=== PATIENT | female | born 1950 | race Caucasian/White ===

== ENCOUNTER 2016-10-30 22:57 | Emergency (ER) | payer MEDICARE, OTHER, SELFPAY ==
[2016-10-30 22:58] VITALS: BP 82/54; PULSE 65; RESP 18; TEMP 35.9; O2SAT 94; BMI 36.6
[2016-10-30 23:03] VITALS: BP 97/52
--- NOTE | 2016-10-30 23:08 | RAD_ITS ---
STUDY: X-RAY - LEFT WRIST REASON FOR EXAM: Female, 66 years old. Trauma. Left wrist pain TECHNIQUE: 3 view(s) of the wrist were obtained. COMPARISON: None. FINDINGS: Displaced comminuted fracture of the distal end of radius is noted.There is possibly a fracture line extending to the articular surface. There is also displaced fracture of the distal metaphysis of the ulna. The soft tissue structures are unremarkable. There is marked demineralization of the osseous structures. RAD/Wrist min 3 Views IMPRESSION: Displaced comminuted fracture of the distal end of radius is noted. There is possibly a fracture line extending to the articular surface. There is also displaced fracture of the distal metaphysis of the ulna. Electronically Signed: Matheus Monge MD at 23:43 EDT Tel , Service support ,
[2016-10-30] MEDS: 0.9% Normal Saline 1,000 ML 999 ML IV (23:22)
--- NOTE | 2016-10-31 00:22 | ED.DEP ---
ED Disposition - Plan for ED Patient: Chief Complaint: Upper Extremity Injury Instructions: ED Fx Colles Wrist Redu Requ Prescriptions: Oxycodone HCl/Acetaminophen [Percocet 5/325] 1 tablet PO Q6H PRN PRN #20 tablet PRN Reason: Pain Referrals: Kishan Espinal Chi, MD [Primary Care Provider] - Logan Portillo MD [STAFF PHYSICIAN] - As soon as possible
[2016-10-31] MEDS: Ondansetron 4 MG/2 ML Vial IV (00:33)
--- NOTE | 2016-10-31 00:43 | RAD_ITS ---
STUDY: X-RAY - LEFT WRIST REASON FOR EXAM: Female, 66 years old. post reduction left wrist TECHNIQUE: 2 view(s) of the wrist were obtained. COMPARISON: None. FINDINGS: There is improved alignment at the fracture sites of the ulna and radius. The soft tissue structures are unremarkable. RAD/Wrist 2 Views IMPRESSION: There is improved alignment at the fracture sites of the ulna and radius. Electronically Signed: Matheus Monge MD at 1:43 EDT Tel , Service support ,
[2016-10-31 01:46] VITALS: BP 113/56; PULSE 62; RESP 19; O2SAT 97
--- NOTE | 2016-10-31 04:18 | EDS_ITS ---
DATE OF SERVICE: 10/30/2016 CHIEF COMPLAINT: Wrist injury. HISTORY: This is a 66-year-old female who was out drinking alcohol tonight and dancing. She fell and injured her left wrist. She did not hit her head or injure herself in any other way. PHYSICAL EXAMINATION: VITAL SIGNS: Blood pressure is 97/52. Other vitals are unremarkable. She appears intoxicated, but she is alert and cooperative. She is pleasant. EXTREMITIES: There is an obvious deformity to the left wrist, but the skin is closed. No lacerations. Neurovascularly, she is intact in the hand, limited range of motion obviously due to the injury. No pain in the wrist or shoulder. CLINICAL COURSE AND DECISION MAKING: She was given fentanyl as well as Zofran, and x-ray of the wrist confirms a comminuted displaced fracture of the radius and ulna distally. Hematoma block was attempted using lidocaine and bupivacaine, and did achieve adequate anesthesia to do a bedside closed reduction. There was moderate improvement in the bony alignment. She was placed in an AP short arm splint. Sling was applied and she was given a prescription for oxycodone. The case was discussed with Dr. Chambers as the patient has a history of Dr. Portillo. She will call Dr. Portillo first thing in the morning for followup and does understand that she may likely require surgical repair. DISPOSITION: Discharge. DIAGNOSIS: Closed fracture of the distal ulna and radius comminuted with displacement. MD Rommel Hsieh C: Dr. Portillo T: [facility] JOB: [id number]
== END 2016-10-31 01:47 | disposition home or self-care (01) ==
PROVIDERS: Emergency Provider Emergency Medicine; Family Provider Family Medicine Geriatric Medicine; PCP Family Medicine Geriatric Medicine
DX: S52.502A Unspecified fracture of the lower end of left radius, initial encounter for closed fracture (principal); S52.692A Other fracture of lower end of left ulna, initial encounter for closed fracture; W18.30XA Fall on same level, unspecified, initial encounter; Y93.41 Activity, dancing; Y92.9 Unspecified place or not applicable; F10.129 Alcohol abuse with intoxication, unspecified; K21.9 Gastro-esophageal reflux disease without esophagitis; J44.9 Chronic obstructive pulmonary disease, unspecified; G47.33 Obstructive sleep apnea (adult) (pediatric); F41.9 Anxiety disorder, unspecified; F32.9 Major depressive disorder, single episode, unspecified; Z87.891 Personal history of nicotine dependence; Z79.899 Other long term (current) drug therapy
CPT/HCPCS: 25605; 73100; 73110; 96361; 96374; 96375; 96376; 99283; J7030; A4216; J2405

== ENCOUNTER → 2017-11-16 11:48 | Outpatient (CLI) | payer MEDICARE, OTHER, SELFPAY ==
[2017-11-16 12:26] LABS: Absolute Neutrophil Count 3.7 X10^3/uL (2.0-7.7); Basophil# 0.03 X10^3/uL; Basophil% 0.5 % (0-1); Eosinophil# 0.04 X10^3/uL; Eosinophils% 0.6 % (0-5); Hematocrit 41.4 % (37-47); Hemoglobin 13.6 g/dl (12.0-15.0); Lymphocyte % 36.4 % (19-41); Mean Corp Hgb Conc 32.9 g/gl (32-36); Mean Corpuscular Hgb 27.8 pg (27.0-32.0); Mean Corpuscular Volume 84.5 fL (81-99); Mean Platelet Vol. 10.3 fl (6.2-12.0); Monocyte% 6.1 % (0-10); Neutrophil # 3.72 X10^3/uL (2.7-7.7); Neutrophil % 56.2 % (47-70); Platelet Count 315 K/mm3 (150-450); RBC Distribution Width CV 14.7 % (11.6-14.6); RBC Distribution Width SD 44.4 fl (35.1-43.9); White Blood Count 6.6 K/mm3 (4.4-11.0)
[2017-11-16 12:31] LABS: POSITIVE COUNT NO; POSITIVE DIFFERENTIAL NO; POSITIVE MORPHOLOGY NO
[2017-11-16 12:55] LABS: AST(SGOT) 23 U/L (15-37); Alanine Aminotransfer ALT/SGPT 19 U/L (13-56); Albumin, Serum 3.7 g/dL (3.2-5.0); Alkaline Phosphatase 111 U/L (45-117); Anion Gap 5 (5-15); BUN 15 mg/dL (7-18); BUN/Creat Ratio 17.1 RATIO (10-20); Calcium,Total 9.2 mg/dL (8.5-10.1); Chloride 106 mmol/L (98-107); Creatinine, Serum 0.88 mg/dL (0.55-1.02); EST Glomerular Filtration Rate 68 mL/min (>60); Est Glom Filt Rate - Afr Amer 82 mL/min (>60); Globulin 3.6 g/dL (2.2-4.2); Glucose 90 mg/dL (74-106); Potassium 4.6 mmol/L (3.5-5.1); Protein, Total 7.3 g/dL (6.4-8.2); Sodium Level 139 mmol/L (136-145); Thyroid Stim Hormone (TSH) 2.52 uIU/mL (0.358-3.74)
[2017-11-16 12:59] LABS: Vitamin D,25 Hydroxy 43.5 ng/mL (29.95-100.01)
[2017-11-17 09:23] LABS: Hep C Antibodies <0.1 s/co ratio (0.0-0.9)
== END ==
PROVIDERS: Family Provider Family Medicine Geriatric Medicine; PCP Family Medicine Geriatric Medicine; Visit Provider Family Medicine Geriatric Medicine
DX: E55.9 Vitamin D deficiency, unspecified (principal); R53.83 Other fatigue; Z13.89 Encounter for screening for other disorder
CPT/HCPCS: 36415; 80053; 82306; 84443; 85025; 86803

== ENCOUNTER 2017-12-07 08:30 | Outpatient (RCR) | payer MEDICARE, OTHER, SELFPAY ==
--- NOTE | 2017-12-07 15:04 | BH.SGPN_ITS ---
Service Group Progress Note - Session Psychotherapy Session #2 Date Open:: 12/07/17 - 10 group members Time Started:: 10:20 Time Stopped:: 11:15 Targeted Problem #:: 1 Type of Group:: Illness Management Goal of Group:: To increase understanding of resilience and identify the factors that contribute to building resilience. Client Response/Progress/Benefit:: Client responded well to session, active group member. Client connected with the quote stating, the oak tree seems stronger, but being rigid can make you break. Client reported resilience is being able to grow and overcome difficult times. Client reflected on the activity sharing life throws a lot of stuff at you at once, but reported one can learn to be resilient. Client helped the group identify and process factors that contribute to building resilience such as living to learn and having self- awareness. Client reported acceptance is also bishop in building resilience as we can't change things, but we can move on. Client became tearful while sharing her path to acceptance with having to use a cane. The group helped client realize that acceptance is not approval. Client appeared to benefit from increased awareness of the factors of resilience and how they impact mental health. Limited progress as it is client's first day. To continue IOP to prevent decompensation and reduce depressive symptoms. Eye Contact:: Good Motor Activity:: Appropriate Appearance:: Neat Speech:: Appropriate Mood:: Anxious Affect:: Congruent - became tearful Thoughts:: Linear, No evidence of hallucinations/delusions noted Staff Interventions:: Therapist led group in an activity that would induce a chaotic environment and used the activity as a tool in discussing the various stressors people are faced with each day. Therapist facilitated group discussion about resilience and explained the factors of building resilience. Therapist led discussion about factors that contribute to resilience. Therapist provided support by using active listening and providing feedback.
--- NOTE | 2017-12-07 15:46 | BH.DR.ITP ---
Initial Treatment Plan - Patient Information Visit Information: ADMISSION DATE: EXPECTED LOS: 4-6 weeks Diagnoses:: Major depressive disorder F 33.1 - Problems/Symptoms Problem #1:: Depression Symptom:: mood, anhedonia, decreased energy, biologic disruption of sleep and appetite Problem #2:: Anxiety Symptom:: Rumination, panic
--- NOTE | 2017-12-07 15:50 | BH.SGPN ---
Service Group Progress Note - Session Psychotherapy Session #1 Date Open:: 12/07/17 Time Started:: 09:10 Time Stopped:: 10:10 Targeted Problem #:: 1 Type of Group:: Process - 10 group members Goal of Group:: The goal of today's group was to check-in with client's mood, stressors, and positives, review homework and introduce topic for the day. Client Response/Progress/Benefit:: Client reported she has been depressed and anxious for years. Client shared she goes through times in which she will take her medications consistently then when feels better stops taking her medications. Reported typically when she goes off her medications is when she starts struggling again. Client shared she knew she needed help for some time, but has been putting it off to help others but now recognizes she needs to take time to help herself. client seemed to benefit from expressing thoughts and feelings as well as support recieved by peers. First day in IOP. Eye Contact:: Fair Motor Activity:: Restless Appearance:: Casual Speech:: Appropriate Mood:: Anxious, Depressed Affect:: Congruent Thoughts:: Linear, Logical, No evidence of hallucinations/delusions noted Staff Interventions:: Therapist used open-ended questions to elicit information about client's current stressors and mood state. Therapist was supportive by using active listening and reflection.
--- NOTE | 2017-12-08 10:44 | BH.SGPN ---
Service Group Progress Note - Session Psychotherapy Session #1 Date Open:: 18 - 6 group members Time Started:: 09:05 Time Stopped:: 10:20 Targeted Problem #:: 1 Type of Group:: Process Goal of Group:: The goal of today's group was to check-in with client's mood, stressors, and positives, and introduce topic for the day. Client Response/Progress/Benefit:: Client responded well to session, open to feedback and support from peers. Client reports feeling overwhelmed today as she wants to be here but doesn't want to be here. Client shared it takes everything in her to not stay in bed all day. Client stated her bedroom is her sanctuary and while it brings her comfort, it leads to depression, avoidance, and anxiety. Client became tearful while talking about her son, mental health, and lashing out at her . Client reported struggling with guilt and feeling like she should just get over her depression. The group helped client recognize that just because mental health is invisible does not mean it is not real. Client expressed connecting with therapist's comparison of mental health to physical health conditions like diabetes. Client shared it helped her look at it different and be more accepting that she can learn to cope with it. Client appeared to benefit from challenging the mental health stigma and receiving supportive statements. Limited progress as it is client's second day. To continue IOP to prevent decompensation and promote mood stability. Eye Contact:: Good Motor Activity:: Appropriate Appearance:: Neat Speech:: Rapid Mood:: Anxious, Dysthymic Affect:: Congruent - tearful throughout Thoughts:: Circular, No evidence of hallucinations/delusions noted Staff Interventions:: Therapist used open-ended questions to elicit information about client's current stressors and mood state. Therapist was supportive by using active listening and reflection.
--- NOTE | 2017-12-08 11:45 | BH.COMM ---
Communication Note - Communication with Client Communication Note: This therapist followed up with client to build rapport and inform client that therapist will be client's individual counselor while in IOP. Client was receptive and agreed to meet for an individual session next week.
--- NOTE | 2017-12-08 14:47 | BH.SGPN_ITS ---
Service Group Progress Note - Session Psychotherapy Session #2 Date Open:: 12/08/17 Time Started:: 10:24 Time Stopped:: 11:14 Targeted Problem #:: 1 Type of Group:: Illness Management - 6 participants Goal of Group:: To increase understanding of fear and explore the negative impact fear of failure can have on mental health and decision making. Client Response/Progress/Benefit:: Client responded well to session and was an active participant throughout. She did well to connect with the group topic of Fear of Failure and discussed how she defines failure. CLient indicated that to her failure is when she does not meet her own expectations. She discussed that during times in which she feels she has failed she tends to avoid others and isolate. CLient benefitted from working to process ways in which our perception of failure can impact mental health and how to begin redefining how we view failures. Client displayed progress as she was able to openly engage with fellow participants despite this being her first full day in the program. Recommended continuing with IOP to increase insight and understanding of, as well as ability to manage mental health symptoms. Eye Contact:: Good Motor Activity:: Appropriate Appearance:: Casual Speech:: Appropriate Mood:: Anxious Affect:: Congruent Thoughts:: Linear, Logical, No evidence of hallucinations/delusions noted Staff Interventions:: Therapist facilitated discussion about fear and impact fear of failure can have. Therapist led group in an experiential activity in which client?s would fail numerous times throughout, but were given the opportunity to try again. Therapist led the processing of the activity and assisted clients with connecting how fear of failure impacted their decision making during the activity. Psychotherapy Session #3 Date Open:: 12/08/17 Time Started:: 11:21 Time Stopped:: 12:17 Targeted Problem #:: 1 Type of Group:: Functional Skills Development - 7 participants Goal of Group:: To identify the impact fear of failure has had on the group members lives and identify strategies to overcome fear of failure. Client Response/Progress/Benefit:: Client again did well to engage in session and was a positive participant throughout. She appeared to benefit from participating in the group activity as this challenged client to confront potential failure and process this with the group. She was able to reframe her negative thoughts and overcome self doubt with encouragement from fellow participants. CLient displaying progress in her willingness to try to challenge negative thinking during the activity and make connections to doing so in her daily life. Recommended continued IOP to maintain stability and continue to work on developing healthy stress management skills and boundaries. Eye Contact:: Good Motor Activity:: Appropriate Appearance:: Casual Speech:: Appropriate Mood:: Anxious, Dysthymic Thoughts:: Linear, Logical, No evidence of hallucinations/delusions noted Staff Interventions:: Therapist provided each group member with a worksheet to complete that asked questions about their experiences with fear of failure. Therapist led the processing of the worksheet, helping client?s connect how fear of failure has impacted them. Therapist provided support by using active listening and providing feedback.
== END 2017-12-08 23:59 ==
LOC: BHIOP 08:30
PROVIDERS: Family Provider Family Medicine Geriatric Medicine; PCP Family Medicine Geriatric Medicine; Visit Provider Psychiatry & Neurology Psychiatry
DX: F33.1 Major depressive disorder, recurrent, moderate (principal); F41.9 Anxiety disorder, unspecified
CPT/HCPCS: H0035; 90853

== ENCOUNTER 2017-12-09 08:59 | Outpatient (RCR) | payer MEDICARE, OTHER, SELFPAY ==
--- NOTE | 2017-12-09 11:46 | PCM.HP.BLA ---
History and Physical Identifying information Patient is a 67-year-old female who presents to the behavioral medicine [facility] with chief complaint of depression and anxiety. History is been obtained per interview with patient, discussion with staff, review of chart. Records reviewed including records from adult geriatrics [facility]. Case discussed with treatment team. History of present illness Patient is a 67-year-old female with a long-standing history of intermittent depression and anxiety. She reports her depression has overall been persistent and worse over the past 2 years associated with limitations due to femur and pelvic fracture from a fall. She feels it has been exacerbated over the past few weeks. She admits to sporadic medication compliance. She has been noncompliant with all of her medications over the past 2 weeks including her antidepressant. Her mood symptoms are likely further exacerbated by uncontrolled sleep apnea. She has multiple stressors and notes that she is providing care for her 24-year-old grandson who has special needs. She has discord with her [id number]-law. Her son is in [place] [facility]. She endorses a depressed mood with anhedonia, crying spells, decreased energy, and difficulty concentrating. She reports irritability and anger particularly toward her ga-vrehjaux-[id number]-law for her minimal involvement in caretaking of her grandson. Her appetite is been increased and she endorses emotional eating. She has a history of gastric bypass. She has been staying in bed during the day due to lack of energy and no one bothers me. She goes to bed at night at 11 PM and gets out of bed at 5:30 AM in the morning her sleep is interrupted. She has severe sleep apnea which is untreated. She has had a previous sleep study CPAP titration was unsuccessful. She requires further evaluation for BiPAP. She has ruminative anxiety about her multiple stressors she endorses panic attacks 1-2 times per week in which she feels short of breath with chest pressure and heart palpitations. She acknowledges some obsessive-compulsive traits stating that is difficult for her to throw things away. She denies suicidal or homicidal ideation. She denies symptoms consistent with psychosis. She denies history consistent with a discrete episode of milena. Past psychiatric history Denies previous history of suicide attempts or self-harm. Denies previous psychiatric hospitalization. Does not currently have a psychiatrist or therapist. Substance use history Consumes 3 alcoholic drinks per week. Quit smoking cigarettes 3 years ago. Denies illicit drug use. Past medical history Gastric bypass-lost more than 180 pounds but has gained 60 pounds back. Femur and pelvis fracture 2 years ago Fracture left arm October 2016 Denies history of seizure or head injury Allergies Vicodin causes itching Current medications None-patient currently medication noncompliant Previous medications included Cymbalta 60 mg daily, phentermine 37.5 mg daily, Ativan 1 mg and multiple vitamin supplements due to gastric bypass Family medical psychiatric history Brother completed suicide 1973 Sister with depression and anxiety 2 sons with depression Mother in 1974 from cancer and CVA Developmental social history Patient was born and raised in [facility]. She is the youngest of 4 children. 2 older brothers and 1 older sister. She graduated from high school. She completed [employer] school. 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 She currently lives in [place] with her ex- and special needs grandson age 24. She has 2 sons one age 49 and 1 age 43. One son is in [place] [facility]. Legal history none Mental status exam Vital signs reviewed per nursing database and discussed with nursing. Alert and oriented . No acute distress. Ambulatory with limping gait and cane. Appears stated age. Casually dressed and groomed. Appropriate hygiene. Cooperative with interview. Good eye contact. No psychomotor agitation or retardation. Mood depressed. Affect congruent. Speech is clear and with regular rate and rhythm. Language fluent. Thought process organized. Associations logical. Thought content significant for ruminative anxiety and themes of depression. No suicidal or homicidal ideation related or detected.. No symptoms consistent with psychosis noted or detected. Immediate recent and remote memory grossly intact. Attention and concentration are fair. Estimated intelligence and fund of knowledge average. Judgment and insight fair. Labs and testing. Lab work will be requested from Dr. Cota. Further lab work will be obtained as needed. Diagnosis Major depressive disorder recurrent moderate F 33.1 Anxiety unspecified Personality disorder Obstructive sleep apnea untreated Plan Admit to IOP as the structured setting is necessary to prevent decompensation. Risks benefits alternatives of medications discussed with patient. Discussed resistance to medications. Patient agrees to start Cymbalta 30 mg daily. Meds #30 with 1 refill. Encouraged to resume vitamins necessary due to gastric bypass. Recommend avoiding benzodiazepines given history of patient's gait instability and sleep apnea. Recommend follow-up for further sleep study and BiPAP titration. Recommend follow-up with primary care physician Dr. Cota. Recommend establishing with outpatient psychiatric providers for when IOP complete. She acknowledges understanding and is in agreement with plan. Is able to maintain safety. Agrees to seek help or emergency care if feeling unsafe to self or others.
--- NOTE | 2017-12-09 12:10 | HP.PCM_ITS ---
History and Physical Identifying information Patient is a 67-year-old female who presents to the behavioral medicine [facility] with chief complaint of depression and anxiety. History is been obtained per interview with patient, discussion with staff, review of chart. Records reviewed including records from adult geriatrics [facility]. Case discussed with treatment team. History of present illness Patient is a 67-year-old female with a long-standing history of intermittent depression and anxiety. She reports her depression has overall been persistent and worse over the past 2 years associated with limitations due to femur and pelvic fracture from a fall. She feels it has been exacerbated over the past few weeks. She admits to sporadic medication compliance. She has been noncompliant with all of her medications over the past 2 weeks including her antidepressant. Her mood symptoms are likely further exacerbated by uncontrolled sleep apnea. She has multiple stressors and notes that she is providing care for her 24-year-old grandson who has special needs. She has discord with her lm-[id number]-hj-law. Her son is in penit[facility]. She endorses a depressed mood with anhedonia, crying spells, decreased energy, and difficulty concentrating. She reports irritability and anger particularly toward her ex- [id number]-lsk for her minimal involvement in caretaking of her grandson. Her appetite is been increased and she endorses emotional eating. She has a history of gastric bypass. She has been staying in bed during the day due to lack of energy and no one bothers me. She goes to bed at night at 11 PM and gets out of bed at 5:30 AM in the morning her sleep is interrupted. She has severe sleep apnea which is untreated. She has had a previous sleep study CPAP titration was unsuccessful. She requires further evaluation for BiPAP. She has ruminative anxiety about her multiple stressors she endorses panic attacks 1 -2 times per week in which she feels short of breath with chest pressure and heart palpitations. She acknowledges some obsessive-compulsive traits stating that is difficult for her to throw things away. She denies suicidal or homicidal ideation. She denies symptoms consistent with psychosis. She denies history consistent with a discrete episode of milena. Past psychiatric history Denies previous history of suicide attempts or self-harm. Denies previous psychiatric hospitalization. Does not currently have a psychiatrist or therapist. Substance use history Consumes 3 alcoholic drinks per week. Quit smoking cigarettes 3 years ago. Denies illicit drug use. Past medical history Gastric bypass-lost more than 180 pounds but has gained 60 pounds back. Femur and pelvis fracture 2 years ago Fracture left arm October 2016 Denies history of seizure or head injury Allergies Vicodin causes itching Current medications None-patient currently medication noncompliant Previous medications included Cymbalta 60 mg daily, phentermine 37.5 mg daily, Ativan 1 mg and multiple vitamin supplements due to gastric bypass Family medical psychiatric history Brother completed suicide 1973 Sister with depression and anxiety 2 sons with depression Mother in 1974 from cancer and CVA Developmental social history Patient was born and raised in [facility]. She is the youngest of 4 children. 2 older brothers and 1 older sister. She graduated from high school. She completed [employer]. 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 She currently lives in [place] with her ex- and special needs grandson age 24. She has 2 sons one age 49 and 1 age 43. One son is in penitentiary. Legal history none Mental status exam Vital signs reviewed per nursing database and discussed with nursing. Alert and oriented . No acute distress. Ambulatory with limping gait and cane. Appears stated age. Casually dressed and groomed. Appropriate hygiene. Cooperative with interview. Good eye contact. No psychomotor agitation or retardation. Mood depressed. Affect congruent. Speech is clear and with regular rate and rhythm. Language fluent. Thought process organized. Associations logical. Thought content significant for ruminative anxiety and themes of depression. No suicidal or homicidal ideation related or detected.. No symptoms consistent with psychosis noted or detected. Immediate recent and remote memory grossly intact. Attention and concentration are fair. Estimated intelligence and fund of knowledge average. Judgment and insight fair. Labs and testing. Lab work will be requested from Dr. Cota. Further lab work will be obtained as needed. Diagnosis Major depressive disorder recurrent moderate F 33.1 Anxiety unspecified Personality disorder Obstructive sleep apnea untreated Plan Admit to IOP as the structured setting is necessary to prevent decompensation. Risks benefits alternatives of medications discussed with patient. Discussed resistance to medications. Patient agrees to start Cymbalta 30 mg daily. Meds #30 with 1 refill. Encouraged to resume vitamins necessary due to gastric bypass. Recommend avoiding benzodiazepines given history of patient's gait instability and sleep apnea. Recommend follow-up for further sleep study and BiPAP titration. Recommend follow-up with primary care physician Dr. Cota. Recommend establishing with outpatient psychiatric providers for when IOP complete. She acknowledges understanding and is in agreement with plan. Is able to maintain safety. Agrees to seek help or emergency care if feeling unsafe to self or others.
--- NOTE | 2017-12-09 12:28 | BH.DR.ITP ---
Initial Treatment Plan - Patient Information Visit Information: ADMISSION DATE: EXPECTED LOS: 4-6 weeks Diagnoses:: Major depressive disorder F 33.1 - Problems/Symptoms Problem #1:: Depression Symptom:: Mood, anhedonia, decreased energy, biologic disruption of sleep and appetite Problem #2:: Anxiety Symptom:: Rumination, panic
--- NOTE | 2017-12-09 13:45 | BH.NA_ITS ---
Physical Data - Height/Weight Height: 1.52 m Weight:: 85.275 kg Weight in Pounds: 188.0 lbs Current Medication Compliance - Medication Compliance Do you take your medication as prescribed?: No Do you need assistance with taking medication?: No Have you had side effects from medication?: No Nutritional History - Appetite Nutritional Instructions:: If client shows signs of a swallowing problem, weight change of 10 pounds or more in the last month, or is on a diabetic diet, the physician will review and request a dietitian consult, as appropriate. All unintentional weight loss will be referred to the physician for decision on need for dietitian consult. Describe your appetite:: Good Have you noticed a change in your eating habits lately?: Yes - increased appetite and weight recently Functional Assessment - Sleep Pattern Describe any problems with sleeping: Difficulty staying asleep associated with rumination and untreated JIMMY. - Activities Motor Activity:: Functional Sensory/Communication Assess - Dental Problems Do you have any dental problems?: Partial dentures - Vision Problems Do you have any vision problems?: Glasses - Hearing Problems Do you have any hearing problems?: Adequate - Communication Problems Do you have difficulty understanding what people are saying?: No Do you have trouble putting your thoughts into words or expressing what you want to say?: No Do people ever have trouble understanding what you say?: No What is your primary language?: Togolese Learning Assessment - Learning Barriers Learning Barriers:: Ready to learn Medical Problems/History - Respiratory Conditions Respiratory: Other (See comments) - JIMMY-untreated - Metabolic Conditions Metabolic: Other (See comments) - vitamin D deficiency - Gastrointestinal Conditions Gastrointestinal: Dyspepsia - GERD - Musculoskeletal Conditions Musculoskeletal: Other (See comments) - osteoporosis - Pain Assessment Do you have acute or chronic pain?: Yes - Female Reproductive Do you think you may be ?: No Have you reached menopause?: Yes Surgical History - Surgical History Have you had any surgeries? If so, list type and date:: Yes - multiple ortho surgeries d/t pathological fxs, gastric bypass in late Substance Abuse - Substance Abuse Please describe substance abuse in the last 30 days:: Client notes alcohol use of 3-4 drinks/week. She is former tobacco/nicotine user. Denies current or former illicit substance use. Caffiene use of 3+ drinks/day. Mental Status Summary - Mental Status Significant Findings/Observations on Appearance and Mood:: Client is A&Ox4, cooperative with interview. She has normal activity and makes good eye contact. Appropriate grooming and hygiene, casually dressed. Speech is clear and of regular rate and volume. Moderate depression and mild anxiety. Labile mood. Tangential associations. Racing process. Average knowledge, limited insight, impaired judgement. No symptoms of delusions. Denies hallucinations and HI. Denies SI, but does have intermittent passive thoughts of . Suicide Assessment - Suicidal Ideation Are you currently or have you been suicidal in the past?: No Physician Notification: If Active suicidal thoughts/Will not contract for safety is checked, contact physician and document in the Physician Notification section below. Assault History/Potential - History of Assault Do you have a history of assaulting someone?: No Physician Notification: If yes, notify physician and document notification date and time below. Past Psychiatric History - Treatment Hx Describe (age, circumstance, etc) any past hospitalizations: N/A Fall Risk Assessment - Age Age: 60-70 - Mental Status Mental Status: Willing & able to ask for assistance when needed - Physical Status Physical Status: No problems - Impairments Impairments: None - Elimination Elimination: Continent AND independent - Gait or Balance Gait or Balance: Walks with assistive device (e.g. cane, walker) - Hx of Falls History of falls in the past 6 months: Has fallen - Medications/Substances Medications/substances used within the past 24 hours or ordered to administer: None of the medications/substances list above - Total Score Total Points:: 4 Physician Notification - Physician Notification Physician Notified: Alysha Padilla Method of Notification: Face to Face Comments: treatment planning and condition discussion RN Summary of Impressions - Impressions Recommendations: Include psychiatric and medical issues, treatment planning recommendations, and discharge planning needs. Impressions: Psychiatric Issues: MDD, personality d/o, bipolar d/o? Impression: Medical Issues: osteoporosis, GERD, JIMMY Impressions: Treatment Planning Recommendations: high fall risk, caution with physical activities - Level of Care How do the client's current symptoms and functional deficits support need for this level of care?: Client's depressive symptoms have been decompensating gradually for approximately 2 years since the patient broke her pelvis which caused her ambulatory problems and pain. She has multiple chronic medical conditions including untreated obstructive sleep apenea and osteoporosis with pathological fractures. She has the added stressor of often having to care for her grandson who has special needs. Tasneem describes increased isolative behaviors and passive thoughts of recently. She has had a decline in her performance of ADL's and increased hoarding activity. IOP will promote gains and provide socialization while preventing further decompensation.
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
--- NOTE | 2017-12-09 14:35 | BH.COMM ---
Communication Note - Communication with Client Communication Note: This therapist followed up with client to establish treatment goals. Client reported she would like to maintain medication compliance, increase socialization, and reduce mental health symptoms.
--- NOTE | 2017-12-09 14:39 | BH.SGPN ---
Service Group Progress Note - Session Psychotherapy Session #1 Date Open:: 12/09/17 Time Started:: 09:08 Time Stopped:: 09:59 Targeted Problem #:: 1 Type of Group:: Process Goal of Group:: The goal of today's group was to check-in with client's mood, stressors, and positives, review homework and introduce topic for the day. Client Response/Progress/Benefit:: Client reported this morning her grandson was being difficult because he did not want to go home with his mother this weekend. Client shared when she called her grandson's mother to let her know how the grandson was acting this morning the grandson's mother shown no empathy or care. Client reported her grandson's mother's reaction resulted in client feeling extremely angry and going off on grandson's mother. Client expressed anger towards her grandson's mother for not being there for her grandson did not always relying on client to take care of the grandson. Throughout checking client had a range of emotions including mad, angry, sad, tearful. Seemed to benefit from expressing thoughts and emotions as well as receiving support from peers. Eye Contact:: Fair Motor Activity:: Restless Appearance:: Casual Speech:: Rambling Mood:: Anxious, Irritable, Depressed Affect:: Labile Thoughts:: Linear, Circular, No evidence of hallucinations/delusions noted Staff Interventions:: Therapist used open-ended questions to elicit information about client's current stressors and mood state. Therapist was supportive by using active listening and reflection.
--- NOTE | 2017-12-09 14:39 | BH.MTP ---
[facility] - Patient Information Program Physician:: Alysha Padilla Primary Therapist:: Sandie Contreras - Psychiatric Diagnoses Psychiatric Diagnoses:: Major depressive disorder; Anxiety unspecified; Personality disorder Diagnosis Code(s):: F 33.1 - Estimated LOS Estimated LOS (in weeks):: 6 Problem/Goal #1 - Problem/Goal #1 Stated Goal:: Client will decrease depressive symptoms, isolation, and agitation due to Major Depressive Disorder through Intensive Outpatient Program. Description of Barriers: Client reports family discord which impacts client's emotional well-being and causes client significant stress and anger. Client shared having a difficult time setting boundaries and communicating her needs which has led to client feeling overwhelmed. Client reports struggling to accept things that are out of her control and has verbalized unrealistic expectations for her mental health. Client has physical limitations and health concerns such as uncontrolled sleep apnea. In the past client has not been medication compliant and reports procrastinating with medical appointments which could have an impact her progress and health. Functional Impact: At admission client reported a long-standing history of depression and anxiety. Client reports depressive symptoms have been worse over the past two years due to physical limitations caused by a femur and pelvic fracture. Client reports numerous stressors including family discord and caregiving for her 24-year-old grandson. At admission client endorsed a depressed mood with anhedonia, crying spells, decreased energy, and isolation. Clients isolation, avoidance, and procrastination impact her mental and physical health as they lead to lack of follow through with appointments. Client shared increased irritability and anger outbursts which client describes as I get nasty. Client reports increased appetite caused by emotional eating and reports consumption of 3 alcoholic beverages per week. Client states poor sleep due to uncontrolled sleep apnea. Client has ruminative anxiety and endorses panic attacks 1-2 times per week in which she feels short of breath with chest pressure and heart palpitations. Client acknowledges some obsessive-compulsive traits including hoarding, client stated I just cant throw things away. Client reports her symptoms impact her ability to function at her baseline, complete ADLs, and engage in activities she once enjoyed. Goal Relevant Strengths/Supports: Client is compassionate, a caregiver, and resilient. Client reports having a strong support system in her live-in ex- and is highly active with [employer]. Client has a good sense of humor, reports trying to think positively, and is receptive to mental health help. Client appears engaged in her treatment and reports motivation to get better which can serve as a protective factor. - Objectives Objective #1 Stated Objective: Client will identify close relationships and create 2-3 ways to establish healthier boundaries to better manage these relationships with children and other family members that exacerbate mental health symptoms. Interventions: Through group and individual sessions, client will learn about healthy boundaries and how they impact mental health. Therapist will discuss strategies with client to improve boundaries and promote mental wellness. Therapist will utilize decisional balance worksheets to help client increase awareness of how client's personal boundaries are impacting functioning. Discharge Criteria: Client will have accomplished this goal when can report utilizing at least 2 strategies to promote healthy boundaries and report improved interpersonal relationships. Target Date: 01/18/18 Review Date: 01/06/18 Status: open Objective #2 Stated Objective: Client will identify 2-3 triggers for depression and negative self-talk and 2-3 coping strategies to use when feeling overwhelmed to prevent isolation. Interventions: Through groups and individual therapy, client will be provided with education on cognitive distortions, mistaken beliefs, and identifying and combating negative self-talk. Therapist will help client explore connection between thoughts, feelings, and actions. Therapist will also help client gain more awareness of client's personal triggers and warning signs for depressive while teaching client healthy coping skills. Discharge Criteria: Client will have accomplished this goal when can report 2-3 triggers for depression and negative self-talk and state utilizing at least 2 coping strategies to manage these symptoms and prevent isolation. Target Date: 01/18/18 Review Date: 01/06/18 Status: open Problem/Goal #2 - Problem/Goal #2 Stated Goal:: Client will reduce overall frequency, intensity, and duration of anxiety and panic so that daily functioning is not impaired. Description of Barriers: Client reports family discord which impacts client's emotional well-being and causes client significant stress and anger. Client shared having a difficult time setting boundaries and communicating her needs which has led to client feeling overwhelmed. Client reports struggling to accept things that are out of her control and has verbalized unrealistic expectations for her mental health. Client has physical limitations and health concerns such as uncontrolled sleep apnea. In the past client has not been medication compliant and reports procrastinating with medical appointments which could have an impact her progress and health. Functional Impact: At admission client reported a long-standing history of depression and anxiety. Client reports depressive symptoms have been worse over the past two years due to physical limitations caused by a femur and pelvic fracture. Client reports numerous stressors including family discord and caregiving for her 24-year-old grandson. At admission client endorsed a depressed mood with anhedonia, crying spells, decreased energy, and isolation. Clients isolation, avoidance, and procrastination impact her mental and physical health as they lead to lack of follow through with appointments. Client shared increased irritability and anger outbursts which client describes as I get nasty. Client reports increased appetite caused by emotional eating and reports consumption of 3 alcoholic beverages per week. Client states poor sleep due to uncontrolled sleep apnea. Client has ruminative anxiety and endorses panic attacks 1-2 times per week in which she feels short of breath with chest pressure and heart palpitations. Client acknowledges some obsessive-compulsive traits including hoarding, client stated I just cant throw things away. Client reports her symptoms impact her ability to function at her baseline, complete ADLs, and engage in activities she once enjoyed. Goal Relevant Strengths/Supports: Client is compassionate, a caregiver, and resilient. Client reports having a strong support system in her live-in ex- and is highly active with [employer]. Client has a good sense of humor, reports trying to think positively, and is receptive to mental health help. Client appears engaged in her treatment and reports motivation to get better which can serve as a protective factor. - Objectives Objective #1 Stated Objective: Client will identify 2-3 anxiety triggers and 2 coping skills to use when feeling anxious. Interventions: Therapist will assist client in exploring what triggers anxiety and teach client coping strategies to effectively manage anxiety symptoms. Therapist will educate client on the various ways anxiety impacts the body and help client utilize calming strategies to manage symptoms. Discharge Criteria: Client will have met this goal when can identify at least 2 triggers to anxiety and verbalize two healthy ways to cope with feelings of anxiety. Target Date: 01/18/18 Review Date: 01/06/18 Status: open
--- NOTE | 2017-12-09 14:44 | BH.MTP_ITS ---
[facility] - Patient Information Program Physician:: Alysha Padilla Primary Therapist:: Sandie Contreras - Psychiatric Diagnoses Psychiatric Diagnoses:: Major depressive disorder; Anxiety unspecified; Personality disorder Diagnosis Code(s):: F 33.1 - Estimated LOS Estimated LOS (in weeks):: 6 Problem/Goal #1 - Problem/Goal #1 Stated Goal:: Client will decrease depressive symptoms, isolation, and agitation due to Major Depressive Disorder through Intensive Outpatient Program. Description of Barriers: Client reports family discord which impacts client's emotional well-being and causes client significant stress and anger. Client shared having a difficult time setting boundaries and communicating her needs which has led to client feeling overwhelmed. Client reports struggling to accept things that are out of her control and has verbalized unrealistic expectations for her mental health. Client has physical limitations and health concerns such as uncontrolled sleep apnea. In the past client has not been medication compliant and reports procrastinating with medical appointments which could have an impact her progress and health. Functional Impact: At admission client reported a long-standing history of depression and anxiety. Client reports depressive symptoms have been worse over the past two years due to physical limitations caused by a femur and pelvic fracture. Client reports numerous stressors including family discord and caregiving for her 24-year-old grandson. At admission client endorsed a depressed mood with anhedonia, crying spells, decreased energy, and isolation. Client?s isolation, avoidance, and procrastination impact her mental and physical health as they lead to lack of follow through with appointments. Client shared increased irritability and anger outbursts which client describes as ?I get nasty.? Client reports increased appetite caused by ?emotional eating ? and reports consumption of 3 alcoholic beverages per week. Client states poor sleep due to uncontrolled sleep apnea. Client has ruminative anxiety and endorses panic attacks 1-2 times per week in which she feels short of breath with chest pressure and heart palpitations. Client acknowledges some obsessive- compulsive traits including hoarding, client stated ?I just can?t throw things away.? Client reports her symptoms impact her ability to function at her baseline, complete ADLs, and engage in activities she once enjoyed. Goal Relevant Strengths/Supports: Client is compassionate, a caregiver, and resilient. Client reports having a strong support system in her live-in ex- and is highly active with [employer]. Client has a good sense of humor, reports trying to think positively, and is receptive to mental health help. Client appears engaged in her treatment and reports motivation to get better which can serve as a protective factor. - Objectives Objective #1 Stated Objective: Client will identify close relationships and create 2-3 ways to establish healthier boundaries to better manage these relationships with children and other family members that exacerbate mental health symptoms. Interventions: Through group and individual sessions, client will learn about healthy boundaries and how they impact mental health. Therapist will discuss strategies with client to improve boundaries and promote mental wellness. Therapist will utilize decisional balance worksheets to help client increase awareness of how client's personal boundaries are impacting functioning. Discharge Criteria: Client will have accomplished this goal when can report utilizing at least 2 strategies to promote healthy boundaries and report improved interpersonal relationships. Target Date: 01/18/18 Review Date: 01/06/18 Status: open Objective #2 Stated Objective: Client will identify 2-3 triggers for depression and negative self-talk and 2-3 coping strategies to use when feeling overwhelmed to prevent isolation. Interventions: Through groups and individual therapy, client will be provided with education on cognitive distortions, mistaken beliefs, and identifying and combating negative self-talk. Therapist will help client explore connection between thoughts, feelings, and actions. Therapist will also help client gain more awareness of client's personal triggers and warning signs for depressive while teaching client healthy coping skills. Discharge Criteria: Client will have accomplished this goal when can report 2-3 triggers for depression and negative self-talk and state utilizing at least 2 coping strategies to manage these symptoms and prevent isolation. Target Date: 01/18/18 Review Date: 01/06/18 Status: open Problem/Goal #2 - Problem/Goal #2 Stated Goal:: Client will reduce overall frequency, intensity, and duration of anxiety and panic so that daily functioning is not impaired. Description of Barriers: Client reports family discord which impacts client's emotional well-being and causes client significant stress and anger. Client shared having a difficult time setting boundaries and communicating her needs which has led to client feeling overwhelmed. Client reports struggling to accept things that are out of her control and has verbalized unrealistic expectations for her mental health. Client has physical limitations and health concerns such as uncontrolled sleep apnea. In the past client has not been medication compliant and reports procrastinating with medical appointments which could have an impact her progress and health. Functional Impact: At admission client reported a long-standing history of depression and anxiety. Client reports depressive symptoms have been worse over the past two years due to physical limitations caused by a femur and pelvic fracture. Client reports numerous stressors including family discord and caregiving for her 24-year-old grandson. At admission client endorsed a depressed mood with anhedonia, crying spells, decreased energy, and isolation. Client?s isolation, avoidance, and procrastination impact her mental and physical health as they lead to lack of follow through with appointments. Client shared increased irritability and anger outbursts which client describes as ?I get nasty.? Client reports increased appetite caused by ?emotional eating ? and reports consumption of 3 alcoholic beverages per week. Client states poor sleep due to uncontrolled sleep apnea. Client has ruminative anxiety and endorses panic attacks 1-2 times per week in which she feels short of breath with chest pressure and heart palpitations. Client acknowledges some obsessive- compulsive traits including hoarding, client stated ?I just can?t throw things away.? Client reports her symptoms impact her ability to function at her baseline, complete ADLs, and engage in activities she once enjoyed. Goal Relevant Strengths/Supports: Client is compassionate, a caregiver, and resilient. Client reports having a strong support system in her live-in ex- and is highly active with [employer]. Client has a good sense of humor, reports trying to think positively, and is receptive to mental health help. Client appears engaged in her treatment and reports motivation to get better which can serve as a protective factor. - Objectives Objective #1 Stated Objective: Client will identify 2-3 anxiety triggers and 2 coping skills to use when feeling anxious. Interventions: Therapist will assist client in exploring what triggers anxiety and teach client coping strategies to effectively manage anxiety symptoms. Therapist will educate client on the various ways anxiety impacts the body and help client utilize calming strategies to manage symptoms. Discharge Criteria: Client will have met this goal when can identify at least 2 triggers to anxiety and verbalize two healthy ways to cope with feelings of anxiety. Target Date: 01/18/18 Review Date: 01/06/18 Status: open
--- NOTE | 2017-12-13 16:01 | BH.SGPN ---
Service Group Progress Note - Session Psychotherapy Session #1 Date Open:: 12/13/17 Time Started:: 09:07 Time Stopped:: 10:12 Targeted Problem #:: 1 Type of Group:: Process - 4 participants Goal of Group:: The goal of today's group was to check-in with clients and review homework from previous group session. Client Response/Progress/Benefit:: Client receptive to group and did well to remain an actively engaged participant throughout. She discussed having had a particularly difficult weekend as she had to practice adhering to boundaries that were difficult to maintain. Client explained that her son had been transferred to the local [facility] and was pressuring her to pay for his bail. She shared that she had initially done well to hold firm about not doing so but began to feel guilty and eventually gave in. Client shared that the stress and guilt related to her sons struggles with addiction led client to isolate and stay in bed much of the weekend. She shared knowing rationally that she cannot control his behaviors or fix his problems but struggles with not taking on the responsibility of trying to do so. Client benefitted from the support provided by fellow group participants and encouragement that as she learns the skills for managing emotions and maintaining boundaries she will begin so see improvements in mental health. Client displaying progress in her willingness to try applying thought challenging skills but struggles with consistency and emotion regulation. She is recommended continued IOP to decrease sx of depression and anxiety in order to increase ability to function at baseline. Eye Contact:: Good Motor Activity:: Appropriate Appearance:: Casual Speech:: Appropriate Mood:: Anxious, Depressed Affect:: Congruent Thoughts:: Linear, Logical, No evidence of hallucinations/delusions noted Staff Interventions:: Therapist facilitated the group session by asking open ended questions that encouraged group members to discuss their weekend and current mood state. Assisted group members in the review of their homework from previous group session.
--- NOTE | 2017-12-14 17:15 | BH.COMM ---
Communication Note - Communication with Client Communication Note: Client called to cancel her scheduled IOP session today. Client reports plan to attend group tomorrow 12/15/17.
--- NOTE | 2017-12-15 15:11 | BH.MDN ---
Multi-Disciplinary Note - Note 60-min Individual Time Started:: 08:54 Date: 12/15/17 Purpose of session/treatment goals addressed:: The purpose of this session was to gather information on client's current stressors, symptoms, and support network. Another goal was to discuss the importance of emotions, review coping skills, and establish weekly goals. Other topics included: boundaries, communication, and mental health education. Eye Contact:: Good Motor Activity:: Appropriate Appearance:: Neat Speech:: Rambling Mood:: Anxious, Dysthymic Affect:: Congruent - holding back tears Thoughts:: Linear, Logical, No evidence of hallucinations/delusions noted Staff Interventions:: Therapist used active listening and open-ended questions to explore client's current stressors, symptoms, and support network. Therapist provided emotional validation and a safe place for client to verbalize her emotions. Therapist helped client process the purpose of emotions and challenge client's view of what it means to have mental health issues. Therapist reviewed coping skills with client to promote emotional regulation and release as well as helped client set weekly goals. Therapist and client discussed the importance of boundaries, communication, and self-care. Client Response:: Client responded well to session, reporting feeling optimistic despite a crazy morning. Client shared she has been trying to improve her ability to control emotions so that client does not get nasty with the people in her life. Client stated she continues to have problems with understanding why she is depressed as she shared I have no reason to be sad, I'm blessed. Client and therapist discussed mental health and how it does not discriminate against age, gender, socioeconomic status, or how good a person has it. Client shared examples of times when she was patient with others and realizes she is not patient with herself, instead she self-blames in regards to mental health which increases guilt and causes client to suppress emotions. Client receptive to the idea of taking care of her emotions much like she would care for someone else. Client is to try and express her emotions without judgement throughout the day to avoid stockpiling. Client and therapist reviewed strategies for emotional release and mindfulness. Client reported she also continues to struggle with coping with things out of client's control such as her son and [id number]. Client stated she is torn with setting boundaries and communicate for fear of what they will do and say to her. Client processed her fears and with therapist elicitation recognized avoidance will not benefit client in the long run. Client shared she has been doing well with her goal of not going back to sleep after group and she shared plans to run errands after session to reduce isolation. Risks/Concerns:: Client denies suicidal ideation, plan, and intent as of 12/15/17. Client reports she would never even think of harming herself as her brother commited suicide and client does not want to put her family through that. Progress Toward Goals/Plan:: Client making progress towards treatment goals as shown by her report of utilizing coping skills to try and manage emotions. However, client continues to report unrealistic expectations of self and reports belief there is no reason for her to be depressed. Client can continue to benefit from ongoing mental health education and self-compassion to promote effective emotional release. Client also continues to report feeling anxious, poor boundaries, and isolation. Client to continue IOP to promote mood stability and prevent decompensation. Time Stopped:: 10:05
--- NOTE | 2017-12-16 17:26 | BH.SGPN ---
Service Group Progress Note - Session Psychotherapy Session #2 Date Open:: 12/16/17 group members Time Started:: 10:30 Time Stopped:: 11:20 Targeted Problem #:: 1 Type of Group:: Illness Management Goal of Group:: The goal of this session was to increase self-awareness of what is holding them back from moving towards mental wellness and discuss importance of taking action in their treatment. Client Response/Progress/Benefit:: Client responded well to session, active participant. Client appeared to connect with the quote sharing you have to have the will to do it or it won't happen. Client identified things in her life that are holding her back from moving towards mental wellness such as my family's division, procrastination, ex-daughter in-law, and her rollercoaster of emotions. Client stated she wants to take back control over these stressors as they are causing emotional distress and depression. Client appeared to benefit from identifying stressors and symptoms holding her back and participating in a symbolic activity. Client to continue IOP to promote mood stability and prevent decompensation. Eye Contact:: Good Motor Activity:: Appropriate Appearance:: Casual Speech:: Appropriate Mood:: Anxious Affect:: Congruent Thoughts:: Linear, Logical, No evidence of hallucinations/delusions noted Staff Interventions:: Therapist facilitated discussion about what it means to take action in achieving mental health wellness. Therapist led activity in which clients were asked to identify the symptoms and things that they would like to take back control over. Therapist provided support by using active listening. Psychotherapy Session #3 Date Open:: 12/16/17 group members Time Started:: 11:30 Time Stopped:: 12:25 Targeted Problem #:: 1 Type of Group:: Functional Skills Development Goal of Group:: The goal of this session was to create a 30 day action plan that provides small goals that work towards taking action on one thing they would like to take back control over. Client Response/Progress/Benefit:: Client responded well to session, active participant. Client created a 30 day action plan to promote emotional wellness and reduce isolation. Client's goal for the next 30 days is no more procrastination and going back to bed. Client shared this plan will benefit client as she will be more social, motivation, and less depressed if she follows it. Client's steps included setting daily goals, reaching out to at least one support a day, and not going back to her bedroom once she wakes up. Client appeared to benefit from identifying a 30-day goal that will improve her mental wellness. Progress noted as client reports less isolation, but can continue to benefit from increased use of healthy coping skills to reduce anxiety and depression. Eye Contact:: Good Motor Activity:: Appropriate Appearance:: Neat Speech:: Appropriate Mood:: Anxious Affect:: Congruent Thoughts:: Linear, Logical, No evidence of hallucinations/delusions noted Staff Interventions:: Therapist provided materials and guidance to help clients create a 30 day action plan. Therapist provided support by giving feedback and using active listening.
--- NOTE | 2017-12-16 17:42 | BH.SGPN ---
Service Group Progress Note - Session Psychotherapy Session #1 Date Open:: 12/16/17 Time Started:: 09:04 Time Stopped:: 10:24 Targeted Problem #:: 1 Type of Group:: Process - 8 participants Goal of Group:: The goal of today's group was to check-in with client's mood, stressors, and positives, review homework and introduce topic for the day. Client Response/Progress/Benefit:: Client responded well to session and appeared to benefit from the support of the group environment as client indicated having a difficult morining. Client shared feeling both physically and emotionally enxhausted. She discussed experiencing difficulties with getting her grandson ready for workshop this morning. CLient went on to share going to her nephew's granduation dinner and feeling as though she had to force herself to attend. She described that although getting the motivation to attend had been difficult, Client was glad she had done so and shared you have to push yourself sometimes. Client making progress in her ability to challenge her desire to isolate and is using positive self talk strategies on a more frequent basis. CLient continues to struggle with distorted thinking patterns and unhealthy boundaries at times. She is recommended continued [facility] to work on improving emotion regulation and effective communication strategies to improve ability for her supports to aid client in sx management. Eye Contact:: Good Motor Activity:: Appropriate Appearance:: Casual Speech:: Appropriate Mood:: Anxious, Depressed Affect:: Congruent Thoughts:: Linear, Logical, No evidence of hallucinations/delusions noted Staff Interventions:: Therapist used open-ended questions to elicit information about client's current stressors and mood state. Therapist was supportive by using active listening and reflection.
--- NOTE | 2017-12-19 16:26 | BH.SGPN_ITS ---
Service Group Progress Note - Session Psychotherapy Session #2 Date Open:: 12/13/17 Time Started:: 10:17 Time Stopped:: 11:07 Targeted Problem #:: 1 Type of Group:: Illness Management Goal of Group:: The goal of group was to increase understanding of goals and goal setting and practice a method of goal setting. Client Response/Progress/Benefit:: Client contributed to discussion and listened attentively to others. Client reported goals are important because without them she feels lost. Client shared she struggles with following through with her goals and sometimes just doesn?t feel like setting any goals. Client stated she tends to set unrealistic goals which leads to disappointment and depressive symptoms when she is unable to complete her goal. Client recognizes setting goals are important and seemed to benefit from learning about SMART goal setting. Eye Contact:: Good Motor Activity:: Appropriate Appearance:: Casual Speech:: Appropriate Mood:: Euthymic Affect:: Congruent Thoughts:: Linear, Logical, No evidence of hallucinations/delusions noted Staff Interventions:: Therapist facilitated group discussion about goals and goal setting. Therapist taught group the acronym SMART (Specific, Measurable, Achievable, Realistic, Timely) as a tool to help with goal setting. Therapist led the group in an activity to be used as a method of practicing goal setting. Therapist guided the group through the SMART acronym as group was participating in activity. Therapist assisted group members with connecting the importance of making small, realistic goals. Psychotherapy Session #3 Date Open:: 12/13/17 Time Started:: 11:20 Time Stopped:: 12:15 Targeted Problem #:: 1 Type of Group:: Functional Skills Development Goal of Group:: The goal of group was to identify a goal for the weekend, explore the potential barriers to achieving that set goal, and identify strategies to overcome barriers. Client Response/Progress/Benefit:: Client active participant as evidenced by contributing during group, listening to others, and engaging in challenge activity. Client identified her SMART goal to be: After her grandson leaves for workshop she will complete her daily self care and not go back to bed. Client reported this will benefit her because she will feel better about herself, be productive, and others will see her progress. Client identified barriers to completing the goal to include: feeling tired, apathy, and procrastination. Client shared use the 5 senses, being more positive, including it in her schedule and going to bed at a decent time as strategies to off set the potential barriers. Client seemed to benefit from identifying a small goal and what strategies that can help her be successful with completing the goal. Eye Contact:: Fair Motor Activity:: Appropriate Appearance:: Casual Speech:: Appropriate Mood:: Dysthymic Affect:: Congruent Thoughts:: Linear, Logical, No evidence of hallucinations/delusions noted Staff Interventions:: Therapist facilitated group activity in which group members identified a goal to work on over the next week. Therapist asked group members to identify barriers to achieving identified goal and strategies to help them achieve their goal. Therapist led group in processing their goal maps , assisting clients with establishing SMART goals. Therapist provided support by using reflective listening.
--- NOTE | 2017-12-20 07:14 | BH.MDN_ITS ---
Multi-Disciplinary Note - Note 60-min Individual Time Started:: 08:54 Date: 12/15/17 Purpose of session/treatment goals addressed:: The purpose of this session was to gather information on client's current stressors, symptoms, and support network. Another goal was to discuss the importance of emotions, review coping skills, and establish weekly goals. Other topics included: boundaries, communication, and mental health education. Eye Contact:: Good Motor Activity:: Appropriate Appearance:: Neat Speech:: Rambling Mood:: Anxious, Dysthymic Affect:: Congruent - holding back tears Thoughts:: Linear, Logical, No evidence of hallucinations/delusions noted Staff Interventions:: Therapist used active listening and open-ended questions to explore client's current stressors, symptoms, and support network. Therapist provided emotional validation and a safe place for client to verbalize her emotions. Therapist helped client process the purpose of emotions and challenge client's view of what it means to have mental health issues. Therapist reviewed coping skills with client to promote emotional regulation and release as well as helped client set weekly goals. Therapist and client discussed the importance of boundaries, communication, and self-care. Client Response:: Client responded well to session, reporting feeling optimistic despite a crazy morning. Client shared she has been trying to improve her ability to control emotions so that client does not get nasty with the people in her life. Client stated she continues to have problems with understanding why she is depressed as she shared I have no reason to be sad, I' m blessed. Client and therapist discussed mental health and how it does not discriminate against age, gender, socioeconomic status, or how good a person has it. Client shared examples of times when she was patient with others and realizes she is not patient with herself, instead she self-blames in regards to mental health which increases guilt and causes client to suppress emotions. Client receptive to the idea of taking care of her emotions much like she would care for someone else. Client is to try and express her emotions without judgement throughout the day to avoid stockpiling. Client and therapist reviewed strategies for emotional release and mindfulness. Client reported she also continues to struggle with coping with things out of client's control such as her son and [id number]. Client stated she is torn with setting boundaries and communicate for fear of what they will do and say to her. Client processed her fears and with therapist elicitation recognized avoidance will not benefit client in the long run. Client shared she has been doing well with her goal of not going back to sleep after group and she shared plans to run errands after session to reduce isolation. Risks/Concerns:: Client denies suicidal ideation, plan, and intent as of . Client reports she would never even think of harming herself as her brother commited suicide and client does not want to put her family through that. Progress Toward Goals/Plan:: Client making progress towards treatment goals as shown by her report of utilizing coping skills to try and manage emotions. However, client continues to report unrealistic expectations of self and reports belief there is no reason for her to be depressed. Client can continue to benefit from ongoing mental health education and self-compassion to promote effective emotional release. Client also continues to report feeling anxious, poor boundaries, and isolation. Client to continue IOP to promote mood stability and prevent decompensation. Time Stopped:: 10:05
--- NOTE | 2017-12-20 10:16 | BH.SGPN ---
Service Group Progress Note - Session Psychotherapy Session #1 Date Open:: 12/20/17 - 4 group members Time Started:: 09:05 Time Stopped:: 10:00 Targeted Problem #:: 1 Type of Group:: Process Goal of Group:: The goal of today's group was to check-in with client's mood, stressors, and positives, and introduce topic for the day. Client Response/Progress/Benefit:: Client responded well to session, receptive to support given by peers. Client reports feeling like an emotional rollercoaster today as client continues to struggle in dealing with her ex [id number]'s involvement with her grandson. Client shared she becomes nasty and angry because client does not understand why her ex [id number] does not want to be more involved. Client shared she also had a bedroom day on Tuesday, during which time client isolated and avoided. Client reported feeling ashamed for doing this, but with group support client was more self-compassionate. Client reported the weekend wasn't all bad as client got to spend time with family and friends on Tuesday. Client reports plan to volunteer at the [facility] to help keep client busy and improve mood. Client appeared to benefit from challenging self-blame and receiving supportive statements. Progress noted in client's reduced isolation, as shown by client's report of not wanting to come to [facility] today, but coming anyway. Client can continue to benefit from improved boundaries and increased mood stability. Eye Contact:: Good Motor Activity:: Appropriate Appearance:: Neat Speech:: Rambling Mood:: Anxious, Depressed Affect:: Congruent - tearful Thoughts:: Linear, No evidence of hallucinations/delusions noted Staff Interventions:: Therapist used open-ended questions to elicit information about client's current stressors and mood state. Therapist was supportive by using active listening and reflection.
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
--- NOTE | 2017-12-21 16:50 | BH.SGPN ---
Service Group Progress Note - Session Psychotherapy Session #1 Date Open:: 12/21/17 Time Started:: 09:05 Time Stopped:: 10:17 Targeted Problem #:: 1 Type of Group:: Process - 7 participants Goal of Group:: The goal of today's group was to check-in with client's mood, stressors, and positives, review homework and introduce topic for the day. Client Response/Progress/Benefit:: Client and active participant throughout and willing to engage in session. She discussed feeling increasingly anxious in the last few days as she has begun to have intrusive and ruminating thoughts related to her grandson client explained that she is feeling increasingly worried about his well-being anything were to ever happened to her. Indicated that although she is his primary caregiver she has no legal rights to him therefore has no ability to make any term decisions regarding his well-being. Client responded well and appeared to benefit from supportive group environment. She is displaying progress in her ability to focus on some of the positives and begin implementing thought challenging and reframing strategies. Client indicated that although she cannot control what may happen in the future he is able to control the quality of care he receives today. Client would benefit from continued IOP in order to further promote ways to challenge distorted thinking patterns as well as improve client boundary setting and implementation of healthy skills learned. Eye Contact:: Good Motor Activity:: Appropriate Appearance:: Casual Speech:: Appropriate Mood:: Anxious, Depressed Affect:: Congruent Thoughts:: Linear, Logical, No evidence of hallucinations/delusions noted Staff Interventions:: Therapist used open-ended questions to elicit information about client's current stressors and mood state. Therapist was supportive by using active listening and reflection.
--- NOTE | 2017-12-22 11:43 | BH.SGPN_ITS ---
Service Group Progress Note - Session Psychotherapy Session #2 Date Open:: 12/21/17 Time Started:: 10:25 Time Stopped:: 11:15 Targeted Problem #:: 1 Type of Group:: Illness Management Goal of Group:: To increase understanding how positive and negative forces in life can impact balance in life. Client Response/Progress/Benefit:: Client contributed to discussion and listened attentively to others. When processing quote she reported she recognizes it is important to allow supports to help however finds it extremely challenging to accept that help. Client agreed with others that personal growth does not occur without putting forth effort to make changes. Client seemed to benefit from increasing awareness of impact positive and negative forces can have them once progress. Eye Contact:: Fair Motor Activity:: Appropriate Appearance:: Casual Speech:: Appropriate Mood:: Dysthymic Affect:: Constricted Thoughts:: Linear, Logical, No evidence of hallucinations/delusions noted Staff Interventions:: Therapist facilitated group discussion about the various forces of life and helped clients connect the impact they have on balance in life. Therapist led group in an experiential activity in which group members had to work together to balance an object and move it to a designated location. Therapist utilized the activity as a tool to process the challenges connected with balancing various forces. Psychotherapy Session #3 Date Open:: 12/21/17 Time Started:: 11:22 Time Stopped:: 12:05 Targeted Problem #:: 1 Type of Group:: Functional Skills Development Goal of Group:: To identify positive and negative forces in life and identify which forces are helping stability and which forces are contributing to instability. Client Response/Progress/Benefit:: Client contributed to discussion, worked cooperatively with peers, and listened attentively to others. Client identified having a positive attitude was one positive forces that help the group be successful during activity. Client identified her personal positive forces to include: Coming to group, medications, family, jazmine, and meditation. Client shared negative force to include: Frustration, holding onto anger, toxic people, and worrying about things that are out of her control. Client reported she does not feel her positive forces are balance currently which contributes to her feeling not completely stable on a consistent basis. She seemed to benefit from increasing awareness of her positive forces as well as thinking about how she can either decrease the strength of her negative forces or increase the strength of her positive forces. Eye Contact:: Good Motor Activity:: Appropriate Appearance:: Casual Speech:: Appropriate Mood:: Dysthymic Affect:: Constricted Thoughts:: Linear, Logical, No evidence of hallucinations/delusions noted Staff Interventions:: Therapist provided group with an example of a scenario of a person and the individual???s positive and negative forces. Therapist provided each group member with a worksheet in which they were to identify five positive and five negative forces in their life. Therapist processed the activity with the group, helping others connect the impact certain forces have on their life balance.
--- NOTE | 2017-12-22 16:15 | BH.SGPN_ITS ---
Service Group Progress Note - Session Psychotherapy Session #2 Date Open:: 12/20/17 Time Started:: 10:08 Time Stopped:: 11:13 Targeted Problem #:: 1 Type of Group:: Illness Management - 5 participants Goal of Group:: To increase understanding of importance of boundaries and the different ways of setting boundaries (permeable, rigid, and flexible). Client Response/Progress/Benefit:: Client an active participant throughout and indicated connecting well with the group topic of boundaries. Client expressed that this specifically relates to her as she has recently been struggling to maintain the boundaries she is trying to establish. Client asked the group how they they are able to maintain their own bundaries. She benefitted from gaining insight in the fact that she is not alone in her boundary setting struggles. Client provided personal examples of how unhealthy boundaries have negatively impacted her mental health in the past. She was receptive of the feedback and support provided by the group. Client would benefit from continued IOP treatment to continue woorking on decreasing sx of depression and anxiety as well as address client distorted thinking patterns and expectations of self. Eye Contact:: Good Motor Activity:: Appropriate Appearance:: Casual Speech:: Appropriate Mood:: Dysthymic Affect:: Congruent Thoughts:: Linear, Logical, No evidence of hallucinations/delusions noted Staff Interventions:: Therapist facilitated group discussion about defining boundaries. Therapist led discussion about importance of boundaries, assisting group members with identifying the impact of healthy and unhealthy boundaries. Therapist educated the group about the three different ways of setting boundaries and led discussion about each one. Therapist assisted clients with identifying the costs and benefits to the three different styles of boundary setting and how each style can impact mental health as well as relationships. Psychotherapy Session #3 Date Open:: 12/20/17 Time Started:: 11:19 Time Stopped:: 12:15 Targeted Problem #:: 1 Type of Group:: Functional Skills Development - 4 participants Goal of Group:: Increase awareness of current boundary style, identifying impact current way of setting boundaries has on mental health as well as relationships. Client Response/Progress/Benefit:: Client was an active participant throughout and did well to engage in both the activity and discussion portions of the session. CLient was able to explain the abrstract representation of her own personal boundaries that she had created and indicated drawing two hearts. Client shared that one heart was the way she wishes her boundaries were and how she feels when they are respected. This heart was full and bright where as client's second heart representing her actual boundaries was blue and broken.Client described that this was because she often feels taken advantage of. She appeared to benefit from brainstorming ways she may improve her consistency regarding her boundaries and stand firm on the boundaries she is establishing. Progress regarding client ability to reflect upon and identify associations between tx content and daily life. Recommended continued IOP to promote ongoing progress and maintain stability. Eye Contact:: Good Motor Activity:: Appropriate Appearance:: Casual Speech:: Appropriate Mood:: Dysthymic Affect:: Congruent Thoughts:: Linear, Logical, No evidence of hallucinations/delusions noted Staff Interventions:: Therapist provided the group member with a wide array of supplies, asking each group member to create a castle that would represent the boundaries they currently have in place. The expressive activity was used as a tool to help increase client?s self-awareness of their boundaries. Therapist processed each group member?s castle, inquiring what style the group member currently uses most frequently and how current boundary style impacts his/her mental health and relationships. Therapist provided support by using reflective listening and giving feedback.
--- NOTE | 2017-12-26 11:07 | BH.SGPN ---
Service Group Progress Note - Session Psychotherapy Session #1 Date Open:: 12/26/17 Time Started:: 09:10 Time Stopped:: 10:10 Type of Group:: Process - 8 group members Goal of Group:: The goal of today's group was to check-in with client's mood, stressors, and positives, and review homework. Client Response/Progress/Benefit:: Pt was an active participant in group discussion. Provided appropriate feedback. Emotion for today is anxious. Shared with the group that she is focusing on future events which is causing increased anxiety. She discussed two examples of this both of which she displays significant what if thinking. Group provided feedback on how this thinking is increasing MH symptoms and is counterproductive. Pt also reports that she feels that she is managing her anger more effectively since entering the program. Benefited from group support and feedback. Progress noted AEB by pt report. Continues to stuggle on daily basis with MH symptoms specifically anxiety and depression. Tearful at times during group which discussing her family conflicts and being overwhelmed. Will continue in IOP to improve daily functioning, prevent decompensation, and increase effecting coping strategies. Eye Contact:: Fair Motor Activity:: Appropriate Appearance:: Casual Speech:: Appropriate Mood:: Anxious Affect:: Congruent Thoughts:: Linear, Logical, No evidence of hallucinations/delusions noted Staff Interventions:: Therapist used open-ended questions to elicit information about client's current stressors and mood state. Therapist was supportive by using active listening and reflection
--- NOTE | 2017-12-26 14:36 | BH.SGPN_ITS ---
Service Group Progress Note - Session Psychotherapy Session #2 Date Open:: 12/26/17 group members Time Started:: 10:20 Time Stopped:: 11:17 Targeted Problem #:: 1 Type of Group:: Illness Management Goal of Group:: To identify the importance of change, increase understanding of difficulty of making change, identify what clients would like to make changes in and identify the barriers or obstacles that get in the way of change. Client Response/Progress/Benefit:: Client responded well to session, unable to participate in activity, but providing support to peers. Client connected with quote, stating, if you keep re-reading you stay stuck in the past.? Client stated change is important to help make improvements or get better mentally, but it is not easy because of anxiety, fear of failure, and negative thinking. Client identified changes she would like to make this week trying not to worry about past, being more present and mindful, and improve attitude. Client shared these changes would help client feel better, reduce stress, and have more acceptance. Client identified barriers to these goals such as procrastination, lack energy, ?my bed calling me? and fear. Client appeared to benefit from gaining awareness of the importance of change and identifying changes she would like to make this week. Client progressing as evidenced by her improved insight to changes that will promote emotional well-being, but continues to struggle with setting boundaries. Eye Contact:: Good Motor Activity:: Appropriate Appearance:: Neat Speech:: Appropriate Mood:: Anxious Affect:: Congruent Thoughts:: Linear, Logical, No evidence of hallucinations/delusions noted Staff Interventions:: Therapist facilitated discussion about change and helped client?s make connections of why change is important. Therapist led group in an experiential activity which involved client?s identifying changes want to make and barriers that get in the way of making those changes. Therapist utilized activity as a tool to help client?s make connections of difficulties in making changes and identify what helps overcome barriers to change. Psychotherapy Session #3 Date Open:: 12/26/17 - group members Time Started:: 11:23 Time Stopped:: 12:15 Targeted Problem #:: 1 Type of Group:: Functional Skills Development Goal of Group:: To identify specific barriers to an identified change clients want to make and identify ways to overcome those barriers. Client Response/Progress/Benefit:: Client responded well to session, active participant. Client reported it is important to have awareness of the challenges and barriers to making change, so that one can create a plan to overcome them. Client identified her goal for the week as not returning to her bed and reducing procrastination. Client stated she wants to make this change because it will improve her mood and reduce negative thinking. Client's barriers were low energy, ?poopy attitude? and breaking habits. Client helped the group create strategies to overcome these barriers such as having a routine , taking time for self-care and hygiene, focus on one task at a time, writing down why client wants to make a change, and replacing unhealthy habits with healthy ones. Client appeared to benefit from identifying strategies to overcome barriers. Progress noted in client's reduced isolation on days she attends group, but can continue to benefit from mood stability. Client to continue IOP to prevent decompensation. Eye Contact:: Good Motor Activity:: Appropriate Appearance:: Neat Speech:: Appropriate Mood:: Anxious Affect:: Constricted Thoughts:: Linear, Logical, No evidence of hallucinations/delusions noted Staff Interventions:: Therapist facilitated discussion about what helped the group overcome challenges that came about during the experiential activity. Therapist utilized the activity as a tool in relating those experiences to ways to overcome barriers with challenges in their life when trying to make change. Therapist group into smaller groups and had them brainstorm ways to overcome certain barriers to their identified change. Therapist provided support by using reflective listening and providing feedback.
--- NOTE | 2017-12-27 10:16 | BH.MDN ---
Multi-Disciplinary Note - Note 60-min Individual Time Started:: 09:05 Date: 12/27/17 Purpose of session/treatment goals addressed:: The purpose of this session was to address current stressors, triggers, and strategies to help regulate emotions. Another goal was to educate client on calming strategies and develop a plan to reduce isolation. Other topics included: guilt and boundaries. Eye Contact:: Good Motor Activity:: Appropriate Appearance:: Neat Speech:: Rambling Mood:: Anxious, Dysthymic Affect:: Congruent - tearful throughout session Thoughts:: Linear, Logical, No evidence of hallucinations/delusions noted Staff Interventions:: Therapist used active listening and open-ended questions to explore client's triggers, stressors, and barriers. Therapist provided client a safe place to verbalize emotions and therapist gently challenged client on cognitive distortions. Therapist helped client process ambivalence, boundaries, and stress. Therapist assisted client in creating stay out of bed plan to reduce isolation and promote positive experiences. Therapist taught client calming strategies to utilize when client recognizes warning signs for anger and panic. Therapist gave client homework to follow her plan and try deep breathing today. Client Response:: Client responded well to session, apologizing for crying during session. Client reported she had a terrible morning as client had issues with her grandson and [id number]. Client expressed I don't like feeling like this or taking this many steps back. Client and therapist processed client's feelings, and client able to recognize that feeling overwhelmed is not a setback. Client reflected that she, in fact, made progress with setting boundaries by not staying home with her grandson and with not isolating as client made it to IOP rather than go back to bed. Client stated she feels depressed, in a panic, and guilty as client has been ruminating on the past and thinking of the future of her grandson's care. Client reported when she feels this way she has a hard time managing anger, over-eats, wants to isolate, and turns to negative thinking. Client and therapist discussed radical acceptance and challenged cognitive distortions. Client open to making a stay out of bed plan to help client stay active today. Client's plan included getting dressed, doing a chore or fun task, getting out of the house/ walking around a store, and reminding herself why her bed does not help. Client and therapist also discussed ways to reduce panic and somatic symptoms of anxiety and anger through use of coping skills. Client practiced deep breathing and shared she plans to use her mantra of lord get me through this day to help manage emotions. Client agreed to practice these strategies when she recognizes warning signs. Risks/Concerns:: Client denies suicidal ideation, plan, and intent as of 12/27/17. Client future oriented throughout session, sharing she has a family reunion coming up this weekend which client is looking forward to. Progress Toward Goals/Plan:: Client demonstrating progress towards treatment goals as she reports medication compliance for the last three weeks and fewer days of isolation. However, client continues to struggle with managing emotions, especially anger and stress. Client also reports ongoing guilt and difficulty setting boundaries. Client has progressed with increasing assertive communication of needs with her ex [id number]. Client to continue IOP to prevent decompensation and promote mood stability. Time Stopped:: 10:05
--- NOTE | 2017-12-27 10:49 | BH.MDN_ITS ---
Multi-Disciplinary Note - Note 60-min Individual Time Started:: 09:05 Date: 12/27/17 Purpose of session/treatment goals addressed:: The purpose of this session was to address current stressors, triggers, and strategies to help regulate emotions. Another goal was to educate client on calming strategies and develop a plan to reduce isolation. Other topics included: guilt and boundaries. Eye Contact:: Good Motor Activity:: Appropriate Appearance:: Neat Speech:: Rambling Mood:: Anxious, Dysthymic Affect:: Congruent - tearful throughout session Thoughts:: Linear, Logical, No evidence of hallucinations/delusions noted Staff Interventions:: Therapist used active listening and open-ended questions to explore client's triggers, stressors, and barriers. Therapist provided client a safe place to verbalize emotions and therapist gently challenged client on cognitive distortions. Therapist helped client process ambivalence, boundaries, and stress. Therapist assisted client in creating stay out of bed plan to reduce isolation and promote positive experiences. Therapist taught client calming strategies to utilize when client recognizes warning signs for anger and panic. Therapist gave client homework to follow her plan and try deep breathing today. Client Response:: Client responded well to session, apologizing for crying during session. Client reported she had a terrible morning as client had issues with her grandson and [id number]. Client expressed I don't like feeling like this or taking this many steps back. Client and therapist processed client's feelings, and client able to recognize that feeling overwhelmed is not a setback. Client reflected that she, in fact, made progress with setting boundaries by not staying home with her grandson and with not isolating as client made it to IOP rather than go back to bed. Client stated she feels depressed, in a panic, and guilty as client has been ruminating on the past and thinking of the future of her grandson's care. Client reported when she feels this way she has a hard time managing anger, over-eats, wants to isolate, and turns to negative thinking. Client and therapist discussed radical acceptance and challenged cognitive distortions. Client open to making a stay out of bed plan to help client stay active today. Client's plan included getting dressed, doing a chore or fun task, getting out of the house/ walking around a store, and reminding herself why her bed does not help. Client and therapist also discussed ways to reduce panic and somatic symptoms of anxiety and anger through use of coping skills. Client practiced deep breathing and shared she plans to use her mantra of lord get me through this day to help manage emotions. Client agreed to practice these strategies when she recognizes warning signs. Risks/Concerns:: Client denies suicidal ideation, plan, and intent as of . Client future oriented throughout session, sharing she has a family reunion coming up this weekend which client is looking forward to. Progress Toward Goals/Plan:: Client demonstrating progress towards treatment goals as she reports medication compliance for the last three weeks and fewer days of isolation. However, client continues to struggle with managing emotions , especially anger and stress. Client also reports ongoing guilt and difficulty setting boundaries. Client has progressed with increasing assertive communication of needs with her ex [id number]. Client to continue IOP to prevent decompensation and promote mood stability. Time Stopped:: 10:05
--- NOTE | 2017-12-27 16:03 | BH.SGPN_ITS ---
Service Group Progress Note - Session Psychotherapy Session #1 Date Open:: 12/13/17 Time Started:: 09:07 Time Stopped:: 10:12 Targeted Problem #:: 1 Type of Group:: Process - 4 participants Goal of Group:: The goal of today's group was to check-in with clients and review homework from previous group session. Client Response/Progress/Benefit:: Client receptive to group and did well to remain an actively engaged participant throughout. She discussed having had a particularly difficult weekend as she had to practice adhering to boundaries that were difficult to maintain. Client explained that her son had been transferred to the local correction and was pressuring her to pay for his bail. She shared that she had initially done well to hold firm about not doing so but began to feel guilty and eventually gave in. Client shared that the stress and guilt related to her son?s struggles with addiction led client to isolate and stay in bed much of the weekend. She shared knowing rationally that she cannot control his behaviors or fix his problems but struggles with not taking on the responsibility of trying to do so. Client benefitted from the support provided by fellow group participants and encouragement that as she learns the skills for managing emotions and maintaining boundaries she will begin so see improvements in mental health. Client displaying progress in her willingness to try applying thought challenging skills but struggles with consistency and emotion regulation. She is recommended continued IOP to decrease sx of depression and anxiety in order to increase ability to function at baseline. Eye Contact:: Good Motor Activity:: Appropriate Appearance:: Casual Speech:: Appropriate Mood:: Anxious, Depressed Affect:: Congruent Thoughts:: Linear, Logical, No evidence of hallucinations/delusions noted Staff Interventions:: Therapist facilitated the group session by asking open ended questions that encouraged group members to discuss their weekend and current mood state. Assisted group members in the review of their homework from previous group session.
--- NOTE | 2017-12-28 11:00 | BH.SGPN ---
Service Group Progress Note - Session Psychotherapy Session #1 Date Open:: 12/28/17 Time Started:: 09:05 Time Stopped:: 10:11 Targeted Problem #:: 1 Type of Group:: Process - 9 participants Goal of Group:: The goal of today's group was to check-in with clients and review homework from previous group session. Client Response/Progress/Benefit:: yeny responded well to session and was an actively engaged member of the discussion. She provided input and encouraged fellow participants. CLient shared that yesterday morning had been horrible and that she had not been looking forward to the rest of the day. She went on to discuss coming in for an individual session which had helped client to calm down and look at things more rationally. CLient creating a goal of not getting back in bed until the end of the day. She shared that this had been particularly hard as she is used to going back to bed and sleeping when things get hard. CLient shared that she reminded herself that she will feel better if she doesnt give into the urge to sleep. CLient expressed having to ban herself from going in the bedroom to prevent temptation but felt proud of herself as she successfully did things around the house and called a friend which resulted in going to an auction. Client reflected that she ended up feeling better by the end of the day and was glad she had done the difficult task of challenging herself not to use sleeping as a means of coping with her depression. Client benefitted from the encouragement provided by the group and displayed progress in her ability to begin identifying what strategies and skills may be helpful in decreasing client depression and improve management of increased stress. Client recommended continued IOP to promote more consistent use of identified skills and contihnued focus on healthy boundary setting. Eye Contact:: Good Motor Activity:: Appropriate Appearance:: Casual Speech:: Appropriate Mood:: Euthymic, Anxious Affect:: Congruent Thoughts:: Linear, Logical, No evidence of hallucinations/delusions noted Staff Interventions:: Therapist facilitated the group session by asking open ended questions that encouraged group members to discuss their weekend and current mood state. Assisted group members in the review of their homework from previous group session.
--- NOTE | 2017-12-28 14:52 | BH.SGPN_ITS ---
Service Group Progress Note - Session Psychotherapy Session #2 Date Open:: 12/28/17 - 8 group members Time Started:: 10:18 Time Stopped:: 11:15 Targeted Problem #:: 1 Type of Group:: Illness Management Goal of Group:: To increase understanding of what conflict is and increase awareness of how group members manage conflict. Client Response/Progress/Benefit:: Client responded well to session, providing good insight to discussion. Client appeared to connect with the quote, sharing ? you may not find peace with the other person, but you can find internal peace.? Client shared conflict comes from differences in values, needs, and desires. Client stated one can have client with family, friends, and with oneself. Client shared emotions, body language, and attitude can impact one?s ability to manage conflict. Client identified using the avoidant conflict resolution type most often as client shared she avoids confrontation both internally and externally. Client shared she is not currently happy with how she manages conflict because client holds in her emotions which leads to client getting ? snippy? and angry at others. Client appeared to benefit from gaining awareness of how she manages conflict and how it impacts mental health. Progress noted as client reports increased use of healthy coping and reduced isolation, but continues to struggle with communicating needs and setting boundaries. Eye Contact:: Good Motor Activity:: Appropriate Appearance:: Neat Speech:: Appropriate Mood:: Euthymic Affect:: Full Thoughts:: Linear, Logical, No evidence of hallucinations/delusions noted Staff Interventions:: Therapist facilitated discussion about conflict and conflict resolution. Therapist led group in an activity in which group members had to identify their initial response to conflict and how their response changes based on different situations. Therapist assisted clients with connecting the impact current conflict style has on their mental health. Psychotherapy Session #3 Date Open:: 12/28/17 - 6 group members Time Started:: 11:25 Time Stopped:: 12:15 Targeted Problem #:: 1 Type of Group:: Functional Skills Development Goal of Group:: To identify what contributes positively and negatively to conflict and appropriate ways to manage conflict with others. Client Response/Progress/Benefit:: Client responded well to session, active participant. Client shared she was more assertive of her opinions during the activity rather than be avoidant. Client stated, ?I wish it was that easy in real life.? Client stated assumptions, anxiety, and not managing emotions can negatively impact conflict resolution. Client helped the group identify strategies to improve conflict resolution such as breathing, specific communication, and expressing emotions rather than holding them in. Client shared she would like to improve her conflict resolution style by being more open-minded to new ideas and working to avoid less. Client appeared to benefit from practicing in the moment coping skills and identifying ways to improve conflict resolution. Client to continue IOP to prevent decompensation and promote mood stability. Eye Contact:: Good Motor Activity:: Appropriate Appearance:: Neat Speech:: Appropriate Mood:: Euthymic Affect:: Full Thoughts:: Linear, Logical, No evidence of hallucinations/delusions noted Staff Interventions:: Therapist facilitated group activity in which group members were provided with materials and had to eliminate certain items with consensus from group. Therapist processed activity, helping clients connect throughout activity strategies each person used to manage conflict. Therapist led discussion about what contributes to conflict in a positive or negative manner. Therapist facilitated discussion about conflict resolution strategies and provided group member with a handout about effective ways to manage conflict.
--- NOTE | 2018-01-02 10:52 | BH.SGPN ---
Service Group Progress Note - Session Psychotherapy Session #1 Date Open:: 01/02/18 Time Started:: 09:07 Time Stopped:: 10:18 Targeted Problem #:: 1 Type of Group:: Process - 8 participants Goal of Group:: The goal of today's group was to check-in with client's mood, stressors, and positives, review homework and introduce topic for the day. Client Response/Progress/Benefit:: Client reponded well to session and willing to process current thoughts and emotions with the group. She shared having had a busy weekend as she worked the [employer] at [employer] and had a family reunion. 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 CLient went on to discuss the family reunion and explained that this had been a bittersweet experience for her. She became tearful as she explained that she had been happy to spend time with her nephew who is diagnosed with cancer, but that is had been painful to see him struggling so much. Client did well to identify the positives in the fact that she had been able to be there to support him and remind him of her love. Client benefitted from reflecting with the group the progress she has been able to make in her ability to cope with these emotions in healthy ways. Client indicated that prior to treatment she would have previously isolated and avoided dealing with the difficult emotions but instead of doing so she got up and came to group this morning. Continued IOP recommended to continue to promote client implementation of healthy skills and increase implementation of emotion regulation skills and healthy boundary setting with Client family and supports. Eye Contact:: Fair Motor Activity:: Appropriate Appearance:: Casual Speech:: Appropriate Mood:: Anxious, Depressed Affect:: Constricted - became tearful upon discussing nephew's health Thoughts:: Linear, Logical, No evidence of hallucinations/delusions noted Staff Interventions:: Therapist used open-ended questions to elicit information about client's current stressors and mood state. Therapist was supportive by using active listening and reflection. Therapist utilized a quote as a tool in introducing the topic of the day.
--- NOTE | 2018-01-02 11:06 | BH.SGPN_ITS ---
Service Group Progress Note - Session Psychotherapy Session #1 Date Open:: 01/02/18 Time Started:: 09:07 Time Stopped:: 10:18 Targeted Problem #:: 1 Type of Group:: Process - 8 participants Goal of Group:: The goal of today's group was to check-in with client's mood, stressors, and positives, review homework and introduce topic for the day. Client Response/Progress/Benefit:: Client reponded well to session and willing to process current thoughts and emotions with the group. She shared having had a busy weekend as she worked the [employer] at [employer] and had a family reunion. 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 CLient went on to discuss the family reunion and explained that this had been a bittersweet experience for her. She became tearful as she explained that she had been happy to spend time with her nephew who is diagnosed with cancer, but that is had been painful to see him struggling so much. Client did well to identify the positives in the fact that she had been able to be there to support him and remind him of her love. Client benefitted from reflecting with the group the progress she has been able to make in her ability to cope with these emotions in healthy ways. Client indicated that prior to treatment she would have previously isolated and avoided dealing with the difficult emotions but instead of doing so she got up and came to group this morning. Continued IOP recommended to continue to promote client implementation of healthy skills and increase implementation of emotion regulation skills and healthy boundary setting with Client family and supports. Eye Contact:: Fair Motor Activity:: Appropriate Appearance:: Casual Speech:: Appropriate Mood:: Anxious, Depressed Affect:: Constricted - became tearful upon discussing nephew's health Thoughts:: Linear, Logical, No evidence of hallucinations/delusions noted Staff Interventions:: Therapist used open-ended questions to elicit information about client's current stressors and mood state. Therapist was supportive by using active listening and reflection. Therapist utilized a quote as a tool in introducing the topic of the day.
--- NOTE | 2018-01-02 15:04 | BH.SGPN ---
Service Group Progress Note - Session Psychotherapy Session #2 Date Open:: 18 - 9 group members Time Started:: 10:25 Time Stopped:: 11:15 Targeted Problem #:: 1 Type of Group:: Illness Management Goal of Group:: To increase understanding of communication and the various types of communication. Another goal was to increase understanding of impact communication styles can have. Client Response/Progress/Benefit:: Client responded well to session, active participant. Client connected with the quote sharing, assumptions are the illusion of communication. Client stated she often assumes that people should know how client feels or her wants, which results in client feeling let down and frustrated. Client reported communication helps a person get out emotions and feels supported. Client helped the group identify the different communication types, sharing client uses passive and passive aggressive styles. Client stated her communication style negatively impacts her mental health at times because client wants to please others, so she holds in her emotions and thoughts. Client appeared to benefit from gaining awareness of how communication impacts mental health. Progress noted as client reports reduced isolation, but continues to report difficulty managing emotions. Eye Contact:: Good Motor Activity:: Appropriate Appearance:: Neat Speech:: Appropriate Mood:: Anxious, Irritable Affect:: Congruent Thoughts:: Linear, Logical, No evidence of hallucinations/delusions noted Staff Interventions:: Therapist facilitated the group discussion about communication and explained the different types of communication. Therapist assisted group members in connecting the communication styles to the way they communicate and impact the communication style has on their relationships. Therapist provided support by using active listening and providing feedback.
--- NOTE | 2018-01-03 10:51 | BH.MDN ---
Multi-Disciplinary Note - Note 60-min Individual Time Started:: 09:32 Date: 01/03/18 Purpose of session/treatment goals addressed:: The purpose of this session was to address client's current stressors, symptoms, and progress. Another goal was to process emotions, thoughts, and behaviors keeping client stuck and identify strategies to break negative maintenance cycles. Motor Activity:: Appropriate Appearance:: Neat Speech:: Tangential, Rapid Mood:: Anxious, Depressed Thoughts:: Circular, No evidence of hallucinations/delusions noted Staff Interventions:: Therapist used active listening and open-ended questions to explore client's current stressors, symptoms, and progress. Therapist provided psychoeducation on emotions, negative thoughts, and maintenance cycles. Therapist normalized client's response to upsetting situations and helped client challenge negative thoughts of self. Therapist helped client establish a checklist of questions to ask herself to increase awareness of unhealthy thoughts and behaviors before making a decision. Client Response:: Client responded well to session, reporting she feels happy sad as client is worried and upset about her nephew, but recognizes she has a lot of blessings in her life. Client reported she has been isolating less and using her breathing, which demonstrates progress. However, client stated I don't like how I am referring to when client feels stressed, overwhelmed, or depressed. Client and therapist processed client's emotions and normalized them by using self-compassion and looking at emotions in shades of guzman. Client stated she has ongoing issues with avoidance, anxiety, and negative thinking which has kept client stuck and feeling overwhelmed. Client shared she has been avoiding paying some of her bills, calling her doctor, and going to the campground where client's oldest son stays. Client and therapist discussed the vicious cycle of anxiety and how avoidance only provides short-term relief, but has long-term negative consequences. Client and therapist created questions to ask herself before making decisions as client typically makes decisions based on temporary emotions and result in client maintaining anxious thinking or a depressed mood. Client questions included: is it helpful, how can I think or act different, and how can I refill my cup. Client also wanted to things she has been avoiding, why, and how her life would be different if she did not avoid. Client shared she knows she does unhelpful coping skills, but it is hard for her to break those patterns, however, client was open to trying. Risks/Concerns:: Client denies suicidal ideation, plan, and intent as of 01/03/18. Client reports looking forward to having a kids weekend with her grandchildren which demonstrates future orientation. Progress Toward Goals/Plan:: Client demonstrating progress toward treatment goals as shown by her report of reduced isolation and anger outbursts. However, client continues to report anxiety, negative thinking, and avoidance behaviors. Client also continues to struggle with accepting things out of her control and managing emotions, as client judges herself for feeling anything but happy. Client to continue IOP to prevent decompensation and continue working on improved mood stability. Client and therapist to work on establishing outpatient therapy. Time Stopped:: 10:30
--- NOTE | 2018-01-03 13:20 | PCM.PN.BLA ---
Progress Note Patient is seen in follow-up for major depressive disorder recurrent moderate, anxiety unspecified, personality disorder, untreated obstructive sleep apnea. History is been obtained per interview with patient, discussion with staff, review of chart. Case discussed with treatment team. Chief complaint Depression and anxiety Interim history Moderate depressive symptoms persist but of decreased intensity over the past 3 weeks. I think it is really helped. Reports increased energy. Out of bed more. Continues to have some episodic crying but of decreased frequency. Ruminative anxiety persists but of decreased intensity. Acknowledges anxiety about her nephew had recent surgery and ongoing caretaking for her grandson. She attributes improvement to medication and coping skills gained through IOP. No suicidal or homicidal ideation. No symptoms consistent with psychosis. Sleeping from 10:30 PM to 5 AM. Continued resistance to sleep apnea treatment. Appetite normal. Denies nausea or vomiting. Occasionally has diarrhea secondary to anxiety. Reports occasional emotional eating. Anxiety regarding weight. I am self-conscious. Status post gastric bypass. Compliant with medication including Cymbalta 30 mg daily. Denies adverse effects. Not currently taking Ativan. Non-smoker. Mental status exam Alert and oriented . No acute distress. Ambulatory with normal gait and station. Appears stated age. Casually dressed and groomed. Appropriate hygiene. Cooperative with interview. Good eye contact. No psychomotor agitation or retardation. Mood depressed. Affect congruent. Speech is clear and with regular rate and rhythm. Language fluent. Thought process organized. Associations logical. Thought content significant for ruminative anxiety and themes of depression. No suicidal or homicidal ideation related or detected. No symptoms consistent with psychosis noted or detected. Immediate recent and remote memory grossly intact. Attention and concentration are fair. Estimated intelligence and fund of knowledge average. Judgment and insight fair. Labs and testing Lab work will be requested from Dr. Cota. Further lab work will be obtained as needed. Diagnosis Major depressive disorder recurrent moderate F 33.1 Anxiety unspecified Personality disorder Obstructive sleep apnea untreated Plan Continue IOP as the structured setting is necessary to prevent decompensation and maintain gains. Patient will likely benefit from ongoing IOP treatment. Risks benefits alternatives of medications discussed with patient. Patient acknowledges understanding. Patient requests to increase Cymbalta. Increase Cymbalta to 60 mg daily. Dispense #30 with 1 refill. Encouraged vitamins as needed for gastric bypass. Encouraged follow-up regarding obstructive sleep apnea and BiPAP titration. Recommend outpatient follow-up with primary care physician Dr. Cota. Encouraged to establish with psychiatric providers for when IOP complete. 20 minutes of supportive psychotherapy provided. Patient acknowledges understanding and is in agreement with plan. Feels able to maintain safety. Agrees to seek help or emergency care feeling unsafe to self or others.
--- NOTE | 2018-01-03 16:12 | BH.SGPN_ITS ---
Service Group Progress Note - Session Psychotherapy Session #2 Date Open:: 01/03/18 Time Started:: 10:31 Time Stopped:: 11:15 Targeted Problem #:: 1 Type of Group:: Illness Management Goal of Group:: The goal of group was to increase understanding of coping strategies and impact problems have on self. Another goal was to practice utilizing coping skills in the moment. Client Response/Progress/Benefit:: Client active participant AEB client engaging in discussion and listening attentively to others. Client connected with the quote that she uses avoidance as her go to coping skill which can lead to more problems. Client recognizes her unhealthy coping isn?t solving any of the problems and in fact tends to make her situation worse. Client noted the importance of having a solid foundation of both internal and external coping strategies. Client seemed to benefit from increasing awareness of impact unhealthy coping can have on functioning. Eye Contact:: Good Motor Activity:: Appropriate Appearance:: Casual Speech:: Appropriate Mood:: Anxious Affect:: Congruent Thoughts:: Linear, Logical, No evidence of hallucinations/delusions noted Staff Interventions:: Therapist facilitated the group discussion about coping strategies. Therapist group and activity challenge them to work together in utilize healthy coping skills in the moment. Therapist utilized the activity as a tool to process what it feels like when dealing with problems and what strategies they used to cope throughout activity.
--- NOTE | 2018-01-03 17:43 | BH.SGPN_ITS ---
Service Group Progress Note - Session Psychotherapy Session #1 Date Open:: 12/16/17 Time Started:: 09:04 Time Stopped:: 10:24 Targeted Problem #:: 1 Type of Group:: Process - 8 participants Goal of Group:: The goal of today's group was to check-in with client's mood, stressors, and positives, review homework and introduce topic for the day. Client Response/Progress/Benefit:: Client responded well to session and appeared to benefit from the support of the group environment as client indicated having a difficult morining. Client shared feeling both physically and emotionally enxhausted. She discussed experiencing difficulties with getting her grandson ready for workshop this morning. CLient went on to share going to her nephew's granduation dinner and feeling as though she had to force herself to attend. She described that although getting the motivation to attend had been difficult, Client was glad she had done so and shared you have to push yourself sometimes. Client making progress in her ability to challenge her desire to isolate and is using positive self talk strategies on a more frequent basis. CLient continues to struggle with distorted thinking patterns and unhealthy boundaries at times. She is recommended continued [facility] tx to work on improving emotion regulation and effective communication strategies to improve ability for her supports to aid client in sx management. Eye Contact:: Good Motor Activity:: Appropriate Appearance:: Casual Speech:: Appropriate Mood:: Anxious, Depressed Affect:: Congruent Thoughts:: Linear, Logical, No evidence of hallucinations/delusions noted Staff Interventions:: Therapist used open-ended questions to elicit information about client's current stressors and mood state. Therapist was supportive by using active listening and reflection.
--- NOTE | 2018-01-04 11:02 | BH.SGPN ---
Service Group Progress Note - Session Psychotherapy Session #1 Date Open:: 01/04/18 Time Started:: 09:10 Time Stopped:: 10:10 Type of Group:: Process - 7 group members Goal of Group:: The goal of today's group was to check-in with client's mood, stressors, and positives, and review homework. Client Response/Progress/Benefit:: Active participant in group discussion. Provided appropriate feedback. Emotion for today is proud. Shared with the group that she is proud of herself for not isolating or spending my whole day in bed. States that it has been difficult to stay out of comfort zone however beneficial. Discussed the benefits of not isolating to herself, her family, and her MH symptoms. Continues to reports crying spells and difficulty managing emotions. Describes her emotions as uncontrollable. Group provided support and praise for her progress in reducing isolation. Progress noted per pt report. Decreased isolation and increased social interactions. Will continue in IOP to prevent futher decompensation and decrease severity of depression and anxiety. Eye Contact:: Good Motor Activity:: Restless Appearance:: Casual Speech:: Appropriate Mood:: Anxious, Depressed Affect:: Congruent Thoughts:: Linear, Logical, No evidence of hallucinations/delusions noted Staff Interventions:: Therapist used open-ended questions to elicit information about client's current stressors and mood state. Therapist was supportive by using active listening and reflection.
--- NOTE | 2018-01-04 15:30 | BH.SGPN ---
Service Group Progress Note - Session Psychotherapy Session #2 Date Open:: 18 - 7 group members Time Started:: 10:25 Time Stopped:: 11:15 Targeted Problem #:: 1 Type of Group:: Illness Management Goal of Group:: To increase understanding of components of a problem, learn strategies to solve a problem and rehearse problem solving skills. Client Response/Progress/Benefit:: Client responded well to session, providing good insight to discussion. Client appeared to connect with the quote sharing, some problems we do create in our heads. Client discussed the different components of problems such as barriers and goals. Client stated at times a barrier to problem-solving is recognizing if it really is a problem or not. Client reported sometimes I make something a problem in my mind, but it's really not that big a deal. Client helped the group process the ABCDEs of problem-solving and although her physical limitations prevented her from doing the activity, client providing encouragement and different ideas to help support the group. Client appeared to benefit from learning problem-solving strategies. Progress noted in client's improved mood, but can continue to benefit from challenging negative thoughts and reducing avoidance. Eye Contact:: Good Motor Activity:: Appropriate Appearance:: Neat - new hair color Speech:: Appropriate Mood:: Euthymic Affect:: Congruent Thoughts:: Linear, Logical, No evidence of hallucinations/delusions noted Staff Interventions:: Therapist facilitated group discussion about problems and the underlying components of problems. Therapist educated group about various strategies to solving a problem and provided an example of each. Therapist led group in an experiential activity that required group members to use problem solving skills to work together, rehearsing problem-solving skills.
--- NOTE | 2018-01-06 08:35 | BH.MTP_ITS ---
Treatment Plan Review Date of Admission:: 12/07/17 Date of Treatment Plan Review:: 01/06/18 Admitting Diagnoses:: Major depressive disorder F 33.1; Anxiety unspecified; Personality disorder Current Diagnoses:: Major depressive disorder F 33.1; Anxiety unspecified; Personality disorder Patient's Response to Treatment:: Client appears to be responding well to treatment as shown by her overall consistent attendance, engagement in group, and supportive feedback. Client provides positive, on topic insight during group , and is receptive to trying new skills discussed in group and individual sessions. Client seems to be benefiting from the emotional support and lived experience she provides and receives to and from group members as shown by her improved mood during IOP sessions. Client has missed a few scheduled group days from self-reported isolating and high anxiety. Per client report, she has been compliant with her medication and is utilizing some of the coping strategies to reduce depression, isolation, and anxiety. Client reports less isolation and reduced anxiety and depression. Status of Current Problems and Symptoms: Client reports ongoing moderate depressive symptoms where client feels little interest in doing things and feels down. Client also continues to report moderate anxiety including feeling on edge and avoiding situations that make her anxious. Client reports improvements with staying out of bed and being more active on days she feels better, but continues to struggle with implementing healthy coping strategies on her bad days. Client also reports ongoing issues with avoiding conflict. Problem #1 Problem Name:: Client will decrease depressive symptoms, isolation, and agitation Status of Goals:: Client has not yet completed this treatment goal as she continues to report ongoing moderate depressive symptoms and some isolation. Client has demonstrated progress as evidenced by client's reduced DSM-5 cross- cutting symptom scores for depression. At admission client self-rated for severe depression at an 8 out of a possible 8, but at treatment plan review client was moderate at 6 out of a possible 8. Client also reduced her score for feeling irritable and angry, going from a 4 to a 3. Additionally, client reports improved emotional regulation and increased socialization. Team Recommendations:: Client recommended to continue working towards treatment goals as she can continue to benefit from more consistent application of healthy coping skills to prevent client from falling back to maladaptive patterns of coping. Client also recommended to maintain medication compliance and follow her stay out of bed plan to prevent isolation. Lastly, client encouraged to follow up with outpatient counseling for continuity of care. Problem #2 Problem Name:: Client will reduce overall frequency, intensity, and duration of anxiety Status of Goals:: Client has not yet accomplished this treatment goal as she continues to report moderate symptoms of anxiety and avoidance behaviors. Client has shown progress with this treatment goal as evidenced by her reduced DSM-5 cross-cutting scores for anxiety. At admission client scored 10 out of 12 for anxiety, and at treatment plan review client scored 9 out of 10. Team Recommendations:: Client recommended to continue working on this treatment goal to promote coping skill consistency to reduce negative thinking, panic, and anxiety. Client has shown progress with gaining awareness to triggers and using calming strategies, but continues to report avoidance of conflict and other anxiety producing situations. Client encouraged to follow up with [facility] and outpatient counseling for continuity of care.
== END 2018-01-07 23:59 ==
LOC: BHIOP 08:59
PROVIDERS: Family Provider Family Medicine Geriatric Medicine; PCP Family Medicine Geriatric Medicine; Visit Provider Psychiatry & Neurology Psychiatry
DX: F33.1 Major depressive disorder, recurrent, moderate (principal); F41.9 Anxiety disorder, unspecified; G47.33 Obstructive sleep apnea (adult) (pediatric); Z79.899 Other long term (current) drug therapy
CPT/HCPCS: H0035; 90837; 90853

== ENCOUNTER 2018-01-10 09:00 | Outpatient (RCR) | payer MEDICARE, OTHER, SELFPAY ==
--- NOTE | 2018-01-10 13:59 | BH.MDN_ITS ---
Multi-Disciplinary Note - Note 45-min Individual Time Started:: 11:37 Date: 01/10/18 Purpose of session/treatment goals addressed:: The purpose of this session was to address client's current stressors, symptoms, and use of coping skills. Another goal was to complete a decisional-balance worksheet to increase self- awareness of the benefits and costs of two options that are causing client distress and to help client make a decision that will promote emotional well- being. Eye Contact:: Good Motor Activity:: Appropriate Appearance:: Casual - Not wearing makeup like usual Speech:: Appropriate Mood:: Anxious Affect:: Congruent Thoughts:: Linear, Logical, No evidence of hallucinations/delusions noted Staff Interventions:: Therapist used open-ended questions and active listening to explore client's current stressors, symptoms, and use of coping skills. Therapist used a decisional balance strategy to increase client's awareness of the costs and benefits of two options client is struggling with deciding. Therapist helped client increase insight to the effects of unhealthy coping, avoidance, and self-sabotage. Therapist introduced radical acceptance as a strategy to cope with challenging stressors. Client Response:: Client responded somewhat well to session, open to discussing ambivalence with therapist, but reporting reluctance to follow through with the decision that will best benefit her mental health. Client reported she feels uncertain regarding what to do on January 11 as client wants to use her camper, but is fearful of seeing her son there. Client stated she has been avoiding the campsite since last year which temporarily reduces client's anxiety, but long- term frustrates client and causes disappointment as client wants to spend time with her family there. Client receptive to filling out a decisional-balance worksheet to help provide concrete costs and benefits two her choices. After filling out the worksheet client recognized there were very few benefits of not going to the camper and numerous costs such as increased isolation, depression, and regret. Although client reported going would be most beneficial to her mental health, she shared reluctance to make the decision. Client agreed to take time tonight to process the worksheet before making her decision. Risks/Concerns:: No risks or concerns at this time. Client denies suicidal ideation, plan, and intent as of 01/10/18. Progress Toward Goals/Plan:: Client appears to be making progress towards treatment goals as she reports reduced isolation and increased self-awareness. Client reports using breathing to manage anxiety and has been following her stay out of bed plan. However, client reports ongoing avoidance behaviors, negative thinking, and some self-sabotaging behaviors that may hinder progress. Client to continue IOP to prevent decompensation, improve functioning, and increase mood stability. Client and therapist to find outpatient counseling for when client discharges from IOP. Time Stopped:: 12:20
--- NOTE | 2018-01-10 13:59 | BH.SGPN ---
Service Group Progress Note - Session Psychotherapy Session #1 Date Open:: 01/10/18 - 5 group members Time Started:: 09:10 Time Stopped:: 10:07 Targeted Problem #:: 1 Type of Group:: Process Goal of Group:: The goal of today's group was to check-in with client's mood, stressors, and positives, review homework and introduce topic for the day. Client Response/Progress/Benefit:: Client responded well to session, active participant. Client shared yesterday client felt panicked, overwhelmed, and anxious about multiple stressors including finding out a friend is dying. Client reports feeling still anxious but better than yesterday. Client stated yesterday she did not come to group and sat in a daze because she felt too overwhelmed. Client reported she attempted to sort clothes, clean, and use the 5-senses to help client get moving and distract herself, which client shared helped her somewhat. Client stated overall her weekend went well, client was social and spent time with family. Client appeared to benefit from getting feedback from peers on ways to manage anxiety. Client to continue IOP to prevent decompensation and improve emotional regulation. Eye Contact:: Good Motor Activity:: Appropriate Appearance:: Casual - no makeup, normally does hair and makeup Speech:: Appropriate Mood:: Anxious Affect:: Congruent Thoughts:: Linear, Logical, No evidence of hallucinations/delusions noted Staff Interventions:: Therapist used open-ended questions to elicit information about client's current stressors and mood state. Therapist was supportive by using active listening and reflection.
--- NOTE | 2018-01-10 14:03 | BH.SGPN_ITS ---
Service Group Progress Note - Session Psychotherapy Session #1 Date Open:: 01/10/18 - 5 group members Time Started:: 09:10 Time Stopped:: 10:07 Targeted Problem #:: 1 Type of Group:: Process Goal of Group:: The goal of today's group was to check-in with client's mood, stressors, and positives, review homework and introduce topic for the day. Client Response/Progress/Benefit:: Client responded well to session, active participant. Client shared yesterday client felt panicked, overwhelmed, and anxious about multiple stressors including finding out a friend is dying. Client reports feeling ?still anxious but better than yesterday.? Client stated yesterday she did not come to group and sat in a ?daze? because she felt too overwhelmed. Client reported she attempted to sort clothes, clean, and use the 5 -senses to help client get moving and distract herself, which client shared helped her somewhat. Client stated overall her weekend went well, client was social and spent time with family. Client appeared to benefit from getting feedback from peers on ways to manage anxiety. Client to continue IOP to prevent decompensation and improve emotional regulation. Eye Contact:: Good Motor Activity:: Appropriate Appearance:: Casual - no makeup, normally does hair and makeup Speech:: Appropriate Mood:: Anxious Affect:: Congruent Thoughts:: Linear, Logical, No evidence of hallucinations/delusions noted Staff Interventions:: Therapist used open-ended questions to elicit information about client's current stressors and mood state. Therapist was supportive by using active listening and reflection.
--- NOTE | 2018-01-10 14:04 | BH.SGPN ---
Service Group Progress Note - Session Psychotherapy Session #2 Date Open:: 01/10/18 Time Started:: 10:20 Time Stopped:: 11:15 Targeted Problem #:: 1 Type of Group:: Illness Management - 5 group members Goal of Group:: To increase understanding of a crisis and improve clients awareness of how he/she feels when in a crisis. Client Response/Progress/Benefit:: Client active participant AEB client contributions to discussion and attentive to others. Client reported she can relate that the way she lainey can lead into a personal crisis. Shared she recognizes isolating when she is overwhelmed or after a crisis doesn't help her situation, but makes it worse. Client shared when she is in a crisis it feels dark and she often reverts to those coping strateiges that aren't healthy, but now she has more hope to get out of a crisis because she has increased awareness of healthy coping strategies. Client seemed to benefit from increasing awareness of how she responds to a crisis can impact her negatively or positively. Progress noted with increased self-awareness and reporting increased use of healthy skills. Client to continue IOP to reinforce stress relieving skills, maintain gains, and prevent decompensation. Eye Contact:: Good Motor Activity:: Appropriate Appearance:: Casual Speech:: Appropriate Mood:: Euthymic Affect:: Congruent Thoughts:: Linear, Logical, No evidence of hallucinations/delusions noted Staff Interventions:: Therapist facilitated group discussion about defining a crisis and specifying various events that are considered a crisis. Therapist led group in an activity in which group members had to identify their thoughts and emotions attached to being in a crisis. Therapist provided support by using active listening and providing feedback.
--- NOTE | 2018-01-12 10:10 | BH.SGPN.GN ---
Client Response/Progress/Benefit: [Pt active participant as evidenced by pt contributing to discussion and listening attentively to others. Pt reported she could relate to the quote because there are many times in which her emotions have taken over which resulted in more problems. Pt shared her frustration and anger can be most difficult to manage. Pt worked cooperatively with others during challenge activity, connecting how emotions can make it more complicated to effectively communicate with others. when processing activity pt could relate that misinterpretations can lead to increased conflict and heightened emotions. Pt seemed to benefit from review of emotions can impact relationships and self if not managed in effective and appropriate ways. Pt to continue IOP level of care to maintain gains, improve daily functioning and prevent decompensation. ] Eye Contact: [Good] Motor Activity: [appropriate/calm] Appearance: [neat/clean] Speech: [normal rate and speed] Mood: [anxious] Affect: [congruent] Thoughts: [linear, logical, no evidence of delusions or hallucinations]
--- NOTE | 2018-01-12 10:21 | BH.SGPN_ITS ---
Service Group Progress Note - Session Psychotherapy Session #1 Date Open:: 18 - 4 group members Time Started:: 09:05 Time Stopped:: 10:00 Targeted Problem #:: 1 Type of Group:: Process Goal of Group:: The goal of today's group was to check-in with client's mood, stressors, and positives, review homework and introduce topic for the day. Client Response/Progress/Benefit:: Client responded well to session, active participant. Client reports feeling mixed emotions today as client isolated and engaged in some self-sabotaging behaviors yesterday. Client stated, I was the me I don't like yesterday. Client reported she tried to think positively, but it did not help her feel better. Client's mood did improve yesterday after she went for a drive with her ex-. Client and group discussed strategies to break maintenance cycles for depression and anxiety which client was somewhat receptive to. Client shared coming to group typically helps client break out of her depression cycle, but client was open to making a concrete plan for days when client is not at group. Client appeared to benefit from receiving positive support and ideas from peers who have had similar experiences. Client seems to be progressing as she reports less isolation and improved mood overall, but continues to struggle with overcoming self- sabotaging behaviors and consistent application of strategies learned in group and individual sessions which may hinder progress. Eye Contact:: Good Motor Activity:: Appropriate Appearance:: Neat Speech:: Tangential Mood:: Anxious Affect:: Congruent Thoughts:: Linear, Logical, No evidence of hallucinations/delusions noted Staff Interventions:: Therapist used open-ended questions to elicit information about client's current stressors and mood state. Therapist was supportive by using active listening and reflection.
--- NOTE | 2018-01-12 11:15 | BH.SGPN.GN ---
Behaviors/Verbalizations/Mental Status: [] Pt eye contact good, casually dressed, motor activity appropriate, speech normal rate and tone, mood euthymic, congruent affect, thoughts linear and intact, no evidence of delusions or hallucinations. Client Response/Progress/Benefit: []Pt active and engaged throughout session, contributing to discussion and listening to others. Pt shared she could connect with the different zones of alertness, identifying she most often is in the heightened state of alertness zone. Pt reported she recognizes by being in the heightened state for too long could result in her falling back into her depression and isolative behavior which would be the low state of alertness zone. Pt shared she wants to focus on using the best skills based on what she is feeling. Client seemed to benefit from identifying specific skills that would be helpful in each zone.
--- NOTE | 2018-01-13 09:05 | BH.SGPN.GN ---
Behaviors/Verbalizations/Mental Status: [] Pt eye contact good, casually dressed, motor activity appropriate, speech normal rate and tone, mood euthymic, congruent affect, thoughts linear and intact, no evidence of delusions or hallucinations. Client Response/Progress/Benefit: [] Patient reported yesterday she did some laundry, got into for dinner, and chose not to let the [employer] problems bother her. Client shared this morning she started to mess around with her phone and was able to fix the not being able to accept because issue. Shared she received a phone call from her sister which initially upset her because her sisters talking about client's son which client states her sister enables. Client reports typically she allow the situation to return the rest of her day but now recognizes what happens with her son is out of her control and is trying to stay more in the moment. Client identified she is feeling hopeful, positive and proud of herself. Client demonstrating progress as evidenced by her focusing on what is in her control and accepting those things she can't do anything about. Client to continue IOP level of care to stabilize moods, decrease depression, and prevent decompensation.
--- NOTE | 2018-01-13 10:15 | BH.SGPN.GN ---
Behaviors/Verbalizations/Mental Status: [] Client alert and oriented, good eye contact, motor activity normal, speech within normal limits, dress appropriate, mood euthymic, affect full, logical, linear thoughts, no signs of hallucinations or delusions. Client Response/Progress/Benefit: []Client responded well to session, active participant and contributing to discussion. Client connected with the quote sharing, we just keep going down the easy path because it's easy, like how I used to just stay in bed. Client shared pitfalls are setbacks or things that keep someone depressed and that negative thinking can make a person more vulnerable to pitfalls. Client participated in the activity and processed with peers that awareness and communication are essential for preventing pitfalls. Client appeared to benefit from increasing awareness of pitfalls and how they impact mental health. Progress noted as shown by client's improved mood and use of coping skills, but continues to report avoidance behaviors and difficulty with coping with stressors out of her control.
--- NOTE | 2018-01-13 11:15 | BH.SGPN.GN ---
Behaviors/Verbalizations/Mental Status: []Client alert and oriented, good eye contact, motor activity normal, speech within normal limits, dress appropriate, mood euthymic, affect full, logical, linear thoughts, no signs of hallucinations or delusions. Client Response/Progress/Benefit: []Client responded well to session, active participant and able to identify strategies. Client identified her personal pitfalls as staying in bed, not taking medications consistently, and feeling hopeless and helpless. Client shared her pitfalls lead to increased depression and anxiety. Client helped the group identify strategies to prevent pitfalls such as being aware, reflecting on positives, focusing on stressors in her control, and setting small goals. Client appeared to benefit from gaining awareness of her personal pitfalls so client can use coping strategies to avoid and overcome future pitfalls. Client to continue IOP to prevent decompensation and increase mood stability.
--- NOTE | 2018-01-16 09:10 | BH.SGPN.GN ---
Behaviors/Verbalizations/Mental Status: [] Client maintained clearing consistent eye contact throughout, though is tearful at times when discussing recent difficult news. Motor activity was appropriate in speech within normal limits. Client appearance was well-groomed and casual. She shared spicing things up a little bit by adding pink mousse to her hair. Client mood depressed, affect congruent. Thoughts were linear, logical, with no evidence of delusions or hallucinations. Client Response/Progress/Benefit: [] Client responded well to session and was actively engaged throughout. She discussed that her close friend had the previous week which has been really hard on client and that her heart is heavy. She did well to identify having mixed emotions about her friends passing is normal and that the grieving process often does not look the same for people. Shared that for her she knows she needs to be able to give back to her friend's family during this difficult time and plans to help with meal preparations for the service this week. Client discussed being grateful that she will have the opportunity to share fond memories of her friend during the memorial service she believes will help her to grieve. Client went on to discuss that despite this being a difficult week she does have something she is looking forward to and shared that it is her grandson's [employer] event. Displaying progress in her ability to more appropriately manage difficult emotions and utilize supports to process and cope during these times rather than engage in isolative behaviors. Client recommended continued IOP in order to improve consistency in healthy skill application and prevent decompensation.
--- NOTE | 2018-01-16 10:27 | BH.SGPN.GN ---
Behaviors/Verbalizations/Mental Status: []Client alert and oriented, neatly dressed and groomed. Eye contact good. Motor activity appropriate. Speech within normal limits. Affect congruent, mood depressed, anxious. Thoughts linear, logical, no signs of hallucinations or delusions. Client Response/Progress/Benefit: []Client responded well to session, active participant. Client connected with the quote sharing, when Im stressed my thoughts make me feel worse at times. Client helped group identify the physical, mental, behavioral, and emotional impacts of stress. Client reported stress has impacted her physical health and has led to procrastination and avoidance. Client recognized that stress serves an important function, but unmanaged stress can lead to unhealthy coping and depression. Client identified current stressors in her life such as grandson, recent loss, her sons addiction and estrangement, and the camper situation. Client shared her stress jar is not full, but client reports belief she may be numb right now due to loss. Client able to identify healthy coping skills she is using to manage stress such as reaching out to support. Client stated when her stressors are not managed client shuts down, isolates, and feels hopeless. Client appeared to benefit from gaining awareness of her current stressors and how they impact mental health. Client to continue IOP to prevent decompensation and increase mood stability.
--- NOTE | 2018-01-16 11:01 | BH.SGPN ---
Service Group Progress Note - Session Psychotherapy Session #1 Date Open:: 01/16/18 Time Started:: 09:10 Time Stopped:: 10:21 Targeted Problem #:: 1 Type of Group:: Process - 8 participants Goal of Group:: The goal of today's group was to check-in with client's mood, stressors, and positives, review homework and introduce topic for the day. Eye Contact:: Good Motor Activity:: Appropriate Appearance:: Casual Speech:: Appropriate Mood:: Depressed Affect:: Constricted Thoughts:: Linear, Logical, No evidence of hallucinations/delusions noted Staff Interventions:: Therapist used open-ended questions to elicit information about client's current stressors and mood state. Therapist was supportive by using active listening and reflection.
--- NOTE | 2018-01-16 11:29 | BH.SGPN.GN ---
Behaviors/Verbalizations/Mental Status: []Client alert and oriented, neatly dressed and groomed. Eye contact good. Motor activity appropriate. Speech within normal limits. Affect congruent, mood dysthymic. Thoughts linear, logical, no signs of hallucinations or delusions Client Response/Progress/Benefit: []Client responded well to session, active participant. Client engaged in the group activity and connected it to managing stress sharing, its okay to do things one at a time. Client able to manage emotions during the activity and helped the group identify strategies to reduce stress. Client identified strategies that would help her deal with stress such as being present, managing emotions, communicating with support, and focusing on stressors in her control. Client reported of her current stressors, setting boundaries and isolation are in her control. Client was receptive to learning the four As of coping with stress and appeared to benefit from learning different ways to manage stress. Client seems to be progressing as evidenced by her report of reduced isolation, but can continue to benefit from IOP to increase mood stability.
--- NOTE | 2018-01-18 08:48 | BH.COMM ---
Communication Note - Communication with Client Communication Note: Client called to cancel her scheduled individual and group IOP sessions today due to her [id number] passing away. Client shared I'm really doing okay, I just don't feel like sharing with the group today. Client denied suicidal ideation, plan, and intent. Client was encouraged to attend group to avoid isolation, but client denied. Client was also offered an individual session this afternoon, but was unable due to commitments with her grandson. Client reports plan to come to [facility] tomorrow 01/19/18 and Tuesday01/20/18 to make up for the days she has missed this week. Client reminded this therapist will be out of the office 01/19-01/20/18 and reminded client of the other [facility] therapists she can meet with if needed. Client agreed to meet with therapist next week for an individual session.
--- NOTE | 2018-01-18 08:53 | BH.COMM_ITS ---
Communication Note - Communication with Client Communication Note: Client called to cancel her scheduled individual and group IOP sessions today due to her [id number] passing away. Client shared I'm really doing okay, I just don't feel like sharing with the group today. Client denied suicidal ideation, plan, and intent. Client was encouraged to attend group to avoid isolation, but client denied. Client was also offered an individual session this afternoon, but was unable due to commitments with her grandson. Client reports plan to come to [facility] [place] tomorrow 01/19/18 and Tuesday to make up for the days she has missed this week. Client reminded this therapist will be out of the office 01/19-01/20/18 and reminded client of the other [facility] therapists she can meet with if needed. Client agreed to meet with therapist next week for an individual session.
--- NOTE | 2018-01-19 09:10 | BH.SGPN.GN ---
Behaviors/Verbalizations/Mental Status: [] Eye contact is fair. Motor activity is appropriate. Appearance is casual. Speech is appropriate. Mood is depressed. Affect is congruent. Thoughts are linear and logic. No evidence of hallucinations or delusions noted. Client Response/Progress/Benefit: [] Pt was an active participant in group discussion. Provided appropriate feedback. Emotion for today is numb. Shared with the group that 3 of her friends have within the past 5 days. Discussed her grief reactions however states not as bad as I would have been without this program... in the past I would have lied in bed all day. Reports that she is proud of herself for not reverting to her comfort zone of her bed to avoid and dwell on negatives. I wanted to stay in bed but I didn't. Insight into the importance of processing grief. Recent deaths also have motivated her to begin to think about getting my affairs in order which is something that she has been avoiding. Looking forward to this weekend in which their is an event with her grandson. Benefited from group support and encouragement. Progress noted as she reports managing recent deaths appropriating and not resorting to inappropriate coping skills (laying in bed all day). Will continue in IOP to prevent decompensation and maintain gains.
--- NOTE | 2018-01-19 10:05 | BH.SGPN.GN ---
Behaviors/Verbalizations/Mental Status: [] Client remained alert and orient throughout session. She maintained good eye contact, at times becoming tearful when discussing some of the difficulties in setting boundaries. Client speech remained within normal limits. Appropriate motor activity. Appearance was casual, appropriate grooming and hygiene. CLient mood was dysthymic, affect constricted. Thoughts linear and logical without presence of delusion/hallucination. Client Response/Progress/Benefit: [Client responded well to session and remained engaged throughout. CLient did well to discuss the importance of maintaining healthy boundaries and indicates that without boundaries we will struggle with our mental health. She discussed that for her it is often difficult to think about boundary setting as she knows it is something that she struggles with in her own life. Client indicated that setting boundaries can be difficult when it means hurting someone else's feelings or cutting off someone we love. She benefitted from reviewing the three types of boundary setting styles and the pros/cons associated with each. Client shared that this gave her better insight not only into her own boundary style but also her sister's. CLient is displaying progress in ability to apply concepts of treatment topics discussed to her own life and implement improved boundaries on a more consistent basis. Continued IOP recommended to further promote maintaining gains made, reinforce healthy boundaries, and prevent decompensation.] Narrative Note: []
--- NOTE | 2018-01-19 11:12 | BH.SGPN.GN ---
Behaviors/Verbalizations/Mental Status: [Client alert and orient x3. Appropriate Motor activity. Eye contact good - tearful when discussing boundaries with son. Speech WNL, appropriate rate and tone. CLient appearance was casual and cared for, grooming and hygiene appropriate. Mood was dysthymic, and affect constricted. Thoughts remained linear and logical, no noted delusion or hallucinations.] Client Response/Progress/Benefit: [Client responded well to session and actively provided input to the group. She did well to complete the activity in which Clients were prompted to create visual representations of current boundaries as well as where they would like to improve upon. CLient discussed that currently her boundaries are anymore improved place and they had been prior to treatment however client continues to struggle with maintenance of healthy boundaries. She discussed that these look like a paint brush and previously been painting with color is black and red representing negative unhealthy boundaries and resentment. Shared now utilizing healthier and calm her colors such as pink for mindfulness and blue for knowledge. Client benefited from discussing strategies for implementing healthy boundaries with loved ones and verbalizing ongoing struggles in maintaining healthy boundaries with her son. She is displaying progress in her ability to identify areas of progress as well as ways in which she may continue to grow in healthy management of mental health symptoms. Recommended continued IOP in order to continue to improve healthy boundary setting and prevent decompensation.] Narrative Note: []
--- NOTE | 2018-01-23 09:07 | BH.SGPN.GN ---
Behaviors/Verbalizations/Mental Status: [Client remained alert and orient x3. She remained an active participant and maintained good eye contact throughout. Client motor activity appeared appropriate. Appearance was casual, grooming and hygiene appropriate. Speech remained within normal limits. Mood was dysthymic, expressed as getting there, affect congruent with mood. CLient making fewer jokes or remarks than usual baseline. Thoughts remained linear and logical, devoid of any present hallucination or delusions. Therapist reviewed clients symptom tracker to assess for intensity of mental health symptoms and identify risk for suicide. No signs of suicidal ideation, plan, or intent to date.] Client Response/Progress/Benefit: [Client responded well to session and was actively engaged in both processing her own thoughts, feelings, and emotions as well as providing positive feedback and encouragement of fellow participants. She discussed feeling as though I thought I was holding my own but and Tuesday I had to blow up episodes. It went on to further explain that following the of a loved one she had 2 incidents in which she began to experience difficulties in managing her emotions; however, was able to prevent further escalation upon identifying her own irritability. Client further discussed going to her [employer] baseball game on Tuesday and having to see her son whom she is estranged from. Client indicated that she did well to manage his situation and maintain healthy boundaries. Client experienced some difficulties in using self-deprecating speech when discussing such. She appeared to benefit from being challenged to identify the areas of progress within her various experiences over the weekend and identify ways in which she successfully manage her emotions throughout. Client continues to make progress in her ability to apply treatment content and skills learned outside of group environment. Recommended continued IOP in order to maintain stability as client continues to improve ability to consistently apply healthy emotion regulation and depression management skills as well as completes aftercare planning.] Narrative Note: []
--- NOTE | 2018-01-23 10:20 | BH.SGPN.GN ---
Behaviors/Verbalizations/Mental Status: [] Pt eye contact good, casually dressed, motor activity appropriate, speech normal rate and tone, mood euthymic, congruent affect, thoughts linear and intact, no evidence of delusions or hallucinations. Client Response/Progress/Benefit: []Pt actively engaged AEB contributing to discussion and listening attentively to others. Pt shared when she was severely depressed she didn't want to do anything, didn't want to get out of bed, take care of herself, and at the time didn't set goals. Pt reported when she started setting goals at the start of IOP the goals provided her a road map of where to start and gave her hope she could accomplish something. Pt identified goals are extremely important to keeping people moving forward in life. Pt recognized one's mindset is important when setting goals as well as setting realistic, attainable goals. When processing activity pt shared the group could have reevaluated the original goal, which may have helped the group be successful quicker, which pt connected to her life of being okay with lowering expectations for a goal to help her achieve the smaller goal and feel more confident to reach the next goal. Pt seemed to benefit from discussion bout SMART goals as well as rehearsing setting small goals. Narrative Note: []
--- NOTE | 2018-01-23 11:25 | BH.SGPN.GN ---
Behaviors/Verbalizations/Mental Status: [] Pt eye contact good, casually dressed, motor activity appropriate, speech normal rate and tone, mood euthymic, congruent affect, thoughts linear and intact, no evidence of delusions or hallucinations. Client Response/Progress/Benefit: [] Pt engaged and active throughout session, contributed to discussion and listened to others. Pt identified her SMART goal for the week is to sort and bag at least one hour a day Tuesday - Tuesday and Tuesday she will donate the bags. Pt shared in order to help her be successful with the goal she will pick one room each day and write down her plan of action for each day. Pt reported she will know if she accomplished her goal if on Tuesday she donates at least 5 bags of items. Pt reported the reason she wants to accomplish this goal is because she would like her house to be organized and more tidy. Shared not having so many items will make her feel less cluttered and more accomplished. Pt seemed to benefit from focusing on setting a small goal to work on throughout the week as well as identifying what will help her to follow through with the goal. Narrative Note: []
--- NOTE | 2018-01-24 09:12 | BH.SGPN.GN ---
Behaviors/Verbalizations/Mental Status: [Client alert and orient x3. Active participant and well engaged. Client maintained good eye contact throughout - tearful when discussing ongoing stressors. Motor activity appeared appropriate, at times restless AEB fidgeting with hands and tapping cane. Appearance was casual and comfortable, grooming and hygiene appropriate. Speech within normal limits. Mood was depressed and anxious, affect congruent with mood. Thoughts remained linear and logical, with no present hallucinations or delusions. Therapist reviewed clients symptom tracker to assess for intensity of mental health symptoms and identify risk for suicide. No signs of suicidal ideation, plan, or intent to date.] Client Response/Progress/Benefit: [Client receptive of session and responded well to processing current symptoms, stressors, and areas of progress. She discussed being really glad that she had decided to attend group on this date as she had a really rough morning. Client went on to share that she had been struggling with her grandson not wanting to get ready this morning as well as had a difficult conversation with her sister. CLient discussed attempting to encourage her sister to set boundaries however had difficulty in doing so as the boundaries were regarding client's son. Client displayed progress in her ability to advocate for herself by setting the boundary of how long she engaged in the conversation in order to prevent emotionally overwhelmed and benefitted from identifying this area of progress with the group. CLient recommended continued IOP tx to promote consistent skill application and reinforce client ability to challenge distorted thinking patterns ] Narrative Note: []
--- NOTE | 2018-01-24 10:30 | BH.SGPN.GN ---
Behaviors/Verbalizations/Mental Status: []Client alert and oriented, neatly dressed and groomed. Eye contact good. Motor activity appropriate. Speech within normal limits. Affect full, mood euthymic. Thoughts linear, logical, no signs of hallucinations or delusions. Client Response/Progress/Benefit: []Client responded well to session, active participant. Client appeared to connect with the topic stating, I need to realize sometimes I have to bend when things are out of my control. client shared life is chaotic and one has to juggle many stressors at once, which can feel overwhelming. Client and peers discussed resilience, and client reported resilience to her is not quitting when things get hard. Client helped peers identify the factors that contribute to building resilience such as taking care of basic needs and self-care, positive self-talk, and using hope and optimism. Client appeared to benefit from increasing awareness of resilience and the factors that help build resilience. Progress noted as shown by clients improved mood, but continues to struggle with procrastination which could hinder further progress. Client to continue IOP to prevent decompensation and increase coping skill maintenance.
--- NOTE | 2018-01-24 11:30 | BH.SGPN.GN ---
Behaviors/Verbalizations/Mental Status: []Client alert and oriented, neatly dressed and groomed. Eye contact good. Motor activity appropriate. Speech within normal limits. Affect full, mood euthymic. Thoughts linear, logical, no signs of hallucinations or delusions. Client Response/Progress/Benefit: []Client responded well to session, receptive to positive statements from peers and providing positive feedback. Client engaged in activity, demonstrating resilient traits as shown by clients positive statements and report of confidence in the group. Client connected the stress ball to a resilient personality as the stress ball can bounce back from stress and hardships. Client identified personal resilience traits such as taking medication, positive self-talk, IOP, and not isolating to help client maintain resilience despite hardships. Client appeared to benefit from giving and receiving positive statements to and from peers. Progress noted as shown by clients increased self-awareness and report of improved mood, but continues to struggle with setting boundaries and avoidance. Client to continue IOP to prevent decompensation and increase consistency with implementing healthy coping skills.
--- NOTE | 2018-01-25 09:08 | BH.SGPN.GN ---
Behaviors/Verbalizations/Mental Status: []Client alert and oriented, neatly dressed and groomed. Eye contact good. Motor activity relaxed. Speech within normal limits. Affect full, mood euthymic, became tearful when talking about gratitude. Thoughts linear, logical, no signs of hallucinations or delusions. Reviewed clients symptom tracker, no signs of suicidal ideation, plan, or intent as of 01/25/18. Client Response/Progress/Benefit: [] Client responded well to session, providing supportive statements to peers. Client reports feeling satisfied today after making it through a challenging day yesterday. Client shared numerous stressors were impacting client's mood yesterday which made client want to isolate. However, client made it to group rather than isolating which demonstrated progress and client stated, I'd still be in bed if I didn't come to group yesterday. Client reported recent deaths have led to some rumination on client's own mortality, but with group support, client challenged the negative thoughts. Client shared she plans to keep busy, work on her clothing donation goal, spend time with her grandson, and staying out of bed today to manage depression. Client appeared to benefit from challenging and support provided by peers. Progress noted as shown by client's reduced isolation and resilience, but can continue to benefit from IOP to prevent decompensation and increase mood stability.
--- NOTE | 2018-01-25 10:15 | BH.SGPN.GN ---
Behaviors/Verbalizations/Mental Status: [Client receptive of session and engaged throughout, remained alert and orient x3. Client maintained good eye contact - tearful throughout discussion of negative thinking patterns. Motor activity restless - shifting in chair, tapping cane. Appearance casual, grooming appropriate. Speech within normal limits. Mood was dysthymic and anxious, affect labile though congruent with expressed mood. Thoughts logical,ruminative in nature. no present hallucinations or delusions.] Client Response/Progress/Benefit: [Client responded positively to the session and indicated connecting with the group topic of challenging negative thoughts. She shared that although she has been able to see observable progress in managing mental health symptoms, she continues to struggle with negative thoughts on a daily basis. Client benefitted from discussing the role we may play in maintaining our own distorted thinking patterns and reviewing the depression maintenance cycle. She displayed progress in her ability to identify the various thoughts she has that often act as a catalyst for her own maintenance cycle. Indicated that the thought of if only I could change them as preventing her from continued progress in managing mental health symptoms and identified ongoing difficulties in accepting what is out of her control as largest barrier to progress. Recommended continued IOP tx to prevent decompensation and promote ongoing application of CBT interventions learned.] Narrative Note: []
--- NOTE | 2018-01-25 14:11 | BH.MDN ---
Multi-Disciplinary Note - Note 60-min Individual Time Started:: 12:15 Date: 01/25/18 Purpose of session/treatment goals addressed:: The purpose of this session was to address client's current stressors, use of coping skills, and symptoms. Another goal was to challenge negative thought patterns and identify strategies to prevent self-sabotage. Other topics included discharge and aftercare. Eye Contact:: Good Motor Activity:: Appropriate Appearance:: Neat Speech:: Tangential Mood:: Euthymic, Anxious Affect:: Congruent Thoughts:: Linear, Logical, No evidence of hallucinations/delusions noted Staff Interventions:: Therapist used open-ended questions to explore client's current stressors, symptoms, and use of coping skills. Therapist gently challenged client on procrastination and avoidance that contributes to anxiety and depression. Therapist discussed maintenance and strategies to prevent self-sabotage as client has been demonstrating progress. Therapist helped client identify and challenge negative thinking patterns that keep client stuck and also reinforced boundary setting. Therapist discussed after options and discharge. Therapist gave client options for providers, mental health support groups, volunteering, and case management. Client Response:: Client responded well to session, open to meeting with therapist. Client reported she has been seeing progress in managing emotions, sharing I used to just fume and get so upset, but now I'm more aware and control it better. Client shared recent stressors including several deaths and issues with her son which have been impacting client's mental health. Client reported belief she is coping with these stressors better than she has in the past, but continues to struggle with negative thinking and procrastination. Client and therapist discussed the importance of maintenance and the self-sabotaging behaviors that can keep client feeling stuck. Client stated, I think I tell myself I don't deserve to be happy which has led to client self-sabotaging and stop taking her medications in the past. Client receptive to discussion of maintenance preventing starting all over and the consequences of self-sabotage. Client shared she has been procrastinating with selecting an outpatient provider and following up with her PCP. Client was receptive to following up with her PCP for homework and establishing outpatient counseling with this provider next week. Client reported she has mixed feeling about leaving [facility], but recognizes she has made progress despite recent stressors. Client shared in addition to outpatient counseling she would like to get back to volunteering and going to [employer]. Risks/Concerns:: No risks or concerns to document at this time, client denies suicidal ideation, plan, and intent as of 01/25/18. Progress Toward Goals/Plan:: Client has demonstrated progress towards treatment goals as evidenced by her report of better emotional regulation and reduced isolation, but continues to report ongoing issues with negative thinking and avoidance. Client shared she has mixed emotions about discharge, as client reports fear of self-sabotage and falling back into unhealthy coping, but agreed she has progressed and discharging in two weeks would be appropriate. Client to continue IOP to prevent decompensation and increase mood stability. Client and therapist to follow up with scheduling outpatient providers next week. Time Stopped:: 13:15
--- NOTE | 2018-01-25 14:48 | BH.MDN_ITS ---
Multi-Disciplinary Note - Note 60-min Individual Time Started:: 12:15 Date: 01/25/18 Purpose of session/treatment goals addressed:: The purpose of this session was to address client's current stressors, use of coping skills, and symptoms. Another goal was to challenge negative thought patterns and identify strategies to prevent self-sabotage. Other topics included discharge and aftercare. Eye Contact:: Good Motor Activity:: Appropriate Appearance:: Neat Speech:: Tangential Mood:: Euthymic, Anxious Affect:: Congruent Thoughts:: Linear, Logical, No evidence of hallucinations/delusions noted Staff Interventions:: Therapist used open-ended questions to explore client's current stressors, symptoms, and use of coping skills. Therapist gently challenged client on procrastination and avoidance that contributes to anxiety and depression. Therapist discussed maintenance and strategies to prevent self- sabotage as client has been demonstrating progress. Therapist helped client identify and challenge negative thinking patterns that keep client stuck and also reinforced boundary setting. Therapist discussed after options and discharge. Therapist gave client options for providers, mental health support groups, volunteering, and case management. Client Response:: Client responded well to session, open to meeting with therapist. Client reported she has been seeing progress in managing emotions, sharing I used to just fume and get so upset, but now I'm more aware and control it better. Client shared recent stressors including several deaths and issues with her son which have been impacting client's mental health. Client reported belief she is coping with these stressors better than she has in the past, but continues to struggle with negative thinking and procrastination. Client and therapist discussed the importance of maintenance and the self- sabotaging behaviors that can keep client feeling stuck. Client stated, I think I tell myself I don't deserve to be happy which has led to client self- sabotaging and stop taking her medications in the past. Client receptive to discussion of maintenance preventing starting all over and the consequences of self-sabotage. Client shared she has been procrastinating with selecting an outpatient provider and following up with her PCP. Client was receptive to following up with her PCP for homework and establishing outpatient counseling with this provider next week. Client reported she has mixed feeling about leaving [facility], but recognizes she has made progress despite recent stressors. Client shared in addition to outpatient counseling she would like to get back to volunteering and going to [employer]. Risks/Concerns:: No risks or concerns to document at this time, client denies suicidal ideation, plan, and intent as of 01/25/18. Progress Toward Goals/Plan:: Client has demonstrated progress towards treatment goals as evidenced by her report of better emotional regulation and reduced isolation, but continues to report ongoing issues with negative thinking and avoidance. Client shared she has mixed emotions about discharge, as client reports fear of self-sabotage and falling back into unhealthy coping, but agreed she has progressed and discharging in two weeks would be appropriate. Client to continue IOP to prevent decompensation and increase mood stability. Client and therapist to follow up with scheduling outpatient providers next week. Time Stopped:: 13:15
--- NOTE | 2018-01-30 09:10 | BH.SGPN.GN ---
Behaviors/Verbalizations/Mental Status: [] Pt eye contact good, casually dressed, motor activity appropriate, speech normal rate and tone, mood euthymic, congruent affect, thoughts linear and intact, no evidence of delusions or hallucinations. Reviewed client?s symptom tracker, no signs of suicidal ideation, plan, or intent as of today. Client Response/Progress/Benefit: [] Client reported last week she did not follow through with 1 of the boundaries she typically has of not supporting her son financially or her son's friends. Client shared her son's girlfriend called and asked for money because client son kicked girlfriend and girlfriend's children out of the apartment. Client reported she was able to maintain the boundaries not giving him money and instead met the girlfriend and girlfriend's children at a hotel in paid for 2 nights so the family would not be stranded on the street. Client shared she is proud that she did not given any further on breaking her boundaries and felt happy that she was able to provide halfway for that family. Client reports she did not do very well with completing her challenge to go of finding a new doctor and identifying a new counselor, reported she did not have time. Client shared she was able to be productive with getting some things done around the house and did not isolate throughout the entire weekend. Client recognizes she needs to find time to identify a new doctor and a new counselor so she can have that follow-up care she needs. Client reported she was triggered last night because her sister called to let client know 1 of client's son's friends overdosed over the weekend. Client shared it makes her extremely nervous that one day she is getting at the phone call that her son has overdosed. Client reports she believed she cope appropriately with the news and did not isolate or try to avoid the situation. Client identified she is feeling positive and is able to note progress in herself. Client demonstrating progress as evidenced by client reporting decrease anxiety and depressive symptoms. However client progress could be hindered by client not following through on some of the task that could be beneficial for helping client maintain progress after discharge from IOP. Client to continue IOP level of care to decrease depression, improve daily functioning, and prevent decompensation. Narrative Note: []
--- NOTE | 2018-01-30 10:22 | BH.SGPN.GN ---
Behaviors/Verbalizations/Mental Status: [Client eye contact good, casually dressed, motor activity WNL, speech normal rate and tone, mood dysthymic, congruent affect, thoughts linear and logical, no evidence of delusions or hallucinations.] Client Response/Progress/Benefit: [Client responded positively to session and appeared to connect well with content discussed related to managing changes in life. She indicated that change can impact someone's mental health if they continue to reject it. Client benefitted from reviewing the Change process and reflecting upon how her own experiences with change have impacted her depression. Client shared that for her change is often scary as she does not know what might happen or isn't ready to accept that things are going to be different. She noted that because of her fear she tends to isolate or avoid and has become more depressed as a result in the past. Client making progress in levels of insight related to her behaviors and maintenance of mental health sx. Recommended continued IOP tx to continue to maintain gains, reinforce healthy coping and emotion regulation skills, and prevent decompensation. ] Narrative Note: []
--- NOTE | 2018-01-30 16:24 | BH.MDN ---
Multi-Disciplinary Note - Note 60-min Individual Time Started:: 11:35 Date: 01/30/18 Purpose of session/treatment goals addressed:: The purpose of this session was to address clients current stressors, symptoms, barriers, and use of coping skills. Another goal was to process emotions, discuss coping strategies, and review aftercare options. Eye Contact:: Good Motor Activity:: Appropriate Appearance:: Neat Speech:: Rambling, Rapid Mood:: Anxious Affect:: Congruent Thoughts:: Linear, Logical, No evidence of hallucinations/delusions noted Staff Interventions:: Therapist used open-ended questions to explore clients current stressors, symptoms, and use of coping skills. Therapist gathered information on the barriers keeping client from making changes. Therapist gently challenged client on cognitive distortions and barriers keeping client stuck while helping client process ambivalence and problem-solve solutions. Therapist reviewed healthy coping skills and discussed the importance of establishing aftercare. Client Response:: Client responded well to session, open to meeting with therapist. Client shared I just need to vent as client is angry with her [id number]-laws behavior and engagement with clients grandson. Client identified two solutions to her anger, but when therapist explored them with client, client shared she was not ready to do either. Client reported prior to IOP she would have let the anger fester all day, but now client feels she is managing her emotions better. Client stated she has been isolating less, spending time with friends, and plans to go to her camper this weekend which client had been avoiding. Client stated sometimes I still feel hopeless, but if I really think about it I can see my progress. Client reported ongoing ruminations about her grandson and son as well as concerns client will fall into old patterns of behavior. Client and therapist discussed strategies for maintenance such as establishing boundaries, medication management, and using healthy coping skills. Client shared she did not identify an outpatient counselor this weekend, but was receptive to calling with therapist tomorrow. Risks/Concerns:: No risks or concerns to document at this time. Client denies suicidal ideation, plan, and intent as of 01/30/18. Client shared she looks forward to doing things again which demonstrates future orientation. Progress Toward Goals/Plan:: Client demonstrating progress towards treatment goals as evidenced by clients report of reduced isolative behaviors, improved mood, increased socialization, and better emotional regulation. Client shared she feels like she doesnt get as nasty and angry with people in her life anymore. Client continues to report ongoing ruminations regarding her grandson and son, avoidance, and issues with boundaries. Client stated she is concerned something will happen to make client fall back to square one and client reports history of self-sabotaging behaviors. Client to continue IOP to prevent decompensation and promote stability. Client was to identify an outpatient counselor last week, but reported she did not have time to over the weekend. This therapist and client will attempt to call and schedule an outpatient appointment tomorrow. Time Stopped:: 12:30
--- NOTE | 2018-01-30 16:29 | BH.MDN_ITS ---
Multi-Disciplinary Note - Note 60-min Individual Time Started:: 11:35 Date: 01/30/18 Purpose of session/treatment goals addressed:: The purpose of this session was to address client?s current stressors, symptoms, barriers, and use of coping skills. Another goal was to process emotions, discuss coping strategies, and review aftercare options. Eye Contact:: Good Motor Activity:: Appropriate Appearance:: Neat Speech:: Rambling, Rapid Mood:: Anxious Affect:: Congruent Thoughts:: Linear, Logical, No evidence of hallucinations/delusions noted Staff Interventions:: Therapist used open-ended questions to explore client?s current stressors, symptoms, and use of coping skills. Therapist gathered information on the barriers keeping client from making changes. Therapist gently challenged client on cognitive distortions and barriers keeping client stuck while helping client process ambivalence and problem-solve solutions. Therapist reviewed healthy coping skills and discussed the importance of establishing aftercare. Client Response:: Client responded well to session, open to meeting with therapist. Client shared ?I just need to vent? as client is angry with her ex- [id number]?s behavior and engagement with client?s grandson. Client identified two solutions to her anger, but when therapist explored them with client, client shared she was not ready to do either. Client reported prior to IOP she would have let the anger ?fester? all day, but now client feels she is managing her emotions better. Client stated she has been isolating less, spending time with friends, and plans to go to her camper this weekend which client had been avoiding. Client stated ?sometimes I still feel hopeless, but if I really think about it I can see my progress.? Client reported ongoing ruminations about her grandson and son as well as concerns client will fall into old patterns of behavior. Client and therapist discussed strategies for maintenance such as establishing boundaries, medication management, and using healthy coping skills. Client shared she did not identify an outpatient counselor this weekend, but was receptive to calling with therapist tomorrow. Risks/Concerns:: No risks or concerns to document at this time. Client denies suicidal ideation, plan, and intent as of 01/30/18. Client shared she looks forward to doing things again which demonstrates future orientation. Progress Toward Goals/Plan:: Client demonstrating progress towards treatment goals as evidenced by client?s report of reduced isolative behaviors, improved mood, increased socialization, and better emotional regulation. Client shared she feels like she ?doesn?t get as nasty and angry? with people in her life anymore. Client continues to report ongoing ruminations regarding her grandson and son, avoidance, and issues with boundaries. Client stated she is concerned something will happen to make client ?fall back to square one? and client reports history of self-sabotaging behaviors. Client to continue IOP to prevent decompensation and promote stability. Client was to identify an outpatient counselor last week, but reported she did not have time to over the weekend. This therapist and client will attempt to call and schedule an outpatient appointment tomorrow. Time Stopped:: 12:30
--- NOTE | 2018-01-31 09:04 | BH.SGPN.GN ---
Behaviors/Verbalizations/Mental Status: [Client maintained good eye contact - tearful throughout, casually dressed, motor activity WNL - at times fidgetting with cane or shifting in seat, speech normal rate and tone, mood sad, overwhelmed, affect dysthymic, thoughts linear and logical, no evidence of delusions or hallucinations. Therapist reviewed clients symptom tracker to assess for intensity of mental health symptoms and identify risk for suicide. No signs of suicidal ideation, plan, or intent to date.] Client Response/Progress/Benefit: [Client receptive of session and engaged throughout. SHe did well to openly discuss thoughts and feelings as well as provide feedback and encouragement to the group. Client discussed connecting with another participant discussing struggling to maintain healthy boundaries with a toxic family member. Client shared ongoing difficulties in combating feeling of guilt and shame associated with her son who is struggling with addiction. Client discussed receiving a call the previous night that her son had been incarcerated and was requesting help from her. She proudly shared that although it had been difficult, she was able to advocate for herself and maintain her boundaries. Client displaying progress in her ability to fight negative thoughts by applying healthy boundary setting and positive self talk. Recommended continued IOP tx to promote ongoing progress in skill application and emotion regulation, as well as to prevent decompensation.] Narrative Note: []
--- NOTE | 2018-01-31 10:30 | BH.SGPN.GN ---
Behaviors/Verbalizations/Mental Status: []Client alert and oriented, neatly dressed and groomed. Eye contact good. Motor activity appropriate. Speech within normal limits. Affect congruent, mood euthymic, anxious. Thoughts linear, logical, no signs of hallucinations or delusions. Client Response/Progress/Benefit: []Client responded well to session, providing good insight to discussion. Client appeared to connect with the quote, sharing, my mindset can make positive thoughts or negative thoughts. Client contributing to the discussion of automatic thoughts and how negative automatic thoughts can impact emotions and behaviors. Client reported thoughts just pop up and it does not do good to dwell on them or ruminate. Client helped the group identify the common cognitive distortions. Client identified jumping to conclusions, should, and mind-reading as the distortions client most often uses. Client stated she mainly uses the should distortion when client looks back on she and her sons relationship. Client appeared to benefit from gaining awareness of the cognitive distortions and how negative thinking impacts mental health and functioning. Client appears to be progressing as shown by her report of reduced isolation, but client continues to struggle with negative thinking patterns and setting boundaries.
--- NOTE | 2018-01-31 11:33 | BH.SGPN.GN ---
Behaviors/Verbalizations/Mental Status: []Client alert and oriented, neatly dressed and groomed. Eye contact good. Motor activity appropriate. Speech within normal limits. Affect congruent, mood euthymic, anxious. Thoughts linear, logical, no signs of hallucinations or delusions. Client Response/Progress/Benefit: Client responded well to session, active participant and helping the group rehearse thought challenging. Client participated in the activity and shared effort and awareness is needed to change cognitive distortions. Client stated, Renetta had negative thoughts for a long, long time which helped client increase understanding of the patience and practice needed to change thoughts. Client practiced in the moment coping skills by challenging a current cognitive distortion of I should have changed things with my son. Client reported this thought is shoulding on myself. Client reframed her thought to I cant control what he does and Renetta set good boundaries. Client helped the group identify ways to combat negative thoughts such as focusing on what clients can control, having awareness of distortions, and practicing thought challenging daily. Client appeared to benefit from gaining awareness of the distortions and learning strategies to challenge negative thoughts. Client seems to be progressing as evidenced by her increased awareness of cognitive distortions and unhealthy coping skills, but reports ongoing difficulty with setting boundaries and regulating emotions when anxious or angry.
--- NOTE | 2018-02-01 09:05 | BH.SGPN.GN ---
Behaviors/Verbalizations/Mental Status: []Client alert and oriented, neatly dressed and groomed. Eye contact good. Motor activity appropriate. Speech tangential. Affect congruent, mood anxious. Thoughts linear, logical, no signs of hallucinations or delusions. Reviewed clients symptom tracker, no risk for suicidal ideation, plan, or intent as of 02/01/18. Client Response/Progress/Benefit: []Client responded well to session, receptive to supportive statements from peers. Client reports feeling unsure today as client is currently struggling with her son's recent arrest and addiction which is bringing up difficult memories and emotions. Client shared she has an ongoing struggle with her relationship with her son as client stated I love him, but I don't like what he does or how he treats me. Client recognizes the best thing for her mental health is to keep the boundaries she has set with her son so client does not enable or get hurt by his addiction. Client identified progress sharing despite the stressors my boat isn't rocking and client is managing her emotions. Client appeared to benefit from connecting with peers who have had similar life experiences. Progress noted per client's report of increased emotional regulation, but can continue to benefit from IOP to prevent decompensation and promote mood stability.
--- NOTE | 2018-02-01 10:30 | BH.SGPN.GN ---
Behaviors/Verbalizations/Mental Status: [] Pt eye contact good, casually dressed, motor activity appropriate, speech normal rate and tone, mood euthymic, congruent affect, thoughts linear and intact, no evidence of delusions or hallucinations. Client Response/Progress/Benefit: []Pt contributed positively to discussion and listened attentively to others. Pt agreed with others about the importance of needing to have the desire and motivation to make a big change or fear and other negatives will get in the way from the follow through. Pt identified wanting to be in bed, not liking change, poor boundaries, fear of unknowing, worries, mind reading, fear of failure, difficulty making decisions, and negative thinking to be all things that can get in the way of her progressing. Pt recognizes she has made a lot of progress in many of the areas, but knows there is more work to be done to help her maintain stability and progress. Pt seemed to benefit from increased awareness of what is holding her back from moving forward. Narrative Note: []
--- NOTE | 2018-02-01 11:30 | BH.SGPN.GN ---
Behaviors/Verbalizations/Mental Status: [] Pt eye contact good, casually dressed, motor activity appropriate, speech normal rate and tone, mood euthymic, congruent affect, thoughts linear and intact, no evidence of delusions or hallucinations. Client Response/Progress/Benefit: []Pt contributed to discussion and listened attentively to others. Pt reported her 30 day plan is focusing on decreasing isolative behaviors. Pt reported her first goal is to get up in the morning, have coffee, and complete personal hygiene duties. Pt shared her next goal will be to make her bed and create a to-do list for the day. Pt reported another goal is to increase her social activities which will keep her from staying in the house. Pt shared her last goal is to donate things she no longer needs to help declutter her home. Pt seemed to benefit from assistance with creating her plan because she needed guidance on keeping her goals manageable. Narrative Note: []
--- NOTE | 2018-02-02 15:39 | BH.COMM ---
Communication Note - Communication with Client Communication Note: Therapist called client to discuss updates on establishing outpatient counseling. Client receptive to follow through with services at [facility] as they meet client's insurance needs. Client asked therapist to call [facility] to schedule an intake for next week.
--- NOTE | 2018-02-02 15:44 | BH.COMM_ITS ---
Communication Note - Communication with Client Communication Note: Therapist called client to discuss updates on establishing outpatient counseling. Client receptive to follow through with services at [facility] as they meet client's insurance needs. Client asked therapist to call [facility] to schedule an intake for next week.
--- NOTE | 2018-02-03 08:45 | BH.TPR ---
Treatment Plan Review Date of Admission:: 12/07/17 Date of Treatment Plan Review:: 02/03/18 Admitting Diagnoses:: Major depressive disorder F 33.1; Anxiety unspecified; Personality disorder Current Diagnoses:: Major depressive disorder F 33.1; Anxiety unspecified; Personality disorder Patient's Response to Treatment:: Client appears to be responding well to treatment as shown by her overall consistent attendance, engagement in group, and supportive feedback. Client provides positive, on topic insight during group, and is receptive to trying new skills discussed in group and individual sessions. Client reports actively using coping strategies to manage emotions, reduce isolation, and increase mood stability. Client recently experienced numerous losses, but was able to manage her emotions, not isolate, and prevent decompensation which demonstrates progress. Per client report, she has been compliant with her medication and is utilizing some of the coping strategies to reduce depression, isolation, and anxiety. Overall client has responded well to treatment interventions and has made progress in IOP. Status of Current Problems and Symptoms: Client reports ongoing ruminations about her grandson and son as well as concerns client will fall into old patterns of behavior. Client also reports some avoidance behaviors when client feels overwhelmed or anxious. Client would benefit from an additional week of IOP to complete treatment plan goals, maintain gains, further stablize mood, and display more consistency on skill utilization. Problem #1 Problem Name:: Client will decrease depressive symptoms, isolation, and agitation Status of Goals:: Client continues to make progress in accomplishing this treatment goal as shown by her report of active thought challenging, reduced isolation, and use of positive self-talk. Client also able to identify triggers for anger and depression. Client also reports increase acceptance of stressors out of her control which has helped client manage frustration with family members and set boundaries. Client continues to endorse depressive symptoms, but of reduced intensity and increase ability to cope. Team Recommendations:: Client progressing well, plan to discharge next week and follow up with outpatient counseling at [facility]. Problem #2 Problem Name:: Client will reduce overall frequency, intensity, and duration of anxiety Status of Goals:: Client on track to completing this treatment goal as she can identify anxiety triggers and reports using deep breathing, small goals, and positive self-talk to manage symptoms. Client reports increased ability to function and manage anxiety in the moment. Team Recommendations:: Client progressing well, plan to discharge next week.
--- NOTE | 2018-02-06 09:05 | BH.SGPN.GN ---
Behaviors/Verbalizations/Mental Status: [Client maintained good eye contact - tearful during reflection, casually dressed, motor activity restless as client fidgeting in seat and with cane as well as left room momentarily, speech normal rate and tone, mood euthymic,anxious expressed as nervous hopeful, affect congruent, thoughts linear and logical, no evidence of delusions or hallucinations. Therapist reviewed clients symptom tracker to assess for intensity of mental health symptoms and identify risk for suicide. No signs of suicidal ideation, plan, or intent to date.] Client Response/Progress/Benefit: [Client receptive of session, actively engaged throughout. She discussed feeling nervous but accomplished as she is getting dance out this week and shared mixed feelings about being discharged on Tuesday. Client discussed she does not feel ready but when she takes a step back and looks at her progress was able to identify that I think it is because I am scared. Client shared fearing that she is going to fall back into old patterns of behavior such as isolation, avoidance, or lashing out verbally. She benefitted from reviewing her progress since beginning the program and working with therapist to identify strategies for maintaining gains. Client did well to identify areas of progress in her ability to manage emotions and reinforce boundaries. Client recommended continued IOP tx to maintain while completing discharge planning on 02/08.] Narrative Note: []
--- NOTE | 2018-02-06 10:35 | BH.SGPN.GN ---
Behaviors/Verbalizations/Mental Status: []Client alert and oriented, neatly dressed and groomed. Eye contact good. Motor activity appropriate. Speech within normal limits. Affect congruent, mood euthymic. Thoughts linear, logical, no signs of hallucinations or delusions. Client Response/Progress/Benefit: []Client responded well to session, contributing positively to discussion. Client appeared to connect to the quote sharing, our negative thinking can make something seem impossible. Client stated she has learned in life that the way one approaches an impossible situation results in either a positive or negative outcome. Client agreed with peers that viewing something as impossible has a negative impact on mental health because it would make you quit before you try. Client participated in the activity, providing feedback and engaging with peers. Client stated when working to overcome an impossible situation, one can benefit from using different perspectives, supports, and open communication. Client appeared to benefit from recognizing the consequences of viewing situations as impossible and practicing overcoming an impossible situation. Client progressing as shown by her report of improved mood and use of healthy coping skills. Client plans to discharge from [facility] this week.
--- NOTE | 2018-02-06 11:32 | BH.SGPN.GN ---
Behaviors/Verbalizations/Mental Status: []Client alert and oriented, neatly dressed and groomed. Eye contact good. Motor activity appropriate. Speech within normal limits. Affect congruent, mood euthymic, anxious. Thoughts linear, logical, no signs of hallucinations or delusions Client Response/Progress/Benefit: []Client responded well to session, participating to discussion and able to identify examples. Client appeared to connect with growth versus fixed mindset as client shared fixed mindset tends to be more all or nothing which can make a person not try new things or feel like a failure after a setback. Client helped the group process the benefits of growth mindset and identify strategies to obtain a grow mindset when faced with challenges. Client identified managing my emotions and learning to accept as something client used to view as impossible but is now able to do. Client shared setting boundaries and learning coping skills helped client make changes. Client able to identify internal and external resources that can help client overcome current barriers of anxiety and fear of failure such as reflecting on progress and using positive self-talk. Client appeared to benefit from learning about growth-mindset and increasing awareness of internal and external resources that may help client overcome current barriers. Client has progressed as evidenced by her report of reduced isolation and improved use of coping skills, but can continue to benefit from maintenance and to discharge this Tuesday.
--- NOTE | 2018-02-08 16:33 | BH.COMM_ITS ---
Communication Note - Communication with Client Communication Note: Client called to inform therapist that her son got killed last evening in a car accident and she will not be in for group today. Client?s last day was scheduled for today, but due to the circumstances and acute stressor, client will not be discharging at this time. Therapist provided emotional support and offered an individual session for client sometime this week, but client declined. Client shared she will contact therapist about IOP when client has more information on arrangements. Client reported ability to maintain safety and shared she will be with family for the rest of the week. Therapist to discuss situation with treatment team and follow up with client next week.
--- NOTE | 2018-02-14 14:28 | BH.COMM ---
Communication Note - Communication with Client Communication Note: Client came to [facility] today to follow up with therapist and let IOP staff know she is safe and doing okay. Client was to discharge from [facility] last week, but the night before her discharge client found out her son was killed in an accident. Due to the unforeseen circumstances and significant loss, client was not discharged from the program, but missed the rest of the week due to the and grieving. Client reports plan to come back to [facility] but was unsure when she would be returning. Client stated she plans to call this therapist to set up an individual session and transition back to [facility]. Client appeared to be managing her grief well as evidenced by her report of using supports, positive self-talk, and being at peace. Therapist recommended grief counseling in addition to IOP, but client declined grief counseling at this time. Therapist will follow up with client later this week.
--- NOTE | 2018-02-14 14:34 | BH.COMM_ITS ---
Communication Note - Communication with Client Communication Note: Client came to [facility] today to follow up with therapist and let IOP staff know she is safe and doing okay. Client was to discharge from [facility] last week, but the night before her discharge client found out her son was killed in an accident. Due to the unforeseen circumstances and significant loss , client was not discharged from the program, but missed the rest of the week due to the and grieving. Client reports plan to come back to [facility] but was unsure when she would be returning. Client stated she plans to call this therapist to set up an individual session and transition back to [facility]. Client appeared to be managing her grief well as evidenced by her report of using supports, positive self-talk, and being at peace. Therapist recommended grief counseling in addition to IOP, but client declined grief counseling at this time. Therapist will follow up with client later this week.
== END 2018-02-07 23:59 ==
LOC: BHIOP 09:00
PROVIDERS: Family Provider Family Medicine Geriatric Medicine; PCP Family Medicine Geriatric Medicine; Visit Provider Psychiatry & Neurology Psychiatry
DX: F33.1 Major depressive disorder, recurrent, moderate (principal); F41.9 Anxiety disorder, unspecified; F60.9 Personality disorder, unspecified
CPT/HCPCS: H0035; 90834; 90837; 90853

== ENCOUNTER 2018-02-23 09:00 | Outpatient (RCR) | payer MEDICARE, OTHER, SELFPAY ==
--- NOTE | 2018-02-23 15:54 | BH.MDN ---
Multi-Disciplinary Note - Note 60-min Individual Time Started:: 14:00 Date: 02/23/18 Purpose of session/treatment goals addressed:: The purpose of this session was to provide closure to treatment, process client's grief, and review strategies that will promote mood stability and gains made in IOP. Another goal was to discuss aftercare and discharge recommendations. Motor Activity:: Appropriate Appearance:: Casual - not wearing makeup, but clean hair and clothing. Speech:: Tangential Mood:: Dysthymic, Other - All the feelings... I don't know Thoughts:: Circular, No evidence of hallucinations/delusions noted Staff Interventions:: Therapist used active listening and open-ended questions to explore client's current stage of grief and help client process her thoughts and emotions. Therapist provided client a safe place to verbalize her concerns and grief while reminding client of healthy coping skills. Therapist provided client with grief articles and used the readings to help normalize client's experience. Therapist discussed aftercare plan with client and used strengths-perspective to empower client on the progress she has made in IOP and continues to make while coping with her loss. Therapist gave client a quote collage for closure and gave client resources for grief support and counseling. Client Response:: Client responded well to session, tearful throughout. Client appeared open to meeting with therapist and discussing discharge. Client reported feeling like she is going crazy sometimes during the grieving process as client will feel all the emotions at once or none at all. Client stated she has been increasingly irritable as well and has urges to yell at her grandson and his mother which then makes client feel guilty. Client and therapist discussed the stages of grief and therapist provided client with an article on what to expect in the grieving process. While reading the article client shared oh my gosh...I really am normal. Client stated she has been having some of the negative thoughts mentioned in the article, which client has been actively challenging. Client also connected with behavioral changes and fatigue that were discussed in the article. Client reported belief coming to [facility] before the loss has helped client prevent major decompensation. Client stated when her father she stayed in bed for 3-months, but client has been using other strategies to cope with the loss of her son and not turning to isolation which increases depression. Client shared her friends have told her that she is handling this loss better than she has handled other losses in the past which demonstrates progress. Client and therapist discussed aftercare and discharge and client reported belief she is ready to leave IOP and start grief counseling. Client recognized that she has made progress in IOP and that grief counseling will be more effective for her mental health needs at this time. Client receptive to joining a grief support group and scheduling an appointment for grief counseling. Client shared her grandson would benefit from grief counseling as well and client wants to get him connected to services. Risks/Concerns:: Client reports ongoing grief associated with the loss of her son where client will feel numb and want to be with him, but client denies active suicidal ideation, plan, and intent as of 02/23/18. Client reports ability to maintain safety. Progress Toward Goals/Plan:: Despite client's recent acute stressor and grief, client has made progress towards her treatment goals as shown by her report of generalizing healthy coping skills to manage her symptoms and statement of if I didn't come to the program before this happened, I would be a wreck. Client also progressed with being medication compliant, reaching out to supports, and challenging negative self-talk per client's report. Client continues to struggle with depression brought on by the loss of her son two weeks ago and can continue to benefit from ongoing grief and individual counseling. Client recommended to follow up with [facility] for individual counseling and Dr. Espinal for medication management. Client also open to getting grief counseling and asked therapist to set up an appointment with [facility]. Time Stopped:: 15:30
--- NOTE | 2018-02-23 15:57 | BH.DS_ITS ---
Discharge Summary - Demographics Date of Admission:: 12/07/17 Discharge Date: 02/23/18 Presenting Problems at Admission:: At admission client reported a long-standing history of depression and anxiety with depressive symptoms worsening over the past two years due to physical limitations caused by a femur and pelvic fracture. Client reported numerous stressors including family discord and caregiving for her 24-year-old grandson. At admission, client endorsed a depressed mood with anhedonia, crying spells, decreased energy, and isolation nearly every day for most of the day. Client?s isolation, avoidance, and procrastination impacted her ability to function at her baseline, make appointments, complete ADLs, and engage in activities she once enjoyed. Client shared increased irritability and anger outbursts which client described as ?I get nasty.? Client endorsed ruminative anxiety and panic attacks 1-2 times per week in which she feels short of breath with chest pressure and heart palpitations. Discharge Diagnoses:: Major depressive disorder F33.1; Anxiety unspecified; Personality disorder Reason for Discharge:: Client has met treatment goals of reducing anxiety, isolation, and depressive symptoms through increased use of healthy coping skills and awareness of warning signs. Additionally, client to be discharged as client and therapist agree due to recent loss client can benefit more from ongoing grief counseling to further process the loss and work towards acceptance. Client did not complete the [facility] surveys at discharge due to lack of time. - Treatment Progress During Treatment & Response: Client appeared to respond well to treatment as shown by her overall consistent attendance, engagement in group, and supportive feedback. Client was an active group member who consistently contributed positively in both individual and group [facility] sessions. Client shared the emotional support and lived experience gained from peers helped client overcome challenges and make ?baby steps.? Client missed a few scheduled group days due to isolation, appointments, and unforeseen circumstances. While in the program, client reported medication compliance and utilization of healthy coping strategies to reduce depression, isolation, and anxiety. At discharge client reported less isolation, increased self-awareness of warning signs and triggers, and increased use of healthy coping skills such as positive self-talk which client stated has helped manage her symptoms. Client was scheduled to discharge from [facility] on 02/08/18 after completing her treatment plan goals and demonstrating progress in managing symptoms. However, client experienced an acute stressor-the loss of her son- and did not discharge at that time. Client did not return to group sessions, but returned to [facility] for an individual session and discharge. Client shared at discharge ?if I wouldn?t have come here before my son I would be even more of a wreck right now.? Client demonstrated resilience during her time in the program as evidenced by her ability to use healthy coping skills, reach out to supports, and maintain helpful routines despite grief. Issues Still to be Addressed:: Client made progress with increasing awareness of warning signs, triggers, and symptoms which helped client break unhealthy maintenance cycles and use healthy coping skills. However, client recently experienced a significant loss and can continue to benefit from ongoing work on reinforcing healthy coping skills, challenging negative thoughts, and utilizing self-care. Client would benefit from ongoing work on increasing emotional regulation as she is currently grieving and reports increased irritability, anger, impatience, and sadness. Client can also benefit from boundary setting and maintaining a daily routine to prevent isolation and decompensation. There is a concern post [facility] discharge that client may return to isolation and some other forms of unhealthy coping due to her recent loss. Discharge Recommendations/Instructions:: Client recommended to follow up with grief counseling at [facility]. Client has an appointment on Tuesday at 10:00am. Client also recommended to follow up with individual counseling at [facility] with Diamond Carson that was set up prior to her scheduled discharge date. Client missed her intake appointment due to the loss of her son, but [facility]. Lastly, client encouraged to follow up with Dr. Espinal for medication management. Discharge Handout: Complete Discharge Handout with client on aftercare options and continuity of care.
--- NOTE | 2018-02-23 16:03 | BH.AFTERPLAN ---
Aftercare Plan - Demographics Treatment End Date:: 02/23/18 Psychiatrist:: Alysha Padilla Psychiatrist Office #:: [id number] [facility] Therapist:: Sandie Contreras Therapist Phone #:: [phone] - Medications Home Medications: Home Medications Calcium Carb/Vitamin D [Os-Chi 500MG + D] 1 tablet PO BIDCM #60 tablet 09/19/15 Albuterol Inhaler [Ventolin Hfa] 1 - 2 puff INHALATION Q4H PRN PRN 11/02/16 Ergocalciferol [Vitamin D] 50,000 unit PO TU 11/02/16 Gabapentin [Neurontin] 300 mg PO TID 11/02/16 Iron Carbonyl [Feosol] 45 mg PO DAILYCM 11/02/16 Multivitamin [Multiple Vitamins] 1 each PO DAILY 11/02/16 Polyethylene Glycol 3350 [Miralax] 17 gm PO DAILY PRN 11/02/16 Senna/Docusate Sodium [Senokot-S] 2 tablet PO BID PRN 11/02/16 Oxycodone [Oxyir] 5 - 10 mg PO Q4H PRN PRN #60 tablet 11/03/16 Cyclobenzaprine [Flexeril] 10 mg PO DAILY PRN 12/09/17 Estradiol [Estrace] 2 mg PO DAILY 12/09/17 Omeprazole 20 mg PO DAILY 12/09/17 Phentermine HCl [Adipex-P] 37.5 mg PO DAILY 12/09/17 Raloxifene HCl [Evista] 60 mg PO DAILY 12/09/17 Duloxetine Hcl [Cymbalta] 60 mg PO DAILY 01/20/18 - Plan Details Progress/Aftercare Plan Details:: You have shown progress with using healthy coping skills to manage depression and anxiety. You used to isolate and stay in bed which would increase depression, but you've learned the benefits of not isolating and now you can talk yourself out of going back to bed much easier! You have been able to use positive self-talk, deep breathing, and thought challenging to manage anger, anxiety, and negative thinking. You have reached out to supports, made positive connections in [facility], and increased awareness of warning signs and triggers for your mental health. You have been through a lot recently, and you are grieving, but you recognize that because of the progress you've made at [facility] you have been able to prevent isolating and use healthy coping to manage your emotions during this time. Strategies for Success:: 1. Stay out of that bed!! Remember the benefits of not going back to bed. 2. Challenge those negative thoughts! Don't should, would, could on yourself. 3. Remember you are NORMAL! You are grieving and it is okay to feel the way you feel. 4. Use your deep breathing and positive self-talk. 5. Use your supports, let them know what you need and be open to positive ideas. 6. Set small goals! You don't have to clean your entire house in a day, but you can do one small thing that gives you a sense of accomplishment. 7. Be mindful- pray, 5-senses, music, spending time with [facility]. 8. SELF-CARE!! It's okay to set boundaries and do things to help your mental health. 9. Remember to give yourself credit for the progress you made here. 10. Give yourself time, be patient with your mental health and grief. - Appointments Appointments/Referrals to Other Services:: 1. Dr. Espinal for medication management 2. Diamond Carson at [facility] 3. Grief support group starting in March at [facility] in [place] -I will call you once I find out more details. 4. Grief counseling at [facility]. I will call them Tuesday to set up an appointment for you.
== END 2018-02-23 14:00 | disposition home or self-care (01) ==
LOC: BHIOP 09:00
PROVIDERS: Family Provider Family Medicine Geriatric Medicine; PCP Family Medicine Geriatric Medicine; Visit Provider Psychiatry & Neurology Psychiatry
DX: F33.1 Major depressive disorder, recurrent, moderate (principal); F41.9 Anxiety disorder, unspecified; F60.9 Personality disorder, unspecified
CPT/HCPCS: H0035; 90837

== ENCOUNTER → 2018-04-06 12:06 | Outpatient (CLI) | payer MEDICARE, OTHER, SELFPAY | PROVIDERS: Family Provider Family Medicine Geriatric Medicine; PCP Family Medicine Geriatric Medicine; Visit Provider Family Medicine Geriatric Medicine | DX: N39.0 Urinary tract infection, site not specified (principal) | CPT/HCPCS: 87086; 87088 ==

== ENCOUNTER → 2018-05-17 14:01 | Outpatient (CLI) | payer MEDICARE, OTHER, SELFPAY ==
[2018-05-17 16:19] LABS: Absolute Lymphocyte Count 2.31 X10^3/ul (0.83-4.51); Absolute Neutrophil Count 3.4 X10^3/uL (2.0-7.7); Basophil# 0.04 X10^3/uL; Basophil% 0.6 % (0-1); Eosinophil# 0.03 X10^3/uL; Eosinophils% 0.5 % (0-5); Hematocrit 39.1 % (37-47); Hemoglobin 12.7 g/dl (12.0-15.0); Lymphocyte # 2.31 X10^3/ul (4.0); Lymphocyte % 37.1 % (19-41); Mean Corp Hgb Conc 32.5 g/gl (32-36); Mean Corpuscular Hgb 27.7 pg (27.0-32.0); Mean Corpuscular Volume 85.2 fL (81-99); Mean Platelet Vol. 11.2 fl (6.2-12.0); Monocyte# 0.42 X10^3/uL; Monocyte% 6.7 % (0-10); Neutrophil # 3.43 X10^3/uL (2.7-7.7); Neutrophil % 55.1 % (47-70); Platelet Count 302 K/mm3 (150-450); RBC Distribution Width CV 15.1 % (11.6-14.6); RBC Distribution Width SD 46.6 fl (35.1-43.9); Red Blood Count 4.59 M/mm3 (4.2-5.4); White Blood Count 6.2 K/mm3 (4.4-11.0)
[2018-05-17 16:21] LABS: POSITIVE COUNT NO; POSITIVE DIFFERENTIAL NO; POSITIVE MORPHOLOGY NO
[2018-05-17 16:41] LABS: Vitamin D,25 Hydroxy 30.4 ng/mL (29.95-100.01)
[2018-05-17 16:54] LABS: Thyroid Stim Hormone (TSH) 2.57 uIU/mL (0.358-3.74)
== END ==
PROVIDERS: Family Provider Family Medicine Geriatric Medicine; PCP Family Medicine Geriatric Medicine; Visit Provider Family Medicine Geriatric Medicine
DX: E55.9 Vitamin D deficiency, unspecified (principal); R53.83 Other fatigue
CPT/HCPCS: 36415; 82306; 84443; 85025

== ENCOUNTER → 2018-05-30 15:51 | Outpatient (CLI) | payer MEDICARE, OTHER, SELFPAY ==
--- NOTE | 2018-05-30 15:58 | RAD_ITS ---
STUDY: X-RAY - RIGHT FOOT CLINICAL: Female, 68 years old. Fall over cane to 3 weeks ago, pain in the fourth digit, swelling TECHNIQUE: 3 view(s) of the foot. COMPARISON: None. FINDINGS: There is a plantar calcaneal spur. Calcifications of the lower leg likely represent vascular/venous cause. Normal visualized subtalar, talonavicular, calcaneocuboid, tarsal and tarsometatarsal articulations. Normal metatarsi. Normal metatarsophalangeal joint of the great toe. Normal tibial and fibular sesamoid bones. Normal interphalangeal joint of the great toe. Normal phalanges of the great toe. Normal second through fifth metatarsophalangeal joints. Transverse fracture through the distal aspect of the fourth proximal phalanx without significant displacement. Fracture line is indistinct compatible with a subacute fracture. There is soft tissue swelling of the fourth digit. RAD/Foot min 3 Views IMPRESSION: 1. Nondisplaced fourth proximal phalanx fracture, subacute. Electronically Signed: Joe Whitney MD at 18:48 EST , Service support ,
--- NOTE | 2018-05-30 15:59 | RAD_ITS ---
STUDY: X-RAY RIGHT FOOT, 4th TOE REASON FOR EXAM: Female, 68 years old. Fall over cane to 3 weeks ago, pain in the fourth digit, swelling TECHNIQUE: 3 view(s) of the toe were obtained. COMPARISON: None. FINDINGS: Normal visualized metatarsus. Normal metatarsophalangeal (M.T.P) joint. Normal interphalangeal joints. . Transverse fracture through the distal aspect of the fourth proximal phalanx without significant displacement. Fracture line is indistinct compatible with a subacute fracture. The soft tissue structures are unremarkable. RAD/Toe(s) Min 2 Views IMPRESSION: Nondisplaced fourth proximal phalanx fracture, subacute. Electronically Signed: oJe Whitney MD at 21:04 EST , Service support ,
== END ==
PROVIDERS: Family Provider Family Medicine Geriatric Medicine; PCP Family Medicine Geriatric Medicine; Referring Provider Family Medicine Geriatric Medicine; Visit Provider Family Medicine Geriatric Medicine
DX: M25.571 Pain in right ankle and joints of right foot (principal)
CPT/HCPCS: 73630; 73660

== ENCOUNTER 2018-10-15 14:50 | Emergency (ER) | payer MEDICARE, OTHER, SELFPAY ==
[2018-10-15] VITALS (11 sets, daily range): BP systolic 116–143; BP diastolic 67–83; PULSE 102–124; RESP 14–24; TEMP 36.4–37.1; O2SAT 95–98; BMI 38.9
--- NOTE | 2018-10-15 15:54 | EKG12_ITS ---
Test Reason : SOB Blood Pressure : / mmHG Vent. Rate : 099 BPM Atrial Rate : 099 BPM P-R Int : 130 ms QRS Dur : 092 ms QT Int : 406 ms P-R-T Axes : 042 -29 183 degrees QTc Int : 521 ms Normal sinus rhythm T wave abnormality, consider lateral ischemia Prolonged QT Abnormal ECG When compared with ECG of 03-NOV-2016 10:17, Premature ventricular complexes are no longer Present T wave inversion now evident in Lateral leads Confirmed by CECILIO TAFOYA, SIERRA ([id number]), market editor JUSTIN DAVID ([id number]) on 10/23/2018 4:59:42 PM Referred By: MELLISA Confirmed By:SIERRA HERNANDES MD
--- NOTE | 2018-10-15 15:54 | RAD_ITS ---
STUDY: X-RAY CHEST REASON FOR EXAM: Female, 68 years old. Increasing shortness of breath for one week TECHNIQUE: PA and lateral views of the chest. COMPARISON: 08/16/2015 FINDINGS: There are fibrotic changes of both lung bases. Small loculated pleural fluid the left lung base is new since the prior study. There is mild cardiac enlargement. Normal mediastinum and eileen. Normal visualized pulmonary arteries. There is atherosclerotic calcification of the aortic arch with tortuosity. There is demineralization of the osseous structures. Normal visualized ribs, clavicles, and shoulders. There are operative changes of the upper abdomen. RAD/Chest PA and Lateral IMPRESSION: 1. Small loculated left pleural effusion is new since prior study. 2. Cardiomegaly. 3. Fibrotic changes of the bilateral lung bases. Electronically Signed: Joe Whitney MD at 16:49 EDT , Service support ,
[2018-10-15 16:03] LABS: Absolute Lymphocyte Count 2.56 X10^3/ul (0.83-4.51); Absolute Neutrophil Count 4.3 X10^3/uL (2.0-7.7); Basophil# 0.05 X10^3/uL; Basophil% 0.7 % (0-1); Eosinophil# 0.06 X10^3/uL; Eosinophils% 0.8 % (0-5); Hematocrit 36.3 % (37-47); Hemoglobin 11.7 g/dl (12.0-15.0); Lymphocyte # 2.56 X10^3/ul (4.0); Lymphocyte % 33.6 % (19-41); Mean Corp Hgb Conc 32.2 g/gl (32-36); Mean Corpuscular Hgb 26.8 pg (27.0-32.0); Mean Corpuscular Volume 83.1 fL (81-99); Mean Platelet Vol. 10.1 fl (6.2-12.0); Monocyte# 0.68 X10^3/uL; Monocyte% 8.9 % (0-10); Neutrophil # 4.26 X10^3/uL (2.7-7.7); Neutrophil % 55.9 % (47-70); Platelet Count 320 K/mm3 (150-450); RBC Distribution Width CV 15.7 % (11.6-14.6); RBC Distribution Width SD 47.4 fl (35.1-43.9); Red Blood Count 4.37 M/mm3 (4.2-5.4); White Blood Count 7.6 K/mm3 (4.4-11.0)
[2018-10-15 16:05] LABS: POSITIVE COUNT NO; POSITIVE DIFFERENTIAL NO; POSITIVE MORPHOLOGY NO
[2018-10-15 16:15] LABS: Anion Gap 5 (5-15); BUN 18 mg/dL (7-18); BUN/Creat Ratio 23.5 RATIO (10-20); Calcium,Total 8.4 mg/dL (8.5-10.1); Chloride 107 mmol/L (98-107); Creatinine, Serum 0.77 mg/dL (0.55-1.02); EST Glomerular Filtration Rate 79 mL/min (>60); Est Glom Filt Rate - Afr Amer 96 mL/min (>60); Estimated Creatinine Clearance 72.31 ml/min; Glucose 104 mg/dL (74-106); Potassium 3.5 mmol/L (3.5-5.1); Sodium Level 141 mmol/L (136-145)
[2018-10-15] MEDS: Albuterol 2.5 MG/3 ML VIAL.NEB. INHALATION (16:18)
[2018-10-15] MEDS: Ipratropium/Albuterol Sulfate 3 ML AMPUL.NEB INHALATION (16:18)
[2018-10-15 16:31] LABS: BNP,B-Type NATRIURETIC PEPTIDE 1307.8 pg/mL (0-100)
--- NOTE | 2018-10-15 17:53 | CT_ITS ---
STUDY: CTA CHEST REASON FOR EXAM: Female, 68 years old. Dyspnea for one week, worsened last evening. RADIATION DOSAGE (If Supplied By Facility): CTDIvol = ( 20.2 ) mGy, DLP = ( 443.22 ) mGycm TECHNIQUE: The examination was performed with the intravenous administration of 75 ml IV Isovue 370. Post-processing of the angiographic images was performed, with multiplanar reformation and 3D reconstruction. Individualized dose optimization techniques were used for this CT. COMPARISON: None. FINDINGS: Cardiac monitoring leads are present. Normal enhancement of the main pulmonary artery and right and left pulmonary arteries. Normal enhancement of the bilateral peripheral pulmonary arteries. There is no demonstrated pulmonary embolism. There is atherosclerotic calcification of the aortic arch with tortuosity. There is no demonstrated aortic dissection. There is cardiomegaly. Normal mediastinum. Normal hilar regions. Normal visualized trachea and bronchi. The lungs are well expanded. There is bilateral lower lobe airspace consolidation and atelectasis. There are small bilateral pleural effusions. Normal chest wall structures. The bones appear osteopenic. There are multiple compression fractures involving most of the thoracic and lumbar vertebral bodies. There is deformity of several right-sided ribs suggesting old rib fractures. A surgical sutures are visible within the stomach. There is a right-sided renal cyst measuring approximately 3.2 cm. Mesh material is visible adjacent to the anterior abdominal wall probably related ventral herniorrhaphy. CT/CTA Chest W/WO Contrast IMPRESSION: 1. No CTA demonstrated pulmonary embolism or arterial dissection. 2. Bilateral basilar airspace consolidation and atelectasis. 3. Bilateral pleural effusions. 4. Cardiomegaly and sequela of coronary artery vascular disease. Electronically Signed: Prachi Chambers MD at 19:00 EDT , Service support ,
[2018-10-15] MEDS: Furosemide 40 MG/4 ML Vial IV (18:17)
--- NOTE | 2018-10-15 19:12 | ED.RN ---
PT ASSISTED UP TO B[facility], PT HAS INCREASED URINE OUTPUT FOLLOWING FUROSEMIDE ADMINISTRATION.
--- NOTE | 2018-10-15 19:42 | ED.VISSUMM ---
- ER Visit Summary Date of Service: 10/15/18 Chief Complaint: Shortness of breath History of Present Illness: The patient is a 68 F who tells me that this past week she woke up a couple times from sleep with a sensation of dyspnea. She notes a little bit of a low-grade fever around 9899. She feels a little bit fatigued. She went to the urgent care felt that with her dyspnea and her leg swelling she should come to the emergency room. She notes her leg swelling is been increased off of its baseline. She states that her doctor will not prescribe her Lasix as she has had some problems with dehydration in the past. He does not have a assistant printer floor covering. She denies any chest pain. She does not know if she is ever had a stress test heart catheterization or echocardiogram. Physical Examination: Afebrile vital signs show a slight tachycardia at 106. 97% on room air Gen: Well-nourished well-developed Head: Normocephalic atraumatic Eyes: Perrl EOMI ENT: TMs clear no rhinorrhea moist mucous membranes Neck: Supple no lymphadenopathy no JVD nontender CVS: Regular rate tachycardic rhythm no murmurs normal S1-S2 Respiratory: No distress there are faint rales at the bases that clear with a cough chest nontender Abdomen: Soft nontender nondistended normal bowel sounds no masses Back: Nontender Extremity: Nontender 2+ lower extremity edema Skin: Normal color no rash Neuro: alert orientated ?3 CN II-XII intact normal strength sensation reflexes gait cerebellar Psych: Normal affect normal mood Test Results: EKG shows a sinus rhythm at a rate of 99 chest x-ray shows small pleural effusions bilaterally and mild congestion. CTA of the chest to him straits no evidence of PE or dissection. Beta natruretic peptide is elevated over 1000. Emergency Department Course and Treatment: Patient received Lasix and she states her breathing is significantly improved. She is talking better. She is able to ambulate in the hallway without being hypoxic or symptomatic. She still has a slight tachycardia and she cannot tell me what her heart rate normally is. She would like to go home I think it is reasonable at this time to do a trial. She can have a friend who is a nurse stay with her. I will write for Lasix for the next few days and have asked her to follow-up with cardiology. Impression: 1. CHF exacerbation This note was generated with [employer] dictation software. It may contain incorrect words, spelling, and punctuation that were not noted in review of the chart prior to signing ED Disposition - Plan for ED Patient: Disposition: Home or Assisted Living Instructions: ED CHF General Prescriptions: Furosemide [Lasix] 40 mg PO DAILY #5 tab Referrals: Charlie Ovalle MD [STAFF PHYSICIAN] - (call to arrange follow up - inform them you are following up from the Emergency Department)
== END 2018-10-15 20:05 | disposition home or self-care (01) ==
PROVIDERS: Emergency Provider Emergency Medicine; Family Provider Family Medicine Geriatric Medicine; PCP Family Medicine Geriatric Medicine
DX: J44.1 Chronic obstructive pulmonary disease with (acute) exacerbation (principal); K21.9 Gastro-esophageal reflux disease without esophagitis; E66.9 Obesity, unspecified; Z79.899 Other long term (current) drug therapy; Z87.891 Personal history of nicotine dependence
CPT/HCPCS: 71046; 71275; 80048; 83880; 84484; 85025; 93005; 94640; 96374; 99284; Q9967; A4216; J1940

== ENCOUNTER → 2018-11-13 | Outpatient (CLI) | payer MEDICARE, OTHER, SELFPAY ==
[2018-10-23 14:51] VITALS: BMI 34.9
--- NOTE | 2018-11-13 06:58 | ECHOCS_ITS ---
Reason For Study: CHF Procedure This was a 2D Doppler, Color Flow transthoracic echocardiogram. Contrast injection was performed. Exam performed in department. Left Ventricle Moderately dilated left ventricle. The estimated ejection fraction is 30 %. Stage 1 diastolic dysfunction. There is moderate to severe global hypokinesis of the left ventricle. Right Ventricle Normal RV size. Normal systolic function. Atria The left atrium is moderately enlarged. Normal right atrium. Mitral Valve Normal mitral valve. Mild (1+) mitral valve insufficiency. Tricuspid Valve Normal tricuspid valve. Mild tricuspid valve insufficiency. Pulmonary artery systolic pressure is 40 mmHg. Mild pulmonary hypertension. Aortic Valve Trisinus/trileaflet aortic valve. Normal aortic valve. Mild (1+) aortic valve insufficiency. Pulmonic Valve Normal pulmonic valve. Trivial pulmonic valve insufficiency. Great Vessels Normal aortic root. The pulmonary artery is normal size. Normal inferior vena cava. Pericardium/Pleural No pericardial effusion. Medication Diluted definity 3ml given slow IV push to enhance endocardial definition. MMode/2D Measurements & Calculations LVIDd: 6.0 cm IVSd: 1.6 cm Ao root diam: 2.8 cm LVIDs: 5.2 cm LVPWd: 1.3 cm RVDd: 3.3 cm FS: 13.5 % LAV(MOD-bp): 93.5 ml LVAd ap4: 41.8 cm2 SV(MOD-sp4): 38.8 ml LAV(MOD-bp) Indexed: 53.0 ml/m2 EDV(MOD-sp4): 186.9 ml LAV(MOD-sp2): 86.8 ml EDV(sp4-el): 192.2 ml LAV(MOD-sp4): 102.1 ml LVAs ap4: 37.1 cm2 ESV(MOD-sp4): 148.2 ml ESV(sp4-el): 153.9 ml EF(MOD-sp4): 20.7 % EF(sp4-el): 20.0 % SV(sp4-el): 38.4 ml LA A4 area: 26.3 cm2 LA dimension(2D): 5.2 cm RA A4 area: 14.8 cm2 Doppler Measurements & Calculations MV E max siva: 58.2 cm/sec Lat Peak E' Siva: 3.1 cm/sec Med Peak E' Siva: 3.4 cm/sec MV A max siva: 87.4 cm/sec E/E' lat: 18.8 E/E' med: 17.0 MV E/A: 0.67 Ao V2 max: 117.8 cm/sec AI max siva: 356.1 cm/sec LV V1 max: 81.6 cm/sec Ao max P.5 mmHg AI max P.9 mmHg LV V1 max P.7 mmHg Ao V2 mean: 84.9 cm/sec Ao mean P.1 mmHg AI dec slope: 207.1 cm/sec2 Ao V2 VTI: 26.2 cm AI P1/2t: 503.6 msec PA V2 max: 75.1 cm/sec TR max siva: 307.7 cm/sec TR max P.9 mmHg Interpretation Summary Moderately dilated left ventricle. The estimated ejection fraction is 30 %. Stage 1 diastolic dysfunction. The left atrium is moderately enlarged. Pulmonary artery systolic pressure is 40 mmHg. Mild pulmonary hypertension. Contrast injection was performed. Ordering Physician: Charlie Ovalle Referring Physician: Kishan Espinal Chi Performed By: Nolvia Boland RDCS, RVT
--- NOTE | 2018-11-13 17:37 | STRESSREP ---
Stress Test Report Pharmacologic myocardial perfusion stress test. 68-year-old lady with a history of shortness of breath and congestive heart failure. Stress protocol: Resting EKG demonstrates normal sinus rhythm with a rate of 73 bpm nonspecific T wave inversions are noted. Resting blood pressures 114/70 mmHg. 0.4 mg of regadenoson was infused per usual protocol followed by rapid intravenous saline flush injection continuous EKG monitoring was performed. The maximum heart rate attained was 89 bpm which was 59% of maximum predicted heart rate the maximum workload was 1 metabolic equivalent. At rest there were no ischemic changes noted though diffuse T wave inversions were present. At peak infusion the diffuse T wave inversions remained with occasional premature ventricular complexes. These are not obviously suggestive of ischemia. The resting blood pressure is 114/70 mmHg. Myocardial perfusion protocol. 11.5 mCi of technetium 99m sestamibi was injected at rest. 0.4 mg of regadenoson was infused per usual protocol at peak infusion 33.1 mCi of technetium 99m sestamibi was injected stress images were obtained stress and rest images were reconstructed in comparing the short axis vertical long horizontal long axis. Gated images were also obtained Perfusion SPECT analysis: Review of the stress images demonstrate minimally reduced perfusion noted in the mid anterior wall. The rest of the castro appeared to have normal perfusion present. This was this similar to perfusion noted on the resting images. No obvious ischemia, noted to anterior ischemia cannot be completely excluded. Gated SPECT analysis: The gated ejection fraction is noted to be 35% with global hypokinesis noted. Conclusion: Cardiomyopathy. Cannot exclude mid anterior ischemia-mild
== END | disposition home or self-care (01) ==
LOC: CVS 06:57
PROVIDERS: Family Provider Family Medicine Geriatric Medicine; PCP Family Medicine Geriatric Medicine; Referring Provider Internal Medicine Cardiovascular Disease; Visit Provider Internal Medicine Cardiovascular Disease
DX: R07.9 Chest pain, unspecified (principal); I50.9 Heart failure, unspecified
CPT/HCPCS: 78452; 93017; 93306; A9500; Q9957; A4216; C8929; J2785

== ENCOUNTER → 2018-11-17 | Outpatient (CLI) | payer MEDICARE, OTHER, SELFPAY ==
[2018-11-17 11:28] VITALS: BMI 36.1
[2018-11-17 13:43] LABS: Absolute Lymphocyte Count 2.37 X10^3/ul (0.83-4.51); Absolute Neutrophil Count 2.9 X10^3/uL (2.0-7.7); Basophil# 0.03 X10^3/uL; Basophil% 0.5 % (0-1); Eosinophil# 0.06 X10^3/uL; Hematocrit 38.1 % (37-47); Hemoglobin 12.1 g/dl (12.0-15.0); Lymphocyte # 2.37 X10^3/ul (4.0); Lymphocyte % 41.1 % (19-41); Mean Corp Hgb Conc 31.8 g/gl (32-36); Mean Corpuscular Hgb 26.6 pg (27.0-32.0); Mean Corpuscular Volume 83.7 fL (81-99); Mean Platelet Vol. 9.8 fl (6.2-12.0); Monocyte# 0.43 X10^3/uL; Monocyte% 7.5 % (0-10); Neutrophil # 2.88 X10^3/uL (2.7-7.7); Neutrophil % 49.9 % (47-70); Platelet Count 285 K/mm3 (150-450); RBC Distribution Width CV 16.3 % (11.6-14.6); RBC Distribution Width SD 49.1 fl (35.1-43.9); Red Blood Count 4.55 M/mm3 (4.2-5.4); White Blood Count 5.8 K/mm3 (4.4-11.0)
[2018-11-17 13:53] LABS: POSITIVE COUNT NO; POSITIVE DIFFERENTIAL NO; POSITIVE MORPHOLOGY NO
[2018-11-17 13:58] LABS: Anion Gap 3 (5-15); BUN 20 mg/dL (7-18); BUN/Creat Ratio 27.7 RATIO (10-20); Calcium,Total 8.7 mg/dL (8.5-10.1); Chloride 107 mmol/L (98-107); Creatinine, Serum 0.72 mg/dL (0.55-1.02); EST Glomerular Filtration Rate 85 mL/min (>60); Est Glom Filt Rate - Afr Amer 103 mL/min (>60); Glucose 88 mg/dL (74-106); Potassium 3.9 mmol/L (3.5-5.1); Sodium Level 142 mmol/L (136-145)
== END | disposition home or self-care (01) ==
LOC: LAB 12:28
PROVIDERS: Family Provider Family Medicine Geriatric Medicine; PCP Family Medicine Geriatric Medicine; Referring Provider Internal Medicine Cardiovascular Disease; Visit Provider Internal Medicine Cardiovascular Disease
DX: I42.0 Dilated cardiomyopathy (principal)
CPT/HCPCS: 36415; 80048; 85025

== ENCOUNTER → 2018-12-05 | Day surgery (SDC) | payer MEDICARE, OTHER, SELFPAY ==
--- NOTE | 2008-11-17 11:59 | HP_ITS ---
HPI HPI History of Present Illness Surgical H&P: Yes Details: She is a pleasant 68-year-old lady with no previous cardiac history who says that she has been waking up recently with shortness of breath. She also has a cough and has also noted pedal edema. She did present to the emergency room on 10/15/2018 with the above. She was evaluated and noted to be tachycardic and had a natruretic peptide level which was elevated. She also had an EKG performed which demonstrated normal sinus rhythm with a rate of 109 bpm and T wave inversions noted in lead V3 through V6. There was no prior EKG for comparison. She also had a CT scan of her chest which demonstrated no evidence of pulmonary emboli, small bilateral pleural effusions and cardiomegaly. She has had no dizziness or diaphoresis no near syncope or syncope. She has been started on medication and has been doing quite well. An echocardiogram that was performed demonstrated an ejection fraction of 30%, stage I diastolic dysfunction, moderate to severe global systolic dysfunction, mild mitral tricuspid and aortic regurgitation. She also had a myocardial perfusion stress test which demonstrated minimally reduced perfusion noted in the mid anterior wall. Though there was no obvious ischemia anterior ischemia could not be completely excluded. She says that since starting the Lasix she has felt somewhat better. She has also had chest discomfort on occasion which does not appear to be necessarily related to exercise. It is sometimes sharp and other times dull. Her physical exam here today demonstrates clear lung coats regular rate and rhythm and S3 present and trace pitting edema. Intake Vital Signs 11/17/18 Height 4 ft 11 in 11/17/18 Weight: 179 lb 11/17/18 Body Mass Index (BMI) 36.1 11/17/18 Blood Pressure 102/61 11/17/18 Respiratory Rate 18 11/17/18 Pulse Rate 90 11/17/18 Pulse Ox 97 11/17/18 Body Mass Index (BMI) 34.9 Intake Visit Reasons: 4 wk f/up Allergies diclofenac [From Voltaren] Allergy (Verified 10/23/18 14:53) Rash acetaminophen [From Vicodin] Adverse Reaction (Verified 10/23/18 14:53) Other hydrocodone [From Vicodin] Adverse Reaction (Verified 10/23/18 14:53) Other Medications Calcium Carb/Vitamin D [Os-Chi 500MG + D] 1 tab PO BIDCM #60 tab 09/19/15 [Rx Confirmed 11/17/18] Ergocalciferol [Vitamin D] 50,000 unit PO TU 11/02/16 [History Confirmed 11/17/18] Omeprazole 20 mg PO DAILY 12/09/17 [History Confirmed 11/17/18] Duloxetine Hcl [Cymbalta] 60 mg PO DAILY 01/20/18 [History Confirmed 11/17/18] famotidine 40 mg tablet PO 30 Days #30 tab 10/23/18 [History Confirmed 11/17/18] furosemide 40 mg tablet 40 mg PO DAILY #60 tab 10/23/18 [Rx Confirmed 11/17/18] lisinopril 2.5 mg tablet 2.5 mg PO DAILY #60 tab 10/23/18 [Rx Confirmed 11/17/18] carvedilol 6.25 mg tablet 6.25 mg PO BID #60 tab 11/17/18 [Rx Confirmed 11/17/18] [facility] Medical History Dilated cardiomyopathy (Acute) Acute systolic (congestive) heart failure (Acute) Abnormal electrocardiogram (Chronic) Anemia (Chronic) Bilateral pleural effusion (Chronic) COPD (chronic obstructive pulmonary disease) (Chronic) Depression (Chronic) Frequent falls (Chronic) GERD (gastroesophageal reflux disease) (Chronic) Obesity (Chronic) Obstructive sleep apnea (Chronic) Osteoarthritis (Chronic) Osteoporosis (Chronic) Congestive heart failure (CHF) (Inactive) Surgical History History of (Resolved) History of gastric bypass (Resolved) History of herniorrhaphy (Resolved) History of open reduction and internal fixation (ORIF) procedure (Resolved) History of open reduction and internal fixation (ORIF) procedure (Resolved) History of tonsillectomy (Resolved) Hx of cholecystectomy (Resolved) Family History Mother Diabetes Heart disease Hypertension Hyperlipidemia Father Diabetes Heart disease Hypertension Hyperlipidemia Social History Smoking Status: Former smoker ROS Const Const: Positive for fatigue; negative for weakness, headache(s), frequent falls, difficulty sleeping or excessive sweating Eyes Eyes: Negative for loss of peripheral vision, transient loss of vision, blurry vision, double vision or tunnel vision ENT ENT: Negative for headache(s), dizziness, Nosebleed/epistaxis or balance problems Cardio Chest Pain: No Palpitations: No Edema: Bilateral Muscle aches with walking: None Resp Respiratory: Positive for SOB with activity; negative for SOB at rest, SOB orthopnea\SOB lying down, Cough or paroxysmal nocturnal dyspnea GI GI: Negative nausea, vomiting, heartburn or black,tarry stools : Negative for hematuria Musc Musc: Negative for muscle aches/ myalgia, muscle weakness, joint pain or balance problems Skin Skin: Negative non-healing lesions, rash or unusual bruising Neuro Neuro: Negative for dizziness, lightheadedness, near syncope, syncope, orthostatic symptoms, frequent falls, headache(s), weakness, blurry vision, double vision or lack of coordination Delvis Hematologic/Lymphatic: Negative for easy bleeding or easy bruising Endo Endo: Positive for fatigue; negative for excessive sweating or increased thirst/drinking Psych Psych: Negative for anxiety or depression Allergy Allergy/Immunology: Negative for hives, Negative for rash Cardiology Exam Const Appearance: cooperative, healthy appearing, no acute distress, well developed and well groomed Nutritional Appearance: average body habitus and well nourished Orientation: alert, awake and oriented x3 Head Head: normal to inspection, normocephalic and atraumatic Ears: hearing grossly normal bilaterally and external ears normal Nose: external nose normal, nares normal, nasal mucous membranes and turbinates normal, septum normal, no nasal discharge Face and Sinus: face symmetric Mouth: oral mucosae normal, tongue normal, oropharynx normal and moist mucous membranes Teeth and gingiva: dentition normal Throat: posterior oropharynx normal, tonsils normal and uvula midline Eyes General: appearance normal, both eyes and all related structures Eyelids: eyelids normal Conjunctivae: conjunctivae normal Pupils: PERRL, normal by confrontation and accommodation normal EOM: EOM intact bilaterally Neck Neck: normal visual inspection, trachea midline and no JVD JVD: +5 Carotids: normal carotid upstroke and bounding pulses Chest Chest inspection: normal inspection of the chest, symmetric chest movement and normal respiratory effort Auscultation: Bilateral: Clear to Auscultation Cardio Palpation: normal PMI Rate: regular rate Rhythm: regular rhythm Heart sounds: S1 normal, S2 normal and normal, physiologic split S2; negative rub, gallop or murmur GI GI: normal to inspection, soft, no hepatosplenomegaly and bowel sounds present Neuro General: alert, awake, oriented x3, gait normal, moves all extremities and no focal sensory deficit Skin Skin: no rashes or lesions noted Extremities Pulses: Normal: Right Femoral Pulse, Left Femoral Pulse, Right Dorsalis Pedis Pulse, Left Dorsalis Pedis Pulse, Right Posterior Tibial Pulse, Left Posterior Tibial Pulse, Right Radial Pulse, Left Radial Pulse Lower Extremity Edema: None: Bilateral Musculoskel Musculoskeletal: No joint tenderness Psych Psychological: normal affect Assessment & Plan 1. Dilated cardiomyopathy I42.0 Plan She appears to have a dilated cardiomyopathy the etiology of which is not entirely clear. She is doing better since she was started on medication. My recommendation is to increase her carvedilol to 6.25 mg twice a day, continue the lisinopril, and continue the Lasix. I would also recommend that we obtain a cardiac catheterization to exclude obstructive coronary disease due to the equivocal nature of his stress test. Depending on the findings further recommendations will be made. Risk benefits and alternatives have been explained to her she understands and agrees to proceed. I did suggest to her that if in 3 months there is been no significant improvement then she may be a candidate for primary defibrillator implantation. Orders Orders: 12 Lead EKG performed by [facility] Today Left Heart Cath/COR/LV Percut Today Basic Metabolic Profile (BMP) Today CBC W/Diff, Automated Today Echo Complete 3 Months 2. Acute systolic (congestive) heart failure I50.21 Plan She does have a history of congestive heart failure and will remain on the beta- dulce ENE inhibitor and diuretics. Salt restriction has been emphasized as well as teaching regarding congestive heart failure. Thank you for allowing me to participate in the care of your patient. 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
[2018-10-23 14:51] VITALS: BMI 34.9
[2018-11-17 11:28] VITALS: BMI 36.1
[2018-12-01 09:30] VITALS: BMI 36.1
--- NOTE | 2018-12-05 08:25 | CL.D_ITS ---
Patient Name: BETH HARTMAN I Study Date: 12/05/2018 Performing: Charlie Ovalle MD Ht: 59.05 inches 150 cm : 1950 Wt: 178.57 lbs 81 kg Age: 68 Gender: female BSA: 1.76 PROCEDURE(S) PERFORMED QT16-ZLW/COR/LV CLINICAL PROFILE AND INDICATIONS Indications: Cardiomyopathy Heart Failure: NYHA Class: 3, Newly Diagnosed: Yes, Heart Failure Type: Systolic Stress/Imaging Date: 11/08/2018 CAD Presentations: No Sxs, no angina. CONCLUSIONS Normal coronary arteries Cardiomyopathy: Dilated RECOMMENDATIONS Medical therapy DESCRIPTION OF PROCEDURE The patient arrived to the procedure lab. The risks and benefits of the procedure as well as a full d escription of our services here and current unavailability of surgical backup were fully explained to the patient and/or their significant other prior to the catheterization. The Timeout was completed, verifying the correct patient and procedure. The patient's procedural site was prepped and draped in the usual fashion. Local anesthetic was given subcutaneously to right radial region with Lidocaine 2% . Using a modified Seldinger technique, arterial access was obtained via the right radial artery, a 6 Fr sheath was inserted. Right Coronary Artery selective angiography was then performed in multiple v iews using a 5 Fr. 4.0 [place] catheter. Left Coronary Artery selective angiography was performed in mu ltiple views using a 5 Fr. 4.0 [place] catheter. Left Ventriculography was performed in STACY projection using a 5 Fr. Pigtail catheter. LV to AO pullback pressures were then recorded.The arterial sheath was pulled and a TR Band was applied for hemostasis w/ 14ml air CORONARY ANGIOGRAPHY DOMINANCE: Right Dominant LEFT HEART ASSESSMENT Left Ventricular Ejection Fraction: by LV Gram 25 % Global Hypokinesis - Severe Depressed Left Ventricular systolic function LEFT MAIN: Angiographically normal LEFT ANTERIOR DESCENDING ARTERY: Angiographically normal CIRCUMFLEX ARTERY: Angiographically normal RIGHT CORONARY ARTERY: Angiographically normal COMPLICATIONS No Complications PROCEDURE MEDICATIONS Versed 1 mg IV Fentanyl 50 mcg IV Versed 1 mg IV Oxygen: 2 L/min via nasal cannula Heparin diluted in 23cc Heparinized saline. Patient given 1/3 IA of this solution. 12/05/2018 07:52:3 0 Verapamil 2.5mg, Ntg 100mcgs, 2000 units of Heparin diluted in 23cc Heparinized saline. Patient give n 1/3 IA of this solution. 12/05/2018 07:52:30 SUMMARY OF HEMODYNAMIC DATA Time AIR REST ECG 07:31:29 AO 111/58 (79) SA 07:54:38 LV 137/2, 15 07:59:20 LV 127/2, 14 07:59:27 LV 124/5, 14 08:00:38 LVp 126/5, 14 08:00:42 AOp 124/56 (84) 08:00:47 Signed By Charlie Ovalle MD On 12/05/2018 8:24:40 AM Charlie Ovalle MD
== END | disposition home or self-care (01) ==
LOC: CLSP 06:50
PROVIDERS: Family Provider Family Medicine Geriatric Medicine; PCP Family Medicine Geriatric Medicine; Referring Provider Internal Medicine Cardiovascular Disease; Visit Provider Internal Medicine Cardiovascular Disease
DX: I42.0 Dilated cardiomyopathy (principal); I50.21 Acute systolic (congestive) heart failure; J44.9 Chronic obstructive pulmonary disease, unspecified; F32.9 Major depressive disorder, single episode, unspecified; K21.9 Gastro-esophageal reflux disease without esophagitis; E66.9 Obesity, unspecified; Z68.36 Body mass index [BMI] 36.0-36.9, adult; G47.33 Obstructive sleep apnea (adult) (pediatric); M19.90 Unspecified osteoarthritis, unspecified site; M81.0 Age-related osteoporosis without current pathological fracture; Z86.2 Personal history of diseases of the blood and blood-forming organs and certain disorders involving the immune mechanism; Z79.82 Long term (current) use of aspirin; Z79.899 Other long term (current) drug therapy; Z87.891 Personal history of nicotine dependence
CPT/HCPCS: 93458; 99152; 99153; J7040; Q9967; C1769; C1894

== ENCOUNTER → 2018-12-19 | Outpatient (CLI) | payer MEDICARE, OTHER, SELFPAY ==
[2018-12-01 09:30] VITALS: BMI 36.1
[2018-12-19 12:45] LABS: Absolute Lymphocyte Count 1.94 X10^3/ul (0.83-4.51); Absolute Neutrophil Count 3.1 X10^3/uL (2.0-7.7); Basophil# 0.04 X10^3/uL; Basophil% 0.7 % (0-1); Eosinophil# 0.04 X10^3/uL; Eosinophils% 0.7 % (0-5); Hemoglobin 12.4 g/dl (12.0-15.0); Lymphocyte # 1.94 X10^3/ul (4.0); Lymphocyte % 35.1 % (19-41); Mean Corp Hgb Conc 31.8 g/gl (32-36); Mean Corpuscular Volume 84.8 fL (81-99); Mean Platelet Vol. 10.1 fl (6.2-12.0); Monocyte% 7.2 % (0-10); Neutrophil % 56.1 % (47-70); Platelet Count 299 K/mm3 (150-450); RBC Distribution Width CV 17.8 % (11.6-14.6); RBC Distribution Width SD 55.5 fl (35.1-43.9); White Blood Count 5.5 K/mm3 (4.4-11.0)
[2018-12-19 12:59] LABS: Vitamin D,25 Hydroxy 22.4 ng/mL (29.95-100.01)
[2018-12-19 13:10] LABS: ALB/GLOB Ratio 1.1 RATIO (0.9-2.4); AST(SGOT) 19 U/L (15-37); Alanine Aminotransfer ALT/SGPT 20 U/L (13-56); Albumin, Serum 3.5 g/dL (3.2-5.0); Alkaline Phosphatase 73 U/L (45-117); Anion Gap 4 (5-15); BUN 22 mg/dL (7-18); Calcium,Total 9.1 mg/dL (8.5-10.1); Chloride 104 mmol/L (98-107); Creatinine, Serum 0.76 mg/dL (0.55-1.02); EST Glomerular Filtration Rate 80 mL/min (>60); Est Glom Filt Rate - Afr Amer 97 mL/min (>60); Globulin 3.2 g/dL (2.2-4.2); Glucose 94 mg/dL (74-106); Potassium 3.9 mmol/L (3.5-5.1); Protein, Total 6.7 g/dL (6.4-8.2); Sodium Level 139 mmol/L (136-145); Thyroid Stim Hormone (TSH) 1.68 uIU/mL (0.358-3.74)
[2018-12-19 13:12] LABS: POSITIVE COUNT NO; POSITIVE DIFFERENTIAL NO; POSITIVE MORPHOLOGY NO
== END | disposition home or self-care (01) ==
LOC: POLAB3 09:47
PROVIDERS: Family Provider Family Medicine Geriatric Medicine; PCP Family Medicine Geriatric Medicine; Visit Provider Family Medicine Geriatric Medicine
DX: E55.9 Vitamin D deficiency, unspecified (principal); I10 Essential (primary) hypertension
CPT/HCPCS: 36415; 80053; 82306; 84443; 85025

== ENCOUNTER → 2019-01-05 | Outpatient (CLI) | payer MEDICARE, OTHER, SELFPAY ==
[2018-12-01 09:30] VITALS: BMI 36.1
--- NOTE | 2019-01-05 13:28 | VDLE_ITS ---
Reason For Study: localized edema RIGHT LEFT GSV is normal. GSV is normal. CFV is compressible, spontaneous, phasic, CFV is compressible, spontaneous, phasic, competent and demonstrates normal competent, and demonstrates normal augmentation. augmentation. FV is compressible, spontaneous, phasic, FV is compressible, spontaneous, phasic, competent and demonstrates normal competent and demonstrates normal augmentation. augmentation. POP V is compressible, spontaneous, phasic, POP V is compressible, spontaneous, phasic, competent and demonstrates normal competent and demonstrates normal augmentation. augmentation. T/P Trunk is compressible. T/P Trunk is compressible. PTV is compressible. PTV is compressible. RT PerV is compressible. LT PerV is compressible. Procedure Exam performed in department. The exam was diagnostic. A preliminary report was called and/or faxed to Dr. Espinal @ [phone] @ 2:00 pm. Interpretation Summary Deep veins of the lower extremities are bilaterally patent and compressible segmentally. There is no evidence of deep vein thrombosis on either side. Valvular competence appears intact within the proximal deep venous systems bilaterally. The greater saphenous veins appear bilaterally patent and compressible segmentally. Ordering Physician: Kishan Espinal Referring Physician: Kishan Espinal Chi Performed By: Anita Ervin, RDELOY, RVT
== END | disposition home or self-care (01) ==
PROVIDERS: Family Provider Family Medicine Geriatric Medicine; PCP Family Medicine Geriatric Medicine; Referring Provider Family Medicine Geriatric Medicine; Visit Provider Family Medicine Geriatric Medicine
DX: R60.0 Localized edema (principal)
CPT/HCPCS: 93970

== ENCOUNTER → 2019-01-24 | Outpatient (CLI) | payer MEDICARE, OTHER, SELFPAY ==
[2018-12-01 09:30] VITALS: BMI 36.1
== END | disposition home or self-care (01) ==
LOC: POLAB3 16:09
PROVIDERS: Family Provider Family Medicine Geriatric Medicine; PCP Family Medicine Geriatric Medicine; Visit Provider Family Medicine Geriatric Medicine
DX: N39.0 Urinary tract infection, site not specified (principal)
CPT/HCPCS: 87086; 87088; 87186

== ENCOUNTER → 2019-02-22 | Outpatient (CLI) | payer MEDICARE, OTHER, SELFPAY ==
[2018-12-01 09:30] VITALS: BMI 36.1
--- NOTE | 2019-02-22 13:58 | ECHOD_ITS ---
Version 2 Reason For Study: DYSPNEA Procedure This was a 2D Doppler, Color Flow transthoracic echocardiogram. Exam performed in department. Left Ventricle Normal LV size. Mild concentric left ventricular hypertrophy. Left ventricular systolic function is normal. The estimated ejection fraction is 55 %. Stage 1 diastolic dysfunction. No regional wall motion abnormalities noted. Right Ventricle Normal RV size. Normal systolic function. Atria The left atrium is mildly enlarged. The right atrium is mildly enlarged. Mitral Valve Normal mitral valve. Mild (1+) eccentric mitral valve insufficiency. Tricuspid Valve Normal tricuspid valve. Mild tricuspid valve insufficiency. Pulmonary artery systolic pressure is 35 mmHg. Aortic Valve Normal aortic valve. Pulmonic Valve Normal pulmonic valve. Great Vessels Normal aortic root. The pulmonary artery is normal size. Normal inferior vena cava. Pericardium/Pleural No pericardial effusion. MMode/2D Measurements & Calculations LVIDd: 5.2 cm IVSd: 1.2 cm Ao root diam: 3.0 cm LVIDs: 3.7 cm LVPWd: 1.3 cm RVDd: 3.5 cm FS: 27.7 % LAV(MOD-bp): 71.7 ml LVAd ap4: 39.5 cm2 SV(MOD-sp4): 71.4 ml LAV(MOD-bp) Indexed: 40.7 ml/m2 EDV(MOD-sp4): 142.8 ml LAV(MOD-sp2): 82.8 ml EDV(sp4-el): 151.3 ml LAV(MOD-sp4): 63.2 ml LVAs ap4: 24.7 cm2 ESV(MOD-sp4): 71.5 ml ESV(sp4-el): 71.7 ml EF(MOD-sp4): 50.0 % EF(sp4-el): 52.6 % SV(sp4-el): 79.6 ml LA A4 area: 20.3 cm2 LA dimension(2D): 4.0 cm RA A4 area: 21.3 cm2 Time Measurements MV dec time: 0.36 sec Doppler Measurements & Calculations MV E max siva: 49.9 cm/sec Lat Peak E' Siva: 2.6 cm/sec Med Peak E' Siva: 2.9 cm/sec MV A max siva: 82.7 cm/sec E/E' lat: 19.3 E/E' med: 17.2 MV E/A: 0.60 Ao V2 max: 115.8 cm/sec LV V1 max: 84.1 cm/sec PA V2 max: 98.9 cm/sec Ao max P.4 mmHg LV V1 max P.8 mmHg TR max siva: 274.0 cm/sec TR max P.2 mmHg Interpretation Summary Normal LV size. Mild concentric left ventricular hypertrophy. Left ventricular systolic function is normal. The estimated ejection fraction is 55 %. Stage 1 diastolic dysfunction. Mild tricuspid valve insufficiency. The global longitudinal strain = -15.4% (abnormal). Compared to previous study, the left ventricular systolic function has improved.. Ordering Physician: Charlie Ovalle Referring Physician: ANUP RODRIGUEZ CHI Performed By: Kaylah Contreras, SIMIN, RVT
== END | disposition home or self-care (01) ==
LOC: CVS 13:57
PROVIDERS: Family Provider Family Medicine Geriatric Medicine; PCP Family Medicine Geriatric Medicine; Referring Provider Internal Medicine Cardiovascular Disease; Visit Provider Internal Medicine Cardiovascular Disease
DX: I42.0 Dilated cardiomyopathy (principal)
CPT/HCPCS: 93306

== ENCOUNTER 2019-07-31 11:00 | Outpatient (RCR) | payer MEDICARE, OTHER, SELFPAY ==
[2019-02-28 07:58] VITALS: BMI 35.7
--- NOTE | 2019-07-24 13:33 | HP.OTEVAL ---
Patient's Visit Information ASHER HARTMAN is a 69 year old F, referred to Occupational Therapy by Logan Portillo MD, with a diagnosis of Extraarticular right distal radius fracture; ulnar fracture. Date of Evaluation: 07/24/19 Occupational Therapist: Olya Dexter, OTR/L - Subjective Subjective: Asher arrived for Ot evaluation; she is familar to OT as previously seen for therapy. She noted she fell and fractured right distal radial and ulna. Right extrarticular distal radius fracture noted. She is R handed. Injury occured around 06/06/19. - ADLs Dressing: Underwear, Bra, Button shirt, Coat, Pants, Socks, Shoes, Necktie, Earrings Fasteners: Tie shoes, Buttons, Zippers, Snaps, Grassflat, Belt Eating: Use silverware, Cut food, Butter bread Toileting: Manage clothing Grooming: Shave, Comb hair Kitchen: Peel fruits & vegetables, Open jars, Open bottle caps, Ziplock bags, Lift gallon of milk, Lift saucepan, Take dish out of oven, Load/unload community health outreach worker Household: Vacuum, Laundry Miscellaneous: Use cell phone, Unlock front door, Start car, Open medication bottle, Handle money (change), Hold change, Take things out of wallet, Open envelope, Write, Operate spray bottle, Operate aerosol cans, Pump gas, Drive Comments: She is R hand dominant and noted that everything is difficult at this time. - Pain R wrist 4 Pain Intensity Range: 2, 8 - ROM Forearm: supination R 0-24, L WFL Wrist: flexion R 0-42, L 0-74 ; ext R 0-21, L 0-29 MP: R 2nd 0-25, 3rd 0-39, 4th 0-35, 5th 0-42; L WFL PIP: WFL DIP: WFL ROM Comments: 3.2 from MF to palm; unable to make full composite fist. Able to complete thumb opposition to finger tip of al fingers. 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 . Goal:: Asher to increase R wrist ROM to that at least 60% of L wrist ROM to promote increased mobility needed to complete ADL/IADLs by d/c. Goal:: Asher to increase pain management provision to decrease discomfort and promote increased ability to tolerate additional exercsies 4/5 trials 80% of the time by d/c. Goal:: Asher to be (I) to complete proper wrist mechanics and ergonomics to decrease risk of further injury and promote returning to PLOF by d/c. Goal:: Asher to be (I) to return to all ADl/IAdls including buttons, washing dishes, lower body and upper body dressing, and general ability to complete ADL/IADls ay PLOF by d/c. Goal:: Asher to be (I) to complete daily HEp to promote strength, ednruance, and return to full use fo R dominant hand 4/5 trials 8)% of the time by d/c. - Rehabilitation General Assessment: Asher arrived and Ot evaluation completed on this date of 07/24/19. She exhibit increased stiffness and decreased ROM and strength needed to complete full composite fist. Rehabilitation Potential: Good - Anticipated Interventions Anticipated Interventions: A/AAROM/PROM, Strengthening, Edema Control, Massage, Modalities, Orthoses, Joint Protection/Energy Conservation, Ergonomic Education, Fine Motor Coord/Ross, ADL Training, Education re assistive Equipment, Caregiver Training, Home Program - Visit Plan Frequency: 2x /Week Duration: 4 Weeks General Plan: Asher to complete skilled OT to promote strength, ROM, stability, endurance, participation in ADL/IADLS, and general ability to return to PLOF to promote QOL and general participation for daily tasks by d/c. TEXT: Thank you for the opportunity to evaluate your patient. For Medicare and Medicare HMO plans, please review the plan of care and approve it. It will need to be FAXED BACK to us at [phone] for Medicare purposes. Please let me know if there are questions or concerns regarding this plan of care. Physician Signature: Date:
--- NOTE | 2019-09-07 10:21 | HP.OT.NRP ---
HP - Discharge Summary - Patient Information BETH HARTMAN was seen in my office for initial evaluation on 07/24/19. The following Plan of Care was established for this patient: Initial Frequency: 2x /Week Initial Duration: 4 Weeks Plan: continue POC. Continue PRE and increased fx of R hand to return to PLOF. - Anticipated Interventions Anticipated Interventions: A/AAROM/PROM, Strengthening, Edema Control, Massage, Modalities, Orthoses, Joint Protection/Energy Conservation, Ergonomic Education, Fine Motor Coord/Ross, ADL Training, Education re assistive Equipment, Caregiver Training, Home Program This patient was last seen in our office 07/31/19. Pertinent comments regarding their Occupational therapy will appear below: Called twice for follow- up but no callback and chart to be d/'d. She was busy as recently diagnosed with cancer and was trying to coordinate his appointments. At this point I will be discontinuing this patient from occupational therapy. I would be happy to see this patient again in the future if found appropriate by the physician. Thank you! Olya Dexter, OTR/L
== END 2019-07-31 19:00 | disposition home or self-care (01) ==
LOC: OT 11:00
PROVIDERS: Family Provider Family Medicine Geriatric Medicine; PCP Family Medicine Geriatric Medicine; Referring Provider Specialist; Visit Provider Specialist
DX: S52.551D Other extraarticular fracture of lower end of right radius, subsequent encounter for closed fracture with routine healing (principal); S52.691D Other fracture of lower end of right ulna, subsequent encounter for closed fracture with routine healing
CPT/HCPCS: 97110; 97166; 97530; 97760; 97763

== ENCOUNTER 2019-08-13 09:01 | Emergency (ER) | payer MEDICARE, OTHER, SELFPAY ==
[2019-02-28 07:58] VITALS: BMI 35.7
[2019-08-13 09:02] VITALS: BP 142/73; PULSE 74; RESP 18; TEMP 36.3; O2SAT 95; BMI 36.3
--- NOTE | 2019-08-13 09:27 | ED.DCSUM_ITS ---
- ER Visit Summary Date of Service: 08/13/19 Chief Complaint: Fall with facial injury History of Present Illness: The patient is a 69 F history of CHF. Patient tripped over the strap of her purse today at home fell down striking her face. Denies any LOC. Denies any headache or neck pain. She is on no blood thinners or antiplatelet medications. States her nose was bleeding at home and believes she broke it. Denies any other injuries. No hip pain. Physical Examination: Well-appearing 69-year-old female. Accompanied by family. Vital signs are stable afebrile. H EENT exam her nasal bridge is swollen and tender there is bruising. Consistent with nasal fracture. There is no gross deformity. There is blood in her nares but no active bleeding. Pupils are round reactive to light. Otherwise face is nontender other than a mild abrasion to her left forehead. No significant hematoma. TMs normal no hemotympanum. C- spine nontender. Lungs clear to auscultation bilaterally. Heart regular rhythm no murmur. Chest wall nontender. Abdomen soft nontender. Pelvic girdle intact. No shortening or rotation. Patient is moving all 4 extremities. She has a splint on her right wrist from a recent fracture. She has normal treer strength. Normal dorsi plantarflexion. There is no gross bony deformities of her extremities at this time. There is no acute injury or tenderness. Back is nontender. There is no bruising. Spine is nontender. Neurologically she is awake. She is alert. She knows day, month, year, where she is at and present [facility]. She has no focal motor deficits. She is acting appropriately. Test Results: None. Patient does not meet criteria for imaging at this time. Emergency Department Course and Treatment: Older female tripped and fell. Before the fall she felt fine. She had no LOC. She is a normal neurologic exam. She is not on any type of blood thinner medication. They are comfortable with her not being CAT scan. Clinically she is a nasal fracture. Treatment Plan: Ice to her face. Tylenol for pain. Follow-up as needed. Return if severe headache, intractable vomiting or not acting herself. Disposition: Discharge Impression: Tripped and fell Nasal fracture Facial contusion This note was generated with [employer] software. It may contain incorrect words, spelling, and punctuation that were not noted in review of the chart prior to signing ED Disposition - Plan for ED Patient: Referrals: Kishan Espinal Chi, MD [Primary Care Provider] -
--- NOTE | 2019-08-13 09:30 | ED.DEP ---
ED Disposition - Plan for ED Patient: Disposition: Home or Assisted Living Instructions: HEAD INJURY, No Wake-Up (Adult), FRACTURED NOSE, No x-ray Referrals: Kishan Espinal Chi, MD [Primary Care Provider] - As Needed Additional Instructions: Ice to your face. Do not be surprised you develop more bruising. Tylenol for pain. Clinically you have a broken nose. If it rebleeds hold direct pressure. You may use Clarence-Synephrine or Afrin nasal spray to stop any bleeding that occurs. Return if severe headache, intractable vomiting or not acting right. At this time he did not need a CAT scan.
== END 2019-08-13 09:38 | disposition home or self-care (01) ==
LOC: ED 09:36
PROVIDERS: Emergency Provider Emergency Medicine; PCP Family Medicine Geriatric Medicine
DX: S02.2XXA Fracture of nasal bones, initial encounter for closed fracture (principal); S00.83XA Contusion of other part of head, initial encounter; W01.0XXA Fall on same level from slipping, tripping and stumbling without subsequent striking against object, initial encounter; Y93.9 Activity, unspecified; Y92.9 Unspecified place or not applicable; I50.9 Heart failure, unspecified; Z98.84 Bariatric surgery status; Z79.899 Other long term (current) drug therapy; Z87.891 Personal history of nicotine dependence
CPT/HCPCS: 99282

== ENCOUNTER 2020-05-09 17:51 | Inpatient (IN) | payer MEDICARE, OTHER, SELFPAY ==
[2020-03-06 10:40] VITALS: BMI 36.3
[2020-05-09 17:54] VITALS: BP 110/44; PULSE 58; RESP 16; TEMP 36.3; O2SAT 95; BMI 37.1
--- NOTE | 2020-05-09 18:01 | RAD_ITS ---
STUDY: X-RAY - PELVIS AND RIGHT HIP REASON FOR EXAM: Female, 70 years old. Fall. TECHNIQUE: 3 views of the pelvis and hip. COMPARISON: Left hip, 08/26/2059 FINDINGS: There is a non-specific bowel gas pattern. Normal visualized soft tissue structures. Is evidence of prior hernia repair. Normal bilateral iliac wings, sacroiliac joints and visualized sacrum. Normal bilateral superior and inferior pubic rami. Normal pubic symphysis. Normal bilateral ischial tuberosities. There is evidence of internal fixation of a now healed left intertrochanteric fracture which appears unchanged from the previous study. There is a new displaced intratrochanteric fracture of the right hip. The femoral head remains in normal alignment of the acetabulum. Normal acetabulum. There is mild articular joint space narrowing of the hip. RAD/HIP, UNI W/ Pelvis 2-3 Views IMPRESSION: Mildly displaced intratrochanteric fracture of the right femur. Electronically Signed: Jaspreet Borrego DO at 19:27 EDT Tel [phone], Service support ,
--- NOTE | 2020-05-09 18:01 | EKG12_ITS ---
Test Reason : Blood Pressure : / mmHG Vent. Rate : 059 BPM Atrial Rate : 059 BPM P-R Int : 122 ms QRS Dur : 090 ms QT Int : 494 ms P-R-T Axes : 072 -34 -12 degrees QTc Int : 489 ms Sinus bradycardia Left axis deviation Low voltage QRS Abnormal ECG Confirmed by CECILIO TAFOYA, SIERRA ([id number]), copy editor JONI BOSS ([id number]) on 05/13/2020 11:14:36 AM Referred By: JOSEPH Confirmed By:SIERRA HERNANDES MD
[2020-05-09 18:05] VITALS: BP 106/40; PULSE 61; RESP 14; O2SAT 98
--- NOTE | 2020-05-09 18:05 | ED.DCSUM_ITS ---
History of Present Illness Chief Complaint: Fall Informant: Patient Onset: Today Context: Sudden Onset Timing: Continuous Current Severity: Moderate Maximum Severity: Moderate Narrative: The patient is a 70-year-old female with medical history significant for congestive heart failure and cardiomyopathy, prior left hip fracture that was operatively paired, who presents to the emergency department with right hip injury. Patient walks with a cane. She states that she lost her balance and fell. She landed on her right side. She did not strike her head or lose consc iousness. However, after the fall she was unable to get up. On squad arrival, her leg was shortened and externally rotated. She did receive fentanyl prior to arrival. The patient is not on anticoagulants. Prior similar symptoms: No Recent Illness/Hospitalization: No Past Medical History - Allergies and Home Meds Allergies/Adverse Reactions: Allergies diclofenac [From Voltaren] Allergy (Verified 03/06/20 10:42) Rash acetaminophen [From Vicodin] Adverse Reaction (Verified 03/06/20 10:42) Other hydrocodone [From Vicodin] Adverse Reaction (Verified 03/06/20 10:42) Other Prior records reviewed: Yes Past Medical History: - - CHF, cardiomyopathy, hypertension Surgical History: - - Gastric bypass, tonsillectomy, , cholecystectomy, several incisional abdominal hernia repairs. Smoking Status: Former smoker - Family History Maternal Family History: Family History (Last Reviewed 03/06/20 @ 10:[address] Charlie Ovalle MD) Mother Diabetes Heart disease Hypertension Hyperlipidemia Father Diabetes Heart disease Hypertension Hyperlipidemia Family History: Reports: Diabetes, High Cholesterol, Heart Disease, Hypertension Paternal Family History: Family History (Last Reviewed 03/06/20 @ 10:[address] Charlie Ovalle MD) Mother Diabetes Heart disease Hypertension Hyperlipidemia Father Diabetes Heart disease Hypertension Hyperlipidemia Family History: Reports: Diabetes, High Cholesterol, Heart Disease, Hypertension Review of Systems General: Denies: Chills, Fever, Sweats Eyes: Denies: Visual changes - bilaterally, Diplopia ENT: Denies: Rhinorrhea, Sore throat Cardiovascular: Denies: Chest pain, Palpitations Respiratory: Denies: Dyspnea, Cough, Dyspnea on exertion Gastrointestinal: Denies: Abdominal pain, Nausea, Vomiting, Diarrhea, Melena, Hematochezia Genitourinary: Denies: Dysuria, Hematuria, Frequency Musculoskeletal: Denies: Back pain, Extremity Pain Skin: Denies: Rash, Wounds Neurological: Denies: Headache, Weakness, Numbness Physical Exam Vital Signs/Narrative: Vital Signs Temp Pulse Resp BP Pulse Ox 05/09/20 17:54 97.4 F L 58 L 16 110/44 L 95 Inital Vital Signs reviewed: Yes General: Well nourished, Well developed, No Acute Distress Head: Normocephalic, Atraumatic Eyes: Perrl, EOMI ENT: Moist mucous membranes, No rhinorrhea Neck: Supple, Nontender Cardiovascular: Regular rate, Regular rhythm, No murmurs Respiratory: No distress, CTA bilaterally, Chest nontender Abdomen: Soft, Nontender, Nondistended, Normal bowel sounds Back: Nontender, Normal Inspection Extremities: No edema, Tenderness - Tender over the right hip. Shortened and externally rotated. Neurovascular intact distally. Pelvis is stable. Skin: Normal color, No rash Neurological: Alert, Oriented x3, Cranial nerves II-XII grossly intact, Normal Strength, Normal Sensation Psychological: Normal affect, Normal Mood Diagnostic/Tx/Re-eval Clinical Impression(s) from Imaging Studies Hip/Pelvis X-Ray 05/09/20 18:01 IMPRESSION: Mildly displaced intratrochanteric fracture of the right femur. Electronically Signed: Jaspreet Borrego DO at 19:27 EDT Tel [phone], Service support , Chest X-Ray 05/09/20 18:42 IMPRESSION: No acute cardiopulmonary disease. There is been interval resolution of the small loculated left pleural effusion seen on the prior study. Electronically Signed: Jaspreet Borrego DO at 19:24 EDT Tel [phone], Service support , Abnormal Lab Results 05/09/20 05/09/20 05/09/20 17:58 17:58 17:58 WBC 10.4 RBC 3.94 L Hgb 11.1 L Hct 35.4 L MCV 89.8 MCH 28.2 MCHC 31.4 L RDW Std Deviation 46.2 H RDW Coeff of Joe 13.9 Plt Count 263 MPV 9.6 Immature Gran % (Auto) 0.600 Neut % (Auto) 78.5 H Lymph % (Auto) 15.4 L Greenlee % (Auto) 4.7 Eos % (Auto) 0.4 Baso % (Auto) 0.4 Absolute Neuts (auto) 8.2 H Absolute Lymphs (auto) 1.60 Nucleated RBC % 0 PT 13.2 INR 1.1 APTT 26.6 Sodium 147 H Potassium 4.1 Chloride 115 H Carbon Dioxide 27.0 Anion Gap 5 BUN 16 Creatinine 0.78 Estim Creat Clear Calc 67.00 Est GFR (MDRD) Af Amer 93 Est GFR (MDRD) Non-Af 77 BUN/Creatinine Ratio 20.4 H Glucose 107 H Calcium 9.0 Total Bilirubin 0.40 AST 17 ALT 21 Alkaline Phosphatase 85 Total Protein 5.8 L Albumin 2.8 L Globulin 3.0 Albumin/Globulin Ratio 0.9 Blood Type Antibody Screen 05/09/20 18:05 WBC RBC Hgb Hct MCV MCH MCHC RDW Std Deviation RDW Coeff of Joe Plt Count MPV Immature Gran % (Auto) Neut % (Auto) Lymph % (Auto) Greenlee % (Auto) Eos % (Auto) Baso % (Auto) Absolute Neuts (auto) Absolute Lymphs (auto) Nucleated RBC % PT INR APTT Sodium Potassium Chloride Carbon Dioxide Anion Gap BUN Creatinine Estim Creat Clear Calc Est GFR (MDRD) Af Amer Est GFR (MDRD) Non-Af BUN/Creatinine Ratio Glucose Calcium Total Bilirubin AST ALT Alkaline Phosphatase Total Protein Albumin Globulin Albumin/Globulin Ratio Blood Type O POSITIVE Antibody Screen NEGATIVE - Medical Decision Making The patient presents with right hip pain after a fall. She had already received fentanyl in route. EKG was obtained which showed low voltage but no acute ischemia. Metabolic work-up was pursued and was unremarkable. X-rays of the right hip do demonstrate intertrochanteric fracture. The patient was discussed with Dr. Charly Pacheco, on-call for Dr. Portillo. He agrees with plan for admission and medical clearance. The patient was discussed with the hospitalist and will be admitted at this time. Impression 1. Closed right mildly displaced intertrochanteric fracture ED Disposition - Plan for ED Patient: Disposition: [facility]
[2020-05-09 18:11] LABS: Absolute Neutrophil Count 8.2 X10^3/uL (2.0-7.7); Basophil# 0.04 X10^3/uL; Basophil% 0.4 % (0-1); Eosinophil# 0.04 X10^3/uL; Eosinophils% 0.4 % (0-5); Hematocrit 35.4 % (37-47); Hemoglobin 11.1 g/dL (12.0-15.0); Lymphocyte % 15.4 % (19-41); Mean Corp Hgb Conc 31.4 g/dL (32-36); Mean Corpuscular Hgb 28.2 pg (27.0-32.0); Mean Corpuscular Volume 89.8 fL (81-99); Mean Platelet Vol. 9.6 fl (6.2-12.0); Monocyte# 0.49 X10^3/uL; Monocyte% 4.7 % (0-10); NRBC Flagged by Analyzer 0 % (0-5); Neutrophil # 8.17 X10^3/uL (2.7-7.7); Neutrophil % 78.5 % (47-70); Platelet Count 263 K/mm3 (150-450); RBC Distribution Width CV 13.9 % (11.6-14.6); RBC Distribution Width SD 46.2 fl (35.1-43.9); Red Blood Count 3.94 M/mm3 (4.2-5.4); White Blood Count 10.4 K/mm3 (4.4-11.0)
[2020-05-09 18:20] LABS: International Normalized Ratio 1.1; Prothrombin Time (Protime)PT. 13.2 SECONDS (11.7-14.9)
[2020-05-09 18:21] LABS: Partial Thromboplast Time 26.6 Seconds (24.1-36.2)
[2020-05-09 18:29] LABS: ALB/GLOB Ratio 0.9 RATIO (0.9-2.4); AST(SGOT) 17 U/L (15-37); Alanine Aminotransfer ALT/SGPT 21 U/L (13-56); Albumin, Serum 2.8 g/dL (3.2-5.0); Alkaline Phosphatase 85 U/L (45-117); Anion Gap 5 (5-15); BUN 16 mg/dL (7-18); BUN/Creat Ratio 20.4 RATIO (10-20); Chloride 115 mmol/L (98-107); Creatinine, Serum 0.78 mg/dL (0.55-1.02); EST Glomerular Filtration Rate 77 mL/min (>60); Est Glom Filt Rate - Afr Amer 93 mL/min (>60); Glucose 107 mg/dL (74-106); Potassium 4.1 mmol/L (3.5-5.1); Protein, Total 5.8 g/dL (6.4-8.2); Sodium Level 147 mmol/L (136-145)
--- NOTE | 2020-05-09 18:42 | RAD_ITS ---
STUDY: X-RAY CHEST REASON FOR EXAM: Female, 70 years old. Fall. TECHNIQUE: Single AP portable view of the chest. COMPARISON: Chest, 10/15/2018. FINDINGS: The lungs are clear and expanded. There is no demonstrated pleural abnormality. Normal size heart. Normal mediastinum and eileen. Normal visualized pulmonary arteries. There is atherosclerotic calcification of the aortic arch with tortuosity. The thoracic spine is obscured by the mediastinum. Normal visualized ribs, clavicles, and shoulders. There is no demonstrated abnormality of the visualized soft tissue structures of the upper abdomen. RAD/Chest 1 View (Portable) IMPRESSION: No acute cardiopulmonary disease. There is been interval resolution of the small loculated left pleural effusion seen on the prior study. Electronically Signed: Jaspreet Borrego DO at 19:24 EDT Tel [phone], Service support ,
[2020-05-09] MEDS: fentaNYL 100 MCG/2 ML Ampul 50 MCG IV (19:20)
[2020-05-09 19:25] VITALS: BP 118/54; PULSE 67; RESP 17; TEMP 36.6; O2SAT 93
--- NOTE | 2020-05-09 19:30 | HP.PCM_ITS ---
Problem List (1) Closed right hip fracture Status: Acute (2) Depression Status: Chronic (3) COPD (chronic obstructive pulmonary disease) Status: Chronic (4) Chronic anemia Status: Chronic (5) Non-ischemic cardiomyopathy Status: Chronic (6) Chronic systolic (congestive) heart failure Status: Chronic (7) Secondary pulmonary arterial hypertension Status: Chronic History of Present Illness Date of Admission: 05/09/20 Chief Complaint: Fall, right hip pain. The patient is a 70 year old F with past medical history as mentioned above presented to the emergency room because of fall. She was using her cane and apparently tripped of her cane and fell on her right side. Immediately, she started having pain on the right groin region, sharp pain, 10 out of 10 in severity, aggravated by any type of movement, no relieving factors and no other associated symptoms. She denied any prodromal symptoms such as dizziness, lightheadedness, palpitation, syncope or presyncope. Currently, she is still having significant pain with any type of movement. Patient lives at home with her , she uses cane for ambulation. In the emergency department, her vital signs were stable. She was afebrile. Routine blood work was remarkable for hemoglobin of 11.1 g/dL which is chronic, otherwise unremarkable. LFT was normal. EKG revealed sinus bradycardia with low voltage QRS, no acute changes. Chest x-ray revealed mild cardiomegaly, minimal left subpleural effusion which is chronic, no acute infiltrate or consolidation. X-ray of the pelvis and left hip revealed mildly displaced intertrochanteric fracture of the right femur. She is being admitted for acute traumatic mildly displaced intertrochanteric fracture of the right femur. Past Medical History Past Medical History (Chronic Problems): Chronic Problems (Last Updated 05/09/20 @ 19:[address] Tim Cole MD) Depression (Chronic) COPD (chronic obstructive pulmonary disease) (Chronic) Chronic anemia (Chronic) Non-ischemic cardiomyopathy (Chronic) Chronic systolic (congestive) heart failure (Chronic) Secondary pulmonary arterial hypertension (Chronic) Medical History: Medical History (Last Updated 05/09/20 @ 19:[address] Tim Cole MD) Non-ischemic cardiomyopathy (Chronic) I42.8 Chronic systolic (congestive) heart failure (Chronic) I50.22 Secondary pulmonary arterial hypertension (Chronic) I27.21 Anemia D64.9 Bilateral pleural effusion J90 COPD (chronic obstructive pulmonary disease) J44.9 Depression F32.9 Frequent falls R29.6 GERD (gastroesophageal reflux disease) K21.9 Obesity E66.9 Obstructive sleep apnea G47.33 Osteoarthritis M19.90 Osteoporosis M81.0 Abnormal electrocardiogram (Inactive) R94.31 Congestive heart failure (CHF) (Inactive) I50.9 Dilated cardiomyopathy (Inactive) I42.0 Allergies diclofenac [From Voltaren] Allergy (Verified 03/06/20 10:42) Rash acetaminophen [From Vicodin] Adverse Reaction (Verified 03/06/20 10:42) Other hydrocodone [From Vicodin] Adverse Reaction (Verified 03/06/20 10:42) Other Home Medications: Ambulatory Orders Medication Instructions Recorded Bupropion HCl [Wellbutrin Sr] 150 mg PO DAILY 08/13/19 famotidine 20 mg tablet 20 mg PO BID tab 03/06/20 Calcium Carb/Vitamin D [Os-Chi 1 tab PO BIDCM 05/09/20 500MG + D] Carvedilol 25 mg PO BID 05/09/20 Ergocalciferol (Vitamin D2) 1,250 mcg PO MO 05/09/20 [Vitamin D2] Furosemide 40 mg PO DAILY 05/09/20 Lisinopril 2.5 mg PO DAILY 05/09/20 Lorazepam 0.5 mg PO DAILY PRN PRN 05/09/20 Paroxetine HCl [Paxil] 30 mg PO DAILY 05/09/20 Vitamin B Complex 1 tab PO DAILY 05/09/20 Surgical History: Surgical History (Last Reviewed 03/06/20 @ 10:[address] Charlie Ovalle MD) History of Z98.891 History of gastric bypass Z98.84 History of herniorrhaphy Z98.890, Z87.19 History of left heart catheterization Onset Date: 12/05/18 [id number] History of open reduction and internal fixation (ORIF) procedure Z98.890 Left femur History of open reduction and internal fixation (ORIF) procedure Z98.890 LUE History of tonsillectomy Z90.89 Hx of cholecystectomy Z90.49 Surgical History: - - Gastric bypass, tonsillectomy, , cholecystectomy, several incisional abdominal hernia repairs. 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 Charlie Ovalle MD) Mother Diabetes Heart disease Hypertension Hyperlipidemia Father Diabetes Heart disease Hypertension Hyperlipidemia History Items: Diabetes, High Cholesterol, Heart Disease, Hypertension Paternal Family History: Family History (Last Reviewed 03/06/20 @ 10:[address] Charlie Ovalle MD) Mother Diabetes Heart disease Hypertension Hyperlipidemia Father Diabetes Heart disease Hypertension Hyperlipidemia History Items: Diabetes, High Cholesterol, Heart Disease, Hypertension Review of Systems Constitutional: Denies: Anorexia, Chills, Fever, Weakness Eyes: Denies: Blurred vision, Double vision, Drainage, Redness HEENT: Denies: Difficulty Hearing, Ear Pain, Eye Pain, Nasal Congestion, Sore Throat Cardiovascular: Denies: Chest Pain, Chest Pressure, Edema, Heaviness, Light Headedness, Palpitations, Syncope Respiratory: Denies: Cough, Hemoptysis, Pleuritic Pain, Shortness of Breath, Sputum production, Wheezing Gastrointestinal: Denies: Abdominal Pain, Constipation, Diarrhea, Nausea, Vomiting Genitourinary: Denies: Dysuria, Frequency, Hematuria Musculoskeletal: Reports: Joint Pain, Leg Pain. Denies: Arm Pain, Back Pain, Foot Pain, Shoulder Pain Skin: Denies: Dryness, Rash Neurological: Denies: Balance problems, Double vision, Change in Speech, Slurred speech, Confusion, Headaches, Incoordination Psychiatric: Reports: Depression. Denies: Anxiety Endocrine: Denies: Change in Body Habitus, Polydipsia, Polyuria VTE Information - Inpt Only VTE Present on Admission: No VTE Mechan Device Prophylaxis: None VTE Pharm Prophylaxis ordered?: No Patient Problems: Active and Suspected Problems (Last Updated 05/09/20 @ 19:[address] Tim Cole MD) Closed right hip fracture (Acute) - Physical Exam Vitals/I&O's: Vital Signs Temp Pulse Resp BP Pulse Ox 97.8 F 67 17 118/54 L 93 05/09/20 19:25 05/09/20 19:25 05/09/20 19:25 05/09/20 19:25 05/09/20 19:25 Oxygen Delivery Method Room Air Weight: 184 lb Body Mass Index (BMI) 37.1 Intake and Output for Last 24 Hours 05/07/20 05/08/20 05/09/20 23:59 23:59 23:59 Intake Total 500 / 500 Balance 500 / 500 General: Alert, Oriented x3, Cooperative, - - She is in moderate to severe pain. HEENT: Atraumatic, PERRLA, EOMI, Normocephalic Oral: Moist Mucosa, No Gingival or Mucosal Lesions/ Ulcerations Neck: Supple, No JVD, Negative Carotid Bruits, Trachea Midline, Thyroid Normal Size and Texture Lungs: Clear to auscultation, Normal air movement, No rhonchi, No wheeze, No rales, Diminished Cardiovascular: Regular rate, Regular Rhythm, Normal S1, Normal S2, No murmurs, PMI Normal Abdomen: Bowel Sounds Present, Soft, Non Tender, Non-Distended, No Hepato- splenomegaly, Obese Extremities: No clubbing, No cyanosis, Edema - Trace edema. Skin: No rashes, No breakdown Lymphatic: No Cervical, Supraclavicular, or Inguinal Adenopathy Neurological: Cranial nerves II-XII grossly intact, Motor Exam 5/5 strength throughout Psych/Mental Status: Normal Affect, Appropriate, Alert and oriented to time, place, person, mood and affect Laboratory Results 05/09/20 17:58: WBC 10.4, RBC 3.94 L, Hgb 11.1 L, Hct 35.4 L, MCV 89.8, MCH 28.2, MCHC 31.4 L, RDW Std Deviation 46.2 H, RDW Coeff of Joe 13.9, Plt Count 263, MPV 9.6, Immature Gran % (Auto) 0.600, Neut % (Auto) 78.5 H, Lymph % (Auto) 15.4 L, [place] % (Auto) 4.7, Eos % (Auto) 0.4, Baso % (Auto) 0.4, Absolute Neuts (auto) 8.2 H, Absolute Lymphs (auto) 1.60, Nucleated RBC % 0 05/09/20 17:58: PT 13.2, INR 1.1, APTT 26.6 05/09/20 17:58: Sodium 147 H, Potassium 4.1, Chloride 115 H, Carbon Dioxide 27.0, Anion Gap 5, BUN 16, Creatinine 0.78, Estim Creat Clear Calc 67.00, Est GFR (MDRD) Af Amer 93, Est GFR (MDRD) Non-Af 77, BUN/Creatinine Ratio 20.4 H, Glucose 107 H, Calcium 9.0, Total Bilirubin 0.40, AST 17, ALT 21, Alkaline Phosphatase 85, Total Protein 5.8 L, Albumin 2.8 L, Globulin 3.0, Albumin/Globulin Ratio 0.9 05/09/20 18:05: Blood Type O POSITIVE, Antibody Screen NEGATIVE Clinical Impression(s) from Imaging Studies Hip/Pelvis X-Ray 05/09/20 18:01 IMPRESSION: Mildly displaced intratrochanteric fracture of the right femur. Electronically Signed: Jaspreet Borrego DO at 19:27 EDT Tel [phone], Service support , Chest X-Ray 05/09/20 18:42 IMPRESSION: No acute cardiopulmonary disease. There is been interval resolution of the small loculated left pleural effusion seen on the prior study. Electronically Signed: Jaspreet Borrego DO at 19:24 EDT Tel [phone], Service support , Assessment/Plan All Active Problems (Last Updated 05/09/20 @ 19:[address] Tim Cole MD) Closed right hip fracture (Acute) This is a 70 years old female patient presented to the emergency room because of fall and right hip pain, found to have mild displaced intertrochanteric fracture of the right femur and she is being admitted for surgical repair. #1 acute traumatic mild displaced intertrochanteric fracture of the right femur: X-ray of the pelvis and hip reviewed. Currently, vital signs are stable. Routine blood work reviewed, findings noted. Plan: Admit to MedSurg floor, complete bedrest, insert Arciniega catheter, IV morphine as needed for pain, OxyIR as needed for pain, gentle IV fluids for hydration, Zofran as needed, orthopedic surgery consult, PT OT evaluation and treatment when appropriate. #2 preoperative evaluation: 70 years old with past history medical history as mentioned above, lives at home with her , uses cane for ambulation. Chest x-ray revealed mild cardiomegaly, chronic small left pleural effusion, no change from previous chest x-rays. EKG revealed sinus bradycardia, low voltage QRS, no acute findings. She had history of nonischemic cardiomyopathy, was found to have ejection fraction of 30% on Nov, 2018. She had cardiac catheterization during that time that showed nonobstructive CAD and patient was treated medically. She had repeat echocardiogram on February, that showed ejection fraction of 55%. Currently, she is not in acute CHF. Pulse ox is maintained on room air. Based on her age, kidney function, past medical history and functional status, her estimated risk for perioperative [place] or cardiac arrest is 0.34%. Chest x-ray and EKG reviewed as above. Based on ACS NSQIP surgical risk calculator, her estimated risk for serious complications is around average, predicted length of stay is 5 days. At this time, patient is at least at moderate to low high risk for intraoperative or postoperative complications. No indication for further cardiac or noncardiac work-up. We can proceed with surgery. #3 chronic systolic CHF/nonischemic cardiomyopathy: Currently, compensated, no acute CHF. 2D echocardiogram from February, reviewed, ejection fraction 55%. Cardiac catheterization that was done on November, reviewed. Plan: Continue Coreg and lisinopril, hold Lasix for now, gentle IV fluids for hydration, monitor volume status. #4 COPD: Clinically stable, pulse ox maintained on room air. Plan for albuterol nebulizer as needed. #5 chronic anemia: Baseline hemoglobin has been fluctuating anywhere from 9 to 12 g/dL. Admission hemoglobin is 11.1 g/dL. No evidence of active bleeding. Plan to monitor. #6 GERD: Continue Pepcid. #7 depression: Continue Wellbutrin and Paxil. #8 DVT prophylaxis: SCDs, subcu Lovenox after surgery. This note was generated with [employer] dictation software. It may contain incorrect words, spelling, and punctuation that were not noted in checking the note before signing. Inpatient E&M: 15005 Init Hosp L3
[2020-05-09 20:11] VITALS: BMI 36.6
[2020-05-09 20:15] VITALS: BP 119/50; PULSE 65; RESP 18; TEMP 36.4; O2SAT 97
[2020-05-09 20:32] VITALS: BMI 36.7
[2020-05-09] MEDS: Famotidine 20 MG Tablet PO (21:02)
[2020-05-09] MEDS: Morphine 2 MG/ML Syringe IV (21:02)
[2020-05-09] MEDS: 0.45% Normal Saline 1,000 ML 75 ML IV (21:06)
[2020-05-09] MEDS: Zolpidem Tartrate 5 MG Tablet PO (21:53)
[2020-05-09] MEDS: oxyCODONE 5 MG Tablet PO (21:53)
[2020-05-09 21:58] VITALS: PULSE 71
[2020-05-09 23:23] VITALS: O2SAT 97
[2020-05-10] VITALS (18 sets, daily range): BP systolic 84–134; BP diastolic 38–65; PULSE 67–91; RESP 14–18; TEMP 36.5–37.4; O2SAT 92–100; BMI 36.6; BMI 36.7
[2020-05-10] MEDS: Morphine 2 MG/ML Syringe IV ×2 (00:52→08:21)
[2020-05-10] MEDS: oxyCODONE 5 MG Tablet PO (03:52)
[2020-05-10] MEDS: Ondansetron 4 MG/2 ML Vial IV (08:21)
[2020-05-10] MEDS: 0.9% Saline Lock 10 ML Syringe IV ×2 (08:21→08:37)
[2020-05-10] MEDS: LORazepam 2 MG/ML Syringe 0.5 MG IV (08:37)
[2020-05-10] MEDS: Carvedilol 25 MG Tablet PO ×2 (08:54→18:12)
[2020-05-10] MEDS: Cefazolin 2 GM in 0.9% Normal Saline 100 ML IV (09:55)
--- NOTE | 2020-05-10 11:08 | PCM.OPRPT ---
Report of Operation Date of Procedure: 05/10/20 Pre-Operative Diagnosis: Displaced IT Fx right hip Post-Operative Diagnosis: same Surgery/Procedure Performed:: ORIF right hip with Gamma nail terminal clerk: Carla Pierre Type of Anesthesia:: General Anesthesiologist: Reilly Kline Estimated Blood Loss (mL): 75 cc - Admit VTE Documentation VTE Present on Admission: No VTE Mechan Device Prophylaxis: SCD's VTE Pharm Prophylaxis ordered?: Yes
--- NOTE | 2020-05-10 11:23 | PCM.CONS.GEN ---
Reason for Consult Date of Consultation: 05/10/20 Reason for Consultation: Right hip pain History of Present Illness: The patient is a 70 year old F []tripped and fell over her cane at home and landed on her right side. She was taken to the ER and found to have a right intertrochanterid hip fracture/ She was admitted to the hospital by the hospitalist. At the time of my evaluation, she reports right hip pain. She denies pain elsewhere. She denies N/T/P. She has had previous fixation of a left hip fracture in 2016. PMHx, PSHX, Surgical Hx, Family Hx, ROS Medications and Allergies reviewed per the intake H&P. Past Medical History Past Medical History (Chronic Problems): Chronic Problems (Last Updated 05/09/20 @ 19:[address] Tim Cole MD) Depression (Chronic) COPD (chronic obstructive pulmonary disease) (Chronic) Chronic anemia (Chronic) Non-ischemic cardiomyopathy (Chronic) Chronic systolic (congestive) heart failure (Chronic) Secondary pulmonary arterial hypertension (Chronic) Medical History: Medical History (Last Updated 05/09/20 @ 19:[address] Tim Cole MD) Non-ischemic cardiomyopathy (Chronic) I42.8 Chronic systolic (congestive) heart failure (Chronic) I50.22 Secondary pulmonary arterial hypertension (Chronic) I27.21 Anemia D64.9 Bilateral pleural effusion J90 COPD (chronic obstructive pulmonary disease) J44.9 Depression F32.9 Frequent falls R29.6 GERD (gastroesophageal reflux disease) K21.9 Obesity E66.9 Obstructive sleep apnea G47.33 Osteoarthritis M19.90 Osteoporosis M81.0 Abnormal electrocardiogram (Inactive) R94.31 Congestive heart failure (CHF) (Inactive) I50.9 Dilated cardiomyopathy (Inactive) I42.0 Allergies diclofenac [From Voltaren] Allergy (Verified 03/06/20 10:42) Rash acetaminophen [From Vicodin] Adverse Reaction (Verified 03/06/20 10:42) Other hydrocodone [From Vicodin] Adverse Reaction (Verified 03/06/20 10:42) Other Home Medications: Ambulatory Orders Medication Instructions Recorded Bupropion HCl [Wellbutrin Sr] 150 mg PO DAILY 08/13/19 famotidine 20 mg tablet 20 mg PO BID tab 03/06/20 Calcium Carb/Vitamin D [Os-Chi 1 tab PO BIDCM 05/09/20 500MG + D] Carvedilol 25 mg PO BID 05/09/20 Ergocalciferol (Vitamin D2) 1,250 mcg PO MO 05/09/20 [Vitamin D2] Furosemide 40 mg PO DAILY 05/09/20 Lisinopril 2.5 mg PO DAILY 05/09/20 Lorazepam 0.5 mg PO DAILY PRN PRN 05/09/20 Paroxetine HCl [Paxil] 30 mg PO DAILY 05/09/20 Vitamin B Complex 1 tab PO DAILY 05/09/20 Surgical History: Surgical History (Last Reviewed 03/06/20 @ 10:[address] Charlie Ovalle MD) History of Z98.891 History of gastric bypass Z98.84 History of herniorrhaphy Z98.890, Z87.19 History of left heart catheterization Onset Date: 12/05/18 Z98.890 History of open reduction and internal fixation (ORIF) procedure Z98.890 Left femur History of open reduction and internal fixation (ORIF) procedure Z98.890 LUE History of tonsillectomy Z90.89 Hx of cholecystectomy Z90.49 Surgical History: - - Gastric bypass, tonsillectomy, , cholecystectomy, several incisional abdominal hernia repairs. 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 Charlie Ovalle MD) Mother Diabetes Heart disease Hypertension Hyperlipidemia Father Diabetes Heart disease Hypertension Hyperlipidemia History Items: Diabetes, High Cholesterol, Heart Disease, Hypertension Paternal Family History: Family History (Last Reviewed 03/06/20 @ 10:[address] Charlie Ovalle MD) Mother Diabetes Heart disease Hypertension Hyperlipidemia Father Diabetes Heart disease Hypertension Hyperlipidemia History Items: Diabetes, High Cholesterol, Heart Disease, Hypertension Patient Problems: Active and Suspected Problems (Last Updated 05/09/20 @ 19:[address] Tim Cole MD) Closed right hip fracture (Acute) - Physical Exam Vitals/I&O's: Vital Signs Temp Pulse Resp BP Pulse Ox 98.1 F 76 18 134/65 H 98 10/31/20 08:08 05/10/20 08:30 05/10/20 08:08 05/10/20 08:08 05/10/20 08:08 Oxygen Delivery Method Room Air Weight: 181 lb 10.574 oz Body Mass Index (BMI) 36.6 Intake and Output for Last 24 Hours 05/08/20 05/09/20 05/10/20 23:59 23:59 23:59 Intake Total 500 / 500 120 / 120 Output Total 550 / 550 Balance 500 / 200 -430 / -430 General: Alert, Cooperative HEENT: Atraumatic Extremities: No clubbing, No cyanosis, Capillary Refill Less than 3 Seconds, No Calf Tenderness, Tenderness - About right hip. RLE shortened and ER. ROM not tested due to known fracture. Skin: No rashes, No breakdown Neurological: Neuro grossly intact Comment: X-Rays and Lab reviewed Laboratory Results 05/09/20 17:58: WBC 10.4, RBC 3.94 L, Hgb 11.1 L, Hct 35.4 L, MCV 89.8, MCH 28.2, MCHC 31.4 L, RDW Std Deviation 46.2 H, RDW Coeff of Joe 13.9, Plt Count 263, MPV 9.6, Immature Gran % (Auto) 0.600, Neut % (Auto) 78.5 H, Lymph % (Auto) 15.4 L, [place] % (Auto) 4.7, Eos % (Auto) 0.4, Baso % (Auto) 0.4, Absolute Neuts (auto) 8.2 H, Absolute Lymphs (auto) 1.60, Nucleated RBC % 0 05/09/20 17:58: PT 13.2, INR 1.1, APTT 26.6 05/09/20 17:58: Sodium 147 H, Potassium 4.1, Chloride 115 H, Carbon Dioxide 27.0, Anion Gap 5, BUN 16, Creatinine 0.78, Estim Creat Clear Calc 67.00, Est GFR (MDRD) Af Amer 93, Est GFR (MDRD) Non-Af 77, BUN/Creatinine Ratio 20.4 H, Glucose 107 H, Calcium 9.0, Total Bilirubin 0.40, AST 17, ALT 21, Alkaline Phosphatase 85, Total Protein 5.8 L, Albumin 2.8 L, Globulin 3.0, Albumin/Globulin Ratio 0.9 05/09/20 18:05: Blood Type O POSITIVE, Antibody Screen NEGATIVE Current Medications Bupropion HCl (Bupropion (Sr) 150 Mg Tablet.Sa) 150 mg PO DAILY [facility] Calcium/Vitamin D (Calcium Carb/Vitamin D 1 Tablet Tablet) [facility] Last Admin: 05/10/20 10:29 Dose: Not Given Documented by: Carvedilol (Carvedilol 25 Mg Tablet) [facility] Last Admin: 05/10/20 08:54 Dose: 25 mg Documented by: Enoxaparin Sodium (Enoxaparin 40 Mg/0.4 Ml Syringe) 40 mg SC DAILY [facility] Famotidine (Famotidine 20 Mg Tablet) 20 mg PO BID [facility] Last Admin: 05/09/20 21:02 Dose: 20 mg Documented by: Sodium Chloride () 1,000 mls @ 75 mls/hr IV .[id number] [facility] Last Admin: 05/09/20 21:06 Dose: 75 mls/hr Documented by: Cefazolin Sodium () 1 gm in 50 mls @ 150 mls/hr IV Q8H [facility] Stop: 05/11/20 01:19 EST Lisinopril (Lisinopril 2.5 Mg Tablet) 2.5 mg PO DAILY [facility] Morphine Sulfate (Morphine 2 Mg/Ml Syringe) 2 mg IV Q3H PRN PRN PRN Reason: Pain Score 6-10 Last Admin: 05/10/20 08:21 Dose: 2 mg Documented by: Ondansetron HCl (Ondansetron 4 Mg/2 Ml Vial) 4 mg IV Q8H PRN PRN PRN Reason: NAUSEA/VOMITING Last Admin: 05/10/20 08:21 Dose: 4 mg Documented by: Paroxetine HCl (Paroxetine 20 Mg Tablet) 20 mg PO DAILY [facility] Senna/Docusate Sodium (Senna/Docusate Sodium 1 Tablet) 2 tablet PO BID PRN PRN PRN Reason: Constipation Sodium Chloride (0.9% Saline Lock 10 Ml Syringe) 10 - 40 ml IV UD PRN PRN Reason: SALINE FLUSH Last Admin: 05/10/20 08:37 Dose: 10 ml Documented by: Tramadol HCl (Tramadol 50 Mg Tablet) 100 mg PO Q6H PRN PRN PRN Reason: Pain Score 1-10 Zolpidem Tartrate (Zolpidem Tartrate 5 Mg Tablet) 5 mg PO QHS PRN PRN PRN Reason: INSOMNIA Last Admin: 05/09/20 21:53 Dose: 5 mg Documented by: Assessment/Plan All Active Problems (Last Updated 05/09/20 @ 19:[address] Tim Cloe MD) Closed right hip fracture (Acute) Displaced right intertorchanteric hip fracture We will plan on taking the patient to the OR for ORIF of her right hip fracture. Potential risks, benefits, complications and expected healing course were reviewed. Signed consent was obtained.
[2020-05-10 12:07] LABS: Hematocrit 32.7 % (37-47); Hemoglobin 10.2 g/dL (12.0-15.0); Mean Corp Hgb Conc 31.2 g/dL (32-36); Mean Corpuscular Hgb 28.6 pg (27.0-32.0); Mean Corpuscular Volume 91.6 fL (81-99); Mean Platelet Vol. 9.6 fl (6.2-12.0); Platelet Count 242 K/mm3 (150-450); RBC Distribution Width CV 14.1 % (11.6-14.6); RBC Distribution Width SD 48.1 fl (35.1-43.9); Red Blood Count 3.57 M/mm3 (4.2-5.4); White Blood Count 13.3 K/mm3 (4.4-11.0)
[2020-05-10 12:15] LABS: Anion Gap 3 (5-15); BUN 21 mg/dL (7-18); BUN/Creat Ratio 22.7 RATIO (10-20); Calcium,Total 8.2 mg/dL (8.5-10.1); Chloride 112 mmol/L (98-107); Creatinine, Serum 0.93 mg/dL (0.55-1.02); EST Glomerular Filtration Rate 63 mL/min (>60); Est Glom Filt Rate - Afr Amer 77 mL/min (>60); Estimated Creatinine Clearance 71.13 ml/min; Glucose 146 mg/dL (74-106); Potassium 4.5 mmol/L (3.5-5.1); Sodium Level 142 mmol/L (136-145)
--- NOTE | 2020-05-10 12:18 | CASEMGMT ---
MOISES attempted to see pt however she is off the floor at surgery at present. MOISES/RITA to follow up on Tuesday. KAILASH Moore
--- NOTE | 2020-05-10 13:46 | CASEMGMT ---
MOSIES tried to meet w/pt upon return from surgery, however she is asleep. SW called pt's sister Yajaira as she was the contact pt asked physician to call after surgery. MOISES reviewed how pt was doing prior to surgery and plan at discharge. PCP: Dr. Pineda Pharmacy: [facility] Insurance: Medicare/[employer] LW/POA: Pt's sister does not think pt has these LNOK: Pt's exhusband, sister, nephews Living arrangements/prior level of care: Pt was fully independent, drives, uses a cane for ambulation, lives with ex- DME: Pt has walker, raised toilet seat, has lift chair. As per sister Yajaira, pt's nephew(Yajaira' son) is an amputee and she states they have access to any needed DME HHC/SNF history: Pt has been to inpt rehab in the past(in 2016) Plan: As per pt's sister, pt plans to return home at discharge, is not sure if pt will want home health or not. MOISES explained that SW or CM will follow up Tuesday after pt's had PT/OT to confirm pt can indeed go home, and will ask about home health at that time. Pt's sister states understanding. SW/RITA to follow up on Tuesday. KAILASH Moore
--- NOTE | 2020-05-10 13:47 | PCM.PN.HOSP ---
Patient Problems: Active and Suspected Problems (Last Updated 05/09/20 @ 19:[address] Tim Cole MD) Closed right hip fracture (Acute) Subjective: Complaining some pain in her right leg. Plan for OR this morning Vitals/I&O's: Vital Signs Temp Pulse Resp BP Pulse Ox 98.5 F 71 16 118/56 L 100 05/10/20 13:07 05/10/20 13:07 05/10/20 13:07 05/10/20 13:07 05/10/20 13:07 Oxygen Flow Rate (L/min) 2 Oxygen Delivery Method Nasal Cannula Weight: 181 lb 10.574 oz Body Mass Index (BMI) 36.6 Intake and Output for Last 24 Hours 05/08/20 05/09/20 05/10/20 23:59 23:59 23:59 Intake Total 500 / 500 120 / 120 Output Total 640 / 640 Balance 500 / 200 -520 / -520 General: Alert, Oriented x3, Cooperative, No apparent distress HEENT: Atraumatic, PERRLA, EOMI, Normocephalic Oral: Moist Mucosa Neck: Supple, No JVD Lungs: Clear to auscultation, Normal air movement, No rhonchi, No wheeze, No rales, Diminished Cardiovascular: Regular rate, Regular Rhythm, Normal S1, Normal S2, No murmurs Abdomen: Soft, Non Tender, Non-Distended, No Hepato-splenomegaly Extremities: No edema, Capillary Refill Less than 3 Seconds Skin: No rashes, No breakdown Musculoskeletal: Tenderness - To right hip Neurological: Neuro grossly intact, Sensory exam intact to light touch and pain Psych/Mental Status: Normal Affect, Appropriate Laboratory Results 05/09/20 17:58: WBC 10.4, RBC 3.94 L, Hgb 11.1 L, Hct 35.4 L, MCV 89.8, MCH 28.2, MCHC 31.4 L, RDW Std Deviation 46.2 H, RDW Coeff of Joe 13.9, Plt Count 263, MPV 9.6, Immature Gran % (Auto) 0.600, Neut % (Auto) 78.5 H, Lymph % (Auto) 15.4 L, [place] % (Auto) 4.7, Eos % (Auto) 0.4, Baso % (Auto) 0.4, Absolute Neuts (auto) 8.2 H, Absolute Lymphs (auto) 1.60, Nucleated RBC % 0 05/09/20 17:58: PT 13.2, INR 1.1, APTT 26.6 05/09/20 17:58: Sodium 147 H, Potassium 4.1, Chloride 115 H, Carbon Dioxide 27.0, Anion Gap 5, BUN 16, Creatinine 0.78, Estim Creat Clear Calc 67.00, Est GFR (MDRD) Af Amer 93, Est GFR (MDRD) Non-Af 77, BUN/Creatinine Ratio 20.4 H, Glucose 107 H, Calcium 9.0, Total Bilirubin 0.40, AST 17, ALT 21, Alkaline Phosphatase 85, Total Protein 5.8 L, Albumin 2.8 L, Globulin 3.0, Albumin/Globulin Ratio 0.9 05/09/20 18:05: Blood Type O POSITIVE, Antibody Screen NEGATIVE 05/10/20 11:53: WBC 13.3 H, RBC 3.57 L, Hgb 10.2 L, Hct 32.7 L, MCV 91.6, MCH 28.6, MCHC 31.2 L, RDW Std Deviation 48.1 H, RDW Coeff of Joe 14.1, Plt Count 242, MPV 9.6 05/10/20 11:53: Sodium 142, Potassium 4.5, Chloride 112 H, Carbon Dioxide 27.0, Anion Gap 3 L, BUN 21 H, Creatinine 0.93, Estim Creat Clear Calc 71.13, Est GFR (MDRD) Af Amer 77, Est GFR (MDRD) Non-Af 63, BUN/Creatinine Ratio 22.7 H, Glucose 146 H, Calcium 8.2 L Current Medications Bupropion HCl (Bupropion (Sr) 150 Mg Tablet.Sa) 150 mg PO DAILY [facility] Calcium/Vitamin D (Calcium Carb/Vitamin D 1 Tablet Tablet) [facility] Last Admin: 05/10/20 10:29 Dose: Not Given Documented by: Carvedilol (Carvedilol 25 Mg Tablet) [facility] Last Admin: 05/10/20 08:54 Dose: 25 mg Documented by: Enoxaparin Sodium (Enoxaparin 40 Mg/0.4 Ml Syringe) 40 mg SC DAILY [facility] Last Admin: 05/10/20 09:00 Dose: Not Given Documented by: Famotidine (Famotidine 20 Mg Tablet) 20 mg PO BID [facility] Last Admin: 05/09/20 21:02 Dose: 20 mg Documented by: Sodium Chloride () 1,000 mls @ 75 mls/hr IV .[id number] [facility] Last Admin: 05/09/20 21:06 Dose: 75 mls/hr Documented by: Cefazolin Sodium () 1 gm in 50 mls @ 150 mls/hr IV Q8H [facility] Stop: 05/11/20 01:19 EST Lisinopril (Lisinopril 2.5 Mg Tablet) 2.5 mg PO DAILY [facility] Morphine Sulfate (Morphine 2 Mg/Ml Syringe) 2 mg IV Q3H PRN PRN PRN Reason: Pain Score 6-10 Last Admin: 05/10/20 08:21 Dose: 2 mg Documented by: Ondansetron HCl (Ondansetron 4 Mg/2 Ml Vial) 4 mg IV Q8H PRN PRN PRN Reason: NAUSEA/VOMITING Last Admin: 05/10/20 08:21 Dose: 4 mg Documented by: Paroxetine HCl (Paroxetine 20 Mg Tablet) 20 mg PO DAILY [facility] Senna/Docusate Sodium (Senna/Docusate Sodium 1 Tablet) 2 tablet PO BID PRN PRN PRN Reason: Constipation Sodium Chloride (0.9% Saline Lock 10 Ml Syringe) 10 - 40 ml IV UD PRN PRN Reason: SALINE FLUSH Last Admin: 05/10/20 08:37 Dose: 10 ml Documented by: Tramadol HCl (Tramadol 50 Mg Tablet) 100 mg PO Q6H PRN PRN PRN Reason: Pain Score 1-10 Zolpidem Tartrate (Zolpidem Tartrate 5 Mg Tablet) 5 mg PO QHS PRN PRN PRN Reason: INSOMNIA Last Admin: 05/09/20 21:53 Dose: 5 mg Documented by: STROKE Vital Signs/Narrative: Vital Signs Temp Pulse Resp BP Pulse Ox 05/10/20 13:07 98.5 F 71 16 118/56 L 100 05/10/20 12:31 99.4 F H 70 16 109/45 L 96 05/10/20 12:15 75 16 110/46 L 100 05/10/20 12:00 72 18 93/38 L 100 05/10/20 11:45 73 18 107/51 L 100 05/10/20 11:35 98.0 F 80 16 84/45 L 92 Medical Necessity - Tobacco Use Smoking Status: Former smoker Tobacco Use: Non-smoker Assessment/Plan All Active Problems (Last Updated 05/09/20 @ 19:[address] Tim Coel MD) Closed right hip fracture (Acute) 1. Acute traumatic mild displaced intertrochanteric fracture of the right femur -She went to the OR today for repair -We will manage her pain and plan for PT/OT for evaluation and possible placement 2. Chronic systolic CHF/nonischemic cardiomyopathy/HTN/HLD -Blood pressure is stable -Continue with lisinopril, will monitor fluid status and if necessary can restart Lasix -Continue with Coreg 3. Depression/anxiety -Stable -Continue with Wellbutrin and Ativan and Paxil 4. GERD -Stable -Continue with Pepcid DVT: Lovenox Inpatient E&M: 97875 Subs Hosp L2
[2020-05-10] MEDS: 0.45% Normal Saline 1,000 ML 75 ML IV (15:46)
[2020-05-10] MEDS: Paroxetine 20 MG Tablet PO (16:28)
[2020-05-10] MEDS: Famotidine 20 MG Tablet PO ×2 (16:28→21:44)
[2020-05-10] MEDS: Lisinopril 2.5 MG Tablet PO (16:28)
[2020-05-10] MEDS: buPROPion (SR) 150 MG Tablet.SA PO (16:28)
[2020-05-10] MEDS: Cefazolin 1 GM/50 ML BAG IV (16:31)
[2020-05-10] MEDS: Calcium Carb/Vitamin D 1 TABLET Tablet PO (18:12)
[2020-05-10] MEDS: traMADol 50 MG Tablet 100 MG PO (18:12)
[2020-05-11] VITALS (13 sets, daily range): BP systolic 89–105; BP diastolic 42–52; PULSE 70–81; RESP 16; TEMP 36.6–37.1; O2SAT 94–99; BMI 36.7
[2020-05-11] MEDS: traMADol 50 MG Tablet 100 MG PO ×3 (00:22→17:48)
[2020-05-11] MEDS: Cefazolin 1 GM/50 ML BAG IV (00:23)
[2020-05-11] MEDS: 0.45% Normal Saline 1,000 ML 75 ML IV ×2 (04:17→17:50)
[2020-05-11 06:08] LABS: Absolute Lymphocyte Count 1.73 X10^3/uL (0.83-4.51); Absolute Neutrophil Count 8.7 X10^3/uL (2.0-7.7); Basophil# 0.02 X10^3/uL; Basophil% 0.2 % (0-1); Hematocrit 29.6 % (37-47); Hemoglobin 9.1 g/dL (12.0-15.0); Lymphocyte # 1.73 X10^3/ul (4.0); Lymphocyte % 15.1 % (19-41); Mean Corp Hgb Conc 30.7 g/dL (32-36); Mean Corpuscular Volume 91.1 fL (81-99); Mean Platelet Vol. 9.7 fl (6.2-12.0); Monocyte# 0.91 X10^3/uL; NRBC Flagged by Analyzer 0 % (0-5); Neutrophil # 8.72 X10^3/uL (2.7-7.7); Neutrophil % 76.3 % (47-70); Platelet Count 232 K/mm3 (150-450); RBC Distribution Width CV 14.2 % (11.6-14.6); RBC Distribution Width SD 46.9 fl (35.1-43.9); Red Blood Count 3.25 M/mm3 (4.2-5.4); White Blood Count 11.4 K/mm3 (4.4-11.0)
[2020-05-11 06:33] LABS: Anion Gap 3 (5-15); BUN 30 mg/dL (7-18); BUN/Creat Ratio 23.1 RATIO (10-20); Calcium,Total 8.7 mg/dL (8.5-10.1); Chloride 107 mmol/L (98-107); EST Glomerular Filtration Rate 43 mL/min (>60); Est Glom Filt Rate - Afr Amer 52 mL/min (>60); Estimated Creatinine Clearance 50.88 ml/min; Glucose 109 mg/dL (74-106); Potassium 4.9 mmol/L (3.5-5.1); Sodium Level 138 mmol/L (136-145)
[2020-05-11] MEDS: Carvedilol 25 MG Tablet PO (09:00)
[2020-05-11] MEDS: Calcium Carb/Vitamin D 1 TABLET Tablet PO ×2 (09:00→17:48)
--- NOTE | 2020-05-11 09:27 | PCM.PN.ORT ---
Patient Problems: Active and Suspected Problems (Last Updated 05/09/20 @ 19:[address] Tim Cole MD) Closed right hip fracture (Acute) Subjective: Patient feeling well. Very little pain. - Physical Exam Vitals/I&O's: Vital Signs Temp Pulse Resp BP Pulse Ox 98.0 F 76 16 102/52 L 94 05/11/20 07:54 05/11/20 08:00 05/11/20 07:54 05/11/20 07:54 05/11/20 07:54 Oxygen Flow Rate (L/min) 2 Oxygen Delivery Method Room Air Weight: 181 lb 10.574 oz Body Mass Index (BMI) 36.6 Intake and Output for Last 24 Hours 05/09/20 05/10/20 05/11/20 23:59 23:59 22:59 Intake Total 500 / 500 1546.25 / 1546.25 1282.5 / 1282.5 Output Total 815 / 815 380 / 380 Balance 500 / 200 731.25 / 731.25 902.5 / 902.5 General: Alert, Oriented x3, Cooperative, No apparent distress Extremities: No clubbing, No cyanosis, Capillary Refill Less than 3 Seconds, No Calf Tenderness Skin: Incision - stable without drainage Neurological: Neuro grossly intact Laboratory Results 05/10/20 11:53: WBC 13.3 H, RBC 3.57 L, Hgb 10.2 L, Hct 32.7 L, MCV 91.6, MCH 28.6, MCHC 31.2 L, RDW Std Deviation 48.1 H, RDW Coeff of Joe 14.1, Plt Count 242, MPV 9.6 05/10/20 11:53: Sodium 142, Potassium 4.5, Chloride 112 H, Carbon Dioxide 27.0, Anion Gap 3 L, BUN 21 H, Creatinine 0.93, Estim Creat Clear Calc 71.13, Est GFR (MDRD) Af Amer 77, Est GFR (MDRD) Non-Af 63, BUN/Creatinine Ratio 22.7 H, Glucose 146 H, Calcium 8.2 L 05/11/20 05:55: WBC 11.4 H, RBC 3.25 L, Hgb 9.1 L, Hct 29.6 L, MCV 91.1, MCH 28.0, MCHC 30.7 L, RDW Std Deviation 46.9 H, RDW Coeff of Joe 14.2, Plt Count 232, MPV 9.7, Immature Gran % (Auto) 0.400, Neut % (Auto) 76.3 H, Lymph % (Auto) 15.1 L, [place] % (Auto) 8.0, Eos % (Auto) 0.0, Baso % (Auto) 0.2, Absolute Neuts (auto) 8.7 H, Absolute Lymphs (auto) 1.73, Nucleated RBC % 0 05/11/20 05:55: Sodium 138, Potassium 4.9, Chloride 107, Carbon Dioxide 28.0, Anion Gap 3 L, BUN 30 H, Creatinine 1.30 H, Estim Creat Clear Calc 50.88, Est GFR (MDRD) Af Amer 52 L, Est GFR (MDRD) Non-Af 43 L, BUN/Creatinine Ratio 23.1 H, Glucose 109 H, Calcium 8.7 Current Medications Bupropion HCl (Bupropion (Sr) 150 Mg Tablet.Sa) 150 mg PO DAILY [facility] Last Admin: 05/10/20 16:28 Dose: 150 mg Documented by: Calcium/Vitamin D (Calcium Carb/Vitamin D 1 Tablet Tablet) [facility] Last Admin: 05/11/20 09:00 Dose: 1 tablet Documented by: Carvedilol (Carvedilol 25 Mg Tablet) [facility] Last Admin: 05/11/20 09:00 Dose: 25 mg Documented by: Enoxaparin Sodium (Enoxaparin 40 Mg/0.4 Ml Syringe) 40 mg SC DAILY [facility] Last Admin: 05/10/20 09:00 Dose: Not Given Documented by: Famotidine (Famotidine 20 Mg Tablet) 20 mg PO BID [facility] Last Admin: 05/10/20 21:44 Dose: 20 mg Documented by: Sodium Chloride () 1,000 mls @ 75 mls/hr IV .[id number] [facility] Last Admin: 05/11/20 04:17 Dose: 75 mls/hr Documented by: Lisinopril (Lisinopril 2.5 Mg Tablet) 2.5 mg PO DAILY [facility] Last Admin: 05/10/20 16:28 Dose: 2.5 mg Documented by: Morphine Sulfate (Morphine 2 Mg/Ml Syringe) 2 mg IV Q3H PRN PRN PRN Reason: Pain Score 6-10 Last Admin: 05/10/20 08:21 Dose: 2 mg Documented by: Ondansetron HCl (Ondansetron 4 Mg/2 Ml Vial) 4 mg IV Q8H PRN PRN PRN Reason: NAUSEA/VOMITING Last Admin: 05/10/20 08:21 Dose: 4 mg Documented by: Paroxetine HCl (Paroxetine 20 Mg Tablet) 20 mg PO DAILY [facility] Last Admin: 05/10/20 16:28 Dose: 20 mg Documented by: Senna/Docusate Sodium (Senna/Docusate Sodium 1 Tablet) 2 tablet PO BID PRN PRN PRN Reason: Constipation Sodium Chloride (0.9% Saline Lock 10 Ml Syringe) 10 - 40 ml IV UD PRN PRN Reason: SALINE FLUSH Last Admin: 05/10/20 08:37 Dose: 10 ml Documented by: Tramadol HCl (Tramadol 50 Mg Tablet) 100 mg PO Q6H PRN PRN PRN Reason: Pain Score 1-10 Last Admin: 05/11/20 09:00 Dose: 100 mg Documented by: Zolpidem Tartrate (Zolpidem Tartrate 5 Mg Tablet) 5 mg PO QHS PRN PRN PRN Reason: INSOMNIA Last Admin: 05/09/20 21:53 Dose: 5 mg Documented by: Medical Necessity - Tobacco Use Smoking Status: Former smoker Tobacco Use: Non-smoker Assessment/Plan All Active Problems (Last Updated 05/09/20 @ 19:[address] Tim Cole MD) Closed right hip fracture (Acute) 1. s/p ORIF right hip fracture PT today then patient wishes to go to TCU 2. Hypotension Not secondary to surgery. Will hold Lasix for now.
[2020-05-11] MEDS: Famotidine 20 MG Tablet PO ×2 (10:19→21:57)
[2020-05-11] MEDS: Enoxaparin 40 MG/0.4 ML Syringe SC (10:19)
[2020-05-11] MEDS: Paroxetine 20 MG Tablet PO (10:19)
[2020-05-11] MEDS: buPROPion (SR) 150 MG Tablet.SA PO (10:19)
[2020-05-11] MEDS: Lisinopril 2.5 MG Tablet PO (10:20)
--- NOTE | 2020-05-11 10:58 | PCM.PN.HOSP ---
Patient Problems: Active and Suspected Problems (Last Updated 05/09/20 @ 19:[address] Tim Cole MD) Closed right hip fracture (Acute) Subjective: Doing well, pain is improved on the right. She does have sensation in her toes. Awaiting PT/OT evaluation. Vitals/I&O's: Vital Signs Temp Pulse Resp BP Pulse Ox 98.0 F 76 16 102/52 L 94 05/11/20 07:54 05/11/20 08:00 05/11/20 07:54 05/11/20 07:54 05/11/20 07:54 Oxygen Flow Rate (L/min) 2 Oxygen Delivery Method Room Air Weight: 181 lb 10.574 oz Body Mass Index (BMI) 36.6 Intake and Output for Last 24 Hours 05/09/20 05/10/20 05/11/20 23:59 23:59 22:59 Intake Total 500 / 500 1546.25 / 1546.25 1282.5 / 1282.5 Output Total 815 / 815 380 / 380 Balance 500 / 200 731.25 / 731.25 902.5 / 902.5 General: Alert, Oriented x3, Cooperative, No apparent distress HEENT: Atraumatic, PERRLA, EOMI, Normocephalic Oral: Moist Mucosa Neck: Supple, No JVD Lungs: Clear to auscultation, Normal air movement, No rhonchi, No wheeze, No rales, Diminished Cardiovascular: Regular rate, Regular Rhythm, Normal S1, Normal S2, No murmurs Abdomen: Soft, Non Tender, Non-Distended, No Hepato-splenomegaly Extremities: No edema, Capillary Refill Less than 3 Seconds Skin: No rashes, No breakdown Musculoskeletal: Tenderness - To right hip dressing intact/toes mobile with sensation intact Neurological: Neuro grossly intact, Sensory exam intact to light touch and pain Psych/Mental Status: Normal Affect, Appropriate Laboratory Results 05/10/20 11:53: WBC 13.3 H, RBC 3.57 L, Hgb 10.2 L, Hct 32.7 L, MCV 91.6, MCH 28.6, MCHC 31.2 L, RDW Std Deviation 48.1 H, RDW Coeff of Joe 14.1, Plt Count 242, MPV 9.6 05/10/20 11:53: Sodium 142, Potassium 4.5, Chloride 112 H, Carbon Dioxide 27.0, Anion Gap 3 L, BUN 21 H, Creatinine 0.93, Estim Creat Clear Calc 71.13, Est GFR (MDRD) Af Amer 77, Est GFR (MDRD) Non-Af 63, BUN/Creatinine Ratio 22.7 H, Glucose 146 H, Calcium 8.2 L 05/11/20 05:55: WBC 11.4 H, RBC 3.25 L, Hgb 9.1 L, Hct 29.6 L, MCV 91.1, MCH 28.0, MCHC 30.7 L, RDW Std Deviation 46.9 H, RDW Coeff of Joe 14.2, Plt Count 232, MPV 9.7, Immature Gran % (Auto) 0.400, Neut % (Auto) 76.3 H, Lymph % (Auto) 15.1 L, [place] % (Auto) 8.0, Eos % (Auto) 0.0, Baso % (Auto) 0.2, Absolute Neuts (auto) 8.7 H, Absolute Lymphs (auto) 1.73, Nucleated RBC % 0 05/11/20 05:55: Sodium 138, Potassium 4.9, Chloride 107, Carbon Dioxide 28.0, Anion Gap 3 L, BUN 30 H, Creatinine 1.30 H, Estim Creat Clear Calc 50.88, Est GFR (MDRD) Af Amer 52 L, Est GFR (MDRD) Non-Af 43 L, BUN/Creatinine Ratio 23.1 H, Glucose 109 H, Calcium 8.7 Current Medications Bupropion HCl (Bupropion (Sr) 150 Mg Tablet.) 150 mg PO DAILY [facility] Last Admin: 05/11/20 10:19 Dose: 150 mg Documented by: Calcium/Vitamin D (Calcium Carb/Vitamin D 1 Tablet [facility]) [facility] Last Admin: 05/11/20 09:00 Dose: 1 tablet Documented by: Carvedilol (Carvedilol 25 Mg Tablet) [facility] Last Admin: 05/11/20 09:00 Dose: 25 mg Documented by: Enoxaparin Sodium (Enoxaparin 40 Mg/0.4 Ml Syringe) 40 mg SC DAILY [facility] Last Admin: 05/11/20 10:19 Dose: 40 mg Documented by: Famotidine (Famotidine 20 Mg Tablet) 20 mg PO BID [facility] Last Admin: 05/11/20 10:19 Dose: 20 mg Documented by: Sodium Chloride () 1,000 mls @ 75 mls/hr IV .[id number] [facility] Last Admin: 05/11/20 04:17 Dose: 75 mls/hr Documented by: Lisinopril (Lisinopril 2.5 Mg Tablet) 2.5 mg PO DAILY [facility] Last Admin: 05/11/20 10:20 Dose: 2.5 mg Documented by: Morphine Sulfate (Morphine 2 Mg/Ml Syringe) 2 mg IV Q3H PRN PRN PRN Reason: Pain Score 6-10 Last Admin: 05/10/20 08:21 Dose: 2 mg Documented by: Ondansetron HCl (Ondansetron 4 Mg/2 Ml Vial) 4 mg IV Q8H PRN PRN PRN Reason: NAUSEA/VOMITING Last Admin: 05/10/20 08:21 Dose: 4 mg Documented by: Paroxetine HCl (Paroxetine 20 Mg Tablet) 20 mg PO DAILY [facility] Last Admin: 05/11/20 10:19 Dose: 20 mg Documented by: Senna/Docusate Sodium (Senna/Docusate Sodium 1 Tablet) 2 tablet PO BID PRN PRN PRN Reason: Constipation Sodium Chloride (0.9% Saline Lock 10 Ml Syringe) 10 - 40 ml IV UD PRN PRN Reason: SALINE FLUSH Last Admin: 05/10/20 08:37 Dose: 10 ml Documented by: Tramadol HCl (Tramadol 50 Mg Tablet) 100 mg PO Q6H PRN PRN PRN Reason: Pain Score 1-10 Last Admin: 05/11/20 09:00 Dose: 100 mg Documented by: Zolpidem Tartrate (Zolpidem Tartrate 5 Mg Tablet) 5 mg PO QHS PRN PRN PRN Reason: INSOMNIA Last Admin: 05/09/20 21:53 Dose: 5 mg Documented by: STROKE Vital Signs/Narrative: Vital Signs Temp Pulse Resp BP Pulse Ox 05/11/20 08:00 76 05/11/20 07:54 98.0 F 70 16 102/52 L 94 05/11/20 07:00 97 Medical Necessity - Tobacco Use Smoking Status: Former smoker Tobacco Use: Non-smoker Assessment/Plan All Active Problems (Last Updated 05/09/20 @ 19:[address] Tim Cole MD) Closed right hip fracture (Acute) 1. Acute traumatic mild displaced intertrochanteric fracture of the right femur -She went to the OR 05/10/2020 for repair -We will manage her pain and plan for PT/OT for evaluation and possible placement to TCU 2. Chronic systolic CHF/nonischemic cardiomyopathy/HTN/HLD -Blood pressure is stable -Continue with lisinopril, will monitor fluid status and if necessary can restart Lasix -Continue with Coreg 3. Depression/anxiety -Stable -Continue with Wellbutrin and Ativan and Paxil 4. GERD -Stable -Continue with Pepcid DVT: Lovenox Inpatient E&M: 47389 Subs Hosp L2
[2020-05-11] MEDS: Morphine 2 MG/ML Syringe IV (21:57)
[2020-05-12] VITALS: PULSE 79
[2020-05-12 02:26] VITALS: BP 119/41; PULSE 80; RESP 16; TEMP 36.4; O2SAT 94
[2020-05-12] MEDS: traMADol 50 MG Tablet 100 MG PO ×2 (02:33→09:36)
[2020-05-12 04:00] VITALS: PULSE 76
[2020-05-12 05:52] LABS: Absolute Lymphocyte Count 1.89 X10^3/uL (0.83-4.51); Absolute Neutrophil Count 6.9 X10^3/uL (2.0-7.7); Basophil# 0.04 X10^3/uL; Basophil% 0.4 % (0-1); Eosinophil# 0.04 X10^3/uL; Eosinophils% 0.4 % (0-5); Hematocrit 27.1 % (37-47); Hemoglobin 8.5 g/dL (12.0-15.0); Lymphocyte # 1.89 X10^3/ul (4.0); Lymphocyte % 18.6 % (19-41); Mean Corp Hgb Conc 31.4 g/dL (32-36); Mean Corpuscular Hgb 28.4 pg (27.0-32.0); Mean Corpuscular Volume 90.6 fL (81-99); Mean Platelet Vol. 9.5 fl (6.2-12.0); Monocyte# 1.26 X10^3/uL; Monocyte% 12.4 % (0-10); NRBC Flagged by Analyzer 0 % (0-5); Neutrophil # 6.86 X10^3/uL (2.7-7.7); Neutrophil % 67.6 % (47-70); Platelet Count 224 K/mm3 (150-450); RBC Distribution Width CV 14.2 % (11.6-14.6); RBC Distribution Width SD 46.2 fl (35.1-43.9); Red Blood Count 2.99 M/mm3 (4.2-5.4); White Blood Count 10.2 K/mm3 (4.4-11.0)
[2020-05-12] MEDS: Morphine 2 MG/ML Syringe IV (06:00)
[2020-05-12 06:12] LABS: Anion Gap 4 (5-15); BUN 34 mg/dL (7-18); BUN/Creat Ratio 32.4 RATIO (10-20); Calcium,Total 8.7 mg/dL (8.5-10.1); Chloride 108 mmol/L (98-107); Creatinine, Serum 1.05 mg/dL (0.55-1.02); EST Glomerular Filtration Rate 55 mL/min (>60); Est Glom Filt Rate - Afr Amer 66 mL/min (>60); Glucose 103 mg/dL (74-106); Potassium 4.3 mmol/L (3.5-5.1); Sodium Level 139 mmol/L (136-145)
[2020-05-12 08:00] VITALS: PULSE 88
[2020-05-12 08:06] VITALS: BP 139/56; PULSE 87; RESP 16; TEMP 36.4; O2SAT 97
[2020-05-12] MEDS: Carvedilol 25 MG Tablet PO (08:12)
[2020-05-12] MEDS: 0.45% Normal Saline 1,000 ML 75 ML IV (08:12)
[2020-05-12] MEDS: Calcium Carb/Vitamin D 1 TABLET Tablet PO (08:12)
[2020-05-12] MEDS: Paroxetine 20 MG Tablet PO (09:35)
[2020-05-12] MEDS: buPROPion (SR) 150 MG Tablet.SA PO (09:35)
[2020-05-12] MEDS: Famotidine 20 MG Tablet PO (09:35)
[2020-05-12] MEDS: Enoxaparin 40 MG/0.4 ML Syringe SC (09:40)
--- NOTE | 2020-05-12 11:06 | CASEMGMT ---
Addendum entered by Krys Boyd 05/12/20 15:31: SW updated pt that TCU is able to accept. Pt states understanding. Addendum entered by Krys Boyd 05/12/20 13:00: SW placed a call to [facility] in TCU, TCU is able to accept pt today. Plan: TCU today [facility] Original Note: Social Work Note SW in to speak with pt to confirm discharge plans. Pt is alert and orientated x3. SW provided pt with list of SNF that accept pt's insurance. Pt agreeable to either [facility] or [facility]. SW explained that this worker will have to check on bed availability. Pt states understanding. MOISES placed a call to referral line and spoke with [facility]era. Sera states [facility] is not able to accept pt but TCU is able to accept pt today pending reviewing the referral. Sera states she will review referral. Plan: TCU pending acceptance [facility]
--- NOTE | 2020-05-12 13:16 | PCM.PN.ORT ---
Patient Problems: Active and Suspected Problems (Last Updated 05/09/20 @ 19:[address] Tim Cole MD) Closed right hip fracture (Acute) Subjective: Patient reports that right hip feels ok but reports pain and swelling of the right knee starting last night. - Physical Exam Vitals/I&O's: Vital Signs Temp Pulse Resp BP Pulse Ox 97.5 F L 87 16 139/56 H 97 05/12/20 08:06 05/12/20 08:06 05/12/20 08:06 05/12/20 08:06 05/12/20 08:06 Oxygen Flow Rate (L/min) 2 Oxygen Delivery Method Room Air Weight: 181 lb 10.574 oz Body Mass Index (BMI) 36.6 Intake and Output for Last 24 Hours 05/11/20 05/11/20 05/12/20 00:59 23:59 23:59 Intake Total 1900 / 1900 Output Total 1550 / 1550 Balance 350 / 350 General: Alert, Oriented x3, Cooperative Extremities: Edema - bilaterl lowere extrimitied Skin: Incision - stable without drainage Musculoskeletal: Tenderness - with 1+ effusion of the right knee and diffuse tenderness. ROM resisted. Neurological: Neuro grossly intact Laboratory Results 05/12/20 05:40: WBC 10.2, RBC 2.99 L, Hgb 8.5 L, Hct 27.1 L, MCV 90.6, MCH 28.4, MCHC 31.4 L, RDW Std Deviation 46.2 H, RDW Coeff of Joe 14.2, Plt Count 224, MPV 9.5, Immature Gran % (Auto) 0.600, Neut % (Auto) 67.6, Lymph % (Auto) 18.6 L, [place] % (Auto) 12.4 H, Eos % (Auto) 0.4, Baso % (Auto) 0.4, Absolute Neuts (auto) 6.9, Absolute Lymphs (auto) 1.89, Nucleated RBC % 0 05/12/20 05:40: Sodium 139, Potassium 4.3, Chloride 108 H, Carbon Dioxide 27.0, Anion Gap 4 L, BUN 34 H, Creatinine 1.05 H, Estim Creat Clear Calc 63.00, Est GFR (MDRD) Af Amer 66, Est GFR (MDRD) Non-Af 55 L, BUN/Creatinine Ratio 32.4 H, Glucose 103, Calcium 8.7 05/12/20 10:35: COVID-19 ([place]) Pending Current Medications Bupropion HCl (Bupropion (Sr) 150 Mg Tablet.Sa) 150 mg PO DAILY [facility] Last Admin: 05/12/20 09:35 Dose: 150 mg Documented by: Calcium/Vitamin D (Calcium Carb/Vitamin D 1 Tablet Tablet) [facility] Last Admin: 05/12/20 08:12 Dose: 1 tablet Documented by: Carvedilol (Carvedilol 25 Mg Tablet) 25 mg PO BIDCM [facility] Last Admin: 05/12/20 08:12 Dose: 25 mg Documented by: Enoxaparin Sodium (Enoxaparin 40 Mg/0.4 Ml Syringe) 40 mg SC DAILY [facility] Last Admin: 05/12/20 09:40 Dose: 40 mg Documented by: Famotidine (Famotidine 20 Mg Tablet) 20 mg PO BID [facility] Last Admin: 05/12/20 09:35 Dose: 20 mg Documented by: Sodium Chloride () 1,000 mls @ 75 mls/hr IV .[id number] [facility] Last Admin: 05/12/20 08:12 Dose: 75 mls/hr Documented by: Lisinopril (Lisinopril 2.5 Mg Tablet) 2.5 mg PO DAILY [facility] Last Admin: 05/12/20 09:35 Dose: Not Given Documented by: Ondansetron HCl (Ondansetron 4 Mg/2 Ml Vial) 4 mg IV Q8H PRN PRN PRN Reason: NAUSEA/VOMITING Last Admin: 05/10/20 08:21 Dose: 4 mg Documented by: Oxycodone HCl (Oxycodone 5 Mg Tablet) 5 - 10 mg PO Q6H PRN PRN PRN Reason: Pain Score 6-10 Paroxetine HCl (Paroxetine 20 Mg Tablet) 20 mg PO DAILY [facility] Last Admin: 05/12/20 09:35 Dose: 20 mg Documented by: Senna/Docusate Sodium (Senna/Docusate Sodium 1 Tablet) 2 tablet PO BID PRN PRN PRN Reason: Constipation Sodium Chloride (0.9% Saline Lock 10 Ml Syringe) 10 - 40 ml IV UD PRN PRN Reason: SALINE FLUSH Last Admin: 05/10/20 08:37 Dose: 10 ml Documented by: Zolpidem Tartrate (Zolpidem Tartrate 5 Mg Tablet) 5 mg PO QHS PRN PRN PRN Reason: INSOMNIA Last Admin: 05/09/20 21:53 Dose: 5 mg Documented by: Medical Necessity - Tobacco Use Smoking Status: Former smoker Tobacco Use: Non-smoker Assessment/Plan All Active Problems (Last Updated 05/09/20 @ 19:[address] Tim Cole MD) Closed right hip fracture (Acute) s/p ORIF right hip fracture -- continue PT with WBAT Right knee pain with swelling -- will xray right knee to r/o fracture
[2020-05-12] MEDS: oxyCODONE 5 MG Tablet PO (13:46)
--- NOTE | 2020-05-12 13:55 | RAD_ITS ---
STUDY: X-RAY - RIGHT KNEE REASON FOR EXAM: Female, 70 years old. PAIN IN KNEE S/P FALL YESTERDAY, HIP SURGERY X3 DAYS AGO TECHNIQUE: 3 view(s) of the knee. COMPARISON: None. FINDINGS: There is demineralization of the visualized distal femur. Healed proximal fibular fracture. There is demineralization of the tibia and fibula. Findings suggestive of a minimally depressed lateral tibial plateau fracture. Normal proximal tibiofibular articulation. There is moderate degenerative arthrosis of the medial femorotibial compartment with moderate joint space narrowing. Normal lateral femorotibial compartment. There is moderate degenerative arthrosis of the patellofemoral articulation. Small joint effusion. RAD/Knee 3 Views IMPRESSION: Degenerative arthrosis. I suspect a minimally displaced fracture involving the medial tibial plateau. Electronically Signed: Greyson Pyle, at 14:37 EST , Service support ,
[2020-05-12 14:35] VITALS: BP 95/65; PULSE 84; RESP 16; TEMP 37; O2SAT 96
--- NOTE | 2020-05-12 15:50 | PCM.TXEXTCAR ---
- Diet 05/11/20 07:01 Diet: Regular - General Is pt able to select menu?: Yes - Routine Orders/Code Status Routine Lab Work: CBC - IN 4 DAYS - Wound(s) R. arm Wound Type: Skin Tear RIGHT HIP & THIGH Wound Type: Surgical Incision RT UPPER ARM Wound Type: Skin Tear - Therapies Weight Bearing: Non weight bearing - right leg Extremity Affected:: Right Lower Physical Therapy: Eval and Treat Occupational Therapy: Eval and Treat - Problem/Diagnosis (1) Right medial tibial plateau fracture Status: Acute (2) Closed right hip fracture Status: Acute (3) Chronic anemia Status: Chronic Comment: ACUTE ON CHRONIC ANEMIA DUE TO BLOOD LOSS FROM RIGHT HIP FRACTURE (4) Non-ischemic cardiomyopathy Status: Chronic (5) Secondary pulmonary arterial hypertension Status: Chronic (6) Chronic depression Status: Chronic - Allergies/Procedures Done in Hospital Allergies/Adverse Reactions: Allergies diclofenac [From Voltaren] Allergy (Verified 03/06/20 10:42) Rash acetaminophen [From Vicodin] Adverse Reaction (Verified 03/06/20 10:42) Other hydrocodone [From Vicodin] Adverse Reaction (Verified 03/06/20 10:42) Other Procedures: - - gamma nail to right hip 05/10/20 - Type of Care/Length of Stay Estimated LOS: Convalescent Care Less Than 30 days Type of Care Needed: Skilled Rehab Potential: Good Prognosis: Good - Additional Orders/Day of Discharge Additional Orders: REMOVE DONNELL FROM RIGHT HIP INCISION IN [address] ZENG IN 2 WEEKS H&P will serve as current which was dated: 05/09/20 Day of Discharge: 05/12/20 - Follow Up Care Primary Care Physician: Kei Pineda DO [Primary Care Provider] -
--- NOTE | 2020-05-12 16:35 | NURSING ---
report called to TCU for patient discharge.
--- NOTE | 2020-05-14 10:54 | PCM.DC.SUM ---
Discharge Date and Diagnosis - Problem List Patient Problems: Active and Suspected Problems (Last Updated 05/09/20 @ 19:[address] Tim Cole MD) Right medial tibial plateau fracture (Acute) Closed right hip fracture (Acute) Date of Admission: 05/09/20 Date of Discharge: 05/12/20 - Primary Discharge Diagnosis Acute Problems: Active Problems (Last Updated 05/09/20 @ 19:[address] Tim Cole MD) Closed right hip fracture (Acute)-intertrochanteric-secondary to osteoporosis Right medial tibial plateau fracture (Acute)-present on admission Chronic depression/anxiety GERD Chronic systolic CHF Nonischemic cardiomyopathy Essential hypertension Hyperlipidemia - Secondary Discharge Diagnosis Chronic Problems: Chronic Problems (Last Updated 05/09/20 @ 19:[address] Tim Cole MD) Chronic depression (Chronic) Chronic diastolic (congestive) heart failure (Chronic) Hypertension (Chronic) GERD (gastroesophageal reflux disease) (Chronic) Anxiety (Chronic) Depression (Chronic) COPD (chronic obstructive pulmonary disease) (Chronic) Chronic anemia (Chronic) ACUTE ON CHRONIC ANEMIA DUE TO BLOOD LOSS FROM RIGHT HIP FRACTURE Non-ischemic cardiomyopathy (Chronic) Chronic systolic (congestive) heart failure (Chronic) Secondary pulmonary arterial hypertension (Chronic) Hospital Course and Treatment Operations: - - Gamma nail insertion right hip Summary of Care Provided: The patient is a 70 year old F was seen in the emergency room at [facility] after sustaining a fall at home and landing on her right hip. Work-up in the emergency room included x-rays of her right hip which showed an intertrochanteric fracture of the right hip, patient was admitted to [place] [id number] and seen in consultation by orthopedic surgery who inserted a gamma nail for repair of the hip fracture. Patient was seen by PT and OT, it was felt she would benefit from inpatient rehab services and she agreed to go to TCU for rehab services. Prior to being discharged from the hospital however, patient had a right knee x-ray performed which showed a tibial plateau fracture which has been undiagnosed at the time of admission. On 05/12/2020, patient was seen and examined: On examination she appeared in good health and spirits, she does not appear to be in any distress. Vital signs as documented. Skin warm and dry and without overt rashes. Neck without JVD, thyroid appears normal, trachea is midline, neck is supple. Lungs clear, normal air movement was noted. Heart exam notable for regular rhythm, normal sounds and absence of murmurs, rubs or gallops. Abdomen unremarkable and without evidence of organomegaly, masses, or abdominal aortic enlargement, bowel sounds are present in all 4 quadrants, no abdominal tenderness was noted. Extremities nonedematous, no cyanosis was noted, no clubbing was noted. Neuro: Cranial nerves II through XII are grossly intact, no focal motor deficits were noted, sensation to light touch and pinprick is intact, motor exam 5/5 throughout. Psych: Patient is alert and oriented x3, she does not appear anxious or depressed, she does not appear agitated. Patient was discharged on 05/12/2020 to TCU for inpatient rehab services. Patient Problems: Active and Suspected Problems (Last Updated 05/09/20 @ 19:[address] Tim Cole MD) Right medial tibial plateau fracture (Acute) Closed right hip fracture (Acute) - Physical Exam Vitals/I&O's: Vital Signs Temp Pulse Resp BP Pulse Ox 98.6 F 84 16 95/65 96 05/12/20 14:35 05/12/20 14:35 05/12/20 14:35 05/12/20 14:35 05/12/20 14:35 Oxygen Flow Rate (L/min) 2 Oxygen Delivery Method Room Air Weight: 82.4 kg Body Mass Index (BMI) 36.6 Intake and Output for Last 24 Hours 05/12/20 05/13/20 05/14/20 23:59 23:59 23:59 Intake Total 2522.5 / 2522.5 Output Total 1550 / 1550 Balance 972.5 / 972.5 Home Medications: Medications to take at Discharge Bupropion HCl [Wellbutrin Sr] 150 mg PO DAILY 08/13/19 famotidine 20 mg tablet 20 mg PO BID tab 03/06/20 Calcium Carb/Vitamin D [Os-Chi 500MG + D] 1 tab PO BIDCM 05/09/20 Carvedilol 25 mg PO BID 05/09/20 Furosemide 40 mg PO DAILY 05/09/20 Lisinopril 2.5 mg PO DAILY 05/09/20 Paroxetine HCl [Paxil] 30 mg PO DAILY 05/09/20 Calcium Carb/Vitamin D [Os-Chi 500MG + D] 1 tab PO BIDCM 05/12/20 Carvedilol [Coreg (Beta Shola)] 25 mg PO BIDCM 05/12/20 Cholecalciferol (VIT D3) [Vitamin D] 1,000 unit PO DAILY 05/12/20 Enoxaparin [Lovenox] 40 mg SC DAILY 05/12/20 Lisinopril [Zestril] 2.5 mg PO DAILY 05/12/20 Oxycodone [Oxyir] 5 - 10 mg PO Q6H PRN PRN 7 Days #30 tab 05/12/20 Senna/Docusate Sodium [Senokot-S] 2 tab PO BID PRN PRN tab 05/12/20 Following Prescriptions Were Given to Patient: Oxycodone [Oxyir] 5 - 10 mg PO Q6H PRN PRN 7 Days #30 tab PRN Reason: Pain Score 6-10 Prescription Printed Primary Care Physician: Kei Pineda DO [Primary Care Provider] - Disposition: Longterm facility Minutes spent on discharge:: 31 Patient Condition:: Stable Medical Necessity - Tobacco Use Smoking Status: Former smoker Tobacco Use: Non-smoker Meaningful Use Info Meaningful Use Diagnoses (Choose all that apply): None applicable Inpatient E&M: 48158 Disch Hosp
== END 2020-05-12 17:05 | DRG 481 ==
LOC: ED 18:39 → MS3 05-10 07:09
PROVIDERS: Family Medicine; Orthopaedic Surgery; Admitting Provider Hospitalist; Emergency Provider Emergency Medicine; PCP Student in an Organized Health Care Education/Training Program; Visit Provider Internal Medicine
PROC: (CPT 27245; principal; 2020-05-10 10:00)
DX: S72.141A Displaced intertrochanteric fracture of right femur, initial encounter for closed fracture (principal); I50.22 Chronic systolic (congestive) heart failure; S82.141A Displaced bicondylar fracture of right tibia, initial encounter for closed fracture; M80.051A Age-related osteoporosis with current pathological fracture, right femur, initial encounter for fracture; I42.8 Other cardiomyopathies; D62 Acute posthemorrhagic anemia; J90 Pleural effusion, not elsewhere classified; W01.0XXA Fall on same level from slipping, tripping and stumbling without subsequent striking against object, initial encounter; I11.0 Hypertensive heart disease with heart failure; I95.9 Hypotension, unspecified; F41.9 Anxiety disorder, unspecified; F32.9 Major depressive disorder, single episode, unspecified; I27.21 Secondary pulmonary arterial hypertension; E78.5 Hyperlipidemia, unspecified; K21.9 Gastro-esophageal reflux disease without esophagitis; J44.9 Chronic obstructive pulmonary disease, unspecified; G47.33 Obstructive sleep apnea (adult) (pediatric); Z87.891 Personal history of nicotine dependence; Z98.84 Bariatric surgery status; Z90.49 Acquired absence of other specified parts of digestive tract; G25.81 Restless legs syndrome; Z78.0 Asymptomatic menopausal state; M19.90 Unspecified osteoarthritis, unspecified site; Z79.899 Other long term (current) drug therapy
CPT/HCPCS: 36415; 71045; 73502; 73562; 76000; 80048; 80053; 85025; 85027; 85610; 85730; 86850; 86900; 86901; 87635; 93005; 97110; 97162; 97165; 97530; 97535; 99251; 99285; C1713; J7040; A4216; G0463; J2405; U0002

== ENCOUNTER 2020-05-12 17:29 | Inpatient (IN) | payer MEDICARE, OTHER, SELFPAY ==
[2020-05-10 08:08] VITALS: BMI 36.6
[2020-05-12 17:34] VITALS: BP 107/42; PULSE 86; PULSE 90; RESP 16; TEMP 36.6; O2SAT 98; BMI 38.3
[2020-05-12] MEDS: oxyCODONE 5 MG Tablet PO (20:09)
--- NOTE | 2020-05-12 21:05 | NURSING ---
Addendum entered by Radha Sampson 05/12/20 21:06: meghan [employer] card also locked in med box Original Note: $7 in ones and checkbook with checks [phone] locked in med box. Pt declines to send to security.
--- NOTE | 2020-05-12 22:06 | PCM.HP.STD ---
Problem List (1) Debility Status: Acute (2) Fall Status: Acute (3) Chronic diastolic (congestive) heart failure Status: Chronic (4) Hypertension Status: Chronic (5) GERD (gastroesophageal reflux disease) Status: Chronic (6) Anxiety Status: Chronic (7) Closed right hip fracture Status: Acute (8) Depression Status: Chronic History of Present Illness Date of Admission: 05/12/20 Chief Complaint: Here for rehabilitation, strengthening, prior to discharge home with significant other. 05/09/20 The patient is a 70 year old Female with below past medical history presented to [facility] Emergency Department with fall. 05/09/20 X-ray pelvis, right hip showed right hip fracture. 05/09/20 Chest X-ray negative. Lost balance, fell on right side, unable to get up. Fentanyl given for pain. EKG okay. 05/09/20 Admit to [facility] for [facility]. 05/10/20 Orthopedics performed ORIF right hip with Gamma nail. PT/OT. Postoperative course uncomplicated. 05/12/20 Admit to TCU with debility, here for rehabilitation, strengthening, prior to discharge home with significant other. Past Medical History Past Medical History (Chronic Problems): Chronic Problems (Last Updated 05/09/20 @ 19:[address] Tim Cole MD) Chronic depression (Chronic) Chronic diastolic (congestive) heart failure (Chronic) Hypertension (Chronic) GERD (gastroesophageal reflux disease) (Chronic) Anxiety (Chronic) Depression (Chronic) COPD (chronic obstructive pulmonary disease) (Chronic) Chronic anemia (Chronic) ACUTE ON CHRONIC ANEMIA DUE TO BLOOD LOSS FROM RIGHT HIP FRACTURE Non-ischemic cardiomyopathy (Chronic) Chronic systolic (congestive) heart failure (Chronic) Secondary pulmonary arterial hypertension (Chronic) Medical History: Medical History (Last Updated 05/09/20 @ 19:[address] Tim Cole MD) Non-ischemic cardiomyopathy (Chronic) I42.8 Chronic systolic (congestive) heart failure (Chronic) I50.22 Secondary pulmonary arterial hypertension (Chronic) I27.21 Anemia D64.9 Bilateral pleural effusion J90 COPD (chronic obstructive pulmonary disease) J44.9 Depression F32.9 Frequent falls R29.6 GERD (gastroesophageal reflux disease) K21.9 Obesity E66.9 Obstructive sleep apnea G47.33 Osteoarthritis M19.90 Osteoporosis M81.0 Abnormal electrocardiogram (Inactive) R94.31 Congestive heart failure (CHF) (Inactive) I50.9 Dilated cardiomyopathy (Inactive) I42.0 Allergies diclofenac [From Voltaren] Allergy (Verified 03/06/20 10:42) Rash acetaminophen [From Vicodin] Adverse Reaction (Verified 03/06/20 10:42) Other hydrocodone [From Vicodin] Adverse Reaction (Verified 03/06/20 10:42) Other Home Medications: Ambulatory Orders Medication Instructions Recorded Bupropion HCl [Wellbutrin Sr] 150 mg PO DAILY 08/13/19 famotidine 20 mg tablet 20 mg PO BID tab 03/06/20 Calcium Carb/Vitamin D [Os-Chi 1 tab PO BIDCM 05/09/20 500MG + D] Carvedilol 25 mg PO BID 05/09/20 Furosemide 40 mg PO DAILY 05/09/20 Lisinopril 2.5 mg PO DAILY 05/09/20 Paroxetine HCl [Paxil] 30 mg PO DAILY 05/09/20 Calcium Carb/Vitamin D [Os-Chi 1 tab PO BIDCM 05/12/20 500MG + D] Carvedilol [Coreg (Beta Shola)] 25 mg PO BIDCM 05/12/20 Cholecalciferol (VIT D3) [Vitamin 1,000 unit PO DAILY 05/12/20 D] Enoxaparin [Lovenox] 40 mg SC DAILY 05/12/20 Lisinopril [Zestril] 2.5 mg PO DAILY 05/12/20 Oxycodone [Oxyir] 5 - 10 mg PO Q6H PRN PRN 7 Days 05/12/20 #30 tab Senna/Docusate Sodium [Senokot-S] 2 tab PO BID PRN PRN tab 05/12/20 Surgical History: Surgical History (Last Reviewed 03/06/20 @ 10:[address] Charlie Ovalle MD) History of Z98.891 History of gastric bypass Z98.84 History of herniorrhaphy Z98.890, Z87.19 History of left heart catheterization Onset Date: 12/05/18 Z98.890 History of open reduction and internal fixation (ORIF) procedure Z98.89 Left femur History of open reduction and internal fixation (ORIF) procedure Z LUE History of tonsillectomy Z90.89 Hx of cholecystectomy Z90.49 Surgical History: cholecystectomy, gastric bypass, herniorrhaphy - Incisional., tonsillectomy, - - , ORIF left femur, ORIF left upper extremity, ORIF right hip. 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 Charlie Ovalle MD) Mother Diabetes Heart disease Hypertension Hyperlipidemia Father Diabetes Heart disease Hypertension Hyperlipidemia History Items: Diabetes, High Cholesterol, Heart Disease, Hypertension Paternal Family History: Family History (Last Reviewed 03/06/20 @ 10:[address] Charlie Ovalle MD) Mother Diabetes Heart disease Hypertension Hyperlipidemia Father Diabetes Heart disease Hypertension Hyperlipidemia History Items: Diabetes, High Cholesterol, Heart Disease, Hypertension Review of Systems Constitutional: Denies: Chills, Fever, Weight Change HEENT: Denies: Head Aches, Sinus Congestion, Sinus Drainage Cardiovascular: Denies: Chest Pain, Palpitations Respiratory: Denies: Cough, Shortness of breath at rest, Sputum production Gastrointestinal: Denies: Abdominal Pain, Nausea, Vomiting Genitourinary: Denies: Dysuria Musculoskeletal: Denies: Joint Pain, Joint Tenderness Skin: Denies: Rash, Wounds Neurological: Denies: Numbness, Tingling, Focal weakness Psychiatric: Denies: Anxiety, Depression, Homicidal Ideations, Suicidal Ideations Hematologic/ Lymphatic: Denies: Easy Bruising, Easy Bleeding VTE Information - Inpt Only VTE Present on Admission: No VTE Mechan Device Prophylaxis: Knee High JOEL Hose VTE Pharm Prophylaxis ordered?: Yes Patient Problems: Active and Suspected Problems (Last Updated 05/09/20 @ 19:[address] Tim Cole MD) Debility (Acute) Fall (Acute) Closed right hip fracture (Acute) - Physical Exam Vitals/I&O's: Vital Signs Temp Pulse Resp BP Pulse Ox 97.9 F 86 16 107/42 L 98 05/12/20 17:34 05/12/20 17:34 05/12/20 17:34 05/12/20 17:34 05/12/20 17:34 Oxygen Delivery Method Room Air Weight: 86.2 kg Body Mass Index (BMI) 38.3 General: Alert, Oriented x3, Cooperative HEENT: Atraumatic, PERRLA, EOMI, Normocephalic Neck: Supple, No JVD, Negative Carotid Bruits Lungs: Clear to auscultation, Normal air movement Cardiovascular: Regular rate, No murmurs Abdomen: Bowel Sounds Present, Soft, Non Tender Extremities: No edema, Capillary Refill Less than 3 Seconds Skin: No rashes, No breakdown Musculoskeletal: No Tenderness to Palpation of Joints or Extremities Neurological: Cranial nerves II-XII grossly intact Psych/Mental Status: Normal Affect, Appropriate Current Medications Bupropion HCl (Bupropion (Sr) 150 Mg Tablet.Sa) 150 mg PO DAILY [facility] Calcium/Vitamin D (Calcium Carb/Vitamin D 1 Tablet Tablet) 1 tablet PO BIDCM [facility] Carvedilol (Carvedilol 25 Mg Tablet) 25 mg PO BIDCM [facility] Cholecalciferol (Cholecalciferol (Vit D3) 1,000 Unit (25mcg)) 1,000 unit PO DAILY [facility] Enoxaparin Sodium (Enoxaparin 40 Mg/0.4 Ml Syringe) 40 mg SC DAILY [facility] Stop: 06/02/20 06:00 Famotidine (Famotidine 20 Mg Tablet) 20 mg PO BID [facility] Furosemide (Furosemide 40 Mg Tablet) 40 mg PO DAILY [facility] Lisinopril (Lisinopril 2.5 Mg Tablet) 2.5 mg PO DAILY [facility] Oxycodone HCl (Oxycodone 5 Mg Tablet) 5 - 10 mg PO Q6H PRN PRN PRN Reason: Pain Score 6-10 Last Admin: 05/12/20 20:09 Dose: 10 mg Documented by: Paroxetine HCl (Paroxetine 20 Mg Tablet) 30 mg PO DAILY [facility] Senna/Docusate Sodium (Senna/Docusate Sodium 1 Tablet) 2 tablet PO BID PRN PRN PRN Reason: Constipation Tuberculin PPD (Tuberculin,Purif.Prot.Deriv. 50 Tu/Ml Vial) 5 tu ID X1 ONE Stop: 05/13/20 10:01 Tuberculin PPD (Tuberculin,Purif.Prot.Deriv. 50 Tu/Ml Vial) 5 tu ID X1 ONE Stop: 05/20/20 10:01 Assessment/Plan All Active Problems (Last Updated 05/09/20 @ 19:[address] Tim Cole MD) Right medial tibial plateau fracture (Acute) Debility (Acute) Fall (Acute) Closed right hip fracture (Acute) 70 year old female with below past medical history hospitalized for right hip fracture, underwent ORIF right hip with Gamma nail 05/10/20, postoperative course uncomplicated, admitted to TCU with debility, here for rehabilitation, strengthening, prior to discharge home with significant other. Debility - PT/OT. Pain - Tylenol 1000MG Q8H, Oxycodone 5MG Q4H PRN pain (6-10). Bowel - Miralax 17GM daily, Senna/colace 2 tablets BID, MOM 30ML daily PRN, Dulcolax 10MG NM daily PRN. Adult immunization - Administer Prevnar 13, Pneumovax 23, Fluzone as appropriate. DVT prophylaxis - Lovenox 40MG SC daily. 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 Calcium deficiency - Calcium D BID. Chronic diastolic congestive heart failure - Coreg 25MG BID, Lisinopril 2.5MG daily, Lasix 40MG daily. Vitamin D deficiency - D3 1000IU daily. GERD - Famotidine 20MG BID. 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
[2020-05-13 05:04] VITALS: BP 139/58; PULSE 84; RESP 20; TEMP 37; O2SAT 95
[2020-05-13] MEDS: Furosemide 40 MG Tablet PO (05:06)
[2020-05-13] MEDS: Paroxetine 20 MG Tablet 30 MG PO (05:07)
[2020-05-13] MEDS: Famotidine 20 MG Tablet PO ×2 (05:07→17:04)
[2020-05-13] MEDS: Lisinopril 2.5 MG Tablet PO (05:07)
[2020-05-13] MEDS: Enoxaparin 40 MG/0.4 ML Syringe SC (05:07)
[2020-05-13] MEDS: buPROPion (SR) 150 MG Tablet.SA PO (05:07)
[2020-05-13] MEDS: Senna/Docusate Sodium 1 Tablet 2 TABLET PO ×2 (05:08→17:02)
[2020-05-13] MEDS: Polyethylene Glycol 3350 17 GM PACKET PO (05:08)
[2020-05-13] MEDS: Acetaminophen 500 MG Tablet 1000 MG PO ×3 (05:09→19:48)
[2020-05-13] MEDS: Nystatin Powder 15gm Bottle 1 APPLIC TOPICAL ×2 (05:22→17:04)
[2020-05-13 05:45] LABS: Absolute Lymphocyte Count 2.23 X10^3/uL (0.83-4.51); Absolute Neutrophil Count 4.4 X10^3/uL (2.0-7.7); Basophil# 0.03 X10^3/uL; Basophil% 0.4 % (0-1); Eosinophil# 0.03 X10^3/uL; Eosinophils% 0.4 % (0-5); Hematocrit 24.9 % (37-47); Hemoglobin 7.8 g/dL (12.0-15.0); Lymphocyte # 2.23 X10^3/ul (4.0); Lymphocyte % 29.5 % (19-41); Mean Corp Hgb Conc 31.3 g/dL (32-36); Mean Corpuscular Hgb 28.3 pg (27.0-32.0); Mean Corpuscular Volume 90.2 fL (81-99); Mean Platelet Vol. 9.6 fl (6.2-12.0); Monocyte# 0.87 X10^3/uL; Monocyte% 11.5 % (0-10); NRBC Flagged by Analyzer 0 % (0-5); Neutrophil # 4.35 X10^3/uL (2.7-7.7); Neutrophil % 57.7 % (47-70); Platelet Count 225 K/mm3 (150-450); RBC Distribution Width CV 14.2 % (11.6-14.6); RBC Distribution Width SD 46.5 fl (35.1-43.9); Red Blood Count 2.76 M/mm3 (4.2-5.4); White Blood Count 7.6 K/mm3 (4.4-11.0)
[2020-05-13 06:08] LABS: Anion Gap 5 (5-15); BUN 23 mg/dL (7-18); BUN/Creat Ratio 36.1 RATIO (10-20); Calcium,Total 8.6 mg/dL (8.5-10.1); Chloride 104 mmol/L (98-107); Creatinine, Serum 0.64 mg/dL (0.55-1.02); EST Glomerular Filtration Rate 97 mL/min (>60); Est Glom Filt Rate - Afr Amer 118 mL/min (>60); Glucose 116 mg/dL (74-106); Potassium 4.1 mmol/L (3.5-5.1); Sodium Level 137 mmol/L (136-145)
[2020-05-13] MEDS: oxyCODONE 5 MG Tablet PO ×4 (07:24→23:49)
[2020-05-13] MEDS: Carvedilol 25 MG Tablet PO (07:28)
[2020-05-13] MEDS: Calcium Carb/Vitamin D 1 TABLET Tablet PO ×2 (07:28→17:04)
--- NOTE | 2020-05-13 09:19 | NURSING ---
Patient's sister called this morning and given an update on patient status. Sister appreciative of phone call.
[2020-05-13] MEDS: Iron Polysaccharide Complex 150 MG CAPSULE PO (11:46)
[2020-05-13] MEDS: Tuberculin,Purif.prot.deriv. 50 TU/ML Vial 5 ML ID (11:47)
--- NOTE | 2020-05-13 11:49 | CASEMGMT ---
Social Work Discussed code status with pt. Pt confirmed full code. MOLST form reviewed with pt and communication to physician. Placed in chart. Iwona Strickland, DIESEL DINKEY OPERATOR PING PONG TABLE ASSEMBLER
[2020-05-13 13:44] VITALS: BP 94/50; PULSE 79; RESP 16; TEMP 36.5; O2SAT 95
--- NOTE | 2020-05-13 15:20 | CHAPLAIN ---
Type of Pastoral Visit _x__ Initial Visit ___ Follow-up Visit ___ On-call Visit ___ General Patient Visit ___ Spiritual Assessment ___ Family Conference ___ Bereavement ___ Rapid Response ___ Code Blue ___ Other (describe below) Pastoral Care Referral From _x__ Patient ___ Family ___ Nurse ___ Physician ___ Forklift Technician ___ Oil Field Technician ___ Other (describe below) Sacrament/Intervention ___ Active listening ___ Anointing ___ Pentecostalism ___ Bereavement ___ Communion ___ Shivani exploration ___ ___ Life review _x__ Prayer ___ Reconciliation ___ Sacrament of Sick _x__ Supportive presence ___ Wedding ___ Other (describe below) Pastoral Comments patient is resting in bed, gives summary of her reason for being in hospital, and asks for a prayer; pt is member of local [employer]
--- NOTE | 2020-05-13 16:17 | NURSING ---
dr coles aware of hgb 7.8, new order to admin 2 units blood on 05/14/20. RN catastrophe claims supervisor and TCU heavy equipment service manager notified.
[2020-05-13 17:11] VITALS: BP 86/36; PULSE 82
--- NOTE | 2020-05-13 17:13 | NURSING ---
dr coles updated on blood pressure 86/36 HR 82. new order to hold coreg this evening. pt aware.
[2020-05-13] MEDS: Magnesium Hydroxide 30 ML UDC PO (19:47)
[2020-05-14] VITALS (13 sets, daily range): BP systolic 84–126; BP diastolic 32–76; PULSE 78–90; RESP 16–18; TEMP 36.1–37.2; O2SAT 95–96
[2020-05-14] MEDS: 0.9% Saline Lock 10 ML Syringe IV (05:29)
[2020-05-14] MEDS: Furosemide 40 MG Tablet PO (05:30)
[2020-05-14] MEDS: Lisinopril 2.5 MG Tablet PO (05:30)
[2020-05-14] MEDS: buPROPion (SR) 150 MG Tablet.SA PO (05:30)
[2020-05-14] MEDS: Paroxetine 20 MG Tablet 30 MG PO (05:30)
[2020-05-14] MEDS: Famotidine 20 MG Tablet PO ×2 (05:31→17:51)
[2020-05-14] MEDS: Polyethylene Glycol 3350 17 GM PACKET PO (05:31)
[2020-05-14] MEDS: Senna/Docusate Sodium 1 Tablet 2 TABLET PO ×2 (05:31→17:08)
[2020-05-14] MEDS: Acetaminophen 500 MG Tablet 1000 MG PO ×3 (05:31→21:36)
[2020-05-14] MEDS: Nystatin Powder 15gm Bottle 1 APPLIC TOPICAL ×2 (05:31→17:09)
[2020-05-14] MEDS: Calcium Carb/Vitamin D 1 TABLET Tablet PO ×2 (08:53→17:48)
[2020-05-14] MEDS: Iron Polysaccharide Complex 150 MG CAPSULE PO (08:53)
[2020-05-14] MEDS: Magnesium Citrate 300 ML PO (09:00)
[2020-05-14] MEDS: oxyCODONE 5 MG Tablet PO ×2 (09:01→18:36)
--- NOTE | 2020-05-14 11:23 | NURSING ---
Shoes had been delivered by family for pt. taken to room for pt by this nurse.
--- NOTE | 2020-05-14 13:37 | NURSING ---
Resident and sister, Yajaira, notified of staff members testing positive for COVID19.
--- NOTE | 2020-05-14 14:44 | PHA.CONS_ITS ---
<Nolvia Stanley M - Last Filed: 05/14/20 14:44> Progress Note - Pharmacy Subjective: TCU ADMISSION Objective: Allergies diclofenac [From Voltaren] Allergy (Verified 03/06/20 10:42) Rash acetaminophen [From Vicodin] Adverse Reaction (Verified 03/06/20 10:42) Other hydrocodone [From Vicodin] Adverse Reaction (Verified 03/06/20 10:42) Other Current Medications Generic Name Dose Route Start Last Admin Trade Name Rudy PRN Reason Stop Dose Admin Acetaminophen 1,000 mg 05/13/20 06:00 05/14/20 13:26 Acetaminophen 500 Mg Tablet PO 1,000 mg Q8 CHIDI Administration Bisacodyl 10 mg 05/12/20 22:18 Bisacodyl 10 Mg Suppository RECTAL DAILY PRN Constipation Bupropion HCl 150 mg 05/13/20 06:00 05/14/20 05:30 Bupropion (Sr) 150 Mg Tablet.Sa PO 150 mg DAILY CHIDI Administration Calcium/Vitamin D 1 tablet 05/13/20 08:00 05/14/20 08:53 Calcium Carb/Vitamin D 1 Tablet Tablet PO 1 tablet BIDCM CHIDI Administration Carvedilol 25 mg 05/13/20 08:00 05/14/20 08:55 Carvedilol 25 Mg Tablet PO Not Given BIDCM [facility] Cholecalciferol 1,000 unit 05/13/20 06:00 05/14/20 05:30 Cholecalciferol (Vit D3) 1,000 Unit (25mcg) PO 1,000 unit DAILY CHIDI Administration Famotidine 20 mg 05/13/20 06:00 05/14/20 05:31 Famotidine 20 Mg Tablet PO 20 mg BID CHIDI Administration Furosemide 40 mg 05/13/20 06:00 05/14/20 05:30 Furosemide 40 Mg Tablet PO 40 mg DAILY CHIDI Administration Sodium Chloride 250 mls @ 15 mls/hr 05/13/20 17:00 IV .[id number] PRN Saline Flush Sodium Chloride 250 mls @ 15 mls/hr 05/13/20 17:00 IV .[id number] PRN Additional IVPB Infusion Lisinopril 2.5 mg 05/13/20 06:00 05/14/20 05:30 Lisinopril 2.5 Mg Tablet PO 2.5 mg DAILY CHIDI Administration Magnesium Hydroxide 30 ml 05/12/20 22:18 05/13/20 19:47 Magnesium Hydroxide 30 Ml Udc PO 30 ml DAILY PRN Administration Constipation Nystatin 1 applic 05/13/20 06:00 05/14/20 05:31 Nystatin Powder 15gm Bottle TOPICAL 1 applicatio BID CHIDI Administration Protocol Oxycodone HCl 5 mg 05/12/20 22:18 05/14/20 09:01 Oxycodone 5 Mg Tablet PO 5 mg Q4H PRN PRN Administration Pain Score 6-10 Paroxetine HCl 30 mg 05/13/20 06:00 05/14/20 05:30 Paroxetine 20 Mg Tablet PO 30 mg DAILY CHIDI Administration Polyethylene Glycol 17 gm 05/13/20 06:00 05/14/20 05:31 Polyethylene Glycol 3350 17 Gm Packet PO 17 gm DAILY CHIDI Administration Polysaccharide Iron Complex 150 mg 05/13/20 08:30 05/14/20 08:53 Iron Polysaccharide Complex 150 Mg Capsule PO 150 mg DAILYCM CHIDI Administration Senna/Docusate Sodium 2 tablet 05/13/20 06:00 05/14/20 05:31 Senna/Docusate Sodium 1 Tablet PO 2 tablet BID CHIDI Administration Sodium Chloride 10 - 40 ml 05/13/20 17:00 05/14/20 05:29 0.9% Saline Lock 10 Ml Syringe IV 10 ml UD PRN Administration SALINE FLUSH Tuberculin PPD 5 tu 05/20/20 10:00 Tuberculin,Purif.Prot.Deriv. 50 Tu/Ml Vial ID 05/20/20 10:01 X1 ONE Problem List (Last Updated 05/09/20 @ 19:[address] Tim Cole MD) Debility (Acute) Fall (Acute) Chronic diastolic (congestive) heart failure (Chronic) Hypertension (Chronic) GERD (gastroesophageal reflux disease) (Chronic) Anxiety (Chronic) Closed right hip fracture (Acute) Depression (Chronic) Vital Signs Temp Pulse Resp BP Pulse Ox 97.6 F L 79 20 H 97/53 L 95 05/14/20 03:47 05/14/20 03:47 05/14/20 12:51 05/14/20 03:47 05/14/20 03:47 Oxygen Delivery Method Room Air Weight: 86.2 kg Body Mass Index (BMI) 38.3 Sodium 137 mmol/L (136-145) 05/13/20 05:20 Potassium 4.1 mmol/L (3.5-5.1) 05/13/20 05:20 Chloride 104 mmol/L (98-107) 05/13/20 05:20 Carbon Dioxide 28.0 mmol/L (21.0-32.0) 05/13/20 05:20 Anion Gap 5 (5-15) 05/13/20 05:20 BUN 23 mg/dL (7-18) H 05/13/20 05:20 Creatinine 0.64 mg/dL (0.55-1.02) 05/13/20 05:20 Est GFR (MDRD) Af Amer 118 mL/min (>60) 05/13/20 05:20 Est GFR (MDRD) Non-Af 97 mL/min (>60) 05/13/20 05:20 BUN/Creatinine Ratio 36.1 RATIO (10-20) H 05/13/20 05:20 Glucose 116 mg/dL (74-106) H 05/13/20 05:20 Assessment/Plan: 1. Pain: Tylenol 1000mg PO Q8h, Oxycodone 5mg PO Q4h PRN pain -04/19. Please continue to monitor for increased/decreased S/S pain, PRN medication usage. 2. CHF: Coreg 25mg PO BID, Lasix 40mg PO daily, Lisinopril 2.5mg PO daily. 3. GERD: Pepcid 20mg PO BID. Please continue to monitor for S/S GERD e xacerbations, renal function. Please also encourage non-pharmacologic therapies as well to reduce incidence of GERD, thanks. 4. Post-operative Anemia: Ferrex 150mg PO Daily. Please continue to monitor H/H, iron studies as clinically indicated. 5. General Wellness: Os-brandy + D 1 tab PO BID, Cholecalciferol 1000 unit PO Daily. Please continue to monitor. Psychotropic Medications: *6. Depression/Anxiety: Wellbutrin SR 150mg PO Daily, Paxil 30mg PO Daily. Please consider a GDR by 11/2020 if clinically indicated, thank you. Unnecessary Medications: None Bowel Regimen: Miralax 17g PO Daily, Senna/Docusate 2 tab PO BID, MOM 30mL po Daily PRN, Bisacodyl 10mg DC daily PRN. Please continue to monitor for increased/decreased S/S constipation and/or diarrhea. Date of Note:: 05/14/20 - Provider Comments Provider responsibility: Provider responsible to enter orders to implement recommendations <Kishan Espinal Chi - Last Filed: 05/14/20 17:20> Progress Note - Pharmacy Subjective: [] Objective: Allergies diclofenac [From Voltaren] Allergy (Verified 03/06/20 10:42) Rash acetaminophen [From Vicodin] Adverse Reaction (Verified 03/06/20 10:42) Other hydrocodone [From Vicodin] Adverse Reaction (Verified 03/06/20 10:42) Other Current Medications Generic Name Dose Route Start Last Admin Trade Name Freq PRN Reason Stop Dose Admin Acetaminophen 1,000 mg 05/13/20 06:00 05/14/20 13:26 Acetaminophen 500 Mg Tablet PO 1,000 mg Q8 CHIDI Administration Bisacodyl 10 mg 05/12/20 22:18 Bisacodyl 10 Mg Suppository RECTAL DAILY PRN Constipation Bupropion HCl 150 mg 05/13/20 06:00 05/14/20 05:30 Bupropion (Sr) 150 Mg Tablet.Sa PO 150 mg DAILY CHIDI Administration Calcium/Vitamin D 1 tablet 05/13/20 08:00 05/14/20 08:53 Calcium Carb/Vitamin D 1 Tablet Tablet PO 1 tablet BIDCM CHIDI Administration Carvedilol 25 mg 05/13/20 08:00 05/14/20 17:08 Carvedilol 25 Mg Tablet PO Not Given BIDCM CHIDI Cholecalciferol 1,000 unit 05/13/20 06:00 05/14/20 05:30 Cholecalciferol (Vit D3) 1,000 Unit (25mcg) PO 1,000 unit DAILY CHIDI Administration Famotidine 20 mg 05/13/20 06:00 05/14/20 05:31 Famotidine 20 Mg Tablet PO 20 mg BID CHIDI Administration Furosemide 40 mg 05/13/20 06:00 05/14/20 05:30 Furosemide 40 Mg Tablet PO 40 mg DAILY CHIDI Administration Sodium Chloride 250 mls @ 15 mls/hr 05/13/20 17:00 IV .[id number] PRN Saline Flush Sodium Chloride 250 mls @ 15 mls/hr 05/13/20 17:00 IV .[id number] PRN Additional IVPB Infusion Lisinopril 2.5 mg 05/13/20 06:00 05/14/20 05:30 Lisinopril 2.5 Mg Tablet PO 2.5 mg DAILY CHIDI Administration Magnesium Hydroxide 30 ml 05/12/20 22:18 05/13/20 19:47 Magnesium Hydroxide 30 Ml Udc PO 30 ml DAILY PRN Administration Constipation Nystatin 1 applic 05/13/20 06:00 05/14/20 17:09 Nystatin Powder 15gm Bottle TOPICAL 1 applicatio BID CHIDI Administration Protocol Oxycodone HCl 5 mg 05/12/20 22:18 05/14/20 09:01 Oxycodone 5 Mg Tablet PO 5 mg Q4H PRN PRN Administration Pain Score 6-10 Paroxetine HCl 30 mg 05/13/20 06:00 05/14/20 05:30 Paroxetine 20 Mg Tablet PO 30 mg DAILY CHIDI Administration Polyethylene Glycol 17 gm 05/13/20 06:00 05/14/20 05:31 Polyethylene Glycol 3350 17 Gm Packet PO 17 gm DAILY CHIDI Administration Polysaccharide Iron Complex 150 mg 05/13/20 08:30 05/14/20 08:53 Iron Polysaccharide Complex 150 Mg Capsule PO 150 mg DAILYCM CHIDI Administration Senna/Docusate Sodium 2 tablet 05/13/20 06:00 05/14/20 17:08 Senna/Docusate Sodium 1 Tablet PO 2 tablet BID CHIDI Administration Sodium Chloride 10 - 40 ml 05/13/20 17:00 05/14/20 05:29 0.9% Saline Lock 10 Ml Syringe IV 10 ml UD PRN Administration SALINE FLUSH Tuberculin PPD 5 tu 05/20/20 10:00 Tuberculin,Purif.Prot.Deriv. 50 Tu/Ml Vial ID 05/20/20 10:01 X1 ONE Problem List (Last Updated 05/09/20 @ 19:[address] Tim Cole MD) Debility (Acute) Fall (Acute) Chronic diastolic (congestive) heart failure (Chronic) Hypertension (Chronic) GERD (gastroesophageal reflux disease) (Chronic) Anxiety (Chronic) Closed right hip fracture (Acute) Depression (Chronic) Vital Signs Temp Pulse Resp BP Pulse Ox 97.3 F L 84 16 100/42 L 95 05/14/20 16:44 05/14/20 16:44 05/14/20 16:44 05/14/20 16:44 05/14/20 16:44 Oxygen Delivery Method Room Air Weight: 86.2 kg Body Mass Index (BMI) 38.3 Sodium 137 mmol/L (136-145) 05/13/20 05:20 Potassium 4.1 mmol/L (3.5-5.1) 05/13/20 05:20 Chloride 104 mmol/L (98-107) 05/13/20 05:20 Carbon Dioxide 28.0 mmol/L (21.0-32.0) 05/13/20 05:20 Anion Gap 5 (5-15) 05/13/20 05:20 BUN 23 mg/dL (7-18) H 05/13/20 05:20 Creatinine 0.64 mg/dL (0.55-1.02) 05/13/20 05:20 Est GFR (MDRD) Af Amer 118 mL/min (>60) 05/13/20 05:20 Est GFR (MDRD) Non-Af 97 mL/min (>60) 05/13/20 05:20 BUN/Creatinine Ratio 36.1 RATIO (10-20) H 05/13/20 05:20 Glucose 116 mg/dL (74-106) H 05/13/20 05:20 Assessment/Plan: Psychotropic Medications: Unnecessary Medications: Bowel Regimen: - Provider Comments Provider responsibility: Provider responsible to enter orders to implement recommendations Provider Comments to Recommendations by Pharmacy: Agree
[2020-05-15] MEDS: oxyCODONE 5 MG Tablet PO ×4 (02:54→19:54)
[2020-05-15 05:34] LABS: Hematocrit 28.1 % (37-47); Hemoglobin 8.9 g/dL (12.0-15.0)
[2020-05-15 06:08] VITALS: BP 104/32; PULSE 76; RESP 16; TEMP 36.4; O2SAT 97
[2020-05-15] MEDS: Polyethylene Glycol 3350 17 GM PACKET PO (06:10)
[2020-05-15] MEDS: Paroxetine 20 MG Tablet 30 MG PO (06:11)
[2020-05-15] MEDS: Senna/Docusate Sodium 1 Tablet 2 TABLET PO ×2 (06:11→17:13)
[2020-05-15] MEDS: Lisinopril 2.5 MG Tablet PO (06:12)
[2020-05-15] MEDS: Nystatin Powder 15gm Bottle 1 APPLIC TOPICAL ×2 (06:12→17:14)
[2020-05-15] MEDS: buPROPion (SR) 150 MG Tablet.SA PO (06:12)
[2020-05-15] MEDS: Furosemide 40 MG Tablet PO (06:12)
[2020-05-15] MEDS: Famotidine 20 MG Tablet PO ×2 (06:12→17:14)
[2020-05-15] MEDS: Acetaminophen 500 MG Tablet 1000 MG PO ×3 (06:12→19:35)
[2020-05-15] MEDS: Bisacodyl 10 MG Suppository RECTAL (06:13)
[2020-05-15] MEDS: 0.9% Saline Lock 10 ML Syringe IV ×2 (06:15→17:06)
--- NOTE | 2020-05-15 08:02 | NURSING ---
Pt Blood Pressure 104/[address] Espinal made aware said to go ahead and administer the Coreg.
[2020-05-15] MEDS: Iron Polysaccharide Complex 150 MG CAPSULE PO (08:07)
[2020-05-15] MEDS: Calcium Carb/Vitamin D 1 TABLET Tablet PO ×2 (08:07→17:14)
[2020-05-15] MEDS: Carvedilol 25 MG Tablet PO (08:07)
[2020-05-15 13:03] VITALS: BP 94/33; PULSE 91; RESP 16; TEMP 36.3; O2SAT 92
--- NOTE | 2020-05-15 17:18 | NURSING ---
Addendum entered by Milagro Simmons 05/15/20 17:41: dr espinal aware, parameters added Original Note: Held Coreg bp 101/44 [address] Will update [address] Espinal.
[2020-05-16] MEDS: oxyCODONE 5 MG Tablet PO ×4 (02:40→22:03)
[2020-05-16 06:28] VITALS: BP 114/60; PULSE 79; RESP 16; TEMP 36.6; O2SAT 97
[2020-05-16] MEDS: Polyethylene Glycol 3350 17 GM PACKET PO (06:29)
[2020-05-16] MEDS: Acetaminophen 500 MG Tablet 1000 MG PO ×3 (06:31→20:36)
[2020-05-16] MEDS: Furosemide 40 MG Tablet PO (06:31)
[2020-05-16] MEDS: Paroxetine 20 MG Tablet 30 MG PO (06:31)
[2020-05-16] MEDS: Famotidine 20 MG Tablet PO ×2 (06:31→17:23)
[2020-05-16] MEDS: Lisinopril 2.5 MG Tablet PO (06:31)
[2020-05-16] MEDS: Senna/Docusate Sodium 1 Tablet 2 TABLET PO (06:31)
[2020-05-16] MEDS: buPROPion (SR) 150 MG Tablet.SA PO (06:31)
[2020-05-16] MEDS: Nystatin Powder 15gm Bottle 1 APPLIC TOPICAL ×2 (06:32→16:18)
[2020-05-16] MEDS: 0.9% Saline Lock 10 ML Syringe IV ×3 (06:35→17:22)
[2020-05-16] MEDS: Calcium Carb/Vitamin D 1 TABLET Tablet PO ×2 (08:00→17:22)
[2020-05-16] MEDS: Iron Polysaccharide Complex 150 MG CAPSULE PO (08:00)
[2020-05-16] MEDS: Carvedilol 25 MG Tablet PO (08:00)
[2020-05-16 09:38] VITALS: PULSE 77; RESP 16; O2SAT 95
--- NOTE | 2020-05-16 14:34 | NURSING ---
pt requested Melatonin to help with sleep at night. Dr. Espinal notified, received order to for Melatonin 10mg qhs, order repeated back, will add order.
[2020-05-16 15:17] VITALS: BP 91/39; PULSE 57; RESP 17; TEMP 36; O2SAT 98
--- NOTE | 2020-05-16 16:23 | NURSING ---
Assisted to bathroom. Reports feeling a little lightheaded upon sitting up. Low BP. Will hold the Coreg at this time.
[2020-05-16] MEDS: MELATONIN 10 MG TABLET PO (20:36)
--- NOTE | 2020-05-17 02:25 | NURSING ---
Pt resting in bed, hob slightly elevated. Resting with eyes closed, resp even, appears to bed sleeping
[2020-05-17 05:26] VITALS: BP 115/57; PULSE 81; RESP 16; TEMP 36.8; O2SAT 96
[2020-05-17] MEDS: Paroxetine 20 MG Tablet 30 MG PO (05:27)
[2020-05-17] MEDS: Senna/Docusate Sodium 1 Tablet 2 TABLET PO (05:27)
[2020-05-17] MEDS: Famotidine 20 MG Tablet PO ×2 (05:27→15:52)
[2020-05-17] MEDS: buPROPion (SR) 150 MG Tablet.SA PO (05:27)
[2020-05-17] MEDS: Furosemide 40 MG Tablet PO (05:27)
[2020-05-17] MEDS: Lisinopril 2.5 MG Tablet PO (05:27)
[2020-05-17] MEDS: Acetaminophen 500 MG Tablet 1000 MG PO ×3 (05:28→20:41)
[2020-05-17] MEDS: Nystatin Powder 15gm Bottle 1 APPLIC TOPICAL ×2 (05:30→15:50)
[2020-05-17] MEDS: oxyCODONE 5 MG Tablet PO ×2 (08:17→20:42)
[2020-05-17] MEDS: Calcium Carb/Vitamin D 1 TABLET Tablet PO ×2 (08:19→15:50)
[2020-05-17] MEDS: Iron Polysaccharide Complex 150 MG CAPSULE PO (08:19)
[2020-05-17] MEDS: Carvedilol 25 MG Tablet PO (08:19)
[2020-05-17 14:02] VITALS: BP 100/62; PULSE 85; RESP 17; TEMP 36.6; O2SAT 90
[2020-05-17] MEDS: MELATONIN 10 MG TABLET PO (20:41)
[2020-05-17] MEDS: 0.9% Saline Lock 10 ML Syringe IV (20:43)
[2020-05-18 05:06] VITALS: BP 127/55; PULSE 79; RESP 16; TEMP 37.1; O2SAT 94
[2020-05-18] MEDS: oxyCODONE 5 MG Tablet PO ×2 (05:06→20:16)
[2020-05-18] MEDS: buPROPion (SR) 150 MG Tablet.SA PO (05:07)
[2020-05-18] MEDS: Acetaminophen 500 MG Tablet 1000 MG PO ×3 (05:07→20:17)
[2020-05-18] MEDS: Lisinopril 2.5 MG Tablet PO (05:07)
[2020-05-18] MEDS: Paroxetine 20 MG Tablet 30 MG PO (05:07)
[2020-05-18] MEDS: Furosemide 40 MG Tablet PO (05:08)
[2020-05-18] MEDS: Famotidine 20 MG Tablet PO ×2 (05:08→16:28)
[2020-05-18] MEDS: Nystatin Powder 15gm Bottle 1 APPLIC TOPICAL ×2 (05:10→16:29)
[2020-05-18] MEDS: Carvedilol 25 MG Tablet PO ×2 (07:40→16:28)
[2020-05-18] MEDS: Calcium Carb/Vitamin D 1 TABLET Tablet PO ×2 (07:40→16:28)
[2020-05-18] MEDS: Iron Polysaccharide Complex 150 MG CAPSULE PO (07:41)
[2020-05-18] MEDS: 0.9% Saline Lock 10 ML Syringe IV ×2 (13:22→20:19)
[2020-05-18 13:40] VITALS: BP 102/50; PULSE 82; RESP 18; TEMP 36.8; O2SAT 97
[2020-05-18] MEDS: MELATONIN 10 MG TABLET PO (20:18)
[2020-05-19 05:41] VITALS: BP 125/66; PULSE 78; RESP 18; TEMP 36.7; O2SAT 96
[2020-05-19] MEDS: Acetaminophen 500 MG Tablet 1000 MG PO ×3 (05:42→19:42)
[2020-05-19] MEDS: Nystatin Powder 15gm Bottle 1 APPLIC TOPICAL ×2 (05:43→17:45)
[2020-05-19] MEDS: Furosemide 40 MG Tablet PO (05:43)
[2020-05-19] MEDS: Lisinopril 2.5 MG Tablet PO (05:43)
[2020-05-19] MEDS: Famotidine 20 MG Tablet PO ×2 (05:43→17:46)
[2020-05-19] MEDS: Paroxetine 20 MG Tablet 30 MG PO (05:43)
[2020-05-19] MEDS: Senna/Docusate Sodium 1 Tablet 2 TABLET PO ×2 (05:43→17:46)
[2020-05-19] MEDS: buPROPion (SR) 150 MG Tablet.SA PO (05:47)
[2020-05-19] MEDS: oxyCODONE 5 MG Tablet PO ×3 (08:08→19:41)
[2020-05-19] MEDS: Calcium Carb/Vitamin D 1 TABLET Tablet PO ×2 (08:09→17:44)
[2020-05-19] MEDS: Iron Polysaccharide Complex 150 MG CAPSULE PO (08:09)
[2020-05-19] MEDS: Carvedilol 25 MG Tablet PO (08:09)
--- NOTE | 2020-05-19 08:43 | CASEMGMT ---
Social Work BIMS and PHQ-9 completed for MDS assessment. Pt reported to depressive symptoms. Pt states her antidepressants were just increased, and had been going to grief counseling at [facility]. Pt agreeable to SW scheduling appt at pt DC to restart. Provided emotional and verbal support. Will continue to follow. Najma Strickland, FIBER PICKER HOSPICE CASE MANAGER
[2020-05-19 10:00] VITALS: PULSE 71; RESP 16; O2SAT 94
[2020-05-19 13:01] VITALS: BP 88/49; PULSE 91; RESP 16; TEMP 35.9; O2SAT 94
[2020-05-19 13:55] VITALS: BP 109/38
[2020-05-19 14:00] VITALS: BP 79/34; PULSE 114
--- NOTE | 2020-05-19 15:06 | PT ---
This SLOT FLOORMAN was working with pt for therapy. Pt was CGA to maintain static standing balance but c/o dizziness with standing and feeling light headed. Pt's BP in sitting was 109/38 and when standing was 79/37. Reported to RN. Pt also stated she was having dizziness at home prior to admitting to the hospital. She stated dizziness would keep her in bed and contributed to several falls at home.
--- NOTE | 2020-05-19 15:42 | CHAPLAIN ---
Type of Pastoral Visit ___ Initial Visit _x__ Follow-up Visit ___ On-call Visit ___ General Patient Visit ___ Spiritual Assessment ___ Family Conference ___ Bereavement ___ Rapid Response ___ Code Blue ___ Other (describe below) Pastoral Care Referral From _x__ Patient ___ Family ___ Nurse ___ Physician ___ Sign Builder Supervisor ___ Home Health Care Coordinator ___ Other (describe below) Sacrament/Intervention _x__ Active listening ___ Anointing ___ Sabianist ___ Bereavement ___ Communion ___ Shivani exploration ___ _x__ Life review _x__ Prayer ___ Reconciliation ___ Sacrament of Sick _x__ Supportive presence ___ Wedding ___ Other (describe below) Pastoral Comments
--- NOTE | 2020-05-19 16:49 | NURSING ---
Addendum entered by Gali Chambers 05/19/20 18:59: Dr. Espinal ordered fluid bolus. Original Note: Therapy in room working with pt. took BP sitting was 109/38 standing 79/37 HR 114. Pt stated she felt dizzy when standing. Will update Dr. Espinal.
[2020-05-19] MEDS: 0.9% Normal Saline 1,000 ML 999 ML IV (18:23)
[2020-05-19] MEDS: 0.9% Saline Lock 10 ML Syringe IV (18:24)
[2020-05-19] MEDS: MELATONIN 10 MG TABLET PO (19:50)
--- NOTE | 2020-05-19 20:01 | NURSING ---
Bolus finished, pt transfered to bed, med for pain, denies dizziness with transfer, bp 117/30
--- NOTE | 2020-05-19 22:36 | NURSING ---
Message left with Dr that pt takes Viviscal twice day for hair,
[2020-05-20] MEDS: busPIRone 5 MG Tablet PO ×2 (04:13→20:59)
[2020-05-20 04:16] VITALS: BP 106/52; PULSE 75; RESP 16; TEMP 36.8
[2020-05-20] MEDS: Lisinopril 2.5 MG Tablet PO (05:55)
[2020-05-20] MEDS: buPROPion (SR) 150 MG Tablet.SA PO (05:55)
[2020-05-20] MEDS: Acetaminophen 500 MG Tablet 1000 MG PO ×3 (05:55→20:59)
[2020-05-20] MEDS: Famotidine 20 MG Tablet PO ×2 (05:55→18:14)
[2020-05-20] MEDS: Senna/Docusate Sodium 1 Tablet 2 TABLET PO (05:55)
[2020-05-20] MEDS: Furosemide 40 MG Tablet PO (05:56)
[2020-05-20] MEDS: Paroxetine 20 MG Tablet 30 MG PO (05:56)
[2020-05-20] MEDS: 0.9% Saline Lock 10 ML Syringe IV (05:57)
[2020-05-20] MEDS: Nystatin Powder 15gm Bottle 1 APPLIC TOPICAL ×2 (06:00→18:15)
[2020-05-20 06:07] LABS: Absolute Lymphocyte Count 2.09 X10^3/uL (0.83-4.51); Absolute Neutrophil Count 3.7 X10^3/uL (2.0-7.7); Basophil# 0.06 X10^3/uL; Basophil% 0.9 % (0-1); Eosinophil# 0.17 X10^3/uL; Eosinophils% 2.6 % (0-5); Hematocrit 30.9 % (37-47); Hemoglobin 9.4 g/dL (12.0-15.0); Lymphocyte # 2.09 X10^3/ul (4.0); Lymphocyte % 31.5 % (19-41); Mean Corp Hgb Conc 30.4 g/dL (32-36); Mean Corpuscular Hgb 28.1 pg (27.0-32.0); Mean Corpuscular Volume 92.2 fL (81-99); Mean Platelet Vol. 9.1 fl (6.2-12.0); Monocyte# 0.58 X10^3/uL; Monocyte% 8.7 % (0-10); NRBC Flagged by Analyzer 0 % (0-5); Neutrophil # 3.67 X10^3/uL (2.7-7.7); Neutrophil % 55.2 % (47-70); Platelet Count 358 K/mm3 (150-450); RBC Distribution Width CV 14.6 % (11.6-14.6); RBC Distribution Width SD 49.7 fl (35.1-43.9); Red Blood Count 3.35 M/mm3 (4.2-5.4); White Blood Count 6.6 K/mm3 (4.4-11.0)
[2020-05-20 06:33] LABS: Anion Gap 0 (5-15); BUN 36 mg/dL (7-18); BUN/Creat Ratio 42.2 RATIO (10-20); Calcium,Total 9.2 mg/dL (8.5-10.1); Chloride 109 mmol/L (98-107); Creatinine, Serum 0.85 mg/dL (0.55-1.02); EST Glomerular Filtration Rate 70 mL/min (>60); Est Glom Filt Rate - Afr Amer 84 mL/min (>60); Estimated Creatinine Clearance 81.41 ml/min; Glucose 90 mg/dL (74-106); Potassium 4.3 mmol/L (3.5-5.1); Sodium Level 141 mmol/L (136-145)
[2020-05-20] MEDS: Calcium Carb/Vitamin D 1 TABLET Tablet PO ×2 (08:47→18:14)
[2020-05-20] MEDS: Iron Polysaccharide Complex 150 MG CAPSULE PO (08:47)
[2020-05-20] MEDS: Carvedilol 25 MG Tablet PO ×2 (08:47→18:15)
[2020-05-20] MEDS: oxyCODONE 5 MG Tablet PO ×2 (08:48→20:58)
[2020-05-20] MEDS: Tuberculin,Purif.prot.deriv. 50 TU/ML Vial 5 ML ID (10:46)
[2020-05-20 16:00] VITALS: BP 118/62; PULSE 89; RESP 18; TEMP 36.7; O2SAT 96
[2020-05-20] MEDS: Menthol/Lanolin/Calamine/Znox 113 GM Tube 1 APPLIC TOPICAL (18:15)
[2020-05-20] MEDS: MELATONIN 10 MG TABLET PO (21:03)
[2020-05-21] MEDS: Famotidine 20 MG Tablet PO ×2 (06:57→18:00)
[2020-05-21] MEDS: Acetaminophen 500 MG Tablet 1000 MG PO ×3 (06:57→21:13)
[2020-05-21] MEDS: buPROPion (SR) 150 MG Tablet.SA PO (06:57)
[2020-05-21] MEDS: Lisinopril 2.5 MG Tablet PO (06:57)
[2020-05-21] MEDS: Paroxetine 20 MG Tablet 30 MG PO (06:58)
[2020-05-21] MEDS: Iron Polysaccharide Complex 150 MG CAPSULE PO (07:00)
[2020-05-21] MEDS: busPIRone 5 MG Tablet PO ×2 (07:02→21:17)
[2020-05-21] MEDS: Nystatin Powder 15gm Bottle 1 APPLIC TOPICAL ×2 (07:03→19:00)
[2020-05-21 07:08] VITALS: BP 101/30; PULSE 69; RESP 16; TEMP 37.3; O2SAT 95
[2020-05-21] MEDS: Calcium Carb/Vitamin D 1 TABLET Tablet PO ×2 (07:08→16:21)
[2020-05-21] MEDS: Menthol/Lanolin/Calamine/Znox 113 GM Tube 1 APPLIC TOPICAL ×2 (07:17→18:00)
--- NOTE | 2020-05-21 09:51 | CASEMGMT ---
Social Work IDT met with patient and sister via conference call for care plan meeting. Discussed patient's progress in therapy. Pt is modA for bed mobility, [place] for sit to stands, max x2 for SPT with FWW. Pt complaints of dizziness with standing and transfers, and having orthostatic BPs. Pt completes modified toilet transfers at modA, dependent for clothing/pericare, set up while seated for UE ADLs, dependent for LE ADLs. Pt is on a cardiac diet, good intake. Pt is out of room isolation 05/25, has f/u appt with Dr. Arevalo 05/29. Explained Medicare benefit. Pt's goal is to return home to split level house with ex-. Pt reports having stair lift between levels. Pt is tearful during meeting, stating she is overwhelmed. started her on antianxiety med, which will take some time to take affect. Provided emotional support. Inquired about coping mechanisms when feeling overwhelmed - suggested word search, crossword, reading a book - a peaceful distraction. Pt agreed to word search. Pt appreciative of care thus far during stay. No other issues noted. Will continue to follow. Najma Strickland, BUSINESS AND SERVICES INSTRUCTOR DENTAL HYGIENE PROFESSOR
[2020-05-21] MEDS: oxyCODONE 5 MG Tablet PO ×2 (10:59→21:15)
[2020-05-21 11:04] VITALS: PULSE 82; RESP 16; O2SAT 93
--- NOTE | 2020-05-21 12:06 | PT ---
Pt's BP in sitting was 121/63 and when standing was 111/56. Reported to RN.
[2020-05-21 17:50] VITALS: BP 122/64; PULSE 90; RESP 16; TEMP 36.8; O2SAT 95
[2020-05-21] MEDS: Carvedilol 25 MG Tablet PO (17:59)
[2020-05-21] MEDS: Senna/Docusate Sodium 1 Tablet 2 TABLET PO (17:59)
[2020-05-21] MEDS: Carvedilol 12.5 MG Tablet PO (19:00)
--- NOTE | 2020-05-21 19:01 | NURSING ---
Dr. Espinal gave order to decrease Coreg to 12.5mg. Patient given 12.5 mg when due.
[2020-05-21] MEDS: MELATONIN 10 MG TABLET PO (21:13)
[2020-05-22 05:19] VITALS: BP 127/53; PULSE 76; RESP 16; TEMP 36.7; O2SAT 96
[2020-05-22] MEDS: Paroxetine 20 MG Tablet 30 MG PO (05:21)
[2020-05-22] MEDS: Lisinopril 2.5 MG Tablet PO (05:21)
[2020-05-22] MEDS: buPROPion (SR) 150 MG Tablet.SA PO (05:21)
[2020-05-22] MEDS: Furosemide 40 MG Tablet PO (05:21)
[2020-05-22] MEDS: Carvedilol 12.5 MG Tablet PO ×2 (05:21→16:56)
[2020-05-22] MEDS: Acetaminophen 500 MG Tablet 1000 MG PO ×3 (05:21→19:59)
[2020-05-22] MEDS: Famotidine 20 MG Tablet PO ×2 (05:21→16:55)
[2020-05-22] MEDS: Senna/Docusate Sodium 1 Tablet 2 TABLET PO (05:22)
[2020-05-22] MEDS: Menthol/Lanolin/Calamine/Znox 113 GM Tube 1 APPLIC TOPICAL ×2 (05:24→16:56)
[2020-05-22] MEDS: Nystatin Powder 15gm Bottle 1 APPLIC TOPICAL ×2 (05:24→16:57)
--- NOTE | 2020-05-22 06:49 | NURSING ---
[place] removed per order. Proximal incision red at the top, area marked with skin marker, steri strips placed and abd dressing applied.
[2020-05-22] MEDS: Calcium Carb/Vitamin D 1 TABLET Tablet PO ×2 (08:09→16:55)
[2020-05-22] MEDS: Iron Polysaccharide Complex 150 MG CAPSULE PO (08:09)
--- NOTE | 2020-05-22 08:21 | MDS.RN ---
Information for the mds was obtained from review of the clinical record, interview of resident, staff, and direct observation of resident's care.
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
[2020-05-22] MEDS: oxyCODONE 5 MG Tablet PO ×2 (12:24→19:58)
[2020-05-22 13:18] VITALS: BP 133/68; PULSE 75; RESP 16; TEMP 36.6; O2SAT 93
[2020-05-22] MEDS: 0.9% Saline Lock 10 ML Syringe IV (18:20)
--- NOTE | 2020-05-22 19:21 | PCA ---
patient refused PM care. stated that they are too tired and that therapy will be washing her up in the morning.
[2020-05-22] MEDS: MELATONIN 10 MG TABLET PO (20:00)
[2020-05-22] MEDS: busPIRone 5 MG Tablet PO (20:01)
[2020-05-22] MEDS: FLUCONAZOLE 150 MG TABLET PO (21:38)
[2020-05-23 05:27] VITALS: BP 136/72; PULSE 78; RESP 16; TEMP 37.3; O2SAT 94
[2020-05-23] MEDS: 0.9% Saline Lock 10 ML Syringe IV ×2 (05:28→18:50)
[2020-05-23] MEDS: Acetaminophen 500 MG Tablet 1000 MG PO ×3 (05:29→21:25)
[2020-05-23] MEDS: Famotidine 20 MG Tablet PO ×2 (05:29→17:34)
[2020-05-23] MEDS: Lisinopril 2.5 MG Tablet PO (05:29)
[2020-05-23] MEDS: Nystatin Powder 15gm Bottle 1 APPLIC TOPICAL ×2 (05:30→17:34)
[2020-05-23] MEDS: Paroxetine 20 MG Tablet 30 MG PO (05:30)
[2020-05-23] MEDS: buPROPion (SR) 150 MG Tablet.SA PO (05:30)
[2020-05-23] MEDS: Menthol/Lanolin/Calamine/Znox 113 GM Tube 1 APPLIC TOPICAL ×2 (05:30→17:33)
[2020-05-23] MEDS: Carvedilol 12.5 MG Tablet PO ×2 (05:30→17:34)
[2020-05-23] MEDS: Iron Polysaccharide Complex 150 MG CAPSULE PO (07:38)
[2020-05-23] MEDS: Calcium Carb/Vitamin D 1 TABLET Tablet PO ×2 (07:38→17:33)
[2020-05-23] MEDS: oxyCODONE 5 MG Tablet PO ×3 (09:03→18:53)
[2020-05-23 09:21] VITALS: PULSE 93; RESP 18; O2SAT 99
--- NOTE | 2020-05-23 10:20 | NURSING ---
pt reports periarea itching much better since dr ordered flucanazole tab.
[2020-05-23 13:45] VITALS: BP 100/65; PULSE 68; RESP 17; TEMP 36.4; O2SAT 96
[2020-05-23] MEDS: Furosemide 40 MG Tablet PO (14:06)
--- NOTE | 2020-05-23 14:07 | ED.RN ---
PT wanted to wait till after therapy was done to take Lasix. She did not want to have to pee the whole time during therapy.
--- NOTE | 2020-05-23 14:09 | NURSING ---
Pt did not want to take her Lasix until after therapy was completed for the day. She did not want to have to go to the bathroom during her therapy sessions.
--- NOTE | 2020-05-23 16:08 | NURSING ---
Resident notified of staff testing positive for COVID, left a message for sister, Yajaira.
[2020-05-23] MEDS: Senna/Docusate Sodium 1 Tablet 2 TABLET PO (17:34)
[2020-05-23] MEDS: busPIRone 5 MG Tablet PO (21:27)
[2020-05-23] MEDS: MELATONIN 10 MG TABLET PO (21:27)
[2020-05-24] MEDS: buPROPion (SR) 150 MG Tablet.SA PO (04:36)
[2020-05-24] MEDS: Lisinopril 2.5 MG Tablet PO (04:36)
[2020-05-24] MEDS: Acetaminophen 500 MG Tablet 1000 MG PO ×3 (04:36→20:35)
[2020-05-24] MEDS: Famotidine 20 MG Tablet PO ×2 (04:36→16:46)
[2020-05-24] MEDS: Carvedilol 12.5 MG Tablet PO ×2 (04:36→16:46)
[2020-05-24] MEDS: Paroxetine 20 MG Tablet 30 MG PO (04:37)
[2020-05-24] MEDS: Furosemide 40 MG Tablet PO (04:37)
[2020-05-24] MEDS: Senna/Docusate Sodium 1 Tablet 2 TABLET PO ×2 (04:39→16:46)
[2020-05-24] MEDS: Menthol/Lanolin/Calamine/Znox 113 GM Tube 1 APPLIC TOPICAL ×2 (04:40→16:46)
[2020-05-24] MEDS: Nystatin Powder 15gm Bottle 1 APPLIC TOPICAL ×2 (04:40→16:47)
[2020-05-24] MEDS: Calcium Carb/Vitamin D 1 TABLET Tablet PO ×2 (08:22→16:46)
[2020-05-24] MEDS: Iron Polysaccharide Complex 150 MG CAPSULE PO (08:22)
[2020-05-24] MEDS: oxyCODONE 5 MG Tablet PO ×2 (12:43→19:29)
[2020-05-24 12:46] VITALS: PULSE 90; RESP 18; O2SAT 92
[2020-05-24 16:28] VITALS: BP 108/60; PULSE 90; RESP 18; TEMP 36.9; O2SAT 92
[2020-05-24] MEDS: busPIRone 5 MG Tablet PO (16:46)
[2020-05-24] MEDS: MELATONIN 10 MG TABLET PO (20:35)
[2020-05-25 04:00] VITALS: BP 115/47; PULSE 78; RESP 16; TEMP 36.6; O2SAT 94
[2020-05-25] MEDS: Paroxetine 20 MG Tablet 30 MG PO (05:21)
[2020-05-25] MEDS: Acetaminophen 500 MG Tablet 1000 MG PO ×3 (05:21→21:02)
[2020-05-25] MEDS: Lisinopril 2.5 MG Tablet PO (05:23)
[2020-05-25] MEDS: Senna/Docusate Sodium 1 Tablet 2 TABLET PO ×2 (05:23→17:01)
[2020-05-25] MEDS: buPROPion (SR) 150 MG Tablet.SA PO (05:23)
[2020-05-25] MEDS: Famotidine 20 MG Tablet PO ×2 (05:24→17:02)
[2020-05-25] MEDS: Menthol/Lanolin/Calamine/Znox 113 GM Tube 1 APPLIC TOPICAL ×2 (05:27→17:00)
[2020-05-25] MEDS: Carvedilol 12.5 MG Tablet PO ×2 (05:27→16:57)
[2020-05-25] MEDS: Nystatin Powder 15gm Bottle 1 APPLIC TOPICAL ×2 (05:27→16:59)
[2020-05-25] MEDS: 0.9% Saline Lock 10 ML Syringe IV (05:28)
[2020-05-25] MEDS: Calcium Carb/Vitamin D 1 TABLET Tablet PO ×2 (08:16→16:58)
[2020-05-25] MEDS: Iron Polysaccharide Complex 150 MG CAPSULE PO (08:16)
[2020-05-25] MEDS: oxyCODONE 5 MG Tablet PO ×2 (12:44→21:02)
[2020-05-25 14:54] VITALS: BP 102/56; PULSE 90; RESP 22; TEMP 36.4; O2SAT 92
[2020-05-25] MEDS: Furosemide 40 MG Tablet PO (16:58)
[2020-05-25] MEDS: MELATONIN 10 MG TABLET PO (21:03)
[2020-05-26 04:00] VITALS: BP 104/51; PULSE 80; RESP 16; TEMP 36.7; O2SAT 92
[2020-05-26] MEDS: Paroxetine 20 MG Tablet 30 MG PO (05:40)
[2020-05-26] MEDS: Acetaminophen 500 MG Tablet 1000 MG PO ×3 (05:40→20:12)
[2020-05-26] MEDS: buPROPion (SR) 150 MG Tablet.SA PO (05:41)
[2020-05-26] MEDS: Menthol/Lanolin/Calamine/Znox 113 GM Tube 1 APPLIC TOPICAL ×2 (05:41→18:25)
[2020-05-26] MEDS: Lisinopril 2.5 MG Tablet PO (05:41)
[2020-05-26] MEDS: Nystatin Powder 15gm Bottle 1 APPLIC TOPICAL ×2 (05:41→17:29)
[2020-05-26] MEDS: Famotidine 20 MG Tablet PO ×2 (05:41→17:27)
[2020-05-26] MEDS: Carvedilol 12.5 MG Tablet PO ×2 (05:41→17:27)
[2020-05-26] MEDS: busPIRone 5 MG Tablet PO (05:45)
[2020-05-26] MEDS: 0.9% Saline Lock 10 ML Syringe IV ×2 (05:48→17:34)
[2020-05-26] MEDS: Calcium Carb/Vitamin D 1 TABLET Tablet PO ×2 (07:53→17:28)
[2020-05-26] MEDS: Iron Polysaccharide Complex 150 MG CAPSULE PO (07:53)
--- NOTE | 2020-05-26 08:06 | RAD_ITS ---
STUDY: X-RAY - RIGHT KNEE REASON FOR EXAM: Female, 70 years old. KNEE PAIN, HX OF RIGHT HIP FX TECHNIQUE: 4 view(s) of the knee. COMPARISON: Comparison is made with prior study dated 05/12/2020. FINDINGS: There is demineralization of the visualized distal femur. There is demineralization of the tibia and fibula. Healed fracture with deformity in the proximal shaft of the fibula. There is arthrosis of the proximal tibiofibular articulation. There is severe degenerative arthrosis of the medial femorotibial compartment with severe joint space narrowing. There is moderate degenerative arthrosis of the lateral femorotibial compartment with moderate joint space narrowing. There is severe degenerative arthrosis of the patellofemoral articulation. The soft tissue structures are unremarkable. RAD/Knee 4 or More Views IMPRESSION: Degenerative arthrosis. Electronically Signed: Greyson Pyle, at 9:32 EST , Service support ,
[2020-05-26] MEDS: oxyCODONE 5 MG Tablet PO ×2 (11:24→18:31)
[2020-05-26 14:05] VITALS: BP 110/58; PULSE 84; RESP 18; TEMP 36.7; O2SAT 93
[2020-05-26] MEDS: Furosemide 40 MG Tablet PO (17:28)
[2020-05-26] MEDS: MELATONIN 10 MG TABLET PO (20:13)
[2020-05-27 05:44] LABS: Absolute Lymphocyte Count 1.91 X10^3/uL (0.83-4.51); Absolute Neutrophil Count 3.9 X10^3/uL (2.0-7.7); Basophil# 0.05 X10^3/uL; Basophil% 0.8 % (0-1); Eosinophil# 0.13 X10^3/uL; Hematocrit 34.7 % (37-47); Hemoglobin 10.6 g/dL (12.0-15.0); Lymphocyte # 1.91 X10^3/ul (4.0); Lymphocyte % 29.2 % (19-41); Mean Corp Hgb Conc 30.5 g/dL (32-36); Mean Corpuscular Hgb 28.2 pg (27.0-32.0); Mean Corpuscular Volume 92.3 fL (81-99); Mean Platelet Vol. 9.2 fl (6.2-12.0); Monocyte# 0.51 X10^3/uL; Monocyte% 7.8 % (0-10); NRBC Flagged by Analyzer 0 % (0-5); Neutrophil % 59.7 % (47-70); Platelet Count 349 K/mm3 (150-450); RBC Distribution Width CV 14.6 % (11.6-14.6); Red Blood Count 3.76 M/mm3 (4.2-5.4); White Blood Count 6.5 K/mm3 (4.4-11.0)
[2020-05-27 05:53] VITALS: BP 110/67; PULSE 84; RESP 16; TEMP 36.8; O2SAT 96
[2020-05-27] MEDS: Nystatin Powder 15gm Bottle 1 APPLIC TOPICAL ×2 (05:54→17:06)
[2020-05-27] MEDS: Carvedilol 12.5 MG Tablet PO ×2 (05:55→17:02)
[2020-05-27] MEDS: buPROPion (SR) 150 MG Tablet.SA PO (05:55)
[2020-05-27] MEDS: Menthol/Lanolin/Calamine/Znox 113 GM Tube 1 APPLIC TOPICAL ×2 (05:55→17:06)
[2020-05-27] MEDS: Acetaminophen 500 MG Tablet 1000 MG PO ×3 (05:55→21:00)
[2020-05-27] MEDS: Senna/Docusate Sodium 1 Tablet 2 TABLET PO (05:56)
[2020-05-27] MEDS: Lisinopril 2.5 MG Tablet PO (05:56)
[2020-05-27] MEDS: Famotidine 20 MG Tablet PO ×2 (05:56→17:03)
[2020-05-27] MEDS: Paroxetine 20 MG Tablet 30 MG PO (05:56)
[2020-05-27 06:34] LABS: Anion Gap 3 (5-15); BUN 39 mg/dL (7-18); BUN/Creat Ratio 40.1 RATIO (10-20); Chloride 101 mmol/L (98-107); Creatinine, Serum 0.97 mg/dL (0.55-1.02); EST Glomerular Filtration Rate 60 mL/min (>60); Est Glom Filt Rate - Afr Amer 72 mL/min (>60); Estimated Creatinine Clearance 69.14 ml/min; Glucose 93 mg/dL (74-106); Potassium 4.5 mmol/L (3.5-5.1); Sodium Level 136 mmol/L (136-145)
[2020-05-27] MEDS: Iron Polysaccharide Complex 150 MG CAPSULE PO (08:01)
[2020-05-27] MEDS: 0.9% Saline Lock 10 ML Syringe IV (08:01)
[2020-05-27] MEDS: Calcium Carb/Vitamin D 1 TABLET Tablet PO ×2 (08:01→17:02)
[2020-05-27] MEDS: oxyCODONE 5 MG Tablet PO ×2 (11:23→17:05)
[2020-05-27 13:40] VITALS: BP 100/50; PULSE 81; RESP 17; TEMP 36.6; O2SAT 98
--- NOTE | 2020-05-27 14:27 | CHAPLAIN ---
Type of Pastoral Visit ___ Initial Visit _x__ Follow-up Visit ___ On-call Visit ___ General Patient Visit ___ Spiritual Assessment ___ Family Conference ___ Bereavement ___ Rapid Response ___ Code Blue ___ Other (describe below) Pastoral Care Referral From _x__ Patient ___ Family ___ Nurse ___ Physician ___ Residential Sales Rep ___ Manager Of Development ___ Other (describe below) Sacrament/Intervention _x__ Active listening ___ Anointing ___ Quaker ___ Bereavement ___ Communion ___ Shivani exploration ___ _x__ Life review _x__ Prayer ___ Reconciliation ___ Sacrament of Sick _x__ Supportive presence ___ Wedding ___ Other (describe below) Pastoral Comments
[2020-05-27] MEDS: Furosemide 40 MG Tablet PO (17:02)
[2020-05-27] MEDS: MELATONIN 10 MG TABLET PO (21:00)
[2020-05-28 05:03] VITALS: BP 117/59; PULSE 81; RESP 18; TEMP 36.3; O2SAT 95
[2020-05-28] MEDS: Acetaminophen 500 MG Tablet 1000 MG PO ×3 (05:05→19:53)
[2020-05-28] MEDS: Paroxetine 20 MG Tablet 30 MG PO (05:05)
[2020-05-28] MEDS: Lisinopril 2.5 MG Tablet PO (05:06)
[2020-05-28] MEDS: Carvedilol 12.5 MG Tablet PO ×2 (05:06→17:45)
[2020-05-28] MEDS: Famotidine 20 MG Tablet PO ×2 (05:06→17:45)
[2020-05-28] MEDS: buPROPion (SR) 150 MG Tablet.SA PO (05:06)
[2020-05-28] MEDS: Nystatin Powder 15gm Bottle 1 APPLIC TOPICAL ×2 (05:07→17:46)
[2020-05-28] MEDS: Menthol/Lanolin/Calamine/Znox 113 GM Tube 1 APPLIC TOPICAL ×2 (05:10→17:45)
[2020-05-28] MEDS: Calcium Carb/Vitamin D 1 TABLET Tablet PO ×2 (08:57→17:04)
[2020-05-28] MEDS: Iron Polysaccharide Complex 150 MG CAPSULE PO (08:57)
[2020-05-28 10:00] VITALS: PULSE 76
[2020-05-28] MEDS: oxyCODONE 5 MG Tablet PO ×2 (11:43→17:05)
[2020-05-28 13:56] VITALS: BP 92/43
[2020-05-28 15:11] VITALS: BP 110/52; PULSE 64; RESP 18; TEMP 36.9; O2SAT 96
[2020-05-28] MEDS: Furosemide 40 MG Tablet PO (17:05)
[2020-05-28] MEDS: MELATONIN 10 MG TABLET PO (19:53)
[2020-05-29 04:43] VITALS: BP 112/55; PULSE 77; RESP 18; TEMP 36.2; O2SAT 95
[2020-05-29] MEDS: oxyCODONE 5 MG Tablet PO ×3 (04:45→19:57)
[2020-05-29] MEDS: Paroxetine 20 MG Tablet 30 MG PO (04:45)
[2020-05-29] MEDS: Lisinopril 2.5 MG Tablet PO (04:46)
[2020-05-29] MEDS: Acetaminophen 500 MG Tablet 1000 MG PO ×3 (04:46→19:57)
[2020-05-29] MEDS: buPROPion (SR) 150 MG Tablet.SA PO (04:46)
[2020-05-29] MEDS: Famotidine 20 MG Tablet PO ×2 (04:46→17:06)
[2020-05-29] MEDS: Carvedilol 12.5 MG Tablet PO ×2 (04:46→17:07)
[2020-05-29] MEDS: Nystatin Powder 15gm Bottle 1 APPLIC TOPICAL ×2 (04:47→17:07)
[2020-05-29] MEDS: Menthol/Lanolin/Calamine/Znox 113 GM Tube 1 APPLIC TOPICAL ×2 (04:48→17:07)
[2020-05-29] MEDS: Calcium Carb/Vitamin D 1 TABLET Tablet PO ×2 (07:56→17:06)
[2020-05-29] MEDS: Iron Polysaccharide Complex 150 MG CAPSULE PO (07:56)
--- NOTE | 2020-05-29 09:19 | NURSING ---
Pt left with transport @[address] Holland.
--- NOTE | 2020-05-29 11:53 | NURSING ---
pt returned from Dr. perales. pt is now toe touch WB status on right leg with walker. Can have ROM with physical therapy fo the hip and knee. Follow up in 4 weeks.
[2020-05-29] MEDS: 0.9% Saline Lock 10 ML Syringe IV ×2 (12:00→14:22)
[2020-05-29 12:39] VITALS: BP 90/49; PULSE 84; RESP 18; TEMP 36.3; O2SAT 99
[2020-05-29 14:26] VITALS: PULSE 66; RESP 18; O2SAT 97
--- NOTE | 2020-05-29 14:34 | NURSING ---
Pt refused me to call and update family. Sister went with her to appt. today and she talked to her .
--- NOTE | 2020-05-29 15:21 | CASEMGMT ---
Social Work Met with patient after return from [facility]. Pt tearful about WBS and not healing. Provided emotional support. Discussed pt's options for the next 4 weeks. Explained Medicare days - currently on day 17, plus 30 days of TTWB and limited therapy, therefore, remaining days would be to hopefully get increased WBS and home at [facility], then have a 60 day break in service for new 100 day benefit. Explained pt could go to a SNF, but private pay for LETI. Pt stated she knows she will not qualify for LETI and she is not liquidating her assets. Pt stated she could go home if she had to but getting assistance would not be consistent. Pt would like to remain in TCU using [facility] days until she is able to safely DC home. SW understands and will continue to monitor progress and needs. Will continue to follow. Najma Strickland, BANQUET LEAD CEMENTER
[2020-05-29 17:06] VITALS: BP 102/62; PULSE 79
[2020-05-29] MEDS: Furosemide 40 MG Tablet PO (17:06)
[2020-05-29] MEDS: MELATONIN 10 MG TABLET PO (19:58)
[2020-05-30 04:40] VITALS: BP 87/49
[2020-05-30 04:41] VITALS: BP 99/52; PULSE 82; RESP 18; TEMP 36.5; O2SAT 95
[2020-05-30] MEDS: Senna/Docusate Sodium 1 Tablet 2 TABLET PO (04:43)
[2020-05-30] MEDS: buPROPion (SR) 150 MG Tablet.SA PO (04:44)
[2020-05-30] MEDS: Acetaminophen 500 MG Tablet 1000 MG PO ×3 (04:44→20:10)
[2020-05-30] MEDS: oxyCODONE 5 MG Tablet PO ×2 (04:44→15:54)
[2020-05-30] MEDS: Paroxetine 20 MG Tablet 30 MG PO (04:45)
[2020-05-30] MEDS: Menthol/Lanolin/Calamine/Znox 113 GM Tube 1 APPLIC TOPICAL ×2 (04:46→17:07)
[2020-05-30] MEDS: Nystatin Powder 15gm Bottle 1 APPLIC TOPICAL ×2 (04:46→17:08)
[2020-05-30] MEDS: Famotidine 20 MG Tablet PO ×2 (04:47→17:06)
[2020-05-30] MEDS: 0.9% Saline Lock 10 ML Syringe IV ×2 (04:56→13:15)
[2020-05-30] MEDS: Iron Polysaccharide Complex 150 MG CAPSULE PO (07:43)
[2020-05-30] MEDS: Calcium Carb/Vitamin D 1 TABLET Tablet PO ×2 (07:43→17:06)
[2020-05-30 13:37] VITALS: BP 107/40; PULSE 92; RESP 20; TEMP 35.9; O2SAT 95
[2020-05-30] MEDS: Furosemide 40 MG Tablet PO (17:06)
[2020-05-30] MEDS: MELATONIN 10 MG TABLET PO (20:10)
[2020-05-31] MEDS: oxyCODONE 5 MG Tablet PO ×3 (02:38→20:32)
[2020-05-31 05:11] VITALS: BP 100/61; PULSE 87; RESP 18; TEMP 36.8; O2SAT 93
[2020-05-31] MEDS: Acetaminophen 500 MG Tablet 1000 MG PO ×3 (05:13→20:33)
[2020-05-31] MEDS: Paroxetine 20 MG Tablet 30 MG PO (05:14)
[2020-05-31] MEDS: Menthol/Lanolin/Calamine/Znox 113 GM Tube 1 APPLIC TOPICAL ×2 (05:15→17:18)
[2020-05-31] MEDS: buPROPion (SR) 150 MG Tablet.SA PO (05:15)
[2020-05-31] MEDS: Nystatin Powder 15gm Bottle 1 APPLIC TOPICAL ×2 (05:15→17:20)
[2020-05-31] MEDS: Famotidine 20 MG Tablet PO ×2 (05:15→17:18)
[2020-05-31] MEDS: Iron Polysaccharide Complex 150 MG CAPSULE PO (08:17)
[2020-05-31] MEDS: Calcium Carb/Vitamin D 1 TABLET Tablet PO ×2 (08:17→17:18)
--- NOTE | 2020-05-31 13:59 | NURSING ---
pt declined updating family, she takes care of it herself
[2020-05-31 14:01] VITALS: RESP 18
[2020-05-31 14:22] VITALS: BP 112/50; PULSE 93; RESP 20; TEMP 36; O2SAT 93
[2020-05-31] MEDS: Senna/Docusate Sodium 1 Tablet 2 TABLET PO (17:18)
[2020-05-31] MEDS: Carvedilol 12.5 MG Tablet PO (17:18)
[2020-05-31] MEDS: Furosemide 40 MG Tablet PO (17:18)
[2020-05-31] MEDS: 0.9% Saline Lock 10 ML Syringe IV (17:18)
[2020-05-31] MEDS: MELATONIN 10 MG TABLET PO (20:34)
[2020-06-01 05:28] VITALS: BP 128/78; PULSE 77; RESP 14; TEMP 36.8; O2SAT 96
[2020-06-01] MEDS: Paroxetine 20 MG Tablet 30 MG PO (05:32)
[2020-06-01] MEDS: Famotidine 20 MG Tablet PO ×2 (05:32→16:44)
[2020-06-01] MEDS: Acetaminophen 500 MG Tablet 1000 MG PO ×3 (05:32→19:32)
[2020-06-01] MEDS: Menthol/Lanolin/Calamine/Znox 113 GM Tube 1 APPLIC TOPICAL ×2 (05:32→16:45)
[2020-06-01] MEDS: Carvedilol 12.5 MG Tablet PO ×2 (05:33→16:44)
[2020-06-01] MEDS: Nystatin Powder 15gm Bottle 1 APPLIC TOPICAL ×2 (05:33→16:45)
[2020-06-01] MEDS: buPROPion (SR) 150 MG Tablet.SA PO (05:33)
[2020-06-01] MEDS: Iron Polysaccharide Complex 150 MG CAPSULE PO (07:53)
[2020-06-01] MEDS: Calcium Carb/Vitamin D 1 TABLET Tablet PO ×2 (07:54→16:44)
[2020-06-01] MEDS: 0.9% Saline Lock 10 ML Syringe IV (12:25)
[2020-06-01] MEDS: oxyCODONE 5 MG Tablet PO ×2 (12:25→19:31)
[2020-06-01 14:17] VITALS: BP 103/55; PULSE 68; RESP 18; TEMP 36.7; O2SAT 93
[2020-06-01] MEDS: Furosemide 40 MG Tablet PO (16:44)
[2020-06-01] MEDS: MELATONIN 10 MG TABLET PO (19:32)
[2020-06-02 05:17] VITALS: BP 112/71; PULSE 77; RESP 16; TEMP 36.8; O2SAT 98
[2020-06-02] MEDS: Nystatin Powder 15gm Bottle 1 APPLIC TOPICAL ×2 (05:22→14:33)
[2020-06-02] MEDS: Menthol/Lanolin/Calamine/Znox 113 GM Tube 1 APPLIC TOPICAL ×2 (05:22→14:33)
[2020-06-02] MEDS: Acetaminophen 500 MG Tablet 1000 MG PO ×3 (05:22→20:29)
[2020-06-02] MEDS: Senna/Docusate Sodium 1 Tablet 2 TABLET PO (05:23)
[2020-06-02] MEDS: Carvedilol 12.5 MG Tablet PO ×2 (05:23→17:07)
[2020-06-02] MEDS: buPROPion (SR) 150 MG Tablet.SA PO (05:23)
[2020-06-02] MEDS: Famotidine 20 MG Tablet PO ×2 (05:23→17:07)
[2020-06-02] MEDS: Paroxetine 20 MG Tablet 30 MG PO (05:23)
[2020-06-02] MEDS: Iron Polysaccharide Complex 150 MG CAPSULE PO (07:56)
[2020-06-02] MEDS: Calcium Carb/Vitamin D 1 TABLET Tablet PO ×2 (07:56→17:06)
[2020-06-02] MEDS: oxyCODONE 5 MG Tablet PO ×2 (12:32→20:29)
[2020-06-02 13:49] VITALS: BP 120/68; PULSE 85; RESP 18; TEMP 36.2; O2SAT 94
--- NOTE | 2020-06-02 14:20 | NURSING ---
Resident requesting her Lasix to be given after supper so she does not pee herself during supper.
[2020-06-02] MEDS: 0.9% Saline Lock 10 ML Syringe IV (17:09)
[2020-06-02] MEDS: Furosemide 40 MG Tablet PO (20:30)
[2020-06-02] MEDS: MELATONIN 10 MG TABLET PO (20:30)
[2020-06-03] MEDS: oxyCODONE 5 MG Tablet PO ×2 (01:56→17:57)
[2020-06-03 05:26] VITALS: BP 113/51; PULSE 77; RESP 17; TEMP 36; O2SAT 96
[2020-06-03] MEDS: Famotidine 20 MG Tablet PO ×2 (05:27→18:05)
[2020-06-03] MEDS: Acetaminophen 500 MG Tablet 1000 MG PO ×3 (05:27→19:49)
[2020-06-03] MEDS: Senna/Docusate Sodium 1 Tablet 2 TABLET PO (05:27)
[2020-06-03] MEDS: Paroxetine 20 MG Tablet 30 MG PO (05:28)
[2020-06-03] MEDS: buPROPion (SR) 150 MG Tablet.SA PO (05:28)
[2020-06-03] MEDS: Carvedilol 12.5 MG Tablet PO ×2 (05:28→18:05)
[2020-06-03] MEDS: Nystatin Powder 15gm Bottle 1 APPLIC TOPICAL ×2 (05:30→18:06)
[2020-06-03] MEDS: Menthol/Lanolin/Calamine/Znox 113 GM Tube 1 APPLIC TOPICAL ×2 (05:31→18:06)
[2020-06-03] MEDS: Iron Polysaccharide Complex 150 MG CAPSULE PO (07:43)
[2020-06-03] MEDS: Calcium Carb/Vitamin D 1 TABLET Tablet PO ×2 (07:43→18:05)
[2020-06-03 08:16] LABS: Absolute Lymphocyte Count 1.78 X10^3/uL (0.83-4.51); Absolute Neutrophil Count 3.3 X10^3/uL (2.0-7.7); Basophil# 0.03 X10^3/uL; Basophil% 0.5 % (0-1); Eosinophil# 0.12 X10^3/uL; Eosinophils% 2.1 % (0-5); Hematocrit 36.3 % (37-47); Hemoglobin 11.2 g/dL (12.0-15.0); Lymphocyte # 1.78 X10^3/ul (4.0); Lymphocyte % 31.5 % (19-41); Mean Corp Hgb Conc 30.9 g/dL (32-36); Mean Corpuscular Volume 90.8 fL (81-99); Mean Platelet Vol. 9.5 fl (6.2-12.0); Monocyte# 0.45 X10^3/uL; NRBC Flagged by Analyzer 0 % (0-5); Neutrophil # 3.26 X10^3/uL (2.7-7.7); Neutrophil % 57.7 % (47-70); Platelet Count 270 K/mm3 (150-450); RBC Distribution Width SD 46.5 fl (35.1-43.9); White Blood Count 5.7 K/mm3 (4.4-11.0)
[2020-06-03 08:34] LABS: Anion Gap 3 (5-15); BUN 38 mg/dL (7-18); BUN/Creat Ratio 38.5 RATIO (10-20); Calcium,Total 9.4 mg/dL (8.5-10.1); Chloride 105 mmol/L (98-107); Creatinine, Serum 0.99 mg/dL (0.55-1.02); EST Glomerular Filtration Rate 59 mL/min (>60); Est Glom Filt Rate - Afr Amer 71 mL/min (>60); Estimated Creatinine Clearance 65.68 ml/min; Glucose 89 mg/dL (74-106); Potassium 4.1 mmol/L (3.5-5.1); Sodium Level 142 mmol/L (136-145)
[2020-06-03 14:01] VITALS: BP 117/56; PULSE 75; RESP 16; TEMP 36.8; O2SAT 97
--- NOTE | 2020-06-03 16:36 | NURSING ---
Resident and family notified of staff member testing positive for COVID.
--- NOTE | 2020-06-03 16:38 | CHAPLAIN ---
Type of Pastoral Visit ___ Initial Visit _x__ Follow-up Visit ___ On-call Visit ___ General Patient Visit ___ Spiritual Assessment ___ Family Conference ___ Bereavement ___ Rapid Response ___ Code Blue ___ Other (describe below) Pastoral Care Referral From _x__ Patient ___ Family ___ Nurse ___ Physician ___ Sleeve Machine Tender ___ Observation Nurse ___ Other (describe below) Sacrament/Intervention _x__ Active listening ___ Anointing ___ Adventism ___ Bereavement ___ Communion ___ Shivani exploration ___ ___ Life review ___ Prayer ___ Reconciliation ___ Sacrament of Sick ___ Supportive presence ___ Wedding ___ Other (describe below) Pastoral Comments brief greeting with the patient to check on her
[2020-06-03] MEDS: Furosemide 40 MG Tablet PO (19:50)
[2020-06-03] MEDS: MELATONIN 10 MG TABLET PO (19:50)
--- NOTE | 2020-06-04 04:45 | NURSING ---
C/O pain and itching to groin and abd folds, red, moist skin noted, tender to touch, cloths to folds applied and nystatin powder, tearful this trish about health, note left for dr concerning skin
[2020-06-04 05:19] VITALS: BP 114/60; PULSE 69; RESP 14; TEMP 36.4; O2SAT 97
[2020-06-04] MEDS: Acetaminophen 500 MG Tablet 1000 MG PO ×3 (05:21→20:31)
[2020-06-04] MEDS: Famotidine 20 MG Tablet PO ×2 (05:21→18:00)
[2020-06-04] MEDS: Carvedilol 12.5 MG Tablet PO ×2 (05:22→18:00)
[2020-06-04] MEDS: Nystatin Powder 15gm Bottle 1 APPLIC TOPICAL (05:22)
[2020-06-04] MEDS: Senna/Docusate Sodium 1 Tablet 2 TABLET PO (05:22)
[2020-06-04] MEDS: Paroxetine 20 MG Tablet 30 MG PO (05:22)
[2020-06-04] MEDS: buPROPion (SR) 150 MG Tablet.SA PO (05:22)
[2020-06-04] MEDS: Menthol/Lanolin/Calamine/Znox 113 GM Tube 1 APPLIC TOPICAL ×2 (05:23→17:57)
[2020-06-04] MEDS: oxyCODONE 5 MG Tablet PO (09:09)
[2020-06-04] MEDS: Calcium Carb/Vitamin D 1 TABLET Tablet PO ×2 (09:11→18:01)
[2020-06-04] MEDS: Iron Polysaccharide Complex 150 MG CAPSULE PO (09:11)
[2020-06-04] MEDS: FLUCONAZOLE 150 MG TABLET PO (10:12)
[2020-06-04 13:46] VITALS: BP 98/53; PULSE 66; RESP 14; TEMP 36.8; O2SAT 95
[2020-06-04] MEDS: Ketoconazole Cream 1 APPLIC TOPICAL (17:58)
[2020-06-04] MEDS: Furosemide 40 MG Tablet PO (20:31)
[2020-06-04] MEDS: MELATONIN 10 MG TABLET PO (20:31)
[2020-06-05] MEDS: oxyCODONE 5 MG Tablet PO ×2 (03:30→12:59)
[2020-06-05 06:22] VITALS: BP 109/50; PULSE 70; RESP 16; TEMP 36.4; O2SAT 94
[2020-06-05] MEDS: Carvedilol 12.5 MG Tablet PO ×2 (06:24→17:55)
[2020-06-05] MEDS: Acetaminophen 500 MG Tablet 1000 MG PO ×3 (06:24→19:24)
[2020-06-05] MEDS: Senna/Docusate Sodium 1 Tablet 2 TABLET PO ×2 (06:24→17:55)
[2020-06-05] MEDS: buPROPion (SR) 150 MG Tablet.SA PO (06:24)
[2020-06-05] MEDS: Paroxetine 20 MG Tablet 30 MG PO (06:25)
[2020-06-05] MEDS: Ketoconazole Cream 1 APPLIC TOPICAL ×2 (06:27→17:56)
[2020-06-05] MEDS: Famotidine 20 MG Tablet PO ×2 (06:27→17:55)
[2020-06-05] MEDS: Menthol/Lanolin/Calamine/Znox 113 GM Tube 1 APPLIC TOPICAL ×2 (06:28→17:56)
[2020-06-05] MEDS: Iron Polysaccharide Complex 150 MG CAPSULE PO (07:44)
[2020-06-05] MEDS: Calcium Carb/Vitamin D 1 TABLET Tablet PO ×2 (07:44→17:54)
[2020-06-05 16:51] VITALS: BP 120/55; PULSE 74; RESP 16; TEMP 36.9; O2SAT 94
[2020-06-05] MEDS: Nystatin Powder 15gm Bottle 1 APPLIC TOPICAL (18:01)
[2020-06-05] MEDS: MELATONIN 10 MG TABLET PO (19:25)
[2020-06-05] MEDS: Furosemide 40 MG Tablet PO (19:27)
[2020-06-06] MEDS: oxyCODONE 5 MG Tablet PO ×2 (02:41→08:57)
[2020-06-06 05:57] VITALS: BP 113/42; PULSE 71; RESP 16; TEMP 35.8; O2SAT 93
[2020-06-06] MEDS: Senna/Docusate Sodium 1 Tablet 2 TABLET PO ×2 (05:58→16:48)
[2020-06-06] MEDS: Carvedilol 12.5 MG Tablet PO ×2 (05:58→16:48)
[2020-06-06] MEDS: Acetaminophen 500 MG Tablet 1000 MG PO ×3 (05:58→19:51)
[2020-06-06] MEDS: Paroxetine 20 MG Tablet 30 MG PO (05:59)
[2020-06-06] MEDS: buPROPion (SR) 150 MG Tablet.SA PO (05:59)
[2020-06-06] MEDS: Famotidine 20 MG Tablet PO ×2 (05:59→16:47)
[2020-06-06] MEDS: Nystatin Powder 15gm Bottle 1 APPLIC TOPICAL ×2 (06:01→16:49)
[2020-06-06] MEDS: Menthol/Lanolin/Calamine/Znox 113 GM Tube 1 APPLIC TOPICAL ×2 (06:01→16:48)
[2020-06-06] MEDS: Ketoconazole Cream 1 APPLIC TOPICAL ×2 (06:02→16:48)
[2020-06-06] MEDS: Calcium Carb/Vitamin D 1 TABLET Tablet PO ×2 (08:52→16:47)
[2020-06-06] MEDS: Iron Polysaccharide Complex 150 MG CAPSULE PO (08:53)
[2020-06-06 13:45] VITALS: BP 106/56; PULSE 63; RESP 16; TEMP 36.4; O2SAT 94
[2020-06-06] MEDS: Furosemide 40 MG Tablet PO (19:51)
[2020-06-06] MEDS: MELATONIN 10 MG TABLET PO (19:52)
[2020-06-07] MEDS: oxyCODONE 5 MG Tablet PO ×2 (00:43→16:52)
[2020-06-07 05:09] VITALS: BP 108/42; PULSE 77; RESP 18; TEMP 36.1; O2SAT 92
[2020-06-07] MEDS: Paroxetine 20 MG Tablet 30 MG PO (05:13)
[2020-06-07] MEDS: Senna/Docusate Sodium 1 Tablet 2 TABLET PO ×2 (05:13→16:33)
[2020-06-07] MEDS: Famotidine 20 MG Tablet PO ×2 (05:14→16:33)
[2020-06-07] MEDS: Acetaminophen 500 MG Tablet 1000 MG PO ×3 (05:14→20:40)
[2020-06-07] MEDS: Carvedilol 12.5 MG Tablet PO ×2 (05:14→16:32)
[2020-06-07] MEDS: buPROPion (SR) 150 MG Tablet.SA PO (05:14)
[2020-06-07] MEDS: Ketoconazole Cream 1 APPLIC TOPICAL ×2 (05:15→16:37)
[2020-06-07] MEDS: Nystatin Powder 15gm Bottle 1 APPLIC TOPICAL ×2 (05:20→16:38)
[2020-06-07] MEDS: Menthol/Lanolin/Calamine/Znox 113 GM Tube 1 APPLIC TOPICAL ×2 (05:20→16:35)
[2020-06-07] MEDS: Iron Polysaccharide Complex 150 MG CAPSULE PO (07:52)
[2020-06-07] MEDS: Calcium Carb/Vitamin D 1 TABLET Tablet PO ×2 (07:52→16:32)
[2020-06-07 15:05] VITALS: BP 113/44; PULSE 81; RESP 18; TEMP 36.8; O2SAT 94
[2020-06-07] MEDS: MELATONIN 10 MG TABLET PO (20:40)
[2020-06-07] MEDS: Furosemide 40 MG Tablet PO (20:41)
[2020-06-08 03:45] VITALS: BP 104/51; PULSE 63; RESP 16; TEMP 36.6; O2SAT 93
[2020-06-08] MEDS: oxyCODONE 5 MG Tablet PO ×3 (03:46→21:17)
[2020-06-08] MEDS: Acetaminophen 500 MG Tablet 1000 MG PO ×3 (05:09→21:17)
[2020-06-08] MEDS: Ketoconazole Cream 1 APPLIC TOPICAL ×2 (05:10→16:54)
[2020-06-08] MEDS: buPROPion (SR) 150 MG Tablet.SA PO (05:10)
[2020-06-08] MEDS: Paroxetine 20 MG Tablet 30 MG PO (05:10)
[2020-06-08] MEDS: Carvedilol 12.5 MG Tablet PO ×2 (05:10→16:54)
[2020-06-08] MEDS: Famotidine 20 MG Tablet PO ×2 (05:10→16:54)
[2020-06-08] MEDS: Menthol/Lanolin/Calamine/Znox 113 GM Tube 1 APPLIC TOPICAL ×2 (05:13→16:55)
[2020-06-08] MEDS: Nystatin Powder 15gm Bottle 1 APPLIC TOPICAL ×2 (05:13→16:57)
[2020-06-08] MEDS: Calcium Carb/Vitamin D 1 TABLET Tablet PO ×2 (07:42→16:52)
[2020-06-08] MEDS: Iron Polysaccharide Complex 150 MG CAPSULE PO (07:42)
[2020-06-08 14:55] VITALS: BP 98/55; PULSE 78; RESP 16; TEMP 36.7; O2SAT 90
[2020-06-08 14:56] VITALS: PULSE 78; RESP 16; O2SAT 90
[2020-06-08] MEDS: Senna/Docusate Sodium 1 Tablet 2 TABLET PO (16:53)
[2020-06-08] MEDS: MELATONIN 10 MG TABLET PO (21:18)
[2020-06-08] MEDS: Furosemide 40 MG Tablet PO (21:18)
[2020-06-09 05:12] VITALS: BP 95/42; PULSE 68; RESP 16; TEMP 36.7; O2SAT 92
[2020-06-09] MEDS: Acetaminophen 500 MG Tablet 1000 MG PO ×3 (05:14→20:46)
[2020-06-09] MEDS: Paroxetine 20 MG Tablet 30 MG PO (05:14)
[2020-06-09] MEDS: Senna/Docusate Sodium 1 Tablet 2 TABLET PO ×2 (05:14→17:14)
[2020-06-09] MEDS: Carvedilol 12.5 MG Tablet PO ×2 (05:15→17:13)
[2020-06-09] MEDS: Famotidine 20 MG Tablet PO ×2 (05:15→17:14)
[2020-06-09] MEDS: buPROPion (SR) 150 MG Tablet.SA PO (05:15)
[2020-06-09] MEDS: Nystatin Powder 15gm Bottle 1 APPLIC TOPICAL ×2 (05:17→17:13)
[2020-06-09] MEDS: Ketoconazole Cream 1 APPLIC TOPICAL ×2 (05:17→20:48)
[2020-06-09] MEDS: Menthol/Lanolin/Calamine/Znox 113 GM Tube 1 APPLIC TOPICAL ×2 (05:18→17:12)
[2020-06-09] MEDS: Calcium Carb/Vitamin D 1 TABLET Tablet PO ×2 (08:24→17:12)
[2020-06-09] MEDS: Iron Polysaccharide Complex 150 MG CAPSULE PO (08:24)
[2020-06-09 11:36] VITALS: BP 98/56; PULSE 74; RESP 14; TEMP 36; O2SAT 93
--- NOTE | 2020-06-09 19:18 | PCM.TCUNOT ---
Subjective: Resident seen for regulatory visit today. She is sitting in recliner. She has no new problems, concerns, complaints. She did mention her rash under her pannus, treated with antifungal cream which is helping. Vitals/I&O's: Vital Signs Temp Pulse Resp BP Pulse Ox 96.8 F L 74 14 98/56 L 93 06/09/20 11:36 06/09/20 11:36 06/09/20 11:36 06/09/20 11:36 06/09/20 11:36 Oxygen Delivery Method Room Air Weight: 80.456 kg Body Mass Index (BMI) 38.3 Intake and Output for Last 24 Hours 06/07/20 06/08/20 06/09/20 23:59 23:59 23:59 Intake Total 960 / 960 900 / 900 840 / 840 Output Total 550 / 550 700 / 700 1000 / 1000 Balance 410 / 410 200 / 200 -160 / -160 Past Medical History Past Medical History (Chronic Problems): Chronic Problems (Last Updated 05/09/20 @ 19:[address] Tim Cole MD) Chronic depression (Chronic) Chronic diastolic (congestive) heart failure (Chronic) Hypertension (Chronic) GERD (gastroesophageal reflux disease) (Chronic) Anxiety (Chronic) Depression (Chronic) COPD (chronic obstructive pulmonary disease) (Chronic) Chronic anemia (Chronic) ACUTE ON CHRONIC ANEMIA DUE TO BLOOD LOSS FROM RIGHT HIP FRACTURE Non-ischemic cardiomyopathy (Chronic) Chronic systolic (congestive) heart failure (Chronic) Secondary pulmonary arterial hypertension (Chronic) Medical History: Medical History (Last Updated 05/09/20 @ 19:[address] Tim Cole MD) Non-ischemic cardiomyopathy (Chronic) I42.8 Chronic systolic (congestive) heart failure (Chronic) I50.22 Secondary pulmonary arterial hypertension (Chronic) I27.21 Anemia D64.9 Bilateral pleural effusion J90 COPD (chronic obstructive pulmonary disease) J44.9 Depression F32.9 Frequent falls R29.6 GERD (gastroesophageal reflux disease) K21.9 Obesity E66.9 Obstructive sleep apnea G47.33 Osteoarthritis M19.90 Osteoporosis M81.0 Abnormal electrocardiogram (Inactive) R94.31 Congestive heart failure (CHF) (Inactive) I50.9 Dilated cardiomyopathy (Inactive) I42.0 Allergies diclofenac [From Voltaren] Allergy (Verified 03/06/20 10:42) Rash acetaminophen [From Vicodin] Adverse Reaction (Verified 03/06/20 10:42) Other hydrocodone [From Vicodin] Adverse Reaction (Verified 03/06/20 10:42) Other Home Medications: Ambulatory Orders Medication Instructions Recorded Bupropion HCl [Wellbutrin Sr] 150 mg PO DAILY 08/13/19 famotidine 20 mg tablet 20 mg PO BID tab 03/06/20 Calcium Carb/Vitamin D [Os-Chi 1 tab PO BIDCM 05/09/20 500MG + D] Carvedilol 25 mg PO BID 05/09/20 Furosemide 40 mg PO DAILY 05/09/20 Lisinopril 2.5 mg PO DAILY 05/09/20 Paroxetine HCl [Paxil] 30 mg PO DAILY 05/09/20 Calcium Carb/Vitamin D [Os-Chi 1 tab PO BIDCM 05/12/20 500MG + D] Carvedilol [Coreg (Beta Shola)] 25 mg PO BIDCM 05/12/20 Cholecalciferol (VIT D3) [Vitamin 1,000 unit PO DAILY 05/12/20 D] Enoxaparin [Lovenox] 40 mg SC DAILY 05/12/20 Lisinopril [Zestril] 2.5 mg PO DAILY 05/12/20 Oxycodone [Oxyir] 5 - 10 mg PO Q6H PRN PRN 7 Days 05/12/20 #30 tab Senna/Docusate Sodium [Senokot-S] 2 tab PO BID PRN PRN tab 05/12/20 Surgical History: Surgical History (Last Reviewed 03/06/20 @ 10:[address] Charile Ovalle MD) History of Z98.891 History of gastric bypass Z98.84 History of herniorrhaphy Z98.890, Z87.19 History of left heart catheterization Onset Date: 12/05/18 Z98.890 History of open reduction and internal fixation (ORIF) procedure Z98.890 Left femur History of open reduction and internal fixation (ORIF) procedure Z98.890 LUE History of tonsillectomy Z90.89 Hx of cholecystectomy Z90.49 Surgical History: cholecystectomy, gastric bypass, herniorrhaphy - Incisional., tonsillectomy, - - , ORIF left femur, ORIF left upper extremity, ORIF right hip. Psychiatric History: Anxiety, Depression [employer]OR [employer] History: No pertinent [employer]OR [employer] history Lives: Spouse/ Significant Other Smoking Status: Former smoker Alcohol: None Drugs: None - *Family History Maternal Family History: Family History (Last Reviewed 03/06/20 @ 10:[address] Charlie Ovalle MD) Mother Diabetes Heart disease Hypertension Hyperlipidemia Father Diabetes Heart disease Hypertension Hyperlipidemia History Items: Diabetes, High Cholesterol, Heart Disease, Hypertension Paternal Family History: Family History (Last Reviewed 03/06/20 @ 10:[address] Charlie Ovalle MD) Mother Diabetes Heart disease Hypertension Hyperlipidemia Father Diabetes Heart disease Hypertension Hyperlipidemia History Items: Diabetes, High Cholesterol, Heart Disease, Hypertension Capacity - Capacity Assessment Tool Can the patient make a choice & communicate that choice?: Yes Can the patient understand benefits, risks and alternatives?: Yes Can the patient make a logical, rational choice?: Yes Is the choice the patient makes consistent w/ their values?: Yes Is there an impending, emergent risk to the patient?: No Does the patient have an Advance Directive?: No Is there a Surrogate Available?: Yes i.e. HCPOA: Yes i.e. close relative (spouse, child, parent, sibling)?: Yes Review of Systems Constitutional: Denies: Chills, Fever, Weight Change HEENT: Denies: Head Aches, Sinus Congestion, Sinus Drainage Cardiovascular: Denies: Chest Pain, Palpitations Respiratory: Denies: Cough, Shortness of breath at rest, Sputum production Gastrointestinal: Denies: Abdominal Pain, Nausea, Vomiting Genitourinary: Denies: Dysuria Musculoskeletal: Denies: Joint Pain, Joint Tenderness Skin: Denies: Rash, Wounds Neurological: Denies: Numbness, Tingling, Focal weakness Psychiatric: Denies: Anxiety, Depression, Homicidal Ideations, Suicidal Ideations Hematologic/ Lymphatic: Denies: Easy Bruising, Easy Bleeding Patient Problems: Active and Suspected Problems (Last Updated 05/09/20 @ 19:[address] Tim Cole MD) Debility (Acute) Fall (Acute) Closed right hip fracture (Acute) - Physical Exam Vitals/I&O's: Vital Signs Temp Pulse Resp BP Pulse Ox 96.8 F L 74 14 98/56 L 93 06/09/20 11:36 06/09/20 11:36 06/09/20 11:36 06/09/20 11:36 06/09/20 11:36 Oxygen Delivery Method Room Air Weight: 80.456 kg Body Mass Index (BMI) 38.3 Intake and Output for Last 24 Hours 06/07/20 06/08/20 06/09/20 23:59 23:59 23:59 Intake Total 960 / 960 900 / 900 840 / 840 Output Total 550 / 550 700 / 700 1000 / 1000 Balance 410 / 410 200 / 200 -160 / -160 General: Alert, Oriented x3, Cooperative HEENT: Atraumatic, PERRLA, EOMI, Normocephalic Neck: Supple, No JVD, Negative Carotid Bruits Lungs: Clear to auscultation, Normal air movement Cardiovascular: Regular rate, No murmurs Abdomen: Bowel Sounds Present, Soft, Non Tender Extremities: No edema, Capillary Refill Less than 3 Seconds Skin: No rashes, No breakdown Musculoskeletal: No Tenderness to Palpation of Joints or Extremities Neurological: Cranial nerves II-XII grossly intact Psych/Mental Status: Normal Affect, Appropriate Current Medications Acetaminophen (Acetaminophen 500 Mg Tablet) 1,000 mg PO Q8 [facility] Last Admin: 06/09/20 14:20 Dose: 1,000 mg Documented by: Bisacodyl (Bisacodyl 10 Mg Suppository) 10 mg RECTAL DAILY PRN PRN Reason: Constipation Last Admin: 05/15/20 06:13 Dose: 10 mg Documented by: Bupropion HCl (Bupropion (Sr) 150 Mg Tablet.Sa) 150 mg PO DAILY [facility] Last Admin: 06/09/20 05:15 Dose: 150 mg Documented by: Calamine/Phenol (Menthol/Lanolin/Calamine/Znox 113 Gm Tube) 1 applic TOPICAL BID [facility]; Protocol Last Admin: 06/09/20 17:12 Dose: 1 applicatio Documented by: Calcium/Vitamin D (Calcium Carb/Vitamin D 1 Tablet Tablet) [facility] Admin: 06/09/20 17:12 Dose: 1 tablet Documented by: Carvedilol (Carvedilol 12.5 Mg Tablet) 12.5 mg PO BID [facility] Last Admin: 06/09/20 17:13 Dose: 12.5 mg Documented by: Cholecalciferol (Cholecalciferol (Vit D3) 1,000 Unit (25mcg)) 1,000 unit PO DAILY [facility] Last Admin: 06/09/20 05:15 Dose: 1,000 unit Documented by: Famotidine (Famotidine 20 Mg Tablet) 20 mg PO BID [facility] Last Admin: 06/09/20 17:14 Dose: 20 mg Documented by: Furosemide (Furosemide 40 Mg Tablet) 40 mg PO DAILY@1900 [facility] Last Admin: 06/08/20 21:18 Dose: 40 mg Documented by: Sodium Chloride () 250 mls @ 15 mls/hr IV .[id number] PRN PRN Reason: Saline Flush Sodium Chloride () 250 mls @ 15 mls/hr IV .[id number] PRN PRN Reason: Additional IVPB Infusion Ketoconazole (Ketoconazole Cream) 1 applic TOPICAL BID [facility]; Protocol Last Admin: 06/09/20 05:17 Dose: 1 applicatio Documented by: Magnesium Hydroxide (Magnesium Hydroxide 30 Ml Udc) 30 ml PO DAILY PRN PRN Reason: Constipation Last Admin: 05/13/20 19:47 Dose: 30 ml Documented by: Melatonin (Melatonin 10 Mg Tablet) 10 mg PO QHS [facility] Last Admin: 06/08/20 21:18 Dose: 10 mg Documented by: Non-Formulary Medication (Viviscal) [facility] Last Admin: 06/09/20 17:12 Dose: 1 tab Documented by: Nystatin (Nystatin Powder 15gm Bottle) 1 applic TOPICAL BID [facility]; Protocol Last Admin: 06/09/20 17:13 Dose: 1 applicatio Documented by: Oxycodone HCl (Oxycodone 5 Mg Tablet) 5 mg PO Q4H PRN PRN PRN Reason: Pain Score 6-10 Last Admin: 06/08/20 21:17 Dose: 5 mg Documented by: Paroxetine HCl (Paroxetine 20 Mg Tablet) 30 mg PO DAILY [facility] Last Admin: 06/09/20 05:14 Dose: 30 mg Documented by: Polyethylene Glycol (Polyethylene Glycol 3350 17 Gm Packet) 17 gm PO DAILY [facility] Last Admin: 06/09/20 05:15 Dose: Not Given Documented by: Polysaccharide Iron Complex (Iron Polysaccharide Complex 150 Mg Capsule) [facility] Last Admin: 06/09/20 08:24 Dose: 150 mg Documented by: Senna/Docusate Sodium (Senna/Docusate Sodium 1 Tablet) 2 tablet PO BID [facility] Last Admin: 06/09/20 17:14 Dose: 2 tablet Documented by: Sodium Chloride (0.9% Saline Lock 10 Ml Syringe) 10 - 40 ml IV UD PRN PRN Reason: SALINE FLUSH Last Admin: 06/02/20 17:09 Dose: 10 ml Documented by: Assessment/Plan All Active Problems (Last Updated 05/09/20 @ 19:[address] Tim Cole MD) Right medial tibial plateau fracture (Acute) Debility (Acute) Fall (Acute) Closed right hip fracture (Acute) 70 year old female with below past medical history hospitalized for right hip fracture, underwent ORIF right hip with Gamma nail 05/10/20, postoperative course uncomplicated, admitted to TCU with debility, here for rehabilitation, strengthening, prior to discharge home with significant other. Debility - PT/OT. Pain - Tylenol 1000MG Q8H, Oxycodone 5MG Q4H PRN pain (6-10). Bowel - Miralax 17GM daily, Senna/colace 2 tablets BID, MOM 30ML daily PRN, Dulcolax 10MG [place] daily PRN. Adult immunization - Administer Prevnar 13, Pneumovax 23, Fluzone as appropriate. DVT prophylaxis - Held due to anemia. Depression - Bupropion 150MG daily, stable chronic residential use, GDR not recommended. Calcium deficiency - Calcium D BID. Chronic diastolic congestive heart failure - Coreg 25MG BID, Lasix 40MG daily. Vitamin D deficiency - D3 1000IU daily. GERD - Famotidine 20MG BID. 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 Iron deficiency anemia - Ferrex 150MG daily. Tinea Corporis - Ketoconazole cream topical BID, Nystatin powder topical BID. Insomnia - Melatonin 10MG QHS. Skin irritation - Calmoseptine topical BID.
[2020-06-09] MEDS: oxyCODONE 5 MG Tablet PO (20:46)
[2020-06-09] MEDS: Furosemide 40 MG Tablet PO (20:47)
[2020-06-09] MEDS: MELATONIN 10 MG TABLET PO (20:47)
[2020-06-10 05:00] VITALS: BP 117/65; PULSE 68; RESP 16; TEMP 36.7; O2SAT 94
[2020-06-10] MEDS: Paroxetine 20 MG Tablet 30 MG PO (05:01)
[2020-06-10] MEDS: Acetaminophen 500 MG Tablet 1000 MG PO ×3 (05:02→19:52)
[2020-06-10] MEDS: Carvedilol 12.5 MG Tablet PO ×2 (05:02→16:53)
[2020-06-10] MEDS: Ketoconazole Cream 1 APPLIC TOPICAL ×2 (05:03→16:55)
[2020-06-10] MEDS: Famotidine 20 MG Tablet PO ×2 (05:03→16:56)
[2020-06-10] MEDS: buPROPion (SR) 150 MG Tablet.SA PO (05:03)
[2020-06-10] MEDS: Nystatin Powder 15gm Bottle 1 APPLIC TOPICAL ×2 (05:05→16:54)
[2020-06-10] MEDS: Menthol/Lanolin/Calamine/Znox 113 GM Tube 1 APPLIC TOPICAL ×2 (05:05→16:54)
[2020-06-10 05:41] LABS: Absolute Lymphocyte Count 2.75 X10^3/uL (0.83-4.51); Absolute Neutrophil Count 2.3 X10^3/uL (2.0-7.7); Basophil# 0.05 X10^3/uL; Basophil% 0.9 % (0-1); Eosinophil# 0.12 X10^3/uL; Eosinophils% 2.1 % (0-5); Hematocrit 37.7 % (37-47); Hemoglobin 11.5 g/dL (12.0-15.0); Lymphocyte # 2.75 X10^3/ul (4.0); Lymphocyte % 48.3 % (19-41); Mean Corp Hgb Conc 30.5 g/dL (32-36); Mean Corpuscular Hgb 27.8 pg (27.0-32.0); Mean Corpuscular Volume 91.3 fL (81-99); Mean Platelet Vol. 9.2 fl (6.2-12.0); Monocyte# 0.46 X10^3/uL; Monocyte% 8.1 % (0-10); NRBC Flagged by Analyzer 0 % (0-5); Neutrophil % 40.4 % (47-70); Platelet Count 243 K/mm3 (150-450); RBC Distribution Width CV 14.1 % (11.6-14.6); RBC Distribution Width SD 47.4 fl (35.1-43.9); Red Blood Count 4.13 M/mm3 (4.2-5.4); White Blood Count 5.7 K/mm3 (4.4-11.0)
[2020-06-10 06:07] LABS: Anion Gap 2 (5-15); BUN 39 mg/dL (7-18); BUN/Creat Ratio 37.1 RATIO (10-20); Calcium,Total 9.5 mg/dL (8.5-10.1); Chloride 103 mmol/L (98-107); Creatinine, Serum 1.05 mg/dL (0.55-1.02); EST Glomerular Filtration Rate 55 mL/min (>60); Est Glom Filt Rate - Afr Amer 66 mL/min (>60); Estimated Creatinine Clearance 61.51 ml/min; Glucose 89 mg/dL (74-106); Potassium 3.5 mmol/L (3.5-5.1); Sodium Level 140 mmol/L (136-145)
[2020-06-10] MEDS: Calcium Carb/Vitamin D 1 TABLET Tablet PO ×2 (08:07→16:53)
[2020-06-10] MEDS: Iron Polysaccharide Complex 150 MG CAPSULE PO (08:07)
[2020-06-10] MEDS: oxyCODONE 5 MG Tablet PO ×2 (12:31→19:51)
[2020-06-10 13:36] VITALS: BP 125/54; PULSE 83; RESP 18; TEMP 36.9; O2SAT 94
[2020-06-10] MEDS: Senna/Docusate Sodium 1 Tablet 2 TABLET PO (16:56)
[2020-06-10] MEDS: MELATONIN 10 MG TABLET PO (19:52)
[2020-06-10] MEDS: Furosemide 40 MG Tablet PO (19:52)
[2020-06-11 06:00] VITALS: BP 111/42; PULSE 73; RESP 16; TEMP 36; O2SAT 92
[2020-06-11] MEDS: buPROPion (SR) 150 MG Tablet.SA PO (06:01)
[2020-06-11] MEDS: Senna/Docusate Sodium 1 Tablet 2 TABLET PO ×2 (06:01→17:51)
[2020-06-11] MEDS: Acetaminophen 500 MG Tablet 1000 MG PO ×3 (06:02→20:40)
[2020-06-11] MEDS: Famotidine 20 MG Tablet PO ×2 (06:02→17:51)
[2020-06-11] MEDS: Carvedilol 12.5 MG Tablet PO ×2 (06:02→17:51)
[2020-06-11] MEDS: Paroxetine 20 MG Tablet 30 MG PO (06:02)
[2020-06-11] MEDS: Ketoconazole Cream 1 APPLIC TOPICAL ×2 (06:03→17:50)
[2020-06-11] MEDS: Nystatin Powder 15gm Bottle 1 APPLIC TOPICAL (06:03)
[2020-06-11] MEDS: Menthol/Lanolin/Calamine/Znox 113 GM Tube 1 APPLIC TOPICAL ×2 (06:04→17:51)
[2020-06-11] MEDS: Calcium Carb/Vitamin D 1 TABLET Tablet PO ×2 (08:23→17:50)
[2020-06-11] MEDS: Iron Polysaccharide Complex 150 MG CAPSULE PO (08:23)
[2020-06-11] MEDS: oxyCODONE 5 MG Tablet PO (13:16)
[2020-06-11 13:50] VITALS: BP 123/61; PULSE 79; RESP 16; TEMP 36.7; O2SAT 95
[2020-06-11] MEDS: MELATONIN 10 MG TABLET PO (20:40)
[2020-06-11] MEDS: Furosemide 40 MG Tablet PO (20:41)
[2020-06-12 03:38] VITALS: BP 103/52; PULSE 72; RESP 16; TEMP 36.7; O2SAT 92
[2020-06-12] MEDS: oxyCODONE 5 MG Tablet PO ×3 (03:39→20:30)
[2020-06-12] MEDS: Nystatin Powder 15gm Bottle 1 APPLIC TOPICAL ×2 (05:04→17:50)
[2020-06-12] MEDS: Ketoconazole Cream 1 APPLIC TOPICAL ×2 (05:04→17:49)
[2020-06-12] MEDS: Paroxetine 20 MG Tablet 30 MG PO (05:05)
[2020-06-12] MEDS: Carvedilol 12.5 MG Tablet PO ×2 (05:05→17:48)
[2020-06-12] MEDS: Famotidine 20 MG Tablet PO ×2 (05:05→17:48)
[2020-06-12] MEDS: Acetaminophen 500 MG Tablet 1000 MG PO ×3 (05:05→20:31)
[2020-06-12] MEDS: Senna/Docusate Sodium 1 Tablet 2 TABLET PO ×2 (05:05→17:47)
[2020-06-12] MEDS: buPROPion (SR) 150 MG Tablet.SA PO (05:05)
[2020-06-12] MEDS: Menthol/Lanolin/Calamine/Znox 113 GM Tube 1 APPLIC TOPICAL ×2 (05:07→17:50)
[2020-06-12] MEDS: Iron Polysaccharide Complex 150 MG CAPSULE PO (08:07)
[2020-06-12] MEDS: Calcium Carb/Vitamin D 1 TABLET Tablet PO ×2 (08:08→17:48)
[2020-06-12 13:47] VITALS: BP 115/59; PULSE 80; RESP 18; TEMP 36.2; O2SAT 94
--- NOTE | 2020-06-12 15:43 | NURSING ---
Resident and family notified of staff members testing positive for COVID
[2020-06-12] MEDS: MELATONIN 10 MG TABLET PO (20:32)
[2020-06-12] MEDS: Furosemide 40 MG Tablet PO (20:32)
--- NOTE | 2020-06-13 04:15 | NURSING ---
Pt c/o of feeling very anxious. Pt crying in room and feeling very overwhelmed. Dr. Espinal made aware and ordered 1x dose of Xanx.
[2020-06-13 05:38] VITALS: BP 118/41; PULSE 73; RESP 16; TEMP 36.6; O2SAT 95
[2020-06-13] MEDS: Menthol/Lanolin/Calamine/Znox 113 GM Tube 1 APPLIC TOPICAL ×2 (05:40→17:22)
[2020-06-13] MEDS: Acetaminophen 500 MG Tablet 1000 MG PO ×3 (05:41→19:45)
[2020-06-13] MEDS: Famotidine 20 MG Tablet PO ×2 (05:42→17:21)
[2020-06-13] MEDS: Senna/Docusate Sodium 1 Tablet 2 TABLET PO ×2 (05:42→17:21)
[2020-06-13] MEDS: Carvedilol 12.5 MG Tablet PO ×2 (05:42→17:22)
[2020-06-13] MEDS: Paroxetine 20 MG Tablet 30 MG PO (05:42)
[2020-06-13] MEDS: buPROPion (SR) 150 MG Tablet.SA PO (05:42)
[2020-06-13] MEDS: Nystatin Powder 15gm Bottle 1 APPLIC TOPICAL ×2 (05:43→18:06)
[2020-06-13] MEDS: Ketoconazole Cream 1 APPLIC TOPICAL ×2 (05:44→17:22)
[2020-06-13] MEDS: Calcium Carb/Vitamin D 1 TABLET Tablet PO ×2 (07:55→17:22)
[2020-06-13] MEDS: Iron Polysaccharide Complex 150 MG CAPSULE PO (07:55)
[2020-06-13] MEDS: oxyCODONE 5 MG Tablet PO (13:06)
[2020-06-13 14:59] VITALS: BP 113/67; PULSE 84; RESP 16; TEMP 36.7; O2SAT 95
[2020-06-13] MEDS: ALPRAZolam 0.5 MG Tablet PO (15:35)
[2020-06-13] MEDS: MELATONIN 10 MG TABLET PO (19:46)
[2020-06-13] MEDS: Furosemide 40 MG Tablet PO (19:46)
[2020-06-13] MEDS: Magnesium Hydroxide 30 ML UDC PO (19:49)
[2020-06-14 05:06] VITALS: BP 102/60; PULSE 73; RESP 16; TEMP 36.2; O2SAT 100
[2020-06-14] MEDS: Menthol/Lanolin/Calamine/Znox 113 GM Tube 1 APPLIC TOPICAL ×2 (05:10→17:02)
[2020-06-14] MEDS: Carvedilol 12.5 MG Tablet PO ×2 (05:11→17:05)
[2020-06-14] MEDS: Famotidine 20 MG Tablet PO ×2 (05:11→17:06)
[2020-06-14] MEDS: Senna/Docusate Sodium 1 Tablet 2 TABLET PO ×2 (05:11→17:06)
[2020-06-14] MEDS: Paroxetine 20 MG Tablet 30 MG PO (05:11)
[2020-06-14] MEDS: Acetaminophen 500 MG Tablet 1000 MG PO ×3 (05:11→21:07)
[2020-06-14] MEDS: Nystatin Powder 15gm Bottle 1 APPLIC TOPICAL ×2 (05:12→17:07)
[2020-06-14] MEDS: buPROPion (SR) 150 MG Tablet.SA PO (05:12)
[2020-06-14] MEDS: Ketoconazole Cream 1 APPLIC TOPICAL ×2 (05:12→17:07)
[2020-06-14] MEDS: Calcium Carb/Vitamin D 1 TABLET Tablet PO ×2 (07:54→17:05)
[2020-06-14] MEDS: Iron Polysaccharide Complex 150 MG CAPSULE PO (07:55)
[2020-06-14] MEDS: oxyCODONE 5 MG Tablet PO ×2 (14:28→18:41)
[2020-06-14 16:10] VITALS: BP 106/63; PULSE 73; RESP 18; TEMP 36.7; O2SAT 95
[2020-06-14] MEDS: MELATONIN 10 MG TABLET PO (21:08)
[2020-06-14] MEDS: Furosemide 40 MG Tablet PO (21:08)
[2020-06-15 05:56] VITALS: BP 109/50; PULSE 63; RESP 15; TEMP 35.7; O2SAT 94
[2020-06-15] MEDS: Nystatin Powder 15gm Bottle 1 APPLIC TOPICAL ×2 (05:59→16:39)
[2020-06-15] MEDS: Menthol/Lanolin/Calamine/Znox 113 GM Tube 1 APPLIC TOPICAL ×2 (05:59→16:38)
[2020-06-15] MEDS: Acetaminophen 500 MG Tablet 1000 MG PO ×3 (05:59→21:44)
[2020-06-15] MEDS: Senna/Docusate Sodium 1 Tablet 2 TABLET PO ×2 (06:00→16:37)
[2020-06-15] MEDS: Famotidine 20 MG Tablet PO ×2 (06:00→16:37)
[2020-06-15] MEDS: Paroxetine 20 MG Tablet 30 MG PO (06:00)
[2020-06-15] MEDS: Carvedilol 12.5 MG Tablet PO ×2 (06:00→16:37)
[2020-06-15] MEDS: buPROPion (SR) 150 MG Tablet.SA PO (06:00)
[2020-06-15] MEDS: Magnesium Hydroxide 30 ML UDC PO (06:01)
[2020-06-15] MEDS: Ketoconazole Cream 1 APPLIC TOPICAL ×2 (06:02→16:39)
[2020-06-15] MEDS: Calcium Carb/Vitamin D 1 TABLET Tablet PO ×2 (07:50→16:36)
[2020-06-15] MEDS: Iron Polysaccharide Complex 150 MG CAPSULE PO (07:50)
[2020-06-15 13:30] VITALS: BP 104/65; PULSE 73; RESP 17; TEMP 36.2; O2SAT 96
[2020-06-15] MEDS: oxyCODONE 5 MG Tablet PO ×2 (14:38→21:48)
[2020-06-15] MEDS: MELATONIN 10 MG TABLET PO (21:45)
[2020-06-15] MEDS: Furosemide 40 MG Tablet PO (21:45)
[2020-06-16 05:23] VITALS: BP 127/37; PULSE 70; RESP 16; TEMP 35.8; O2SAT 92
[2020-06-16] MEDS: Famotidine 20 MG Tablet PO ×2 (05:26→17:19)
[2020-06-16] MEDS: Acetaminophen 500 MG Tablet 1000 MG PO ×3 (05:26→21:10)
[2020-06-16] MEDS: Carvedilol 12.5 MG Tablet PO ×2 (05:26→17:19)
[2020-06-16] MEDS: oxyCODONE 5 MG Tablet PO ×3 (05:26→21:10)
[2020-06-16] MEDS: buPROPion (SR) 150 MG Tablet.SA PO (05:26)
[2020-06-16] MEDS: Paroxetine 20 MG Tablet 30 MG PO (05:27)
[2020-06-16] MEDS: Senna/Docusate Sodium 1 Tablet 2 TABLET PO ×2 (05:27→17:20)
[2020-06-16] MEDS: Ketoconazole Cream 1 APPLIC TOPICAL ×2 (05:28→21:12)
[2020-06-16] MEDS: Nystatin Powder 15gm Bottle 1 APPLIC TOPICAL ×2 (05:29→21:12)
[2020-06-16] MEDS: Menthol/Lanolin/Calamine/Znox 113 GM Tube 1 APPLIC TOPICAL ×2 (05:30→21:12)
[2020-06-16] MEDS: Calcium Carb/Vitamin D 1 TABLET Tablet PO ×2 (08:14→17:19)
[2020-06-16] MEDS: Iron Polysaccharide Complex 150 MG CAPSULE PO (08:14)
[2020-06-16 14:10] VITALS: BP 111/57; PULSE 82; RESP 16; TEMP 36.4; O2SAT 94
--- NOTE | 2020-06-16 18:07 | NURSING ---
Resident states she is more depressed and would like to speak with Dr coles about this and about her medications. He was made aware. She is requesting her sixto and nystatin be applied when she gets ready for bed.
[2020-06-16] MEDS: MELATONIN 10 MG TABLET PO (21:11)
[2020-06-16] MEDS: Furosemide 40 MG Tablet PO (21:11)
[2020-06-17 04:59] VITALS: BP 88/37; PULSE 75; RESP 16; TEMP 36.2; O2SAT 97
[2020-06-17] MEDS: Magnesium Hydroxide 30 ML UDC PO (05:03)
[2020-06-17] MEDS: Acetaminophen 500 MG Tablet 1000 MG PO ×3 (05:03→21:15)
[2020-06-17] MEDS: Senna/Docusate Sodium 1 Tablet 2 TABLET PO ×2 (05:03→16:46)
[2020-06-17] MEDS: Paroxetine 20 MG Tablet 30 MG PO (05:04)
[2020-06-17] MEDS: buPROPion (SR) 150 MG Tablet.SA PO ×2 (05:04→16:47)
[2020-06-17] MEDS: Famotidine 20 MG Tablet PO ×2 (05:04→16:45)
[2020-06-17] MEDS: Nystatin Powder 15gm Bottle 1 APPLIC TOPICAL ×2 (05:05→16:44)
[2020-06-17] MEDS: Menthol/Lanolin/Calamine/Znox 113 GM Tube 1 APPLIC TOPICAL ×2 (05:05→16:43)
[2020-06-17] MEDS: Ketoconazole Cream 1 APPLIC TOPICAL ×2 (05:06→16:44)
[2020-06-17 05:53] LABS: Absolute Lymphocyte Count 2.77 X10^3/uL (0.83-4.51); Absolute Neutrophil Count 2.2 X10^3/uL (2.0-7.7); Basophil# 0.03 X10^3/uL; Basophil% 0.5 % (0-1); Eosinophil# 0.12 X10^3/uL; Eosinophils% 2.1 % (0-5); Hematocrit 36.7 % (37-47); Hemoglobin 11.2 g/dL (12.0-15.0); Lymphocyte # 2.77 X10^3/ul (4.0); Lymphocyte % 49.6 % (19-41); Mean Corp Hgb Conc 30.5 g/dL (32-36); Mean Corpuscular Hgb 27.7 pg (27.0-32.0); Mean Corpuscular Volume 90.8 fL (81-99); Mean Platelet Vol. 9.6 fl (6.2-12.0); Monocyte# 0.48 X10^3/uL; Monocyte% 8.6 % (0-10); NRBC Flagged by Analyzer 0 % (0-5); Neutrophil # 2.18 X10^3/uL (2.7-7.7); Platelet Count 241 K/mm3 (150-450); RBC Distribution Width CV 13.9 % (11.6-14.6); RBC Distribution Width SD 47.3 fl (35.1-43.9); Red Blood Count 4.04 M/mm3 (4.2-5.4); White Blood Count 5.6 K/mm3 (4.4-11.0)
[2020-06-17 06:17] LABS: Anion Gap 5 (5-15); BUN 41 mg/dL (7-18); BUN/Creat Ratio 42.9 RATIO (10-20); Calcium,Total 9.3 mg/dL (8.5-10.1); Chloride 101 mmol/L (98-107); Creatinine, Serum 0.96 mg/dL (0.55-1.02); EST Glomerular Filtration Rate 61 mL/min (>60); Est Glom Filt Rate - Afr Amer 74 mL/min (>60); Estimated Creatinine Clearance 66.57 ml/min; Glucose 86 mg/dL (74-106); Potassium 3.5 mmol/L (3.5-5.1); Sodium Level 140 mmol/L (136-145)
[2020-06-17] MEDS: Iron Polysaccharide Complex 150 MG CAPSULE PO (08:03)
[2020-06-17] MEDS: Calcium Carb/Vitamin D 1 TABLET Tablet PO ×2 (08:03→16:43)
[2020-06-17 14:17] VITALS: BP 105/45; PULSE 79; RESP 18; TEMP 36.7; O2SAT 92
[2020-06-17 14:27] VITALS: PULSE 79; RESP 18; O2SAT 92
[2020-06-17] MEDS: oxyCODONE 5 MG Tablet PO (15:36)
[2020-06-17] MEDS: MELATONIN 10 MG TABLET PO (21:15)
[2020-06-17] MEDS: Furosemide 40 MG Tablet PO (21:15)
[2020-06-18 05:10] VITALS: BP 102/50; PULSE 74; RESP 16; TEMP 36.2; O2SAT 93
[2020-06-18] MEDS: Menthol/Lanolin/Calamine/Znox 113 GM Tube 1 APPLIC TOPICAL ×2 (05:13→17:37)
[2020-06-18] MEDS: Senna/Docusate Sodium 1 Tablet 2 TABLET PO ×2 (05:13→17:35)
[2020-06-18] MEDS: Nystatin Powder 15gm Bottle 1 APPLIC TOPICAL ×2 (05:13→17:39)
[2020-06-18] MEDS: Acetaminophen 500 MG Tablet 1000 MG PO ×3 (05:13→21:19)
[2020-06-18] MEDS: buPROPion (SR) 150 MG Tablet.SA PO ×2 (05:14→17:36)
[2020-06-18] MEDS: Carvedilol 12.5 MG Tablet PO ×2 (05:14→17:35)
[2020-06-18] MEDS: Paroxetine 20 MG Tablet 30 MG PO (05:14)
[2020-06-18] MEDS: Famotidine 20 MG Tablet PO ×2 (05:14→17:35)
[2020-06-18] MEDS: Ketoconazole Cream 1 APPLIC TOPICAL ×2 (05:15→17:36)
[2020-06-18] MEDS: Iron Polysaccharide Complex 150 MG CAPSULE PO (07:53)
[2020-06-18] MEDS: Calcium Carb/Vitamin D 1 TABLET Tablet PO ×2 (07:53→17:36)
[2020-06-18 15:38] VITALS: BP 112/57; PULSE 87; RESP 16; TEMP 36.8; O2SAT 91
[2020-06-18] MEDS: oxyCODONE 5 MG Tablet PO (15:48)
[2020-06-18 15:50] VITALS: RESP 16; O2SAT 91
[2020-06-18] MEDS: MELATONIN 10 MG TABLET PO (21:20)
[2020-06-18] MEDS: Furosemide 40 MG Tablet PO (21:21)
[2020-06-19 03:38] VITALS: BP 104/46; PULSE 69; RESP 18; TEMP 36.6; O2SAT 93
[2020-06-19] MEDS: oxyCODONE 5 MG Tablet PO ×3 (03:40→22:15)
[2020-06-19] MEDS: Senna/Docusate Sodium 1 Tablet 2 TABLET PO ×2 (05:04→18:27)
[2020-06-19] MEDS: buPROPion (SR) 150 MG Tablet.SA PO ×2 (05:04→18:28)
[2020-06-19] MEDS: Acetaminophen 500 MG Tablet 1000 MG PO ×3 (05:04→22:15)
[2020-06-19] MEDS: Ketoconazole Cream 1 APPLIC TOPICAL ×2 (05:05→18:30)
[2020-06-19] MEDS: Carvedilol 12.5 MG Tablet PO ×2 (05:05→18:28)
[2020-06-19] MEDS: Paroxetine 20 MG Tablet 30 MG PO (05:05)
[2020-06-19] MEDS: Famotidine 20 MG Tablet PO ×2 (05:05→18:31)
[2020-06-19] MEDS: Nystatin Powder 15gm Bottle 1 APPLIC TOPICAL ×2 (05:07→18:30)
[2020-06-19] MEDS: Menthol/Lanolin/Calamine/Znox 113 GM Tube 1 APPLIC TOPICAL ×2 (05:07→18:31)
[2020-06-19] MEDS: Calcium Carb/Vitamin D 1 TABLET Tablet PO ×2 (08:17→18:27)
[2020-06-19] MEDS: Iron Polysaccharide Complex 150 MG CAPSULE PO (08:17)
--- NOTE | 2020-06-19 08:20 | EKG12_ITS ---
Test Reason : Blood Pressure : / mmHG Vent. Rate : 084 BPM Atrial Rate : 085 BPM P-R Int : 296 ms QRS Dur : 104 ms QT Int : 320 ms P-R-T Axes : 000 -51 128 degrees QTc Int : 378 ms Sinus rhythm with 1st degree A-V block Left anterior fascicular block ST & T wave abnormality, consider lateral ischemia Abnormal ECG When compared with ECG of 09-MAY-2020 18:18, MO interval has increased ST now depressed in Lateral leads Nonspecific T wave abnormality, worse in Lateral leads QT has shortened Confirmed by ADOLFO TAFOYA, ANALI ([id number]), editorial specialist SHAGUFTA BEAN ([id number]) on 06/30/2020 9:42:36 AM Referred By: JENNIFER Confirmed By:CHI MATA MD
[2020-06-19 08:22] VITALS: BP 91/36; PULSE 79; RESP 16; TEMP 36.4; O2SAT 94
--- NOTE | 2020-06-19 08:25 | NURSING ---
Addendum entered by Milagro Simmons 06/19/20 11:40: pt denies chest pain since being up in chair. it only happened once this am with inspiration, no more since. will continue to monitor. will update dr coles Original Note: pt c/o chest pain intermittently with deep breaths, vitals stable. pt denies SOB or any other c/o. states it just started this AM. pt just ate brkfst and pt noted to laying in bed pretty flat after eating meal. stat EKG called for RT.
[2020-06-19 10:00] VITALS: RESP 18
[2020-06-19 14:43] VITALS: BP 108/47; PULSE 84; RESP 18; TEMP 36.4; O2SAT 94
[2020-06-19] MEDS: Furosemide 40 MG Tablet PO (18:28)
[2020-06-19] MEDS: MELATONIN 10 MG TABLET PO (22:15)
[2020-06-20 05:55] VITALS: BP 130/58; PULSE 69; RESP 16; TEMP 36.2; O2SAT 95
[2020-06-20] MEDS: oxyCODONE 5 MG Tablet PO ×3 (05:56→21:32)
[2020-06-20] MEDS: Senna/Docusate Sodium 1 Tablet 2 TABLET PO ×2 (05:57→16:28)
[2020-06-20] MEDS: Carvedilol 12.5 MG Tablet PO ×2 (05:57→16:28)
[2020-06-20] MEDS: Acetaminophen 500 MG Tablet 1000 MG PO ×3 (05:57→21:24)
[2020-06-20] MEDS: Famotidine 20 MG Tablet PO ×2 (05:57→16:29)
[2020-06-20] MEDS: Paroxetine 20 MG Tablet 30 MG PO (05:57)
[2020-06-20] MEDS: buPROPion (SR) 150 MG Tablet.SA PO ×2 (05:57→16:28)
[2020-06-20] MEDS: Nystatin Powder 15gm Bottle 1 APPLIC TOPICAL ×2 (05:59→16:30)
[2020-06-20] MEDS: Menthol/Lanolin/Calamine/Znox 113 GM Tube 1 APPLIC TOPICAL ×2 (06:00→16:31)
[2020-06-20] MEDS: Ketoconazole Cream 1 APPLIC TOPICAL ×2 (06:00→16:29)
[2020-06-20] MEDS: Calcium Carb/Vitamin D 1 TABLET Tablet PO ×2 (08:03→16:29)
[2020-06-20] MEDS: Iron Polysaccharide Complex 150 MG CAPSULE PO (08:03)
[2020-06-20 14:39] VITALS: BP 103/53; PULSE 82; RESP 18; TEMP 36.4; O2SAT 94
[2020-06-20] MEDS: MELATONIN 10 MG TABLET PO (21:26)
[2020-06-20] MEDS: Furosemide 40 MG Tablet PO (21:26)
[2020-06-21 05:25] VITALS: BP 111/52; PULSE 65; RESP 16; TEMP 36.7; O2SAT 92
[2020-06-21] MEDS: Acetaminophen 500 MG Tablet 1000 MG PO ×3 (05:26→22:05)
[2020-06-21] MEDS: Famotidine 20 MG Tablet PO ×2 (05:26→16:16)
[2020-06-21] MEDS: Carvedilol 12.5 MG Tablet PO ×2 (05:27→16:16)
[2020-06-21] MEDS: Senna/Docusate Sodium 1 Tablet 2 TABLET PO ×2 (05:27→16:17)
[2020-06-21] MEDS: Paroxetine 20 MG Tablet 30 MG PO (05:27)
[2020-06-21] MEDS: buPROPion (SR) 150 MG Tablet.SA PO ×2 (05:27→16:16)
[2020-06-21] MEDS: Ketoconazole Cream 1 APPLIC TOPICAL ×2 (05:29→16:18)
[2020-06-21] MEDS: Nystatin Powder 15gm Bottle 1 APPLIC TOPICAL ×2 (05:29→16:18)
[2020-06-21] MEDS: Menthol/Lanolin/Calamine/Znox 113 GM Tube 1 APPLIC TOPICAL ×2 (05:30→16:19)
[2020-06-21] MEDS: Calcium Carb/Vitamin D 1 TABLET Tablet PO ×2 (07:59→16:16)
[2020-06-21] MEDS: Iron Polysaccharide Complex 150 MG CAPSULE PO (07:59)
[2020-06-21] MEDS: oxyCODONE 5 MG Tablet PO ×2 (08:02→16:21)
[2020-06-21 13:39] VITALS: PULSE 82; RESP 18; O2SAT 96
[2020-06-21 16:38] VITALS: BP 108/54; PULSE 75; RESP 16; TEMP 36.3; O2SAT 93
[2020-06-21] MEDS: Furosemide 40 MG Tablet PO (22:05)
[2020-06-21] MEDS: MELATONIN 10 MG TABLET PO (22:05)
[2020-06-22] MEDS: oxyCODONE 5 MG Tablet PO ×2 (04:53→22:35)
[2020-06-22] MEDS: Acetaminophen 500 MG Tablet 1000 MG PO ×3 (04:53→22:36)
[2020-06-22] MEDS: buPROPion (SR) 150 MG Tablet.SA PO ×2 (04:54→17:06)
[2020-06-22] MEDS: Senna/Docusate Sodium 1 Tablet 2 TABLET PO (04:54)
[2020-06-22] MEDS: Carvedilol 12.5 MG Tablet PO ×2 (04:54→17:06)
[2020-06-22] MEDS: Famotidine 20 MG Tablet PO ×2 (04:54→17:06)
[2020-06-22 04:55] VITALS: BP 102/59; PULSE 78; RESP 16; TEMP 36.1; O2SAT 93
[2020-06-22] MEDS: Paroxetine 20 MG Tablet 30 MG PO (04:55)
[2020-06-22] MEDS: Ketoconazole Cream 1 APPLIC TOPICAL ×2 (04:56→17:09)
[2020-06-22] MEDS: Nystatin Powder 15gm Bottle 1 APPLIC TOPICAL ×2 (04:57→17:09)
[2020-06-22] MEDS: Menthol/Lanolin/Calamine/Znox 113 GM Tube 1 APPLIC TOPICAL ×2 (04:57→17:08)
[2020-06-22] MEDS: Iron Polysaccharide Complex 150 MG CAPSULE PO (07:44)
[2020-06-22] MEDS: Calcium Carb/Vitamin D 1 TABLET Tablet PO ×2 (07:44→17:06)
[2020-06-22 15:20] VITALS: BP 101/54; PULSE 57; RESP 20; TEMP 36.9; O2SAT 100
[2020-06-22] MEDS: MELATONIN 10 MG TABLET PO (22:35)
[2020-06-22] MEDS: Furosemide 40 MG Tablet PO (22:37)
[2020-06-23 04:00] VITALS: BP 100/55; PULSE 65; RESP 15; TEMP 36.5; O2SAT 93
[2020-06-23] MEDS: Acetaminophen 500 MG Tablet 1000 MG PO ×3 (04:30→21:53)
[2020-06-23] MEDS: Famotidine 20 MG Tablet PO ×2 (04:30→17:20)
[2020-06-23] MEDS: Carvedilol 12.5 MG Tablet PO ×2 (04:30→17:20)
[2020-06-23] MEDS: Ketoconazole Cream 1 APPLIC TOPICAL ×2 (04:31→18:01)
[2020-06-23] MEDS: Nystatin Powder 15gm Bottle 1 APPLIC TOPICAL ×2 (04:32→18:02)
[2020-06-23] MEDS: Paroxetine 20 MG Tablet 30 MG PO (04:33)
[2020-06-23] MEDS: buPROPion (SR) 150 MG Tablet.SA PO ×2 (04:35→17:20)
[2020-06-23] MEDS: Menthol/Lanolin/Calamine/Znox 113 GM Tube 1 APPLIC TOPICAL ×2 (04:58→18:01)
[2020-06-23] MEDS: Calcium Carb/Vitamin D 1 TABLET Tablet PO ×2 (08:06→17:20)
[2020-06-23] MEDS: Iron Polysaccharide Complex 150 MG CAPSULE PO (08:06)
[2020-06-23 15:00] VITALS: BP 94/46; PULSE 75; RESP 16; TEMP 36.3; O2SAT 93
[2020-06-23 15:14] VITALS: PULSE 61; RESP 18; O2SAT 96
[2020-06-23] MEDS: Senna/Docusate Sodium 1 Tablet 2 TABLET PO (17:20)
[2020-06-23] MEDS: oxyCODONE 5 MG Tablet PO (21:52)
[2020-06-23] MEDS: MELATONIN 10 MG TABLET PO (21:53)
[2020-06-23] MEDS: Furosemide 40 MG Tablet PO (21:54)
[2020-06-24 05:37] VITALS: BP 112/48; PULSE 70; RESP 16; TEMP 36; O2SAT 93
[2020-06-24 05:37] LABS: Absolute Lymphocyte Count 2.84 X10^3/uL (0.83-4.51); Basophil# 0.03 X10^3/uL; Basophil% 0.6 % (0-1); Eosinophil# 0.11 X10^3/uL; Hematocrit 36.8 % (37-47); Hemoglobin 11.6 g/dL (12.0-15.0); Lymphocyte # 2.84 X10^3/ul (4.0); Lymphocyte % 52.1 % (19-41); Mean Corp Hgb Conc 31.5 g/dL (32-36); Mean Corpuscular Hgb 28.4 pg (27.0-32.0); Mean Platelet Vol. 9.5 fl (6.2-12.0); Monocyte# 0.44 X10^3/uL; Monocyte% 8.1 % (0-10); NRBC Flagged by Analyzer 0 % (0-5); Neutrophil # 2.02 X10^3/uL (2.7-7.7); Platelet Count 238 K/mm3 (150-450); RBC Distribution Width CV 13.7 % (11.6-14.6); RBC Distribution Width SD 45.6 fl (35.1-43.9); Red Blood Count 4.09 M/mm3 (4.2-5.4); White Blood Count 5.5 K/mm3 (4.4-11.0)
[2020-06-24] MEDS: Acetaminophen 500 MG Tablet 1000 MG PO ×3 (05:40→22:36)
[2020-06-24] MEDS: Carvedilol 12.5 MG Tablet PO ×2 (05:40→17:05)
[2020-06-24] MEDS: Famotidine 20 MG Tablet PO ×2 (05:40→17:04)
[2020-06-24] MEDS: Senna/Docusate Sodium 1 Tablet 2 TABLET PO (05:40)
[2020-06-24] MEDS: Paroxetine 20 MG Tablet 30 MG PO (05:41)
[2020-06-24] MEDS: buPROPion (SR) 150 MG Tablet.SA PO ×2 (05:42→17:04)
[2020-06-24] MEDS: Nystatin Powder 15gm Bottle 1 APPLIC TOPICAL ×2 (05:44→17:03)
[2020-06-24] MEDS: Ketoconazole Cream 1 APPLIC TOPICAL ×2 (05:44→17:03)
[2020-06-24] MEDS: Menthol/Lanolin/Calamine/Znox 113 GM Tube 1 APPLIC TOPICAL ×2 (05:45→17:04)
[2020-06-24 06:01] LABS: Anion Gap 5 (5-15); BUN 32 mg/dL (7-18); BUN/Creat Ratio 29.4 RATIO (10-20); Calcium,Total 9.2 mg/dL (8.5-10.1); Chloride 102 mmol/L (98-107); Creatinine, Serum 1.09 mg/dL (0.55-1.02); EST Glomerular Filtration Rate 52 mL/min (>60); Est Glom Filt Rate - Afr Amer 63 mL/min (>60); Estimated Creatinine Clearance 59.99 ml/min; Glucose 88 mg/dL (74-106); Potassium 3.3 mmol/L (3.5-5.1); Sodium Level 141 mmol/L (136-145)
[2020-06-24] MEDS: Calcium Carb/Vitamin D 1 TABLET Tablet PO ×2 (08:05→17:04)
[2020-06-24] MEDS: Iron Polysaccharide Complex 150 MG CAPSULE PO (08:05)
[2020-06-24] MEDS: oxyCODONE 5 MG Tablet PO ×2 (08:58→22:35)
[2020-06-24 15:09] VITALS: BP 108/51; PULSE 72; RESP 18; TEMP 36.1; O2SAT 94
[2020-06-24] MEDS: MELATONIN 10 MG TABLET PO (22:36)
[2020-06-24] MEDS: Furosemide 40 MG Tablet PO (22:36)
[2020-06-25 06:32] VITALS: BP 120/65; PULSE 68; RESP 16; TEMP 36.6; O2SAT 95
[2020-06-25] MEDS: Paroxetine 20 MG Tablet 30 MG PO (06:33)
[2020-06-25] MEDS: Acetaminophen 500 MG Tablet 1000 MG PO ×3 (06:34→22:26)
[2020-06-25] MEDS: Famotidine 20 MG Tablet PO ×2 (06:34→17:03)
[2020-06-25] MEDS: Carvedilol 12.5 MG Tablet PO ×2 (06:34→17:03)
[2020-06-25] MEDS: Senna/Docusate Sodium 1 Tablet 2 TABLET PO ×2 (06:34→17:07)
[2020-06-25] MEDS: buPROPion (SR) 150 MG Tablet.SA PO ×2 (06:35→17:03)
[2020-06-25] MEDS: Nystatin Powder 15gm Bottle 1 APPLIC TOPICAL ×2 (06:37→20:50)
[2020-06-25] MEDS: Ketoconazole Cream 1 APPLIC TOPICAL ×2 (06:37→20:51)
[2020-06-25] MEDS: Menthol/Lanolin/Calamine/Znox 113 GM Tube 1 APPLIC TOPICAL ×2 (06:37→17:05)
[2020-06-25] MEDS: Iron Polysaccharide Complex 150 MG CAPSULE PO (07:45)
[2020-06-25] MEDS: Calcium Carb/Vitamin D 1 TABLET Tablet PO ×2 (07:45→17:03)
[2020-06-25 11:44] VITALS: PULSE 71; RESP 18; O2SAT 96
[2020-06-25] MEDS: oxyCODONE 5 MG Tablet PO ×2 (12:00→22:26)
[2020-06-25 14:28] VITALS: BP 119/65; PULSE 70; RESP 17; TEMP 36.6; O2SAT 96
[2020-06-25] MEDS: MELATONIN 10 MG TABLET PO (22:26)
[2020-06-25] MEDS: Furosemide 40 MG Tablet PO (22:26)
[2020-06-26 06:11] VITALS: BP 112/51; PULSE 67; RESP 16; TEMP 36.9; O2SAT 93
[2020-06-26] MEDS: buPROPion (SR) 150 MG Tablet.SA PO ×2 (06:13→16:58)
[2020-06-26] MEDS: Famotidine 20 MG Tablet PO ×2 (06:13→16:59)
[2020-06-26] MEDS: Paroxetine 20 MG Tablet 30 MG PO (06:13)
[2020-06-26] MEDS: Acetaminophen 500 MG Tablet 1000 MG PO ×3 (06:13→22:02)
[2020-06-26] MEDS: Carvedilol 12.5 MG Tablet PO ×2 (06:13→16:59)
[2020-06-26] MEDS: Ketoconazole Cream 1 APPLIC TOPICAL ×2 (06:15→17:00)
[2020-06-26] MEDS: Menthol/Lanolin/Calamine/Znox 113 GM Tube 1 APPLIC TOPICAL ×2 (06:15→17:00)
[2020-06-26] MEDS: Nystatin Powder 15gm Bottle 1 APPLIC TOPICAL ×2 (06:15→17:01)
[2020-06-26 06:40] LABS: Anion Gap 5 (5-15); BUN 37 mg/dL (7-18); BUN/Creat Ratio 40.8 RATIO (10-20); Calcium,Total 9.3 mg/dL (8.5-10.1); Chloride 103 mmol/L (98-107); Creatinine, Serum 0.91 mg/dL (0.55-1.02); EST Glomerular Filtration Rate 65 mL/min (>60); Est Glom Filt Rate - Afr Amer 78 mL/min (>60); Glucose 79 mg/dL (74-106); Potassium 3.5 mmol/L (3.5-5.1); Sodium Level 140 mmol/L (136-145)
[2020-06-26] MEDS: Calcium Carb/Vitamin D 1 TABLET Tablet PO ×2 (08:11→16:59)
[2020-06-26] MEDS: Iron Polysaccharide Complex 150 MG CAPSULE PO (08:11)
[2020-06-26] MEDS: oxyCODONE 5 MG Tablet PO ×3 (08:15→22:02)
[2020-06-26 12:59] VITALS: BP 123/66; PULSE 65; RESP 16; TEMP 36.6; O2SAT 92
--- NOTE | 2020-06-26 13:12 | NURSING ---
Therapy called Dr. Arevalo's office and they stated the patient is now Partial weight bearing on the right lower extremity. pt is to wear a brace when OOB.
[2020-06-26] MEDS: Senna/Docusate Sodium 1 Tablet 2 TABLET PO (16:58)
[2020-06-26] MEDS: Furosemide 40 MG Tablet PO (22:02)
[2020-06-26] MEDS: MELATONIN 10 MG TABLET PO (22:03)
[2020-06-27 04:37] VITALS: BP 118/65; PULSE 66; RESP 16; TEMP 35.9; O2SAT 92
[2020-06-27] MEDS: Famotidine 20 MG Tablet PO ×2 (04:39→18:00)
[2020-06-27] MEDS: oxyCODONE 5 MG Tablet PO ×4 (04:39→22:01)
[2020-06-27] MEDS: Acetaminophen 500 MG Tablet 1000 MG PO ×3 (04:39→21:57)
[2020-06-27] MEDS: Carvedilol 12.5 MG Tablet PO ×2 (04:39→17:59)
[2020-06-27] MEDS: buPROPion (SR) 150 MG Tablet.SA PO ×2 (04:40→17:59)
[2020-06-27] MEDS: Senna/Docusate Sodium 1 Tablet 2 TABLET PO ×2 (04:40→17:59)
[2020-06-27] MEDS: Menthol/Lanolin/Calamine/Znox 113 GM Tube 1 APPLIC TOPICAL ×2 (04:40→18:01)
[2020-06-27] MEDS: Paroxetine 20 MG Tablet 30 MG PO (04:40)
[2020-06-27] MEDS: Nystatin Powder 15gm Bottle 1 APPLIC TOPICAL ×2 (04:41→18:01)
[2020-06-27] MEDS: Ketoconazole Cream 1 APPLIC TOPICAL ×2 (04:43→18:02)
[2020-06-27] MEDS: Iron Polysaccharide Complex 150 MG CAPSULE PO (08:11)
[2020-06-27] MEDS: Calcium Carb/Vitamin D 1 TABLET Tablet PO ×2 (08:11→17:59)
[2020-06-27 10:36] VITALS: PULSE 69; RESP 16; O2SAT 94
[2020-06-27 14:40] VITALS: BP 97/50; PULSE 69; RESP 16; TEMP 36.4; O2SAT 94
--- NOTE | 2020-06-27 16:25 | NURSING ---
Resident and sister, Yajaira, notified of staff member testing positive for COVID.
[2020-06-27] MEDS: MELATONIN 10 MG TABLET PO (21:57)
[2020-06-27] MEDS: Furosemide 40 MG Tablet PO (21:57)
[2020-06-28 04:23] VITALS: BP 103/62; PULSE 70; RESP 16; TEMP 36.1; O2SAT 93
[2020-06-28] MEDS: oxyCODONE 5 MG Tablet PO ×4 (04:26→22:25)
[2020-06-28] MEDS: Magnesium Hydroxide 30 ML UDC PO (04:26)
[2020-06-28] MEDS: Paroxetine 20 MG Tablet 30 MG PO (04:26)
[2020-06-28] MEDS: Famotidine 20 MG Tablet PO ×2 (04:27→16:58)
[2020-06-28] MEDS: Senna/Docusate Sodium 1 Tablet 2 TABLET PO ×2 (04:27→16:58)
[2020-06-28] MEDS: Carvedilol 12.5 MG Tablet PO ×2 (04:28→16:58)
[2020-06-28] MEDS: buPROPion (SR) 150 MG Tablet.SA PO ×2 (04:28→16:58)
[2020-06-28] MEDS: Acetaminophen 500 MG Tablet 1000 MG PO ×3 (04:28→22:26)
[2020-06-28] MEDS: Nystatin Powder 15gm Bottle 1 APPLIC TOPICAL ×2 (06:04→16:58)
[2020-06-28] MEDS: Menthol/Lanolin/Calamine/Znox 113 GM Tube 1 APPLIC TOPICAL ×2 (06:05→16:58)
[2020-06-28] MEDS: Iron Polysaccharide Complex 150 MG CAPSULE PO (08:33)
[2020-06-28] MEDS: Calcium Carb/Vitamin D 1 TABLET Tablet PO ×2 (08:33→16:56)
[2020-06-28] MEDS: Ketoconazole Cream 1 APPLIC TOPICAL ×2 (08:34→17:00)
[2020-06-28 14:17] VITALS: BP 104/57; PULSE 76; RESP 18; TEMP 36.5; O2SAT 95
[2020-06-28] MEDS: Furosemide 40 MG Tablet PO (16:58)
[2020-06-28] MEDS: MELATONIN 10 MG TABLET PO (22:27)
[2020-06-29 05:13] VITALS: BP 103/55; PULSE 62; RESP 16; TEMP 36.4; O2SAT 95
[2020-06-29] MEDS: oxyCODONE 5 MG Tablet PO ×4 (05:14→21:56)
[2020-06-29] MEDS: Acetaminophen 500 MG Tablet 1000 MG PO ×3 (05:14→21:56)
[2020-06-29] MEDS: Carvedilol 12.5 MG Tablet PO ×2 (05:15→16:45)
[2020-06-29] MEDS: Paroxetine 20 MG Tablet 30 MG PO (05:15)
[2020-06-29] MEDS: Senna/Docusate Sodium 1 Tablet 2 TABLET PO ×2 (05:15→16:47)
[2020-06-29] MEDS: Famotidine 20 MG Tablet PO ×2 (05:16→16:45)
[2020-06-29] MEDS: buPROPion (SR) 150 MG Tablet.SA PO ×2 (05:16→16:46)
[2020-06-29] MEDS: Ketoconazole Cream 1 APPLIC TOPICAL ×2 (05:17→16:46)
[2020-06-29] MEDS: Nystatin Powder 15gm Bottle 1 APPLIC TOPICAL ×2 (05:17→16:44)
[2020-06-29] MEDS: Menthol/Lanolin/Calamine/Znox 113 GM Tube 1 APPLIC TOPICAL ×2 (05:18→16:44)
[2020-06-29] MEDS: Calcium Carb/Vitamin D 1 TABLET Tablet PO ×2 (08:15→16:43)
[2020-06-29] MEDS: Iron Polysaccharide Complex 150 MG CAPSULE PO (08:15)
[2020-06-29 10:32] VITALS: PULSE 68; RESP 18; O2SAT 92
[2020-06-29 13:52] VITALS: BP 105/62; PULSE 68; RESP 18; TEMP 36.9; O2SAT 92
[2020-06-29] MEDS: Furosemide 40 MG Tablet PO (21:56)
[2020-06-29] MEDS: MELATONIN 10 MG TABLET PO (21:56)
[2020-06-30 04:29] VITALS: BP 106/56; PULSE 61; RESP 16; TEMP 36.6; O2SAT 97
[2020-06-30] MEDS: Acetaminophen 500 MG Tablet 1000 MG PO ×3 (04:30→22:02)
[2020-06-30] MEDS: oxyCODONE 5 MG Tablet PO ×4 (04:30→22:07)
[2020-06-30] MEDS: Senna/Docusate Sodium 1 Tablet 2 TABLET PO ×2 (04:30→17:17)
[2020-06-30] MEDS: buPROPion (SR) 150 MG Tablet.SA PO ×2 (04:31→17:17)
[2020-06-30] MEDS: Paroxetine 20 MG Tablet 30 MG PO (04:31)
[2020-06-30] MEDS: Carvedilol 12.5 MG Tablet PO ×2 (04:31→17:16)
[2020-06-30] MEDS: Famotidine 20 MG Tablet PO ×2 (04:31→17:17)
[2020-06-30] MEDS: Menthol/Lanolin/Calamine/Znox 113 GM Tube 1 APPLIC TOPICAL ×2 (04:34→22:05)
[2020-06-30] MEDS: Nystatin Powder 15gm Bottle 1 APPLIC TOPICAL ×2 (04:34→22:04)
[2020-06-30] MEDS: Calcium Carb/Vitamin D 1 TABLET Tablet PO ×2 (08:09→17:16)
[2020-06-30] MEDS: Iron Polysaccharide Complex 150 MG CAPSULE PO (08:10)
[2020-06-30] MEDS: Ketoconazole Cream 1 APPLIC TOPICAL ×2 (11:18→22:05)
[2020-06-30 14:49] VITALS: BP 113/71; PULSE 76; RESP 17; TEMP 36; O2SAT 95
--- NOTE | 2020-06-30 18:13 | NURSING ---
Resident likes to have her cream and powders to neftaly area on after she gets ready for bed. Times changed to SEP.
[2020-06-30] MEDS: MELATONIN 10 MG TABLET PO (22:03)
[2020-06-30] MEDS: Furosemide 40 MG Tablet PO (22:03)
[2020-07-01 04:41] VITALS: BP 105/53; PULSE 74; RESP 16; TEMP 36; O2SAT 94
[2020-07-01] MEDS: oxyCODONE 5 MG Tablet PO ×4 (04:43→22:28)
[2020-07-01] MEDS: Acetaminophen 500 MG Tablet 1000 MG PO ×3 (04:43→22:28)
[2020-07-01] MEDS: Famotidine 20 MG Tablet PO ×2 (04:44→17:06)
[2020-07-01] MEDS: Senna/Docusate Sodium 1 Tablet 2 TABLET PO ×2 (04:44→17:06)
[2020-07-01] MEDS: buPROPion (SR) 150 MG Tablet.SA PO ×2 (04:44→17:07)
[2020-07-01] MEDS: Paroxetine 20 MG Tablet 30 MG PO (04:44)
[2020-07-01] MEDS: Carvedilol 12.5 MG Tablet PO ×2 (04:45→17:07)
[2020-07-01] MEDS: Menthol/Lanolin/Calamine/Znox 113 GM Tube 1 APPLIC TOPICAL ×2 (04:47→22:32)
[2020-07-01] MEDS: Nystatin Powder 15gm Bottle 1 APPLIC TOPICAL ×2 (04:47→22:31)
[2020-07-01 05:25] LABS: Absolute Neutrophil Count 2.1 X10^3/uL (2.0-7.7); Basophil# 0.03 X10^3/uL; Basophil% 0.6 % (0-1); Eosinophil# 0.08 X10^3/uL; Eosinophils% 1.5 % (0-5); Hemoglobin 12.4 g/dL (12.0-15.0); Lymphocyte % 50.8 % (19-41); Mean Corpuscular Hgb 27.7 pg (27.0-32.0); Mean Corpuscular Volume 89.3 fL (81-99); Monocyte# 0.38 X10^3/uL; Monocyte% 7.2 % (0-10); NRBC Flagged by Analyzer 0 % (0-5); Neutrophil # 2.11 X10^3/uL (2.7-7.7); Neutrophil % 39.7 % (47-70); Platelet Count 252 K/mm3 (150-450); RBC Distribution Width CV 13.2 % (11.6-14.6); RBC Distribution Width SD 43.6 fl (35.1-43.9); Red Blood Count 4.48 M/mm3 (4.2-5.4); White Blood Count 5.3 K/mm3 (4.4-11.0)
[2020-07-01 05:41] LABS: Anion Gap 5 (5-15); BUN 39 mg/dL (7-18); Calcium,Total 9.2 mg/dL (8.5-10.1); Chloride 103 mmol/L (98-107); Creatinine, Serum 0.98 mg/dL (0.55-1.02); EST Glomerular Filtration Rate 60 mL/min (>60); Est Glom Filt Rate - Afr Amer 72 mL/min (>60); Estimated Creatinine Clearance 64.72 ml/min; Glucose 83 mg/dL (74-106); Potassium 3.6 mmol/L (3.5-5.1); Sodium Level 140 mmol/L (136-145)
[2020-07-01] MEDS: Calcium Carb/Vitamin D 1 TABLET Tablet PO ×2 (07:58→17:06)
[2020-07-01] MEDS: Iron Polysaccharide Complex 150 MG CAPSULE PO (07:59)
[2020-07-01] MEDS: Ketoconazole Cream 1 APPLIC TOPICAL ×2 (08:00→22:30)
[2020-07-01 14:27] VITALS: BP 101/48; PULSE 69; RESP 16; TEMP 36.2; O2SAT 97
--- NOTE | 2020-07-01 15:57 | CHAPLAIN ---
Type of Pastoral Visit ___ Initial Visit _x__ Follow-up Visit ___ On-call Visit ___ General Patient Visit ___ Spiritual Assessment ___ Family Conference ___ Bereavement ___ Rapid Response ___ Code Blue ___ Other (describe below) Pastoral Care Referral From _x__ Patient ___ Family ___ Nurse ___ Physician ___ Glass Vial Bending Conveyor Feeder ___ Germ Drier ___ Other (describe below) Sacrament/Intervention _x__ Active listening ___ Anointing ___ Latter Day ___ Bereavement ___ Communion ___ Shivani exploration ___ ___ Life review _x__ Prayer ___ Reconciliation ___ Sacrament of Sick _x__ Supportive presence ___ Wedding ___ Other (describe below) Pastoral Comments patient admits that she is longing for home and that she is disappointed to miss Jessica; pt also says that once home she does not want lots of visitors but just be home with ; pt is welcoming of prayer; pt has low affect but always seems to keep talking and having conversation
[2020-07-01] MEDS: Furosemide 40 MG Tablet PO (22:29)
[2020-07-01] MEDS: MELATONIN 10 MG TABLET PO (22:29)
[2020-07-02] MEDS: oxyCODONE 5 MG Tablet PO ×4 (05:00→22:21)
[2020-07-02] MEDS: buPROPion (SR) 150 MG Tablet.SA PO ×2 (05:00→16:56)
[2020-07-02] MEDS: Nystatin Powder 15gm Bottle 1 APPLIC TOPICAL ×2 (05:00→22:26)
[2020-07-02] MEDS: Paroxetine 20 MG Tablet 30 MG PO (05:00)
[2020-07-02] MEDS: Menthol/Lanolin/Calamine/Znox 113 GM Tube 1 APPLIC TOPICAL ×2 (05:00→22:26)
[2020-07-02] MEDS: Senna/Docusate Sodium 1 Tablet 2 TABLET PO ×2 (05:00→16:58)
[2020-07-02] MEDS: Carvedilol 12.5 MG Tablet PO ×2 (05:00→16:58)
[2020-07-02] MEDS: Acetaminophen 500 MG Tablet 1000 MG PO ×3 (05:00→22:22)
[2020-07-02] MEDS: Famotidine 20 MG Tablet PO ×2 (05:00→16:56)
[2020-07-02 07:00] VITALS: BP 102/58; PULSE 72; RESP 16; TEMP 36.6; O2SAT 94
[2020-07-02] MEDS: Ketoconazole Cream 1 APPLIC TOPICAL ×2 (07:13→22:30)
[2020-07-02] MEDS: Calcium Carb/Vitamin D 1 TABLET Tablet PO ×2 (08:12→16:57)
[2020-07-02] MEDS: Iron Polysaccharide Complex 150 MG CAPSULE PO (08:12)
[2020-07-02 14:46] VITALS: BP 102/50; PULSE 71; RESP 18; TEMP 36.5; O2SAT 93
[2020-07-02] MEDS: MELATONIN 10 MG TABLET PO (22:22)
[2020-07-02] MEDS: Furosemide 40 MG Tablet PO (22:22)
[2020-07-03 04:00] VITALS: BP 97/40; PULSE 66; RESP 18; TEMP 36.2; O2SAT 94
[2020-07-03] MEDS: oxyCODONE 5 MG Tablet PO ×4 (04:44→21:56)
[2020-07-03] MEDS: Paroxetine 20 MG Tablet 30 MG PO (04:48)
[2020-07-03] MEDS: buPROPion (SR) 150 MG Tablet.SA PO ×2 (04:49→04:51)
[2020-07-03] MEDS: Famotidine 20 MG Tablet PO ×2 (04:49→17:04)
[2020-07-03] MEDS: Acetaminophen 500 MG Tablet 1000 MG PO ×3 (04:50→21:56)
[2020-07-03] MEDS: Senna/Docusate Sodium 1 Tablet 2 TABLET PO ×2 (04:50→17:06)
[2020-07-03] MEDS: Ketoconazole Cream 1 APPLIC TOPICAL ×2 (04:52→21:57)
[2020-07-03] MEDS: Menthol/Lanolin/Calamine/Znox 113 GM Tube 1 APPLIC TOPICAL ×2 (07:33→21:58)
[2020-07-03] MEDS: Nystatin Powder 15gm Bottle 1 APPLIC TOPICAL ×2 (07:34→21:59)
[2020-07-03] MEDS: Iron Polysaccharide Complex 150 MG CAPSULE PO (08:42)
[2020-07-03] MEDS: Calcium Carb/Vitamin D 1 TABLET Tablet PO ×2 (08:42→17:04)
[2020-07-03] MEDS: Magnesium Hydroxide 30 ML UDC PO (08:45)
[2020-07-03 10:00] VITALS: PULSE 82; RESP 16; O2SAT 94
[2020-07-03 14:16] VITALS: BP 118/74; PULSE 76; RESP 16; TEMP 36.3; O2SAT 95
[2020-07-03] MEDS: Carvedilol 12.5 MG Tablet PO (17:04)
[2020-07-03] MEDS: Furosemide 40 MG Tablet PO (21:56)
[2020-07-03] MEDS: MELATONIN 10 MG TABLET PO (21:56)
[2020-07-04 04:00] VITALS: BP 98/50; PULSE 70; RESP 16; TEMP 36; O2SAT 94
[2020-07-04] MEDS: oxyCODONE 5 MG Tablet PO ×4 (04:56→22:29)
[2020-07-04] MEDS: Paroxetine 20 MG Tablet 30 MG PO (04:59)
[2020-07-04] MEDS: Acetaminophen 500 MG Tablet 1000 MG PO ×3 (04:59→22:29)
[2020-07-04] MEDS: Senna/Docusate Sodium 1 Tablet 2 TABLET PO ×2 (05:00→16:22)
[2020-07-04] MEDS: Famotidine 20 MG Tablet PO ×2 (05:00→16:24)
[2020-07-04] MEDS: Carvedilol 12.5 MG Tablet PO ×2 (05:00→16:23)
[2020-07-04] MEDS: buPROPion (SR) 150 MG Tablet.SA PO ×2 (05:00→16:23)
[2020-07-04] MEDS: Ketoconazole Cream 1 APPLIC TOPICAL ×2 (05:01→22:32)
[2020-07-04] MEDS: Menthol/Lanolin/Calamine/Znox 113 GM Tube 1 APPLIC TOPICAL ×2 (05:03→22:31)
[2020-07-04] MEDS: Nystatin Powder 15gm Bottle 1 APPLIC TOPICAL ×2 (05:03→22:35)
[2020-07-04] MEDS: Iron Polysaccharide Complex 150 MG CAPSULE PO (08:03)
[2020-07-04] MEDS: Calcium Carb/Vitamin D 1 TABLET Tablet PO ×2 (08:04→16:23)
[2020-07-04 15:21] VITALS: BP 108/49; PULSE 72; RESP 18; TEMP 36.7; O2SAT 96
[2020-07-04] MEDS: Furosemide 40 MG Tablet PO (22:29)
[2020-07-04] MEDS: MELATONIN 10 MG TABLET PO (22:29)
[2020-07-05 04:00] VITALS: BP 116/67; PULSE 70; RESP 18; TEMP 36.1; O2SAT 96
[2020-07-05] MEDS: Paroxetine 20 MG Tablet 30 MG PO (04:21)
[2020-07-05] MEDS: oxyCODONE 5 MG Tablet PO ×4 (04:21→22:35)
[2020-07-05] MEDS: Senna/Docusate Sodium 1 Tablet 2 TABLET PO ×2 (04:21→16:58)
[2020-07-05] MEDS: buPROPion (SR) 150 MG Tablet.SA PO ×2 (04:23→16:58)
[2020-07-05] MEDS: Famotidine 20 MG Tablet PO ×2 (04:24→16:58)
[2020-07-05] MEDS: Carvedilol 12.5 MG Tablet PO ×2 (04:24→16:58)
[2020-07-05] MEDS: Menthol/Lanolin/Calamine/Znox 113 GM Tube 1 APPLIC TOPICAL ×2 (04:25→22:37)
[2020-07-05] MEDS: Nystatin Powder 15gm Bottle 1 APPLIC TOPICAL ×2 (04:29→22:37)
[2020-07-05] MEDS: Acetaminophen 500 MG Tablet 1000 MG PO ×3 (05:39→22:36)
[2020-07-05] MEDS: Ketoconazole Cream 1 APPLIC TOPICAL ×2 (05:39→22:37)
[2020-07-05] MEDS: Iron Polysaccharide Complex 150 MG CAPSULE PO (08:02)
[2020-07-05] MEDS: Calcium Carb/Vitamin D 1 TABLET Tablet PO ×2 (08:02→16:58)
[2020-07-05 10:38] VITALS: PULSE 69; RESP 16; O2SAT 92
--- NOTE | 2020-07-05 16:31 | PCA ---
this hospital supervisor in pt room to assist from bathroom and pt stated that she couldn't believe that she had lost her visa card here. pt said multiple people have looked for said card. this MOTOR COACH BUS DRIVER found said VISA card (Black [employer] VISA card) in the recliner. pt returned card to black checkbook, in a black bag with black strands.
[2020-07-05] MEDS: MELATONIN 10 MG TABLET PO (22:36)
[2020-07-05] MEDS: Furosemide 40 MG Tablet PO (22:36)
[2020-07-06 04:49] VITALS: BP 113/59; PULSE 72; RESP 16; TEMP 36.6; O2SAT 94
[2020-07-06] MEDS: oxyCODONE 5 MG Tablet PO ×4 (04:49→22:57)
[2020-07-06] MEDS: Famotidine 20 MG Tablet PO ×2 (04:49→18:09)
[2020-07-06] MEDS: Senna/Docusate Sodium 1 Tablet 2 TABLET PO ×2 (04:50→18:09)
[2020-07-06] MEDS: Paroxetine 20 MG Tablet 30 MG PO (04:50)
[2020-07-06] MEDS: Carvedilol 12.5 MG Tablet PO ×2 (04:50→18:10)
[2020-07-06] MEDS: Acetaminophen 500 MG Tablet 1000 MG PO ×3 (04:50→22:57)
[2020-07-06] MEDS: buPROPion (SR) 150 MG Tablet.SA PO ×2 (04:50→18:10)
[2020-07-06] MEDS: Menthol/Lanolin/Calamine/Znox 113 GM Tube 1 APPLIC TOPICAL ×2 (04:52→23:00)
[2020-07-06] MEDS: Nystatin Powder 15gm Bottle 1 APPLIC TOPICAL ×2 (04:52→23:01)
[2020-07-06] MEDS: Iron Polysaccharide Complex 150 MG CAPSULE PO (08:00)
[2020-07-06] MEDS: Calcium Carb/Vitamin D 1 TABLET Tablet PO ×2 (08:00→18:10)
[2020-07-06] MEDS: Ketoconazole Cream 1 APPLIC TOPICAL ×2 (08:00→23:00)
[2020-07-06 15:50] VITALS: BP 103/56; PULSE 75; RESP 16; TEMP 36.9; O2SAT 94
[2020-07-06] MEDS: MELATONIN 10 MG TABLET PO (22:58)
[2020-07-06] MEDS: Furosemide 40 MG Tablet PO (22:58)
[2020-07-07 04:39] VITALS: BP 112/49; PULSE 69; RESP 14; TEMP 36; O2SAT 96
[2020-07-07] MEDS: oxyCODONE 5 MG Tablet PO ×4 (04:41→22:04)
[2020-07-07] MEDS: Acetaminophen 500 MG Tablet 1000 MG PO ×3 (04:42→22:04)
[2020-07-07] MEDS: Carvedilol 12.5 MG Tablet PO ×2 (04:42→17:29)
[2020-07-07] MEDS: buPROPion (SR) 150 MG Tablet.SA PO ×2 (04:42→17:29)
[2020-07-07] MEDS: Famotidine 20 MG Tablet PO ×2 (04:42→17:30)
[2020-07-07] MEDS: Senna/Docusate Sodium 1 Tablet 2 TABLET PO ×2 (04:42→17:29)
[2020-07-07] MEDS: Paroxetine 20 MG Tablet 30 MG PO (04:42)
[2020-07-07] MEDS: Menthol/Lanolin/Calamine/Znox 113 GM Tube 1 APPLIC TOPICAL ×2 (04:44→22:06)
[2020-07-07] MEDS: Nystatin Powder 15gm Bottle 1 APPLIC TOPICAL ×2 (04:45→22:07)
[2020-07-07] MEDS: Calcium Carb/Vitamin D 1 TABLET Tablet PO ×2 (08:00→17:30)
[2020-07-07] MEDS: Iron Polysaccharide Complex 150 MG CAPSULE PO (08:00)
[2020-07-07] MEDS: Ketoconazole Cream 1 APPLIC TOPICAL ×2 (08:02→22:05)
--- NOTE | 2020-07-07 12:13 | CASEMGMT ---
Social Work Spoke with pt about DC plans. Pt states she has Dr. Arevalo appt 07/24 and thinks she needs to stay until then. Offered for pt to contact Mickey to see if that is a follow up if she can DC prior or if he is recommending remaining until then. Pt states she will call this date and notify SW. Will continue to follow. BUTCH SaelemW
[2020-07-07 14:36] VITALS: BP 97/53; PULSE 75; RESP 15; TEMP 36.6; O2SAT 93
[2020-07-07 17:24] VITALS: BP 110/43; PULSE 68
[2020-07-07] MEDS: MELATONIN 10 MG TABLET PO (22:05)
[2020-07-07] MEDS: Furosemide 40 MG Tablet PO (22:51)
[2020-07-08 05:04] VITALS: BP 110/51; PULSE 73; RESP 16; TEMP 36.3; O2SAT 94
[2020-07-08] MEDS: Paroxetine 20 MG Tablet 30 MG PO (05:06)
[2020-07-08] MEDS: oxyCODONE 5 MG Tablet PO ×3 (05:06→16:51)
[2020-07-08] MEDS: Senna/Docusate Sodium 1 Tablet 2 TABLET PO ×2 (05:07→16:52)
[2020-07-08] MEDS: Acetaminophen 500 MG Tablet 1000 MG PO ×2 (05:07→14:07)
[2020-07-08] MEDS: Famotidine 20 MG Tablet PO ×2 (05:07→16:52)
[2020-07-08] MEDS: buPROPion (SR) 150 MG Tablet.SA PO ×2 (05:07→16:53)
[2020-07-08] MEDS: Carvedilol 12.5 MG Tablet PO ×2 (05:07→16:52)
[2020-07-08] MEDS: Ketoconazole Cream 1 APPLIC TOPICAL ×2 (05:08→21:13)
[2020-07-08] MEDS: Menthol/Lanolin/Calamine/Znox 113 GM Tube 1 APPLIC TOPICAL ×2 (05:09→21:15)
[2020-07-08] MEDS: Nystatin Powder 15gm Bottle 1 APPLIC TOPICAL ×2 (05:10→21:14)
[2020-07-08 05:45] LABS: Absolute Lymphocyte Count 2.81 X10^3/uL (0.83-4.51); Absolute Neutrophil Count 2.1 X10^3/uL (2.0-7.7); Basophil# 0.03 X10^3/uL; Basophil% 0.6 % (0-1); Eosinophil# 0.07 X10^3/uL; Eosinophils% 1.3 % (0-5); Hematocrit 38.6 % (37-47); Hemoglobin 12.2 g/dL (12.0-15.0); Lymphocyte # 2.81 X10^3/ul (4.0); Mean Corp Hgb Conc 31.6 g/dL (32-36); Mean Corpuscular Hgb 28.2 pg (27.0-32.0); Mean Corpuscular Volume 89.1 fL (81-99); Mean Platelet Vol. 9.8 fl (6.2-12.0); Monocyte% 7.4 % (0-10); NRBC Flagged by Analyzer 0 % (0-5); Neutrophil # 2.08 X10^3/uL (2.7-7.7); Neutrophil % 38.5 % (47-70); Platelet Count 242 K/mm3 (150-450); RBC Distribution Width CV 13.2 % (11.6-14.6); RBC Distribution Width SD 43.5 fl (35.1-43.9); Red Blood Count 4.33 M/mm3 (4.2-5.4); White Blood Count 5.4 K/mm3 (4.4-11.0)
[2020-07-08 06:09] LABS: Anion Gap 3 (5-15); BUN 35 mg/dL (7-18); BUN/Creat Ratio 37.2 RATIO (10-20); Calcium,Total 9.1 mg/dL (8.5-10.1); Chloride 104 mmol/L (98-107); Creatinine, Serum 0.94 mg/dL (0.55-1.02); EST Glomerular Filtration Rate 62 mL/min (>60); Est Glom Filt Rate - Afr Amer 75 mL/min (>60); Estimated Creatinine Clearance 68.76 ml/min; Glucose 88 mg/dL (74-106); Potassium 3.4 mmol/L (3.5-5.1); Sodium Level 140 mmol/L (136-145)
[2020-07-08] MEDS: Calcium Carb/Vitamin D 1 TABLET Tablet PO ×2 (07:44→16:51)
[2020-07-08] MEDS: Iron Polysaccharide Complex 150 MG CAPSULE PO (07:44)
--- NOTE | 2020-07-08 11:37 | PHA.CONS_ITS ---
<Nolvia Stanley M - Last Filed: 07/08/20 11:37> Progress Note - Pharmacy Subjective: Monthly Review Objective: Allergies diclofenac [From Voltaren] Allergy (Verified 03/06/20 10:42) Rash acetaminophen [From Vicodin] Adverse Reaction (Verified 03/06/20 10:42) Other hydrocodone [From Vicodin] Adverse Reaction (Verified 03/06/20 10:42) Other Current Medications Generic Name Dose Route Start Last Admin Trade Name Rudy PRN Reason Stop Dose Admin Acetaminophen 1,000 mg 05/13/20 06:00 07/08/20 05:07 Acetaminophen 500 Mg Tablet PO 1,000 mg Q8 CHIDI Administration Bisacodyl 10 mg 05/12/20 22:18 05/15/20 06:13 Bisacodyl 10 Mg Suppository RECTAL 10 mg DAILY PRN Administration Constipation Bupropion HCl 150 mg 06/17/20 06:00 07/08/20 05:07 Bupropion (Sr) 150 Mg Tablet.Sa PO 150 mg BID CHIDI Administration Calamine/Phenol 1 applic 06/30/20 22:00 07/08/20 05:09 Menthol/Lanolin/Calamine/Znox 113 Gm Tube TOPICAL 1 applicatio 0600,2200 CHIDI Administration Protocol Calcium/Vitamin D 1 tablet 05/13/20 08:00 07/08/20 07:44 Calcium Carb/Vitamin D 1 Tablet Tablet PO 1 tablet BIDCM CHIDI Administration Carvedilol 12.5 mg 05/21/20 18:00 07/08/20 05:07 Carvedilol 12.5 Mg Tablet PO 12.5 mg BID CHIDI Administration Cholecalciferol 1,000 unit 05/13/20 06:00 07/08/20 05:07 Cholecalciferol (Vit D3) 1,000 Unit (25mcg) PO 1,000 unit DAILY CHIDI Administration Famotidine 20 mg 05/13/20 06:00 07/08/20 05:07 Famotidine 20 Mg Tablet PO 20 mg BID CHIDI Administration Furosemide 40 mg 06/30/20 20:00 07/07/20 22:51 Furosemide 40 Mg Tablet PO 40 mg DAILY@2000 CHIDI Administration Sodium Chloride 250 mls @ 15 mls/hr 05/13/20 17:00 IV .[id number] PRN Saline Flush Sodium Chloride 250 mls @ 15 mls/hr 05/13/20 17:00 IV .[id number] PRN Additional IVPB Infusion Ketoconazole 1 applic 06/30/20 22:00 07/08/20 05:08 Ketoconazole Cream TOPICAL 1 applicatio 06,0 CHIDI Administration Protocol Magnesium Hydroxide 30 ml 05/12/20 22:18 07/03/20 08:45 Magnesium Hydroxide 30 Ml Udc PO 30 ml DAILY PRN Administration Constipation Melatonin 10 mg 05/16/20 22:00 07/07/20 22:05 Melatonin 10 Mg Tablet PO 10 mg QHS CHIDI Administration Multi-Ingredient Cream 1 applic 06/10/20 22:00 07/07/20 22:06 Mineral Oil/Petrolatum,White Jar TOPICAL 1 applicatio HS [facility] Administration Protocol Non-Formulary Medication 1 tab 05/23/20 17:00 07/08/20 07:44 Viviscal PO 1 tab BIDCM CHIDI Administration Nystatin 1 applic 06/30/20 22:00 07/08/20 05:10 Nystatin Powder 15gm Bottle TOPICAL 1 applicatio 599,2199 CHIDI Administration Protocol Oxycodone HCl 5 mg 06/26/20 18:00 07/08/20 11:18 Oxycodone 5 Mg Tablet PO 5 mg Q6H CHIDI Administration Paroxetine HCl 30 mg 05/13/20 06:00 07/08/20 05:06 Paroxetine 20 Mg Tablet PO 30 mg DAILY CHIDI Administration Polyethylene Glycol 17 gm 05/13/20 06:00 07/08/20 05:07 Polyethylene Glycol 3350 17 Gm Packet PO Not Given DAILY CHIDI Polysaccharide Iron Complex 150 mg 05/13/20 08:30 07/08/20 07:44 Iron Polysaccharide Complex 150 Mg Capsule PO 150 mg DAILYCM CHIDI Administration Potassium Chloride 20 meq 07/08/20 08:00 07/08/20 08:02 Potassium Chloride 20 Meq Tablet PO Not Given BIDCM CHIDI Senna/Docusate Sodium 2 tablet 05/13/20 06:00 07/08/20 05:07 Senna/Docusate Sodium 1 Tablet PO 2 tablet BID CHIDI Administration Sodium Chloride 10 - 40 ml 05/13/20 17:00 06/02/20 17:09 0.9% Saline Lock 10 Ml Syringe IV 10 ml UD PRN Administration SALINE FLUSH Problem List (Last Updated 10/30/20 @ 19:[address] Tim Cole MD) Debility (Acute) Fall (Acute) Chronic diastolic (congestive) heart failure (Chronic) Hypertension (Chronic) GERD (gastroesophageal reflux disease) (Chronic) Anxiety (Chronic) Closed right hip fracture (Acute) Depression (Chronic) Vital Signs Temp Pulse Resp BP Pulse Ox 97.3 F L 73 16 110/51 L 94 07/08/20 05:04 07/08/20 05:04 07/08/20 05:04 07/08/20 05:04 07/08/20 05:04 Oxygen Delivery Method Room Air Weight: 80.513 kg Body Mass Index (BMI) 38.3 Sodium 140 mmol/L (136-145) 07/08/20 05:20 Potassium 3.4 mmol/L (3.5-5.1) L 07/08/20 05:20 Chloride 104 mmol/L (98-107) 07/08/20 05:20 Carbon Dioxide 33.0 mmol/L (21.0-32.0) H 07/08/20 05:20 Anion Gap 3 (5-15) L 07/08/20 05:20 BUN 35 mg/dL (7-18) H 07/08/20 05:20 Creatinine 0.94 mg/dL (0.55-1.02) 07/08/20 05:20 Est GFR (MDRD) Af Amer 75 mL/min (>60) 07/08/20 05:20 Est GFR (MDRD) Non-Af 62 mL/min (>60) 07/08/20 05:20 BUN/Creatinine Ratio 37.2 RATIO (10-20) H 07/08/20 05:20 Glucose 88 mg/dL (74-106) 07/08/20 05:20 Assessment/Plan: 1. Pain: Tylenol 1000mg PO Q8h, Oxycodone 5mg PO Q6h. Please continue to monitor for increased/decreased S/S pain. 2. CHF: Coreg 12.5mg PO BID, Lasix 40mg PO daily, KCl 20mEq PO BID. Please continue to monitor BP, pulse, I/O, electrolytes. 3. GERD: Pepcid 20mg PO BID. Please continue to monitor for S/S GERD exacerbations, renal function. Please also encourage non-pharmacologic therapies as well to reduce incidence of GERD, thanks. 4. Post-operative Anemia: Ferrex 150mg PO Daily. Please continue to monitor H/H, iron studies as clinically indicated. 5. General Wellness: Os-brandy + D 1 tab PO BID, Cholecalciferol 1000 unit PO Daily. Please continue to monitor. 6. Insomnia: Melatonin 10mg PO QHS. Please continue to monitor for medication effectiveness. Can try giving 2hrs prior to bedtime to facilitate medication effectiveness if needed. 7. Rash: Ketoconazole 1 application topically BID. Please continue to monitor for medication effectiveness, improvement of rash. 8. Hair Growth: Viviscal 1 tab PO BID. Continue to monitor. This is a patient's own medication being used from home, not approved by the FDA as it is a supplement. Psychotropic Medications: *9. Depression/Anxiety: Wellbutrin SR 150mg PO Daily, Paxil 30mg PO Daily. Please consider a GDR by 11/2020 if clinically indicated, thank you. Unnecessary Medications: None Bowel Regimen: *Miralax 17g PO Daily, Senna/Docusate 2 tab PO BID, MOM 30mL po Daily PRN, Bisacodyl 10mg NC daily PRN. The patient has refused Miralax since mid-May. Please consider changing to PRN status, as pt not currently taking medication. Date of Note:: 07/08/20 - Provider Comments Provider responsibility: Provider responsible to enter orders to implement recommendations <Kishan Espinal Chi - Last Filed: 07/08/20 14:35> Progress Note - Pharmacy Subjective: [] Objective: Allergies diclofenac [From Voltaren] Allergy (Verified 03/06/20 10:42) Rash acetaminophen [From Vicodin] Adverse Reaction (Verified 03/06/20 10:42) Other hydrocodone [From Vicodin] Adverse Reaction (Verified 03/06/20 10:42) Other Current Medications Generic Name Dose Route Start Last Admin Trade Name Freq PRN Reason Stop Dose Admin Acetaminophen 1,000 mg 05/13/20 06:00 07/08/20 14:07 Acetaminophen 500 Mg Tablet PO 1,000 mg Q8 CHIDI Administration Bisacodyl 10 mg 05/12/20 22:18 05/15/20 06:13 Bisacodyl 10 Mg Suppository RECTAL 10 mg DAILY PRN Administration Constipation Bupropion HCl 150 mg 06/17/20 06:00 07/08/20 05:07 Bupropion (Sr) 150 Mg Tablet.Sa PO 150 mg BID CHIDI Administration Calamine/Phenol 1 applic 06/30/20 22:00 07/08/20 05:09 Menthol/Lanolin/Calamine/Znox 113 Gm Tube TOPICAL 1 applicatio 599,2199 [facility] Administration Protocol Calcium/Vitamin D 1 tablet 05/13/20 08:00 07/08/20 07:44 Calcium Carb/Vitamin D 1 Tablet Tablet PO 1 tablet BIDCM CHIDI Administration Carvedilol 12.5 mg 05/21/20 18:00 07/08/20 05:07 Carvedilol 12.5 Mg Tablet PO 12.5 mg BID CHIDI Administration Cholecalciferol 1,000 unit 05/13/20 06:00 07/08/20 05:07 Cholecalciferol (Vit D3) 1,000 Unit (25mcg) PO 1,000 unit DAILY CHIDI Administration Famotidine 20 mg 05/13/20 06:00 07/08/20 05:07 Famotidine 20 Mg Tablet PO 20 mg BID CHIDI Administration Furosemide 40 mg 06/30/20 20:00 07/07/20 22:51 Furosemide 40 Mg Tablet PO 40 mg DAILY@2000 CHIDI Administration Sodium Chloride 250 mls @ 15 mls/hr 05/13/20 17:00 IV .[id number] PRN Saline Flush Sodium Chloride 250 mls @ 15 mls/hr 05/13/20 17:00 IV .[id number] PRN Additional IVPB Infusion Ketoconazole 1 applic 06/30/20 22:00 07/08/20 05:08 Ketoconazole Cream TOPICAL 1 applicatio 599,2199 [facility] Administration Protocol Magnesium Hydroxide 30 ml 05/12/20 22:18 07/03/20 08:45 Magnesium Hydroxide 30 Ml Udc PO 30 ml DAILY PRN Administration Constipation Melatonin 10 mg 05/16/20 22:00 07/07/20 22:05 Melatonin 10 Mg Tablet PO 10 mg QHS CHIDI Administration Multi-Ingredient Cream 1 applic 06/10/20 22:00 07/07/20 22:06 Mineral Oil/Petrolatum,White Jar TOPICAL 1 applicatio HS [facility] Administration Protocol Non-Formulary Medication 1 tab 05/23/20 17:00 07/08/20 07:44 Viviscal PO 1 tab BIDCM CHIDI Administration Nystatin 1 applic 06/30/20 22:00 07/08/20 05:10 Nystatin Powder 15gm Bottle TOPICAL 1 applicatio 0600,2200 CHIDI Administration Protocol Oxycodone HCl 5 mg 06/26/20 18:00 07/08/20 11:18 Oxycodone 5 Mg Tablet PO 5 mg Q6H CHIDI Administration Paroxetine HCl 30 mg 05/13/20 06:00 07/08/20 05:06 Paroxetine 20 Mg Tablet PO 30 mg DAILY CHIDI Administration Polyethylene Glycol 17 gm 05/13/20 06:00 07/08/20 05:07 Polyethylene Glycol 3350 17 Gm Packet PO Not Given DAILY CHIDI Polysaccharide Iron Complex 150 mg 05/13/20 08:30 07/08/20 07:44 Iron Polysaccharide Complex 150 Mg Capsule PO 150 mg DAILYCM CHIDI Administration Potassium Chloride 20 meq 07/08/20 08:00 07/08/20 14:08 Potassium Chloride 20 Meq Tablet PO 20 meq BIDCM CHIDI Administration Senna/Docusate Sodium 2 tablet 05/13/20 06:00 07/08/20 05:07 Senna/Docusate Sodium 1 Tablet PO 2 tablet BID CHIDI Administration Sodium Chloride 10 - 40 ml 05/13/20 17:00 06/02/20 17:09 0.9% Saline Lock 10 Ml Syringe IV 10 ml UD PRN Administration SALINE FLUSH Problem List (Last Updated 05/09/20 @ 19:[address] Tim Cole MD) Debility (Acute) Fall (Acute) Chronic diastolic (congestive) heart failure (Chronic) Hypertension (Chronic) GERD (gastroesophageal reflux disease) (Chronic) Anxiety (Chronic) Closed right hip fracture (Acute) Depression (Chronic) Vital Signs Temp Pulse Resp BP Pulse Ox 97.5 F L 75 18 113/53 L 94 07/08/20 14:32 07/08/20 14:32 07/08/20 14:32 07/08/20 14:32 07/08/20 14:32 Oxygen Delivery Method Room Air Weight: 79.52 kg Body Mass Index (BMI) 38.3 Sodium 140 mmol/L (136-145) 07/08/20 05:20 Potassium 3.4 mmol/L (3.5-5.1) L 07/08/20 05:20 Chloride 104 mmol/L (98-107) 07/08/20 05:20 Carbon Dioxide 33.0 mmol/L (21.0-32.0) H 07/08/20 05:20 Anion Gap 3 (5-15) L 07/08/20 05:20 BUN 35 mg/dL (7-18) H 07/08/20 05:20 Creatinine 0.94 mg/dL (0.55-1.02) 07/08/20 05:20 Est GFR (MDRD) Af Amer 75 mL/min (>60) 07/08/20 05:20 Est GFR (MDRD) Non-Af 62 mL/min (>60) 07/08/20 05:20 BUN/Creatinine Ratio 37.2 RATIO (10-20) H 07/08/20 05:20 Glucose 88 mg/dL (74-106) 07/08/20 05:20 Assessment/Plan: Psychotropic Medications: Unnecessary Medications: Bowel Regimen: - Provider Comments Provider responsibility: Provider responsible to enter orders to implement recommendations Provider Comments to Recommendations by Pharmacy: Agree
--- NOTE | 2020-07-08 12:58 | CASEMGMT ---
Addendum entered by Najma Strickland 07/10/20 10:38: [place] [facility] [place] until September 2020. Notified pt. Explained pt can purchase new FWW or w/c if she feels she needs it. Pt understands. Original Note: Social Work Spoke with pt about DC plans. Pt agreeable to DC 1/2 home with family support. Pt requesting outpatient therapy at [facility]. Referral made for PT/OT. Pt requesting FWW and 3-in-1 commode. Ref[place] to [facility]. Family can transport pt. No other issues noted. Plan: DC home with family 1/2, [facility] PT/OT, [facility] [place] [facility], [facility] Najma Strickland, [employer]
[2020-07-08 14:32] VITALS: BP 113/53; PULSE 75; RESP 18; TEMP 36.4; O2SAT 94
--- NOTE | 2020-07-08 15:20 | NURSING ---
Resident and family updated on COVID status on the unit.
--- NOTE | 2020-07-08 19:40 | PCM.DC ---
- Discharge Diagnoses Current Active Problems: Current Active and Chronic Problems (Last Updated 05/09/20 @ 19:[address] Tim Cole MD) Debility (Acute) Fall (Acute) Chronic diastolic (congestive) heart failure (Chronic) Hypertension (Chronic) GERD (gastroesophageal reflux disease) (Chronic) Anxiety (Chronic) Closed right hip fracture (Acute) Depression (Chronic) You will use the following diet at home:: No restrictions, Regular Your food should be the consistency of: Regular Your liquids should be the consistency of: Regular/Thin Discharge Activity: Return to Normal Activity, May Shower, Use Walker Weight Bearing Status: Weight bearing as tolerated Call your doctor if you observe: Fever of 101 or Higher, Inability to urinate, Inability to have a bowel movement, Shortness of breath, Chest pain, Uncontrolled pain Allergies/Adverse Reactions: Allergies diclofenac [From Voltaren] Allergy (Verified 03/06/20 10:42) Rash acetaminophen [From Vicodin] Adverse Reaction (Verified 03/06/20 10:42) Other hydrocodone [From Vicodin] Adverse Reaction (Verified 03/06/20 10:42) Other Medications to take at Discharge famotidine 20 mg tablet 20 mg PO BID tab 03/06/20 Calcium Carb/Vitamin D [Os-Chi 500MG + D] 1 tab PO BIDCM 05/09/20 Furosemide 40 mg PO DAILY 05/09/20 Paroxetine HCl [Paxil] 30 mg PO DAILY 05/09/20 Calcium Carb/Vitamin D [Os-Chi 500MG + D] 1 tab PO BIDCM 05/12/20 Cholecalciferol (VIT D3) [Vitamin D3] 1,000 unit PO DAILY 05/12/20 Acetaminophen [Tylenol] 1,000 mg PO Q8 tablet 07/08/20 Carvedilol [Coreg (Beta Shola)] 12.5 mg PO BID #60 tab 07/08/20 Iron Polysaccharide Complex [Ferrex 150] 150 mg PO DAILYCM #30 cap 07/08/20 Ketoconazole [Nizoral Cream] 1 applic TOPICAL 0600,2200 #1 tube 07/08/20 Melatonin 10 mg PO QHS tablet 07/08/20 Menthol/Lanolin/Calamine/Znox [Calmoseptine Ointment] 1 applic TOPICAL 0600,2200 tube 07/08/20 Mineral Oil/Petrolatum,White [Eucerin] 1 applic TOPICAL HS jar 07/08/20 Nystatin Powder [Mycostatin Powder] 1 applic TOPICAL 0600,2200 bottle 07/08/20 Oxycodone [Oxyir] 5 mg PO Q6H PRN PRN 7 Days #28 tab 07/08/20 Polyethylene Glycol 3350 [Miralax] 17 gm PO DAILY #30 packet 07/08/20 Potassium Chloride [K-Dur] 20 meq PO BIDCM #30 tab 07/08/20 Viviscal 1 tab PO BIDCM 07/08/20 buPROPion SR [Wellbutrin SR (150mg tablets)] 150 mg PO BID #60 tablet.sa 07/08/20 The following prescriptions were given: Carvedilol [Coreg (Beta Shola)] 12.5 mg PO BID #60 tab Transmission Status: Pending to [facility] Iron Polysaccharide Complex [Ferrex 150] 150 mg PO DAILYCM #30 cap Transmission Status: Pending to [facility] Potassium Chloride [K-Dur] 20 meq PO BIDCM #30 tab Transmission Status: Pending to [facility] Polyethylene Glycol 3350 [Miralax] 17 gm PO DAILY #30 packet Transmission Status: Pending to [facility] Ketoconazole [Nizoral Cream] 1 applic TOPICAL 0600,2200 #1 tube Transmission Status: Pending to [facility] Oxycodone [Oxyir] 5 mg PO Q6H PRN PRN 7 Days #28 tab PRN Reason: Pain Score 6-10 Transmission Status: Sent to [facility] buPROPion SR [Wellbutrin SR (150mg tablets)] 150 mg PO BID #60 tablet.sa Transmission Status: Pending to [facility] Primary Care Physician: Kei Pineda DO [Primary Care Provider] - Please follow up with your Primary Care Physician in: 1 week. Test Results: Test results from this visit will be discussed in further detail at your follow-up appointment, if applicable. Please Follow Up With: Kei Pineda MD (PCP) Please Follow Up With: Triston Arevalo DO When: Please Follow Up With: Candelario Robles PA-C When: 2 weeks. Proposed Discharge Date: 07/12/20
--- NOTE | 2020-07-08 19:42 | PCM.DC.SUM ---
Discharge Date and Diagnosis - Problem List Patient Problems: Active and Suspected Problems (Last Updated 05/09/20 @ 19:[address] Tim Cole MD) Debility (Acute) Fall (Acute) Closed right hip fracture (Acute) Date of Admission: 05/09/20 Date of Discharge: 07/12/20 - Primary Discharge Diagnosis Acute Problems: Active Problems (Last Updated 05/09/20 @ 19:[address] Tim Cole MD) Debility (Acute) Fall (Acute) Closed right hip fracture (Acute) - Secondary Discharge Diagnosis Chronic Problems: Chronic Problems (Last Updated 05/09/20 @ 19:[address] Tim Cole MD) Chronic depression (Chronic) Chronic diastolic (congestive) heart failure (Chronic) Hypertension (Chronic) GERD (gastroesophageal reflux disease) (Chronic) Anxiety (Chronic) Depression (Chronic) COPD (chronic obstructive pulmonary disease) (Chronic) Chronic anemia (Chronic) ACUTE ON CHRONIC ANEMIA DUE TO BLOOD LOSS FROM RIGHT HIP FRACTURE Non-ischemic cardiomyopathy (Chronic) Chronic systolic (congestive) heart failure (Chronic) Secondary pulmonary arterial hypertension (Chronic) Hospital Course and Treatment Imaging Results: 05/19/20 13:14 Diet: Cardiac - Heart Healthy Food consistency:: Regular Liquid Consistency:: Regular/Thin Is pt able to select menu?: Yes Clinical Impression(s) from Imaging Studies Knee X-Ray 05/26/20 08:06 IMPRESSION: Degenerative arthrosis. Electronically Signed: Greyson Pyle, at 9:32 EST , Service support , Labs (Last 48 Hours) 07/08/20 07/08/20 05:20 05:20 WBC 5.4 RBC 4.33 Hgb 12.2 Hct 38.6 MCV 89.1 MCH 28.2 MCHC 31.6 L RDW Std Deviation 43.5 RDW Coeff of Joe 13.2 Plt Count 242 MPV 9.8 Immature Gran % (Auto) 0.200 Neut % (Auto) 38.5 L Lymph % (Auto) 52.0 H [place] % (Auto) 7.4 Eos % (Auto) 1.3 Baso % (Auto) 0.6 Absolute Neuts (auto) 2.1 Absolute Lymphs (auto) 2.81 Nucleated RBC % 0 Sodium 140 Potassium 3.4 L Chloride 104 Carbon Dioxide 33.0 H Anion Gap 3 L BUN 35 H Creatinine 0.94 Estim Creat Clear Calc 68.76 Est GFR (MDRD) Af Amer 75 Est GFR (MDRD) Non-Af 62 BUN/Creatinine Ratio 37.2 H Glucose 88 Calcium 9.1 Microbiology 07/07/20 12:25 Nasal Secretion SARS-CoV-2 Antigen (Rapid) - Final Operations: None, - - Gamma nail insertion right hip Procedures: None Summary of Care Provided: The patient is a 70 year old emale with below past medical history hospitalized for right hip fracture, underwent ORIF right hip with Gamma nail 05/10/20, postoperative course uncomplicated, admitted to TCU with debility, here for rehabilitation, strengthening, prior to discharge home with significant other. Discharge home with family, [facility] PT/OT, [employer] Front Wheeled Walker, Bedside [employer]. Patient Problems: Active and Suspected Problems (Last Updated 05/09/20 @ 19:[address] Tim Cole MD) Debility (Acute) Fall (Acute) Closed right hip fracture (Acute) - Physical Exam Vitals/I&O's: Vital Signs Temp Pulse Resp BP Pulse Ox 97.5 F L 75 18 113/53 L 94 07/08/20 14:32 07/08/20 14:32 07/08/20 14:32 07/08/20 14:32 07/08/20 14:32 Oxygen Delivery Method Room Air Weight: 79.52 kg Body Mass Index (BMI) 38.3 Intake and Output for Last 24 Hours 07/06/20 07/07/20 07/08/20 23:59 23:59 23:59 Intake Total 1320 / 1320 720 / 720 600 / 600 Output Total 1050 / 1050 800 / 800 1100 / 1100 Balance 270 / 270 -80 / -80 -500 / -500 Microbiology Past 72 Hours 07/07/20 12:25 Nasal Secretion SARS-CoV-2 Antigen (Rapid) - Final Laboratory Results 07/08/20 05:20: WBC 5.4, RBC 4.33, Hgb 12.2, Hct 38.6, MCV 89.1, MCH 28.2, MCHC 31.6 L, RDW Std Deviation 43.5, RDW Coeff of Joe 13.2, Plt Count 242, MPV 9.8, Immature Gran % (Auto) 0.200, Neut % (Auto) 38.5 L, Lymph % (Auto) 52.0 H, [place] % (Auto) 7.4, Eos % (Auto) 1.3, Baso % (Auto) 0.6, Absolute Neuts (auto) 2.1, Absolute Lymphs (auto) 2.81, Nucleated RBC % 0 07/08/20 05:20: Sodium 140, Potassium 3.4 L, Chloride 104, Carbon Dioxide 33.0 H, Anion Gap 3 L, BUN 35 H, Creatinine 0.94, Estim Creat Clear Calc 68.76, Est GFR (MDRD) Af Amer 75, Est GFR (MDRD) Non-Af 62, BUN/Creatinine Ratio 37.2 H, Glucose 88, Calcium 9.1 Current Medications Acetaminophen (Acetaminophen 500 Mg Tablet) 1,000 mg PO Q8 [facility] Last Admin: 07/08/20 14:07 Dose: 1,000 mg Documented by: Bisacodyl (Bisacodyl 10 Mg Suppository) 10 mg RECTAL DAILY PRN PRN Reason: Constipation Last Admin: 05/15/20 06:13 Dose: 10 mg Documented by: Bupropion HCl (Bupropion (Sr) 150 Mg Tablet.Sa) 150 mg PO BID [facility] Last Admin: 07/08/20 16:53 Dose: 150 mg Documented by: Calamine/Phenol (Menthol/Lanolin/Calamine/Znox 113 Gm Tube) 1 applic TOPICAL 0600,2200 [facility]; Protocol Last Admin: 07/08/20 05:09 Dose: 1 applicatio Documented by: Calcium/Vitamin D (Calcium Carb/Vitamin [facility] 1 Tablet [facility]) [facility] Admin: 07/08/20 16:51 Dose: 1 tablet Documented by: Carvedilol (Carvedilol 12.5 Mg Tablet) 12.5 mg PO BID [facility] Last Admin: 07/08/20 16:52 Dose: 12.5 mg Documented by: Cholecalciferol (Cholecalciferol (Vit D3) 1,000 Unit (25mcg)) 1,000 unit PO DAILY [facility] Last Admin: 07/08/20 05:07 Dose: 1,000 unit Documented by: Famotidine (Famotidine 20 Mg Tablet) 20 mg PO BID [facility] Last Admin: 07/08/20 16:52 Dose: 20 mg Documented by: Furosemide (Furosemide 40 Mg Tablet) 40 mg PO DAILY@2000 [facility] Last Admin: 07/07/20 22:51 Dose: 40 mg Documented by: Sodium Chloride () 250 mls @ 15 mls/hr IV .[id number] PRN PRN Reason: Saline Flush Sodium Chloride () 250 mls @ 15 mls/hr IV .[id number] PRN PRN Reason: Additional IVPB Infusion Ketoconazole (Ketoconazole Cream) 1 applic TOPICAL 0600,220 [facility]; Protocol Last Admin: 07/08/20 05:08 Dose: 1 applicatio Documented by: Magnesium Hydroxide (Magnesium Hydroxide 30 Ml Udc) 30 ml PO DAILY PRN PRN Reason: Constipation Last Admin: 07/03/20 08:45 Dose: 30 ml Documented by: Melatonin (Melatonin 10 Mg Tablet) 10 mg PO QHS [facility] Last Admin: 07/07/20 22:05 Dose: 10 mg Documented by: Multi-Ingredient Cream (Mineral Oil/Petrolatum,White Jar) 1 applic TOPICAL HS [facility]; Protocol Last Admin: 07/07/20 22:06 Dose: 1 applicatio Documented by: Non-Formulary Medication (Viviscal) [facility] Last Admin: 07/08/20 16:51 Dose: 1 tab Documented by: Nystatin (Nystatin Powder 15gm Bottle) 1 applic TOPICAL 0600,220 [facility]; Protocol Last Admin: 07/08/20 05:10 Dose: 1 applicatio Documented by: Oxycodone HCl (Oxycodone 5 Mg Tablet) 5 mg PO Q6H [facility] Last Admin: 07/08/20 16:51 Dose: 5 mg Documented by: Paroxetine HCl (Paroxetine 20 Mg Tablet) 30 mg PO DAILY [facility] Last Admin: 07/08/20 05:06 Dose: 30 mg Documented by: Polyethylene Glycol (Polyethylene Glycol 3350 17 Gm Packet) 17 gm PO DAILY [facility] Last Admin: 07/08/20 05:07 Dose: Not Given Documented by: Polysaccharide Iron Complex (Iron Polysaccharide Complex 150 Mg Capsule) [facility] Last Admin: 07/08/20 07:44 Dose: 150 mg Documented by: Potassium Chloride (Potassium Chloride 20 Meq Tablet) [facility]q [facility] Last Admin: 07/08/20 18:24 Dose: Not Given Documented by: Senna/Docusate Sodium (Senna/Docusate Sodium 1 Tablet) 2 tablet PO BID [facility] Last Admin: 07/08/20 16:52 Dose: 2 tablet Documented by: Sodium Chloride (0.9% Saline Lock 10 Ml Syringe) 10 - 40 ml IV UD PRN PRN Reason: SALINE FLUSH Last Admin: 06/02/20 17:09 Dose: 10 ml Documented by: Discharge Diet: No Restrictions Discharge Activity: Return to Normal Activity, May Shower, Use Walker Weight Bearing Status: Weight bearing as tolerated Call your doctor if you observe: Fever of 101 or Higher, Inability to urinate, Inability to have a bowel movement, Shortness of breath, Chest pain, Uncontrolled pain Home Medications: Medications to take at Discharge famotidine 20 mg tablet 20 mg PO BID tab 03/06/20 Calcium Carb/Vitamin D [Os-Chi 500MG + D] 1 tab PO BIDCM 05/09/20 Furosemide 40 mg PO DAILY 05/09/20 Paroxetine HCl [Paxil] 30 mg PO DAILY 05/09/20 Calcium Carb/Vitamin D [Os-Chi 500MG + D] 1 tab PO BIDCM 05/12/20 Cholecalciferol (VIT D3) [Vitamin D3] 1,000 unit PO DAILY 05/12/20 Acetaminophen [Tylenol] 1,000 mg PO Q8 tablet 07/08/20 Carvedilol [Coreg (Beta Shola)] 12.5 mg PO BID #60 tab 07/08/20 Iron Polysaccharide Complex [Ferrex 150] 150 mg PO DAILYCM #30 cap 07/08/20 Ketoconazole [Nizoral Cream] 1 applic TOPICAL 0600,2200 #1 tube 07/08/20 Melatonin 10 mg PO QHS tablet 07/08/20 Menthol/Lanolin/Calamine/Znox [Calmoseptine Ointment] 1 applic TOPICAL 0600,2200 tube 07/08/20 Mineral Oil/Petrolatum,White [Eucerin] 1 applic TOPICAL HS jar 07/08/20 Nystatin Powder [Mycostatin Powder] 1 applic TOPICAL 0600,2200 bottle 07/08/20 Oxycodone [Oxyir] 5 mg PO Q6H PRN PRN 7 Days #28 tab 07/08/20 Polyethylene Glycol 3350 [Miralax] 17 gm PO DAILY #30 packet 07/08/20 Potassium Chloride [K-Dur] 20 meq PO BIDCM #30 tab 07/08/20 Viviscal 1 tab PO BIDCM 07/08/20 buPROPion SR [Wellbutrin SR (150mg tablets)] 150 mg PO BID #60 tablet.sa 07/08/20 Following Prescriptions Were Given to Patient: Carvedilol [Coreg (Beta Shola)] 12.5 mg PO BID #60 tab Transmission Status: Pending to [employer] #30 Iron Polysaccharide Complex [Ferrex 150] 150 mg PO DAILYCM #30 cap Transmission Status: Pending to [employer] #30 Potassium Chloride [K-Dur] 20 meq PO BIDCM #30 tab Transmission Status: Pending to [employer] #30 Polyethylene Glycol 3350 [Miralax] 17 gm PO DAILY #30 packet Transmission Status: Pending to [employer] #30 Ketoconazole [Nizoral Cream] 1 applic TOPICAL 0600,2200 #1 tube Transmission Status: Pending to [employer] [facility] #30 Oxycodone [Oxyir] 5 mg PO Q6H PRN PRN 7 Days #28 tab PRN Reason: Pain Score 6-10 Transmission Status: Sent to [facility] [employer] [facility] #30 buPROPion SR [Wellbutrin SR (150mg tablets)] 150 mg PO BID #60 tablet.sa Transmission Status: Pending to [employer] [facility] #30 Primary Care Physician: Kei Pineda DO [Primary Care Provider] - Please follow up with your Primary Care Physician in: 1 week. Please Follow Up With: Kei Pineda MD (PCP) Please Follow Up With: Triston Arevalo DO When: Please Follow Up With: Candelario Robles PA-C When: 2 weeks. Disposition: Home Minutes spent on discharge:: 30 Patient Condition:: Stable Medical Necessity - Tobacco Use Smoking Status: Former smoker Meaningful Use Info Meaningful Use Diagnoses (Choose all that apply): None applicable
[2020-07-09] MEDS: Furosemide 40 MG Tablet PO ×2 (02:26→21:18)
[2020-07-09 04:33] VITALS: BP 134/50; PULSE 69; RESP 16; TEMP 36.2; O2SAT 94
[2020-07-09] MEDS: oxyCODONE 5 MG Tablet PO ×4 (04:35→21:17)
[2020-07-09] MEDS: buPROPion (SR) 150 MG Tablet.SA PO ×2 (04:35→16:35)
[2020-07-09] MEDS: Acetaminophen 500 MG Tablet 1000 MG PO ×3 (04:35→21:18)
[2020-07-09] MEDS: Senna/Docusate Sodium 1 Tablet 2 TABLET PO ×2 (04:36→16:34)
[2020-07-09] MEDS: Paroxetine 20 MG Tablet 30 MG PO (04:36)
[2020-07-09] MEDS: Carvedilol 12.5 MG Tablet PO ×2 (04:36→16:33)
[2020-07-09] MEDS: Famotidine 20 MG Tablet PO ×2 (04:36→16:34)
[2020-07-09] MEDS: Ketoconazole Cream 1 APPLIC TOPICAL ×2 (04:38→20:38)
[2020-07-09] MEDS: Nystatin Powder 15gm Bottle 1 APPLIC TOPICAL ×2 (04:39→20:39)
[2020-07-09] MEDS: Menthol/Lanolin/Calamine/Znox 113 GM Tube 1 APPLIC TOPICAL ×2 (04:39→20:39)
[2020-07-09] MEDS: Iron Polysaccharide Complex 150 MG CAPSULE PO (07:46)
[2020-07-09] MEDS: Calcium Carb/Vitamin D 1 TABLET Tablet PO ×2 (07:47→16:32)
[2020-07-09 13:23] VITALS: BP 110/67; PULSE 69; RESP 18; TEMP 36.5; O2SAT 93
[2020-07-09 18:50] VITALS: PULSE 69; RESP 18; O2SAT 93
[2020-07-09] MEDS: MELATONIN 10 MG TABLET PO (21:19)
[2020-07-10 04:53] VITALS: BP 111/54; PULSE 66; RESP 16; TEMP 36.4; O2SAT 95
[2020-07-10] MEDS: oxyCODONE 5 MG Tablet PO ×3 (04:55→17:29)
[2020-07-10] MEDS: Senna/Docusate Sodium 1 Tablet 2 TABLET PO ×2 (04:56→18:15)
[2020-07-10] MEDS: Carvedilol 12.5 MG Tablet PO (04:56)
[2020-07-10] MEDS: Paroxetine 20 MG Tablet 30 MG PO (04:56)
[2020-07-10] MEDS: buPROPion (SR) 150 MG Tablet.SA PO ×2 (04:57→18:15)
[2020-07-10] MEDS: Acetaminophen 500 MG Tablet 1000 MG PO ×2 (04:57→14:22)
[2020-07-10] MEDS: Famotidine 20 MG Tablet PO ×2 (04:58→18:16)
[2020-07-10] MEDS: Ketoconazole Cream 1 APPLIC TOPICAL (04:59)
[2020-07-10] MEDS: Menthol/Lanolin/Calamine/Znox 113 GM Tube 1 APPLIC TOPICAL (05:00)
[2020-07-10] MEDS: Nystatin Powder 15gm Bottle 1 APPLIC TOPICAL (05:00)
[2020-07-10 05:49] LABS: Anion Gap 3 (5-15); BUN 45 mg/dL (7-18); BUN/Creat Ratio 42.9 RATIO (10-20); Chloride 105 mmol/L (98-107); Creatinine, Serum 1.05 mg/dL (0.55-1.02); EST Glomerular Filtration Rate 55 mL/min (>60); Est Glom Filt Rate - Afr Amer 66 mL/min (>60); Glucose 80 mg/dL (74-106); Potassium 3.7 mmol/L (3.5-5.1); Sodium Level 141 mmol/L (136-145)
[2020-07-10] MEDS: Iron Polysaccharide Complex 150 MG CAPSULE PO (07:51)
[2020-07-10] MEDS: Calcium Carb/Vitamin D 1 TABLET Tablet PO ×2 (07:52→18:15)
--- NOTE | 2020-07-10 10:33 | CASEMGMT ---
Social Work BIMS and PHQ-9 completed for MDS assessment. Najma Strickland, ROOM MANAGER HEEL ROOM SUPERVISOR
--- NOTE | 2020-07-10 13:11 | MDS.RN ---
Pain assessment for adolfo 07/12/20 completed.
[2020-07-10 16:00] VITALS: BP 100/35; PULSE 71; RESP 16; TEMP 36.2; O2SAT 98
[2020-07-10 20:17] VITALS: PULSE 75; RESP 16; O2SAT 96
[2020-07-11] MEDS: oxyCODONE 5 MG Tablet PO ×5 (00:14→22:55)
[2020-07-11] MEDS: Furosemide 40 MG Tablet PO ×2 (00:15→22:56)
[2020-07-11] MEDS: Ketoconazole Cream 1 APPLIC TOPICAL ×2 (00:15→23:03)
[2020-07-11] MEDS: Acetaminophen 500 MG Tablet 1000 MG PO ×4 (00:15→22:58)
[2020-07-11] MEDS: MELATONIN 10 MG TABLET PO ×2 (00:15→22:57)
[2020-07-11] MEDS: Nystatin Powder 15gm Bottle 1 APPLIC TOPICAL ×3 (00:17→22:57)
[2020-07-11] MEDS: Menthol/Lanolin/Calamine/Znox 113 GM Tube 1 APPLIC TOPICAL ×3 (00:17→22:56)
--- NOTE | 2020-07-11 00:20 | NURSING ---
Patient requested to be given HS meds after midnight. All medication given at this time.
[2020-07-11] MEDS: buPROPion (SR) 150 MG Tablet.SA PO ×2 (04:46→17:25)
[2020-07-11] MEDS: Paroxetine 20 MG Tablet 30 MG PO (04:46)
[2020-07-11] MEDS: Senna/Docusate Sodium 1 Tablet 2 TABLET PO ×2 (04:46→17:24)
[2020-07-11] MEDS: Famotidine 20 MG Tablet PO ×2 (04:47→17:24)
[2020-07-11] MEDS: Carvedilol 12.5 MG Tablet PO ×2 (04:47→17:24)
[2020-07-11 04:59] VITALS: BP 112/52; PULSE 71; RESP 16; TEMP 36.5; O2SAT 98
[2020-07-11] MEDS: Calcium Carb/Vitamin D 1 TABLET Tablet PO ×2 (07:52→17:24)
[2020-07-11] MEDS: Iron Polysaccharide Complex 150 MG CAPSULE PO (07:52)
[2020-07-11 13:39] VITALS: BP 97/57; PULSE 76; RESP 16; TEMP 36.3; O2SAT 92
[2020-07-11 14:39] VITALS: PULSE 76; RESP 18; O2SAT 98
[2020-07-11 17:27] VITALS: BP 105/43; PULSE 71
[2020-07-12 04:00] VITALS: BP 106/48; PULSE 68; RESP 18; TEMP 36.6; O2SAT 95
[2020-07-12] MEDS: Acetaminophen 500 MG Tablet 1000 MG PO (04:33)
[2020-07-12] MEDS: oxyCODONE 5 MG Tablet PO ×2 (04:33→10:26)
[2020-07-12] MEDS: Carvedilol 12.5 MG Tablet PO (04:34)
[2020-07-12] MEDS: Senna/Docusate Sodium 1 Tablet 2 TABLET PO (04:34)
[2020-07-12] MEDS: buPROPion (SR) 150 MG Tablet.SA PO (04:34)
[2020-07-12] MEDS: Menthol/Lanolin/Calamine/Znox 113 GM Tube 1 APPLIC TOPICAL (04:34)
[2020-07-12] MEDS: Famotidine 20 MG Tablet PO (04:34)
[2020-07-12] MEDS: Paroxetine 20 MG Tablet 30 MG PO (04:34)
[2020-07-12] MEDS: Nystatin Powder 15gm Bottle 1 APPLIC TOPICAL (04:35)
[2020-07-12] MEDS: Iron Polysaccharide Complex 150 MG CAPSULE PO (07:55)
[2020-07-12] MEDS: Calcium Carb/Vitamin D 1 TABLET Tablet PO (07:55)
[2020-07-12 10:41] VITALS: PULSE 69; RESP 18; O2SAT 96
[2020-07-12 10:49] VITALS: BP 111/51; PULSE 89; RESP 18; TEMP 37; O2SAT 94
== END 2020-07-12 11:18 | disposition home or self-care (01) | DRG 560 ==
PROVIDERS: Admitting Provider Family Medicine Geriatric Medicine; PCP Student in an Organized Health Care Education/Training Program; Visit Provider Family Medicine Geriatric Medicine
DX: S72.001D Fracture of unspecified part of neck of right femur, subsequent encounter for closed fracture with routine healing (principal); I50.42 Chronic combined systolic (congestive) and diastolic (congestive) heart failure; I42.8 Other cardiomyopathies; D62 Acute posthemorrhagic anemia; W19.XXXD Unspecified fall, subsequent encounter; F32.9 Major depressive disorder, single episode, unspecified; Z23 Encounter for immunization; F41.9 Anxiety disorder, unspecified; K21.9 Gastro-esophageal reflux disease without esophagitis; I11.0 Hypertensive heart disease with heart failure; J44.9 Chronic obstructive pulmonary disease, unspecified; E66.9 Obesity, unspecified; M19.90 Unspecified osteoarthritis, unspecified site; G47.33 Obstructive sleep apnea (adult) (pediatric); Z68.38 Body mass index [BMI] 38.0-38.9, adult; E55.9 Vitamin D deficiency, unspecified; Z98.84 Bariatric surgery status; Z87.891 Personal history of nicotine dependence; B35.4 Tinea corporis
CPT/HCPCS: 36415; 73564; 80048; 85014; 85018; 85025; 86850; 86900; 86901; 86920; 86922; 87426; 87635; 90732; 93005; 97110; 97116; 97163; 97166; 97530; 97535; 97802; G0009; J7030; P9016; A4216; U0003

== ENCOUNTER 2020-09-16 16:25 | Outpatient (RCR) | payer MEDICARE, OTHER, SELFPAY ==
[2020-05-12 17:34] VITALS: BMI 38.3
[2020-09-16] MEDS: COVID-19 VACC, MRNA(PFIZER)/PF 30 MCG/0.3 ML SYRINGE IM (09:29)
[2020-10-07] MEDS: COVID-19 VACC, MRNA(PFIZER)/PF 30 MCG/0.3 ML SYRINGE IM (09:21)
== END 2020-12-16 23:59 ==
LOC: IMMUN 16:25
PROVIDERS: PCP Student in an Organized Health Care Education/Training Program; Visit Provider Family Medicine
DX: Z23 Encounter for immunization (principal)
CPT/HCPCS: 0001A; 0002A; 91300

== ENCOUNTER → 2021-01-21 11:46 | Outpatient (CLI) | payer MEDICARE, OTHER, SELFPAY ==
[2020-05-12 17:34] VITALS: BMI 38.3
--- NOTE | 2021-01-21 12:05 | RAD_ITS ---
STUDY: X-RAY CHEST REASON FOR EXAM: Female, 70 years old. SOB, cough, hx pleural effusion TECHNIQUE: PA and lateral views of the chest. COMPARISON: Comparison is made with prior examination dated 05/09/2020. FINDINGS: The lungs are clear and expanded. Scattered calcified granulomas. There is no demonstrated pleural abnormality. Normal size heart. Normal mediastinum and eileen. Normal visualized pulmonary arteries. There is atherosclerotic calcification of the aortic arch with tortuosity. There are diffuse degenerative changes of the visualized thoracic spine. Normal visualized ribs, clavicles, and shoulders. Evidence of prior ventral hernia repair. RAD/Chest PA and Lateral IMPRESSION: No acute abnormality is seen. Electronically Signed: Greyson Pyle MD at 13:36 EDT , Service support ,
[2021-01-21 12:40] LABS: Hematocrit 35.8 % (37-47); Hemoglobin 11.3 g/dL (12.0-15.0); Mean Corp Hgb Conc 31.6 g/dL (32-36); Mean Corpuscular Hgb 27.7 pg (27.0-32.0); Mean Corpuscular Volume 87.7 fL (81-99); Mean Platelet Vol. 9.8 fl (6.2-12.0); Platelet Count 287 K/mm3 (150-450); RBC Distribution Width CV 14.8 % (11.6-14.6); RBC Distribution Width SD 46.7 fl (35.1-43.9); Red Blood Count 4.08 M/mm3 (4.2-5.4)
[2021-01-21 12:59] LABS: Anion Gap 3 (5-15); BUN 16 mg/dL (7-18); Calcium,Total 9.2 mg/dL (8.5-10.1); Chloride 103 mmol/L (98-107); Creatinine, Serum 0.89 mg/dL (0.55-1.02); EST Glomerular Filtration Rate 66 mL/min (>60); Est Glom Filt Rate - Afr Amer 80 mL/min (>60); Glucose 96 mg/dL (74-106); Potassium 4.3 mmol/L (3.5-5.1); Sodium Level 139 mmol/L (136-145)
[2021-01-21 13:31] LABS: BNP,B-Type NATRIURETIC PEPTIDE 52.5 pg/mL (0-100)
== END ==
PROVIDERS: PCP Student in an Organized Health Care Education/Training Program; Referring Provider Physician Assistant Medical; Visit Provider Physician Assistant Medical
DX: R05 Cough (principal); I27.21 Secondary pulmonary arterial hypertension; D64.9 Anemia, unspecified; I42.8 Other cardiomyopathies; I50.42 Chronic combined systolic (congestive) and diastolic (congestive) heart failure; R06.02 Shortness of breath; J44.9 Chronic obstructive pulmonary disease, unspecified; Z87.09 Personal history of other diseases of the respiratory system
CPT/HCPCS: 36415; 71046; 80048; 83880; 85027

== ENCOUNTER → 2021-02-04 08:50 | Outpatient (CLI) | payer MEDICARE, OTHER, SELFPAY ==
[2021-01-26 10:40] VITALS: BMI 37.5
--- NOTE | 2021-02-04 08:53 | ECHOD_ITS ---
Reason For Study: Dyspnea/SOB Procedure This was a 2D Doppler, Color Flow transthoracic echocardiogram. Exam performed in department. Left Ventricle Normal LV size. Left ventricular systolic function is normal. The estimated ejection fraction is 60 %. Stage 1 diastolic dysfunction. No regional wall motion abnormalities noted. Right Ventricle Normal RV size. Normal systolic function. Atria The left atrium is mildly enlarged. Normal right atrium. Mitral Valve Normal mitral valve. Mild (1+) mitral valve insufficiency. Tricuspid Valve Normal tricuspid valve. Mild (1+) tricuspid valve insufficiency. Pulmonary artery systolic pressure is 36 mmHg. Aortic Valve Trisinus/trileaflet aortic valve. Mild (1+) aortic valve insufficiency. Pulmonic Valve Normal pulmonic valve. Great Vessels Normal aortic root. The pulmonary artery is normal size. Normal inferior vena cava. Pericardium/Pleural No pericardial effusion. MMode/2D Measurements & Calculations LVIDd: 5.0 cm IVSd: 0.92 cm Ao root diam: 2.9 cm LVIDs: 3.4 cm LVPWd: 1.3 cm LA dimension: 4.7 cm FS: 31.3 % LAV(MOD-bp): 83.8 ml LA A4 area: 24.4 cm2 RA A4 area: 21.2 cm2 LAV(MOD-bp) Indexed: 46.9 ml/m2 LAV(MOD-sp2): 77.9 ml LAV(MOD-sp4): 88.0 ml Time Measurements MV dec time: 0.24 sec Doppler Measurements & Calculations MV E max siva: 58.2 cm/sec Lat Peak E' Siva: 7.0 cm/sec Med Peak E' Siva: 5.9 cm/sec MV A max siva: 66.6 cm/sec E/E' lat: 8.4 E/E' med: 9.8 MV E/A: 0.87 MV V2 max: 81.9 cm/sec MV P1/2t max siva: 67.6 cm/sec Ao V2 max: 98.4 cm/sec MV max P.7 mmHg MV P1/2t: 68.3 msec Ao max P.9 mmHg MV V2 mean: 48.1 cm/sec MV dec slope: 289.9 cm/sec2 MV mean P.1 mmHg MVA(P1/2t): 3.2 cm2 MV V2 VTI: 23.9 cm LV V1 max: 89.3 cm/sec PA V2 max: 82.4 cm/sec TR max siva: 280.5 cm/sec LV V1 max P.2 mmHg TR max P.5 mmHg ECHO/Echo Complete Interpretation Summary Normal LV size. Left ventricular systolic function is normal. The estimated ejection fraction is 60 %. Stage 1 diastolic dysfunction. The left atrium is mildly enlarged. Pulmonary artery systolic pressure is 36 mmHg. Ordering Physician: Jayne To Referring Physician: Kei Pineda Performed By: Wilbert Bustos RCS
== END ==
PROVIDERS: PCP Student in an Organized Health Care Education/Training Program; Referring Provider Physician Assistant Medical; Visit Provider Physician Assistant Medical
DX: I27.21 Secondary pulmonary arterial hypertension (principal)
CPT/HCPCS: 93306

== ENCOUNTER 2021-11-05 13:30 | Emergency (ER) | payer MEDICARE, OTHER, SELFPAY ==
[2021-11-05 13:32] VITALS: BP 127/60; PULSE 77; RESP 16; TEMP 35.1; O2SAT 98; BMI 40.1
--- NOTE | 2021-11-05 14:08 | ED.VIS.GI ---
HPI HPI - GI History of Present Illness Chief Complaint: Alt LOC Informant: patient Abdominal Pain/Flank Pain Onset: Today and Hours Context: Gradual Onset Timing: Intermittent Location: Epigastric, RUQ and LUQ Current Severity: Mild Maximum Severity: Mild Nausea/Vomiting/Emesis GI Symptom: Positive for Nausea; Negative for Vomiting Onset: Today Severity: Mild Diarrhea/Melena/Hematochezia GI Symptom: Positive for Diarrhea; Negative for Melena and Hematochezia Onset: Today Stool Quality: Positive for Loose Severity: Mild Associated Symptoms Associated Symptoms: Negative for Dysuria, Frequency, Hematuria and Urgency Narrative Narrative: 1-year-old female history of anemia, COPD, cardiomyopathy, gastric bypass, cholecystectomy and C-sections. States that her called paramedics because she was acting abnormally. They found her blood sugar was low gave her food to eat and her blood sugar came up and her mental status came back to baseline. States however she has had diarrhea since last night and is having upper abdominal cramping. She has had issues with her blood sugars dropping before. She is reportedly not diabetic. She denies any falls or head trauma. No fever or dysuria. Prior similar symptoms: No Recent Illness/Hospitalization: No PFSH PFS Medical History Anemia Bilateral pleural effusion COPD (chronic obstructive pulmonary disease) Depression Dilated cardiomyopathy Essential hypertension GERD (gastroesophageal reflux disease) Obesity Obstructive sleep apnea Osteoarthritis Osteoporosis Home Medications famotidine 20 mg tablet 20 mg PO BID tab 03/06/20 [History Last Taken 05/09/20] calcium carbonate-vitamin D3 1 tab PO BIDCM 05/09/20 [History Last Taken 05/09/20] furosemide 40 mg PO DAILY 05/09/20 [History Last Taken 05/09/20] paroxetine HCl 30 mg PO DAILY 05/09/20 [History Last Taken 05/09/20] cholecalciferol (vitamin D3) 1,000 unit PO DAILY 05/12/20 [History Last Taken Unknown] Viviscal 1 tab PO BIDCM 07/08/20 [Rx Last Taken Unknown] acetaminophen 1,000 mg PO Q8 tab 07/08/20 [Rx Last Taken Unknown] bupropion HCl 150 mg PO BID #60 tablet.sa 07/08/20 [Rx Last Taken Unknown] melatonin 10 mg PO QHS tab 12/29/20 [Rx Last Taken Unknown] polyethylene glycol 3350 17 g PO DAILY #30 packet 07/08/20 [Rx Last Taken Unknown] polysaccharide iron complex 150 mg PO DAILYCM #30 cap 07/08/20 [Rx Last Taken Unknown] potassium chloride 20 meq PO BIDCM #30 tab 07/08/20 [Rx Last Taken Unknown] gabapentin 300 mg capsule 300 mg PO TID 01/26/21 [History Last Taken Unknown] prednisone 10 mg tablet 10 mg PO .COMPLEX #30 tab 01/26/21 [Rx Last Taken Unknown] lisinopril 2.5 mg tablet See Rx Instructions .ROUTE .COMPLEX #90 tablet 06/09/21 [Rx Last Taken Unknown] carvedilol 12.5 mg tablet 12.5 mg PO BID #180 tab 11/04/21 [Rx Last Taken Unknown] Allergy/AdvReac Type Severity Reaction Status Date / Time diclofenac [From Voltaren] Allergy Rash Verified 10/22/21 11:31 acetaminophen [From Vicodin] AdvReac Other Verified 10/22/21 11:31 hydrocodone [From Vicodin] AdvReac Other Verified 10/22/21 11:31 Family History Mother Diabetes Heart disease Hypertension Hyperlipidemia Father Diabetes Heart disease Hypertension Hyperlipidemia Surgical History History of History of gastric bypass History of herniorrhaphy History of left heart catheterization (12/05/18) History of open reduction and internal fixation (ORIF) procedure History of open reduction and internal fixation (ORIF) procedure History of tonsillectomy Hx of cholecystectomy Social History Smoking Status: Former smoker ROS ROS ED ROS Narrative Nausea and diarrhea. Upper abdominal pain. Review of Systems ROS Unobtainable: Denies due to encephalopathy Constitutional Constitutional ED: Denies fever(s) ENT ENT ED: Denies ear pain Cardiovascular Cardiovascular: Denies chest pain Respiratory/Chest Respiratory/Chest: Denies cough or dyspnea Gastrointestinal Gastrointestinal: Reports abdominal pain, diarrhea and nausea; Denies vomiting Genitourinary Genitourinary ED: Denies dysuria or hematuria Musculoskeletal Musculoskeletal: Denies myalgias Integumentary Denies rash Neurologic Neurologic: Denies headache(s) Psychiatric Psychiatric: Denies depression Endocrine Endocrinology: Denies polyuria Hematologic/Lymphatic Hematologic/Lymphatic: Denies easy bruising Allergic/Immunologic Allergic/Immunologic ED: Denies urticaria EXAM Physical Exam Narrative Exam Narrative: 31-year-old female no acute distress. Vital signs stable afebrile. HEENT exam unremarkable. Neck nontender no lymphadenopathy. Lungs clear to auscultation bilaterally. Heart regular rhythm no murmur. Abdomen soft nondistended normal bowel sounds no peritoneal signs. Very minimal epigastric tenderness. No rebound guarding rigidity. No pulsatile mass. Right upper and lower quadrants are nontender. No signs of obstruction. Moving all 4 extremities. Normal store coordinator strength. Normal dorsi plantar flexion. Neurologically she is awake and alert. There is a friend or family member at bedside they states she is back to her baseline. Const Vital Signs: 11/05/21 13:32 Temperature 95.1 F L Temperature Source Temporal Pulse Rate 77 Respiratory Rate 16 Blood Pressure 127/60 H Blood Pressure Mean 82 Pulse Ox 98 Oxygen Delivery Method Room Air Positive well nourished, well developed and obese; Negative for cachectic, contractures or unkempt General Appearance ED: well developed and NAD; Negative for unkempt, cachectic, contractures or pallor Nutritional Appearance: obese; Negative for cachectic HEENT Reports moist mucous membranes normocephalic and atraumatic; Negative for trauma or tenderness Eyes PERRL and EOMs intact bilaterally General Eye ED: Negative for pale conjunctiva or scleral icterus Neck no lymphadenopathy, supple and no JVD General: Negative for tenderness Resp normal respiratory effort and clear to auscultation bilaterally Auscultation: Negative for rales, rhonchi or wheezes Cardio regular rate, regular rhythm, S1 normal heart sound, S2 normal heart sound and no murmurs GI non-distended and no masses; Negative for non-tender Inspection: Negative for abdominal distention Auscultation: normoactive bowel sounds Palpation: soft and tender; Negative for guarding, rigid or rebound tenderness present Back/Spine no CVA tenderness General Back: Negative for CVA tenderness Cervical Spine: Negative for cervical spine tenderness Thoracic Spine / Upper Back: Negative for thoracic spinal tenderness Extremity full ROM General Extremety ED: Negative for edema or tenderness General Extremity: Negative for edema Neuro moves all extremities Sensorium / Orientation: alert, oriented to person, oriented to place and oriented to time; Negative for orientation impaired, confused, lethargic or stuporous Motor Exam: strength 5/5 throughout Psych mental status grossly normal and thought process normal Appearance: Negative for unkempt Skin no wounds General Skin Exam: Negative for jaundice or pallor Lesions: no lesions Rashes: no rashes MDM MDM MDM Narrative Medical decision making narrative: 71-year-old with a hypoglycemic episode with decreased mental status that resolved when they brought her blood sugar up in the field by the paramedics. She is also had nausea and diarrhea with upper abdominal discomfort. Screening labs are being obtained. She will be treated with IV fluids and small dose of morphine. Repeat exam patient is doing well at 3:45 PM. Awake alert. Abdomen is benign. We went over all of her test results. We will recheck a blood sugar vats well she be discharged to home. She really ate dinner early last night and has not eaten today except for a few gummy bears at home. Blood sugar rechecked at 3:50 PM was 134. Lab Data Attestation: I reviewed the patient's lab results. Lab results narrative: CBC normal. White count 8. H&H 13 and 40. Electrolytes show a gap of 2 BUN 25 creatinine 0.8. Liver enzymes are normal. Lipase of 337. Glucose of 89. Labs: Laboratory Results - last 24 hr 11/05/21 11/05/21 14:15 14:15 WBC 8.9 RBC 4.97 Hgb 13.9 Hct 44.2 MCV 88.9 MCH 28.0 MCHC 31.4 L RDW Std Deviation 44.6 H RDW Coeff of Joe 13.6 Plt Count 277 MPV 10.5 Immature Gran % (Auto) 0.600 Neut % (Auto) 54.2 Lymph % (Auto) 35.8 [place] % (Auto) 8.1 Eos % (Auto) 0.7 Baso % (Auto) 0.6 Absolute Neuts (auto) 4.8 Absolute Lymphs (auto) 3.18 Nucleated RBC % 0 Sodium 140 Potassium 3.5 Chloride 109 H Carbon Dioxide 29.0 Anion Gap 2 L BUN 25 H Creatinine 0.87 Estim Creat Clear Calc 79.19 Est GFR (MDRD) Af Amer 82 Est GFR (MDRD) Non-Af 67 BUN/Creatinine Ratio 28.6 H Glucose 89 Calcium 9.5 Total Bilirubin 0.60 AST 34 ALT 37 Alkaline Phosphatase 103 Total Protein 7.2 Albumin 3.6 Globulin 3.6 Albumin/Globulin Ratio 1.0 Lipase 337 Discharge Plan Triage Chief Complaint: Alt LOC ED Provider: Juventino Garner Dx/Rx/DC Orders Clinical Impression: Acute metabolic encephalopathy due to hypoglycemia, Viral syndrome, Diarrhea Instructions: ED Hypoglycemia, Nondiabetic, ED Viral Syndrome (Adult) Prescriptions: No Action famotidine 20 mg tablet 20 mg PO BID RF: 0 gabapentin 300 mg capsule 300 mg PO TID RF: 0 prednisone 10 mg tablet 10 mg PO .COMPLEX Qty: 30 RF: 0 paroxetine HCl 30 MG tablet 30 mg PO DAILY RF: 0 furosemide 40 MG tablet 40 mg PO DAILY RF: 0 calcium carbonate-vitamin D3 1 TABLET tablet 1 tab PO BIDCM RF: 0 cholecalciferol (vitamin D3) 1,000 UNIT tablet 1,000 unit PO DAILY RF: 0 bupropion HCl 150 MG tablet sustained-release 12 hr 150 mg PO BID Qty: 60 RF: 0 polyethylene glycol 3350 17 GM packet 17 g PO DAILY Qty: 30 RF: 0 polysaccharide iron complex 150 MG capsule 150 mg PO DAILYCM Qty: 30 RF: 0 acetaminophen 500 MG tablet 1,000 mg PO Q8 RF: 0 potassium chloride 20 MEQ tablet 20 meq PO BIDCM Qty: 30 RF: 0 melatonin 10 MG tablet 10 mg PO QHS RF: 0 Viviscal 1 tab PO BIDCM RF: 0 lisinopril 2.5 mg tablet See Rx Instructions .ROUTE .COMPLEX Qty: 90 RF: 4 carvedilol 12.5 mg tablet 12.5 mg PO BID Qty: 180 RF: 3 Primary Care Provider: Kei Pineda Referrals: Kei Pineda, DO [Primary Care Provider] - 3-5 Days if not improving Activity Restrictions/Additional Instructions: Plenty of fluids and rest. Make sure you are eating so your blood sugar does not drop. The diarrhea should improve over the next several days if not you need reevaluated. I suspect that secondary to a virus. Return if feeling worse or follow-up with your doctor if not improving. Disposition Disposition: Home, Self Care
[2021-11-05 14:25] LABS: Absolute Lymphocyte Count 3.18 X10^3/uL (0.83-4.51); Absolute Neutrophil Count 4.8 X10^3/uL (2.0-7.7); Basophil# 0.05 X10^3/uL; Basophil% 0.6 % (0-1); Eosinophil# 0.06 X10^3/uL; Eosinophils% 0.7 % (0-5); Hematocrit 44.2 % (37-47); Hemoglobin 13.9 g/dL (12.0-15.0); Lymphocyte # 3.18 X10^3/ul (0.83-4.51); Lymphocyte % 35.8 % (19-41); Mean Corp Hgb Conc 31.4 g/dL (32-36); Mean Corpuscular Volume 88.9 fL (81-99); Mean Platelet Vol. 10.5 fl (6.2-12.0); Monocyte# 0.72 X10^3/uL; Monocyte% 8.1 % (0-10); NRBC Flagged by Analyzer 0 % (0-5); Neutrophil # 4.82 X10^3/uL (2.7-7.7); Neutrophil % 54.2 % (47-70); Platelet Count 277 K/mm3 (150-450); RBC Distribution Width CV 13.6 % (11.6-14.6); RBC Distribution Width SD 44.6 fl (35.1-43.9); Red Blood Count 4.97 M/mm3 (4.2-5.4); White Blood Count 8.9 K/mm3 (4.4-11.0)
[2021-11-05] MEDS: Morphine 4 MG/ML Syringe IV (14:27)
[2021-11-05] MEDS: 0.9% Normal Saline 1,000 ML 1000 ML IV (14:27)
[2021-11-05 14:40] LABS: AST(SGOT) 34 U/L (15-37); Alanine Aminotransfer ALT/SGPT 37 U/L (13-56); Albumin, Serum 3.6 g/dL (3.2-5.0); Alkaline Phosphatase 103 U/L (45-117); Anion Gap 2 (5-15); BUN 25 mg/dL (7-18); BUN/Creat Ratio 28.6 RATIO (10-20); Calcium,Total 9.5 mg/dL (8.5-10.1); Chloride 109 mmol/L (98-107); Creatinine, Serum 0.87 mg/dL (0.55-1.02); EST Glomerular Filtration Rate 67 mL/min (>60); Est Glom Filt Rate - Afr Amer 82 mL/min (>60); Estimated Creatinine Clearance 79.19 ml/min; Globulin 3.6 g/dL (2.2-4.2); Glucose 89 mg/dL (74-106); Lipase 337 U/L (73-393); Potassium 3.5 mmol/L (3.5-5.1); Protein, Total 7.2 g/dL (6.4-8.2); Sodium Level 140 mmol/L (136-145)
[2021-11-05 15:56] LABS: Bedside Glucose 134 mg/dL (74-106)
[2021-11-05 15:58] VITALS: BP 123/66; PULSE 71; RESP 16; O2SAT 98
== END 2021-11-05 16:22 | disposition home or self-care (01) ==
PROVIDERS: Emergency Provider Emergency Medicine; PCP Student in an Organized Health Care Education/Training Program; Visit Provider Emergency Medicine
DX: G93.41 Metabolic encephalopathy (principal); J44.9 Chronic obstructive pulmonary disease, unspecified; I42.0 Dilated cardiomyopathy; Z68.41 Body mass index [BMI] 40.0-44.9, adult; E16.2 Hypoglycemia, unspecified; B34.9 Viral infection, unspecified; R19.7 Diarrhea, unspecified; Z98.84 Bariatric surgery status; Z90.49 Acquired absence of other specified parts of digestive tract; D64.9 Anemia, unspecified; F32.A Depression, unspecified; G47.33 Obstructive sleep apnea (adult) (pediatric); M81.0 Age-related osteoporosis without current pathological fracture; K21.9 Gastro-esophageal reflux disease without esophagitis; Z79.899 Other long term (current) drug therapy; Z87.891 Personal history of nicotine dependence; E66.9 Obesity, unspecified
CPT/HCPCS: 80053; 82962; 83690; 85025; 96361; 96374; 99285; J7030; A4216

== ENCOUNTER 2022-07-11 13:25 | Emergency (ER) | payer MEDICARE, OTHER, SELFPAY ==
[2022-07-11 13:25] VITALS: BP 105/67; PULSE 79; RESP 18; TEMP 36.4; O2SAT 95; BMI 35.2
--- NOTE | 2022-07-11 13:33 | CT_ITS ---
EXAM: CT HEAD WITHOUT INTRAVENOUS CONTRAST CLINICAL INDICATION: head injury TECHNIQUE: Multiple axial images were obtained of the head without intravenous contrast. This CT exam was performed using one or more of the following dose reduction techniques: automated exposure control, adjustment of the mA and/or kV according to patient size, and/or use of iterative reconstruction technique. This report was created using [employer] report generation technology. RADIATION DOSE: CTDIvol = 44.99 mGy, DLP = 779.24 mGy-cm COMPARISON: None. FINDINGS: BRAIN AND EXTRA-AXIAL SPACES: Hypodensities in the forceps minor and forceps major are chronic white matter ischemic changes. No midline shift and no mass effects. No intra- or extra-axial hemorrhage. Posterior fossa structures are unremarkable. Ventricles are appropriate for age. No hydrocephalus. Basal cisterns are patent. BONES/JOINTS: Unremarkable. No discrete lytic or blastic abnormalities. SINUSES: Unremarkable as visualized. Clear. MASTOID AIR CELLS: Unremarkable. Clear. ORBITS: Visualized globes, extraocular muscles, optic nerves and retrobulbar fat appear unremarkable. CT/Brain/Head without Contrast IMPRESSION: No acute findings in the head/brain. Electronically Signed: Angel Pink MD at 14:41 EST ,
--- NOTE | 2022-07-11 13:33 | CT_ITS ---
EXAM: CT CERVICAL SPINE WITHOUT INTRAVENOUS CONTRAST CLINICAL INDICATION: Neck trauma injury. TECHNIQUE: Helically acquired images were obtained of the cervical spine without intravenous contrast. 2D reformatted images were reviewed. This CT exam was performed using one or more of the following dose reduction techniques: automated exposure control, adjustment of the mA and/or kV according to patient size, and/or use of iterative reconstruction technique. This report was created using [employer] report generation technology. RADIATION DOSE: CTDIvol = 23.09 mGy, DLP = 491.64 mGy-cm COMPARISON: None. FINDINGS: VERTEBRAE: Mild degenerative anterolisthesis of C3 on C4. Normal vertebral body heights. No discrete lytic or blastic abnormality. Normal craniocervical junction and cervicothoracic junction. DISCS/SPINAL CANAL/NEURAL FORAMINA: Moderate disc space height narrowing at C3-C4, C4-C5, C5-C6 and C6-C7 disc space levels. Mild ventral extradural defect at T1-T2 disc space level due to calcified posterior bulging annulus. Normal central canal and intervertebral neural foramina. SOFT TISSUES: Unremarkable. No prevertebral soft tissue swelling. LYMPH NODES: Unremarkable. No cervical adenopathy. LUNG APICES: Unremarkable as visualized. Clear. CT/Spine Cervical without Contras IMPRESSION: 1. No CT evidence of acute fracture of the cervical spine, craniocervical junction and cervicothoracic junction. 2. Mild degenerative anterolisthesis of C3 on C4. 3. No CT evidence of cervical extruded disc fragment, spinal stenosis or cervical nerve root displacement. 4. Moderate degenerative disc space height narrowing at C3-C4 down to C6-C7 disc space levels. 5. Minimal calcified posterior bulging annulus at T1-T2 disc space level. Electronically Signed: Angel Pink MD at 14:44 EST ,
--- NOTE | 2022-07-11 13:36 | EDS_ITS ---
HPI History of Present Illness Chief Complaint: Fall Informant: patient Narrative Narrative: 72-year-old female presenting for fall. Patient was at a [employer] and slipped while going to the bathroom. She states she had a few drinks and may have lost her balance. She denies hitting her head or losing consciousness. She complains of pain in her left shoulder. Denies other complaints. She is not on anticoagulants. [facility] Medical History Anemia Bilateral pleural effusion COPD (chronic obstructive pulmonary disease) Depression Dilated cardiomyopathy Essential hypertension GERD (gastroesophageal reflux disease) Obesity Obstructive sleep apnea Osteoarthritis Osteoporosis Home Medications famotidine 20 mg tablet 20 mg PO BID gerd 03/06/20 [History Last Taken 05/09/20] calcium carbonate 500 mg-vitamin D3 5 mcg (200 unit) tablet 1 tab PO BIDCM supplement 05/09/20 [History Last Taken 05/09/20] furosemide 40 mg tablet 40 mg PO DAILY fluid 05/09/20 [History Last Taken 05/09/20] paroxetine HCl 30 mg tablet 30 mg PO DAILY depression 05/09/20 [History Last Taken 05/09/20] cholecalciferol (vitamin D3) 25 mcg (1,000 unit) tablet 1,000 unit PO DAILY Supplement 05/12/20 [History Last Taken Unknown] Viviscal 1 tab PO BIDCM 07/08/20 [Rx Last Taken Unknown] acetaminophen 500 mg tablet 1,000 mg PO Q8 07/08/20 [Rx Last Taken Unknown] bupropion HCl 150 mg tablet,12 hr sustained-release 150 mg PO BID ##60 07/08/20 [Rx Last Taken Unknown] melatonin 10 mg sublingual tablet 10 mg PO QHS 07/08/20 [Rx Last Taken Unknown] polyethylene glycol 3350 17 gram oral powder packet 17 g PO DAILY #30 packets 07/08/20 [Rx Last Taken Unknown] polysaccharide iron complex 150 mg iron capsule 150 mg PO DAILYCM #30 caps 07/08/20 [Rx Last Taken Unknown] potassium chloride 20 mEq tablet,extended release(part/cryst) 20 meq PO BIDCM #30 tabs 07/08/20 [Rx Last Taken Unknown] gabapentin 300 mg capsule 300 mg PO TID 01/26/21 [History Last Taken Unknown] prednisone 10 mg tablet 10 mg PO .COMPLEX #30 tabs 01/26/21 [Rx Last Taken Unknown] lisinopril 2.5 mg tablet See Rx Instructions .Route .COMPLEX #90 TABLETS 06/09/21 [Rx Last Taken Unknown] carvedilol 12.5 mg tablet 12.5 mg PO BID #180 tabs 11/04/21 [Rx Last Taken Unknown] oxycodone-acetaminophen 5 mg-325 mg tablet 1 tab PO Q6H PRN PRN Pain 3 days #12 TABLETS 07/11/22 [Rx Last Taken Unknown] Allergy/AdvReac Type Severity Reaction Status Date / Time diclofenac [From Voltaren] Allergy Rash Verified 07/11/22 13:27 acetaminophen [From Vicodin] AdvReac Other Verified 07/11/22 13:27 hydrocodone [From Vicodin] AdvReac Other Verified 07/11/22 13:27 Family History Mother Diabetes Heart disease Hypertension Hyperlipidemia Father Diabetes Heart disease Hypertension Hyperlipidemia Surgical History History of History of gastric bypass History of herniorrhaphy History of left heart catheterization (12/05/18) History of open reduction and internal fixation (ORIF) procedure History of open reduction and internal fixation (ORIF) procedure History of tonsillectomy Hx of cholecystectomy Social History Smoking Status: Former smoker ROS ROS ED Constitutional Constitutional ED: Denies fever(s) Eyes Eyes: Denies change in vision ENT ENT ED: Denies rhinorrhea or sore throat Cardiovascular Cardiovascular: Denies chest pain or palpitations Respiratory/Chest Respiratory/Chest: Denies cough or dyspnea Gastrointestinal Gastrointestinal: Denies abdominal pain, diarrhea, nausea or vomiting Genitourinary Genitourinary ED: Denies dysuria Musculoskeletal Musculoskeletal: Reports other Details: Left shoulder pain Integumentary Denies rash Neurologic Neurologic: Denies headache(s) Psychiatric Psychiatric: Denies suicidal thoughts EXAM Physical Exam Const Vital Signs: 07/11/22 13:25 07/11/22 14:02 Temperature 97.5 F L Temperature Source Temporal Pulse Rate 79 Respiratory Rate 18 Respiratory Effort Normal Non-Labored Respiratory Depth Normal Respiratory Pattern Normal Blood Pressure 105/67 Blood Pressure Mean 79 Pulse Ox 95 Oxygen Delivery Method Room Air Room Air Positive well nourished and well developed General Appearance ED: well developed HEENT Reports normocephalic and head/scalp atraumatic Eyes PERRL and EOMs intact bilaterally Neck supple Neck Narrative: No midline tenderness General: Negative for tenderness Chest Wall inspection of chest normal Resp normal respiratory effort and clear to auscultation bilaterally Cardio regular rate and regular rhythm GI non-tender and non-distended Palpation: soft; Negative for guarding or rebound tenderness present no CVA tenderness Extremity normal to inspection Extremity Narrative: Left shoulder diffuse tenderness. No elbow, wrist, hand tenderness. Normal distal pulses. Neuro oriented x3 Sensorium / Orientation: alert Psych mental status grossly normal MDM MDM MDM Narrative Medical decision making narrative: Patient is given morphine, Zofran. CT head and cervical spine showed no acute findings. Left shoulder x-ray shows acute complete fracture across the left humeral neck. Patient was put in a sling. She will follow-up with Dr. Portillo. She is given prescription for Percocet. Advised to return to ED for worsening complaints. Radiography Diagnostic Testing: Clinical Impression(s) from Imaging Studies Brain CT 07/11/22 13:33 IMPRESSION: No acute findings in the head/brain. Electronically Signed: Angel Pink MD at 14:41 EST Reading Location ID and State: [facility] / [place] , Service support , Cervical Spine CT 07/11/22 13:33 IMPRESSION: 1. No CT evidence of acute fracture of the cervical spine, craniocervical junction and cervicothoracic junction. 2. Mild degenerative anterolisthesis of C3 on C4. 3. No CT evidence of cervical extruded disc fragment, spinal stenosis or cervical nerve root displacement. 4. Moderate degenerative disc space height narrowing at C3-C4 down to C6-C7 disc space levels. 5. Minimal calcified posterior bulging annulus at T1-T2 disc space level. Electronically Signed: Angel Pink MD at 14:44 EST , Shoulder X-Ray 07/11/22 14:30 IMPRESSION: Acute complete fracture across the left humeral neck. Electronically Signed: Angel Pink MD at 14:44 EST , Discharge Plan Triage Chief Complaint: Fall ED Provider: Fern Sharp Dx/Rx/DC Orders Clinical Impression: Fracture, humerus Instructions: ED Fracture, Upper Extremity Prescriptions: New oxycodone-acetaminophen 5-325 mg tablet 1 tab PO Q6H PRN PRN (Reason: Pain) 3 Days Qty: 12 0RF No Action famotidine 20 mg tablet 20 mg PO BID gabapentin 300 mg capsule 300 mg PO TID prednisone 10 mg tablet 10 mg PO .COMPLEX Qty: 30 0RF Rx Instructions: Take 4 pills for 3 days, 3 pills for 3 days, 2 pills for 3 days, take 1 pill for 3 days paroxetine HCl 30 MG tablet 30 mg PO DAILY furosemide 40 MG tablet 40 mg PO DAILY calcium carbonate-vitamin D3 1 TABLET tablet 1 tab PO BIDCM cholecalciferol (vitamin D3) 1,000 UNIT tablet 1,000 unit PO DAILY bupropion HCl 150 MG tablet sustained-release 12 hr 150 mg PO BID Qty: 60 0RF polyethylene glycol 3350 17 GM packet 17 g PO DAILY Qty: 30 0RF polysaccharide iron complex 150 MG capsule 150 mg PO DAILYCM Qty: 30 0RF acetaminophen 500 MG tablet 1,000 mg PO Q8 0RF potassium chloride 20 MEQ tablet 20 meq PO BIDCM Qty: 30 0RF melatonin 10 MG tablet 10 mg PO QHS 0RF Viviscal 1 tab PO BIDCM 0RF lisinopril 2.5 mg tablet See Rx Instructions .ROUTE .COMPLEX Qty: 90 4RF Dose Instruction: TAKE 1 TABLET BY MOUTH DAILY Rx Instructions: TAKE 1 TABLET BY MOUTH DAILY carvedilol 12.5 mg tablet 12.5 mg PO BID Qty: 180 3RF Primary Care Provider: Kei Pineda Referrals: Kei Pineda DO [Primary Care Provider] - Logan Portillo MD [Med Staff - Active Staff] - Disposition Disposition: Home, Self Care
[2022-07-11] MEDS: Ondansetron 4 MG/2 ML Vial IV (13:49)
[2022-07-11] MEDS: Morphine 4 MG/ML Syringe IV (13:49)
--- NOTE | 2022-07-11 14:30 | RAD_ITS ---
EXAM: XR LEFT SHOULDER COMPLETE, 2 OR MORE VIEWS CLINICAL INDICATION: Fall injury. TECHNIQUE: Two or more views of the left shoulder. This report was created using [employer] report generation technology. COMPARISON: None. FINDINGS: BONES/JOINTS: Acute complete fracture across the left humeral neck. Preservation of the joint space. No sclerotic or destructive changes observed. SOFT TISSUES: Unremarkable. No soft tissue swelling or gas. No radiopaque foreign body. RAD/Shoulder min 2 Views IMPRESSION: Acute complete fracture across the left humeral neck. Electronically Signed: Angel Pink MD at 14:44 EST ,
[2022-07-11] MEDS: HYDROmorphone 0.5 MG/0.5 ML SYRINGE IV (15:58)
[2022-07-11] MEDS: oxyCODONE 5 MG Tablet PO (17:10)
[2022-07-11 17:23] VITALS: PULSE 88; RESP 17; O2SAT 94
== END 2022-07-11 17:25 | disposition home or self-care (01) ==
PROVIDERS: Emergency Provider Emergency Medicine; PCP Student in an Organized Health Care Education/Training Program; Visit Provider Emergency Medicine
DX: S42.292A Other displaced fracture of upper end of left humerus, initial encounter for closed fracture (principal); W01.0XXA Fall on same level from slipping, tripping and stumbling without subsequent striking against object, initial encounter; Z87.891 Personal history of nicotine dependence
CPT/HCPCS: 70450; 72125; 73030; 96374; 96375; 99284; A4216; J2405

== ENCOUNTER 2022-07-13 16:29 | Emergency (ER) | payer MEDICARE, OTHER, SELFPAY ==
[2022-07-13 16:31] VITALS: BP 134/60; PULSE 64; RESP 20; TEMP 37.2; O2SAT 96; BMI 37.0
--- NOTE | 2022-07-13 19:00 | EX.ED.UPPERE ---
HPI History of Present Illness Chief Complaint: Upper Extremity Injury Detail of Chief Complaint: Pain due to fracture proximal left humerus Informant: patient Occured/Mechanism Mechanism/Context: Yes blunt trauma, Yes fall and Yes same level fall Comment: Patient has a nondisplaced transverse fracture surgical not proximal left humerus. Was seen on the first. Discharged with pain medicine and sling. Onset/Context/Timing Context: Sudden Onset Timing: Continuous and Waxes and wanes Quality of Pain: Aching and Throbbing Location: Left shoulder Current Severity: Mild Maximum Severity: Severe Worsened by: Movement and improper application of sling and swath Relieved by: Nothing Associated Symptoms Associated Symptoms: Positive for Loss of Funtion; Negative for Parasthesia or Weakness Narrative Narrative: Patient is a 72-year-old [id number] woman who was seen on July 11 after fall. She sustained a nondisplaced transverse fracture surgical neck proximal left humerus. She denies paresthesia, anesthesia medics. She was discharged with a sling and Dominik wrap. and patient having difficulty applying the Dominik wrap and causes her significant discomfort. She also is requesting more pain medicine. Patient states she was given pain medicine without acetaminophen. Tetanus Immunization: 5-10 years Prior similar symptoms: Yes Recent Illness/Hospitalization: Yes [facility] Medical History Anemia Bilateral pleural effusion COPD (chronic obstructive pulmonary disease) Depression Dilated cardiomyopathy Essential hypertension GERD (gastroesophageal reflux disease) Obesity Obstructive sleep apnea Osteoarthritis Osteoporosis Home Medications famotidine 20 mg tablet 20 mg PO BID gerd 03/06/20 [History Last Taken 05/09/20] calcium carbonate 500 mg-vitamin D3 5 mcg (200 unit) tablet 1 tab PO BIDCM supplement 05/09/20 [History Last Taken 05/09/20] furosemide 40 mg tablet 40 mg PO DAILY fluid 05/09/20 [History Last Taken 05/09/20] paroxetine HCl 30 mg tablet 30 mg PO DAILY depression 05/09/20 [History Last Taken 05/09/20] cholecalciferol (vitamin D3) 25 mcg (1,000 unit) tablet 1,000 unit PO DAILY Supplement 05/12/20 [History Last Taken Unknown] Viviscal 1 tab PO BIDCM 07/08/20 [Rx Last Taken Unknown] acetaminophen 500 mg tablet 1,000 mg PO Q8 07/08/20 [Rx Last Taken Unknown] bupropion HCl 150 mg tablet,12 hr sustained-release 150 mg PO BID ##60 07/08/20 [Rx Last Taken Unknown] melatonin 10 mg sublingual tablet 10 mg PO QHS 07/08/20 [Rx Last Taken Unknown] polyethylene glycol 3350 17 gram oral powder packet 17 g PO DAILY #30 packets 07/08/20 [Rx Last Taken Unknown] polysaccharide iron complex 150 mg iron capsule 150 mg PO DAILYCM #30 caps 07/08/20 [Rx Last Taken Unknown] potassium chloride 20 mEq tablet,extended release(part/cryst) 20 meq PO BIDCM #30 tabs 07/08/20 [Rx Last Taken Unknown] gabapentin 300 mg capsule 300 mg PO TID 01/26/21 [History Last Taken Unknown] prednisone 10 mg tablet 10 mg PO .COMPLEX #30 tabs 01/26/21 [Rx Last Taken Unknown] lisinopril 2.5 mg tablet See Rx Instructions .Route .COMPLEX #90 TABLETS 06/09/21 [Rx Last Taken Unknown] carvedilol 12.5 mg tablet 12.5 mg PO BID #180 tabs 11/04/21 [Rx Last Taken Unknown] oxycodone-acetaminophen 5 mg-325 mg tablet 1 tab PO Q6H PRN PRN Pain 3 days #12 TABLETS 07/11/22 [Rx Last Taken Unknown] oxycodone 5 mg tablet 5 mg PO Q6H PRN pain 5 days #20 tabs 07/13/22 [Rx Last Taken Unknown] Allergy/AdvReac Type Severity Reaction Status Date / Time diclofenac [From Voltaren] Allergy Rash Verified 07/13/22 16:33 acetaminophen [From Vicodin] AdvReac Other Verified 07/13/22 16:33 hydrocodone [From Vicodin] AdvReac Other Verified 07/13/22 16:33 Family History Mother Diabetes Heart disease Hypertension Hyperlipidemia Father Diabetes Heart disease Hypertension Hyperlipidemia Surgical History History of History of gastric bypass History of herniorrhaphy History of left heart catheterization (12/05/18) History of open reduction and internal fixation (ORIF) procedure History of open reduction and internal fixation (ORIF) procedure History of tonsillectomy Hx of cholecystectomy Social History (Updated 07/13/22 @ 19:[address] José Antonio Flood MD) household members: family Smoking Status: Former smoker substance use type: does not use ROS ROS ED Constitutional Constitutional ED: Denies chills, fever(s), subjective, sweats or weight loss Musculoskeletal Musculoskeletal: Denies back pain, myalgias or neck pain Neurologic Neurologic: Denies headache(s), paresthesias or weakness Hematologic/Lymphatic Hematologic/Lymphatic: Denies easy bleeding, easy bruising or lymphadenopathy EXAM Physical Exam Const Vital Signs: 07/13/22 16:31 Temperature 98.9 F Temperature Source Temporal Pulse Rate 64 Respiratory Rate 20 H Blood Pressure 134/60 H Blood Pressure Mean 84 Pulse Ox 96 Oxygen Delivery Method Room Air Positive well nourished, well developed and obese Constitutional Narrative: Patient appears uncomfortable. General Appearance ED: well developed; Negative for cyanotic, diaphoretic or NAD Nutritional Appearance: obese HEENT Reports moist mucous membranes HEENT Narrative: Ears normal. Nares patent. No evidence of dental trauma. normocephalic and atraumatic Eyes PERRL and EOMs intact bilaterally Resp normal respiratory effort and clear to auscultation bilaterally Cardio regular rate, regular rhythm, S1 normal heart sound, S2 normal heart sound and no murmurs Back/Spine no CVA tenderness Cervical Spine: Negative for cervical spine tenderness Thoracic Spine / Upper Back: Negative for thoracic spinal tenderness Extremity Negative for normal to inspection or full ROM Extremity Narrative: There is pain ovation of the proximal left humerus. There is no pain ovation of the clavicle or AC joint. Axillary, median, radial and ulnar function intact. Neuro oriented x3, CN's II-XII intact bilaterally, No moves all extremities, no focal motor deficits and no sensory deficits noted Sensorium / Orientation: alert Psych mental status grossly normal Skin Lesions: no lesions Rashes: no rashes Trauma: no lacerations or abrasions MDM MDM MDM Narrative Medical decision making narrative: Patient with due to proximal left humeral fracture. We will have nurse apply a proper sling and swath and prescribed pain medicine. Discharge Plan Triage Chief Complaint: Upper Extremity Injury ED Provider: José Antonio Flood Dx/Rx/DC Orders Clinical Impression: Humerus surgical neck fracture, Obesity, Essential hypertension, Pain due to fracture Instructions: ED Fracture, Shoulder Prescriptions: New oxycodone 5 mg tablet 5 mg PO Q6H PRN (Reason: pain) 5 Days Qty: 20 0RF No Action famotidine 20 mg tablet 20 mg PO BID gabapentin 300 mg capsule 300 mg PO TID prednisone 10 mg tablet 10 mg PO .COMPLEX Qty: 30 0RF Rx Instructions: Take 4 pills for 3 days, 3 pills for 3 days, 2 pills for 3 days, take 1 pill for 3 days paroxetine HCl 30 MG tablet 30 mg PO DAILY furosemide 40 MG tablet 40 mg PO DAILY calcium carbonate-vitamin D3 1 TABLET tablet 1 tab PO BIDCM cholecalciferol (vitamin D3) 1,000 UNIT tablet 1,000 unit PO DAILY bupropion HCl 150 MG tablet sustained-release 12 hr 150 mg PO BID Qty: 60 0RF polyethylene glycol 3350 17 GM packet 17 g PO DAILY Qty: 30 0RF polysaccharide iron complex 150 MG capsule 150 mg PO DAILYCM Qty: 30 0RF acetaminophen 500 MG tablet 1,000 mg PO Q8 0RF potassium chloride 20 MEQ tablet 20 meq PO BIDCM Qty: 30 0RF melatonin 10 MG tablet 10 mg PO QHS 0RF Viviscal 1 tab PO BIDCM 0RF oxycodone-acetaminophen 5-325 mg tablet 1 tab PO Q6H PRN PRN (Reason: Pain) 3 Days Qty: 12 0RF lisinopril 2.5 mg tablet See Rx Instructions .ROUTE .COMPLEX Qty: 90 4RF Dose Instruction: TAKE 1 TABLET BY MOUTH DAILY Rx Instructions: TAKE 1 TABLET BY MOUTH DAILY carvedilol 12.5 mg tablet 12.5 mg PO BID Qty: 180 3RF Primary Care Provider: Kei Pineda Referrals: Kei Pineda DO [Primary Care Provider] - Disposition Disposition: Home, Self Care
[2022-07-13] MEDS: oxyCODONE 5 MG Tablet PO (19:19)
== END 2022-07-13 19:24 | disposition home or self-care (01) ==
PROVIDERS: Emergency Provider Emergency Medicine; PCP Student in an Organized Health Care Education/Training Program; Visit Provider Emergency Medicine
DX: S42.212A Unspecified displaced fracture of surgical neck of left humerus, initial encounter for closed fracture (principal); J44.9 Chronic obstructive pulmonary disease, unspecified; Z87.891 Personal history of nicotine dependence; E66.9 Obesity, unspecified; I10 Essential (primary) hypertension; W18.30XA Fall on same level, unspecified, initial encounter
CPT/HCPCS: 99283

== ENCOUNTER → 2022-08-09 | Outpatient (CLI) | payer MEDICARE, OTHER, SELFPAY ==
--- NOTE | 2022-08-09 14:07 | CT_ITS ---
EXAM: CT LEFT UPPER EXTREMITY WITHOUT INTRAVENOUS CONTRAST CLINICAL INDICATION: PAIN IN LEFT SHOULDER TECHNIQUE: Helically acquired images were obtained of the left upper extremity without intravenous contrast. 2-D reformats were performed by the technologist. This CT exam was performed using one or more of the following dose reduction techniques: automated exposure control, adjustment of the mA and/or kV according to patient size, and/or use of iterative reconstruction technique. This report was created using [employer] report generation technology. COMPARISON: None. FINDINGS: BONES/JOINTS: There is a fracture of the humeral neck extending up to the greater tuberosity. Fracture also extends to the inferior most aspect of the articulating surface of the humeral head. There is no dislocation identified. There appears to be a soft tissue component seen within the greater tuberosity with loss of cortex possibly representing malignancy. Evaluation with MRI may be beneficial. No sclerotic or destructive changes. SOFT TISSUES: Unremarkable. No soft tissue swelling or gas. No radiopaque foreign body. CT/Extremity Upper without Contra IMPRESSION: Fracture the humeral neck and greater tuberosity with a questionable soft tissue component seen in the greater tuberosity. Further evaluation with MRI may be beneficial to exclude malignancy. Electronically Signed: Barry Dowling MD at 16:26 EST ,
== END | disposition home or self-care (01) ==
LOC: CT 14:07
PROVIDERS: PCP Student in an Organized Health Care Education/Training Program; Visit Provider Physician Assistant
DX: M25.512 Pain in left shoulder (principal); S42.222D 2-part displaced fracture of surgical neck of left humerus, subsequent encounter for fracture with routine healing
CPT/HCPCS: 73200

== ENCOUNTER 2022-10-29 13:51 | Inpatient (IN) | payer MEDICARE, OTHER, SELFPAY ==
[2022-10-29] VITALS (12 sets, daily range): BP systolic 82–113; BP diastolic 30–89; PULSE 80–86; RESP 14–18; TEMP 36.2–36.7; O2SAT 75–98; BMI 37.8; BMI 37.3
--- NOTE | 2022-10-29 14:01 | ED.RN ---
pt reports has been dizzy this am so she was trying to take it easy. does not typically wear o2. sats 88% perfect wave form. placed on 2 lo2
--- NOTE | 2022-10-29 14:32 | RAD_ITS ---
STUDY: X-RAY - RIGHT TIBIA AND FIBULA REASON FOR EXAM: Female, 72 years old. Fall. Right leg pain. TECHNIQUE: AP and lateral view(s) of the tibia and fibula were obtained. COMPARISON: Right knee, May 12, 2020. FINDINGS: There is demineralization of the tibia. There is demineralization of the fibula. There is no acute fracture, dislocation or destructive osseous pathology. There are healed fractures of the mid tibial shaft and proximal fibular shaft. Question healed fracture of the medial tibial plateau. Degenerative changes of the knee and ankle. There are multiple calcifications in the soft tissues thought to be phleboliths. Generalized edema. RAD/Tibia & Fibula 2 Views IMPRESSION: 1. Osteopenia and evidence of remote fractures. There is no acute fracture or dislocation. 2. Degenerative changes of the knee and ankle. Electronically Signed: Jaspreet Borrego DO at 16:23 EDT ,
--- NOTE | 2022-10-29 14:32 | CT_ITS ---
STUDY: CT CHEST, ABDOMEN T PELVIS WITHOUT CONTRAST REASON FOR EXAM: Female, 72 years old. Trauma RADIATION DOSAGE (If Supplied By Facility): CTDIvol = ( 21.54 ) mGy, DLP = ( 3060.34 ) mGycm TECHNIQUE: Transaxial imaging was performed without the administration of intravenous contrast material. Individualized dose optimization techniques were used for this CT. COMPARISON: CTA chest 10/15/2018 FINDINGS: CHEST Bibasilar dependent changes without consolidation, mass lesion or pneumothorax. No pleural effusion. Stable mild cardiomegaly. No pericardial effusion. Scattered coronary artery calcifications present. Calcified mediastinal lymph nodes. Normal hilar regions. Normal unenhanced pulmonary arteries. Normal aorta arch and descending thoracic aorta. Comminuted fracture of the left humeral neck and head with avulsion fracture of the greater tuberosity. Probable nondisplaced fractures of the left seventh, eighth, ninth ribs posteriorly. Stable multilevel biconcave compression fractures ABDOMEN Normal liver. Cholecystectomy changes. Normal spleen. Normal pancreas. Normal bilateral adrenal glands. Bilateral cortical cysts. No hydronephrosis bilaterally. Punctate nonobstructing left renal calculus. Prior gastric surgery. Normal small intestine. Normal colon. There is non-visualization of the appendix. Normal abdominal aorta. Normal inferior vena cava. Normal retroperitoneum. Surgical changes from prior ventral hernia repair. Multiple biconcave compression fractures L1-L5 of uncertain chronicity. PELVIS Normal urinary bladder. There is no pelvic fluid. There is no pelvic lymphadenopathy or mass lesion. Bilateral femoral fixators partially imaged. Minimally displaced fracture left inferior pubic ramus. CT/CT Chest, Abd, Pelvis WO Cont IMPRESSION: Comminuted fractures of the left humeral neck and head. Multiple left posterior rib fractures, nondisplaced. Minimally displaced fracture left inferior pubic ramus. Multiple thoracolumbar biconcave compression fractures of uncertain chronicity in the lumbar spine, chronic in the thoracic spine by comparison with prior study. No acute pulmonary findings. No injury to solid viscera. Electronically Signed: Scott Swanson MD at 16:35 EDT ,
--- NOTE | 2022-10-29 14:35 | ED.VIS.FALL ---
HPI HPI - Fall History of Present Illness Chief Complaint: Fall Informant: patient Occured/Mechanism Occurred: Today Narrative Narrative: Patient presents via EMS after fall down 3 or 4 steps. She states she lost her balance going up some steps and fell backward. She is complaining of severe pain to her right knee. She has had prior hip surgery bilaterally and states that she has rods in her femurs. She also had a recent left humerus fracture. She complains of right knee pain along with neck pain. She did not lose consciousness. She is not on anticoagulants. [facility] Medical History Anemia Bilateral pleural effusion COPD (chronic obstructive pulmonary disease) Depression Dilated cardiomyopathy Essential hypertension GERD (gastroesophageal reflux disease) Obesity Obstructive sleep apnea Osteoarthritis Osteoporosis Home Medications famotidine 20 mg tablet 20 mg PO BID gerd 03/06/20 [History Last Taken 05/09/20] calcium carbonate 500 mg-vitamin D3 5 mcg (200 unit) tablet 1 tab PO BIDCM supplement 05/09/20 [History Last Taken 05/09/20] furosemide 40 mg tablet 40 mg PO DAILY fluid 05/09/20 [History Last Taken 05/09/20] paroxetine HCl 30 mg tablet 30 mg PO DAILY depression 05/09/20 [History Last Taken 05/09/20] cholecalciferol (vitamin D3) 25 mcg (1,000 unit) tablet 1,000 unit PO DAILY Supplement 05/12/20 [History Last Taken Unknown] Viviscal 1 tab PO BIDCM 07/08/20 [Rx Last Taken Unknown] bupropion HCl 150 mg tablet,12 hr sustained-release 150 mg PO BID ##60 07/08/20 [Rx Last Taken Unknown] polysaccharide iron complex 150 mg iron capsule 150 mg PO DAILYCM #30 caps 07/08/20 [Rx Last Taken Unknown] potassium chloride 20 mEq tablet,extended release(part/cryst) 20 meq PO BIDCM #30 tabs 07/08/20 [Rx Last Taken Unknown] gabapentin 300 mg capsule 300 mg PO TID PRN Pain 01/26/21 [History Last Taken Unknown] carvedilol 12.5 mg tablet 12.5 mg PO BID #180 tabs 11/04/21 [Rx Last Taken Unknown] acetaminophen 500 mg tablet 1,000 mg PO Q8 PRN Pain 10/29/22 [History Last Taken Unknown] lisinopril 2.5 mg tablet 2.5 mg PO DAILY 10/29/22 [History Last Taken Unknown] Allergy/AdvReac Type Severity Reaction Status Date / Time diclofenac [From Voltaren] Allergy Rash Verified 07/13/22 16:33 acetaminophen [From Vicodin] AdvReac Other Verified 07/13/22 16:33 hydrocodone [From Vicodin] AdvReac Other Verified 07/13/22 16:33 Family History Mother Diabetes Heart disease Hypertension Hyperlipidemia Father Diabetes Heart disease Hypertension Hyperlipidemia Surgical History History of History of gastric bypass History of herniorrhaphy History of left heart catheterization (12/05/18) History of open reduction and internal fixation (ORIF) procedure History of open reduction and internal fixation (ORIF) procedure History of tonsillectomy Hx of cholecystectomy Social History household members: family Smoking Status: Former smoker substance use type: does not use ROS ROS ED Constitutional Constitutional ED: Denies chills or fever(s) Eyes Eyes: Denies change in vision or discharge from eye(s) ENT ENT ED: Denies discharge from eye(s), rhinorrhea or sore throat Cardiovascular Cardiovascular: Denies chest pain or palpitations Respiratory/Chest Respiratory/Chest: Denies cough or dyspnea Gastrointestinal Gastrointestinal: Denies abdominal pain, nausea or vomiting Genitourinary Genitourinary ED: Denies dysuria Musculoskeletal Musculoskeletal: Reports extremity pain and neck pain; Denies back pain Integumentary Denies Abrasions or rash Neurologic Neurologic: Denies headache(s) or weakness Allergic/Immunologic Allergic/Immunologic ED: Denies lip swelling or urticaria EXAM Physical Exam Const Vital Signs: 10/29/22 13:55 10/29/22 14:02 10/29/22 14:03 Temperature 97.9 F Temperature Source Oral Pulse Rate 81 Respiratory Rate 18 Respiratory Effort Normal Respiratory Pattern Normal Blood Pressure 113/55 L Blood Pressure Mean 74 Pulse Ox 88 94 Oxygen Delivery Method Room Air Nasal Cannula Oxygen Flow Rate (L/min) 2 10/29/22 16:22 10/29/22 16:38 10/29/22 16:38 Temperature Temperature Source Pulse Rate 81 80 Respiratory Rate 14 16 Respiratory Effort Respiratory Pattern Blood Pressure 107/89 H 109/49 L Blood Pressure Mean 95 69 Pulse Ox 75 94 Oxygen Delivery Method Room Air Nasal Cannula Oxygen Flow Rate (L/min) 2 Positive well nourished and well developed General Appearance ED: well developed HEENT Reports normocephalic and head/scalp atraumatic Eyes PERRL and EOMs intact bilaterally Neck supple Chest Wall inspection of chest normal and palpation of chest normal Resp normal respiratory effort and clear to auscultation bilaterally Cardio regular rate and regular rhythm GI normal to inspection, nondistended, normoactive bowel sounds Palpation: soft Extremity Extremity Narrative: No tenderness in the left lower extremity. Right leg is immobilized in an air splint. Good distal pulses and sensation. Can wiggle toes. Neuro oriented x3 and no sensory deficits noted Sensorium / Orientation: alert Psych mental status grossly normal Skin no rashes or lesions noted MDM MDM MDM Narrative Medical decision making narrative: Patient placed on vehicle monitor technician. She was mildly hypoxic at 88% on room air on arrival and placed on 2 L nasal cannula. Sats are in the mid 90s at the time of my exam. Labwork obtained to evaluate for leukocytosis, anemia, and electrolyte derangement. Patient sent for CT scan of the head, C-spine, chest, abdomen, and pelvis. X-rays of the right femur and right tib-fib are obtained. Patient given 4 mg of morphine. History & Record Review Discussion w/independent historian: EMS personnel Lab Data Attestation: I reviewed the patient's lab results. Labs: Laboratory Results - last 24 hr 10/29/22 10/29/22 10/29/22 15:00 15:00 15:00 WBC 12.2 H RBC 4.14 L Hgb 11.5 L Hct 36.9 L MCV 89.1 MCH 27.8 MCHC 31.2 L RDW Std Deviation 47.3 H RDW Coeff of Joe 14.6 Plt Count 236 MPV 10.2 Immature Gran % (Auto) 0.600 Neut % (Auto) 84.5 H Lymph % (Auto) 8.9 L [place] % (Auto) 5.6 Eos % (Auto) 0.1 Baso % (Auto) 0.3 Absolute Neuts (auto) 10.3 H Absolute Lymphs (auto) 1.08 Nucleated RBC % 0 PT 14.1 INR 1.1 APTT 27.9 Sodium 138 Potassium 4.6 Chloride 108 H Carbon Dioxide 27.0 Anion Gap 3 L BUN 21 H Creatinine 0.87 Estim Creat Clear Calc 76.04 Est GFR (MDRD) Af Amer 82 Est GFR (MDRD) Non-Af 67 BUN/Creatinine Ratio 24.1 H Glucose 129 H Calcium 9.4 Total Bilirubin 0.80 Direct Bilirubin 0.24 AST 28 ALT 25 Alkaline Phosphatase 83 Total Protein 6.4 Albumin 3.3 Globulin 3.1 Radiography Diagnostic Testing: Clinical Impression(s) from Imaging Studies Chest/Abdomen/Pelvis CT 10/29/22 14:32 IMPRESSION: Comminuted fractures of the left humeral neck and head. Multiple left posterior rib fractures, nondisplaced. Minimally displaced fracture left inferior pubic ramus. Multiple thoracolumbar biconcave compression fractures of uncertain chronicity in the lumbar spine, chronic in the thoracic spine by comparison with prior study. No acute pulmonary findings. No injury to solid viscera. Electronically Signed: Scott Swanson MD at 16:35 EDT Reading Location ID and State: [facility] / [place] Tel , Service support , Tibia/Fibula X-Ray 10/29/22 14:32 IMPRESSION: 1. Osteopenia and evidence of remote fractures. There is no acute fracture or dislocation. 2. Degenerative changes of the knee and ankle. Electronically Signed: Jaspreet Borrego DO at 16:23 EDT Reading Location ID and State: [address] [place] [address] Tel [phone], Service support , Brain CT 10/29/22 15:20 IMPRESSION: Volume loss with chronic white matter changes. No acute intracranial findings. Electronically Signed: Scott Swanson MD at 15:58 EDT Reading Location ID and State: [facility] / [place] Tel , Service support , Cervical Spine CT 10/29/22 15:20 IMPRESSION: Degenerative changes. No acute fracture of the cervical spine. Electronically Signed: Scott Swanson MD at 16:04 EDT , Femur X-Ray 10/29/22 15:30 IMPRESSION: 1. Remote right hip fracture with internal fixation. 2. Osteopenia and degenerative changes of the hip and knee. Electronically Signed: Jaspreet Borrego DO at 16:25 EDT , Treatment and Re-Evaluation Narrative: CBC was a white count of 12.2 with 84% neutrophils. Hemoglobin is 11.5. Coags are unremarkable. Chemistry studies unremarkable. Glucose is 129. LFTs normal. Right femur and tib-fib x-rays per my interpretation reveal chronic arthritic changes but no evidence of acute fracture. There is evidence of an old fracture at the right hip with orthopedic hardware in place. CT scan of the head reveals chronic involutional changes. CT scan of the C-spine reveals degenerative changes with no acute fracture. CT scan of the chest, abdomen, and pelvis reveal evidence of left humeral neck and head fractures. This was present from an injury in late July. There are probable nondisplaced rib fractures of the left seventh, eighth, and ninth posterior ribs. There is no evidence of pneumothorax or lung injury. There are multilevel biconcave compression fractures noted in the thoracolumbar spine. They do comment that at least in the thoracic spine this appears stable when compared to prior studies. There is a minimally displaced fracture in the left inferior pubic ramus. Nursing staff did take the patient off of oxygen. She did drop her sats again and was placed back on 2 L. She is given 5 mg of p.o. oxycodone at this time. I will speak with hospitalist regarding admission for pain control and her hypoxia. Discharge Plan Triage Chief Complaint: Fall ED Provider: Manda Lucia Dx/Rx/DC Orders Clinical Impression: Fall, Hypoxia, Right knee sprain, Fracture of pubic ramus, Closed traumatic nondisplaced fracture of rib Prescriptions: No Action famotidine 20 mg tablet 20 mg PO BID gabapentin 300 mg capsule 300 mg PO TID PRN (Reason: Pain) paroxetine HCl 30 MG tablet 30 mg PO DAILY furosemide 40 MG tablet 40 mg PO DAILY calcium carbonate-vitamin D3 1 TABLET tablet 1 tab PO BIDCM cholecalciferol (vitamin D3) 1,000 UNIT tablet 1,000 unit PO DAILY bupropion HCl 150 MG tablet sustained-release 12 hr 150 mg PO BID Qty: 60 0RF polysaccharide iron complex 150 MG capsule 150 mg PO DAILYCM Qty: 30 0RF potassium chloride 20 MEQ tablet 20 meq PO BIDCM Qty: 30 0RF Viviscal 1 tab PO BIDCM 0RF acetaminophen 500 MG tablet 1,000 mg PO Q8 PRN (Reason: Pain) lisinopril 2.5 mg tablet 2.5 mg PO DAILY Rx Instructions: TAKE 1 TABLET BY MOUTH DAILY carvedilol 12.5 mg tablet 12.5 mg PO BID Qty: 180 3RF Primary Care Provider: Kei Pineda Referrals: Kei Pinead DO [Primary Care Provider] - Disposition Disposition: Acute Care Hospital [facility]
[2022-10-29] MEDS: Ondansetron 4 MG/2 ML Vial IV (14:56)
[2022-10-29] MEDS: Morphine 4 MG/ML Syringe IV (14:58)
--- NOTE | 2022-10-29 15:20 | CT_ITS ---
INDICATION: Trauma, head injury EXAMINATION: CT BRAIN - CT Head or Brain W/O Contrast Injection TECHNIQUE: Multiple axial images were obtained of the head without intravenous contrast. A radiation dose optimization technique was used for this scan. IV Contrast dosage and agent: None. COMPARISON: 07/11/2022 FINDINGS: BRAIN PARENCHYMA: No intra- or extra-axial hemorrhage. No evidence of acute infarct. No intracranial mass or mass effect. Posterior fossa structures are unremarkable. Stable volume loss with low attenuation of the periventricular white matter typical of chronic small vessel disease. CSF SPACES: Appropriate for age. No hydrocephalus. Basal cisterns are patent. CALVARIUM, SKULL BASE, PARANASAL SINUSES AND MASTOID AIR CELLS: Clear. No acute fracture. CT/Brain/Head without Contrast IMPRESSION: Volume loss with chronic white matter changes. No acute intracranial findings. Electronically Signed: Scott Swanson MD at 15:58 EDT ,
--- NOTE | 2022-10-29 15:20 | CT_ITS ---
INDICATION: Trauma, injury EXAMINATION: CT CERVICAL SPINE - CT Spine Cervical W/O Contrast Injection TECHNIQUE: Helically acquired images were obtained of the cervical spine. 2D reformatted images were reviewed. A radiation dose optimization technique was used for this scan. IV Contrast dosage and agent: None. COMPARISON: 07/11/2022 FINDINGS: VERTEBRAE: No acute fracture of the cervical spine. Stable 3 mm spondylolisthesis C3-4.. DISCS and SPINAL CANAL: Degenerative discogenic changes. No critical stenosis. NECK SOFT TISSUES: No prevertebral soft tissue swelling. LUNG APICES: No acute pulmonary findings. CT/Spine Cervical without Contras IMPRESSION: Degenerative changes. No acute fracture of the cervical spine. Electronically Signed: Scott Swanson MD at 16:04 EDT ,
[2022-10-29 15:22] LABS: Absolute Lymphocyte Count 1.08 X10^3/uL (0.83-4.51); Absolute Neutrophil Count 10.3 X10^3/uL (2.0-7.7); Basophil# 0.04 X10^3/uL; Basophil% 0.3 % (0-1); Eosinophil# 0.01 X10^3/uL; Eosinophils% 0.1 % (0-5); Hematocrit 36.9 % (37-47); Hemoglobin 11.5 g/dL (12.0-15.0); Lymphocyte # 1.08 X10^3/ul (0.83-4.51); Lymphocyte % 8.9 % (19-41); Mean Corp Hgb Conc 31.2 g/dL (32-36); Mean Corpuscular Hgb 27.8 pg (27.0-32.0); Mean Corpuscular Volume 89.1 fL (81-99); Mean Platelet Vol. 10.2 fl (6.2-12.0); Monocyte# 0.68 X10^3/uL; Monocyte% 5.6 % (0-10); NRBC Flagged by Analyzer 0 % (0-5); Neutrophil # 10.31 X10^3/uL (2.7-7.7); Neutrophil % 84.5 % (47-70); Platelet Count 236 K/mm3 (150-450); RBC Distribution Width CV 14.6 % (11.6-14.6); RBC Distribution Width SD 47.3 fl (35.1-43.9); Red Blood Count 4.14 M/mm3 (4.2-5.4); White Blood Count 12.2 K/mm3 (4.4-11.0)
--- NOTE | 2022-10-29 15:30 | RAD_ITS ---
STUDY: X-RAY - RIGHT FEMUR REASON FOR STUDY: Female, 72 years old. Injury. TECHNIQUE: AP and lateral view(s) of the femur. COMPARISON: Right knee, May 26, 2020 FINDINGS: There is a remote appearing intratrochanteric fracture with evidence for internal fixation. The femoral shaft is intact. Mild demineralization. Degenerative changes of the hip and knee. Normal visualized soft tissue structure. RAD/Femur Min 2 Views IMPRESSION: 1. Remote right hip fracture with internal fixation. 2. Osteopenia and degenerative changes of the hip and knee. Electronically Signed: Jaspreet Borrego DO at 16:25 EDT ,
[2022-10-29 15:38] LABS: AST(SGOT) 28 U/L (15-37); Alanine Aminotransfer ALT/SGPT 25 U/L (13-56); Albumin, Serum 3.3 g/dL (3.2-5.0); Alkaline Phosphatase 83 U/L (45-117); Anion Gap 3 (5-15); BUN 21 mg/dL (7-18); BUN/Creat Ratio 24.1 RATIO (10-20); Bilirubin, Direct 0.24 mg/dL (0.00-0.30); Calcium,Total 9.4 mg/dL (8.5-10.1); Chloride 108 mmol/L (98-107); Creatinine, Serum 0.87 mg/dL (0.55-1.02); EST Glomerular Filtration Rate 67 mL/min (>60); Est Glom Filt Rate - Afr Amer 82 mL/min (>60); Estimated Creatinine Clearance 76.04 ml/min; Globulin 3.1 g/dL (2.2-4.2); Glucose 129 mg/dL (74-106); Potassium 4.6 mmol/L (3.5-5.1); Protein, Total 6.4 g/dL (6.4-8.2); Sodium Level 138 mmol/L (136-145)
[2022-10-29 15:44] LABS: International Normalized Ratio 1.1; Prothrombin Time (Protime)PT. 14.1 SECONDS (11.7-14.9)
[2022-10-29 15:45] LABS: Partial Thromboplast Time 27.9 Seconds (24.1-36.2)
[2022-10-29] MEDS: oxyCODONE 5 MG Tablet PO (16:51)
--- NOTE | 2022-10-29 17:17 | NURSING ---
1630-attempted to wean o2 since pt reports that does not have any at home and sats 97% on 2l but desated to 84%. o2 back on at 2l. pt asking for more for pain rt knee. ice on for comfort. denies any needs for having to void yet and lower clothing still on. pt told that d/t pain and inablitly to prob care for self that would more than likely need admitted and pt refusing telling family that theres no way that can stay here, and that i can use my old brace and lift chair.
--- NOTE | 2022-10-29 17:20 | HP.PCM.HOS_ITS ---
HPI - General General Date of Admission: 10/29/22 Date of Service: 10/29/22 Chief Complaint: Fall backward on the steps and injured right knee, broken ribs and pelvic bones. HPI Narrative BETH HARTMAN, is a 72 F with multiple comorbidities was brought to ED by EMS squad for severe right knee pain. Patient was walking and fell down 3-4 steps backward and rotated her right knee. She has history of multiple orthopedic surgeries including prior bilateral hip surgery, serina in femur, recent left humeral neck fracture in July 2022. At that time she came to ED. EMS vitals were normal. She did not lose consciousness. Denies headache, nausea vomiting blurry vision. She has neck pain but she states she has chronic neck pain and denies injury in the neck. In ED, she had extensive imaging studies which shows minimally displaced left inferior pubic ramus fracture and multiple left posterior rib fracture nondisplaced. Commuted fracture of left humeral neck and head which is since July 2022. She is more concerned of right knee pain which is also swollen and bluish in discoloration. ED vitals shows blood pressure 109/49, heart rate normal. She denies chest pain or shortness of breath. No EKG in ED. [facility] Medical History Anemia Bilateral pleural effusion COPD (chronic obstructive pulmonary disease) Depression Dilated cardiomyopathy Essential hypertension GERD (gastroesophageal reflux disease) Obesity Obstructive sleep apnea Osteoarthritis Osteoporosis Home Medications famotidine 20 mg tablet 20 mg PO BID gerd 03/06/20 [History Last Taken 05/09/20] calcium carbonate 500 mg-vitamin D3 5 mcg (200 unit) tablet 1 tab PO BIDCM supplement 05/09/20 [History Last Taken 05/09/20] furosemide 40 mg tablet 40 mg PO DAILY fluid 05/09/20 [History Last Taken 05/09/20] paroxetine HCl 30 mg tablet 30 mg PO DAILY depression 05/09/20 [History Last Taken 05/09/20] cholecalciferol (vitamin D3) 25 mcg (1,000 unit) tablet 1,000 unit PO DAILY Supplement 05/12/20 [History Last Taken Unknown] Viviscal 1 tab PO BIDCM 07/08/20 [Rx Last Taken Unknown] bupropion HCl 150 mg tablet,12 hr sustained-release 150 mg PO BID ##60 07/08/20 [Rx Last Taken Unknown] polysaccharide iron complex 150 mg iron capsule 150 mg PO DAILYCM #30 caps 07/08/20 [Rx Last Taken Unknown] potassium chloride 20 mEq tablet,extended release(part/cryst) 20 meq PO BIDCM #30 tabs 07/08/20 [Rx Last Taken Unknown] gabapentin 300 mg capsule 300 mg PO TID PRN Pain 01/26/21 [History Last Taken Unknown] carvedilol 12.5 mg tablet 12.5 mg PO BID #180 tabs 11/04/21 [Rx Last Taken Unknown] acetaminophen 500 mg tablet 1,000 mg PO Q8 PRN Pain 10/29/22 [History Last Taken Unknown] lisinopril 2.5 mg tablet 2.5 mg PO DAILY 10/29/22 [History Last Taken Unknown] Allergy/AdvReac Type Severity Reaction Status Date / Time diclofenac [From Voltaren] Allergy Rash Verified 07/13/22 16:33 acetaminophen [From Vicodin] AdvReac Other Verified 07/13/22 16:33 hydrocodone [From Vicodin] AdvReac Other Verified 07/13/22 16:33 Family History Mother Diabetes Heart disease Hypertension Hyperlipidemia Father Diabetes Heart disease Hypertension Hyperlipidemia Surgical History History of History of gastric bypass History of herniorrhaphy History of left heart catheterization (12/05/18) History of open reduction and internal fixation (ORIF) procedure History of open reduction and internal fixation (ORIF) procedure History of tonsillectomy Hx of cholecystectomy Social History household members: family Smoking Status: Former smoker substance use type: does not use ROS ROS Narrative Constitutional: Denies chronic fatigue. She states he is pretty active. No fever, acute recent URI symptoms or flulike symptoms. HEENT: Reports systems reviewed and no addt'l complaints, except as documented Respiratory/Chest: Denies chest pain, shortness of breath at rest. Denies rib pain. CVS: History of nonischemic cardiomyopathy. Gastrointestinal: Denies coffee ground emesis, hematemesis or vomiting Genitourinary: Denies burning urination or new urinary tract symptoms Musculoskeletal: Multiple joint surgeries and replacement. Has rods and screws. Bilateral hip replacement. Spine: Denies back injury or new back pain Neurologic: Denies LOC. No saddle anesthesia.Denies seizure-like activity. Denies stroke. skin: No ulcer. No rash Endocrinology: Reports systems reviewed and no addt'l complaints, except as documented Hematologic/Lymphatic: Reports systems reviewed and no addt'l complaints, except as documented Rest 14 ROS are negative except as mentioned in HPI Vital Signs Vital Signs Vital Signs: 10/29/22 13:55 10/29/22 14:02 10/29/22 14:03 Temperature 97.9 F Temperature Source Oral Pulse Rate 81 Respiratory Rate 18 Respiratory Effort Normal Respiratory Pattern Normal Blood Pressure 113/55 L Blood Pressure Mean 74 Pulse Ox 88 94 Oxygen Delivery Method Room Air Nasal Cannula Oxygen Flow Rate (L/min) 2 10/29/22 16:22 10/29/22 16:38 10/29/22 16:38 Temperature Temperature Source Pulse Rate 81 80 Respiratory Rate 14 16 Respiratory Effort Respiratory Pattern Blood Pressure 107/89 H 109/49 L Blood Pressure Mean 95 69 Pulse Ox 75 94 Oxygen Delivery Method Room Air Nasal Cannula Oxygen Flow Rate (L/min) 2 Weight Weight: 187 lb 2.759 oz Body Mass Index (BMI) 37.8 Physical Exam Narrative General: Alert, Oriented x3, Cooperative HEENT: Atraumatic, PERRLA, EOMI, Normocephalic Oral: Oral mucosa dry. No Gingival or Mucosal Lesions/ Ulcerations Neck: Supple, No JVD, Negative Carotid Bruits Lungs: Air entry diminished in bilateral lung bases. No crepitation/rhonchi. No acute chest wall tenderness. Cardiovascular: Regular rate, Regular Rhythm, Normal S1, Normal S2, No murmurs Abdomen: Bowel Sounds Present, Soft, Non Tender, Non-Distended : No renal angle tenderness. No suprapubic tenderness. Extremities: No edema, Capillary Refill Less than 3 Seconds Skin: No rashes, No breakdown Musculoskeletal: Right knee swollen, tender with bluish discoloration. Mild dilated superficial veins. ROM not attempted. Bilateral hip replacement. Spine: No acute neck tenderness. No acute lumbar spine tenderness. Neurological: Cranial nerves II-XII grossly intact, DTR 2+/4 . No saddle anesthesia. Muscle strength not instrumented because of pain. Gross sensation to touch and pressure are equal and symmetrical on both sides. Psych/Mental Status: Flat affect. In pain. Results Lab / Micro Data Result Diagrams: 10/29/22 15:00 10/29/22 15:00 Labs: Laboratory Results - last 24 hr 10/29/22 15:00: WBC 12.2 H, RBC 4.14 L, Hgb 11.5 L, Hct 36.9 L, MCV 89.1, MCH 27.8, MCHC 31.2 L, RDW Std Deviation 47.3 H, RDW Coeff of Joe 14.6, Plt Count 236, MPV 10.2, Immature Gran % (Auto) 0.600, Neut % (Auto) 84.5 H, Lymph % (Auto) 8.9 L, Garland % (Auto) 5.6, Eos % (Auto) 0.1, Baso % (Auto) 0.3, Absolute Neuts (auto) 10.3 H, Absolute Lymphs (auto) 1.08, Nucleated RBC % 0 10/29/22 15:00: PT 14.1, INR 1.1, APTT 27.9 10/29/22 15:00: Sodium 138, Potassium 4.6, Chloride 108 H, Carbon Dioxide 27.0, Anion Gap 3 L, BUN 21 H, Creatinine 0.87, Estim Creat Clear Calc 76.04, Est GFR (MDRD) Af Amer 82, Est GFR (MDRD) Non-Af 67, BUN/Creatinine Ratio 24.1 H, Glucose 129 H, Calcium 9.4, Total Bilirubin 0.80, Direct Bilirubin 0.24, AST 28, ALT 25, Alkaline Phosphatase 83, Total Protein 6.4, Albumin 3.3, Globulin 3.1 Radiology Impression Chest/Abdomen/Pelvis CT 10/29/22 14:32 IMPRESSION: Comminuted fractures of the left humeral neck and head. Multiple left posterior rib fractures, nondisplaced. Minimally displaced fracture left inferior pubic ramus. Multiple thoracolumbar biconcave compression fractures of uncertain chronicity in the lumbar spine, chronic in the thoracic spine by comparison with prior study. No acute pulmonary findings. No injury to solid viscera. Electronically Signed: Scott Swanson MD at 16:35 EDT Reading Location ID and State: [facility] / [place] Tel , Service support , Tibia/Fibula X-Ray 10/29/22 14:32 IMPRESSION: 1. Osteopenia and evidence of remote fractures. There is no acute fracture or dislocation. 2. Degenerative changes of the knee and ankle. Electronically Signed: Jaspreet Borrego DO at 16:23 EDT Reading Location ID and State: [facility] / [place] Tel [phone], Service support , Brain CT 10/29/22 15:20 IMPRESSION: Volume loss with chronic white matter changes. No acute intracranial findings. Electronically Signed: Scott Swanson MD at 15:58 EDT Reading Location ID and State: [facility] / [place] Tel , Service support , Cervical Spine CT 10/29/22 15:20 IMPRESSION: Degenerative changes. No acute fracture of the cervical spine. Electronically Signed: Scott Swanson MD at 16:04 EDT Reading Location ID and State: [facility] / [place] Tel , Service support , Femur X-Ray 10/29/22 15:30 IMPRESSION: 1. Remote right hip fracture with internal fixation. 2. Osteopenia and degenerative changes of the hip and knee. Electronically Signed: Jaspreet Borrego DO at 16:25 EDT Reading Location ID and State: [facility] / [place] Tel [phone], Service support , Assessment & Plan Assessment/Plan (1) Fall: (2) Fracture of pubic ramus: (3) Closed traumatic nondisplaced fracture of rib: (4) Right knee sprain: PLAN: Plan This is a 72-year-old female who came to ED after fall with no loss of consciousness. 1. Acute left posterior rib fracture and minimally displaced left inferior r amus fracture, acute left knee injury probably soft tissue injury: Patient is being admitted on [facility] floor for pain control PT and OT. Patient feels muscle spasm on right thigh. Orthopedic consult requested. CT chest abdomen and pelvis shows nondisplaced left seventh eighth and ninth ribs posteriorly with no pneumothorax. CT head and C-spine does not show acute abnormality or acute fracture. Tibia-fibula x-ray shows no acute fracture. Femur x-ray shows no acute fracture but remote right hip fracture with internal fixation. She has osteopenia and degenerative changes of hip and knees. Her right knee is concerning to me possible hemarthrosis/hematoma. 2. Chronic systolic heart failure with nonischemic cardiomyopathy: Patient had recent 2D echo January 2021, EF recovered 60%. No RWMA. In 2018 her EF was 30% and coronaries were normal. Continue IV fluid. Patient is dehydrated. Monitor intake and output. 3. COPD: Patient not in acute exacerbation. DuoNeb as needed ordered. 4. Chronic anemia: Baseline hemoglobin has been fluctuating anywhere from 10 to 12 g/dL.? Admission hemoglobin is 11 to 5 g%. Monitor CBC. 5. GERD: Continue Pepcid. 6. Anxiety and depression: Continue Wellbutrin and Paxil. 7. DVT prophylaxis: SCDs, subcu Lovenox after surgery Living will/advanced directive/end of life care: Patient does not have living will or advanced directive. She does not have dilated power of deputy attorney general for health per her and son is next of kin. Her is admitted to [facility]. After discussion of benefits/risks procedures involved with full code, DNR CC arrest and DNR CC, the patient opted for full code. Patient does want artificial life support including intubation, tube feed, ventilator and/chest compression, central venous catheter, vasopressor and DC shock if needed Total time spent in [id number] encounter in discussion of advanced directive 17 minutes. Laboratory Results 10/29/22 15:00: WBC 12.2 H, RBC 4.14 L, Hgb 11.5 L, Hct 36.9 L, MCV 89.1, MCH 27.8, MCHC 31.2 L, RDW Std Deviation 47.3 H, RDW Coeff of Joe 14.6, Plt Count 236, MPV 10.2, Immature Gran % (Auto) 0.600, Neut % (Auto) 84.5 H, Lymph % (Auto) 8.9 L, Garland % (Auto) 5.6, Eos % (Auto) 0.1, Baso % (Auto) 0.3, Absolute Neuts (auto) 10.3 H, Absolute Lymphs (auto) 1.08, Nucleated RBC % 0 10/29/22 15:00: PT 14.1, INR 1.1, APTT 27.9 10/29/22 15:00: Sodium 138, Potassium 4.6, Chloride 108 H, Carbon Dioxide 27.0, Anion Gap 3 L, BUN 21 H, Creatinine 0.87, Estim Creat Clear Calc 76.04, Est GFR (MDRD) Af Amer 82, Est GFR (MDRD) Non-Af 67, BUN/Creatinine Ratio 24.1 H, Gl ucose 129 H, Calcium 9.4, Total Bilirubin 0.80, Direct Bilirubin 0.24, AST 28, ALT 25, Alkaline Phosphatase 83, Total Protein 6.4, Albumin 3.3, Globulin 3.1 Clinical Impression(s) from Imaging Studies Chest/Abdomen/Pelvis CT 10/29/22 14:32 IMPRESSION: Comminuted fractures of the left humeral neck and head. Multiple left posterior rib fractures, nondisplaced. Minimally displaced fracture left inferior pubic ramus. Multiple thoracolumbar biconcave compression fractures of uncertain chronicity in the lumbar spine, chronic in the thoracic spine by comparison with prior study. No acute pulmonary findings. No injury to solid viscera. Tibia/Fibula X-Ray 10/29/22 14:32 IMPRESSION: 1. Osteopenia and evidence of remote fractures. There is no acute fracture or dislocation. 2. Degenerative changes of the knee and ankle. Brain CT 10/29/22 15:20 IMPRESSION: Volume loss with chronic white matter changes. No acute intracranial findings. Cervical Spine CT 10/29/22 15:20 IMPRESSION: Degenerative changes. No acute fracture of the cervical spine. Femur X-Ray 10/29/22 15:30 IMPRESSION: 1. Remote right hip fracture with internal fixation. 2. Osteopenia and degenerative changes of the hip and knee. Charges/Coding Visit Charges Inpatient E&M: 09226 Init Hosp L3 Procedures Hospitalists Procedures: 53825 Advncd Care Plan 30 Min
--- NOTE | 2022-10-29 17:34 | NURSING ---
pt placed in a gown and pericare given. purewick placed. o2 remains on 2l. rt foot with folded towel behind knee. foot cold but pt denies feeling cold and denies blanket. family in at bedside. pt agreeing to be admitted. very painful with any activity
[2022-10-29] MEDS: Lactated Ringers 1,000 ML 100 ML IV (18:55)
[2022-10-29] MEDS: 0.9% Saline Lock 10 ML Syringe IV (18:55)
[2022-10-29] MEDS: Acetaminophen 500 MG Tablet 1000 MG PO (18:56)
[2022-10-29] MEDS: Lactated Ringers 500 ML 999 ML IV (20:48)
[2022-10-29] MEDS: buPROPion (SR) 150 MG Tablet.SA PO (21:06)
[2022-10-29] MEDS: Famotidine 20 MG Tablet PO (21:07)
[2022-10-29] MEDS: Gabapentin 300 MG Capsule PO (22:01)
[2022-10-29 23:55] LABS: Hematocrit 33.7 % (37-47); Hemoglobin 10.7 g/dL (12.0-15.0)
[2022-10-30] VITALS (8 sets, daily range): BP systolic 90–107; BP diastolic 41–83; PULSE 77–86; RESP 16–18; TEMP 36.6–36.9; O2SAT 96–100; BMI 38.4
[2022-10-30] MEDS: oxyCODONE 5 MG Tablet PO (02:44)
[2022-10-30] MEDS: Lactated Ringers 1,000 ML 100 ML IV ×2 (05:28→18:08)
[2022-10-30] MEDS: Acetaminophen 500 MG Tablet 1000 MG PO ×3 (05:29→21:44)
[2022-10-30 06:32] LABS: Absolute Lymphocyte Count 1.29 X10^3/uL (0.83-4.51); Basophil# 0.04 X10^3/uL; Basophil% 0.4 % (0-1); Eosinophil# 0.04 X10^3/uL; Eosinophils% 0.4 % (0-5); Hemoglobin 10.7 g/dL (12.0-15.0); Lymphocyte # 1.29 X10^3/ul (0.83-4.51); Lymphocyte % 13.9 % (19-41); Mean Corp Hgb Conc 30.6 g/dL (32-36); Mean Corpuscular Hgb 27.9 pg (27.0-32.0); Mean Corpuscular Volume 91.4 fL (81-99); Mean Platelet Vol. 10.1 fl (6.2-12.0); Monocyte# 0.85 X10^3/uL; Monocyte% 9.1 % (0-10); NRBC Flagged by Analyzer 0 % (0-5); Neutrophil # 7.04 X10^3/uL (2.7-7.7); Neutrophil % 75.9 % (47-70); Platelet Count 216 K/mm3 (150-450); RBC Distribution Width CV 14.6 % (11.6-14.6); RBC Distribution Width SD 48.8 fl (35.1-43.9); Red Blood Count 3.83 M/mm3 (4.2-5.4); White Blood Count 9.3 K/mm3 (4.4-11.0)
[2022-10-30 06:52] LABS: Anion Gap 0 (5-15); BUN 25 mg/dL (7-18); BUN/Creat Ratio 29.3 RATIO (10-20); Calcium,Total 8.8 mg/dL (8.5-10.1); Chloride 106 mmol/L (98-107); Creatinine, Serum 0.85 mg/dL (0.55-1.02); EST Glomerular Filtration Rate 69 mL/min (>60); Est Glom Filt Rate - Afr Amer 84 mL/min (>60); Glucose 131 mg/dL (74-106); Potassium 4.4 mmol/L (3.5-5.1); Sodium Level 137 mmol/L (136-145)
--- NOTE | 2022-10-30 09:10 | PCM.PN.HOSP ---
Reason for Visit Reason for Visit: Diagnoses Fracture of one rib, unspecified side, initial encounter for closed fracture (10/29/22) Other specified fracture of unspecified pubis, initial encounter for closed fracture (10/29/22) Sprain of unspecified site of right knee, initial encounter (10/29/22) Unspecified fall, initial encounter (10/29/22) Follow-up for severe pain over right knee with debility due to immobility and pain. No urine output. Objective Data Objective Data Vital Signs: Vital Signs Temp Pulse Resp BP Pulse Ox O2 Del Method O2 Flow Rate 97.8 F 80 18 98/83 H 97 Nasal Cannula 2 10/30/22 02:45 10/30/22 02:45 10/30/22 02:45 10/30/22 05:47 10/30/22 02:45 10/30/22 08:20 10/30/22 08:20 Oxygen Flow Rate (L/min) 2 Oxygen Delivery Method Nasal Cannula Weight: 190 lb 7.67 oz Body Mass Index (BMI) 38.4 Intake & Output: Intake and Output for Last 24 Hours 10/28/22 10/29/22 10/30/22 23:59 23:59 23:59 Intake Total 188.33 / 438.33 1741.67 / 1741.67 Balance 188.33 / 438.33 1741.67 / 1741.67 Lab / Micro Data Result Diagrams: 10/30/22 05:30 10/30/22 05:30 Labs: Laboratory Results - last 24 hr 10/29/22 15:00: WBC 12.2 H, RBC 4.14 L, Hgb 11.5 L, Hct 36.9 L, MCV 89.1, MCH 27.8, MCHC 31.2 L, RDW Std Deviation 47.3 H, RDW Coeff of Joe 14.6, Plt Count 236, MPV 10.2, Immature Gran % (Auto) 0.600, Neut % (Auto) 84.5 H, Lymph % (Auto) 8.9 L, [place] % (Auto) 5.6, Eos % (Auto) 0.1, Baso % (Auto) 0.3, Absolute Neuts (auto) 10.3 H, Absolute Lymphs (auto) 1.08, Nucleated RBC % 0 10/29/22 15:00: PT 14.1, INR 1.1, APTT 27.9 10/29/22 15:00: Sodium 138, Potassium 4.6, Chloride 108 H, Carbon Dioxide 27.0, Anion Gap 3 L, BUN 21 H, Creatinine 0.87, Estim Creat Clear Calc 76.04, Est GFR (MDRD) Af Amer 82, Est GFR (MDRD) Non-Af 67, BUN/Creatinine Ratio 24.1 H, Glucose 129 H, Calcium 9.4, Total Bilirubin 0.80, Direct Bilirubin 0.24, AST 28, ALT 25, Alkaline Phosphatase 83, Total Protein 6.4, Albumin 3.3, Globulin 3.1 10/29/22 23:15: Hgb 10.7 L, Hct 33.7 L 10/30/22 05:30: WBC 9.3, RBC 3.83 L, Hgb 10.7 L, Hct 35.0 L, MCV 91.4, MCH 27.9, MCHC 30.6 L, RDW Std Deviation 48.8 H, RDW Coeff of Joe 14.6, Plt Count 216, MPV 10.1, Immature Gran % (Auto) 0.300, Neut % (Auto) 75.9 H, Lymph % (Auto) 13.9 L, [place] % (Auto) 9.1, Eos % (Auto) 0.4, Baso % (Auto) 0.4, Absolute Neuts (auto) 7.0, Absolute Lymphs (auto) 1.29, Nucleated RBC % 0 10/30/22 05:30: Sodium 137, Potassium 4.4, Chloride 106, Carbon Dioxide 31.0, Anion Gap 0 L, BUN 25 H, Creatinine 0.85, Estim Creat Clear Calc 79.20, Est GFR (MDRD) Af Amer 84, Est GFR (MDRD) Non-Af 69, BUN/Creatinine Ratio 29.3 H, Glucose 131 H, Calcium 8.8 Radiography Diagnostic Testing: Radiology Impression Chest/Abdomen/Pelvis CT 10/29/22 14:32 IMPRESSION: Comminuted fractures of the left humeral neck and head. Multiple left posterior rib fractures, nondisplaced. Minimally displaced fracture left inferior pubic ramus. Multiple thoracolumbar biconcave compression fractures of uncertain chronicity in the lumbar spine, chronic in the thoracic spine by comparison with prior study. No acute pulmonary findings. No injury to solid viscera. Electronically Signed: Scott Swanson MD at 16:35 EDT , Tibia/Fibula X-Ray 10/29/22 14:32 IMPRESSION: 1. Osteopenia and evidence of remote fractures. There is no acute fracture or dislocation. 2. Degenerative changes of the knee and ankle. Electronically Signed: Jaspreet Borrego DO at 16:23 EDT Reading Location ID and State: [facility] / [place] Tel [phone], Service support , Brain CT 10/29/22 15:20 IMPRESSION: Volume loss with chronic white matter changes. No acute intracranial findings. Electronically Signed: Scott Swanson MD at 15:58 EDT Reading Location ID and State: [facility] / [place] Tel , Service support , Cervical Spine CT 10/29/22 15:20 IMPRESSION: Degenerative changes. No acute fracture of the cervical spine. Electronically Signed: Scott Swanson MD at 16:04 EDT Reading Location ID and State: [facility] / [place] Tel , Service support , Femur X-Ray 10/29/22 15:30 IMPRESSION: 1. Remote right hip fracture with internal fixation. 2. Osteopenia and degenerative changes of the hip and knee. Electronically Signed: Jaspreet Borrego DO at 16:25 EDT Reading Location ID and State: [address] [place] [address] Tel [phone], Service support , Physical Exam Narrative Patient did not had urine output after admission. Patient was given 500 mill bolus but still did not had urine output. On Ringer lactate 100 mL mL per hour and had about 2 L of fluid. Advised straight cath. Patient still has significant 10 out of 10 right knee pain and swelling and agony. General: Alert, Oriented x3, Cooperative HEENT: Atraumatic, PERRLA, EOMI, Normocephalic Oral: Oral mucosa moist. No Gingival or Mucosal Lesions/ Ulcerations Neck: Supple, No JVD, Negative Carotid Bruits Lungs: Air entry diminished in bilateral lung bases. No crepitation/rhonchi. No acute chest wall tenderness. Cardiovascular: Regular rate, Regular Rhythm, Normal S1, Normal S2, No murmurs Abdomen: Bowel Sounds Present, Soft, Non Tender, Non-Distended : No renal angle tenderness. No suprapubic tenderness. Extremities: No edema, Capillary Refill Less than 3 Seconds Skin: No rashes, No breakdown Musculoskeletal: Right knee swollen, tender with bluish discoloration. Mild dilated superficial veins. ROM not attempted. Bilateral hip replacement. Spine: No acute neck tenderness. No acute lumbar spine tenderness. Neurological: Cranial nerves II-XII grossly intact, DTR 2+/4 . No saddle anesthesia. Muscle strength not instrumented because of pain. Gross sensation to touch and pressure are equal and symmetrical on both sides. Psych/Mental Status: Flat affect. In pain. Assessment & Plan Assessment/Plan (1) Fall: (2) Fracture of pubic ramus: (3) Closed traumatic nondisplaced fracture of rib: (4) Right knee sprain: PLAN: Plan This is a 72-year-old female who came to ED after fall with no loss of consciousness. 1. Acute left posterior rib fracture and minimally displaced left inferior ramus fracture, acute left knee injury probably soft tissue injury: Patient is being admitted on [facility] floor for pain control PT and OT. Patient feels muscle spasm on right thigh. Orthopedic consult requested. CT chest abdomen and pelvis shows nondisplaced left seventh eighth and ninth ribs posteriorly with no pneumothorax. CT head and C-spine does not show acute abnormality or acute fracture. Tibia-fibula x-ray shows no acute fracture. Femur x-ray shows no acute fracture but remote right hip fracture with internal fixation. She has osteopenia and degenerative changes of hip and knees. Her right knee is concerning to me possible hematoma. 10/30: Knee x-ray reviewed. Decreased joint space but does not show possible hemarthrosis. Discussed with Dr. Portillo and requested evaluation to rule out hematoma/ligament injury. She twisted her right knee during fall backwards. Patient does not have true allergy with diclofenac. She had taken Advil/ibuprofen in the past. Started on ibuprofen 600 mg 3 times daily after half an hour of Solu-Medrol 60 mg IV 1 dose. Protonix 40 mg daily. Zanaflex 4 mg every 8 hourly. Famotidine discontinued. BUN 25.Leukocytosis improved. 2. Acute urine retention: Patient had more than 2 L of fluid still did not put out urine. Bladder scan done earlier showed empty bladder. Straight cath advised. Patient also has left pubic inferior ramus fracture therefore my interpretation. Creatinine is normal. Chronic systolic heart failure with nonischemic cardiomyopathy: Patient had recent 2D echo January 2021, EF recovered 60%. No RWMA. In 2018 her EF was 30% and coronaries were normal. Patient was given IV fluid. She was dehydrated. 10/30: Patient blood pressure was low last night in 90s to low 100s. Hold antihypertensive medications. Patient was short of breath. Chest x-ray ordered. Continue incentive spirometry. Resume fluid after chest x-ray does not show fluid overload/pulmonary edema. 3. COPD: Patient not in acute exacerbation. DuoNeb as needed ordered. 4. Chronic anemia: Baseline hemoglobin has been fluctuating anywhere from 10 to 12 g/dL.? Admission hemoglobin is 11 to 5 g%. Monitor CBC. 5. GERD: Continue Pepcid. 6. Anxiety and depression: Continue Wellbutrin and Paxil. 7. DVT prophylaxis: SCDs, subcu Lovenox after surgery Living will/advanced directive/end of life care: Patient does not have living will or advanced directive. She does not have dilated power of strickler attendant for health per her and son is next of kin. Her is admitted to [facility]. After discussion of benefits/risks procedures involved with full code, DNR CC arrest and DNR CC, the patient opted for full code. Patient does want artificial life support including intubation, tube feed, ventilator and/chest compression, central venous catheter, vasopressor and DC shock if needed Total time spent in [id number] encounter in discussion of advanced directive 17 minutes. Laboratory Results 10/29/22 15:00: WBC 12.2 H, RBC 4.14 L, Hgb 11.5 L, Hct 36.9 L, MCV 89.1, MCH 27.8, MCHC 31.2 L, RDW Std Deviation 47.3 H, RDW Coeff of Joe 14.6, Plt Count 236, MPV 10.2, Immature Gran % (Auto) 0.600, Neut % (Auto) 84.5 H, Lymph % (Auto) 8.9 L, [place] % (Auto) 5.6, Eos % (Auto) 0.1, Baso % (Auto) 0.3, Absolute Neuts (auto) 10.3 H, Absolute Lymphs (auto) 1.08, Nucleated RBC % 0 10/29/22 15:00: PT 14.1, INR 1.1, APTT 27.9 10/29/22 15:00: Sodium 138, Potassium 4.6, Chloride 108 H, Carbon Dioxide 27.0, Anion Gap 3 L, BUN 21 H, Creatinine 0.87, Estim Creat Clear Calc 76.04, Est GFR (MDRD) Af Amer 82, Est GFR (MDRD) Non-Af 67, BUN/Creatinine Ratio 24.1 H, Glucose 129 H, Calcium 9.4, Total Bilirubin 0.80, Direct Bilirubin 0.24, AST 28, ALT 25, Alkaline Phosphatase 83, Total Protein 6.4, Albumin 3.3, Globulin 3.1 Clinical Impression(s) from Imaging Studies Chest/Abdomen/Pelvis CT 10/29/22 14:32 IMPRESSION: Comminuted fractures of the left humeral neck and head. Multiple left posterior rib fractures, nondisplaced. Minimally displaced fracture left inferior pubic ramus. Multiple thoracolumbar biconcave compression fractures of uncertain chronicity in the lumbar spine, chronic in the thoracic spine by comparison with prior study. No acute pulmonary findings. No injury to solid viscera. Tibia/Fibula X-Ray 10/29/22 14:32 IMPRESSION: 1. Osteopenia and evidence of remote fractures. There is no acute fracture or dislocation. 2. Degenerative changes of the knee and ankle. Brain CT 10/29/22 15:20 IMPRESSION: Volume loss with chronic white matter changes. No acute intracranial findings. Cervical Spine CT 10/29/22 15:20 IMPRESSION: Degenerative changes. No acute fracture of the cervical spine. Femur X-Ray 10/29/22 15:30 IMPRESSION: 1. Remote right hip fracture with internal fixation. 2. Osteopenia and degenerative changes of the hip and knee. Charges/Coding Visit Charges Inpatient E&M: 98623 Subs Hosp L2
[2022-10-30] MEDS: Potassium Chloride Oral Tablet 20 MEQ PO (09:15)
[2022-10-30] MEDS: Calcium Carb/Vitamin D 1 TABLET Tablet PO ×2 (09:15→17:52)
[2022-10-30] MEDS: tiZANidine HCl 2 MG Tablet 4 MG PO ×3 (09:20→21:47)
[2022-10-30] MEDS: Ibuprofen 600 MG Tablet PO ×2 (09:20→21:47)
[2022-10-30] MEDS: MethylPREDNISolone 125 MG/2 ML Vial 60 MG IV (09:20)
[2022-10-30] MEDS: Cholecalciferol (VIT D3) 25 MCG TABLET (1,000 UNITS) PO (09:23)
[2022-10-30] MEDS: buPROPion (SR) 150 MG Tablet.SA PO ×2 (09:23→21:44)
[2022-10-30] MEDS: Iron Polysaccharide Complex 150 MG CAPSULE PO (09:26)
--- NOTE | 2022-10-30 09:30 | RAD_ITS ---
STUDY: X-RAY CHEST REASON FOR EXAM: Female, 72 years old. Shortness of breath and cough TECHNIQUE: Single AP portable view of the chest. COMPARISON: None. FINDINGS: Lungs are expanded with chronic interstitial changes, no superimposed acute pulmonary process. There is no demonstrated pleural abnormality. Normal size heart. Normal mediastinum and eileen. Normal visualized pulmonary arteries. There is atherosclerotic calcification of the aortic arch with tortuosity. There are diffuse degenerative changes of the visualized thoracic spine. Degenerative arthrosis in the shoulders. Again noted is a age indeterminate multi fragmented fracture involving the surgical neck of the humerus and the greater tuberosity. There is no demonstrated abnormality of the visualized soft tissue structures of the upper abdomen. RAD/Chest 1 View (Portable) IMPRESSION: No acute pulmonary process Left humeral fracture Electronically Signed: Varun Polanco MD at 9:46 EDT ,
[2022-10-30] MEDS: Paroxetine 20 MG Tablet 30 MG PO (09:44)
[2022-10-30] MEDS: Pantoprazole Sodium 40 MG Tablet PO (09:44)
[2022-10-30] MEDS: Nystatin Powder 15gm Bottle 1 APPLIC TOPICAL ×2 (13:49→21:45)
--- NOTE | 2022-10-30 15:03 | CASEMGMT ---
Social Work SW met Face to Face with patient for initial transition planning/care coordination assessment. Pt asleep but sister, Yajaira, present in room and able to answer questions. SW introduced self and role at [facility]. Patient's sister has knowledge of patient's functioning and home environment. Sister reports patient's spouse is currently hospitalized and has a trach. Care providers, pharmacy, and demographics verified. Pt likely to need SNF following discharge. SW to follow for discharge planning needs that may arise and will follow up with patient regarding SNF. A list of SNF providers including quality and resource use data and consistent with patient?s preferred geographic region, medical needs, and insurance network were provided from the [employer] Guide. PCP: Dr. Pineda Specialists:None Preferred Pharmacy: [facility] Insurance:[employer], [employer] secondary Prescription Benefit:?Yes Living Will/HCPOA: LNOK: - Brad Rizzo Living Arrangements:At home with spouse when he is not hospitalized. 2 front steps and 8 steps inside the home. Transportation: Sister and family as needed, was driving prior to shoulder injury from previous fall DME/HHC:Shower chair, walker, lift chair. Pt was completing therapy with [facility]. No HHC in the past for patient. Disposition Plan: SW to follow up with patient for discharge planning and PT/OT progress. aCrla Mehta IT FIELD TECHNICIAN, BILLET ASSEMBLER
--- NOTE | 2022-10-30 18:27 | CON.PCM.OR_ITS ---
HPI Consult Data Date of Consult: 10/30/22 HPI Narrative Reason for Consultation: Left shoulder pain, left pelvis pain, right knee pain HPI Narrative: BETH HARTMAN, is a 72 F who presents today after a fall that occurred yesterday. Patient notes she was walking up a short flight of steps when she fell backwards. She twisted her right knee and fell down 4 stairs. She did not lose consciousness per the ER report. She was admitted to the hospital for large effusion of the right knee and inability to bear weight. She reports 2 out of 10 left shoulder pain worse with motion better with immobilization. 8 out of 10 right knee pain worse with motion. 4 out of 10 left pelvis pain worse with direct pressure. She denies any new associated numbness and tingling. She did have a previous left shoulder fracture in July of this year. She does note a uneventful recovery was going on however the pain has been exacerbated since the fall. She was under the care of my partner Dr. Arevalo for this injury. She is currently unable to bear weight due to the pain and swelling. There is no associated erythema. She has been afebrile. [facility] Medical History (Updated 10/30/22 @ 18:[address] Logan Portillo MD) Anemia Bilateral pleural effusion Broken shoulder COPD (chronic obstructive pulmonary disease) Depression Dilated cardiomyopathy Essential hypertension GERD (gastroesophageal reflux disease) Obesity Obstructive sleep apnea Osteoarthritis Osteoporosis Home Medications famotidine 20 mg tablet 20 mg PO BID gerd 03/06/20 [History Last Taken 10/26/22] calcium carbonate 500 mg-vitamin D3 5 mcg (200 unit) tablet 1 tab PO BIDCM supplement 05/09/20 [History Last Taken 10/28/22] furosemide 40 mg tablet 40 mg PO DAILY fluid 05/09/20 [History Last Taken 05/09/20] paroxetine HCl 30 mg tablet 30 mg PO DAILY depression 05/09/20 [History Last Taken 10/29/22] cholecalciferol (vitamin D3) 25 mcg (1,000 unit) tablet 1,000 unit PO QWEEK Supplement 05/12/20 [History Last Taken 10/28/22] gabapentin 300 mg capsule 300 mg PO TID PRN Pain 01/26/21 [History Last Taken 10/26/22] Viviscal 1 tab PO BIDCM hair 10/29/22 [History Last Taken Unknown] acetaminophen 500 mg tablet 1,000 mg PO Q8 PRN Pain 10/29/22 [History Last Taken Unknown] bupropion HCl 150 mg tablet,12 hr sustained-release 150 mg PO BID mood 10/29/22 [History Last Taken 10/29/22] carvedilol 12.5 mg tablet 12.5 mg PO BID heart 10/29/22 [History Last Taken 10/29/22] lisinopril 2.5 mg tablet 2.5 mg PO DAILY heart 10/29/22 [History Last Taken 10/29/22] polysaccharide iron complex 150 mg iron capsule 150 mg PO DAILYCM supplement 10/29/22 [History Last Taken Unknown] potassium chloride 20 mEq tablet,extended release(part/cryst) 20 meq PO BIDCM supplement 10/29/22 [History Last Taken 10/29/22] Allergy/AdvReac Type Severity Reaction Status Date / Time diclofenac [From Voltaren] Allergy Rash Verified 07/13/22 16:33 acetaminophen [From Vicodin] AdvReac Other Verified 07/13/22 16:33 hydrocodone [From Vicodin] AdvReac Other Verified 07/13/22 16:33 Family History Mother Diabetes Heart disease Hypertension Hyperlipidemia Father Diabetes Heart disease Hypertension Hyperlipidemia Surgical History History of History of gastric bypass History of herniorrhaphy History of left heart catheterization (12/05/18) History of open reduction and internal fixation (ORIF) procedure History of open reduction and internal fixation (ORIF) procedure History of tonsillectomy Hx of cholecystectomy Social History household members: family Smoking Status: Former smoker substance use type: does not use ROS Constitutional Constitutional: Reports systems reviewed and no addt'l complaints, except as documented Eyes Eyes: Reports systems reviewed and no addt'l complaints, except as documented ENT HEENT: Reports systems reviewed and no addt'l complaints, except as documented Cardiovascular Cardiovascular: Reports systems reviewed and no addt'l complaints, except as documented Respiratory/Chest Respiratory/Chest: Reports systems reviewed and no addt'l complaints, except as documented Gastrointestinal Gastrointestinal: Reports systems reviewed and no addt'l complaints, except as documented Genitourinary Genitourinary: Reports systems reviewed and no addt'l complaints, except as documented Musculoskeletal Musculoskeletal: Reports systems reviewed and no addt'l complaints, except as documented Integumentary Integumentary: Reports systems reviewed and no addt'l complaints, except as documented Neurologic Neurologic: Reports systems reviewed and no addt'l complaints, except as documented Psychiatric Psychiatric: Reports systems reviewed and no addt'l complaints, except as documented Vital Signs Vital Signs Vital Signs: 10/29/22 18:45 10/29/22 20:00 10/29/22 20:23 Temperature 97.2 F L 97.9 F Temperature Source Temporal Oral Pulse Rate 83 86 Pulse Strength Respiratory Rate 18 16 Respiratory Effort Respiratory Depth Respiratory Pattern Blood Pressure 100/30 L 82/41 L Blood Pressure [BP] 84/49 L Blood Pressure Mean 53 54 Blood Pressure Mean [BP] 60 Blood Pressure Source Monitor Monitor Blood Pressure Source [BP] Monitor Blood Pressure Position Supine Semi-Fowlers Blood Pressure Position [BP] Semi-Fowlers Blood Pressure Location Left Arm Right Arm Blood Pressure Location [BP] Left Arm Pulse Ox 96 98 Oxygen Delivery Method Nasal Cannula Oxygen Flow Rate (L/min) 2 2 10/29/22 21:41 10/29/22 21:45 10/29/22 19:45 Temperature 97.7 F L Temperature Source Oral Pulse Rate 83 Pulse Strength Respiratory Rate 16 16 Respiratory Effort Normal Non-Labored Respiratory Depth Normal Respiratory Pattern Normal Blood Pressure 100/45 L Blood Pressure [BP] 105/53 L Blood Pressure Mean 63 Blood Pressure Mean [BP] 70 Blood Pressure Source Monitor Blood Pressure Source [BP] Monitor Blood Pressure Position Semi-Fowlers Blood Pressure Position [BP] Semi-Fowlers Blood Pressure Location Right Arm Blood Pressure Location [BP] Left Arm Pulse Ox 98 Oxygen Delivery Method Nasal Cannula Nasal Cannula Oxygen Flow Rate (L/min) 2 2 10/29/22 22:00 10/29/22 23:50 10/30/22 00:56 Temperature Temperature Source Pulse Rate Pulse Strength Normal (2+) Respiratory Rate Respiratory Effort Normal Non-Labored Respiratory Depth Normal Respiratory Pattern Normal Blood Pressure Blood Pressure [BP] Blood Pressure Mean Blood Pressure Mean [BP] Blood Pressure Source Blood Pressure Source [BP] Blood Pressure Position Blood Pressure Position [BP] Blood Pressure Location Blood Pressure Location [BP] Pulse Ox 98 Oxygen Delivery Method Nasal Cannula Nasal Cannula Oxygen Flow Rate (L/min) 2 2 10/30/22 01:17 10/30/22 02:41 10/30/22 03:43 Temperature Temperature Source Pulse Rate Pulse Strength Respiratory Rate Respiratory Effort Respiratory Depth Respiratory Pattern Blood Pressure Blood Pressure [BP] 90/41 L 107/51 L 103/50 L Blood Pressure Mean Blood Pressure Mean [BP] 57 69 67 Blood Pressure Source Blood Pressure Source [BP] Monitor Monitor Monitor Blood Pressure Position Blood Pressure Position [BP] Semi-Fowlers Semi-Fowlers Blood Pressure Location Blood Pressure Location [BP] Right Arm Right Arm Right Arm Pulse Ox Oxygen Delivery Method Oxygen Flow Rate (L/min) 10/30/22 02:45 10/30/22 05:47 10/30/22 08:20 Temperature 97.8 F Temperature Source Oral Pulse Rate 80 Pulse Strength Respiratory Rate 18 Respiratory Effort Respiratory Depth Respiratory Pattern Blood Pressure 107/51 L Blood Pressure [BP] 98/83 H Blood Pressure Mean 69 Blood Pressure Mean [BP] 88 Blood Pressure Source Monitor Blood Pressure Source [BP] Monitor Blood Pressure Position Semi-Fowlers Blood Pressure Position [BP] Blood Pressure Location Right Arm Blood Pressure Location [BP] Pulse Ox 97 Oxygen Delivery Method Room Air Nasal Cannula Oxygen Flow Rate (L/min) 2 10/30/22 08:45 10/30/22 10:00 10/30/22 08:00 Temperature 98.0 F Temperature Source Oral Pulse Rate 86 Pulse Strength Normal (2+) Respiratory Rate 18 Respiratory Effort Normal Non-Labored Respiratory Depth Normal Respiratory Pattern Normal Blood Pressure 97/47 L Blood Pressure [BP] Blood Pressure Mean 63 Blood Pressure Mean [BP] Blood Pressure Source Monitor Blood Pressure Source [BP] Blood Pressure Position Semi-Fowlers Blood Pressure Position [BP] Blood Pressure Location Right Arm Blood Pressure Location [BP] Pulse Ox 98 Oxygen Delivery Method Nasal Cannula Nasal Cannula Oxygen Flow Rate (L/min) 2 2 10/30/22 14:05 10/30/22 14:00 Temperature 98.5 F Temperature Source Oral Pulse Rate 80 Pulse Strength Respiratory Rate 18 Respiratory Effort Normal Non-Labored Respiratory Depth Normal Respiratory Pattern Normal Blood Pressure 94/45 L Blood Pressure [BP] Blood Pressure Mean 61 Blood Pressure Mean [BP] Blood Pressure Source Monitor Blood Pressure Source [BP] Blood Pressure Position Semi-Fowlers Blood Pressure Position [BP] Blood Pressure Location Right Arm Blood Pressure Location [BP] Pulse Ox 96 Oxygen Delivery Method Nasal Cannula Nasal Cannula Oxygen Flow Rate (L/min) 2 2 Weight Weight: 190 lb 7.67 oz Body Mass Index (BMI) 38.4 Physical Exam Const alert and oriented x3 General Appearance: cooperative HEENT normocephalic Eyes PERRL Neck no JVD Resp normal respiratory effort Cardio regular rate GI non-distended GI Narrative: obese Extremity Extremity Narrative: Left upper extremity: Tenderness palpation around the shoulder. Pain with range of motion. Strength exam and full range of motion exam limited secondary to pain. Neurovascular intact distally Pelvis: Tenderness palpation over the left pubic rami Right lower extremity: Skin is intact. Large effusion of the knee. Stable to varus and valgus stress. Limited Adi's is obtainable secondary to patient's size and pain. Pain with range of motion range of motion allowed by patient was 10-25. Neurovascular intact distally. Neuro CN's II-XII intact bilaterally Psych affect normal Medical Records Data Attestation: I reviewed the patient's medical records Lab / Micro Data Attestation: I reviewed the patient's lab results. Result Diagrams: 10/30/22 05:30 10/30/22 05:30 Labs: Laboratory Results - last 24 hr 10/29/22 23:15: Hgb 10.7 L, Hct 33.7 L 10/30/22 05:30: WBC 9.3, RBC 3.83 L, Hgb 10.7 L, Hct 35.0 L, MCV 91.4, MCH 27.9, MCHC 30.6 L, RDW Std Deviation 48.8 H, RDW Coeff of Joe 14.6, Plt Count 216, MPV 10.1, Immature Gran % (Auto) 0.300, Neut % (Auto) 75.9 H, Lymph % (Auto) 13.9 L, [place] % (Auto) 9.1, Eos % (Auto) 0.4, Baso % (Auto) 0.4, Absolute Neuts (auto) 7.0, Absolute Lymphs (auto) 1.29, Nucleated RBC % 0 10/30/22 05:30: Sodium 137, Potassium 4.4, Chloride 106, Carbon Dioxide 31.0, Anion Gap 0 L, BUN 25 H, Creatinine 0.85, Estim Creat Clear Calc 79.20, Est GFR (MDRD) Af Amer 84, Est GFR (MDRD) Non-Af 69, BUN/Creatinine Ratio 29.3 H, Glucose 131 H, Calcium 8.8 Radiology Impression Chest X-Ray 10/30/22 09:30 IMPRESSION: No acute pulmonary process Left humeral fracture Electronically Signed: Varun Polanco MD at 9:46 EDT Reading Location ID and State: [facility] / [place] , Service support , Patient's most recent imaging was reviewed. Chest x-ray does appear to show interval callus formation and healing appreciated on the left humerus fracture however CT scan shows evidence of delayed healing with sclerotic endplates on proximal and distal fragments. Pelvis CT scan shows pubic rami fracture on the left. No dedicated knee films were performed. I did review the femur and tib- fib films. Patient has severe [id number] degenerative grade 4 osteoarthritis with subchondral sclerosis bony erosions and marginal osteophytes. On the lateral view of both the distal femur and proximal tibia there does appear to be an anterior cortical breach consistent with an intra-articular fracture mini misha displaced on the proximal tibia. Patient has significant osteopenic appearance of the bone on radiographs Assessment & Plan Assessment/Plan (1) Humerus surgical neck fracture: PLAN: Patient's images were reviewed. Natural history of the disease process and treatment options were discussed with the patient. At this time I recommended continued nonoperative care while the x-rays appear to show evidence of progressive healing there is concern for delayed union. Regardless patient has exacerbation of her pain and at this time I recommend immobilization in a sling, nonweightbearing and passive range of motion with kali, pendulum swings and therapy. (2) Fracture of pubic ramus: PLAN: Natural history of the disease process and treatment options were discussed the patient. At this time I recommended nonoperative care. Patient can be weightbearing as tolerated on the left lower extremity. Activity as tolerated. Pain control per primary service would focus on nonnarcotic medi cations based on patient's fluctuations in blood pressure. Follow-up in the office in 2 weeks for repeat radiographs. (3) Effusion, right knee: PLAN: Natural history of the disease process and treatment options were discussed the patient. At this time I am concerned patient has a nondisplaced fracture of the tibial plateau. There are no dedicated knee films however the distal femur radiographs and proximal tibia radiographs are concerning due to the patient's osteopenic appearance and a cortical breach in the anterior weightbearing surface of the tibia on the lateral view. Based on this ongoing recommend nonweightbearing on the right lower extremity. Patient does have a knee immobilizer she brought from home she should wear this when ambulating, is not required while resting in bed. Patient should follow-up in the office in 2 weeks for repeat radiographs. She does have severe right knee osteoarthritis and associated effusion at this time. If patient's CAT scan does confirm nondisplaced fracture we will continue nonweightbearing. If the patient's CAT scan rules out a fracture we will begin weightbearing as tolerated and discontinue the brace completely. Pain to be managed with ice elevation and pain management per primary service as appropriate. Please call orthopedics with any further questions or concerns I will review the CAT scan remotely and make further recommendations. [facility]Daniel [facility] Office:
[2022-10-31 04:59] VITALS: BP 109/53; PULSE 74; RESP 16; TEMP 36.7; O2SAT 99
[2022-10-31] MEDS: tiZANidine HCl 2 MG Tablet 4 MG PO ×3 (05:06→21:06)
[2022-10-31] MEDS: Ibuprofen 600 MG Tablet PO ×3 (05:06→21:05)
[2022-10-31] MEDS: Acetaminophen 500 MG Tablet 1000 MG PO ×3 (05:06→21:04)
[2022-10-31 06:00] VITALS: BMI 38.7
--- NOTE | 2022-10-31 06:00 | CT_ITS ---
STUDY: CT LOWER EXTREMITY REASON FOR EXAM: Female, 72 years old. right knee effusion RADIATION DOSAGE (If Supplied By Facility): CTDIvol = ( 15.43 ) mGy, DLP = ( 529.09 ) mGycm TECHNIQUE: Transaxial imaging of the right lower extremity distal femur to the proximal tibia and fibula. Was performed with oral contrast, and without intravenous administration of contrast material. Individualized dose optimization techniques were used for this CT. COMPARISON: October 29, 2022 tibia and fibula x-ray. FINDINGS: RIGHT HIP Right lower extremity: There is visualized soft tissue edema. There is a visualized small to moderate joint effusion. The right distal femur is osteopenic. There is degenerative change in the medial lateral and patellofemoral compartments. There is a visualized subchondral cyst at the level of the tibia just under the tibial spine. There is a visualized subtle focus of cortical lucency and step off within the proximal tibia especially seen anteriorly image #45 with an extension into the articular cortex in the mid aspect of the proximal tibia extending into the articular surface. There is visualized edema of Hoffa''s fat pad. There is an irregular appearance of the proximal fibula suggesting a prior injury. CT/Extremity Lower without Contra IMPRESSION: Acute fracture anterolateral medial of the Rox[place] tibia with the visualized step-off best seen on the sagittal view image #43 and the AP view image 32. This is involving the medial aspect of the tibia without significant depression of the tibial plateau. The bones are severely osteopenic. Degenerative changes in the mediolateral patellofemoral compartments. Electronically Signed: Echo Magdaleno MD at 5:48 EDT ,
[2022-10-31 06:33] LABS: Anion Gap 1 (5-15); BUN 23 mg/dL (7-18); BUN/Creat Ratio 33.3 RATIO (10-20); Chloride 108 mmol/L (98-107); Creatinine, Serum 0.69 mg/dL (0.55-1.02); EST Glomerular Filtration Rate 88 mL/min (>60); Est Glom Filt Rate - Afr Amer 107 mL/min (>60); Estimated Creatinine Clearance 67.32 ml/min; Glucose 119 mg/dL (74-106); Potassium 4.5 mmol/L (3.5-5.1); Sodium Level 139 mmol/L (136-145)
[2022-10-31] MEDS: oxyCODONE 5 MG Tablet PO (06:58)
[2022-10-31] MEDS: Paroxetine 20 MG Tablet 30 MG PO (08:55)
[2022-10-31] MEDS: Cholecalciferol (VIT D3) 25 MCG TABLET (1,000 UNITS) PO (08:55)
[2022-10-31] MEDS: Carvedilol 3.125 MG TABLET PO (08:55)
[2022-10-31] MEDS: Calcium Carb/Vitamin D 1 TABLET Tablet PO ×2 (08:55→16:55)
[2022-10-31] MEDS: Lisinopril 2.5 MG Tablet PO (08:56)
[2022-10-31] MEDS: Nystatin Powder 15gm Bottle 1 APPLIC TOPICAL ×2 (08:56→21:05)
[2022-10-31] MEDS: buPROPion (SR) 150 MG Tablet.SA PO ×2 (08:56→21:04)
[2022-10-31] MEDS: Pantoprazole Sodium 40 MG Tablet PO (08:57)
[2022-10-31] MEDS: Gabapentin 300 MG Capsule PO (09:14)
--- NOTE | 2022-10-31 09:52 | PCM.PN.HOSP ---
Reason for Visit Reason for Visit: Diagnoses Effusion, right knee (10/29/22) Fracture of one rib, unspecified side, initial encounter for closed fracture (10/29/22) Other specified fracture of unspecified pubis, initial encounter for closed fracture (10/29/22) Unspecified displaced fracture of surgical neck of unspecified humerus, initial encounter for closed fracture (10/29/22) Sprain of unspecified site of right knee, initial encounter (10/29/22) Unspecified fall, initial encounter (10/29/22) Objective Data Objective Data Vital Signs: Vital Signs Temp Pulse Resp BP Pulse Ox O2 Del Method O2 Flow Rate 98.1 F 74 16 109/53 L 99 Nasal Cannula 2 10/31/22 04:59 10/31/22 04:59 10/31/22 04:59 10/31/22 04:59 10/31/22 04:59 10/31/22 07:33 10/31/22 07:33 Oxygen Flow Rate (L/min) 2 Oxygen Delivery Method Nasal Cannula Weight: 192 lb 7.417 oz Body Mass Index (BMI) 38.7 Intake & Output: Intake and Output for Last 24 Hours 10/29/22 10/30/22 10/31/22 23:59 23:59 23:59 Intake Total 188.33 / 438.33 2991.67 / 3191.67 1400 / 1400 Output Total 400 / 1150 750 / 750 Balance 188.33 / 438.33 2591.67 / 2041.67 650 / 650 Lab / Micro Data Result Diagrams: 10/30/22 05:30 10/31/22 05:48 Labs: Laboratory Results - last 24 hr 10/31/22 05:48: Sodium 139, Potassium 4.5, Chloride 108 H, Carbon Dioxide 30.0, Anion Gap 1 L, BUN 23 H, Creatinine 0.69, Estim Creat Clear Calc 67.32, Est GFR (MDRD) Af Amer 107, Est GFR (MDRD) Non-Af 88, BUN/Creatinine Ratio 33.3 H, Glucose 119 H, Calcium 9.0 Radiography Diagnostic Testing: Radiology Impression Lower Extremity CT 10/31/22 06:00 IMPRESSION: Acute fracture anterolateral medial of the Rox[place] tibia with the visualized step-off best seen on the sagittal view image #43 and the AP view image 32. This is involving the medial aspect of the tibia without significant depression of the tibial plateau. The bones are severely osteopenic. Degenerative changes in the mediolateral patellofemoral compartments. Electronically Signed: Echo Magdaleno MD at 5:48 EDT , Physical Exam Narrative Patient had urine output yesterday evening. Pain level is similar as of yesterday. Patient was seen by orthopedic surgeon Dr. Portillo and recommended CT right lower extremity which is done. Patient recommended straight catheter if urine output more than 400 mL on bladder scan. Physical exam General: Alert, Oriented x3, Cooperative HEENT: Atraumatic, PERRLA, EOMI, Normocephalic Oral: Oral mucosa moist. No Gingival or Mucosal Lesions/ Ulcerations Neck: Supple, No JVD, Negative Carotid Bruits Lungs: Air entry diminished in bilateral lung bases. No crepitation/rhonchi. No acute chest wall tenderness. Cardiovascular: Regular rate, Regular Rhythm, Normal S1, Normal S2, No murmurs Abdomen: Bowel Sounds Present, Soft, Non Tender, Non-Distended : Spontaneously voiding urine. No dysuria. No renal angle tenderness. No suprapubic tenderness. Extremities: No edema, Capillary Refill Less than 3 Seconds Skin: No rashes, No breakdown Musculoskeletal: Right knee swollen, tender. Bluish discoloration has resolved. ROM not attempted. Bilateral hip replacement. Left pubic ramus fracture. Left shoulder fracture with mild tenderness Spine: No acute neck tenderness. No acute lumbar spine tenderness. Neurological: Cranial nerves II-XII grossly intact, DTR 2+/4 . No saddle anesthesia. Muscle strength not instrumented because of pain. Gross sensation to touch and pressure are equal and symmetrical on both sides. Psych/Mental Status: Flat affect. In pain. Assessment & Plan Assessment/Plan (1) Fall: (2) Fracture of pubic ramus: (3) Closed traumatic nondisplaced fracture of rib: (4) Right knee sprain: PLAN: Plan This is a 72-year-old female who came to ED after fall with no loss of consciousness. 1. Acute left posterior rib fracture and minimally displaced left inferior ramus fracture, acute left knee injury probably soft tissue injury: Patient is being admitted on [facility] floor for pain control PT and OT. Patient feels muscle spasm on right thigh. Orthopedic consult requested. CT chest abdomen and pelvis shows nondisplaced left seventh eighth and ninth ribs posteriorly with no pneumothorax. CT head and C-spine does not show acute abnormality or acute fracture. Tibia-fibula x-ray shows no acute fracture. Femur x-ray shows no acute fracture but remote right hip fracture with internal fixation. She has osteopenia and degenerative changes of hip and knees. Her right knee is concerning to me possible hematoma. 10/30: Knee x-ray reviewed. Decreased joint space but does not show possible hemarthrosis. Discussed with Dr. Portillo and requested evaluation to rule out hematoma/ligament injury. She twisted her right knee during fall backwards. Patient does not have true allergy with diclofenac. She had taken Advil/ibuprofen in the past. Started on ibuprofen 600 mg 3 times daily after half an hour of Solu-Medrol 60 mg IV 1 dose. Protonix 40 mg daily. Zanaflex 4 mg every 8 hourly. Famotidine discontinued. BUN 25. Leukocytosis improved. 10/31: Orthopedic surgery on consult reviewed and appreciated. CT right lower extremity individually reviewed and shows small chip fracture of anterolateral medial aspect of tibial plateau without depression. Bones are severely osteopenic, subchondral cyst and degenerative changes. Subcutaneous edema or fat. Patient states pain is not better than yesterday. Started on dexamethasone 2 mg twice daily. Discussed with orthopedic surgeon Dr. Portillo. 2. Acute urine retention: Patient had more than 2 L of fluid still did not put out urine. Bladder scan done earlier showed empty bladder. Straight cath advised. Patient also has left pubic inferior ramus fracture therefore my interpretation. Creatinine is normal. 10/31 urine retention resolved yesterday. Patient is spontaneous voiding urine. Patient had 750 mill urine output since midnight a.m. today. Creatinine is normal. 3. Chronic systolic heart failure with nonischemic cardiomyopathy: Patient had recent 2D echo January 2021, EF recovered 60%. No RWMA. In 2018 her EF was 30% and coronaries were normal. Patient was given IV fluid. She was dehydrated. 10/30: Patient blood pressure was low last night in 90s to low 100s. Hold antihypertensive medications. Patient was short of breath. Chest x-ray ordered. Continue incentive spirometry. Resume fluid after chest x-ray does not show fluid overload/pulmonary edema. 10/31: IV fluid discontinued yesterday. 3. COPD: Patient not in acute exacerbation. DuoNeb as needed ordered. 4. Chronic anemia: Baseline hemoglobin has been fluctuating anywhere from 10 to 12 g/dL.? Admission hemoglobin is 11 to 5 g%. Monitor CBC. 5. GERD: Continue Pepcid. 6. Anxiety and depression: Continue Wellbutrin and Paxil. 7. DVT prophylaxis: SCDs, subcu Lovenox after surgery Living will/advanced directive/end of life care: Patient does not have living will or advanced directive. She does not have dilated power of employment attorney for health per her and son is next of kin. Her is admitted to [facility]. After discussion of benefits/risks procedures involved with full code, DNR CC arrest and DNR CC, the patient opted for full code. Patient does want artificial life support including intubation, tube feed, ventilator and/chest compression, central venous catheter, vasopressor and DC shock if needed Total time spent in [id number] encounter in discussion of advanced directive 17 minutes. Clinical Impression(s) from Imaging Studies Chest/Abdomen/Pelvis CT 10/29/22 14:32 IMPRESSION: Comminuted fractures of the left humeral neck and head. Multiple left posterior rib fractures, nondisplaced. Minimally displaced fracture left inferior pubic ramus. Multiple thoracolumbar biconcave compression fractures of uncertain chronicity in the lumbar spine, chronic in the thoracic spine by comparison with prior study. No acute pulmonary findings. No injury to solid viscera. Tibia/Fibula X-Ray 10/29/22 14:32 IMPRESSION: 1. Osteopenia and evidence of remote fractures. There is no acute fracture or dislocation. 2. Degenerative changes of the knee and ankle. Brain CT 10/29/22 15:20 IMPRESSION: Volume loss with chronic white matter changes. No acute intracranial findings. Cervical Spine CT 10/29/22 15:20 IMPRESSION: Degenerative changes. No acute fracture of the cervical spine. Femur X-Ray 10/29/22 15:30 IMPRESSION: 1. Remote right hip fracture with internal fixation. 2. Osteopenia and degenerative changes of the hip and knee. Charges/Coding Visit Charges Inpatient E&M: 04871 Subs Hosp L2
[2022-10-31] MEDS: dexAMETHasone 4 MG Tablet PO ×2 (10:26→16:55)
[2022-10-31 10:28] VITALS: BP 90/48; PULSE 72; RESP 18; TEMP 36.4; O2SAT 98
[2022-10-31 12:30] VITALS: BP 106/48; PULSE 71; RESP 18; TEMP 36.6; O2SAT 98
[2022-10-31 15:57] VITALS: O2SAT 96
[2022-10-31 16:30] VITALS: BP 95/44; PULSE 72; RESP 18; TEMP 36.6; O2SAT 96
[2022-10-31 20:47] VITALS: BP 112/45; PULSE 75; RESP 16; TEMP 36.9; O2SAT 98
[2022-11-01 02:45] VITALS: BP 130/64; PULSE 68; RESP 18; TEMP 36.7; O2SAT 100
[2022-11-01] MEDS: oxyCODONE 5 MG Tablet PO ×2 (02:51→10:34)
[2022-11-01] MEDS: Gabapentin 300 MG Capsule PO (03:11)
[2022-11-01] MEDS: tiZANidine HCl 2 MG Tablet 4 MG PO ×3 (04:35→21:08)
[2022-11-01] MEDS: Acetaminophen 500 MG Tablet 1000 MG PO ×3 (04:37→21:09)
[2022-11-01] MEDS: Ibuprofen 600 MG Tablet PO ×3 (04:38→21:10)
[2022-11-01 05:30] LABS: Anion Gap 3 (5-15); BUN 26 mg/dL (7-18); BUN/Creat Ratio 33.8 RATIO (10-20); Chloride 105 mmol/L (98-107); Creatinine, Serum 0.77 mg/dL (0.55-1.02); EST Glomerular Filtration Rate 78 mL/min (>60); Est Glom Filt Rate - Afr Amer 94 mL/min (>60); Estimated Creatinine Clearance 68.02 ml/min; Glucose 151 mg/dL (74-106); Potassium 4.7 mmol/L (3.5-5.1); Sodium Level 137 mmol/L (136-145)
[2022-11-01 06:00] VITALS: BMI 38.8
--- NOTE | 2022-11-01 07:53 | PCM.PN.HOSP ---
Reason for Visit Reason for Visit: Diagnoses Effusion, right knee (10/29/22) Fracture of one rib, unspecified side, initial encounter for closed fracture (10/29/22) Other specified fracture of unspecified pubis, initial encounter for closed fracture (10/29/22) Unspecified displaced fracture of surgical neck of unspecified humerus, initial encounter for closed fracture (10/29/22) Sprain of unspecified site of right knee, initial encounter (10/29/22) Unspecified fall, initial encounter (10/29/22) Subjective Subjective Follow-up for multiple fracture after a fall with chronic left shoulder fracture. Objective Data Objective Data Vital Signs: Vital Signs Temp Pulse Resp BP Pulse Ox O2 Del Method O2 Flow Rate 98.1 F 68 18 130/64 H 100 Nasal Cannula 2 11/01/22 02:45 11/01/22 02:45 11/01/22 02:45 11/01/22 02:45 11/01/22 02:45 11/01/22 02:45 11/01/22 02:45 Oxygen Flow Rate (L/min) 2 Oxygen Delivery Method Nasal Cannula Weight: 192 lb 10.944 oz Body Mass Index (BMI) 38.8 Intake & Output: Intake and Output for Last 24 Hours 10/30/22 10/31/22 11/01/22 23:59 23:59 23:59 Intake Total 2991.67 / 3191.67 1720 / 1920 400 / 400 Output Total 400 / 1150 1250 / 1550 800 / 800 Balance 2591.67 / 2041.67 470 / 370 -400 / -400 Lab / Micro Data Result Diagrams: 10/30/22 05:30 11/01/22 04:30 Labs: Laboratory Results - last 24 hr 11/01/22 04:30: Sodium 137, Potassium 4.7, Chloride 105, Carbon Dioxide 29.0, Anion Gap 3 L, BUN 26 H, Creatinine 0.77, Estim Creat Clear Calc 68.02, Est GFR (MDRD) Af Amer 94, Est GFR (MDRD) Non-Af 78, BUN/Creatinine Ratio 33.8 H, Glucose 151 H, Calcium 9.0 Physical Exam Narrative Patient is spontaneously voiding urine, urinary incontinent. Her pain level is mainly related to movement or changing the position. Left shoulder sling.\Patient was seen by orthopedic surgeon Dr. Portillo. Patient recommended straight catheter if urine output more than 400 mL on bladder scan. Physical exam General: Alert, Oriented x3, Cooperative HEENT: Atraumatic, PERRLA, EOMI, Normocephalic Oral: Oral mucosa moist. No Gingival or Mucosal Lesions/ Ulcerations Neck: Supple, No JVD, Negative Carotid Bruits Chest wall/lungs: Air entry diminished in bilateral lung bases. No crepitation/rhonchi. No acute chest wall tenderness. The left ribs fracture but not acutely tender Cardiovascular: Regular rate, Regular Rhythm, Normal S1, Normal S2, No murmurs Abdomen: Bowel Sounds Present, Soft, Non Tender, Non-Distended : Spontaneously voiding urine. Chronic urinary incontinent no dysuria. No renal angle tenderness. No suprapubic tenderness. Extremities: No edema, Capillary Refill Less than 3 Seconds Skin: No rashes, No breakdown Musculoskeletal: Right knee swollen, tender. ROM not attempted. Bilateral hip replacement. Left pubic ramus fracture and tender. Left shoulder fracture with mild tenderness. Spine: No acute neck tenderness. No acute lumbar spine tenderness. Neurological: Cranial nerves II-XII grossly intact, DTR 2+/4 . No saddle anesthesia. Muscle strength not instrumented because of pain. Gross sensation to touch and pressure are equal and symmetrical on both sides. Psych/Mental Status: Flat affect. In pain. Assessment & Plan Assessment/Plan (1) Fall: (2) Fracture of pubic ramus: (3) Closed traumatic nondisplaced fracture of rib: (4) Right knee sprain: PLAN: Plan This is a 72-year-old female who came to ED after fall with no loss of consciousness. 1. Acute left posterior rib fracture and minimally displaced left inferior ramus fracture, acute left knee injury probably soft tissue injury after fall from standing height, most likely pathological fracture: Patient is being admitted on [facility] floor for pain control PT and OT. Patient feels muscle spasm on right thigh. Orthopedic consult requested. CT chest abdomen and pelvis shows nondisplaced left seventh eighth and ninth ribs posteriorly with no pneumothorax. CT head and C-spine does not show acute abnormality or acute fracture. Tibia-fibula x-ray shows no acute fracture. Femur x-ray shows no acute fracture but remote right hip fracture with internal fixation. She has osteopenia and degenerative changes of hip and knees. Her right knee is concerning to me possible hematoma. 10/30: Knee x-ray reviewed. Decreased joint space but does not show possible hemarthrosis. Discussed with Dr. Portillo and requested evaluation to rule out hematoma/ligament injury. She twisted her right knee during fall backwards. Patient does not have true allergy with diclofenac. She had taken Advil/ibuprofen in the past. Started on ibuprofen 600 mg 3 times daily after half an hour of Solu-Medrol 60 mg IV 1 dose. Protonix 40 mg daily. Zanaflex 4 mg every 8 hourly. Famotidine discontinued. BUN 25. Leukocytosis improved. 10/31: Orthopedic surgery on consult reviewed and appreciated. CT right lower extremity individually reviewed and shows small chip fracture of anterolateral medial aspect of tibial plateau without depression. Bones are severely osteopenic, subchondral cyst and degenerative changes. Subcutaneous edema or fat. Patient states pain is not better than yesterday. Started on dexamethasone 2 mg twice daily. Discussed with orthopedic surgeon Dr. Portillo. 11/01: Patient x-rays and CT suggestive of osteopenia and clinically osteoporosis with multiple pathological fractures after fall from standing height.Continue NSAID, dexamethasone and muscle relaxant. Patient also on gabapentin and intermittent Oxy IR morphine and Dilaudid as needed for moderate to severe pain. PT and OT. Patient wants to go to TCU. On dexamethasone can be tapered to 2 mg twice daily from tomorrow AM. 2. Acute urine retention: Patient had more than 2 L of fluid still did not put out urine. Bladder scan done earlier showed empty bladder. Straight cath advised. Patient also has left pubic inferior ramus fracture therefore my interpretation. Creatinine is normal. 10/31 urine retention resolved yesterday. Patient is spontaneous voiding urine. Patient had 750 mill urine output since midnight a.m. today. Creatinine is normal. 3. Chronic systolic heart failure with nonischemic cardiomyopathy: Patient had recent 2D echo January 2021, EF recovered 60%. No RWMA. In 2018 her EF was 30% and coronaries were normal. Patient was given IV fluid. She was dehydrated. 10/30: Patient blood pressure was low last night in 90s to low 100s. Hold antihypertensive medications. Patient was short of breath. Chest x-ray ordered. Continue incentive spirometry. Resume fluid after chest x-ray does not show fluid overload/pulmonary edema. 10/31: IV fluid discontinued yesterday. 3. COPD: Patient not in acute exacerbation. DuoNeb as needed ordered. 4. Chronic anemia: Baseline hemoglobin has been fluctuating anywhere from 10 to 12 g/dL.? Admission hemoglobin is 11 to 5 g%. Monitor CBC. 5. GERD: Continue Pepcid. 6. Anxiety and depression: Continue Wellbutrin and Paxil. 7. DVT prophylaxis: SCDs, subcu Lovenox after surgery Living will/advanced directive/end of life care: Patient does not have living will or advanced directive. She does not have dilated power of mergers and acquisitions attorney for health per her and son is next of kin. Her is admitted to [facility]. After discussion of benefits/risks procedures involved with full code, DNR CC arrest and DNR CC, the patient opted for full code. Patient does want artificial life support including intubation, tube feed, ventilator and/chest compression, central venous catheter, vasopressor and DC shock if needed Total time spent in [id number] encounter in discussion of advanced directive 17 minutes. Clinical Impression(s) from Imaging Studies Chest/Abdomen/Pelvis CT 10/29/22 14:32 IMPRESSION: Comminuted fractures of the left humeral neck and head. Multiple left posterior rib fractures, nondisplaced. Minimally displaced fracture left inferior pubic ramus. Multiple thoracolumbar biconcave compression fractures of uncertain chronicity in the lumbar spine, chronic in the thoracic spine by comparison with prior study. No acute pulmonary findings. No injury to solid viscera. Tibia/Fibula X-Ray 10/29/22 14:32 IMPRESSION: 1. Osteopenia and evidence of remote fractures. There is no acute fracture or dislocation. 2. Degenerative changes of the knee and ankle. Brain CT 10/29/22 15:20 IMPRESSION: Volume loss with chronic white matter changes. No acute intracranial findings. Cervical Spine CT 10/29/22 15:20 IMPRESSION: Degenerative changes. No acute fracture of the cervical spine. Femur X-Ray 10/29/22 15:30 IMPRESSION: 1. Remote right hip fracture with internal fixation. 2. Osteopenia and degenerative changes of the hip and knee. Charges/Coding Visit Charges Inpatient E&M: 00910 Subs Hosp L2
[2022-11-01 10:00] VITALS: BP 96/42; PULSE 90; RESP 18; TEMP 36.7; O2SAT 100
[2022-11-01] MEDS: Calcium Carb/Vitamin D 1 TABLET Tablet PO ×2 (10:07→16:12)
[2022-11-01] MEDS: dexAMETHasone 4 MG Tablet PO ×2 (10:07→16:12)
[2022-11-01] MEDS: Nystatin Powder 15gm Bottle 1 APPLIC TOPICAL ×2 (10:07→21:09)
[2022-11-01] MEDS: Pantoprazole Sodium 40 MG Tablet PO ×2 (10:07→21:11)
[2022-11-01] MEDS: Cholecalciferol (VIT D3) 25 MCG TABLET (1,000 UNITS) PO (10:08)
[2022-11-01] MEDS: buPROPion (SR) 150 MG Tablet.SA PO ×2 (10:08→21:09)
[2022-11-01] MEDS: Lisinopril 2.5 MG Tablet PO (10:08)
[2022-11-01] MEDS: Paroxetine 20 MG Tablet 30 MG PO (10:08)
--- NOTE | 2022-11-01 10:54 | CASEMGMT ---
Addendum entered by Staci Oneill 11/01/22 15:08: MOISES updated Shannan at [facility] that therapy notes were in for pt. Shannan to review and make determination on acceptance. Original Note: Social work SW following along for determination on need for SNF from weekend SW report. SW reviewed therapy notes, pt has refused past two times. SW into pt room to discuss discharge plan. Pt immediately stating I want TCU. SW explained no SNF referral can be sent until pt works with [facility] therapy team for an evaluation. Pt upset, stated They only came to see me once. I just didn't feel like moving then. SW validated pt feelings about being in pain when therapy came. SW explained the importance and walked pt through the process and why therapy evaluations are necessary. Pt voiced understanding, stated would work with therapy team today when they come to pt room. MOISES did send referral to Shannan at [facility] and informed that there are not yet therapy evaluations. Shannan informed would review pt case once therapy is in and make determination then. PLAN: TCU, pending acceptance NADIRA Youssef
[2022-11-01 14:47] VITALS: O2SAT 97
[2022-11-01 15:00] VITALS: BP 99/41; PULSE 89; RESP 18; TEMP 36.7; O2SAT 98
[2022-11-01 20:50] VITALS: BP 120/50; PULSE 85; RESP 18; TEMP 36.9; O2SAT 98
[2022-11-02 00:12] VITALS: BP 123/54; PULSE 64; RESP 16; TEMP 36.5; O2SAT 98
[2022-11-02] MEDS: oxyCODONE 5 MG Tablet PO ×3 (00:19→11:42)
[2022-11-02] MEDS: 0.9% Saline Lock 10 ML Syringe IV (03:56)
[2022-11-02 04:02] VITALS: BP 120/65; PULSE 69; RESP 16; TEMP 36.9; O2SAT 99
[2022-11-02 05:51] VITALS: BMI 37.9
[2022-11-02] MEDS: Acetaminophen 500 MG Tablet 1000 MG PO (06:45)
[2022-11-02] MEDS: tiZANidine HCl 2 MG Tablet 4 MG PO (06:45)
[2022-11-02] MEDS: Ibuprofen 600 MG Tablet PO (06:45)
[2022-11-02 07:30] VITALS: O2SAT 98
--- NOTE | 2022-11-02 07:53 | CASEMGMT ---
Addendum entered by Staci Oneill 11/02/22 09:42: Shannan from TCU reached out. Pt can be accepted to TCU today. SW notified MD Dewitt who shared intent to d/c pt there today. SW also updated pt, who shared excitement to go to TCU for rehab. SW notified pt nurse of need for covid swab. PLAN: D/c to TCU today NADIRA Youssef Original Note: Social Work Shannan from [facility] messaged. Still waiting on Pharmacy approval for acceptance. Shannan stated pt tentatively accepted, pending pharm approval. Plan: TCU, pending formal acceptance Staci Oneill
[2022-11-02] MEDS: dexAMETHasone 4 MG Tablet PO (08:12)
[2022-11-02] MEDS: Calcium Carb/Vitamin D 1 TABLET Tablet PO (08:12)
[2022-11-02] MEDS: Menthol/Lanolin/Calamine/Znox 113 GM Tube 1 APPLIC TOPICAL (08:13)
[2022-11-02] MEDS: Cholecalciferol (VIT D3) 25 MCG TABLET (1,000 UNITS) PO (08:13)
[2022-11-02] MEDS: Paroxetine 20 MG Tablet 30 MG PO (08:13)
[2022-11-02] MEDS: Nystatin Powder 15gm Bottle 1 APPLIC TOPICAL (08:13)
[2022-11-02] MEDS: Lisinopril 2.5 MG Tablet PO (08:14)
[2022-11-02] MEDS: Pantoprazole Sodium 40 MG Tablet PO (08:14)
[2022-11-02] MEDS: buPROPion (SR) 150 MG Tablet.SA PO (08:14)
[2022-11-02 09:51] VITALS: BP 91/41; PULSE 73; RESP 18; TEMP 36.4; O2SAT 98
--- NOTE | 2022-11-02 10:12 | PCM.TXEXTCAR ---
Diet Diet Order/Speech Therapy: 10/29/22 18:22 Diet: Cardiac - Heart Healthy Food consistency:: Regular Liquid Consistency:: Regular/Thin Routine Orders/Code Status O2 Liters per Minute: 2 O2 Frequency: Continuous Keep PO Greater than or Equal to (%): 90 Wound(s) Right hand: Wound Type: Abrasion Therapies Weight Bearing: Immobilization of the lef (Left arm, right leg) Extremity Affected:: left upper Physical Therapy: Nonweightbearing of the left arm, nonweightbearing of the right leg Occupational Therapy: Eval and Treat Problem/Diagnosis (1) Fall: Status: Acute Code(s): W19.XXXA - Unspecified fall, initial encounter (2) Fracture of pubic ramus: Status: Acute Code(s): S32.599A - Other specified fracture of unspecified pubis, initial encounter for closed fracture (3) Closed traumatic nondisplaced fracture of rib: Status: Acute Code(s): S22.39XA - Fracture of one rib, unspecified side, initial encounter for closed fracture (4) Right knee sprain: Status: Acute Code(s): S83.91XA - Sprain of unspecified site of right knee, initial encounter (5) Humerus surgical neck fracture: Status: Acute Code(s): S42.213A - Unspecified displaced fracture of surgical neck of unspecified humerus, initial encounter for closed fracture (6) Fracture of right tibial plateau: Status: Acute Code(s): S82.141A - Displaced bicondylar fracture of right tibia, initial encounter for closed fracture (7) Hypoxia: Status: Acute Code(s): R09.02 - Hypoxemia Comment: Etiology unknown (8) COPD (chronic obstructive pulmonary disease): Status: Chronic Code(s): J44.9 - Chronic obstructive pulmonary disease, unspecified (9) Essential hypertension: Status: Chronic Code(s): I10 - Essential (primary) hypertension Allergies/Procedures Done in Hospital Allergies diclofenac [From Voltaren] Allergy (Verified 07/13/22 16:33) Rash hydrocodone [From Vicodin] Adverse Reaction (Verified 07/13/22 16:33) Other Procedures: None Type of Care/Length of Stay Estimated LOS: Convalescent Care Less Than 30 days Type of Care Needed: Skilled Rehab Potential: Good Prognosis: Good Additional Orders/Day of Discharge H&P will serve as current which was dated: 10/29/22 Day of Discharge: 11/02/22 Discharge Plan Admission Admit Date/Time: 10/29/22 17:19 Primary Reason for Your Visit: Right tibial plateau fracture, fracture of the left inferior pubic ramus Attending Provider: Brad Dewitt Primary Care Provider: Kei Pineda Consulting Providers: Logan Portillo ; Aram Herbert Instructions Additional Instructions / Restrictions: Wear right knee immobilizer when up, patient is able to remove at rest Discharge Orders/Prescriptions Prescriptions: New bupropion HCl 150 mg Tablet Sustained-Release 12 Hr 150 mg PO BID Qty: 0 0RF carvedilol 3.125 mg Tablet 3.125 mg PO BIDCM Qty: 0 0RF cholecalciferol (vitamin D3) 25 mcg (1,000 unit) Tablet 25 mcg PO DAILY Qty: 0 0RF polysaccharide iron complex [Ferrex 150] 150 mg iron Capsule 150 mg PO DAILYCM Qty: 0 0RF ibuprofen 600 mg Tablet 600 mg PO Q8 Qty: 0 0RF menthol-zinc oxide [Calmoseptine] 0.44-20.6 % Ointment 1 applic topical BID Qty: 0 0RF Protocol: *Topical Application Instructions APPLICATION INSTRUCTIONS: affected areas nystatin [Nyamyc] 100,000 unit/gram Powder 1 applic topical BID Qty: 0 0RF Protocol: *Topical Application Instructions APPLICATION INSTRUCTIONS: Abdominal folds, groin oxycodone 5 mg Tablet 5 mg PO Q4H PRN PRN (Reason: Pain Score 4-5) 2 Days Qty: 10 0RF tizanidine 2 mg Tablet 4 mg PO TID Qty: 0 0RF pantoprazole 40 mg Tablet,Delayed Release (Dr/Ec) 40 mg PO BID Qty: 0 0RF Continued gabapentin 300 mg capsule 300 mg PO TID PRN (Reason: Pain) paroxetine HCl 30 MG tablet 30 mg PO DAILY calcium carbonate-vitamin D3 1 TABLET tablet 1 tab PO BIDCM acetaminophen 500 MG tablet 1,000 mg PO Q8 PRN (Reason: Pain) lisinopril 2.5 mg tablet 2.5 mg PO DAILY Rx Instructions: TAKE 1 TABLET BY MOUTH DAILY Discontinued famotidine 20 mg tablet 20 mg PO BID furosemide 40 MG tablet 40 mg PO DAILY cholecalciferol (vitamin D3) 1,000 UNIT tablet 1,000 unit PO QWEEK bupropion HCl 150 MG tablet sustained-release 12 hr 150 mg PO BID carvedilol 12.5 mg tablet 12.5 mg PO BID polysaccharide iron complex 150 MG capsule 150 mg PO DAILYCM potassium chloride 20 MEQ tablet,ER particles/crystals 20 meq PO BIDCM Viviscal 1 tab PO BIDCM Referrals / Follow Up: Kei Pineda DO [Primary Care Provider] - Logan Portillo MD [Med Staff - Active Staff] - See Referral Note (In 2 weeks, call for appointment) Disposition Disposition (needs filled in before D/C Order can be placed): Residential Facility
--- NOTE | 2022-11-02 10:48 | DS.PCM_ITS ---
Providers Date of Admission: 10/29/22 Date of Discharge: 11/02/22 Primary Care Physician: Dr. Kei Pineda, Consultations 10/29/22 18:22 Consult: Orthopedics Routine Consulting Provider: Logan Portillo Reason for Consult: right knee swelling, hematoma/hemarthrosis EMERGENT Consult: No MD Notified: Yes Date Notified: 10/29/22 Time Notified: 17:25 Method of Notification: ED Physician Initiated Reason For Visit: FALL AND PELVIC & RIB FRACTURE Diagnosis Discharge Diagnosis (1) Fall: Status: Acute Code(s): W19.XXXA - Unspecified fall, initial encounter (2) Fracture of pubic ramus: Status: Acute Code(s): S32.599A - Other specified fracture of unspecified pubis, initial encounter for closed fracture (3) Closed traumatic nondisplaced fracture of rib: Status: Acute Code(s): S22.39XA - Fracture of one rib, unspecified side, initial encounter for closed fracture (4) Right knee sprain: Status: Acute Code(s): S83.91XA - Sprain of unspecified site of right knee, initial encounter (5) Humerus surgical neck fracture: Status: Acute Code(s): S42.213A - Unspecified displaced fracture of surgical neck of unspecified humerus, initial encounter for closed fracture (6) Fracture of right tibial plateau: Status: Acute Code(s): S82.141A - Displaced bicondylar fracture of right tibia, initial encounter for closed fracture (7) Hypoxia: Status: Acute Code(s): R09.02 - Hypoxemia (8) COPD (chronic obstructive pulmonary disease): Status: Chronic Code(s): J44.9 - Chronic obstructive pulmonary disease, unspecified (9) Essential hypertension: Status: Chronic Code(s): I10 - Essential (primary) hypertension (10) Osteoporosis: Status: Chronic Code(s): M81.0 - Age-related osteoporosis without current pathological fracture Medications at Discharge Home Medications calcium carbonate 500 mg-vitamin D3 5 mcg (200 unit) tablet 1 tab PO BIDCM supplement 05/09/20 paroxetine HCl 30 mg tablet 30 mg PO DAILY depression 05/09/20 gabapentin 300 mg capsule 300 mg PO TID PRN Pain 01/26/21 acetaminophen 500 mg tablet 1,000 mg PO Q8 PRN Pain 10/29/22 lisinopril 2.5 mg tablet 2.5 mg PO DAILY heart 10/29/22 bupropion HCl 150 mg tablet,12 hr sustained-release 150 mg PO BID #0 ea 11/02/22 carvedilol 3.125 mg tablet 3.125 mg PO BIDCM #0 tabs 11/02/22 cholecalciferol (vitamin D3) 25 mcg (1,000 unit) tablet 25 mcg PO DAILY #0 tabs 11/02/22 ibuprofen 600 mg tablet 600 mg PO Q8 #0 tabs 11/02/22 menthol 0.44 %-zinc oxide 20.6 % topical ointment (Calmoseptine) 1 applic topical BID #0 grams 11/02/22 nystatin 100,000 unit/gram topical powder (Nyamyc) 1 applic topical BID #0 grams 11/02/22 oxycodone 5 mg tablet 5 mg PO Q4H PRN PRN Pain Score 4-5 2 days #10 tabs 11/02/22 pantoprazole 40 mg tablet,delayed release 40 mg PO BID #0 tabs 11/02/22 polysaccharide iron complex 150 mg iron capsule (Ferrex) 150 mg PO DAILYCM #0 caps 11/02/22 tizanidine 2 mg tablet 4 mg PO TID #0 tabs 11/02/22 Hospital Course Operations None Procedures None Summary of Care Provided Minutes Spent on Discharge: 32 Hospital Course: 72-year-old white female was seen in the emergency room at [facility] after sustaining a fall at home when she was trying to walk up steps. She complained of severe pain in her right knee, she also complained of some pelvic discomfort. In the emergency room, she had extensive imaging studies which showed a minimally displaced left inferior pubic ramus fracture and multiple left posterior rib fractures which were nondisplaced. There was noted to be a comminuted fracture of the left femoral neck and head which was present since July 2022. Patient complained of right knee pain, plain images did not show an obvious fracture of the right knee. Patient was admitted to [place] [address], she was seen in consultation by orthopedic surgery and she was seen by PT and OT, she was treated with pain medications, CT scan of the right knee revealed a tibial plateau fracture. Patient was felt to benefit from short-term rehab services at a half-way facility, her insurance company approved TCU for short-term rehab services. Patient required low-flow oxygen via nasal cannula, the exact etiology was unclear, chest x-ray did not show any active infiltrates. On 11/02/2022, patient was seen and examined: On examination she appeared her stated age, she does not appear to be in any distress. Vital signs as documented. Skin warm and dry and without overt rashes. Patient has evidence of superficial ecchymosis noted on areas of the body. Neck without JVD, thyroid appears normal, trachea is midline, neck is supple. Lungs clear, normal air movement was noted. Heart exam notable for regular rhythm, normal sounds and absence of murmurs, rubs or gallops. Abdomen unremarkable and without evidence of organomegaly, masses, or abdominal aortic enlargement, bowel sounds are present in all 4 quadrants, no abdominal tenderness was noted. Extremities-there is generalized edema to the right knee noted, no cyanosis was noted, no clubbing was noted. Neuro: Cranial nerves II through XII are grossly intact, no focal motor deficits were noted, sensation to light touch and pinprick is intact, motor exam 5/5 throughout. Psych: Patient is alert and oriented x3, she does not appear anxious or depressed, she does not appear agitated. Patient was discharged to TCU for short-term inpatient skilled services on 11/02/2022. Weight / BMI Weight Weight: 85.3 kg Body Mass Index (BMI) 37.9 ABG / Lab / Microbiology Data Result Diagrams: 10/30/22 05:30 11/01/22 04:30 Microbiology: Microbiology 11/02/22 10:00 Nasal Secretion SARS-CoV-2 Antigen (Rapid) - Final Meaningful Use Info Meaningful Use Diagnoses (Choose all that apply): None applicable Discharge Plan Admission Admit Date/Time: 10/29/22 17:19 Primary Reason for Your Visit: Right tibial plateau fracture, fracture of the left inferior pubic ramus Attending Provider: Brad Dewitt Primary Care Provider: Kei Pineda Consulting Providers: Logan Portillo ; Aram Herbert Instructions Additional Instructions / Restrictions: Wear right knee immobilizer when up, patient is able to remove at rest Discharge Orders/Prescriptions Prescriptions: New bupropion HCl 150 mg Tablet Sustained-Release 12 Hr 150 mg PO BID Qty: 0 0RF carvedilol 3.125 mg Tablet 3.125 mg PO BIDCM Qty: 0 0RF cholecalciferol (vitamin D3) 25 mcg (1,000 unit) Tablet 25 mcg PO DAILY Qty: 0 0RF polysaccharide iron complex [Ferrex 150] 150 mg iron Capsule 150 mg PO DAILYCM Qty: 0 0RF ibuprofen 600 mg Tablet 600 mg PO Q8 Qty: 0 0RF menthol-zinc oxide [Calmoseptine] 0.44-20.6 % Ointment 1 applic topical BID Qty: 0 0RF Protocol: *Topical Application Instructions APPLICATION INSTRUCTIONS: affected areas nystatin [Nyamyc] 100,000 unit/gram Powder 1 applic topical BID Qty: 0 0RF Protocol: *Topical Application Instructions APPLICATION INSTRUCTIONS: Abdominal folds, groin oxycodone 5 mg Tablet 5 mg PO Q4H PRN PRN (Reason: Pain Score 4-5) 2 Days Qty: 10 0RF tizanidine 2 mg Tablet 4 mg PO TID Qty: 0 0RF pantoprazole 40 mg Tablet,Delayed Release (Dr/Ec) 40 mg PO BID Qty: 0 0RF Continued gabapentin 300 mg capsule 300 mg PO TID PRN (Reason: Pain) paroxetine HCl 30 MG tablet 30 mg PO DAILY calcium carbonate-vitamin D3 1 TABLET tablet 1 tab PO BIDCM acetaminophen 500 MG tablet 1,000 mg PO Q8 PRN (Reason: Pain) lisinopril 2.5 mg tablet 2.5 mg PO DAILY Rx Instructions: TAKE 1 TABLET BY MOUTH DAILY Discontinued famotidine 20 mg tablet 20 mg PO BID furosemide 40 MG tablet 40 mg PO DAILY cholecalciferol (vitamin D3) 1,000 UNIT tablet 1,000 unit PO QWEEK bupropion HCl 150 MG tablet sustained-release 12 hr 150 mg PO BID carvedilol 12.5 mg tablet 12.5 mg PO BID polysaccharide iron complex 150 MG capsule 150 mg PO DAILYCM potassium chloride 20 MEQ tablet,ER particles/crystals 20 meq PO BIDCM Viviscal 1 tab PO BIDCM Referrals / Follow Up: Kei Pineda DO [Primary Care Provider] - Logan Portillo MD [Med Staff - Active Staff] - See Referral Note (In 2 weeks, call for appointment) Disposition Disposition (needs filled in before D/C Order can be placed): [facility] Charges/Coding Visit Charges Inpatient E&M: 28642 Disch Hosp >30min
--- NOTE | 2022-11-02 11:14 | NURSING ---
Called report to TCU and gave report to Gali. Pt to eat lunch here and send over after lunch and she will be in room 5.
--- NOTE | 2022-11-02 11:15 | CASEMGMT ---
Social Work? MOISES notified pt of discharge to TCU today. Pt asked SW to call family to update on plan. MOISES called pt second contact, sister Yajaira, as pt currently in hospital with trach. Notified Yajaira pt will be transferred to TCU today. MOISES faxed all discharge orders to TCU.? MOISES made copies of discharge orders and placed on pt chart. Sent original orders in envelope with pt upon discharge.? Disposition: TCU, skilled, convalescent, level of care?? NADIRA Youssef?
--- NOTE | 2022-11-02 11:39 | PHA.DC.MR ---
Pharmacy Service has performed discharge medication reconciliation for this patient. The patient's discharge medication list was reviewed for discrepancies and discrepancies were resolved. Home Medications calcium carbonate 500 mg-vitamin D3 5 mcg (200 unit) tablet 1 tab PO BIDCM supplement 05/09/20 paroxetine HCl 30 mg tablet 30 mg PO DAILY depression 05/09/20 gabapentin 300 mg capsule 300 mg PO TID PRN Pain 01/26/21 acetaminophen 500 mg tablet 1,000 mg PO Q8 PRN Pain 10/29/22 lisinopril 2.5 mg tablet 2.5 mg PO DAILY heart 10/29/22 bupropion HCl 150 mg tablet,12 hr sustained-release 150 mg PO BID #0 ea 11/02/22 carvedilol 3.125 mg tablet 3.125 mg PO BIDCM #0 tabs 11/02/22 cholecalciferol (vitamin D3) 25 mcg (1,000 unit) tablet 25 mcg PO DAILY #0 tabs 11/02/22 ibuprofen 600 mg tablet 600 mg PO Q8 #0 tabs 11/02/22 menthol 0.44 %-zinc oxide 20.6 % topical ointment (Calmoseptine) 1 applic topical BID #0 grams 11/02/22 nystatin 100,000 unit/gram topical powder (Nyamyc) 1 applic topical BID #0 grams 11/02/22 oxycodone 5 mg tablet 5 mg PO Q4H PRN PRN Pain Score 4-5 2 days #10 tabs 11/02/22 pantoprazole 40 mg tablet,delayed release 40 mg PO BID #0 tabs 11/02/22 polysaccharide iron complex 150 mg iron capsule (Ferrex) 150 mg PO DAILYCM #0 caps 11/02/22 tizanidine 2 mg tablet 4 mg PO TID #0 tabs 11/02/22
== END 2022-11-02 13:35 | disposition skilled nursing facility (03) | DRG 562 ==
LOC: ED 17:41 → MS3 18:10
PROVIDERS: Admitting Provider Internal Medicine; Emergency Provider Emergency Medicine; PCP Student in an Organized Health Care Education/Training Program; Visit Provider Internal Medicine
DX: S82.142A Displaced bicondylar fracture of left tibia, initial encounter for closed fracture (principal); S72.001A Fracture of unspecified part of neck of right femur, initial encounter for closed fracture; I42.0 Dilated cardiomyopathy; S22.42XA Multiple fractures of ribs, left side, initial encounter for closed fracture; S42.302A Unspecified fracture of shaft of humerus, left arm, initial encounter for closed fracture; I50.22 Chronic systolic (congestive) heart failure; S42.92XA Fracture of left shoulder girdle, part unspecified, initial encounter for closed fracture; I11.0 Hypertensive heart disease with heart failure; D64.9 Anemia, unspecified; J44.9 Chronic obstructive pulmonary disease, unspecified; E86.9 Volume depletion, unspecified; K21.9 Gastro-esophageal reflux disease without esophagitis; M17.0 Bilateral primary osteoarthritis of knee; S83.91XA Sprain of unspecified site of right knee, initial encounter; M19.079 Primary osteoarthritis, unspecified ankle and foot; M16.10 Unilateral primary osteoarthritis, unspecified hip; W19.XXXA Unspecified fall, initial encounter; M25.461 Effusion, right knee; Z51.5 Encounter for palliative care; Z66 Do not resuscitate; R09.02 Hypoxemia; M85.89 Other specified disorders of bone density and structure, multiple sites; Z79.1 Long term (current) use of non-steroidal anti-inflammatories (NSAID); Z87.891 Personal history of nicotine dependence; Z96.643 Presence of artificial hip joint, bilateral; M81.0 Age-related osteoporosis without current pathological fracture
CPT/HCPCS: 36415; 70450; 71045; 71250; 72125; 73552; 73590; 73700; 74176; 80048; 80076; 85014; 85018; 85025; 85610; 85730; 87426; 94668; 97162; 97167; 97530; 97535; 99252; 99285; J7120; A4216; G0463; J2405

== ENCOUNTER 2022-11-02 13:40 | Inpatient (IN) | payer MEDICARE, OTHER, SELFPAY ==
[2022-11-02 13:51] VITALS: BP 116/46; PULSE 86; RESP 16; TEMP 36.1; O2SAT 94; BMI 38.4
[2022-11-02] MEDS: Acetaminophen 500 MG Tablet 1000 MG PO (15:06)
[2022-11-02] MEDS: oxyCODONE 5 MG Tablet PO ×2 (15:07→22:43)
--- NOTE | 2022-11-02 16:46 | CASEMGMT ---
Social Work Met with patient to complete initial assessment. Pt known to this worker from previous stay. Nephew present in room. Pt granted permission to complete assessment with nephew present. Updated assessment information. Provided medical alert resources. Discussed code status and MOLST form. No changes to full code wishes. Pt denies wanting to complete advanced directives. Educated to Medicare benefit. Encouraged to contact secondary insurance to ensure copay coverage. Pt's goal is to return home close to PLOF. Pt is currently painful and has NWB orders. Pt explains exhusband was placed in [facility] yesterday. Pt has not seen patient since hospital admission from fall. SW provided emotional support and offered to assist with coordinating visit with exQnektsband. Pt appreciative. SW to continue to follow for DC planning. -- SW received call from [facility] requesting coordination for visit with exQnektsband. [facility] is able to transport pt via cot to visit pt in TCU on 11/03 about 1000. MOISES agreed and appreciative. SW notified pt and IDT. Najma Strickland, BUTCH AKINSW
[2022-11-02] MEDS: Calcium Carb/Vitamin D 1 TABLET Tablet PO (18:06)
[2022-11-02] MEDS: Carvedilol 3.125 MG TABLET PO (18:06)
[2022-11-02] MEDS: Pantoprazole Sodium 40 MG Tablet PO (18:06)
[2022-11-02] MEDS: buPROPion (SR) 150 MG Tablet.SA PO (18:06)
[2022-11-02] MEDS: Nystatin Powder 15gm Bottle 1 APPLIC TOPICAL (18:07)
[2022-11-02] MEDS: Menthol/Lanolin/Calamine/Znox 113 GM Tube 1 APPLIC TOPICAL (18:07)
--- NOTE | 2022-11-02 19:08 | HP.PCM_ITS ---
HPI - General General Date of Admission: 11/02/22 Date of Service: 11/02/22 Chief Complaint: Here for rehabilitation. HPI Narrative 10/29/2022 BETH HARTMAN, is a 72 Female who presents to [facility] for fall. Fell down 3-4 steps, lost balance, fell backwards. Severe right knee pain, history of bilateral ORIF of hips, history of left humerus fracture. X-ray right femur negative. X-ray right tibia/fibula negative. CT brain negative, CT cervical spine negative, CT chest/abdomen/pelvis showed chronic left humerus fracture. Rib fractures 7, 8, 9, No pneumothorax. Thoracolumbar compression fracture. Left inferior pubic ramus fracture. Hypoxia off oxygen. 10/29/2022 Admit to Hospital. PT/OT for debility. Consult Orthopedics for multiple fractures. Right knee concerning for hemarthrosis. 10/30/2022 Severe right knee pain. Ibuprofen, Solu-Medrol, Zanaflex, Protonix for pain. Straight for urinary retention. Blood pressure low, hold blood pressure medications, give IV fluids. 10/31/2022 Pain level unchanged. Ortho recommended CT right lower extremity, showed small chip fracture right tibial plateau. Dexamethasone 2mg twice daily started. Urinary retention resolved. Stop IV fluids to avoid fluid overload. 11/01/2022 PT/OT for TCU. Pain control with oxycodone, morphine, dilaudid. 11/02/2022 Admit to TCU with debility, here for rehabilitation, strengthening, prior to discharge home with family. [facility] Medical History Anemia Bilateral pleural effusion Broken shoulder COPD (chronic obstructive pulmonary disease) Depression Dilated cardiomyopathy Essential hypertension GERD (gastroesophageal reflux disease) Obesity Obstructive sleep apnea Osteoarthritis Osteoporosis Home Medications calcium carbonate 500 mg-vitamin D3 5 mcg (200 unit) tablet 1 tab PO BIDCM supplement 05/09/20 [History Last Taken 10/28/22] paroxetine HCl 30 mg tablet 30 mg PO DAILY depression 05/09/20 [History Last Taken 10/29/22] gabapentin 300 mg capsule 300 mg PO TID PRN Pain 01/26/21 [History Last Taken 10/26/22] acetaminophen 500 mg tablet 1,000 mg PO Q8 PRN Pain 10/29/22 [History Last Taken Unknown] lisinopril 2.5 mg tablet 2.5 mg PO DAILY heart 10/29/22 [History Last Taken 10/29/22] bupropion HCl 150 mg tablet,12 hr sustained-release 150 mg PO BID mood 11/02/22 [History Last Taken Unknown] carvedilol 3.125 mg tablet 3.125 mg PO BIDCM heart 11/02/22 [History Last Taken Unknown] cholecalciferol (vitamin D3) 25 mcg (1,000 unit) tablet 25 mcg PO DAILY supplement 11/02/22 [History Last Taken Unknown] ibuprofen 600 mg tablet 600 mg PO Q8 pain 11/02/22 [History Last Taken Unknown] menthol 0.44 %-zinc oxide 20.6 % topical ointment (Calmoseptine) 1 applic topical BID skin protection 11/02/22 [History Last Taken Unknown] nystatin 100,000 unit/gram topical powder (Nyamyc) 1 applic topical BID moisture/yeast 11/02/22 [History Last Taken Unknown] oxycodone 5 mg tablet 5 mg PO Q4H PRN PRN Pain Score 4-5 2 days #10 tabs 11/02/22 [Rx Last Taken Unknown] pantoprazole 40 mg tablet,delayed release 40 mg PO BID reflux 11/02/22 [History Last Taken Unknown] polysaccharide iron complex 150 mg iron capsule (Ferrex) 150 mg PO DAILYCM supplement 11/02/22 [History Last Taken Unknown] tizanidine 2 mg tablet 4 mg PO TID muscle spasms 11/02/22 [History Last Taken Unknown] Allergy/AdvReac Type Severity Reaction Status Date / Time diclofenac [From Voltaren] Allergy Rash Verified 07/13/22 16:33 hydrocodone [From Vicodin] AdvReac Other Verified 07/13/22 16:33 Family History Mother Diabetes Heart disease Hypertension Hyperlipidemia Father Diabetes Heart disease Hypertension Hyperlipidemia Surgical History History of History of gastric bypass History of herniorrhaphy History of left heart catheterization (12/05/18) History of open reduction and internal fixation (ORIF) procedure History of open reduction and internal fixation (ORIF) procedure History of tonsillectomy Hx of cholecystectomy Social History (Updated 11/02/22 @ 19:[address] Kishan Espinal MD) household members: family Smoking Status: Former smoker alcohol intake: never substance use type: does not use ROS Constitutional Constitutional: Denies chills, fever(s) or weight gain ENT HEENT: Denies headache(s), nasal congestion or nasal discharge Cardiovascular Cardiovascular: Denies chest pain or palpitations Respiratory/Chest Respiratory/Chest: Denies cough, excessive phlegm production or shortness of breath with exertion Gastrointestinal Gastrointestinal: Denies abdominal pain, nausea or vomiting Genitourinary Genitourinary: Denies dysuria Musculoskeletal Musculoskeletal: Denies joint pain or joint swelling Integumentary Integumentary: Denies rash or wounds Neurologic Neurologic: Denies focal weakness, numbness or tingling Psychiatric Psychiatric: Denies anxiety, auditory hallucinations, depression, homicidal ideation or suicidal ideation Vital Signs Vital Signs Vital Signs: 11/02/22 13:51 11/02/22 13:51 Temperature 96.9 F L Temperature Source Temporal Pulse Rate 86 Pulse Rhythm Regular Pulse Strength Normal (2+) Respiratory Rate 16 Respiratory Effort Normal Respiratory Depth Normal Respiratory Pattern Normal Blood Pressure 116/46 L Blood Pressure Mean 69 Blood Pressure Source Monitor Blood Pressure Position Semi-Fowlers Blood Pressure Location Right Arm Pulse Ox 94 Oxygen Delivery Method Room Air Room Air Weight Weight: 86.296 kg Body Mass Index (BMI) 38.4 Physical Exam Const alert General Appearance: cooperative HEENT normocephalic Eyes PERRL and EOMs intact bilaterally Neck supple, no JVD and no carotid bruits Resp normal respiratory effort, normal air movement and clear to auscultation bilaterally Cardio regular rate and regular rhythm GI normal to inspection, nondistended, normoactive bowel sounds, non-tender and non-distended Extremity normal capillary refill Extremity Narrative: Right knee immobilizer. General Extremity: Negative for edema Skin no rashes or lesions noted General Skin Exam: no breakdown Psych affect normal Appearance: appropriate Assessment & Plan Assessment/Plan (1) Debility: (2) Fall: (3) Multiple rib fractures: (4) Fracture of left inferior pubic ramus: (5) Fracture of right tibial plateau: (6) GERD (gastroesophageal reflux disease): (7) Chronic systolic (congestive) heart failure: (8) Depression: (9) Iron deficiency anemia: (10) Hypokalemia: (11) Neuropathic pain: (12) Osteoporosis: PLAN: Plan 72 year old female with below past medical history hospitalized for fall, multiple rib fractures, left pelvis fracture, right tibial plateau fracture, complicated by urinary retention, admitted to TCU with debility, here for rehabilitation, strengthening, prior to discharge home with family. * Debility - PT/OT. * Pain - Tylenol 1000mg q6h prn pain (1-3), Oxycodone 5mg q4h prn pain (4-10), Ibuprofen 600mg q8h. * Bowel - senna/colace 2 tablets bid, MOM 30ml po x 1 prn. * Adult immunization - Administer pneumonia vaccine, covid19 vaccine, flu vacci ne as appropriate. * DVT prophylaxis - Hold, monitor. 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 * Calcium deficiency - Calcium D 1 tablet bidcm. * Chronic systolic congestive heart failure - Coreg 3.125mg bid, Lisinopril 2.5mg daily. * Neuropathic pain - Gabapentin 300mg tid prn. * Iron deficiency anemia - Ferrex 150mg daily. * Skin irritation - Calmoseptine topical bid. * Tinea corporis - Nystatin powder topical bid. * GERD - Pantoprazole 40mg bid. * Muscle spasm - Tizanidine 4mg tid. * Vitamin D deficiency - D3 25mcg daily.
[2022-11-02] MEDS: Ibuprofen 600 MG Tablet PO (22:41)
[2022-11-02] MEDS: tiZANidine HCl 2 MG Tablet 4 MG PO (22:42)
[2022-11-02] MEDS: Senna/Docusate Sodium 1 Tablet 2 TABLET PO (22:42)
[2022-11-03] MEDS: oxyCODONE 5 MG Tablet PO ×3 (05:07→20:57)
[2022-11-03] MEDS: buPROPion (SR) 150 MG Tablet.SA PO ×2 (05:08→17:26)
[2022-11-03] MEDS: tiZANidine HCl 2 MG Tablet 4 MG PO ×3 (05:08→20:59)
[2022-11-03] MEDS: Ibuprofen 600 MG Tablet PO ×3 (05:08→20:58)
[2022-11-03] MEDS: Pantoprazole Sodium 40 MG Tablet PO ×2 (05:08→17:25)
[2022-11-03] MEDS: Lisinopril 2.5 MG Tablet PO (05:09)
[2022-11-03] MEDS: PARoxetine 10 MG Tablet 30 MG PO (05:09)
[2022-11-03] MEDS: Menthol/Lanolin/Calamine/Znox 113 GM Tube 1 APPLIC TOPICAL ×2 (05:10→17:24)
[2022-11-03] MEDS: Nystatin Powder 15gm Bottle 1 APPLIC TOPICAL ×2 (05:10→17:28)
[2022-11-03 05:52] LABS: Absolute Lymphocyte Count 2.44 X10^3/uL (0.83-4.51); Absolute Neutrophil Count 5.1 X10^3/uL (2.0-7.7); Basophil# 0.02 X10^3/uL; Basophil% 0.2 % (0-1); Eosinophil# 0.02 X10^3/uL; Eosinophils% 0.2 % (0-5); Hematocrit 34.7 % (37-47); Hemoglobin 10.9 g/dL (12.0-15.0); Lymphocyte # 2.44 X10^3/ul (0.83-4.51); Lymphocyte % 29.9 % (19-41); Mean Corp Hgb Conc 31.4 g/dL (32-36); Mean Corpuscular Hgb 27.7 pg (27.0-32.0); Mean Corpuscular Volume 88.1 fL (81-99); Mean Platelet Vol. 9.8 fl (6.2-12.0); Monocyte# 0.57 X10^3/uL; NRBC Flagged by Analyzer 0 % (0-5); Neutrophil # 5.05 X10^3/uL (2.7-7.7); Platelet Count 249 K/mm3 (150-450); RBC Distribution Width CV 14.9 % (11.6-14.6); RBC Distribution Width SD 47.4 fl (35.1-43.9); Red Blood Count 3.94 M/mm3 (4.2-5.4); White Blood Count 8.2 K/mm3 (4.4-11.0)
[2022-11-03 06:31] LABS: Anion Gap 2 (5-15); BUN 34 mg/dL (7-18); BUN/Creat Ratio 47.9 RATIO (10-20); Chloride 105 mmol/L (98-107); Creatinine, Serum 0.71 mg/dL (0.55-1.02); EST Glomerular Filtration Rate 85 mL/min (>60); Est Glom Filt Rate - Afr Amer 103 mL/min (>60); Estimated Creatinine Clearance 67.24 ml/min; Glucose 84 mg/dL (74-106); Potassium 3.8 mmol/L (3.5-5.1); Sodium Level 140 mmol/L (136-145)
[2022-11-03] MEDS: Carvedilol 3.125 MG TABLET PO ×2 (08:30→17:24)
[2022-11-03] MEDS: Calcium Carb/Vitamin D 1 TABLET Tablet PO ×2 (08:30→17:25)
[2022-11-03] MEDS: Cholecalciferol (VIT D3) 25 MCG TABLET (1,000 UNITS) PO (08:31)
--- NOTE | 2022-11-03 08:57 | NURSING ---
Nurse called Dr Ray Elizabeth office to check status of last flu vaccine; 04/29/2021 was last documented administration. Will inform patient and give option for updated flu vaccine.
[2022-11-03] MEDS: Gabapentin 300 MG Capsule PO ×2 (09:19→20:57)
[2022-11-03] MEDS: FLU VACC QS2022-23(6MOS UP)/PF 60 MCG/0.5 ML SYRINGE IM (09:43)
[2022-11-03 10:00] VITALS: PULSE 88; RESP 16; O2SAT 92
--- NOTE | 2022-11-03 11:03 | PHA.CONS_ITS ---
TCU RX Drug Regimen Review Subjective: TCU Admission. 72 YOF presented to the ER with a fall. Hospitalized for fall, multiple rib fractures, left pelvis fracture, right tibial plateau fracture, complicated by urinary retention. Admitted to TCU with debility for strengthening and rehabilitation. Objective: Allergies diclofenac [From Voltaren] Allergy (Verified 07/13/22 16:33) Rash hydrocodone [From Vicodin] Adverse Reaction (Verified 07/13/22 16:33) Other Current Medications Generic Name Dose Route Start Last Admin Trade Name Freq PRN Reason Stop Dose Admin Acetaminophen 1,000 mg 11/02/22 19:56 Acetaminophen 500 Mg Tablet PO Q6H PRN PRN Pain Score 1-3 Bupropion HCl 150 mg 11/02/22 18:00 11/03/22 05:08 Bupropion (Sr) 150 Mg Tablet.Sa PO 150 mg BID CHIDI Administration Calamine/Phenol 1 applic 11/02/22 18:00 11/03/22 05:10 Menthol/Lanolin/Calamine/Znox 113 Gm Tube TOPICAL 1 applic BID [facility] Administration Protocol Calcium/Vitamin D 1 tablet 11/02/22 17:00 11/03/22 08:30 Calcium Carb/Vitamin D 1 Tablet Tablet PO 1 tablet BIDCM [facility] Administration Carvedilol 3.125 mg 11/02/22 17:00 11/03/22 08:30 Carvedilol 3.125 Mg Tablet PO 3.125 mg BIDCM [facility] Administration Cholecalciferol 25 mcg 11/03/22 08:00 11/03/22 08:31 Cholecalciferol (Vit D3) 25 Mcg Tablet (1,000 Units) PO 25 mcg DAILYCM [facility] Administration Gabapentin 300 mg 11/02/22 14:02 11/03/22 09:19 Gabapentin 300 Mg Capsule PO 300 mg TID PRN Administration Pain 1-10 Sodium Chloride 250 mls @ 15 mls/hr 11/02/22 23:27 IV .[id number] PRN Saline Flush Sodium Chloride 250 mls @ 15 mls/hr 11/02/22 23:27 IV .[id number] PRN Additional IVPB Infusion Ibuprofen 600 mg 11/02/22 22:00 11/03/22 05:08 Ibuprofen 600 Mg Tablet PO 600 mg Q8 [facility]I Administration Lisinopril 2.5 mg 11/03/22 06:00 11/03/22 05:09 Lisinopril 2.5 Mg Tablet PO 2.5 mg DAILY [facility] Administration Magnesium Hydroxide 30 ml 11/02/22 19:55 Magnesium Hydroxide 30 Ml Udc PO X1 PRN Constipation Nystatin 1 applic 11/02/22 18:00 11/03/22 05:10 Nystatin Powder 15gm Bottle TOPICAL 1 applic BID [facility] Administration Protocol Oxycodone HCl 5 mg 11/02/22 14:02 11/03/22 09:18 Oxycodone 5 Mg Tablet PO 5 mg Q4H PRN PRN Administration Pain Score 4-10 Pantoprazole Sodium 40 mg 11/02/22 18:00 11/03/22 05:08 Pantoprazole Sodium 40 Mg Tablet PO 40 mg BID [facility] Administration Paroxetine HCl 30 mg 11/03/22 06:00 11/03/22 05:09 Paroxetine 10 Mg Tablet PO 30 mg DAILY [facility] Administration Polysaccharide Iron Complex 150 mg 11/03/22 06:00 11/03/22 05:10 Iron Polysaccharide Complex 150 Mg Capsule PO Not Given DAILY [facility] Senna/Docusate Sodium 2 tablet 11/02/22 20:00 11/03/22 05:09 Senna/Docusate Sodium 1 Tablet PO Not Given BID [facility] Sodium Chloride 10 - 40 ml 11/02/22 23:27 0.9% Saline Lock 10 Ml Syringe IV UD PRN SALINE FLUSH Tizanidine HCl 4 mg 11/02/22 22:00 11/03/22 05:08 Tizanidine Hcl 2 Mg Tablet PO 4 mg TID [facility] Administration Tuberculin PPD 0.1 ml 11/10/22 10:00 Tuberculin,Purif.Prot.Deriv. 50 Tu/Ml Vial ID 11/10/22 10:01 X1 ONE Problem List (Last Reviewed 11/02/22 @ 19:[address] Kishan Espinal MD) Osteoporosis (Acute) Neuropathic pain (Acute) Hypokalemia (Acute) Iron deficiency anemia (Acute) Depression (Acute) Chronic systolic (congestive) heart failure (Chronic) GERD (gastroesophageal reflux disease) (Acute) Fracture of left inferior pubic ramus (Acute) Multiple rib fractures (Acute) Fall (Acute) Debility (Acute) Fracture of right tibial plateau (Acute) Vital Signs Temp Pulse Resp BP Pulse Ox O2 Del Method 96.9 F L 86 16 116/46 L 94 Room Air 11/02/22 13:51 11/02/22 13:51 11/02/22 13:51 11/02/22 13:51 11/02/22 13:51 11/02/22 13:51 Oxygen Delivery Method Room Air Weight: 86.296 kg Body Mass Index (BMI) 38.4 Sodium 140 mmol/L (136-145) 11/03/22 05:11 Potassium 3.8 mmol/L (3.5-5.1) 11/03/22 05:11 Chloride 105 mmol/L (98-107) 11/03/22 05:11 Carbon Dioxide 33.0 mmol/L (21.0-32.0) H 11/03/22 05:11 Anion Gap 2 (5-15) L 11/03/22 05:11 BUN 34 mg/dL (7-18) H 11/03/22 05:11 Creatinine 0.71 mg/dL (0.55-1.02) 11/03/22 05:11 Est GFR (MDRD) Af Amer 103 mL/min (>60) 11/03/22 05:11 Est GFR (MDRD) Non-Af 85 mL/min (>60) 11/03/22 05:11 BUN/Creatinine Ratio 47.9 RATIO (10-20) H 11/03/22 05:11 Glucose 84 mg/dL (74-106) 11/03/22 05:11 Assessment/Plan: 1. Pain: acetaminophen 1000mg PO Q6H PRN pain 1-3, oxycodone 5mg PO Q4H PRN pain 4-10 and ibuprofen 600mg PO Q8. Resident has had 4 doses of oxycodone (pain 8-9 in various locations) and one doses of acetaminophen for pain of 8 in the hip. 2. Bowel: senna/docusate 2T PO BID and MOM 30mL PO x1 PRN constipation. No doses of MOM so far. Please continue to monitor for constipation and PRN usage. No documented bowel movements so far. 3. CHF: carvedilol 3.125mg PO BID and lisinopril 2.5 mg PO daily. Please continue to monitor BP (last 116/46), HR (last 86), weight gain, renal function, potassium (last 3.8mmol/L) and cough. 4. Iron deficiency anemia: Ferrex 150mg PO daily. Please continue to monitor hemoglobin (last 10.9g/dL), dark stools and constipation. 5. GERD: pantoprazole 40mg PO BID. Please continue to monitor for S/S of GERD and diarrhea (BEERs medication). 6. Muscle spasm: tizanidine 4mg PO TID. Please continue to monitor BP and dry mouth. 7. Calcium/vitamin D deficiencies: calcium/vitamin D 1T PO BIDCM and cholecalciferol 25mcg PO daily. Please consider ordering a vitamin D level if clinically appropriate. Last vitamin D level from 12/2018. Thanks. Please continue to monitor calcium levels (last 9mg/dL 11/03/22). Assessment/Plan for indications treated with psychotropic medications: 1. Depression: bupropion SR 150mg PO BID and paroxetine 30mg PO daily. Please see physician note regarding GDR. Please continue to monitor for suicidal ideation (black box warning), BP (last 116/46), falls/fractures (BEERs criteria, admitted for a fall), delirium/dementia (BEERs criteria) and sodium (last 140mmol/L). 2. Neuropathic pain: gabapentin 300mg PO TID PRN pain 1-10 (may be used in addition to acetaminophen and oxycodone). Resident has had 1 dose so far. Please continue to monitor for confusion, falls/fractures (BEERs criteria). GDR not appropriate as this medication is for neuropathy. Medical chart and medication regimen reviewed. The following medication irregularities or issues were identified: 1. Calcium/vitamin D 1T PO BIDCM and cholecalciferol 25mcg PO daily. Please consider ordering a vitamin D level if clinically appropriate. Last vitamin D level from 12/2018. Thanks. Date of Note:: 11/03/22
[2022-11-03 13:36] VITALS: BP 111/59; PULSE 80; RESP 18; TEMP 36; O2SAT 90
--- NOTE | 2022-11-03 13:48 | NURSING ---
Barrel Roller Operator note; Activity Asset: Valentin Boateng is independent in her choice of daily activities. She watches tv, reads, will work on word puzzles and visits w/family and friends. She welcomes visit from the C++ Professor and therapy dog. She is not interested in group activities at this time, will continue to do social visit and encourage small group activities for social well-being.
[2022-11-03] MEDS: Tuberculin,Purif.prot.deriv. 50 TU/ML Vial 0.1 ML ID (14:02)
[2022-11-03] MEDS: Senna/Docusate Sodium 1 Tablet 2 TABLET PO (17:26)
[2022-11-03] MEDS: 0.9% Saline Lock 10 ML Syringe IV (17:27)
[2022-11-04] MEDS: oxyCODONE 5 MG Tablet PO ×3 (03:24→21:10)
[2022-11-04] MEDS: Acetaminophen 500 MG Tablet 1000 MG PO ×2 (03:24→12:11)
[2022-11-04] MEDS: PARoxetine 10 MG Tablet 30 MG PO (05:33)
[2022-11-04] MEDS: tiZANidine HCl 2 MG Tablet 4 MG PO ×3 (05:33→21:10)
[2022-11-04] MEDS: buPROPion (SR) 150 MG Tablet.SA PO ×2 (05:33→18:07)
[2022-11-04] MEDS: Pantoprazole Sodium 40 MG Tablet PO ×2 (05:33→18:07)
[2022-11-04] MEDS: Ibuprofen 600 MG Tablet PO ×3 (05:33→21:10)
[2022-11-04] MEDS: Menthol/Lanolin/Calamine/Znox 113 GM Tube 1 APPLIC TOPICAL ×2 (05:34→18:10)
[2022-11-04] MEDS: Nystatin Powder 15gm Bottle 1 APPLIC TOPICAL ×2 (05:34→18:09)
[2022-11-04] MEDS: Lisinopril 2.5 MG Tablet PO (05:35)
[2022-11-04] MEDS: Calcium Carb/Vitamin D 1 TABLET Tablet PO ×2 (08:32→18:07)
[2022-11-04] MEDS: Cholecalciferol (VIT D3) 25 MCG TABLET (1,000 UNITS) PO (08:32)
[2022-11-04] MEDS: Carvedilol 3.125 MG TABLET PO ×2 (08:32→18:07)
[2022-11-04 14:06] VITALS: BP 110/40; PULSE 90; RESP 16; TEMP 36.2; O2SAT 92
[2022-11-04] MEDS: Rivaroxaban 10 MG Tablet PO (18:07)
[2022-11-04 21:15] VITALS: PULSE 82; RESP 16; O2SAT 92
[2022-11-05] MEDS: oxyCODONE 5 MG Tablet PO ×2 (01:00→03:45)
[2022-11-05] MEDS: Menthol/Lanolin/Calamine/Znox 113 GM Tube 1 APPLIC TOPICAL ×2 (05:56→18:08)
[2022-11-05] MEDS: Ibuprofen 600 MG Tablet PO ×3 (05:57→21:52)
[2022-11-05] MEDS: Nystatin Powder 15gm Bottle 1 APPLIC TOPICAL ×2 (05:57→18:07)
[2022-11-05] MEDS: Senna/Docusate Sodium 1 Tablet 2 TABLET PO ×2 (05:58→18:07)
[2022-11-05] MEDS: Pantoprazole Sodium 40 MG Tablet PO ×2 (05:58→18:07)
[2022-11-05] MEDS: buPROPion (SR) 150 MG Tablet.SA PO ×2 (05:58→18:07)
[2022-11-05] MEDS: Lisinopril 2.5 MG Tablet PO (05:58)
[2022-11-05] MEDS: tiZANidine HCl 2 MG Tablet 4 MG PO ×3 (05:59→21:53)
[2022-11-05] MEDS: PARoxetine 10 MG Tablet 30 MG PO (05:59)
[2022-11-05 06:46] VITALS: BP 121/44; PULSE 83
[2022-11-05] MEDS: Calcium Carb/Vitamin D 1 TABLET Tablet PO ×2 (08:21→18:07)
[2022-11-05] MEDS: Cholecalciferol (VIT D3) 25 MCG TABLET (1,000 UNITS) PO (08:21)
[2022-11-05] MEDS: Carvedilol 3.125 MG TABLET PO (08:21)
[2022-11-05] MEDS: Gabapentin 300 MG Capsule PO (08:26)
[2022-11-05 11:05] VITALS: PULSE 83; RESP 18; O2SAT 93
[2022-11-05] MEDS: Acetaminophen 500 MG Tablet 1000 MG PO (13:02)
[2022-11-05 15:49] VITALS: BP 92/42; PULSE 83; RESP 15; TEMP 36.2; O2SAT 93
[2022-11-05] MEDS: Rivaroxaban 10 MG Tablet PO (18:07)
[2022-11-05] MEDS: LORazepam 0.5 MG Tablet PO (21:48)
[2022-11-06] MEDS: oxyCODONE 5 MG Tablet PO ×4 (01:21→21:50)
[2022-11-06] MEDS: Nystatin Powder 15gm Bottle 1 APPLIC TOPICAL ×2 (05:13→17:31)
[2022-11-06] MEDS: Menthol/Lanolin/Calamine/Znox 113 GM Tube 1 APPLIC TOPICAL ×2 (05:14→17:31)
[2022-11-06] MEDS: Senna/Docusate Sodium 1 Tablet 2 TABLET PO ×2 (05:14→17:25)
[2022-11-06] MEDS: tiZANidine HCl 2 MG Tablet 4 MG PO ×3 (05:15→20:14)
[2022-11-06] MEDS: PARoxetine 10 MG Tablet 30 MG PO (05:15)
[2022-11-06] MEDS: Pantoprazole Sodium 40 MG Tablet PO ×2 (05:15→17:26)
[2022-11-06] MEDS: Lisinopril 2.5 MG Tablet PO (05:15)
[2022-11-06] MEDS: buPROPion (SR) 150 MG Tablet.SA PO ×2 (05:15→17:26)
[2022-11-06] MEDS: Ibuprofen 600 MG Tablet PO ×3 (05:15→20:15)
[2022-11-06] MEDS: Calcium Carb/Vitamin D 1 TABLET Tablet PO ×2 (08:14→17:24)
[2022-11-06] MEDS: Cholecalciferol (VIT D3) 25 MCG TABLET (1,000 UNITS) PO (08:14)
[2022-11-06] MEDS: Carvedilol 3.125 MG TABLET PO (08:14)
[2022-11-06] MEDS: LORazepam 0.5 MG Tablet PO ×2 (08:17→20:13)
[2022-11-06 15:59] VITALS: PULSE 80; RESP 20; TEMP 36.1; O2SAT 95
[2022-11-06] MEDS: Rivaroxaban 10 MG Tablet PO (17:25)
[2022-11-06 17:35] VITALS: BP 112/46
[2022-11-06 20:21] VITALS: O2SAT 92
[2022-11-07] MEDS: oxyCODONE 5 MG Tablet PO ×3 (03:54→19:51)
[2022-11-07] MEDS: Lisinopril 2.5 MG Tablet PO (03:55)
[2022-11-07] MEDS: buPROPion (SR) 150 MG Tablet.SA PO ×2 (03:55→16:56)
[2022-11-07] MEDS: LORazepam 0.5 MG Tablet PO ×2 (03:57→19:50)
[2022-11-07] MEDS: Pantoprazole Sodium 40 MG Tablet PO ×2 (03:58→16:58)
[2022-11-07] MEDS: Senna/Docusate Sodium 1 Tablet 2 TABLET PO ×2 (03:58→16:56)
[2022-11-07] MEDS: tiZANidine HCl 2 MG Tablet 4 MG PO ×3 (03:58→19:50)
[2022-11-07] MEDS: PARoxetine 10 MG Tablet 30 MG PO (03:59)
[2022-11-07] MEDS: Ibuprofen 600 MG Tablet PO ×3 (03:59→19:50)
[2022-11-07] MEDS: Nystatin Powder 15gm Bottle 1 APPLIC TOPICAL ×2 (04:01→17:00)
[2022-11-07] MEDS: Menthol/Lanolin/Calamine/Znox 113 GM Tube 1 APPLIC TOPICAL ×2 (04:02→17:00)
[2022-11-07] MEDS: Cholecalciferol (VIT D3) 25 MCG TABLET (1,000 UNITS) PO (07:32)
[2022-11-07] MEDS: Calcium Carb/Vitamin D 1 TABLET Tablet PO ×2 (07:32→16:55)
[2022-11-07 07:33] VITALS: BP 105/40; PULSE 77
[2022-11-07 07:53] VITALS: O2SAT 91
[2022-11-07 15:09] VITALS: PULSE 80; RESP 16; TEMP 36.2
[2022-11-07] MEDS: Rivaroxaban 10 MG Tablet PO (16:58)
[2022-11-07 17:02] VITALS: BP 105/43; PULSE 78
[2022-11-07] MEDS: Gabapentin 300 MG Capsule PO (19:50)
[2022-11-08] MEDS: LORazepam 0.5 MG Tablet PO ×3 (02:31→19:33)
[2022-11-08] MEDS: Menthol/Lanolin/Calamine/Znox 113 GM Tube 1 APPLIC TOPICAL ×2 (05:38→18:23)
[2022-11-08] MEDS: Nystatin Powder 15gm Bottle 1 APPLIC TOPICAL ×2 (05:39→19:28)
[2022-11-08] MEDS: tiZANidine HCl 2 MG Tablet 4 MG PO ×3 (05:39→19:53)
[2022-11-08] MEDS: PARoxetine 10 MG Tablet 30 MG PO (05:39)
[2022-11-08] MEDS: Ibuprofen 600 MG Tablet PO ×3 (05:39→19:53)
[2022-11-08] MEDS: buPROPion (SR) 150 MG Tablet.SA PO ×2 (05:39→17:57)
[2022-11-08] MEDS: Lisinopril 2.5 MG Tablet PO (05:39)
[2022-11-08] MEDS: Pantoprazole Sodium 40 MG Tablet PO ×2 (05:40→17:57)
[2022-11-08 05:42] VITALS: BP 125/49; PULSE 78
[2022-11-08] MEDS: Calcium Carb/Vitamin D 1 TABLET Tablet PO ×2 (08:46→17:58)
[2022-11-08] MEDS: Cholecalciferol (VIT D3) 25 MCG TABLET (1,000 UNITS) PO (08:50)
[2022-11-08 09:00] VITALS: BP 98/52; PULSE 80; RESP 16; O2SAT 96
--- NOTE | 2022-11-08 09:09 | NURSING ---
PT VERY UPSET THIS MORNING. PT STATED IS DYING. DID 1 ON 1 WITH PT AND ASKED IF SHE NEEDED ANY THING OR ANY ONE CALLED OR CHRISTY. PT STATED NO MY SISTER IS COMING IN. PRN ATIVAN GIVEN PER PT REQUEST. WILL CONTINUE TO MONITOR.
[2022-11-08] MEDS: oxyCODONE 5 MG Tablet PO ×2 (11:25→19:21)
[2022-11-08 13:54] VITALS: BP 79/40; PULSE 106; RESP 16; TEMP 36.7; O2SAT 94
[2022-11-08 15:50] VITALS: BP 88/50; PULSE 110
--- NOTE | 2022-11-08 16:09 | NURSING ---
PT BP HAS BEEN DROPPING. THIS MORNING WAS 98/52,HR 80 APICAL. COREG HELD,ENCOURAGED PT TO DRINK MORE WATER,URINE TRAN/CLEAR. AT 1600 88/50 MAN,HR 110 APICAL,URINE STRAW/CLEAR. PT ALERT AND ORIENTED X3. NO COMPLAINTS FROM PT AT THIS TIME. RN AND NOTIFIED.
[2022-11-08] MEDS: Rivaroxaban 10 MG Tablet PO (17:58)
[2022-11-08] MEDS: 0.9% Saline Lock 10 ML Syringe IV (18:43)
[2022-11-08] MEDS: 0.9% Normal Saline 1,000 ML 999 ML IV (18:45)
[2022-11-08 19:45] VITALS: O2SAT 95
[2022-11-09] MEDS: oxyCODONE 5 MG Tablet PO ×2 (04:33→21:18)
[2022-11-09] MEDS: LORazepam 0.5 MG Tablet PO ×2 (04:33→21:17)
[2022-11-09] MEDS: Senna/Docusate Sodium 1 Tablet 2 TABLET PO ×2 (04:34→17:49)
[2022-11-09] MEDS: tiZANidine HCl 2 MG Tablet 4 MG PO ×3 (04:34→21:18)
[2022-11-09] MEDS: Ibuprofen 600 MG Tablet PO ×3 (04:35→21:18)
[2022-11-09] MEDS: Pantoprazole Sodium 40 MG Tablet PO ×2 (04:35→17:49)
[2022-11-09] MEDS: PARoxetine 10 MG Tablet 30 MG PO (04:36)
[2022-11-09] MEDS: Menthol/Lanolin/Calamine/Znox 113 GM Tube 1 APPLIC TOPICAL (04:36)
[2022-11-09] MEDS: buPROPion (SR) 150 MG Tablet.SA PO ×2 (04:36→17:49)
[2022-11-09] MEDS: Nystatin Powder 15gm Bottle 1 APPLIC TOPICAL (04:37)
[2022-11-09 08:05] VITALS: BP 115/38; PULSE 83
[2022-11-09] MEDS: Cholecalciferol (VIT D3) 25 MCG TABLET (1,000 UNITS) PO (08:06)
[2022-11-09] MEDS: Gabapentin 300 MG Capsule PO ×2 (08:06→21:17)
[2022-11-09] MEDS: Carvedilol 3.125 MG TABLET PO ×2 (08:06→17:49)
[2022-11-09] MEDS: Calcium Carb/Vitamin D 1 TABLET Tablet PO ×2 (08:06→17:49)
[2022-11-09] MEDS: 0.9% Saline Lock 10 ML Syringe IV (10:47)
[2022-11-09 10:51] VITALS: BMI 37.7
[2022-11-09] MEDS: Acetaminophen 500 MG Tablet 1000 MG PO (10:52)
[2022-11-09 11:34] VITALS: PULSE 86; RESP 16; O2SAT 93
[2022-11-09 14:11] VITALS: BP 117/55; PULSE 78; RESP 20; TEMP 36.3; O2SAT 96
--- NOTE | 2022-11-09 16:10 | CASEMGMT ---
Social Work BIMS () and PHQ-9 (05/06) completed for MDS assessment. SW explored positive responses. Pt explains is currently in hospice and not expected to live much longer. SW provided emotional support. Pt's injuries/reason for admission are impacting her mood. Pt is enjoying visits from family and support. SW offered ongoing supportive visits, as needed. Will continue to monitor depressive symptoms. Pt requesting resources for medical alert; SW provided. Najma Strickland, DRIVER RETRAINING INSTRUCTOR CARD CLOTHIER
[2022-11-09] MEDS: Rivaroxaban 10 MG Tablet PO (17:49)
[2022-11-10] MEDS: LORazepam 0.5 MG Tablet PO ×2 (05:34→21:51)
[2022-11-10] MEDS: tiZANidine HCl 2 MG Tablet 4 MG PO ×3 (05:35→21:50)
[2022-11-10] MEDS: Senna/Docusate Sodium 1 Tablet 2 TABLET PO ×2 (05:35→17:53)
[2022-11-10] MEDS: buPROPion (SR) 150 MG Tablet.SA PO ×2 (05:35→17:53)
[2022-11-10] MEDS: PARoxetine 10 MG Tablet 30 MG PO (05:35)
[2022-11-10] MEDS: Pantoprazole Sodium 40 MG Tablet PO ×2 (05:35→17:53)
[2022-11-10] MEDS: Menthol/Lanolin/Calamine/Znox 113 GM Tube 1 APPLIC TOPICAL ×2 (05:36→17:53)
[2022-11-10] MEDS: Ibuprofen 600 MG Tablet PO ×3 (05:36→21:51)
[2022-11-10] MEDS: Nystatin Powder 15gm Bottle 1 APPLIC TOPICAL ×2 (05:36→17:53)
[2022-11-10 06:03] LABS: Absolute Lymphocyte Count 2.19 X10^3/uL (0.83-4.51); Absolute Neutrophil Count 5.1 X10^3/uL (2.0-7.7); Basophil# 0.06 X10^3/uL; Basophil% 0.7 % (0-1); Eosinophil# 0.13 X10^3/uL; Eosinophils% 1.6 % (0-5); Hematocrit 34.5 % (37-47); Hemoglobin 10.7 g/dL (12.0-15.0); Lymphocyte # 2.19 X10^3/ul (0.83-4.51); Mean Corpuscular Hgb 27.8 pg (27.0-32.0); Mean Corpuscular Volume 89.6 fL (81-99); Mean Platelet Vol. 9.6 fl (6.2-12.0); Monocyte# 0.57 X10^3/uL; NRBC Flagged by Analyzer 0 % (0-5); Neutrophil % 62.8 % (47-70); Platelet Count 375 K/mm3 (150-450); RBC Distribution Width CV 15.3 % (11.6-14.6); RBC Distribution Width SD 49.1 fl (35.1-43.9); Red Blood Count 3.85 M/mm3 (4.2-5.4); White Blood Count 8.1 K/mm3 (4.4-11.0)
[2022-11-10 06:59] LABS: Anion Gap 6 (5-15); BUN 30 mg/dL (7-18); BUN/Creat Ratio 37.7 RATIO (10-20); Calcium,Total 9.3 mg/dL (8.5-10.1); Chloride 109 mmol/L (98-107); EST Glomerular Filtration Rate 75 mL/min (>60); Est Glom Filt Rate - Afr Amer 91 mL/min (>60); Estimated Creatinine Clearance 82.48 ml/min; Glucose 87 mg/dL (74-106); Potassium 4.4 mmol/L (3.5-5.1); Sodium Level 142 mmol/L (136-145)
[2022-11-10] MEDS: Cholecalciferol (VIT D3) 25 MCG TABLET (1,000 UNITS) PO (07:59)
[2022-11-10] MEDS: Calcium Carb/Vitamin D 1 TABLET Tablet PO ×2 (07:59→17:53)
[2022-11-10] MEDS: Carvedilol 3.125 MG TABLET PO (08:00)
[2022-11-10 08:01] VITALS: BP 132/49; PULSE 71
[2022-11-10] MEDS: Gabapentin 300 MG Capsule PO (08:06)
--- NOTE | 2022-11-10 09:56 | CASEMGMT ---
Social Work IDT met with patient and nephew for care plan meeting. Discussed patient's progress in PT/OT/SN. Educated to Medicare benefit. Encouraged to contact secondary insurance to ensure copay coverage. Pt's goal is to return home and needs to be closer to PLOF. Pt doesn't have assistance for physical support at home, if needed. SW to continue to follow for DC planning and support. Najma Strickland, BUTCH AKINSW
[2022-11-10] MEDS: Tuberculin,Purif.prot.deriv. 50 TU/ML Vial 0.1 ML ID (11:52)
[2022-11-10] MEDS: Acetaminophen 500 MG Tablet 1000 MG PO (12:03)
[2022-11-10] MEDS: 0.9% Saline Lock 10 ML Syringe IV (12:08)
--- NOTE | 2022-11-10 14:04 | NURSING ---
Pt BP 80/32 manual, heart rate 88. Pt alert/talking, asymptomatic but states she feels tired from therapy. Dr. Espinal paged- ordered IV NS 500cc bolus and recheck bp. Order read back, Charge nurse aware and put in order.
[2022-11-10 14:12] VITALS: BP 80/37; PULSE 88
[2022-11-10 14:52] VITALS: PULSE 88; RESP 16; TEMP 36.4; O2SAT 96
--- NOTE | 2022-11-10 16:17 | NURSING ---
This nurse observed IV in RFA had infiltrated, fluids stopped and IV d/c. Staff attempted to reinsert IV and was unsuccessful. Bp recheck- 90/37, asymptomatic Pt does not want to try an IV again at this time. Nurse encouraged pt to push fluids
[2022-11-10] MEDS: Rivaroxaban 10 MG Tablet PO (17:53)
[2022-11-10 18:54] VITALS: BP 119/42; PULSE 87
[2022-11-10] MEDS: oxyCODONE 5 MG Tablet PO (21:52)
[2022-11-11] MEDS: LORazepam 0.5 MG Tablet PO ×2 (05:21→19:57)
[2022-11-11] MEDS: oxyCODONE 5 MG Tablet PO ×2 (05:21→19:58)
[2022-11-11] MEDS: Ibuprofen 600 MG Tablet PO ×3 (05:22→19:58)
[2022-11-11] MEDS: buPROPion (SR) 150 MG Tablet.SA PO ×2 (05:22→17:50)
[2022-11-11] MEDS: Senna/Docusate Sodium 1 Tablet 2 TABLET PO (05:22)
[2022-11-11] MEDS: PARoxetine 10 MG Tablet 30 MG PO (05:23)
[2022-11-11] MEDS: Pantoprazole Sodium 40 MG Tablet PO ×2 (05:23→17:52)
[2022-11-11] MEDS: tiZANidine HCl 2 MG Tablet 4 MG PO ×3 (05:24→19:59)
[2022-11-11] MEDS: Nystatin Powder 15gm Bottle 1 APPLIC TOPICAL ×2 (05:25→19:59)
[2022-11-11] MEDS: Menthol/Lanolin/Calamine/Znox 113 GM Tube 1 APPLIC TOPICAL ×2 (05:26→17:48)
[2022-11-11 06:54] VITALS: O2SAT 93
[2022-11-11] MEDS: Carvedilol 3.125 MG TABLET PO ×2 (08:03→17:49)
[2022-11-11] MEDS: Cholecalciferol (VIT D3) 25 MCG TABLET (1,000 UNITS) PO (08:03)
[2022-11-11] MEDS: Calcium Carb/Vitamin D 1 TABLET Tablet PO ×2 (08:03→17:50)
[2022-11-11 08:25] VITALS: BP 130/72; PULSE 77
[2022-11-11 11:20] VITALS: PULSE 84; RESP 18; O2SAT 93
[2022-11-11 15:09] VITALS: BP 107/48; PULSE 81; RESP 18; TEMP 36.3; O2SAT 94
[2022-11-11] MEDS: Rivaroxaban 10 MG Tablet PO (17:52)
--- NOTE | 2022-11-11 23:28 | NURSING ---
Pt's this evening and family came in to visit pt around 2100. PRN dose of Ativan given around 1999. Pt noted to be still awake and very tearful at this time. Dr. Espinal notified and new orders entered for 1x dose of 1 mg Ativan now and PRN Ativan dose increased to 1 mg q 4 hrs as needed. RN aware.
[2022-11-11] MEDS: LORazepam 1 MG Tablet PO (23:52)
[2022-11-12] MEDS: tiZANidine HCl 2 MG Tablet 4 MG PO ×3 (05:25→21:36)
[2022-11-12] MEDS: LORazepam 0.5 MG Tablet 1 MG PO ×2 (05:36→18:20)
[2022-11-12] MEDS: PARoxetine 10 MG Tablet 30 MG PO (05:37)
[2022-11-12] MEDS: Pantoprazole Sodium 40 MG Tablet PO ×2 (05:37→18:07)
[2022-11-12] MEDS: buPROPion (SR) 150 MG Tablet.SA PO ×2 (05:37→18:08)
[2022-11-12] MEDS: Ibuprofen 600 MG Tablet PO ×3 (05:37→21:36)
[2022-11-12] MEDS: Senna/Docusate Sodium 1 Tablet 2 TABLET PO ×2 (05:38→18:08)
[2022-11-12] MEDS: Menthol/Lanolin/Calamine/Znox 113 GM Tube 1 APPLIC TOPICAL ×2 (05:41→18:23)
[2022-11-12] MEDS: Nystatin Powder 15gm Bottle 1 APPLIC TOPICAL (05:41)
[2022-11-12] MEDS: Cholecalciferol (VIT D3) 25 MCG TABLET (1,000 UNITS) PO (09:02)
[2022-11-12] MEDS: Calcium Carb/Vitamin D 1 TABLET Tablet PO ×2 (09:02→18:09)
[2022-11-12] MEDS: oxyCODONE 5 MG Tablet PO (09:09)
[2022-11-12] MEDS: Carvedilol 3.125 MG TABLET PO ×2 (09:13→18:09)
[2022-11-12 09:15] VITALS: BP 100/56; PULSE 75
[2022-11-12 14:01] VITALS: BP 105/39; PULSE 81; RESP 14; TEMP 37; O2SAT 95
--- NOTE | 2022-11-12 16:41 | NURSING ---
FAMILY AND ELL TEACHER IN ROOM TO GO OVER ARRANGEMENTS FOR PT THAT PASSED.
[2022-11-12 18:04] VITALS: BP 128/64; PULSE 81
[2022-11-12] MEDS: Rivaroxaban 10 MG Tablet PO (18:08)
[2022-11-12 21:45] VITALS: PULSE 100; RESP 16; O2SAT 94
[2022-11-13] MEDS: Menthol/Lanolin/Calamine/Znox 113 GM Tube 1 APPLIC TOPICAL ×2 (06:24→17:21)
[2022-11-13] MEDS: Nystatin Powder 15gm Bottle 1 APPLIC TOPICAL ×2 (06:24→17:21)
[2022-11-13] MEDS: LORazepam 0.5 MG Tablet 1 MG PO ×3 (06:27→21:40)
[2022-11-13] MEDS: PARoxetine 10 MG Tablet 30 MG PO (06:28)
[2022-11-13] MEDS: Pantoprazole Sodium 40 MG Tablet PO ×2 (06:28→17:20)
[2022-11-13] MEDS: Ibuprofen 600 MG Tablet PO ×3 (06:28→21:13)
[2022-11-13] MEDS: tiZANidine HCl 2 MG Tablet 4 MG PO ×3 (06:28→21:13)
[2022-11-13] MEDS: Senna/Docusate Sodium 1 Tablet 2 TABLET PO (06:28)
[2022-11-13] MEDS: buPROPion (SR) 150 MG Tablet.SA PO ×2 (06:29→17:20)
[2022-11-13 06:50] VITALS: O2SAT 93
[2022-11-13 07:21] VITALS: BP 123/46; PULSE 73
[2022-11-13 08:00] VITALS: BP 101/42
[2022-11-13] MEDS: Calcium Carb/Vitamin D 1 TABLET Tablet PO ×2 (08:24→17:19)
[2022-11-13] MEDS: Cholecalciferol (VIT D3) 25 MCG TABLET (1,000 UNITS) PO (08:24)
[2022-11-13 15:08] VITALS: BP 115/57; PULSE 89; RESP 18; TEMP 36.4; O2SAT 94
[2022-11-13] MEDS: Rivaroxaban 10 MG Tablet PO (17:19)
[2022-11-13 17:22] VITALS: BP 110/42; PULSE 91
[2022-11-13] MEDS: oxyCODONE 5 MG Tablet PO (19:32)
[2022-11-14] MEDS: Nystatin Powder 15gm Bottle 1 APPLIC TOPICAL ×2 (05:56→17:23)
[2022-11-14] MEDS: Menthol/Lanolin/Calamine/Znox 113 GM Tube 1 APPLIC TOPICAL ×2 (05:56→17:23)
[2022-11-14] MEDS: Pantoprazole Sodium 40 MG Tablet PO ×2 (05:57→17:24)
[2022-11-14] MEDS: Ibuprofen 600 MG Tablet PO ×3 (05:57→21:05)
[2022-11-14] MEDS: buPROPion (SR) 150 MG Tablet.SA PO ×2 (05:57→17:25)
[2022-11-14] MEDS: PARoxetine 10 MG Tablet 30 MG PO (05:57)
[2022-11-14] MEDS: tiZANidine HCl 2 MG Tablet 4 MG PO ×3 (05:57→21:05)
[2022-11-14 06:58] VITALS: BP 124/54; PULSE 76
[2022-11-14] MEDS: LORazepam 0.5 MG Tablet 1 MG PO ×3 (08:22→21:05)
[2022-11-14] MEDS: Cholecalciferol (VIT D3) 25 MCG TABLET (1,000 UNITS) PO (08:23)
[2022-11-14] MEDS: Calcium Carb/Vitamin D 1 TABLET Tablet PO ×2 (08:23→17:23)
[2022-11-14] MEDS: Carvedilol 3.125 MG TABLET PO ×2 (08:23→17:23)
[2022-11-14 10:00] VITALS: RESP 14
[2022-11-14 13:38] VITALS: BP 113/49; PULSE 88; RESP 12; TEMP 36.4; O2SAT 94
[2022-11-14] MEDS: Rivaroxaban 10 MG Tablet PO (17:23)
[2022-11-14] MEDS: Senna/Docusate Sodium 1 Tablet 2 TABLET PO (17:24)
[2022-11-15] MEDS: Nystatin Powder 15gm Bottle 1 APPLIC TOPICAL ×2 (05:49→18:06)
[2022-11-15] MEDS: Menthol/Lanolin/Calamine/Znox 113 GM Tube 1 APPLIC TOPICAL ×2 (05:49→18:06)
[2022-11-15] MEDS: Ibuprofen 600 MG Tablet PO ×3 (05:49→20:59)
[2022-11-15] MEDS: PARoxetine 10 MG Tablet 30 MG PO (05:50)
[2022-11-15] MEDS: tiZANidine HCl 2 MG Tablet 4 MG PO ×3 (05:50→20:59)
[2022-11-15] MEDS: buPROPion (SR) 150 MG Tablet.SA PO ×2 (05:50→18:08)
[2022-11-15] MEDS: Pantoprazole Sodium 40 MG Tablet PO ×2 (05:50→18:08)
[2022-11-15 06:00] VITALS: BP 115/41; PULSE 76
[2022-11-15 07:05] VITALS: O2SAT 94
[2022-11-15] MEDS: Cholecalciferol (VIT D3) 25 MCG TABLET (1,000 UNITS) PO (08:14)
[2022-11-15] MEDS: Calcium Carb/Vitamin D 1 TABLET Tablet PO ×2 (08:14→18:07)
[2022-11-15] MEDS: Carvedilol 3.125 MG TABLET PO ×2 (08:20→18:07)
[2022-11-15 08:22] VITALS: BP 132/58; PULSE 80
[2022-11-15 11:15] VITALS: PULSE 82; RESP 18; O2SAT 93
[2022-11-15] MEDS: LORazepam 0.5 MG Tablet 1 MG PO ×2 (11:18→20:58)
--- NOTE | 2022-11-15 11:21 | NURSING ---
PT VERY TEARFUL TODAY,STATING SHE WANTED TO GO HOME. DID A LITTLE ONE ON ONE WITH PT AND PRN ATIVAN GIVEN. ASKED PT IF THERE WAS ANY THING I COULD DO OR CALL ANY ONE,PT STATED NO. WILL CONTINUE TO MONITOR.
--- NOTE | 2022-11-15 11:59 | MDS.RN ---
Information for the mds was obtained from review of the clinical record, interview of resident, staff, and direct observation of resident's care.
[2022-11-15 13:16] VITALS: BP 116/68
[2022-11-15 14:24] VITALS: PULSE 85; RESP 18; TEMP 36.2; O2SAT 96
--- NOTE | 2022-11-15 14:42 | NURSING ---
FOUND ABRASIONS TO PT MID STOMACH,ASKED PT WHAT HAPPENED PT STATED SHE WAS SCRATCHING.
[2022-11-15] MEDS: Rivaroxaban 10 MG Tablet PO (18:07)
[2022-11-15] MEDS: oxyCODONE 5 MG Tablet PO (18:10)
[2022-11-16] MEDS: tiZANidine HCl 2 MG Tablet 4 MG PO ×3 (05:27→21:01)
[2022-11-16] MEDS: Pantoprazole Sodium 40 MG Tablet PO ×2 (05:28→17:47)
[2022-11-16] MEDS: Ibuprofen 600 MG Tablet PO ×3 (05:28→21:00)
[2022-11-16] MEDS: PARoxetine 10 MG Tablet 30 MG PO (05:28)
[2022-11-16] MEDS: buPROPion (SR) 150 MG Tablet.SA PO ×2 (05:28→17:48)
[2022-11-16] MEDS: Menthol/Lanolin/Calamine/Znox 113 GM Tube 1 APPLIC TOPICAL ×2 (05:29→17:50)
[2022-11-16] MEDS: Nystatin Powder 15gm Bottle 1 APPLIC TOPICAL ×2 (05:29→17:50)
[2022-11-16] MEDS: LORazepam 0.5 MG Tablet 1 MG PO ×2 (05:38→21:05)
[2022-11-16 07:37] VITALS: BMI 37.1
[2022-11-16] MEDS: Cholecalciferol (VIT D3) 25 MCG TABLET (1,000 UNITS) PO (07:52)
[2022-11-16] MEDS: Carvedilol 3.125 MG TABLET PO ×2 (07:52→17:46)
[2022-11-16] MEDS: Calcium Carb/Vitamin D 1 TABLET Tablet PO ×2 (07:52→17:46)
[2022-11-16 10:00] VITALS: PULSE 78; RESP 16; O2SAT 94
[2022-11-16] MEDS: oxyCODONE 5 MG Tablet PO (11:48)
[2022-11-16 15:30] VITALS: BP 101/55; PULSE 81; RESP 16; TEMP 36.1; O2SAT 96
[2022-11-16] MEDS: Rivaroxaban 10 MG Tablet PO (17:46)
[2022-11-16] MEDS: Senna/Docusate Sodium 1 Tablet 2 TABLET PO (17:47)
[2022-11-16] MEDS: Gabapentin 300 MG Capsule PO (21:05)
[2022-11-17] MEDS: buPROPion (SR) 150 MG Tablet.SA PO ×2 (05:23→17:36)
[2022-11-17] MEDS: Pantoprazole Sodium 40 MG Tablet PO ×2 (05:23→17:36)
[2022-11-17] MEDS: PARoxetine 10 MG Tablet 30 MG PO (05:23)
[2022-11-17] MEDS: tiZANidine HCl 2 MG Tablet 4 MG PO ×3 (05:23→21:01)
[2022-11-17] MEDS: Senna/Docusate Sodium 1 Tablet 2 TABLET PO ×2 (05:23→17:36)
[2022-11-17] MEDS: Ibuprofen 600 MG Tablet PO ×3 (05:24→21:01)
[2022-11-17] MEDS: Menthol/Lanolin/Calamine/Znox 113 GM Tube 1 APPLIC TOPICAL ×2 (05:24→17:36)
[2022-11-17] MEDS: Nystatin Powder 15gm Bottle 1 APPLIC TOPICAL ×2 (05:24→17:36)
[2022-11-17 05:51] LABS: Absolute Lymphocyte Count 2.52 X10^3/uL (0.83-4.51); Absolute Neutrophil Count 2.6 X10^3/uL (2.0-7.7); Basophil# 0.06 X10^3/uL; Eosinophil# 0.17 X10^3/uL; Hematocrit 34.9 % (37-47); Hemoglobin 10.8 g/dL (12.0-15.0); Lymphocyte # 2.52 X10^3/ul (0.83-4.51); Lymphocyte % 43.8 % (19-41); Mean Corp Hgb Conc 30.9 g/dL (32-36); Mean Corpuscular Hgb 27.6 pg (27.0-32.0); Mean Corpuscular Volume 89.3 fL (81-99); Mean Platelet Vol. 9.3 fl (6.2-12.0); Monocyte# 0.41 X10^3/uL; Monocyte% 7.1 % (0-10); NRBC Flagged by Analyzer 0 % (0-5); Neutrophil # 2.57 X10^3/uL (2.7-7.7); Neutrophil % 44.6 % (47-70); Platelet Count 355 K/mm3 (150-450); RBC Distribution Width CV 15.1 % (11.6-14.6); RBC Distribution Width SD 49.1 fl (35.1-43.9); Red Blood Count 3.91 M/mm3 (4.2-5.4); White Blood Count 5.8 K/mm3 (4.4-11.0)
[2022-11-17 06:37] LABS: Anion Gap 4 (5-15); BUN 32 mg/dL (7-18); BUN/Creat Ratio 33.5 RATIO (10-20); Calcium,Total 9.2 mg/dL (8.5-10.1); Chloride 109 mmol/L (98-107); Creatinine, Serum 0.96 mg/dL (0.55-1.02); EST Glomerular Filtration Rate 61 mL/min (>60); Est Glom Filt Rate - Afr Amer 73 mL/min (>60); Estimated Creatinine Clearance 67.89 ml/min; Glucose 96 mg/dL (74-106); Potassium 3.9 mmol/L (3.5-5.1); Sodium Level 142 mmol/L (136-145)
[2022-11-17 08:12] VITALS: BP 109/46; PULSE 101
[2022-11-17] MEDS: Cholecalciferol (VIT D3) 25 MCG TABLET (1,000 UNITS) PO (08:16)
[2022-11-17] MEDS: Carvedilol 3.125 MG TABLET PO (08:16)
[2022-11-17] MEDS: Calcium Carb/Vitamin D 1 TABLET Tablet PO ×2 (08:16→17:33)
[2022-11-17 08:51] VITALS: PULSE 98; RESP 16; O2SAT 95
[2022-11-17] MEDS: Gabapentin 300 MG Capsule PO ×2 (13:06→21:31)
[2022-11-17 13:17] VITALS: BP 120/50
[2022-11-17 14:09] VITALS: PULSE 79; RESP 18; TEMP 36.6; O2SAT 94
[2022-11-17] MEDS: Rivaroxaban 10 MG Tablet PO (17:33)
[2022-11-17 18:12] VITALS: BP 94/60; PULSE 74
[2022-11-17] MEDS: LORazepam 0.5 MG Tablet 1 MG PO (21:31)
[2022-11-18] MEDS: oxyCODONE 5 MG Tablet PO (05:30)
[2022-11-18] MEDS: LORazepam 0.5 MG Tablet 1 MG PO (05:34)
[2022-11-18] MEDS: Ibuprofen 600 MG Tablet PO ×3 (05:35→20:55)
[2022-11-18] MEDS: PARoxetine 10 MG Tablet 30 MG PO (05:35)
[2022-11-18] MEDS: tiZANidine HCl 2 MG Tablet 4 MG PO ×3 (05:36→20:55)
[2022-11-18] MEDS: buPROPion (SR) 150 MG Tablet.SA PO ×2 (05:36→18:09)
[2022-11-18] MEDS: Pantoprazole Sodium 40 MG Tablet PO ×2 (05:37→18:09)
[2022-11-18] MEDS: Menthol/Lanolin/Calamine/Znox 113 GM Tube 1 APPLIC TOPICAL ×2 (05:38→18:10)
[2022-11-18] MEDS: Nystatin Powder 15gm Bottle 1 APPLIC TOPICAL ×2 (05:38→18:10)
[2022-11-18 07:41] VITALS: BP 109/56; PULSE 83
[2022-11-18] MEDS: Calcium Carb/Vitamin D 1 TABLET Tablet PO ×2 (07:41→18:09)
[2022-11-18] MEDS: Carvedilol 3.125 MG TABLET PO (07:41)
[2022-11-18] MEDS: Cholecalciferol (VIT D3) 25 MCG TABLET (1,000 UNITS) PO (08:18)
--- NOTE | 2022-11-18 08:45 | NURSING ---
Pt left floor with physicians ambulance at 0842 for f/u appointment
--- NOTE | 2022-11-18 10:36 | NURSING ---
Pt returned to unit at 1025 from f/u with Dr. Portillo- New orders for weight bearing as tolerated left lower extremity for transfers
--- NOTE | 2022-11-18 15:03 | NURSING ---
This nurse called Dr. Arreola office after appointment for clarification regarding WB status and shoulder mobility status. Dr. Portillo's Nurse stated that report wasn't done yet but clarified WBAT to LLE and NWB to right leg continues. No answer on shoulder questions. Stated they will call this nurse back, awaiting call back at this time. RN aware
[2022-11-18 15:12] VITALS: BP 108/48; PULSE 110; RESP 16; TEMP 36.4; O2SAT 92
[2022-11-18] MEDS: Gabapentin 300 MG Capsule PO (18:09)
[2022-11-18] MEDS: Acetaminophen 500 MG Tablet 1000 MG PO (18:09)
[2022-11-18] MEDS: Senna/Docusate Sodium 1 Tablet 2 TABLET PO (18:09)
[2022-11-18] MEDS: Rivaroxaban 10 MG Tablet PO (18:10)
[2022-11-18 20:40] VITALS: PULSE 88; RESP 16; O2SAT 96
[2022-11-19] MEDS: Pantoprazole Sodium 40 MG Tablet PO ×2 (05:33→17:10)
[2022-11-19] MEDS: buPROPion (SR) 150 MG Tablet.SA PO ×2 (05:33→17:10)
[2022-11-19] MEDS: Ibuprofen 600 MG Tablet PO ×3 (05:33→21:05)
[2022-11-19] MEDS: Nystatin Powder 15gm Bottle 1 APPLIC TOPICAL ×2 (05:33→17:12)
[2022-11-19] MEDS: Menthol/Lanolin/Calamine/Znox 113 GM Tube 1 APPLIC TOPICAL ×2 (05:33→17:13)
[2022-11-19] MEDS: PARoxetine 10 MG Tablet 30 MG PO (05:33)
[2022-11-19] MEDS: tiZANidine HCl 2 MG Tablet 4 MG PO (05:33)
[2022-11-19 05:35] VITALS: BP 116/59; PULSE 75
[2022-11-19] MEDS: Carvedilol 3.125 MG TABLET PO ×2 (07:55→17:09)
[2022-11-19] MEDS: Calcium Carb/Vitamin D 1 TABLET Tablet PO ×2 (07:55→17:09)
[2022-11-19] MEDS: Cholecalciferol (VIT D3) 25 MCG TABLET (1,000 UNITS) PO (07:55)
[2022-11-19] MEDS: tiZANidine HCl 2 MG Tablet PO ×2 (13:07→21:05)
[2022-11-19] MEDS: LORazepam 0.5 MG Tablet 1 MG PO ×2 (13:08→21:05)
[2022-11-19 13:33] VITALS: BP 121/48; PULSE 104; RESP 20; TEMP 36; O2SAT 95
--- NOTE | 2022-11-19 16:45 | NURSING ---
Addendum entered by Monika Rojas 11/22/22 11:52: Called Bandar's office to clarify LUE weight bearing status due to note below, no orders were entered. Per Tequila from office, patient to remain NWB to LUE. Original Note: Recieved call from Dr Portillo's nurse. She stated their office had faxed office note which included clarification of previous issue. While on the phone confirmed with nurse that pt is to continue to wear sling however she is permitted weight bearing of LUE for transfer. RLE is permitted passive ROM only and immobilizer required while transferring.
[2022-11-19] MEDS: Rivaroxaban 10 MG Tablet PO (17:10)
[2022-11-19] MEDS: Senna/Docusate Sodium 1 Tablet 2 TABLET PO (17:10)
[2022-11-20] MEDS: oxyCODONE 5 MG Tablet PO (03:26)
[2022-11-20] MEDS: Gabapentin 300 MG Capsule PO (03:26)
[2022-11-20] MEDS: Acetaminophen 500 MG Tablet 1000 MG PO (03:26)
[2022-11-20] MEDS: Nystatin Powder 15gm Bottle 1 APPLIC TOPICAL ×2 (05:59→21:44)
[2022-11-20] MEDS: Menthol/Lanolin/Calamine/Znox 113 GM Tube 1 APPLIC TOPICAL ×2 (06:00→17:34)
[2022-11-20] MEDS: Ibuprofen 600 MG Tablet PO ×3 (06:03→21:44)
[2022-11-20] MEDS: Senna/Docusate Sodium 1 Tablet 2 TABLET PO ×2 (06:03→17:35)
[2022-11-20] MEDS: buPROPion (SR) 150 MG Tablet.SA PO ×2 (06:03→17:35)
[2022-11-20] MEDS: PARoxetine 10 MG Tablet 30 MG PO (06:04)
[2022-11-20] MEDS: tiZANidine HCl 2 MG Tablet PO ×3 (06:04→21:44)
[2022-11-20] MEDS: Pantoprazole Sodium 40 MG Tablet PO ×2 (06:04→17:35)
[2022-11-20] MEDS: Carvedilol 3.125 MG TABLET PO ×2 (08:16→17:33)
[2022-11-20] MEDS: Calcium Carb/Vitamin D 1 TABLET Tablet PO ×2 (08:16→17:33)
[2022-11-20] MEDS: Cholecalciferol (VIT D3) 25 MCG TABLET (1,000 UNITS) PO (08:17)
[2022-11-20 08:23] VITALS: BP 102/50; PULSE 67; O2SAT 93
[2022-11-20 15:21] VITALS: BP 112/55; PULSE 77; RESP 16; TEMP 36.3; O2SAT 95
[2022-11-20] MEDS: Rivaroxaban 10 MG Tablet PO (17:33)
[2022-11-20] MEDS: LORazepam 0.5 MG Tablet 1 MG PO (21:45)
[2022-11-21] MEDS: Pantoprazole Sodium 40 MG Tablet PO ×2 (06:03→17:49)
[2022-11-21] MEDS: tiZANidine HCl 2 MG Tablet PO ×3 (06:03→20:14)
[2022-11-21] MEDS: Nystatin Powder 15gm Bottle 1 APPLIC TOPICAL ×2 (06:04→17:49)
[2022-11-21] MEDS: buPROPion (SR) 150 MG Tablet.SA PO ×2 (06:04→17:50)
[2022-11-21] MEDS: Ibuprofen 600 MG Tablet PO ×3 (06:04→20:14)
[2022-11-21] MEDS: PARoxetine 10 MG Tablet 30 MG PO (06:05)
[2022-11-21] MEDS: Menthol/Lanolin/Calamine/Znox 113 GM Tube 1 APPLIC TOPICAL ×2 (06:05→17:48)
[2022-11-21] MEDS: oxyCODONE 5 MG Tablet PO (06:14)
[2022-11-21] MEDS: Calcium Carb/Vitamin D 1 TABLET Tablet PO ×2 (08:43→17:48)
[2022-11-21] MEDS: Cholecalciferol (VIT D3) 25 MCG TABLET (1,000 UNITS) PO (08:44)
[2022-11-21] MEDS: Carvedilol 3.125 MG TABLET PO ×2 (08:48→17:50)
[2022-11-21 08:49] VITALS: BP 106/58; PULSE 58
[2022-11-21 11:30] VITALS: PULSE 74; RESP 18; O2SAT 95
--- NOTE | 2022-11-21 13:01 | NURSING ---
PT HAS BEEN ASKED TWICE ABOUT GETTING CLEANED UP AND GETTING OUT OF BED. PT REFUSED STATING I DONT HAVE THERAPY TODAY LIV JUST GOING TO RELAX.
[2022-11-21] MEDS: LORazepam 0.5 MG Tablet 1 MG PO ×2 (15:05→20:13)
[2022-11-21 15:25] VITALS: BP 115/44; PULSE 85; RESP 18; TEMP 36.3; O2SAT 93
[2022-11-21] MEDS: Rivaroxaban 10 MG Tablet PO (17:48)
[2022-11-21] MEDS: Senna/Docusate Sodium 1 Tablet 2 TABLET PO (17:49)
[2022-11-21] MEDS: Gabapentin 300 MG Capsule PO (20:13)
--- NOTE | 2022-11-22 04:11 | NURSING ---
Addendum entered by Bobbi Gustafson 11/22/22 05:56: Pt notified of Sofi Rizzo requesting update and patient requests we not update her at this time as she makes patient upset. Patient agrees for Sofi to be able to visit at this time, but states she may have this visit revoked if patient becomes upset. Original Note: Person called in at 0400 identifying as Sofi Rizzo, [id number], asking for update on patient. Sofi notified that she was not listed on patient's contacts list and information could not be shared until patient consented. Encouraged to communicate with patient during daytime so she could be added to the list. Sofi acknowledged policy and expressed appreciation for explanation.
--- NOTE | 2022-11-22 05:03 | NURSING ---
Message left with MOISES Yao regarding recent passing of , who was under [facility] care, and the possible coordination of grief counseling for pt while she is staying in the TCU. RN aware.
[2022-11-22] MEDS: Senna/Docusate Sodium 1 Tablet 2 TABLET PO ×2 (05:51→17:55)
[2022-11-22] MEDS: Pantoprazole Sodium 40 MG Tablet PO ×2 (05:52→17:55)
[2022-11-22] MEDS: buPROPion (SR) 150 MG Tablet.SA PO ×2 (05:52→17:59)
[2022-11-22] MEDS: Ibuprofen 600 MG Tablet PO ×3 (05:53→19:53)
[2022-11-22] MEDS: tiZANidine HCl 2 MG Tablet PO ×3 (05:53→19:53)
[2022-11-22] MEDS: PARoxetine 10 MG Tablet 30 MG PO (05:53)
[2022-11-22] MEDS: Menthol/Lanolin/Calamine/Znox 113 GM Tube 1 APPLIC TOPICAL (05:55)
[2022-11-22] MEDS: Nystatin Powder 15gm Bottle 1 APPLIC TOPICAL ×2 (05:55→17:54)
[2022-11-22] MEDS: Cholecalciferol (VIT D3) 25 MCG TABLET (1,000 UNITS) PO (08:10)
[2022-11-22] MEDS: Calcium Carb/Vitamin D 1 TABLET Tablet PO ×2 (08:10→17:55)
[2022-11-22] MEDS: LORazepam 0.5 MG Tablet 1 MG PO ×2 (08:13→19:51)
[2022-11-22 14:07] VITALS: BP 98/60; PULSE 79; RESP 14; TEMP 35.9; O2SAT 96
--- NOTE | 2022-11-22 15:09 | CASEMGMT ---
Addendum entered by Najma Strickland 11/23/22 08:36: Received return call from Dian. The IPU Assistant Front End Manager has been notified of request and will reach out directly to patient to discuss. Original Note: Social Work Received voicemail from nursing requesting bereavement counseling with pt from [facility]. SW contacted Dian at [facility], left voicemail with request. Will await return call. Najma Strickland, BUTCH AKINSW
[2022-11-22] MEDS: Carvedilol 3.125 MG TABLET PO (17:54)
[2022-11-22] MEDS: Rivaroxaban 10 MG Tablet PO (17:55)
[2022-11-22 18:02] VITALS: BP 103/47; PULSE 73
[2022-11-22] MEDS: Gabapentin 300 MG Capsule PO (19:48)
[2022-11-22 20:30] VITALS: O2SAT 93
[2022-11-23] MEDS: oxyCODONE 5 MG Tablet PO ×3 (03:30→20:55)
[2022-11-23] MEDS: Gabapentin 300 MG Capsule PO (05:01)
[2022-11-23] MEDS: LORazepam 0.5 MG Tablet 1 MG PO ×2 (05:02→20:55)
[2022-11-23] MEDS: tiZANidine HCl 2 MG Tablet PO ×3 (05:03→20:51)
[2022-11-23] MEDS: PARoxetine 10 MG Tablet 30 MG PO (05:03)
[2022-11-23] MEDS: buPROPion (SR) 150 MG Tablet.SA PO ×2 (05:04→17:18)
[2022-11-23] MEDS: Senna/Docusate Sodium 1 Tablet 2 TABLET PO ×2 (05:04→17:19)
[2022-11-23] MEDS: Ibuprofen 600 MG Tablet PO ×3 (05:05→20:51)
[2022-11-23] MEDS: Pantoprazole Sodium 40 MG Tablet PO ×2 (05:08→17:19)
[2022-11-23] MEDS: Nystatin Powder 15gm Bottle 1 APPLIC TOPICAL ×2 (05:10→17:21)
[2022-11-23] MEDS: Menthol/Lanolin/Calamine/Znox 113 GM Tube 1 APPLIC TOPICAL ×2 (05:10→17:22)
[2022-11-23] MEDS: Calcium Carb/Vitamin D 1 TABLET Tablet PO ×2 (08:48→17:18)
[2022-11-23] MEDS: Carvedilol 3.125 MG TABLET PO ×2 (08:48→17:19)
[2022-11-23] MEDS: Cholecalciferol (VIT D3) 25 MCG TABLET (1,000 UNITS) PO (08:48)
[2022-11-23 14:01] VITALS: BMI 37.8
[2022-11-23] MEDS: Rivaroxaban 10 MG Tablet PO (17:18)
[2022-11-23 21:00] VITALS: BP 105/51; PULSE 78; RESP 16; TEMP 36.1; O2SAT 97
[2022-11-24 06:06] LABS: Absolute Lymphocyte Count 2.49 X10^3/uL (0.83-4.51); Basophil# 0.06 X10^3/uL; Basophil% 1.2 % (0-1); Eosinophil# 0.26 X10^3/uL; Eosinophils% 5.1 % (0-5); Hematocrit 34.4 % (37-47); Hemoglobin 10.6 g/dL (12.0-15.0); Lymphocyte # 2.49 X10^3/ul (0.83-4.51); Lymphocyte % 48.4 % (19-41); Mean Corp Hgb Conc 30.8 g/dL (32-36); Mean Corpuscular Hgb 27.7 pg (27.0-32.0); Mean Corpuscular Volume 90.1 fL (81-99); Mean Platelet Vol. 9.7 fl (6.2-12.0); Monocyte# 0.33 X10^3/uL; Monocyte% 6.4 % (0-10); NRBC Flagged by Analyzer 0 % (0-5); Neutrophil # 1.98 X10^3/uL (2.7-7.7); Neutrophil % 38.5 % (47-70); Platelet Count 281 K/mm3 (150-450); RBC Distribution Width CV 15.3 % (11.6-14.6); RBC Distribution Width SD 49.5 fl (35.1-43.9); Red Blood Count 3.82 M/mm3 (4.2-5.4); White Blood Count 5.1 K/mm3 (4.4-11.0)
[2022-11-24] MEDS: Ibuprofen 600 MG Tablet PO ×3 (06:35→20:57)
[2022-11-24] MEDS: Nystatin Powder 15gm Bottle 1 APPLIC TOPICAL ×2 (06:36→20:52)
[2022-11-24] MEDS: tiZANidine HCl 2 MG Tablet PO ×3 (06:37→20:57)
[2022-11-24 06:38] LABS: Anion Gap 5 (5-15); BUN 42 mg/dL (7-18); BUN/Creat Ratio 48.3 RATIO (10-20); Chloride 110 mmol/L (98-107); Creatinine, Serum 0.87 mg/dL (0.55-1.02); EST Glomerular Filtration Rate 68 mL/min (>60); Est Glom Filt Rate - Afr Amer 82 mL/min (>60); Estimated Creatinine Clearance 76.21 ml/min; Glucose 86 mg/dL (74-106); Potassium 4.3 mmol/L (3.5-5.1); Sodium Level 143 mmol/L (136-145)
[2022-11-24] MEDS: buPROPion (SR) 150 MG Tablet.SA PO ×2 (06:38→17:46)
[2022-11-24] MEDS: Senna/Docusate Sodium 1 Tablet 2 TABLET PO ×2 (06:38→17:44)
[2022-11-24] MEDS: Pantoprazole Sodium 40 MG Tablet PO ×2 (06:38→17:44)
[2022-11-24] MEDS: Menthol/Lanolin/Calamine/Znox 113 GM Tube 1 APPLIC TOPICAL ×2 (06:39→17:46)
[2022-11-24] MEDS: PARoxetine 10 MG Tablet 30 MG PO (06:40)
[2022-11-24] MEDS: Calcium Carb/Vitamin D 1 TABLET Tablet PO ×2 (08:29→17:43)
[2022-11-24] MEDS: Cholecalciferol (VIT D3) 25 MCG TABLET (1,000 UNITS) PO (08:30)
[2022-11-24 08:36] VITALS: BP 98/62; PULSE 80
[2022-11-24 16:00] VITALS: BP 107/42; PULSE 71; RESP 16; TEMP 36.4; O2SAT 94
[2022-11-24] MEDS: Rivaroxaban 10 MG Tablet PO (17:43)
[2022-11-24] MEDS: Carvedilol 3.125 MG TABLET PO (17:43)
[2022-11-24] MEDS: LORazepam 0.5 MG Tablet 1 MG PO (17:45)
[2022-11-24 21:00] VITALS: PULSE 76; RESP 16; O2SAT 94
[2022-11-25] MEDS: oxyCODONE 5 MG Tablet PO ×2 (03:58→14:54)
[2022-11-25] MEDS: buPROPion (SR) 150 MG Tablet.SA PO ×2 (05:30→17:25)
[2022-11-25] MEDS: Senna/Docusate Sodium 1 Tablet 2 TABLET PO ×2 (05:31→17:24)
[2022-11-25] MEDS: Pantoprazole Sodium 40 MG Tablet PO ×2 (05:31→17:25)
[2022-11-25] MEDS: PARoxetine 10 MG Tablet 30 MG PO (05:31)
[2022-11-25] MEDS: Ibuprofen 600 MG Tablet PO ×3 (05:32→21:01)
[2022-11-25] MEDS: tiZANidine HCl 2 MG Tablet PO ×3 (05:32→21:01)
[2022-11-25] MEDS: Nystatin Powder 15gm Bottle 1 APPLIC TOPICAL ×2 (05:33→17:28)
[2022-11-25] MEDS: Menthol/Lanolin/Calamine/Znox 113 GM Tube 1 APPLIC TOPICAL ×2 (05:35→17:29)
[2022-11-25 06:47] VITALS: BP 103/41; PULSE 67
[2022-11-25] MEDS: Calcium Carb/Vitamin D 1 TABLET Tablet PO ×2 (07:58→17:26)
[2022-11-25] MEDS: Cholecalciferol (VIT D3) 25 MCG TABLET (1,000 UNITS) PO (07:58)
[2022-11-25] MEDS: Carvedilol 3.125 MG TABLET PO ×2 (07:59→17:26)
[2022-11-25 08:02] VITALS: BP 118/58; PULSE 71
[2022-11-25 10:00] VITALS: PULSE 76; RESP 18; O2SAT 95
[2022-11-25 14:38] VITALS: BP 107/43; PULSE 72; RESP 16; TEMP 35.7; O2SAT 94
[2022-11-25] MEDS: LORazepam 0.5 MG Tablet 1 MG PO (15:10)
[2022-11-25] MEDS: Rivaroxaban 10 MG Tablet PO (17:26)
[2022-11-26] MEDS: PARoxetine 10 MG Tablet 30 MG PO (05:17)
[2022-11-26] MEDS: Ibuprofen 600 MG Tablet PO ×3 (05:17→21:20)
[2022-11-26] MEDS: Nystatin Powder 15gm Bottle 1 APPLIC TOPICAL ×2 (05:17→17:25)
[2022-11-26] MEDS: Pantoprazole Sodium 40 MG Tablet PO ×2 (05:17→17:22)
[2022-11-26] MEDS: tiZANidine HCl 2 MG Tablet PO ×3 (05:17→21:20)
[2022-11-26] MEDS: buPROPion (SR) 150 MG Tablet.SA PO ×2 (05:17→17:22)
[2022-11-26] MEDS: Senna/Docusate Sodium 1 Tablet 2 TABLET PO ×2 (05:17→17:23)
[2022-11-26] MEDS: Menthol/Lanolin/Calamine/Znox 113 GM Tube 1 APPLIC TOPICAL ×2 (05:18→17:26)
[2022-11-26 05:21] VITALS: BP 107/43; PULSE 71
[2022-11-26] MEDS: LORazepam 0.5 MG Tablet 1 MG PO ×2 (08:41→21:21)
[2022-11-26] MEDS: Calcium Carb/Vitamin D 1 TABLET Tablet PO ×2 (08:42→17:21)
[2022-11-26] MEDS: Cholecalciferol (VIT D3) 25 MCG TABLET (1,000 UNITS) PO (08:42)
[2022-11-26 14:34] VITALS: BP 102/40; PULSE 80; RESP 18; TEMP 36.3; O2SAT 95
[2022-11-26] MEDS: Carvedilol 3.125 MG TABLET PO (17:21)
[2022-11-26] MEDS: Rivaroxaban 10 MG Tablet PO (17:24)
[2022-11-26] MEDS: Gabapentin 300 MG Capsule PO (21:22)
[2022-11-26 22:00] VITALS: O2SAT 96
[2022-11-27] MEDS: oxyCODONE 5 MG Tablet PO (05:52)
[2022-11-27] MEDS: tiZANidine HCl 2 MG Tablet PO ×3 (05:53→20:57)
[2022-11-27] MEDS: PARoxetine 10 MG Tablet 30 MG PO (05:53)
[2022-11-27] MEDS: Ibuprofen 600 MG Tablet PO ×3 (05:53→20:56)
[2022-11-27] MEDS: buPROPion (SR) 150 MG Tablet.SA PO ×2 (05:54→17:45)
[2022-11-27] MEDS: Pantoprazole Sodium 40 MG Tablet PO ×2 (05:54→17:43)
[2022-11-27] MEDS: Senna/Docusate Sodium 1 Tablet 2 TABLET PO ×2 (05:54→17:44)
[2022-11-27] MEDS: Nystatin Powder 15gm Bottle 1 APPLIC TOPICAL ×2 (05:55→17:45)
[2022-11-27] MEDS: Menthol/Lanolin/Calamine/Znox 113 GM Tube 1 APPLIC TOPICAL ×2 (05:55→17:46)
[2022-11-27] MEDS: Carvedilol 3.125 MG TABLET PO ×2 (08:14→17:42)
[2022-11-27] MEDS: Calcium Carb/Vitamin D 1 TABLET Tablet PO ×2 (08:14→17:43)
[2022-11-27] MEDS: Cholecalciferol (VIT D3) 25 MCG TABLET (1,000 UNITS) PO (08:15)
[2022-11-27] MEDS: Gabapentin 300 MG Capsule PO (08:49)
[2022-11-27 15:57] VITALS: BP 102/52; PULSE 76; RESP 16; TEMP 36.3; O2SAT 91
[2022-11-27] MEDS: Rivaroxaban 10 MG Tablet PO (17:43)
[2022-11-27] MEDS: LORazepam 0.5 MG Tablet 1 MG PO (20:57)
[2022-11-28] MEDS: Nystatin Powder 15gm Bottle 1 APPLIC TOPICAL ×2 (05:56→17:32)
[2022-11-28] MEDS: Menthol/Lanolin/Calamine/Znox 113 GM Tube 1 APPLIC TOPICAL ×2 (05:57→17:32)
[2022-11-28] MEDS: PARoxetine 10 MG Tablet 30 MG PO (05:58)
[2022-11-28] MEDS: tiZANidine HCl 2 MG Tablet PO ×3 (05:58→21:09)
[2022-11-28] MEDS: Ibuprofen 600 MG Tablet PO ×3 (05:58→21:08)
[2022-11-28] MEDS: Senna/Docusate Sodium 1 Tablet 2 TABLET PO ×2 (05:58→17:34)
[2022-11-28] MEDS: buPROPion (SR) 150 MG Tablet.SA PO ×2 (05:58→17:39)
[2022-11-28] MEDS: Pantoprazole Sodium 40 MG Tablet PO ×2 (05:58→17:31)
[2022-11-28] MEDS: Iron Polysaccharide Complex 150 MG CAPSULE PO (05:59)
[2022-11-28] MEDS: Cholecalciferol (VIT D3) 25 MCG TABLET (1,000 UNITS) PO (08:06)
[2022-11-28] MEDS: Calcium Carb/Vitamin D 1 TABLET Tablet PO ×2 (08:06→17:31)
[2022-11-28] MEDS: Carvedilol 3.125 MG TABLET PO ×2 (08:07→17:31)
[2022-11-28] MEDS: LORazepam 0.5 MG Tablet 1 MG PO ×2 (13:59→21:08)
[2022-11-28 15:19] VITALS: BP 96/55; PULSE 79; RESP 14; TEMP 36.3; O2SAT 96
[2022-11-28] MEDS: Rivaroxaban 10 MG Tablet PO (17:31)
[2022-11-28 20:22] VITALS: PULSE 71; RESP 18; O2SAT 97
[2022-11-29] MEDS: tiZANidine HCl 2 MG Tablet PO ×3 (05:25→21:33)
[2022-11-29] MEDS: Ibuprofen 600 MG Tablet PO ×3 (05:25→21:34)
[2022-11-29] MEDS: PARoxetine 10 MG Tablet 30 MG PO (05:25)
[2022-11-29] MEDS: buPROPion (SR) 150 MG Tablet.SA PO ×2 (05:25→17:06)
[2022-11-29] MEDS: Pantoprazole Sodium 40 MG Tablet PO ×2 (05:25→17:06)
[2022-11-29] MEDS: Senna/Docusate Sodium 1 Tablet 2 TABLET PO (05:26)
[2022-11-29] MEDS: Nystatin Powder 15gm Bottle 1 APPLIC TOPICAL ×2 (05:26→17:10)
[2022-11-29] MEDS: Iron Polysaccharide Complex 150 MG CAPSULE PO (05:27)
[2022-11-29] MEDS: Menthol/Lanolin/Calamine/Znox 113 GM Tube 1 APPLIC TOPICAL ×2 (05:27→17:11)
--- NOTE | 2022-11-29 05:28 | NURSING ---
Pt requested lower dose senna
[2022-11-29] MEDS: Calcium Carb/Vitamin D 1 TABLET Tablet PO ×2 (08:04→17:06)
[2022-11-29] MEDS: Cholecalciferol (VIT D3) 25 MCG TABLET (1,000 UNITS) PO (08:04)
[2022-11-29 08:10] VITALS: BP 92/58; PULSE 91; RESP 16
[2022-11-29 10:00] VITALS: PULSE 88; RESP 18; O2SAT 95
[2022-11-29 16:00] VITALS: BP 113/43; PULSE 79; RESP 16; TEMP 36.4; O2SAT 95
[2022-11-29] MEDS: Rivaroxaban 10 MG Tablet PO (17:07)
--- NOTE | 2022-11-29 19:20 | PN.TCU_ITS ---
Subjective Subjective Resident seen, examined for regulatory visit. Her while she was on TCU, she is grieving. She otherwise has no other complaints. Objective Data Objective Data Vital Signs: Vital Signs Temp Pulse Resp BP Pulse Ox O2 Del Method FiO2 97.6 F L 79 16 113/43 L 95 Room Air 93 11/29/22 16:00 11/29/22 16:00 11/29/22 16:00 11/29/22 16:00 11/29/22 16:00 11/29/22 16:00 11/10/22 07:10 Oxygen Delivery Method Room Air Weight: 85.094 kg Body Mass Index (BMI) 37.8 Intake & Output: Intake and Output for Last 24 Hours 11/27/22 11/28/22 11/29/22 23:59 23:59 23:59 Intake Total 660 / 660 720 / 720 480 / 480 Output Total 150 / 150 600 / 600 900 / 900 Balance 510 / 510 120 / 120 -420 / -420 Medical Nutrition Assessment Dietitian: Malnutrition Criteria Met Start: 11/10/22 13:39 Freq: Status: Active Protocol: Document 11/17/22 14:01 OREN (Rec: 11/17/22 14:01 OREN [id number]) Nutrition Malnutrition Evidence of Malnutrition Exists Yes Malnutrition (severe): Acute Illness/Injury Evidenced By Suboptimal Energy Intake ( Severe),Weight Loss (Severe) Intake Problem Inadequate Oral Intake Status Inactive Problem Clinical Problem Acute Disease or Injury Related Malnutrition Etiology related to GI dysfunction making it difficult to consume adequate po intake and recent passing of spouse Signs/Symptoms as evidenced by unintentional wt loss of 3.1% since last review, LBM 11/15/22 and eating <50% x > 5 days Status Active Problem Recommendation Dietitian Recommendations/Changes Will change diet to liberal Regular d/t signs/symptoms of malnutrition and recent passing of spouse. Will follow and monitor for changes in res nutritional status Lab / Micro Data Result Diagrams: 11/24/22 05:20 11/24/22 05:20 Micro: Microbiology 11/06/22 12:08 Nasal Secretion SARS-CoV-2 Antigen (Rapid) - Final 11/04/22 05:42 Nasal Secretion SARS-CoV-2 Antigen (Rapid) - Final Physical Exam Const alert General Appearance: cooperative HEENT normocephalic Eyes PERRL and EOMs intact bilaterally Neck supple, no JVD and no carotid bruits Resp normal respiratory effort, normal air movement and clear to auscultation bilaterally Cardio regular rate and regular rhythm GI normal to inspection, nondistended, normoactive bowel sounds, non-tender and non-distended Extremity normal capillary refill Extremity Narrative: Right knee immobilizer. General Extremity: Negative for edema Skin no rashes or lesions noted General Skin Exam: no breakdown Psych affect normal Appearance: appropriate Assessment & Plan Assessment/Plan (1) Debility: (2) Fall: (3) Multiple rib fractures: (4) Fracture of left inferior pubic ramus: (5) Fracture of right tibial plateau: (6) GERD (gastroesophageal reflux disease): (7) Chronic systolic (congestive) heart failure: (8) Depression: (9) Iron deficiency anemia: (10) Hypokalemia: (11) Neuropathic pain: (12) Osteoporosis: PLAN: Plan 72 year old female with below past medical history hospitalized for fall, multiple rib fractures, left pelvis fracture, right tibial plateau fracture, complicated by urinary retention, admitted to TCU with debility, here for rehabilitation, strengthening, prior to discharge home with family. * Debility - PT/OT. * Pain - Tylenol 1000mg q6h prn pain (1-3), Oxycodone 5mg q4h prn pain (4-10), Ibuprofen 600mg q8h. * Bowel - senna/colace 2 tablets bid, MOM 30ml po x 1 prn. * Adult immunization - Administer pneumonia vaccine, covid19 vaccine, flu vac cine as appropriate. * DVT prophylaxis - Xarelto 10mg daily thru 12/04/2022. * Depression - Bupropion SR 150mg bid, Paxil 30mg daily, stable chronic quantitative consultant use, GDR not recommended. * Calcium deficiency - Calcium D 1 tablet bidcm. * Chronic systolic congestive heart failure - Coreg 3.125mg bid. * Neuropathic pain - Gabapentin 300mg tid prn. * Iron deficiency anemia - Ferrex 150mg daily. * Skin irritation - Calmoseptine topical bid. * Tinea corporis - Nystatin powder topical bid. * GERD - Pantoprazole 40mg bid. * Muscle spasm - Tizanidine 2mg tid. * Vitamin D deficiency - D3 25mcg daily. * Anxiety - Ativan 1mg q4h prn. Capacity Capacity Assessment Tool Can the patient make a choice & communicate that choice?: Yes Can the patient understand benefits, risks and alternatives?: Yes Can the patient make a logical, rational choice?: Yes Is the choice the patient makes consistent w/ their values?: Yes Is there an impending, emergent risk to the patient?: No Does the patient have an Advance Directive?: No Is there a Surrogate Available?: Yes i.e. HCPOA: Yes i.e. close relative (spouse, child, parent, sibling)?: Yes
[2022-11-29] MEDS: LORazepam 0.5 MG Tablet 1 MG PO (21:32)
[2022-11-29] MEDS: Gabapentin 300 MG Capsule PO (21:33)
[2022-11-30] MEDS: PARoxetine 10 MG Tablet 30 MG PO (05:50)
[2022-11-30] MEDS: buPROPion (SR) 150 MG Tablet.SA PO ×2 (05:51→17:48)
[2022-11-30] MEDS: tiZANidine HCl 2 MG Tablet PO ×3 (05:51→21:32)
[2022-11-30] MEDS: Ibuprofen 600 MG Tablet PO ×3 (05:51→21:31)
[2022-11-30] MEDS: Pantoprazole Sodium 40 MG Tablet PO ×2 (05:52→17:47)
[2022-11-30] MEDS: Menthol/Lanolin/Calamine/Znox 113 GM Tube 1 APPLIC TOPICAL ×2 (05:52→17:49)
[2022-11-30] MEDS: Nystatin Powder 15gm Bottle 1 APPLIC TOPICAL ×2 (05:53→17:48)
[2022-11-30 07:58] VITALS: BP 121/63; PULSE 94; RESP 16
[2022-11-30] MEDS: Acetaminophen 500 MG Tablet 1000 MG PO (08:00)
[2022-11-30] MEDS: Calcium Carb/Vitamin D 1 TABLET Tablet PO ×2 (08:02→17:48)
[2022-11-30] MEDS: Carvedilol 3.125 MG TABLET PO ×2 (08:02→17:50)
[2022-11-30] MEDS: Cholecalciferol (VIT D3) 25 MCG TABLET (1,000 UNITS) PO (08:02)
[2022-11-30] MEDS: oxyCODONE 5 MG Tablet PO (13:52)
[2022-11-30 15:21] VITALS: BP 106/45; PULSE 72; RESP 18; TEMP 37; O2SAT 95
[2022-11-30 16:00] VITALS: BMI 38.0
[2022-11-30 17:42] VITALS: BP 131/53; PULSE 70; RESP 16
[2022-11-30] MEDS: Senna/Docusate Sodium 1 Tablet 2 TABLET PO (17:47)
[2022-11-30] MEDS: Rivaroxaban 10 MG Tablet PO (17:48)
[2022-11-30] MEDS: Gabapentin 300 MG Capsule PO (21:31)
[2022-11-30] MEDS: LORazepam 0.5 MG Tablet 1 MG PO (21:36)
[2022-11-30 22:00] VITALS: O2SAT 96
[2022-12-01 06:10] LABS: Absolute Lymphocyte Count 2.55 X10^3/uL (0.83-4.51); Absolute Neutrophil Count 2.6 X10^3/uL (2.0-7.7); Basophil# 0.05 X10^3/uL; Basophil% 0.9 % (0-1); Eosinophil# 0.19 X10^3/uL; Eosinophils% 3.3 % (0-5); Hematocrit 33.9 % (37-47); Hemoglobin 10.5 g/dL (12.0-15.0); Lymphocyte # 2.55 X10^3/ul (0.83-4.51); Lymphocyte % 43.7 % (19-41); Mean Corpuscular Hgb 27.8 pg (27.0-32.0); Mean Corpuscular Volume 89.7 fL (81-99); Mean Platelet Vol. 9.6 fl (6.2-12.0); Monocyte# 0.44 X10^3/uL; Monocyte% 7.5 % (0-10); NRBC Flagged by Analyzer 0 % (0-5); Neutrophil # 2.58 X10^3/uL (2.7-7.7); Neutrophil % 44.3 % (47-70); Platelet Count 244 K/mm3 (150-450); RBC Distribution Width SD 49.4 fl (35.1-43.9); Red Blood Count 3.78 M/mm3 (4.2-5.4); White Blood Count 5.8 K/mm3 (4.4-11.0)
[2022-12-01] MEDS: oxyCODONE 5 MG Tablet PO ×2 (06:34→17:57)
[2022-12-01] MEDS: Ibuprofen 600 MG Tablet PO ×3 (06:35→21:18)
[2022-12-01] MEDS: tiZANidine HCl 2 MG Tablet PO ×3 (06:35→21:18)
[2022-12-01] MEDS: PARoxetine 10 MG Tablet 30 MG PO (06:35)
[2022-12-01] MEDS: buPROPion (SR) 150 MG Tablet.SA PO ×2 (06:35→17:57)
[2022-12-01] MEDS: Pantoprazole Sodium 40 MG Tablet PO ×2 (06:35→17:57)
[2022-12-01] MEDS: Senna/Docusate Sodium 1 Tablet 2 TABLET PO ×2 (06:36→17:57)
[2022-12-01] MEDS: Nystatin Powder 15gm Bottle 1 APPLIC TOPICAL ×2 (06:37→09:21)
[2022-12-01] MEDS: Menthol/Lanolin/Calamine/Znox 113 GM Tube 1 APPLIC TOPICAL ×2 (06:37→09:21)
[2022-12-01 07:10] LABS: Anion Gap 5 (5-15); BUN 24 mg/dL (7-18); BUN/Creat Ratio 30.6 RATIO (10-20); Calcium,Total 8.8 mg/dL (8.5-10.1); Chloride 111 mmol/L (98-107); Creatinine, Serum 0.78 mg/dL (0.55-1.02); EST Glomerular Filtration Rate 76 mL/min (>60); Est Glom Filt Rate - Afr Amer 92 mL/min (>60); Estimated Creatinine Clearance 66.58 ml/min; Glucose 88 mg/dL (74-106); Potassium 4.3 mmol/L (3.5-5.1); Sodium Level 145 mmol/L (136-145)
[2022-12-01] MEDS: Calcium Carb/Vitamin D 1 TABLET Tablet PO ×2 (09:20→17:57)
[2022-12-01] MEDS: Cholecalciferol (VIT D3) 25 MCG TABLET (1,000 UNITS) PO (09:20)
[2022-12-01] MEDS: Carvedilol 3.125 MG TABLET PO ×2 (09:20→17:57)
[2022-12-01] MEDS: Gabapentin 300 MG Capsule PO ×2 (09:23→21:19)
[2022-12-01 09:32] VITALS: BP 110/53; PULSE 78
[2022-12-01 15:36] VITALS: BP 96/44; PULSE 82; RESP 16; TEMP 36.8; O2SAT 92
[2022-12-01 16:04] VITALS: PULSE 78; RESP 18; O2SAT 97
[2022-12-01] MEDS: Rivaroxaban 10 MG Tablet PO (17:57)
[2022-12-01] MEDS: LORazepam 0.5 MG Tablet 1 MG PO (21:19)
[2022-12-02] MEDS: PARoxetine 10 MG Tablet 30 MG PO (06:37)
[2022-12-02] MEDS: buPROPion (SR) 150 MG Tablet.SA PO ×2 (06:37→17:45)
[2022-12-02] MEDS: Pantoprazole Sodium 40 MG Tablet PO ×2 (06:37→17:46)
[2022-12-02] MEDS: Menthol/Lanolin/Calamine/Znox 113 GM Tube 1 APPLIC TOPICAL ×2 (06:38→17:51)
[2022-12-02] MEDS: Nystatin Powder 15gm Bottle 1 APPLIC TOPICAL ×2 (06:38→17:42)
[2022-12-02] MEDS: tiZANidine HCl 2 MG Tablet PO ×3 (06:38→21:16)
[2022-12-02] MEDS: Ibuprofen 600 MG Tablet PO ×3 (06:38→21:16)
[2022-12-02] MEDS: Iron Polysaccharide Complex 150 MG CAPSULE PO (06:38)
[2022-12-02] MEDS: oxyCODONE 5 MG Tablet PO ×2 (06:42→21:14)
[2022-12-02] MEDS: Carvedilol 3.125 MG TABLET PO ×2 (08:26→17:47)
[2022-12-02] MEDS: Cholecalciferol (VIT D3) 25 MCG TABLET (1,000 UNITS) PO (08:26)
[2022-12-02] MEDS: Calcium Carb/Vitamin D 1 TABLET Tablet PO ×2 (08:26→17:47)
[2022-12-02 08:28] VITALS: BP 100/52; PULSE 72
[2022-12-02 10:00] VITALS: PULSE 70; RESP 18; O2SAT 95
[2022-12-02 15:34] VITALS: BP 106/63; PULSE 75; RESP 14; TEMP 36.1; O2SAT 96
[2022-12-02] MEDS: Senna/Docusate Sodium 1 Tablet 2 TABLET PO (17:45)
[2022-12-02] MEDS: Rivaroxaban 10 MG Tablet PO (17:47)
[2022-12-02] MEDS: LORazepam 0.5 MG Tablet 1 MG PO (21:15)
[2022-12-03] MEDS: buPROPion (SR) 150 MG Tablet.SA PO ×2 (05:37→17:07)
[2022-12-03] MEDS: Menthol/Lanolin/Calamine/Znox 113 GM Tube 1 APPLIC TOPICAL ×2 (05:37→17:09)
[2022-12-03] MEDS: Pantoprazole Sodium 40 MG Tablet PO ×2 (05:37→17:07)
[2022-12-03] MEDS: Ibuprofen 600 MG Tablet PO ×3 (05:37→21:21)
[2022-12-03] MEDS: Iron Polysaccharide Complex 150 MG CAPSULE PO (05:38)
[2022-12-03] MEDS: PARoxetine 10 MG Tablet 30 MG PO (05:38)
[2022-12-03] MEDS: Senna/Docusate Sodium 1 Tablet 2 TABLET PO (05:38)
[2022-12-03] MEDS: tiZANidine HCl 2 MG Tablet PO ×3 (05:38→21:21)
[2022-12-03] MEDS: Nystatin Powder 15gm Bottle 1 APPLIC TOPICAL ×2 (05:40→17:09)
--- NOTE | 2022-12-03 08:21 | PCM.PN.DRR ---
TCU RX Drug Regimen Review Subjective: 72 YOF admitted to TCU in October. Monthly medication list evaluation for November. Objective: Allergies diclofenac [From Voltaren] Allergy (Verified 07/13/22 16:33) Rash hydrocodone [From Vicodin] Adverse Reaction (Verified 07/13/22 16:33) Other Current Medications Generic Name Dose Route Start Last Admin Trade Name Freq PRN Reason Stop Dose Admin Acetaminophen 1,000 mg 11/02/22 19:56 11/30/22 08:00 Acetaminophen 500 Mg Tablet PO 1,000 mg Q6H PRN PRN Administration Pain Score 1-3 Bupropion HCl 150 mg 11/02/22 18:00 12/03/22 05:37 Bupropion (Sr) 150 Mg Tablet.Sa PO 150 mg BID CHIDI Administration Calamine/Phenol 1 applic 11/02/22 18:00 12/03/22 05:37 Menthol/Lanolin/Calamine/Znox 113 Gm Tube TOPICAL 1 applic BID CHIDI Administration Protocol Calcium/Vitamin D 1 tablet 11/02/22 17:00 12/02/22 17:47 Calcium Carb/Vitamin D 1 Tablet Tablet PO 1 tablet BIDCM CHIDI Administration Carvedilol 3.125 mg 11/02/22 17:00 12/02/22 17:47 Carvedilol 3.125 Mg Tablet PO 3.125 mg BIDCM CHIDI Administration Cholecalciferol 25 mcg 11/03/22 08:00 12/02/22 08:26 Cholecalciferol (Vit D3) 25 Mcg Tablet (1,000 Units) PO 25 mcg DAILYCM CHIDI Administration Gabapentin 300 mg 11/02/22 14:02 12/01/22 21:19 Gabapentin 300 Mg Capsule PO 300 mg TID PRN Administration Pain 1-10 Sodium Chloride 250 mls @ 15 mls/hr 11/02/22 23:27 IV .[id number] PRN Saline Flush Sodium Chloride 250 mls @ 15 mls/hr 11/02/22 23:27 IV .[id number] PRN Additional IVPB Infusion Ibuprofen 600 mg 11/02/22 22:00 12/03/22 05:37 Ibuprofen 600 Mg Tablet PO 600 mg Q8 CHIDI Administration Lorazepam 1 mg 11/11/22 23:25 12/02/22 21:15 Lorazepam 0.5 Mg Tablet PO 1 mg Q4H PRN PRN Administration ANXIETY/RESTLESSNESS/SLEEP Magnesium Hydroxide 30 ml 11/02/22 19:55 Magnesium Hydroxide 30 Ml Udc PO X1 PRN Constipation Nystatin 1 applic 11/02/22 18:00 12/03/22 05:40 Nystatin Powder 15gm Bottle TOPICAL 1 applic BID CHIDI Administration Protocol Oxycodone HCl 5 mg 11/02/22 14:02 12/02/22 21:14 Oxycodone 5 Mg Tablet PO 5 mg Q4H PRN PRN Administration Pain Score 4-10 Pantoprazole Sodium 40 mg 11/02/22 18:00 12/03/22 05:37 Pantoprazole Sodium 40 Mg Tablet PO 40 mg BID CHIDI Administration Paroxetine HCl 30 mg 11/03/22 06:00 12/03/22 05:38 Paroxetine 10 Mg Tablet PO 30 mg DAILY CHIDI Administration Polysaccharide Iron Complex 150 mg 11/03/22 06:00 12/03/22 05:38 Iron Polysaccharide Complex 150 Mg Capsule PO 150 mg DAILY CHIDI Administration Rivaroxaban 10 mg 11/04/22 17:00 12/02/22 17:47 Rivaroxaban 10 Mg Tablet PO 12/04/22 17:01 10 mg DINNER CHIDI Administration Senna/Docusate Sodium 2 tablet 11/02/22 20:00 12/03/22 05:38 Senna/Docusate Sodium 1 Tablet PO 2 tablet BID CHIDI Administration Sodium Chloride 10 - 40 ml 11/02/22 23:27 11/10/22 12:08 0.9% Saline Lock 10 Ml Syringe IV 10 ml UD PRN Administration SALINE FLUSH Sodium Chloride 10 - 40 ml 11/03/22 23:35 0.9% Saline Lock 10 Ml Syringe IV UD PRN SALINE FLUSH Sodium Chloride 10 - 40 ml 11/05/22 13:32 0.9% Saline Lock 10 Ml Syringe IV UD PRN SALINE FLUSH Tizanidine HCl 2 mg 11/19/22 14:00 12/03/22 05:38 Tizanidine Hcl 2 Mg Tablet PO 2 mg TID CHIDI Administration Problem List (Last Reviewed 11/02/22 @ 19:[address] Kishan Espinal MD) Osteoporosis (Acute) Neuropathic pain (Acute) Hypokalemia (Acute) Iron deficiency anemia (Acute) Depression (Acute) Chronic systolic (congestive) heart failure (Chronic) GERD (gastroesophageal reflux disease) (Acute) Fracture of left inferior pubic ramus (Acute) Multiple rib fractures (Acute) Fall (Acute) Debility (Acute) Fracture of right tibial plateau (Acute) Vital Signs Temp Pulse Resp BP Pulse Ox O2 Del Method FiO2 97.0 F L 75 14 106/63 96 Room Air 93 12/02/22 15:34 12/02/22 15:34 12/02/22 15:34 12/02/22 15:34 12/02/22 15:34 12/02/22 15:34 11/10/22 07:10 Oxygen Delivery Method Room Air Weight: 85.445 kg Body Mass Index (BMI) 38.0 Sodium 145 mmol/L (136-145) 12/01/22 05:19 Potassium 4.3 mmol/L (3.5-5.1) 12/01/22 05:19 Chloride 111 mmol/L (98-107) H 12/01/22 05:19 Carbon Dioxide 29.0 mmol/L (21.0-32.0) 12/01/22 05:19 Anion Gap 5 (5-15) 12/01/22 05:19 BUN 24 mg/dL (7-18) H 12/01/22 05:19 Creatinine 0.78 mg/dL (0.55-1.02) 12/01/22 05:19 Est GFR (MDRD) Af Amer 92 mL/min (>60) 12/01/22 05:19 Est GFR (MDRD) Non-Af 76 mL/min (>60) 12/01/22 05:19 BUN/Creatinine Ratio 30.6 RATIO (10-20) H 12/01/22 05:19 Glucose 88 mg/dL (74-106) 12/01/22 05:19 Assessment/Plan: 1. Pain: acetaminophen 1000mg PO Q6H PRN pain 1-3, oxycodone 5mg PO Q4H PRN pain 4-10 and ibuprofen 600mg PO Q8. -The Patient's pain over the course of the month appears to be managed appropriately with scheduled and PRN medications. 2. Bowel: senna/docusate 2T PO BID and MOM 30mL PO x1 PRN constipation. Please continue to monitor for constipation and PRN usage. -The patient has had several bowel movements over the course of the month, has been taking medications regularly. 3. CHF: carvedilol 3.125mg PO BID. Please continue to monitor BP (last 100/52), HR (last 75), weight gain, renal function, potassium (last 4.3mmol/L) and cough. 4. Iron deficiency anemia: Ferrex 150mg PO daily. Please continue to monitor hemoglobin (last 10.5g/dL), dark stools and constipation. 5. GERD: pantoprazole 40mg PO BID. Please continue to monitor for S/S of GERD and diarrhea (BEERs medication). 6. Muscle spasm: tizanidine 2mg PO TID. Please continue to monitor BP and dry mouth. 7. Calcium/vitamin D deficiencies: calcium/vitamin D 1T PO BIDCM and cholecalciferol 25mcg PO daily. Please consider ordering a vitamin D level if clinically appropriate. Last vitamin D level from 12/2018. Thanks. Please continue to monitor calcium levels (last 9mg/dL 11/03/22). 8. DVT Prophylaxis: Xarelto 10mg PO Daily thru 12/04/22. Please continue to monitor H/H, S/S bleeding/bruising. 9. Skin Integrity: Calmoseptine topically BID, Nystatin powder topically BID. Please continue to monitor for skin breakdown, skin redness, development of sores. Assessment/Plan for indications treated with psychotropic medications: 1. Depression: bupropion SR 150mg PO BID and paroxetine 30mg PO daily. Please see physician note regarding GDR. Please continue to monitor for suicidal ideation (black box warning), BP (last 116/46), falls/fractures (BEERs criteria, admitted for a fall), delirium/dementia (BEERs criteria) and sodium (last 140mmol/L). 2. Neuropathic pain: gabapentin 300mg PO TID PRN pain 1-10 (may be used in addition to acetaminophen and oxycodone). Please continue to monitor for medication effectiveness, oversedation with use, falls. GDR not appropriate as this medication is for neuropathy. 3. Anxiety/Sleep: Ativan 1mg PO Q4h PRN. Please consider a GDR by 05/2023 if clinically indicated, thank you. Medical chart and medication regimen reviewed. The following medication irregularities or issues were identified: No medication irregularities were identified at time of review. Date of Note:: 12/03/22
[2022-12-03] MEDS: Calcium Carb/Vitamin D 1 TABLET Tablet PO ×2 (08:57→17:07)
[2022-12-03] MEDS: Carvedilol 3.125 MG TABLET PO (08:57)
[2022-12-03] MEDS: Cholecalciferol (VIT D3) 25 MCG TABLET (1,000 UNITS) PO (08:57)
[2022-12-03 16:00] VITALS: BP 108/40; PULSE 70; RESP 16; TEMP 36.3; O2SAT 95
[2022-12-03] MEDS: Rivaroxaban 10 MG Tablet PO (17:09)
[2022-12-03 17:10] VITALS: BP 99/46; PULSE 78
[2022-12-03] MEDS: LORazepam 0.5 MG Tablet 1 MG PO (21:22)
[2022-12-03 22:20] VITALS: PULSE 74; RESP 17; O2SAT 97
[2022-12-04] MEDS: oxyCODONE 5 MG Tablet PO (05:37)
[2022-12-04] MEDS: Menthol/Lanolin/Calamine/Znox 113 GM Tube 1 APPLIC TOPICAL (05:38)
[2022-12-04] MEDS: Ibuprofen 600 MG Tablet PO ×3 (05:38→21:33)
[2022-12-04] MEDS: PARoxetine 10 MG Tablet 30 MG PO (05:39)
[2022-12-04] MEDS: Pantoprazole Sodium 40 MG Tablet PO ×2 (05:39→17:56)
[2022-12-04] MEDS: buPROPion (SR) 150 MG Tablet.SA PO ×2 (05:40→17:55)
[2022-12-04] MEDS: tiZANidine HCl 2 MG Tablet PO ×3 (05:40→21:33)
[2022-12-04] MEDS: Nystatin Powder 15gm Bottle 1 APPLIC TOPICAL ×2 (05:41→17:56)
[2022-12-04] MEDS: Calcium Carb/Vitamin D 1 TABLET Tablet PO ×2 (09:10→17:56)
[2022-12-04] MEDS: Cholecalciferol (VIT D3) 25 MCG TABLET (1,000 UNITS) PO (09:10)
[2022-12-04 14:15] VITALS: BP 111/58; PULSE 77; RESP 14; TEMP 36.1; O2SAT 96
[2022-12-04 15:43] VITALS: PULSE 52; RESP 16; O2SAT 98
[2022-12-04] MEDS: Senna/Docusate Sodium 1 Tablet 2 TABLET PO (17:55)
[2022-12-04] MEDS: Rivaroxaban 10 MG Tablet PO (17:55)
[2022-12-04] MEDS: Carvedilol 3.125 MG TABLET PO (17:56)
[2022-12-04] MEDS: LORazepam 0.5 MG Tablet 1 MG PO (21:33)
[2022-12-05] MEDS: buPROPion (SR) 150 MG Tablet.SA PO ×2 (04:59→17:40)
[2022-12-05] MEDS: Nystatin Powder 15gm Bottle 1 APPLIC TOPICAL ×2 (04:59→17:44)
[2022-12-05] MEDS: Ibuprofen 600 MG Tablet PO ×3 (04:59→20:51)
[2022-12-05] MEDS: PARoxetine 10 MG Tablet 30 MG PO (04:59)
[2022-12-05] MEDS: Pantoprazole Sodium 40 MG Tablet PO ×2 (04:59→17:39)
[2022-12-05] MEDS: tiZANidine HCl 2 MG Tablet PO ×3 (05:00→20:51)
[2022-12-05] MEDS: Menthol/Lanolin/Calamine/Znox 113 GM Tube 1 APPLIC TOPICAL ×2 (05:02→17:44)
[2022-12-05] MEDS: Carvedilol 3.125 MG TABLET PO ×2 (08:19→17:39)
[2022-12-05] MEDS: Cholecalciferol (VIT D3) 25 MCG TABLET (1,000 UNITS) PO (08:19)
[2022-12-05] MEDS: Calcium Carb/Vitamin D 1 TABLET Tablet PO ×2 (08:19→17:40)
[2022-12-05] MEDS: Gabapentin 300 MG Capsule PO (08:19)
[2022-12-05 13:55] VITALS: BP 118/52; PULSE 75; RESP 18; TEMP 36.1; O2SAT 98
[2022-12-05] MEDS: Senna/Docusate Sodium 1 Tablet 2 TABLET PO (17:40)
[2022-12-05 17:50] VITALS: BP 118/49; PULSE 71
[2022-12-05 20:35] VITALS: RESP 16; O2SAT 95
[2022-12-05] MEDS: LORazepam 0.5 MG Tablet 1 MG PO (20:51)
[2022-12-06] MEDS: buPROPion (SR) 150 MG Tablet.SA PO ×2 (05:32→17:19)
[2022-12-06] MEDS: Senna/Docusate Sodium 1 Tablet 2 TABLET PO ×2 (05:32→17:18)
[2022-12-06] MEDS: Pantoprazole Sodium 40 MG Tablet PO ×2 (05:32→17:18)
[2022-12-06] MEDS: PARoxetine 10 MG Tablet 30 MG PO (05:33)
[2022-12-06] MEDS: Ibuprofen 600 MG Tablet PO ×3 (05:33→20:43)
[2022-12-06] MEDS: tiZANidine HCl 2 MG Tablet PO ×3 (05:33→20:44)
[2022-12-06] MEDS: Menthol/Lanolin/Calamine/Znox 113 GM Tube 1 APPLIC TOPICAL ×2 (05:35→18:14)
[2022-12-06] MEDS: Nystatin Powder 15gm Bottle 1 APPLIC TOPICAL ×2 (05:35→18:15)
[2022-12-06] MEDS: Carvedilol 3.125 MG TABLET PO ×2 (07:46→17:18)
[2022-12-06] MEDS: Calcium Carb/Vitamin D 1 TABLET Tablet PO ×2 (07:46→17:18)
[2022-12-06] MEDS: Cholecalciferol (VIT D3) 25 MCG TABLET (1,000 UNITS) PO (07:47)
[2022-12-06 14:40] VITALS: BP 106/58; PULSE 77; RESP 16; TEMP 36.2; O2SAT 93
[2022-12-06] MEDS: Gabapentin 300 MG Capsule PO (20:44)
[2022-12-06] MEDS: LORazepam 0.5 MG Tablet 1 MG PO (20:44)
[2022-12-07] MEDS: PARoxetine 10 MG Tablet 30 MG PO (06:21)
[2022-12-07] MEDS: Pantoprazole Sodium 40 MG Tablet PO ×2 (06:21→17:41)
[2022-12-07] MEDS: buPROPion (SR) 150 MG Tablet.SA PO ×2 (06:21→17:42)
[2022-12-07] MEDS: Ibuprofen 600 MG Tablet PO ×3 (06:22→21:00)
[2022-12-07] MEDS: tiZANidine HCl 2 MG Tablet PO ×3 (06:22→21:01)
[2022-12-07] MEDS: Senna/Docusate Sodium 1 Tablet 2 TABLET PO ×2 (06:22→17:41)
[2022-12-07] MEDS: Nystatin Powder 15gm Bottle 1 APPLIC TOPICAL ×2 (06:23→17:43)
[2022-12-07] MEDS: Menthol/Lanolin/Calamine/Znox 113 GM Tube 1 APPLIC TOPICAL ×2 (06:23→17:43)
[2022-12-07] MEDS: Cholecalciferol (VIT D3) 25 MCG TABLET (1,000 UNITS) PO (08:13)
[2022-12-07] MEDS: Calcium Carb/Vitamin D 1 TABLET Tablet PO ×2 (08:13→17:42)
[2022-12-07 08:15] VITALS: BP 96/38
[2022-12-07 14:29] VITALS: BP 123/64; PULSE 77; RESP 16; TEMP 36.3; O2SAT 94
[2022-12-07 15:14] VITALS: BMI 37.5
[2022-12-07 17:40] VITALS: BP 122/42; PULSE 71; RESP 16
[2022-12-07] MEDS: Carvedilol 3.125 MG TABLET PO (17:42)
[2022-12-07] MEDS: LORazepam 0.5 MG Tablet 1 MG PO (20:59)
[2022-12-07] MEDS: Gabapentin 300 MG Capsule PO (21:00)
[2022-12-07 21:05] VITALS: O2SAT 94
[2022-12-08 05:31] LABS: Absolute Lymphocyte Count 2.56 X10^3/uL (0.83-4.51); Absolute Neutrophil Count 2.1 X10^3/uL (2.0-7.7); Basophil# 0.06 X10^3/uL; Basophil% 1.1 % (0-1); Eosinophil# 0.24 X10^3/uL; Eosinophils% 4.5 % (0-5); Hematocrit 32.5 % (37-47); Hemoglobin 10.1 g/dL (12.0-15.0); Lymphocyte # 2.56 X10^3/ul (0.83-4.51); Lymphocyte % 47.7 % (19-41); Mean Corp Hgb Conc 31.1 g/dL (32-36); Mean Platelet Vol. 9.1 fl (6.2-12.0); Monocyte# 0.38 X10^3/uL; Monocyte% 7.1 % (0-10); NRBC Flagged by Analyzer 0 % (0-5); Neutrophil # 2.12 X10^3/uL (2.7-7.7); Neutrophil % 39.4 % (47-70); Platelet Count 222 K/mm3 (150-450); RBC Distribution Width CV 14.6 % (11.6-14.6); RBC Distribution Width SD 48.5 fl (35.1-43.9); Red Blood Count 3.61 M/mm3 (4.2-5.4); White Blood Count 5.4 K/mm3 (4.4-11.0)
[2022-12-08 05:49] LABS: Anion Gap 4 (5-15); BUN 32 mg/dL (7-18); BUN/Creat Ratio 44.3 RATIO (10-20); Calcium,Total 8.5 mg/dL (8.5-10.1); Chloride 111 mmol/L (98-107); Creatinine, Serum 0.72 mg/dL (0.55-1.02); EST Glomerular Filtration Rate 84 mL/min (>60); Est Glom Filt Rate - Afr Amer 101 mL/min (>60); Estimated Creatinine Clearance 65.74 ml/min; Glucose 89 mg/dL (74-106); Potassium 4.5 mmol/L (3.5-5.1); Sodium Level 144 mmol/L (136-145)
[2022-12-08] MEDS: Ibuprofen 600 MG Tablet PO ×3 (05:57→21:15)
[2022-12-08] MEDS: tiZANidine HCl 2 MG Tablet PO ×3 (05:58→21:15)
[2022-12-08] MEDS: Pantoprazole Sodium 40 MG Tablet PO ×2 (05:58→17:41)
[2022-12-08] MEDS: buPROPion (SR) 150 MG Tablet.SA PO ×2 (05:58→17:41)
[2022-12-08] MEDS: PARoxetine 10 MG Tablet 30 MG PO (05:58)
[2022-12-08] MEDS: Senna/Docusate Sodium 1 Tablet 2 TABLET PO ×2 (05:59→17:40)
[2022-12-08] MEDS: Menthol/Lanolin/Calamine/Znox 113 GM Tube 1 APPLIC TOPICAL ×2 (06:00→17:43)
[2022-12-08] MEDS: Nystatin Powder 15gm Bottle 1 APPLIC TOPICAL ×2 (06:00→17:43)
[2022-12-08 08:03] VITALS: BP 93/40; PULSE 75; RESP 16
[2022-12-08] MEDS: Calcium Carb/Vitamin D 1 TABLET Tablet PO ×2 (08:06→17:41)
[2022-12-08] MEDS: Cholecalciferol (VIT D3) 25 MCG TABLET (1,000 UNITS) PO (08:06)
[2022-12-08 08:56] VITALS: PULSE 98; RESP 16; O2SAT 96
[2022-12-08 13:19] VITALS: BP 106/49; PULSE 80; RESP 14; TEMP 36.1; O2SAT 95
[2022-12-08] MEDS: Carvedilol 3.125 MG TABLET PO (17:42)
[2022-12-08 17:45] VITALS: BP 112/46; PULSE 76
[2022-12-08] MEDS: Gabapentin 300 MG Capsule PO (21:15)
[2022-12-08] MEDS: LORazepam 0.5 MG Tablet 1 MG PO (21:16)
[2022-12-09] MEDS: Senna/Docusate Sodium 1 Tablet 2 TABLET PO ×2 (06:04→17:27)
[2022-12-09] MEDS: buPROPion (SR) 150 MG Tablet.SA PO ×2 (06:05→17:27)
[2022-12-09] MEDS: Ibuprofen 600 MG Tablet PO ×3 (06:05→21:23)
[2022-12-09] MEDS: PARoxetine 10 MG Tablet 30 MG PO (06:05)
[2022-12-09] MEDS: tiZANidine HCl 2 MG Tablet PO ×3 (06:05→21:23)
[2022-12-09] MEDS: Pantoprazole Sodium 40 MG Tablet PO ×2 (06:05→17:26)
[2022-12-09] MEDS: Carvedilol 3.125 MG TABLET PO ×2 (08:29→17:26)
[2022-12-09] MEDS: Calcium Carb/Vitamin D 1 TABLET Tablet PO ×2 (08:29→17:26)
[2022-12-09] MEDS: Cholecalciferol (VIT D3) 25 MCG TABLET (1,000 UNITS) PO (08:30)
[2022-12-09] MEDS: Nystatin Powder 15gm Bottle 1 APPLIC TOPICAL ×2 (08:32→17:26)
[2022-12-09] MEDS: Menthol/Lanolin/Calamine/Znox 113 GM Tube 1 APPLIC TOPICAL ×2 (08:32→17:27)
[2022-12-09 14:12] VITALS: BP 105/49; PULSE 71; RESP 16; TEMP 36.1; O2SAT 98
[2022-12-09 20:15] VITALS: PULSE 72; RESP 16; O2SAT 94
[2022-12-09] MEDS: LORazepam 0.5 MG Tablet 1 MG PO (21:23)
[2022-12-10] MEDS: Pantoprazole Sodium 40 MG Tablet PO ×2 (05:12→17:14)
[2022-12-10] MEDS: Senna/Docusate Sodium 1 Tablet 2 TABLET PO (05:12)
[2022-12-10] MEDS: buPROPion (SR) 150 MG Tablet.SA PO ×2 (05:12→17:14)
[2022-12-10] MEDS: tiZANidine HCl 2 MG Tablet PO ×3 (05:12→23:30)
[2022-12-10] MEDS: PARoxetine 10 MG Tablet 30 MG PO (05:12)
[2022-12-10] MEDS: Ibuprofen 600 MG Tablet PO ×3 (05:13→23:31)
[2022-12-10] MEDS: Menthol/Lanolin/Calamine/Znox 113 GM Tube 1 APPLIC TOPICAL ×2 (05:15→17:13)
[2022-12-10] MEDS: Nystatin Powder 15gm Bottle 1 APPLIC TOPICAL ×2 (05:17→17:14)
[2022-12-10] MEDS: Carvedilol 3.125 MG TABLET PO ×2 (07:55→17:14)
[2022-12-10] MEDS: Calcium Carb/Vitamin D 1 TABLET Tablet PO ×2 (07:55→17:14)
[2022-12-10] MEDS: Cholecalciferol (VIT D3) 25 MCG TABLET (1,000 UNITS) PO (07:55)
[2022-12-10 10:55] VITALS: PULSE 72; RESP 18; O2SAT 98
[2022-12-10 14:02] VITALS: BP 119/66; PULSE 72; RESP 16; TEMP 36.6; O2SAT 91
[2022-12-10] MEDS: LORazepam 0.5 MG Tablet 1 MG PO (17:18)
[2022-12-10] MEDS: Gabapentin 300 MG Capsule PO (23:30)
[2022-12-11] MEDS: Pantoprazole Sodium 40 MG Tablet PO ×2 (06:13→17:22)
[2022-12-11] MEDS: Senna/Docusate Sodium 1 Tablet 2 TABLET PO (06:13)
[2022-12-11] MEDS: tiZANidine HCl 2 MG Tablet PO ×3 (06:13→23:00)
[2022-12-11] MEDS: PARoxetine 10 MG Tablet 30 MG PO (06:13)
[2022-12-11] MEDS: buPROPion (SR) 150 MG Tablet.SA PO ×2 (06:13→17:22)
[2022-12-11] MEDS: Ibuprofen 600 MG Tablet PO ×3 (06:14→23:00)
[2022-12-11] MEDS: Nystatin Powder 15gm Bottle 1 APPLIC TOPICAL ×2 (06:16→23:00)
[2022-12-11] MEDS: Menthol/Lanolin/Calamine/Znox 113 GM Tube 1 APPLIC TOPICAL ×2 (06:18→23:01)
[2022-12-11] MEDS: Calcium Carb/Vitamin D 1 TABLET Tablet PO ×2 (08:35→17:21)
[2022-12-11] MEDS: Cholecalciferol (VIT D3) 25 MCG TABLET (1,000 UNITS) PO (08:36)
[2022-12-11] MEDS: Carvedilol 3.125 MG TABLET PO ×2 (08:40→17:27)
[2022-12-11 08:42] VITALS: BP 100/54; PULSE 77; O2SAT 98
[2022-12-11 16:00] VITALS: PULSE 74; RESP 17; TEMP 37; O2SAT 94
[2022-12-11 17:28] VITALS: BP 110/70
[2022-12-11] MEDS: Gabapentin 300 MG Capsule PO (23:06)
[2022-12-11 23:20] VITALS: O2SAT 96
[2022-12-12] MEDS: tiZANidine HCl 2 MG Tablet PO ×3 (06:39→22:59)
[2022-12-12] MEDS: PARoxetine 10 MG Tablet 30 MG PO (06:40)
[2022-12-12] MEDS: Pantoprazole Sodium 40 MG Tablet PO ×2 (06:40→17:38)
[2022-12-12] MEDS: Ibuprofen 600 MG Tablet PO ×3 (06:41→22:59)
[2022-12-12] MEDS: Senna/Docusate Sodium 1 Tablet 2 TABLET PO ×2 (06:41→17:38)
[2022-12-12] MEDS: buPROPion (SR) 150 MG Tablet.SA PO ×2 (06:42→17:39)
[2022-12-12] MEDS: Menthol/Lanolin/Calamine/Znox 113 GM Tube 1 APPLIC TOPICAL ×2 (06:42→17:37)
[2022-12-12] MEDS: Nystatin Powder 15gm Bottle 1 APPLIC TOPICAL ×2 (06:43→17:37)
[2022-12-12 08:24] VITALS: BP 100/56; PULSE 91
[2022-12-12] MEDS: Carvedilol 3.125 MG TABLET PO ×2 (08:25→17:36)
[2022-12-12] MEDS: Cholecalciferol (VIT D3) 25 MCG TABLET (1,000 UNITS) PO (08:25)
[2022-12-12] MEDS: Calcium Carb/Vitamin D 1 TABLET Tablet PO ×2 (08:25→17:37)
[2022-12-12 10:50] VITALS: PULSE 78; RESP 18; O2SAT 96
[2022-12-12 17:41] VITALS: BP 104/60
[2022-12-12] MEDS: Gabapentin 300 MG Capsule PO (23:11)
--- NOTE | 2022-12-13 04:43 | NURSING ---
LVM for SW, Najma, to update on pt's request to be dc'ed home on Tuesday. Pt feels she has enough support from family and has discussed her goal for dc at the end of the week w/ therapy.
[2022-12-13] MEDS: PARoxetine 10 MG Tablet 30 MG PO (06:13)
[2022-12-13] MEDS: Pantoprazole Sodium 40 MG Tablet PO ×2 (06:13→16:53)
[2022-12-13] MEDS: buPROPion (SR) 150 MG Tablet.SA PO ×2 (06:14→16:53)
[2022-12-13] MEDS: Senna/Docusate Sodium 1 Tablet 2 TABLET PO (06:14)
[2022-12-13] MEDS: tiZANidine HCl 2 MG Tablet PO ×3 (06:15→22:04)
[2022-12-13] MEDS: Ibuprofen 600 MG Tablet PO ×3 (06:15→22:04)
[2022-12-13] MEDS: Menthol/Lanolin/Calamine/Znox 113 GM Tube 1 APPLIC TOPICAL ×2 (06:15→16:53)
[2022-12-13] MEDS: Nystatin Powder 15gm Bottle 1 APPLIC TOPICAL ×2 (06:16→16:53)
[2022-12-13] MEDS: Carvedilol 3.125 MG TABLET PO ×2 (08:21→16:54)
[2022-12-13] MEDS: Calcium Carb/Vitamin D 1 TABLET Tablet PO ×2 (08:21→16:53)
[2022-12-13] MEDS: Cholecalciferol (VIT D3) 25 MCG TABLET (1,000 UNITS) PO (08:21)
[2022-12-13 14:40] VITALS: BP 109/54; PULSE 77; RESP 18; TEMP 36.1; O2SAT 95
--- NOTE | 2022-12-13 15:37 | CASEMGMT ---
Social Work SW spoke with pt about request to DC home. Pt states she has a f/u appt with Dr. Portillo on 12/16 and would like to DC home after. Pt noted that indicated possibly getting increased WBS. SW and ROOM SERVICE RUNNER both suggested for therapy to work with pt a few more sessions if WBS is increased prior to home. Pt agreeable to that suggestion. Pt has all DME at home and would like to use [facility] for home therapy, but requesting services not start until a week after she is home to get her affairs in order. SW and ROOM SERVICE RUNNER advised having HH sooner but those are pt's wishes. SW provided medical alert resources to pt again, per request. Nephew to transport. Plan: Pt has f/u appt with ortho 12/16- if WBS is maintained, DC 12/17. If increased, DC 12/[address] [facility] PT/OT/SW. MOISES phoned referral to [facility] BUTCH Saleem
[2022-12-13 16:55] VITALS: BP 111/63; PULSE 66
--- NOTE | 2022-12-13 20:00 | DS.PCM_ITS ---
Providers Date of Admission: 11/02/22 Primary Care Physician: Dr. Kei Pineda, Consultations 11/18/22 14:07 Consult: Onc/Wound/adventure therapist Routine Comment: Reason for Consult:: Blisters LLE Reason For Visit: FALL/PELVIC AND RIB FRACTURE Diagnosis Discharge Diagnosis (1) Debility: Status: Acute Code(s): R53.81 - Other malaise (2) Fall: Status: Acute Code(s): W19.XXXA - Unspecified fall, initial encounter (3) Multiple rib fractures: Status: Acute Code(s): S22.49XA - Multiple fractures of ribs, unspecified side, initial encounter for closed fracture (4) Fracture of left inferior pubic ramus: Status: Acute Code(s): S32.592A - Other specified fracture of left pubis, initial encounter for closed fracture (5) Fracture of right tibial plateau: Status: Acute Code(s): S82.141A - Displaced bicondylar fracture of right tibia, initial encounter for closed fracture (6) GERD (gastroesophageal reflux disease): Status: Acute Code(s): K21.9 - Gastro-esophageal reflux disease without esophagitis (7) Chronic systolic (congestive) heart failure: Status: Chronic Code(s): I50.22 - Chronic systolic (congestive) heart failure (8) Depression: Status: Acute Code(s): F32.A - Depression, unspecified (9) Iron deficiency anemia: Status: Acute Code(s): D50.9 - Iron deficiency anemia, unspecified (10) Hypokalemia: Status: Acute Code(s): E87.6 - Hypokalemia (11) Neuropathic pain: Status: Acute Code(s): M79.2 - Neuralgia and neuritis, unspecified (12) Osteoporosis: Status: Acute Code(s): M81.0 - Age-related osteoporosis without current pathological fracture Plan 72 year old female with below past medical history hospitalized for fall, multiple rib fractures, left pelvis fracture, right tibial plateau fracture, complicated by urinary retention, admitted to TCU with debility, here for rehabilitation, strengthening, prior to discharge home with family. * Debility - PT/OT. * Pain - Tylenol 1000mg q6h prn pain (1-3), Oxycodone 5mg q4h prn pain (4-10), Ibuprofen 600mg q8h. * Bowel - senna/colace 2 tablets bid, MOM 30ml po x 1 prn. * Adult immunization - Administer pneumonia vaccine, covid19 vaccine, flu vaccine as appropriate. * DVT prophylaxis - Xarelto 10mg daily thru 12/04/2022. 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 * Calcium deficiency - Calcium D 1 tablet bidcm. * Chronic systolic congestive heart failure - Coreg 3.125mg bid. * Neuropathic pain - Gabapentin 300mg tid prn. * Iron deficiency anemia - Ferrex 150mg daily. * Skin irritation - Calmoseptine topical bid. * Tinea corporis - Nystatin powder topical bid. * GERD - Pantoprazole 40mg bid. * Muscle spasm - Tizanidine 2mg tid. * Vitamin D deficiency - D3 25mcg daily. * Anxiety - Ativan 1mg q4h prn. Medications at Discharge Home Medications calcium carbonate 500 mg-vitamin D3 5 mcg (200 unit) tablet 1 tab PO BIDCM supplement 05/09/20 paroxetine HCl 30 mg tablet 30 mg PO DAILY depression 05/09/20 gabapentin 300 mg capsule 300 mg PO TID PRN Pain 01/26/21 acetaminophen 500 mg tablet 1,000 mg PO Q8 PRN Pain 10/29/22 bupropion HCl 150 mg tablet,12 hr sustained-release 150 mg PO BID mood 11/02/22 carvedilol 3.125 mg tablet 3.125 mg PO BIDCM heart 11/02/22 cholecalciferol (vitamin D3) 25 mcg (1,000 unit) tablet 25 mcg PO DAILY supplement 11/02/22 ibuprofen 600 mg tablet 600 mg PO Q8 pain 11/02/22 menthol 0.44 %-zinc oxide 20.6 % topical ointment (Calmoseptine) 1 applic topical BID skin protection 11/02/22 polysaccharide iron complex 150 mg iron capsule (Ferrex) 150 mg PO DAILYCM supplement 11/02/22 pantoprazole 40 mg tablet,delayed release 40 mg PO BID 30 days #60 tabs 12/13/22 tizanidine 2 mg tablet 2 mg PO TID 30 days #90 tabs 12/13/22 Hospital Course Operations None Procedures None Summary of Care Provided Minutes Spent on Discharge: 35 Hospital Course: 72 year old female with below past medical history hospitalized for fall, multiple rib fractures, left pelvis fracture, right tibial plateau fracture, complicated by urinary retention, admitted to TCU with debility, here for rehabilitation, strengthening, prior to discharge home with family. 11/11/2022 Resident spouse in hospice care. Discharge home 12/17/2022 if weight bearing status unchanged, discharge home 12/19/2022 if weight bearing status advanced, [facility] PT/OT/SW. Physical Exam Const alert General Appearance: cooperative HEENT normocephalic Eyes PERRL and EOMs intact bilaterally Neck supple, no JVD and no carotid bruits Resp normal respiratory effort, normal air movement and clear to auscultation bilaterally Cardio regular rate and regular rhythm GI normal to inspection, nondistended, normoactive bowel sounds, non-tender and non-distended Extremity normal capillary refill General Extremity: Negative for edema Skin no rashes or lesions noted General Skin Exam: no breakdown Psych affect normal Appearance: appropriate Medical Records Data Medical Nutrition Assessment Dietitian: Malnutrition Criteria Met Start: 11/10/22 13:39 Freq: Status: Active Protocol: Document 11/17/22 14:01 OREN (Rec: 11/17/22 14:01 [facility] [id number]) Nutrition Malnutrition Evidence of Malnutrition Exists Yes Malnutrition (severe): Acute Illness/Injury Evidenced By Suboptimal Energy Intake ( Severe),Weight Loss (Severe) Intake Problem Inadequate Oral Intake Status Inactive Problem Clinical Problem Acute Disease or Injury Related Malnutrition Etiology related to GI dysfunction making it difficult to consume adequate po intake and recent passing of spouse Signs/Symptoms as evidenced by unintentional wt loss of 3.1% since last review, LBM 11/15/22 and eating <50% x > 5 days Status Active Problem Recommendation Dietitian Recommendations/Changes Will change diet to liberal Regular d/t signs/symptoms of malnutrition and recent passing of spouse. Will follow and monitor for changes in res nutritional status Weight / BMI Weight Weight: 84.368 kg Body Mass Index (BMI) 37.5 ABG / Lab / Microbiology Data Result Diagrams: 12/08/22 05:13 12/08/22 05:13 Microbiology: Microbiology 11/06/22 12:08 Nasal Secretion SARS-CoV-2 Antigen (Rapid) - Final 11/04/22 05:42 Nasal Secretion SARS-CoV-2 Antigen (Rapid) - Final D/C Instructions Discharge Diet: No restrictions Discharge Activity: Return to Normal Activity, May Shower and Use Walker Weight Bearing Status: Weight bearing as tolerated (Left lower extremity.) and No weight bearing (Bilateral upper extremities.) Call your doctor if you observe: Fever of 101 or Higher, Inability to urinate, Inability to have a bowel movement, Shortness of breath, Dizziness, Fainting spells, Swelling in the ankles, Chest pain and Uncontrolled pain Additional Instructions: Discharge home 12/17/2022 if weight bearing status unchanged, discharge home 12/19/2022 if weight bearing status advanced, [facility] PT/OT/SW. Please Follow Up With: Logan Portillo MD When: 12/16/2022. Meaningful Use Info Meaningful Use Diagnoses (Choose all that apply): None applicable Discharge Plan Admission Admit Date/Time: 11/02/22 13:40 Primary Reason for Your Visit: Debility. Attending Provider: Kishan Espinal Chi Primary Care Provider: Kei Pineda Instructions Additional Instructions / Restrictions: Discharge home 12/17/2022 if weight bearing status unchanged, discharge home 12/19/2022 if weight bearing status advanced, [facility] PT/OT/SW. Discharge Orders/Prescriptions Prescriptions: New tizanidine 2 mg Tablet 2 mg PO TID 30 Days Qty: 90 0RF pantoprazole 40 mg Tablet,Delayed Release (Dr/Ec) 40 mg PO BID 30 Days Qty: 60 0RF Continued gabapentin 300 mg capsule 300 mg PO TID PRN (Reason: Pain) paroxetine HCl 30 MG tablet 30 mg PO DAILY calcium carbonate-vitamin D3 1 TABLET tablet 1 tab PO BIDCM acetaminophen 500 MG tablet 1,000 mg PO Q8 PRN (Reason: Pain) bupropion HCl 150 mg tablet sustained-release 12 hr 150 mg PO BID polysaccharide iron complex [Ferrex 150] 150 mg iron capsule 150 mg PO DAILYCM carvedilol 3.125 mg tablet 3.125 mg PO BIDCM ibuprofen 600 mg tablet 600 mg PO Q8 cholecalciferol (vitamin D3) 25 mcg (1,000 unit) tablet 25 mcg PO DAILY menthol-zinc oxide [Calmoseptine] 0.44-20.6 % ointment 1 applic topical BID Protocol: *Topical Application Instructions APPLICATION INSTRUCTIONS: affected areas Discontinued lisinopril 2.5 mg tablet 2.5 mg PO DAILY Rx Instructions: TAKE 1 TABLET BY MOUTH DAILY oxycodone 5 mg Tablet 5 mg PO Q4H PRN PRN (Reason: Pain Score 4-5) 2 Days Qty: 10 0RF tizanidine 2 mg tablet 4 mg PO TID pantoprazole 40 mg tablet,delayed release (DR/EC) 40 mg PO BID nystatin [Nyamyc] 100,000 unit/gram powder 1 applic topical BID Protocol: *Topical Application Instructions APPLICATION INSTRUCTIONS: Abdominal folds, groin Referrals / Follow Up: Kei Pineda DO [Primary Care Provider] - Disposition Disposition (needs filled in before D/C Order can be placed): Home Health trudy
[2022-12-13] MEDS: LORazepam 0.5 MG Tablet 1 MG PO (22:03)
[2022-12-13] MEDS: Gabapentin 300 MG Capsule PO (22:04)
[2022-12-13 22:30] VITALS: O2SAT 94
[2022-12-14] MEDS: Pantoprazole Sodium 40 MG Tablet PO ×2 (06:37→18:05)
[2022-12-14] MEDS: Senna/Docusate Sodium 1 Tablet 2 TABLET PO ×2 (06:37→18:05)
[2022-12-14] MEDS: tiZANidine HCl 2 MG Tablet PO ×3 (06:37→21:45)
[2022-12-14] MEDS: buPROPion (SR) 150 MG Tablet.SA PO ×2 (06:37→18:05)
[2022-12-14] MEDS: Ibuprofen 600 MG Tablet PO ×3 (06:38→21:45)
[2022-12-14] MEDS: PARoxetine 10 MG Tablet 30 MG PO (06:38)
[2022-12-14] MEDS: Menthol/Lanolin/Calamine/Znox 113 GM Tube 1 APPLIC TOPICAL ×2 (06:40→18:07)
[2022-12-14] MEDS: Nystatin Powder 15gm Bottle 1 APPLIC TOPICAL ×2 (06:40→18:07)
[2022-12-14] MEDS: Carvedilol 3.125 MG TABLET PO ×2 (08:23→18:05)
[2022-12-14] MEDS: Calcium Carb/Vitamin D 1 TABLET Tablet PO ×2 (08:23→18:05)
[2022-12-14] MEDS: Cholecalciferol (VIT D3) 25 MCG TABLET (1,000 UNITS) PO (08:23)
[2022-12-14 10:21] VITALS: BMI 37.6
[2022-12-14 14:45] VITALS: BP 106/53; PULSE 73; RESP 16; TEMP 36.3; O2SAT 95
[2022-12-14] MEDS: Gabapentin 300 MG Capsule PO (21:47)
[2022-12-15] MEDS: Menthol/Lanolin/Calamine/Znox 113 GM Tube 1 APPLIC TOPICAL ×2 (05:24→20:39)
[2022-12-15] MEDS: Senna/Docusate Sodium 1 Tablet 2 TABLET PO (05:25)
[2022-12-15] MEDS: Pantoprazole Sodium 40 MG Tablet PO ×2 (05:25→17:33)
[2022-12-15] MEDS: Nystatin Powder 15gm Bottle 1 APPLIC TOPICAL ×2 (05:25→20:40)
[2022-12-15] MEDS: Ibuprofen 600 MG Tablet PO ×3 (05:25→21:27)
[2022-12-15] MEDS: buPROPion (SR) 150 MG Tablet.SA PO ×2 (05:25→17:33)
[2022-12-15] MEDS: PARoxetine 10 MG Tablet 30 MG PO (05:26)
[2022-12-15] MEDS: tiZANidine HCl 2 MG Tablet PO ×3 (05:26→21:27)
[2022-12-15] MEDS: Cholecalciferol (VIT D3) 25 MCG TABLET (1,000 UNITS) PO (08:22)
[2022-12-15] MEDS: Calcium Carb/Vitamin D 1 TABLET Tablet PO ×2 (08:22→17:32)
[2022-12-15] MEDS: Carvedilol 3.125 MG TABLET PO ×2 (08:25→17:32)
[2022-12-15 08:27] VITALS: BP 104/60; PULSE 75; O2SAT 97
[2022-12-15 14:49] VITALS: BP 118/55; PULSE 74; RESP 18; TEMP 36.1; O2SAT 96
[2022-12-15 20:30] VITALS: PULSE 76; RESP 18; O2SAT 95
[2022-12-15] MEDS: Gabapentin 300 MG Capsule PO (21:27)
[2022-12-16] MEDS: PARoxetine 10 MG Tablet 30 MG PO (05:08)
[2022-12-16] MEDS: Pantoprazole Sodium 40 MG Tablet PO ×2 (05:08→18:18)
[2022-12-16] MEDS: buPROPion (SR) 150 MG Tablet.SA PO ×2 (05:08→18:18)
[2022-12-16] MEDS: tiZANidine HCl 2 MG Tablet PO ×3 (05:08→20:30)
[2022-12-16] MEDS: Ibuprofen 600 MG Tablet PO ×3 (05:08→20:30)
[2022-12-16] MEDS: Nystatin Powder 15gm Bottle 1 APPLIC TOPICAL ×2 (05:09→18:18)
[2022-12-16] MEDS: Menthol/Lanolin/Calamine/Znox 113 GM Tube 1 APPLIC TOPICAL ×2 (05:09→18:18)
[2022-12-16] MEDS: Calcium Carb/Vitamin D 1 TABLET Tablet PO ×2 (07:59→18:18)
[2022-12-16] MEDS: Carvedilol 3.125 MG TABLET PO ×2 (07:59→18:18)
[2022-12-16] MEDS: Cholecalciferol (VIT D3) 25 MCG TABLET (1,000 UNITS) PO (07:59)
--- NOTE | 2022-12-16 10:02 | NURSING ---
Pt left unit for f/u appointment with Dr. Portillo with nephew at [id number]
--- NOTE | 2022-12-16 10:57 | NURSING ---
Pt returned from f/u appointment at 1050, new orders for WBAT to BUE and BLE and ROM as tolerated BUE and BLE
--- NOTE | 2022-12-16 12:51 | CASEMGMT ---
Social Work Pt returned from ortho appt and received WBS, however, pt is still requesting to DC home. Pt stated ortho made PT appts for pt to return. SW clarified pt would not want HHC and to start with [facility] PT. Pt confirmed. SW and IDT agreed to DC 12/17. Nephew to transport. Plan: DC home with support 12/17, [facility] Najma Strickland, TRAIN STATION AGENT CONSTRUCTION HELPER
[2022-12-16 13:51] VITALS: BP 129/48; PULSE 57; RESP 16; TEMP 36.6; O2SAT 93
[2022-12-16 18:19] VITALS: BP 116/50; PULSE 81
[2022-12-16] MEDS: Gabapentin 300 MG Capsule PO (20:30)
[2022-12-16 20:33] VITALS: PULSE 71; RESP 17; O2SAT 96
[2022-12-17] MEDS: Menthol/Lanolin/Calamine/Znox 113 GM Tube 1 APPLIC TOPICAL (06:38)
[2022-12-17] MEDS: Nystatin Powder 15gm Bottle 1 APPLIC TOPICAL (06:38)
[2022-12-17] MEDS: Pantoprazole Sodium 40 MG Tablet PO (06:39)
[2022-12-17] MEDS: tiZANidine HCl 2 MG Tablet PO (06:39)
[2022-12-17] MEDS: buPROPion (SR) 150 MG Tablet.SA PO (06:39)
[2022-12-17] MEDS: Ibuprofen 600 MG Tablet PO (06:39)
[2022-12-17] MEDS: LORazepam 0.5 MG Tablet 1 MG PO (06:39)
[2022-12-17] MEDS: Iron Polysaccharide Complex 150 MG CAPSULE PO (06:39)
[2022-12-17] MEDS: PARoxetine 10 MG Tablet 30 MG PO (06:40)
[2022-12-17] MEDS: Cholecalciferol (VIT D3) 25 MCG TABLET (1,000 UNITS) PO (08:53)
[2022-12-17] MEDS: Calcium Carb/Vitamin D 1 TABLET Tablet PO (08:53)
[2022-12-17] MEDS: Carvedilol 3.125 MG TABLET PO (08:53)
[2022-12-17 09:02] VITALS: BP 118/68; PULSE 74; RESP 16; TEMP 36.9; O2SAT 93
[2022-12-17 11:07] VITALS: BP 118/68; PULSE 74; RESP 16; TEMP 36.9; O2SAT 93
--- NOTE | 2022-12-17 12:51 | CASEMGMT ---
Social Work BIMS () and PHQ-9 (10/04) completed for MDS assessment. Najma Strickland MSW PARKS WORKER
== END 2022-12-17 11:10 | disposition home or self-care (01) | DRG 560 ==
PROVIDERS: Admitting Provider Family Medicine Geriatric Medicine; PCP Student in an Organized Health Care Education/Training Program; Referring Provider Family Medicine Geriatric Medicine; Visit Provider Family Medicine Geriatric Medicine
DX: S32.592D Other specified fracture of left pubis, subsequent encounter for fracture with routine healing (principal); I42.0 Dilated cardiomyopathy; I50.22 Chronic systolic (congestive) heart failure; I11.0 Hypertensive heart disease with heart failure; G62.9 Polyneuropathy, unspecified; D50.9 Iron deficiency anemia, unspecified; E55.9 Vitamin D deficiency, unspecified; B35.4 Tinea corporis; J44.9 Chronic obstructive pulmonary disease, unspecified; E87.6 Hypokalemia; K21.9 Gastro-esophageal reflux disease without esophagitis; W19.XXXD Unspecified fall, subsequent encounter; G47.33 Obstructive sleep apnea (adult) (pediatric); F41.9 Anxiety disorder, unspecified; F32.A Depression, unspecified; Z87.891 Personal history of nicotine dependence; S42.302D Unspecified fracture of shaft of humerus, left arm, subsequent encounter for fracture with routine healing; S22.49XD Multiple fractures of ribs, unspecified side, subsequent encounter for fracture with routine healing; S82.141D Displaced bicondylar fracture of right tibia, subsequent encounter for closed fracture with routine healing; Z79.899 Other long term (current) drug therapy; R33.9 Retention of urine, unspecified; Z23 Encounter for immunization; E66.9 Obesity, unspecified; Z68.38 Body mass index [BMI] 38.0-38.9, adult
CPT/HCPCS: 0124A; 36415; 80048; 85025; 87426; 87811; 91312; 97110; 97112; 97162; 97166; 97530; 97535; 97802; J7030; J7040; 90686; A4216

== ENCOUNTER 2023-03-18 14:58 | Emergency (ER) | payer MEDICARE, OTHER, SELFPAY ==
[2023-03-18 15:01] VITALS: BP 89/45; PULSE 67; RESP 14; TEMP 35.8; O2SAT 93; BMI 35.7
[2023-03-18 15:07] VITALS: BP 95/46; PULSE 67; RESP 14; O2SAT 94
--- NOTE | 2023-03-18 15:27 | ED.RN ---
Patient made comment she may have taken an extra dose of 'heart medication also, patient unsure which medication it was. She states she isn't sure what she took this morning but knows it was her gabapentin and a heart medication only. Dr. Thomsa aware, also made aware blood pressures remained soft prior to patient being seen by physician.
--- NOTE | 2023-03-18 15:47 | CT_ITS ---
EXAM: CT HEAD WITHOUT INTRAVENOUS CONTRAST CLINICAL INDICATION: fall, head injury TECHNIQUE: Multiple axial images were obtained of the head without intravenous contrast. This CT exam was performed using one or more of the following dose reduction techniques: automated exposure control, adjustment of the mA and/or kV according to patient size, and/or use of iterative reconstruction technique. COMPARISON: CT Head dated 10/29/2022 FINDINGS: BRAIN AND EXTRA-AXIAL SPACES: No hemorrhage or mass effect. No acute ischemia. Areas of diminished white matter density noted within both cerebral hemispheres suggestive of chronic microvascular change. Prominence of the cortical sulci and ventricles related to volume loss change. BONES/JOINTS: No suspicious lytic or blastic abnormality. SINUSES: No acute sinusitis. MASTOID AIR CELLS: Normal. Clear. CT/Brain/Head without Contrast IMPRESSION: 1. No acute intracranial abnormality. 2. Stable senescent changes. Electronically Signed: Speedy Carney MD at 16:42 EDT ,
--- NOTE | 2023-03-18 15:49 | EKG12_ITS ---
Test Reason : FALL Blood Pressure : / mmHG Vent. Rate : 062 BPM Atrial Rate : 062 BPM P-R Int : 144 ms QRS Dur : 096 ms QT Int : 454 ms P-R-T Axes : 022 -39 -12 degrees QTc Int : 460 ms Normal sinus rhythm Left axis deviation Low voltage QRS Nonspecific T wave abnormality Abnormal ECG Confirmed by CECILIO TAFOYA, SIERRA ([id number]), avid editor MARY DE LEON ([id number]) on 03/28/2023 6:56:20 AM Referred By: Confirmed By:SIERRA HERNANDES MD
--- NOTE | 2023-03-18 15:52 | CT_ITS ---
EXAM: CT CERVICAL SPINE WITHOUT INTRAVENOUS CONTRAST CLINICAL INDICATION: trauma TECHNIQUE: Helically acquired images were obtained of the cervical spine without intravenous contrast. 2D reformatted images were reviewed. This CT exam was performed using one or more of the following dose reduction techniques: automated exposure control, adjustment of the mA and/or kV according to patient size, and/or use of iterative reconstruction technique. COMPARISON: Prior study not available FINDINGS: VERTEBRAE: Mild anterior listhesis of C3 on C4 related to underlying degenerative change. No acute fracture or subluxation. DISCS/SPINAL CANAL/NEURAL FORAMINA: Multilevel disc space narrowing and facet arthropathy. No significant spinal or neural foraminal stenosis. SOFT TISSUES: Normal. No prevertebral soft tissue swelling. LYMPH NODES: Normal. No cervical adenopathy. LUNG APICES: Unremarkable as visualized. CT/Spine Cervical without Contras IMPRESSION: No acute cervical spine injury. Moderate diffuse spondylosis. Electronically Signed: Speedy Carney MD at 16:44 EDT ,
--- NOTE | 2023-03-18 15:53 | ED.VIS.FALL ---
HPI HPI - Fall History of Present Illness Chief Complaint: Fall Informant: patient Narrative Narrative: Patient is a 72-year-old female with history of hypertension, systolic heart failure, neuropathy and multiple fractures over the years requiring multiple extended TCU stays presenting for evaluation after a fall. Patient states she was heading back inside after going on a shopping trip with her grandson jere who lives with her). She was using her walker to go up 1 step when she thinks she must have lost her balance and fell. She did hit her head. She landed on her right side. She denies any loss of conscious. She is not on any blood thinners. She is mostly complaining of pain in her right elbow. She does note that she has frequent falls and often gets dizzy. This morning she was little dizzy and confused but got better throughout the day with drinking water. She knows that she had issues with low blood pressure in the past and has been told that she needs to drink more water. She notes that she took a as needed gabapentin pill this morning but thinks that maybe she actually took a blood pressure pill. Patient cannot recall the exact medication she is on but states it should be up-to-date in her computer. Patient does note recently she has had a mild cough. Denies any chest pain shortness of breath or dyspnea on exertion. Denies any change in her bowels. Sometimes she does get dry heaves. States she cannot draw it because she has a history of gastric bypass. Has had urinary frequency but denies any dysuria or hematuria. Denies any fever or chills. No other complaints at this time [facility] Medical History (Updated 03/19/23 @ 00:[address] Evangelina Thomas, ) Anemia Bilateral pleural effusion Broken shoulder Closed fracture of right distal humerus COPD (chronic obstructive pulmonary disease) Depression Dilated cardiomyopathy Essential hypertension GERD (gastroesophageal reflux disease) Obesity Obstructive sleep apnea Osteoarthritis Osteoporosis Home Medications calcium carbonate 500 mg-vitamin D3 5 mcg (200 unit) tablet 1 tab PO BIDCM supplement 05/09/20 [History Last Taken 10/28/22] paroxetine HCl 30 mg tablet 30 mg PO DAILY depression 05/09/20 [History Last Taken 10/29/22] gabapentin 300 mg capsule 300 mg PO TID PRN Pain 01/26/21 [History Last Taken 10/26/22] acetaminophen 500 mg tablet 1,000 mg PO Q8 PRN Pain 10/29/22 [History Last Taken Unknown] bupropion HCl 150 mg tablet,12 hr sustained-release 150 mg PO BID mood 11/02/22 [History Last Taken Unknown] carvedilol 3.125 mg tablet 3.125 mg PO BIDCM heart 11/02/22 [History Last Taken Unknown] cholecalciferol (vitamin D3) 25 mcg (1,000 unit) tablet 25 mcg PO DAILY supplement 11/02/22 [History Last Taken Unknown] ibuprofen 600 mg tablet 600 mg PO Q8 pain 11/02/22 [History Last Taken Unknown] menthol 0.44 %-zinc oxide 20.6 % topical ointment (Calmoseptine) 1 applic topical BID skin protection 11/02/22 [History Last Taken Unknown] polysaccharide iron complex 150 mg iron capsule (Ferrex) 150 mg PO DAILYCM supplement 11/02/22 [History Last Taken Unknown] pantoprazole 40 mg tablet,delayed release 40 mg PO BID 30 days #60 tabs 12/13/22 [Rx Last Taken Unknown] tizanidine 2 mg tablet 2 mg PO TID 30 days #90 tabs 12/13/22 [Rx Last Taken Unknown] Allergy/AdvReac Type Severity Reaction Status Date / Time diclofenac [From Voltaren] Allergy Rash Verified 03/18/23 15:12 hydrocodone [From Vicodin] AdvReac Other Verified 03/18/23 15:12 Family History Mother Diabetes Heart disease Hypertension Hyperlipidemia Father Diabetes Heart disease Hypertension Hyperlipidemia Surgical History History of History of gastric bypass History of herniorrhaphy History of left heart catheterization (12/05/18) History of open reduction and internal fixation (ORIF) procedure History of open reduction and internal fixation (ORIF) procedure History of tonsillectomy Hx of cholecystectomy Social History household members: family Smoking Status: Former smoker alcohol intake: never substance use type: does not use ROS ROS ED Constitutional Constitutional ED: Reports other Details: Dizziness ; Denies chills or fever(s) Eyes Eyes: Denies change in vision Cardiovascular Cardiovascular: Denies chest pain Respiratory/Chest Respiratory/Chest: Denies cough Gastrointestinal Gastrointestinal: Reports nausea; Denies abdominal pain, constipation, diarrhea, melena or vomiting Musculoskeletal Musculoskeletal: Reports other Details: Right elbow pain ; Denies back pain or neck pain Integumentary Denies Abrasions or rash Neurologic Neurologic: Reports weakness; Denies paresthesias Psychiatric Psychiatric: Denies anxiety Hematologic/Lymphatic Hematologic/Lymphatic: Denies easy bleeding or easy bruising EXAM Physical Exam Const Vital Signs: 03/18/23 15:01 03/18/23 15:04 03/18/23 15:07 Temperature 96.4 F L Temperature Source Temporal Pulse Rate 67 67 Respiratory Rate 14 14 Respiratory Effort Normal Non-Labored Respiratory Depth Normal Respiratory Pattern Normal Blood Pressure 89/45 L 95/46 L Blood Pressure Mean 59 62 Pulse Ox 93 94 Oxygen Delivery Method Room Air Room Air 03/18/23 17:35 03/18/23 18:37 03/18/23 21:59 Temperature Temperature Source Pulse Rate 74 82 Respiratory Rate 16 18 Respiratory Effort Respiratory Depth Respiratory Pattern Blood Pressure 143/62 H 119/51 L 141/61 H Blood Pressure Mean 89 73 87 Pulse Ox 99 96 Oxygen Delivery Method Room Air Room Air Positive well nourished and well developed General Appearance ED: well developed and NAD HEENT Reports normocephalic and TM's normal bilaterally atraumatic Eyes PERRL and EOMs intact bilaterally Neck full ROM and supple Neck Narrative: No midline tenderness, no step-off sign Chest Wall inspection of chest normal Resp normal respiratory effort and clear to auscultation bilaterally Cardio regular rate, regular rhythm and no murmurs Cardio Narrative: 2+ radial pulses bilaterally GI non-tender and non-distended Palpation: soft Extremity Extremity Narrative: No obvious deformity. Right upper extremity patient has diffuse pain of her right elbow. Difficult to localize the area of maximum pain. Decreased range of motion secondary to pain. No significant tenderness palpation of the forearm, wrist or fingers. Intact movements of the hand. No pinpoint tenderness of the proximal humerus however not able to perform range of motion of the shoulder due to her elbow pain. Neuro oriented x3, moves all extremities, no focal motor deficits and no sensory deficits noted [place] Coma Scale: document GCS findings Spontaneous Obeys Commands Oriented 15 Sensorium / Orientation: alert Psych mental status grossly normal and thought process normal Skin Lesions: no lesions Rashes: no rashes MDM MDM MDM Narrative Medical decision making narrative: Patient is evaluated after what sounds like a mechanical fall however is compounded by the fact that he has been having episodes of dizziness. She is hypotensive upon arrival. She is given small boluses of fluid which she does respond to for her blood pressure (has a history of systolic heart failure). We will obtain a work-up looking for traumatic injuries including CT of her brain, cervical spine and x-ray of the right humerus/elbow in addition to metabolic/cardiac work-up looking for cause of her increased weakness. Differential includes but not limited to symptomatic anemia, volume depletion, infectious etiology, right upper extremity fracture and intracranial hemorrhage. Patient is fluid responsive with her blood pressure. She has a mild but stable anemia with a hemoglobin of 11.0. No leukocytosis. CMP largely normal/at her baseline. CT of the head and cervical spine do not show any acute process or fracture. Patient does have distal humerus fracture with involvement of the intracondylar and supracondylar portion and lateral condyle displaced laterally. This is discussed with our orthopedics who did not feel comfortable repairing this. Patient will require admission for debility standpoint as she is walker dependent and now cannot use her arm in addition to her presentation of low blood pressures, dizziness/hypotension. Possible is that she could have a component of polypharmacy/taking too much of her medications. She is ultimately found to also have a urinary tract infection. Urine culture sent she is given a dose of IV Rocephin. Discussed with the transfer line at [facility] and they do not have any capacity to accept her as a transfer. I then spoke with [facility] and ultimately patient is excepted ED to ED with Dr. Villarreal. Dr. Mcpherson, orthopedic on-call, would like her evaluated by trauma first given her mechanism. Patient and family agreeable this plan of care however patient is quite upset about the idea of going back into the hospital. Patient does require multiple doses of fentanyl and then morphine for pain control in the ER for her fracture. She does remain neurovascular intact. Sugar-tong splint applied by myself for stabilization on the right upper extremity. Lab Data Attestation: I reviewed the patient's lab results. Labs: Laboratory Results - last 24 hr 03/18/23 03/18/23 03/18/23 16:02 18:33 22:29 WBC 6.0 RBC 4.07 L Hgb 11.0 L Hct 36.7 L MCV 90.2 MCH 27.0 MCHC 30.0 L RDW Std Deviation 46.4 H RDW Coeff of Joe 14.0 Plt Count 223 MPV 10.0 Immature Gran % (Auto) 0.300 Neut % (Auto) 63.1 Lymph % (Auto) 29.8 Giles % (Auto) 5.8 Eos % (Auto) 0.5 Baso % (Auto) 0.5 Absolute Neuts (auto) 3.8 Absolute Lymphs (auto) 1.79 Nucleated RBC % 0 Sodium Cancelled 139 Potassium Cancelled 4.1 Chloride Cancelled 106 Carbon Dioxide Cancelled 28.0 Anion Gap Cancelled 5 BUN Cancelled 18 Creatinine Cancelled 1.02 Estim Creat Clear Calc Cancelled 34.76 Est GFR (MDRD) Af Amer Cancelled 68 Est GFR (MDRD) Non-Af Cancelled 56 L BUN/Creatinine Ratio Cancelled 17.6 Glucose Cancelled 93 Calcium Cancelled 9.1 Total Bilirubin Cancelled 0.60 AST Cancelled 21 ALT Cancelled 14 Alkaline Phosphatase Cancelled 139 H Troponin I High Sens Cancelled 10 B-Natriuretic Peptide 40.4 Total Protein Cancelled 6.7 Albumin Cancelled 3.6 Globulin Cancelled 3.1 Albumin/Globulin Ratio Cancelled 1.2 Urine Color Yellow Urine Clarity Cloudy Urine pH 6.0 Ur Specific [place] 1.015 Urine Protein 15 H Urine Glucose (UA) Normal Urine Ketones 15 H Urine Occult Blood 10 H Urine Nitrite Negative Urine Bilirubin Negative Urine Urobilinogen 4 H Ur Leukocyte Esterase 500 H Urine RBC 0-5 SEEN Urine WBC 10-25 SEEN Ur Squamous Epith Cells 0-5 SEEN Amorphous Sediment 1+ URATE Urine Bacteria 3+ Urine Mucus 0 SEEN Radiography Diagnostic Testing: Clinical Impression(s) from Imaging Studies Brain CT 03/18/23 15:47 IMPRESSION: 1. No acute intracranial abnormality. 2. Stable senescent changes. Electronically Signed: Speedy Carney MD at 16:42 EDT , Cervical Spine CT 03/18/23 15:52 IMPRESSION: No acute cervical spine injury. Moderate diffuse spondylosis. Electronically Signed: Speedy Carney MD at 16:44 EDT , Chest X-Ray 03/18/23 16:20 IMPRESSION: No acute disease Electronically Signed: Arian Nixon MD at 17:13 EDT , Elbow X-Ray 03/18/23 16:20 IMPRESSION: Acute comminuted fracture of the distal humerus. Electronically Signed: Speedy Carney MD at 16:51 EDT , Humerus X-Ray 03/18/23 16:20 IMPRESSION: Acute fracture of the distal humerus. Electronically Signed: Speedy Carney MD at 16:52 EDT , Rhythm Strip Rhythm Strip: Sinus Rhythm Rate: 62 Ectopy: None EKG Initial EKG: Attestation: I personally reviewed and interpreted this EKG as follows: Interpretation: Sinus Rhythm Comments: Normal sinus rhythm rate of 62 bpm Left axis deviation Low voltage QRS Normal intervals Nonspecific T wave changes Prior EKG tracings: available for review Prior: Changed (Resolution of first-degree AV block and improved T wave changes in the lateral leads) Procedures Upper Extremity Splints Upper Extremity Splint: Orthoglass and - (sugar tong ) Splint Fabrication: Fabricated Location: Right Discharge Plan Triage Chief Complaint: Fall Other Complaint: Upper Extremity Injury ED Provider: Evangelina Thomas Dx/Rx/DC Orders Clinical Impression: Hypotension, Debility, Acute UTI, Closed fracture distal humerus, lateral epicondyle Prescriptions: No Action gabapentin 300 mg capsule 300 mg PO TID PRN (Reason: Pain) paroxetine HCl 30 MG tablet 30 mg PO DAILY calcium carbonate-vitamin D3 1 TABLET tablet 1 tab PO BIDCM acetaminophen 500 MG tablet 1,000 mg PO Q8 PRN (Reason: Pain) bupropion HCl 150 mg tablet sustained-release 12 hr 150 mg PO BID polysaccharide iron complex [Ferrex 150] 150 mg iron capsule 150 mg PO DAILYCM carvedilol 3.125 mg tablet 3.125 mg PO BIDCM ibuprofen 600 mg tablet 600 mg PO Q8 cholecalciferol (vitamin D3) 25 mcg (1,000 unit) tablet 25 mcg PO DAILY menthol-zinc oxide [Calmoseptine] 0.44-20.6 % ointment 1 applic topical BID Protocol: *Topical Application Instructions APPLICATION INSTRUCTIONS: affected areas tizanidine 2 mg Tablet 2 mg PO TID 30 Days Qty: 90 0RF pantoprazole 40 mg Tablet,Delayed Release (Dr/Ec) 40 mg PO BID 30 Days Qty: 60 0RF Primary Care Provider: Kei Pineda Referrals: Kei Pineda DO [Primary Care Provider] - Disposition Disposition: Acute Care Hospital Discharge Location: [facility]
[2023-03-18] MEDS: fentaNYL 100 MCG/2 ML Ampul 50 MCG IV ×2 (16:00→19:31)
[2023-03-18] MEDS: 0.9% Normal Saline (500mL Bag) 500 ML 1000 ML IV (16:01)
[2023-03-18 16:08] LABS: Absolute Lymphocyte Count 1.79 X10^3/uL (0.83-4.51); Absolute Neutrophil Count 3.8 X10^3/uL (2.0-7.7); Basophil# 0.03 X10^3/uL; Basophil% 0.5 % (0-1); Eosinophil# 0.03 X10^3/uL; Eosinophils% 0.5 % (0-5); Hematocrit 36.7 % (37-47); Lymphocyte # 1.79 X10^3/ul (0.83-4.51); Lymphocyte % 29.8 % (19-41); Mean Corpuscular Volume 90.2 fL (81-99); Monocyte# 0.35 X10^3/uL; Monocyte% 5.8 % (0-10); NRBC Flagged by Analyzer 0 % (0-5); Neutrophil # 3.78 X10^3/uL (2.7-7.7); Neutrophil % 63.1 % (47-70); Platelet Count 223 K/mm3 (150-450); RBC Distribution Width SD 46.4 fl (35.1-43.9); Red Blood Count 4.07 M/mm3 (4.2-5.4)
--- NOTE | 2023-03-18 16:20 | RAD_ITS ---
EXAM: XR RIGHT ELBOW, 2 VIEWS CLINICAL INDICATION: Injury/Pain TECHNIQUE: Frontal and lateral views of the right elbow. COMPARISON: No relevant prior studies available. FINDINGS: BONES/JOINTS: Acute fracture of the distal humerus noted extending through the supracondylar and intercondylar region. Anterolateral displacement of the lateral condylar fracture fragment. No subluxation deformity. SOFT TISSUES: Normal. No soft tissue swelling or gas. No radiopaque foreign body. RAD/Elbow 2 Views IMPRESSION: Acute comminuted fracture of the distal humerus. Electronically Signed: Speedy Carney MD at 16:51 EDT ,
--- NOTE | 2023-03-18 16:20 | RAD_ITS ---
EXAM: XR RIGHT HUMERUS, 2 OR MORE VIEWS CLINICAL INDICATION: Injury/Pain TECHNIQUE: Frontal and lateral views of the right humerus. COMPARISON: No relevant prior studies available. FINDINGS: BONES/JOINTS: Acute fracture of the distal humerus noted extending through the intercondylar and supracondylar portion. Lateral condyle displaced laterally. Humeral shaft is intact. No subluxation deformity. SOFT TISSUES: Normal. No soft tissue swelling or gas. No radiopaque foreign body. RAD/Humerus min 2 Views IMPRESSION: Acute fracture of the distal humerus. Electronically Signed: Speedy Carney MD at 16:52 EDT ,
--- NOTE | 2023-03-18 16:20 | RAD_ITS ---
STUDY: X-RAY CHEST REASON FOR EXAM: Female, 72 years old. cough TECHNIQUE: Single frontal view of the chest. COMPARISON: October 30, 2022 FINDINGS: The lungs are clear and expanded. There is no demonstrated pleural abnormality. Normal size heart. Normal mediastinum and eileen. Normal visualized pulmonary arteries. Normal visualized aortic arch and descending thoracic aorta. Normal visualized thoracic spine. [Old Fracture left humeral neck. There is no demonstrated abnormality of the visualized soft tissue structures of the upper abdomen. RAD/Chest 1 View (Portable) IMPRESSION: No acute disease Electronically Signed: Arian Nixon MD at 17:13 EDT ,
[2023-03-18 16:34] LABS: BNP,B-Type NATRIURETIC PEPTIDE 40.4 pg/mL (0-100)
[2023-03-18 17:35] VITALS: BP 143/62; PULSE 74; RESP 16; O2SAT 99
[2023-03-18 18:37] VITALS: BP 119/51
[2023-03-18 19:00] LABS: ALB/GLOB Ratio 1.2 RATIO (0.9-2.4); AST(SGOT) 21 U/L (15-37); Alanine Aminotransfer ALT/SGPT 14 U/L (13-56); Albumin, Serum 3.6 g/dL (3.2-5.0); Alkaline Phosphatase 139 U/L (45-117); Anion Gap 5 (5-15); BUN 18 mg/dL (7-18); BUN/Creat Ratio 17.6 RATIO (10-20); Calcium,Total 9.1 mg/dL (8.5-10.1); Chloride 106 mmol/L (98-107); Creatinine, Serum 1.02 mg/dL (0.55-1.02); EST Glomerular Filtration Rate 56 mL/min (>60); Est Glom Filt Rate - Afr Amer 68 mL/min (>60); Estimated Creatinine Clearance 34.76 ml/min; Globulin 3.1 g/dL (2.2-4.2); Glucose 93 mg/dL (74-106); Potassium 4.1 mmol/L (3.5-5.1); Protein, Total 6.7 g/dL (6.4-8.2); Sodium Level 139 mmol/L (136-145); Troponin-I HS 10 pg/mL (3.0-54.0)
--- NOTE | 2023-03-18 19:31 | CONS.ORTHO ---
HPI Consult Data Date of Consult: 03/18/23 HPI Narrative HPI Narrative: BETH HARTMAN, is a 72 F who presents with a distal humerus fracture. Called by the ED provider today 730pm. Dr. Chambers patient but ED wondering if I would fix this, patient has debility so would need to be admitted. [facility] Medical History (Updated 03/18/23 @ 19:33 by Luiz Patiño MD) Anemia Bilateral pleural effusion Broken shoulder Closed fracture of right distal humerus COPD (chronic obstructive pulmonary disease) Depression Dilated cardiomyopathy Essential hypertension GERD (gastroesophageal reflux disease) Obesity Obstructive sleep apnea Osteoarthritis Osteoporosis Home Medications calcium carbonate 500 mg-vitamin D3 5 mcg (200 unit) tablet 1 tab PO BIDCM supplement 05/09/20 [History Last Taken 10/28/22] paroxetine HCl 30 mg tablet 30 mg PO DAILY depression 05/09/20 [History Last Taken 10/29/22] gabapentin 300 mg capsule 300 mg PO TID PRN Pain 01/26/21 [History Last Taken 10/26/22] acetaminophen 500 mg tablet 1,000 mg PO Q8 PRN Pain 10/29/22 [History Last Taken Unknown] bupropion HCl 150 mg tablet,12 hr sustained-release 150 mg PO BID mood 11/02/22 [History Last Taken Unknown] carvedilol 3.125 mg tablet 3.125 mg PO BIDCM heart 11/02/22 [History Last Taken Unknown] cholecalciferol (vitamin D3) 25 mcg (1,000 unit) tablet 25 mcg PO DAILY supplement 11/02/22 [History Last Taken Unknown] ibuprofen 600 mg tablet 600 mg PO Q8 pain 11/02/22 [History Last Taken Unknown] menthol 0.44 %-zinc oxide 20.6 % topical ointment (Calmoseptine) 1 applic topical BID skin protection 11/02/22 [History Last Taken Unknown] polysaccharide iron complex 150 mg iron capsule (Ferrex) 150 mg PO DAILYCM supplement 11/02/22 [History Last Taken Unknown] pantoprazole 40 mg tablet,delayed release 40 mg PO BID 30 days #60 tabs 12/13/22 [Rx Last Taken Unknown] tizanidine 2 mg tablet 2 mg PO TID 30 days #90 tabs 12/13/22 [Rx Last Taken Unknown] Allergy/AdvReac Type Severity Reaction Status Date / Time diclofenac [From Voltaren] Allergy Rash Verified 03/18/23 15:12 hydrocodone [From Vicodin] AdvReac Other Verified 03/18/23 15:12 Family History Mother Diabetes Heart disease Hypertension Hyperlipidemia Father Diabetes Heart disease Hypertension Hyperlipidemia Surgical History History of History of gastric bypass History of herniorrhaphy History of left heart catheterization (12/05/18) History of open reduction and internal fixation (ORIF) procedure History of open reduction and internal fixation (ORIF) procedure History of tonsillectomy Hx of cholecystectomy Social History household members: family Smoking Status: Former smoker alcohol intake: never substance use type: does not use Vital Signs Vital Signs Vital Signs: 03/18/23 15:01 03/18/23 15:04 03/18/23 15:07 Temperature 96.4 F L Temperature Source Temporal Pulse Rate 67 67 Respiratory Rate 14 14 Respiratory Effort Normal Non-Labored Respiratory Depth Normal Respiratory Pattern Normal Blood Pressure 89/45 L 95/46 L Blood Pressure Mean 59 62 Pulse Ox 93 94 Oxygen Delivery Method Room Air Room Air 03/18/23 17:35 03/18/23 18:37 Temperature Temperature Source Pulse Rate 74 Respiratory Rate 16 Respiratory Effort Respiratory Depth Respiratory Pattern Blood Pressure 143/62 H 119/51 L Blood Pressure Mean 89 73 Pulse Ox 99 Oxygen Delivery Method Room Air Weight Weight: 183 lb 3.266 oz Body Mass Index (BMI) 35.7 Lab / Micro Data 03/18/23 16:02 03/18/23 18:33 Labs: Laboratory Results - last 24 hr 03/18/23 16:02: WBC 6.0, RBC 4.07 L, Hgb 11.0 L, Hct 36.7 L, MCV 90.2, MCH 27.0, MCHC 30.0 L, RDW Std Deviation 46.4 H, RDW Coeff of Joe 14.0, Plt Count 223, MPV 10.0, Immature Gran % (Auto) 0.300, Neut % (Auto) 63.1, Lymph % (Auto) 29.8, [place] % (Auto) 5.8, Eos % (Auto) 0.5, Baso % (Auto) 0.5, Absolute Neuts (auto) 3.8, Absolute Lymphs (auto) 1.79, Nucleated RBC % 0, Sodium Cancelled, Potassium Cancelled, Chloride Cancelled, Carbon Dioxide Cancelled, Anion Gap Cancelled, BUN Cancelled, Creatinine Cancelled, Estim Creat Clear Calc Cancelled, Est GFR (MDRD) Af Amer Cancelled, Est GFR (MDRD) Non-Af Cancelled, BUN/Creatinine Ratio Cancelled, Glucose Cancelled, Calcium Cancelled, Total Bilirubin Cancelled, AST Cancelled, ALT Cancelled, Alkaline Phosphatase Cancelled, Troponin I High Sens Cancelled, B-Natriuretic Peptide 40.4, Total Protein Cancelled, Albumin Cancelled, Globulin Cancelled, Albumin/Globulin Ratio Cancelled 03/18/23 18:33: Sodium 139, Potassium 4.1, Chloride 106, Carbon Dioxide 28.0, Anion Gap 5, BUN 18, Creatinine 1.02, Estim Creat Clear Calc 34.76, Est GFR (MDRD) Af Amer 68, Est GFR (MDRD) Non-Af 56 L, BUN/Creatinine Ratio 17.6, Glucose 93, Calcium 9.1, Total Bilirubin 0.60, AST 21, ALT 14, Alkaline Phosphatase 139 H, Troponin I High Sens 10, Total Protein 6.7, Albumin 3.6, Globulin 3.1, Albumin/Globulin Ratio 1.2 Rhythm Strip Rhythm Strip: Sinus Rhythm Rate: 62 Ectopy: None Radiology Impression Brain CT 03/18/23 15:47 IMPRESSION: 1. No acute intracranial abnormality. 2. Stable senescent changes. Electronically Signed: Speedy Carney MD at 16:42 EDT , Cervical Spine CT 03/18/23 15:52 IMPRESSION: No acute cervical spine injury. Moderate diffuse spondylosis. Electronically Signed: Speedy Carney MD at 16:44 EDT , Chest X-Ray 03/18/23 16:20 IMPRESSION: No acute disease Electronically Signed: Arian Nixon MD at 17:13 EDT , Elbow X-Ray 03/18/23 16:20 IMPRESSION: Acute comminuted fracture of the distal humerus. Electronically Signed: Speedy Carney MD at 16:51 EDT , Humerus X-Ray 03/18/23 16:20 IMPRESSION: Acute fracture of the distal humerus. Electronically Signed: Speedy Carney MD at 16:52 EDT , agree comminuted distal humerus fracture, with osteopenic bone Assessment & Plan Assessment/Plan (1) Closed fracture of right distal humerus: PLAN: 72 F with distal humerus fracture. Would recommend to see tertiary care as these can be difficult cases and recommend UE or trauma specialist to take this on, especially given multiple medical problems and osteopenic bone. ED provider understands, will find other center to accept care.
--- NOTE | 2023-03-18 20:39 | ED.RN ---
[facility] called for transfer they are not accepting transfers at this time
--- NOTE | 2023-03-18 20:40 | ED.RN ---
[facility] called for transfer they are doing doc to doc at this time
[2023-03-18 21:59] VITALS: BP 141/61; PULSE 82; RESP 18; O2SAT 96
[2023-03-18] MEDS: Morphine 4 MG/ML Syringe IV (22:04)
[2023-03-18 22:35] LABS: Mucous, Urine 0 SEEN /hpf (<or=2+)
[2023-03-18 22:38] LABS: Color, Urine Yellow (Yellow); Glucose, Dipstick Normal (Normal); Ketone-Dipstick 15 mg/dl (Negative); Leukocyte Esterase-Dipstick 500 /ul (Negative); Nitrite-Dipstick Negative (Negative); Occult Blood-Urine 10 /ul (Negative); Protein-Dipstick 15 mg/dl (Negative); Specific Gravity, Urine 1.015 (1.002-1.030); Urine Bilirubin Dipstick Negative (Negative); Urine Clarity Cloudy (Clear); Urine Urobilinogen 4 mg/dl (Normal)
[2023-03-18 23:21] LABS: Bacteria 3+ /hpf (None Seen); Red Blood Cells-Urine 0-5 SEEN /hpf (0-5); Squamous Epithelial Cells - UA 0-5 SEEN /hpf (5-10); White Blood Cells 10-25 SEEN /hpf (0-5)
[2023-03-18 23:22] LABS: Amorphous Sediment 1+ URATE
[2023-03-18] MEDS: Ceftriaxone 1 GM/50 ML BAG IV (23:57)
[2023-03-19 00:44] VITALS: BP 119/52; PULSE 80; RESP 18; O2SAT 95
[2023-03-19] MEDS: Morphine 4 MG/ML Syringe IV (00:58)
[2023-03-19] MEDS: Mag Hydrox/Al Hydrox/Simeth 30 ML UDC PO (00:59)
== END 2023-03-19 01:01 | disposition short-term general hospital (02) ==
PROVIDERS: Emergency Provider Emergency Medicine; PCP Student in an Organized Health Care Education/Training Program; Visit Provider Emergency Medicine
DX: S42.431A Displaced fracture (avulsion) of lateral epicondyle of right humerus, initial encounter for closed fracture (principal); J44.9 Chronic obstructive pulmonary disease, unspecified; I11.0 Hypertensive heart disease with heart failure; I50.22 Chronic systolic (congestive) heart failure; I42.0 Dilated cardiomyopathy; I95.9 Hypotension, unspecified; N39.0 Urinary tract infection, site not specified; R53.81 Other malaise; Z87.891 Personal history of nicotine dependence; W10.9XXA Fall (on) (from) unspecified stairs and steps, initial encounter; F32.A Depression, unspecified; K21.9 Gastro-esophageal reflux disease without esophagitis; E66.9 Obesity, unspecified
CPT/HCPCS: 29105; 29405; 70450; 71045; 72125; 73060; 73070; 80053; 81001; 83880; 84484; 85025; 93005; 96361; 96365; 96375; 96376; 99285; J7030; J7050; A4216

== ENCOUNTER 2023-03-26 13:29 | Inpatient (IN) | payer MEDICARE, OTHER, SELFPAY ==
[2023-03-26 14:55] VITALS: BP 103/43; PULSE 115; RESP 15; TEMP 37.4; O2SAT 97; BMI 38.7
[2023-03-26] MEDS: oxyCODONE 5 MG Tablet 2.5 MG PO (15:43)
[2023-03-26] MEDS: Calcium Carb/Vitamin D 1 TABLET Tablet PO (16:48)
[2023-03-26] MEDS: Albuterol IH (6.7 GM) 1 PUFF INHALER 2 PUFF INHALATION ×2 (16:48→21:23)
[2023-03-26] MEDS: Acetaminophen 500 MG Tablet 1000 MG PO (17:15)
--- NOTE | 2023-03-26 17:16 | HP.PCM_ITS ---
[facility] - General General Date of Admission: 03/26/23 Date of Service: 03/28/23 Chief Complaint: Here for rehabilitation. [facility] Narrative BETH HARTMAN, is a 72 Female who presents with followin03/19/2023 Admit to [facility], SICU. Fall, carrying groceries, lost balance, fell on right side. Hit head, no loss of consciousness, right upper extremity pain, headache. CT head negative, CT cervical spine negative. X-ray showed right humerus fracture. Hypotension, no response to IV fluid bolus x 2, on Levophed. CT showed chronic proximal left humerus fracture. Right 7th, 8th rib fractures. Right upper extremity splint, NWB, for right humerus fracture. Pulmonary hygiene for rib fractures. IV fluids 1 liter for hypotension. PT/OT. Tylenol scheduled, Oxycodone PRN for pain control. Wean Levophed for hypotension. 03/19/2023 Right upper extremity splint, NWB RUE. No surgery currently for right humerus fracture. 03/24/2023 Orthopedics performed right total elbow arthroplasty with radial and ulnar nerve decompression and transposition. Ancef 2gm iv q8. Right upper extremity weight bear less than 10 pounds. 03/26/2023 Admit to TCU with debility, here for rehabilitation, strengthening, prior to discharge home with family. [facility] Medical History (Updated 03/27/23 @ 00:30 by Keeley Mcmillan) Anemia Bilateral pleural effusion Broken shoulder Closed fracture of right distal humerus COPD (chronic obstructive pulmonary disease) Depression Dilated cardiomyopathy Essential hypertension GERD (gastroesophageal reflux disease) Obesity Obstructive sleep apnea Osteoarthritis Osteoporosis Home Medications calcium carbonate 500 mg-vitamin D3 5 mcg (200 unit) tablet 1 tab PO BIDCM supplement 05/09/20 [History Last Taken 10/28/22] paroxetine HCl 30 mg tablet 40 mg PO DAILY depression 05/09/20 [History Last Taken 10/29/22] gabapentin 300 mg capsule 300 mg PO TID PRN Pain 01/26/21 [History Last Taken 10/26/22] acetaminophen 500 mg tablet 1,000 mg PO Q8 PRN Pain 10/29/22 [History Last Taken Unknown] bupropion HCl 150 mg tablet,12 hr sustained-release 150 mg PO BID mood 11/02/22 [History Last Taken Unknown] carvedilol 3.125 mg tablet 12.5 mg PO BIDCM heart 11/02/22 [History Last Taken Unknown] menthol 0.44 %-zinc oxide 20.6 % topical ointment (Calmoseptine) 1 applic topical BID skin protection 11/02/22 [History Last Taken Unknown] polysaccharide iron complex 150 mg iron capsule (Ferrex) 150 mg PO DAILYCM supplement 11/02/22 [History Last Taken Unknown] tizanidine 2 mg tablet 2 mg PO TID muscle relax 30 days #90 tabs 12/13/22 [Rx Last Taken Unknown] albuterol 90 mcg/actuation aerosol inhaler 90 mcg inhalation .four times day lungs 03/26/23 [History Last Taken Unknown] ergocalciferol (vitamin D2) 1,250 mcg (50,000 unit) capsule 50,000 unit PO .every tuesday bones 03/26/23 [History Last Taken Unknown] famotidine 20 mg tablet (Acid Controller) 20 mg PO BID acid reflux 03/26/23 [History Last Taken Unknown] furosemide 40 mg tablet 40 mg PO DAILY water pill 03/26/23 [History Last Taken Unknown] lorazepam 0.5 mg tablet (Ativan) 0.5 mg PO Q8H PRN anxiety 03/26/23 [History Last Taken Unknown] nystatin 100,000 unit/gram topical powder 1 applic topical BID skin folds/under breasts/groin 03/26/23 [History Last Taken Unknown] ofloxacin 0.3 % ear drops 5 drp EACH EAR Q12H ears 03/26/23 [History Last Taken Unknown] ondansetron 4 mg disintegrating tablet 4 mg PO Q8H PRN nausea and vomiting 03/11 12/31 [History Last Taken Unknown] oxycodone 5 mg capsule 2.5 mg PO Q6H 6-10 03/26/23 [History Last Taken Unknown] polyethylene glycol 3350 17 gram oral powder packet 17 g PO DAILY constipati 03/26/23 [History Last Taken Unknown] potassium chloride 20 mEq tablet,extended release (K-Tab) 20 meq PO DAILY supplement 03/26/23 [History Last Taken Unknown] senna-docusate sodium tablet 1 tab PO BID bowels 03/26/23 [History Last Taken Unknown] triamcinolone acetonide 0.1 % topical cream 1 applic topical BID fungal 03/26/23 [History Last Taken Unknown] vitamin B complex 1 tab PO DAILY supp 03/26/23 [History Last Taken Unknown] Allergy/AdvReac Type Severity Reaction Status Date / Time diclofenac [From Voltaren] Allergy Rash Verified 03/18/23 15:12 hydrocodone [From Vicodin] AdvReac Other Verified 03/18/23 15:12 Family History Mother Diabetes Heart disease Hypertension Hyperlipidemia Father Diabetes Heart disease Hypertension Hyperlipidemia Surgical History History of History of gastric bypass History of herniorrhaphy History of left heart catheterization (12/05/18) History of open reduction and internal fixation (ORIF) procedure History of open reduction and internal fixation (ORIF) procedure History of tonsillectomy Hx of cholecystectomy Social History household members: family Smoking Status: Former smoker alcohol intake: never substance use type: does not use ROS Constitutional Constitutional: Denies chills, fever(s) or weight gain ENT HEENT: Denies headache(s), nasal congestion or nasal discharge Cardiovascular Cardiovascular: Denies chest pain or palpitations Respiratory/Chest Respiratory/Chest: Denies cough, excessive phlegm production or shortness of breath with exertion Gastrointestinal Gastrointestinal: Denies abdominal pain, nausea or vomiting Genitourinary Genitourinary: Denies dysuria Musculoskeletal Musculoskeletal: Denies joint pain or joint swelling Integumentary Integumentary: Denies rash or wounds Neurologic Neurologic: Denies focal weakness, numbness or tingling Psychiatric Psychiatric: Denies anxiety, auditory hallucinations, depression, homicidal ideation or suicidal ideation Vital Signs Vital Signs Vital Signs: 03/26/23 14:55 Temperature 99.4 F H Temperature Source Temporal Pulse Rate 115 H Respiratory Rate 15 Blood Pressure 103/43 L Blood Pressure Mean 63 Blood Pressure Source Monitor Blood Pressure Position Semi-Fowlers Blood Pressure Location Left Arm Pulse Ox 97 Oxygen Delivery Method Room Air Weight Weight: 87.09 kg Body Mass Index (BMI) 38.7 Physical Exam Const alert General Appearance: cooperative HEENT normocephalic Eyes PERRL and EOMs intact bilaterally Neck supple, no JVD and no carotid bruits Resp normal respiratory effort, normal air movement and clear to auscultation bilaterally Cardio regular rate and regular rhythm GI normal to inspection, nondistended, normoactive bowel sounds, non-tender and non-distended Extremity normal capillary refill Extremity Narrative: Right upper extremity splint. General Extremity: Negative for edema Skin no rashes or lesions noted General Skin Exam: no breakdown Psych affect normal Appearance: appropriate Results Lab / Micro Data 03/28/23 05:29 03/27/23 05:24 Micro: Microbiology 03/26/23 15:40 Nasal Secretion SARS-CoV-2 Antigen (Rapid) - Final Assessment & Plan Assessment/Plan (1) Debility: (2) Closed fracture of right distal humerus: (3) Hypotension: (4) Depression: (5) Heart failure with reduced ejection fraction: (6) Neuropathic pain: (7) Iron deficiency anemia: (8) GERD (gastroesophageal reflux disease): (9) Muscle spasm: (10) Vitamin D deficiency: (11) COPD (chronic obstructive pulmonary disease): (12) Hypothyroidism: (13) Osteoporosis: (14) Obstructive sleep apnea: PLAN: Plan 72 year old female with below past medical history hospitalized for right distal humerus fracture, underwent right elbow arthroplasty, complicated by multiple right rib fractures, hypotension, admitted to TCU with debility, here for rehabilitation, strengthening, prior to discharge home with family. * Debility - PT/OT. * Pain - Tylenol 1000mg q6h prn pain (1-5), Oxycodone 5mg q4h prn pain (6-10). * Bowel - Miralax 17gm daily, senna/colace 1 tablet bid, Magnesium citrate 300ml daily prn. * Adult immunization - Administer pneumonia vaccine, covid19 vaccine, flu vaccine as appropriate. * DVT prophylaxis - Hold, anemia. * COPD - Albuterol 2 puffs 4x/day. * Depression - Bupropion SR 150mg bid, Paroxetine 40mg daily, stable chronic bed bug exterminator use, GDR not recommended. * Calcium deficiency - Calcium D 1 tablet bidcm. * Heart failure reduced ejection fraction - Coreg 12.5mg bidcm, Furosemide 40mg daily. * Vitamin D deficiency - D2 50,000 units qweek. * GERD - Famotidine 20mg bid. * Iron deficiency anemia - Ferrex 150mg daily. * Anxiety - Lorazepam 0.5mg q8h prn, stable chronic term used, GDR not recommended. * Skin irritation - Calmoseptine topical bid, Triamcinolone cream topical bid. * Tinea Corporis - Miconazole topical bid. * Nausea - Zofran odt 4mg q8h prn. * Hypokalemia- KCL 20meq daily. * Leg cramps - Vitamin B complex daily.
[2023-03-26] MEDS: Miconazole Nitrate 43 GM Bottle 1 APPLIC TOPICAL (21:22)
[2023-03-26] MEDS: Triamcinolone Acetonide 0.1% Cream 15 gm 1 APPLIC TOPICAL (21:23)
[2023-03-26] MEDS: Famotidine 20 MG Tablet PO (21:23)
[2023-03-26] MEDS: buPROPion (SR) 150 MG Tablet.SA PO (21:24)
[2023-03-26] MEDS: Senna/Docusate Sodium 1 Tablet PO (21:25)
[2023-03-26] MEDS: oxyCODONE 5 MG Tablet PO (21:27)
[2023-03-26] MEDS: LORazepam 0.5 MG Tablet PO (21:28)
[2023-03-27] MEDS: Acetaminophen 500 MG Tablet 1000 MG PO ×2 (05:42→22:36)
[2023-03-27] MEDS: oxyCODONE 5 MG Tablet PO ×2 (05:43→17:08)
[2023-03-27 05:45] LABS: Absolute Lymphocyte Count 1.87 X10^3/uL (0.83-4.51); Absolute Neutrophil Count 3.7 X10^3/uL (2.0-7.7); Basophil# 0.05 X10^3/uL; Basophil% 0.8 % (0-1); Eosinophil# 0.16 X10^3/uL; Eosinophils% 2.5 % (0-5); Hematocrit 29.6 % (37-47); Hemoglobin 9.3 g/dL (12.0-15.0); Lymphocyte # 1.87 X10^3/ul (0.83-4.51); Lymphocyte % 29.3 % (19-41); Mean Corp Hgb Conc 31.4 g/dL (32-36); Mean Corpuscular Hgb 27.2 pg (27.0-32.0); Mean Corpuscular Volume 86.5 fL (81-99); Mean Platelet Vol. 9.4 fl (6.2-12.0); Monocyte# 0.58 X10^3/uL; Monocyte% 9.1 % (0-10); NRBC Flagged by Analyzer 0 % (0-5); Neutrophil # 3.69 X10^3/uL (2.7-7.7); Neutrophil % 57.8 % (47-70); Platelet Count 274 K/mm3 (150-450); RBC Distribution Width CV 14.7 % (11.6-14.6); RBC Distribution Width SD 45.9 fl (35.1-43.9); Red Blood Count 3.42 M/mm3 (4.2-5.4); White Blood Count 6.4 K/mm3 (4.4-11.0)
[2023-03-27] MEDS: Albuterol IH (6.7 GM) 1 PUFF INHALER 2 PUFF INHALATION ×4 (05:45→22:32)
[2023-03-27 06:30] LABS: Anion Gap 1 (5-15); BUN 18 mg/dL (7-18); BUN/Creat Ratio 31.9 RATIO (10-20); Calcium,Total 8.7 mg/dL (8.5-10.1); Chloride 105 mmol/L (98-107); Creatinine, Serum 0.56 mg/dL (0.55-1.02); EST Glomerular Filtration Rate 111 mL/min (>60); Est Glom Filt Rate - Afr Amer 135 mL/min (>60); Estimated Creatinine Clearance 67.86 ml/min; Glucose 98 mg/dL (74-106); Potassium 4.3 mmol/L (3.5-5.1); Sodium Level 138 mmol/L (136-145)
[2023-03-27] MEDS: Menthol/Lanolin/Calamine/Znox 113 GM Tube 1 APPLIC TOPICAL ×2 (09:40→22:31)
[2023-03-27] MEDS: Iron Polysaccharide Complex 150 MG CAPSULE PO (09:40)
[2023-03-27] MEDS: Calcium Carb/Vitamin D 1 TABLET Tablet PO ×2 (09:40→17:01)
[2023-03-27] MEDS: Vitamin B Comp W-C Capsule 1 CAP PO (09:40)
[2023-03-27] MEDS: Potassium Chloride Oral Tablet 20 MEQ PO (09:41)
[2023-03-27] MEDS: Paroxetine 20 MG Tablet 40 MG PO (09:41)
[2023-03-27] MEDS: Furosemide 40 MG Tablet PO (09:41)
[2023-03-27] MEDS: Polyethylene Glycol 3350 17 GM PACKET PO (09:41)
[2023-03-27] MEDS: Miconazole Nitrate 43 GM Bottle 1 APPLIC TOPICAL ×2 (09:41→22:32)
[2023-03-27] MEDS: buPROPion (SR) 150 MG Tablet.SA PO ×2 (09:42→22:31)
[2023-03-27] MEDS: Senna/Docusate Sodium 1 Tablet PO ×2 (09:42→22:32)
[2023-03-27] MEDS: Famotidine 20 MG Tablet PO ×2 (09:42→22:31)
[2023-03-27] MEDS: Tuberculin,Purif.prot.deriv. 50 TU/ML Vial 0.1 ML ID (09:42)
[2023-03-27] MEDS: Triamcinolone Acetonide 0.1% Cream 15 gm 1 APPLIC TOPICAL ×2 (09:43→22:32)
--- NOTE | 2023-03-27 14:55 | NURSING ---
1455 [facility] for next of kin to call TCU back so that we can make them aware or positive covid cases.
[2023-03-27 16:00] VITALS: BP 112/55; PULSE 76; RESP 16; TEMP 36.4; O2SAT 94
--- NOTE | 2023-03-27 19:58 | NURSING ---
pt refusing coreg d/t lower BP's and pt refusing iron. dr coles updated, new orders to DC meds
[2023-03-28] MEDS: Acetaminophen 500 MG Tablet 1000 MG PO (05:29)
[2023-03-28] MEDS: oxyCODONE 5 MG Tablet PO ×3 (05:30→17:12)
[2023-03-28] MEDS: Albuterol IH (6.7 GM) 1 PUFF INHALER 2 PUFF INHALATION ×4 (05:30→20:57)
[2023-03-28 05:58] LABS: Hemoglobin 8.9 g/dL (12.0-15.0)
[2023-03-28] MEDS: Vitamin B Comp W-C Capsule 1 CAP PO (09:00)
[2023-03-28] MEDS: Potassium Chloride Oral Tablet 20 MEQ PO (09:00)
[2023-03-28] MEDS: Paroxetine 20 MG Tablet 40 MG PO (09:00)
[2023-03-28] MEDS: Ergocalciferol 1.25 MG (50, 000 UNIT) Capsule PO (09:00)
[2023-03-28] MEDS: Polyethylene Glycol 3350 17 GM PACKET PO (09:00)
[2023-03-28] MEDS: Famotidine 20 MG Tablet PO ×2 (09:00→20:57)
[2023-03-28] MEDS: Furosemide 40 MG Tablet PO (09:00)
[2023-03-28] MEDS: buPROPion (SR) 150 MG Tablet.SA PO ×2 (09:00→20:57)
[2023-03-28] MEDS: Triamcinolone Acetonide 0.1% Cream 15 gm 1 APPLIC TOPICAL ×2 (09:01→20:57)
[2023-03-28] MEDS: Calcium Carb/Vitamin D 1 TABLET Tablet PO ×2 (09:01→17:13)
[2023-03-28] MEDS: Menthol/Lanolin/Calamine/Znox 113 GM Tube 1 APPLIC TOPICAL ×2 (09:02→20:57)
[2023-03-28] MEDS: Miconazole Nitrate 43 GM Bottle 1 APPLIC TOPICAL ×2 (09:02→20:59)
[2023-03-28] MEDS: Senna/Docusate Sodium 1 Tablet PO ×2 (09:07→20:57)
--- NOTE | 2023-03-28 12:25 | NURSING ---
Manager Actuarial Note; Activity Asset: Valentin Boateng has returned to TCU after a fall. She has been with us before and remains independent in her choice of daily activities. Her family and friends will visit along with her watching tv, reading or just resting. She welcomes visit from the breaker mechanic and therapy dog and stated she enjoyed them the last time she was here. Staff will remind her of daily activities and respect her right to say no.
[2023-03-28 15:30] VITALS: BP 107/47; PULSE 87; RESP 16; TEMP 36.6; O2SAT 96
--- NOTE | 2023-03-28 16:32 | NURSING ---
Family given update additional staff members have covid.
[2023-03-28 20:13] VITALS: PULSE 90; RESP 18; O2SAT 91
[2023-03-29] MEDS: oxyCODONE 5 MG Tablet PO ×3 (01:46→21:28)
[2023-03-29 05:47] LABS: Hematocrit 28.1 % (37-47); Hemoglobin 8.9 g/dL (12.0-15.0)
[2023-03-29] MEDS: Albuterol IH (6.7 GM) 1 PUFF INHALER 2 PUFF INHALATION ×4 (06:16→21:29)
[2023-03-29] MEDS: Calcium Carb/Vitamin D 1 TABLET Tablet PO ×2 (08:11→16:50)
[2023-03-29] MEDS: Vitamin B Comp W-C Capsule 1 CAP PO (08:11)
[2023-03-29] MEDS: Furosemide 40 MG Tablet PO (08:12)
[2023-03-29] MEDS: Polyethylene Glycol 3350 17 GM PACKET PO (08:12)
[2023-03-29] MEDS: Menthol/Lanolin/Calamine/Znox 113 GM Tube 1 APPLIC TOPICAL ×2 (08:12→21:30)
[2023-03-29] MEDS: Miconazole Nitrate 43 GM Bottle 1 APPLIC TOPICAL ×2 (08:12→21:29)
[2023-03-29] MEDS: Potassium Chloride Oral Tablet 20 MEQ PO (08:12)
[2023-03-29] MEDS: buPROPion (SR) 150 MG Tablet.SA PO ×2 (08:13→21:29)
[2023-03-29] MEDS: Famotidine 20 MG Tablet PO ×2 (08:13→21:28)
[2023-03-29] MEDS: Senna/Docusate Sodium 1 Tablet PO ×2 (08:13→21:29)
[2023-03-29] MEDS: Triamcinolone Acetonide 0.1% Cream 15 gm 1 APPLIC TOPICAL ×2 (08:14→21:29)
[2023-03-29 16:00] VITALS: BP 116/43; PULSE 90; RESP 16; TEMP 36.3; O2SAT 96
--- NOTE | 2023-03-29 16:24 | CASEMGMT ---
Social Work Met with patient to complete initial assessment. Pt known to this worker from previous stay. Verified contacts. Discussed code status and pt confirmed full code. Educated to Medicare benefit. Pt's goal is to return home, but will need additional assistance. SW will continue to follow for DC planning. Najma Strickland, SOCIAL MEDIA MANAGER GEOTHERMAL INSTALLER
--- NOTE | 2023-03-29 19:00 | RAD_ITS ---
INDICATION: Pain EXAMINATION/TECHNIQUE: X-RAY - RIGHT XR Forearm 2 Views 3 VIEWS COMPARISON: Right elbow series 03/18/2023 FINDINGS: Views performed in fiberglass splint which overlies and obscures fine bony detail. Interval placement of right elbow prosthesis with resection of the distal humerus and removal of the lateral humeral epicondyle. Poorly defined lucencies in the distal radius may reflect artifact from splint and dressing material.. RAD/Forearm 2 Views IMPRESSION: Examination in splint demonstrating interval placement of right elbow prosthesis with surgical changes of the distal humerus. Poorly defined lucency in the distal radius may reflect artifact but nondisplaced fracture not excluded. Recommend dedicated right wrist series. Electronically Signed: Scott Swanson MD at 22:27 EDT ,
--- NOTE | 2023-03-29 19:00 | RAD_ITS ---
INDICATION: Pain EXAMINATION/TECHNIQUE: X-RAY - XR Hip Unilateral with Pelvis when performed; 2-3 Views COMPARISON: Prior studies dated: 05/09/2020, 10/29/2022 FINDINGS: Interval fixation left hip with stable appearance of the old right gamma nail fixator. Fracture of the left superior and inferior pubic rami with evidence of possible healing callus formation. RAD/HIP, UNI W/ Pelvis 2-3 Views IMPRESSION: Fractures of the left superior and inferior pubic rami of uncertain chronicity. Electronically Signed: Scott Swanson MD at 22:35 EDT ,
[2023-03-30] MEDS: Acetaminophen 500 MG Tablet 1000 MG PO ×2 (01:44→21:07)
[2023-03-30] MEDS: oxyCODONE 5 MG Tablet PO ×3 (05:01→18:44)
[2023-03-30] MEDS: Albuterol IH (6.7 GM) 1 PUFF INHALER 2 PUFF INHALATION ×4 (05:02→20:59)
--- NOTE | 2023-03-30 07:47 | RAD_ITS ---
STUDY: X-RAY - RIGHT WRIST REASON FOR EXAM: Female, 72 years old. Wrist pain. No history of trauma. TECHNIQUE: 2 view(s) of the wrist were obtained. COMPARISON: None. FINDINGS: There is demineralization of the radius and ulna. There is degenerative arthrosis of the radiocarpal articulation. Normal distal radioulnar articulation. There is demineralization of the carpal bones. Normal carpal articulations. Normal carpometacarpal articulation of the thumb. Normal second through fifth carpometacarpal articulations. There is demineralization of the metacarpal bones. The soft tissue structures are unremarkable. RAD/Wrist 2 Views IMPRESSION: Demineralization of the osseous structures. No fracture or dislocation is seen. Electronically Signed: Greyson Pyle MD at 14:36 EDT ,
[2023-03-30] MEDS: Calcium Carb/Vitamin D 1 TABLET Tablet PO ×2 (08:16→17:36)
[2023-03-30] MEDS: Vitamin B Comp W-C Capsule 1 CAP PO (10:21)
[2023-03-30] MEDS: Menthol/Lanolin/Calamine/Znox 113 GM Tube 1 APPLIC TOPICAL ×2 (10:21→20:58)
[2023-03-30] MEDS: Paroxetine 20 MG Tablet 40 MG PO (10:22)
[2023-03-30] MEDS: Potassium Chloride Oral Tablet 20 MEQ PO (10:22)
[2023-03-30] MEDS: Miconazole Nitrate 43 GM Bottle 1 APPLIC TOPICAL ×2 (10:22→20:57)
[2023-03-30] MEDS: Furosemide 40 MG Tablet PO (10:22)
[2023-03-30] MEDS: buPROPion (SR) 150 MG Tablet.SA PO ×2 (10:23→20:58)
[2023-03-30] MEDS: Famotidine 20 MG Tablet PO ×2 (10:24→20:58)
[2023-03-30] MEDS: Triamcinolone Acetonide 0.1% Cream 15 gm 1 APPLIC TOPICAL ×2 (10:27→20:59)
[2023-03-30 16:00] VITALS: BP 123/60; PULSE 93; RESP 16; O2SAT 94
[2023-03-30] MEDS: Senna/Docusate Sodium 1 Tablet PO (20:58)
[2023-03-30 21:15] VITALS: PULSE 84; RESP 14; O2SAT 93
[2023-03-31] MEDS: Acetaminophen 500 MG Tablet 1000 MG PO ×2 (03:10→17:53)
[2023-03-31] MEDS: oxyCODONE 5 MG Tablet PO ×4 (03:10→21:49)
[2023-03-31] MEDS: LORazepam 0.5 MG Tablet PO ×2 (03:14→21:47)
[2023-03-31] MEDS: Albuterol IH (6.7 GM) 1 PUFF INHALER 2 PUFF INHALATION ×3 (06:21→21:44)
[2023-03-31] MEDS: Calcium Carb/Vitamin D 1 TABLET Tablet PO ×2 (09:23→17:52)
[2023-03-31] MEDS: buPROPion (SR) 150 MG Tablet.SA PO ×2 (09:24→21:46)
[2023-03-31] MEDS: Vitamin B Comp W-C Capsule 1 CAP PO (09:24)
[2023-03-31] MEDS: Potassium Chloride Oral Tablet 20 MEQ PO (09:24)
[2023-03-31] MEDS: Furosemide 40 MG Tablet PO (09:24)
[2023-03-31] MEDS: Paroxetine 20 MG Tablet 40 MG PO (09:24)
[2023-03-31] MEDS: Famotidine 20 MG Tablet PO ×2 (09:24→21:46)
[2023-03-31] MEDS: Polyethylene Glycol 3350 17 GM PACKET PO (09:24)
[2023-03-31] MEDS: Triamcinolone Acetonide 0.1% Cream 15 gm 1 APPLIC TOPICAL ×2 (09:27→21:44)
[2023-03-31] MEDS: Menthol/Lanolin/Calamine/Znox 113 GM Tube 1 APPLIC TOPICAL ×2 (09:27→21:44)
[2023-03-31] MEDS: Miconazole Nitrate 43 GM Bottle 1 APPLIC TOPICAL ×2 (09:27→21:45)
--- NOTE | 2023-03-31 11:34 | CASEMGMT ---
Social Work IDT met with patient, sister and nephew for care plan meeting. Discussed patient's progress in PT/OT/SN. Educated to Medicare benefit. Encouraged to contact secondary insurance to ensure copay coverage. Pt voices she wishes to go home, however, IDT reminded pt she is only able to SPT x1 ft with x2 assist and will remain NWB on the RUE for several weeks. Pt needs to regain strength and more independence prior to safely returning home. SW will continue to follow for DC planning. BUTCH SaleemW
[2023-03-31 15:01] VITALS: BP 102/49; PULSE 89; RESP 16; TEMP 37.6; O2SAT 94
--- NOTE | 2023-03-31 16:26 | CASEMGMT ---
Social Work BIMS () and PHQ-9 () completed for MDS assessment. SW explored positive responses with pt. Overall, pt expressed this fall and her injuries are leaving her incapable of doing things she enjoys, feeling down, resulting in issues with sleep, energy and appetite. Pt stated her pain and not being to reposition also is a barrier to comfort and sleep. Pt stated she is getting a sleeping medication but agreed to notify nursing if does not improve. pt expressed she is still grieving the loss of her . SW offered bereavement counseling through [facility]. Pt agreed and inquired if she can start counseling while in TCU. SW offered to ask hospice. Pt would also like grandson (whom she calls her son) to participate as well. SW offered to speak with hospice on request. SW provided ongoing emotional support and active listening. Offered ongoing visits as needed. Secure email sent to hospice for inquiries. Liaison to have bereavement team speak with pt and family. SW will continue to follow BUTCH Saleem
[2023-03-31] MEDS: Senna/Docusate Sodium 1 Tablet PO (21:46)
[2023-03-31] MEDS: MELATONIN 10 MG TABLET PO (21:46)
[2023-03-31] MEDS: cycloBENZAPRine HCl 10 MG Tablet PO (21:47)
[2023-04-01] MEDS: Acetaminophen 500 MG Tablet 1000 MG PO ×2 (04:04→14:12)
[2023-04-01] MEDS: oxyCODONE 5 MG Tablet PO ×4 (04:04→21:31)
[2023-04-01] MEDS: cycloBENZAPRine HCl 10 MG Tablet PO ×2 (04:04→14:12)
[2023-04-01] MEDS: Albuterol IH (6.7 GM) 1 PUFF INHALER 2 PUFF INHALATION ×4 (05:19→21:32)
[2023-04-01] MEDS: Vitamin B Comp W-C Capsule 1 CAP PO (08:36)
[2023-04-01] MEDS: Potassium Chloride Oral Tablet 20 MEQ PO (08:36)
[2023-04-01] MEDS: Famotidine 20 MG Tablet PO ×2 (08:36→21:33)
[2023-04-01] MEDS: buPROPion (SR) 150 MG Tablet.SA PO ×2 (08:37→21:33)
[2023-04-01] MEDS: Senna/Docusate Sodium 1 Tablet PO ×2 (08:37→21:33)
[2023-04-01] MEDS: Polyethylene Glycol 3350 17 GM PACKET PO (08:37)
[2023-04-01] MEDS: Furosemide 40 MG Tablet PO (08:37)
[2023-04-01] MEDS: Triamcinolone Acetonide 0.1% Cream 15 gm 1 APPLIC TOPICAL (08:38)
[2023-04-01] MEDS: Menthol/Lanolin/Calamine/Znox 113 GM Tube 1 APPLIC TOPICAL ×2 (08:39→21:33)
[2023-04-01] MEDS: Paroxetine 20 MG Tablet 40 MG PO (08:39)
[2023-04-01] MEDS: Miconazole Nitrate 43 GM Bottle 1 APPLIC TOPICAL ×2 (08:39→21:34)
[2023-04-01] MEDS: Calcium Carb/Vitamin D 1 TABLET Tablet PO ×2 (08:40→18:10)
--- NOTE | 2023-04-01 08:49 | NURSING ---
emergency charting utilized 04/01 0700 d/t staffing
[2023-04-01 15:52] VITALS: BP 92/45; PULSE 98; RESP 16; TEMP 37.7; O2SAT 91
--- NOTE | 2023-04-01 16:56 | PHA.CONS_ITS ---
Documented by User: Clinton Abreu 04/01/23 17:36 TCU RX Drug Regimen Review Subjective/Objective Subjective/Objective: Subjective: 72 year old female with below past medical history hospitalized for right distal humerus fracture, underwent right elbow arthroplasty, complicated by multiple right rib fractures, hypotension, admitted to TCU with debility, here for rehabilitation, strengthening, prior to discharge home with family. Objective: Allergies diclofenac [From Voltaren] Allergy (Verified 03/18/23 15:12) Rash hydrocodone [From Vicodin] Adverse Reaction (Verified 03/18/23 15:12) Other Current Medications Generic Name Dose Route Start Last Admin Trade Name Freq PRN Reason Stop Dose Admin Acetaminophen 1,000 mg 03/26/23 17:46 04/01/23 14:12 Acetaminophen 500 Mg Tablet PO 1,000 mg Q6H PRN PRN Administration Pain Score 1-5 Albuterol Sulfate 2 puff 03/26/23 17:00 04/01/23 14:15 Albuterol Ih (6.7 Gm) 1 Puff Inhaler INHALATION 2 puff 4X/DAY CHIDI Administration Bupropion HCl 150 mg 03/26/23 22:00 04/01/23 08:37 Bupropion (Sr) 150 Mg Tablet.Sa PO 150 mg BID CHIDI Administration Calamine/Phenol 1 applic 03/26/23 22:00 04/01/23 08:39 Menthol/Lanolin/Calamine/Znox 113 Gm Tube TOPICAL 1 applic BID CHIDI Administration Protocol Calcium/Vitamin D 1 tablet 03/26/23 17:00 04/01/23 08:40 Calcium Carb/Vitamin D 1 Tablet Tablet PO 1 tablet BIDCM CHIDI Administration Cyclobenzaprine HCl 10 mg 03/31/23 08:03 04/01/23 14:12 Cyclobenzaprine Hcl 10 Mg Tablet PO 10 mg TID PRN PRN Administration MUSCLE SPASM Ergocalciferol 1.25 mg 03/28/23 10:00 03/28/23 09:00 Ergocalciferol 1.25 Mg (50, 000 Unit) Capsule PO 1.25 mg Mo CHIDI Administration Famotidine 20 mg 03/26/23 22:00 04/01/23 08:36 Famotidine 20 Mg Tablet PO 20 mg BID CHIDI Administration Furosemide 40 mg 03/27/23 10:00 04/01/23 08:37 Furosemide 40 Mg Tablet PO 40 mg DAILY CHIDI Administration Lorazepam 0.5 mg 03/26/23 15:15 03/31/23 21:47 Lorazepam 0.5 Mg Tablet PO 0.5 mg Q8H PRN Administration anxiety Magnesium Citrate 300 ml 03/26/23 17:46 Magnesium Citrate 300 Ml PO DAILY PRN Constipation Melatonin 10 mg 03/31/23 22:00 03/31/23 21:46 Melatonin 10 Mg Tablet PO 10 mg QHS CHIDI Administration Miconazole Nitrate 1 applic 03/26/23 22:00 04/01/23 08:39 Miconazole Nitrate 43 Gm Bottle TOPICAL 1 applic BID CHIDI Administration Protocol Multivitamins 1 cap 03/27/23 10:00 04/01/23 08:36 Vitamin B Comp W-C Capsule PO 1 cap DAILY CHIDI Administration Ondansetron HCl 4 mg 03/26/23 15:15 Ondansetron Odt 4 Mg Tablet PO Q8H PRN nausea and vomiting Oxycodone HCl 5 mg 03/26/23 17:46 04/01/23 14:12 Oxycodone 5 Mg Tablet PO 5 mg Q4H PRN PRN Administration Pain Score 6-10 Paroxetine HCl 40 mg 03/27/23 10:00 04/01/23 08:39 Paroxetine 20 Mg Tablet PO 40 mg DAILY CHIDI Administration Polyethylene Glycol 17 gm 03/27/23 10:00 04/01/23 08:37 Polyethylene Glycol 3350 17 Gm Packet PO 17 gm DAILY CHIDI Administration Potassium Chloride 20 meq 03/27/23 10:00 04/01/23 08:36 Potassium Chloride Oral Tablet 20 Meq PO 20 meq DAILY CHIDI Administration Senna/Docusate Sodium 1 tablet 03/26/23 22:00 04/01/23 08:37 Senna/Docusate Sodium 1 Tablet PO 1 tablet BID CHIDI Administration Sodium Chloride 10 - 40 ml 03/26/23 15:31 0.9% Saline Lock 10 Ml Syringe IV UD PRN SALINE FLUSH Triamcinolone Acetonide 1 applic 03/26/23 22:00 04/01/23 08:38 Triamcinolone Acetonide 0.1% Cream 15 Gm TOPICAL 1 applic BID CHIDI Administration Protocol Tuberculin PPD 0.1 ml 04/03/23 10:00 Tuberculin,Purif.Prot.Deriv. 50 Tu/Ml Vial ID 04/03/23 10:01 X1 ONE Problem List (Updated 03/27/23 @ 00:30 by Background Deyanira) Obstructive sleep apnea (Acute) Hypothyroidism (Acute) Vitamin D deficiency (Acute) Muscle spasm (Acute) Heart failure with reduced ejection fraction (Acute) Closed fracture of right distal humerus (Acute) Neuropathic pain (Acute) Iron deficiency anemia (Acute) Depression (Acute) GERD (gastroesophageal reflux disease) (Acute) Debility (Acute) Osteoporosis (Chronic) COPD (chronic obstructive pulmonary disease) (Chronic) Vital Signs Temp Pulse Resp BP Pulse Ox O2 Del Method 99.8 F H 98 16 92/45 L 91 Room Air 04/01/23 15:52 04/01/23 15:52 04/01/23 15:52 04/01/23 15:52 04/01/23 15:52 04/01/23 15:52 Oxygen Delivery Method Room Air Weight: 87.09 kg Body Mass Index (BMI) 38.7 Sodium 138 mmol/L (136-145) 03/27/23 05:24 Potassium 4.3 mmol/L (3.5-5.1) 03/27/23 05:24 Chloride 105 mmol/L (98-107) 03/27/23 05:24 Carbon Dioxide 32.0 mmol/L (21.0-32.0) 03/27/23 05:24 Anion Gap 1 (5-15) L 03/27/23 05:24 BUN 18 mg/dL (7-18) 03/27/23 05:24 Creatinine 0.56 mg/dL (0.55-1.02) 03/27/23 05:24 Est GFR (MDRD) Af Amer 135 mL/min (>60) 03/27/23 05:24 Est GFR (MDRD) Non-Af 111 mL/min (>60) 03/27/23 05:24 BUN/Creatinine Ratio 31.9 RATIO (10-20) H 03/27/23 05:24 Glucose 98 mg/dL (74-106) 03/27/23 05:24 Assessment/Plan: 1. Pain: acetaminophen 1000 mg PO Q6H PRN pain 1-5, Oxycodone 5 mg PO Q4H PRN pain (6-10), cyclobenzaprine 10 mg PO TID PRN muscle spasms. Patient has used 19 doses of oxycodone 5 mg, 3 doses of cyclobenzaprine and 9 doses of acetaminophen 1000 mg. The patients pain scores have ranged 6-8/10 prior to PRN medications and ~2 after medication. Please continue to monitor pain levels, PRN usage, LFTs (AST/ALT = 21/14 on 03/18/23), for ataxia/syncope/falls (oxycodeon Beer's criteria), constipation, anticholinergic effects such as constipation, dry mouth/eyes and urinary retention (cyclobenzaprine Beer's criteria) and respiratory depression. Patient continues to use significant amounts of PRN pain medication, please consider changing acetaminophen to 1000 mg Q8H scheduled to attempt to stay more ahead of pain scores. 2. Bowel: polyethylene glycol 17 gm PO daily, senna/docusate 1 tablet PO BID, magnesium citrate 300 mL PO daily PRN constipation. The patient has not used any PRN doses of magnesium citrate this admission, but has not had a documented bowel movement this admission. Please continue to monitor for constipation/di arrhea. As patient has not had any bowel movements this admission please consider increasing senna/docusate to 2 tablets po BID scheduled, and administer PRN medications if pt does not have bowel movement. 3. COPD: albuterol inhaler, 2 puffs inhaled 4x daily. Please continue to monitor heart rate (recent range 76-115 beats/min), O2 saturation (recent range 91-97% on room air), and respiratory rate (recent range 14-18 breaths/minute). 4. Heart failure with reduced ejection fraction: furosemide 40 mg PO daily. Please continue to monitor for lower extremity edema, s/s of pulmonary congestion including respiratory rate (recent range 14-18 breaths/minute), and O2 saturation (recent range 91-97% on room air), as well as renal function (serum creatinine 0.56 with creatinine clearance ~ 68), potassium level (K = 4.3 mmol/L), and sodium level (Na = 138 mmol/L). 5. Calcium deficiency: calcium carbonate with vitamin D 500 mg PO BID with meals. Please continue to monitor calcium levels (Ca = 8.7 mg/dL on 03/27/23). 6. Vitamin D deficiency: Ergocalciferol 1.25 mg PO weekly on Tuesday. Please continue to monitor vitamin D level (vitamin D level 22.4 ng/mL on 12/19/18). 7. GERD: famotidine 20 mg PO BID. Please continue to monitor for s/s of GERD, for delirium (Beer's criteria), and renal function (serum creatinine 0.56 with creatinine clearance ~ 68). 8. Nausea: ondansetron 4 mg PO Q8H PRN nausea. Patient has not used any PRN doses of ondansetron to this point. Please continue to monitor for nausea, constipation and fatigue. 9. Skin irritation/tinea corporis: calmoseptine 1 application topically BID, miconazole nitrate topically BID, triamcinolone 0.1% topically BID. Please continue to monitor for resolution of tinea corporis and for skin irritation. 10. Insomnia: melatonin 10 mg PO QHS. Please continue to monitor for sedation, and for medication effectiveness. 11. Hypokalemia: potassium chloride 20 mEq oral daily. Please continue to monitor for GI distress and administer with food if it occurs, as well as potassium level (K = 4.3 mmol/L). 12. Leg craps: vitamin B complex with vitamin C 1 capsule PO daily. Please continue to monitor for leg cramps. Assessment/Plan for indications treated with psychotropic medications: 1. Depression: bupropion SR 150 mg Po BID, paroxetine 40 mg PO daily. Please see provider note regarding chronic long-term use, GDR not recommended. Please continue to monitor for SI, anticholinergic side effects including sedation, dry mouth/eyes, urinary retention, constipation, orthostatic hypotension (recent BP range 92-123/43-61 mm Hg),and sodium level (Na = 138 mmol/L). 2. Anxiety: Lorazepam 0.5 mg PO Q8H PRN anxiety. The patient has used 1 dose of PRN lorazepam this admission. Please continue to monitor for sedation, delirium/falls (Beer's criteria), and respiratory depression. Medical chart and medication regimen reviewed. The following medication irregularities or issues were identified: 1. Pain: acetaminophen 1000 mg PO Q6H PRN pain 1-5, Oxycodone 5 mg PO Q4H PRN pain (6-10), cyclobenzaprine 10 mg PO TID PRN muscle spasms. Patient has used 19 doses of oxycodone 5 mg, 3 doses of cyclobenzaprine and 9 doses of acetaminophen 1000 mg. The patients pain scores have ranged 6-8/10 prior to PRN medications and ~2 after medication. Please continue to monitor pain levels, PRN usage, LFTs (AST/ALT = 21/14 on 03/18/23), for ataxia/syncope/falls (oxycodeon Beer's criteria), constipation, anticholinergic effects such as constipation, dry mouth/eyes and urinary retention (cyclobenzaprine Beer's criteria) and respiratory depression. Patient continues to use significant amounts of PRN pain medication, please consider changing acetaminophen to 1000 mg Q8H scheduled to attempt to stay more ahead of pain scores. 2. Bowel: polyethylene glycol 17 gm PO daily, senna/docusate 1 tablet PO BID, magnesium citrate 300 mL PO daily PRN constipation. The patient has not used any PRN doses of magnesium citrate this admission, but has not had a documented bowel movement this admission. Please continue to monitor for constipation/diarrhea. As patient has not had any bowel movements this admission please consider increasing senna/docusate to 2 tablets po BID scheduled, and administer PRN medications if pt does not have bowel movement. Date Date of Note:: 04/01/23 Documented by User: Dr. Kishan Espinal MD 04/01/23 17:55 TCU RX Drug Regimen Review Provider Comments Provider responsibility Provider Comments to Recommendations by Pharmacy: Agree
[2023-04-01 20:25] VITALS: PULSE 78; RESP 18; O2SAT 96
[2023-04-01] MEDS: LORazepam 0.5 MG Tablet PO (21:31)
[2023-04-01] MEDS: MELATONIN 10 MG TABLET PO (21:33)
[2023-04-02] MEDS: oxyCODONE 5 MG Tablet PO ×4 (03:09→21:21)
[2023-04-02] MEDS: Albuterol IH (6.7 GM) 1 PUFF INHALER 2 PUFF INHALATION ×4 (05:37→21:28)
[2023-04-02] MEDS: Calcium Carb/Vitamin D 1 TABLET Tablet PO ×2 (08:20→17:17)
[2023-04-02] MEDS: Potassium Chloride Oral Tablet 20 MEQ PO (10:26)
[2023-04-02] MEDS: Miconazole Nitrate 43 GM Bottle 1 APPLIC TOPICAL ×2 (10:26→21:31)
[2023-04-02] MEDS: Menthol/Lanolin/Calamine/Znox 113 GM Tube 1 APPLIC TOPICAL ×2 (10:26→21:31)
[2023-04-02] MEDS: Vitamin B Comp W-C Capsule 1 CAP PO (10:26)
[2023-04-02] MEDS: Paroxetine 20 MG Tablet 40 MG PO (10:27)
[2023-04-02] MEDS: Polyethylene Glycol 3350 17 GM PACKET PO (10:27)
[2023-04-02] MEDS: Furosemide 40 MG Tablet PO (10:27)
[2023-04-02] MEDS: Famotidine 20 MG Tablet PO ×2 (10:28→21:24)
[2023-04-02] MEDS: Senna/Docusate Sodium 1 Tablet PO ×2 (10:28→21:25)
[2023-04-02] MEDS: Triamcinolone Acetonide 0.1% Cream 15 gm 1 APPLIC TOPICAL (10:28)
[2023-04-02] MEDS: buPROPion (SR) 150 MG Tablet.SA PO ×2 (10:38→21:25)
[2023-04-02] MEDS: LORazepam 0.5 MG Tablet PO (13:56)
[2023-04-02 14:03] VITALS: BP 102/50; PULSE 106; RESP 18; TEMP 36.5; O2SAT 93
[2023-04-02] MEDS: Acetaminophen 500 MG Tablet 1000 MG PO (21:23)
[2023-04-02] MEDS: MELATONIN 10 MG TABLET PO (21:24)
[2023-04-03] MEDS: oxyCODONE 5 MG Tablet PO ×2 (02:24→19:29)
[2023-04-03] MEDS: Acetaminophen 500 MG Tablet 1000 MG PO ×2 (05:51→19:30)
[2023-04-03] MEDS: Albuterol IH (6.7 GM) 1 PUFF INHALER 2 PUFF INHALATION ×4 (05:52→19:30)
[2023-04-03 06:11] LABS: Absolute Lymphocyte Count 2.41 X10^3/uL (0.83-4.51); Absolute Neutrophil Count 2.9 X10^3/uL (2.0-7.7); Basophil# 0.08 X10^3/uL; Basophil% 1.3 % (0-1); Eosinophil# 0.19 X10^3/uL; Eosinophils% 3.1 % (0-5); Hematocrit 32.2 % (37-47); Lymphocyte # 2.41 X10^3/ul (0.83-4.51); Lymphocyte % 39.9 % (19-41); Mean Corp Hgb Conc 31.1 g/dL (32-36); Mean Platelet Vol. 8.3 fl (6.2-12.0); Monocyte# 0.42 X10^3/uL; NRBC Flagged by Analyzer 0 % (0-5); Platelet Count 506 K/mm3 (150-450); RBC Distribution Width CV 15.7 % (11.6-14.6); RBC Distribution Width SD 48.8 fl (35.1-43.9)
[2023-04-03 06:39] LABS: Anion Gap 2 (5-15); BUN 28 mg/dL (7-18); BUN/Creat Ratio 33.1 RATIO (10-20); Calcium,Total 8.9 mg/dL (8.5-10.1); Chloride 103 mmol/L (98-107); Creatinine, Serum 0.85 mg/dL (0.55-1.02); EST Glomerular Filtration Rate 70 mL/min (>60); Est Glom Filt Rate - Afr Amer 84 mL/min (>60); Estimated Creatinine Clearance 79.83 ml/min; Glucose 107 mg/dL (74-106); Sodium Level 138 mmol/L (136-145)
[2023-04-03] MEDS: Polyethylene Glycol 3350 17 GM PACKET PO (09:13)
[2023-04-03] MEDS: Potassium Chloride Oral Tablet 20 MEQ PO (09:28)
[2023-04-03] MEDS: buPROPion (SR) 150 MG Tablet.SA PO ×2 (09:29→19:32)
[2023-04-03] MEDS: Famotidine 20 MG Tablet PO ×2 (09:29→19:31)
[2023-04-03] MEDS: Paroxetine 20 MG Tablet 40 MG PO (09:29)
[2023-04-03] MEDS: Vitamin B Comp W-C Capsule 1 CAP PO (09:29)
[2023-04-03] MEDS: Furosemide 40 MG Tablet PO (09:30)
[2023-04-03] MEDS: Calcium Carb/Vitamin D 1 TABLET Tablet PO ×2 (09:30→16:31)
[2023-04-03] MEDS: Miconazole Nitrate 43 GM Bottle 1 APPLIC TOPICAL ×2 (09:30→19:35)
[2023-04-03] MEDS: Menthol/Lanolin/Calamine/Znox 113 GM Tube 1 APPLIC TOPICAL ×2 (09:30→19:36)
[2023-04-03] MEDS: Tuberculin,Purif.prot.deriv. 50 TU/ML Vial 0.1 ML ID (09:32)
[2023-04-03] MEDS: cycloBENZAPRine HCl 10 MG Tablet PO ×2 (12:56→21:08)
[2023-04-03 15:47] VITALS: BP 94/55; PULSE 95; RESP 16; TEMP 37.3; O2SAT 95
[2023-04-03] MEDS: MELATONIN 10 MG TABLET PO (19:31)
[2023-04-03 20:33] VITALS: PULSE 104; RESP 16; O2SAT 94
[2023-04-04] MEDS: oxyCODONE 5 MG Tablet PO ×4 (00:07→22:36)
[2023-04-04] MEDS: Acetaminophen 500 MG Tablet 1000 MG PO ×2 (01:59→10:38)
[2023-04-04] MEDS: Albuterol IH (6.7 GM) 1 PUFF INHALER 2 PUFF INHALATION ×4 (06:13→22:40)
--- NOTE | 2023-04-04 08:38 | NURSING ---
[employer] [employer] [facility] [employer] Automatic Note; MDS for 04/02/2023 Complete
[2023-04-04] MEDS: Ergocalciferol 1.25 MG (50, 000 UNIT) Capsule PO (10:34)
[2023-04-04] MEDS: buPROPion (SR) 150 MG Tablet.SA PO ×2 (10:34→22:39)
[2023-04-04] MEDS: Famotidine 20 MG Tablet PO ×2 (10:34→22:39)
[2023-04-04] MEDS: Paroxetine 20 MG Tablet 40 MG PO (10:34)
[2023-04-04] MEDS: Vitamin B Comp W-C Capsule 1 CAP PO (10:34)
[2023-04-04] MEDS: Furosemide 40 MG Tablet PO (10:34)
[2023-04-04] MEDS: Calcium Carb/Vitamin D 1 TABLET Tablet PO ×2 (10:34→16:52)
[2023-04-04] MEDS: Potassium Chloride Oral Tablet 20 MEQ PO (10:34)
[2023-04-04] MEDS: Menthol/Lanolin/Calamine/Znox 113 GM Tube 1 APPLIC TOPICAL ×2 (10:38→22:37)
[2023-04-04] MEDS: Miconazole Nitrate 43 GM Bottle 1 APPLIC TOPICAL ×2 (10:39→22:37)
[2023-04-04 12:17] VITALS: BMI 33.6
[2023-04-04] MEDS: cycloBENZAPRine HCl 10 MG Tablet PO (13:50)
[2023-04-04 15:20] VITALS: BP 98/51; PULSE 95; RESP 14; TEMP 35.9; O2SAT 93
--- NOTE | 2023-04-04 16:20 | NURSING ---
This nurse spoke to Vaishnavi in therapy. She voiced that at 1230 on 04/05/23 pt will practice car transfers. If pt tolerates transfers well pt will be driven by family to f/u appt. If unable to perform car transfers family will arrange private w/c transportation for pt. F/u appt. to be scheduled after the practice car transfers.
[2023-04-04] MEDS: MELATONIN 10 MG TABLET PO (22:39)
[2023-04-05] MEDS: oxyCODONE 5 MG Tablet PO ×4 (02:46→21:39)
[2023-04-05] MEDS: Albuterol IH (6.7 GM) 1 PUFF INHALER 2 PUFF INHALATION ×4 (05:01→21:41)
[2023-04-05] MEDS: cycloBENZAPRine HCl 10 MG Tablet PO ×2 (05:06→12:16)
[2023-04-05] MEDS: Potassium Chloride Oral Tablet 20 MEQ PO (08:47)
[2023-04-05] MEDS: Furosemide 40 MG Tablet PO (08:47)
[2023-04-05] MEDS: Famotidine 20 MG Tablet PO ×2 (08:47→21:41)
[2023-04-05] MEDS: Vitamin B Comp W-C Capsule 1 CAP PO (08:47)
[2023-04-05] MEDS: Calcium Carb/Vitamin D 1 TABLET Tablet PO ×2 (08:47→17:25)
[2023-04-05] MEDS: Paroxetine 20 MG Tablet 40 MG PO (08:47)
[2023-04-05] MEDS: buPROPion (SR) 150 MG Tablet.SA PO ×2 (08:47→21:41)
[2023-04-05] MEDS: Menthol/Lanolin/Calamine/Znox 113 GM Tube 1 APPLIC TOPICAL ×2 (08:53→21:44)
[2023-04-05] MEDS: Miconazole Nitrate 43 GM Bottle 1 APPLIC TOPICAL ×2 (08:54→21:44)
[2023-04-05 08:58] VITALS: PULSE 105; RESP 16; O2SAT 97
[2023-04-05 09:09] VITALS: BP 102/50; PULSE 105; RESP 16; TEMP 36.7; O2SAT 97
[2023-04-05] MEDS: Acetaminophen 500 MG Tablet 1000 MG PO (11:02)
[2023-04-05 13:11] VITALS: BMI 34.5
[2023-04-05] MEDS: MELATONIN 10 MG TABLET PO (21:41)
[2023-04-06] MEDS: oxyCODONE 5 MG Tablet PO ×5 (02:48→21:00)
[2023-04-06] MEDS: cycloBENZAPRine HCl 10 MG Tablet PO (04:57)
[2023-04-06] MEDS: Albuterol IH (6.7 GM) 1 PUFF INHALER 2 PUFF INHALATION ×4 (05:00→20:40)
[2023-04-06] MEDS: Calcium Carb/Vitamin D 1 TABLET Tablet PO ×2 (07:57→16:57)
[2023-04-06] MEDS: Paroxetine 20 MG Tablet 40 MG PO (07:57)
[2023-04-06] MEDS: Famotidine 20 MG Tablet PO ×2 (07:57→20:41)
[2023-04-06] MEDS: buPROPion (SR) 150 MG Tablet.SA PO ×2 (07:57→20:41)
[2023-04-06] MEDS: Vitamin B Comp W-C Capsule 1 CAP PO (07:58)
[2023-04-06] MEDS: Furosemide 40 MG Tablet PO (07:58)
[2023-04-06] MEDS: Potassium Chloride Oral Tablet 20 MEQ PO (07:58)
[2023-04-06] MEDS: Menthol/Lanolin/Calamine/Znox 113 GM Tube 1 APPLIC TOPICAL ×2 (07:58→20:41)
[2023-04-06] MEDS: Senna/Docusate Sodium 1 Tablet PO ×2 (07:59→20:41)
[2023-04-06] MEDS: Miconazole Nitrate 43 GM Bottle 1 APPLIC TOPICAL ×2 (08:01→20:41)
[2023-04-06 15:03] VITALS: BP 96/48; PULSE 93; RESP 16; TEMP 36.5; O2SAT 98
[2023-04-06 16:00] VITALS: BP 100/52
[2023-04-06] MEDS: MELATONIN 10 MG TABLET PO (20:41)
[2023-04-07] MEDS: oxyCODONE 5 MG Tablet PO ×3 (03:45→18:01)
[2023-04-07] MEDS: Albuterol IH (6.7 GM) 1 PUFF INHALER 2 PUFF INHALATION ×4 (06:28→19:59)
[2023-04-07] MEDS: cycloBENZAPRine HCl 10 MG Tablet PO ×2 (09:22→19:59)
[2023-04-07] MEDS: Furosemide 40 MG Tablet PO (09:23)
[2023-04-07] MEDS: Potassium Chloride Oral Tablet 20 MEQ PO (09:23)
[2023-04-07] MEDS: Vitamin B Comp W-C Capsule 1 CAP PO (09:23)
[2023-04-07] MEDS: Paroxetine 20 MG Tablet 40 MG PO (09:23)
[2023-04-07] MEDS: Famotidine 20 MG Tablet PO ×2 (09:23→19:59)
[2023-04-07] MEDS: Calcium Carb/Vitamin D 1 TABLET Tablet PO ×2 (09:23→18:01)
[2023-04-07] MEDS: buPROPion (SR) 150 MG Tablet.SA PO ×2 (09:23→20:00)
[2023-04-07] MEDS: Senna/Docusate Sodium 1 Tablet PO ×2 (09:23→20:00)
[2023-04-07] MEDS: Triamcinolone Acetonide 0.1% Cream 15 gm 1 APPLIC TOPICAL ×2 (09:25→19:59)
[2023-04-07] MEDS: Miconazole Nitrate 43 GM Bottle 1 APPLIC TOPICAL ×2 (09:25→20:01)
[2023-04-07] MEDS: Menthol/Lanolin/Calamine/Znox 113 GM Tube 1 APPLIC TOPICAL ×2 (09:26→20:03)
[2023-04-07 10:00] VITALS: PULSE 88; RESP 14; O2SAT 96
--- NOTE | 2023-04-07 15:18 | MDS.RN ---
Information for the mds was obtained from review of the clinical record, interview of resident, staff, and direct observation of resident's care.
[2023-04-07 16:00] VITALS: BP 101/60; PULSE 109; RESP 14; TEMP 36.4; O2SAT 94
--- NOTE | 2023-04-07 18:21 | RAD_ITS ---
STUDY: X-RAY - LUMBAR SPINE REASON FOR EXAM: Female, 73 years old. low back pain TECHNIQUE: 4 view(s) of the lumbar spine were obtained. COMPARISON: None FINDINGS: Normal lumbar lordosis. There is no substantial scoliosis. There is a normal alignment of the vertebrae. There is diffuse demineralization with multi-level endplate spondylosis. There is multi-level degenerative disc disease with multi-level disc space narrowing. This is more severe at L5-S1 where there is vacuum phenomenon with significant decrease in vertebral body height. Decrease in vertebral body height throughout multiple levels of the spine, more severe at L1, L3 and L4 with biconcave shape suggestive of chronic osteoporotic induced compression fractures. There is multilevel bilateral facet hypertrophy, more severe from L3 to S1. No distinct pars defect is visualized although this area is partially limited due to superimposition artifact. Postoperative changes suggestive of ventral hernia repair noted with right upper quadrant surgical clips. Multiple clips in the left paraspinal region just below the left hemidiaphragm noted. Calcifications throughout the aorta noted. RAD/L/S Spine Min 4 Views IMPRESSION: Diffuse osteoporosis with multiple osteoporotic induced chronic fractures most severe at L1, L3 and L4. Multilevel degenerative disease. No spondylolisthesis or obvious pars defect. Electronically Signed: Radha Rae MD at 18:42 EDT ,
[2023-04-07] MEDS: MELATONIN 10 MG TABLET PO (20:00)
[2023-04-08] MEDS: oxyCODONE 5 MG Tablet PO ×2 (03:06→17:31)
[2023-04-08] MEDS: Albuterol IH (6.7 GM) 1 PUFF INHALER 2 PUFF INHALATION ×4 (05:41→21:39)
[2023-04-08] MEDS: LORazepam 0.5 MG Tablet PO (05:41)
[2023-04-08] MEDS: buPROPion (SR) 150 MG Tablet.SA PO ×2 (09:40→21:39)
[2023-04-08] MEDS: Senna/Docusate Sodium 1 Tablet PO ×2 (09:40→21:38)
[2023-04-08] MEDS: Potassium Chloride Oral Tablet 20 MEQ PO (09:40)
[2023-04-08] MEDS: Famotidine 20 MG Tablet PO ×2 (09:40→21:39)
[2023-04-08] MEDS: Calcium Carb/Vitamin D 1 TABLET Tablet PO ×2 (09:40→17:22)
[2023-04-08] MEDS: Furosemide 40 MG Tablet PO (09:40)
[2023-04-08] MEDS: Vitamin B Comp W-C Capsule 1 CAP PO (09:40)
[2023-04-08] MEDS: Paroxetine 20 MG Tablet 40 MG PO (09:41)
[2023-04-08] MEDS: Miconazole Nitrate 43 GM Bottle 1 APPLIC TOPICAL ×2 (09:43→21:36)
[2023-04-08] MEDS: Triamcinolone Acetonide 0.1% Cream 15 gm 1 APPLIC TOPICAL (09:44)
[2023-04-08] MEDS: Menthol/Lanolin/Calamine/Znox 113 GM Tube 1 APPLIC TOPICAL ×2 (09:44→21:37)
[2023-04-08 09:45] VITALS: BP 94/49; PULSE 111; RESP 16; TEMP 36.3; O2SAT 95
--- NOTE | 2023-04-08 11:04 | NURSING ---
Offered flu vaccine, patient wants to think about it, she'll notify nurse if she decides to get it while on TCU.
[2023-04-08] MEDS: MELATONIN 10 MG TABLET PO (21:38)
[2023-04-08] MEDS: cycloBENZAPRine HCl 10 MG Tablet PO (21:39)
[2023-04-09] MEDS: oxyCODONE 5 MG Tablet PO ×3 (02:17→22:27)
[2023-04-09] MEDS: Albuterol IH (6.7 GM) 1 PUFF INHALER 2 PUFF INHALATION ×4 (05:36→22:29)
[2023-04-09 09:14] VITALS: BP 91/61; PULSE 100; RESP 16; TEMP 37.2; O2SAT 96
[2023-04-09] MEDS: Menthol/Lanolin/Calamine/Znox 113 GM Tube 1 APPLIC TOPICAL ×2 (09:20→22:29)
[2023-04-09] MEDS: Calcium Carb/Vitamin D 1 TABLET Tablet PO ×2 (09:20→16:48)
[2023-04-09] MEDS: Vitamin B Comp W-C Capsule 1 CAP PO (09:20)
[2023-04-09] MEDS: Senna/Docusate Sodium 1 Tablet PO ×2 (09:21→22:27)
[2023-04-09] MEDS: Potassium Chloride Oral Tablet 20 MEQ PO (09:21)
[2023-04-09] MEDS: buPROPion (SR) 150 MG Tablet.SA PO ×2 (09:21→22:27)
[2023-04-09] MEDS: Famotidine 20 MG Tablet PO ×2 (09:21→22:27)
[2023-04-09] MEDS: Paroxetine 20 MG Tablet 40 MG PO (09:21)
[2023-04-09] MEDS: Acetaminophen 500 MG Tablet 1000 MG PO (13:22)
[2023-04-09] MEDS: cycloBENZAPRine HCl 10 MG Tablet PO ×2 (16:52→22:27)
[2023-04-09] MEDS: MELATONIN 10 MG TABLET PO (22:27)
[2023-04-09] MEDS: LORazepam 0.5 MG Tablet PO (22:28)
[2023-04-09] MEDS: Triamcinolone Acetonide 0.1% Cream 15 gm 1 APPLIC TOPICAL (22:28)
[2023-04-09] MEDS: Miconazole Nitrate 43 GM Bottle 1 APPLIC TOPICAL (22:29)
[2023-04-10] MEDS: Acetaminophen 500 MG Tablet 1000 MG PO ×3 (03:42→20:37)
[2023-04-10] MEDS: oxyCODONE 5 MG Tablet PO ×3 (03:42→20:36)
[2023-04-10] MEDS: Albuterol IH (6.7 GM) 1 PUFF INHALER 2 PUFF INHALATION ×3 (05:17→20:35)
[2023-04-10 07:05] LABS: Absolute Lymphocyte Count 2.35 X10^3/uL (0.83-4.51); Basophil# 0.07 X10^3/uL; Basophil% 1.4 % (0-1); Eosinophil# 0.16 X10^3/uL; Eosinophils% 3.2 % (0-5); Hematocrit 30.9 % (37-47); Hemoglobin 9.4 g/dL (12.0-15.0); Lymphocyte # 2.35 X10^3/ul (0.83-4.51); Lymphocyte % 46.8 % (19-41); Mean Corp Hgb Conc 30.4 g/dL (32-36); Mean Corpuscular Hgb 26.7 pg (27.0-32.0); Mean Corpuscular Volume 87.8 fL (81-99); Mean Platelet Vol. 9.2 fl (6.2-12.0); NRBC Flagged by Analyzer 0 % (0-5); Neutrophil # 2.02 X10^3/uL (2.7-7.7); Neutrophil % 40.2 % (47-70); Platelet Count 407 K/mm3 (150-450); RBC Distribution Width CV 16.2 % (11.6-14.6); RBC Distribution Width SD 51.9 fl (35.1-43.9); Red Blood Count 3.52 M/mm3 (4.2-5.4)
[2023-04-10 07:37] LABS: Anion Gap 2 (5-15); BUN 32 mg/dL (7-18); BUN/Creat Ratio 47.7 RATIO (10-20); Calcium,Total 8.5 mg/dL (8.5-10.1); Chloride 109 mmol/L (98-107); Creatinine, Serum 0.67 mg/dL (0.55-1.02); EST Glomerular Filtration Rate 91 mL/min (>60); Est Glom Filt Rate - Afr Amer 110 mL/min (>60); Estimated Creatinine Clearance 59.69 ml/min; Glucose 80 mg/dL (74-106); Potassium 4.1 mmol/L (3.5-5.1); Sodium Level 140 mmol/L (136-145)
[2023-04-10 10:08] VITALS: BP 97/52; PULSE 95; RESP 17; TEMP 36.9; O2SAT 94
[2023-04-10] MEDS: Menthol/Lanolin/Calamine/Znox 113 GM Tube 1 APPLIC TOPICAL ×2 (10:22→20:36)
[2023-04-10] MEDS: Vitamin B Comp W-C Capsule 1 CAP PO (10:22)
[2023-04-10] MEDS: Calcium Carb/Vitamin D 1 TABLET Tablet PO ×2 (10:22→17:51)
[2023-04-10] MEDS: Famotidine 20 MG Tablet PO ×2 (10:23→20:40)
[2023-04-10] MEDS: Paroxetine 20 MG Tablet 40 MG PO (10:23)
[2023-04-10] MEDS: Senna/Docusate Sodium 1 Tablet PO ×2 (10:23→20:39)
[2023-04-10] MEDS: Potassium Chloride Oral Tablet 20 MEQ PO (10:23)
[2023-04-10] MEDS: buPROPion (SR) 150 MG Tablet.SA PO ×2 (10:23→20:38)
[2023-04-10] MEDS: cycloBENZAPRine HCl 10 MG Tablet PO ×2 (14:27→20:37)
[2023-04-10] MEDS: Miconazole Nitrate 43 GM Bottle 1 APPLIC TOPICAL (20:36)
[2023-04-10] MEDS: MELATONIN 10 MG TABLET PO (20:39)
[2023-04-10] MEDS: Triamcinolone Acetonide 0.1% Cream 15 gm 1 APPLIC TOPICAL (20:40)
--- NOTE | 2023-04-10 21:15 | NURSING ---
Spoke w/ Dr. Espinal via phone to update on pt request to have Miralax changed to PRN from routine. Telephone order received and read back.
[2023-04-11] MEDS: Acetaminophen 500 MG Tablet 1000 MG PO ×2 (03:26→12:08)
[2023-04-11] MEDS: oxyCODONE 5 MG Tablet PO ×3 (03:26→20:08)
[2023-04-11] MEDS: Albuterol IH (6.7 GM) 1 PUFF INHALER 2 PUFF INHALATION ×4 (07:06→22:04)
[2023-04-11] MEDS: buPROPion (SR) 150 MG Tablet.SA PO ×2 (08:30→22:04)
[2023-04-11] MEDS: Paroxetine 20 MG Tablet 40 MG PO (08:30)
[2023-04-11] MEDS: Miconazole Nitrate 43 GM Bottle 1 APPLIC TOPICAL (08:31)
[2023-04-11] MEDS: Senna/Docusate Sodium 1 Tablet PO ×2 (08:31→22:04)
[2023-04-11] MEDS: Potassium Chloride Oral Tablet 20 MEQ PO (08:31)
[2023-04-11] MEDS: Calcium Carb/Vitamin D 1 TABLET Tablet PO ×2 (08:31→16:49)
[2023-04-11] MEDS: Vitamin B Comp W-C Capsule 1 CAP PO (08:31)
[2023-04-11] MEDS: Famotidine 20 MG Tablet PO ×2 (08:31→22:04)
[2023-04-11] MEDS: Ergocalciferol 1.25 MG (50, 000 UNIT) Capsule PO (08:31)
[2023-04-11] MEDS: Menthol/Lanolin/Calamine/Znox 113 GM Tube 1 APPLIC TOPICAL ×2 (08:32→22:03)
[2023-04-11] MEDS: Triamcinolone Acetonide 0.1% Cream 15 gm 1 APPLIC TOPICAL (11:08)
[2023-04-11 11:12] VITALS: BP 90/57; PULSE 99
--- NOTE | 2023-04-11 13:55 | NURSING ---
Updated patient and family (at bedside) that unit has covid positive patient.
[2023-04-11 15:09] VITALS: BP 104/48; PULSE 90; RESP 16; TEMP 36.1; O2SAT 93
[2023-04-11 22:00] VITALS: RESP 16
[2023-04-11] MEDS: MELATONIN 10 MG TABLET PO (22:04)
[2023-04-11] MEDS: cycloBENZAPRine HCl 10 MG Tablet PO (22:08)
[2023-04-12] MEDS: oxyCODONE 5 MG Tablet PO ×3 (03:24→20:59)
[2023-04-12] MEDS: Albuterol IH (6.7 GM) 1 PUFF INHALER 2 PUFF INHALATION ×4 (05:47→21:01)
[2023-04-12 05:48] LABS: Hematocrit 32.9 % (37-47); Hemoglobin 10.1 g/dL (12.0-15.0)
[2023-04-12] MEDS: Senna/Docusate Sodium 1 Tablet PO (08:25)
[2023-04-12] MEDS: Potassium Chloride Oral Tablet 20 MEQ PO (08:25)
[2023-04-12] MEDS: Paroxetine 20 MG Tablet 40 MG PO (08:25)
[2023-04-12] MEDS: Calcium Carb/Vitamin D 1 TABLET Tablet PO ×2 (08:25→17:53)
[2023-04-12] MEDS: Famotidine 20 MG Tablet PO ×2 (08:25→21:01)
[2023-04-12] MEDS: buPROPion (SR) 150 MG Tablet.SA PO ×2 (08:25→21:00)
[2023-04-12] MEDS: Vitamin B Comp W-C Capsule 1 CAP PO (08:25)
[2023-04-12] MEDS: Menthol/Lanolin/Calamine/Znox 113 GM Tube 1 APPLIC TOPICAL ×2 (08:26→21:04)
[2023-04-12] MEDS: Miconazole Nitrate 43 GM Bottle 1 APPLIC TOPICAL ×2 (08:26→21:04)
[2023-04-12 14:01] VITALS: BMI 35.2
[2023-04-12 15:47] VITALS: BP 100/55; PULSE 109; RESP 16; TEMP 37; O2SAT 99
[2023-04-12] MEDS: Acetaminophen 500 MG Tablet 1000 MG PO (15:52)
[2023-04-12] MEDS: cycloBENZAPRine HCl 10 MG Tablet PO (20:59)
[2023-04-12] MEDS: MELATONIN 10 MG TABLET PO (21:00)
[2023-04-12] MEDS: Furosemide 40 MG Tablet PO (21:01)
[2023-04-13] MEDS: Albuterol IH (6.7 GM) 1 PUFF INHALER 2 PUFF INHALATION ×4 (05:53→22:02)
[2023-04-13] MEDS: Calcium Carb/Vitamin D 1 TABLET Tablet PO ×2 (08:42→17:41)
[2023-04-13] MEDS: buPROPion (SR) 150 MG Tablet.SA PO ×2 (08:44→22:00)
[2023-04-13] MEDS: Famotidine 20 MG Tablet PO ×2 (08:45→22:00)
[2023-04-13] MEDS: Potassium Chloride Oral Tablet 20 MEQ PO (08:45)
[2023-04-13] MEDS: Menthol/Lanolin/Calamine/Znox 113 GM Tube 1 APPLIC TOPICAL ×2 (08:45→22:01)
[2023-04-13] MEDS: Paroxetine 20 MG Tablet 40 MG PO (08:45)
[2023-04-13] MEDS: Vitamin B Comp W-C Capsule 1 CAP PO (08:45)
[2023-04-13] MEDS: Miconazole Nitrate 43 GM Bottle 1 APPLIC TOPICAL ×2 (08:46→22:01)
[2023-04-13] MEDS: Acetaminophen 500 MG Tablet 1000 MG PO (12:10)
[2023-04-13] MEDS: oxyCODONE 5 MG Tablet PO (12:11)
--- NOTE | 2023-04-13 15:26 | NURSING ---
Pt returned from Ortho appt. no seen d/t appt being at a different building.
[2023-04-13 15:39] VITALS: BP 94/55; PULSE 104; RESP 14; TEMP 36.3; O2SAT 97
[2023-04-13] MEDS: MELATONIN 10 MG TABLET PO (22:00)
[2023-04-13] MEDS: Furosemide 40 MG Tablet PO (22:00)
[2023-04-13 22:09] VITALS: PULSE 102; RESP 16; O2SAT 97
[2023-04-14] MEDS: Albuterol IH (6.7 GM) 1 PUFF INHALER 2 PUFF INHALATION ×4 (05:33→21:02)
[2023-04-14 05:34] VITALS: PULSE 84; RESP 16; O2SAT 96
[2023-04-14] MEDS: Calcium Carb/Vitamin D 1 TABLET Tablet PO ×2 (09:43→17:59)
[2023-04-14] MEDS: Potassium Chloride Oral Tablet 20 MEQ PO (09:43)
[2023-04-14] MEDS: Vitamin B Comp W-C Capsule 1 CAP PO (09:43)
[2023-04-14] MEDS: Famotidine 20 MG Tablet PO ×2 (09:44→21:03)
[2023-04-14] MEDS: Paroxetine 20 MG Tablet 40 MG PO (09:44)
[2023-04-14] MEDS: buPROPion (SR) 150 MG Tablet.SA PO ×2 (09:44→21:02)
[2023-04-14] MEDS: Menthol/Lanolin/Calamine/Znox 113 GM Tube 1 APPLIC TOPICAL ×2 (09:45→21:02)
[2023-04-14] MEDS: Miconazole Nitrate 43 GM Bottle 1 APPLIC TOPICAL ×2 (09:45→21:01)
[2023-04-14] MEDS: cycloBENZAPRine HCl 10 MG Tablet PO ×2 (09:49→21:14)
[2023-04-14] MEDS: oxyCODONE 5 MG Tablet PO ×2 (09:50→20:25)
[2023-04-14] MEDS: Triamcinolone Acetonide 0.1% Cream 15 gm 1 APPLIC TOPICAL ×2 (11:26→21:03)
--- NOTE | 2023-04-14 14:42 | NURSING ---
Updated patient and family that staff and patient tested covid positive.
[2023-04-14 16:00] VITALS: BP 102/65; PULSE 93; RESP 16; TEMP 36.3; O2SAT 98
[2023-04-14] MEDS: MELATONIN 10 MG TABLET PO (21:03)
[2023-04-14] MEDS: Furosemide 40 MG Tablet PO (21:03)
[2023-04-15] MEDS: oxyCODONE 5 MG Tablet PO ×3 (02:26→18:27)
[2023-04-15] MEDS: Albuterol IH (6.7 GM) 1 PUFF INHALER 2 PUFF INHALATION ×4 (05:42→21:34)
[2023-04-15 05:47] VITALS: PULSE 75; RESP 18; O2SAT 95
[2023-04-15] MEDS: Acetaminophen 500 MG Tablet 1000 MG PO (07:49)
[2023-04-15] MEDS: Calcium Carb/Vitamin D 1 TABLET Tablet PO ×2 (07:50→18:19)
[2023-04-15] MEDS: Potassium Chloride Oral Tablet 20 MEQ PO (07:50)
[2023-04-15] MEDS: Famotidine 20 MG Tablet PO ×2 (07:51→21:35)
[2023-04-15] MEDS: Paroxetine 20 MG Tablet 40 MG PO (07:52)
[2023-04-15] MEDS: Vitamin B Comp W-C Capsule 1 CAP PO (07:52)
[2023-04-15] MEDS: Miconazole Nitrate 43 GM Bottle 1 APPLIC TOPICAL ×2 (07:52→21:37)
[2023-04-15] MEDS: Menthol/Lanolin/Calamine/Znox 113 GM Tube 1 APPLIC TOPICAL (07:53)
[2023-04-15] MEDS: Triamcinolone Acetonide 0.1% Cream 15 gm 1 APPLIC TOPICAL ×2 (07:55→21:36)
[2023-04-15] MEDS: buPROPion (SR) 150 MG Tablet.SA PO ×2 (08:22→21:34)
--- NOTE | 2023-04-15 12:15 | NURSING ---
Patient back from ortho follow-up, orders as follows: Active motion as tolerated Gentle passive Lifting weight bearing restriction of less than 10lbs
[2023-04-15] MEDS: cycloBENZAPRine HCl 10 MG Tablet PO ×2 (12:22→18:27)
[2023-04-15 13:33] VITALS: BP 108/59; PULSE 90; RESP 16; TEMP 36.1; O2SAT 96
[2023-04-15 20:03] VITALS: PULSE 83; RESP 18; O2SAT 94
[2023-04-15] MEDS: Furosemide 40 MG Tablet PO (21:34)
[2023-04-15] MEDS: MELATONIN 10 MG TABLET PO (21:35)
[2023-04-16] MEDS: oxyCODONE 5 MG Tablet PO ×4 (01:06→19:48)
[2023-04-16] MEDS: cycloBENZAPRine HCl 10 MG Tablet PO ×2 (01:12→22:59)
[2023-04-16] MEDS: Albuterol IH (6.7 GM) 1 PUFF INHALER 2 PUFF INHALATION ×4 (05:20→22:58)
[2023-04-16] MEDS: Senna/Docusate Sodium 1 Tablet PO ×2 (09:40→22:59)
[2023-04-16] MEDS: Miconazole Nitrate 43 GM Bottle 1 APPLIC TOPICAL ×2 (09:41→23:01)
[2023-04-16] MEDS: Potassium Chloride Oral Tablet 20 MEQ PO (09:41)
[2023-04-16] MEDS: Calcium Carb/Vitamin D 1 TABLET Tablet PO ×2 (09:41→17:07)
[2023-04-16] MEDS: Famotidine 20 MG Tablet PO ×2 (09:41→22:59)
[2023-04-16] MEDS: Vitamin B Comp W-C Capsule 1 CAP PO (09:41)
[2023-04-16] MEDS: Menthol/Lanolin/Calamine/Znox 113 GM Tube 1 APPLIC TOPICAL ×2 (09:41→22:58)
[2023-04-16] MEDS: buPROPion (SR) 150 MG Tablet.SA PO ×2 (09:41→22:59)
[2023-04-16] MEDS: Triamcinolone Acetonide 0.1% Cream 15 gm 1 APPLIC TOPICAL ×2 (09:42→23:00)
[2023-04-16] MEDS: Paroxetine 20 MG Tablet 40 MG PO (09:42)
[2023-04-16] MEDS: Acetaminophen 500 MG Tablet 1000 MG PO ×2 (12:49→19:48)
[2023-04-16 15:14] VITALS: BP 101/48; PULSE 85; RESP 16; TEMP 36.8; O2SAT 93
[2023-04-16] MEDS: MELATONIN 10 MG TABLET PO (22:59)
[2023-04-16 23:00] VITALS: O2SAT 93
[2023-04-16] MEDS: LORazepam 0.5 MG Tablet PO (23:00)
[2023-04-16] MEDS: Furosemide 40 MG Tablet PO (23:04)
[2023-04-17] MEDS: Acetaminophen 500 MG Tablet 1000 MG PO ×2 (06:00→21:44)
[2023-04-17] MEDS: oxyCODONE 5 MG Tablet PO ×3 (06:01→21:45)
[2023-04-17] MEDS: Albuterol IH (6.7 GM) 1 PUFF INHALER 2 PUFF INHALATION ×4 (06:02→21:33)
[2023-04-17 06:09] LABS: Absolute Lymphocyte Count 2.02 X10^3/uL (0.83-4.51); Absolute Neutrophil Count 2.2 X10^3/uL (2.0-7.7); Basophil# 0.06 X10^3/uL; Basophil% 1.3 % (0-1); Eosinophil# 0.12 X10^3/uL; Eosinophils% 2.5 % (0-5); Hematocrit 34.2 % (37-47); Hemoglobin 10.7 g/dL (12.0-15.0); Lymphocyte # 2.02 X10^3/ul (0.83-4.51); Lymphocyte % 42.9 % (19-41); Mean Corp Hgb Conc 31.3 g/dL (32-36); Mean Corpuscular Hgb 27.2 pg (27.0-32.0); Mean Platelet Vol. 9.1 fl (6.2-12.0); Monocyte# 0.33 X10^3/uL; NRBC Flagged by Analyzer 0 % (0-5); Neutrophil # 2.17 X10^3/uL (2.7-7.7); Neutrophil % 46.1 % (47-70); Platelet Count 274 K/mm3 (150-450); RBC Distribution Width CV 16.2 % (11.6-14.6); RBC Distribution Width SD 51.6 fl (35.1-43.9); Red Blood Count 3.93 M/mm3 (4.2-5.4); White Blood Count 4.7 K/mm3 (4.4-11.0)
[2023-04-17 07:34] LABS: Anion Gap 6 (5-15); BUN 32 mg/dL (7-18); BUN/Creat Ratio 34.3 RATIO (10-20); Chloride 101 mmol/L (98-107); Creatinine, Serum 0.93 mg/dL (0.55-1.02); EST Glomerular Filtration Rate 62 mL/min (>60); Est Glom Filt Rate - Afr Amer 75 mL/min (>60); Glucose 92 mg/dL (74-106); Potassium 3.5 mmol/L (3.5-5.1); Sodium Level 140 mmol/L (136-145)
[2023-04-17] MEDS: Vitamin B Comp W-C Capsule 1 CAP PO (09:11)
[2023-04-17] MEDS: Potassium Chloride Oral Tablet 20 MEQ PO (09:12)
[2023-04-17] MEDS: Menthol/Lanolin/Calamine/Znox 113 GM Tube 1 APPLIC TOPICAL ×2 (09:12→21:35)
[2023-04-17] MEDS: Miconazole Nitrate 43 GM Bottle 1 APPLIC TOPICAL ×2 (09:12→21:35)
[2023-04-17] MEDS: Famotidine 20 MG Tablet PO ×2 (09:12→21:35)
[2023-04-17] MEDS: Calcium Carb/Vitamin D 1 TABLET Tablet PO ×2 (09:12→17:13)
[2023-04-17] MEDS: Senna/Docusate Sodium 1 Tablet PO ×2 (09:12→21:35)
[2023-04-17] MEDS: Paroxetine 20 MG Tablet 40 MG PO (09:12)
[2023-04-17] MEDS: buPROPion (SR) 150 MG Tablet.SA PO ×2 (09:12→21:33)
[2023-04-17 10:30] VITALS: BP 106/49; PULSE 83; RESP 16; TEMP 36.3; O2SAT 92
[2023-04-17 14:17] VITALS: PULSE 98; RESP 16; O2SAT 94
[2023-04-17] MEDS: MELATONIN 10 MG TABLET PO (21:34)
[2023-04-17] MEDS: Triamcinolone Acetonide 0.1% Cream 15 gm 1 APPLIC TOPICAL (21:36)
[2023-04-17 22:04] VITALS: BP 92/47; PULSE 89
--- NOTE | 2023-04-18 02:26 | NURSING ---
Left vm for MOISES Yao, to follow-up w/ pt as pt has questions about dc planning.
[2023-04-18] MEDS: Acetaminophen 500 MG Tablet 1000 MG PO ×2 (05:58→13:03)
[2023-04-18] MEDS: oxyCODONE 5 MG Tablet PO ×4 (05:58→20:19)
[2023-04-18] MEDS: Albuterol IH (6.7 GM) 1 PUFF INHALER 2 PUFF INHALATION ×4 (05:58→20:10)
[2023-04-18 10:08] VITALS: BP 108/59; PULSE 81; RESP 17; TEMP 36.7; O2SAT 94
[2023-04-18] MEDS: Calcium Carb/Vitamin D 1 TABLET Tablet PO ×2 (10:12→17:02)
[2023-04-18] MEDS: Vitamin B Comp W-C Capsule 1 CAP PO (10:12)
[2023-04-18] MEDS: Potassium Chloride Oral Tablet 20 MEQ PO (10:13)
[2023-04-18] MEDS: Miconazole Nitrate 43 GM Bottle 1 APPLIC TOPICAL ×2 (10:13→20:10)
[2023-04-18] MEDS: Menthol/Lanolin/Calamine/Znox 113 GM Tube 1 APPLIC TOPICAL ×2 (10:13→20:10)
[2023-04-18] MEDS: Triamcinolone Acetonide 0.1% Cream 15 gm 1 APPLIC TOPICAL ×2 (10:14→20:08)
[2023-04-18] MEDS: buPROPion (SR) 150 MG Tablet.SA PO ×2 (10:14→20:08)
[2023-04-18] MEDS: Paroxetine 20 MG Tablet 40 MG PO (10:14)
[2023-04-18] MEDS: Famotidine 20 MG Tablet PO ×2 (10:14→20:08)
[2023-04-18] MEDS: Ergocalciferol 1.25 MG (50, 000 UNIT) Capsule PO (10:14)
[2023-04-18] MEDS: Senna/Docusate Sodium 1 Tablet PO ×2 (10:14→20:08)
[2023-04-18] MEDS: cycloBENZAPRine HCl 10 MG Tablet PO ×2 (13:03→20:19)
[2023-04-18] MEDS: Hydrocortisone 2.5% Crm 1 APPLIC TOPICAL ×2 (13:03→17:02)
[2023-04-18] MEDS: Cephalexin 500 MG Capsule PO ×2 (17:56→20:08)
--- NOTE | 2023-04-18 19:51 | PN.TCU_ITS ---
Subjective Subjective Resident seen, examined for regulatory visit. Right upper extremity splint has been removed. Nursing staff concerned with erythema, warmth, purpura of proximal right upper extremity, will treat as cellulitis. Objective Data Objective Data Vital Signs: Vital Signs Temp Pulse Resp BP Pulse Ox O2 Del Method 98.1 F 81 17 108/59 L 94 Room Air 04/18/23 10:08 04/18/23 10:08 04/18/23 10:08 04/18/23 10:08 04/18/23 10:08 04/18/23 10:08 Oxygen Delivery Method Room Air Weight: 79.379 kg Body Mass Index (BMI) 35.2 Intake & Output: Intake and Output for Last 24 Hours 04/16/23 04/17/23 04/18/23 23:59 23:59 23:59 Intake Total 1080 / 1080 840 / 840 840 / 840 Output Total 1000 / 1000 600 / 600 900 / 900 Balance 80 / 80 240 / 240 -60 / -60 Lab / Micro Data 04/17/23 05:57 04/17/23 05:57 Micro: Microbiology 04/17/23 06:08 Nasal Secretion SARS-CoV-2 Antigen (Rapid) - Final 04/14/23 05:27 Nasal Secretion SARS-CoV-2 Antigen (Rapid) - Final 04/11/23 08:10 Nasal Secretion SARS-CoV-2 Antigen (Rapid) - Final 04/08/23 05:45 Nasal Secretion SARS-CoV-2 Antigen (Rapid) - Final 04/05/23 05:00 Nasal Secretion SARS-CoV-2 Antigen (Rapid) - Final 04/02/23 05:10 Nasal Secretion SARS-CoV-2 Antigen (Rapid) - Final 03/31/23 18:00 Nasal Secretion SARS-CoV-2 Antigen (Rapid) - Final 03/30/23 05:05 Nasal Secretion SARS-CoV-2 Antigen (Rapid) - Final 03/28/23 05:35 Nasal Secretion SARS-CoV-2 Antigen (Rapid) - Final 03/26/23 15:40 Nasal Secretion SARS-CoV-2 Antigen (Rapid) - Final Physical Exam Const alert General Appearance: cooperative HEENT normocephalic Eyes PERRL and EOMs intact bilaterally Neck supple, no JVD and no carotid bruits Resp normal respiratory effort, normal air movement and clear to auscultation bilaterally Cardio regular rate and regular rhythm GI normal to inspection, nondistended, normoactive bowel sounds, non-tender and non-distended Extremity normal capillary refill Extremity Narrative: Proximal right upper extremity with erythema, warmth, tenderness, purpura. General Extremity: Negative for edema Skin no rashes or lesions noted General Skin Exam: no breakdown Psych affect normal Appearance: appropriate Assessment & Plan Assessment/Plan (1) Debility: (2) Closed fracture of right distal humerus: (3) Hypotension: (4) Depression: (5) Heart failure with reduced ejection fraction: (6) Neuropathic pain: (7) Iron deficiency anemia: (8) GERD (gastroesophageal reflux disease): (9) Muscle spasm: (10) Vitamin D deficiency: (11) COPD (chronic obstructive pulmonary disease): (12) Hypothyroidism: (13) Osteoporosis: (14) Obstructive sleep apnea: PLAN: Plan 72 year old female with below past medical history hospitalized for right distal humerus fracture, underwent right elbow arthroplasty, complicated by multiple right rib fractures, hypotension, admitted to TCU with debility, here for rehabilitation, strengthening, prior to discharge home with family. * Debility - PT/OT. * Pain - Tylenol 1000mg q6h prn pain (1-5), Oxycodone 5mg q4h prn pain (6-10). * Bowel - Miralax 17gm daily, senna/colace 1 tablet bid, Magnesium citrate 300ml daily prn. * Adult immunization - Administer pneumonia vaccine, covid19 vaccine, flu vaccine as appropriate. * DVT prophylaxis - Hold, anemia. * COPD - Albuterol 2 puffs 4x/day. * Right upper extremity cellulitis - Cephalexin 500mg q8 thru 04/25/2023. * Depression - Bupropion SR 150mg bid, Paroxetine 40mg daily, stable chronic nursing home use, GDR not recommended. * Calcium deficiency - Calcium D 1 tablet bidcm. * Heart failure reduced ejection fraction - Furosemide 40mg qhs. * Vitamin D deficiency - D2 50,000 units qweek. * GERD - Famotidine 20mg bid. * Anxiety - Lorazepam 0.5mg q8h prn, stable chronic term used, GDR not recommended. * Skin irritation - Calmoseptine topical bid, Triamcinolone cream topical bid, HC 2.5% topidal bid prn. * Tinea Corporis - Miconazole topical bid. * Nausea - Zofran odt 4mg q8h prn. * Hypokalemia- KCL 20meq daily. * Leg cramps - Vitamin B complex daily. * Muscle spasm - Flexeril 10mg tid prn. * Insomnia - Melatonin 10mg qhs. * Tinea Corporis - Miconazole topical bid. Capacity Capacity Assessment Tool Can the patient make a choice & communicate that choice?: Yes Can the patient understand benefits, risks and alternatives?: Yes Can the patient make a logical, rational choice?: Yes Is the choice the patient makes consistent w/ their values?: Yes Is there an impending, emergent risk to the patient?: No Does the patient have an Advance Directive?: No Is there a Surrogate Available?: Yes i.e. HCPOA: Yes i.e. close relative (spouse, child, parent, sibling)?: Yes
[2023-04-18] MEDS: MELATONIN 10 MG TABLET PO (20:08)
[2023-04-18 20:12] VITALS: BP 95/53; PULSE 105
[2023-04-19 00:13] VITALS: PULSE 105
[2023-04-19] MEDS: Hydrocortisone 2.5% Crm 1 APPLIC TOPICAL ×2 (01:57→08:27)
[2023-04-19 02:02] VITALS: BP 104/52
[2023-04-19] MEDS: oxyCODONE 5 MG Tablet PO (02:03)
[2023-04-19] MEDS: cycloBENZAPRine HCl 10 MG Tablet PO (02:03)
[2023-04-19] MEDS: Potassium Chloride Oral Tablet 20 MEQ PO (08:26)
[2023-04-19] MEDS: Vitamin B Comp W-C Capsule 1 CAP PO (08:26)
[2023-04-19] MEDS: Cephalexin 500 MG Capsule PO ×3 (08:26→21:44)
[2023-04-19] MEDS: Albuterol IH (6.7 GM) 1 PUFF INHALER 2 PUFF INHALATION ×4 (08:26→21:42)
[2023-04-19] MEDS: Calcium Carb/Vitamin D 1 TABLET Tablet PO ×2 (08:26→17:31)
[2023-04-19] MEDS: Famotidine 20 MG Tablet PO ×2 (08:26→21:44)
[2023-04-19] MEDS: Senna/Docusate Sodium 1 Tablet PO ×2 (08:26→21:44)
[2023-04-19] MEDS: Triamcinolone Acetonide 0.1% Cream 15 gm 1 APPLIC TOPICAL ×2 (08:27→21:57)
[2023-04-19] MEDS: Menthol/Lanolin/Calamine/Znox 113 GM Tube 1 APPLIC TOPICAL ×2 (08:27→21:44)
[2023-04-19] MEDS: buPROPion (SR) 150 MG Tablet.SA PO ×2 (08:27→21:44)
[2023-04-19] MEDS: Miconazole Nitrate 43 GM Bottle 1 APPLIC TOPICAL ×2 (08:27→21:44)
[2023-04-19] MEDS: Paroxetine 20 MG Tablet 40 MG PO (08:27)
[2023-04-19] MEDS: hydrOXYzine PAM 25 MG Capsule 50 MG PO ×2 (10:38→21:54)
[2023-04-19 14:10] VITALS: BMI 34.8
[2023-04-19 15:49] VITALS: BP 106/55; PULSE 65; RESP 16; TEMP 35.9; O2SAT 96
[2023-04-19 21:40] VITALS: BP 111/57; PULSE 90
[2023-04-19] MEDS: MELATONIN 10 MG TABLET PO (21:44)
[2023-04-19] MEDS: Furosemide 40 MG Tablet PO (21:44)
[2023-04-20] MEDS: Albuterol IH (6.7 GM) 1 PUFF INHALER 2 PUFF INHALATION ×4 (06:23→21:06)
[2023-04-20] MEDS: oxyCODONE 5 MG Tablet PO (06:23)
[2023-04-20] MEDS: Cephalexin 500 MG Capsule PO ×3 (06:23→21:08)
[2023-04-20] MEDS: buPROPion (SR) 150 MG Tablet.SA PO ×2 (09:04→21:09)
[2023-04-20] MEDS: Famotidine 20 MG Tablet PO ×2 (09:04→21:08)
[2023-04-20] MEDS: Paroxetine 20 MG Tablet 40 MG PO (09:04)
[2023-04-20] MEDS: Vitamin B Comp W-C Capsule 1 CAP PO (09:05)
[2023-04-20] MEDS: Potassium Chloride Oral Tablet 20 MEQ PO (09:05)
[2023-04-20] MEDS: Miconazole Nitrate 43 GM Bottle 1 APPLIC TOPICAL ×2 (09:05→21:06)
[2023-04-20] MEDS: Menthol/Lanolin/Calamine/Znox 113 GM Tube 1 APPLIC TOPICAL ×2 (09:05→21:06)
[2023-04-20] MEDS: Calcium Carb/Vitamin D 1 TABLET Tablet PO ×2 (09:05→17:12)
[2023-04-20] MEDS: Triamcinolone Acetonide 0.1% Cream 15 gm 1 APPLIC TOPICAL (09:06)
[2023-04-20] MEDS: Senna/Docusate Sodium 1 Tablet PO (09:06)
[2023-04-20] MEDS: hydrOXYzine PAM 25 MG Capsule 50 MG PO ×2 (11:22→21:10)
[2023-04-20 14:57] VITALS: BP 101/50; PULSE 88; RESP 16; TEMP 36.5; O2SAT 97
[2023-04-20] MEDS: Hydrocortisone 2.5% Crm 1 APPLIC TOPICAL (21:07)
[2023-04-20] MEDS: Furosemide 40 MG Tablet PO (21:08)
[2023-04-20] MEDS: MELATONIN 10 MG TABLET PO (21:08)
[2023-04-20 21:23] VITALS: PULSE 94; RESP 14; O2SAT 94
[2023-04-21] MEDS: Cephalexin 500 MG Capsule PO ×3 (05:36→21:17)
[2023-04-21] MEDS: Albuterol IH (6.7 GM) 1 PUFF INHALER 2 PUFF INHALATION ×4 (05:36→21:16)
[2023-04-21 05:41] VITALS: PULSE 82; RESP 16; O2SAT 97
[2023-04-21 10:01] VITALS: BP 103/59; PULSE 98; RESP 17; TEMP 36.8; O2SAT 92
[2023-04-21] MEDS: Vitamin B Comp W-C Capsule 1 CAP PO (10:03)
[2023-04-21] MEDS: Potassium Chloride Oral Tablet 20 MEQ PO (10:03)
[2023-04-21] MEDS: Calcium Carb/Vitamin D 1 TABLET Tablet PO ×2 (10:03→16:15)
[2023-04-21] MEDS: Paroxetine 20 MG Tablet 40 MG PO (10:03)
[2023-04-21] MEDS: Famotidine 20 MG Tablet PO ×2 (10:04→21:17)
[2023-04-21] MEDS: buPROPion (SR) 150 MG Tablet.SA PO ×2 (10:04→21:17)
[2023-04-21] MEDS: Hydrocortisone 2.5% Crm 1 APPLIC TOPICAL (10:05)
[2023-04-21] MEDS: Menthol/Lanolin/Calamine/Znox 113 GM Tube 1 APPLIC TOPICAL ×2 (10:05→21:16)
[2023-04-21] MEDS: Miconazole Nitrate 43 GM Bottle 1 APPLIC TOPICAL ×2 (10:05→21:16)
[2023-04-21] MEDS: hydrOXYzine PAM 25 MG Capsule 50 MG PO ×2 (13:24→21:23)
[2023-04-21] MEDS: cycloBENZAPRine HCl 10 MG Tablet PO (16:21)
--- NOTE | 2023-04-21 17:23 | NURSING ---
Updated Dr. Espinal, reported by therapy patient became diaphoretic when standing and therapy was unable to obtain BP while patient was standing. Patient's BP has generally been low. Questioned if BP is related to patient's frequent falls at home. New order for patient to start Midodrine.
[2023-04-21] MEDS: Midodrine HCl 5 MG Tablet 10 MG PO (18:18)
[2023-04-21] MEDS: Furosemide 40 MG Tablet PO (21:17)
[2023-04-21] MEDS: MELATONIN 10 MG TABLET PO (21:17)
[2023-04-22] MEDS: Cephalexin 500 MG Capsule PO ×3 (05:58→21:12)
[2023-04-22] MEDS: Albuterol IH (6.7 GM) 1 PUFF INHALER 2 PUFF INHALATION ×4 (05:58→21:14)
[2023-04-22] MEDS: hydrOXYzine PAM 25 MG Capsule 50 MG PO (06:02)
--- NOTE | 2023-04-22 07:37 | NURSING ---
Addendum entered by Milagro Simmons 04/22/23 08:28: dr espinal updated on all concerns of pt low BPs, diaphoresis with therapy, tachy heart rate at times, staring off into space frequently all side effects of vistaril. new order to DC. Original Note: yell heard from outside patient room, patient immediately assessed, observed resting in bed, eyes open, does not appear to notice this nurse until verbal stimuli, observed staring at wall. Resps even and unlabored. When patient asked if ok due to hearing yell from outside patient room, patient states Oh I'm fine, I was just staring off into space, I do that sometimes. Patient verbalizes PRN Vistaril makes me feel sleepy. Written communication left for Dr. Espinal regarding patient observed staring into space and Vistaril making sleepy. No distress observed or reported. Call light in reach.
[2023-04-22] MEDS: Midodrine HCl 5 MG Tablet 10 MG PO ×3 (09:22→16:43)
[2023-04-22] MEDS: Calcium Carb/Vitamin D 1 TABLET Tablet PO ×2 (09:22→16:43)
[2023-04-22] MEDS: Senna/Docusate Sodium 1 Tablet PO ×2 (09:23→21:13)
[2023-04-22] MEDS: Potassium Chloride Oral Tablet 20 MEQ PO (09:23)
[2023-04-22] MEDS: Menthol/Lanolin/Calamine/Znox 113 GM Tube 1 APPLIC TOPICAL ×2 (09:23→21:11)
[2023-04-22] MEDS: Vitamin B Comp W-C Capsule 1 CAP PO (09:23)
[2023-04-22] MEDS: buPROPion (SR) 150 MG Tablet.SA PO ×2 (09:23→21:13)
[2023-04-22] MEDS: Famotidine 20 MG Tablet PO ×2 (09:23→21:12)
[2023-04-22] MEDS: Miconazole Nitrate 43 GM Bottle 1 APPLIC TOPICAL ×2 (09:23→21:11)
[2023-04-22] MEDS: Paroxetine 20 MG Tablet 40 MG PO (09:24)
[2023-04-22 09:29] VITALS: BP 95/41; PULSE 81; RESP 16; TEMP 36.1; O2SAT 93
--- NOTE | 2023-04-22 11:47 | NURSING ---
Dressings changed to RT FA x2 skin tears d/t c/o itching. cleansed with NS, applied aloe vera lotion to dry intact skin only. Will update dr coles that pt c/o itching to RT arm. applied softer dressings to prevent itchy skin. pt stated that it was helpful.
[2023-04-22] MEDS: Hydrocortisone 2.5% Crm 1 APPLIC TOPICAL ×2 (11:53→16:42)
[2023-04-22] MEDS: DiphenhydrAMINE 25 MG Capsule PO (13:50)
[2023-04-22 13:53] VITALS: BP 96/47; PULSE 82
[2023-04-22] MEDS: MELATONIN 10 MG TABLET PO (21:13)
[2023-04-22] MEDS: Furosemide 40 MG Tablet PO (21:13)
[2023-04-22] MEDS: Acetaminophen 500 MG Tablet 1000 MG PO (21:17)
[2023-04-22 22:00] VITALS: PULSE 74; RESP 14; O2SAT 98
[2023-04-23] MEDS: DiphenhydrAMINE 25 MG Capsule PO (03:45)
[2023-04-23] MEDS: Hydrocortisone 2.5% Crm 1 APPLIC TOPICAL (04:15)
[2023-04-23] MEDS: Albuterol IH (6.7 GM) 1 PUFF INHALER 2 PUFF INHALATION ×4 (05:27→22:02)
[2023-04-23] MEDS: Cephalexin 500 MG Capsule PO ×3 (05:27→22:03)
[2023-04-23] MEDS: Calcium Carb/Vitamin D 1 TABLET Tablet PO ×2 (09:02→17:21)
[2023-04-23] MEDS: Midodrine HCl 5 MG Tablet 10 MG PO (09:02)
[2023-04-23] MEDS: Vitamin B Comp W-C Capsule 1 CAP PO (09:04)
[2023-04-23] MEDS: Potassium Chloride Oral Tablet 20 MEQ PO (09:04)
[2023-04-23] MEDS: Famotidine 20 MG Tablet PO ×2 (09:04→22:05)
[2023-04-23] MEDS: buPROPion (SR) 150 MG Tablet.SA PO ×2 (09:04→22:05)
[2023-04-23] MEDS: Paroxetine 20 MG Tablet 40 MG PO (09:05)
[2023-04-23] MEDS: Miconazole Nitrate 43 GM Bottle 1 APPLIC TOPICAL ×2 (09:05→22:03)
[2023-04-23] MEDS: Menthol/Lanolin/Calamine/Znox 113 GM Tube 1 APPLIC TOPICAL ×2 (09:05→22:02)
[2023-04-23] MEDS: Senna/Docusate Sodium 1 Tablet PO ×2 (09:05→22:05)
[2023-04-23] MEDS: Acetaminophen 500 MG Tablet 1000 MG PO (10:15)
[2023-04-23 15:13] VITALS: BP 100/48; PULSE 81; RESP 18; TEMP 37.1; O2SAT 93
--- NOTE | 2023-04-23 17:45 | NURSING ---
Pt and family updated on positive covid pt.
[2023-04-23 21:45] VITALS: PULSE 76; RESP 14; O2SAT 96
[2023-04-23] MEDS: Furosemide 40 MG Tablet PO (22:03)
[2023-04-23] MEDS: MELATONIN 10 MG TABLET PO (22:04)
[2023-04-24] MEDS: Cephalexin 500 MG Capsule PO ×3 (05:24→22:01)
[2023-04-24] MEDS: Albuterol IH (6.7 GM) 1 PUFF INHALER 2 PUFF INHALATION ×4 (05:25→21:58)
[2023-04-24] MEDS: DiphenhydrAMINE 25 MG Capsule PO ×2 (05:27→22:07)
[2023-04-24 05:40] VITALS: PULSE 72; RESP 16; O2SAT 95
[2023-04-24 06:33] LABS: Absolute Lymphocyte Count 2.14 X10^3/uL (0.83-4.51); Absolute Neutrophil Count 2.1 X10^3/uL (2.0-7.7); Basophil# 0.03 X10^3/uL; Basophil% 0.6 % (0-1); Eosinophil# 0.09 X10^3/uL; Eosinophils% 1.9 % (0-5); Hematocrit 34.9 % (37-47); Hemoglobin 11.3 g/dL (12.0-15.0); Lymphocyte # 2.14 X10^3/ul (0.83-4.51); Lymphocyte % 45.5 % (19-41); Mean Corp Hgb Conc 32.4 g/dL (32-36); Mean Corpuscular Hgb 28.3 pg (27.0-32.0); Mean Corpuscular Volume 87.3 fL (81-99); Monocyte# 0.31 X10^3/uL; Monocyte% 6.6 % (0-10); NRBC Flagged by Analyzer 0 % (0-5); Neutrophil # 2.12 X10^3/uL (2.7-7.7); Neutrophil % 45.2 % (47-70); Platelet Count 232 K/mm3 (150-450); RBC Distribution Width CV 16.2 % (11.6-14.6); RBC Distribution Width SD 51.7 fl (35.1-43.9); White Blood Count 4.7 K/mm3 (4.4-11.0)
[2023-04-24 07:13] LABS: Anion Gap 5 (5-15); BUN 26 mg/dL (7-18); BUN/Creat Ratio 29.4 RATIO (10-20); Calcium,Total 9.2 mg/dL (8.5-10.1); Chloride 106 mmol/L (98-107); Creatinine, Serum 0.88 mg/dL (0.55-1.02); EST Glomerular Filtration Rate 66 mL/min (>60); Est Glom Filt Rate - Afr Amer 80 mL/min (>60); Estimated Creatinine Clearance 68.23 ml/min; Glucose 99 mg/dL (74-106); Potassium 4.3 mmol/L (3.5-5.1); Sodium Level 141 mmol/L (136-145)
[2023-04-24] MEDS: buPROPion (SR) 150 MG Tablet.SA PO ×2 (09:38→22:03)
[2023-04-24] MEDS: Paroxetine 20 MG Tablet 40 MG PO (09:38)
[2023-04-24] MEDS: Famotidine 20 MG Tablet PO ×2 (09:38→22:03)
[2023-04-24] MEDS: Senna/Docusate Sodium 1 Tablet PO ×2 (09:39→22:03)
[2023-04-24] MEDS: Vitamin B Comp W-C Capsule 1 CAP PO (09:39)
[2023-04-24] MEDS: Midodrine HCl 5 MG Tablet 10 MG PO ×3 (09:39→18:23)
[2023-04-24] MEDS: Potassium Chloride Oral Tablet 20 MEQ PO (09:39)
[2023-04-24] MEDS: Calcium Carb/Vitamin D 1 TABLET Tablet PO ×2 (09:39→18:23)
[2023-04-24] MEDS: Menthol/Lanolin/Calamine/Znox 113 GM Tube 1 APPLIC TOPICAL ×2 (09:40→21:59)
[2023-04-24] MEDS: Miconazole Nitrate 43 GM Bottle 1 APPLIC TOPICAL ×2 (09:40→21:59)
[2023-04-24 09:44] VITALS: BP 101/53; PULSE 84
[2023-04-24 12:43] VITALS: BP 112/76; PULSE 110
[2023-04-24 15:50] VITALS: BP 108/52; PULSE 88; RESP 16; TEMP 37.1; O2SAT 94
[2023-04-24] MEDS: Furosemide 40 MG Tablet PO (22:01)
[2023-04-24] MEDS: MELATONIN 10 MG TABLET PO (22:02)
[2023-04-24] MEDS: LORazepam 0.5 MG Tablet PO (22:08)
[2023-04-25] MEDS: Albuterol IH (6.7 GM) 1 PUFF INHALER 2 PUFF INHALATION ×4 (05:46→20:26)
[2023-04-25] MEDS: Cephalexin 500 MG Capsule PO ×2 (05:46→13:33)
[2023-04-25 06:15] VITALS: PULSE 74; RESP 14; O2SAT 96
[2023-04-25 09:50] VITALS: BP 102/48; PULSE 82; RESP 16; TEMP 36.4; O2SAT 92
[2023-04-25] MEDS: Senna/Docusate Sodium 1 Tablet PO ×2 (09:53→20:25)
[2023-04-25] MEDS: Ergocalciferol 1.25 MG (50, 000 UNIT) Capsule PO (09:53)
[2023-04-25] MEDS: Calcium Carb/Vitamin D 1 TABLET Tablet PO ×2 (09:54→17:12)
[2023-04-25] MEDS: Menthol/Lanolin/Calamine/Znox 113 GM Tube 1 APPLIC TOPICAL ×2 (09:54→20:28)
[2023-04-25] MEDS: Potassium Chloride Oral Tablet 20 MEQ PO (09:54)
[2023-04-25] MEDS: Midodrine HCl 5 MG Tablet 10 MG PO (09:54)
[2023-04-25] MEDS: Famotidine 20 MG Tablet PO ×2 (09:54→20:25)
[2023-04-25] MEDS: Paroxetine 20 MG Tablet 40 MG PO (09:54)
[2023-04-25] MEDS: Vitamin B Comp W-C Capsule 1 CAP PO (09:54)
[2023-04-25] MEDS: buPROPion (SR) 150 MG Tablet.SA PO ×2 (09:54→20:25)
[2023-04-25] MEDS: Miconazole Nitrate 43 GM Bottle 1 APPLIC TOPICAL ×2 (09:55→20:28)
[2023-04-25 17:14] VITALS: BP 110/48; PULSE 79
[2023-04-25] MEDS: Furosemide 40 MG Tablet PO (20:24)
[2023-04-25] MEDS: LORazepam 0.5 MG Tablet PO (20:24)
[2023-04-25] MEDS: MELATONIN 10 MG TABLET PO (20:25)
[2023-04-26] MEDS: Albuterol IH (6.7 GM) 1 PUFF INHALER 2 PUFF INHALATION ×4 (05:17→22:12)
[2023-04-26] MEDS: Vitamin B Comp W-C Capsule 1 CAP PO (08:08)
[2023-04-26] MEDS: Famotidine 20 MG Tablet PO ×2 (08:08→22:13)
[2023-04-26] MEDS: Potassium Chloride Oral Tablet 20 MEQ PO (08:08)
[2023-04-26] MEDS: Calcium Carb/Vitamin D 1 TABLET Tablet PO ×2 (08:08→17:41)
[2023-04-26] MEDS: buPROPion (SR) 150 MG Tablet.SA PO ×2 (08:08→22:13)
[2023-04-26] MEDS: Senna/Docusate Sodium 1 Tablet PO ×2 (08:08→22:13)
[2023-04-26] MEDS: Paroxetine 20 MG Tablet 40 MG PO (08:08)
[2023-04-26] MEDS: Miconazole Nitrate 43 GM Bottle 1 APPLIC TOPICAL ×2 (08:09→22:17)
[2023-04-26] MEDS: Menthol/Lanolin/Calamine/Znox 113 GM Tube 1 APPLIC TOPICAL ×2 (08:09→22:17)
[2023-04-26 10:17] VITALS: BMI 33.4
[2023-04-26] MEDS: Acetaminophen 500 MG Tablet 1000 MG PO (13:04)
[2023-04-26 14:34] VITALS: BP 110/56; PULSE 95; RESP 16; TEMP 36.6; O2SAT 95
--- NOTE | 2023-04-26 15:20 | CASEMGMT ---
Social Work Pt requesting to speak with this worker about DC. SW met with pt and discussed DC plans. Acknowledged pt's wishes to be home and be with grandson, however, encouraged pt to focus on pt's needs and when is the safest time for pt to DC home. Pt thought about it and agreed she does not want to go home too soon, like she felt she did the last admission. SW commended pt for that recognition. Discussed upcoming appts to coordinate DC. Pt has [facility] appt on 05/09 and offered for pt to DC home after that appt. Pt agreed as that is about two weeks away. SW encouraged skilled HHC as nephew also strongly encourages HHC. Pt reluctantly agreed to all services through [facility]. Confirmed no DME needs and nephew can transport. SW followed up with pt on bereavement counseling from [facility]. Pt stated she has not spoken to anyone yet. SW agreed to follow up and apologized for delay. Pt phoned nephew at the end of this worker's visit to update on plans. Nephew agreeable and appreciative. SW phoned referral to [facility] for PT/OT/SN/SW. SW sent follow up email to Krys at [facility]. Plan: DC home with family 05/09, [facility] PT/OT/SN/BUT[facility] [place]
--- NOTE | 2023-04-26 16:27 | NURSING ---
Updated on covid positive patient, she doesn't want family notified.
--- NOTE | 2023-04-26 19:55 | DS.PCM_ITS ---
Providers Date of Admission: 03/26/23 Primary Care Physician: Dr. Kei Pineda, DO Reason For Visit: RT HUMERAL FRACTURE Diagnosis Discharge Diagnosis (1) Debility: Status: Acute Code(s): R53.81 - Other malaise (2) Closed fracture of right distal humerus: Status: Acute Code(s): S42.401A - Unspecified fracture of lower end of right humerus, initial encounter for closed fracture (3) Hypotension: Status: Inactive Code(s): I95.9 - Hypotension, unspecified (4) Depression: Status: Acute Code(s): F32.A - Depression, unspecified (5) Heart failure with reduced ejection fraction: Status: Acute Code(s): I50.20 - Unspecified systolic (congestive) heart failure (6) Neuropathic pain: Status: Acute Code(s): M79.2 - Neuralgia and neuritis, unspecified (7) Iron deficiency anemia: Status: Acute Code(s): D50.9 - Iron deficiency anemia, unspecified (8) GERD (gastroesophageal reflux disease): Status: Acute Code(s): K21.9 - Gastro-esophageal reflux disease without esophagitis (9) Muscle spasm: Status: Acute Code(s): M62.838 - Other muscle spasm (10) Vitamin D deficiency: Status: Acute Code(s): E55.9 - Vitamin D deficiency, unspecified (11) COPD (chronic obstructive pulmonary disease): Status: Chronic Code(s): J44.9 - Chronic obstructive pulmonary disease, unspecified (12) Hypothyroidism: Status: Acute Code(s): E03.9 - Hypothyroidism, unspecified (13) Osteoporosis: Status: Chronic Code(s): M81.0 - Age-related osteoporosis without current pathological fracture (14) Obstructive sleep apnea: Status: Acute Code(s): G47.33 - Obstructive sleep apnea (adult) (pediatric) Plan 72 year old female with below past medical history hospitalized for right distal humerus fracture, underwent right elbow arthroplasty, complicated by multiple right rib fractures, hypotension, admitted to TCU with debility, here for rehabilitation, strengthening, prior to discharge home with family. * Debility - PT/OT. * Pain - Tylenol 1000mg q6h prn pain (1-5), Oxycodone 5mg q4h prn pain (6-10). * Bowel - Miralax 17gm daily, senna/colace 1 tablet bid, Magnesium citrate 300ml daily prn. * Adult immunization - Administer pneumonia vaccine, covid19 vaccine, flu vaccine as appropriate. * DVT prophylaxis - Hold, anemia. * COPD - Albuterol 2 puffs 4x/day. * Right upper extremity cellulitis - Cephalexin 500mg q8 thru 04/25/2023. * Depression - Bupropion SR 150mg bid, Paroxetine 40mg daily, stable chronic roasterman use, GDR not recommended. * Calcium deficiency - Calcium D 1 tablet bidcm. * Heart failure reduced ejection fraction - Furosemide 40mg qhs. * Vitamin D deficiency - D2 50,000 units qweek. * GERD - Famotidine 20mg bid. * Anxiety - Lorazepam 0.5mg q8h prn, stable chronic term used, GDR not recommended. * Skin irritation - Calmoseptine topical bid, Triamcinolone cream topical bid, HC 2.5% topidal bid prn. * Tinea Corporis - Miconazole topical bid. * Nausea - Zofran odt 4mg q8h prn. * Hypokalemia- KCL 20meq daily. * Leg cramps - Vitamin B complex daily. * Muscle spasm - Flexeril 10mg tid prn. * Insomnia - Melatonin 10mg qhs. * Tinea Corporis - Miconazole topical bid. Medications at Discharge Home Medications calcium carbonate 500 mg-vitamin D3 5 mcg (200 unit) tablet 1 tab PO BIDCM supplement 05/09/20 paroxetine HCl 30 mg tablet 40 mg PO DAILY depression 05/09/20 bupropion HCl 150 mg tablet,12 hr sustained-release 150 mg PO BID mood 11/02/22 albuterol 90 mcg/actuation aerosol inhaler 90 mcg inhalation .four times day lungs 03/26/23 ergocalciferol (vitamin D2) 1,250 mcg (50,000 unit) capsule 50,000 unit PO .every tuesday bones 03/26/23 famotidine 20 mg tablet (Acid Controller) 20 mg PO BID acid reflux 03/26/23 furosemide 40 mg tablet 40 mg PO DAILY water pill 03/26/23 triamcinolone acetonide 0.1 % topical cream 1 applic topical BID fungal 03/26/23 vitamin B complex 1 tab PO DAILY supp 03/26/23 acetaminophen 500 mg tablet 1,000 mg (2 x 500 mg) PO Q6H PRN PRN Pain Score 1-5 #0 tabs 04/26/23 potassium chloride 20 mEq tablet,extended release(part/cryst) (Klor-Con M) 20 meq PO DAILY 30 days #30 tabs 04/26/23 Hospital Course Operations - (Right elbow arthroplasty.) Procedures None Summary of Care Provided Minutes Spent on Discharge: 35 Hospital Course: 72 year old female with below past medical history hospitalized for right distal humerus fracture, underwent right elbow arthroplasty, complicated by multiple right rib fractures, hypotension, admitted to TCU with debility, here for rehabilitation, strengthening, prior to discharge home with family. Discharge home with family 05/09/2023, [facility] PT/OT/SN/SW. Physical Exam Const alert General Appearance: cooperative HEENT normocephalic Eyes PERRL and EOMs intact bilaterally Neck supple, no JVD and no carotid bruits Resp normal respiratory effort, normal air movement and clear to auscultation bilater ally Cardio regular rate and regular rhythm GI normal to inspection, nondistended, normoactive bowel sounds, non-tender and non-distended Extremity normal capillary refill General Extremity: Negative for edema Skin no rashes or lesions noted General Skin Exam: no breakdown Psych affect normal Appearance: appropriate Weight / BMI Weight Weight: 75.115 kg Body Mass Index (BMI) 33.4 ABG / Lab / Microbiology Data 04/24/23 06:24 04/24/23 06:24 Microbiology: Microbiology 04/26/23 05:20 Nasal Secretion SARS-CoV-2 Antigen (Rapid) - Final 04/23/23 05:45 Nasal Secretion SARS-CoV-2 Antigen (Rapid) - Final 04/20/23 06:19 Nasal Secretion SARS-CoV-2 Antigen (Rapid) - Final 04/17/23 06:08 Nasal Secretion SARS-CoV-2 Antigen (Rapid) - Final 04/14/23 05:27 Nasal Secretion SARS-CoV-2 Antigen (Rapid) - Final 04/11/23 08:10 Nasal Secretion SARS-CoV-2 Antigen (Rapid) - Final 04/08/23 05:45 Nasal Secretion SARS-CoV-2 Antigen (Rapid) - Final 04/05/23 05:00 Nasal Secretion SARS-CoV-2 Antigen (Rapid) - Final 04/02/23 05:10 Nasal Secretion SARS-CoV-2 Antigen (Rapid) - Final 03/31/23 18:00 Nasal Secretion SARS-CoV-2 Antigen (Rapid) - Final 03/30/23 05:05 Nasal Secretion SARS-CoV-2 Antigen (Rapid) - Final 03/28/23 05:35 Nasal Secretion SARS-CoV-2 Antigen (Rapid) - Final 03/26/23 15:40 Nasal Secretion SARS-CoV-2 Antigen (Rapid) - Final D/C Instructions Discharge Diet: No restrictions Discharge Activity: Return to Normal Activity, May Shower and Use Walker Weight Bearing Status: Weight bearing as tolerated Call your doctor if you observe: Fever of 101 or Higher, Inability to urinate, Inability to have a bowel movement, Shortness of breath, Dizziness, Fainting spells, Swelling in the ankles, Chest pain and Uncontrolled pain Additional Instructions: Discharge home with family 05/09/2023, [facility] PT/OT/SN/SW. Please Follow Up With: BOLA SYED When: As scheduled. Meaningful Use Info Meaningful Use Diagnoses (Choose all that apply): None applicable Discharge Plan Admission Admit Date/Time: 03/26/23 13:29 Primary Reason for Your Visit: Debility. Attending Provider: Kishan Espinal Chi Primary Care Provider: Kei Pineda Instructions Additional Instructions / Restrictions: Discharge home with family 05/09/2023, [facility] PT/OT/SN/SW. Discharge Orders/Prescriptions Prescriptions: New acetaminophen 500 mg Tablet 1,000 mg PO Q6H PRN PRN (Reason: Pain Score 1-5) Qty: 0 0RF potassium chloride [Klor-Con M20] 20 mEq Tablet,Er Particles/Crystals 20 meq PO DAILY 30 Days Qty: 30 0RF Continued paroxetine HCl 30 MG tablet 40 mg PO DAILY calcium carbonate-vitamin D3 1 TABLET tablet 1 tab PO BIDCM bupropion HCl 150 mg tablet sustained-release 12 hr 150 mg PO BID albuterol 90 mcg/actuation aerosol 90 mcg inhalation .four times day Rx Instructions: 2 puffs ergocalciferol (vitamin D2) 1,250 mcg (50,000 unit) capsule 50,000 unit PO .every tuesday Patient Comments: Take 1 capsule by mouth one time a week. furosemide 40 mg tablet 40 mg PO DAILY vitamin B complex Tablet 1 tab PO DAILY famotidine [Acid Controller] 20 mg tablet 20 mg PO BID Discontinued gabapentin 300 mg capsule 300 mg PO TID PRN (Reason: Pain) Hold Instructions: Order Completed acetaminophen 500 MG tablet 1,000 mg PO Q8 PRN (Reason: Pain) polysaccharide iron complex [Ferrex 150] 150 mg iron capsule 150 mg PO DAILYCM carvedilol 3.125 mg tablet 12.5 mg PO BIDCM menthol-zinc oxide [Calmoseptine] 0.44-20.6 % ointment 1 applic topical BID Protocol: *Topical Application Instructions APPLICATION INSTRUCTIONS: affected areas tizanidine 2 mg Tablet 2 mg PO TID 30 Days Qty: 90 0RF Hold Instructions: per previous hospital order oxycodone 5 mg capsule 2.5 mg PO Q6H senna-docusate sodium Tablet 1 tab PO BID lorazepam [Ativan] 0.5 mg tablet 0.5 mg PO Q8H PRN (Reason: anxiety) potassium chloride [K-Tab] 20 mEq tablet extended release 20 meq PO DAILY ondansetron 4 mg tablet,disintegrating 4 mg PO Q8H PRN (Reason: nausea and vomiting) ofloxacin 0.3 % drops 5 drp EACH EAR Q12H nystatin 100,000 unit/gram powder 1 applic topical BID polyethylene glycol 3350 17 gram powder in packet 17 g PO DAILY No Action triamcinolone acetonide 0.1 % cream 1 applic TOPICAL BID Patient Comments: Apply 1 application to affected area twice daily. For ear eczema/psoriasis, Apply sparingly to area for rash/itching. Referrals / Follow Up: Kei Pineda DO [Primary Care Provider] - Disposition Disposition (needs filled in before D/C Order can be placed): Home Health Service
[2023-04-26 22:10] VITALS: BP 115/50; PULSE 84
[2023-04-26] MEDS: MELATONIN 10 MG TABLET PO (22:13)
[2023-04-26] MEDS: Furosemide 40 MG Tablet PO (22:13)
[2023-04-26] MEDS: LORazepam 0.5 MG Tablet PO (22:16)
[2023-04-27] MEDS: DiphenhydrAMINE 25 MG Capsule PO ×3 (04:38→22:26)
[2023-04-27] MEDS: Albuterol IH (6.7 GM) 1 PUFF INHALER 2 PUFF INHALATION ×4 (04:39→22:11)
[2023-04-27] MEDS: Vitamin B Comp W-C Capsule 1 CAP PO (09:07)
[2023-04-27] MEDS: Calcium Carb/Vitamin D 1 TABLET Tablet PO ×2 (09:07→17:25)
[2023-04-27] MEDS: Famotidine 20 MG Tablet PO ×2 (09:07→22:13)
[2023-04-27] MEDS: Potassium Chloride Oral Tablet 20 MEQ PO (09:07)
[2023-04-27] MEDS: Senna/Docusate Sodium 1 Tablet PO ×2 (09:08→22:15)
[2023-04-27] MEDS: Paroxetine 20 MG Tablet 40 MG PO (09:08)
[2023-04-27] MEDS: buPROPion (SR) 150 MG Tablet.SA PO ×2 (09:08→22:11)
[2023-04-27] MEDS: Miconazole Nitrate 43 GM Bottle 1 APPLIC TOPICAL ×2 (09:11→22:14)
[2023-04-27] MEDS: Menthol/Lanolin/Calamine/Znox 113 GM Tube 1 APPLIC TOPICAL ×2 (09:12→22:13)
[2023-04-27] MEDS: Hydrocortisone 2.5% Crm 1 APPLIC TOPICAL (09:12)
[2023-04-27 11:48] VITALS: BP 112/70; PULSE 97; RESP 17; TEMP 36.8; O2SAT 95
[2023-04-27] MEDS: COVID VAC 23-24(12UP)(ANDU)/PF 50 MCG/0.5 ML SYRINGE IM (15:11)
[2023-04-27 22:10] VITALS: PULSE 62; RESP 16; O2SAT 96
[2023-04-27] MEDS: Furosemide 40 MG Tablet PO (22:12)
[2023-04-27] MEDS: LORazepam 0.5 MG Tablet PO (22:26)
[2023-04-27] MEDS: MELATONIN 10 MG TABLET PO (22:26)
[2023-04-28] MEDS: Hydrocortisone 2.5% Crm 1 APPLIC TOPICAL ×2 (05:55→22:16)
[2023-04-28] MEDS: DiphenhydrAMINE 25 MG Capsule PO ×3 (06:06→22:10)
[2023-04-28] MEDS: Albuterol IH (6.7 GM) 1 PUFF INHALER 2 PUFF INHALATION ×4 (06:06→22:10)
[2023-04-28] MEDS: Miconazole Nitrate 43 GM Bottle 1 APPLIC TOPICAL ×2 (09:05→22:11)
[2023-04-28] MEDS: Menthol/Lanolin/Calamine/Znox 113 GM Tube 1 APPLIC TOPICAL ×2 (09:05→22:10)
[2023-04-28] MEDS: Calcium Carb/Vitamin D 1 TABLET Tablet PO ×2 (09:08→18:44)
[2023-04-28] MEDS: Vitamin B Comp W-C Capsule 1 CAP PO (09:08)
[2023-04-28] MEDS: Paroxetine 20 MG Tablet 40 MG PO (09:08)
[2023-04-28] MEDS: Potassium Chloride Oral Tablet 20 MEQ PO (09:08)
[2023-04-28] MEDS: buPROPion (SR) 150 MG Tablet.SA PO ×2 (09:09→22:10)
[2023-04-28] MEDS: Senna/Docusate Sodium 1 Tablet PO ×2 (09:09→22:10)
[2023-04-28] MEDS: Famotidine 20 MG Tablet PO ×2 (09:09→22:10)
[2023-04-28] MEDS: oxyCODONE 5 MG Tablet PO (12:56)
[2023-04-28 15:48] VITALS: BP 102/43; PULSE 87; RESP 16; TEMP 37.5; O2SAT 94
[2023-04-28] MEDS: MELATONIN 10 MG TABLET PO (22:10)
[2023-04-28] MEDS: Furosemide 40 MG Tablet PO (22:10)
[2023-04-28] MEDS: cycloBENZAPRine HCl 10 MG Tablet PO (22:15)
[2023-04-29] MEDS: LORazepam 0.5 MG Tablet PO ×2 (00:35→21:46)
[2023-04-29] MEDS: DiphenhydrAMINE 25 MG Capsule PO (03:48)
[2023-04-29] MEDS: Triamcinolone Acetonide 0.1% Cream 15 gm 1 APPLIC TOPICAL (03:49)
[2023-04-29] MEDS: cycloBENZAPRine HCl 10 MG Tablet PO (07:29)
[2023-04-29] MEDS: Albuterol IH (6.7 GM) 1 PUFF INHALER 2 PUFF INHALATION ×4 (07:31→21:46)
[2023-04-29] MEDS: hydrOXYzine PAM 25 MG Capsule PO (08:29)
[2023-04-29] MEDS: Calcium Carb/Vitamin D 1 TABLET Tablet PO ×2 (08:30→17:13)
[2023-04-29] MEDS: Hydrocortisone 2.5% Crm 1 APPLIC TOPICAL (10:56)
[2023-04-29] MEDS: Potassium Chloride Oral Tablet 20 MEQ PO (10:59)
[2023-04-29] MEDS: Vitamin B Comp W-C Capsule 1 CAP PO (10:59)
[2023-04-29] MEDS: Senna/Docusate Sodium 1 Tablet PO ×2 (11:00→21:46)
[2023-04-29] MEDS: Famotidine 20 MG Tablet PO ×2 (11:00→21:46)
[2023-04-29] MEDS: Paroxetine 20 MG Tablet 40 MG PO (11:00)
[2023-04-29] MEDS: buPROPion (SR) 150 MG Tablet.SA PO ×2 (11:00→21:46)
[2023-04-29] MEDS: Menthol/Lanolin/Calamine/Znox 113 GM Tube 1 APPLIC TOPICAL ×2 (11:01→21:48)
[2023-04-29] MEDS: Miconazole Nitrate 43 GM Bottle 1 APPLIC TOPICAL ×2 (11:01→21:48)
[2023-04-29 14:44] VITALS: BP 106/68; PULSE 125; RESP 16; TEMP 36.2; O2SAT 95
[2023-04-29] MEDS: Furosemide 40 MG Tablet PO (21:46)
[2023-04-29] MEDS: MELATONIN 10 MG TABLET PO (21:46)
[2023-04-30] MEDS: Albuterol IH (6.7 GM) 1 PUFF INHALER 2 PUFF INHALATION ×4 (06:01→21:25)
[2023-04-30 09:04] VITALS: BP 98/55; PULSE 96; RESP 17; TEMP 36.6; O2SAT 94
[2023-04-30] MEDS: Vitamin B Comp W-C Capsule 1 CAP PO (09:07)
[2023-04-30] MEDS: Calcium Carb/Vitamin D 1 TABLET Tablet PO ×2 (09:07→16:21)
[2023-04-30] MEDS: Potassium Chloride Oral Tablet 20 MEQ PO (09:07)
[2023-04-30] MEDS: Senna/Docusate Sodium 1 Tablet PO ×2 (09:08→21:25)
[2023-04-30] MEDS: Paroxetine 20 MG Tablet 40 MG PO (09:08)
[2023-04-30] MEDS: Famotidine 20 MG Tablet PO ×2 (09:08→21:25)
[2023-04-30] MEDS: buPROPion (SR) 150 MG Tablet.SA PO ×2 (09:08→21:25)
[2023-04-30] MEDS: Miconazole Nitrate 43 GM Bottle 1 APPLIC TOPICAL ×2 (09:09→21:26)
[2023-04-30] MEDS: Menthol/Lanolin/Calamine/Znox 113 GM Tube 1 APPLIC TOPICAL ×2 (09:09→21:25)
[2023-04-30] MEDS: Hydrocortisone 2.5% Crm 1 APPLIC TOPICAL ×2 (13:11→21:25)
[2023-04-30] MEDS: hydrOXYzine PAM 25 MG Capsule PO ×2 (13:11→21:24)
[2023-04-30] MEDS: Furosemide 40 MG Tablet PO (21:25)
[2023-04-30] MEDS: MELATONIN 10 MG TABLET PO (21:25)
[2023-05-01] MEDS: Hydrocortisone 2.5% Crm 1 APPLIC TOPICAL ×2 (02:00→13:33)
[2023-05-01] MEDS: Albuterol IH (6.7 GM) 1 PUFF INHALER 2 PUFF INHALATION ×4 (05:29→20:11)
[2023-05-01 05:54] LABS: Absolute Lymphocyte Count 2.41 X10^3/uL (0.83-4.51); Absolute Neutrophil Count 2.9 X10^3/uL (2.0-7.7); Basophil# 0.01 X10^3/uL; Basophil% 0.2 % (0-1); Eosinophil# 0.09 X10^3/uL; Eosinophils% 1.5 % (0-5); Hematocrit 37.1 % (37-47); Hemoglobin 11.8 g/dL (12.0-15.0); Lymphocyte # 2.41 X10^3/ul (0.83-4.51); Lymphocyte % 40.4 % (19-41); Mean Corp Hgb Conc 31.8 g/dL (32-36); Mean Corpuscular Volume 87.9 fL (81-99); Mean Platelet Vol. 8.9 fl (6.2-12.0); Monocyte% 8.4 % (0-10); NRBC Flagged by Analyzer 0 % (0-5); Neutrophil # 2.94 X10^3/uL (2.7-7.7); Neutrophil % 49.2 % (47-70); Platelet Count 345 K/mm3 (150-450); RBC Distribution Width CV 15.7 % (11.6-14.6); RBC Distribution Width SD 50.1 fl (35.1-43.9); Red Blood Count 4.22 M/mm3 (4.2-5.4)
[2023-05-01 06:11] LABS: Anion Gap 4 (5-15); BUN 33 mg/dL (7-18); BUN/Creat Ratio 40.8 RATIO (10-20); Calcium,Total 8.8 mg/dL (8.5-10.1); Chloride 104 mmol/L (98-107); Creatinine, Serum 0.81 mg/dL (0.55-1.02); EST Glomerular Filtration Rate 74 mL/min (>60); Est Glom Filt Rate - Afr Amer 89 mL/min (>60); Estimated Creatinine Clearance 71.16 ml/min; Glucose 97 mg/dL (74-106); Potassium 3.8 mmol/L (3.5-5.1); Sodium Level 141 mmol/L (136-145)
[2023-05-01 09:45] VITALS: BP 102/50; PULSE 89; RESP 16; TEMP 37.3; O2SAT 96
[2023-05-01] MEDS: Menthol/Lanolin/Calamine/Znox 113 GM Tube 1 APPLIC TOPICAL ×2 (09:47→20:11)
[2023-05-01] MEDS: Calcium Carb/Vitamin D 1 TABLET Tablet PO ×2 (09:47→17:26)
[2023-05-01] MEDS: Vitamin B Comp W-C Capsule 1 CAP PO (09:47)
[2023-05-01] MEDS: Miconazole Nitrate 43 GM Bottle 1 APPLIC TOPICAL ×2 (09:47→20:11)
[2023-05-01] MEDS: Potassium Chloride Oral Tablet 20 MEQ PO (09:48)
[2023-05-01] MEDS: Paroxetine 20 MG Tablet 40 MG PO (09:48)
[2023-05-01] MEDS: Famotidine 20 MG Tablet PO ×2 (09:48→22:43)
[2023-05-01] MEDS: buPROPion (SR) 150 MG Tablet.SA PO ×2 (09:48→22:43)
[2023-05-01] MEDS: hydrOXYzine PAM 25 MG Capsule PO ×2 (09:53→17:27)
[2023-05-01 21:32] VITALS: BP 112/49; PULSE 81; TEMP 36.4; O2SAT 95
[2023-05-01] MEDS: Acetaminophen 500 MG Tablet 1000 MG PO (22:41)
[2023-05-01] MEDS: LORazepam 0.5 MG Tablet PO (22:42)
[2023-05-01] MEDS: Furosemide 40 MG Tablet PO (22:42)
[2023-05-01] MEDS: Senna/Docusate Sodium 1 Tablet PO (22:42)
[2023-05-01] MEDS: MELATONIN 10 MG TABLET PO (22:43)
[2023-05-02] MEDS: hydrOXYzine PAM 25 MG Capsule PO ×3 (02:13→18:11)
[2023-05-02] MEDS: Hydrocortisone 2.5% Crm 1 APPLIC TOPICAL (02:16)
[2023-05-02] MEDS: Albuterol IH (6.7 GM) 1 PUFF INHALER 2 PUFF INHALATION ×4 (04:55→23:10)
[2023-05-02] MEDS: Calcium Carb/Vitamin D 1 TABLET Tablet PO ×2 (08:32→18:12)
[2023-05-02] MEDS: Menthol/Lanolin/Calamine/Znox 113 GM Tube 1 APPLIC TOPICAL (08:32)
[2023-05-02] MEDS: Ergocalciferol 1.25 MG (50, 000 UNIT) Capsule PO (08:32)
[2023-05-02] MEDS: Vitamin B Comp W-C Capsule 1 CAP PO (08:32)
[2023-05-02] MEDS: Miconazole Nitrate 43 GM Bottle 1 APPLIC TOPICAL ×2 (08:33→23:05)
[2023-05-02] MEDS: Potassium Chloride Oral Tablet 20 MEQ PO (08:33)
[2023-05-02] MEDS: Senna/Docusate Sodium 1 Tablet PO ×2 (08:34→23:08)
[2023-05-02] MEDS: Famotidine 20 MG Tablet PO ×2 (08:34→23:08)
[2023-05-02] MEDS: buPROPion (SR) 150 MG Tablet.SA PO ×2 (08:35→23:09)
[2023-05-02] MEDS: Paroxetine 20 MG Tablet 40 MG PO (09:56)
[2023-05-02 14:32] VITALS: BP 116/59; PULSE 92; RESP 18; TEMP 36.7; O2SAT 97
[2023-05-02 21:32] VITALS: BP 116/72; PULSE 88; RESP 18; TEMP 36.8; O2SAT 96
[2023-05-02] MEDS: LORazepam 0.5 MG Tablet PO (23:04)
[2023-05-02] MEDS: MELATONIN 10 MG TABLET PO (23:08)
[2023-05-02] MEDS: Furosemide 40 MG Tablet PO (23:08)
[2023-05-03] MEDS: Albuterol IH (6.7 GM) 1 PUFF INHALER 2 PUFF INHALATION ×3 (05:38→20:17)
[2023-05-03 09:19] VITALS: BP 97/52; PULSE 84; RESP 16; TEMP 36.9; O2SAT 93
[2023-05-03] MEDS: Menthol/Lanolin/Calamine/Znox 113 GM Tube 1 APPLIC TOPICAL ×2 (09:22→20:19)
[2023-05-03] MEDS: Vitamin B Comp W-C Capsule 1 CAP PO (09:22)
[2023-05-03] MEDS: Calcium Carb/Vitamin D 1 TABLET Tablet PO ×2 (09:22→17:56)
[2023-05-03] MEDS: Miconazole Nitrate 43 GM Bottle 1 APPLIC TOPICAL ×2 (09:22→20:18)
[2023-05-03] MEDS: Paroxetine 20 MG Tablet 40 MG PO (09:23)
[2023-05-03] MEDS: Potassium Chloride Oral Tablet 20 MEQ PO (09:23)
[2023-05-03] MEDS: buPROPion (SR) 150 MG Tablet.SA PO ×2 (09:23→20:21)
[2023-05-03] MEDS: Senna/Docusate Sodium 1 Tablet PO ×2 (09:24→20:21)
[2023-05-03] MEDS: Famotidine 20 MG Tablet PO ×2 (09:26→20:20)
[2023-05-03] MEDS: hydrOXYzine PAM 25 MG Capsule PO (09:29)
[2023-05-03 11:33] VITALS: BMI 34.3
[2023-05-03] MEDS: cycloBENZAPRine HCl 10 MG Tablet PO (20:19)
[2023-05-03] MEDS: LORazepam 0.5 MG Tablet PO (20:19)
[2023-05-03] MEDS: Furosemide 40 MG Tablet PO (20:20)
[2023-05-03] MEDS: MELATONIN 10 MG TABLET PO (20:20)
[2023-05-03 21:09] VITALS: PULSE 84; RESP 18; O2SAT 98
[2023-05-04] MEDS: Albuterol IH (6.7 GM) 1 PUFF INHALER 2 PUFF INHALATION ×4 (05:39→21:40)
[2023-05-04] MEDS: Senna/Docusate Sodium 1 Tablet PO (08:44)
[2023-05-04] MEDS: Miconazole Nitrate 43 GM Bottle 1 APPLIC TOPICAL ×2 (08:44→21:38)
[2023-05-04] MEDS: Vitamin B Comp W-C Capsule 1 CAP PO (08:44)
[2023-05-04] MEDS: Calcium Carb/Vitamin D 1 TABLET Tablet PO ×2 (08:44→17:19)
[2023-05-04] MEDS: Paroxetine 20 MG Tablet 40 MG PO (08:44)
[2023-05-04] MEDS: Famotidine 20 MG Tablet PO ×2 (08:44→21:36)
[2023-05-04] MEDS: Potassium Chloride Oral Tablet 20 MEQ PO (08:44)
[2023-05-04] MEDS: buPROPion (SR) 150 MG Tablet.SA PO ×2 (08:44→21:37)
[2023-05-04] MEDS: Acetaminophen 500 MG Tablet 1000 MG PO (08:46)
[2023-05-04 10:00] VITALS: RESP 16
[2023-05-04] MEDS: Menthol/Lanolin/Calamine/Znox 113 GM Tube 1 APPLIC TOPICAL ×2 (15:04→21:38)
[2023-05-04 16:00] VITALS: BP 101/47; PULSE 66; RESP 16; TEMP 36.3; O2SAT 97
[2023-05-04] MEDS: Furosemide 40 MG Tablet PO (21:35)
[2023-05-04] MEDS: MELATONIN 10 MG TABLET PO (21:36)
[2023-05-04 21:40] VITALS: BP 114/68; PULSE 84; RESP 18; TEMP 36.6; O2SAT 96
[2023-05-04] MEDS: oxyCODONE 5 MG Tablet PO (21:43)
[2023-05-04] MEDS: LORazepam 0.5 MG Tablet PO (23:17)
[2023-05-05] MEDS: oxyCODONE 5 MG Tablet PO ×2 (03:51→21:55)
[2023-05-05] MEDS: Albuterol IH (6.7 GM) 1 PUFF INHALER 2 PUFF INHALATION ×4 (06:18→21:55)
[2023-05-05] MEDS: Miconazole Nitrate 43 GM Bottle 1 APPLIC TOPICAL ×2 (10:30→21:54)
[2023-05-05] MEDS: Menthol/Lanolin/Calamine/Znox 113 GM Tube 1 APPLIC TOPICAL ×2 (10:31→21:54)
[2023-05-05] MEDS: buPROPion (SR) 150 MG Tablet.SA PO ×2 (10:41→21:57)
[2023-05-05] MEDS: Calcium Carb/Vitamin D 1 TABLET Tablet PO ×2 (10:41→17:39)
[2023-05-05] MEDS: Paroxetine 20 MG Tablet 40 MG PO (10:41)
[2023-05-05] MEDS: Potassium Chloride Oral Tablet 20 MEQ PO (10:41)
[2023-05-05] MEDS: Famotidine 20 MG Tablet PO ×2 (10:41→21:57)
[2023-05-05] MEDS: Vitamin B Comp W-C Capsule 1 CAP PO (10:41)
[2023-05-05 13:42] VITALS: BP 115/62; PULSE 101; RESP 14; TEMP 36; O2SAT 95
[2023-05-05] MEDS: LORazepam 0.5 MG Tablet PO (21:55)
[2023-05-05] MEDS: cycloBENZAPRine HCl 10 MG Tablet PO (21:55)
[2023-05-05] MEDS: MELATONIN 10 MG TABLET PO (21:56)
[2023-05-05] MEDS: Furosemide 40 MG Tablet PO (21:56)
[2023-05-05] MEDS: Senna/Docusate Sodium 1 Tablet PO (21:57)
[2023-05-05 22:10] VITALS: PULSE 86; RESP 18; O2SAT 98
[2023-05-06] MEDS: Albuterol IH (6.7 GM) 1 PUFF INHALER 2 PUFF INHALATION ×4 (05:17→20:29)
[2023-05-06 05:21] VITALS: PULSE 83; RESP 16; O2SAT 96
[2023-05-06] MEDS: Miconazole Nitrate 43 GM Bottle 1 APPLIC TOPICAL ×2 (08:53→20:29)
[2023-05-06] MEDS: Menthol/Lanolin/Calamine/Znox 113 GM Tube 1 APPLIC TOPICAL ×2 (08:53→20:29)
[2023-05-06] MEDS: Calcium Carb/Vitamin D 1 TABLET Tablet PO ×2 (08:53→16:49)
[2023-05-06] MEDS: Paroxetine 20 MG Tablet 40 MG PO (08:53)
[2023-05-06] MEDS: buPROPion (SR) 150 MG Tablet.SA PO ×2 (08:53→20:32)
[2023-05-06] MEDS: Vitamin B Comp W-C Capsule 1 CAP PO (08:54)
[2023-05-06] MEDS: Famotidine 20 MG Tablet PO ×2 (08:54→20:31)
[2023-05-06] MEDS: Potassium Chloride Oral Tablet 20 MEQ PO (08:54)
[2023-05-06 13:54] VITALS: BP 112/64; PULSE 98; RESP 18; TEMP 36.8; O2SAT 97
--- NOTE | 2023-05-06 15:03 | CASEMGMT ---
Social Work BIMS and PHQ-9 completed for MDS assessment. Najma Strickland, CANVAS WORKER APPRENTICE CH[employer] LEAD
[2023-05-06] MEDS: cycloBENZAPRine HCl 10 MG Tablet PO (20:30)
[2023-05-06] MEDS: oxyCODONE 5 MG Tablet PO (20:30)
[2023-05-06] MEDS: MELATONIN 10 MG TABLET PO (20:31)
[2023-05-06 20:38] VITALS: BP 98/60
[2023-05-06] MEDS: hydrOXYzine PAM 25 MG Capsule PO (22:30)
[2023-05-07] MEDS: Albuterol IH (6.7 GM) 1 PUFF INHALER 2 PUFF INHALATION ×3 (05:22→17:18)
[2023-05-07] MEDS: Calcium Carb/Vitamin D 1 TABLET Tablet PO ×2 (08:20→17:19)
[2023-05-07] MEDS: Potassium Chloride Oral Tablet 20 MEQ PO (08:21)
[2023-05-07] MEDS: Paroxetine 20 MG Tablet 40 MG PO (08:21)
[2023-05-07] MEDS: Vitamin B Comp W-C Capsule 1 CAP PO (08:21)
[2023-05-07] MEDS: Famotidine 20 MG Tablet PO ×2 (08:22→21:49)
[2023-05-07] MEDS: Miconazole Nitrate 43 GM Bottle 1 APPLIC TOPICAL ×2 (08:23→21:54)
[2023-05-07] MEDS: buPROPion (SR) 150 MG Tablet.SA PO ×2 (08:23→21:49)
[2023-05-07] MEDS: Menthol/Lanolin/Calamine/Znox 113 GM Tube 1 APPLIC TOPICAL ×2 (08:24→21:55)
[2023-05-07 15:39] VITALS: BP 110/49; PULSE 82; RESP 18; TEMP 36.3; O2SAT 96
[2023-05-07] MEDS: hydrOXYzine PAM 25 MG Capsule PO (15:39)
[2023-05-07] MEDS: MELATONIN 10 MG TABLET PO (21:49)
[2023-05-07] MEDS: oxyCODONE 5 MG Tablet PO (21:51)
[2023-05-07] MEDS: Acetaminophen 500 MG Tablet 1000 MG PO (21:52)
[2023-05-08] MEDS: hydrOXYzine PAM 25 MG Capsule PO (01:15)
[2023-05-08 07:30] LABS: Absolute Lymphocyte Count 2.11 X10^3/uL (0.83-4.51); Absolute Neutrophil Count 2.2 X10^3/uL (2.0-7.7); Basophil# 0.04 X10^3/uL; Basophil% 0.8 % (0-1); Eosinophil# 0.12 X10^3/uL; Eosinophils% 2.5 % (0-5); Hematocrit 33.8 % (37-47); Hemoglobin 10.6 g/dL (12.0-15.0); Lymphocyte # 2.11 X10^3/ul (0.83-4.51); Lymphocyte % 44.1 % (19-41); Mean Corp Hgb Conc 31.4 g/dL (32-36); Mean Corpuscular Hgb 27.5 pg (27.0-32.0); Mean Corpuscular Volume 87.8 fL (81-99); Mean Platelet Vol. 8.7 fl (6.2-12.0); Monocyte# 0.35 X10^3/uL; Monocyte% 7.3 % (0-10); NRBC Flagged by Analyzer 0 % (0-5); Neutrophil # 2.15 X10^3/uL (2.7-7.7); Neutrophil % 45.1 % (47-70); Platelet Count 319 K/mm3 (150-450); RBC Distribution Width CV 15.4 % (11.6-14.6); RBC Distribution Width SD 49.2 fl (35.1-43.9); Red Blood Count 3.85 M/mm3 (4.2-5.4); White Blood Count 4.8 K/mm3 (4.4-11.0)
[2023-05-08 07:53] LABS: Anion Gap 2 (5-15); BUN 31 mg/dL (7-18); Calcium,Total 8.7 mg/dL (8.5-10.1); Chloride 110 mmol/L (98-107); EST Glomerular Filtration Rate 75 mL/min (>60); Est Glom Filt Rate - Afr Amer 91 mL/min (>60); Estimated Creatinine Clearance 74.01 ml/min; Glucose 88 mg/dL (74-106); Potassium 4.7 mmol/L (3.5-5.1); Sodium Level 140 mmol/L (136-145)
[2023-05-08] MEDS: Paroxetine 20 MG Tablet 40 MG PO (09:28)
[2023-05-08] MEDS: Vitamin B Comp W-C Capsule 1 CAP PO (09:28)
[2023-05-08] MEDS: Senna/Docusate Sodium 1 Tablet PO (09:28)
[2023-05-08] MEDS: Calcium Carb/Vitamin D 1 TABLET Tablet PO ×2 (09:28→17:50)
[2023-05-08] MEDS: Potassium Chloride Oral Tablet 20 MEQ PO (09:28)
[2023-05-08] MEDS: Miconazole Nitrate 43 GM Bottle 1 APPLIC TOPICAL ×2 (09:29→22:42)
[2023-05-08] MEDS: Famotidine 20 MG Tablet PO ×2 (09:30→22:43)
[2023-05-08] MEDS: buPROPion (SR) 150 MG Tablet.SA PO ×2 (09:31→22:39)
[2023-05-08] MEDS: Menthol/Lanolin/Calamine/Znox 113 GM Tube 1 APPLIC TOPICAL ×2 (09:32→22:42)
[2023-05-08 12:50] VITALS: BP 138/57; PULSE 110; RESP 18; TEMP 36.9; O2SAT 99
[2023-05-08] MEDS: Albuterol IH (6.7 GM) 1 PUFF INHALER 2 PUFF INHALATION ×2 (17:50→22:44)
[2023-05-08] MEDS: MELATONIN 10 MG TABLET PO (22:39)
[2023-05-08] MEDS: Acetaminophen 500 MG Tablet 1000 MG PO (22:41)
[2023-05-08] MEDS: oxyCODONE 5 MG Tablet PO (22:41)
[2023-05-09] MEDS: hydrOXYzine PAM 25 MG Capsule PO (03:28)
[2023-05-09] MEDS: Calcium Carb/Vitamin D 1 TABLET Tablet PO (09:31)
[2023-05-09] MEDS: Paroxetine 20 MG Tablet 40 MG PO (09:32)
[2023-05-09] MEDS: Famotidine 20 MG Tablet PO (09:32)
[2023-05-09] MEDS: Potassium Chloride Oral Tablet 20 MEQ PO (09:32)
[2023-05-09] MEDS: buPROPion (SR) 150 MG Tablet.SA PO (09:32)
[2023-05-09] MEDS: Vitamin B Comp W-C Capsule 1 CAP PO (09:33)
[2023-05-09] MEDS: Ergocalciferol 1.25 MG (50, 000 UNIT) Capsule PO (09:33)
[2023-05-09] MEDS: Senna/Docusate Sodium 1 Tablet PO (09:33)
[2023-05-09] MEDS: Menthol/Lanolin/Calamine/Znox 113 GM Tube 1 APPLIC TOPICAL (09:35)
[2023-05-09] MEDS: Miconazole Nitrate 43 GM Bottle 1 APPLIC TOPICAL (09:36)
== END 2023-05-09 11:21 | disposition home health service (06) | DRG 559 ==
PROVIDERS: Admitting Provider Family Medicine Geriatric Medicine; PCP Student in an Organized Health Care Education/Training Program; Visit Provider Family Medicine Geriatric Medicine
DX: S42.301D Unspecified fracture of shaft of humerus, right arm, subsequent encounter for fracture with routine healing (principal); I50.21 Acute systolic (congestive) heart failure; I42.0 Dilated cardiomyopathy; L03.113 Cellulitis of right upper limb; D50.9 Iron deficiency anemia, unspecified; G62.9 Polyneuropathy, unspecified; B35.4 Tinea corporis; I11.0 Hypertensive heart disease with heart failure; J44.9 Chronic obstructive pulmonary disease, unspecified; E03.9 Hypothyroidism, unspecified; F32.A Depression, unspecified; E55.9 Vitamin D deficiency, unspecified; K21.9 Gastro-esophageal reflux disease without esophagitis; G47.33 Obstructive sleep apnea (adult) (pediatric); W19.XXXD Unspecified fall, subsequent encounter; F41.9 Anxiety disorder, unspecified; E87.6 Hypokalemia; I95.1 Orthostatic hypotension; E66.9 Obesity, unspecified; Z87.891 Personal history of nicotine dependence; S22.41XD Multiple fractures of ribs, right side, subsequent encounter for fracture with routine healing; Z79.899 Other long term (current) drug therapy; M81.0 Age-related osteoporosis without current pathological fracture; Z23 Encounter for immunization; Z98.84 Bariatric surgery status; Z68.38 Body mass index [BMI] 38.0-38.9, adult
CPT/HCPCS: 36415; 72110; 73090; 73100; 73502; 80048; 85014; 85018; 85025; 87811; 90480; 97110; 97116; 97162; 97165; 97530; 97535; 97802; 91322

== ENCOUNTER 2024-01-15 15:52 | Inpatient (IN) | payer MEDICARE, OTHER, SELFPAY ==
[2024-01-15] VITALS (8 sets, daily range): BP systolic 100–138; BP diastolic 50–73; PULSE 93–104; RESP 16–20; TEMP 36.4–36.8; O2SAT 97–99; BMI 35.0; BMI 33.7
--- NOTE | 2024-01-15 16:24 | EKG12_ITS ---
Test Reason : CP Blood Pressure : / mmHG Vent. Rate : 104 BPM Atrial Rate : 117 BPM P-R Int : 160 ms QRS Dur : 110 ms QT Int : 352 ms P-R-T Axes : 000 -43 135 degrees QTc Int : 462 ms Atrial flutter with variable conduction Left axis deviation Minimal voltage criteria for LVH, may be normal variant ( [place] product ) ST & T wave abnormality, consider lateral ischemia Abnormal ECG Confirmed by Triston Juarez ([id number]), telegraph editor JONI BOSS ([id number]) on 01/16/2024 2:09:54 PM Referred By: JOSEPH/REBEKAH Confirmed By:Triston Juarez
--- NOTE | 2024-01-15 16:26 | ED.VIS.CHEST ---
HPI History of Present Illness Chief Complaint: Chest Pain Informant: patient Onset/Context/Timing Onset: Days (2) Activity at onset: gradual Timing: Intermittent Quality: Positive for Aching Location: Substernal (And epigastric area) Worsened By: Nothing Relieved By: - (Deep breathing exercises, and muscle relaxer medicines) Associated Symptoms: Positive for Nausea, Diaphoresis, Cough, Lightheadedness and Palpitations; Negative for Vomiting, Dyspnea, Fever or Acid Reflux Narrative Narrative: Patient presents with chest pain and dizziness that has been intermittent over the last 2 days. Patient describes her pain as aching and pressure. Patient states it is over the lower substernal and epigastric area. Patient states that if she does some deep breathing exercises and takes a muscle relaxer that it sometimes helps. Patient admits to occasional diaphoresis. Patient admits to some nausea but denies any vomiting. Patient admits to some palpitations where she feels like her heart is racing. Patient denies any shortness of breath. Patient was still mild cough. Patient denies any fevers or chills. CVD Risk Factors: Positive for Hypertension; Negative for Diabetes, Hypercholesterolemia, Family History 1' </=55 or Smoking PE Risk Factors: Negative for Recent Travel/Surgery, Recent Immobilization, Prior DVT or PE, Cancer or OCP + Smoking + >/=35 [facility] Medical History Closed fracture of right distal humerus Broken shoulder Essential hypertension Dilated cardiomyopathy Bilateral pleural effusion Osteoporosis GERD (gastroesophageal reflux disease) Obesity Anemia Depression Osteoarthritis Obstructive sleep apnea COPD (chronic obstructive pulmonary disease) Home Medications ?Medication ?Instructions ?Recorded ?Last Taken ?Type calcium carbonate 500 mg-vitamin 1 tab PO BIDCM supplement 05/09/20 10/28/22 History D3 5 mcg (200 unit) tablet paroxetine HCl 30 mg tablet 40 mg PO DAILY depression 05/09/20 10/29/22 History bupropion HCl 150 mg tablet,12 hr 150 mg PO BID mood 11/02/22 Unknown History sustained-release albuterol 90 mcg/actuation aerosol 90 mcg inhalation .four times day 03/26/23 Unknown History inhaler lungs ergocalciferol (vitamin D2) 1,250 50,000 unit PO .every tuesday bones 03/26/23 Unknown History mcg (50,000 unit) capsule famotidine 20 mg tablet (Acid 20 mg PO BID acid reflux 03/26/23 Unknown History Controller) furosemide 40 mg tablet 40 mg PO DAILY water pill 03/26/23 Unknown History triamcinolone acetonide 0.1 % 1 applic topical BID fungal 03/26/23 Unknown History topical cream vitamin B complex 1 tab PO DAILY supp 03/26/23 Unknown History acetaminophen 500 mg tablet 1,000 mg (2 x 500 mg) PO Q6H PRN 04/26/23 Unknown Rx PRN Pain Score 1-5 #0 tabs potassium chloride 20 mEq 20 meq PO DAILY 30 days #30 tabs 04/26/23 Unknown Rx tablet,extended release(part/cryst) (Klor-Con M) Allergy/AdvReac Type Severity Reaction Status Date / Time diclofenac (From Voltaren) Allergy Rash Verified 01/15/24 15:54 hydrocodone (From Vicodin) AdvReac Other Verified 01/15/24 15:54 vistaril AdvReac Intermediate hallucinati Uncoded 05/09/23 09:45 ons Family History Mother Diabetes Heart disease Hypertension Hyperlipidemia Father Diabetes Heart disease Hypertension Hyperlipidemia Surgical History History of left heart catheterization (12/05/18) History of open reduction and internal fixation (ORIF) procedure History of herniorrhaphy History of Hx of cholecystectomy History of tonsillectomy History of gastric bypass History of open reduction and internal fixation (ORIF) procedure Social History household members: family Smoking Status: Former smoker alcohol intake: never substance use type: does not use ROS ROS ED Constitutional Constitutional ED: Reports sweats; Denies chills or fever(s) Eyes Eyes: Denies blurry vision or change in vision ENT ENT ED: Reports rhinorrhea; Denies sore throat Cardiovascular Cardiovascular: Reports chest pain and palpitations Respiratory/Chest Respiratory/Chest: Reports cough; Denies dyspnea Gastrointestinal Gastrointestinal: Reports nausea; Denies abdominal pain or vomiting Genitourinary Genitourinary ED: Reports urinary frequency; Denies dysuria or hematuria Musculoskeletal Musculoskeletal: Reports neck pain; Denies back pain Integumentary Denies abscess or rash Neurologic Neurologic: Reports headache(s); Denies weakness Allergic/Immunologic Allergic/Immunologic ED: Denies mouth swelling or urticaria EXAM Physical Exam Const Vital Signs: 01/15/24 15:54 01/15/24 16:01 01/15/24 16:24 Temperature 97.6 F L Temperature Source Oral Pulse Rate 104 H Respiratory Rate 16 Respiratory Effort Normal Non-Labored Respiratory Pattern Normal Blood Pressure 100/50 L Blood Pressure Mean 66 Pulse Ox 98 Oxygen Delivery Method Room Air Room Air 01/15/24 17:00 01/15/24 18:00 01/15/24 19:31 Temperature Temperature Source Pulse Rate 97 93 97 Respiratory Rate 20 H 20 H 18 Respiratory Effort Respiratory Pattern Blood Pressure 107/52 L 120/60 121/56 H Blood Pressure Mean 70 80 77 Pulse Ox 99 98 97 Oxygen Delivery Method Room Air Room Air Room Air 01/15/24 20:00 Temperature Temperature Source Pulse Rate 96 Respiratory Rate 18 Respiratory Effort Respiratory Pattern Blood Pressure 125/63 H Blood Pressure Mean 83 Pulse Ox 97 Oxygen Delivery Method Room Air Positive well nourished and well developed General Appearance ED: well developed and NAD HEENT Reports moist mucous membranes Neck supple and no JVD Resp normal respiratory effort and clear to auscultation bilaterally Cardio regular rate and regular rhythm GI soft to palpation, non-tender and non-distended Extremity General Extremety ED: Yes edema General Extremity: edema Neuro oriented x3, CN's II-XII intact bilaterally and no sensory deficits noted Sensorium / Orientation: awake and alert Motor Exam: strength 5/5 throughout Psych mental status grossly normal Heart Score History: Moderately Suspicious ECG: Nonspecific Repolarization Age: >/= 65 years Risk Factors: 1 or 2 Risk Factors Score: 5 MDM MDM MDM Narrative Medical decision making narrative: Differential diagnosis includes cardiac dysrhythmia, cardiac ischemia, pneumonia, pneumothorax, bronchitis, congestive heart failure, urinary tract infection, gastritis, GERD, vertigo, and anxiety. EKG will be obtained to assess for cardiac dysrhythmia and cardiac ischemia. Chest x-ray will be obtained to assess for pneumonia, pneumothorax, and congestive heart failure. CBC will be obtained to assess for leukocytosis and anemia. Basic metabolic profile will be obtained to assess for electrolyte abnormality and renal function. High-sensitivity troponin will be obtained to assess for cardiac ischemia. 2-hour repeat high-sensitivity troponin will be obtained to assess for ongoing cardiac ischemia. BNP will be obtained to assess for congestive heart failure. Urinalysis will be obtained to assess for urinary tract infection and hematuria. History & Record Review Additional record(s) reviewed:: Prior labs Lab Data Attestation: I reviewed the patient's lab results. Lab results narrative: CBC was reviewed and was within normal limits. Basic metabolic profile was reviewed. BUN was slightly elevated at 23 and creatinine was slightly elevated at 1.29. The remainder was essentially within normal limits. Initial high-sensitivity troponin was reviewed and was normal at 29. BNP was reviewed and was slightly elevated at 367.4. Urinalysis was reviewed. Leukocyte esterase was 500 with 10-25 white blood cells and 2+ bacteria. There were positive nitrates. 2-hour repeat troponin was reviewed and was elevated at 71. Labs: Laboratory Results - last 24 hr 01/15/24 01/15/24 01/15/24 16:40 17:30 18:47 WBC 5.5 RBC 4.53 Hgb 12.1 Hct 38.7 MCV 85.4 MCH 26.7 L MCHC 31.3 L RDW Std Deviation 47.2 H RDW Coeff of Joe 15.1 H Plt Count 258 MPV 10.0 Immature Gran % (Auto) 0.200 Neut % (Auto) 62.6 Lymph % (Auto) 29.2 [place] % (Auto) 6.8 Eos % (Auto) 0.5 Baso % (Auto) 0.7 Absolute Neuts (auto) 3.4 Absolute Lymphs (auto) 1.60 Nucleated RBC % 0 Sodium 142 Potassium 3.5 Chloride 104 Carbon Dioxide 35.0 H Anion Gap 3 L BUN 23 H Creatinine 1.29 H Estim Creat Clear Calc 34.97 Est GFR (MDRD) Af Amer 52 L Est GFR (MDRD) Non-Af 43 L BUN/Creatinine Ratio 17.8 Glucose 107 H Calcium 9.6 Troponin I High Sens 29 71 H B-Natriuretic Peptide 367.4 H Urine Color Yellow Urine Clarity Sl. Cloudy Urine pH 7.0 Ur Specific [place] 1.015 Urine Protein 30 H Urine Glucose (UA) Normal Urine Ketones Negative Urine Occult Blood 50 H Urine Nitrite Positive H Urine Bilirubin 1 H Urine Urobilinogen 8 H Ur Leukocyte Esterase 500 H Urine RBC 0 SEEN Urine WBC 10-25 SEEN Ur Squamous Epith Cells 0-5 SEEN Urine Bacteria 2+ Urine Mucus 0 SEEN Radiography Diagnostic Testing: Clinical Impression(s) from Imaging Studies Chest X-Ray 01/15/24 16:55 IMPRESSION: 1. Stable borderline cardiomegaly. 2. No evidence of acute cardiopulmonary process. 3. Partially healed proximal LEFT humeral fracture. Electronically Signed: Capo Monroe MD at 17:16 EDT Reading Location ID and State: [facility] / [place] Tel , Service support , Portable 1 view chest x-ray was obtained. On my independent interpretation, lung coats are clear. There is borderline cardiomegaly. There is a partially healed left proximal humerus fracture. There is no acute process noted. Radiologist also interpreted the x-ray and agrees. EKG Initial EKG: Attestation: I personally reviewed and interpreted this EKG as follows: Interpretation: Sinus Tachycardia (104) and Non-Specific ST Changes Comments: EKG was obtained. On my independent interpretation, it shows sinus tachycardia with a rate of 104. HI interval was normal at 160 ms. QRS interval was normal at 110 ms. QTc interval was normal at 462 ms. There is left axis deviation at -43. There are nonspecific ST-T wave changes noted. Prior EKG tracings: available for review Prior: Unchanged (03/18/2023) Management Discussion w/another healthcare provider: Hospitalist Treatment and Re-Evaluation :: Patient was given aspirin initially. Patient was given a dose of Rocephin here. Urine culture was ordered. Patient was advised of her findings. Patient has a HEART score of 5. Patient was advised that this is moderate risk for acute cardiac event. Because of this, I recommended admission to the hospital. Patient is agreeable with this. Case was discussed with the hospitalist. He will admit the patient to his service. Patient understood and was agreeable with the plan. All questions were answered. Discharge Plan Triage Chief Complaint: Chest Pain ED Provider: Reilly Paula Dx/Rx/DC Orders Clinical Impression: Elevated troponin, Essential hypertension, Urinary tract infection Prescriptions: No Action paroxetine HCl 30 MG tablet 40 mg PO DAILY calcium carbonate-vitamin D3 1 TABLET tablet 1 tab PO BIDCM bupropion HCl 150 mg tablet sustained-release 12 hr 150 mg PO BID albuterol 90 mcg/actuation aerosol 90 mcg inhalation .four times day Rx Instructions: 2 puffs ergocalciferol (vitamin D2) 1,250 mcg (50,000 unit) capsule 50,000 unit PO .every tuesday Patient Comments: Take 1 capsule by mouth one time a week. furosemide 40 mg tablet 40 mg PO DAILY triamcinolone acetonide 0.1 % cream 1 applic TOPICAL BID Patient Comments: Apply 1 application to affected area twice daily. For ear eczema/psoriasis, Apply sparingly to area for rash/itching. vitamin B complex Tablet 1 tab PO DAILY famotidine [Acid Controller] 20 mg tablet 20 mg PO BID acetaminophen 500 mg Tablet 1,000 mg PO Q6H PRN PRN (Reason: Pain Score 1-5) Qty: 0 0RF potassium chloride [Klor-Con M20] 20 mEq Tablet,Er Particles/Crystals 20 meq PO DAILY 30 Days Qty: 30 0RF Primary Care Provider: Kei Pineda Referrals: Kei Pineda DO [Primary Care Provider] - Print Language: Bulgarian Disposition Disposition: Acute Care Hospital [facility]
[2024-01-15] MEDS: Aspirin 81 MG TAB.CHEW 324 MG PO (16:34)
--- NOTE | 2024-01-15 16:55 | RAD_ITS ---
INDICATION: chest pain EXAMINATION/TECHNIQUE: X-RAY - XR Chest 1 View COMPARISON: 03/18/2023 FINDINGS: LIFE-SUPPORT AND LINES: 1. None HEART AND VESSELS: Cardiac silhouette is upper limit of normal. No evidence of congestive failure. LUNGS AND PLEURAL SPACES: Lungs are clear. No focal infiltrate, consolidation or effusions. No evidence of pneumothorax. No pulmonary mass is noted. MEDIASTINUM AND HILAR REGIONS: No masses adenopathy noted. No areas of calcification. Visualized upper airway is normal in position. BONY ELEMENTS: Deformity of the proximal LEFT humeral metadiaphysis consistent with partially healed fracture. RAD/Chest 1 View (Portable) IMPRESSION: 1. Stable borderline cardiomegaly. 2. No evidence of acute cardiopulmonary process. 3. Partially healed proximal LEFT humeral fracture. Electronically Signed: Capo Monroe MD at 17:16 EDT ,
[2024-01-15 16:57] LABS: Absolute Neutrophil Count 3.4 X10^3/uL (2.0-7.7); Basophil# 0.04 X10^3/uL; Basophil% 0.7 % (0-1); Eosinophil# 0.03 X10^3/uL; Eosinophils% 0.5 % (0-5); Hematocrit 38.7 % (37-47); Hemoglobin 12.1 g/dL (12.0-15.0); Lymphocyte % 29.2 % (19-41); Mean Corp Hgb Conc 31.3 g/dL (32-36); Mean Corpuscular Hgb 26.7 pg (27.0-32.0); Mean Corpuscular Volume 85.4 fL (81-99); Monocyte# 0.37 X10^3/uL; Monocyte% 6.8 % (0-10); NRBC Flagged by Analyzer 0 % (0-5); Neutrophil # 3.43 X10^3/uL (2.7-7.7); Neutrophil % 62.6 % (47-70); Platelet Count 258 K/mm3 (150-450); RBC Distribution Width CV 15.1 % (11.6-14.6); RBC Distribution Width SD 47.2 fl (35.1-43.9); Red Blood Count 4.53 M/mm3 (4.2-5.4); White Blood Count 5.5 K/mm3 (4.4-11.0)
[2024-01-15 17:09] LABS: BNP,B-Type NATRIURETIC PEPTIDE 367.4 pg/mL (0-100)
[2024-01-15 17:12] LABS: Anion Gap 3 (5-15); BUN 23 mg/dL (7-18); BUN/Creat Ratio 17.8 RATIO (10-20); Calcium,Total 9.6 mg/dL (8.5-10.1); Chloride 104 mmol/L (98-107); Creatinine, Serum 1.29 mg/dL (0.55-1.02); EST Glomerular Filtration Rate 43 mL/min (>60); Est Glom Filt Rate - Afr Amer 52 mL/min (>60); Estimated Creatinine Clearance 34.97 ml/min; Glucose 107 mg/dL (74-106); Potassium 3.5 mmol/L (3.5-5.1); Sodium Level 142 mmol/L (136-145); Troponin-I HS (w/2H Reflex) 29 pg/mL (3.0-54.0)
[2024-01-15 17:46] LABS: Mucous, Urine 0 SEEN /hpf (<or=2+); Red Blood Cells-Urine 0 SEEN /hpf (0-5)
[2024-01-15 17:58] LABS: Color, Urine Yellow (Yellow); Glucose, Dipstick Normal (Normal); Ketone-Dipstick Negative (Negative); Leukocyte Esterase-Dipstick 500 /ul (Negative); Nitrite-Dipstick Positive (Negative); Occult Blood-Urine 50 /ul (Negative); Protein-Dipstick 30 mg/dl (Negative); Specific Gravity, Urine 1.015 (1.002-1.030); Urine Bilirubin Dipstick 1 mg/dL (Negative); Urine Clarity Sl. Cloudy (Clear); Urine Urobilinogen 8 mg/dl (Normal)
[2024-01-15 18:07] LABS: Bacteria 2+ /hpf (None Seen); Squamous Epithelial Cells - UA 0-5 SEEN /hpf (5-10); White Blood Cells 10-25 SEEN /hpf (0-5)
[2024-01-15 18:50] LABS: Reflex Troponin-HS? (from REC) Y
[2024-01-15 19:16] LABS: Troponin-I HS 71 pg/mL (3.0-54.0)
[2024-01-15] MEDS: Ceftriaxone 1 GM/50 ML BAG IV (19:29)
--- NOTE | 2024-01-15 20:14 | HP.PCM.HOS_ITS ---
[facility] - General General Date of Admission: 01/15/24 Date of Service: 01/15/24 Chief Complaint: Chest Pain, Nausea, Dizziness and progressively worsening lower extremity edema. HPI Narrative BETH HARTMAN, is a 73 F with a past medical history of essential hypertension, hypothyroidism, obesity; with BMI of 35 this admission in the setting of previous gastric bypass, JIMMY, history of tobacco abuse; with subsequent COPD, chronic systolic CHF, history of near syncope, history of anemia, neuropathy, history of vitamin D deficiency, osteoporosis, history of closed fracture of distal humeral lateral epicondyle, history of Right tibial plateau fracture, history of closed traumatic nondisplaced rib fractures, depression, GERD and OA who presents to [facility] ER complaining of chest pain, nausea, dizziness and progressively worsening lower extremity edema. Ms. Hartman reports her symptoms began approximately two days prior to admission with the gradual-onset of progressively worsening chest pain that was substernal and focused in the lower chest, radiating into her epigastric area, moderately aching and pressure-like, intermittent and with deep breathing exercises and taking a muscle relaxer sometimes helping and with exertion seeming to make it worse. She admits to occasional diaphoresis and associated palpitations where she feels like her heart is racing with massive swelling of both of her legs that is progressively worsening. She admits to dizziness, nausea and vomiting with very increased life stress since the of her beloved in November 2022 with a recent acute worsening of her symptoms since the anniversary of his passing resulting in her not getting a body mechanic placed as recommended by her public speaking instructor Dr. Ovalle of [facility]. She denies associated shortness of breath, fever or chills but she does admit to a nonproductive cough. In the ER she was noted to have an elevated initial BNP of 367.4 pg/mL with 4+ bilateral symmetrical lower extremity pitting edema complicated by elevated initial troponin of 71 pg/mL followed by a second troponin of 101 pg/mL consistent with suspected acute cardiac strain compounded by urinalysis positive for acute cystitis; without hematuria in the setting of chronic severe life stress since the of her with suspected Takotsubo's cardiomyopathy with BPPV; triggering intermittent nausea and vomiting and she was then admitted to the PCU for ongoing care for stay that is expected to extend beyond 2 midnights. [facility] Medical History Closed fracture of right distal humerus Broken shoulder Essential hypertension Dilated cardiomyopathy Bilateral pleural effusion Osteoporosis GERD (gastroesophageal reflux disease) Obesity Anemia Depression Osteoarthritis Obstructive sleep apnea COPD (chronic obstructive pulmonary disease) Home Medications ?Medication ?Instructions ?Recorded ?Last Taken ?Type calcium carbonate 500 mg-vitamin 1 tab PO BIDCM supplement 05/09/20 10/28/22 History D3 5 mcg (200 unit) tablet paroxetine HCl 30 mg tablet 40 mg PO DAILY depression 05/09/20 10/29/22 History bupropion HCl 150 mg tablet,12 hr 150 mg PO BID mood 11/02/22 Unknown History sustained-release albuterol 90 mcg/actuation aerosol 90 mcg inhalation .four times day 03/26/23 Unknown History inhaler lungs ergocalciferol (vitamin D2) 1,250 50,000 unit PO .every tuesday bones 03/26/23 Unknown History mcg (50,000 unit) capsule famotidine 20 mg tablet (Acid 20 mg PO BID acid reflux 03/26/23 Unknown History Controller) furosemide 40 mg tablet 40 mg PO DAILY water pill 03/26/23 Unknown History triamcinolone acetonide 0.1 % 1 applic topical BID fungal 03/26/23 Unknown History topical cream vitamin B complex 1 tab PO DAILY supp 03/26/23 Unknown History acetaminophen 500 mg tablet 1,000 mg (2 x 500 mg) PO Q6H PRN 04/26/23 Unknown Rx PRN Pain Score 1-5 #0 tabs potassium chloride 20 mEq 20 meq PO DAILY 30 days #30 tabs 04/26/23 Unknown Rx tablet,extended release(part/cryst) (Klor-Con M) Allergy/AdvReac Type Severity Reaction Status Date / Time diclofenac (From Voltaren) Allergy Rash Verified 01/15/24 22:01 hydroxyzine (From Vistaril) AdvReac Intermediate hallucinati Verified 01/15/24 22:01 ons hydrocodone (From Vicodin) AdvReac Other Verified 01/15/24 22:01 Family History Mother Diabetes Heart disease Hypertension Hyperlipidemia Father Diabetes Heart disease Hypertension Hyperlipidemia Surgical History History of left heart catheterization (12/05/18) History of open reduction and internal fixation (ORIF) procedure History of herniorrhaphy History of Hx of cholecystectomy History of tonsillectomy History of gastric bypass History of open reduction and internal fixation (ORIF) procedure Social History household members: family Smoking Status: Former smoker alcohol intake: never substance use type: does not use ROS ROS Narrative Review of systems: General: Patient admits to sweats and 4+ lower extremity edema but denies chills or fever. HENT: Denies headache, denies stuffy nose, denies sore throat EYES: Denies changes in vision or discharge from eyes. Resp: Denies cough, denies shortness of breath Cardiac: Patient admits to chest pain and palpitations but denies heart racing. GI: Patient admits to nausea but denies vomiting or abdominal pain. : Denies changes in urination Extremity: Patient admits to 3-4+ bilateral lower extremity symmetrical pitting edema. Musculoskeletal: Feels somewhat generally weak and unwell but she denies arthralgias or myalgias Neuro: Patient denies headache, paresthesias or focal neurologic deficits. Heme: Denies any bleeding or bruising Skin: Denies rashes Psychiatric: Patient admits to severe and prolonged grief since the of her and November of last year and has worsened since the anniversary of his . Endocrine: No polyuria, polydipsia or polyphagia The rest of the 14 point ROS was negative except for positives in HPI. Vital Signs Vital Signs Vital Signs: 01/15/24 15:54 01/15/24 16:01 01/15/24 16:24 Temperature 97.6 F L Temperature Source Oral Pulse Rate 104 H Respiratory Rate 16 Respiratory Effort Normal Non-Labored Respiratory Pattern Normal Blood Pressure 100/50 L Blood Pressure Mean 66 Pulse Ox 98 Oxygen Delivery Method Room Air Room Air 01/15/24 17:00 01/15/24 18:00 01/15/24 19:31 Temperature Temperature Source Pulse Rate 97 93 97 Respiratory Rate 20 H 20 H 18 Respiratory Effort Respiratory Pattern Blood Pressure 107/52 L 120/60 121/56 H Blood Pressure Mean 70 80 77 Pulse Ox 99 98 97 Oxygen Delivery Method Room Air Room Air Room Air Weight Weight: 173 lb 8.061 oz Body Mass Index (BMI) 35.0 Physical Exam Const alert, oriented x3, no apparent distress and average body habitus General Appearance: cooperative HEENT normocephalic, head/scalp atraumatic, hearing grossly normal bilaterally and moist oral mucous membranes Eyes PERRL and EOMs intact bilaterally Neck no lymphadenopathy and supple Resp Resp Narrative: Diminished air entry throughout. Cardio regular rate and regular rhythm GI normal to inspection, nondistended, normoactive bowel sounds, soft to palpation, non-tender and non-distended GI Narrative: Obese. Extremity Extremity Narrative: 3-4+ bilateral lower extremity symmetrical pitting edema. Skin Skin Narrative: Patient has no evidence of jaundice, rash or abscess. Neuro oriented x3, CN's II-XII intact bilaterally, moves all extremities and no focal motor deficits Sensorium / Orientation: awake, alert, oriented to person, oriented to place and oriented to time Speech: speech normal Psych Mood & Affect: anxious Results Medical Records Data Attestation: I reviewed the patient's medical records Lab / Micro Data Attestation: I reviewed the patient's lab results. 01/15/24 16:40 01/15/24 16:40 Labs: Laboratory Results - last 24 hr 01/15/24 16:40: WBC 5.5, RBC 4.53, Hgb 12.1, Hct 38.7, MCV 85.4, MCH 26.7 L, M CHC 31.3 L, RDW Std Deviation 47.2 H, RDW Coeff of Joe 15.1 H, Plt Count 258, MPV 10.0, Immature Gran % (Auto) 0.200, Neut % (Auto) 62.6, Lymph % (Auto) 29.2, Hendry % (Auto) 6.8, Eos % (Auto) 0.5, Baso % (Auto) 0.7, Absolute Neuts (auto) 3.4, Absolute Lymphs (auto) 1.60, Nucleated RBC % 0, Sodium 142, Potassium 3.5, Chloride 104, Carbon Dioxide 35.0 H, Anion Gap 3 L, BUN 23 H, Creatinine 1.29 H, Estim Creat Clear Calc 34.97, Est GFR (MDRD) Af Amer 52 L, Est GFR (MDRD) Non-Af 43 L, BUN/Creatinine Ratio 17.8, Glucose 107 H, Calcium 9.6, Troponin I High Sens 29, B-Natriuretic Peptide 367.4 H 01/15/24 17:30: Urine Color Yellow, Urine Clarity Sl. Cloudy, Urine pH 7.0, Ur Specific [place] 1.015, Urine Protein 30 H, Urine Glucose (UA) Normal, Urine Ketones Negative, Urine Occult Blood 50 H, Urine Nitrite Positive H, Urine Bilirubin 1 H, Urine Urobilinogen 8 H, Ur Leukocyte Esterase 500 H, Urine RBC 0 SEEN, Urine WBC 10-25 SEEN, Ur Squamous Epith Cells 0-5 SEEN, Urine Bacteria 2+, Urine Mucus 0 SEEN 01/15/24 18:47: Troponin I High Sens 71 H Imaging Radiology Impression Chest X-Ray 01/15/24 16:55 IMPRESSION: 1. Stable borderline cardiomegaly. 2. No evidence of acute cardiopulmonary process. 3. Partially healed proximal LEFT humeral fracture. Electronically Signed: Capo Monroe MD at 17:16 EDT , Assessment & Plan Assessment/Plan (1) Heart failure with reduced ejection fraction: (2) Elevated troponin: (3) Acute cystitis without hematuria: (4) Dizziness: (5) Nausea and vomiting: QUALIFIERS: Vomiting type: unspecified Qualified Code(s): R11.2 - Nausea with vomiting, unspecified (6) BPPV (benign paroxysmal positional vertigo): QUALIFIERS: Laterality: unspecified laterality Qualified Code(s): H81.10 - Benign paroxysmal vertigo, unspecified ear (7) Severe anxiety: (8) Depression: QUALIFIERS: Depression Type: unspecified Qualified Code(s): F32.A - Depression, unspecified (9) Obesity (BMI 30-39.9): PLAN: Plan 1. AE of chronic systolic CHF; with reduced LVEF evidenced by elevated BNP of 367.4 pg/mL with 4+ bilateral symmetrical lower extremity pitting edema - Admit to PCU. Continue IV Lasix plus give supplemental KCl and magnesium. Check echocardiogram to evaluate LVEF and assess for evidence of clinically suspected Takotsubo's cardiomyopathy. Finally, we will consult public speaking instructor from [facility] to see this patient on-rounds in the AM for further recommendations with help appreciated in advance. 2. Elevated initial troponin of 71 pg/mL followed by a second troponin of 101 pg/mL consistent with suspected acute cardiac strain arising from #1 - Give BASA and statin plus full-dose Lovenox. Check Lexiscan NST in the AM to evaluate for potential underlying ischemia. Serialize troponin. 3. Acute cystitis; without hematuria complicating #1 & #2 - Resume IV Rocephin begun in the ER and await culture and sensitivity data. 4. BPPV; triggering intermittent nausea and vomiting with a history of near syncope compounding #1 - #3 - Give PO Antivert and IV Zofran prn to control symptoms and monitor for improvement. 5. Uncontrolled Anxiety with depression since the of her in November 2022 that acutely worsened recently amplifying the negative impact of #1 - #4 with patient taking care of her grandson since her daughter who used to be an RN got hooked on drugs - Continue home regimen plus give Xanax prn for breakthrough symptoms. 6. Obesity; with BMI of 35 this admission in the setting of previous gastric bypass plus JIMMY - Weight loss will be recommended. Continue CPAP as previous. This adds to the complexity of her case and may hamper recovery. 7. Essential hypertension - Resume home regimen plus give prn IV Hydralazine for systolic blood pressure > 160 mmHg. 8. Hypothyroidism - Continue Synthroid and check TSH. 9. History of tobacco abuse; with subsequent COPD - Stable with no evidence of acute flare. Resume current treatment regimen. 10. History of anemia - Stable with hemoglobin of 12.1 g/dL present on admission. 11. Neuropathy - Stable. 12. History of vitamin D deficiency - Check vitamin D level and continue supplementation. 13. Osteoporosis with history of closed fracture of distal humeral lateral epicondyle, and history of Right tibial plateau fracture - Noted. 14. History of closed traumatic nondisplaced rib fractures - Noted. 15. GERD - Resume Pepcid as previous. 16. OA - Give Tylenol prn. 17. DVT prophylaxis - Patient on full-dose Lovenox for #2. Total time: Approximately 75 minutes. Charges/Coding Visit Charges Inpatient E&M: 01871 Init Hosp L3
--- NOTE | 2024-01-15 21:25 | ED.RN ---
NO MEDICATION LIST AND SHE DOES NOT KNOW HER MEDICATIONS AND DOSE.
--- NOTE | 2024-01-15 21:32 | ECHOCS_ITS ---
Version 2 Reason For Study: CHF Procedure This was a 2D Doppler, Color Flow transthoracic echocardiogram. The study was technically difficult. Exam performed portable in patient room. Left Ventricle Normal LV size. Mild concentric left ventricular hypertrophy. The left ventricular ejection fraction is 20 %. There is severe global hypokinesis of the left ventricle. Right Ventricle Normal RV size. Normal systolic function. Atria Normal left atrium. Normal right atrium. Bubble contrast study negative for right to left interatrial shunt. Mitral Valve Normal mitral valve. Tricuspid Valve Normal tricuspid valve. Mild to moderate (1-2+) tricuspid valve insufficiency. Pulmonary artery systolic pressure is 40 mmHg. Aortic Valve Normal aortic valve. Pulmonic Valve Normal pulmonic valve. Great Vessels Normal aortic root. The pulmonary artery is normal size. Normal inferior vena cava. Pericardium/Pleural No pericardial effusion. Medication Performed a rapid injection of agitated mix of 9 cc saline and 1cc air to assess for atrial septal defect. Diluted definity 3ml given slow IV push to enhance endocardial definition. MMode/2D Measurements & Calculations LVIDd: 4.7 cm IVSd: 1.2 cm LVOT diam: 2.0 cm LVIDs: 4.0 cm LVPWd: 1.2 cm RVDd: 3.3 cm FS: 14.7 % LVOT area: 3.3 cm2 Ao root diam: 2.7 cm LAV(MOD-bp): 87.8 ml LVAd ap4: 42.8 cm2 LAV(MOD-bp) Indexed: 51.4 ml/m2 LVLd ap4: 8.1 cm LAV(MOD-sp2): 108.7 ml EDV(MOD-sp4): 182.0 ml LAV(MOD-sp4): 64.3 ml EDV(sp4-el): 192.5 ml LVAs ap4: 39.4 cm2 LVLs ap4: 8.1 cm ESV(MOD-sp4): 158.0 ml ESV(sp4-el): 162.3 ml EF(MOD-sp4): 13.2 % EF(sp4-el): 15.7 % LVAd ap2: 36.2 cm2 SV(MOD-sp4): 24.1 ml SV(MOD-sp2): 28.8 ml LVLd ap2: 8.3 cm EDV(MOD-sp2): 129.8 ml EDV(sp2-el): 134.0 ml LVAs ap2: 29.9 cm2 LVLs ap2: 7.4 cm ESV(MOD-sp2): 101.0 ml ESV(sp2-el): 102.1 ml EF(MOD-sp2): 22.2 % SV(sp4-el): 30.2 ml LA dimension(2D): 4.4 cm LA A4 area: 21.3 cm2 RA A4 area: 22.7 cm2 TAPSE: 1.4 cm Doppler Measurements & Calculations MV E max ayana: 67.9 cm/sec Ao V2 max: 78.3 cm/sec LV V1 max: 63.4 cm/sec Ao max P.5 mmHg LV V1 max P.6 mmHg Ao V2 mean: 55.7 cm/sec LV V1 mean P.87 mmHg Ao mean P.4 mmHg LV V1 mean: 42.9 cm/sec Ao V2 VTI: 13.0 cm LV V1 VTI: 10.8 cm AV (velocity ratio): 0.83 ADRIEL(I,D): 2.7 cm2 ADRIEL(V,D): 2.6 cm2 SV(LVOT): 35.2 ml PA V2 max: 61.8 cm/sec TR max ayana: 306.6 cm/sec PA max PG (full): 0.01 mmHg TR max P.6 mmHg ECHO/Echo Complete W/ Contrast Interpretation Summary Normal LV size. Mild concentric left ventricular hypertrophy. The left ventricular ejection fraction is 20 %. There is severe global hypokinesis of the left ventricle. Mild to moderate (1-2+) tricuspid valve insufficiency. Bubble contrast study negative for right to left interatrial shunt. Contrast injection was performed. Ordering Physician: Amilcar Mayer Referring Physician: Kei Pineda Performed By: Wilbert Alves and Student
--- NOTE | 2024-01-15 21:32 | EKG12_ITS ---
Test Reason : AM EKG Blood Pressure : / mmHG Vent. Rate : 110 BPM Atrial Rate : 000 BPM P-R Int : 000 ms QRS Dur : 100 ms QT Int : 378 ms P-R-T Axes : 000 -48 235 degrees QTc Int : 511 ms Atypical Flutter with variable AV conduction Left anterior fascicular block Minimal voltage criteria for LVH, may be normal variant ( Alistair product ) Cannot rule out Anterior infarct , age undetermined ST & T wave abnormality, consider lateral ischemia Abnormal ECG When compared with ECG of 15-JAN-2024 23:06, MANUAL COMPARISON REQUIRED, DATA IS UNCONFIRMED Confirmed by Triston Juarez [id number]), video editor JONI BOSS ([id number]) on 01/17/2024 7:30:31 AM Referred By: Confirmed By:Triston Juarez
[2024-01-15 22:47] LABS: Troponin-I HS 101 pg/mL (3.0-54.0)
[2024-01-15] MEDS: Magnesium Chloride 64 MG Delay Rel.Tablet 128 MG PO (23:03)
[2024-01-15] MEDS: Furosemide 40 MG/4 ML Vial IV (23:03)
[2024-01-15] MEDS: buPROPion (SR) 150 MG Tablet.SA PO (23:03)
[2024-01-15] MEDS: Clopidogrel Bisulfate 75 MG Tablet PO (23:03)
[2024-01-15] MEDS: Enoxaparin 80 MG/0.8 ML Syringe SC (23:04)
[2024-01-15] MEDS: 0.9% Saline Lock 10 ML Syringe IV (23:04)
[2024-01-16] VITALS (24 sets, daily range): BP systolic 77–113; BP diastolic 44–82; PULSE 70–112; RESP 14–21; TEMP 35.9–36.9; O2SAT 92–97
[2024-01-16] MEDS: Temazepam 15 MG Capsule PO (02:05)
[2024-01-16] MEDS: MELATONIN 3 MG TABLET 6 MG PO (02:05)
[2024-01-16 05:40] LABS: Hematocrit 36.7 % (37-47); Hemoglobin 11.4 g/dL (12.0-15.0); Mean Corp Hgb Conc 31.1 g/dL (32-36); Mean Corpuscular Hgb 26.1 pg (27.0-32.0); Mean Platelet Vol. 10.5 fl (6.2-12.0); Platelet Count 261 K/mm3 (150-450); RBC Distribution Width CV 15.1 % (11.6-14.6); RBC Distribution Width SD 45.7 fl (35.1-43.9); Red Blood Count 4.37 M/mm3 (4.2-5.4); White Blood Count 6.7 K/mm3 (4.4-11.0)
--- NOTE | 2024-01-16 05:55 | EKG12_ITS ---
Test Reason : CP ADMIT Blood Pressure : / mmHG Vent. Rate : 089 BPM Atrial Rate : 117 BPM P-R Int : 000 ms QRS Dur : 102 ms QT Int : 384 ms P-R-T Axes : 000 -39 179 degrees QTc Int : 467 ms Atrial fibrillation Left axis deviation Cannot rule out Anterior infarct , age undetermined ST & T wave abnormality, consider lateral ischemia Abnormal ECG Confirmed by Triston Juarez ([id number]), continuity editor JONI BOSS ([id number]) on 01/17/2024 7:45:54 AM Referred By: Confirmed By:Triston Juarez
[2024-01-16] MEDS: Clopidogrel Bisulfate 75 MG Tablet PO (06:06)
[2024-01-16] MEDS: Aspirin E.C. 81 MG Tablet PO (06:06)
[2024-01-16 06:27] LABS: AST(SGOT) 18 U/L (15-37); Alanine Aminotransfer ALT/SGPT 13 U/L (13-56); Albumin, Serum 2.9 g/dL (3.2-5.0); Alkaline Phosphatase 111 U/L (45-117); Anion Gap 6 (5-15); BUN 21 mg/dL (7-18); BUN/Creat Ratio 23.6 RATIO (10-20); Calcium,Total 8.9 mg/dL (8.5-10.1); Chloride 106 mmol/L (98-107); Cholesterol 114 mg/dL (200); Creatinine, Serum 0.89 mg/dL (0.55-1.02); EST Glomerular Filtration Rate 66 mL/min (>60); Est Glom Filt Rate - Afr Amer 79 mL/min (>60); Estimated Creatinine Clearance 49.71 ml/min; Glucose 99 mg/dL (74-106); High Density Lipoprotein 31 mg/dL; Potassium 3.2 mmol/L (3.5-5.1); Protein, Total 5.9 g/dL (6.4-8.2); Sodium Level 142 mmol/L (136-145); Thyroid Stim Hormone (TSH) 3.44 uIU/mL (0.358-3.74); Triglycerides 59 mg/dL; Very Low Density Lipoprotein 12 mg/dL (5-40)
[2024-01-16 06:36] LABS: D-Dimer Quantitative (DVT/PE) 0.52 FEU/ug/m (0.27-0.49)
--- NOTE | 2024-01-16 06:42 | PCM.CONS.C ---
Assessment & Plan Assessment/Plan (1) Elevated troponin: PLAN: Patient has an elevated troponin level which may be due to demand ischemia. Cannot completely exclude plaque rupture. I will therefore recommend that we evaluate the above with a coronary angiogram and depending on the findings further recommendations made Addendum: Coronary angiogram performed at 1115am demonstrated no obstructive coronary disease. The elevated troponin is therefore secondary to demand ischemia. (2) Chronic systolic (congestive) heart failure: PLAN: Patient had a known history of a nonischemic cardiomyopathy in 2019 with an estimated ejection fraction of 30%. The patient had not been compliant with medical therapy. Ejection fraction will be reevaluated and will determine therapy. Her natruretic peptide level is elevated. She will be started on a beta-dulce at this time with an ENE inhibitor and diuretic added.Ultimately she may need an SGLT2 inhibitor. (3) Essential hypertension: PLAN: Blood pressure appears to be under good control at this time I will not recommend we make any major changes other than the addition of the beta-dulce. (4) Paroxysmal atrial fibrillation: PLAN: It appears she is in atrial fibrillation which is likely of recent onset. I suspect that this was the etiology of her shortness of breath and palpitations. She does have a [id number] score of at least 3 and she would need to be anticoagulated after her procedure has been completed. HPI Consult Data Date of Consult: 01/16/24 HPI Narrative HPI Narrative: BETH HARTMAN, is a 73 F who presents to the emergency room with complaints of chest discomfort as well as nausea and dizziness.She has a previous history of a nonischemic cardiomyopathy and has been bereaved After her last year.She also says that she has had some palpitations and has had some pedal edema. She has not shown up for her medical appointments in over a year. On presentation to the emergency room she was noted to have bilateral pedal edema and elevated natruretic peptide and cardiac troponin levels which were abnormal. She was admitted for further evaluation and management due to abnormal troponin.She had previously undergone a cardiac catheterization in 2019 and at that time her ejection fraction was noted to be 25% with normal coronary anatomy. Her echocardiogram had demonstrated improvement and normalization of her left ventricular systolic function in 2020 to 55% with no wall motion abnormalities.Her EKG in the emergency room is particularly remarkable for atrial fibrillation with a rapid ventricular response rate which appears to be new. PFSH Medical History Closed fracture of right distal humerus Broken shoulder Essential hypertension Dilated cardiomyopathy Bilateral pleural effusion Osteoporosis GERD (gastroesophageal reflux disease) Obesity Anemia Depression Osteoarthritis Obstructive sleep apnea COPD (chronic obstructive pulmonary disease) Home Medications ?Medication ?Instructions ?Recorded ?Last Taken ?Type calcium carbonate 500 mg-vitamin 1 tab PO BIDCM supplement 05/09/20 10/28/22 History D3 5 mcg (200 unit) tablet paroxetine HCl 30 mg tablet 40 mg PO DAILY depression 05/09/20 10/29/22 History bupropion HCl 150 mg tablet,12 hr 150 mg PO BID mood 11/02/22 Unknown History sustained-release albuterol 90 mcg/actuation aerosol 90 mcg inhalation .four times day 03/26/23 Unknown History inhaler lungs ergocalciferol (vitamin D2) 1,250 50,000 unit PO .every tuesday bones 03/26/23 Unknown History mcg (50,000 unit) capsule famotidine 20 mg tablet (Acid 20 mg PO BID acid reflux 03/26/23 Unknown History Controller) furosemide 40 mg tablet 40 mg PO DAILY water pill 03/26/23 Unknown History triamcinolone acetonide 0.1 % 1 applic topical BID fungal 03/26/23 Unknown History topical cream vitamin B complex 1 tab PO DAILY supp 03/26/23 Unknown History acetaminophen 500 mg tablet 1,000 mg (2 x 500 mg) PO Q6H PRN 04/26/23 Unknown Rx PRN Pain Score 1-5 #0 tabs potassium chloride 20 mEq 20 meq PO DAILY 30 days #30 tabs 04/26/23 Unknown Rx tablet,extended release(part/cryst) (Klor-Con M) Allergy/AdvReac Type Severity Reaction Status Date / Time diclofenac (From Voltaren) Allergy Rash Verified 01/15/24 22:01 hydroxyzine (From Vistaril) AdvReac Intermediate hallucinati Verified 01/15/24 22:01 ons hydrocodone (From Vicodin) AdvReac Other Verified 01/15/24 22:01 Family History Mother Diabetes Heart disease Hypertension Hyperlipidemia Father Diabetes Heart disease Hypertension Hyperlipidemia Surgical History History of left heart catheterization (12/05/18) History of open reduction and internal fixation (ORIF) procedure History of herniorrhaphy History of Hx of cholecystectomy History of tonsillectomy History of gastric bypass History of open reduction and internal fixation (ORIF) procedure Social History household members: family Smoking Status: Former smoker alcohol intake: never substance use type: does not use ROS Constitutional Constitutional: Denies fever(s) or weight loss Eyes Eyes: Reports systems reviewed and no addt'l complaints, except as documented ENT HEENT: Reports systems reviewed and no addt'l complaints, except as documented Cardiovascular Cardiovascular: Reports chest pain at rest, edema and palpitations; Denies chest pain with activity, dyspnea at rest, dyspnea on exertion or paroxysmal nocturnal dyspnea Respiratory/Chest Respiratory/Chest: Denies dyspnea on exertion, productive cough, shortness of breath at rest or shortness of breath with exertion Gastrointestinal Gastrointestinal: Denies change in bowel habits, nausea, vomiting or weight changes Genitourinary Genitourinary: Denies difficulty urinating Musculoskeletal Musculoskeletal: Denies joint stiffness or muscle weakness Integumentary Integumentary: Denies lesions Neurologic Neurologic: Denies dizziness or syncope Psychiatric Psychiatric: Denies anxiety Endocrine Endocrinology: Denies excessive sweating or fatigue Hematologic/Lymphatic Hematologic/Lymphatic: Denies anemia Allergic/Immunologic Allergic/Immunologic: Denies seasonal rhinorrhea Physical Exam Const alert, oriented x3 and no apparent distress General Appearance: cooperative HEENT hearing grossly normal bilaterally Head and Scalp: atraumatic Eyes EOMs intact bilaterally Neck General: normal visual inspection Chest inspection of chest normal and palpation of chest normal Resp normal respiratory effort Auscultation: clear to auscultation bilaterally Cardio S1 normal heart sound and S2 normal heart sound Jugular Venous Distention: JVD Rhythm: abnormal rhythm irregularly irregular GI normal to inspection, nondistended, normoactive bowel sounds Extremity normal capillary refill and no pedal edema Peripheral Pulses: Yes pulses 2+ throughout and femoral pulses present Skin no rashes or lesions noted Neuro oriented x3 and CN's II-XII intact bilaterally Psych Appearance: grossly normal and appropriate Risk Stratification Risk Stratification Applicable: Yes Age >/= 65: Yes >/= 3 CAD Risk Factors (HTN, HLD, DM, family hx of CAD, or current smoker): Yes Aspirin Use in the Past 7 Days: No Severe Angina (>/= episodes in 24 hours): No EKG ST Changes >/= 0.5mm: No Positive Cardiac Marker: Yes WILLIAN Risk Stratification Score: 3 WILLIAN % Risk: 13% Risk Objective Data Vital Signs: Vital Signs Temp Pulse Resp BP Pulse Ox O2 Del Method 96.7 F L 105 H 18 110/68 95 Room Air 01/16/24 06:04 01/16/24 06:04 01/16/24 06:04 01/16/24 06:04 01/16/24 06:04 01/16/24 06:04 Oxygen Delivery Method Room Air Weight: 167 lb 5.294 oz Body Mass Index (BMI) 33.7 Intake & Output: Intake and Output for Last 24 Hours 01/14/24 01/15/24 01/16/24 23:59 23:59 23:59 Intake Total 50 / 50 Balance 50 / 50 Lab / Micro Data 01/16/24 05:05 01/16/24 05:05 Labs: Laboratory Results - last 24 hr 01/15/24 16:40: WBC 5.5, RBC 4.53, Hgb 12.1, Hct 38.7, MCV 85.4, MCH 26.7 L, MCHC 31.3 L, RDW Std Deviation 47.2 H, RDW Coeff of Joe 15.1 H, Plt Count 258, MPV 10.0, Immature Gran % (Auto) 0.200, Neut % (Auto) 62.6, Lymph % (Auto) 29.2, Turner % (Auto) 6.8, Eos % (Auto) 0.5, Baso % (Auto) 0.7, Absolute Neuts (auto) 3.4, Absolute Lymphs (auto) 1.60, Nucleated RBC % 0, Sodium 142, Potassium 3.5, Chloride 104, Carbon Dioxide 35.0 H, Anion Gap 3 L, BUN 23 H, Creatinine 1.29 H, Estim Creat Clear Calc 34.97, Est GFR (MDRD) Af Amer 52 L, Est GFR (MDRD) Non-Af 43 L, BUN/Creatinine Ratio 17.8, Glucose 107 H, Calcium 9.6, Troponin I High Sens 29, B-Natriuretic Peptide 367.4 H 01/15/24 17:30: Urine Color Yellow, Urine Clarity Sl. Cloudy, Urine pH 7.0, Ur Specific [place] 1.015, Urine Protein 30 H, Urine Glucose (UA) Normal, Urine Ketones Negative, Urine Occult Blood 50 H, Urine Nitrite Positive H, Urine Bilirubin 1 H, Urine Urobilinogen 8 H, Ur Leukocyte Esterase 500 H, Urine RBC 0 SEEN, Urine WBC 10-25 SEEN, Ur Squamous Epith Cells 0-5 SEEN, Urine Bacteria 2+, Urine Mucus 0 SEEN 01/15/24 18:47: Troponin I High Sens 71 H 01/15/24 22:20: Troponin I High Sens 101 H 01/16/24 05:05: WBC 6.7, RBC 4.37, Hgb 11.4 L, Hct 36.7 L, MCV 84.0, MCH 26.1 L, MCHC 31.1 L, RDW Std Deviation 45.7 H, RDW Coeff of Joe 15.1 H, Plt Count 261, MPV 10.5, D-Dimer Quant (PE/DVT) 0.52 H*, Sodium 142, Potassium 3.2 L, Chloride 106, Carbon Dioxide 30.0, Anion Gap 6, BUN 21 H, Creatinine 0.89, Estim Creat Clear Calc 49.71, Est GFR (MDRD) Af Amer 79, Est GFR (MDRD) Non-Af 66, BUN/Creatinine Ratio 23.6 H, Glucose 99, Calcium 8.9, Total Bilirubin 0.50, AST 18, ALT 13, Alkaline Phosphatase 111, Total Protein 5.9 L, Albumin 2.9 L, Globulin 3.0, Albumin/Globulin Ratio 1.0, Triglycerides 59, Cholesterol 114, LDL Cholesterol 71, VLDL Cholesterol 12, HDL Cholesterol 31 L, TSH 3.44 Cardiology Labs/Tests 01/15/24 16:40: WBC 5.5, RBC 4.53, Hgb 12.1, Hct 38.7, MCV 85.4, MCH 26.7 L, MCHC 31.3 L, Plt Count 258, MPV 10.0, Immature Gran % (Auto) 0.200, Neut % (Auto) 62.6, Lymph % (Auto) 29.2, Turner % (Auto) 6.8, Eos % (Auto) 0.5, Baso % (Auto) 0.7, Absolute Neuts (auto) 3.4, Nucleated RBC % 0, Sodium 142, Potassium 3.5, Chloride 104, Carbon Dioxide 35.0 H, Anion Gap 3 L, BUN 23 H, Creatinine 1.29 H, Est GFR (MDRD) Af Amer 52 L, Est GFR (MDRD) Non-Af 43 L, BUN/Creatinine Ratio 17.8, Glucose 107 H, Calcium 9.6, B-Natriuretic Peptide 367.4 H 01/15/24 17:30: Urine Color Yellow, Urine Clarity Sl. Cloudy, Urine pH 7.0, Ur Specific [place] 1.015, Urine Protein 30 H, Urine Glucose (UA) Normal, Urine Ketones Negative, Urine Occult Blood 50 H, Urine Nitrite Positive H, Urine Bilirubin 1 H, Urine Urobilinogen 8 H, Ur Leukocyte Esterase 500 H, Urine RBC 0 SEEN, Urine WBC 10-25 SEEN 01/16/24 05:05: WBC 6.7, RBC 4.37, Hgb 11.4 L, Hct 36.7 L, MCV 84.0, MCH 26.1 L, MCHC 31.1 L, Plt Count 261, MPV 10.5, D-Dimer Quant (PE/DVT) 0.52 H*, Sodium 142, Potassium 3.2 L, Chloride 106, Carbon Dioxide 30.0, Anion Gap 6, BUN 21 H, Creatinine 0.89, Est GFR (MDRD) Af Amer 79, Est GFR (MDRD) Non-Af 66, BUN/Creatinine Ratio 23.6 H, Glucose 99, Calcium 8.9, Total Bilirubin 0.50, Triglycerides 59, Cholesterol 114, LDL Cholesterol 71, VLDL Cholesterol 12, HDL Cholesterol 31 L Rhythm: EKG:Atrial fibrillation with rapid ventricular response rate ECHO: Stress Test: Cardiac Cath: PCI: CT Surgery: Holter monitor: EPS: PPM: CXR: Chest CT Scan: Radiography Diagnostic Testing: Radiology Impression Chest X-Ray 01/15/24 16:55 IMPRESSION: 1. Stable borderline cardiomegaly. 2. No evidence of acute cardiopulmonary process. 3. Partially healed proximal LEFT humeral fracture. Electronically Signed: Capo Monroe MD at 17:16 EDT ,
[2024-01-16 07:27] LABS: BNP,B-Type NATRIURETIC PEPTIDE 551.6 pg/mL (0-100)
[2024-01-16] MEDS: Carvedilol 6.25 MG Tablet PO ×2 (08:08→20:53)
[2024-01-16] MEDS: 0.9% Saline Lock 10 ML Syringe IV ×2 (08:10→12:13)
[2024-01-16] MEDS: 0.9% Normal Saline (1000mL) 1,000 ML 15 ML IV (08:10)
[2024-01-16] MEDS: Potassium Chloride Oral Tablet 20 MEQ PO ×2 (08:10→17:44)
--- NOTE | 2024-01-16 08:56 | PN.HOSP_ITS ---
Reason for Visit Reason for Visit: Diagnoses Obesity, unspecified (01/15/24) Depression, unspecified (01/15/24) Anxiety disorder, unspecified (01/15/24) Benign paroxysmal vertigo, unspecified ear (01/15/24) Unspecified systolic (congestive) heart failure (01/15/24) Acute cystitis without hematuria (01/15/24) Nausea with vomiting, unspecified (01/15/24) Dizziness and giddiness (01/15/24) Other specified abnormal findings of blood chemistry (01/15/24) Subjective Subjective Patient is a 73-year-old lady admitted following jaw pain. Was found to have elevated troponin consistent with acute non-STEMI admitted to a monitored bed for further management. Urinalysis obtained on admission was also abnormal subsequently started on ceftriaxone for possible cystitis Objective Data Objective Data Vital Signs: Vital Signs Temp Pulse Resp BP Pulse Ox O2 Del Method 96.7 F L 101 H 18 113/77 94 Room Air 01/16/24 06:04 01/16/24 08:08 01/16/24 08:08 01/16/24 08:08 01/16/24 08:08 01/16/24 08:08 Oxygen Delivery Method Room Air Weight: 75.9 kg Body Mass Index (BMI) 33.7 Intake & Output: Intake and Output for Last 24 Hours 01/14/24 01/15/24 01/16/24 23:59 23:59 23:59 Intake Total 50 / 50 Output Total 2100 / 2100 Balance 50 / 50 -2100 / -2100 Lab / Micro Data 01/16/24 05:05 01/16/24 05:05 Labs: Laboratory Results - last 24 hr 01/15/24 16:40: WBC 5.5, RBC 4.53, Hgb 12.1, Hct 38.7, MCV 85.4, MCH 26.7 L, M CHC 31.3 L, RDW Std Deviation 47.2 H, RDW Coeff of Joe 15.1 H, Plt Count 258, MPV 10.0, Immature Gran % (Auto) 0.200, Neut % (Auto) 62.6, Lymph % (Auto) 29.2, [place] % (Auto) 6.8, Eos % (Auto) 0.5, Baso % (Auto) 0.7, Absolute Neuts (auto) 3.4, Absolute Lymphs (auto) 1.60, Nucleated RBC % 0, Sodium 142, Potassium 3.5, Chloride 104, Carbon Dioxide 35.0 H, Anion Gap 3 L, BUN 23 H, Creatinine 1.29 H, Estim Creat Clear Calc 34.97, Est GFR (MDRD) Af Amer 52 L, Est GFR (MDRD) Non-Af 43 L, BUN/Creatinine Ratio 17.8, Glucose 107 H, Calcium 9.6, Troponin I High Sens 29, B-Natriuretic Peptide 367.4 H 01/15/24 17:30: Urine Color Yellow, Urine Clarity Sl. Cloudy, Urine pH 7.0, Ur Specific [place] 1.015, Urine Protein 30 H, Urine Glucose (UA) Normal, Urine Ketones Negative, Urine Occult Blood 50 H, Urine Nitrite Positive H, Urine Bilirubin 1 H, Urine Urobilinogen 8 H, Ur Leukocyte Esterase 500 H, Urine RBC 0 SEEN, Urine WBC 10-25 SEEN, Ur Squamous Epith Cells 0-5 SEEN, Urine Bacteria 2+, Urine Mucus 0 SEEN 01/15/24 18:47: Troponin I High Sens 71 H 01/15/24 22:20: Troponin I High Sens 101 H 01/16/24 05:05: WBC 6.7, RBC 4.37, Hgb 11.4 L, Hct 36.7 L, MCV 84.0, MCH 26.1 L, MCHC 31.1 L, RDW Std Deviation 45.7 H, RDW Coeff of Joe 15.1 H, Plt Count 261, MPV 10.5, D-Dimer Quant (PE/DVT) 0.52 H*, Sodium 142, Potassium 3.2 L, Chloride 106, Carbon Dioxide 30.0, Anion Gap 6, BUN 21 H, Creatinine 0.89, Estim Creat Clear Calc 49.71, Est GFR (MDRD) Af Amer 79, Est GFR (MDRD) Non-Af 66, B UN/Creatinine Ratio 23.6 H, Glucose 99, Calcium 8.9, Total Bilirubin 0.50, AST 18, ALT 13, Alkaline Phosphatase 111, B-Natriuretic Peptide 551.6 H, Total Protein 5.9 L, Albumin 2.9 L, Globulin 3.0, Albumin/Globulin Ratio 1.0, Triglycerides 59, Cholesterol 114, LDL Cholesterol 71, VLDL Cholesterol 12, HDL Cholesterol 31 L, TSH 3.44 Radiography Diagnostic Testing: Radiology Impression Chest X-Ray 01/15/24 16:55 IMPRESSION: 1. Stable borderline cardiomegaly. 2. No evidence of acute cardiopulmonary process. 3. Partially healed proximal LEFT humeral fracture. Electronically Signed: Capo Monroe MD at 17:16 EDT Reading Location ID and State: [address] [place] [address] Tel , Service support , Physical Exam Narrative GENERAL: cooperative HEENT: Atraumatic; normocephalic EYES; Anicteric, Normal Conjunctiva NECK; supple, normal thyroid, RESPIRATORY: Diminished to auscultation CARDIOVASCULAR: Regular S1 S2, GI: soft, normoactive bowel sounds, : No Renal angle tenderness; EXTREMITIES: No edema, no clubbing, MUSCULOSKELETAL: no muscle wasting NEURO: Awake; no lateralizing signs. SKIN: No Rash PSYCH; Flat affect Resp Resp Narrative: Diminished air entry throughout. GI GI Narrative: Obese. Extremity Extremity Narrative: 3-4+ bilateral lower extremity symmetrical pitting edema. Skin Skin Narrative: Patient has no evidence of jaundice, rash or abscess. Assessment & Plan Assessment/Plan (1) Elevated troponin: (2) Acute cystitis without hematuria: PLAN: Plan Patient is a 73-year-old lady admitted following jaw pain. Was found to have elevated troponin consistent with acute non-STEMI admitted to a monitored bed for further management. Urinalysis obtained on admission was also abnormal subsequently started on ceftriaxone for possible cystitis 1. Jaw pain ? Angina equivalent. Patient was seen in consultation by cardiology. Plan is for patient to undergo subsequent evaluation with left heart catheterization and intervention if needed ? Patient left heart catheterization performed by Dr. Swann did not demonstrate any hemodynamically significant obstructive lesions was however found to have cardiomyopathy 2. Acute on chronic congestive heart failure with with previous preserved ejection fraction now with reduced ejection fraction - Echo from January 2021 demonstrated EF of 60%. Patient had mild bipedal edema and slightly elevated BNP chest x-ray however was not consistent with CHF. Patient did receive Lasix echo ordered for further evaluation. Echo demonstrated significant cardiomyopathy with a EF of 20%. Case discussed with Dr. Ovalle he was of the opinion this was most likely rate driven from patient underlying A- fib/flutter 3. New onset paroxysmal A-fib flutter ? Echo demonstrated cardiomyopathy with ejection fraction of 20%. Patient started on amiodarone in addition to carvedilol and apixaban 4. Acute cystitis ? Patient started on ceftriaxone 5. COPD ? Currently not in exacerbation aerosol treatment as needed 6. Hypokalemia ? Corrected per protocol 7. Anemia - Secondary to chronic disorder monitoring H&H and transfuse if patient becomes symptomatic or hemoglobin falls below 7 8. Depression with anxiety ? Patient is on Paxil as well as bupropion 9. 5. Class I obesity with BMI of 34 ? Complicating care weight loss advised 10. DVT prophylaxis ? Apixaban Time spent in the patient's overall evaluation,decision-making process, review of diagnostic data, adjustment of management, discussion with other providers, nursing nursing and ancillary staff involved in patient's care documentation, 52 Minutes Advance planning; did discuss with the patient and family regarding advanced directives as well as CODE STATUS. Did explain the various scenarios involved ( FULL CODE, DNR CCA, DNR CCA with no intubation, and DNR CC and what each meant) patient elected to remain full code with CPR and intubation if needed. Order was placed. Time spent on discussion 18 minutes. Charges/Coding Multi Select Codes Visit Charges Visit Charges: 16181 [facility] Hospitalists' Procedures Procedures: 12790 Advncd Care Plan 30 Min
--- NOTE | 2024-01-16 09:33 | NURSING ---
Report called to [facility] laboratory sampler
--- NOTE | 2024-01-16 09:47 | CASEMGMT ---
Insurance review for hospitals In-network with?Medicare insurance if transfer is recommended is as follows: [facility], [facility], [facility], [facility], [facility], [facility] ([facility]), [facility], [facility], and . Hailey Edmonds, Discharge Planning Asst.
--- NOTE | 2024-01-16 09:55 | CASEMGMT ---
RN CM Face to Face with patient for initial transition planning/care coordination assessment. RN RITA introduced self and role at [facility]. Patient lying in bed in no distress, alert and oriented. Patient willing to participate in assessment and is able to answer all questions appropriately. Care providers, pharmacy, and demographics verified. PCP: Edwin Specialists: [place] - [employer] Preferred Pharmacy:[facility] [place] Insurance: [employer], [employer] Prescription Benefit: Yes Living Will/HPOA: Denies LNOK: Sister, Nephew Living Arrangements:Lives with grandson with special needs. Pt states I with ADLs, Nephew comes over daily to assist with cooking, cleaning, transportation, grocery shopping. Transportation: Nephew drives pt. DME/HHC: Pt states has shower chair, raised toilet seat, lift chair, grab bars, walker, rollator, wheelchair and pulse ox. Pt previously in TCU, denies Hx of HHC. Patient wishes to discharge home, denies need for home health at this time. Pt states going to [facility] for OT PT and would like to continue. Patient states no further needs or concerns at this time. CM to follow for discharge planning needs that may arise. Disposition Plan: Home with family support and continue OP PT.
--- NOTE | 2024-01-16 10:49 | CASEMGMT ---
As per admitting RN, pt does not have LW/POA, declined further information. KAILASH Moore
--- NOTE | 2024-01-16 11:36 | CL.D_ITS ---
Patient Name: BETH HARTMAN I Study Date: 01/16/2024 Performing: Charlie Ovalle MD Ht: 59 inches 149.86 cm : 1950 Wt: 167.33 lbs 75.9 kg Age: 73 Gender: female BSA: 1.71 PROCEDURE(S) PERFORMED [id number])[facility] CLINICAL PROFILE AND INDICATIONS Indications: Cardiomyopathy Heart Failure: NYHA Class: 3, Newly Diagnosed: Yes, Heart Failure Type: Systolic Stress/Imaging Stress/Image Study Performed: No CAD Presentations: Symptom unlikely to be ischemic. CONCLUSIONS Non obstructive coronary arteries Cardiomyopathy: Dilated Atrial flutter with 2-1 conduction RECOMMENDATIONS Medical treatment and control of arrhythmia and guideline directed medical therapy. DESCRIPTION OF PROCEDURE The patient arrived to the procedure lab. The risks and benefits of the procedure as well as a full description of our services here and current unavailability of surgical backup were fully explained to the patient and/or their significant other prior to the catheterization. The Timeout was completed, verifying the correct patient and procedure. The patient's procedural site was prepped and draped in the usual fashion. Local anesthetic was given subcutaneously to right radial region with Lidocaine 2%. Using a modified Seldinger technique, arterial access was obtained via the right radial artery, a 6Fr sheath was inserted. Left Coronary Artery selective angiography was performed in multiple views using a 5 Fr. 4.0 [place] catheter. Right Coronary Artery selective angiography was then performed in multiple views using a 5 Fr. 4.0 [place] catheter.The arterial sheath was pulled and a TR Band was applied for hemostasis. 10cc air CORONARY ANGIOGRAPHY DOMINANCE: Right Dominant LEFT HEART ASSESSMENT Left Ventricular Ejection Fraction: by Echo 20 % Global Hypokinesis - Severe Depressed Left Ventricular systolic function LEFT MAIN: Angiographically normal LEFT ANTERIOR DESCENDING ARTERY: Angiographically normal CIRCUMFLEX ARTERY: Angiographically normal RIGHT CORONARY ARTERY: Angiographically normal COMPLICATIONS No Complications PROCEDURE MEDICATIONS Fentanyl 50 mcg IV Versed 1 mg IV Oxygen: 2 L/min via nasal cannula Amiodarone 150 mg @ 01/16/2024 11:21:00 Heparin given IA 01/16/2024 11:15:14 Verapamil 2.5mg, Ntg 100mcgs, 3000 units of Heparin given IA 01/16/2024 11:15:14 SUMMARY OF HEMODYNAMIC DATA Time AIR REST ECG 11:04:30 AO 96/66 (77) SA 11:17:31 11:33:22 Signed By Charlie Ovalle MD On 01/16/2024 11:35:38 Signed By Charlie Ovalle MD On 01/16/2024 11:35:16 Charlie Ovalle MD
[2024-01-16] MEDS: Amiodarone 360 MG in Dextrose 5% Viaflo Bag 192.8 ML 33.3 MG CONT INF (11:51)
--- NOTE | 2024-01-16 13:33 | EKG12_ITS ---
Test Reason : Blood Pressure : / mmHG Vent. Rate : 074 BPM Atrial Rate : 074 BPM P-R Int : 154 ms QRS Dur : 102 ms QT Int : 452 ms P-R-T Axes : 046 -39 -75 degrees QTc Int : 501 ms Normal sinus rhythm Left axis deviation Minimal voltage criteria for LVH, may be normal variant ( Alistair product ) T wave abnormality, consider lateral ischemia Prolonged QT Abnormal ECG When compared with ECG of 16-JAN-2024 05:49, MANUAL COMPARISON REQUIRED, DATA IS UNCONFIRMED Confirmed by Triston Juarez ([id number]), editor department JONI BOSS ([id number]) on 01/17/2024 8:07:54 AM Referred By: MARIA TERESA Confirmed By:Triston Juarez
--- NOTE | 2024-01-16 13:48 | NURSING ---
Addendum entered by Shadia See 01/16/24 16:01: Received med list from Dr Pineda's nurse. Per nurse, pt last seen in office 12/22/23. Original Note: Call placed to Dr Pineda's nurse requesting updated med list for pt.
[2024-01-16] MEDS: Famotidine 20 MG Tablet PO (14:48)
[2024-01-16] MEDS: Paroxetine 20 MG Tablet 40 MG PO (14:48)
[2024-01-16] MEDS: Calcium Carb/Vitamin D 1 TABLET Tablet PO ×2 (14:48→17:40)
[2024-01-16] MEDS: Ergocalciferol 1.25 MG (50, 000 UNIT) Capsule PO (14:48)
[2024-01-16] MEDS: Magnesium Chloride 64 MG Delay Rel.Tablet 128 MG PO ×2 (14:48→20:53)
[2024-01-16] MEDS: Vitamin B Comp W-C Capsule 1 CAP PO (14:48)
[2024-01-16] MEDS: buPROPion (SR) 150 MG Tablet.SA PO ×2 (14:48→20:53)
[2024-01-16] MEDS: Amiodarone 360 MG in Dextrose 5% Viaflo Bag 192.8 ML 16.7 MG CONT INF (17:38)
[2024-01-16] MEDS: Gabapentin 100 MG Capsule PO (17:40)
--- NOTE | 2024-01-16 19:52 | CPS ---
Patient refused PAP therapy.
[2024-01-16] MEDS: ALPRAZolam 0.25 MG Tablet 0.125 MG PO (20:52)
[2024-01-16] MEDS: Senna/Docusate Sodium 1 Tablet PO (20:53)
[2024-01-16] MEDS: Ceftriaxone 1 GM/50 ML BAG IV (20:53)
[2024-01-17] VITALS (15 sets, daily range): BP systolic 99–128; BP diastolic 59–72; PULSE 64–79; RESP 18–22; TEMP 35.9–36.7; O2SAT 93–96
[2024-01-17] MEDS: Amiodarone 360 MG in Dextrose 5% Viaflo Bag 192.8 ML 16.7 MG CONT INF (05:38)
[2024-01-17] MEDS: 0.9% Saline Lock 10 ML Syringe IV ×3 (05:39→11:45)
[2024-01-17 06:04] LABS: Absolute Lymphocyte Count 2.25 X10^3/uL (0.83-4.51); Absolute Neutrophil Count 1.9 X10^3/uL (2.0-7.7); Basophil# 0.05 X10^3/uL; Basophil% 1.1 % (0-1); Eosinophil# 0.07 X10^3/uL; Eosinophils% 1.5 % (0-5); Hematocrit 37.1 % (37-47); Hemoglobin 11.8 g/dL (12.0-15.0); Lymphocyte # 2.25 X10^3/ul (0.83-4.51); Lymphocyte % 48.8 % (19-41); Mean Corp Hgb Conc 31.8 g/dL (32-36); Mean Corpuscular Hgb 26.8 pg (27.0-32.0); Mean Corpuscular Volume 84.3 fL (81-99); Mean Platelet Vol. 10.5 fl (6.2-12.0); Monocyte# 0.35 X10^3/uL; Monocyte% 7.6 % (0-10); NRBC Flagged by Analyzer 0 % (0-5); Neutrophil # 1.89 X10^3/uL (2.7-7.7); Platelet Count 256 K/mm3 (150-450); RBC Distribution Width CV 15.2 % (11.6-14.6); RBC Distribution Width SD 46.4 fl (35.1-43.9); White Blood Count 4.6 K/mm3 (4.4-11.0)
[2024-01-17 06:24] LABS: Anion Gap 5 (5-15); BUN 19 mg/dL (7-18); BUN/Creat Ratio 21.5 RATIO (10-20); Calcium,Total 9.1 mg/dL (8.5-10.1); Chloride 105 mmol/L (98-107); Creatinine, Serum 0.88 mg/dL (0.55-1.02); EST Glomerular Filtration Rate 66 mL/min (>60); Est Glom Filt Rate - Afr Amer 80 mL/min (>60); Estimated Creatinine Clearance 50.28 ml/min; Glucose 100 mg/dL (74-106); Magnesium 2.5 mg/dL (1.6-2.6); Phosphorus 3.1 mg/dL (2.5-4.9); Potassium 4.4 mmol/L (3.5-5.1); Sodium Level 138 mmol/L (136-145)
--- NOTE | 2024-01-17 07:44 | PCM.DC.SUM ---
Providers Date of Admission: 01/15/24 Date of Discharge: 01/17/24 Primary Care Physician: Dr. Kei Pineda, DO Consultations 01/15/24 21:32 Consult: Cardiology Routine Consulting Provider: Daniel Estrada Reason for Consult: Chest Pain EMERGENT Consult: No MD Notified: Yes Date Notified: 01/16/24 Time Notified: 06:32 Method of Notification: Verbal Method of Consult:: In-Person Reason For Visit: AE CHF, ELEVATED TROPONIN AND NAUSEA WITH VOMITING Diagnosis Discharge Diagnosis (1) Elevated troponin: Status: Acute Code(s): R79.89 - Other specified abnormal findings of blood chemistry (2) Acute cystitis without hematuria: Status: Acute Code(s): N30.00 - Acute cystitis without hematuria Plan Patient is a 73-year-old lady admitted following jaw pain. Was found to have elevated troponin consistent with acute non-STEMI admitted to a monitored bed for further management. Urinalysis obtained on admission was also abnormal subsequently started on ceftriaxone for possible cystitis 1. Jaw pain ? Angina equivalent. Patient was seen in consultation by cardiology. Plan is for patient to undergo subsequent evaluation with left heart catheterization and intervention if needed ? Patient left heart catheterization performed by Dr. Swann did not demonstrate any hemodynamically significant obstructive lesions was however found to have cardiomyopathy 2. Acute on chronic congestive heart failure with with previous preserved ejection fraction now with reduced ejection fraction - Echo from January 2021 demonstrated EF of 60%. Patient had mild bipedal edema and slightly elevated BNP chest x-ray however was not consistent with CHF. Patient did receive Lasix echo ordered for further evaluation. Echo demonstrated significant cardiomyopathy with a EF of 20%. Case discussed with Dr. Ovalle he was of the opinion this was most likely rate driven from patient underlying A-fib/flutter 3. New onset paroxysmal A-fib flutter ? Echo demonstrated cardiomyopathy with ejection fraction of 20%. Patient started on amiodarone in addition to carvedilol and apixaban 4. Acute cystitis with Klebsiella pneumonia ? Patient started on ceftriaxone -Final urine cultures positive for Klebsiella pneumonia. Patient treated appropriately 5. COPD ? Currently not in exacerbation aerosol treatment as needed 6. Hypokalemia ? Corrected per protocol 7. Anemia - Secondary to chronic disorder monitoring H&H and transfuse if patient becomes symptomatic or hemoglobin falls below 7 8. Depression with anxiety ? Patient is on Paxil as well as bupropion 9. 5. Class I obesity with BMI of 34 ? Complicating care weight loss advised 10. DVT prophylaxis ? Apixaban Time spent in the patient's overall evaluation,decision-making process, review of diagnostic data, adjustment of management, discussion with other providers, nursing nursing and ancillary staff involved in patient's care documentation,35 Minutes Medications at Discharge Home Medications calcium carbonate 500 mg-vitamin D3 5 mcg (200 unit) tablet 1 tab PO BID supplement 05/09/20 paroxetine HCl 30 mg tablet 40 mg PO DAILY depression 05/09/20 bupropion HCl 150 mg tablet,12 hr sustained-release 150 mg PO BID mood 11/02/22 albuterol 90 mcg/actuation aerosol inhaler 90 mcg inhalation .four times day lungs 03/26/23 ergocalciferol (vitamin D2) 1,250 mcg (50,000 unit) capsule 50,000 unit PO .every tuesday bones 03/26/23 famotidine 20 mg tablet (Acid Controller) 20 mg PO BID acid reflux 03/26/23 vitamin B complex 1 tab PO DAILY supp 03/26/23 acetaminophen 500 mg tablet 1,000 mg PO TID pain 01/16/24 calcium citrate 500 mg-vitamin D3 12.5 mcg (500 unit) chewable tablet 1 tab PO DAILY supplement 01/16/24 carbamide peroxide 6.5 % ear drops (Ear Wax Removal Drops) 5 drp RIGHT EAR DAILY ear wax 01/16/24 clotrimazole 1 % topical cream 1 applic topical BID cream 01/16/24 gabapentin 100 mg capsule 100 - 200 mg PO TID pain 01/16/24 ketoconazole 2 % shampoo 1 applic topical DAILY shampoo 01/16/24 ketoconazole 2 % topical cream 1 applic topical BID cream 01/16/24 montelukast 10 mg tablet 10 mg PO DAILY COPD 01/16/24 nystatin 100,000 unit/gram topical powder 1 applic topical BID rash 01/16/24 polyethylene glycol 3350 17 gram/dose oral powder (ClearLax) 17 g PO DAILY bowel movements 01/16/24 polysaccharide iron complex 150 mg iron capsule (Ferrex) 150 mg PO DAILY iron 01/16/24 potassium chloride 20 mEq tablet,extended release(part/cryst) (Klor-Con M) 20 meq PO BID supplement 01/16/24 sennosides 8.6 mg-docusate sodium 50 mg tablet (Senna-S) 1 tab-cap PO BID stool softner 01/16/24 venlafaxine 37.5 mg capsule,extended release 24 hr 37.5 mg PO DAILY mood 01/16/24 amiodarone 200 mg tablet 200 mg PO DAILY 60 days #60 tabs 01/17/24 apixaban 5 mg tablet (Eliquis) 5 mg PO BID 60 days #120 tabs 01/17/24 carvedilol 6.25 mg tablet 6.25 mg PO BID 60 days #120 tabs 01/17/24 cefdinir 300 mg capsule 300 mg PO BID #10 caps 01/17/24 furosemide 40 mg tablet 40 mg PO DAILY water pill 60 days #60 tabs 01/17/24 losartan 25 mg tablet 25 mg PO DAILY #60 tabs 01/17/24 magnesium chloride 64 mg (magnesium chloride) tablet,delayed release (Mag 64) 128 mg (2 x 64 mg) PO BID 30 days #120 tabs 01/17/24 Physical Exam Narrative GENERAL: cooperative HEENT: Atraumatic; normocephalic EYES; Anicteric, Normal Conjunctiva NECK; supple, normal thyroid, RESPIRATORY: Diminished to auscultation CARDIOVASCULAR: Regular S1 S2, GI: soft, normoactive bowel sounds, : No Renal angle tenderness; EXTREMITIES: No edema, no clubbing, MUSCULOSKELETAL: no muscle wasting NEURO: Awake; no lateralizing signs. SKIN: No Rash PSYCH; Flat affect Weight / BMI Weight Weight: 75.9 kg Body Mass Index (BMI) 33.7 ABG / Lab / Microbiology Data 01/17/24 05:17 01/17/24 05:17 Laboratory: Laboratory Results - last 24 hr 01/17/24 05:17: WBC 4.6, RBC 4.40, Hgb 11.8 L, Hct 37.1, MCV 84.3, MCH 26.8 L, MCHC 31.8 L, RDW Std Deviation 46.4 H, RDW Coeff of Joe 15.2 H, Plt Count 256, MPV 10.5, Immature Gran % (Auto) 0.000, Neut % (Auto) 41.0 L, Lymph % (Auto) 48.8 H, [place] % (Auto) 7.6, Eos % (Auto) 1.5, Baso % (Auto) 1.1 H, Absolute Neuts (auto) 1.9 L, Absolute Lymphs (auto) 2.25, Nucleated RBC % 0, Sodium 138, Potassium 4.4, Chloride 105, Carbon Dioxide 28.0, Anion Gap 5, BUN 19 H, Creatinine 0.88, Estim Creat Clear Calc 50.28, Est GFR (MDRD) Af Amer 80, Est GFR (MDRD) Non-Af 66, BUN/Creatinine Ratio 21.5 H, Glucose 100, Calcium 9.1, Phosphorus 3.1, Magnesium 2.5 Microbiology: Microbiology 01/15/24 17:30 Urine, Clean Catch Urine Culture - Final Klebsiella pneumoniae sp pneum Radiography Diagnostic Testing: Radiology Impression Echocardiogram 01/15/24 21:32 Interpretation Summary Normal LV size. Mild concentric left ventricular hypertrophy. The left ventricular ejection fraction is 20 %. There is severe global hypokinesis of the left ventricle. Mild to moderate (1-2+) tricuspid valve insufficiency. Bubble contrast study negative for right to left interatrial shunt. Contrast injection was performed. Ordering Physician: Amilcar Mayer Referring Physician: Kei Pineda Performed By: Wilbert Alves and Student D/C Instructions Discharge Diet: 8 Cup Fluid Restriction and 2000 mg Sodium Diet Discharge Activity: Return to Normal Activity Call your doctor if you observe: Fever of 101 or Higher, Shortness of breath, Fainting spells and Chest pain Meaningful Use Info Meaningful Use Meaningful Use Diagnoses (Choose all that apply): CHF CHF ENE/ARB ordered at discharge?: Yes Documented LVEF (%): 20 Ischemic Stroke Statin Dosing Therapy Reference: STATIN DOSE THERAPY REFERENCE: * Patients > 75 years receive moderate or high dose statin therapy. * Patients 75 years or YOUNGER should receive HIGH intensity statin dose unless contraindicated. You will be required to document reason for non-treatment if statin daily dose does not meet guidelines. HIGH DOSE STATIN THERAPY DAILY Atorvastatin > than or = to 40 mg Rosuvastatin > than or = to 20 mg Amlodipine + Atorvastatin > than or = to 2.5/40 mg Ezetimibe + Simvastatin 10/80 mg Simvastatin 80mg Discharge Plan Admission Admit Date/Time: 01/15/24 20:27 Attending Provider: Amilcar Pisano Primary Care Provider: Kei Pineda Consulting Providers: Marylou [place]; Andreia Chong; Pankaj Keith; Jon Worrell; Charlie Ovalle; Nilton Hurd; Sumeet Adams; Triston Juarez; Adeline Benavidez; Donald Stack; Mc Boland APARTMENT LEASING AGENT; Marylou Lambert NP; Jayne To; Amilcar Mayer Discharge Orders/Prescriptions Prescriptions: New carvedilol 6.25 mg Tablet 6.25 mg PO BID 60 Days Qty: 120 0RF amiodarone 200 mg Tablet 200 mg PO DAILY 60 Days Qty: 60 0RF Eliquis 5 mg Tablet 5 mg PO BID 60 Days Qty: 120 0RF magnesium chloride [Mag 64] 64 mg Tablet,Delayed Release (Dr/Ec) 128 mg PO BID 30 Days Qty: 120 0RF losartan 25 mg tablet 25 mg PO DAILY Qty: 60 0RF cefdinir 300 mg capsule 300 mg PO BID Qty: 10 0RF Continued paroxetine HCl 30 MG tablet 40 mg PO DAILY calcium carbonate-vitamin D3 1 TABLET tablet 1 tab PO BID bupropion HCl 150 mg tablet sustained-release 12 hr 150 mg PO BID albuterol 90 mcg/actuation aerosol 90 mcg inhalation .four times day Rx Instructions: 2 puffs ergocalciferol (vitamin D2) 1,250 mcg (50,000 unit) capsule 50,000 unit PO .every tuesday Patient Comments: Take 1 capsule by mouth one time a week. vitamin B complex Tablet 1 tab PO DAILY famotidine [Acid Controller] 20 mg tablet 20 mg PO BID calcium citrate-vitamin D3 500 mg-12.5 mcg (500 unit) tablet,chewable 1 tab PO DAILY Ear Wax Removal Drops 6.5 % drops 5 drp RIGHT EAR DAILY gabapentin 100 mg capsule 100 - 200 mg PO TID clotrimazole 1 % cream 1 applic topical BID polysaccharide iron complex [Ferrex 150] 150 mg iron capsule 150 mg PO DAILY acetaminophen 500 mg Tablet 1,000 mg PO TID ketoconazole 2 % shampoo 1 applic topical DAILY ketoconazole 2 % cream 1 applic topical BID montelukast 10 mg tablet 10 mg PO DAILY Patient Comments: Takes at bedtime potassium chloride [Klor-Con M20] 20 mEq Tablet,Er Particles/Crystals 20 meq PO BID venlafaxine 37.5 mg capsule,extended release 24hr 37.5 mg PO DAILY sennosides-docusate sodium [Senna-S] 8.6-50 mg tablet 1 tab-cap PO BID polyethylene glycol 3350 [ClearLax] 17 gram/dose powder 17 g PO DAILY nystatin 100,000 unit/gram powder 1 applic topical BID furosemide 40 mg tablet 40 mg PO DAILY 60 Days Qty: 60 0RF Discontinued carvedilol [Coreg] 12.5 mg tablet 12.5 mg PO BID Rx Instructions: must administer with a meal/food Referrals / Follow Up: Charlie Ovalle MD [Med Staff - Active Staff] - Within 1 Month Kei Pineda DO [Primary Care Provider] - Within 1 Week Disposition Disposition (needs filled in before D/C Order can be placed): Home, Self Care Charges/Coding Visit Charges Inpatient E&M: 69000 Disch Hosp >30min
[2024-01-17] MEDS: Calcium Carb/Vitamin D 1 TABLET Tablet PO (07:55)
[2024-01-17] MEDS: Magnesium Chloride 64 MG Delay Rel.Tablet 128 MG PO (07:55)
[2024-01-17] MEDS: Potassium Chloride Oral Tablet 20 MEQ PO (07:55)
[2024-01-17] MEDS: Gabapentin 100 MG Capsule PO ×2 (07:55→11:45)
[2024-01-17] MEDS: Montelukast 10 MG Tablet PO (07:55)
[2024-01-17] MEDS: Iron Polysaccharide Complex 150 MG CAPSULE PO (07:55)
[2024-01-17] MEDS: Famotidine 20 MG Tablet PO (07:55)
[2024-01-17] MEDS: Senna/Docusate Sodium 1 Tablet PO (07:55)
[2024-01-17] MEDS: Venlafaxine XR 37.5 MG Capsule PO (08:02)
[2024-01-17] MEDS: Carvedilol 6.25 MG Tablet PO (08:02)
[2024-01-17] MEDS: Vitamin B Comp W-C Capsule 1 CAP PO (10:49)
[2024-01-17] MEDS: Furosemide 40 MG/4 ML Vial IV (10:49)
[2024-01-17] MEDS: APIXABAN 5 MG TABLET PO (10:49)
[2024-01-17] MEDS: Amiodarone 200 MG Tablet PO (10:49)
[2024-01-17] MEDS: buPROPion (SR) 150 MG Tablet.SA PO (10:49)
--- NOTE | 2024-01-17 11:09 | PHA.DC_ITS ---
Pharmacy [facility] has performed discharge medication reconciliation and counseling for this patient. 1. AMIODARONE 200MG PO DAILY 2. APIXABAN 5MG PO BID 3. CEFDINIR 300MG PO BID 4. LOSARTAN 25MG PO DAILY 5. MAGNESIUM CHLORIDE 128MG PO BID 6. CARVEDILOL DECREASED TO 6.25MG The patient's discharge medication list was reviewed for discrepancies and discrepancies were resolved. The patient was counseled on the following discharge medications and changes in medications for homegoing were reviewed. The Reason for Use, instructions for use, and potential side effects were reviewed for all new medications. The patient's questions regarding all of their medications were answered. The patient was able to verbally demonstrate an understanding of their discharge medications. Patient counseled by pharmacy technology instructor Medications at Discharge Home Medications calcium carbonate 500 mg-vitamin D3 5 mcg (200 unit) tablet 1 tab PO BID supplement 05/09/20 paroxetine HCl 30 mg tablet 40 mg PO DAILY depression 05/09/20 bupropion HCl 150 mg tablet,12 hr sustained-release 150 mg PO BID mood 11/02/22 albuterol 90 mcg/actuation aerosol inhaler 90 mcg inhalation .four times day lungs 03/26/23 ergocalciferol (vitamin D2) 1,250 mcg (50,000 unit) capsule 50,000 unit PO .every tuesday bones 03/26/23 famotidine 20 mg tablet (Acid Controller) 20 mg PO BID acid reflux 03/26/23 vitamin B complex 1 tab PO DAILY supp 03/26/23 acetaminophen 500 mg tablet 1,000 mg PO TID pain 01/16/24 calcium citrate 500 mg-vitamin D3 12.5 mcg (500 unit) chewable tablet 1 tab PO DAILY supplement 01/16/24 carbamide peroxide 6.5 % ear drops (Ear Wax Removal Drops) 5 drp RIGHT EAR DAILY ear wax 01/16/24 clotrimazole 1 % topical cream 1 applic topical BID cream 01/16/24 gabapentin 100 mg capsule 100 - 200 mg PO TID pain 01/16/24 ketoconazole 2 % shampoo 1 applic topical DAILY shampoo 01/16/24 ketoconazole 2 % topical cream 1 applic topical BID cream 01/16/24 montelukast 10 mg tablet 10 mg PO DAILY COPD 01/16/24 nystatin 100,000 unit/gram topical powder 1 applic topical BID rash 01/16/24 polyethylene glycol 3350 17 gram/dose oral powder (ClearLax) 17 g PO DAILY bowel movements 01/16/24 polysaccharide iron complex 150 mg iron capsule (Ferrex) 150 mg PO DAILY iron 01/16/24 potassium chloride 20 mEq tablet,extended release(part/cryst) (Klor-Con M) 20 meq PO BID supplement 01/16/24 sennosides 8.6 mg-docusate sodium 50 mg tablet (Senna-S) 1 tab-cap PO BID stool softner 01/16/24 venlafaxine 37.5 mg capsule,extended release 24 hr 37.5 mg PO DAILY mood 01/16/24 amiodarone 200 mg tablet 200 mg PO DAILY 60 days #60 tabs 01/17/24 apixaban 5 mg tablet (Eliquis) 5 mg PO BID 60 days #120 tabs 01/17/24 carvedilol 6.25 mg tablet 6.25 mg PO BID 60 days #120 tabs 01/17/24 cefdinir 300 mg capsule 300 mg PO BID #10 caps 01/17/24 furosemide 40 mg tablet 40 mg PO DAILY water pill 60 days #60 tabs 01/17/24 losartan 25 mg tablet 25 mg PO DAILY #60 tabs 01/17/24 magnesium chloride 64 mg (magnesium chloride) tablet,delayed release (Mag 64) 128 mg (2 x 64 mg) PO BID 30 days #120 tabs 01/17/24
--- NOTE | 2024-01-17 12:06 | CASEMGMT ---
Pt has order for DC, discharging on Eliquis LAMONT SALINAS called [facility] retail pharmacy, co-pay is $519, savings card applied. LAMONT SALINAS reviewed progress with therapy and recommended continued OP therapy. LAMONT SALINAS in to discuss DC with pt. LAMONT SALINAS updated pt regarding cost of Eliquis and savings card applied. Encouraged to reach out to cardiology if continued cost is too much and to discuss other options. Pt denied further needs or help at DC. Pt has no further questions or concerns.
[2024-01-18 12:09] LABS: Vitamin D 1,25-Dihydroxy 71.4 pg/mL (24.8-81.5)
== END 2024-01-17 14:15 | disposition home or self-care (01) | DRG 286 ==
LOC: ED 21:03 → PCU 22:43
PROVIDERS: Admitting Provider Internal Medicine; Emergency Provider Emergency Medicine; PCP Student in an Organized Health Care Education/Training Program; Visit Provider Internal Medicine
DX: I11.0 Hypertensive heart disease with heart failure (principal); I50.23 Acute on chronic systolic (congestive) heart failure; I48.92 Unspecified atrial flutter; N30.00 Acute cystitis without hematuria; D63.8 Anemia in other chronic diseases classified elsewhere; I42.0 Dilated cardiomyopathy; I48.0 Paroxysmal atrial fibrillation; G62.9 Polyneuropathy, unspecified; J44.9 Chronic obstructive pulmonary disease, unspecified; E03.9 Hypothyroidism, unspecified; F32.A Depression, unspecified; F41.9 Anxiety disorder, unspecified; K21.9 Gastro-esophageal reflux disease without esophagitis; E87.6 Hypokalemia; H81.10 Benign paroxysmal vertigo, unspecified ear; Z68.35 Body mass index [BMI] 35.0-35.9, adult; I20.89 Other forms of angina pectoris; B96.1 Klebsiella pneumoniae [K. pneumoniae] as the cause of diseases classified elsewhere; M81.0 Age-related osteoporosis without current pathological fracture; E66.9 Obesity, unspecified; Z79.01 Long term (current) use of anticoagulants; Z79.890 Hormone replacement therapy; Z79.899 Other long term (current) drug therapy; Z87.891 Personal history of nicotine dependence; Z63.4 Disappearance and death of family member
CPT/HCPCS: 36415; 71045; 80048; 80053; 80061; 81001; 82652; 83735; 83880; 84100; 84443; 84484; 85025; 85027; 85379; 87077; 87086; 87088; 87186; 93005; 93306; 93454; 97161; 97166; 97802; 99152; 99285; J7030; J7050; Q9957; Q9967; A4216; C1769; C1894; C8929; J1940

== ENCOUNTER 2024-03-09 08:36 | Outpatient (RCR) | payer MEDICARE, OTHER, SELFPAY ==
[2024-02-11 15:16] LABS: INR Fingerstick 1.1; Prothrombin Time Fingerstick 12.6 SEC (11.7-14.9)
[2024-02-20 10:16] LABS: INR Fingerstick 1.4; Prothrombin Time Fingerstick 15.6 SEC (11.7-14.9)
[2024-02-27 10:07] LABS: INR Fingerstick 1.2; Prothrombin Time Fingerstick 13.4 SEC (11.7-14.9)
[2024-03-09 08:47] LABS: INR Fingerstick 1.1; Prothrombin Time Fingerstick 12.6 SEC (11.7-14.9)
[2024-03-19 15:30] LABS: Prothrombin Time Fingerstick 11.7 SEC (11.7-14.9)
== END 2024-03-09 18:00 | disposition home or self-care (01) ==
LOC: MTLAB 08:36
PROVIDERS: PCP Student in an Organized Health Care Education/Training Program; Referring Provider Physician Assistant Medical; Visit Provider Physician Assistant Medical
DX: I48.0 Paroxysmal atrial fibrillation (principal); Z79.01 Long term (current) use of anticoagulants
CPT/HCPCS: 36416; 85610

== ENCOUNTER 2024-03-19 09:37 | Outpatient (RCR) | payer MEDICARE, OTHER, SELFPAY ==
[2024-03-13 12:57] LABS: INR Fingerstick 1.3; Prothrombin Time Fingerstick 13.9 SEC (11.7-14.9)
[2024-03-19 09:47] LABS: INR Fingerstick 1.1; Prothrombin Time Fingerstick 12.6 SEC (11.7-14.9)
== END 2024-03-19 18:00 | disposition home or self-care (01) ==
LOC: MTLAB 09:37
PROVIDERS: PCP Student in an Organized Health Care Education/Training Program; Referring Provider Physician Assistant Medical; Visit Provider Physician Assistant Medical
DX: I48.0 Paroxysmal atrial fibrillation (principal); Z79.01 Long term (current) use of anticoagulants; Z92.29 Personal history of other drug therapy
CPT/HCPCS: 36416; 85610

== ENCOUNTER → 2024-05-07 | Outpatient (CLI) | payer MEDICARE, OTHER, SELFPAY ==
--- NOTE | 2024-05-07 14:05 | CT_ITS ---
STUDY: CT SOFT TISSUE NECK WITH CONTRAST REASON FOR EXAM: Female, 74 years old. NECK PAIN,MASS RADIATION DOSAGE (If Supplied By Facility): CTDIvol = ( 17.55 ) mGy, DLP = ( 552.35 ) mGycm TECHNIQUE: The patient was scanned in a multi-detector CT scanner. High resolution transaxial imaging was performed following intravenous administration of IV 100mL Isovue-300. Sagittal and coronal images were reconstructed. Individualized dose optimization techniques were used for this CT. COMPARISON: None. FINDINGS: Normal bilateral parotid glands. Normal bilateral sales representative business courses spaces. Normal bilateral parapharyngeal spaces. Normal bilateral carotid spaces. Normal bilateral sublingual and submandibular glands and spaces. Normal visualized nasopharynx. Normal retropharyngeal space. Normal perivertebral space. Normal visualized bilateral faucial tonsils. The visualized tongue, tongue base and oropharynx are normal. The visualized cervical lymph nodes (levels I-) are within normal size limits, and maintain normal morphology. There is no demonstrated solid or cystic mass lesion. There is no abnormal contrast enhancement. Normal epiglottis, bilateral vallecula and hypopharynx. The pre-epiglottic and paraglottic adipose spaces are normal. Normal visualized bilateral piriform sinuses, aryepiglottic folds, vocal cords, and arytenoid-cricoid articulations. Normal subglottic trachea. Normal bilateral lobes of the thyroid gland. Normal visualized pulmonary apices. There is a 1 cm polyp or retention cyst at the base of the left maxillary sinus. There is multilevel degenerative changes of the cervical spine. CT/Soft Tissue Neck WITH Contrast IMPRESSION: 1 cm polyp or retention cyst at the base of the left maxillary sinus. Electronically Signed: Greyson Pyle MD at 13:31 EDT ,
[2024-05-07 14:39] LABS: CREATININE FINGERSTICK 1.1 mg/dL (0.55-1.02)
--- OUTSIDE RECORDS SUMMARY | 2024-05-07 18:09 | XMS RPT_ITS | CCD ---
Author Organization [facility] Care Team Providers Care Poem Writer Name Role Phone Logan Portillo MD Unavailable Kei Pineda DO Primary Care Provider [phone] KEI PINEDA Primary Care Unavailable JOSE TA Attending Unavailable KEI PINEDA Primary Care Unavailable PINEDAKEI OMALLEY Primary Care Unavailable LIZZIE MEIER Referring Unavailable KEI PINEDA Attending Unavailable KEI PINEDA Primary Care Unavailable KEI PINEDA Referring Unavailable KEI PINEDA Primary Care Unavailable LIZZIE MEIER Referring Unavailable PINEDAKEI OMALLEY Primary Care Unavailable LIZZIE MEIER Attending Unavailable PINEDAKEI OMALLEY Primary Care Unavailable LIZZIE MEIER Attending Unavailable KEI PINEDA Primary Care Unavailable GERARDO MILLIGAN Attending Unavailable PINEDAKEI OMALLEY Primary Care Unavailable NANCY GARIBAY Referring Unavailable KEI PINEDA Primary Care Unavailable Logan Portillo MD Unavailable [phone] Kei Pineda DO Primary Care Provider BOLA DOBSON Attending Unavailable KEI PINEDA Primary Care Unavailable PINEDA, KEI Jeff Primary Care Unavailable BOLA DOBSON Attending Unavailable KEI PINEDA Primary Care Unavailable BOLA DOBSON Attending Unavailable Allergies Allergy Classification Reported Allergen(s) Allergy Type Date of Onset Reaction(s) Facility (20 sources) Dexamethasone; Translations: [DEXAMETHASONE] Drug Allergy 5 Intolerance [facility] (20 sources) Doxepin; Translations: [DOXEPIN] Drug Allergy 8 Intolerance [facility] (20 sources) Ibandronate; Translations: [IBANDRONATE] Drug Allergy 06-11-201 3 GI Upset [facility] Work Phone: (7 sources) Non-steroidal anti-inflammator y agent; Translations: [NSAIDS (NON-STEROIDAL ANTI-INFLAMMATOR Y DRUG)] Drug Intolerance 5 Intolerance [facility] (20 sources) Non-steroidal anti-inflammator y agent Drug Intolerance 5 Intolerance [facility] Medications Current Medications Medication Drug Class(es) Dates Sig (Normalized) Sig (Original) acetaminophen 1000 mg oral tablet (20 sources) take 1000 mg by mouth three times daily acetaminophen (TYLENOL 8 HOUR ORAL) Take 1,000 mg by mouth three times daily. Active Comment on above: Take 1,000 mg by azar th three times daily. 200 actuat albuterol 0.09 mg/actuat metered dose inhaler (20 sources) beta2-Adrenergic Agonist Start: 05-06-2011 take 2 puff(s) by inhalation four times daily albuterol 90 mcg/Actuation INHALATION Aero Inhale 2 Puffs as instructed four times daily. USE DIRECTED 3 Inhaler 3 05/06/2011 Active Comment on above: Inhale 2 Puffs as in structed four times daily. USE DIRECTED amoxicillin 875 mg oral tablet (2 sources) Penicillin-class Antibacterial Start: 11-15-2023 End: 11-25-2023 take 1 tablet by mouth twice daily amoxicillin (AMOXIL) 875 mg tablet Indications: Acute otitis media, left Take 1 tablet by mouth two times a day for 10 days. 20 tablet 0 11/15/2023 11/25/2023 Active apixaban 5 mg oral tablet (3 sources) Factor Xa Inhibitor take 1 tablet by mouth twice daily apixaban (ELIQUIS) 5 mg tab(s) Take 5 mg by mouth two times a day. Active azithromycin 250 mg oral tablet (4 sources) Macrolide Antimicrobial Start: 04-28-2022 End: 05-03-2022 azithromycin (ZITHROMAX Z-LENIN) 250 mg tablet Indications: Acute cough , Sore throat Take 2 tablets day one, then, 1 tablet daily until gone. 6 tablet 0 04/28/2022 05/03/2022 Active Start: 07-23-2021 End: 07-28-2021 azithromycin (ZITHROMAX Z-PA K) 250 mg tablet Take 2 tablets day one, then, 1 tablet daily until gone. 6 tablet 0 07/23/2021 07/28/2021 Comment on above: Take 2 tablets day o ne, then, 1 tablet daily until gone. 12 hr buPROPion hydrochloride 150 mg extended release oral tablet (20 sources) Aminoketone Start: 3 End: 4 take 2 tablets by mouth every twelve hours in the morning, then take 1 tablet by mouth in the evening buPROPion SR (WELLBUTRIN SR) 150 mg 12 hr tablet Indications: Bipolar 2 disorder, major depressive episode (HCC) Take 2 tablets PO in the AM and 1 tablet PO in the PM 90 tablet 3 12/22/2023 Active Start: 05-14-2019 End: 07-20-2022 take 1 tablet by mouth twice daily buPROPion SR (ZYBAN SR; WELLBUTRIN SR) 150 mg 12 hr tablet Indications: Bipolar 2 disorder, major depressive episode (HCC) Take 1 tablet by mouth twice daily. 60 tablet 3 01/27/2021 08/10/2021 Discontinued Comment on above: Take 1 tablet by azar twice daily. Take 2 tablets PO in the AM and 1 tablet PO in the PM calcium carbonate 1250 mg / cholecalciferol 200 unt oral tablet (20 sources) Vitamin D Start: 09-04-19 16 [id number] tamin D3 500 mg(1,250mg) -200 unit per tablet TWICE DAILY WITH MEALS 09/04/2015 Active Comment on above: TWICE DAILY WITH ANTHONY LS calcium citrate 2380 mg / cholecalciferol 0.01 mg chewable tablet (20 sources) Vitamin D Start: 12-20-19 13 take 1 tablet by mouth once daily at mealtime Calcium Citrate-Vitamin D3 500 mg calcium -400 unit Chew Indications: Personal history of gastric bypass Take 1 Each by mouth daily with food. 30 tablet 11 12/19/2012 Active Comment on above: Take 1 Each by mouth daily with food. carbamide peroxide 65 mg/ml otic solution (13 sources) Start: 11-15-19 24 carbamide peroxide (DEBROX) 6.5 % otic solution Indications: Impacted cerumen of right ear Use 5 Drops in the right ear once daily. 15 mL 2 11/15/2023 Active clotrimazole 10 mg/ml topical cream (3 sources) Azole Antifungal Start: 12-19-19 End: 01-18-20 clotrimazole (LOTRIMIN) 1 % cream Apply to affected area two times a day. 45 g 1 12/19/2023 01/18/2024 Active codeine phosphate 2 mg/ml / guaiFENesin 20 mg/ml oral solution (3 sources) Opioid Agonist Start: 04-28-20 End: 05-05-20 take 5 mL by mouth three times daily as needed codeine-guaiFENesin (GUAIFENESIN AC) 10-100 mg/5 mL syrup Indications: Acute cough , Sore throat Take 5 mL by mouth three times daily as needed for up to 7 days. 118 mL 0 04/28/2022 05/05/2022 Active Comment on above: Take 5 mL by mouth t hree times daily as needed for up to 7 days. COMPOUNDED PRESCRIPTION (20 sources) Start: 10-07-19 16 COMPOUNDED PRESCRIPTION Indications: Edema of both legs , Fracture of left hip requiring operative repair, closed, initial encounter (HCC) Jobst stocking knee high with zipper 20-30 mmHg Dx:R60.0, S72.002A 1 Each 0 10/07/2015 Suspended Start: 10-07-2015 COMPOUNDED PRE SCRIPTION Indications: Edema of both legs , Fracture of left hip requiring operative repair, closed, initial encounter (HCC) Jobst stocking knee high with zipper 20-30 mmHg Dx:R60.0, S72.002A 1 Each 0 10/07/2015 Active Comment on above: Jobst stocking knee high with zipper 20-30 mmHg Dx:R60.0, S72.002A famotidine 20 mg oral tablet (20 sources) Histamine-2 Receptor Antagonist Start: 06-17-20 End: 04-05-20 24 take 1 tablet by mouth twice daily famotidine (PEPCID) 20 mg tablet Indications: Gastroesophageal reflux disease without esophagitis Take 1 tablet by mouth two times a day. 60 tablet 3 04/06/2024 Active Comment on above: Take 1 tablet by azar th twice daily. furosemide 40 mg oral tablet (20 sources) Loop Diuretic Start: 04-21-20 19 take 1 tablet by mouth once daily furosemide (LASIX) 40 mg tablet Take 40 mg by mouth once daily. 5 04/21/2019 Active Comment on above: Take 40 mg by mouth once daily. gabapentin 300 mg oral capsule (20 sources) Anti-epileptic Agent Start: 11-22-19 End: 12-22-19 take 3 capsules by mouth three times daily gabapentin (NEURONTIN) 100 mg capsule Indications: Closed nondisplaced fracture of surgical neck of left humerus with routine healing, unspecified fracture morphology, subsequent encounter , Chronic left shoulder pain Take 1-2 capsules by mouth three times a day for 30 days. (Add to 300 mg capsule three times a day) 180 capsule 1 11/22/2023 Active Start: 11-22-2023 End: 02-20-2024 take 1 capsule by mouth three times daily gabapentin (NEURONTIN) 300 mg capsule Take 1 capsule by mouth three times a day for 90 days. 270 capsule 1 11/22/2023 Active Start: 09-20-2022 End: 10-20-2022 take 3 capsules by mouth three times daily gabapentin (NEURONTIN) 100 mg capsule Indications: Closed nondisplaced fracture of surgical neck of left humerus with routine healing, unspecified fracture morphology, subsequent encounter , Chronic left shoulder pain Take 1-2 capsules by mouth three times daily for 30 days. (Add to 300 mg capsule three times a day) 180 capsule 1 09/20/2022 Suspended Start: 01-06-2022 End: 12-19-2022 take 1 capsule by mouth three times daily gabapentin (NEURONTIN) 300 mg capsule Take 1 capsule by mouth three times daily for 90 days. 270 capsule 1 01/06/2022 07/20/2022 Discontinued Start: 04-29-2021 End: 11-09-2021 take 1 capsule by mouth three times daily gabapentin (NEURONTIN) 300 mg capsule Take 1 capsule by mouth three times daily for 30 days. 90 capsule 04/29/2021 08/26/2021 Discontinued Start: 05-13-2016 End: 01-14-2021 take 1 capsule by mouth three times daily gabapentin (NEURONTIN) 300 mg capsule Take 1 capsule by mouth three times daily. 90 capsule 5 05/13/2016 01/14/2021 Discontinued Comment on above: Take 1 capsule by mo uth three times daily for 30 days. Take 1 capsule by mo uth three times daily for 90 days. Take 1-2 capsules by mouth three times daily for 30 days. (Add to 300 mg capsule three times a day) ketoconazole 20 mg/ml medicated shampoo (20 sources) Azole Antifungal Start: 11-15-2023 ketoconazole (NIZORAL) 2 % shampoo Indications: Scalp psoriasis Apply to affected area once daily as needed. 120 mL 1 11/15/2023 Active Start: 11-15-2023 ketoconazole ( NIZORAL) 2 % cream Indications: Psoriasis APPLY TO THE AFFECTED AREA(S) at 600am and 1000pm 60 g 1 11/15/2023 Active Start: 07-08-2020 End: 11-15-2023 ketoconazole (NIZORAL) 2 % c ream APPLY TO THE AFFECTED AREA(S) at 600am and 1000pm 07/08/2020 11/15/2023 Discontinued Comment on above: APPLY TO THE AFFECTE D AREA(S) at 600am and 1000pm LORazepam 0.5 mg oral tablet (9 sources) Benzodiazepine Start: End: take 0.5 mg by mouth every eight hours as needed for anxiety and anxiety LORazepam (ATIVAN) 0.5 mg Indications: Situational anxiety Take 1 tablet by mouth three times a day as needed for up to 30 days. 30 tablet 1 04/06/2024 05/06/2024 Active Start: 02-17-2023 End: 06-10-2023 take 0.5 mg by mouth every eight hours as needed for anxiety and anxiety LORazepam (ATIVAN) 0.5 mg Indications: Situational anxiety Take 1 tablet by mouth three times a day as needed for up to 30 days. 30 tablet 1 05/11/2023 06/10/2023 Comment on above: Take 1 tablet by azar th three times daily as needed (anxiety) for up to 10 days. Take 0.5 mg by mouth three times daily as needed. Take 1 tablet by azar th three times a day as needed for up to 30 days. MEDICATION, NON-DATABASE (19 sources) Start: 05-16-2023 MEDICATION, NON-DATABASE Indications: Cervicalgia , Other chronic pain , Diffuse myofascial pain syndrome , Chronic knee pain, unspecified laterality Stair lift 1 Each 05/16/2023 Active Start: 05-16-2023 MEDICATION, NO N-DATABASE Indications: Cervicalgia , Other chronic pain , Diffuse myofascial pain syndrome , Chronic knee pain, unspecified laterality Stair lift 1 Each 0 05/16/2023 Active Comment on above: Stair lift montelukast 10 mg oral tablet (20 sources) Leukotriene Receptor Antagonist Start: End: take 1 tablet by mouth once daily at bedtime montelukast (SINGULAIR) 10 mg tablet Indications: Seasonal allergic rhinitis due to other allergic trigger Take 1 tablet by mouth daily at bedtime. For allergies 90 tablet 1 04/06/2024 Active Comment on above: Take 1 tablet by azar th daily at bedtime. For allergies ofloxacin 3 mg/ml otic solution (20 sources) Quinolone Antimicrobial Start: ofloxacin (FLOXIN) 0.3 % otic solution Indications: Acute otitis externa of both ears, unspecified type Use 5 Drops in both ears twice daily. 5 mL 04/29/2021 Active Comment on above: Use 5 Drops in both ears twice daily. ondansetron 4 mg disintegrating oral tablet (20 sources) Serotonin-3 Receptor Antagonist Start: 024 End: take 1 tablet by mouth every six hours as needed ondansetron orally disintegrating (ZOFRAN ODT) 4 mg disintegrating tablet Take 1 tablet by mouth every 6 hours as needed for nausea/vomiting. 30 tablet 2 12/01/2023 12/31/2023 Active Start: 03-04-2022 End: 12-01-2023 take 1 tablet by mouth every eight hours as needed for nausea and nausea ondansetron orally disintegrating (ZOFRAN ODT) 4 mg disintegrating tablet Indications: Nausea Take 1 tablet by mouth every 8 hours as needed for nausea/vomiting. 30 tablet 2 03/04/2022 12/01/2023 Discontinued Comment on above: Take 1 tablet by azar th every 8 hours as needed for nausea/vomiting. polyethylene glycol 3350 92859 mg powder for oral solution (20 sources) Osmotic Laxative Start: 03-27-2023 End: 03-26-2023 polyethylene glycol 3350 17 gram packet Take 1 Packet by mouth once daily. Dissolve dose in 4 - 8 ounces of liquid and take as directed. 03/27/2023 Active End: 03-26-2023 polyethylene glycol 3350 (WV RALAX, GLYCOLAX) 17 gram packet Take 17 g by mouth once daily. 03/26/2023 Discontinued Comment on above: Take 17 g by mouth o nce daily. Take 1 Packet by azar th once daily. Dissolve dose in 4 - 8 ounces of liquid and take as directed. microencapsulated potassium chloride 20 meq extended release oral tablet (20 sources) Start: 07-08-2020 potassium chloride ER (K-DUR, KLOR-CON) 20 mEq tablet Take 20 mEq by mouth twice daily with meals. 07/08/2020 Active Comment on above: Take 20 mEq by mouth twice daily with meals. predniSONE 10 mg oral tablet (4 sources) Start: 10-26-2023 End: 11-04-2023 predniSONE (DELTASONE) 10 mg tablet Indications: Arm injuries, left, initial encounter , Rash Take 4 tabs daily for 3 days, then 2 tabs daily for 3 days, then 1 tab daily for 3 days with food. 21 tablet 0 10/26/2023 11/04/2023 Active Start: 05-30-2023 End: 06-08-2023 predniSONE (DELTASONE) 10 mg tablet Indications: Dermatitis contact Take 4 tabs daily for 3 days, then 2 tabs daily for 3 days, then 1 tab daily for 3 days with food. 21 tablet 0 05/30/2023 06/08/2023 Active End: 05-07-2021 take 1 tablet by mouth once daily predniSONE (DELTASONE) 10 mg tablet Take 10 mg by mouth once daily. 05/07/2021 Discontinued (Course of therapy completed) Comment on above: Take 4 tabs daily fo r 3 days, then 2 tabs daily for 3 days, then 1 tab daily for 3 days with food. tiZANidine 4 mg oral tablet (7 sources) Central alpha-2 Adrenergic Agonist Start: take 1 tablet by mouth every eight hours as needed for muscle spasms tiZANidine (ZANAFLEX) 4 mg tablet Indications: Closed nondisplaced fracture of surgical neck of left humerus with routine healing, unspecified fracture morphology, subsequent encounter Take 1 tablet by mouth every 8 hours as needed (muscle spasms). 60 tablet 1 04/06/2024 Active Start: 09-20-2022 take 1 tablet by azar th every eight hours as needed for muscle spasms tiZANidine (ZANAFLEX) 4 mg tablet Indications: Closed nondisplaced fracture of surgical neck of left humerus with routine healing, unspecified fracture morphology, subsequent encounter Take 1 tablet by mouth every 8 hours as needed (muscle spasms). 60 tablet 1 09/20/2022 Suspended Comment on above: Take 1 tablet by azar th every 8 hours as needed (muscle spasms). triamcinolone acetonide 1 mg/ml topical cream (1 source) Corticosteroid Start: 07-20-19 End: 08-19-19 23 triamcinolone acetonide (KENALOG) 0.1 % cream Indications: Eczema of both external ears Apply 1 application to affected area twice daily. For ear eczema/psoriasis, Apply sparingly to area for rash/itching. 30 g 1 07/20/2022 08/19/2022 Active Comment on above: Apply 1 application to affected area twice daily. For ear eczema/psoriasis, Apply sparingly to area for rash/itching. 24 hr venlafaxine 37.5 mg extended release oral capsule (14 sources) Serotonin and Norepinephrine Reuptake Inhibitor Start: 11-15-19 24 End: 06-19-20 24 take 1 capsule by mouth once daily venlafaxine ER (EFFEXOR XR) 37.5 mg 24 hr capsule Indications: Hot flashes due to menopause , Bipolar 2 disorder, major depressive episode (HCC) Take 1 capsule by mouth once daily. 30 capsule 2 03/21/2024 06/19/2024 Active VITAMIN B COMPLEX ORAL (20 sources) VITAMIN B COMPLE X ORAL Take by mouth. Active VITAMIN B COMPLE X ORAL Take by mouth. 0 Suspended VITAMIN B COMPLE X ORAL Take by mouth. 0 Active Comment on above: Take by mouth. Completed/Discontinued Medications Medication Drug Class(es) Dates Sig (Normalized) Sig (Original) >IV - Start IV (7 sources) Start: 08-06-2016 End: 11-09-2021 >IV - Start IV Indications: Cat bite, subsequent encounter , Infected cat bite, subsequent encounter START IV 1 Each 08/06/2016 11/09/2021 Discontinued Start: 08-06-2016 End: 11-09-2021 >IV - Start IV Indications: Cat bite, subsequent encounter , Infected cat bite, subsequent encounter START IV 1 Each 0 08/06/2016 11/09/2021 Discontinued Start: 08-06-2016 >IV - Start IV Indications: Cat bite, subsequent encounter , Infected cat bite, subsequent encounter START IV 1 Each 0 08/06/2016 Active Comment on above: START IV acetaminophen 325 mg / HYDROcodone bitartrate 5 mg oral tablet (6 sources) Opioid Agonist Start: End: take 1 tablet by mouth every six hours as needed for pain HYDROcodone-acetamino phen (NORCO) 5-325 mg per tablet Indications: Fall, initial encounter , Rib pain Take 1 tablet by mouth every 6 hours as needed for pain. 20 tablet 0 08/26/2021 01/06/2022 Discontinued Comment on above: Take 1 tablet by azar every 6 hours as needed for pain. benzonatate 100 mg oral capsule (1 source) Non-narcotic Antitussive Start: End: take 1 capsule by mouth every eight hours as needed benzonatate (TESSALON PERLE) 100 mg capsule Take 1 capsule by mouth three times daily as needed for up to 10 days. 30 capsule 0 07/23/2021 08/02/2021 Comment on above: Take 1 capsule by mo [facility] three times daily as needed for up to 10 days. Blood Glucose Control, Normal soln (1 source) Start: End: Blood Glucose Control, Normal soln Indications: Low blood sugar Test controls as needed. Dx: Other DM Code: hypoglycemia e16.2 1 Each 3 11/11/2021 11/12/2021 Comment on above: Test controls as nee ded. Dx: Other DM Code: hypoglycemia e16.2 Blood-Glucose Meter monitoring kit (1 source) Start: End: Blood-Glucose Meter monitoring kit Indications: Low blood sugar Glucose Meter of Choice - Kit - Dx: Other DM Code: hypoglycemia E16.2 1 Each 0 11/11/2021 11/12/2021 Comment on above: Glucose Meter of Cho ice - Kit - Dx: Other DM Code: hypoglycemia E16.2 carvedilol 12.5 mg oral tablet (20 sources) alpha-Adrenergic Shola, beta-Adrenergic Shola Start: End: take 1 tablet by mouth twice daily at mealtime carvedilol (COREG) 12.5 mg tablet TAKE 1 TABLET BY MOUTH TWICE DAILY. must administer with a meal/food. 11 02/20/2019 03/21/2024 Discontinued Comment on above: TAKE 1 TABLET BY AZAR TWICE DAILY. must administer with a meal/food. cyclobenzaprine hydrochloride 10 mg oral tablet (7 sources) Muscle Relaxant Start: take 1 tablet by mouth three times daily as needed for muscle spasms cyclobenzaprine (FLEXERIL) 10 mg tablet Indications: Closed nondisplaced fracture of surgical neck of left humerus with routine healing, unspecified fracture morphology, subsequent encounter Take 1 tablet by mouth three times daily as needed for muscle spasm. 30 tablet 1 08/27/2022 Suspended Comment on above: Take 1 tablet by azar three times daily as needed for muscle spasm. 1 ml denosumab 60 mg/ml prefilled syringe (20 sources) RANK Ligand Inhibitor Start: End: denosumab (PROLIA) 60 mg/mL Inject 1 mL subcutaneously once every 6 months. 1 mL 1 08/15/2020 03/26/2023 Discontinued Comment on above: Inject 1 mL subcutan eously once every 6 months. dexamethasone 6 mg oral tablet (20 sources) Corticosteroid Start: End: take 1 tablet by mouth twice daily at mealtime dexAMETHasone (DECADRON) 6 mg tablet Take 1 tablet by mouth twice daily with meals. 6 tablet 07/23/2021 03/26/2023 Discontinued Comment on above: Take 1 tablet by azar twice daily with meals. docusate sodium 50 mg / sennosides, long-term 8.6 mg oral tablet (20 sources) Start: End: take 1 tablet by mouth twice daily senna-docusate (SENNA-S) 8.6-50 mg per tablet Take 1 tablet by mouth twice daily. 03/26/2023 03/21/2024 Discontinued Comment on above: Take 1 tablet by azar twice daily. ergocalciferol 1.25 mg oral capsule (20 sources) Provitamin D2 Compound Start: End: take 1 capsule by mouth every week ergocalciferol 50,000 unit capsule (VITAMIN D2, DRISDOL) Indications: Age-related osteoporosis without current pathological fracture Take 1 capsule by mouth one time a week. 12 capsule 3 04/22/2020 08/26/2021 Discontinued Comment on above: Take 1 capsule by mo [facility] one time a week. lisinopril 2.5 mg oral tablet (20 sources) Angiotensin Converting Enzyme Inhibitor Start: End: take 1 tablet by mouth once daily lisinopril 2.5 mg tablet Take 2.5 mg by mouth once daily. 12/04/2019 03/26/2023 Discontinued Comment on above: Take 2.5 mg by mouth once daily. nystatin 100 unt/mg topical powder (20 sources) Polyene Antifungal Start: End: nystatin (NYSTOP) powder Apply 1 application to affected area twice daily. 90 g 11 05/13/2016 12/01/2023 Discontinued Comment on above: Apply 1 application to affected area twice daily. oxyCODONE hydrochloride 5 mg oral tablet (1 source) Opioid Agonist Start: End: take 1 tablet by mouth every six hours oxyCODONE IR (ROXICODONE) 5 mg immediate release tablet TAKE 1 TO 2 TABLETS BY MOUTH EVERY 6 HOURS 08/04/2020 01/27/2021 Discontinued (Course of therapy completed) PARoxetine hydrochloride 40 mg oral tablet (20 sources) Serotonin Reuptake Inhibitor Start: End: take 1 tablet by mouth once daily PARoxetine (PAXIL) 40 mg tablet Indications: Bipolar 2 disorder, major depressive episode (HCC) Take 1 tablet by mouth once daily. 90 tablet 1 01/27/2021 01/29/2022 Discontinued Start: 04-22-2020 End: 01-27-2021 take 1 tablet by mouth once daily PARoxetine (PAXIL) 30 mg tablet Indications: Bipolar 2 disorder, major depressive episode (HCC) Take 1 tablet by mouth once daily. 90 tablet 3 04/22/2020 01/27/2021 Discontinued Comment on above: [facility] perflutren lipid microspheres 1.3 mL in NaCl (PF) 0.9% 10 mL injection (DEFINITY) (20 sources) Start: 11-10-19 End: 02-09-20 perflutren lipid microspheres 1.3 mL in NaCl (PF) 0.9% 10 mL injection (DEFINITY) phentermine hydrochloride 37.5 mg oral tablet (13 sources) Sympathomimetic Amine Anorectic Start: 01-07-20 End: 04-03-20 take 1 tablet by mouth once daily Phentermine HCl (ADIPEX-P) 37.5 mg tablet Indications: Obesity, Class II, BMI 35-39.9 , Dyslipidemia Take 1 tablet by mouth once daily for 30 days. BMI 37.41 30 tablet 03/04/2022 04/03/2022 Start: 04-29-2021 End: 06-17-2021 take 1 tablet by mouth once daily Phentermine HCl (ADIPEX-P) 37.5 mg tablet Indications: Obesity, Class II, BMI 35-39.9 Take 1 tablet by mouth once daily for 30 days. BMI 37 30 tablet 04/29/2021 06/17/2021 Discontinued Comment on above: Take 1 tablet by azar th once daily for 30 days. BMI 37.16 Take 1 tablet by azar th once daily for 30 days. BMI 37.53 Take 1 tablet by azar th once daily for 30 days. BMI 37.41 polysaccharide iron complex 150 mg oral capsule (20 sources) Start: 1 End: 3 take 1 tablet by mouth once daily at mealtime IFEREX 150 150 mg iron capsule Indications: Iron deficiency anemia, unspecified iron deficiency anemia type TAKE 1 TABLET BY MOUTH EVERY DAY WITH MEALS 90 capsule 3 08/15/2020 08/26/2021 Discontinued Comment on above: TAKE 1 TABLET BY AZAR TH EVERY DAY WITH MEALS 125 ml sodium chloride 9 mg/ml prefilled syringe (20 sources) Start: 2 End: 3 sodium chloride 0.9 % (flush) 10 mL (BD POSIFLUSH) Problems Active Problems Problem Classification Problem Date Documented Date Episodic/Chronic Adjustment disorders (1 source) Grief finding; Translations: [Adjustment disorder with depressed mood] 02-17-2023 Chronic Anxiety disorders (5 sources) Anxiety; Translations: [Other specified anxiety disorders] Onset: 12-23-2023 02-17-2023 Chronic Cardiac dysrhythmias (1 source) Palpitations; Translations: [Palpitations] Episodic Chronic obstructive pulmonary disease and bronchiectasis (20 sources) Chronic obstructive lung disease; Translations: [Chronic obstructive pulmonary disease, unspecified] Onset: 05-10-2011 05-10-2011 Chronic Disorders of lipid metabolism (20 sources) Hyperlipidemia; Translations: [Hyperlipidemia, unspecified] Onset: 05-20-2010 05-20-2010 Chronic E Codes: Fall (20 sources) Fall on same level; Translations: [Fall on same level, unspecified, initial encounter] Onset: 03-19-2023 03-19-2023 Episodic Esophageal disorders (20 sources) Gastroesophageal reflux disease; Translations: [Gastro-esophageal reflux disease without esophagitis] 04-07-2006 Chronic Essential hypertension (2 sources) Hypertensive disorder; Translations: [Essential (primary) hypertension] Onset: 12-23-2023 12-01-2023 Chronic Fracture of upper limb (20 sources) Closed fracture of surgical neck of humerus; Translations: [Unspecified nondisplaced fracture of surgical neck of left humerus, subsequent encounter for fracture with routine healing] Onset: 07-20-2022 Episodic Headache; including migraine (3 sources) Headache; Translations: [Headaches] 12-01-2023 Episodic Immunizations and screening for infectious disease (1 source) Suspected disease caused by 2019-nCoV; Translations: [Suspected COVID-19 virus infection] 07-22-2021 Episodic Menopausal disorders (2 sources) Menopausal flushing; Translations: [Menopausal and female climacteric states] 11-15-2023 Chronic Mood disorders (20 sources) Depressive disorder; Translations: [Other specified depressive episodes] Onset: 11-24-2016 04-07-2006 Chronic Nausea and vomiting (1 source) Nausea; Translations: [Nausea] Episodic Nutritional deficiencies (20 sources) Vitamin D deficiency; Translations: [Vitamin D deficiency, unspecified] Onset: 04-22-2020 04-22-2020 Chronic Osteoarthritis (20 sources) Osteoarthritis; Translations: [Unspecified osteoarthritis, unspecified site] Onset: 10-15-2010 10-15-2010 Chronic Osteoporosis (20 sources) Osteoporosis; Translations: [Age-related osteoporosis without current pathological fracture] Onset: 02-07-2006 02-03-2010 Chronic Other connective tissue disease (20 sources) History of implantation of joint prosthesis into elbow joint; Translations: [Presence of right artificial elbow joint] Onset: 06-20-2023 04-15-2023 Chronic Other connective tissue disease (1 source) Presence of right artificial elbow joint; Translations: [Status post right elbow joint replacement] Onset: 06-20-2023 Chronic Other ear and sense organ disorders (1 source) Eczema of external auditory canal; Translations: [Acute eczematoid otitis externa, bilateral] Episodic Other ear and sense organ disorders (1 source) Impacted cerumen in right ear; Translations: [Impacted cerumen, right ear] 11-15-2023 Episodic Other endocrine disorders (3 sources) Hypoglycemia; Translations: [Hypoglycemia, unspecified] Chronic Other hereditary and degenerative nervous system conditions (20 sources) Restless legs; Translations: [Restless legs syndrome] Onset: 11-24-2016 11-24-2016 Chronic Other hereditary and degenerative nervous system conditions (4 sources) Impaired cognition; Translations: [Mild cognitive impairment, so stated] 12-01-2023 Chronic Other hereditary and degenerative nervous system conditions (1 source) Mild cognitive impairment, so stated; Translations: [Cognitive impairment, mild, so stated] Onset: 12-15-2023 Chronic Other inflammatory condition of skin (1 source) Scalp psoriasis; Translations: [Psoriasis, unspecified] 11-15-2023 Chronic Other inflammatory condition of skin (1 source) Psoriasis; Translations: [Psoriasis, unspecified] 11-15-2023 Chronic Other injuries and conditions due to external causes (1 source) Injury of upper extremity; Translations: [Unspecified injury of left shoulder and upper arm, initial encounter] 10-26-2023 Episodic Other lower respiratory disease (1 source) Cough; Translations: [Acute cough] Episodic Other lower respiratory disease (1 source) Cough; Translations: [Acute cough] 04-28-2022 Episodic Other lower respiratory disease (1 source) Rib pain; Translations: [Pleurodynia] 08-26-2021 Episodic Other nervous system disorders (20 sources) Chronic pain; Translations: [Other chronic pain] Onset: 12-12-2008 12-12-2008 Chronic Other nervous system disorders (7 sources) Chronic pain syndrome; Translations: [Chronic pain syndrome] Chronic Other nervous system disorders (1 source) Impaired cognition; Translations: [Other symptoms and signs involving cognitive functions and awareness] 02-20-2024 Episodic Other non-traumatic joint disorders (20 sources) Soft tissue lesion of shoulder region; Translations: [Other specified joint disorders, unspecified shoulder] 04-07-2006 Episodic Other nutritional; endocrine; and metabolic disorders (20 sources) Obesity; Translations: [Other obesity due to excess calories] Onset: 11-24-2016 11-24-2016 Chronic Other nutritional; endocrine; and metabolic disorders (20 sources) Obese class II; Translations: [Obesity, unspecified] Onset: 04-29-2021 04-29-2021 Chronic Other nutritional; endocrine; and metabolic disorders (20 sources) Obesity caused by energy imbalance; Translations: [Other obesity due to excess calories] Onset: 11-24-2016 11-24-2016 Chronic Other nutritional; endocrine; and metabolic disorders (1 source) Hypercalcemia; Translations: [Hypercalcemia] 03-21-2024 Chronic Other nutritional; endocrine; and metabolic disorders (1 source) Hypoalbuminemia; Translations: [Other disorders of plasma-protein metabolism, not elsewhere classified] 03-21-2024 Chronic Other nutritional; endocrine; and metabolic disorders (1 source) Hypercalcemia; Translations: [Hypercalcemia] Onset: 03-21-2024 Chronic Other nutritional; endocrine; and metabolic disorders (1 source) Other disorders of plasma-protein metabolism, not elsewhere classified; Translations: [Hypoalbuminemia] Onset: 03-21-2024 Chronic Other screening for suspected conditions (not mental disorders or infectious disease) (4 sources) Patient encounter status; Translations: [Encounter for screening for malignant neoplasm of colon] Episodic Other skin disorders (1 source) Eruption; Translations: [Rash and other nonspecific skin eruption] 10-26-2023 Episodic Other upper respiratory disease (3 sources) Seasonal allergic rhinitis; Translations: [Other allergic rhinitis] Chronic Other upper respiratory infections (2 sources) Sore throat symptom; Translations: [Acute pharyngitis, unspecified] Episodic Otitis media and related conditions (1 source) Acute left otitis media; Translations: [Otitis media, unspecified, left ear] 11-15-2023 Episodic Residual codes; unclassified (20 sources) Obstructive sleep apnea syndrome; Translations: [Obstructive sleep apnea (adult) (pediatric)] Onset: 11-24-2016 11-24-2016 Chronic Residual codes; unclassified (20 sources) Daytime somnolence; Translations: [Other hypersomnia] Onset: 11-24-2016 11-24-2016 Chronic Residual codes; unclassified (3 sources) Poor short-term memory ; Translations: [Other amnesia] 12-01-2023 Episodic Residual codes; unclassified (1 source) Menopause present; Translations: [Asymptomatic menopausal state] 12-01-2023 Episodic Residual codes; unclassified (2 sources) Confusional state; Translations: [Disorientation, unspecified] 12-01-2023 Episodic Spondylosis; intervertebral disc disorders; other back problems (20 sources) Degeneration of intervertebral disc; Translations: [Degeneration of intervertebral disc, site unspecified] Onset: 01-23-2010 04-07-2006 Chronic Spondylosis; intervertebral disc disorders; other back problems (20 sources) Neck pain; Translations: [Cervicalgia] Onset: 01-14-2006 01-23-2010 Episodic Substance-related disorders (20 sources) Tobacco user; Translations: [Nicotine dependence, unspecified, uncomplicated] Onset: 01-26-2007 01-26-2007 Chronic Syncope (1 source) Syncope; Translations: [Syncope and collapse] Episodic Thyroid disorders (20 sources) Acquired hypothyroidism; Translations: [Hypothyroidism, unspecified] Onset: 11-24-2016 11-24-2016 Chronic Unclassified (1 source) Headaches; Translations: [Headaches] Onset: 12-15-2023 Unclassified (1 source) New Onset: 04-15-2023 Past or Other Problems Problem Classification Problem Date Documented Da te Episodic/Chronic Abdominal hernia (20 sources) Incisional hernia; Translations: [Incisional hernia without obstruction or gangrene] Onset: 12-30-2006 12-30-2006 Episodic Acute bronchitis (20 sources) Acute bronchitis; Translations: [Acute bronchitis, unspecified] Onset: 09-18-2007 Resolved: 01-23-2010 01-23-2010 Episodic Allergic reactions (2 sources) Contact dermatitis; Translations: [Unspecified contact dermatitis, unspecified cause] Onset: 05-30-2023 05-30-2023 Episodic Complications of surgical procedures or medical care (20 sources) Trunk varices; Translations: [Complication of vein following a procedure, not elsewhere classified, initial encounter] Onset: 05-20-2010 Resolved: 05-20-2010 05-20-2010 Episodic Deficiency and other anemia (20 sources) Iron deficiency anemia; Translations: [Iron deficiency anemia, unspecified] Onset: 04-29-2021 04-29-2021 Episodic Diabetes mellitus without complication (20 sources) Hyperglycemia; Translations: [Impaired fasting glucose] Onset: 04-22-2020 04-22-2020 Episodic Fracture of upper limb (20 sources) Open fracture of lower end of humerus; Translations: [Other nondisplaced fracture of lower end of right humerus, initial encounter for open fracture] Onset: 03-19-2023 03-21-2023 Episodic Malaise and fatigue (20 sources) Fatigue; Translations: [Other fatigue] Onset: 04-29-2021 04-29-2021 Episodic Mood disorders (3 sources) Mood swings; Translations: [Emotional lability] Onset: 12-15-2023 12-01-2023 Episodic Nutritional deficiencies (20 sources) Iron deficiency; Translations: [Iron deficiency] Onset: 11-24-2016 11-24-2016 Episodic Other circulatory disease (15 sources) Low blood pressure; Translations: [Hypotension, unspecified] Onset: 03-22-2023 Resolved: 03-26-2023 03-26-2023 Episodic Other connective tissue disease (20 sources) Myofascial pain syndrome; Translations: [Myalgia, other site] Onset: 05-14-2013 05-14-2013 Episodic Other diseases of veins and lymphatics (20 sources) Peripheral venous insufficiency; Translations: [Venous insufficiency (chronic) (peripheral)] Onset: 11-01-2010 11-01-2010 Episodic Other ear and sense organ disorders (20 sources) Acute otitis externa of bilateral ears; Translations: [Unspecified acute noninfective otitis externa, bilateral] Onset: 04-29-2021 04-29-2021 Episodic Other gastrointestinal disorders (20 sources) History of bypass of stomach; Translations: [Bariatric surgery status] Onset: 05-20-2010 05-20-2010 Episodic Other injuries and conditions due to external causes (20 sources) Traumatic injury; Translations: [Injury, unspecified, initial encounter] Onset: 03-23-2023 03-26-2023 Episodic Other lower respiratory disease (20 sources) Respiratory tract infection; Translations: [Other specified respiratory disorders] Onset: 02-07-2012 Resolved: 02-07-2012 02-07-2012 Episodic Other non-traumatic joint disorders (20 sources) Pain in unspecified knee; Translations: [Pain in joint, lower leg] Onset: 05-14-2013 05-14-2013 Episodic Other non-traumatic joint disorders (20 sources) Chronic pain of left upper limb; Translations: [Pain in left shoulder] Onset: 09-20-2022 Episodic Other non-traumatic joint disorders (20 sources) Shoulder joint pain; Translations: [Pain in unspecified shoulder] Onset: 01-14-2006 Resolved: 01-23-2010 01-23-2010 Episodic Residual codes; unclassified (1 source) Other amnesia; Translations: [Short-term memory loss] Onset: 12-15-2023 Episodic Residual codes; unclassified (1 source) Disorientation, unspecified; Translations: [Confusion] Onset: 12-15-2023 Episodic Shock (16 sources) Hypovolemic shock; Translations: [Hypovolemic shock] Onset: 03-20-2023 Resolved: 03-26-2023 03-20-2023 Episodic Sprains and strains (20 sources) Neck sprain; Translations: [Sprain of joints and ligaments of unspecified parts of neck, initial encounter] Onset: 07-14-2006 Resolved: 01-23-2010 01-23-2010 Episodic Results Test Name Value Interpretation Reference Range Facility XR Elbow - right AP and Late ral and obliqueon 03-23-2024 X-rays 03/21/24 3 views of the right elbow demonstrate stable position of the elbow arthroplasty. The cement mantle appears intact without lucency on either the ulna nor the humerus. No other acute process noted. [facility] Radiology Study observation (narrative) [facility] 25(OH)D3 SerPl-mCncon 2023 25-hydroxyvitamin D3 [Mass/Vol] 23.8 ng/mL Low 31.0-80.0 [facility] Comment on above: Order Comment: Speci men Type: BLOOD SPECIMENOrdering Facility: [facility] Address: [address] [place] [address] Performed By: #### 1 989-3 ####[facility] LABCLIA [id number] [address] [address] [place] CBC W Auto Differential pane l (Bld)on 03-21-2024 Basophils (Bld) [#/Vol] 0.04 10*3/uL [facility] Basophils/100 WBC (Bld) 0.7 % C [facility] Differential cell count method Nom (Bld) Auto [facility] Eosinophils (Bld) [#/Vol] 0.04 10*3/uL [facility] Eosinophils/100 WBC (Bld) 0.7 % [facility] Erythrocyte distribution width (RBC) [Ratio] 17.2 % High 11.5 - 15.0 % [facility] Hematocrit (Bld) [Volume fraction] 37.2 % 36.0 - 46.0 % [facility] Hemoglobin (Bld) [Mass/Vol] 11.3 g/dL Low 11.5 - 15.5 g/dL [facility] Immature granulocytes (Bld) [#/Vol] [facility] Immature granulocytes/100 WBC (Bld) 0.2 % [facility] Interpretation and review of laboratory results Abnormal [facility] Lymphocytes (Bld) [#/Vol] 2.03 10*3/uL [facility] Lymphocytes/100 WBC (Bld) 37.1 % [facility] MCH (RBC) [Entitic mass] 26.3 pg 26.0 - 34.0 pg [facility] MCHC (RBC) [Mass/Vol] 30.4 g/dL Low 30.5 - 36.0 g/dL [facility] MCV (RBC) [Entitic vol] 86.7 fL 80.0 - 100.0 fL [facility] Monocytes (Bld) [#/Vol] 0.45 10*3/uL [facility] Monocytes/100 WBC (Bld) 8.2 % C [facility] Neutrophils (Bld) [#/Vol] 2.90 10*3/uL [facility] Neutrophils/100 WBC (Bld) 53.1 % [facility] Nucleated RBC (Bld) [#/Vol] [facility] Nucleated RBC/100 WBC (Bld) [Ratio] 0.0 % /100 WBC [facility] Platelet mean volume (Bld) [Entitic vol] 10.5 fL 9.0 - 12.7 fL [facility] Platelets (Bld) [#/Vol] 255 10*3/uL [facility] RBC (Bld) [#/Vol] 4.29 10*6/uL 3.90 - 5.2 0 m/uL [facility] WBC (Bld) [#/Vol] 5.47 10*3/uL [facility] Basophils (Bld) [#/Vol] 0.04 10*3/uL Normal <0.11 [facility] Comment on above: Order Comment: Speci men Type: BLOOD SPECIMENOrdering Facility: [facility] Address: [address] [place] [address] Performed By: #### 5 7021-8 ####[facility] LABCLIA [id number] [place] [address] [place] Basophils/100 WBC (Bld) 0.7 % Normal C [facility] Comment on above: Order Comment: Speci men Type: BLOOD SPECIMENOrdering Facility: [facility] Address: [address] [place] [address] Performed By: #### 5 7021-8 ####[facility] LABCLIA [id number] [place] [address] [place] Differential cell count method Nom (Bld) Auto Normal [facility] Comment on above: Order Comment: Speci men Type: BLOOD SPECIMENOrdering Facility: [facility] Address: [address] [place] [address] Performed By: #### 5 7021-8 ####[facility] LABCLIA [id number] [place] [address] [place] Eosinophils (Bld) [#/Vol] 0.04 10*3/uL Normal <0.46 [facility] Comment on above: Order Comment: Speci men Type: BLOOD SPECIMENOrdering Facility: [facility] Address: [address] [place] [address] Performed By: #### 5 7021-8 ####[facility] LABCLIA [id number] [place] [address] [place] Eosinophils/100 WBC (Bld) 0.7 % Normal [facility] Comment on above: Order Comment: Speci men Type: BLOOD SPECIMENOrdering Facility: [facility] Address: [address] [place] [address] Performed By: #### 5 7021-8 ####[facility] LABCLIA [id number] [place] [address] [place] Erythrocyte distribution width (RBC) [Ratio] 17.2 % High 11.5-15.0 [facility] Comment on above: Order Comment: Speci men Type: BLOOD SPECIMENOrdering Facility: [facility] Address: [address] [place] [address] Performed By: #### 5 7021-8 ####[facility] LABCLIA [id number] [place] [address] [place] Hematocrit (Bld) [Volume fraction] 37.2 % Normal 36.0-46.0 [facility] Comment on above: Order Comment: Speci men Type: BLOOD SPECIMENOrdering Facility: [facility] Address: [address] [place] [address] Performed By: #### 5 7021-8 ####[facility] LABCLIA [id number] [place] [address] [place] Hemoglobin (Bld) [Mass/Vol] 11.3 g/dL Low 11.5-15.5 [facility] Comment on above: Order Comment: Speci men Type: BLOOD SPECIMENOrdering Facility: [facility] Address: [address] [place] [address] Performed By: #### 5 7021-8 ####[facility] LABCLIA [id number] [place] [address] [place] Immature granulocytes (Bld) [#/Vol] 10*3/uL Normal <0.10 [facility] Comment on above: Order Comment: Speci men Type: BLOOD SPECIMENOrdering Facility: [facility] Address: [address] [place] [address] Performed By: #### 5 7021-8 ####[facility] LABCLIA [id number] [place] [address] [place] Immature granulocytes/100 WBC (Bld) 0.2 % Normal [facility] Comment on above: Order Comment: Speci men Type: BLOOD SPECIMENOrdering Facility: [facility] Address: [address] [place] [address] Performed By: #### 5 7021-8 ####[facility] LABCLIA [id number] [place] [address] [place] Lymphocytes (Bld) [#/Vol] 2.03 10*3/uL Normal 1.00-4.00 [facility] Comment on above: Order Comment: Speci men Type: BLOOD SPECIMENOrdering Facility: [facility] Address: [address] [place] [address] Performed By: #### 5 7021-8 ####[facility] LABCLIA [id number] [place] [address] [place] Lymphocytes/100 WBC (Bld) 37.1 % Normal [facility] Comment on above: Order Comment: Speci men Type: BLOOD SPECIMENOrdering Facility: [facility] Address: [address] [place] [address] Performed By: #### 5 7021-8 ####[facility] LABCLIA [id number] [place] [address] [place] MCH (RBC) [Entitic mass] 26.3 pg Normal 26.0-34.0 [facility] Comment on above: Order Comment: Speci men Type: BLOOD SPECIMENOrdering Facility: [facility] Address: [address] [place] [address] Performed By: #### 5 7021-8 ####[facility] LABCLIA [id number] [place] [address] [place] MCHC (RBC) [Mass/Vol] 30.4 g/dL Low 30.5-36.0 [facility] Comment on above: Order Comment: Speci men Type: BLOOD SPECIMENOrdering Facility: [facility] Address: [address] [place] [address] Performed By: #### 5 7021-8 ####[facility] LABCLIA [id number] [place] [address] [place] MCV (RBC) [Entitic vol] 86.7 fL Normal 80.0-100.0 C [facility] Comment on above: Order Comment: Speci men Type: BLOOD SPECIMENOrdering Facility: [facility] Address: [address] [place] [address] Performed By: #### 5 7021-8 ####[facility] LABCLIA [id number] [place] [address] [place] Monocytes (Bld) [#/Vol] 0.45 10*3/uL Normal <0.87 [facility] Comment on above: Order Comment: Speci men Type: BLOOD SPECIMENOrdering Facility: [facility] Address: [address] [place] [address] Performed By: #### 5 7021-8 ####[facility] LABCLIA [id number] [place] [address] [place] Monocytes/100 WBC (Bld) 8.2 % Normal C [facility] Comment on above: Order Comment: Speci men Type: BLOOD SPECIMENOrdering Facility: [facility] Address: [address] [place] [address] Performed By: #### 5 7021-8 ####[facility] LABCLIA [id number] [place] [address] [place] Neutrophils (Bld) [#/Vol] 2.90 10*3/uL Normal 1.45-7.50 [facility] Comment on above: Order Comment: Speci men Type: BLOOD SPECIMENOrdering Facility: [facility] Address: [address] [place] [address] Performed By: #### 5 7021-8 ####[facility] LABCLIA [id number] [place] [address] [place] Neutrophils/100 WBC (Bld) 53.1 % Normal [facility] Comment on above: Order Comment: Speci men Type: BLOOD SPECIMENOrdering Facility: [facility] Address: [address] [place] [address] Performed By: #### 5 7021-8 ####[facility] LABCLIA [id number] [place] [address] [place] Nucleated RBC (Bld) [#/Vol] 10*3/uL Normal <0.01 [facility] Comment on above: Order Comment: Speci men Type: BLOOD SPECIMENOrdering Facility: [facility] Address: [address] [place] [address] Performed By: #### 5 7021-8 ####[facility] LABCLIA [id number] [place] [address] [place] Nucleated RBC/100 WBC (Bld) [Ratio] 0.0 /100 WBC Normal [facility] Comment on above: Order Comment: Speci men Type: BLOOD SPECIMENOrdering Facility: [facility] Address: [address] [place] [address] Performed By: #### 5 7021-8 ####[facility] LABCLIA [id number] [place] [address] [place] Platelet mean volume (Bld) [Entitic vol] 10.5 fL Normal 9.0-12.7 [facility] Comment on above: Order Comment: Speci men Type: BLOOD SPECIMENOrdering Facility: [facility] Address: [address] [place] [address] Performed By: #### 5 7021-8 ####[facility] LABCLIA [id number] [place] [address] [place] Platelets (Bld) [#/Vol] 255 10*3/uL Normal 150-400 [facility] Comment on above: Order Comment: Speci men Type: BLOOD SPECIMENOrdering Facility: [facility] Address: [address] [place] [address] Performed By: #### 5 7021-8 ####[facility] [id number] [place] [address] [place] RBC (Bld) [#/Vol] 4.29 10*6/uL Normal 3.90-5.20 [facility] Comment on above: Order Comment: Speci men Type: BLOOD SPECIMENOrdering Facility: [facility] Address: [address] [place] [address] Performed By: #### 5 7021-8 ####[facility] [id number] [place] [address] [place] WBC (Bld) [#/Vol] 5.47 10*3/uL Normal 3.70-11.00 [facility] Comment on above: Order Comment: Speci men Type: BLOOD SPECIMENOrdering Facility: [facility] Address: [address] [place] [address] Performed By: #### 5 7021-8 ####[facility] [id number] [place] [address] [place] CNOVon 03-21-2024 CNOV Office Visit (FAMPWS ) TASNEEM RIZZO I ([id number]) 1950 F Date Time Provider Department 03/21/24 3:00 PM EDWIN KEI Jeff BELLEPWS During your visit today, we recorded the following information about you: Temperature Pulse Respiration Blood pressure 97 degrees 88/minute 24/minute 116/60 Weight 78.7 kg PinedaKei thurman, DO 03/21/2024 10:14 PM Signed CC: Tasneem Rizzo is a 73 year old female who presents to the office for follow up HPI: Overall she feels she is doing well right now She is back at home She recently had a trip and a fall and was seen at [facility] for evaluation Mood, feels she is overall managing well. She is recently a . in November. She is coping okay. She is thankful to be the caregiver to her disabled grandson and this gives her purpose and hope and she enjoys taking care of him routinely. Hypothyroidism. Hx of, needing labs rechecked Severe spinal arthritis and osteoporosis. Knows need for more consistently exercise. Has fatigue symptoms PAST MEDICAL HISTORY No date: Chronic obstructive pulmonary disease (COPD) (HCC) No date: Degeneration of intervertebral disc, site unspecified No date: Depressive disorder, not elsewhere classified No date: Esophageal reflux No date: Hypothyroidism No date: Obstructive sleep apnea No date: Osteoporosis, unspecified No date: Other affections of shoulder region, not elsewhere classified No date: Right elbow pain PAST SURGICAL HISTORY No date: ARTHROSCOPY KNEE DIAGNOSTIC W/WO SYNOVIAL BX SPX Comment: Arthroscopy, knee No date: DELIVERY ONLY Comment: , low cervical No date: CHOLECYSTECTOMY Comment: Cholecystectomy 03/06/07: IMPLANT MESH OPN HERNIA RPR/DEBRIDEMENT CLOSURE 03/27/2004: PAST SURGICAL HISTORY OF Comment: gastric bypass No date: RPR 1ST INGUN HRNA AGE 3 YRS/> REDUCIBLE Comment: Hernia repair, inguinal No date: TONSILLECTOMY PRIMARY/SECONDARY Comment: Tonsillectomy 03/06/07: UNLISTED LAPS PX HRNAP HERNIORRHAPHY HERNIOTOMY Current Outpatient Medications Medication Sig apixaban (ELIQUIS) 5 mg tab(s) Take 5 mg by mouth two times a day. nystatin (NYSTOP) powder Apply 1 application to affected area two times a day. PARoxetine (PAXIL) 40 mg tablet Take 1 tablet by mouth once daily. buPROPion SR (WELLBUTRIN SR) 150 mg 12 hr tablet Take 2 tablets PO in the AM and 1 tablet PO in the PM ergocalciferol 50,000 unit capsule (VITAMIN D2, DRISDOL) Take 1 capsule by mouth one time a week. blood sugar diagnostic (BLOOD GLUCOSE TEST) test strip Test blood sugar(s) 1 times daily. Dx: Other DM Code hypoglycemia e16.2 Insulin: No famotidine (PEPCID) 20 mg tablet Take 1 tablet by mouth two times a day. gabapentin (NEURONTIN) 300 mg capsule Take 1 capsule by mouth three times a day for 90 days. gabapentin (NEURONTIN) 100 mg capsule Take 1-2 capsules by mouth three times a day for 30 days. (Add to 300 mg capsule three times a day) ketoconazole (NIZORAL) 2 % shampoo Apply to affected area once daily as needed. ketoconazole (NIZORAL) 2 % cream APPLY TO THE AFFECTED AREA(S) at 600am and 1000pm venlafaxine ER (EFFEXOR XR) 37.5 mg 24 hr capsule Take 1 capsule by mouth once daily. carbamide peroxide (DEBROX) 6.5 % otic solution Use 5 Drops in the right ear once daily. MEDICATION, NON-DATABASE Stair lift polyethylene glycol 3350 17 gram packet Take 1 Packet by mouth once daily. Dissolve dose in 4 - 8 ounces of liquid and take as directed. senna-docusate (SENNA-S) 8.6-50 mg per tablet Take 1 tablet by mouth twice daily. (Patient not taking: Reported on 12/01/2023) montelukast (SINGULAIR) 10 mg tablet Take 1 tablet by mouth daily at bedtime. For allergies IFEREX 150 150 mg iron capsule TAKE 1 TABLET BY MOUTH EVERY DAY WITH MEALS (Patient not taking: Reported on 12/01/2023) ofloxacin (FLOXIN) 0.3 % otic solution Use 5 Drops in both ears twice daily. potassium chloride ER (K-DUR, KLOR-CON) 20 mEq tablet Take 20 mEq by mouth twice daily with meals. acetaminophen (TYLENOL 8 HOUR ORAL) Take 1,000 mg by mouth three times daily. jjhupdw-ustcuulhb-sts are D3 500 mg(1,250mg) -200 unit per tablet TWICE DAILY WITH MEALS carvedilol (COREG) 12.5 mg tablet TAKE 1 TABLET BY MOUTH TWICE DAILY. must administer with a meal/food. (Patient not taking: Reported on 12/01/2023) furosemide (LASIX) 40 mg tablet Take 40 mg by mouth once daily. VITAMIN B COMPLEX ORAL Take by mouth. COMPOUNDED PRESCRIPTION Jobst stocking knee high with zipper 20-30 mmHg Dx:R60.0, S72.002A Calcium Citrate-Vitamin D3 500 mg calcium -400 unit Chew Take 1 Each by mouth daily with food. (Patient not taking: Reported on 12/22/2023) albuterol 90 mcg/Actuation INHALATION Aero Inhale 2 Puffs as instructed four times daily. USE DIRECTED No current facility-administered medications for this visit. ALLERGIES Allergen Reacti (more content not included)... Normal [facility] Office Visit (AGHWW1 ) TASNEEM RIZZO I ([id number]) 1950 F Date Time Provider Department 03/21/24 10:15 AM BOLA DOBSON AGHWW1 During your visit today, we recorded the following information about you: Temperature Weight Height 98.2 degrees 80.3 kg 1.499 m Ollie Starks Tech 03/25/2024 7:20 AM Signed REVIEW OF SYSTEMS: GENERAL: Well developed, well nourished. No acute distress PAIN: Negative for pain, history of chronic pain or current treatment for chronic pain conditions CARDIOVASCULAR: Negative for chest pain, leg swelling and palpations. MSK: Negative for joint swelling SKIN: Negative for lesions, rash, itching, metal sensitivity NEURO: Numbness/tingling of extremties ENDOCRINE: Negative for diabetic associated symptoms HEMATOLOGY: Negative for excessive bleeding, clots, bleeding disorders. Bola Dobson MD 03/25/2024 7:20 AM Signed Patient presents with: Right Elbow - Follow Up, Pain HISTORY OF PRESENT ILLNESS TasneemQuoc Rizzo presents to the office for follow up of right total elbow arthroplasty. The patient is nearly 1 year out from the injury. She is overall doing well in her opinion. She is using the arm for most activities but does note some difficulty at times doing her hair. No new complaints on today's visit. Location: Right elbow Severity: 0-1 on a scale of 0-10 Duration of symptoms: Approximately 1 year Treatments tried include total elbow arthroplasty for fracture Symptoms have Improved REVIEW OF SYSTEMS Cardiovascular ROS:No history of chest pain, palpitation, orthopnea, cyanosis, pedal edema Neurologic ROS: Numbness and Tingling: No PAST MEDICAL HISTORY Past medical, surgical, family, and social histories have been reviewed and updated with the patient today and are located elsewhere in the medical record. Diabetes:No ALLERGIES ALLERGIES Allergen Reactions Maxidex [Dexamethas* Intolerance Nsaids (Non-Steroid* Intolerance not to take due to gastric bipass Boniva [Ibandronate] GI Upset Pain- hx gastric bypass. Intolerant to past biphosphonates. Sister with allergic response to reclast. Doxepin Intolerance AM hangover PHYSICAL EXAMINATION Temp 36.8 ?C (98.2 ?F) Ht 149.9 cm (4' 11 ) Wt 80.3 kg (177 lb) BMI 35.75 kg/m? Body mass index is 35.75 kg/m?. General Appearance Well appearing, alert, in no acute distress, well-hydrated, well nourished. Alert and oriented times: 3 Normal affect times: 3 Appears stated age and well nourished Gait and station:normal Right Upper Extremity Exam: Inspection shows no significant residual swelling Surgical incision is well-healed Tenderness to palpation: None along the incision or proximal and distal aspect of the prosthesis ROM: Elbow motion is approximately 20 to 130 degrees. Near full pronation/supination Wrist and hand motion within normal limits. Full composite fist Sensation intact median, radial, ulnar nerve distribution 2+ radial pulse REVIEW OF STUDIES X-rays 03/21/24 3 views of the right elbow demonstrate stable position of the elbow arthroplasty. The cement mantle appears intact without lucency on either the ulna nor the humerus. No other acute process noted. ASSESSMENT AND PLAN ASSESSMENT/PLAN: 1. Status post right elbow joint replacement - ICD9: V43.62, ICD10: Z96.621 - XR ELBOW SPECIAL VIEWS AP/LAT/OTHER RIGHT I reviewed the imaging with the patient. The patient has regained excellent motion, and is very happy with the results at 1 year. I recommended that we follow-up in another year to ensure stability and obtain x-rays. All of her questions were answered to her satisfaction. Bola Dobson MD Patient educated on lifetime lifting restrictions Patient instructed to call the office with questions or concerns. Allergies As of Date: 03/21/2024 Noted Allergy Reaction MAXIDEX (DEXAMETHASONE) 03/26/2005 5 - Intolerance NSAIDS (NON-STEROIDAL ANTI-INFLAM* 5 5 - Intolerance Comments: not to take due to gastric bipass BONIVA (IBANDRONATE) 12/19/2012 8 - GI Upset Comments: Pain- hx gastric bypass. Intolerant to past biphosphonates. Sister with allergic response to reclast. DOXEPIN 02/16/2008 5 - Intolerance Comments: AM hangover Date Reviewed: 03/21/2024 Reviewed by: Kim Cortez LPN - Fully Assessed Reason for Visit: Follow Up [171] Pain [78] Primary Visit Diagnosis:Status post right elbow joint replacement [Z96.621] Order(s):XR ELBOW SPECIAL VIEWS AP/LAT/OTHER RIGHT [2421179] Order #: [id number] Prescriptions as of 03/25/2024 - venlafaxine ER (EFFEXOR XR) 37.5 mg 24 hr capsule Take 1 capsule by mouth once daily. - apixaban (ELIQUIS) 5 mg tab(s) Take 5 mg by mouth two times a day. - nystatin (NYSTOP) powder Apply 1 application to affected area two times a day. - PARoxetine (PAXIL) 40 mg tablet Take 1 tablet by mouth once daily. (more content not included)... Normal [facility] Claude 03-21-2024 [facility] Telephone (FAMPWS) TASNEEM RIZZO I ([id number]) 1950 F Date Time Provider Department 03/21/24 [facility] During your visit today, we recorded the following information about you: Kei Pineda DO 03/21/2024 10:15 PM Signed Please call lab to see if TSH can be added to blood draw today This is ordered now DO Dee Mcintosh Linda M, LPN 03/22/2024 8:03 AM Signed Called lab services spoke with Bhargav , he checked and this was added. Allergies As of Date: 03/21/2024 Noted Allergy Reaction MAXIDEX (DEXAMETHASONE) 03/26/2005 5 - Intolerance NSAIDS (NON-STEROIDAL ANTI-INFLAM* 5 5 - Intolerance Comments: not to take due to gastric bipass BONIVA (IBANDRONATE) 12/19/2012 8 - GI Upset Comments: Pain- hx gastric bypass. Intolerant to past biphosphonates. Sister with allergic response to reclast. DOXEPIN 02/16/2008 5 - Intolerance Comments: AM hangover Date Reviewed: 03/21/2024 Reviewed by: Kim Cortez LPN - Fully Assessed Prescriptions as of 03/22/2024 - venlafaxine ER (EFFEXOR XR) 37.5 mg 24 hr capsule Take 1 capsule by mouth once daily. - apixaban (ELIQUIS) 5 mg tab(s) Take 5 mg by mouth two times a day. - nystatin (NYSTOP) powder Apply 1 application to affected area two times a day. - PARoxetine (PAXIL) 40 mg tablet Take 1 tablet by mouth once daily. - buPROPion SR (WELLBUTRIN SR) 150 mg 12 hr tablet Take 2 tablets PO in the AM and 1 tablet PO in the PM - ergocalciferol 50,000 unit capsule (VITAMIN D2, DRISDOL) Take 1 capsule by mouth one time a week. - blood sugar diagnostic (BLOOD GLUCOSE TEST) test strip Test blood sugar(s) 1 times daily. Dx: Other DM Code hypoglycemia e16.2 Insulin: No - famotidine (PEPCID) 20 mg tablet Take 1 tablet by mouth two times a day. - gabapentin (NEURONTIN) 300 mg capsule Take 1 capsule by mouth three times a day for 90 days. - gabapentin (NEURONTIN) 100 mg capsule Take 1-2 capsules by mouth three times a day for 30 days. (Add to 300 mg capsule three times a day) - ketoconazole (NIZORAL) 2 % shampoo Apply to affected area once daily as needed. - ketoconazole (NIZORAL) 2 % cream APPLY TO THE AFFECTED AREA(S) at 600am and 1000pm - carbamide peroxide (DEBROX) 6.5 % otic solution Use 5 Drops in the right ear once daily. - MEDICATION, NON-DATABASE Stair lift - polyethylene glycol 3350 17 gram packet Take 1 Packet by mouth once daily. Dissolve dose in 4 - 8 ounces of liquid and take as directed. - montelukast (SINGULAIR) 10 mg tablet Take 1 tablet by mouth daily at bedtime. For allergies - IFEREX 150 150 mg iron capsule TAKE 1 TABLET BY MOUTH EVERY DAY WITH MEALS - ofloxacin (FLOXIN) 0.3 % otic solution Use 5 Drops in both ears twice daily. - potassium chloride ER (K-DUR, KLOR-CON) 20 mEq tablet Take 20 mEq by mouth twice daily with meals. - acetaminophen (TYLENOL 8 HOUR ORAL) Take 1,000 mg by mouth three times daily. - orvoptt-yxdqgemzt-mlh rae D3 500 mg(1,250mg) -200 unit per tablet TWICE DAILY WITH MEALS - furosemide (LASIX) 40 mg tablet Take 40 mg by mouth once daily. - VITAMIN B COMPLEX ORAL Take by mouth. - COMPOUNDED PRESCRIPTION Jobst stocking knee high with zipper 20-30 mmHg Dx:R60.0, S72.002A - Calcium Citrate-Vitamin D3 500 mg calcium -400 unit Chew Take 1 Each by mouth daily with food. - albuterol 90 mcg/Actuation INHALATION Aero Inhale 2 Puffs as instructed four times daily. USE DIRECTED Problem List As Of Date 03/21/2024 Noted Resolved Cervicalgia [M54.2] 01/14/2006 Pain in Joint, Shoulder Region [M25.519] 01/14/2006 01/23/2010 Unspecified Osteoporosis [M81.0] 02/07/2006 SHOULDER REGION DIS NEC [M25.819] DISC DEGENERATION NOS [SHQ1319] ESOPHAGEAL REFLUX [K21.9] DEPRESSIVE DISORDER NEC [F32.89] Neck Sprain and Strain [S13.9XXA] 07/14/2006 01/23/2010 INCISIONAL HERNIA [K43.2] 12/30/2006 TOBACCO USE DISORDER [F17.200] 01/26/2007 Acute Bronchitis [J20.9] 09/18/2007 01/23/2010 CHRONIC PAIN NEC [G89.29] 12/12/2008 Spondylosis [M47.9] 01/23/2010 Cervical arthritis [M47.812] 05/20/2010 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90] 10/15/2010 Venous insufficiency (chronic) (peripheral) [I8*11/01/2010 Chronic obstructive pulmonary disease (HCC) [J4*05/10/2011 Respiratory infection [J98.8] 02/07/2012 02/07/2012 Arthritis of knee, left [M17.12] 02/07/2012 Arthritis of right knee [M17.11] 02/07/2012 Chronic pain [G89.29] 05/14/2013 Knee pain [M25.569] 05/14/2013 DDD (degenerative disc disease), cervical [M50.*05/14/2013 DDD (degenerative disc disease), lumbar [M51.36]05/14/2013 Cervical spondylosis [M47.812] 05/14/2013 Diffuse myofascial pain syndrome [M79.18] 05/14/2013 Lumbar spondylosis [M47.816] 05/14/2013 JIMMY (obstr (more content not included)... Normal [facility] Comprehensive metabolic 2000 panelon 03-21-2024 Albumin [Mass/Vol] 3.8 g/dL Low 3.9-4.9 [facility] Comment on above: Order Comment: Speci men Type: BLOOD SPECIMENOrdering Facility: [facility] Address: [address] [place] [address] Performed By: #### 1 9123-9, 3016-3, 54423-4 ####[facility] LABCLIA [id number] [facility] [id number] [address] [place] ALP [Catalytic activity/Vol] 122 U/L Normal 34-123 [facility] Comment on above: Order Comment: Speci men Type: BLOOD SPECIMENOrdering Facility: [facility] Address: [address] [place], [place] [address] Performed By: #### 1 9123-9, 3, 67651-8 ####[facility] LABCLIA [id number] [address] [address] [place] ALT [Catalytic activity/Vol] 14 U/L Normal 7-38 [facility] Comment on above: Order Comment: Speci men Type: BLOOD SPECIMENOrdering Facility: [facility] Address: [address] [place], [place] [address] Performed By: #### 1 9123-9, 3, 77083-8 ####[facility] LABCLIA [id number] [place] [address] [place] Anion gap [Moles/Vol] 9 mmol/L Normal 8-15 [facility] Comment on above: Order Comment: Speci men Type: BLOOD SPECIMENOrdering Facility: [facility] Address: [address] [place], [place] [address] Performed By: #### 1 9123-9, 3, 62520-5 ####[facility] LABCLIA [id number] [place] [address] [place] AST [Catalytic activity/Vol] 22 U/L Normal 13-35 [facility] Comment on above: Order Comment: Speci men Type: BLOOD SPECIMENOrdering Facility: [facility] Address: [address] [place], [place] [address] Performed By: #### 1 9123-9, 3, 14027-5 ####[facility] LABCLIA [id number] [place] [address] [place] Bilirubin [Mass/Vol] 0.8 mg/dL Normal 0.2-1.3 [facility] Comment on above: Order Comment: Speci men Type: BLOOD SPECIMENOrdering Facility: [facility] Address: [address] [place], [place] [address] Performed By: #### 1 9123-9, 3015-3, 65844-6 ####[facility] LABCLIA [id number] [place] [address] [place] Calcium [Mass/Vol] 9.1 mg/dL Normal 8.5-10.2 [facility] Comment on above: Order Comment: Speci men Type: BLOOD SPECIMENOrdering Facility: [facility] Address: [address] [place] [address] Performed By: #### 1 9123-9, 3015-3, 71934-4 ####[facility] LABCLIA [id number] [place] [address] [place] Chloride [Moles/Vol] 106 mmol/L Normal 98-107 [facility] Comment on above: Order Comment: Speci men Type: BLOOD SPECIMENOrdering Facility: [facility] Address: [address] [place], [place] [address] Performed By: #### 1 9123-9, 3015-3, 30476-1 ####[facility] LABIA [id number] [place] [address] [place] CO2 [Moles/Vol] 28 mmol/L Normal 22-30 [facility] Comment on above: Order Comment: Speci men Type: BLOOD SPECIMENOrdering Facility: [facility] Address: [address] [place] [address] Performed By: #### 1 9123-9, 3015-3, 47312-7 ####[facility] LABCLIA [id number] [place] [address] [place] Creatinine [Mass/Vol] 0.91 mg/dL Normal 0.58-0.96 [facility] Comment on above: Order Comment: Speci men Type: BLOOD SPECIMENOrdering Facility: [facility] Address: [address] [place], [place] [address] Performed By: #### 1 9123-9, 3016-3, 14314-7 ####[facility] LABCLIA [id number] [place] [address] [place] Creatinine and Glomerular filtration rate.predicted panel (S/P/Bld) 66 mL/min/1.73m??? Normal >=60 [facility] Comment on above: Order Comment: Fela lopez Type: BLOOD SPECIMENOrdering Facility: [facility] Address: [address] [place] [address] Result Comment: Tila mated Glomerular Filtration Rate (eGFR) is calculated using the 2020 CKD-EPI creatinine equation. This equation utilizes serum creatinine, sex, and age as parameters. The creatinine assay has traceable calibration to isotope dilution-mass spectrometry. Refer to KDIGO guidelines for clinical interpretation. In patients with unstable renal function, e.g. those with acute kidney injury, the eGFR may not accurately reflect actual GFR. Performed By: #### 1 9123-9, 3016-3, 29669-4 ####[facility] LABCLIA [id number] [place] [address] [place] Glucose [Mass/Vol] 74 mg/dL Normal 74-99 [facility] Comment on above: Order Comment: Fela lopez Type: BLOOD SPECIMENOrdering Facility: [facility] Address: [address] [place] [address] Result Comment: The [place] [employer] (ADA) provides guidance for cutoff values for fasting glucose and random glucose. The ADA defines fasting as no caloric intake for at least 8 hours. Fasting plasma glucose results between 100 to 125 mg/dL indicate increased risk for diabetes (prediabetes). Fasting plasma glucose results greater than or equal to 126 mg/dL meet the criteria for diagnosis of diabetes. In the absence of unequivocal hyperglycemia, results should be confirmed by repeat testing. In a patient with classic symptoms of hyperglycemia or hyperglycemic crisis, random plasma glucose results greater than or equal to 200 mg/dL meet the criteria for diagnosis of diabetes. Reference: Standards of Medical Care in Diabetes 2016, [place] [employer] Association. Diabetes Care. 2016.39(Suppl 1). Performed By: #### 1 91239, 3, ####[facility] LABCLIA [id number] [address] [address] [place] Potassium [Moles/Vol] 4.4 mmol/L Normal 3.7-5.1 [facility] Comment on above: Order Comment: Speci men Type: BLOOD SPECIMENOrdering Facility: [facility] Address: [address] [place] [address] Performed By: #### 1 9123-9, 3, ####[facility] LABCLIA [id number] [place] [address] [place] Protein [Mass/Vol] 6.3 g/dL Normal 6.3-8.0 [facility] Comment on above: Order Comment: Speci men Type: BLOOD SPECIMENOrdering Facility: [facility] Address: [address] [place] [address] Performed By: #### 1 9123-9, 3015-09, ####[facility] LABCLIA [id number] [place] [address] [place] Sodium [Moles/Vol] 143 mmol/L Normal 136-144 [facility] Comment on above: Order Comment: Speci men Type: BLOOD SPECIMENOrdering Facility: [facility] Address: [address] [place], [place] [address] Performed By: #### 1 9123-9, 3015-09, ####[facility] LABCLIA [id number] [address] [address] [place] Urea nitrogen [Mass/Vol] 15 mg/dL Normal 7-21 [facility] Comment on above: Order Comment: Speci men Type: BLOOD SPECIMENOrdering Facility: [facility] Address: [address] [place], [place] [address] Performed By: #### 1 9123-9, 3, 28845-6 ####[facility] LABCLIA [id number] [place] [address] [place] Magnesium SerPl-mCncon 03-21 Magnesium [Mass/Vol] 2.2 mg/dL Normal 1.7-2.3 [facility] Comment on above: Order Comment: Speci men Type: BLOOD SPECIMENOrdering Facility: [facility] Address: [address] [place] [address] Performed By: #### 1 9123-9, 3016-3, 85987-7 ####[facility] [id number] [place] [address] [place] PTH-Intact SerPl-mCncon 03-11 Parathyrin.intact [Mass/Vol] 102 pg/mL High 15-65 [facility] Comment on above: Order Comment: Speci men Type: BLOOD SPECIMENOrdering Facility: [facility] Address: [address] [place] [address] Performed By: #### 2 132-9, 54480-8, 2731-8 ####[facility] [id number] [place] [address] [place] Prealb SerPl-mCncon 03-21-20 24 Prealbumin [Mass/Vol] 19 mg/dL Normal 17-36 [facility] Comment on above: Order Comment: Speci men Type: BLOOD SPECIMENOrdering Facility: [facility] Address: [address] [place] [address] Performed By: #### 2 132-9, 75206-5, 2731-8 ####[facility] [id number] [place] [id number] [place] TSH SerPl-aCncon 03-21-2024 TSH Qn 9.130 m[IU]/L High 0.270-4.200 [facility] Comment on above: Order Comment: Speci men Type: BLOOD SPECIMENOrdering Facility: [facility] Address: [address] [place] [address] Performed By: #### 1 9123-9, 3016-3, 71060-9 ####[facility] LABCLIA [id number] [place] [address] [place] Vit B12 SerPl-ncon 03-21- 024 Cobalamin (Vitamin B12) [Mass/Vol] pg/mL Low 232-1245 [facility] Comment on above: Order Comment: Speci men Type: BLOOD SPECIMENOrdering Facility: [facility] Address: [address] [place] [address] Result Comment: Resu lt rechecked. Performed By: #### 2 132-9, 37822-2, 2731-8 ####[facility] [facility] [id number] [place] [address] [place] CNPNon 02-13-2024 CNPN Telephone (FAMPWS) TASNEEM RIZZO I ([id number]) 1950 F Date Time Provider Department 02/13/24 [facility] During your visit today, we recorded the following information about you: Kim Houston 02/13/2024 8:47 AM Signed Patient said Dr. Pineda recently found she has slow growing Alzheimer's . Patient said she offered her medication if needed. Patient said she is shaky and thinks she should start the medication. She did not know the name of the medication. Uses [facility] in [place]. Would like a call back at [phone] when rx has been sent. Kei Pineda DO 02/20/2024 7:52 AM Signed I haven't seen patient. She was seen by Phani. Would first recommend evaluation by Neurologist DO Sean Mcintosh Amanda, RN 02/20/2024 12:50 PM Signed Pt called and is notified of providers results and instructions. Pt voices understanding. Transferred to scheduled to set up appt with Neurology. Jayde Estrada RN Allergies As of Date: 02/13/2024 Noted Allergy Reaction MAXIDEX (DEXAMETHASONE) 03/26/2005 5 - Intolerance NSAIDS (NON-STEROIDAL ANTI-INFLAM* 5 5 - Intolerance Comments: not to take due to gastric bipass BONIVA (IBANDRONATE) 12/19/2012 8 - GI Upset Comments: Pain- hx gastric bypass. Intolerant to past biphosphonates. Sister with allergic response to reclast. DOXEPIN 02/16/2008 5 - Intolerance Comments: AM hangover Date Reviewed: 12/22/2023 Reviewed by: Lizzie Meier APRN.BULKING MACHINE OPERATOR - Fully Assessed Reason for Visit: Medication Request [138] Primary Visit Diagnosis:Cognitive impairment [R41.89] Order(s):CONSULT TO NEUROLOGY [9019] Order #: [id number]: 1 FUTURE Prescriptions as of 02/20/2024 - nystatin (NYSTOP) powder Apply 1 application to affected area two times a day. - PARoxetine (PAXIL) 40 mg tablet Take 1 tablet by mouth once daily. - buPROPion SR (WELLBUTRIN SR) 150 mg 12 hr tablet Take 2 tablets PO in the AM and 1 tablet PO in the PM - ergocalciferol 50,000 unit capsule (VITAMIN D2, DRISDOL) Take 1 capsule by mouth one time a week. - blood sugar diagnostic (BLOOD GLUCOSE TEST) test strip Test blood sugar(s) 1 times daily. Dx: Other DM Code hypoglycemia e16.2 Insulin: No - famotidine (PEPCID) 20 mg tablet Take 1 tablet by mouth two times a day. - gabapentin (NEURONTIN) 300 mg capsule Take 1 capsule by mouth three times a day for 90 days. - gabapentin (NEURONTIN) 100 mg capsule Take 1-2 capsules by mouth three times a day for 30 days. (Add to 300 mg capsule three times a day) - ketoconazole (NIZORAL) 2 % shampoo Apply to affected area once daily as needed. - ketoconazole (NIZORAL) 2 % cream APPLY TO THE AFFECTED AREA(S) at 600am and 1000pm - venlafaxine ER (EFFEXOR XR) 37.5 mg 24 hr capsule Take 1 capsule by mouth once daily. - carbamide peroxide (DEBROX) 6.5 % otic solution Use 5 Drops in the right ear once daily. - MEDICATION, NON-DATABASE Stair lift - polyethylene glycol 3350 17 gram packet Take 1 Packet by mouth once daily. Dissolve dose in 4 - 8 ounces of liquid and take as directed. - senna-docusate (SENNA-S) 8.6-50 mg per tablet Take 1 tablet by mouth twice daily. - montelukast (SINGULAIR) 10 mg tablet Take 1 tablet by mouth daily at bedtime. For allergies - IFEREX 150 150 mg iron capsule TAKE 1 TABLET BY MOUTH EVERY DAY WITH MEALS - ofloxacin (FLOXIN) 0.3 % otic solution Use 5 Drops in both ears twice daily. - potassium chloride ER (K-DUR, KLOR-CON) 20 mEq tablet Take 20 mEq by mouth twice daily with meals. - acetaminophen (TYLENOL 8 HOUR ORAL) Take 1,000 mg by mouth three times daily. - vxrzwlz-eikrdshcw-qfg rae D3 500 mg(1,250mg) -200 unit per tablet TWICE DAILY WITH MEALS - carvedilol (COREG) 12.5 mg tablet TAKE 1 TABLET BY MOUTH TWICE DAILY. must administer with a meal/food. - furosemide (LASIX) 40 mg tablet Take 40 mg by mouth once daily. - VITAMIN B COMPLEX ORAL Take by mouth. - COMPOUNDED PRESCRIPTION Jobst stocking knee high with zipper 20-30 mmHg Dx:R60.0, S72.002A - Calcium Citrate-Vitamin D3 500 mg calcium -400 unit Chew Take 1 Each by mouth daily with food. - albuterol 90 mcg/Actuation INHALATION Aero Inhale 2 Puffs as instructed four times daily. USE DIRECTED Problem List As Of Date 02/13/2024 Noted Resolved Cervicalgia [M54.2] 01/14/2006 Pain in Joint, Shoulder Region [M25.519] 01/14/2006 01/23/2010 Unspecified Osteoporosis [M81.0] 02/07/2006 SHOULDER REGION DIS NEC [M25.819] DISC DEGENERATION NOS [TGW5335] ESOPHAGEAL REFLUX [K21.9] DEPRESSIVE DISORDER NEC [F32.89] Neck Sprain and Strain [S13.9XXA] 07/14/2006 01/23/2010 INCISIONAL HERNIA [K43.2] 12/30/2006 TOBACCO USE DISORDER [F17.200] 01/26/2007 Acute Bronchitis [J20.9] 09/18/2007 01/23/2010 CHRONIC PAIN NEC [G89.29] 12/12/2008 Spondylosis [M47.9] 01/23/2010 Cervical arthritis [M47.812] 1 (more content not included)... [facility] TASNEEM RIZZO I ([id number]) 1950 F Date Time Provider Department 12/27/23 [facility] During your visit today, we recorded the following information about you: Gerardo Milligan APRN.RAY 12/27/2023 4:38 PM Signed Please let her know we received her labs. Overall they look good. Her hemoglobin has improved from previously. It is just slightly low, but is at her baseline, so no concerns. No other concerns. Gerardo Milligan APRN.Anabelle Ortega MA 12/27/2023 4:43 PM Signed Tried to reach pt, line just rings. Unable to leave message or call back number. ADAN Finnegan Rachel L, MA 12/28/2023 11:50 AM Signed Attempted to reach patient; no answer and unable to leave VM. ADAN Castañeda Rilee, MA 12/29/2023 9:08 AM Signed Have attempted to reach pt multiple times, with no call back. Letter mailed to pt notifying her of results below. If questions to contact the office. ADAN Pham Beth, LPN 01/02/2024 9:22 AM Signed Patient returned call and said she is having problems with her home phone, not to call that number. Went over results, notes from Kera Milligan NP with understanding. Allergies As of Date: 12/27/2023 Noted Allergy Reaction MAXIDEX (DEXAMETHASONE) 03/26/2005 5 - Intolerance NSAIDS (NON-STEROIDAL ANTI-INFLAM* 5 5 - Intolerance Comments: not to take due to gastric bipass BONIVA (IBANDRONATE) 12/19/2012 8 - GI Upset Comments: Pain- hx gastric bypass. Intolerant to past biphosphonates. Sister with allergic response to reclast. DOXEPIN 02/16/2008 5 - Intolerance Comments: AM hangover Date Reviewed: 12/22/2023 Reviewed by: Lizzie Meier APRN.BULKING MACHINE OPERATOR - Fully Assessed Reason for Visit: Results [95] Prescriptions as of 01/02/2024 - nystatin (NYSTOP) powder Apply 1 application to affected area two times a day. - PARoxetine (PAXIL) 40 mg tablet Take 1 tablet by mouth once daily. - buPROPion SR (WELLBUTRIN SR) 150 mg 12 hr tablet Take 2 tablets PO in the AM and 1 tablet PO in the PM - clotrimazole (LOTRIMIN) 1 % cream Apply to affected area two times a day. - ergocalciferol 50,000 unit capsule (VITAMIN D2, DRISDOL) Take 1 capsule by mouth one time a week. - blood sugar diagnostic (BLOOD GLUCOSE TEST) test strip Test blood sugar(s) 1 times daily. Dx: Other DM Code hypoglycemia e16.2 Insulin: No - famotidine (PEPCID) 20 mg tablet Take 1 tablet by mouth two times a day. - gabapentin (NEURONTIN) 300 mg capsule Take 1 capsule by mouth three times a day for 90 days. - gabapentin (NEURONTIN) 100 mg capsule Take 1-2 capsules by mouth three times a day for 30 days. (Add to 300 mg capsule three times a day) - ketoconazole (NIZORAL) 2 % shampoo Apply to affected area once daily as needed. - ketoconazole (NIZORAL) 2 % cream APPLY TO THE AFFECTED AREA(S) at 600am and 1000pm - venlafaxine ER (EFFEXOR XR) 37.5 mg 24 hr capsule Take 1 capsule by mouth once daily. - carbamide peroxide (DEBROX) 6.5 % otic solution Use 5 Drops in the right ear once daily. - MEDICATION, NON-DATABASE Stair lift - polyethylene glycol 3350 17 gram packet Take 1 Packet by mouth once daily. Dissolve dose in 4 - 8 ounces of liquid and take as directed. - senna-docusate (SENNA-S) 8.6-50 mg per tablet Take 1 tablet by mouth twice daily. - montelukast (SINGULAIR) 10 mg tablet Take 1 tablet by mouth daily at bedtime. For allergies - IFEREX 150 150 mg iron capsule TAKE 1 TABLET BY MOUTH EVERY DAY WITH MEALS - ofloxacin (FLOXIN) 0.3 % otic solution Use 5 Drops in both ears twice daily. - potassium chloride ER (K-DUR, KLOR-CON) 20 mEq tablet Take 20 mEq by mouth twice daily with meals. - acetaminophen (TYLENOL 8 HOUR ORAL) Take 1,000 mg by mouth three times daily. - eurhdhs-zlfiasujr-ylv rae D3 500 mg(1,250mg) -200 unit per tablet TWICE DAILY WITH MEALS - carvedilol (COREG) 12.5 mg tablet TAKE 1 TABLET BY MOUTH TWICE DAILY. must administer with a meal/food. - furosemide (LASIX) 40 mg tablet Take 40 mg by mouth once daily. - VITAMIN B COMPLEX ORAL Take by mouth. - COMPOUNDED PRESCRIPTION Jobst stocking knee high with zipper 20-30 mmHg Dx:R60.0, S72.002A - Calcium Citrate-Vitamin D3 500 mg calcium -400 unit Chew Take 1 Each by mouth daily with food. - albuterol 90 mcg/Actuation INHALATION Aero Inhale 2 Puffs as instructed four times daily. 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 Normal [facility] CBC W Auto Differential pane l (Bld)on 12-23-2023 Basophils (Bld) [#/Vol] 0.04 10*3/uL Normal <0.11 [facility] Comment on above: Order Comment: Speci men Type: BLOOD SPECIMENOrdering Facility: [facility] Address: [address] [place] [address] Performed By: #### 5 7021-8 ####[facility] [id number] [place] [address] [place] Basophils/100 WBC (Bld) 0.8 % Normal [facility] Comment on above: Order Comment: Speci men Type: BLOOD SPECIMENOrdering Facility: [facility] Address: [address] [place] [address] Performed By: #### 5 7021-8 ####[facility] [id number] [place] [address] [place] Differential cell count method Nom (Bld) Auto Normal [facility] Comment on above: Order Comment: Speci men Type: BLOOD SPECIMENOrdering Facility: [facility] Address: [address] [place] [address] Performed By: #### 5 7021-8 ####[facility] [id number] [place] [address] [place] Eosinophils (Bld) [#/Vol] 0.07 10*3/uL Normal <0.46 [facility] Comment on above: Order Comment: Speci men Type: BLOOD SPECIMENOrdering Facility: [facility] Address: [address] [place] [address] Performed By: #### 5 7021-8 ####[facility] [id number] [place] [address] [place] Eosinophils/100 WBC (Bld) 1.4 % Normal [facility] Comment on above: Order Comment: Speci men Type: BLOOD SPECIMENOrdering Facility: [facility] Address: [address] [place] [address] Performed By: #### 5 7021-8 ####[facility] [id number] [place] [address] [place] Erythrocyte distribution width (RBC) [Ratio] 16.4 % High 11.5-15.0 [facility] Comment on above: Order Comment: Speci men Type: BLOOD SPECIMENOrdering Facility: [facility] Address: [address] [place] [address] Performed By: #### 5 7021-8 ####[facility] [id number] [place] [address] [place] Hematocrit (Bld) [Volume fraction] 35.8 % Low 36.0-46.0 [facility] Comment on above: Order Comment: Speci men Type: BLOOD SPECIMENOrdering Facility: [facility] Address: [address] [place] [address] Performed By: #### 5 7021-8 ####[facility] [id number] [place] [address] [place] Hemoglobin (Bld) [Mass/Vol] 11.1 g/dL Low 11.5-15.5 [facility] Comment on above: Order Comment: Speci men Type: BLOOD SPECIMENOrdering Facility: [facility] Address: [address] [place] [address] Performed By: #### 5 7021-8 ####[facility] [id number] [place] [address] [place] Immature granulocytes (Bld) [#/Vol] 10*3/uL Normal <0.10 [facility] Comment on above: Order Comment: Speci men Type: BLOOD SPECIMENOrdering Facility: [facility] Address: [address] [place] [address] Performed By: #### 5 7021-8 ####[facility] [id number] [place] [address] [place] Immature granulocytes/100 WBC (Bld) 0.4 % Normal [facility] Comment on above: Order Comment: Speci men Type: BLOOD SPECIMENOrdering Facility: [facility] Address: [address] [place] [address] Performed By: #### 5 7021-8 ####[facility] [id number] [place] [address] [place] Lymphocytes (Bld) [#/Vol] 2.11 10*3/uL Normal 1.00-4.00 [facility] Comment on above: Order Comment: Speci men Type: BLOOD SPECIMENOrdering Facility: [facility] Address: [address] [place] [address] Performed By: #### 5 7021-8 ####[facility] [id number] [place] [address] [place] Lymphocytes/100 WBC (Bld) 43.1 % Normal [facility] Comment on above: Order Comment: Speci men Type: BLOOD SPECIMENOrdering Facility: [facility] Address: [address] [place] [address] Performed By: #### 5 7021-8 ####[facility] [id number] [place] [address] [place] MCH (RBC) [Entitic mass] 26.9 pg Normal 26.0-34.0 [facility] Comment on above: Order Comment: Speci men Type: BLOOD SPECIMENOrdering Facility: [facility] Address: [address] [place] [address] Performed By: #### 5 7021-8 ####[facility] [id number] [place] [address] [place] MCHC (RBC) [Mass/Vol] 31.0 g/dL Normal 30.5-36.0 [facility] Comment on above: Order Comment: Speci men Type: BLOOD SPECIMENOrdering Facility: [facility] Address: [address] [place] [address] Performed By: #### 5 7021-8 ####[facility] [id number] [place] [address] [place] MCV (RBC) [Entitic vol] 86.7 fL Normal 80.0-100.0 [facility] Comment on above: Order Comment: Speci men Type: BLOOD SPECIMENOrdering Facility: [facility] Address: [address] [place] [address] Performed By: #### 5 7021-8 ####[facility] [id number] [place] [address] [place] Monocytes (Bld) [#/Vol] 0.42 10*3/uL Normal <0.87 [facility] Comment on above: Order Comment: Speci men Type: BLOOD SPECIMENOrdering Facility: [facility] Address: [address] [place] [address] Performed By: #### 5 7021-8 ####[facility] [id number] [place] [address] [place] Monocytes/100 WBC (Bld) 8.6 % Normal [facility] Comment on above: Order Comment: Speci men Type: BLOOD SPECIMENOrdering Facility: [facility] Address: [address] [place] [address] Performed By: #### 5 7021-8 ####[facility] [id number] [place] [address] [place] Neutrophils (Bld) [#/Vol] 2.23 10*3/uL Normal 1.45-7.50 [facility] Comment on above: Order Comment: Speci men Type: BLOOD SPECIMENOrdering Facility: [facility] Address: [address] [place] [address] Performed By: #### 5 7021-8 ####[facility] [id number] [place] [address] [place] Neutrophils/100 WBC (Bld) 45.7 % Normal [facility] Comment on above: Order Comment: Speci men Type: BLOOD SPECIMENOrdering Facility: [facility] Address: [address] [place] [address] Performed By: #### 5 7021-8 ####[facility] [id number] [place] [address] [place] Nucleated RBC (Bld) [#/Vol] 10*3/uL Normal <0.01 [facility] Comment on above: Order Comment: Speci men Type: BLOOD SPECIMENOrdering Facility: [facility] Address: [address] [place] [address] Performed By: #### 5 7021-8 ####[facility] [id number] [place] [address] [place] Nucleated RBC/100 WBC (Bld) [Ratio] 0.0 /100 WBC Normal [facility] Comment on above: Order Comment: Speci men Type: BLOOD SPECIMENOrdering Facility: [facility] Address: [address] [place] [address] Performed By: #### 5 7021-8 ####[facility] [id number] [place] [address] [place] Platelet mean volume (Bld) [Entitic vol] 10.5 fL Normal 9.0-12.7 [facility] Comment on above: Order Comment: Speci men Type: BLOOD SPECIMENOrdering Facility: [facility] Address: [address] [place] [address] Performed By: #### 5 7021-8 ####[facility] [id number] [place] [address] [place] Platelets (Bld) [#/Vol] 260 10*3/uL Normal 150-400 [facility] Comment on above: Order Comment: Speci men Type: BLOOD SPECIMENOrdering Facility: [facility] Address: [address] [place] [address] Performed By: #### 5 7021-8 ####[facility] [id number] [place] [address] [place] RBC (Bld) [#/Vol] 4.13 10*6/uL Normal 3.90-5.20 [facility] Comment on above: Order Comment: Speci men Type: BLOOD SPECIMENOrdering Facility: [facility] Address: [address] [place] [address] Performed By: #### 5 7021-8 ####[facility] [id number] [place] [address] [place] WBC (Bld) [#/Vol] 4.89 10*3/uL Normal 3.70-11.00 [facility] Comment on above: Order Comment: Speci men Type: BLOOD SPECIMENOrdering Facility: [facility] Address: [address] [place] [address] Performed By: #### 5 7021-8 ####[facility] [id number] [place] [address] [place] Comprehensive metabolic 2000 panelon 12-23-2023 Albumin [Mass/Vol] 3.6 g/dL Low 3.9-4.9 [facility] Comment on above: Order Comment: Speci men Type: BLOOD SPECIMENOrdering Facility: [facility] Address: [address] [place] [address] Performed By: #### 2 4323-8, 62602-8 ####[facility] [id number] [place] [address] [place] ALP [Catalytic activity/Vol] 105 U/L Normal 34-123 [facility] Comment on above: Order Comment: Speci men Type: BLOOD SPECIMENOrdering Facility: [facility] Address: [address] [place] [id number] Performed By: #### 2 4323-8, 35996-9 ####[facility] [id number] [place] [id number] [place] ALT [Catalytic activity/Vol] 20 U/L Normal 7-38 [facility] Comment on above: Order Comment: Speci men Type: BLOOD SPECIMENOrdering Facility: [facility] Address: [address] [place] [address] Performed By: #### 2 4323-8, 52411-7 ####[facility] [id number] [place] [address] [place] Anion gap [Moles/Vol] 7 mmol/L Low 8-15 [facility] Comment on above: Order Comment: Speci men Type: BLOOD SPECIMENOrdering Facility: [facility] Address: [address] [place] [address] Performed By: #### 2 4323-8, 67930-3 ####[facility] [id number] [place] [address] [place] AST [Catalytic activity/Vol] 31 U/L Normal 13-35 [facility] Comment on above: Order Comment: Speci men Type: BLOOD SPECIMENOrdering Facility: [facility] Address: [address] [place] [id number] Performed By: #### 2 4323-8, 57303-6 ####[facility] [id number] [place] [address] [place] Bilirubin [Mass/Vol] 0.7 mg/dL Normal 0.2-1.3 [facility] Comment on above: Order Comment: Speci men Type: BLOOD SPECIMENOrdering Facility: [facility] Address: [address] [place], [place] [address] Performed By: #### 2 4323-8, 32017-9 ####[facility] [id number] [address] [address] [place] Calcium [Mass/Vol] 9.1 mg/dL Normal 8.5-10.2 [facility] Comment on above: Order Comment: Speci men Type: BLOOD SPECIMENOrdering Facility: [facility] Address: [address] [place] [address] Performed By: #### 2 432-8, 24987-5 ####[facility] [id number] [place] [id number] [place] Chloride [Moles/Vol] 105 mmol/L Normal 98-107 [facility] Comment on above: Order Comment: Speci men Type: BLOOD SPECIMENOrdering Facility: [facility] Address: [address] [place] [address] Performed By: #### 2 4328, ####[facility] [id number] [place] [address] [place] CO2 [Moles/Vol] 30 mmol/L Normal 22-30 [facility] Comment on above: Order Comment: Speci men Type: BLOOD SPECIMENOrdering Facility: [facility] Address: [address] [place] [address] Performed By: #### 2 4323-8, ####[facility] [id number] [place] [id number] [place] Creatinine [Mass/Vol] 0.71 mg/dL Normal 0.58-0.96 [facility] Comment on above: Order Comment: Speci men Type: BLOOD SPECIMENOrdering Facility: [facility] Address: [address] [place] [address] Performed By: #### 2 4323-8, 82163-7 ####[facility] [id number] [place] [id number] [place] Creatinine and Glomerular filtration rate.predicted panel (S/P/Bld) 89 mL/min/1.73m??? Normal >=60 [facility] Comment on above: Order Comment: Fela lopez Type: BLOOD SPECIMENOrdering Facility: [facility] Address: [address] [place] [address] Result Comment: Tila mated Glomerular Filtration Rate (eGFR) is calculated using the 2020 CKD-EPI creatinine equation. This equation utilizes serum creatinine, sex, and age as parameters. The creatinine assay has traceable calibration to isotope dilution-mass spectrometry. Refer to KDIGO guidelines for clinical interpretation. In patients with unstable renal function, e.g. those with acute kidney injury, the eGFR may not accurately reflect actual GFR. Performed By: #### 2 4323-8, 27215-4 ####[facility] [id number] [place] [address] [place] Glucose [Mass/Vol] 84 mg/dL Normal 74-99 [facility] Comment on above: Order Comment: Fela lopez Type: BLOOD SPECIMENOrdering Facility: [facility] Address: [address] [place] [address] Result Comment: The [place] [employer] (ADA) provides guidance for cutoff values for fasting glucose and random glucose. The ADA defines fasting as no caloric intake for at least 8 hours. Fasting plasma glucose results between 100 to 125 mg/dL indicate increased risk for diabetes (prediabetes). Fasting plasma glucose results greater than or equal to 126 mg/dL meet the criteria for diagnosis of diabetes. In the absence of unequivocal hyperglycemia, results should be confirmed by repeat testing. In a patient with classic symptoms of hyperglycemia or hyperglycemic crisis, random plasma glucose results greater than or equal to 200 mg/dL meet the criteria for diagnosis of diabetes. Reference: Standards of Medical Care in Diabetes 2016, [place] [employer] Association. Diabetes Care. 2016.39(Suppl 1). Performed By: #### 2 4323-8, 18490-9 ####[facility] LABCLIA [id number] [place] [address] [place] Potassium [Moles/Vol] 4.4 mmol/L Normal 3.7-5.1 [facility] Comment on above: Order Comment: Speci men Type: BLOOD SPECIMENOrdering Facility: [facility] Address: [address] [place] [address] Performed By: #### 2 4323-8, 84974-2 ####[facility] LABCLIA [id number] [place] [address] [place] Protein [Mass/Vol] 5.8 g/dL Low 6.3-8.0 [facility] Comment on above: Order Comment: Speci men Type: BLOOD SPECIMENOrdering Facility: [facility] Address: [address] [place] [address] Performed By: #### 2 4323-8, 57146-9 ####[facility] LABCLIA [id number] [place] [address] [place] Sodium [Moles/Vol] 142 mmol/L Normal 136-144 [facility] Comment on above: Order Comment: Speci men Type: BLOOD SPECIMENOrdering Facility: [facility] Address: [address] [place] [address] Performed By: #### 2 4323-8, 69053-8 ####[facility] LABCLIA [id number] [place] [address] [place] Urea nitrogen [Mass/Vol] 16 mg/dL Normal 7-21 [facility] Comment on above: Order Comment: Speci men Type: BLOOD SPECIMENOrdering Facility: [facility] Address: [address] [place] [address] Performed By: #### 2 4323-8, 32366-6 ####[facility] LABCLIA [id number] [place] [address] [place] HbA1c (Bld)on 12-23-2023 Average glucose Estimated from glycated hemoglobin (Bld) [Mass/Vol] 114 mg/dL Normal [facility] Comment on above: Order Comment: Speci men Type: BLOOD SPECIMENOrdering Facility: [facility] Address: [address] [place] [address] Result Comment: eAG: (Estimated average glucose) is a calculated value from HgbA1c and is sales representative consultant of the average blood glucose level in the last 2-3 month period. Performed By: #### 5 5454-3 ####[facility] LABCLIA [id number] [place] [address] [place] HbA1c (Bld) [Mass fraction] 5.6 % Normal 4.3-5.6 [facility] Comment on above: Order Comment: Speci men Type: BLOOD SPECIMENOrdering Facility: [facility] Address: [address] [place] [address] Result Comment: [place] Diabetes Association guidelines indicate that patients with HgbA1c in the range 5.7-6.4% are at increased risk for development of diabetes, and intervention by lifestyle modification may be beneficial. HgbA1c greater or equal to 6.5% is considered diagnostic of diabetes. Performed By: #### 5 5454-3 ####[facility] LABCLIA [id number] [place] [address] [place] Lipid 1996 panelon 4 Cholesterol [Mass/Vol] 126 mg/dL Normal <200 [facility] Comment on above: Order Comment: Speci men Type: BLOOD SPECIMENOrdering Facility: [facility] Address: [address] [place] [address] Result Comment: <200 mg/dL, Desirable 200-239 mg/dL, Borderline high >239 mg/dL, High Performed By: #### 2 4323-8, 56095-0 ####[facility] LABIA [id number] [place] [address] [place] Cholesterol in HDL [Mass/Vol] 36 mg/dL Low >39 [facility] Comment on above: Order Comment: Speci men Type: BLOOD SPECIMENOrdering Facility: [facility] Address: [address] [place] [address] Result Comment: 40-5 9 mg/dL, Acceptable >59 mg/dL, High: Negative risk factor for coronary heart disease <40 mg/dL, Low: Positive risk factor for coronary heart disease Performed By: #### 2 4323-8, 80812-2 ####[facility] LABCLIA [id number] [address] [place] Cholesterol in LDL [Mass/Vol] 80 mg/dL Normal <100 [facility] Comment on above: Order Comment: Speci men Type: BLOOD SPECIMENOrdering Facility: [facility] Address: [address] [place] [address] Result Comment: <100 mg/dL, Optimal 100-129 mg/dL, Near optimal/above optimal 130-159 mg/dL, Borderline high 160-189 mg/dL, High >189 mg/dL, Very high Secondary prevention optimal LDL Cholesterol levels are recommended to be < 70 mg/dL Performed By: #### 2 4323-8, 56744-5 ####[facility] LABCLIA [id number] [address] [place] Cholesterol in LDL/Cholesterol in HDL [Mass ratio] 2.22 {ratio} Normal <2.54 [facility] Comment on above: Order Comment: Mariamai men Type: BLOOD SPECIMENOrdering Facility: [facility] Address: [address] [place] [address] Result Comment: Refe rence: 1. National Cholesterol Education Program ATP III Guideline At-A-Glance Quick Desk Reference: National Heart, Lung, and Blood [place]. National Institutes of Health. 2001: NIH Publication No. 01-3305. 2. An International Atherosclerosis Society position paper: global recommendations for the management of dyslipidemia: executive summary, Atherosclerosis. 2014: 232(2):410-413. Performed By: #### 2 4323-8, 37323-8 ####[facility] LABCLIA [id number] [place] [address] [place] Cholesterol in VLDL [Mass/Vol] 10 mg/dL Normal <30 [facility] Comment on above: Order Comment: Speci men Type: BLOOD SPECIMENOrdering Facility: [facility] Address: [address] [place] [address] Performed By: #### 2 4323-8, 88600-6 ####[facility] LABCLIA [id number] [place] [address] [place] Cholesterol non HDL [Mass/Vol] 90 mg/dL Normal <130 [facility] Comment on above: Order Comment: Speci men Type: BLOOD SPECIMENOrdering Facility: [facility] Address: [address] [place] [address] Result Comment: <130 mg/dL, Optimal 130-159 mg/dL, Near optimal/above optimal 160-189 mg/dL, Borderline high 190-219 mg/dL, High >219 mg/dL, Very high Secondary prevention optimal non HDL Cholesterol levels are recommended to be <100 mg/dL Performed By: #### 2 4323-8, 09883-8 ####[facility] LABCLIA [id number] [place] [address] [place] Cholesterol.total/Bria sterol in HDL [Mass ratio] 3.50 {ratio} Normal <5.10 [facility] Comment on above: Order Comment: Speci men Type: BLOOD SPECIMENOrdering Facility: [facility] Address: [address] [place] [address] Performed By: #### 2 4323-8, 73026-2 ####[facility] LABCLIA [id number] [place] [address] [place] FASTING TIME 13 hrs Normal [facility] Comment on above: Order Comment: Speci men Type: BLOOD SPECIMENOrdering Facility: [facility] Address: [address] [place] [address] Performed By: #### 2 4323-8, 07135-2 ####[facility] LABCLIA [id number] [place] [address] [place] Triglyceride [Mass/Vol] 49 mg/dL Normal <150 [facility] Comment on above: Order Comment: Speci men Type: BLOOD SPECIMENOrdering Facility: [facility] Address: [address] [place] [id number] Result Comment: <150 mg/dL, Normal 150-199 mg/dL, Borderline high 200-499 mg/dL, High >499 mg/dL, Very high Performed By: #### 2 4323-8, 47831-8 ####[facility] LABCLIA [id number] [id number] [id number] [facility] CNOVon 12-22-2023 CNOV Office Visit (FAMPWS ) TASNEEM RIZZO I ([id number]) 1950 F Date Time Provider Department 12/22/23 9:20 AM [facility] During your visit today, we recorded the following information about you: Pulse Respiration Blood pressure Weight 64/minute 14/minute 120/80 81.7 kg Lizzie Meier APRN.BULKING MACHINE OPERATOR 12/22/2023 10:35 AM Signed Chief Complaint Patient presents with: Discussion: On depression meds and memory issues HPI Tasneem Rizzo is a 73 year old female who presents here today for Above Complaints. Tasneem is an established patient of Dr. Pineda, and myself. Concerns today.. Wants to discuss recent MRI brain results. Anxiety/depression -- Feels depression is worsening again. She stopped taking wellbutrin months ago -- no real reason just thought it was too expensive for the little benefit it had. Pt is still taking paxil 40 mg daily. Weight management -- Asking about weight loss medication. Was on adipex in 2021 and asking about restarting this. No other concerns or complaints. Past medical history, appointments, medications, allergies reviewed. Previous Medical History PAST MEDICAL HISTORY Diagnosis Date Chronic obstructive pulmonary disease (COPD) (HCC) Degeneration of intervertebral disc, site unspecified Depressive disorder, not elsewhere classified Esophageal reflux Hypothyroidism Obstructive sleep apnea Osteoporosis, unspecified Other affections of shoulder region, not elsewhere classified Right elbow pain Previous Surgical History PAST SURGICAL HISTORY Procedure Laterality Date ARTHROSCOPY KNEE DIAGNOSTIC W/WO SYNOVIAL BX SPX Arthroscopy, knee DELIVERY ONLY , low cervical CHOLECYSTECTOMY Cholecystectomy IMPLANT MESH OPN HERNIA RPR/DEBRIDEMENT CLOSURE 03/06/07 PAST SURGICAL HISTORY OF 03/27/2004 gastric bypass RPR 1ST INGUN HRNA AGE 5 YRS/> REDUCIBLE Hernia repair, inguinal TONSILLECTOMY PRIMARY/SECONDARY Tonsillectomy UNLISTED LAPS PX HRNAP HERNIORRHAPHY HERNIOTOMY 03/06/07 Family History FAMILY HISTORY Problem Relation Age of Onset Breast Cancer Mother cva other (cva [Other]) Father Diabetes Father Borderline Diabetes Maternal Grandmother Patient Allergies ALLERGIES Allergen Reactions Maxidex [Dexamethas* Intolerance Nsaids (Non-Steroid* Intolerance not to take due to gastric bipass Boniva [Ibandronate] GI Upset Pain- hx gastric bypass. Intolerant to past biphosphonates. Sister with allergic response to reclast. Doxepin Intolerance AM hangover Current Medications Current Outpatient Medications on File Prior to Visit Medication Sig clotrimazole (LOTRIMIN) 1 % cream Apply to affected area two times a day. ergocalciferol 50,000 unit capsule (VITAMIN D2, DRISDOL) Take 1 capsule by mouth one time a week. blood sugar diagnostic (BLOOD GLUCOSE TEST) test strip Test blood sugar(s) 1 times daily. Dx: Other DM Code hypoglycemia e16.2 Insulin: No famotidine (PEPCID) 20 mg tablet Take 1 tablet by mouth two times a day. ondansetron orally disintegrating (ZOFRAN ODT) 4 mg disintegrating tablet Take 1 tablet by mouth every 6 hours as needed for nausea/vomiting. gabapentin (NEURONTIN) 300 mg capsule Take 1 capsule by mouth three times a day for 90 days. gabapentin (NEURONTIN) 100 mg capsule Take 1-2 capsules by mouth three times a day for 30 days. (Add to 300 mg capsule three times a day) ketoconazole (NIZORAL) 2 % shampoo Apply to affected area once daily as needed. ketoconazole (NIZORAL) 2 % cream APPLY TO THE AFFECTED AREA(S) at 600am and 1000pm venlafaxine ER (EFFEXOR XR) 37.5 mg 24 hr capsule Take 1 capsule by mouth once daily. carbamide peroxide (DEBROX) 6.5 % otic solution Use 5 Drops in the right ear once daily. MEDICATION, NON-DATABASE Stair lift polyethylene glycol 3350 17 gram packet Take 1 Packet by mouth once daily. Dissolve dose in 4 - 8 ounces of liquid and take as directed. montelukast (SINGULAIR) 10 mg tablet Take 1 tablet by mouth daily at bedtime. For allergies ofloxacin (FLOXIN) 0.3 % otic solution Use 5 Drops in both ears twice daily. potassium chloride ER (K-DUR, KLOR-CON) 20 mEq tablet Take 20 mEq by mouth twice daily with meals. acetaminophen (TYLENOL 8 HOUR ORAL) Take 1,000 mg by mouth three times daily. groqqvq-navccbwxd-lrg rae D3 500 mg(1,250mg) -200 unit per tablet TWICE DAILY WITH MEALS furosemide (LASIX) 40 mg tablet Take 40 mg by mouth once daily. VITAMIN B COMPLEX ORAL Take by mouth. albuterol 90 mcg/Actuation INHALATION Aero Inhale 2 Puffs as instructed four times daily. USE DIRECTED senna-docusate (SENNA-S) 8.6-50 mg per tablet Take 1 tablet by mouth twice daily. (Patient not taking: Reported on 12/01/2023) IFEREX 150 150 mg iron capsule TAKE 1 TABLET BY MOUTH EVERY DAY WITH MEALS (Patient not taking: Reported on 12/01/2023) carvedilol (COREG) 1 (more content not included)... Normal [facility] TASNEEM RIZZO I ([id number]) 1950 F Date Time Provider Department 12/15/23 GERARD[facility] MILLIGAN [facility] During your visit today, we recorded the following information about you: Gerardo Milligan APRN.[facility] 12/15/2023 9:59 AM Signed Please let Tasneem know that her brain MRI looks good. She has only some normal chronic changes, no concerns. Gerardo Milligan APRN.Nicolle Contreras MA 12/15/2023 12:15 PM Signed Attempted to contact patient with no answer. Other line rings busy. Will need to try again. ADAN StevensonSheylaIRINA 12/16/2023 3:03 PM Signed Spoke with pt gave information provided . Pt voices understanding. Allergies As of Date: 12/15/2023 Noted Allergy Reaction MAXIDEX (DEXAMETHASONE) 03/26/2005 5 - Intolerance NSAIDS (NON-STEROIDAL ANTI-INFLAM* 5 5 - Intolerance Comments: not to take due to gastric bipass BONIVA (IBANDRONATE) 12/19/2012 8 - GI Upset Comments: Pain- hx gastric bypass. Intolerant to past biphosphonates. Sister with allergic response to reclast. DOXEPIN 02/16/2008 5 - Intolerance Comments: AM hangover Date Reviewed: 12/01/2023 Reviewed by: Lizzie Meier APRN.BULKING MACHINE OPERATOR - Fully Assessed Reason for Visit: Results [95] Prescriptions as of 12/16/2023 - ergocalciferol 50,000 unit capsule (VITAMIN D2, DRISDOL) Take 1 capsule by mouth one time a week. - blood sugar diagnostic (BLOOD GLUCOSE TEST) test strip Test blood sugar(s) 1 times daily. Dx: Other DM Code hypoglycemia e16.2 Insulin: No - famotidine (PEPCID) 20 mg tablet Take 1 tablet by mouth two times a day. - nystatin (NYSTOP) powder Apply 1 application to affected area two times a day. - ondansetron orally disintegrating (ZOFRAN ODT) 4 mg disintegrating tablet Take 1 tablet by mouth every 6 hours as needed for nausea/vomiting. - gabapentin (NEURONTIN) 300 mg capsule Take 1 capsule by mouth three times a day for 90 days. - gabapentin (NEURONTIN) 100 mg capsule Take 1-2 capsules by mouth three times a day for 30 days. (Add to 300 mg capsule three times a day) - ketoconazole (NIZORAL) 2 % shampoo Apply to affected area once daily as needed. - ketoconazole (NIZORAL) 2 % cream APPLY TO THE AFFECTED AREA(S) at 600am and 1000pm - venlafaxine ER (EFFEXOR XR) 37.5 mg 24 hr capsule Take 1 capsule by mouth once daily. - carbamide peroxide (DEBROX) 6.5 % otic solution Use 5 Drops in the right ear once daily. - MEDICATION, NON-DATABASE Stair lift - polyethylene glycol 3350 17 gram packet Take 1 Packet by mouth once daily. Dissolve dose in 4 - 8 ounces of liquid and take as directed. - senna-docusate (SENNA-S) 8.6-50 mg per tablet Take 1 tablet by mouth twice daily. - PARoxetine (PAXIL) 40 mg tablet Take 1 tablet by mouth once daily. - montelukast (SINGULAIR) 10 mg tablet Take 1 tablet by mouth daily at bedtime. For allergies - IFEREX 150 150 mg iron capsule TAKE 1 TABLET BY MOUTH EVERY DAY WITH MEALS - buPROPion SR (ZYBAN SR; WELLBUTRIN SR) 150 mg 12 hr tablet Take 2 tablets PO in the AM and 1 tablet PO in the PM - ofloxacin (FLOXIN) 0.3 % otic solution Use 5 Drops in both ears twice daily. - potassium chloride ER (K-DUR, KLOR-CON) 20 mEq tablet Take 20 mEq by mouth twice daily with meals. - acetaminophen (TYLENOL 8 HOUR ORAL) Take 1,000 mg by mouth three times daily. - keefaob-tttsdynzr-obj rae D3 500 mg(1,250mg) -200 unit per tablet TWICE DAILY WITH MEALS - carvedilol (COREG) 12.5 mg tablet TAKE 1 TABLET BY MOUTH TWICE DAILY. must administer with a meal/food. - furosemide (LASIX) 40 mg tablet Take 40 mg by mouth once daily. - VITAMIN B COMPLEX ORAL Take by mouth. - COMPOUNDED PRESCRIPTION Jobst stocking knee high with zipper 20-30 mmHg Dx:R60.0, S72.002A - Calcium Citrate-Vitamin D3 500 mg calcium -400 unit Chew Take 1 Each by mouth daily with food. - albuterol 90 mcg/Actuation INHALATION Aero Inhale 2 Puffs as instructed four times daily. USE DIRECTED Problem List As Of Date 12/15/2023 Noted Resolved Cervicalgia [M54.2] 01/14/2006 Pain in Joint, Shoulder Region [M25.519] 01/14/2006 01/23/2010 Unspecified Osteoporosis [M81.0] 02/07/2006 SHOULDER REGION DIS NEC [M25.819] DISC DEGENERATION NOS [BYJ4714] ESOPHAGEAL REFLUX [K21.9] DEPRESSIVE DISORDER NEC [F32.89] Neck Sprain and Strain [S13.9XXA] 07/14/2006 01/23/2010 INCISIONAL HERNIA [K43.2] 12/30/2006 TOBACCO USE DISORDER [F17.200] 01/26/2007 Acute Bronchitis [J20.9] 09/18/2007 01/23/2010 CHRONIC PAIN NEC [G89.29] 12/12/2008 Spondylosis [M47.9] 01/23/2010 Cervical arthritis [M47.812] 05/20/2010 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 Normal [facility] MR Brain WO contraston 12-14 IMPRESSION: No acute brain findings. Moderate background chronic microvascular change. Electrical Systems Engineer: LATRICIA Transcribe Date/Time: Dec 15 2023 9:46A Dictated by : LISBETH LOAIZA MD This examination was interpreted and the report reviewed and electronically signed by: LISBETH LOAIZA MD on Dec 15 2023 9:51AM [facility] DIVISION OF RADIOLOGY * * *Final Report* * * DATE OF EXAM: Dec 15 2023 9:40AM [facility] 0294 - MRI BRAIN WO IVCON / PROCEDURE REASON: multiple diagnoses * * * * Physician Interpretation * * * * EXAMINATION: MRI BRAIN WO IVCON CLINICAL HISTORY: Fall, initial encounter. Short-term memory loss. Headaches and mood swings. TECHNIQUE: Routine noncontrast MRI protocol including diffusion images. MQ: MRBWO_2 COMPARISON: Prior head CT dated 03/18/2023. RESULT: Acute Change: There is no restricted diffusion on this examination to suggest focal acute ischemia or pathologic brain parenchymal cellularity. Hemorrhage: No evidence of prior parenchymal hemorrhage on the susceptibility weighted images. Mass Lesion/ Mass Effect: No evidence of an intracranial mass or extra-axial fluid collection. No significant mass effect. Chronic Change: Confluent periventricular and scattered punctate peripheral foci of increased T2 and FLAIR signal, patchy involvement of the inga are nonspecific findings, but likely represent moderate background chronic microvascular change. Parenchyma: There is mild generalized parenchymal volume loss. Ventricles: Normal caliber and morphology. Skull Base: Hypothalamic and pituitary region are grossly normal. Craniocervical junction is normal. No significant marrow replacement process. Cerebellar tonsils are normal size and position. Vasculature: Major intracranial arterial structures, and dural venous sinuses show typical flow void, suggesting patency by spin echo criteria. Right vertebral artery is dominant. Left is likely hypoplastic terminating in left PICA. Other: Patchy ethmoid inflammatory mucosal thickening and small polyp along the floor of the left maxillary antrum. Remaining paranasal sinus chambers are grossly clear. Mastoid air cells and middle ear cavities are clear. Orbits are normal. DIVISION OF RADIOLOGY Provider, [facility] - 12/15/2023 * * *Final Report* * * DATE OF EXAM: Dec 15 2023 9:40AM [facility] 0294 - MRI BRAIN WO IVCON / PROCEDURE REASON: multiple diagnoses * * * * Physician Interpretation * * * * EXAMINATION: MRI BRAIN WO IVCON CLINICAL HISTORY: Fall, initial encounter. Short-term memory loss. Headaches and mood swings. TECHNIQUE: Routine noncontrast MRI protocol including diffusion images. MQ: MRBWO_2 COMPARISON: Prior head CT dated 03/18/2023. RESULT: Acute Change: There is no restricted diffusion on this examination to suggest focal acute ischemia or pathologic brain parenchymal cellularity. Hemorrhage: No evidence of prior parenchymal hemorrhage on the susceptibility weighted images. Mass Lesion/ Mass Effect: No evidence of an intracranial mass or extra-axial fluid collection. No significant mass effect. Chronic Change: Confluent periventricular and scattered punctate peripheral foci of increased T2 and FLAIR signal, patchy involvement of the inga are nonspecific findings, but likely represent moderate background chronic microvascular change. Parenchyma: There is mild generalized parenchymal volume loss. Ventricles: Normal caliber and morphology. Skull Base: Hypothalamic and pituitary region are grossly normal. Craniocervical junction is normal. No significant marrow replacement process. Cerebellar tonsils are normal size and position. Vasculature: Major intracranial arterial structures, and dural venous sinuses show typical flow void, suggesting patency by spin echo criteria. Right vertebral artery is dominant. Left is likely hypoplastic terminating in left PICA. Other: Patchy ethmoid inflammatory mucosal thickening and small polyp along the floor of the left maxillary antrum. Remaining paranasal sinus chambers are grossly clear. Mastoid air cells and middle ear cavities are clear. Orbits are normal. IMPRESSION IMPRESSION: No acute brain findings. Moderate background chronic microvascular change. Electrical Systems Engineer: PSCB Transcribe Date/Time: Dec 15 2023 9:46A Dictated by : LISBETH LOAIZA MD This examination was interpreted and the report reviewed and electronically signed by: LISBETH LOAIZA MD on Dec 15 2023 9:51AM EST [facility] Radiology [facility]narrative[facility] WO contrastOrdered By: [facility] Provider on 12-15-2023 [facility] MRI BRAIN WO IVCONon 024 MRI BRAIN WO IVCON * * *Final Report* * * DATE OF EXAM: Dec 15 2023 9:40AM [facility] 0294 - MRI BRAIN WO IVCON / PROCEDURE REASON: multiple diagnoses * * * * Physician Interpretation * * * * EXAMINATION: MRI BRAIN WO IVCON CLINICAL HISTORY: Fall, initial encounter. Short-term memory loss. Headaches and mood swings. TECHNIQUE: Routine noncontrast MRI protocol including diffusion images. MQ: MRBWO_2 COMPARISON: Prior head CT dated 03/18/2023. RESULT: Acute Change: There is no restricted diffusion on this examination to suggest focal acute ischemia or pathologic brain parenchymal cellularity. Hemorrhage: No evidence of prior parenchymal hemorrhage on the susceptibility weighted images. Mass Lesion/ Mass Effect: No evidence of an intracranial mass or extra-axial fluid collection. No significant mass effect. Chronic Change: Confluent periventricular and scattered punctate peripheral foci of increased T2 and FLAIR signal, patchy involvement of the inga are nonspecific findings, but likely represent moderate background chronic microvascular change. Parenchyma: There is mild generalized parenchymal volume loss. Ventricles: Normal caliber and morphology. Skull Base: Hypothalamic and pituitary region are grossly normal. Craniocervical junction is normal. No significant marrow replacement process. Cerebellar tonsils are normal size and position. Vasculature: Major intracranial arterial structures, and dural venous sinuses show typical flow void, suggesting patency by spin echo criteria. Right vertebral artery is dominant. Left is likely hypoplastic terminating in left PICA. Other: Patchy ethmoid inflammatory mucosal thickening and small polyp along the floor of the left maxillary antrum. Remaining paranasal sinus chambers are grossly clear. Mastoid air cells and middle ear cavities are clear. Orbits are normal. IMPRESSION: No acute brain findings. Moderate background chronic microvascular change. Electrical Systems Engineer: PSCB Transcribe Date/Time: Dec 15 2023 9:46A Dictated by : LISBETH LOAIZA MD This examination was interpreted and the report reviewed and electronically signed by: LISBETH LOAIZA MD on Dec 15 2023 9:51AM EST [id number] N Normal [facility] MATTHIASTASNEEM I ([id number]) 1950 F Date Time Provider Department 12/12/23 KEI PINEDA [facility] During your visit today, we recorded the following information about you: Rosalba Lizarraga MA 12/12/2023 2:51 PM Signed Prior Authorization has been completed online at [employer] for nystop powder, will await response. [id number] Please keep encounter open until final decision has been received and documented from insurance company. Rosalba Hubbard MA, MA 12/13/2023 1:37 PM Signed Denied patient must try preferred drug clotrimazole cream MARIANA Lewis Alyson, APRN.BULKING MACHINE OPERATOR 12/14/2023 9:15 AM Signed Please let patient know this and see if she is OK with clotrimazole cream. Please pend if so. Thank you, Lizzie Meier APRN.Sheyla Tellez LPN 12/14/2023 10:45 AM Signed T/c phone rings and rings no machine. Will need to try back. Nicolle Dumont MA 12/16/2023 1:53 PM Signed Attempted to contact pt x2. Other line rings busy. Please try again. ADAN Stevenson Laurie Lynn, LPN 12/19/2023 8:19 AM Signed 1) Okay with pt and please send to Pharmacy. Pharmacy updated. 2). Pt was given results of MRI. Pt would dolly to know what the chronic changes are and asking for further testing. Pt reports things are still not right. Pt reports no short term memory and this is not getting better but worse. Please advise pt. IRINA Medellin Alyson, APRN.BULKING MACHINE OPERATOR 12/19/2023 9:30 AM Signed Rx sent. I can consult pt to brain health and [facility] for appointment. Consult placed. No other imagining needs done from my standpoint. Thank you, Lizzie Meier APRN.Kim Schmid LPN 12/19/2023 10:04 AM Signed Attempted to inform no VM Sheyla Price LPN 12/19/2023 2:18 PM Signed Attempted to call pt just rings and rings. Nicolle Dumont MA 12/20/2023 2:04 PM Signed Attempted to contact patient. Line rings busy. No VM. Will need to try again. ADAN Stevenson Barbara, RN 12/21/2023 1:14 PM Signed Called and spoke with pt. Pt states she does not want to go out of town to see another provider or have further testing done. Pt has an appt with Lizzie Meier tomorrow and will discuss then. Allergies As of Date: 12/12/2023 Noted Allergy Reaction MAXIDEX (DEXAMETHASONE) 03/26/2005 5 - Intolerance NSAIDS (NON-STEROIDAL ANTI-INFLAM* 5 5 - Intolerance Comments: not to take due to gastric bipass BONIVA (IBANDRONATE) 12/19/2012 8 - GI Upset Comments: Pain- hx gastric bypass. Intolerant to past biphosphonates. Sister with allergic response to reclast. DOXEPIN 02/16/2008 5 - Intolerance Comments: AM hangover Date Reviewed: 12/01/2023 Reviewed by: Lizzie Meier APRN.BULKING MACHINE OPERATOR - Fully Assessed Reason for Visit: Insurance Authorization [[id number]] Cmt: Nystop powder Primary Visit Diagnosis:Short-term memory loss [R41.3] Other Visit Diagnoses:Headaches [R51.9] Cognitive impairment, mild, so stated [G31.84] Order(s):clotrimazole (LOTRIMIN) 1 % creamApply to affected area two times a day.Disp: 45 gRfl: 1 CONSULT TO [facility] [[id number]] Order #: [id number]: 1 FUTURE Prescriptions as of 12/21/2023 - clotrimazole (LOTRIMIN) 1 % cream Apply to affected area two times a day. - ergocalciferol 50,000 unit capsule (VITAMIN D2, DRISDOL) Take 1 capsule by mouth one time a week. - blood sugar diagnostic (BLOOD GLUCOSE TEST) test strip Test blood sugar(s) 1 times daily. Dx: Other DM Code hypoglycemia e16.2 Insulin: No - famotidine (PEPCID) 20 mg tablet Take 1 tablet by mouth two times a day. - nystatin (NYSTOP) powder Apply 1 application to affected area two times a day. - ondansetron orally disintegrating (ZOFRAN ODT) 4 mg disintegrating tablet Take 1 tablet by mouth every 6 hours as needed for nausea/vomiting. - gabapentin (NEURONTIN) 300 mg capsule Take 1 capsule by mouth three times a day for 90 days. - gabapentin (NEURONTIN) 100 mg capsule Take 1-2 capsules by mouth three times a day for 30 days. (Add to 300 mg capsule three times a day) - ketoconazole (NIZORAL) 2 % shampoo Apply to affected area once daily as needed. - ketoconazole (NIZORAL) 2 % cream APPLY TO THE AFFECTED AREA(S) at 600am and 1000pm - venlafaxine ER (EFFEXOR XR) 37.5 mg 24 hr capsule Take 1 capsule by mouth once daily. - carbamide peroxide (DEBROX) 6.5 % otic solution Use 5 Drops in the right ear once daily. - MEDICATION, NON-DATABASE Stair lift - polyethylene glycol 3350 17 gram packet Take 1 Packet by mouth once daily. Dissolve dose in 4 - 8 ounces of liquid and take as directed. - senna-docusate (SENNA-S) 8.6-50 mg per tablet Take 1 tablet by mouth twice daily. - PARoxetine (PAXIL) 40 mg tablet Take 1 tablet by mouth once daily. - montelukast (SINGULAIR) 10 mg tablet Take 1 tablet by m (more content not included)... Normal [facility] CNOVon 12-01-2023 CNOV Office Visit (FAMPWS ) TASNEEM RIZZO I ([id number]) 1950 F Date Time Provider Department 12/01/23 9:20 AM [facility] During your visit today, we recorded the following information about you: Pulse Respiration Blood pressure Weight 96/minute 14/minute 120/60 79.6 kg Lizzie Meier APRN.BULKING MACHINE OPERATOR 12/01/2023 11:09 AM Signed Chief Complaint Patient presents with: follow up meds and headaches HPI Tasneem Rizzo is a 73 year old female who presents here today for Above Complaints. Tasneem is an established patient of Dr. Edwin DO. She is a new patient to me today. Concerns today... Confusion -- Feels over the last 6 months that her short term memory issues have worsened. Feels she is forgetting things and repeating herself constantly. Nephew has also noticed intermittent confusion. Will be driving in the car together and pt will forget where they are going and for what reason. Pt does reports intermittent dull headaches here and there. Pt also reports fall and hit head about 2 months ago but she does feel like memory issues significantly worsened after this. Never had brain imagining after this fall. Needs refill on medications. Needs routine lab work. -- Bone density in 2016 -- shows severe osteoporosis. No current medication regimen. Past medical history, appointments, medications, allergies reviewed. Previous Medical History PAST MEDICAL HISTORY Diagnosis Date Chronic obstructive pulmonary disease (COPD) (HCC) Degeneration of intervertebral disc, site unspecified Depressive disorder, not elsewhere classified Esophageal reflux Hypothyroidism Obstructive sleep apnea Osteoporosis, unspecified Other affections of shoulder region, not elsewhere classified Right elbow pain Previous Surgical History PAST SURGICAL HISTORY Procedure Laterality Date ARTHROSCOPY KNEE DIAGNOSTIC W/WO SYNOVIAL BX SPX Arthroscopy, knee DELIVERY ONLY , low cervical CHOLECYSTECTOMY Cholecystectomy IMPLANT MESH OPN HERNIA RPR/DEBRIDEMENT CLOSURE 03/06/07 PAST SURGICAL HISTORY OF 03/27/2004 gastric bypass RPR 1ST INGUN HRNA AGE 3 YRS/> REDUCIBLE Hernia repair, inguinal TONSILLECTOMY PRIMARY/SECONDARY Tonsillectomy UNLISTED LAPS PX HRNAP HERNIORRHAPHY HERNIOTOMY 03/06/07 Family History FAMILY HISTORY Problem Relation Age of Onset Breast Cancer Mother cva other (cva [Other]) Father Diabetes Father Borderline Diabetes Maternal Grandmother Patient Allergies ALLERGIES Allergen Reactions Maxidex [Dexamethas* Intolerance Nsaids (Non-Steroid* Intolerance not to take due to gastric bipass Boniva [Ibandronate] GI Upset Pain- hx gastric bypass. Intolerant to past biphosphonates. Sister with allergic response to reclast. Doxepin Intolerance AM hangover Current Medications Current Outpatient Medications on File Prior to Visit Medication Sig gabapentin (NEURONTIN) 300 mg capsule Take 1 capsule by mouth three times a day for 90 days. gabapentin (NEURONTIN) 100 mg capsule Take 1-2 capsules by mouth three times a day for 30 days. (Add to 300 mg capsule three times a day) ketoconazole (NIZORAL) 2 % shampoo Apply to affected area once daily as needed. ketoconazole (NIZORAL) 2 % cream APPLY TO THE AFFECTED AREA(S) at 600am and 1000pm venlafaxine ER (EFFEXOR XR) 37.5 mg 24 hr capsule Take 1 capsule by mouth once daily. carbamide peroxide (DEBROX) 6.5 % otic solution Use 5 Drops in the right ear once daily. MEDICATION, NON-DATABASE Stair lift polyethylene glycol 3350 17 gram packet Take 1 Packet by mouth once daily. Dissolve dose in 4 - 8 ounces of liquid and take as directed. senna-docusate (SENNA-S) 8.6-50 mg per tablet Take 1 tablet by mouth twice daily. PARoxetine (PAXIL) 40 mg tablet Take 1 tablet by mouth once daily. montelukast (SINGULAIR) 10 mg tablet Take 1 tablet by mouth daily at bedtime. For allergies IFEREX 150 150 mg iron capsule TAKE 1 TABLET BY MOUTH EVERY DAY WITH MEALS ergocalciferol 50,000 unit capsule (VITAMIN D2, DRISDOL) Take 1 capsule by mouth one time a week. buPROPion SR (ZYBAN SR; WELLBUTRIN SR) 150 mg 12 hr tablet Take 2 tablets PO in the AM and 1 tablet PO in the PM ondansetron orally disintegrating (ZOFRAN ODT) 4 mg disintegrating tablet Take 1 tablet by mouth every 8 hours as needed for nausea/vomiting. blood sugar diagnostic (BLOOD GLUCOSE TEST) test strip Test blood sugar(s) 1 times daily. Dx: Other DM Code hypoglycemia e16.2 Insulin: No famotidine (PEPCID) 20 mg tablet Take 1 tablet by mouth twice daily. ofloxacin (FLOXIN) 0.3 % otic solution Use 5 Drops in both ears twice daily. potassium chloride ER (K-DUR, KLOR-CON) 20 mEq tablet Take 20 mEq by mouth twice daily with meals. acetaminophen (TYLENOL 8 HOUR ORAL) Take 1,000 mg by mouth three times daily. uzdyoth-dicjmumpj-rwv rae D3 500 mg(1,25 (more content not included)... [facility] TASNEEM RIZZO I ([id number]) 1950 F Date Time Provider Department 11/15/23 1:40 PM GERARDO MILLIGAN During your visit today, we recorded the following information about you: Pulse Respiration Blood pressure Weight 83/minute 18/minute 140/82 75.4 kg Gerardo Milligan APRN.CNP 11/16/2023 1:39 PM Signed Chief Complaint Patient presents with: Psoriasis: Scalp HPI TasneemQuoc Rizzo is a 73 year old female who presents here today for Above Complaints.. Still has hot flashes after going through menopause 30 or so years ago. Wakes up during the night with sweating and needing to throw the covers off. On 03/19/23 had a fall and hit the right side of her head. Gets some memory loss while speaking. Overall has some memory difficulty, both recent and old. Gets a constant pain/stabbing feeling on her neck. Wondering if this could be psoriasis in her ear and traveling down her neck. Psoriasis on her scalp, across the back of her neck, right lower back, right upper arm. Itches a lot. Past medical history, appointments, medications, allergies reviewed. Previous Medical History PAST MEDICAL HISTORY Diagnosis Date Chronic obstructive pulmonary disease (COPD) (HCC) Degeneration of intervertebral disc, site unspecified Depressive disorder, not elsewhere classified Esophageal reflux Hypothyroidism Obstructive sleep apnea Osteoporosis, unspecified Other affections of shoulder region, not elsewhere classified Right elbow pain Previous Surgical History PAST SURGICAL HISTORY Procedure Laterality Date ARTHROSCOPY KNEE DIAGNOSTIC W/WO SYNOVIAL BX SPX Arthroscopy, knee DELIVERY ONLY , low cervical CHOLECYSTECTOMY Cholecystectomy IMPLANT MESH OPN HERNIA RPR/DEBRIDEMENT CLOSURE 03/06/07 PAST SURGICAL HISTORY OF 03/27/2004 gastric bypass RPR 1ST INGUN HRNA AGE 3 YRS/> REDUCIBLE Hernia repair, inguinal TONSILLECTOMY PRIMARY/SECONDARY Tonsillectomy UNLISTED LAPS PX HRNAP HERNIORRHAPHY HERNIOTOMY 03/06/07 Family History FAMILY HISTORY Problem Relation Age of Onset Breast Cancer Mother cva other (cva [Other]) Father Diabetes Father Borderline Diabetes Maternal Grandmother Patient Allergies ALLERGIES Allergen Reactions Maxidex [Dexamethas* Intolerance Nsaids (Non-Steroid* Intolerance not to take due to gastric bipass Boniva [Ibandronate] GI Upset Pain- hx gastric bypass. Intolerant to past biphosphonates. Sister with allergic response to reclast. Doxepin Intolerance AM hangover Current Medications Current Outpatient Medications on File Prior to Visit Medication Sig MEDICATION, NON-DATABASE Stair lift polyethylene glycol 3350 17 gram packet Take 1 Packet by mouth once daily. Dissolve dose in 4 - 8 ounces of liquid and take as directed. senna-docusate (SENNA-S) 8.6-50 mg per tablet Take 1 tablet by mouth twice daily. PARoxetine (PAXIL) 40 mg tablet Take 1 tablet by mouth once daily. montelukast (SINGULAIR) 10 mg tablet Take 1 tablet by mouth daily at bedtime. For allergies IFEREX 150 150 mg iron capsule TAKE 1 TABLET BY MOUTH EVERY DAY WITH MEALS ergocalciferol 50,000 unit capsule (VITAMIN D2, DRISDOL) Take 1 capsule by mouth one time a week. buPROPion SR (ZYBAN SR; WELLBUTRIN SR) 150 mg 12 hr tablet Take 2 tablets PO in the AM and 1 tablet PO in the PM ondansetron orally disintegrating (ZOFRAN ODT) 4 mg disintegrating tablet Take 1 tablet by mouth every 8 hours as needed for nausea/vomiting. blood sugar diagnostic (BLOOD GLUCOSE TEST) test strip Test blood sugar(s) 1 times daily. Dx: Other DM Code hypoglycemia e16.2 Insulin: No famotidine (PEPCID) 20 mg tablet Take 1 tablet by mouth twice daily. ofloxacin (FLOXIN) 0.3 % otic solution Use 5 Drops in both ears twice daily. potassium chloride ER (K-DUR, KLOR-CON) 20 mEq tablet Take 20 mEq by mouth twice daily with meals. ketoconazole (NIZORAL) 2 % cream APPLY TO THE AFFECTED AREA(S) at 600am and 1000pm acetaminophen (TYLENOL 8 HOUR ORAL) Take 1,000 mg by mouth three times daily. spuggpc-xsdwyegwk-yts rae D3 500 mg(1,250mg) -200 unit per tablet TWICE DAILY WITH MEALS carvedilol (COREG) 12.5 mg tablet TAKE 1 TABLET BY MOUTH TWICE DAILY. must administer with a meal/food. furosemide (LASIX) 40 mg tablet Take 40 mg by mouth once daily. VITAMIN B COMPLEX ORAL Take by mouth. nystatin (NYSTOP) powder Apply 1 application to affected area twice daily. COMPOUNDED PRESCRIPTION Jobst stocking knee high with zipper 20-30 mmHg Dx:R60.0, S72.002A Calcium Citrate-Vitamin D3 500 mg calcium -400 unit Chew Take 1 Each by mouth daily with food. albuterol 90 mcg/Actuation INHALATION Aero Inhale 2 Puffs as instructed four times daily. USE DIRECTED No current facility-administered medications on file prior to visit. Social History Social History Tobacco Use Smoking s (more content not included)... Normal [facility] CNOVon 10-26-2023 CNOV Office Visit (WSTR ) TASNEEM RIZZO I ([id number]) 1950 F Date Time Provider Department 10/26/23 3:00 PM ANNCY GARIBAY [facility] During your visit today, we recorded the following information about you: Temperature Pulse Respiration Blood pressure 98.5 degrees 112/minute 18/minute 124/72 Weight 75.6 kg Nancy Garibay APRN.BULKING MACHINE OPERATOR 10/26/2023 5:00 PM Signed Subjective HPI HPI Tasneem Rizzo is a 73 year old female who presents today for CC of left arm pain after reaching back 4 days ago. Has tried otc medication for relief. Symptoms are worsened by rom of arm. Risk factors hx of left elbow fracture. Denies numbness/tingling. Denies direct injury/fall/blow to arm. Itchy rash on shoulder and scalp, reports hx of eczema .Patient presents with: Shoulder Injury: left x 4 days, reached back PAST MEDICAL HISTORY Diagnosis Date Chronic obstructive pulmonary disease (COPD) (HCC) Degeneration of intervertebral disc, site unspecified Depressive disorder, not elsewhere classified Esophageal reflux Hypothyroidism Obstructive sleep apnea Osteoporosis, unspecified Other affections of shoulder region, not elsewhere classified Right elbow pain PAST SURGICAL HISTORY Procedure Laterality Date ARTHROSCOPY KNEE DIAGNOSTIC W/WO SYNOVIAL BX SPX Arthroscopy, knee DELIVERY ONLY , low cervical CHOLECYSTECTOMY Cholecystectomy IMPLANT MESH OPN HERNIA RPR/DEBRIDEMENT CLOSURE 03/06/07 PAST SURGICAL HISTORY OF 03/27/2004 gastric bypass RPR 1ST INGUN HRNA AGE 3 YRS/> REDUCIBLE Hernia repair, inguinal TONSILLECTOMY PRIMARY/SECONDARY Tonsillectomy UNLISTED LAPS PX HRNAP HERNIORRHAPHY HERNIOTOMY 03/06/07 ALLERGIES Maxidex [Dexamethasone], Nsaids (Non-Steroidal Anti-Inflammatory Drug), Boniva [Ibandronate], and Doxepin MEDICATIONS MEDICATION, NON-DATABASE Stair lift polyethylene glycol 3350 17 gram packet Take 1 Packet by mouth once daily. Dissolve dose in 4 - 8 ounces of liquid and take as directed. senna-docusate (SENNA-S) 8.6-50 mg per tablet Take 1 tablet by mouth twice daily. PARoxetine (PAXIL) 40 mg tablet Take 1 tablet by mouth once daily. montelukast (SINGULAIR) 10 mg tablet Take 1 tablet by mouth daily at bedtime. For allergies IFEREX 150 150 mg iron capsule TAKE 1 TABLET BY MOUTH EVERY DAY WITH MEALS ergocalciferol 50,000 unit capsule (VITAMIN D2, DRISDOL) Take 1 capsule by mouth one time a week. buPROPion SR (ZYBAN SR; WELLBUTRIN SR) 150 mg 12 hr tablet Take 2 tablets PO in the AM and 1 tablet PO in the PM ondansetron orally disintegrating (ZOFRAN ODT) 4 mg disintegrating tablet Take 1 tablet by mouth every 8 hours as needed for nausea/vomiting. blood sugar diagnostic (BLOOD GLUCOSE TEST) test strip Test blood sugar(s) 1 times daily. Dx: Other DM Code hypoglycemia e16.2 Insulin: No famotidine (PEPCID) 20 mg tablet Take 1 tablet by mouth twice daily. ofloxacin (FLOXIN) 0.3 % otic solution Use 5 Drops in both ears twice daily. potassium chloride ER (K-DUR, KLOR-CON) 20 mEq tablet Take 20 mEq by mouth twice daily with meals. ketoconazole (NIZORAL) 2 % cream APPLY TO THE AFFECTED AREA(S) at 600am and 1000pm acetaminophen (TYLENOL 8 HOUR ORAL) Take 1,000 mg by mouth three times daily. lfusfnv-zrkpdgonh-dxi rae D3 500 mg(1,250mg) -200 unit per tablet TWICE DAILY WITH MEALS carvedilol (COREG) 12.5 mg tablet TAKE 1 TABLET BY MOUTH TWICE DAILY. must administer with a meal/food. furosemide (LASIX) 40 mg tablet Take 40 mg by mouth once daily. VITAMIN B COMPLEX ORAL Take by mouth. nystatin (NYSTOP) powder Apply 1 application to affected area twice daily. COMPOUNDED PRESCRIPTION Jobst stocking knee high with zipper 20-30 mmHg Dx:R60.0, S72.002A Calcium Citrate-Vitamin D3 500 mg calcium -400 unit Chew Take 1 Each by mouth daily with food. albuterol 90 mcg/Actuation INHALATION Aero Inhale 2 Puffs as instructed four times daily. USE DIRECTED FAMILY HISTORY Problem Relation Age of Onset Breast Cancer Mother cva other (cva [Other]) Father Diabetes Father Borderline Diabetes Maternal Grandmother Social History Tobacco Use Smoking status: Former Packs/day: .5 Types: Cigarettes Quit date: 04/27/2015 Years since quittin.5 Smokeless tobacco: Never Substance Use Topics Alcohol use: No Drug use: No ROS Objective Blood pressure 124/72, pulse 112, temperature 36.9 ?C (98.5 ?F), resp. rate 18, weight 75.6 kg (166 lb 10.7 oz), SpO2 96%. Physical Exam Constitutional: General: She is not in acute distress. Appearance: She is not toxic-appearing or diaphoretic. HENT: Head: Normocephalic and atraumatic. Pulmonary: Effort: Pulmonary effort is normal. No accessory muscle usage or respiratory distress. Musculoskeletal: Arms: Skin: Neurological: Mental Status: She is alert and oriented to person, place, and time. ASSESSMENT/PREM (more content not included)... Normal [facility] XR HUMERUS 2V AP/LAT LTon XR HUMERUS 2V AP/LAT LT * * *Final Repor t* * * DATE OF EXAM: Oct 26 2023 3:31PM WOX [id number] - XR HUMERUS 2V AP/LAT LT / PROCEDURE REASON: Arm injuries, left, initial encounter * * * * Physician Interpretation * * * * EXAMINATION: XR HUMERUS 2V AP/LAT LT PATIENT/TECHNOLOGIST PROVIDED HISTORY: Acute left proximal humerus pain, pt fractured left proximal humerus 16 months ago but it was feeling better until recently when she reached for something behind her and then has had pain ever since. CLINICAL INFORMATION: 73 years old Female with Arm injuries, left, initial encounter TECHNIQUE: XR HUMERUS 2V AP/LAT LT Laterality: LEFT Number of different views (projections): 2 COMPARISON: Radiographs 03/19/2023 RESULT: No acute fracture or dislocation. Chronic healed impacted malunited fracture deformity of the LEFT proximal humerus involving the surgical neck and greater tuberosity. Narrowing of the acromiohumeral interval new compared to the prior exam suggesting full-thickness rotator cuff tear. Moderate glenohumeral joint space narrowing with marginal osteophyte formation. Mild degenerative change acromioclavicular joint. Multiple remote healed LEFT rib fracture deformities. Osteopenia. IMPRESSION: No acute osseous abnormality. Chronic healed impacted malunited fracture deformity of the LEFT proximal humerus. Findings suggest full-thickness LEFT rotator cuff tear. Moderate LEFT glenohumeral osteoarthritis. Electrical Systems Engineer: LATRICIA Transcribe Date/Time: Oct 26 2023 3:45P Dictated by : KEYLA POSADA DO This examination was interpreted and the report reviewed and electronically signed by: KEYLA POSADA DO on Oct 26 2023 3:52PM EST [id number] Normal [facility] XR Humerus - left AP and Lat eralon 10-26-2023 IMPRESSION: No acute osseous abnormality. Chronic healed impacted malunited fracture deformity of the LEFT proximal humerus. Findings suggest full-thickness LEFT rotator cuff tear. Moderate LEFT glenohumeral osteoarthritis. Electrical Systems Engineer: LATRICIA Transcribe Date/Time: Oct 26 2023 3:45P Dictated by : KEYLA POSADA DO This examination was interpreted and the report reviewed and electronically signed by: KEYLA POSADA DO on Oct 26 2023 3:52PM EST DIVISION OF RADIOLOGY * * *Final Report* * * DATE OF EXAM: Oct 26 2023 3:31PM WOX [id number] - XR HUMERUS 2V AP/LAT LT / PROCEDURE REASON: Arm injuries, left, initial encounter * * * * Physician Interpretation * * * * EXAMINATION: XR HUMERUS 2V AP/LAT LT PATIENT/TECHNOLOGIST PROVIDED HISTORY: Acute left proximal humerus pain, pt fractured left proximal humerus 16 months ago but it was feeling better until recently when she reached for something behind her and then has had pain ever since. CLINICAL INFORMATION: 73 years old Female with Arm injuries, left, initial encounter TECHNIQUE: XR HUMERUS 2V AP/LAT LT Laterality: LEFT Number of different views (projections): 2 COMPARISON: Radiographs 03/19/2023 RESULT: No acute fracture or dislocation. Chronic healed impacted malunited fracture deformity of the LEFT proximal humerus involving the surgical neck and greater tuberosity. Narrowing of the acromiohumeral interval new compared to the prior exam suggesting full-thickness rotator cuff tear. Moderate glenohumeral joint space narrowing with marginal osteophyte formation. Mild degenerative change acromioclavicular joint. Multiple remote healed LEFT rib fracture deformities. Osteopenia. DIVISION OF RADIOLOGY Provider, Lilly [facility] - 10/26/2023 * * *Final Report* * * DATE OF EXAM: Oct 26 2023 3:31PM WOX [id number] - XR HUMERUS 2V AP/LAT LT / PROCEDURE REASON: Arm injuries, left, initial encounter * * * * Physician Interpretation * * * * EXAMINATION: XR HUMERUS 2V AP/LAT LT PATIENT/TECHNOLOGIST PROVIDED HISTORY: Acute left proximal humerus pain, pt fractured left proximal humerus 16 months ago but it was feeling better until recently when she reached for something behind her and then has had pain ever since. CLINICAL INFORMATION: 73 years old Female with Arm injuries, left, initial encounter TECHNIQUE: XR HUMERUS 2V AP/LAT LT Laterality: LEFT Number of different views (projections): 2 COMPARISON: Radiographs 03/19/2023 RESULT: No acute fracture or dislocation. Chronic healed impacted malunited fracture deformity of the LEFT proximal humerus involving the surgical neck and greater tuberosity. Narrowing of the acromiohumeral interval new compared to the prior exam suggesting full-thickness rotator cuff tear. Moderate glenohumeral joint space narrowing with marginal osteophyte formation. Mild degenerative change acromioclavicular joint. Multiple remote healed LEFT rib fracture deformities. Osteopenia. IMPRESSION IMPRESSION: No acute osseous abnormality. Chronic healed impacted malunited fracture deformity of the LEFT proximal humerus. Findings suggest full-thickness LEFT rotator cuff tear. Moderate LEFT glenohumeral osteoarthritis. Electrical Systems Engineer: LATRICIA Transcribe Date/Time: Oct 26 2023 3:45P Dictated by : KEYLA POSADA DO This examination was interpreted and the report reviewed and electronically signed by: KEYLA POSADA DO on Oct 26 2023 3:52PM [facility] Radiology Study observation (narrative) Bharati stein [facility] XR Humerus - left AP and Lat eralOrdered By: [facility] Provider on 10-26-2023 [facility] Claude 10-21-2023 RAYN Telephone (PSYLME) TASNEEM RIZZO I ([id number]) 1950 F Date Time Provider Department 10/21/23 MANDA GANT During your visit today, we recorded the following information about you: Manda Gant [facility] 10/21/2023 11:05 AM Signed Behavioral Health Social Work Progress Note Patient identified for [facility] from: PCP Reason for referral: Resources Behavioral Health Resources: Psychiatry med management, Psychology - talk therapy [facility] encounter type: Telephone Encounter Attempts to Outreach: 1 attempt Referral made: Psychiatry - Internal Psychiatry-Internal referral type: Medication Management Patient Discharged?: Yes therapist spoke to patient to assess needs. Patient was perseverating on psychosocial stressors. She initially declined services, then said she would be interested in see a psychiatric provider if they were in [place]. Patient does not drive and states that she can only do in person visits. Will check with Danna to see if she could schedule with this patient. Manda Gant [facility] October 21, 2023 Allergies As of Date: 10/21/2023 Noted Allergy Reaction MAXIDEX (DEXAMETHASONE) 03/26/2005 5 - Intolerance NSAIDS (NON-STEROIDAL ANTI-INFLAM* 5 5 - Intolerance Comments: not to take due to gastric bipass BONIVA (IBANDRONATE) 12/19/2012 8 - GI Upset Comments: Pain- hx gastric bypass. Intolerant to past biphosphonates. Sister with allergic response to reclast. DOXEPIN 02/16/2008 5 - Intolerance Comments: AM hangover Date Reviewed: 06/20/2023 Reviewed by: Glenda Durham LPN - Fully Assessed Reason for Visit: consult [Other] Prescriptions as of 10/21/2023 - MEDICATION, NON-DATABASE Stair lift - polyethylene glycol 3350 17 gram packet Take 1 Packet by mouth once daily. Dissolve dose in 4 - 8 ounces of liquid and take as directed. - senna-docusate (SENNA-S) 8.6-50 mg per tablet Take 1 tablet by mouth twice daily. - PARoxetine (PAXIL) 40 mg tablet Take 1 tablet by mouth once daily. - montelukast (SINGULAIR) 10 mg tablet Take 1 tablet by mouth daily at bedtime. For allergies - IFEREX 150 150 mg iron capsule TAKE 1 TABLET BY MOUTH EVERY DAY WITH MEALS - ergocalciferol 50,000 unit capsule (VITAMIN D2, DRISDOL) Take 1 capsule by mouth one time a week. - buPROPion SR (ZYBAN SR; WELLBUTRIN SR) 150 mg 12 hr tablet Take 2 tablets PO in the AM and 1 tablet PO in the PM - ondansetron orally disintegrating (ZOFRAN ODT) 4 mg disintegrating tablet Take 1 tablet by mouth every 8 hours as needed for nausea/vomiting. - blood sugar diagnostic (BLOOD GLUCOSE TEST) test strip Test blood sugar(s) 1 times daily. Dx: Other DM Code hypoglycemia e16.2 Insulin: No - famotidine (PEPCID) 20 mg tablet Take 1 tablet by mouth twice daily. - ofloxacin (FLOXIN) 0.3 % otic solution Use 5 Drops in both ears twice daily. - potassium chloride ER (K-DUR, KLOR-CON) 20 mEq tablet Take 20 mEq by mouth twice daily with meals. - ketoconazole (NIZORAL) 2 % cream APPLY TO THE AFFECTED AREA(S) at 600am and 1000pm - acetaminophen (TYLENOL 8 HOUR ORAL) Take 1,000 mg by mouth three times daily. - iqohcss-gjgoiohnj-byk rae D3 500 mg(1,250mg) -200 unit per tablet TWICE DAILY WITH MEALS - carvedilol (COREG) 12.5 mg tablet TAKE 1 TABLET BY MOUTH TWICE DAILY. must administer with a meal/food. - furosemide (LASIX) 40 mg tablet Take 40 mg by mouth once daily. - VITAMIN B COMPLEX ORAL Take by mouth. - nystatin (NYSTOP) powder Apply 1 application to affected area twice daily. - COMPOUNDED PRESCRIPTION Jobst stocking knee high with zipper 20-30 mmHg Dx:R60.0, S72.002A - Calcium Citrate-Vitamin D3 500 mg calcium -400 unit Chew Take 1 Each by mouth daily with food. - albuterol 90 mcg/Actuation INHALATION Aero Inhale 2 Puffs as instructed four times daily. USE DIRECTED Problem List As Of Date 10/21/2023 Noted Resolved Cervicalgia [M54.2] 01/14/2006 Pain in Joint, Shoulder Region [M25.519] 01/14/2006 01/23/2010 Unspecified Osteoporosis [M81.0] 02/07/2006 SHOULDER REGION DIS NEC [M25.819] DISC DEGENERATION NOS [[id number]] ESOPHAGEAL REFLUX [K21.9] DEPRESSIVE DISORDER NEC [F32.89] Neck Sprain and Strain [S13.9XXA] 07/14/2006 01/23/2010 INCISIONAL HERNIA [K43.2] 12/30/2006 TOBACCO USE DISORDER [F17.200] 01/26/2007 Acute Bronchitis [J20.9] 09/18/2007 01/23/2010 CHRONIC PAIN NEC [G89.29] 12/12/2008 Spondylosis [M47.9] 01/23/2010 Cervical arthritis [M47.812] 05/20/2010 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 [facility] ([id number]) 1950 F Date Time Provider Department 10/21/23 DANNA KRUEGER PSYCBE During your visit today, we recorded the following information about you: Monika Moffett LPN 10/21/2023 3:28 PM Signed Attempted to contact patient to schedule [facility] appointment. Mailbox is full and not accepting messages at this time. Monika Moffett LPN 10/25/2023 12:56 PM Signed Mailbox is full and not accepting messages. Monika Moffett LPN 10/28/2023 10:50 AM Signed Mailbox is full and not signed up for my chart. Brief note mailed to patient to call to schedule. Allergies As of Date: 10/21/2023 Noted Allergy Reaction MAXIDEX (DEXAMETHASONE) 03/26/2005 5 - Intolerance NSAIDS (NON-STEROIDAL ANTI-INFLAM* 5 5 - Intolerance Comments: not to take due to gastric bipass BONIVA (IBANDRONATE) 12/19/2012 8 - GI Upset Comments: Pain- hx gastric bypass. Intolerant to past biphosphonates. Sister with allergic response to reclast. DOXEPIN 02/16/2008 5 - Intolerance Comments: AM hangover Date Reviewed: 06/20/2023 Reviewed by: Glenda Durham LPN - Fully Assessed Reason for Visit: Appointment [186] Prescriptions as of 10/28/2023 - predniSONE (DELTASONE) 10 mg tablet Take 4 tabs daily for 3 days, then 2 tabs daily for 3 days, then 1 tab daily for 3 days with food. - MEDICATION, NON-DATABASE Stair lift - polyethylene glycol 3350 17 gram packet Take 1 Packet by mouth once daily. Dissolve dose in 4 - 8 ounces of liquid and take as directed. - senna-docusate (SENNA-S) 8.6-50 mg per tablet Take 1 tablet by mouth twice daily. - PARoxetine (PAXIL) 40 mg tablet Take 1 tablet by mouth once daily. - montelukast (SINGULAIR) 10 mg tablet Take 1 tablet by mouth daily at bedtime. For allergies - IFEREX 150 150 mg iron capsule TAKE 1 TABLET BY MOUTH EVERY DAY WITH MEALS - ergocalciferol 50,000 unit capsule (VITAMIN D2, DRISDOL) Take 1 capsule by mouth one time a week. - buPROPion SR (ZYBAN SR; WELLBUTRIN SR) 150 mg 12 hr tablet Take 2 tablets PO in the AM and 1 tablet PO in the PM - ondansetron orally disintegrating (ZOFRAN ODT) 4 mg disintegrating tablet Take 1 tablet by mouth every 8 hours as needed for nausea/vomiting. - blood sugar diagnostic (BLOOD GLUCOSE TEST) test strip Test blood sugar(s) 1 times daily. Dx: Other DM Code hypoglycemia e16.2 Insulin: No - famotidine (PEPCID) 20 mg tablet Take 1 tablet by mouth twice daily. - ofloxacin (FLOXIN) 0.3 % otic solution Use 5 Drops in both ears twice daily. - potassium chloride ER (K-DUR, KLOR-CON) 20 mEq tablet Take 20 mEq by mouth twice daily with meals. - ketoconazole (NIZORAL) 2 % cream APPLY TO THE AFFECTED AREA(S) at 600am and 1000pm - acetaminophen (TYLENOL 8 HOUR ORAL) Take 1,000 mg by mouth three times daily. - lkhnwyc-clthhpukd-gke rae D3 500 mg(1,250mg) -200 unit per tablet TWICE DAILY WITH MEALS - carvedilol (COREG) 12.5 mg tablet TAKE 1 TABLET BY MOUTH TWICE DAILY. must administer with a meal/food. - furosemide (LASIX) 40 mg tablet Take 40 mg by mouth once daily. - VITAMIN B COMPLEX ORAL Take by mouth. - nystatin (NYSTOP) powder Apply 1 application to affected area twice daily. - COMPOUNDED PRESCRIPTION Jobst stocking knee high with zipper 20-30 mmHg Dx:R60.0, S72.002A - Calcium Citrate-Vitamin D3 500 mg calcium -400 unit Chew Take 1 Each by mouth daily with food. - albuterol 90 mcg/Actuation INHALATION Aero Inhale 2 Puffs as instructed four times daily. USE DIRECTED Problem List As Of Date 10/21/2023 Noted Resolved Cervicalgia [M54.2] 01/14/2006 Pain in Joint, Shoulder Region [M25.519] 01/14/2006 01/23/2010 Unspecified Osteoporosis [M81.0] 02/07/2006 SHOULDER REGION DIS NEC [M25.819] DISC DEGENERATION NOS [[id number]] ESOPHAGEAL REFLUX [K21.9] DEPRESSIVE DISORDER NEC [F32.89] Neck Sprain and Strain [S13.9XXA] 07/14/2006 01/23/2010 INCISIONAL HERNIA [K43.2] 12/30/2006 TOBACCO USE DISORDER [F17.200] 01/26/2007 Acute Bronchitis [J20.9] 09/18/2007 01/23/2010 CHRONIC PAIN NEC [G89.29] 12/12/2008 Spondylosis [M47.9] 01/23/2010 Cervical arthritis [M47.812] 05/20/2010 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90] 10/15/2010 Venous insufficiency (chronic) (peripheral) [I8*11/01/2010 Chronic obstructive pulmonary disease (HCC) [J4*05/10/2011 Respiratory infection [J98.8] 02/07/2012 02/07/2012 Arthritis of knee, left [M17.12] 02/07/2012 Arthritis of right knee [M17.11] 02/07/2012 Chronic pain [G89.29] 05/14/2013 Knee pain [M25.569] 05/14/2013 DDD (degenerative disc disease), cervical [M50.*05/14/2013 DDD (degenerative disc disease), lumbar [M51.36]05/14/2013 Cervical spondylosis [M47.812] 05/14/2013 Diffuse myofascial pain syndrome [M79.18] (more content not included)... Normal [facility] CNOVon 06-20-2023 CNOV Office Visit (AGHWW1 ) MATTHIASTASNEEM I ([id number]) 1950 F Date Time Provider Department 06/20/23 10:45 AM [facility] During your visit today, we recorded the following information about you: Respiration Weight Height 20/minute 83 kg 1.524 m Bola Dobson MD 06/20/2023 10:36 AM Signed Patient presents with: Right Elbow - Post Op, Pain, Swelling SURGEON Bola Dobson MD PROCEDURE 03/24/2023 Right total elbow arthroplasty Radial ulnar nerve decompression, and transposition HISTORY OF PRESENT ILLNESS Tasneem Rizzo presents for post operative follow up 3 months from surgery. The patient is doing very well and is pleased to report that she does not have any pain at the elbow. She was not able to go to formal therapy but has achieved motion that allows her to use her right hand for hygiene, eating and activities of daily living. No new complaints on today's visit. Current Concerns: None Pain control: Well-controlled Currently taking pain medication:No Fever, chills or other signs of infection: Denies PHYSICAL EXAMINATION Right elbow Section shows normal alignment No significant swelling. No effusion present Incision(s) clean, dry, intact No erythema, cellulitis or drainage Incision lines are intact, no drainage noted. Scars are maturing nicely ROM: Elbow motion 20 to 140 degrees. Full pronation/supination Wrist and hand motion symmetric with the contralateral side Sensation:Normal sensation AIN/PIN/ulnar motor intact Brisk cap refill IMAGING X-rays 06/20/23 3 views of the right elbow show appropriate position and stability of the right elbow prosthesis. No interval change from prior imaging. ASSESSMENT AND PLAN ASSESSMENT/PLAN: 1. Status post right elbow joint replacement - ICD9: V43.62, ICD10: Z96.621 - XR ELBOW SPECIAL VIEWS AP/LAT/OTHER RIGHT The patient is healing well. She is pleased with the results. I recommended that we follow-up at the 1 year abrahan to assess her progress and discuss long-term surveillance of the arthroplasty. All of her questions were answered to her satisfaction. Bola Dobson MD Pt education provided on lifelong lifting and activity restrictions. Patient was instructed to call the office with any questions and/or concerns Allergies As of Date: 06/20/2023 Noted Allergy Reaction MAXIDEX (DEXAMETHASONE) 03/26/2005 5 - Intolerance NSAIDS (NON-STEROIDAL ANTI-INFLAM* 5 5 - Intolerance Comments: not to take due to gastric bipass BONIVA (IBANDRONATE) 12/19/2012 8 - GI Upset Comments: Pain- hx gastric bypass. Intolerant to past biphosphonates. Sister with allergic response to reclast. DOXEPIN 02/16/2008 5 - Intolerance Comments: AM hangover Date Reviewed: 06/20/2023 Reviewed by: Glenda Durham LPN - Fully Assessed Reason for Visit: Post Op [174] Pain [78] Swelling [205] Primary Visit Diagnosis:Status post right elbow joint replacement [Z96.621] Order(s):XR ELBOW SPECIAL VIEWS AP/LAT/OTHER RIGHT [[id number]] Order #: [id number] Prescriptions as of 12/12/2023 - ergocalciferol 50,000 unit capsule (VITAMIN D2, DRISDOL) Take 1 capsule by mouth one time a week. - blood sugar diagnostic (BLOOD GLUCOSE TEST) test strip Test blood sugar(s) 1 times daily. Dx: Other DM Code hypoglycemia e16.2 Insulin: No - famotidine (PEPCID) 20 mg tablet Take 1 tablet by mouth two times a day. - nystatin (NYSTOP) powder Apply 1 application to affected area two times a day. - ondansetron orally disintegrating (ZOFRAN ODT) 4 mg disintegrating tablet Take 1 tablet by mouth every 6 hours as needed for nausea/vomiting. - gabapentin (NEURONTIN) 300 mg capsule Take 1 capsule by mouth three times a day for 90 days. - gabapentin (NEURONTIN) 100 mg capsule Take 1-2 capsules by mouth three times a day for 30 days. (Add to 300 mg capsule three times a day) - ketoconazole (NIZORAL) 2 % shampoo Apply to affected area once daily as needed. - ketoconazole (NIZORAL) 2 % cream APPLY TO THE AFFECTED AREA(S) at 600am and 1000pm - venlafaxine ER (EFFEXOR XR) 37.5 mg 24 hr capsule Take 1 capsule by mouth once daily. - carbamide peroxide (DEBROX) 6.5 % otic solution Use 5 Drops in the right ear once daily. - MEDICATION, NON-DATABASE Stair lift - polyethylene glycol 3350 17 gram packet Take 1 Packet by mouth once daily. Dissolve dose in 4 - 8 ounces of liquid and take as directed. - senna-docusate (SENNA-S) 8.6-50 mg per tablet Take 1 tablet by mouth twice daily. - PARoxetine (PAXIL) 40 mg tablet Take 1 tablet by mouth once daily. - montelukast (SINGULAIR) 10 mg tablet Take 1 tablet by mouth daily at bedtime. For allergies - IFEREX 150 150 mg iron capsule TAKE 1 TABLET BY MOUTH EVERY DAY WITH MEALS - buPROPion SR (ZYBAN SR; WELLBUTRIN SR) 150 mg 12 hr tablet Take 2 tablets PO in the AM and 1 tablet PO in the PM (more content not included)... Normal [facility] TASNEEM RIZZO I ([id number]) 1950 F Date Time Provider Department 06/09/23 [facility] During your visit today, we recorded the following information about you: Manda Curry 06/09/2023 9:35 AM Signed Pt called stating she would like to get a Peptids injection. Stated this is for someone who has had gastric bypass but has gained weight. She states it needs done in office. She understands insurance may not pay for it and plans to pay for it out of pocket if that is the case. She wants to have it already for the appointment so it can be done in one appointment if possible. Concerned insurance will not pay for 2 visits for the same thing. Kei Pineda DO 06/15/2023 9:10 PM Signed This isn't something I am familiar with. Please inform patient DO Devin Mcintosh M Robin, LAMONT 06/16/2023 8:36 AM Signed Phoned patient and given provider's message below. Patient asking if pcp can look it up and tell her if this is something she can get at pcp office? Please advise patient. Patient was scheduled today with Extraction Operator to receive the injection. Cancelled appt. Patient will re-schedule if pcp office able to give injection. Lizzie Meier APRN.RAY 06/16/2023 12:22 PM Signed No, this is not something we do at PCP office. Pt will need to reach out to bariatric team and surgical team that did gastric bypass about this. Thank you, Lizzie Meier APRN.RAY Nicolle Dumont 06/16/2023 2:26 PM Signed Pt informed, verbalized understanding. Nicolle Dumont MA Allergies As of Date: 06/09/2023 Noted Allergy Reaction MAXIDEX (DEXAMETHASONE) 03/26/2005 5 - Intolerance NSAIDS (NON-STEROIDAL ANTI-INFLAM* 5 5 - Intolerance Comments: not to take due to gastric bipass BONIVA (IBANDRONATE) 12/19/2012 8 - GI Upset Comments: Pain- hx gastric bypass. Intolerant to past biphosphonates. Sister with allergic response to reclast. DOXEPIN 02/16/2008 5 - Intolerance Comments: AM hangover Date Reviewed: 05/30/2023 Reviewed by: Angely Webb Cma - Fully Assessed Reason for Visit: Patient Question [1477] Prescriptions as of 06/16/2023 - MEDICATION, NON-DATABASE Stair lift - polyethylene glycol 3350 17 gram packet Take 1 Packet by mouth once daily. Dissolve dose in 4 - 8 ounces of liquid and take as directed. - senna-docusate (SENNA-S) 8.6-50 mg per tablet Take 1 tablet by mouth twice daily. - PARoxetine (PAXIL) 40 mg tablet Take 1 tablet by mouth once daily. - montelukast (SINGULAIR) 10 mg tablet Take 1 tablet by mouth daily at bedtime. For allergies - IFEREX 150 150 mg iron capsule TAKE 1 TABLET BY MOUTH EVERY DAY WITH MEALS - ergocalciferol 50,000 unit capsule (VITAMIN D2, DRISDOL) Take 1 capsule by mouth one time a week. - buPROPion SR (ZYBAN SR; WELLBUTRIN SR) 150 mg 12 hr tablet Take 2 tablets PO in the AM and 1 tablet PO in the PM - ondansetron orally disintegrating (ZOFRAN ODT) 4 mg disintegrating tablet Take 1 tablet by mouth every 8 hours as needed for nausea/vomiting. - blood sugar diagnostic (BLOOD GLUCOSE TEST) test strip Test blood sugar(s) 1 times daily. Dx: Other DM Code hypoglycemia e16.2 Insulin: No - famotidine (PEPCID) 20 mg tablet Take 1 tablet by mouth twice daily. - ofloxacin (FLOXIN) 0.3 % otic solution Use 5 Drops in both ears twice daily. - potassium chloride ER (K-DUR, KLOR-CON) 20 mEq tablet Take 20 mEq by mouth twice daily with meals. - ketoconazole (NIZORAL) 2 % cream APPLY TO THE AFFECTED AREA(S) at 600am and 1000pm - acetaminophen (TYLENOL 8 HOUR ORAL) Take 1,000 mg by mouth three times daily. - lpbsucg-ldjpyarua-tri rae D3 500 mg(1,250mg) -200 unit per tablet TWICE DAILY WITH MEALS - carvedilol (COREG) 12.5 mg tablet TAKE 1 TABLET BY MOUTH TWICE DAILY. must administer with a meal/food. - furosemide (LASIX) 40 mg tablet Take 40 mg by mouth once daily. - VITAMIN B COMPLEX ORAL Take by mouth. - nystatin (NYSTOP) powder Apply 1 application to affected area twice daily. - COMPOUNDED PRESCRIPTION Jobst stocking knee high with zipper 20-30 mmHg Dx:R60.0, S72.002A - Calcium Citrate-Vitamin D3 500 mg calcium -400 unit Chew Take 1 Each by mouth daily with food. - albuterol 90 mcg/Actuation INHALATION Aero Inhale 2 Puffs as instructed four times daily. USE DIRECTED Problem List As Of Date 06/09/2023 Noted Resolved Cervicalgia [M54.2] 01/14/2006 Pain in Joint, Shoulder Region [M25.519] 01/14/2006 01/23/2010 Unspecified Osteoporosis [M81.0] 02/07/2006 SHOULDER REGION DIS NEC [M25.819] DISC DEGENERATION NOS [[id number]] ESOPHAGEAL REFLUX [K21.9] DEPRESSIVE DISORDER NEC [F32.89] Neck Sprain and Strain [S13.9XXA] 07/14/2006 01/23/2010 INCISIONAL HERNIA [K43.2] 12/30/2006 TOBACCO USE DISORDER [F17.200] 01/26/2007 Acute Bronchitis [J20.9] 09/18/2007 01/23/2010 CHRONIC PAIN NEC [G89.29] 12/13/19 (more content not included)... Normal [facility] CNOVon 05-30-2023 CNOV Office Visit (FAMPWS ) TASNEEM RIZZO I ([id number]) 1950 F Date Time Provider Department 05/30/23 9:40 AM JOSE TA During your visit today, we recorded the following information about you: Pulse Respiration Blood pressure Weight 101/minute 16/minute 136/74 83 kg Jose Ta, DIRECTOR OF BUSINESS DEVELOPMENT.BULKING MACHINE OPERATOR 05/30/2023 9:47 AM Signed Chief Complaint Patient presents with: Follow Up HPI Tasneem Rizzo is a 73 year old female who presents here today for Above Complaints.. Patient presents for itching. Patient reports she has not started any new medications, used any new soaps, shampoos, or laundry detergents. Patient reports it started on her arms but has now started to spread. Past medical history, appointments, medications, allergies reviewed. Previous Medical History PAST MEDICAL HISTORY Diagnosis Date Chronic obstructive pulmonary disease (COPD) (HCC) Degeneration of intervertebral disc, site unspecified Depressive disorder, not elsewhere classified Esophageal reflux Hypothyroidism Obstructive sleep apnea Osteoporosis, unspecified Other affections of shoulder region, not elsewhere classified Right elbow pain Previous Surgical History PAST SURGICAL HISTORY Procedure Laterality Date ARTHROSCOPY KNEE DIAGNOSTIC W/WO SYNOVIAL BX SPX Arthroscopy, knee DELIVERY ONLY , low cervical CHOLECYSTECTOMY Cholecystectomy IMPLANT MESH OPN HERNIA RPR/DEBRIDEMENT CLOSURE 03/06/07 PAST SURGICAL HISTORY OF 03/27/2004 gastric bypass RPR 1ST INGUN HRNA AGE 3 YRS/> REDUCIBLE Hernia repair, inguinal TONSILLECTOMY PRIMARY/SECONDARY Tonsillectomy UNLIS LAPS PX HRNAP HERNIORRHAPHY HERNIOTOMY 03/06/07 Family History FAMILY HISTORY Problem Relation Age of Onset Breast Cancer Mother cva other (cva [Other]) Father Diabetes Father Borderline Diabetes Maternal Grandmother Patient Allergies ALLERGIES Allergen Reactions Maxidex [Dexamethas* Intolerance Nsaids (Non-Steroid* Intolerance not to take due to gastric bipass Boniva [Ibandronate] GI Upset Pain- hx gastric bypass. Intolerant to past biphosphonates. Sister with allergic response to reclast. Doxepin Intolerance AM hangover Current Medications Current Outpatient Medications on File Prior to Visit Medication Sig MEDICATION, NON-DATABASE Stair lift LORazepam (ATIVAN) 0.5 mg Take 1 tablet by mouth three times a day as needed for up to 30 days. polyethylene glycol 3350 17 gram packet Take 1 Packet by mouth once daily. Dissolve dose in 4 - 8 ounces of liquid and take as directed. senna-docusate (SENNA-S) 8.6-50 mg per tablet Take 1 tablet by mouth twice daily. PARoxetine (PAXIL) 40 mg tablet Take 1 tablet by mouth once daily. montelukast (SINGULAIR) 10 mg tablet Take 1 tablet by mouth daily at bedtime. For allergies IFEREX 150 150 mg iron capsule TAKE 1 TABLET BY MOUTH EVERY DAY WITH MEALS ergocalciferol 50,000 unit capsule (VITAMIN D2, DRISDOL) Take 1 capsule by mouth one time a week. buPROPion SR (ZYBAN SR; WELLBUTRIN SR) 150 mg 12 hr tablet Take 2 tablets PO in the AM and 1 tablet PO in the PM ondansetron orally disintegrating (ZOFRAN ODT) 4 mg disintegrating tablet Take 1 tablet by mouth every 8 hours as needed for nausea/vomiting. blood sugar diagnostic (BLOOD GLUCOSE TEST) test strip Test blood sugar(s) 1 times daily. Dx: Other DM Code hypoglycemia e16.2 Insulin: No famotidine (PEPCID) 20 mg tablet Take 1 tablet by mouth twice daily. ofloxacin (FLOXIN) 0.3 % otic solution Use 5 Drops in both ears twice daily. potassium chloride ER (K-DUR, KLOR-CON) 20 mEq tablet Take 20 mEq by mouth twice daily with meals. ketoconazole (NIZORAL) 2 % cream APPLY TO THE AFFECTED AREA(S) at 600am and 1000pm acetaminophen (TYLENOL 8 HOUR ORAL) Take 1,000 mg by mouth three times daily. yclzzhz-vgsanuvzs-vew rae D3 500 mg(1,250mg) -200 unit per tablet TWICE DAILY WITH MEALS carvedilol (COREG) 12.5 mg tablet TAKE 1 TABLET BY MOUTH TWICE DAILY. must administer with a meal/food. furosemide (LASIX) 40 mg tablet Take 40 mg by mouth once daily. VITAMIN B COMPLEX ORAL Take by mouth. nystatin (NYSTOP) powder Apply 1 application to affected area twice daily. COMPOUNDED PRESCRIPTION Jobst stocking knee high with zipper 20-30 mmHg Dx:R60.0, S72.002A Calcium Citrate-Vitamin D3 500 mg calcium -400 unit Chew Take 1 Each by mouth daily with food. albuterol 90 mcg/Actuation INHALATION Aero Inhale 2 Puffs as instructed four times daily. USE DIRECTED No current facility-administered medications on file prior to visit. Social History Social History Tobacco Use Smoking status: Former Packs/day: .5 Types: Cigarettes Quit date: 04/27/2015 Years since quittin.0 Smokeless tobacco: Never Substance Use Topics Alcohol use: No Drug use: No Review of Symptoms REVIEW OF SYSTEMS SEE HPI EX (more content not included)... [facility] TASNEEM RIZZO I ([id number]) 1950 F Date Time Provider Department 05/11/23 [facility] During your visit today, we recorded the following information about you: Hailey Sevilla LPN 05/11/2023 4:33 PM Signed Pt's nephew Miguel calling to request an order for a stair lift. States the one pt has is old AND obsolete AND she needs a new one. Miguel states he checked with [facility] AND they do carry them. Miguel states order just needs to say Stair Lift. Pt's insurance will not cover it AND it will be an out of pocket expense. Pt was discharged from TCU 102/. Pt was scheduled for Hosp FU 05/12/23 but canceled since stair lift is not completed. [facility] Gerardo Diaz LPN, APRN.RAY 05/16/2023 1:56 PM Signed Per insurance will need an assessment prior to ordering. Gerardo Milligan APRN.Kim Schmid LPN 05/16/2023 3:29 PM Signed He is not going through insurance. Self pay. Gerardo Milligan APRN.CNP 05/16/2023 3:35 PM Signed Order is in the outbox in our office. Gerardo Milligan APRN.Elodia Anders RN 05/16/2023 4:07 PM Signed Order faxed to [facility] as requested. Elodia Nguyễn RN Allergies As of Date: 05/11/2023 Noted Allergy Reaction MAXIDEX (DEXAMETHASONE) 03/26/2005 5 - Intolerance NSAIDS (NON-STEROIDAL ANTI-INFLAM* 5 5 - Intolerance Comments: not to take due to gastric bipass BONIVA (IBANDRONATE) 12/19/2012 8 - GI Upset Comments: Pain- hx gastric bypass. Intolerant to past biphosphonates. Sister with allergic response to reclast. DOXEPIN 02/16/2008 5 - Intolerance Comments: AM hangover Date Reviewed: 04/15/2023 Reviewed by: Bola Dobson MD - Fully Assessed Reason for Visit: Orders [681] Cmt: Medical supply Primary Visit Diagnosis:Cervicalgia [M54.2] Other Visit Diagnoses:Other chronic pain [G89.29] Diffuse myofascial pain syndrome [M79.18] Chronic knee pain, unspecified laterality [M25.569, G89.29] Order(s):MEDICATION, NON-DATABASEStair liftDisp: 1 EachRfl: 0 Prescriptions as of 05/16/2023 - MEDICATION, NON-DATABASE Stair lift - LORazepam (ATIVAN) 0.5 mg Take 1 tablet by mouth three times a day as needed for up to 30 days. - polyethylene glycol 3350 17 gram packet Take 1 Packet by mouth once daily. Dissolve dose in 4 - 8 ounces of liquid and take as directed. - senna-docusate (SENNA-S) 8.6-50 mg per tablet Take 1 tablet by mouth twice daily. - PARoxetine (PAXIL) 40 mg tablet Take 1 tablet by mouth once daily. - montelukast (SINGULAIR) 10 mg tablet Take 1 tablet by mouth daily at bedtime. For allergies - IFEREX 150 150 mg iron capsule TAKE 1 TABLET BY MOUTH EVERY DAY WITH MEALS - ergocalciferol 50,000 unit capsule (VITAMIN D2, DRISDOL) Take 1 capsule by mouth one time a week. - buPROPion SR (ZYBAN SR; WELLBUTRIN SR) 150 mg 12 hr tablet Take 2 tablets PO in the AM and 1 tablet PO in the PM - ondansetron orally disintegrating (ZOFRAN ODT) 4 mg disintegrating tablet Take 1 tablet by mouth every 8 hours as needed for nausea/vomiting. - blood sugar diagnostic (BLOOD GLUCOSE TEST) test strip Test blood sugar(s) 1 times daily. Dx: Other DM Code hypoglycemia e16.2 Insulin: No - famotidine (PEPCID) 20 mg tablet Take 1 tablet by mouth twice daily. - ofloxacin (FLOXIN) 0.3 % otic solution Use 5 Drops in both ears twice daily. - potassium chloride ER (K-DUR, KLOR-CON) 20 mEq tablet Take 20 mEq by mouth twice daily with meals. - ketoconazole (NIZORAL) 2 % cream APPLY TO THE AFFECTED AREA(S) at 600am and 1000pm - acetaminophen (TYLENOL 8 HOUR ORAL) Take 1,000 mg by mouth three times daily. - erhaziz-deivrbciu-thk rae D3 500 mg(1,250mg) -200 unit per tablet TWICE DAILY WITH MEALS - carvedilol (COREG) 12.5 mg tablet TAKE 1 TABLET BY MOUTH TWICE DAILY. must administer with a meal/food. - furosemide (LASIX) 40 mg tablet Take 40 mg by mouth once daily. - VITAMIN B COMPLEX ORAL Take by mouth. - nystatin (NYSTOP) powder Apply 1 application to affected area twice daily. - COMPOUNDED PRESCRIPTION Jobst stocking knee high with zipper 20-30 mmHg Dx:R60.0, S72.002A - Calcium Citrate-Vitamin D3 500 mg calcium -400 unit Chew Take 1 Each by mouth daily with food. - albuterol 90 mcg/Actuation INHALATION Aero Inhale 2 Puffs as instructed four times daily. USE DIRECTED Problem List As Of Date 05/11/2023 Noted Resolved Cervicalgia [M54.2] 01/14/2006 Pain in Joint, Shoulder Region [M25.519] 01/14/2006 01/23/2010 Unspecified Osteoporosis [M81.0] 02/07/2006 SHOULDER REGION DIS NEC [M25.819] DISC DEGENERATION NOS [[id number]] ESOPHAGEAL REFLUX [K21.9] DEPRESSIVE DISORDER NEC [F32.89] Neck Sprain and Strain [S13.9XXA] 07/14/2006 01/23/2010 INCISIONAL HERNIA [K43.2] 12/30/2006 TOBACCO USE DISORDER [F17.200] 01/26/2007 Acute Bronchitis [J20 (more content not included)... Normal [facility] CNPNon 04-27-2023 CNPN Telephone (FAMWS) MATTHIASTASNEEM Baltazar ([id number]) 1950 F Date Time Provider Department 04/27/23 [facility] During your visit today, we recorded the following information about you: Tish Reis RN 04/27/2023 8:55 AM Tello Grimm with [facility] calling. States patient will be discharging from [facility] on 05/09. Pt is there with right humerus fracture and right total elbow. [facility] would like to see patient starting on 05/10/23. Asking if Edwin Mathis will follow pt for orders? Please call Sirisha at [phone]. LAMONT Quijano Jordan L, DO 04/28/2023 9:46 AM Signed Yes Also please make sure she has a hospital follow up with Lizzie or DO Dee Kebede Linda M, LPN 04/28/2023 10:25 AM Signed Called Sirisha and gave information provided. She voices understanding. Called pt to schedule appointment phone just rings and rings . Will need to try again but pt is still in hospital until 05/09 . Allergies As of Date: 04/27/2023 Noted Allergy Reaction MAXIDEX (DEXAMETHASONE) 03/26/2005 5 - Intolerance NSAIDS (NON-STEROIDAL ANTI-INFLAM* 5 5 - Intolerance Comments: not to take due to gastric bipass BONIVA (IBANDRONATE) 12/19/2012 8 - GI Upset Comments: Pain- hx gastric bypass. Intolerant to past biphosphonates. Sister with allergic response to reclast. DOXEPIN 02/16/2008 5 - Intolerance Comments: AM hangover Date Reviewed: 04/15/2023 Reviewed by: Bola Dobson MD - Fully Assessed Reason for Visit: [facility] Orders [Other] Prescriptions as of 05/11/2023 - polyethylene glycol 3350 17 gram packet Take 1 Packet by mouth once daily. Dissolve dose in 4 - 8 ounces of liquid and take as directed. - senna-docusate (SENNA-S) 8.6-50 mg per tablet Take 1 tablet by mouth twice daily. - LORazepam (ATIVAN) 0.5 mg Take 0.5 mg by mouth three times daily as needed. - PARoxetine (PAXIL) 40 mg tablet Take 1 tablet by mouth once daily. - montelukast (SINGULAIR) 10 mg tablet Take 1 tablet by mouth daily at bedtime. For allergies - IFEREX 150 150 mg iron capsule TAKE 1 TABLET BY MOUTH EVERY DAY WITH MEALS - ergocalciferol 50,000 unit capsule (VITAMIN D2, DRISDOL) Take 1 capsule by mouth one time a week. - buPROPion SR (ZYBAN SR; WELLBUTRIN SR) 150 mg 12 hr tablet Take 2 tablets PO in the AM and 1 tablet PO in the PM - ondansetron orally disintegrating (ZOFRAN ODT) 4 mg disintegrating tablet Take 1 tablet by mouth every 8 hours as needed for nausea/vomiting. - blood sugar diagnostic (BLOOD GLUCOSE TEST) test strip Test blood sugar(s) 1 times daily. Dx: Other DM Code hypoglycemia e16.2 Insulin: No - famotidine (PEPCID) 20 mg tablet Take 1 tablet by mouth twice daily. - ofloxacin (FLOXIN) 0.3 % otic solution Use 5 Drops in both ears twice daily. - potassium chloride ER (K-DUR, KLOR-CON) 20 mEq tablet Take 20 mEq by mouth twice daily with meals. - ketoconazole (NIZORAL) 2 % cream APPLY TO THE AFFECTED AREA(S) at 600am and 1000pm - acetaminophen (TYLENOL 8 HOUR ORAL) Take 1,000 mg by mouth three times daily. - vmubjtx-vcmftjuys-tpm rae D3 500 mg(1,250mg) -200 unit per tablet TWICE DAILY WITH MEALS - carvedilol (COREG) 12.5 mg tablet TAKE 1 TABLET BY MOUTH TWICE DAILY. must administer with a meal/food. - furosemide (LASIX) 40 mg tablet Take 40 mg by mouth once daily. - VITAMIN B COMPLEX ORAL Take by mouth. - nystatin (NYSTOP) powder Apply 1 application to affected area twice daily. - COMPOUNDED PRESCRIPTION Jobst stocking knee high with zipper 20-30 mmHg Dx:R60.0, S72.002A - Calcium Citrate-Vitamin D3 500 mg calcium -400 unit Chew Take 1 Each by mouth daily with food. - albuterol 90 mcg/Actuation INHALATION Aero Inhale 2 Puffs as instructed four times daily. USE DIRECTED Problem List As Of Date 04/27/2023 Noted Resolved Cervicalgia [M54.2] 01/14/2006 Pain in Joint, Shoulder Region [M25.519] 01/14/2006 01/23/2010 Unspecified Osteoporosis [M81.0] 02/07/2006 SHOULDER REGION DIS NEC [M25.819] DISC DEGENERATION NOS [[id number]] ESOPHAGEAL REFLUX [K21.9] DEPRESSIVE DISORDER NEC [F32.89] Neck Sprain and Strain [S13.9XXA] 07/14/2006 01/23/2010 INCISIONAL HERNIA [K43.2] 12/30/2006 TOBACCO USE DISORDER [F17.200] 01/26/2007 Acute Bronchitis [J20.9] 09/18/2007 01/23/2010 CHRONIC PAIN NEC [G89.29] 12/12/2008 Spondylosis [M47.9] 01/23/2010 Cervical arthritis [M47.812] 05/20/2010 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 Normal [facility] CNOVon 04-15-2023 CNOV Office Visit (AGHWW1 ) TASNEEM RIZZO I ([id number]) 1950 F Date Time Provider Department 04/15/23 10:00 AM [facility] During your visit today, we recorded the following information about you: Respiration Weight Height 20/minute 79.4 kg 1.524 m Bola Dobson MD 04/15/2023 12:48 PM Signed Patient presents with: Right Elbow - New, Pain, Swelling SURGEON Bola Dobson MD PROCEDURE 03/24/2023 Right total elbow arthroplasty Radial ulnar nerve decompression, and transposition HISTORY OF PRESENT ILLNESS Tasneem Rizzo presents for post operative follow up 3 weeks from surgery. The patient is doing quite well. She had a multitude of transportation conflicts and issues from her rehabilitation facility. She reports an overall improvement in her pain. She has maintained the splint. No numbness or tingling. Current Concerns: Return to typical upper extremity use Pain control: Well-controlled Currently taking pain medication:No Fever, chills or other signs of infection: Denies PHYSICAL EXAMINATION Right upper extremity Splint taken down Inspection shows anatomic alignment at the elbow There is some mild residual swelling, no hematoma present Incision(s) lean, dry, intact. Steri-Strips in place Skin tears x2 distally along the forearm and wrist, present from prior admission with interval healing No erythema, cellulitis or drainage Sutures intact, will resorb. Ends of Monocryl trimmed ROM: Elbow motion 30 to 100 degrees, nonpainful Sensation:Normal sensation AIN/PIN/ulnar motor intact Brisk cap refill IMAGING X-rays 04/15/23 3 views of the right elbow show appropriate alignment of the implant arthroplasty. Cement mantle appears good and uniform. No other acute process noted. ASSESSMENT AND PLAN ASSESSMENT/PLAN: 1. Status post right elbow joint replacement - ICD9: V43.62, ICD10: Z96.621 I discussed the diagnosis with the patient. Her wound is healing uneventfully. There was a delay in her initial follow-up and I would like to initiate formal physical therapy. Forms were filled out from her rehabilitation facility, there is inpatient therapy at that site. I would like to follow-up in 6 weeks to ensure appropriate progress. All of her questions were answered to her satisfaction. Bola Dobson MD Pt education provided on range of motion exercises. Patient was instructed to call the office with any questions and/or concerns Allergies As of Date: 04/15/2023 Noted Allergy Reaction MAXIDEX (DEXAMETHASONE) 03/26/2005 5 - Intolerance NSAIDS (NON-STEROIDAL ANTI-INFLAM* 5 5 - Intolerance Comments: not to take due to gastric bipass BONIVA (IBANDRONATE) 12/19/2012 8 - GI Upset Comments: Pain- hx gastric bypass. Intolerant to past biphosphonates. Sister with allergic response to reclast. DOXEPIN 02/16/2008 5 - Intolerance Comments: AM hangover Date Reviewed: 04/15/2023 Reviewed by: Bola Dobson MD - Fully Assessed Reason for Visit: New [[id number]] Pain [78] Swelling [205] Primary Visit Diagnosis:Status post right elbow joint replacement [Z96.621] Order(s):XR ELBOW SPECIAL VIEWS AP/LAT/OTHER RIGHT [[id number]] Order #: [id number] Prescriptions as of 04/15/2023 - polyethylene glycol 3350 17 gram packet Take 1 Packet by mouth once daily. Dissolve dose in 4 - 8 ounces of liquid and take as directed. - senna-docusate (SENNA-S) 8.6-50 mg per tablet Take 1 tablet by mouth twice daily. - LORazepam (ATIVAN) 0.5 mg Take 0.5 mg by mouth three times daily as needed. - PARoxetine (PAXIL) 40 mg tablet Take 1 tablet by mouth once daily. - montelukast (SINGULAIR) 10 mg tablet Take 1 tablet by mouth daily at bedtime. For allergies - IFEREX 150 150 mg iron capsule TAKE 1 TABLET BY MOUTH EVERY DAY WITH MEALS - ergocalciferol 50,000 unit capsule (VITAMIN D2, DRISDOL) Take 1 capsule by mouth one time a week. - buPROPion SR (ZYBAN SR; WELLBUTRIN SR) 150 mg 12 hr tablet Take 2 tablets PO in the AM and 1 tablet PO in the PM - ondansetron orally disintegrating (ZOFRAN ODT) 4 mg disintegrating tablet Take 1 tablet by mouth every 8 hours as needed for nausea/vomiting. - blood sugar diagnostic (BLOOD GLUCOSE TEST) test strip Test blood sugar(s) 1 times daily. Dx: Other DM Code hypoglycemia e16.2 Insulin: No - famotidine (PEPCID) 20 mg tablet Take 1 tablet by mouth twice daily. - ofloxacin (FLOXIN) 0.3 % otic solution Use 5 Drops in both ears twice daily. - potassium chloride ER (K-DUR, KLOR-CON) 20 mEq tablet Take 20 mEq by mouth twice daily with meals. - ketoconazole (NIZORAL) 2 % cream APPLY TO THE AFFECTED AREA(S) at 600am and 1000pm - acetaminophen (TYLENOL 8 HOUR ORAL) Take 1,000 mg by mouth three times daily. - gpmtymy-ytolhkiks-tdm rae D3 500 mg(1,250mg) -200 unit per tablet TWICE DAILY WITH MEALS - carvedilol (COREG) 12.5 mg tablet (more content not included)... Normal [facility] 04-13-2023 [facility] Telephone (AGPOB3) TASNEEM RIZZO I ([id number]) 1950 F Date Time Provider Department 04/13/23 [facility] During your visit today, we recorded the following information about you: Tiffanie Mccord 04/13/2023 2:53 PM Signed ----- Message from Xuan Meyers sent at 04/13/2023 1:45 PM EDT ----- Regarding: ortho/reschedule appt Subject Line Format: Orthopedics / [Provider Name or Open AND Body Part ] / [Issue] Patient has been identified by name and Date of (Y/N): y Patient: Tasneem Rizzo Date of : 1950 Previous Provider Seen: esterle Body Part(s) Identified: r elbow Diagnosis/Reason For Visit: reschedule appt Reason for the call/escalation: pt went wrong location for 04/13 appt would like to reschedule appt as soon as possible to remove cast If reason for call/escalation is discharge from ED/ER or Hospital, which facility was the patient seen at: na Was an appointment scheduled (Y/N): n Person calling if other than patient: abhi Return call to if other than patient: abhi Chele contact number: [phone] Thank you, Xuan Meyers April 13, 2023 1:46 PM Allergies As of Date: 04/13/2023 Noted Allergy Reaction MAXIDEX (DEXAMETHASONE) 03/26/2005 5 - Intolerance NSAIDS (NON-STEROIDAL ANTI-INFLAM* 5 5 - Intolerance Comments: not to take due to gastric bipass BONIVA (IBANDRONATE) 12/19/2012 8 - GI Upset Comments: Pain- hx gastric bypass. Intolerant to past biphosphonates. Sister with allergic response to reclast. DOXEPIN 02/16/2008 5 - Intolerance Comments: AM hangover Date Reviewed: 03/25/2023 Reviewed by: Love Martinez RN - Fully Assessed Reason for Visit: Appointment Rescheduled [1024] Prescriptions as of 04/13/2023 - polyethylene glycol 3350 17 gram packet Take 1 Packet by mouth once daily. Dissolve dose in 4 - 8 ounces of liquid and take as directed. - senna-docusate (SENNA-S) 8.6-50 mg per tablet Take 1 tablet by mouth twice daily. - LORazepam (ATIVAN) 0.5 mg Take 0.5 mg by mouth three times daily as needed. - PARoxetine (PAXIL) 40 mg tablet Take 1 tablet by mouth once daily. - montelukast (SINGULAIR) 10 mg tablet Take 1 tablet by mouth daily at bedtime. For allergies - IFEREX 150 150 mg iron capsule TAKE 1 TABLET BY MOUTH EVERY DAY WITH MEALS - ergocalciferol 50,000 unit capsule (VITAMIN D2, DRISDOL) Take 1 capsule by mouth one time a week. - buPROPion SR (ZYBAN SR; WELLBUTRIN SR) 150 mg 12 hr tablet Take 2 tablets PO in the AM and 1 tablet PO in the PM - ondansetron orally disintegrating (ZOFRAN ODT) 4 mg disintegrating tablet Take 1 tablet by mouth every 8 hours as needed for nausea/vomiting. - blood sugar diagnostic (BLOOD GLUCOSE TEST) test strip Test blood sugar(s) 1 times daily. Dx: Other DM Code hypoglycemia e16.2 Insulin: No - famotidine (PEPCID) 20 mg tablet Take 1 tablet by mouth twice daily. - ofloxacin (FLOXIN) 0.3 % otic solution Use 5 Drops in both ears twice daily. - potassium chloride ER (K-DUR, KLOR-CON) 20 mEq tablet Take 20 mEq by mouth twice daily with meals. - ketoconazole (NIZORAL) 2 % cream APPLY TO THE AFFECTED AREA(S) at 600am and 1000pm - acetaminophen (TYLENOL 8 HOUR ORAL) Take 1,000 mg by mouth three times daily. - lftomly-mkxecklga-afu rae D3 500 mg(1,250mg) -200 unit per tablet TWICE DAILY WITH MEALS - carvedilol (COREG) 12.5 mg tablet TAKE 1 TABLET BY MOUTH TWICE DAILY. must administer with a meal/food. - furosemide (LASIX) 40 mg tablet Take 40 mg by mouth once daily. - VITAMIN B COMPLEX ORAL Take by mouth. - nystatin (NYSTOP) powder Apply 1 application to affected area twice daily. - COMPOUNDED PRESCRIPTION Jobst stocking knee high with zipper 20-30 mmHg Dx:R60.0, S72.002A - Calcium Citrate-Vitamin D3 500 mg calcium -400 unit Chew Take 1 Each by mouth daily with food. - albuterol 90 mcg/Actuation INHALATION Aero Inhale 2 Puffs as instructed four times daily. USE DIRECTED Problem List As Of Date 04/13/2023 Noted Resolved Cervicalgia [M54.2] 01/14/2006 Pain in Joint, Shoulder Region [M25.519] 01/14/2006 01/23/2010 Unspecified Osteoporosis [M81.0] 02/07/2006 SHOULDER REGION DIS NEC [M25.819] DISC DEGENERATION NOS [[id number]] ESOPHAGEAL REFLUX [K21.9] DEPRESSIVE DISORDER NEC [F32.89] Neck Sprain and Strain [S13.9XXA] 07/14/2006 01/23/2010 INCISIONAL HERNIA [K43.2] 12/30/2006 TOBACCO USE DISORDER [F17.200] 01/26/2007 Acute Bronchitis [J20.9] 09/18/2007 01/23/2010 CHRONIC PAIN NEC [G89.29] 12/12/2008 Spondylosis [M47.9] 01/23/2010 Cervical arthritis [M47.812] 05/20/2010 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 Normal [facility]NPNon 04-08[facility]2023 [facility] TASNEEM RIZZO I ([id number]) 1950 F Date Time Provider Department 04/08/23 [facility] During your visit today, we recorded the following information about you: Jayde Estrada, RN 04/08/2023 11:05 AM Tello Frank with [facility] called to ask when Pt last influenza vaccine she had with us was. I let her know the last one we did was 04/29/21. I saw one done at an external location 11/03/22, but it wouldn't let me open it up to be able to get any information. Allergies As of Date: 04/08/2023 Noted Allergy Reaction MAXIDEX (DEXAMETHASONE) 03/26/2005 5 - Intolerance NSAIDS (NON-STEROIDAL ANTI-INFLAM* 5 5 - Intolerance Comments: not to take due to gastric bipass BONIVA (IBANDRONATE) 12/19/2012 8 - GI Upset Comments: Pain- hx gastric bypass. Intolerant to past biphosphonates. Sister with allergic response to reclast. DOXEPIN 02/16/2008 5 - Intolerance Comments: AM hangover Date Reviewed: 03/25/2023 Reviewed by: Love Martinez, RN - Fully Assessed Reason for Visit: Patient Question [1477] Prescriptions as of 04/08/2023 - polyethylene glycol 3350 17 gram packet Take 1 Packet by mouth once daily. Dissolve dose in 4 - 8 ounces of liquid and take as directed. - senna-docusate (SENNA-S) 8.6-50 mg per tablet Take 1 tablet by mouth twice daily. - LORazepam (ATIVAN) 0.5 mg Take 0.5 mg by mouth three times daily as needed. - PARoxetine (PAXIL) 40 mg tablet Take 1 tablet by mouth once daily. - montelukast (SINGULAIR) 10 mg tablet Take 1 tablet by mouth daily at bedtime. For allergies - IFEREX 150 150 mg iron capsule TAKE 1 TABLET BY MOUTH EVERY DAY WITH MEALS - ergocalciferol 50,000 unit capsule (VITAMIN D2, DRISDOL) Take 1 capsule by mouth one time a week. - buPROPion SR (ZYBAN SR; WELLBUTRIN SR) 150 mg 12 hr tablet Take 2 tablets PO in the AM and 1 tablet PO in the PM - ondansetron orally disintegrating (ZOFRAN ODT) 4 mg disintegrating tablet Take 1 tablet by mouth every 8 hours as needed for nausea/vomiting. - blood sugar diagnostic (BLOOD GLUCOSE TEST) test strip Test blood sugar(s) 1 times daily. Dx: Other DM Code hypoglycemia e16.2 Insulin: No - famotidine (PEPCID) 20 mg tablet Take 1 tablet by mouth twice daily. - ofloxacin (FLOXIN) 0.3 % otic solution Use 5 Drops in both ears twice daily. - potassium chloride ER (K-DUR, KLOR-CON) 20 mEq tablet Take 20 mEq by mouth twice daily with meals. - ketoconazole (NIZORAL) 2 % cream APPLY TO THE AFFECTED AREA(S) at 600am and 1000pm - acetaminophen (TYLENOL 8 HOUR ORAL) Take 1,000 mg by mouth three times daily. - asvfjju-xiaflojid-pkk rae D3 500 mg(1,250mg) -200 unit per tablet TWICE DAILY WITH MEALS - carvedilol (COREG) 12.5 mg tablet TAKE 1 TABLET BY MOUTH TWICE DAILY. must administer with a meal/food. - furosemide (LASIX) 40 mg tablet Take 40 mg by mouth once daily. - VITAMIN B COMPLEX ORAL Take by mouth. - nystatin (NYSTOP) powder Apply 1 application to affected area twice daily. - COMPOUNDED PRESCRIPTION Jobst stocking knee high with zipper 20-30 mmHg Dx:R60.0, S72.002A - Calcium Citrate-Vitamin D3 500 mg calcium -400 unit Chew Take 1 Each by mouth daily with food. - albuterol 90 mcg/Actuation INHALATION Aero Inhale 2 Puffs as instructed four times daily. USE DIRECTED Problem List As Of Date 04/08/2023 Noted Resolved Cervicalgia [M54.2] 01/14/2006 Pain in Joint, Shoulder Region [M25.519] 01/14/2006 01/23/2010 Unspecified Osteoporosis [M81.0] 02/07/2006 SHOULDER REGION DIS NEC [M25.819] DISC DEGENERATION NOS [[id number]] ESOPHAGEAL REFLUX [K21.9] DEPRESSIVE DISORDER NEC [F32.89] Neck Sprain and Strain [S13.9XXA] 07/14/2006 01/23/2010 INCISIONAL HERNIA [K43.2] 12/30/2006 TOBACCO USE DISORDER [F17.200] 01/26/2007 Acute Bronchitis [J20.9] 09/18/2007 01/23/2010 CHRONIC PAIN NEC [G89.29] 12/12/2008 Spondylosis [M47.9] 01/23/2010 Cervical arthritis [M47.812] 05/20/2010 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90] 10/15/2010 Venous insufficiency (chronic) (peripheral) [I8*11/01/2010 Chronic obstructive pulmonary disease (HCC) [J4*05/10/2011 Respiratory infection [J98.8] 02/07/2012 02/07/2012 Arthritis of knee, left [M17.12] 02/07/2012 Arthritis of right knee [M17.11] 02/07/2012 Chronic pain [G89.29] 05/14/2013 Knee pain [M25.569] 05/14/2013 DDD (degenerative disc disease), cervical [M50.*05/14/2013 DDD (degenerative disc disease), lumbar [M51.36]05/14/2013 Cervical spondylosis [M47.812] 05/14/2013 Diffuse myofascial pain syndrome [M79.18] 05/14/2013 Lumbar spondylosis [M47.816] 05/14/2013 JIMMY (obstructive sleep apnea) [G47.33] 11/24/2016 Obesity due to excess calories [E66.09] 11/24/2016 Bipolar 2 disorder, major depressive episo (more content not included)... Normal [facility] TASNEEM RIZZO I ([id number]) 1950 F Date Time Provider Department 04/06/23 BOLA DOBSON [facility] During your visit today, we recorded the following information about you: Tiffanie Mccord 04/06/2023 10:34 AM Signed ----- Message from Nimo Parsons sent at 04/05/2023 3:30 PM EDT ----- Regarding: Orthopedics / Bola Dobson Elbow: Pain SX 03.24.2023 / Post Op Within 90 Day Period Contact: Patient has been identified by name and Date of (Y/N): Y Patient: Tasneem Rizzo Date of : 1950 Previous Provider Seen: Dr Dobson Body Part(s) Identified: Right Elbow Diagnosis/Reason For Visit: R Elbow Reason for the call/escalation: Follow up Right Elbow SX 03.24.2023 / Please reach out If reason for call/escalation is discharge from ED/ER or Hospital, which facility was the patient seen at: Patient at [facility] Was an appointment scheduled (Y/N): y but missed 03.30.2023 Person calling if other than patient: y Jane Return call to if other than patient: y Best contact number: [facility] Care/Jane/ [phone] rings to floor Thank you, Nimo Parsons April 05, 2023 3:31 PM Allergies As of Date: 04/06/2023 Noted Allergy Reaction MAXIDEX (DEXAMETHASONE) 03/26/2005 5 - Intolerance NSAIDS (NON-STEROIDAL ANTI-INFLAM* 5 5 - Intolerance Comments: not to take due to gastric bipass BONIVA (IBANDRONATE) 12/19/2012 8 - GI Upset Comments: Pain- hx gastric bypass. Intolerant to past biphosphonates. Sister with allergic response to reclast. DOXEPIN 02/16/2008 5 - Intolerance Comments: AM hangover Date Reviewed: 03/25/2023 Reviewed by: Love Martinez, LAMONT - Fully Assessed Reason for Visit: Appointment [186] Cmt: P/O Prescriptions as of 04/06/2023 - polyethylene glycol 3350 17 gram packet Take 1 Packet by mouth once daily. Dissolve dose in 4 - 8 ounces of liquid and take as directed. - senna-docusate (SENNA-S) 8.6-50 mg per tablet Take 1 tablet by mouth twice daily. - LORazepam (ATIVAN) 0.5 mg Take 0.5 mg by mouth three times daily as needed. - PARoxetine (PAXIL) 40 mg tablet Take 1 tablet by mouth once daily. - montelukast (SINGULAIR) 10 mg tablet Take 1 tablet by mouth daily at bedtime. For allergies - IFEREX 150 150 mg iron capsule TAKE 1 TABLET BY MOUTH EVERY DAY WITH MEALS - ergocalciferol 50,000 unit capsule (VITAMIN D2, DRISDOL) Take 1 capsule by mouth one time a week. - buPROPion SR (ZYBAN SR; WELLBUTRIN SR) 150 mg 12 hr tablet Take 2 tablets PO in the AM and 1 tablet PO in the PM - ondansetron orally disintegrating (ZOFRAN ODT) 4 mg disintegrating tablet Take 1 tablet by mouth every 8 hours as needed for nausea/vomiting. - blood sugar diagnostic (BLOOD GLUCOSE TEST) test strip Test blood sugar(s) 1 times daily. Dx: Other DM Code hypoglycemia e16.2 Insulin: No - famotidine (PEPCID) 20 mg tablet Take 1 tablet by mouth twice daily. - ofloxacin (FLOXIN) 0.3 % otic solution Use 5 Drops in both ears twice daily. - potassium chloride ER (K-DUR, KLOR-CON) 20 mEq tablet Take 20 mEq by mouth twice daily with meals. - ketoconazole (NIZORAL) 2 % cream APPLY TO THE AFFECTED AREA(S) at 600am and 1000pm - acetaminophen (TYLENOL 8 HOUR ORAL) Take 1,000 mg by mouth three times daily. - fxyymjl-oziuzazit-cty rae D3 500 mg(1,250mg) -200 unit per tablet TWICE DAILY WITH MEALS - carvedilol (COREG) 12.5 mg tablet TAKE 1 TABLET BY MOUTH TWICE DAILY. must administer with a meal/food. - furosemide (LASIX) 40 mg tablet Take 40 mg by mouth once daily. - VITAMIN B COMPLEX ORAL Take by mouth. - nystatin (NYSTOP) powder Apply 1 application to affected area twice daily. - COMPOUNDED PRESCRIPTION Jobst stocking knee high with zipper 20-30 mmHg Dx:R60.0, S72.002A - Calcium Citrate-Vitamin D3 500 mg calcium -400 unit Chew Take 1 Each by mouth daily with food. - albuterol 90 mcg/Actuation INHALATION Aero Inhale 2 Puffs as instructed four times daily. USE DIRECTED Problem List As Of Date 04/06/2023 Noted Resolved Cervicalgia [M54.2] 01/14/2006 Pain in Joint, Shoulder Region [M25.519] 01/14/2006 01/23/2010 Unspecified Osteoporosis [M81.0] 02/07/2006 SHOULDER REGION DIS NEC [M25.819] DISC DEGENERATION NOS [[id number]] ESOPHAGEAL REFLUX [K21.9] DEPRESSIVE DISORDER NEC [F32.89] Neck Sprain and Strain [S13.9XXA] 07/14/2006 01/23/2010 INCISIONAL HERNIA [K43.2] 12/30/2006 TOBACCO USE DISORDER [F17.200] 01/26/2007 Acute Bronchitis [J20.9] 09/18/2007 01/23/2010 CHRONIC PAIN NEC [G89.29] 12/12/2008 Spondylosis [M47.9] 01/23/2010 Cervical arthritis [M47.812] 05/20/2010 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 Normal [facility]20[facility] TASNEEM RIZZO I ([id number]) 1950 F Date Time Provider Department 03/28/23 BOLA DOBSON [facility] During your visit today, we recorded the following information about you: Tiffanie Mccord 03/28/2023 11:26 AM Signed ----- Message from Nona Larsen sent at 03/28/2023 11:02 AM EDT ----- Regarding: Orthopedics/Esterle/ Elbow, or Shoulder?/Post Op? Orthopedics/Esterle/ Elbow, or Shoulder?/Post Op? Patient has been identified by name and Date of (Y/N): Y Patient: Tasneem Rizzo Date of : 1950 Previous Provider Seen: Olya Body Part(s) Identified: Rt Shoulder/Elbow? Diagnosis/Reason For Visit: Post Op Reason for the call/escalation: Mona from [facility] calling to schedule follow up appointment. Mona unsure if it is for elbow or shoulder, notes are conflicting If reason for call/escalation is discharge from ED/ER or Hospital, which facility was the patient seen at: na Was an appointment scheduled (Y/N): n Person calling if other than patient: Mona or nurse from [facility] Return call to if other than patient: Mona or nurse from [facility] Best contact number: [phone] Thank you, Nona Larsen March 28, 2023 11:02 AM Allergies As of Date: 03/28/2023 Noted Allergy Reaction MAXIDEX (DEXAMETHASONE) 03/26/2005 5 - Intolerance NSAIDS (NON-STEROIDAL ANTI-INFLAM* 5 5 - Intolerance Comments: not to take due to gastric bipass BONIVA (IBANDRONATE) 12/19/2012 8 - GI Upset Comments: Pain- hx gastric bypass. Intolerant to past biphosphonates. Sister with allergic response to reclast. DOXEPIN 02/16/2008 5 - Intolerance Comments: AM hangover Date Reviewed: 03/25/2023 Reviewed by: Love Martinez, LAMONT - Fully Assessed Reason for Visit: Orders [681] Cmt: Confirming/clarifying orders Prescriptions as of 03/28/2023 - polyethylene glycol 3350 17 gram packet Take 1 Packet by mouth once daily. Dissolve dose in 4 - 8 ounces of liquid and take as directed. - senna-docusate (SENNA-S) 8.6-50 mg per tablet Take 1 tablet by mouth twice daily. - LORazepam (ATIVAN) 0.5 mg Take 0.5 mg by mouth three times daily as needed. - PARoxetine (PAXIL) 40 mg tablet Take 1 tablet by mouth once daily. - montelukast (SINGULAIR) 10 mg tablet Take 1 tablet by mouth daily at bedtime. For allergies - IFEREX 150 150 mg iron capsule TAKE 1 TABLET BY MOUTH EVERY DAY WITH MEALS - ergocalciferol 50,000 unit capsule (VITAMIN D2, DRISDOL) Take 1 capsule by mouth one time a week. - buPROPion SR (ZYBAN SR; WELLBUTRIN SR) 150 mg 12 hr tablet Take 2 tablets PO in the AM and 1 tablet PO in the PM - ondansetron orally disintegrating (ZOFRAN ODT) 4 mg disintegrating tablet Take 1 tablet by mouth every 8 hours as needed for nausea/vomiting. - blood sugar diagnostic (BLOOD GLUCOSE TEST) test strip Test blood sugar(s) 1 times daily. Dx: Other DM Code hypoglycemia e16.2 Insulin: No - famotidine (PEPCID) 20 mg tablet Take 1 tablet by mouth twice daily. - ofloxacin (FLOXIN) 0.3 % otic solution Use 5 Drops in both ears twice daily. - potassium chloride ER (K-DUR, KLOR-CON) 20 mEq tablet Take 20 mEq by mouth twice daily with meals. - ketoconazole (NIZORAL) 2 % cream APPLY TO THE AFFECTED AREA(S) at 600am and 1000pm - acetaminophen (TYLENOL 8 HOUR ORAL) Take 1,000 mg by mouth three times daily. - nzpqvnp-rtethflot-kdy rae D3 500 mg(1,250mg) -200 unit per tablet TWICE DAILY WITH MEALS - carvedilol (COREG) 12.5 mg tablet TAKE 1 TABLET BY MOUTH TWICE DAILY. must administer with a meal/food. - furosemide (LASIX) 40 mg tablet Take 40 mg by mouth once daily. - VITAMIN B COMPLEX ORAL Take by mouth. - nystatin (NYSTOP) powder Apply 1 application to affected area twice daily. - COMPOUNDED PRESCRIPTION Jobst stocking knee high with zipper 20-30 mmHg Dx:R60.0, S72.002A - Calcium Citrate-Vitamin D3 500 mg calcium -400 unit Chew Take 1 Each by mouth daily with food. - albuterol 90 mcg/Actuation INHALATION Aero Inhale 2 Puffs as instructed four times daily. USE DIRECTED Problem List As Of Date 03/28/2023 Noted Resolved Cervicalgia [M54.2] 01/14/2006 Pain in Joint, Shoulder Region [M25.519] 01/14/2006 01/23/2010 Unspecified Osteoporosis [M81.0] 02/07/2006 SHOULDER REGION DIS NEC [M25.819] DISC DEGENERATION NOS [[id number]] ESOPHAGEAL REFLUX [K21.9] DEPRESSIVE DISORDER NEC [F32.89] Neck Sprain and Strain [S13.9XXA] 07/14/2006 01/23/2010 INCISIONAL HERNIA [K43.2] 12/30/2006 TOBACCO USE DISORDER [F17.200] 01/26/2007 Acute Bronchitis [J20.9] 09/18/2007 01/23/2010 CHRONIC PAIN NEC [G89.29] 12/12/2008 Spondylosis [M47.9] 01/23/2010 Cervical arthritis [M47.812] 05/20/2010 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 (more content not included)... Normal [facility] XR CHEST 2V FRONTAL/LATon [facility] XR Chest PA and Lateralon IMPRESSION: No acute radiographic abnormality. Electrical Systems Engineer: LATRICIA Transcribe Date/Time: Apr 28 2022 12:05P Dictated by : ANNETTE SWIFT MD This examination was interpreted and the report reviewed and electronically signed by: ANNETTE SWIFT MD on Apr 28 2022 1:30PM [facility] DIVISION OF RADIOLOGY * * *Final Report* * * DATE OF EXAM: Apr 28 2022 12:00PM WOX 5291 - XR CHEST 2V FRONTAL/LAT / PROCEDURE REASON: multiple diagnoses * * * * Physician Interpretation * * * * EXAMINATION: CHEST RADIOGRAPH (2 VIEW FRONTAL & LATERAL) CLINICAL HISTORY: Acute cough Sore throat MQ: XC2_6 EXAM DATE/TIME: 04/28/2022 12:00 PM COMPARISON: Chest x-ray dated July 22, 2021 RESULT: Lines, tubes, and devices: None. Lungs and pleura: No consolidation. No lung mass. No pleural effusion. No pneumothorax. Cardiomediastinal silhouette: Normal cardiomediastinal silhouette. Bones and soft tissues: Degenerative changes are present within the thoracic spine. Remote mid left posterior lateral rib fractures. Osseous demineralization. Hernia mesh seen in the upper abdomen. DIVISION [facility]IOLOGY [facility] * * *Final Report* * * DATE OF EXAM: Apr 28 2022 12:00PM WOX 5291 - XR CHEST 2V FRONTAL/LAT / PROCEDURE REASON: multiple diagnoses * * * * Physician Interpretation * * * * EXAMINATION: CHEST RADIOGRAPH (2 VIEW FRONTAL & LATERAL) CLINICAL HISTORY: Acute cough Sore throat MQ: XC2_6 EXAM DATE/TIME: 04/28/2022 12:00 PM COMPARISON: Chest x-ray dated July 22, 2021 RESULT: Lines, tubes, and devices: None. Lungs and pleura: No consolidation. No lung mass. No pleural effusion. No pneumothorax. Cardiomediastinal silhouette: Normal cardiomediastinal silhouette. Bones and soft tissues: Degenerative changes are present within the thoracic spine. Remote mid left posterior lateral rib fractures. Osseous demineralization. Hernia mesh seen in the upper abdomen. IMPRESSION IMPRESSION: No acute radiographic abnormality. Electrical Systems Engineer: [facility] Transcribe Date/Time: Apr 28 2022 12:05P Dictated by : ANNETTE SWIFT MD This examination was interpreted and the report reviewed and electronically signed by: ANNETTE SWIFT MD on Apr 28 2022 1:30PM [facility] Radiology Study observation (narrative) [facility] XR Chest PA and LateralOrder ed By: Ccf Provider on 04-28-2022 [facility] XR Cervical spine AP and Lat eral and obliqueon 03-10-2022 IMPRESSION: Cervical spine degenerative changes with multilevel disc space narrowing and bilateral neural foraminal narrowing. Electrical Systems Engineer: [facility] Transcribe Date/Time: Mar 10 2022 11:02A Dictated by : RAYRAY KIMBLE MD This examination was interpreted and the report reviewed and electronically signed by: RAYRAY KIMBLE MD on Mar 10 2022 11:06AM [facility] DIVISION OF RADIOLOGY * * *Final Report* * * DATE OF EXAM: Mar 10 2022 10:40AM WOX [id number] - XR CERVICAL 4V AP/LAT/OBL / PROCEDURE REASON: multiple diagnoses * * * * Physician Interpretation * * * * EXAM TITLE: XR CERVICAL 4V AP/LAT/OBL EXAM DATE/TIME: 03/10/2022 10:40 AM COMPARISON: None. CLINICAL INDICATION/HISTORY: Neck pain TECHNIQUE: AP, lateral, swimmer's and oblique views of the cervical spine are presented. FINDINGS: Limitations: Only 5 cervical vertebrae are seen on lateral view due to superimposed soft tissue from the shoulders. No acute fracture seen. There is minimal C4 on C5 retrolisthesis. Disc space narrowing is demonstrated, involving C3-C7 levels. There is moderate osteophyte formation, with facet arthrosis. Multilevel bilateral neural foraminal narrowing is noted. The bones are osteopenic. The prevertebral soft tissues are normal. DIVISION OF RADIOLOGY Provider, [facility] - 03/10/2022 * * *Final Report* * * DATE OF EXAM: Mar 10 2022 10:40AM WOX 5311 - XR CERVICAL 4V AP/LAT/OBL / PROCEDURE REASON: multiple diagnoses * * * * Physician Interpretation * * * * EXAM TITLE: XR CERVICAL 4V AP/LAT/OBL EXAM DATE/TIME: 03/10/2022 10:40 AM COMPARISON: None. CLINICAL INDICATION/HISTORY: Neck pain TECHNIQUE: AP, lateral, swimmer's and oblique views of the cervical spine are presented. FINDINGS: Limitations: Only 5 cervical vertebrae are seen on lateral view due to superimposed soft tissue from the shoulders. No acute fracture seen. There is minimal C4 on C5 retrolisthesis. Disc space narrowing is demonstrated, involving C3-C7 levels. There is moderate osteophyte formation, with facet arthrosis. Multilevel bilateral neural foraminal narrowing is noted. The bones are osteopenic. The prevertebral soft tissues are normal. IMPRESSION IMPRESSION: Cervical spine degenerative changes with multilevel disc space narrowing and bilateral neural foraminal narrowing. Electrical Systems Engineer: LATRICIA Transcribe Date/Time: Mar 10 2022 11:02A Dictated by : RAYRAY KIMBLE MD This examination was interpreted and the report reviewed and electronically signed by: RAYRAY KIMBLE MD on Mar 10 2022 11:06AM EST [facility] Radiology Study observation (narrative) [facility] XR Cervical spine AP and Lat eral and obliqueOrdered By: Ccf Provider on 03-10-2022 [facility] XR Ribs - left Views and Tonie st PAon 08-26-2021 IMPRESSION: No acute bony finding. Right fractures as detailed in report Electrical Systems Engineer: [employer] Transcribe Date/Time: Aug 26 2021 2:02P Dictated by : ABRAHAN VALENCIA MD This examination was interpreted and the report reviewed and electronically signed by: ABRAHAN VALENCIA MD on Aug 26 2021 2:07PM EST DIVISION OF RADIOLOGY * * *Final Report* * * DATE OF EXAM: Aug 26 2021 1:30PM WOX 5243 - XR RIB/CHST 3V AP RIB/OBL/CHST L / PROCEDURE REASON: multiple diagnoses * * * * Physician Interpretation * * * * Left RIBS HISTORY: 71 years old Clinical information: Fall, initial encounter Rib pain pt experiencing left sided anterior rib pain that wraps around to left posterior ribs from falling at home this past tuesday. TECHNIQUE: Images: XR RIB/CHST 3V AP RIB/OBL/CHST L Comparison: 04/29/2021 thoracic spine; 01/14/2021 Lumbar spine. RESULT: Findings: Multiple remote posterior LEFT rib fractures likely involving the third through seventh ribs. No acute fracture. No pneumothorax. There are compressive deformities of lower thoracic and probably lumbar vertebral bodies. Within the limits of an AP radiograph appear unchanged from the thoracic spine study of 04/29/2021 and 01/14/2021 lumbar spine study. DIVISION OF RADIOLOGY Provider, [facility] - 08/26/2021 * * *Final Report* * * DATE OF EXAM: Aug 26 2021 1:30PM WOX 5243 - XR RIB/CHST 3V AP RIB/OBL/CHST L / PROCEDURE REASON: multiple diagnoses * * * * Physician Interpretation * * * * Left RIBS HISTORY: 71 years old Clinical information: Fall, initial encounter Rib pain pt experiencing left sided anterior rib pain that wraps around to left posterior ribs from falling at home this past tuesday. TECHNIQUE: Images: XR RIB/CHST 3V AP RIB/OBL/CHST L Comparison: 04/29/2021 thoracic spine; 01/14/2021 Lumbar spine. RESULT: Findings: Multiple remote posterior LEFT rib fractures likely involving the third through seventh ribs. No acute fracture. No pneumothorax. There are compressive deformities of lower thoracic and probably lumbar vertebral bodies. Within the limits of an AP radiograph appear unchanged from the thoracic spine study of 04/29/2021 and 01/14/2021 lumbar spine study. IMPRESSION IMPRESSION: No acute bony finding. Right fractures as detailed in report Electrical Systems Engineer: LATR[employer] Transcribe Date/Time: Aug 26 2021 2:02P Dictated by : ABRAHAN VALENCIA MD This examination was interpreted and the report reviewed and electronically signed by: ABRAHAN VALENCIA MD on Aug 26 2021 2:07PM EST [facility] Radiology Study observation [facility]narrative[facility] Ribs - left Views and Tonie st PAOrdered By: Ccf Provider on 08-26-2021 [facility] XR Chest PA and Lateralon IMPRESSION: Stable exam without acute findings. Electrical Systems Engineer: LATRICIA Transcribe Date/Time: Jul 22 2021 11:51A Dictated by : RAYRAY KIMBLE MD This examination was interpreted and the report reviewed and electronically signed by: RAYRAY KIMBLE MD on Jul 22 2021 11:53AM EST DIVISION OF RADIOLOGY * * *Final Report* * * DATE OF EXAM: Jul 22 2021 11:50AM WOX 5291 - XR CHEST 2V FRONTAL/LAT / PROCEDURE REASON: Suspected COVID-19 virus infection * * * * Physician Interpretation * * * * EXAMINATION: CHEST RADIOGRAPH (2 VIEW FRONTAL & LATERAL) CLINICAL HISTORY: Suspected COVID-19 virus infection MQ: XC2_6 EXAM DATE/TIME: 07/22/2021 11:50 AM COMPARISON: Chest x-ray on 04/29/2021. RESULT: Lines, tubes, and devices: None. Lungs and pleura: No consolidation. No lung mass. No pleural effusion. No pneumothorax. Left-sided large pericardial fat pad is noted. Cardiomediastinal silhouette: Stable cardiomediastinal silhouette. Calcified lymph nodes seen in the mediastinum. Bones and soft tissues: There are degenerative changes in the spine. DIVISION OF RADIOLOGY Provider, [facility] - 07/22/2021 * * *Final Report* * * DATE OF EXAM: Jul 22 2021 11:50AM WOX 5291 - XR CHEST 2V FRONTAL/LAT / PROCEDURE REASON: Suspected COVID-19 virus infection * * * * Physician Interpretation * * * * EXAMINATION: CHEST RADIOGRAPH (2 VIEW FRONTAL & LATERAL) CLINICAL HISTORY: Suspected COVID-19 virus infection MQ: XC2_6 EXAM DATE/TIME: 07/22/2021 11:50 AM COMPARISON: Chest x-ray on 04/29/2021. RESULT: Lines, tubes, and devices: None. Lungs and pleura: No consolidation. No lung mass. No pleural effusion. No pneumothorax. Left-sided large pericardial fat pad is noted. Cardiomediastinal silhouette: Stable cardiomediastinal silhouette. Calcified lymph nodes seen in the mediastinum. Bones and soft tissues: There are degenerative changes in the spine. IMPRESSION IMPRESSION: Stable exam without acute findings. Electrical Systems Engineer: LATRICIA Transcribe Date/Time: Jul 22 2021 11:51A Dictated by : RAYRAY KIMBLE MD This examination was interpreted and the report reviewed and electronically signed by: RAYRAY KIMBLE MD on Jul 22 2021 11:53AM EST [facility] Radiology Study observation (narrative) [facility] XR Chest PA and LateralOrder ed By: Ccf Provider on 07-22-2021 [facility] XR Knee - left 4 Viewson IMPRESSION: Refer to the result. Electrical Systems Engineer: LATRICIA Transcribe Date/Time: May 07 2021 10:45A Dictated by : ROSALBA RODAS MD This examination was interpreted and the report reviewed and electronically signed by: ROSALBA RODAS MD on May 07 2021 11:08AM [facility] DIVISION OF RADIOLOGY * * *Final Report* * * DATE OF EXAM: May 07 2021 10:33AM WOX 5202 - XR KNEE 4V AP/PA BOTH+LAT/JESSI LT / PROCEDURE REASON: Acute pain of left knee * * * * Physician Interpretation * * * * EXAMINATION: XR KNEE 4V AP/PA BOTH+LAT/JESSI LT CLINICAL HISTORY: Posterior and lateral left knee pain following a fall x 1 week ago. Acute pain of left knee Technique: XR KNEE 4V AP/PA BOTH+LAT/JESSI LT -- LEFT knee with 4 views on 4 images Comparison: 03/27/2015 RESULT: No acute fracture or dislocation of the LEFT knee is identified. The bones are diffusely osteopenic. There is narrowing of the medial compartment and the patellofemoral joint of the LEFT knee with tricompartmental degenerative spurring. No joint effusion is identified. Deformity of the lateral tibial plateau of the RIGHT knee consistent with previous fracture, present on prior exam of 2014. Additional deformity of the proximal RIGHT fibula also is consistent with remote traumatic injury. Degenerative changes of both the medial lateral compartments of the RIGHT knee. DIVISION OF RADIOLOGY Provider, [facility] - 05/07/2021 * * *Final Report* * * DATE OF EXAM: May 07 2021 10:33AM WOX 5202 - XR KNEE 4V AP/PA BOTH+LAT/JESSI LT / PROCEDURE REASON: Acute pain of left knee * * * * Physician Interpretation * * * * EXAMINATION: XR KNEE 4V AP/PA BOTH+LAT/JESSI LT CLINICAL HISTORY: Posterior and lateral left knee pain following a fall x 1 week ago. Acute pain of left knee Technique: XR KNEE 4V AP/PA BOTH+LAT/JESSI LT -- LEFT knee with 4 views on 4 images Comparison: 03/27/2015 RESULT: No acute fracture or dislocation of the LEFT knee is identified. The bones are diffusely osteopenic. There is narrowing of the medial compartment and the patellofemoral joint of the LEFT knee with tricompartmental degenerative spurring. No joint effusion is identified. Deformity of the lateral tibial plateau of the RIGHT knee consistent with previous fracture, present on prior exam of 2014. Additional deformity of the proximal RIGHT fibula also is consistent with remote traumatic injury. Degenerative changes of both the medial lateral compartments of the RIGHT knee. IMPRESSION IMPRESSION: Refer to the result. Electrical Systems Engineer: LATRICIA Transcribe Date/Time: May 07 2021 10:45A Dictated by : ROSALBA RODAS MD This examination was interpreted and the report reviewed and electronically signed by: ROSALBA RODAS MD on May 07 2021 11:08AM EST [facility] Radiology Study observation (narrative) [facility] XR Knee - left 4 ViewsOrdere d By: Ccf Provider on 05-07-2021 [facility] No Panel Informationon 04-29 IMPRESSION: 1. No rib fractures are seen 2. There is loss of height in several midthoracic vertebral bodies this is probably due to remote fractures 3. Degenerative changes Electrical Systems Engineer: LATRICIA Transcribe Date/Time: Apr 29 2021 2:39P Dictated by : MAURA MARAVILLA DO This examination was interpreted and the report reviewed and electronically signed by: MAURA MARAVILLA DO on Apr 29 2021 2:43PM EST DIVISION OF RADIOLOGY Radiology Study observation (narrative) [facility] No Panel InformationOrdered By: Ccf Provider on 04-29-2021 [facility] XR Ribs - bilateral 4 Views and Chest PAon 04-29-2021 * * *Final Report* * * DATE OF EXAM: Apr 29 2021 10:44AM WOX 5242 - XR RIBS 4V JADON+UPPER/LOWER CHEST / PROCEDURE REASON: Acute bilateral thoracic back pain * * * * Physician Interpretation * * * * 2 studies discussed below: Bilateral ribs and chest / thoracic spine ( EXAM DATE/TIME: 04/29/2021 10:44 AM HISTORY: 71 years old Clinical information: Acute bilateral thoracic back pain Lower thoracic spine pain that radiates laterally to both sides of the ribs x 2 weeks without injury TECHNIQUE: Images: XR RIBS 4V JADON+UPPER/LOWER CHEST, XR THORACIC 3V AP/LAT/SWIMMERS Comparison: None. RESULT: Findings: Bilateral ribs: Heart and lungs are unremarkable. No fractures or dislocations are seen. Marked narrowing of both glenohumeral joints Thoracic spine: \ Moderate narrowing of the disc spaces throughout the thoracic spine. There is moderate loss in height in several midthoracic vertebral bodies age of these changes uncertain No definite acute fractures or dislocations are seen. DIVISION OF RADIOLOGY Provider, [facility] - 04/29/2021 * * *Final Report* * * DATE OF EXAM: Apr 29 2021 10:44AM WOX [id number] - XR RIBS 4V JADON+UPPER/LOWER CHEST / PROCEDURE REASON: Acute bilateral thoracic back pain * * * * Physician Interpretation * * * * 2 studies discussed below: Bilateral ribs and chest / thoracic spine ( EXAM DATE/TIME: 04/29/2021 10:44 AM HISTORY: 71 years old Clinical information: Acute bilateral thoracic back pain Lower thoracic spine pain that radiates laterally to both sides of the ribs x 2 weeks without injury TECHNIQUE: Images: XR RIBS 4V JADON+UPPER/LOWER CHEST, XR THORACIC 3V AP/LAT/SWIMMERS Comparison: None. RESULT: Findings: Bilateral ribs: Heart and lungs are unremarkable. No fractures or dislocations are seen. Marked narrowing of both glenohumeral joints Thoracic spine: \ Moderate narrowing of the disc spaces throughout the thoracic spine. There is moderate loss in height in several midthoracic vertebral bodies age of these changes uncertain No definite acute fractures or dislocations are seen. IMPRESSION IMPRESSION: 1. No rib fractures are seen 2. There is loss of height in several midthoracic vertebral bodies this is probably due to remote fractures 3. Degenerative changes Electrical Systems Engineer: LATRICIA Transcribe Date/Time: Apr 29 2021 2:39P Dictated by : MAURA MARAVILLA DO This examination was interpreted and the report reviewed and electronically signed by: MAURA MARAVILLA DO on Apr 29 2021 2:43PM [facility] XR Thoracic spine AP and Lat eral and Swimmerson 04-29-2021 * * *Final Report* * * DATE OF EXAM: Apr 29 2021 10:44AM WOX [id number] - XR THORACIC 3V AP/LAT/SWIMMERS / PROCEDURE REASON: Acute bilateral thoracic back pain * * * * Physician Interpretation * * * * 2 studies discussed below: Bilateral ribs and chest / thoracic spine ( EXAM DATE/TIME: 04/29/2021 10:44 AM HISTORY: 71 years old Clinical information: Acute bilateral thoracic back pain Lower thoracic spine pain that radiates laterally to both sides of the ribs x 2 weeks without injury TECHNIQUE: Images: XR RIBS 4V JADON+UPPER/LOWER CHEST, XR THORACIC 3V AP/LAT/SWIMMERS Comparison: None. RESULT: Findings: Bilateral ribs: Heart and lungs are unremarkable. No fractures or dislocations are seen. Marked narrowing of both glenohumeral joints Thoracic spine: \ Moderate narrowing of the disc spaces throughout the thoracic spine. There is moderate loss in height in several midthoracic vertebral bodies age of these changes uncertain No definite acute fractures or dislocations are seen. DIVISION OF RADIOLOGY Provider, [facility] - 04/29/2021 * * *Final Report* * * DATE OF EXAM: Apr 29 2021 10:44AM WOX [id number] - XR THORACIC 3V AP/LAT/SWIMMERS / PROCEDURE REASON: Acute bilateral thoracic back pain * * * * Physician Interpretation * * * * 2 studies discussed below: Bilateral ribs and chest / thoracic spine ( EXAM DATE/TIME: 04/29/2021 10:44 AM HISTORY: 71 years old Clinical information: Acute bilateral thoracic back pain Lower thoracic spine pain that radiates laterally to both sides of the ribs x 2 weeks without injury TECHNIQUE: Images: XR RIBS 4V JADON+UPPER/LOWER CHEST, XR THORACIC 3V AP/LAT/SWIMMERS Comparison: None. RESULT: Findings: Bilateral ribs: Heart and lungs are unremarkable. No fractures or dislocations are seen. Marked narrowing of both glenohumeral joints Thoracic spine: \ Moderate narrowing of the disc spaces throughout the thoracic spine. There is moderate loss in height in several midthoracic vertebral bodies age of these changes uncertain No definite acute fractures or dislocations are seen. IMPRESSION IMPRESSION: 1. No rib fractures are seen 2. There is loss of height in several midthoracic vertebral bodies this is probably due to remote fractures 3. Degenerative changes Electrical Systems Engineer: LATRICIA Transcribe Date/Time: Apr 29 2021 2:39P Dictated by : MAURA MARAVILLA DO This examination was interpreted and the report reviewed and electronically signed by: MAURA MARAVILLA DO on Apr 29 2021 2:43PM [facility] XR Lumbar spine 3 Viewson IMPRESSION: Osteoporosis with multiple compression fractures. Electrical Systems Engineer: [facility] Transcribe Date/Time: Jan 14 2021 12:28P Dictated by : KEYLA POSADA DO This examination was interpreted and the report reviewed and electronically signed by: KEYLA POSADA DO on Jan 14 2021 12:37PM [facility] DIVISION OF RADIOLOGY * * *Final Report* * * DATE OF EXAM: Jan 14 2021 12:21PM WOX [id number] - XR LUMBAR 3V AP/LAT/L5-S1 / PROCEDURE REASON: multiple diagnoses * * * * Physician Interpretation * * * * EXAMINATION: XR LUMBAR 3V AP/LAT/L5-S1 PATIENT/TECHNOLOGIST PROVIDED HISTORY: Right sided lower back pain x 1 week without injury CLINICAL INFORMATION: 70 years old Female with Acute right-sided low back pain without sciatica. Osteoporosis, unspecified. TECHNIQUE: XR LUMBAR 3V AP/LAT/L5-S1 Laterality: NOT APPLICABLE Number of different views (projections): 3 COMPARISON: Lumbar spine radiographs 03/29/2016 RESULT: Lumbar spine: Counting reference: Lumbosacral junction. For the purposes of this report, the most caudal normal disc space in the lumbar region will be labeled as L5-S1. Post-op assessment: N/A Alignment: Alignment is satisfactory. Vertebral bodies: Marked osteopenia/osteoporos is which limits sensitivity for detecting subtle bony abnormalities. Moderate T9, L1, L3 and L4 and mild T11, T12, L2 and L5 compression deformities. Spine articulations: Mild-moderate disc space narrowing L5-S1. Mild multilevel facet degenerative change. Other: Partially visualized ORIF bilateral proximal femurs. Ventral herniorrhaphy mesh tacks in the abdomen and pelvis. DIVISION OF RADIOLOGY [facility] * * *Final Report* * * DATE OF EXAM: Jan 14 2021 12:21PM WOX 5228 - XR LUMBAR 3V AP/LAT/L5-S1 / PROCEDURE REASON: multiple diagnoses * * * * Physician Interpretation * * * * EXAMINATION: XR LUMBAR 3V AP/LAT/L5-S1 PATIENT/TECHNOLOGIST PROVIDED HISTORY: Right sided lower back pain x 1 week without injury CLINICAL INFORMATION: 70 years old Female with Acute right-sided low back pain without sciatica. Osteoporosis, unspecified. TECHNIQUE: XR LUMBAR 3V AP/LAT/L5-S1 Laterality: NOT APPLICABLE Number of different views (projections): 3 COMPARISON: Lumbar spine radiographs 03/29/2016 RESULT: Lumbar spine: Counting reference: Lumbosacral junction. For the purposes of this report, the most caudal normal disc space in the lumbar region will be labeled as L5-S1. Post-op assessment: N/A Alignment: Alignment is satisfactory. Vertebral bodies: Marked osteopenia/osteoporos is which limits sensitivity for detecting subtle bony abnormalities. Moderate T9, L1, L3 and L4 and mild T11, T12, L2 and L5 compression deformities. Spine articulations: Mild-moderate disc space narrowing L5-S1. Mild multilevel facet degenerative change. Other: Partially visualized ORIF bilateral proximal femurs. Ventral herniorrhaphy mesh tacks in the abdomen and pelvis. IMPRESSION IMPRESSION: Osteoporosis with multiple compression fractures. Electrical Systems Engineer: [employer] Transcribe Date/Time: Jan 14 2021 12:28P Dictated by : KEYLA POSADA DO This examination was interpreted and the report reviewed and electronically signed by: KEYLA POSADA DO on Jan 14 2021 12:37PM [facility] Radiology Study observation (narrative) [facility] Lum[facility] 3 ViewsOrder ed By: Ccf Provider on 01-14-2021 [facility] No Panel Information [facility] Vital Signs Date Time Vital Sign Value Performing Clinician Gogo voss 03-21-2024 15:09-0400 Body mass index (BMI) [Ratio] 35.04 kg/m2 Kei Pineda DO Work Phone: [facility] 03-21-2024 15:09-0400 Body temperature 97 [degF] Kei Pineda DO Work Phone: [facility] 03-21-2024 15:090400 Body weight 78.7 kg Kei Pineda DO Work Phone: [facility] 03-21-2024 15:09-0400 Diastolic blood pressure 60 mm[Hg] Kei Pineda DO Work Phone: [facility] 03-21-2024 15:09-0400 Heart rate 88 /min Kei Pineda DO Work Phone: [facility] 03-21-2024 15:09-0400 Respiratory rate 24 /min Kei Pineda DO Work Phone: [facility] 03-21-2024 15:09-0400 Systolic blood pressure 116 mm[Hg] Kei Pineda DO Work Phone: [facility] 03-21-2024 11:20-0400 Body height 149.9 cm Bola Dobson MD Work Phone: [facility] 03-21-2024 11:20-0400 Body mass index (BMI) [Ratio] 35.75 kg/m2 Bola Dobson MD Work Phone: [facility] 03-21-2024 11:20-0400 Body temperature 98.2 [degF] Bola Dobson MD Work Phone: [facility] 03-21-2024 11:20-0400 Body weight 80.29 kg Bola Dobson MD Work Phone: [facility] 12-22-2023 09:08-0400 Body mass index (BMI) [Ratio] 35.19 kg/m2 Lizzie Meier DIRECTOR OF BUSINESS DEVELOPMENT.BULKING MACHINE OPERATOR Work Phone: [facility] 12-22-2023 09:08-0400 Body weight 81.74 kg Lizzie Meier DIRECTOR OF BUSINESS DEVELOPMENT.BULKING MACHINE OPERATOR Work Phone: [facility] 12-22-2023 09:08-0400 Diastolic blood pressure 80 mm[Hg] Lizzie Meire DIRECTOR OF BUSINESS DEVELOPMENT.BULKING MACHINE OPERATOR Work Phone: [facility] 12-22-2023 09:08-0400 Heart rate 64 /min Lizzie Meier DIRECTOR OF BUSINESS DEVELOPMENT.BULKING MACHINE OPERATOR Work Phone: [facility] 12-22-2023 09:08-0400 Respiratory rate 14 /min Lizzie Meier DIRECTOR OF BUSINESS DEVELOPMENT.BULKING MACHINE OPERATOR Work Phone: [facility] 12-22-2023 09:08-0400 Systolic blood pressure 120 mm[Hg] Lizzie Meier DIRECTOR OF BUSINESS DEVELOPMENT.BULKING MACHINE OPERATOR Work Phone: [facility] 12-01-2023 09:43-0400 Body mass index (BMI) [Ratio] 34.26 kg/m2 Lizzie Meier DIRECTOR OF BUSINESS DEVELOPMENT.BULKING MACHINE OPERATOR Work Phone: [facility] 12-01-2023 09:43-0400 Body weight 79.56 kg Lizzie Meier DIRECTOR OF BUSINESS DEVELOPMENT.BULKING MACHINE OPERATOR Work Phone: [facility] 12-01-2023 09:43-0400 Diastolic blood pressure 60 mm[Hg] Lizzie Meier DIRECTOR OF BUSINESS DEVELOPMENT.BULKING MACHINE OPERATOR Work Phone: [facility] 12-01-2023 09:43-0400 Heart rate 96 /min Lizzie Meier DIRECTOR OF BUSINESS DEVELOPMENT.BULKING MACHINE OPERATOR Work Phone: [facility] 12-01-2023 09:43-0400 Respiratory rate 14 /min Lizzie Meier DIRECTOR OF BUSINESS DEVELOPMENT.BULKING MACHINE OPERATOR Work Phone: [facility] 12-01-2023 09:43-0400 SaO2% (BldA) [Mass fraction] 96 % Lizzie Meier DIRECTOR OF BUSINESS DEVELOPMENT.BULKING MACHINE OPERATOR Work Phone: [facility] 12-01-2023 09:43-0400 Systolic blood pressure 120 mm[Hg] Lizzie Meier DIRECTOR OF BUSINESS DEVELOPMENT.BULKING MACHINE OPERATOR Work Phone: [facility] 11-15-2023 13:47-0400 Body mass index (BMI) [Ratio] 32.46 kg/m2 Gerardo Chaneyman DIRECTOR OF BUSINESS DEVELOPMENT.BULKING MACHINE OPERATOR Work Phone: [facility] 11-15-2023 13:47-0400 Body weight 75.39 kg Gerardo Milligan DIRECTOR OF BUSINESS DEVELOPMENT.BULKING MACHINE OPERATOR Work Phone: [facility] 11-15-2023 13:47-0400 Diastolic blood pressure 82 mm[Hg] Gerardo Chaneyman DIRECTOR OF BUSINESS DEVELOPMENT.BULKING MACHINE OPERATOR Work Phone: [facility] 11-15-2023 13:47-0400 Heart rate 83 /min Gerardo Chaneyman DIRECTOR OF BUSINESS DEVELOPMENT.BULKING MACHINE OPERATOR Work Phone: [facility] 11-15-2023 13:47-0400 Respiratory rate 18 /min Gerrado Chaneyman DIRECTOR OF BUSINESS DEVELOPMENT.BULKING MACHINE OPERATOR Work Phone: [facility] 11-15-2023 13:47-0400 SaO2% (BldA) [Mass fraction] 100 % Gerardo Milligan DIRECTOR OF BUSINESS DEVELOPMENT.BULKING MACHINE OPERATOR Work Phone: [facility] 11-15-2023 13:47-0400 Systolic blood pressure 140 mm[Hg] Gerardo Chaneyman DIRECTOR OF BUSINESS DEVELOPMENT.BULKING MACHINE OPERATOR Work Phone: [facility] 10-26-2023 14:56-0400 Body temperature 98.49 [degF] Nancy Garibay DIRECTOR OF BUSINESS DEVELOPMENT.BULKING MACHINE OPERATOR Work Phone: [facility] 10-26-2023 14:56-0400 Body weight 75.6 kg Nancy Garibay DIRECTOR OF BUSINESS DEVELOPMENT.BULKING MACHINE OPERATOR Work Phone: [facility] 10-26-2023 14:56-0400 Diastolic blood pressure 72 mm[Hg] Nancy Garibay DIRECTOR OF BUSINESS DEVELOPMENT.BULKING MACHINE OPERATOR Work Phone: [facility] 10-26-2023 14:56-0400 Heart rate 112 /min Nancy Garibay DIRECTOR OF BUSINESS DEVELOPMENT.BULKING MACHINE OPERATOR Work Phone: [facility] 10-26-2023 14:56-0400 Respiratory rate 18 /min Nancy Garibay APRN.BULKING MACHINE OPERATOR Work Phone: [facility] 10-26-2023 14:56-0400 SaO2% (BldA) [Mass fraction] 96 % Nancy Garibay APRN.BULKING MACHINE OPERATOR Work Phone: [facility] 10-26-2023 14:56-0400 Systolic blood pressure 124 mm[Hg] Nancy Garibay APRN.BULKING MACHINE OPERATOR Work Phone: [facility] 06-20-2023 10:08-0500 Body height 152.4 cm Bola Dobson MD Work Phone: [facility] 06-20-2023 10:08-0500 Body weight 83.01 kg Bola Dobson MD Work Phone: [facility] 06-20-2023 10:08-0500 Respiratory rate 20 /min Bola Dobson MD Work Phone: [facility] 05-30-2023 09:32-0500 Body weight 83.01 kg Jose Ta DIRECTOR OF BUSINESS DEVELOPMENT.BULKING MACHINE OPERATOR Work Phone: [facility] 05-30-2023 09:32-0500 Diastolic blood pressure 74 mm[Hg] Jose Ta DIRECTOR OF BUSINESS DEVELOPMENT.BULKING MACHINE OPERATOR Work Phone: [facility] 05-30-2023 09:32-0500 Heart rate 101 /min Jose Ta DIRECTOR OF BUSINESS DEVELOPMENT.BULKING MACHINE OPERATOR Work Phone: [facility] 05-30-2023 09:32-0500 Respiratory rate 16 /min Jose Ta DIRECTOR OF BUSINESS DEVELOPMENT.BULKING MACHINE OPERATOR Work Phone: [facility] 05-30-2023 09:32-0500 Systolic blood pressure 136 mm[Hg] Jose Ta DIRECTOR OF BUSINESS DEVELOPMENT.BULKING MACHINE OPERATOR Work Phone: [facility] 04-15-2023 09:30-0400 Body height 152.4 cm Bola Dobson MD Work Phone: [facility] 04-15-2023 09:30-0400 Body weight 79.38 kg Bola Dobson MD Work Phone: [facility] 04-15-2023 09:30-0400 Respiratory rate 20 /min Bola Dobson MD Work Phone: [facility] 02-17-2023 12:45-0400 Body weight 87.09 kg Lizzie Meier DIRECTOR OF BUSINESS DEVELOPMENT.BULKING MACHINE OPERATOR Work Phone: [facility] 02-17-2023 12:45-0400 Diastolic blood pressure 62 mm[Hg] Lizzie Meier DIRECTOR OF BUSINESS DEVELOPMENT.BULKING MACHINE OPERATOR Work Phone: [facility] 02-17-2023 12:45-0400 Heart rate 72 /min Lizzie Meier DIRECTOR OF BUSINESS DEVELOPMENT.BULKING MACHINE OPERATOR Work Phone: [facility] 02-17-2023 12:45-0400 Respiratory rate 16 /min Lizzie Meier DIRECTOR OF BUSINESS DEVELOPMENT.BULKING MACHINE OPERATOR Work Phone: [facility] 02-17-2023 12:45-0400 Systolic blood pressure 100 mm[Hg] Lizzie Meier DIRECTOR OF BUSINESS DEVELOPMENT.BULKING MACHINE OPERATOR Work Phone: [facility] 09-20-2022 09:46-0400 Body temperature 97.11 [degF] Kei Pineda DO Work Phone: [facility] 09-20-2022 09:46-0400 Diastolic blood pressure 60 mm[Hg] Kei Pineda DO Work Phone: [facility] 09-20-2022 09:46-0400 Heart rate 88 /min Kei Pineda DO Work Phone: [facility] 09-20-2022 09:46-0400 Respiratory rate 20 /min Kei Pineda DO Work Phone: [facility] 09-20-2022 09:46-0400 Systolic blood pressure 112 mm[Hg] Kei Pineda DO Work Phone: [facility] 07-20-2022 10:40-0500 Body temperature 96.3 [degF] Kei Pineda DO Work Phone: [facility] 07-20-2022 10:40-0500 Diastolic blood pressure 64 mm[Hg] Kei Pineda DO Work Phone: [facility] 07-20-2022 10:40-0500 Heart rate 64 /min Kei Pineda DO Work Phone: [facility] 07-20-2022 10:40-0500 Respiratory rate 20 /min Kei Pineda DO Work Phone: [facility] 07-20-2022 10:40-0500 Systolic blood pressure 120 mm[Hg] Kei Pineda DO Work Phone: [facility] 04-28-2022 11:02-0400 Body temperature 98.1 [degF] Lizzie Zurawick DIRECTOR OF BUSINESS DEVELOPMENT.BULKING MACHINE OPERATOR Work Phone: [facility] 04-28-2022 11:02-0400 Body weight 84.91 kg Lizzie Zurawick DIRECTOR OF BUSINESS DEVELOPMENT.BULKING MACHINE OPERATOR Work Phone: [facility] 04-28-2022 11:02-0400 Diastolic blood pressure 80 mm[Hg] Lizzie Zurawick DIRECTOR OF BUSINESS DEVELOPMENT.BULKING MACHINE OPERATOR Work Phone: [facility] 04-28-2022 11:02-0400 Heart rate 113 /min Lizzie Zurawick DIRECTOR OF BUSINESS DEVELOPMENT.BULKING MACHINE OPERATOR Work Phone: [facility] 04-28-2022 11:02-0400 SaO2% (BldA) [Mass fraction] 95 % Lizzie Zurawick DIRECTOR OF BUSINESS DEVELOPMENT.BULKING MACHINE OPERATOR Work Phone: [facility] 04-28-2022 11:02-0400 Systolic blood pressure 130 mm[Hg] Lizzie Zurawick DIRECTOR OF BUSINESS DEVELOPMENT.BULKING MACHINE OPERATOR Work Phone: [facility] 03-04-2022 12:39-0400 Body weight 84.01 kg Gerardo Chaneyman DIRECTOR OF BUSINESS DEVELOPMENT.BULKING MACHINE OPERATOR Work Phone: [facility] 03-04-2022 12:39-0400 Diastolic blood pressure 68 mm[Hg] Gerardo Jailene DIRECTOR OF BUSINESS DEVELOPMENT.BULKING MACHINE OPERATOR Work Phone: [facility] 03-04-2022 12:39-0400 Heart rate 77 /min Gerardo Jailene DIRECTOR OF BUSINESS DEVELOPMENT.BULKING MACHINE OPERATOR Work Phone: [facility] 03-04-2022 12:39-0400 Respiratory rate 16 /min Gerardo Jailene DIRECTOR OF BUSINESS DEVELOPMENT.BULKING MACHINE OPERATOR Work Phone: [facility] 03-04-2022 12:39-0400 SaO2% (BldA) [Mass fraction] 96 % Gerardo Jailene DIRECTOR OF BUSINESS DEVELOPMENT.BULKING MACHINE OPERATOR Work Phone: [facility] 03-04-2022 12:39-0400 Systolic blood pressure 104 mm[Hg] Gerardo Jailene DIRECTOR OF BUSINESS DEVELOPMENT.BULKING MACHINE OPERATOR Work Phone: [facility] 02-03-2022 10:10-0400 Body weight 84.28 kg Gerardo Jailene DIRECTOR OF BUSINESS DEVELOPMENT.BULKING MACHINE OPERATOR Work Phone: [facility] 02-03-2022 10:10-0400 Diastolic blood pressure 76 mm[Hg] Gerardo Jailene DIRECTOR OF BUSINESS DEVELOPMENT.BULKING MACHINE OPERATOR Work Phone: [facility] 02-03-2022 10:10-0400 Heart rate 64 /min Gerardo Jailene DIRECTOR OF BUSINESS DEVELOPMENT.BULKING MACHINE OPERATOR Work Phone: [facility] 02-03-2022 10:10-0400 SaO2% (BldA) [Mass fraction] 99 % Gerardo Jailene DIRECTOR OF BUSINESS DEVELOPMENT.BULKING MACHINE OPERATOR Work Phone: [facility] 02-03-2022 10:10-0400 Systolic blood pressure 120 mm[Hg] Gerardo Jailene DIRECTOR OF BUSINESS DEVELOPMENT.BULKING MACHINE OPERATOR Work Phone: [facility] 01-06-2022 13:52-0400 Body temperature 96.49 [degF] Kei Pineda DO Work Phone: [facility] 01-06-2022 13:52-0400 Body weight 83.46 kg Kei Pineda DO Work Phone: [facility] 01-06-2022 13:52-0400 Diastolic blood pressure 60 mm[Hg] Kei Pineda DO Work Phone: [facility] 01-06-2022 13:52-0400 Heart rate 76 /min Kei Pineda DO Work Phone: [facility] 01-06-2022 13:52-0400 Respiratory rate 20 /min Kei Pineda DO Work Phone: [facility] 01-06-2022 13:52-0400 Systolic blood pressure 100 mm[Hg] Kei Pineda DO Work Phone: [facility] 11-09-2021 10:26-0400 Body weight 85.73 kg Lizzie Zurawick DIRECTOR OF BUSINESS DEVELOPMENT.BULKING MACHINE OPERATOR Work Phone: [facility] 11-09-2021 10:26-0400 Diastolic blood pressure 80 mm[Hg] Lizzie Zurawick DIRECTOR OF BUSINESS DEVELOPMENT.BULKING MACHINE OPERATOR Work Phone: [facility] 11-09-2021 10:26-0400 Heart rate 62 /min Lizzie Zurawick DIRECTOR OF BUSINESS DEVELOPMENT.BULKING MACHINE OPERATOR Work Phone: [facility] 11-09-2021 10:26-0400 Respiratory rate 16 /min Lizzie Zurawick DIRECTOR OF BUSINESS DEVELOPMENT.BULKING MACHINE OPERATOR Work Phone: [facility] 11-09-2021 10:26-0400 Systolic blood pressure 120 mm[Hg] Lizzie Zurawick DIRECTOR OF BUSINESS DEVELOPMENT.BULKING MACHINE OPERATOR Work Phone: [facility] Encounters Encounter Date Encounter Type Care Provider Facility Start: 04-05-2024 End: 04-06-2024 Refill Kei Carron DO Work Phone: [facility] Comment on above: Results (Pt is reque sting lab results from ); Refill Request Start: 03-21-2024 End: 03-21-2024 ambulatory KEI PINEDA Facility:[facility] Start: 03-21-2024 End: 03-22-2024 Telephone encounter Kei Urbinarison DO Work Phone: [facility] Start: 03-21-2024 End: 03-21-2024 ambulatory BOLA DOBSON [facility] Start: 03-21-2024 End: 03-21-2024 Patient encounter procedure Kei Jeff Carron DO Work Phone: [facility] [place] Comment on above: Hypercalcemia (Prima ry Dx); Hot flashes due to menopause; Bipolar 2 disorder, major depressive episode (HCC); Fatigue, unspecified type; Vitamin D deficiency; Hypoalbuminemia; Diffuse myofascial pain syndrome; Hypothyroidism, acquired Status post right el bow joint replacement (Primary Dx) Start: 02-13-2024 Telephone encounter Kei gallagher DO Work Phone: [facility] [place] Comment on above: Medication Request Start: 12-27-[address] mendoza DIRECTOR OF BUSINESS DEVELOPMENT.BULKING MACHINE OPERATOR Work Phone: [facility] [place] Comment on above: Results Start: 12-23-2023 End: 12-23-2023 ambulatory LIZZIE MEIER Facility:[facility] Start: 12-22-2023 End: 12-22-2023 ambulatory LIZZIE MEIER Facility:[facility] Start: 12-22-2023 End: 12-22-2023 Patient encounter procedure Lizzie Meier DIRECTOR OF BUSINESS DEVELOPMENT.BULKING MACHINE OPERATOR Work Phone: [facility] [place] Comment on above: Bipolar 2 disorder, major depressive episode (HCC) (Primary Dx); Cognitive impairment, mild, so stated; Class 2 obesity with body mass index (BMI) of 35.0 to 35.9 in adult, unspecified obesity type, unspecified whether serious comorbidity present Start: 12-15-[address] kelly TYLER.BULKING MACHINE OPERATOR Work Phone: [facility] [place] Comment on above: Results Start: 12-15-2023 End: 12-15-2023 ambulatory KEI PINEDA Facility:[facility] Start: 12-15-2023 End: 12-15-2023 Subsequent hospital visit by physician Mri [facility] (I-Stat/1.5t) Work Phone: Radiology Comment on above: Fall, initial encoun ter [W19.XXXA] Start: 12-12-2023 Telephone encounter Kei gallagher DO Work Phone: [facility] Comment on above: Insurance Authorizat ion (Nystop powder) Start: 12-01-2023 End: 12-01-2023 ambulatory LIZZIE MEIER Facility:[facility] Start: 12-01-2023 End: 12-01-2023 Patient encounter procedure Lizzie Meier DIRECTOR OF BUSINESS DEVELOPMENT.BULKING MACHINE OPERATOR Work Phone: [facility] Comment on above: Confusion (Primary D x); Fall, initial encounter; Short-term memory loss; Headaches; Mood swings; Age-related osteoporosis without current pathological fracture; Low blood sugar; Gastroesophageal reflux disease without esophagitis; Screening for osteoporosis; Asymptomatic menopause; Cognitive impairment, mild, so stated; Dyslipidemia; Situational anxiety; Hypertension, unspecified type; IFG (impaired fasting glucose) Start: 11-21-2023 Refill Kei bar DO Work Phone: [facility] Comment on above: Refill Request Start: 11-15-2023 End: 11-15-2023 ambulatory GERARDO MILLIGAN Facility:[facility] Start: 11-15-2023 End: 11-15-2023 Patient encounter procedure Gerardo Jailene DIRECTOR OF BUSINESS DEVELOPMENT.BULKING MACHINE OPERATOR Work Phone: [facility] Comment on above: Scalp psoriasis (Jennifer charlee Dx); Psoriasis; Acute otitis media, left; Hot flashes due to menopause; Bipolar 2 disorder, major depressive episode (HCC); Impacted cerumen of right ear Start: 10-26-2023 End: 10-26-2023 Subsequent hospital visit by physician Huyen [facility] [place] Work Phone: Radiology Comment on above: Arm injuries, left, initial encounter [S49.92XA] Start: 10-26-2023 End: 10-26-2023 ambulatory KEI PINEDA Facility:[facility] Start: 10-26-2023 End: 10-26-2023 Patient encounter procedure Nancy Garibay APRN.BULKING MACHINE OPERATOR Work Phone: [facility] Comment on above: Arm injuries, left, initial encounter (Primary Dx); Rash Start: 10-21-2023 Telephone encounter Manda marrero [facility] Work Phone: Psychology Comment on above: bh consult Start: 06-20-2023 End: 06-20-2023 Patient encounter procedure Bola Dobson MD Work Phone: [facility] Comment on above: Status post right el bow joint replacement (Primary Dx) Start: 06-20-2023 End: 06-20-2023 ambulatory KEI PINEDA Facility:[facility] Start: 06-09-2023 Telephone encounter Kei gallagher DO Work Phone: [facility] [place] Comment on above: Patient Question Start: 05-30-2023 End: 05-30-2023 Patient encounter procedure oJse Ta DIRECTOR OF BUSINESS DEVELOPMENT.BULKING MACHINE OPERATOR Work Phone: [facility] [place] Comment on above: Dermatitis contact ( Primary Dx) Start: 05-30-2023 End: 05-30-2023 ambulatory JOSE TA Facility:[facility] Start: 05-11-2023 Refill Kei bar DO Work Phone: [facility] [place] Comment on above: Refill Request Start: 04-15-2023 End: 04-15-2023 Patient encounter procedure Bola Dobson MD Work Phone: [facility] Comment on above: Status post right el bow joint replacement (Primary Dx) Start: 04-15-2023 End: 04-15-2023 ambulatory KEI PINEDA Facility:[facility] Start: 04-13-2023 Telephone encounter Bola bennett MD Work Phone: [facility] Comment on above: Appointment Reschedu led Start: 04-08-2023 Telephone encounter Kei cuetowoodrow DO Work Phone: [facility] [place] Comment on above: Patient Question Start: 03-21-2023 Orders Only Bola Dobson MD Work Phone: [facility] Comment on above: Other open nondispla ana fracture of distal end of right humerus, initial encounter (Primary Dx) Start: 02-17-2023 End: 02-17-2023 Patient encounter procedure Lizzie Meier DIRECTOR OF BUSINESS DEVELOPMENT.BULKING MACHINE OPERATOR Work Phone: [facility] [place] Comment on above: Grieving (Primary Dx ); Situational anxiety; Bipolar 2 disorder, major depressive episode (HCC) Start: 02-09-2023 ambulatory Kei bar DO Work Phone: [facility] [place] Start: 02-07-2023 Telephone encounter Kei gallagher DO Work Phone: [facility] [place] Comment on above: Patient Update; Medi cation Request Start: 12-17-2022 Telephone encounter Faby negrete DIRECTOR OF BUSINESS DEVELOPMENT.BULKING MACHINE OPERATOR Work Phone: [facility] [place] Comment on above: Appointment (TCM) Start: 09-20-2022 End: 09-20-2022 Patient encounter procedure Kei Pineda DO Work Phone: [facility] [place] Comment on above: Chronic left shoulde r pain (Primary Dx); Closed nondisplaced fracture of surgical neck of left humerus with routine healing, unspecified fracture morphology, subsequent encounter; Pulmonary emphysema, unspecified emphysema type (HCC); Chronic pain syndrome; Fatigue, unspecified type Start: 08-27-[address] mendoza DIRECTOR OF BUSINESS DEVELOPMENT.BULKING MACHINE OPERATOR Work Phone: [facility] [place] Comment on above: Orders Start: 07-20-2022 End: 07-20-2022 Patient encounter procedure Kei Pineda DO Work Phone: [facility] [place] Comment on above: Closed nondisplaced fracture of surgical neck of left humerus with routine healing, unspecified fracture morphology, subsequent encounter (Primary Dx); Seasonal allergic rhinitis due to other allergic trigger; Iron deficiency anemia, unspecified iron deficiency anemia type; Age-related osteoporosis without current pathological fracture; Eczema of both external ears; Bipolar 2 disorder, major depressive episode (HCC) Start: 07-13-2022 Telephone encounter Kei gallagher DO Work Phone: [facility] [place] Comment on above: Patient Update; Appo intment Start: 04-29-2022 Telephone encounter Lizzie saini DIRECTOR OF BUSINESS DEVELOPMENT.BULKING MACHINE OPERATOR Work Phone: [facility] [place] Comment on above: Results Start: 04-28-2022 Telephone encounter Lizzie saini DIRECTOR OF BUSINESS DEVELOPMENT.BULKING MACHINE OPERATOR Work Phone: [facility] Comment on above: Results Start: 04-28-2022 End: 04-28-2022 Subsequent hospital visit by physician Huyen [facility] [place] Work Phone: Radiology Comment on above: Acute cough [R05.1] Start: 04-28-2022 End: 04-28-2022 Patient encounter procedure Lizzie Ramey APRN.BULKING MACHINE OPERATOR Work Phone: [facility] Comment on above: Acute cough (Primary Dx); Sore throat Start: 04-13-2022 End: 04-13-2022 ambulatory Suad Mcfadden PIECE PRESSER Work Phone: [facility] Comment on above: Primary osteoarthrit is involving multiple joints (Primary Dx); Cervicalgia; Chronic pain syndrome Start: 03-30-2022 End: 03-30-2022 ambulatory Suad Clevelandlily PIECE PRESSER Work Phone: [facility] Comment on above: Primary osteoarthrit is involving multiple joints (Primary Dx); Cervicalgia; Chronic pain syndrome Start: 03-29-2022 Telephone encounter Gerardo Toledo APRN.BULKING MACHINE OPERATOR Work Phone: [facility] Comment on above: Results Start: 03-11-2022 End: 03-11-2022 ambulatory Vinnie Palomino GORDON [facility] Comment on above: Primary osteoarthrit is involving multiple joints (Primary Dx); Cervicalgia; Chronic pain syndrome Start: 03-10-2022 ambulatory Kei Loera son DO Work Phone: Internal Medicine [facility] Start: 03-10-2022 End: 03-10-2022 Subsequent hospital visit by physician Huyen [facility] Work Phone: Radiology Comment on above: Obesity, Class II, B WV 35-39.9 [E66.9] Start: 03-04-2022 End: 03-04-2022 Patient encounter procedure Gerardo Milligan APRN.BULKING MACHINE OPERATOR Work Phone: [facility] Comment on above: Obesity, Class II, B WV 35-39.9 (Primary Dx); Dyslipidemia; Cervicalgia; Chronic pain syndrome; Diffuse myofascial pain syndrome; Spondylosis; Primary osteoarthritis involving multiple joints; Screening for colon cancer; Neck pain; Nausea Start: 02-03-2022 End: 02-03-2022 Patient encounter procedure Gerardo Milligan DIRECTOR OF BUSINESS DEVELOPMENT.BULKING MACHINE OPERATOR Work Phone: [facility] Comment on above: Obesity, Class II, B WV 35-39.9 (Primary Dx); Dyslipidemia Start: 01-29-2022 Refill Geoffrey WOOD RN.[facility] Work Phone: [facility] Comment on above: Refill Request Start: 01-06-2022 End: 01-06-2022 Patient encounter procedure Kei Pineda DO Work Phone: [facility] Comment on above: Dyslipidemia (Primar y Dx); Seasonal allergic rhinitis due to other allergic trigger; Obesity, Class II, BMI 35-39.9; Fatigue, unspecified type; Iron deficiency anemia, unspecified iron deficiency anemia type; Age-related osteoporosis without current pathological fracture; Mixed hyperlipidemia; Vitamin D deficiency; Chronic obstructive pulmonary disease, unspecified COPD type (HCC); Chronic pain syndrome Start: 11-13-2021 Telephone encounter Lizzie saini APRN.[facility] Work Phone: [facility] Comment on above: Results Start: 11-11-2021 Telephone encounter Lizzie saini DIRECTOR OF BUSINESS DEVELOPMENT.BULKING MACHINE OPERATOR Work Phone: [facility] Comment on above: Results Start: 11-09-2021 End: 11-09-2021 Patient encounter procedure Lizzie Ramey DIRECTOR OF BUSINESS DEVELOPMENT.BULKING MACHINE OPERATOR Work Phone: [facility] Comment on above: Syncope, unspecified syncope type (Primary Dx); Low blood sugar; Palpitations; Fatigue, unspecified type; Iron deficiency anemia, unspecified iron deficiency anemia type; Dyslipidemia Start: 10-12-2021 ambulatory Fern Finnegan MA [facility] Comment on above: Population Health Na vigation Outreach (ACO [place] PCSA ) Start: 08-26-2021 End: 08-26-2021 Subsequent hospital visit by physician Huyen [facility] [place] Work Phone: Radiology Comment on above: Fall, initial encoun ter [W19.XXXA] Start: 07-23-2021 Telephone encounter Kei gallagher DO Work Phone: [facility] Comment on above: Covid19 Concern Start: 07-22-2021 End: 07-22-2021 Subsequent hospital visit by physician [facility]r [facility] [employer] Work Phone: Radiology Comment on above: Suspected COVID-19 v irus infection [Z20.822] Start: 05-07-2021 End: 05-07-2021 Subsequent hospital visit by physician Xr [facility] [employer] Work Phone: Radiology Comment on above: Acute pain of left k nee [M25.562] Start: 04-29-2021 End: 04-29-2021 Subsequent hospital visit by physician Xr [facility] [employer] Work Phone: Radiology Comment on above: Acute bilateral thor acic back pain [M54.6] Start: 01-14-2021 End: 01-14-2021 Subsequent hospital visit by physician Xr [facility] [employer] Work Phone: Radiology Comment on above: Acute right-sided lo w back pain without sciatica [M54.5] Procedures Date Procedure Procedure Detail Performing Clinician Start: 03-23-2024 Radex elbow complete minimum 3 views Bola Dobson MD Work Phone: Start: 12-23-2023 Lipid 1996 panel - S micheline or Plasma Gerardo Milligan DIRECTOR OF BUSINESS DEVELOPMENT.BULKING MACHINE OPERATOR Work Phone: Start: 12-15-2023 Mri brain brain stem w/o contrast material Lizzie Hardeep DIRECTOR OF BUSINESS DEVELOPMENT.BULKING MACHINE OPERATOR Work Phone: Start: 10-26-2023 Radex humerus minimu m 2 views Nancy Garibay DIRECTOR OF BUSINESS DEVELOPMENT.BULKING MACHINE OPERATOR Work Phone: Start: 06-20-2023 Radex elbow complete minimum 3 views Bola Dobson MD Work Phone: Start: 04-15-2023 Radex elbow complete minimum 3 views Bola Dobson MD Work Phone: Start: 04-28-2022 Radiologic exam ches t 2 views Lizzie Meier DIRECTOR OF BUSINESS DEVELOPMENT.BULKING MACHINE OPERATOR Work Phone: Start: 03-10-2022 Radex spine cervical 4 or 5 views Gerardo Milligan DIRECTOR OF BUSINESS DEVELOPMENT.BULKING MACHINE OPERATOR Work Phone: Start: 11-09-2021 Lipid 1996 panel - S micheline or Plasma Kei Carron DO Work Phone: Start: 08-26-2021 Radex ribs uni w/posteroant ch minimum 3 views Gerardo Milligan DIRECTOR OF BUSINESS DEVELOPMENT.BULKING MACHINE OPERATOR Work Phone: Start: 07-22-2021 Radiologic exam ches t 2 views Edd John DIRECTOR OF BUSINESS DEVELOPMENT.BULKING MACHINE OPERATOR Work Phone: Start: 05-07-2021 Radiologic exam knee complete 4/more views Laurence Maravilla PA-C Work Phone: Start: 04-29-2021 Radex ribs bi w/post eroant ch minimum 4 views Kei Urbinarison DO Work Phone: Start: 01-14-2021 Radex spine lumbosac ral 2/3 views Arian Fuentes MD Work Phone: Start: 06-02-2016 Mammography Fern ignacio MA Plan of Treatment Date Care Activity Detail Author Start: 12-22-2028 Lipid panel Lipid Screening [facility] Start: 03-21-2027 Diabetes Screening Diabetes Screenin g [facility] Start: 12-22-2026 Diabetes Screening Diabetes Screenin g [facility] Start: 11-09-2026 Lipid 1996 panel - S micheline or Plasma Lipid Screening [facility] Start: 11-09-2026 Lipid panel Lipid Screening [facility] Start: 11-09-2026 LIPID SCREEN LIPID SCREEN [facility] Start: 08-04-2026 Urine microalbumin profile [facility] Start: 05-07-2026 LIPID SCREEN LIPID SCREEN [facility] Start: 03-26-2026 Diabetes Screening Diabetes Screenin g [facility] Start: 03-21-2026 DIABETES SCREEN DIABETES SCREEN [facility] Start: 03-22-2025 COLOGUARD (FIT-DNA) COLOGUARD (FIT-D NA) [facility] Start: 03-22-2025 COLORECTAL CANCER SCREENING COLORECTAL CANCER SCREENING [facility] Start: 03-22-2025 Screening for malign ant neoplasm of colon [facility] Start: 03-22-2025 End: 03-22-2025 Patient encounter procedure 03/22/2025 11:30 AM EDT Office Visit [facility] [address] [place] [address] Bola Dobson MD [address] [place] [address] RIGHT ELBOW [facility] Comment on above: RIGHT ELBOW Start: 03-21-2025 Annual PCP Team Software Verification Engineer kris Disease Visit Annual PCP Team Chronic Disease Visit [facility] Start: 12-21-2024 Annual PCP Team Software Verification Engineer kris Disease Visit Annual PCP Team Chronic Disease Visit [facility] Start: 11-30-2024 Annual PCP Team Software Verification Engineer kris Disease Visit Annual PCP Team Chronic Disease Visit [facility] Start: 11-30-2024 Covid-19 Vaccine ( season) Covid-19 Vaccine ( season) [facility] Comment on above: Postponed from 08/28 (Declined at this time) Start: 11-30-2024 RSV Vaccine (1 - 1-d ose 60+ series) RSV Vaccine (1 - 1-dose 60+ series) [facility] Comment on above: Postponed from 04/04 (Declined at this time) Start: 11-30-2024 RSV Vaccine (1 - 1-d ose 75+ series) RSV Vaccine (1 - 1-dose 75+ series) [facility] Comment on above: Postponed from 04/04 (Declined at this time) Start: 11-30-2024 Shingrix Vaccine (1 of 2) Dominguez grix Vaccine (1 of 2) [facility] Comment on above: Postponed from 04/04 (Declined at this time) Start: 11-14-2024 Annual PCP Team Software Verification Engineer kris Disease Visit Annual PCP Team Chronic Disease Visit [facility] Start: 11-09-2024 DIABETES SCREEN DIABETES SCREEN [facility] Start: 06-12-2024 End: 06-12-2024 Patient encounter procedure 06/12/2024 12:30 PM EST Office Visit Neurology [address] [address] Sravani Phillip APRN.BULKING MACHINE OPERATOR [address] [place] [address] Cognitive impairment [R41.89] Neurology Comment on above: Cognitive impairment [R41.89] Start: 05-30-2024 Annual PCP Team Software Verification Engineer kris Disease Visit Annual PCP Team Chronic Disease Visit [facility] Start: 05-07-2024 DIABETES SCREEN DIABETES SCREEN [facility] Start: 03-21-2024 End: 06-20-2024 25-hydroxyvitamin D3 [Mass/volume] in Serum or Plasma [facility] Comment on above: Expected: 03/21/2024 , Expires: 06/20/2024 Start: 03-21-2024 End: 06-20-2024 Cobalamin (Vitamin B12) [Mass/volume] in Serum or Plasma [facility] Comment on above: Expected: 03/21/2024 , Expires: 06/20/2024 Start: 03-21-2024 End: 06-20-2024 Comprehensive metabolic 2000 panel - Serum or Plasma [facility] Work Phone: Comment on above: Expected: 03/21/2024 , Expires: 06/20/2024 Start: 03-21-2024 End: 06-20-2024 Magnesium [Mass/volume] in Serum or Plasma [facility] Comment on above: Expected: 03/21/2024 , Expires: 06/20/2024 Start: 03-21-2024 End: 06-20-2024 Parathyrin.intact [Mass/volume] in Serum or Plasma [facility] Comment on above: Expected: 03/21/2024 , Expires: 06/20/2024 Start: 03-21-2024 End: 06-20-2024 Prealbumin [Mass/volume] in Serum or Plasma [facility] Comment on above: Expected: 03/21/2024 , Expires: 06/20/2024 Start: 03-21-2024 End: 06-20-2024 Thyrotropin [Units/volume] in Serum or Plasma [facility] Comment on above: Expected: 03/21/2024 , Expires: 06/20/2024 Start: 03-21-2024 End: 03-21-2024 Patient encounter procedure [facility] Comment on above: RIGHT ELBOW - 9 RAVEN H FU 3 month f/up 3 month follow up Start: 03-11-2024 Covid-19 Vaccine ( season) Covid-19 Vaccine () [facility] Start: 03-11-2024 Covid-19 Vaccine ( season) Covid-19 Vaccine () [facility] Start: 03-11-2024 Influenza vaccination C [facility] Start: 02-20-2024 End: 02-20-2024 Patient encounter procedure 02/20/2024 10:40 AM EDT Office Visit [facility] [place] [address] [place] [address] Lizzie Meier APRN.BULKING MACHINE OPERATOR [address] [place] [address] cat scan results [facility] Comment on above: cat scan results Start: 02-18-2024 ANNUAL PCP TEAM RDA KRIS DISEASE VISIT ANNUAL PCP TEAM CHRONIC DISEASE VISIT [facility] Start: 01-24-2024 End: 01-24-2024 Patient encounter procedure 01/24/2024 1:00 PM EDT Office Visit OB/Gynecology [address] [place] [address] Sravani Solano APRN.BULKING MACHINE OPERATOR [address] [place] [place] [address] wgt managment consult OB/Gynecology Comment on above: wgt managment consul t Start: 12-22-2023 ANNUAL PCP TEAM RDA KRIS DISEASE VISIT ANNUAL PCP TEAM CHRONIC DISEASE VISIT [facility] Start: 12-22-2023 End: 12-22-2023 Patient encounter procedure 12/22/2023 9:20 AM EDT Office Visit [facility] [address] [place] [address] Lizzie Meier APRN.BULKING MACHINE OPERATOR [address] [place] [address] -discuss antidepressant therapy (see phone encounter of 12/11) [facility] [place] Comment on above: -discuss antidepress ant therapy (see phone encounter of 12/11) Start: 12-01-2023 End: 03-01-2024 CBC W Auto Differential panel - Blood COMPLETE BLOOD COUNT AND DIFFERENTIAL Lab Routine Cognitive impairment, mild, so stated Situational anxiety Hypertension, unspecified type Expected: 12/01/2023, Expires: 03/01/2024 [facility] Comment on above: Expected: 12/01/2023 , Expires: 03/01/2024 Start: 12-01-2023 End: 03-01-2024 Comprehensive metabolic 2000 panel - Serum or Plasma COMPREHENSIVE METABOLIC PANEL Lab Routine Cognitive impairment, mild, so stated Hypertension, unspecified type Expected: 12/01/2023, Expires: 03/01/2024 [facility] Comment on above: Expected: 12/01/2023 , Expires: 03/01/2024 Start: 12-01-2023 End: 03-01-2024 Hemoglobin A1c in Blood HEMOGLOBIN A1C Lab Routine Cognitive impairment, mild, so stated Hypertension, unspecified type IFG (impaired fasting glucose) Expected: 12/01/2023, Expires: 03/01/2024 [facility] Comment on above: Expected: 12/01/2023 , Expires: 03/01/2024 Start: 12-01-2023 End: 03-01-2024 Lipid 1996 panel - Serum or Plasma LIPID PANEL BASIC Lab Routine Cognitive impairment, mild, so stated Dyslipidemia Hypertension, unspecified type Expected: 12/01/2023, Expires: 03/01/2024 [facility] Comment on above: Expected: 12/01/2023 , Expires: 03/01/2024 Start: 09-21-2023 ANNUAL PCP TEAM RDA KRIS DISEASE VISIT ANNUAL PCP TEAM CHRONIC DISEASE VISIT [facility] Start: 08-28-2023 Covid-19 Vaccine ( season) Covid-19 Vaccine () [facility] Start: 07-20-2023 ANNUAL PCP TEAM RDA KRIS DISEASE VISIT ANNUAL PCP TEAM CHRONIC DISEASE VISIT [facility] Start: 04-28-2023 ANNUAL PCP TEAM RDA KRIS DISEASE VISIT ANNUAL PCP TEAM CHRONIC DISEASE VISIT [facility] Start: 03-12-2023 COVID-19 VACCINE (5 - Pfizer series) COVID-19 VACCINE (5 - Pfizer series) [facility] Start: 03-11-2023 Influenza vaccination C [facility] Start: 03-04-2023 ANNUAL PCP TEAM RDA KRIS DISEASE VISIT ANNUAL PCP TEAM CHRONIC DISEASE VISIT [facility] Start: 02-03-2023 ANNUAL PCP TEAM RDA KRIS DISEASE VISIT ANNUAL PCP TEAM CHRONIC DISEASE VISIT [facility] Start: 01-07-2023 Influenza vaccination INFLUENZA (#1) [facility] Comment on above: Postponed from 03/11 (Declined at this time) Start: 01-06-2023 ANNUAL PCP TEAM RDA KRIS DISEASE VISIT ANNUAL PCP TEAM CHRONIC DISEASE VISIT [facility] Start: 11-09-2022 ANNUAL PCP TEAM RDA KRIS DISEASE VISIT ANNUAL PCP TEAM CHRONIC DISEASE VISIT [facility] Start: 08-26-2022 ANNUAL PCP TEAM RDA KRIS DISEASE VISIT ANNUAL PCP TEAM CHRONIC DISEASE VISIT [facility] Start: 07-11-2022 ADVANCE DIRECTIVE DISCUSSION ADVANCE DIRECTIVE DISCUSSION [facility] Start: 05-06-2022 COLORECTAL CANCER SCREENING COLORECTAL CANCER SCREENING [facility] Start: 05-06-2022 FECAL OCCULT BLOOD FECAL OCCULT BLOO D [facility] Start: 05-06-2022 Screening for malign ant neoplasm of colon Fecal Occult Blood [facility] Start: 03-11-2022 Influenza vaccination INFLUENZA (#1) [facility] Start: 11-09-2021 End: 01-09-2022 CBC panel - Blood by Automated count [facility] Work Phone: Comment on above: Expected: 11/09/2021 , Expires: 01/09/2022 Start: 11-09-2021 End: 01-09-2022 Comprehensive metabolic 2000 panel - Serum or Plasma [facility] Work Phone: Comment on above: Expected: 11/09/2021 , Expires: 01/09/2022 Start: 11-09-2021 End: 01-09-2022 FERRITIN BLD [facility] Work Phone: Comment on above: Expected: 11/09/2021 , Expires: 01/09/2022 Start: 11-09-2021 End: 01-09-2022 Hemoglobin A1c/Hemoglobin.total in Blood [facility] Work Phone: Comment on above: Expected: 11/09/2021 , Expires: 01/09/2022 Start: 11-09-2021 End: 01-09-2022 Insulin [Units/volume] in Serum or Plasma [facility] Work Phone: Comment on above: Expected: 11/09/2021 , Expires: 01/09/2022 Start: 11-09-2021 End: 01-09-2022 IRON + TIBC [facility] Work Phone: Comment on above: Expected: 11/09/2021 , Expires: 01/09/2022 Start: 11-09-2021 End: 01-09-2022 LIPID PANEL BASIC [facility] Work Phone: Comment on above: Expected: 11/09/2021 , Expires: 01/09/2022 Start: 11-09-2021 End: 01-09-2022 Thyrotropin [Units/volume] in Serum or Plasma [facility] Work Phone: Comment on above: Expected: 11/09/2021 , Expires: 01/09/2022 Start: 09-16-2021 COVID-19 VACCINE (4 - Booster for Pfizer series) COVID-19 VACCINE (4 - Booster for Pfizer series) [facility] Start: 07-14-2021 COVID-19 VACCINE (4 - Booster for Pfizer series) COVID-19 VACCINE (4 - Booster for Pfizer series) [facility] Start: 07-11-2021 ADVANCE DIRECTIVE DISCUSSION ADVANCE DIRECTIVE DISCUSSION [facility] Start: 06-02-2018 Screening for osteoporosis Bone Density Screening [facility] Start: 06-02-2017 Mammography [facility] Start: 2008 RSV Vaccine (1 - 1-d ose 60+ series) RSV Vaccine (1 - 1-dose 60+ series) [facility] Start: 1998 SHINGRIX VACCINE (1 of 2) DOMINGUEZ GRIX VACCINE (1 of 2) [facility] Start: 1993 COLOGUARD (FIT-DNA) COLOGUARD (FIT-D NA) [facility] Start: 1993 Colonoscopy COLONOSCOPY [facility] Start: [address] COLONOGRAPHY [facility] Start: 1993 Screening for malign ant neoplasm of colon [facility] Start: 1993 SIGMOIDOSCOPY SIGMOIDOSCOPY [facility] Start: 1978 Zoledronic acid therapy ALPHA- 1 ANTITRYPSIN DEFICIENCY SCREENING [facility] Start: 1966 Anxiety Screening Anxiety Screening [facility] Start: 1966 SPIROMETRY SPIROMETRY [facility] End: 12-30-2024 BD DXA TRABECULAR BONE SCORE (TBS) BD DXA TRABECULAR BONE SCORE (TBS) Radiology Routine Age-related osteoporosis without current pathological fracture Screening for osteoporosis Asymptomatic menopause 1 Occurrences starting 12/01/2023 until 12/30/2024 [facility] Comment on above: 1 Occurrences starti ng 12/01/2023 until 12/30/2024 COLOGUARD COLOGUARD Lab Ro utine Screening for colon cancer Ordered: 03/04/2022 [facility] Work Phone: Comment on above: Ordered: 03/04/2022 End: 12-30-2024 DXA Skeletal system.axial Views for bone density DXA-AXIAL SKELETON Radiology Routine Age-related osteoporosis without current pathological fracture Screening for osteoporosis Asymptomatic menopause 1 Occurrences starting 12/01/2023 until 12/30/2024 [facility] Work Phone: Comment on above: 1 Occurrences starti ng 12/01/2023 until 12/30/2024 End: 11-09-2022 ECG COMPLETE ECG COMPLETE ECG Routine Syncope, unspecified syncope type Palpitations 1 Occurrences starting 11/09/2021 until 11/09/2022 [facility] Work Phone: Comment on above: 1 Occurrences starti ng 11/09/2021 until 11/09/2022 End: 11-09-2022 Echocardiography ECHO Cardiology Routine Syncope, unspecified syncope type Palpitations 1 Occurrences starting 11/09/2021 until 11/09/2022 [facility] Work Phone: Comment on above: 1 Occurrences starti ng 11/09/2021 until 11/09/2022 Influenza virus A an d B RNA and SARS-CoV-2 (COVID-19) N gene panel - Respiratory specimen by JOSE FRANCISCO with probe detection COVID WITH FLUA+B, ROUTINE Microbiology Routine Acute cough Sore throat 04/28/2022 11:30 AM EDT [facility] Work Phone: End: 03-10-2024 [facility] [place] [facility] [place] Radiology Routine Encounter for screening mammogram for breast cancer 1 Occurrences starting 02/09/2023 until 03/10/2024 [facility] Work Phone: Comment on above: 1 Occurrences starti ng 02/09/2023 until 03/10/2024 End: 12-30-2024 MR Brain WO contrast MRI BRAIN WO IVCON Radiology Routine Fall, initial encounter Short-term memory loss Headaches Mood swings Age-related osteoporosis without current pathological fracture Cognitive impairment, mild, so stated Confusion 1 Occurrences starting 12/01/2023 until 12/30/2024 [facility] Comment on above: 1 Occurrences starti ng 12/01/2023 until 12/30/2024 PT PLAN OF CARE CERTIFICATION PT PLAN OF CARE CERTIFICATION Procedures Routine Cervicalgia Chronic pain syndrome Primary osteoarthritis involving multiple joints Ordered: 03/11/2022 [facility] Work Phone: Comment on above: Ordered: 03/11/2022 End: 04-03-2023 Radex spine cervical 4 or 5 views XR CERV OTHER 4V AP/LAT/OBL Radiology Routine Obesity, Class II, BMI 35-39.9 Cervicalgia Chronic pain syndrome Diffuse myofascial pain syndrome Spondylosis Primary osteoarthritis involving multiple joints Neck pain 1 Occurrences starting 03/04/2022 until 04/03/2023 [facility] Work Phone: Comment on above: 1 Occurrences starti ng 03/04/2022 until 04/03/2023 End: 04-09-2023 Screening mammography bi 2-view breast inc cad [facility] [place] Radiology Routine Encounter for screening mammogram for breast cancer 1 Occurrences starting 03/10/2022 until 04/09/2023 [facility] Work Phone: Comment on above: 1 Occurrences starti ng 03/10/2022 until 04/09/2023 End: 11-09-2022 US CAROTID ARTERIES [facility] US CAROTID ARTERIES [facility] Vascular Lab Routine Syncope, unspecified syncope type 1 Occurrences starting 11/09/2021 until 11/09/2022 [facility] Work Phone: Comment on above: 1 Occurrences starti ng 11/09/2021 until 11/09/2022 [facility] [place] [facility] Immunizations Immunization Date Immunization Notes Care Provider Opal johnson 11-03-2022 influenza virus vacc ine, unspecified formulation Kei Pineda DO Work Phone: [facility] 05-19-2021 COVID-19 vaccine, ag e 12+ yr (The miqi[employer]cn - PURPLE TOP) Fern Finnegan [facility] Work Phone: 04-29-2021 influenza, high-dose , quadrivalent vaccine (FLUZONE HIGH DOSE QUADRIVALENT) Fern Finnegan [facility] Work Phone: 05-19-2020 pneumococcal polysaccharide vaccine, 23 valent Fern Finnegan [facility] 04-22-2020 influenza, high-dose , quadrivalent vaccine (FLUZONE HIGH DOSE QUADRIVALENT) Fern Finnegan [facility] Work Phone: 04-22-2020 zoster vaccine, recombinant, adjuvanted, (SHINGRIX, PF,) 50 mcg/0.5 mL injection Xr [place] Work Phone: [facility] 03-05-2019 influenza, injectabl e, quadrivalent, contains preservative Fern Finnegan MA [facility] 04-10-2018 influenza, seasonal, injectable Fern Finnegan MA [facility] 04-26-2017 influenza, high dose seasonal, preservative-free Fern Finnegan MA [facility] 08-04-2016 tetanus and diphther ia toxoids, adsorbed, preservative free, for adult use (5 Lf of tetanus toxoid and 2 Lf of diphtheria toxoid) Fern Watermanlabritchie ARELLANO [facility] 06-10-2016 pneumococcal conjuga te vaccine, 13 valent Fern Watermanlabritchie ARELLANO [facility] 05-13-2016 influenza, high dose seasonal, preservative-free Fern Finnegan MA [facility] 05-10-2011 influenza virus vacc ine, unspecified formulation Fern Finnegan MA [facility] 05-20-2010 influenza virus vacc ine, unspecified formulation Fern Finnegan MA [facility] 04-24-2009 influenza virus vacc ine, unspecified formulation Fern Finnegan MA [facility] 05-10-2006 influenza virus vacc ine, unspecified formulation Fern Watermanlabritchie ARELLANO [facility] Work Phone: 04-11-2006 tetanus toxoid, redu ana diphtheria toxoid, and acellular pertussis vaccine, adsorbed Fern Finnegan MA [facility] 05-26-2005 influenza virus vacc ine, unspecified formulation Fern Finnegan [facility] Work Phone: 04-06-2004 pneumococcal polysaccharide vaccine, 23 valent Fern Finnegan [facility] Work Phone: Payers Date Payer Category Payer Private Health Insurance HUMANA HUMANA MEDICARE SUPPLEMENT [id number] 2015-Present [phone] [address] [address] [place] [address] Indemnity [id number] 2015 Private Health Insurance HUMANA HUMANA MEDICARE SUPPLEMENT [id number] 2015-Present [phone] [address] [address] [place] [address] Indemnity [id number] 2015 Medicare [id number] 2013 Medicare MEDICARE MEDICAR E A AND B [id number] 2013-Present [phone] [address] [address] [place] [address] Medicare [id number] 2013 Medicare MEDICARE MEDICAR E A AND B [id number] 2013-Present [phone] [place] [address] Medicare [id number] 2013 Medicare [id number] Social History Date Type Detail Facility Start: 05-29-2015 End: 03-21-2024 Tobacco smoking status NHIS Ex-smoker [facility] End: 04-27-2015 History of tobacco use Current smoker [facility] End: 04-27-2015 History of tobacco use Cigarette Smoker [facility] Start: 05-29-2015 End: 06-17-2020 Cigarettes smoked current (pack per day) - Reported 0.5 [facility] Start: 05-29-2015 End: 03-21-2024 Tobacco use and exposure Smokeless tobacco non-user [facility] Start: 01-14-2021 End: 08-26-2021 Alcohol intake Current non-drinker of alcohol (finding) [facility] Start: 1950 Sex Assigned At Not on file [facility] Start: 12-15-2020 End: 04-28-2022 Exposure to SARS-CoV-2 (event) Not sure [facility] Start: 11-03-2021 End: 11-13-2021 Exposure to SARS-CoV-2 (event) Unable to assess [facility] Start: 06-17-2020 End: 12-21-2022 Tobacco use panel [facility] National Score (1-10 0), lower number is lower risk 48 [facility] How hard is it for y ou to pay for the very basics like food, housing, medical care, and heating Not very hard [facility] (I/We) worried rylan er (my/our) food would run out before (I/we) got money to buy more. Never true [facility] In the past 12 month s, was there a time when you were not able to pay the mortgage or rent on time? No [facility] Medical Equipment Procedure Code Equipment Code Equipment Origin al Text Equipment Identifier Dates Test blood sugar (s) 1 times daily. Dx: Other DM Code hypoglycemia e16.2 Insulin: No [id number], [id number] Start: 11-11-2021 End: 12-01-2023 Comment on above: Test blood sugar(s) 1 times daily. Dx: Other DM Code hypoglycemia e16.2 Insulin: No Cement Simplex P Tobramycin Bone Full Dose Radiopaque Preblend Sterile - [id number] Start: 03-24-2023 Nexel Kit Articulation Sz 5 [id number] Start: 03-24-2023 Stem Nexel 5 75m m Ulnar Right - [id number] Start: 03-24-2023 Nexel Kit Screw Hum [id number] Start: 03-24-2023 Cement Simplex P Tobramycin Bone Full Dose Radiopaque Preblend Sterile - [id number] Start: 03-24-2023 Plug Zim [id number] Nozzle Cement Elbow [id number] Start: 03-24-2023 Stem Nexel 5 100 mm Humeral - [id number] Start: 03-24-2023 Clinical Notes 02-07-2012 to 04-06-2024 Telephone Encounter - Gerardo Milligan APRN.[facility] - 04/06/2024 11:37 AM EDTTelephone Encounter - Gerardo Milligan APRN.CNP - 04/06/2024 11:37 AM Kei Savage DO - 03/21/2024 3:24 PM EDT Note Date & Type Note Facility 04-06-2024 Telephone encounter Note The following approved medication requests have been transmitted electronically. Requested Prescriptions Signed Prescriptions Disp Refills tiZANidine (ZANAFLEX) 4 mg tablet 60 tablet 1 Sig: Take 1 tablet by mouth every 8 hours as needed (muscle spasms). Authorizing Provider: GERARDO MILLIGAN LORazepam (ATIVAN) 0.5 mg 30 tablet 1 Sig: Take 1 tablet by mouth three times a day as needed for up to 30 days. Authorizing Provider: GERARDO MILLIGAN montelukast (SINGULAIR) 10 mg tablet 90 tablet 1 Sig: Take 1 tablet by mouth daily at bedtime. For allergies Authorizing Provider: GERARDO IMLLIGAN famotidine (PEPCID) 20 mg tablet 60 tablet 3 Sig: Take 1 tablet by mouth two times a day. Authorizing Provider: GERARDO MILLIGAN APRN.CNP PDMP website checked and validated. All prescriptions have been APPROPRIATELY filled. No suspicious activity was identified. 04/06/2024 by Gearrdo Milligan CNP. [facility] 04-06-2024 Miscellaneous Notes The following approved medication requests have been transmitted electronically. Requested Prescriptions Signed Prescriptions Disp Refills tiZANidine (ZANAFLEX) 4 mg tablet 60 tablet 1 Sig: Take 1 tablet by mouth every 8 hours as needed (muscle spasms). Authorizing Provider: GERARDO MILLIGAN LORazepam (ATIVAN) 0.5 mg 30 tablet 1 Sig: Take 1 tablet by mouth three times a day as needed for up to 30 days. Authorizing Provider: GERARDO MILLIGAN montelukast (SINGULAIR) 10 mg tablet 90 tablet 1 Sig: Take 1 tablet by mouth daily at bedtime. For allergies Authorizing Provider: GERARDO MILLIGAN famotidine (PEPCID) 20 mg tablet 60 tablet 3 Sig: Take 1 tablet by mouth two times a day. Authorizing Provider: GERARDO MILLIGAN APRN.CNP [facility] website checked and validated. All prescriptions have been APPROPRIATELY filled. No suspicious activity was identified. 04/06/2024 by Gerardo Milligan CNP. Pt was in the office with nephew and requested lab results and refills. She was seen on 03/21/24. Please review and advise. Charo Bowman MA April 05, 2024 3:41 PM documented in this encounter [facility] 04-05-2024 Telephone encounter Note Pt was in the office with nephew and requested lab results and refills. She was seen on 03/21/24. Please review and advise. Charo Bowman MA April 05, 2024 3:41 PM [facility] 03-22-2024 Telephone encounter Note Called lab services spoke with Bhargav , he checked and this was added. [facility] 03-22-2024 Miscellaneous Notes Called lab services spoke with Bhargav , he checked and this was added. Please call lab to see if TSH can be added to blood draw today This is ordered now Kei Pineda DO documented in this encounter [facility] 03-21-2024 Telephone encounter Note Please call lab to see if TSH can be added to blood draw today This is ordered now Kei Pineda DO [facility] 03-21-2024 Note HNO ID: [id number] Author: KEI PINEDA DO Service: ? Author Type: Physician Type: Progress Notes Filed: 03/21/2024 22:14 Note Text: CC: Tasneem Rizzo is a 73 year old female who presents to the office for follow up HPI: Overall she feels she is doing well right now She is back at home She recently had a trip and a fall and was seen at [facility] for evaluation Mood, feels she is overall managing well. She is recently a . in November. She is coping okay. She is thankful to be the caregiver to her disabled grandson and this gives her purpose and hope and she enjoys taking care of him routinely. Hypothyroidism. Hx of, needing labs rechecked Severe spinal arthritis and osteoporosis. Knows need for more consistently exercise. Has fatigue symptoms PAST MEDICAL HISTORY No date: Chronic obstructive pulmonary disease (COPD) (HCC) No date: Degeneration of intervertebral disc, site unspecified No date: Depressive disorder, not elsewhere classified No date: Esophageal reflux No date: Hypothyroidism No date: Obstructive sleep apnea No date: Osteoporosis, unspecified No date: Other affections of shoulder region, not elsewhere classified No date: Right elbow pain PAST SURGICAL HISTORY No date: ARTHROSCOPY KNEE DIAGNOSTIC W/WO SYNOVIAL BX SPX Comment: Arthroscopy, knee No date: DELIVERY ONLY Comment: , low cervical No date: CHOLECYSTECTOMY Comment: Cholecystectomy 03/06/07: IMPLANT MESH OPN HERNIA RPR/DEBRIDEMENT CLOSURE 03/27/2004: PAST SURGICAL HISTORY OF Comment: gastric bypass No date: RPR 1ST INGUN HRNA AGE 3 YRS/> REDUCIBLE Comment: Hernia repair, inguinal No date: TONSILLECTOMY PRIMARY/SECONDARY Comment: Tonsillectomy 03/06/07: UNLISTED LAPS PX HRNAP HERNIORRHAPHY HERNIOTOMY Current Outpatient Medications Medication Sig apixaban (ELIQUIS) 5 mg tab(s) Take 5 mg by mouth two times a day. nystatin (NYSTOP) powder Apply 1 application to affected area two times a day. PARoxetine (PAXIL) 40 mg tablet Take 1 tablet by mouth once daily. buPROPion SR (WELLBUTRIN SR) 150 mg 12 hr tablet Take 2 tablets PO in the AM and 1 tablet PO in the PM ergocalciferol 50,000 unit capsule (VITAMIN D2, DRISDOL) Take 1 capsule by mouth one time a week. blood sugar diagnostic (BLOOD GLUCOSE TEST) test strip Test blood sugar(s) 1 times daily. Dx: Other DM Code hypoglycemia e16.2 Insulin: No famotidine (PEPCID) 20 mg tablet Take 1 tablet by mouth two times a day. gabapentin (NEURONTIN) 300 mg capsule Take 1 capsule by mouth three times a day for 90 days. gabapentin (NEURONTIN) 100 mg capsule Take 1-2 capsules by mouth three times a day for 30 days. (Add to 300 mg capsule three times a day) ketoconazole (NIZORAL) 2 % shampoo Apply to affected area once daily as needed. ketoconazole (NIZORAL) 2 % cream APPLY TO THE AFFECTED AREA(S) at 600am and 1000pm venlafaxine ER (EFFEXOR XR) 37.5 mg 24 hr capsule Take 1 capsule by mouth once daily. carbamide peroxide (DEBROX) 6.5 % otic solution Use 5 Drops in the right ear once daily. MEDICATION, NON-DATABASE Stair lift polyethylene glycol 3350 17 gram packet Take 1 Packet by mouth once daily. Dissolve dose in 4 - 8 ounces of liquid and take as directed. senna-docusate (SENNA-S) 8.6-50 mg per tablet Take 1 tablet by mouth twice daily. (Patient not taking: Reported on 12/01/2023) montelukast (SINGULAIR) 10 mg tablet Take 1 tablet by mouth daily at bedtime. For allergies IFEREX 150 150 mg iron capsule TAKE 1 TABLET BY MOUTH EVERY DAY WITH MEALS (Patient not taking: Reported on 12/01/2023) ofloxacin (FLOXIN) 0.3 % otic solution Use 5 Drops in both ears twice daily. potassium chloride ER (K-DUR, KLOR-CON) 20 mEq tablet Take 20 mEq by mouth twice daily with meals. acetaminophen (TYLENOL 8 HOUR ORAL) Take 1,000 mg by mouth three times daily. pqjpafv-clkhqubba-ywtawbd D3 500 mg(1,250mg) -200 unit per tablet TWICE DAILY WITH MEALS carvedilol (COREG) 12.5 mg tablet TAKE 1 TABLET BY MOUTH TWICE DAILY. must administer with a meal/food. (Patient not taking: Reported on 12/01/2023) furosemide (LASIX) 40 mg tablet Take 40 mg by mouth once daily. VITAMIN B COMPLEX ORAL Take by mouth. COMPOUNDED PRESCRIPTION Jobst stocking knee high with zipper 20-30 mmHg Dx:R60.0, S72.002A Calcium Citrate-Vitamin D3 500 mg calcium -400 unit Chew Take 1 Each by mouth daily with food. (Patient not taking: Reported on 12/22/2023) albuterol 90 mcg/Actuation INHALATION Aero Inhale 2 Puffs as instructed four times daily. USE DIRECTED No current facility-administered medications for this visit. ALLERGIES Allergen Reactions Maxidex [Dexamethas* Intolerance Nsaids (Non-Steroid* Intolerance not to take due to gastric bipass Boniva [Ibandronate] GI Upset Pain- hx gastric bypass. Intolerant to past biphosphonates. Sister with allergic response to reclast. Doxepin Intolerance AM hangover Social History Tobacc (more content not included)... [facility] 03-21-2024 History of Presen t illness Narrative CC: Tasneem Rizzo is a 73 year old female who presents to the office for follow up HPI: Overall she feels she is doing well right now She is back at home She recently had a trip and a fall and was seen at [facility] for evaluation Mood, feels she is overall managing well. She is recently a . in November. She is coping okay. She is thankful to be the caregiver to her disabled grandson and this gives her purpose and hope and she enjoys taking care of him routinely. Hypothyroidism. Hx of, needing labs rechecked Severe spinal arthritis and osteoporosis. Knows need for more consistently exercise. Has fatigue symptoms PAST MEDICAL HISTORY No date: Chronic obstructive pulmonary disease (COPD) (HCC) No date: Degeneration of intervertebral disc, site unspecified No date: Depressive disorder, not elsewhere classified No date: Esophageal reflux No date: Hypothyroidism No date: Obstructive sleep apnea No date: Osteoporosis, unspecified No date: Other affections of shoulder region, not elsewhere classified No date: Right elbow pain PAST SURGICAL HISTORY No date: ARTHROSCOPY KNEE DIAGNOSTIC W/WO SYNOVIAL BX SPX Comment: Arthroscopy, knee No date: DELIVERY ONLY Comment: , low cervical No date: CHOLECYSTECTOMY Comment: Cholecystectomy 03/06/07: IMPLANT MESH OPN HERNIA RPR/DEBRIDEMENT CLOSURE 03/27/2004: PAST SURGICAL HISTORY OF Comment: gastric bypass No date: RPR 1ST INGUN HRNA AGE 3 YRS/> REDUCIBLE Comment: Hernia repair, inguinal No date: TONSILLECTOMY PRIMARY/SECONDARY <AGE 10 Comment: Tonsillectomy 03/06/07: UNLISTED LAPS PX HRNAP HERNIORRHAPHY HERNIOTOMY Current Outpatient Medications Medication Sig apixaban (ELIQUIS) 5 mg tab(s) Take 5 mg by mouth two times a day. nystatin (NYSTOP) powder Apply 1 application to affected area two times a day. PARoxetine (PAXIL) 40 mg tablet Take 1 tablet by mouth once daily. buPROPion SR (WELLBUTRIN SR) 150 mg 12 hr tablet Take 2 tablets PO in the AM and 1 tablet PO in the PM ergocalciferol 50,000 unit capsule (VITAMIN D2, DRISDOL) Take 1 capsule by mouth one time a week. blood sugar diagnostic (BLOOD GLUCOSE TEST) test strip Test blood sugar(s) 1 times daily. Dx: Other DM Code hypoglycemia e16.2 Insulin: No famotidine (PEPCID) 20 mg tablet Take 1 tablet by mouth two times a day. gabapentin (NEURONTIN) 300 mg capsule Take 1 capsule by mouth three times a day for 90 days. gabapentin (NEURONTIN) 100 mg capsule Take 1-2 capsules by mouth three times a day for 30 days. (Add to 300 mg capsule three times a day) ketoconazole (NIZORAL) 2 % shampoo Apply to affected area once daily as needed. ketoconazole (NIZORAL) 2 % cream APPLY TO THE AFFECTED AREA(S) at 600am and 1000pm venlafaxine ER (EFFEXOR XR) 37.5 mg 24 hr capsule Take 1 capsule by mouth once daily. carbamide peroxide (DEBROX) 6.5 % otic solution Use 5 Drops in the right ear once daily. MEDICATION, NON-DATABASE Stair lift polyethylene glycol 3350 17 gram packet Take 1 Packet by mouth once daily. Dissolve dose in 4 - 8 ounces of liquid and take as directed. senna-docusate (SENNA-S) 8.6-50 mg per tablet Take 1 tablet by mouth twice daily. (Patient not taking: Reported on 12/01/2023) montelukast (SINGULAIR) 10 mg tablet Take 1 tablet by mouth daily at bedtime. For allergies IFEREX 150 150 mg iron capsule TAKE 1 TABLET BY MOUTH EVERY DAY WITH MEALS (Patient not taking: Reported on 12/01/2023) ofloxacin (FLOXIN) 0.3 % otic solution Use 5 Drops in both ears twice daily. potassium chloride ER (K-DUR, KLOR-CON) 20 mEq tablet Take 20 mEq by mouth twice daily with meals. acetaminophen (TYLENOL 8 HOUR ORAL) Take 1,000 mg by mouth three times daily. mnhclbe-dkogxrvrx-krtmeya D3 500 mg(1,250mg) -200 unit per tablet TWICE DAILY WITH MEALS carvedilol (COREG) 12.5 mg tablet TAKE 1 TABLET BY MOUTH TWICE DAILY. must administer with a meal/food. (Patient not taking: Reported on 12/01/2023) furosemide (LASIX) 40 mg tablet Take 40 mg by mouth once daily. VITAMIN B COMPLEX ORAL Take by mouth. COMPOUNDED PRESCRIPTION Jobst stocking knee high with zipper 20-30 mmHg Dx:R60.0, S72.002A Calcium Citrate-Vitamin D3 500 mg calcium -400 unit Chew Take 1 Each by mouth daily with food. (Patient not taking: Reported on 12/22/2023) albuterol 90 mcg/Actuation INHALATION Aero Inhale 2 Puffs as instructed four times daily. USE DIRECTED No current facility-administered medications for this visit. ALLERGIES Allergen Reactions Maxidex [Dexamethas* Intolerance Nsaids (Non-Steroid* Intolerance not to take due to gastric bipass Boniva [Ibandronate] GI Upset Pain- hx gastric bypass. Intolerant to past biphosphonates. Sister with allergic response to reclast. Doxepin Intolerance AM hangover Social History Tobacco Use Smoking status: Former Current packs/day: 0.00 Types: Cigarettes Quit date: 04/27/2015 Years since quittin.9 Smokeless tobacco: Never Substance Use Topics Alcohol use: No Drug use: No ROS: See HPI PE: BP 116/60 Pulse 88 Temp (Src) 97 (Right Tympanic) Resp 24 Wt 173 lb 8 oz (78.7kg) Gen: A&OX3, NAD, non-toxic appearing HEENT: PERRLA, EOMs intact b/l, nares without drainage, pharynx without erythema, exudate, lesions, or drainage. Uvula midline. Neck: No LAD, no thyromegaly, no meningismus. CV: RRR, no murmur Lungs: CTA b/l, no wheezing Skin: No rashes, lesions, or wounds on exposed skin. Appears fatigued No edema, normal pulses Arthritis many joints peripheral and spine with thoracic kyphosis and muscle weakness of extremities Gait disorder ASSESSMENT/PLAN: 1. Hypercalcemia - ICD9: 275.42, ICD10: E83.52 (primary diagnosis) Labs as ordered Unsure of cause. - COMPREHENSIVE METABOLIC PANEL - COMPLETE BLOOD COUNT AND DIFFERENTIAL - PTH INTACT 2. Hot flashes due to menopause - ICD9: 627.2, ICD10: N95.1 rx refilled, stable symptoms - VENLAFAXINE ER 37.5 MG CAPSULE,EXTENDED RELEASE 24 HR 3. Bipolar 2 disorder, major depressive episode (HCC) - ICD9: 296.89, ICD10: F31.81 Mood is stable rx refilled - VENLAFAXINE ER 37.5 MG CAPSULE,EXTENDED RELEASE 24 HR 4. Fatigue, unspecified type - ICD9: 780.79, ICD10: R53.83 Recheck labs as ordered. - THYROID STIMULATING HORMONE - MAGNESIUM - VITAMIN D 25 HYDROXY - VITAMIN B12 5. Vitamin D deficiency - ICD9: 268.9, ICD10: E55.9 Recheck labs as ordered. - VITAMIN D 25 HYDROXY 6. Hypoalbuminemia - ICD9: 273.8, ICD10: E88.09 Recheck labs - COMPREHENSIVE METABOLIC PANEL - COMPLETE BLOOD COUNT AND DIFFERENTIAL - PREALBUMIN 7. Diffuse myofascial pain syndrome - ICD9: 729.1, ICD10: M79.18 Stable, chronic 8. Hypothyroidism, acquired - ICD9: 244.9, ICD10: E03.9 - Instructed patient on importance of taking on an empty stomach either first thing in the morning or at bedtime. - check TSH today - THYROID STIMULATING HORMONE Kei Pineda DO Return if no improvement. Follow up with Kei Pineda DO. To ER if develops chest pain, shortness of breath Discussed risks, benefits, alternatives, and potential side effects of medications. Patient/Guardian expressed understanding and agreed with the plan. See patient instructions. Kei Pineda DO [address] [place] [address] documented in this encounter [facility] 03-21-2024 Note HNO ID: [id number] Author: BOLA DOBSON MD Service: ? Author Type: Physician Type: Progress Notes Filed: 03/25/2024 07:20 Note Text: Patient presents with: Right Elbow - Follow Up, Pain HISTORY OF PRESENT ILLNESS Tasneem Rizzo presents to the office for follow up of right total elbow arthroplasty. The patient is nearly 1 year out from the injury. She is overall doing well in her opinion. She is using the arm for most activities but does note some difficulty at times doing her hair. No new complaints on today's visit. Location: Right elbow Severity: 0-1 on a scale of 0-10 Duration of symptoms: Approximately 1 year Treatments tried include total elbow arthroplasty for fracture Symptoms have Improved REVIEW OF SYSTEMS Cardiovascular ROS:No history of chest pain, palpitation, orthopnea, cyanosis, pedal edema Neurologic ROS: Numbness and Tingling: No PAST MEDICAL HISTORY Past medical, surgical, family, and social histories have been reviewed and updated with the patient today and are located elsewhere in the medical record. Diabetes:No ALLERGIES ALLERGIES Allergen Reactions Maxidex [Dexamethas* Intolerance Nsaids (Non-Steroid* Intolerance not to take due to gastric bipass Boniva [Ibandronate] GI Upset Pain- hx gastric bypass. Intolerant to past biphosphonates. Sister with allergic response to reclast. Doxepin Intolerance AM hangover PHYSICAL EXAMINATION Temp 36.8 ?C (98.2 ?F) Ht 149.9 cm (4' 11 ) Wt 80.3 kg (177 lb) BMI 35.75 kg/m? Body mass index is 35.75 kg/m?. General Appearance Well appearing, alert, in no acute distress, well-hydrated, well nourished. Alert and oriented times: 3 Normal affect times: 3 Appears stated age and well nourished Gait and station:normal Right Upper Extremity Exam: Inspection shows no significant residual swelling Surgical incision is well-healed Tenderness to palpation: None along the incision or proximal and distal aspect of the prosthesis ROM: Elbow motion is approximately 20 to 130 degrees. Near full pronation/supination Wrist and hand motion within normal limits. Full composite fist Sensation intact median, radial, ulnar nerve distribution 2+ radial pulse REVIEW OF STUDIES X-rays 03/21/24 3 views of the right elbow demonstrate stable position of the elbow arthroplasty. The cement mantle appears intact without lucency on either the ulna nor the humerus. No other acute process noted. ASSESSMENT AND PLAN ASSESSMENT/PLAN: 1. Status post right elbow joint replacement - ICD9: V43.62, ICD10: Z96.621 - XR ELBOW SPECIAL VIEWS AP/LAT/OTHER RIGHT I reviewed the imaging with the patient. The patient has regained excellent motion, and is very happy with the results at 1 year. I recommended that we follow-up in another year to ensure stability and obtain x-rays. All of her questions were answered to her satisfaction. Bola Dobson MD Patient educated on lifetime lifting restrictions Patient instructed to call the office with questions or concerns. [facility] 03-21-2024 History of Presen t illness Narrative Patient presents with: Right Elbow - Follow Up, Pain HISTORY OF PRESENT ILLNESS Tasneem Rizzo presents to the office for follow up of right total elbow arthroplasty. The patient is nearly 1 year out from the injury. She is overall doing well in her opinion. She is using the arm for most activities but does note some difficulty at times doing her hair. No new complaints on today's visit. Location: Right elbow Severity: 0-1 on a scale of 0-10 Duration of symptoms: Approximately 1 year Treatments tried include total elbow arthroplasty for fracture Symptoms have Improved REVIEW OF SYSTEMS Cardiovascular ROS:No history of chest pain, palpitation, orthopnea, cyanosis, pedal edema Neurologic ROS: Numbness and Tingling: No PAST MEDICAL HISTORY Past medical, surgical, family, and social histories have been reviewed and updated with the patient today and are located elsewhere in the medical record. Diabetes:No ALLERGIES ALLERGIES Allergen Reactions Maxidex [Dexamethas* Intolerance Nsaids (Non-Steroid* Intolerance not to take due to gastric bipass Boniva [Ibandronate] GI Upset Pain- hx gastric bypass. Intolerant to past biphosphonates. Sister with allergic response to reclast. Doxepin Intolerance AM hangover PHYSICAL EXAMINATION Temp 36.8 C (98.2 F) Ht 149.9 cm (4' 11 ) Wt 80.3 kg (177 lb) BMI 35.75 kg/m Body mass index is 35.75 kg/m . General Appearance Well appearing, alert, in no acute distress, well-hydrated, well nourished. Alert and oriented times: 3 Normal affect times: 3 Appears stated age and well nourished Gait and station:normal Right Upper Extremity Exam: Inspection shows no significant residual swelling Surgical incision is well-healed Tenderness to palpation: None along the incision or proximal and distal aspect of the prosthesis ROM: Elbow motion is approximately 20 to 130 degrees. Near full pronation/supination Wrist and hand motion within normal limits. Full composite fist Sensation intact median, radial, ulnar nerve distribution 2+ radial pulse REVIEW OF STUDIES X-rays 03/21/24 3 views of the right elbow demonstrate stable position of the elbow arthroplasty. The cement mantle appears intact without lucency on either the ulna nor the humerus. No other acute process noted. ASSESSMENT AND PLAN ASSESSMENT/PLAN: 1. Status post right elbow joint replacement - ICD9: V43.62, ICD10: Z96.621 - XR ELBOW SPECIAL VIEWS AP/LAT/OTHER RIGHT I reviewed the imaging with the patient. The patient has regained excellent motion, and is very happy with the results at 1 year. I recommended that we follow-up in another year to ensure stability and obtain x-rays. All of her questions were answered to her satisfaction. Bola Dobson MD Patient educated on lifetime lifting restrictions Patient instructed to call the office with questions or concerns. REVIEW OF SYSTEMS: GENERAL: Well developed, well nourished. No acute distress PAIN: Negative for pain, history of chronic pain or current treatment for chronic pain conditions CARDIOVASCULAR: Negative for chest pain, leg swelling and palpations. MSK: Negative for joint swelling SKIN: Negative for lesions, rash, itching, metal sensitivity NEURO: Numbness/tingling of extremties ENDOCRINE: Negative for diabetic associated symptoms HEMATOLOGY: Negative for excessive bleeding, clots, bleeding disorders. documented in this encounter [facility] 03-21-2024 Note HNO ID: [id number] Author: OLLIE STARKS Tech Service: ? Author Type: Nanotechnology Engineering Technologist Type: Progress Notes Filed: 03/25/2024 07:20 Note Text: REVIEW OF SYSTEMS: GENERAL: Well developed, well nourished. No acute distress PAIN: Negative for pain, history of chronic pain or current treatment for chronic pain conditions CARDIOVASCULAR: Negative for chest pain, leg swelling and palpations. MSK: Negative for joint swelling SKIN: Negative for lesions, rash, itching, metal sensitivity NEURO: Numbness/tingling of extremties ENDOCRINE: Negative for diabetic associated symptoms HEMATOLOGY: Negative for excessive bleeding, clots, bleeding disorders. [facility] 02-20-2024 Telephone encounter Note Pt called and is notified of providers results and instructions. Pt voices understanding. Transferred to scheduled to set up appt with Neurology. Jayde Estrada RN [facility] 02-20-2024 Miscellaneous Notes Pt called and is notified of providers results and instructions. Pt voices understanding. Transferred to scheduled to set up appt with Neurology. Jayde Estrada RN I haven't seen patient. She was seen by Phani. Would first recommend evaluation by Neurologist Kei Pineda DO Patient said Dr. Pineda recently found she has slow growing Alzheimer's . Patient said she offered her medication if needed. Patient said she is shaky and thinks she should start the medication. She did not know the name of the medication. Uses [facility] in [place]. Would like a call back at [phone] when rx has been sent. documented in this encounter [facility] 02-20-2024 Telephone encounter Note I haven't seen patient. She was seen by Phani. Would first recommend evaluation by Neurologist Kei Pineda DO [facility] 02-13-2024 Telephone encounter Note Patient said Dr. Pineda recently found she has slow growing Alzheimer's . Patient said she offered her medication if needed. Patient said she is shaky and thinks she should start the medication. She did not know the name of the medication. Uses [facility] in [place]. Would like a call back at [phone] when rx has been sent. [facility] 12-29-2023 Telephone encounter Note Have attempted to reach pt multiple times, with no call back. Letter mailed to pt notifying her of results below. If questions to contact the office. Tierney Benitez MA [facility] 12-29-2023 Miscellaneous Notes Have attempted to reach pt multiple times, with no call back. Letter mailed to pt notifying her of results below. If questions to contact the office. Tierney Benitez MA Attempted to reach patient; no answer and unable to leave VM. Nolvia Guan MA Tried to reach pt, line just rings. Unable to leave message or call back number. Anabelle Baker MA Please let her know we received her labs. Overall they look good. Her hemoglobin has improved from previously. It is just slightly low, but is at her baseline, so no concerns. No other concerns. Gerardo Milligan APRN.RAY documented in this encounter [facility] 12-28-2023 Telephone encounter Note Attempted to reach patient; no answer and unable to leave VM. Nolvia Guan MA [facility] 12-27-2023 Telephone encounter Note Tried to reach pt, line just rings. Unable to leave message or call back number. Anabelle Baker MA [facility] 12-27-2023 Telephone encounter Note Please let her know we received her labs. Overall they look good. Her hemoglobin has improved from previously. It is just slightly low, but is at her baseline, so no concerns. No other concerns. Gerardo Milligan APRN.RAY T [facility] 12-22-2023 Note HNO ID: [id number] Author: LIZZIE MEIER APRN.RAY Service: ? Author Type: Nurse Practitioner Type: Progress Notes Filed: 12/22/2023 10:35 Note Text: Chief Complaint Patient presents with: Discussion: On depression meds and memory issues HPI Tasneem Rizzo is a 73 year old female who presents here today for Above Complaints. Tasneem is an established patient of Dr. Pineda, and myself. Concerns today.. Wants to discuss recent MRI brain results. Anxiety/depression -- Feels depression is worsening again. She stopped taking wellbutrin months ago -- no real reason just thought it was too expensive for the little benefit it had. Pt is still taking paxil 40 mg daily. Weight management -- Asking about weight loss medication. Was on adipex in 2021 and asking about restarting this. No other concerns or complaints. Past medical history, appointments, medications, allergies reviewed. Previous Medical History PAST MEDICAL HISTORY Diagnosis Date Chronic obstructive pulmonary disease (COPD) (HCC) Degeneration of intervertebral disc, site unspecified Depressive disorder, not elsewhere classified Esophageal reflux Hypothyroidism Obstructive sleep apnea Osteoporosis, unspecified Other affections of shoulder region, not elsewhere classified Right elbow pain Previous Surgical History PAST SURGICAL HISTORY Procedure Laterality Date ARTHROSCOPY KNEE DIAGNOSTIC W/WO SYNOVIAL BX SPX Arthroscopy, knee DELIVERY ONLY , low cervical CHOLECYSTECTOMY Cholecystectomy IMPLANT MESH OPN HERNIA RPR/DEBRIDEMENT CLOSURE 03/06/07 PAST SURGICAL HISTORY OF 03/27/2004 gastric bypass RPR 1ST INGUN HRNA AGE 3 YRS/> REDUCIBLE Hernia repair, inguinal TONSILLECTOMY PRIMARY/SECONDARY Tonsillectomy UNLISTED LAPS PX HRNAP HERNIORRHAPHY HERNIOTOMY 03/06/07 Family History FAMILY HISTORY Problem Relation Age of Onset Breast Cancer Mother cva other (cva [Other]) Father Diabetes Father Borderline Diabetes Maternal Grandmother Patient Allergies ALLERGIES Allergen Reactions Maxidex [Dexamethas* Intolerance Nsaids (Non-Steroid* Intolerance not to take due to gastric bipass Boniva [Ibandronate] GI Upset Pain- hx gastric bypass. Intolerant to past biphosphonates. Sister with allergic response to reclast. Doxepin Intolerance AM hangover Current Medications Current Outpatient Medications on File Prior to Visit Medication Sig clotrimazole (LOTRIMIN) 1 % cream Apply to affected area two times a day. ergocalciferol 50,000 unit capsule (VITAMIN D2, DRISDOL) Take 1 capsule by mouth one time a week. blood sugar diagnostic (BLOOD GLUCOSE TEST) test strip Test blood sugar(s) 1 times daily. Dx: Other DM Code hypoglycemia e16.2 Insulin: No famotidine (PEPCID) 20 mg tablet Take 1 tablet by mouth two times a day. ondansetron orally disintegrating (ZOFRAN ODT) 4 mg disintegrating tablet Take 1 tablet by mouth every 6 hours as needed for nausea/vomiting. gabapentin (NEURONTIN) 300 mg capsule Take 1 capsule by mouth three times a day for 90 days. gabapentin (NEURONTIN) 100 mg capsule Take 1-2 capsules by mouth three times a day for 30 days. (Add to 300 mg capsule three times a day) ketoconazole (NIZORAL) 2 % shampoo Apply to affected area once daily as needed. ketoconazole (NIZORAL) 2 % cream APPLY TO THE AFFECTED AREA(S) at 600am and 1000pm venlafaxine ER (EFFEXOR XR) 37.5 mg 24 hr capsule Take 1 capsule by mouth once daily. carbamide peroxide (DEBROX) 6.5 % otic solution Use 5 Drops in the right ear once daily. MEDICATION, NON-DATABASE Stair lift polyethylene glycol 3350 17 gram packet Take 1 Packet by mouth once daily. Dissolve dose in 4 - 8 ounces of liquid and take as directed. montelukast (SINGULAIR) 10 mg tablet Take 1 tablet by mouth daily at bedtime. For allergies ofloxacin (FLOXIN) 0.3 % otic solution Use 5 Drops in both ears twice daily. potassium chloride ER (K-DUR, KLOR-CON) 20 mEq tablet Take 20 mEq by mouth twice daily with meals. acetaminophen (TYLENOL 8 HOUR ORAL) Take 1,000 mg by mouth three times daily. nqxngej-iuecryvub-wmksezl D3 500 mg(1,250mg) -200 unit per tablet TWICE DAILY WITH MEALS furosemide (LASIX) 40 mg tablet Take 40 mg by mouth once daily. VITAMIN B COMPLEX ORAL Take by mouth. albuterol 90 mcg/Actuation INHALATION Aero Inhale 2 Puffs as instructed four times daily. USE DIRECTED senna-docusate (SENNA-S) 8.6-50 mg per tablet Take 1 tablet by mouth twice daily. (Patient not taking: Reported on 12/01/2023) IFEREX 150 150 mg iron capsule TAKE 1 TABLET BY MOUTH EVERY DAY WITH MEALS (Patient not taking: Reported on 12/01/2023) carvedilol (COREG) 12.5 mg tablet TAKE 1 TABLET BY MOUTH TWICE DAILY. must administer with a meal/food. (Patient not taking: Reported on 12/01/2023) COMPOUNDED PRESCRIPTION Jobst stocking knee high with zipper 20-30 mmHg Dx:R60.0, S72.002A (Patient not taking: Reported on 12/22/19 (more content not included)... [facility] 12-22-2023 History of Presen t illness Narrative Chief Complaint Patient presents with: Discussion: On depression meds and memory issues HPI Tasneem Rizzo is a 73 year old female who presents here today for Above Complaints. Tasneem is an established patient of Dr. Pineda, and myself. Concerns today.. Wants to discuss recent MRI brain results. Anxiety/depression -- Feels depression is worsening again. She stopped taking wellbutrin months ago -- no real reason just thought it was too expensive for the little benefit it had. Pt is still taking paxil 40 mg daily. Weight management -- Asking about weight loss medication. Was on adipex in 2021 and asking about restarting this. No other concerns or complaints. Past medical history, appointments, medications, allergies reviewed. Previous Medical History PAST MEDICAL HISTORY Diagnosis Date Chronic obstructive pulmonary disease (COPD) (HCC) Degeneration of intervertebral disc, site unspecified Depressive disorder, not elsewhere classified Esophageal reflux Hypothyroidism Obstructive sleep apnea Osteoporosis, unspecified Other affections of shoulder region, not elsewhere classified Right elbow pain Previous Surgical History PAST SURGICAL HISTORY Procedure Laterality Date ARTHROSCOPY KNEE DIAGNOSTIC W/WO SYNOVIAL BX SPX Arthroscopy, knee DELIVERY ONLY , low cervical CHOLECYSTECTOMY Cholecystectomy IMPLANT MESH OPN HERNIA RPR/DEBRIDEMENT CLOSURE 03/06/07 PAST SURGICAL HISTORY OF 03/27/2004 gastric bypass RPR 1ST INGUN HRNA AGE 3 YRS/> REDUCIBLE Hernia repair, inguinal TONSILLECTOMY PRIMARY/SECONDARY <AGE 10 Tonsillectomy UNLISTED LAPS PX HRNAP HERNIORRHAPHY HERNIOTOMY 03/06/07 Family History FAMILY HISTORY Problem Relation Age of Onset Breast Cancer Mother cva other (cva [Other]) Father Diabetes Father Borderline Diabetes Maternal Grandmother Patient Allergies ALLERGIES Allergen Reactions Maxidex [Dexamethas* Intolerance Nsaids (Non-Steroid* Intolerance not to take due to gastric bipass Boniva [Ibandronate] GI Upset Pain- hx gastric bypass. Intolerant to past biphosphonates. Sister with allergic response to reclast. Doxepin Intolerance AM hangover Current Medications Current Outpatient Medications on File Prior to Visit Medication Sig clotrimazole (LOTRIMIN) 1 % cream Apply to affected area two times a day. ergocalciferol 50,000 unit capsule (VITAMIN D2, DRISDOL) Take 1 capsule by mouth one time a week. blood sugar diagnostic (BLOOD GLUCOSE TEST) test strip Test blood sugar(s) 1 times daily. Dx: Other DM Code hypoglycemia e16.2 Insulin: No famotidine (PEPCID) 20 mg tablet Take 1 tablet by mouth two times a day. ondansetron orally disintegrating (ZOFRAN ODT) 4 mg disintegrating tablet Take 1 tablet by mouth every 6 hours as needed for nausea/vomiting. gabapentin (NEURONTIN) 300 mg capsule Take 1 capsule by mouth three times a day for 90 days. gabapentin (NEURONTIN) 100 mg capsule Take 1-2 capsules by mouth three times a day for 30 days. (Add to 300 mg capsule three times a day) ketoconazole (NIZORAL) 2 % shampoo Apply to affected area once daily as needed. ketoconazole (NIZORAL) 2 % cream APPLY TO THE AFFECTED AREA(S) at 600am and 1000pm venlafaxine ER (EFFEXOR XR) 37.5 mg 24 hr capsule Take 1 capsule by mouth once daily. carbamide peroxide (DEBROX) 6.5 % otic solution Use 5 Drops in the right ear once daily. MEDICATION, NON-DATABASE Stair lift polyethylene glycol 3350 17 gram packet Take 1 Packet by mouth once daily. Dissolve dose in 4 - 8 ounces of liquid and take as directed. montelukast (SINGULAIR) 10 mg tablet Take 1 tablet by mouth daily at bedtime. For allergies ofloxacin (FLOXIN) 0.3 % otic solution Use 5 Drops in both ears twice daily. potassium chloride ER (K-DUR, KLOR-CON) 20 mEq tablet Take 20 mEq by mouth twice daily with meals. acetaminophen (TYLENOL 8 HOUR ORAL) Take 1,000 mg by mouth three times daily. fulbxqw-ptldqapjx-qjnzskg D3 500 mg(1,250mg) -200 unit per tablet TWICE DAILY WITH MEALS furosemide (LASIX) 40 mg tablet Take 40 mg by mouth once daily. VITAMIN B COMPLEX ORAL Take by mouth. albuterol 90 mcg/Actuation INHALATION Aero Inhale 2 Puffs as instructed four times daily. USE DIRECTED senna-docusate (SENNA-S) 8.6-50 mg per tablet Take 1 tablet by mouth twice daily. (Patient not taking: Reported on 12/01/2023) IFEREX 150 150 mg iron capsule TAKE 1 TABLET BY MOUTH EVERY DAY WITH MEALS (Patient not taking: Reported on 12/01/2023) carvedilol (COREG) 12.5 mg tablet TAKE 1 TABLET BY MOUTH TWICE DAILY. must administer with a meal/food. (Patient not taking: Reported on 12/01/2023) COMPOUNDED PRESCRIPTION Jobst stocking knee high with zipper 20-30 mmHg Dx:R60.0, S72.002A (Patient not taking: Reported on 12/22/2023) Calcium Citrate-Vitamin D3 500 mg calcium -400 unit Chew Take 1 Each by mouth daily with food. (Patient not taking: Reported on 12/22/2023) No current facility-administered medications on file prior to visit. Social History Social History Tobacco Use Smoking status: Former Packs/day: .5 Types: Cigarettes Quit date: 04/27/2015 Years since quittin.6 Smokeless tobacco: Never Substance Use Topics Alcohol use: No Drug use: No REVIEW OF SYSTEMS: as above Reviewed relevant PMHx, PSHx, Social Hx, current medications and allergies. Review of Symptoms REVIEW OF SYSTEMS See HPI. EXAM: BP 120/80 (BP Site: Left Arm, BP Position: Sitting, BP Cuff Size: Large Adult) Pulse 64 Resp 14 Wt 81.7 kg (180 lb 3.2 oz) BMI 35.19 kg/m General Appearance: Well appearing, alert, in no acute distress, well-hydrated, well nourished.. Skin: Skin color, texture, turgor normal, no suspicious rashes or lesions. Head: Normocephalic, no masses, lesions, tenderness or abnormalities. Lungs: Lungs clear to auscultation. No wheezing, rhonchi, rales.. Heart: RRR without murmur, gallop, or rubs. No ectopy. Health Maintenance List Spirometry Never done Alpha-1 Antitrypsin Deficiency Screening Never done Bone Density Screening due on 06/02/2018 RSV Vaccine(1 - 1-dose 60+ series) due on 11/30/2024 Shingrix Vaccine(1 of 2) due on 11/30/2024 Covid-19 Vaccine( season) due on 11/30/2024 Influenza Vaccine(Season Ended) due on 03/11/2024 Annual PCP Team Chronic Disease Visit due on 12/21/2024 Colorectal Cancer Screening due on 03/22/2025 Diabetes Screening due on 03/26/2026 DTaP,Tdap,Td Vaccine(3 - Td or Tdap) due on 08/04/2026 Lipid Screening due on 11/09/2026 Hepatitis C Screening Completed Pneumococcal Vaccine: 65+ Completed Mammogram Screening Discontinued Advance Directive Discussion Discontinued ASSESSMENT/PLAN: 1. Bipolar 2 disorder, major depressive episode (HCC) - ICD9: 296.89, ICD10: F31.81 (primary diagnosis) Continue paxil daily. Restart wellbutrin BID. Discussed how stopping this may be contributing to sudden worsening depression. Also discussed how wellbutrin will help aide in weight loss journey. RTO if symptoms do not improve. - PAROXETINE 40 MG TABLET - BUPROPION HCL SR 150 MG TABLET,12 HR SUSTAINED-RELEASE 2. Cognitive impairment, mild, so stated - ICD9: 331.83, ICD10: G31.84 Discussed MRI brain results. Will continue to monitor routine labs such as blood sugar and lipids for microvascular risk. If any worsen symptoms, would recommend brain health neurology consult 3. Class 2 obesity with body mass index (BMI) of 35.0 to 35.9 in adult, unspecified obesity type, unspecified whether serious comorbidity present - ICD9: 278.00, V85.35, ICD10: E66.9, Z68.35 Restart wellbutrin. Will discuss with Dr. Pineda about Adipex. Given age and health status, I do not feel comfortable starting patient on Adipex without Dr. Pineda approval. RTO in 3 months, sooner if needed. Prescription instructions reviewed with patient as applicable. Potential red flag symptoms discussed with the patient. Reviewed appropriate action plan to take if red flag symptoms occur. Patient agreeable to treatment plan. Lizzie Ramey APRN.BULKING MACHINE OPERATOR [address] [place] [address] documented in this encounter [facility] 12-21-2023 Telephone encounter Note Called and spoke with pt. Pt states she does not want to go out of town to see another provider or have further testing done. Pt has an appt with Lizzie Meier tomorrow and will discuss then. [facility] 12-21-2023 Miscellaneous Notes Called and spoke with pt. Pt states she does not want to go out of town to see another provider or have further testing done. Pt has an appt with Lizzie Meier tomorrow and will discuss then. Attempted to contact patient. Line rings busy. No VM. Will need to try again. Nicolle Dumont MA Attempted to call pt just rings and rings. Attempted to inform no VM Rx sent. I can consult pt to brain health and [facility] for appointment. Consult placed. No other imagining needs done from my standpoint. Thank you, Lizzie Meier APRN.BULKING MACHINE OPERATOR 1) Okay with pt and please send to Pharmacy. Pharmacy updated. 2). Pt was given results of MRI. Pt would dolly to know what the chronic changes are and asking for further testing. Pt reports things are still not right. Pt reports no short term memory and this is not getting better but worse. Please advise pt. Tonia Chavez LPN Attempted to contact pt x2. Other line rings busy. Please try again. Nicolle Dumont MA T/c phone rings and rings no machine. Will need to try back. Please let patient know this and see if she is OK with clotrimazole cream. Please pend if so. Thank you, Lizzie Meier APRN.BULKING MACHINE OPERATOR Denied patient must try preferred drug clotrimazole cream Rosalba Lizarraga MA' Prior Authorization has been completed online at [employer] for nystop powder, will await response. [id number] Please keep encounter open until final decision has been received and documented from insurance company. Rosalba Lizarraga MA documented in this encounter [facility] 12-20-2023 Telephone encounter Note Attempted to contact patient. Line rings busy. No VM. Will need to try again. Nicolle Dumont MA [facility] 12-19-2023 Telephone encounter Note Attempted to call pt just rings and rings. [facility] 12-19-2023 Telephone encounter Note Attempted to inform no VM [facility] 12-19-2023 Telephone encounter Note Rx sent. I can consult pt to brain health and [facility] for appointment. Consult placed. No other imagining needs done from my standpoint. Thank you, Lizzie Meier APRN.BULKING MACHINE OPERATOR [facility] 12-19-2023 Telephone encounter Note 1) Okay with pt and please send to Pharmacy. Pharmacy updated. 2). Pt was given results of MRI. Pt would dolly to know what the chronic changes are and asking for further testing. Pt reports things are still not right. Pt reports no short term memory and this is not getting better but worse. Please advise pt. Tonia Chavez LPN [facility] 12-16-2023 Telephone encounter Note Spoke with pt gave information provided . Pt voices understanding. [facility] 12-16-2023 Miscellaneous Notes Spoke with pt gave information provided . Pt voices understanding. Attempted to contact patient with no answer. Other line rings busy. Will need to try again. Nicolle Dumont MA Please let Tasneem know that her brain MRI looks good. She has only some normal chronic changes, no concerns. Gerardo Milligan APRN.BULKING MACHINE OPERATOR documented in this encounter [facility] 12-16-2023 Telephone encounter Note Attempted to contact pt x2. Other line rings busy. Please try again. Nicolle Dumont MA [facility] 12-15-2023 Telephone encounter Note Attempted to contact patient with no answer. Other line rings busy. Will need to try again. Nicolle Dumont MA [facility] 12-15-2023 Telephone encounter Note Please let Tasneem know that her brain MRI looks good. She has only some normal chronic changes, no concerns. Gerardo Milligan APRN.RAY [facility] 12-15-2023 History of Presen t illness Narrative Radiology Service Progress Note PATIENT NAME: Tasneem Rizzo DATE OF SERVICE: December 15, 2023 TIME: 9:30 AM PATIENT IDENTITY VERIFICATION COMPLETED USING TWO (2) IDENTIFIERS: Name and Date of confirmed by patient verbally. FALL SCREENING: Has the patient had 2 falls in the last year or 1 fall with injury or currently using an Ambulatory Assistive Device (Walker, Cane, Wheelchair, Crutches, etc.)? Yes, Patient High Risk for Falls What interventions were put in place to prevent falls during this visit? Instructed Patient to Call for Help if Needed, Offered Assistance with Transfers/Clothing, Instructed Patient to Remain Seated (Not on Exam Table) Until Exam, and Increased Observations by Caregivers PATIENT GENDER DATA: Female. status: : No status: NO. PATIENT RELEVANT IMPLANT DATA REVIEWED: Yes PATIENT PRESENTS WITH AN IMPLANTABLE OR ATTACHED PATIENT SAFETY TECH: No RADIOLOGY DEPARTMENT: MR; Exam(s) Completed: Head: Routine Brain PERIPHERAL IV DATA: Not applicable SIGNED BY: RT Karen(R) December 15, 2023 9:30 AM documented in this encounter [facility] 12-15-2023 Note HNO ID: [id number] Author: CHARO OLSEN RT(Stacey) Service: ? Author Type: Technologist Type: Progress Notes Filed: 12/15/2023 09:31 Note Text: Radiology Service Progress Note PATIENT NAME: Tasneem Rizzo DATE OF SERVICE: December 15, 2023 TIME: 9:30 AM PATIENT IDENTITY VERIFICATION COMPLETED USING TWO (2) IDENTIFIERS: Name and Date of confirmed by patient verbally. FALL SCREENING: Has the patient had 2 falls in the last year or 1 fall with injury or currently using an Ambulatory Assistive Device (Walker, Cane, Wheelchair, Crutches, etc.)? Yes, Patient High Risk for Falls What interventions were put in place to prevent falls during this visit? Instructed Patient to Call for Help if Needed, Offered Assistance with Transfers/Clothing, Instructed Patient to Remain Seated (Not on Exam Table) Until Exam, and Increased Observations by Caregivers PATIENT GENDER DATA: Female. status: : No status: NO. PATIENT RELEVANT IMPLANT DATA REVIEWED: Yes PATIENT PRESENTS WITH AN IMPLANTABLE OR ATTACHED PATIENT SAFETY TECH: No RADIOLOGY DEPARTMENT: MR; Exam(s) Completed: Head: Routine Brain PERIPHERAL IV DATA: Not applicable SIGNED BY: RT Karen(R) December 15, 2023 9:30 AM [facility] 12-14-2023 Telephone encounter Note T/c phone rings and rings no machine. Will need to try back. [facility] 12-14-2023 Telephone encounter Note Please let patient know this and see if she is OK with clotrimazole cream. Please pend if so. Thank you, Lizzie Meier APRN.BULKING MACHINE OPERATOR [facility] 12-13-2023 Telephone encounter Note Denied patient must try preferred drug clotrimazole cream Rosalba Lizarraga MA' [facility] 12-12-2023 Telephone encounter Note Prior Authorization has been completed online at [employer] for nystop powder, will await response. [id number] Please keep encounter open until final decision has been received and documented from insurance company. Rosalba Lizarraga MA [facility] 12-01-2023 Instructions Lizzie Meier APRN.RAY - 12/01/2023 10:31 AM EDT BONE MINERAL DENSITY PATIENT INSTRUCTIONS ========= Bone mineral density testing measures the amount of calcium in certain parts of your bones. This information determines how strong your bones are. The test is used to detect osteoporosis, a disease in which the bone's mineral content and density are low, increasing a person's risk of fractures. The lumbar spine (lower back) and the hip are the skeletal sites usually examined. For the test, remember that: 1. You cannot take this test if you are . 2. Eat a normal diet on the day of the test. 3. Take your medications as you normally would. 4. DO NOT take calcium supplements (such as Tums) for 24 hours before the test. 5. On the day of the test, leave valuables (jewelry or credit cards) at home. 6. The test should be performed prior to oral, rectal or IV contrast studies, or at least 7 days after any of these studies. For the test, you may be asked to wear a hospital gown. You will lie on your back, on a padded table, in a comfortable position. Generally, you can resume your usual activities immediately. documented in this encounter [facility] 12-01-2023 History of Presen t illness Narrative Chief Complaint Patient presents with: follow up meds and headaches HPI Tasneem Rizzo is a 73 year old female who presents here today for Above Complaints. Tasneem is an established patient of Dr. Edwin DO. She is a new patient to me today. Concerns today... Confusion -- Feels over the last 6 months that her short term memory issues have worsened. Feels she is forgetting things and repeating herself constantly. Nephew has also noticed intermittent confusion. Will be driving in the car together and pt will forget where they are going and for what reason. Pt does reports intermittent dull headaches here and there. Pt also reports fall and hit head about 2 months ago but she does feel like memory issues significantly worsened after this. Never had brain imagining after this fall. Needs refill on medications. Needs routine lab work. -- Bone density in 2016 -- shows severe osteoporosis. No current medication regimen. Past medical history, appointments, medications, allergies reviewed. Previous Medical History PAST MEDICAL HISTORY Diagnosis Date Chronic obstructive pulmonary disease (COPD) (HCC) Degeneration of intervertebral disc, site unspecified Depressive disorder, not elsewhere classified Esophageal reflux Hypothyroidism Obstructive sleep apnea Osteoporosis, unspecified Other affections of shoulder region, not elsewhere classified Right elbow pain Previous Surgical History PAST SURGICAL HISTORY Procedure Laterality Date ARTHROSCOPY KNEE DIAGNOSTIC W/WO SYNOVIAL BX SPX Arthroscopy, knee DELIVERY ONLY , low cervical CHOLECYSTECTOMY Cholecystectomy IMPLANT MESH OPN HERNIA RPR/DEBRIDEMENT CLOSURE 03/06/07 PAST SURGICAL HISTORY OF 03/27/2004 gastric bypass RPR 1ST INGUN HRNA AGE 3 YRS/> REDUCIBLE Hernia repair, inguinal TONSILLECTOMY PRIMARY/SECONDARY <AGE 12 Tonsillectomy UNLISTED LAPS PX HRNAP HERNIORRHAPHY HERNIOTOMY 03/06/07 Family History FAMILY HISTORY Problem Relation Age of Onset Breast Cancer Mother cva other (cva [Other]) Father Diabetes Father Borderline Diabetes Maternal Grandmother Patient Allergies ALLERGIES Allergen Reactions Maxidex [Dexamethas* Intolerance Nsaids (Non-Steroid* Intolerance not to take due to gastric bipass Boniva [Ibandronate] GI Upset Pain- hx gastric bypass. Intolerant to past biphosphonates. Sister with allergic response to reclast. Doxepin Intolerance AM hangover Current Medications Current Outpatient Medications on File Prior to Visit Medication Sig gabapentin (NEURONTIN) 300 mg capsule Take 1 capsule by mouth three times a day for 90 days. gabapentin (NEURONTIN) 100 mg capsule Take 1-2 capsules by mouth three times a day for 30 days. (Add to 300 mg capsule three times a day) ketoconazole (NIZORAL) 2 % shampoo Apply to affected area once daily as needed. ketoconazole (NIZORAL) 2 % cream APPLY TO THE AFFECTED AREA(S) at 600am and 1000pm venlafaxine ER (EFFEXOR XR) 37.5 mg 24 hr capsule Take 1 capsule by mouth once daily. carbamide peroxide (DEBROX) 6.5 % otic solution Use 5 Drops in the right ear once daily. MEDICATION, NON-DATABASE Stair lift polyethylene glycol 3350 17 gram packet Take 1 Packet by mouth once daily. Dissolve dose in 4 - 8 ounces of liquid and take as directed. senna-docusate (SENNA-S) 8.6-50 mg per tablet Take 1 tablet by mouth twice daily. PARoxetine (PAXIL) 40 mg tablet Take 1 tablet by mouth once daily. montelukast (SINGULAIR) 10 mg tablet Take 1 tablet by mouth daily at bedtime. For allergies IFEREX 150 150 mg iron capsule TAKE 1 TABLET BY MOUTH EVERY DAY WITH MEALS ergocalciferol 50,000 unit capsule (VITAMIN D2, DRISDOL) Take 1 capsule by mouth one time a week. buPROPion SR (ZYBAN SR; WELLBUTRIN SR) 150 mg 12 hr tablet Take 2 tablets PO in the AM and 1 tablet PO in the PM ondansetron orally disintegrating (ZOFRAN ODT) 4 mg disintegrating tablet Take 1 tablet by mouth every 8 hours as needed for nausea/vomiting. blood sugar diagnostic (BLOOD GLUCOSE TEST) test strip Test blood sugar(s) 1 times daily. Dx: Other DM Code hypoglycemia e16.2 Insulin: No famotidine (PEPCID) 20 mg tablet Take 1 tablet by mouth twice daily. ofloxacin (FLOXIN) 0.3 % otic solution Use 5 Drops in both ears twice daily. potassium chloride ER (K-DUR, KLOR-CON) 20 mEq tablet Take 20 mEq by mouth twice daily with meals. acetaminophen (TYLENOL 8 HOUR ORAL) Take 1,000 mg by mouth three times daily. ubzyodp-qjjhcfjpg-gvpehrl D3 500 mg(1,250mg) -200 unit per tablet TWICE DAILY WITH MEALS carvedilol (COREG) 12.5 mg tablet TAKE 1 TABLET BY MOUTH TWICE DAILY. must administer with a meal/food. furosemide (LASIX) 40 mg tablet Take 40 mg by mouth once daily. VITAMIN B COMPLEX ORAL Take by mouth. nystatin (NYSTOP) powder Apply 1 application to affected area twice daily. COMPOUNDED PRESCRIPTION Jobst stocking knee high with zipper 20-30 mmHg Dx:R60.0, S72.002A Calcium Citrate-Vitamin D3 500 mg calcium -400 unit Chew Take 1 Each by mouth daily with food. albuterol 90 mcg/Actuation INHALATION Aero Inhale 2 Puffs as instructed four times daily. USE DIRECTED No current facility-administered medications on file prior to visit. Social History Social History Tobacco Use Smoking status: Former Packs/day: .5 Types: Cigarettes Quit date: 04/27/2015 Years since quittin.6 Smokeless tobacco: Never Substance Use Topics Alcohol use: No Drug use: No REVIEW OF SYSTEMS: as above Reviewed relevant PMHx, PSHx, Social Hx, current medications and allergies. Review of Symptoms REVIEW OF SYSTEMS See HPI. EXAM: BP 120/60 (BP Site: Right Arm, BP Position: Sitting, BP Cuff Size: Large Adult) Pulse 96 Resp 14 Wt 79.6 kg (175 lb 6.4 oz) SpO2 96% BMI 34.26 kg/m General Appearance: Well appearing, alert, in no acute distress, well-hydrated, well nourished.. Skin: Skin color, texture, turgor normal, no suspicious rashes or lesions. Head: Normocephalic, no masses, lesions, tenderness or abnormalities. Lungs: Lungs clear to auscultation. No wheezing, rhonchi, rales.. Heart: RRR without murmur, gallop, or rubs. No ectopy. Neurologic: Gait unsteady but stable. Reflexes normal and symmetric. Sensation grossly intact.. Health Maintenance List Spirometry Never done Alpha-1 Antitrypsin Deficiency Screening Never done Bone Density Screening due on 06/02/2018 RSV Vaccine(1 - 1-dose 60+ series) due on 11/30/2024 Shingrix Vaccine(1 of 2) due on 11/30/2024 Covid-19 Vaccine(2022- season) due on 11/30/2024 Influenza Vaccine(Season Ended) due on 03/11/2024 Annual PCP Team Chronic Disease Visit due on 11/30/2024 Colorectal Cancer Screening due on 03/22/2025 Diabetes Screening due on 03/26/2026 DTaP,Tdap,Td Vaccine(3 - Td or Tdap) due on 08/04/2026 Lipid Screening due on 11/09/2026 Hepatitis C Screening Completed Pneumococcal Vaccine: 65+ Completed Mammogram Screening Discontinued Advance Directive Discussion Discontinued ASSESSMENT/PLAN: 1. Confusion - ICD9: 298.9, ICD10: R41.0 (primary diagnosis) Mild cognitive impairment, concern for start of dementia. Rule out injury from recent fall and hitting head. - MRI BRAIN WO IVCON 2. Fall, initial encounter - ICD9: E888.9, ICD10: W19.XXXA Mild cognitive impairment, concern for start of dementia. Rule out injury from recent fall and hitting head. - MRI BRAIN WO IVCON 3. Short-term memory loss - ICD9: 780.93, ICD10: R41.3 Mild cognitive impairment, concern for start of dementia. Rule out injury from recent fall and hitting head. - MRI BRAIN WO IVCON 4. Headaches - ICD9: 784.0, ICD10: R51.9 Mild cognitive impairment, concern for start of dementia. Rule out injury from recent fall and hitting head. - MRI BRAIN WO IVCON 5. Mood swings - ICD9: 799.24, ICD10: R45.86 Mild cognitive impairment, concern for start of dementia. Rule out injury from recent fall and hitting head. - MRI BRAIN WO IVCON 6. Age-related osteoporosis without current pathological fracture - ICD9: 733.01, ICD10: M81.0 - set up for BMD AP Spine and Hip Unilateral - Reviewed the need for Calcium and Vitamin D supplements and weight bearing exercise as tolerated - ERGOCALCIFEROL (VITAMIN D2) 1,250 MCG (50,000 UNIT) CAPSULE - DXA-AXIAL SKELETON - BD DXA TRABECULAR BONE SCORE (TBS) 7. Low blood sugar - ICD9: 251.2, ICD10: E16.2 Recheck - BLOOD SUGAR DIAGNOSTIC STRIPS 8. Gastroesophageal reflux disease without esophagitis - ICD9: 530.81, ICD10: K21.9 Stable, refilled. - FAMOTIDINE 20 MG TABLET 9. Screening for osteoporosis - ICD9: V82.81, ICD10: Z13.820 - DXA-AXIAL SKELETON - BD DXA TRABECULAR BONE SCORE (TBS) 10. Asymptomatic menopause - ICD9: V49.81, ICD10: Z78.0 - DXA-AXIAL SKELETON - BD DXA TRABECULAR BONE SCORE (TBS) 11. Cognitive impairment, mild, so stated - ICD9: 331.83, ICD10: G31.84 Mild cognitive impairment, concern for start of dementia. Rule out injury from recent fall and hitting head. - MRI BRAIN WO IVCON - COMPREHENSIVE METABOLIC PANEL - COMPLETE BLOOD COUNT AND DIFFERENTIAL - LIPID PANEL BASIC - HEMOGLOBIN A1C 12. Dyslipidemia - ICD9: 272.4, ICD10: E78.5 - Control undetermined, due for labs - LIPID PANEL BASIC 13. Situational anxiety - ICD9: 300.09, ICD10: F41.8 Stable. Continue on current medication regimen. - COMPLETE BLOOD COUNT AND DIFFERENTIAL 14. Hypertension, unspecified type - ICD9: 401.9, ICD10: I10 - Controlled - Continue current medications - Recommend home blood pressure monitoring, to bring results to next visit - Encouraged sodium restriction, DASH or Mediterranean diet - Recommend regular aerobic exercise - COMPREHENSIVE METABOLIC PANEL - COMPLETE BLOOD COUNT AND DIFFERENTIAL - LIPID PANEL BASIC - HEMOGLOBIN A1C 15. IFG (impaired fasting glucose) - ICD9: 790.21, ICD10: R73.01 - HEMOGLOBIN A1C RTO in 3 months, sooner if needed. Prescription instructions reviewed with patient as applicable. Potential red flag symptoms discussed with the patient. Reviewed appropriate action plan to take if red flag symptoms occur. Patient agreeable to treatment plan. Lizzie Ramey APRN.BULKING MACHINE OPERATOR [address] [place] [address] documented in this encounter [facility] 12-01-2023 Note HNO ID: [id number] Author: LIZZIE MEIER APRN.CNP Service: ? Author Type: Nurse Practitioner Type: Progress Notes Filed: 12/01/2023 11:09 Note Text: Chief Complaint Patient presents with: follow up meds and headaches HPI Tasneem Rizzo is a 73 year old female who presents here today for Above Complaints. Tasneem is an established patient of Dr. Edwin DO. She is a new patient to me today. Concerns today... Confusion -- Feels over the last 6 months that her short term memory issues have worsened. Feels she is forgetting things and repeating herself constantly. Nephew has also noticed intermittent confusion. Will be driving in the car together and pt will forget where they are going and for what reason. Pt does reports intermittent dull headaches here and there. Pt also reports fall and hit head about 2 months ago but she does feel like memory issues significantly worsened after this. Never had brain imagining after this fall. Needs refill on medications. Needs routine lab work. -- Bone density in 2016 -- shows severe osteoporosis. No current medication regimen. Past medical history, appointments, medications, allergies reviewed. Previous Medical History PAST MEDICAL HISTORY Diagnosis Date Chronic obstructive pulmonary disease (COPD) (HCC) Degeneration of intervertebral disc, site unspecified Depressive disorder, not elsewhere classified Esophageal reflux Hypothyroidism Obstructive sleep apnea Osteoporosis, unspecified Other affections of shoulder region, not elsewhere classified Right elbow pain Previous Surgical History PAST SURGICAL HISTORY Procedure Laterality Date ARTHROSCOPY KNEE DIAGNOSTIC W/WO SYNOVIAL BX SPX Arthroscopy, knee DELIVERY ONLY , low cervical CHOLECYSTECTOMY Cholecystectomy IMPLANT MESH OPN HERNIA RPR/DEBRIDEMENT CLOSURE 03/06/07 PAST SURGICAL HISTORY OF 03/27/2004 gastric bypass RPR 1ST INGUN HRNA AGE 3 YRS/> REDUCIBLE Hernia repair, inguinal TONSILLECTOMY PRIMARY/SECONDARY Tonsillectomy UNLISTED LAPS PX HRNAP HERNIORRHAPHY HERNIOTOMY 03/06/07 Family History FAMILY HISTORY Problem Relation Age of Onset Breast Cancer Mother cva other (cva [Other]) Father Diabetes Father Borderline Diabetes Maternal Grandmother Patient Allergies ALLERGIES Allergen Reactions Maxidex [Dexamethas* Intolerance Nsaids (Non-Steroid* Intolerance not to take due to gastric bipass Boniva [Ibandronate] GI Upset Pain- hx gastric bypass. Intolerant to past biphosphonates. Sister with allergic response to reclast. Doxepin Intolerance AM hangover Current Medications Current Outpatient Medications on File Prior to Visit Medication Sig gabapentin (NEURONTIN) 300 mg capsule Take 1 capsule by mouth three times a day for 90 days. gabapentin (NEURONTIN) 100 mg capsule Take 1-2 capsules by mouth three times a day for 30 days. (Add to 300 mg capsule three times a day) ketoconazole (NIZORAL) 2 % shampoo Apply to affected area once daily as needed. ketoconazole (NIZORAL) 2 % cream APPLY TO THE AFFECTED AREA(S) at 600am and 1000pm venlafaxine ER (EFFEXOR XR) 37.5 mg 24 hr capsule Take 1 capsule by mouth once daily. carbamide peroxide (DEBROX) 6.5 % otic solution Use 5 Drops in the right ear once daily. MEDICATION, NON-DATABASE Stair lift polyethylene glycol 3350 17 gram packet Take 1 Packet by mouth once daily. Dissolve dose in 4 - 8 ounces of liquid and take as directed. senna-docusate (SENNA-S) 8.6-50 mg per tablet Take 1 tablet by mouth twice daily. PARoxetine (PAXIL) 40 mg tablet Take 1 tablet by mouth once daily. montelukast (SINGULAIR) 10 mg tablet Take 1 tablet by mouth daily at bedtime. For allergies IFEREX 150 150 mg iron capsule TAKE 1 TABLET BY MOUTH EVERY DAY WITH MEALS ergocalciferol 50,000 unit capsule (VITAMIN D2, DRISDOL) Take 1 capsule by mouth one time a week. buPROPion SR (ZYBAN SR; WELLBUTRIN SR) 150 mg 12 hr tablet Take 2 tablets PO in the AM and 1 tablet PO in the PM ondansetron orally disintegrating (ZOFRAN ODT) 4 mg disintegrating tablet Take 1 tablet by mouth every 8 hours as needed for nausea/vomiting. blood sugar diagnostic (BLOOD GLUCOSE TEST) test strip Test blood sugar(s) 1 times daily. Dx: Other DM Code hypoglycemia e16.2 Insulin: No famotidine (PEPCID) 20 mg tablet Take 1 tablet by mouth twice daily. ofloxacin (FLOXIN) 0.3 % otic solution Use 5 Drops in both ears twice daily. potassium chloride ER (K-DUR, KLOR-CON) 20 mEq tablet Take 20 mEq by mouth twice daily with meals. acetaminophen (TYLENOL 8 HOUR ORAL) Take 1,000 mg by mouth three times daily. rnsntwg-docubmxbh-kijrowc D3 500 mg(1,250mg) -200 unit per tablet TWICE DAILY WITH MEALS carvedilol (COREG) 12.5 mg tablet TAKE 1 TABLET BY MOUTH TWICE DAILY. must administer with a meal/food. furosemide (LASIX) 40 mg tablet Take 40 mg by mouth once daily. VITAMIN B COMPLEX ORAL Take by mouth. (more content not included)... [facility] 11-21-2023 Telephone encounter Note See message below from pt. Pt has two previous Rx's a 100 mg 1-2 caps TID in additional to 300 mg TID. Please advise. I've pended both Rx's. Tierney Benitez MA [facility] 11-21-2023 Miscellaneous Notes See message below from pt. Pt has two previous Rx's a 100 mg 1-2 caps TID in additional to 300 mg TID. Please advise. I've pended both Rx's. Tierney Benitez MA Tasneem is calling Kei Pineda DO today to request Refill Request. Patient calling for a refill of Gabapentin -not on refill list. She stated Dr. Combs discussed with her 2 a day at the stronger dose. Patient has been identified by name and birthdate. Duration of symptoms: N/A Person calling: self Call patient at: on cell [phone] (home) [phone] (cell) Was an appointment scheduled: No Closing statement: Results or non-symptom based questions: Thank you for calling [facility], your call will be returned within the next business day. Debra Peña documented in this encounter [facility] 11-21-2023 Telephone encounter Note Tasneem is calling Kei Pineda DO today to request Refill Request. Patient calling for a refill of Gabapentin -not on refill list. She stated Dr. Combs discussed with her 2 a day at the stronger dose. Patient has been identified by name and birthdate. Duration of symptoms: N/A Person calling: self Call patient at: on cell [phone] (home) [phone] (cell) Was an appointment scheduled: No Closing statement: Results or non-symptom based questions: Thank you for calling [facility], your call will be returned within the next business day. Debra Peña [facility] 11-15-2023 Note HNO ID: [id number] Author: GERARDO MILLIGAN APRN.BULKING MACHINE OPERATOR Service: ? Author Type: Nurse Practitioner Type: Progress Notes Filed: 11/16/2023 13:39 Note Text: Chief Complaint Patient presents with: Psoriasis: Scalp HPI Tasneem Rizzo is a 73 year old female who presents here today for Above Complaints.. Still has hot flashes after going through menopause 30 or so years ago. Wakes up during the night with sweating and needing to throw the covers off. On 03/19/23 had a fall and hit the right side of her head. Gets some memory loss while speaking. Overall has some memory difficulty, both recent and old. Gets a constant pain/stabbing feeling on her neck. Wondering if this could be psoriasis in her ear and traveling down her neck. Psoriasis on her scalp, across the back of her neck, right lower back, right upper arm. Itches a lot. Past medical history, appointments, medications, allergies reviewed. Previous Medical History PAST MEDICAL HISTORY Diagnosis Date Chronic obstructive pulmonary disease (COPD) (HCC) Degeneration of intervertebral disc, site unspecified Depressive disorder, not elsewhere classified Esophageal reflux Hypothyroidism Obstructive sleep apnea Osteoporosis, unspecified Other affections of shoulder region, not elsewhere classified Right elbow pain Previous Surgical History PAST SURGICAL HISTORY Procedure Laterality Date ARTHROSCOPY KNEE DIAGNOSTIC W/WO SYNOVIAL BX SPX Arthroscopy, knee DELIVERY ONLY , low cervical CHOLECYSTECTOMY Cholecystectomy IMPLANT MESH OPN HERNIA RPR/DEBRIDEMENT CLOSURE 03/06/07 PAST SURGICAL HISTORY OF 03/27/2004 gastric bypass RPR 1ST INGUN HRNA AGE 3 YRS/> REDUCIBLE Hernia repair, inguinal TONSILLECTOMY PRIMARY/SECONDARY Tonsillectomy UNLISTED LAPS PX HRNAP HERNIORRHAPHY HERNIOTOMY 03/06/07 Family History FAMILY HISTORY Problem Relation Age of Onset Breast Cancer Mother cva other (cva [Other]) Father Diabetes Father Borderline Diabetes Maternal Grandmother Patient Allergies ALLERGIES Allergen Reactions Maxidex [Dexamethas* Intolerance Nsaids (Non-Steroid* Intolerance not to take due to gastric bipass Boniva [Ibandronate] GI Upset Pain- hx gastric bypass. Intolerant to past biphosphonates. Sister with allergic response to reclast. Doxepin Intolerance AM hangover Current Medications Current Outpatient Medications on File Prior to Visit Medication Sig MEDICATION, NON-DATABASE Stair lift polyethylene glycol 3350 17 gram packet Take 1 Packet by mouth once daily. Dissolve dose in 4 - 8 ounces of liquid and take as directed. senna-docusate (SENNA-S) 8.6-50 mg per tablet Take 1 tablet by mouth twice daily. PARoxetine (PAXIL) 40 mg tablet Take 1 tablet by mouth once daily. montelukast (SINGULAIR) 10 mg tablet Take 1 tablet by mouth daily at bedtime. For allergies IFEREX 150 150 mg iron capsule TAKE 1 TABLET BY MOUTH EVERY DAY WITH MEALS ergocalciferol 50,000 unit capsule (VITAMIN D2, DRISDOL) Take 1 capsule by mouth one time a week. buPROPion SR (ZYBAN SR; WELLBUTRIN SR) 150 mg 12 hr tablet Take 2 tablets PO in the AM and 1 tablet PO in the PM ondansetron orally disintegrating (ZOFRAN ODT) 4 mg disintegrating tablet Take 1 tablet by mouth every 8 hours as needed for nausea/vomiting. blood sugar diagnostic (BLOOD GLUCOSE TEST) test strip Test blood sugar(s) 1 times daily. Dx: Other DM Code hypoglycemia e16.2 Insulin: No famotidine (PEPCID) 20 mg tablet Take 1 tablet by mouth twice daily. ofloxacin (FLOXIN) 0.3 % otic solution Use 5 Drops in both ears twice daily. potassium chloride ER (K-DUR, KLOR-CON) 20 mEq tablet Take 20 mEq by mouth twice daily with meals. ketoconazole (NIZORAL) 2 % cream APPLY TO THE AFFECTED AREA(S) at 600am and 1000pm acetaminophen (TYLENOL 8 HOUR ORAL) Take 1,000 mg by mouth three times daily. qsdazff-wzcymqvnk-gqpcojx D3 500 mg(1,250mg) -200 unit per tablet TWICE DAILY WITH MEALS carvedilol (COREG) 12.5 mg tablet TAKE 1 TABLET BY MOUTH TWICE DAILY. must administer with a meal/food. furosemide (LASIX) 40 mg tablet Take 40 mg by mouth once daily. VITAMIN B COMPLEX ORAL Take by mouth. nystatin (NYSTOP) powder Apply 1 application to affected area twice daily. COMPOUNDED PRESCRIPTION Jobst stocking knee high with zipper 20-30 mmHg Dx:R60.0, S72.002A Calcium Citrate-Vitamin D3 500 mg calcium -400 unit Chew Take 1 Each by mouth daily with food. albuterol 90 mcg/Actuation INHALATION Aero Inhale 2 Puffs as instructed four times daily. USE DIRECTED No current facility-administered medications on file prior to visit. Social History Social History Tobacco Use Smoking status: Former Packs/day: .5 Types: Cigarettes Quit date: 04/27/2015 Years since quittin.5 Smokeless tobacco: Never Substance Use Topics Alcohol use: No Drug use: No Review of Symptoms REVIEW OF SYSTEMS See HPI, otherwise negative EXAM: (more content not included)... [facility] 11-15-2023 History of Presen t illness Narrative Chief Complaint Patient presents with: Psoriasis: Scalp HPI Tasneem Rizzo is a 73 year old female who presents here today for Above Complaints.. Still has hot flashes after going through menopause 30 or so years ago. Wakes up during the night with sweating and needing to throw the covers off. On 03/19/23 had a fall and hit the right side of her head. Gets some memory loss while speaking. Overall has some memory difficulty, both recent and old. Gets a constant pain/stabbing feeling on her neck. Wondering if this could be psoriasis in her ear and traveling down her neck. Psoriasis on her scalp, across the back of her neck, right lower back, right upper arm. Itches a lot. Past medical history, appointments, medications, allergies reviewed. Previous Medical History PAST MEDICAL HISTORY Diagnosis Date Chronic obstructive pulmonary disease (COPD) (HCC) Degeneration of intervertebral disc, site unspecified Depressive disorder, not elsewhere classified Esophageal reflux Hypothyroidism Obstructive sleep apnea Osteoporosis, unspecified Other affections of shoulder region, not elsewhere classified Right elbow pain Previous Surgical History PAST SURGICAL HISTORY Procedure Laterality Date ARTHROSCOPY KNEE DIAGNOSTIC W/WO SYNOVIAL BX SPX Arthroscopy, knee DELIVERY ONLY , low cervical CHOLECYSTECTOMY Cholecystectomy IMPLANT MESH OPN HERNIA RPR/DEBRIDEMENT CLOSURE 03/06/07 PAST SURGICAL HISTORY OF 03/27/2004 gastric bypass RPR 1ST INGUN HRNA AGE 3 YRS/> REDUCIBLE Hernia repair, inguinal TONSILLECTOMY PRIMARY/SECONDARY <AGE 10 Tonsillectomy UNLISTED LAPS PX HRNAP HERNIORRHAPHY HERNIOTOMY 03/06/07 Family History FAMILY HISTORY Problem Relation Age of Onset Breast Cancer Mother cva other (cva [Other]) Father Diabetes Father Borderline Diabetes Maternal Grandmother Patient Allergies ALLERGIES Allergen Reactions Maxidex [Dexamethas* Intolerance Nsaids (Non-Steroid* Intolerance not to take due to gastric bipass Boniva [Ibandronate] GI Upset Pain- hx gastric bypass. Intolerant to past biphosphonates. Sister with allergic response to reclast. Doxepin Intolerance AM hangover Current Medications Current Outpatient Medications on File Prior to Visit Medication Sig MEDICATION, NON-DATABASE Stair lift polyethylene glycol 3350 17 gram packet Take 1 Packet by mouth once daily. Dissolve dose in 4 - 8 ounces of liquid and take as directed. senna-docusate (SENNA-S) 8.6-50 mg per tablet Take 1 tablet by mouth twice daily. PARoxetine (PAXIL) 40 mg tablet Take 1 tablet by mouth once daily. montelukast (SINGULAIR) 10 mg tablet Take 1 tablet by mouth daily at bedtime. For allergies IFEREX 150 150 mg iron capsule TAKE 1 TABLET BY MOUTH EVERY DAY WITH MEALS ergocalciferol 50,000 unit capsule (VITAMIN D2, DRISDOL) Take 1 capsule by mouth one time a week. buPROPion SR (ZYBAN SR; WELLBUTRIN SR) 150 mg 12 hr tablet Take 2 tablets PO in the AM and 1 tablet PO in the PM ondansetron orally disintegrating (ZOFRAN ODT) 4 mg disintegrating tablet Take 1 tablet by mouth every 8 hours as needed for nausea/vomiting. blood sugar diagnostic (BLOOD GLUCOSE TEST) test strip Test blood sugar(s) 1 times daily. Dx: Other DM Code hypoglycemia e16.2 Insulin: No famotidine (PEPCID) 20 mg tablet Take 1 tablet by mouth twice daily. ofloxacin (FLOXIN) 0.3 % otic solution Use 5 Drops in both ears twice daily. potassium chloride ER (K-DUR, KLOR-CON) 20 mEq tablet Take 20 mEq by mouth twice daily with meals. ketoconazole (NIZORAL) 2 % cream APPLY TO THE AFFECTED AREA(S) at 600am and 1000pm acetaminophen (TYLENOL 8 HOUR ORAL) Take 1,000 mg by mouth three times daily. qsvwztn-pjazkxkwb-cijxdcj D3 500 mg(1,250mg) -200 unit per tablet TWICE DAILY WITH MEALS carvedilol (COREG) 12.5 mg tablet TAKE 1 TABLET BY MOUTH TWICE DAILY. must administer with a meal/food. furosemide (LASIX) 40 mg tablet Take 40 mg by mouth once daily. VITAMIN B COMPLEX ORAL Take by mouth. nystatin (NYSTOP) powder Apply 1 application to affected area twice daily. COMPOUNDED PRESCRIPTION Jobst stocking knee high with zipper 20-30 mmHg Dx:R60.0, S72.002A Calcium Citrate-Vitamin D3 500 mg calcium -400 unit Chew Take 1 Each by mouth daily with food. albuterol 90 mcg/Actuation INHALATION Aero Inhale 2 Puffs as instructed four times daily. USE DIRECTED No current facility-administered medications on file prior to visit. Social History Social History Tobacco Use Smoking status: Former Packs/day: .5 Types: Cigarettes Quit date: 04/27/2015 Years since quittin.5 Smokeless tobacco: Never Substance Use Topics Alcohol use: No Drug use: No Review of Symptoms REVIEW OF SYSTEMS See HPI, otherwise negative EXAM: BP 140/82 (BP Site: Left Arm, BP Position: Sitting, BP Cuff Size: Regular Adult) Pulse 83 Resp 18 Wt 75.4 kg (166 lb 3.2 oz) SpO2 100% BMI 32.46 kg/m General Appearance: Well appearing, alert, in no acute distress, well-hydrated, well nourished.. Skin: reddened scaley areas all over entire scalp. Multiple scaly and red scabbed areas to chest, upper arms, right upper back. No drainage, no warmth. Ears: scaly dry skin to bilateral external ear canals, erythema to left TM. Oropharynx: Lips, mucosa, and tongue normal, teeth and gums normal, oropharynx normal. Neck: Supple, no adenopathy; thyroid symmetric, normal size, no bruits. Lungs: Lungs clear to auscultation. No wheezing, rhonchi, rales.. Heart: RRR without murmur, gallop, or rubs. No ectopy. Psychiatric: pleasant, cooperative, flight of ideas. Health Maintenance List Spirometry Never done Alpha-1 Antitrypsin Deficiency Screening Never done Shingrix Vaccine(1 of 2) Never done RSV Vaccine(1 - 1-dose 60+ series) Never done Bone Density Screening due on 06/02/2018 Covid-19 Vaccine( season) due on 08/28/2023 Influenza Vaccine(Season Ended) due on 03/11/2024 Annual PCP Team Chronic Disease Visit due on 05/30/2024 Colorectal Cancer Screening due on 03/22/2025 Diabetes Screening due on 03/26/2026 DTaP,Tdap,Td Vaccine(3 - Td or Tdap) due on 08/04/2026 Lipid Screening due on 11/09/2026 Hepatitis C Screening Completed Pneumococcal Vaccine: 65+ Completed Mammogram Screening Discontinued Advance Directive Discussion Discontinued Data reviewed Previous records, office notes ASSESSMENT/PLAN: 1. Scalp psoriasis - ICD9: 696.1, ICD10: L40.9 (primary diagnosis) - KETOCONAZOLE 2 % SHAMPOO 2. Psoriasis - ICD9: 696.1, ICD10: L40.9 - KETOCONAZOLE 2 % TOPICAL CREAM 3. Acute otitis media, left - ICD9: 382.9, ICD10: H66.92 - Will begin treatment with as per antibiotic as written, see orders - Supportive care with plenty of fluids, rest, and analgesia prn. - Follow up in one week if symptoms persist or worsen. - AMOXICILLIN 875 MG TABLET 4. Hot flashes due to menopause - ICD9: 627.2, ICD10: N95.1 - VENLAFAXINE ER 37.5 MG CAPSULE,EXTENDED RELEASE 24 HR 5. Bipolar 2 disorder, major depressive episode (HCC) - ICD9: 296.89, ICD10: F31.81 - VENLAFAXINE ER 37.5 MG CAPSULE,EXTENDED RELEASE 24 HR 6. Impacted cerumen of right ear - ICD9: 380.4, ICD10: H61.21 - DEBROX 6.5 % EAR DROPS Gerardo Milligan APRN.BULKING MACHINE OPERATOR documented in this encounter [facility] 10-26-2023 History of Presen t illness Narrative Radiology Service Progress Note PATIENT NAME: Tasneem Rizzo DATE OF SERVICE: October 26, 2023 TIME: 3:15 PM PATIENT IDENTITY VERIFICATION COMPLETED USING TWO (2) IDENTIFIERS: Name and Date of confirmed by patient verbally. FALL SCREENING: Has the patient had 2 falls in the last year or 1 fall with injury or currently using an Ambulatory Assistive Device (Walker, Cane, Wheelchair, Crutches, etc.)? Yes, Patient High Risk for Falls What interventions were put in place to prevent falls during this visit? Offered Assistance with Transfers/Clothing, Instructed Patient to Remain Seated (Not on Exam Table) Until Exam, and Increased Observations by Caregivers PATIENT GENDER DATA: Female. status: : No status: NO. PATIENT RELEVANT IMPLANT DATA REVIEWED: Yes PATIENT PRESENTS WITH AN IMPLANTABLE OR ATTACHED PATIENT SAFETY TECH: No RADIOLOGY DEPARTMENT: General X-ray: Exam(s) Completed: Upper Extremity X-Ray(s): Humerus, left PERIPHERAL IV DATA: Not applicable SIGNED BY: RT Gildardo(R) October 26, 2023 3:15 PM documented in this encounter [facility] 10-26-2023 Note HNO ID: [id number] Author: PARMJIT TALBERT RT(R) Service: ? Author Type: Nanotechnology Engineering Technologist Type: Progress Notes Filed: 10/26/2023 15:28 Note Text: Radiology Service Progress Note PATIENT NAME: Tasneem Rizzo DATE OF SERVICE: October 26, 2023 TIME: 3:15 PM PATIENT IDENTITY VERIFICATION COMPLETED USING TWO (2) IDENTIFIERS: Name and Date of confirmed by patient verbally. FALL SCREENING: Has the patient had 2 falls in the last year or 1 fall with injury or currently using an Ambulatory Assistive Device (Walker, Cane, Wheelchair, Crutches, etc.)? Yes, Patient High Risk for Falls What interventions were put in place to prevent falls during this visit? Offered Assistance with Transfers/Clothing, Instructed Patient to Remain Seated (Not on Exam Table) Until Exam, and Increased Observations by Caregivers PATIENT GENDER DATA: Female. status: : No status: NO. PATIENT RELEVANT IMPLANT DATA REVIEWED: Yes PATIENT PRESENTS WITH AN IMPLANTABLE OR ATTACHED PATIENT SAFETY TECH: No RADIOLOGY DEPARTMENT: General X-ray: Exam(s) Completed: Upper Extremity X-Ray(s): Humerus, left PERIPHERAL IV DATA: Not applicable SIGNED BY: RT Gildardo(Stacey) October 26, 2023 3:15 PM [facility] 10-26-2023 Note HNO ID: [id number] Author: NANCY GARIBAY APRN.BULKING MACHINE OPERATOR Service: ? Author Type: Nurse Practitioner Type: Progress Notes Filed: 10/26/2023 17:00 Note Text: Subjective HPI HPI Tasneem Rizzo is a 73 year old female who presents today for CC of left arm pain after reaching back 4 days ago. Has tried otc medication for relief. Symptoms are worsened by rom of arm. Risk factors hx of left elbow fracture. Denies numbness/tingling. Denies direct injury/fall/blow to arm. Itchy rash on shoulder and scalp, reports hx of eczema .Patient presents with: Shoulder Injury: left x 4 days, reached back PAST MEDICAL HISTORY Diagnosis Date Chronic obstructive pulmonary disease (COPD) (HCC) Degeneration of intervertebral disc, site unspecified Depressive disorder, not elsewhere classified Esophageal reflux Hypothyroidism Obstructive sleep apnea Osteoporosis, unspecified Other affections of shoulder region, not elsewhere classified Right elbow pain PAST SURGICAL HISTORY Procedure Laterality Date ARTHROSCOPY KNEE DIAGNOSTIC W/WO SYNOVIAL BX SPX Arthroscopy, knee DELIVERY ONLY , low cervical CHOLECYSTECTOMY Cholecystectomy IMPLANT MESH OPN HERNIA RPR/DEBRIDEMENT CLOSURE 03/06/07 PAST SURGICAL HISTORY OF 03/27/2004 gastric bypass RPR 1ST INGUN HRNA AGE 3 YRS/> REDUCIBLE Hernia repair, inguinal TONSILLECTOMY PRIMARY/SECONDARY Tonsillectomy UNLISTED LAPS PX HRNAP HERNIORRHAPHY HERNIOTOMY 03/06/07 ALLERGIES Maxidex [Dexamethasone], Nsaids (Non-Steroidal Anti-Inflammatory Drug), Boniva [Ibandronate], and Doxepin MEDICATIONS MEDICATION, NON-DATABASE Stair lift polyethylene glycol 3350 17 gram packet Take 1 Packet by mouth once daily. Dissolve dose in 4 - 8 ounces of liquid and take as directed. senna-docusate (SENNA-S) 8.6-50 mg per tablet Take 1 tablet by mouth twice daily. PARoxetine (PAXIL) 40 mg tablet Take 1 tablet by mouth once daily. montelukast (SINGULAIR) 10 mg tablet Take 1 tablet by mouth daily at bedtime. For allergies IFEREX 150 150 mg iron capsule TAKE 1 TABLET BY MOUTH EVERY DAY WITH MEALS ergocalciferol 50,000 unit capsule (VITAMIN D2, DRISDOL) Take 1 capsule by mouth one time a week. buPROPion SR (ZYBAN SR; WELLBUTRIN SR) 150 mg 12 hr tablet Take 2 tablets PO in the AM and 1 tablet PO in the PM ondansetron orally disintegrating (ZOFRAN ODT) 4 mg disintegrating tablet Take 1 tablet by mouth every 8 hours as needed for nausea/vomiting. blood sugar diagnostic (BLOOD GLUCOSE TEST) test strip Test blood sugar(s) 1 times daily. Dx: Other DM Code hypoglycemia e16.2 Insulin: No famotidine (PEPCID) 20 mg tablet Take 1 tablet by mouth twice daily. ofloxacin (FLOXIN) 0.3 % otic solution Use 5 Drops in both ears twice daily. potassium chloride ER (K-DUR, KLOR-CON) 20 mEq tablet Take 20 mEq by mouth twice daily with meals. ketoconazole (NIZORAL) 2 % cream APPLY TO THE AFFECTED AREA(S) at 600am and 1000pm acetaminophen (TYLENOL 8 HOUR ORAL) Take 1,000 mg by mouth three times daily. yvadyle-bnbqdafcr-xmkcmmx D3 500 mg(1,250mg) -200 unit per tablet TWICE DAILY WITH MEALS carvedilol (COREG) 12.5 mg tablet TAKE 1 TABLET BY MOUTH TWICE DAILY. must administer with a meal/food. furosemide (LASIX) 40 mg tablet Take 40 mg by mouth once daily. VITAMIN B COMPLEX ORAL Take by mouth. nystatin (NYSTOP) powder Apply 1 application to affected area twice daily. COMPOUNDED PRESCRIPTION Jobst stocking knee high with zipper 20-30 mmHg Dx:R60.0, S72.002A Calcium Citrate-Vitamin D3 500 mg calcium -400 unit Chew Take 1 Each by mouth daily with food. albuterol 90 mcg/Actuation INHALATION Aero Inhale 2 Puffs as instructed four times daily. USE DIRECTED FAMILY HISTORY Problem Relation Age of Onset Breast Cancer Mother cva other (cva [Other]) Father Diabetes Father Borderline Diabetes Maternal Grandmother Social History Tobacco Use Smoking status: Former Packs/day: .5 Types: Cigarettes Quit date: 04/27/2015 Years since quittin.5 Smokeless tobacco: Never Substance Use Topics Alcohol use: No Drug use: No ROS Objective Blood pressure 124/72, pulse 112, temperature 36.9 ?C (98.5 ?F), resp. rate 18, weight 75.6 kg (166 lb 10.7 oz), SpO2 96%. Physical Exam Constitutional: General: She is not in acute distress. Appearance: She is not toxic-appearing or diaphoretic. HENT: Head: Normocephalic and atraumatic. Pulmonary: Effort: Pulmonary effort is normal. No accessory muscle usage or respiratory distress. Musculoskeletal: Arms: Skin: Neurological: Mental Status: She is alert and oriented to person, place, and time. ASSESSMENT/PLAN: 1. Arm injuries, left, initial encounter - ICD9: 959.8, ICD10: S49.92XA (primary diagnosis) Try steroid F/u with [facility] - XR HUMERUS 2V AP/LAT LEFT IMPRESSION: No acute osseous abnormality. 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 [facility] 10-26-2023 History of Presen t illness Narrative Images from the original note were not included. Subjective HPI HPI Tasneem Rizzo is a 73 year old female who presents today for CC of left arm pain after reaching back 4 days ago. Has tried otc medication for relief. Symptoms are worsened by rom of arm. Risk factors hx of left elbow fracture. Denies numbness/tingling. Denies direct injury/fall/blow to arm. Itchy rash on shoulder and scalp, reports hx of eczema .Patient presents with: Shoulder Injury: left x 4 days, reached back PAST MEDICAL HISTORY Diagnosis Date Chronic obstructive pulmonary disease (COPD) (HCC) Degeneration of intervertebral disc, site unspecified Depressive disorder, not elsewhere classified Esophageal reflux Hypothyroidism Obstructive sleep apnea Osteoporosis, unspecified Other affections of shoulder region, not elsewhere classified Right elbow pain PAST SURGICAL HISTORY Procedure Laterality Date ARTHROSCOPY KNEE DIAGNOSTIC W/WO SYNOVIAL BX SPX Arthroscopy, knee DELIVERY ONLY , low cervical CHOLECYSTECTOMY Cholecystectomy IMPLANT MESH OPN HERNIA RPR/DEBRIDEMENT CLOSURE 03/06/07 PAST SURGICAL HISTORY OF 03/27/2004 gastric bypass RPR 1ST INGUN HRNA AGE 3 YRS/> REDUCIBLE Hernia repair, inguinal TONSILLECTOMY PRIMARY/SECONDARY <AGE 10 Tonsillectomy UNLISTED LAPS PX HRNAP HERNIORRHAPHY HERNIOTOMY 03/06/07 ALLERGIES Maxidex [Dexamethasone], Nsaids (Non-Steroidal Anti-Inflammatory Drug), Boniva [Ibandronate], and Doxepin MEDICATIONS MEDICATION, NON-DATABASE Stair lift polyethylene glycol 3350 17 gram packet Take 1 Packet by mouth once daily. Dissolve dose in 4 - 8 ounces of liquid and take as directed. senna-docusate (SENNA-S) 8.6-50 mg per tablet Take 1 tablet by mouth twice daily. PARoxetine (PAXIL) 40 mg tablet Take 1 tablet by mouth once daily. montelukast (SINGULAIR) 10 mg tablet Take 1 tablet by mouth daily at bedtime. For allergies IFEREX 150 150 mg iron capsule TAKE 1 TABLET BY MOUTH EVERY DAY WITH MEALS ergocalciferol 50,000 unit capsule (VITAMIN D2, DRISDOL) Take 1 capsule by mouth one time a week. buPROPion SR (ZYBAN SR; WELLBUTRIN SR) 150 mg 12 hr tablet Take 2 tablets PO in the AM and 1 tablet PO in the PM ondansetron orally disintegrating (ZOFRAN ODT) 4 mg disintegrating tablet Take 1 tablet by mouth every 8 hours as needed for nausea/vomiting. blood sugar diagnostic (BLOOD GLUCOSE TEST) test strip Test blood sugar(s) 1 times daily. Dx: Other DM Code hypoglycemia e16.2 Insulin: No famotidine (PEPCID) 20 mg tablet Take 1 tablet by mouth twice daily. ofloxacin (FLOXIN) 0.3 % otic solution Use 5 Drops in both ears twice daily. potassium chloride ER (K-DUR, KLOR-CON) 20 mEq tablet Take 20 mEq by mouth twice daily with meals. ketoconazole (NIZORAL) 2 % cream APPLY TO THE AFFECTED AREA(S) at 600am and 1000pm acetaminophen (TYLENOL 8 HOUR ORAL) Take 1,000 mg by mouth three times daily. wzmsqpu-bmdbrvttw-nwfehko D3 500 mg(1,250mg) -200 unit per tablet TWICE DAILY WITH MEALS carvedilol (COREG) 12.5 mg tablet TAKE 1 TABLET BY MOUTH TWICE DAILY. must administer with a meal/food. furosemide (LASIX) 40 mg tablet Take 40 mg by mouth once daily. VITAMIN B COMPLEX ORAL Take by mouth. nystatin (NYSTOP) powder Apply 1 application to affected area twice daily. COMPOUNDED PRESCRIPTION Jobst stocking knee high with zipper 20-30 mmHg Dx:R60.0, S72.002A Calcium Citrate-Vitamin D3 500 mg calcium -400 unit Chew Take 1 Each by mouth daily with food. albuterol 90 mcg/Actuation INHALATION Aero Inhale 2 Puffs as instructed four times daily. USE DIRECTED FAMILY HISTORY Problem Relation Age of Onset Breast Cancer Mother cva other (cva [Other]) Father Diabetes Father Borderline Diabetes Maternal Grandmother Social History Tobacco Use Smoking status: Former Packs/day: .5 Types: Cigarettes Quit date: 04/27/2015 Years since quittin.5 Smokeless tobacco: Never Substance Use Topics Alcohol use: No Drug use: No ROS Objective Blood pressure 124/72, pulse 112, temperature 36.9 C (98.5 F), resp. rate 18, weight 75.6 kg (166 lb 10.7 oz), SpO2 96%. Physical Exam Constitutional: General: She is not in acute distress. Appearance: She is not toxic-appearing or diaphoretic. HENT: Head: Normocephalic and atraumatic. Pulmonary: Effort: Pulmonary effort is normal. No accessory muscle usage or respiratory distress. Musculoskeletal: Arms: Skin: Neurological: Mental Status: She is alert and oriented to person, place, and time. ASSESSMENT/PLAN: 1. Arm injuries, left, initial encounter - ICD9: 959.8, ICD10: S49.92XA (primary diagnosis) Try steroid F/u with [facility] - XR HUMERUS 2V AP/LAT LEFT IMPRESSION: No acute osseous abnormality. Chronic healed impacted malunited fracture deformity of the LEFT proximal humerus. Findings suggest full-thickness LEFT rotator cuff tear. Moderate LEFT glenohumeral osteoarthritis. Dictated by : KEYLA POSADA DO - PREDNISONE 10 MG TABLET 2. Rash - ICD9: 782.1, ICD10: R21 -use medication as prescribed -follow up if symptoms persist, worsen, change - PREDNISONE 10 MG TABLET Nancy Garibay APRN.RAY documented in this encounter [facility] 10-21-2023 Miscellaneous Notes Behavioral Health Social Work Progress Note Patient identified for [facility] from: PCP Reason for referral: Resources Behavioral Health Resources: Psychiatry med management, Psychology - talk therapy [facility] encounter type: Telephone Encounter Attempts to Outreach: 1 attempt Referral made: Psychiatry - Internal Psychiatry-Internal referral type: Medication Management Patient Discharged?: Yes therapist spoke to patient to assess bh needs. Patient was perseverating on psychosocial stressors. She initially declined services, then said she would be interested in see a psychiatric provider if they were in [place]. Patient does not drive and states that she can only do in person visits. Will check with Danna to see if she could schedule with this patient. SID Lopez-S October 21, 2023 documented in this encounter [facility] 06-20-2023 Note HNO ID: [id number] Author: Bola Dobson MD Service: ? Author Type: Physician Type: Progress Notes Filed: 06/20/2023 10:36 AM Note Text: Patient presents with: Right Elbow - Post Op, Pain, Swelling SURGEON Bola Dobson MD PROCEDURE 03/24/2023 Right total elbow arthroplasty Radial ulnar nerve decompression, and transposition HISTORY OF PRESENT ILLNESS Tasneem Rizzo presents for post operative follow up 3 months from surgery. The patient is doing very well and is pleased to report that she does not have any pain at the elbow. She was not able to go to formal therapy but has achieved motion that allows her to use her right hand for hygiene, eating and activities of daily living. No new complaints on today's visit. Current Concerns: None Pain control: Well-controlled Currently taking pain medication:No Fever, chills or other signs of infection: Denies PHYSICAL EXAMINATION Right elbow Section shows normal alignment No significant swelling. No effusion present Incision(s) clean, dry, intact No erythema, cellulitis or drainage Incision lines are intact, no drainage noted. Scars are maturing nicely ROM: Elbow motion 20 to 140 degrees. Full pronation/supination Wrist and hand motion symmetric with the contralateral side Sensation:Normal sensation AIN/PIN/ulnar motor intact Brisk cap refill IMAGING X-rays 06/20/23 3 views of the right elbow show appropriate position and stability of the right elbow prosthesis. No interval change from prior imaging. ASSESSMENT AND PLAN ASSESSMENT/PLAN: 1. Status post right elbow joint replacement - ICD9: V43.62, ICD10: Z96.621 - XR ELBOW SPECIAL VIEWS AP/LAT/OTHER RIGHT The patient is healing well. She is pleased with the results. I recommended that we follow-up at the 1 year abrahan to assess her progress and discuss long-term surveillance of the arthroplasty. All of her questions were answered to her satisfaction. Bola Dobson MD Pt education provided on lifelong lifting and activity restrictions. Patient was instructed to call the office with any questions and/or concerns [facility] 06-20-2023 History of Presen t illness Narrative Patient presents with: Right Elbow - Post Op, Pain, Swelling SURGEON Bola Dobson MD PROCEDURE 03/24/2023 Right total elbow arthroplasty Radial ulnar nerve decompression, and transposition HISTORY OF PRESENT ILLNESS Tasneem Rizzo presents for post operative follow up 3 months from surgery. The patient is doing very well and is pleased to report that she does not have any pain at the elbow. She was not able to go to formal therapy but has achieved motion that allows her to use her right hand for hygiene, eating and activities of daily living. No new complaints on today's visit. Current Concerns: None Pain control: Well-controlled Currently taking pain medication:No Fever, chills or other signs of infection: Denies PHYSICAL EXAMINATION Right elbow Section shows normal alignment No significant swelling. No effusion present Incision(s) clean, dry, intact No erythema, cellulitis or drainage Incision lines are intact, no drainage noted. Scars are maturing nicely ROM: Elbow motion 20 to 140 degrees. Full pronation/supination Wrist and hand motion symmetric with the contralateral side Sensation:Normal sensation AIN/PIN/ulnar motor intact Brisk cap refill IMAGING X-rays 06/20/23 3 views of the right elbow show appropriate position and stability of the right elbow prosthesis. No interval change from prior imaging. ASSESSMENT AND PLAN ASSESSMENT/PLAN: 1. Status post right elbow joint replacement - ICD9: V43.62, ICD10: Z96.621 - XR ELBOW SPECIAL VIEWS AP/LAT/OTHER RIGHT The patient is healing well. She is pleased with the results. I recommended that we follow-up at the 1 year abrahan to assess her progress and discuss long-term surveillance of the arthroplasty. All of her questions were answered to her satisfaction. Bola Dobson MD Pt education provided on lifelong lifting and activity restrictions. Patient was instructed to call the office with any questions and/or concerns documented in this encounter [facility] 06-16-2023 Miscellaneous Notes Pt informed, verbalized understanding. Nicolle Dumont MA No, this is not something we do at PCP office. Pt will need to reach out to bariatric team and surgical team that did gastric bypass about this. Thank you, Lizzie Meier APRN.RAY Phoned patient and given provider's message below. Patient asking if pcp can look it up and tell her if this is something she can get at pcp office? Please advise patient. Patient was scheduled today with Extraction Operator to receive the injection. Cancelled appt. Patient will re-schedule if pcp office able to give injection. This isn't something I am familiar with. Please inform patient Kei Pineda DO Pt called stating she would like to get a Peptids injection. Stated this is for someone who has had gastric bypass but has gained weight. She states it needs done in office. She understands insurance may not pay for it and plans to pay for it out of pocket if that is the case. She wants to have it already for the appointment so it can be done in one appointment if possible. Concerned insurance will not pay for 2 visits for the same thing. documented in this encounter [facility] 05-30-2023 Instructions Jose Ta APRN.RAY - 05/30/2023 9:47 AM EST 1. Start using aquaphor or eucerin daily 2. Schedule with dermatology 3. Start prednisone documented in this encounter [facility] 05-30-2023 Note HNO ID: [id number] Author: Jose Ta APRN.RAY Service: ? Author Type: Nurse Practitioner Type: Progress Notes Filed: 05/30/2023 9:47 AM Note Text: Chief Complaint Patient presents with: Follow Up HPI Tasneem Rizzo is a 73 year old female who presents here today for Above Complaints.. Patient presents for itching. Patient reports she has not started any new medications, used any new soaps, shampoos, or laundry detergents. Patient reports it started on her arms but has now started to spread. Past medical history, appointments, medications, allergies reviewed. Previous Medical History PAST MEDICAL HISTORY Diagnosis Date Chronic obstructive pulmonary disease (COPD) (HCC) Degeneration of intervertebral disc, site unspecified Depressive disorder, not elsewhere classified Esophageal reflux Hypothyroidism Obstructive sleep apnea Osteoporosis, unspecified Other affections of shoulder region, not elsewhere classified Right elbow pain Previous Surgical History PAST SURGICAL HISTORY Procedure Laterality Date ARTHROSCOPY KNEE DIAGNOSTIC W/WO SYNOVIAL BX SPX Arthroscopy, knee DELIVERY ONLY , low cervical CHOLECYSTECTOMY Cholecystectomy IMPLANT MESH OPN HERNIA RPR/DEBRIDEMENT CLOSURE 03/06/07 PAST SURGICAL HISTORY OF 03/27/2004 gastric bypass RPR 1ST INGUN HRNA AGE 3 YRS/> REDUCIBLE Hernia repair, inguinal TONSILLECTOMY PRIMARY/SECONDARY Tonsillectomy UNLIS LAPS PX HRNAP HERNIORRHAPHY HERNIOTOMY 03/06/07 Family History FAMILY HISTORY Problem Relation Age of Onset Breast Cancer Mother cva other (cva [Other]) Father Diabetes Father Borderline Diabetes Maternal Grandmother Patient Allergies ALLERGIES Allergen Reactions Maxidex [Dexamethas* Intolerance Nsaids (Non-Steroid* Intolerance not to take due to gastric bipass Boniva [Ibandronate] GI Upset Pain- hx gastric bypass. Intolerant to past biphosphonates. Sister with allergic response to reclast. Doxepin Intolerance AM hangover Current Medications Current Outpatient Medications on File Prior to Visit Medication Sig MEDICATION, NON-DATABASE Stair lift LORazepam (ATIVAN) 0.5 mg Take 1 tablet by mouth three times a day as needed for up to 30 days. polyethylene glycol 3350 17 gram packet Take 1 Packet by mouth once daily. Dissolve dose in 4 - 8 ounces of liquid and take as directed. senna-docusate (SENNA-S) 8.6-50 mg per tablet Take 1 tablet by mouth twice daily. PARoxetine (PAXIL) 40 mg tablet Take 1 tablet by mouth once daily. montelukast (SINGULAIR) 10 mg tablet Take 1 tablet by mouth daily at bedtime. For allergies IFEREX 150 150 mg iron capsule TAKE 1 TABLET BY MOUTH EVERY DAY WITH MEALS ergocalciferol 50,000 unit capsule (VITAMIN D2, DRISDOL) Take 1 capsule by mouth one time a week. buPROPion SR (ZYBAN SR; WELLBUTRIN SR) 150 mg 12 hr tablet Take 2 tablets PO in the AM and 1 tablet PO in the PM ondansetron orally disintegrating (ZOFRAN ODT) 4 mg disintegrating tablet Take 1 tablet by mouth every 8 hours as needed for nausea/vomiting. blood sugar diagnostic (BLOOD GLUCOSE TEST) test strip Test blood sugar(s) 1 times daily. Dx: Other DM Code hypoglycemia e16.2 Insulin: No famotidine (PEPCID) 20 mg tablet Take 1 tablet by mouth twice daily. ofloxacin (FLOXIN) 0.3 % otic solution Use 5 Drops in both ears twice daily. potassium chloride ER (K-DUR, KLOR-CON) 20 mEq tablet Take 20 mEq by mouth twice daily with meals. ketoconazole (NIZORAL) 2 % cream APPLY TO THE AFFECTED AREA(S) at 600am and 1000pm acetaminophen (TYLENOL 8 HOUR ORAL) Take 1,000 mg by mouth three times daily. fznhtmy-bqlunaqit-kegqnoa D3 500 mg(1,250mg) -200 unit per tablet TWICE DAILY WITH MEALS carvedilol (COREG) 12.5 mg tablet TAKE 1 TABLET BY MOUTH TWICE DAILY. must administer with a meal/food. furosemide (LASIX) 40 mg tablet Take 40 mg by mouth once daily. VITAMIN B COMPLEX ORAL Take by mouth. nystatin (NYSTOP) powder Apply 1 application to affected area twice daily. COMPOUNDED PRESCRIPTION Jobst stocking knee high with zipper 20-30 mmHg Dx:R60.0, S72.002A Calcium Citrate-Vitamin D3 500 mg calcium -400 unit Chew Take 1 Each by mouth daily with food. albuterol 90 mcg/Actuation INHALATION Aero Inhale 2 Puffs as instructed four times daily. USE DIRECTED No current facility-administered medications on file prior to visit. Social History Social History Tobacco Use Smoking status: Former Packs/day: .5 Types: Cigarettes Quit date: 04/27/2015 Years since quittin.0 Smokeless tobacco: Never Substance Use Topics Alcohol use: No Drug use: No Review of Symptoms REVIEW OF SYSTEMS SEE HPI EXAM: BP 136/74 Pulse 101 Resp 16 Wt 83 kg (183 lb) BMI 35.74 kg/m? General Appearance: Well appearing, alert, in no acute distress, well-hydrated, well nourished.. Skin: Red raised rash to neck and and bilateral arms. Health Maintenance L (more content not included)... [facility] 05-30-2023 History of Presen t illness Narrative Chief Complaint Patient presents with: Follow Up HPI Tasneem Rizzo is a 73 year old female who presents here today for Above Complaints.. Patient presents for itching. Patient reports she has not started any new medications, used any new soaps, shampoos, or laundry detergents. Patient reports it started on her arms but has now started to spread. Past medical history, appointments, medications, allergies reviewed. Previous Medical History PAST MEDICAL HISTORY Diagnosis Date Chronic obstructive pulmonary disease (COPD) (HCC) Degeneration of intervertebral disc, site unspecified Depressive disorder, not elsewhere classified Esophageal reflux Hypothyroidism Obstructive sleep apnea Osteoporosis, unspecified Other affections of shoulder region, not elsewhere classified Right elbow pain Previous Surgical History PAST SURGICAL HISTORY Procedure Laterality Date ARTHROSCOPY KNEE DIAGNOSTIC W/WO SYNOVIAL BX SPX Arthroscopy, knee DELIVERY ONLY , low cervical CHOLECYSTECTOMY Cholecystectomy IMPLANT MESH OPN HERNIA RPR/DEBRIDEMENT CLOSURE 03/06/07 PAST SURGICAL HISTORY OF 03/27/2004 gastric bypass RPR 1ST INGUN HRNA AGE 3 YRS/> REDUCIBLE Hernia repair, inguinal TONSILLECTOMY PRIMARY/SECONDARY <AGE 10 Tonsillectomy UNLIS LAPS PX HRNAP HERNIORRHAPHY HERNIOTOMY 03/06/07 Family History FAMILY HISTORY Problem Relation Age of Onset Breast Cancer Mother cva other (cva [Other]) Father Diabetes Father Borderline Diabetes Maternal Grandmother Patient Allergies ALLERGIES Allergen Reactions Maxidex [Dexamethas* Intolerance Nsaids (Non-Steroid* Intolerance not to take due to gastric bipass Boniva [Ibandronate] GI Upset Pain- hx gastric bypass. Intolerant to past biphosphonates. Sister with allergic response to reclast. Doxepin Intolerance AM hangover Current Medications Current Outpatient Medications on File Prior to Visit Medication Sig MEDICATION, NON-DATABASE Stair lift LORazepam (ATIVAN) 0.5 mg Take 1 tablet by mouth three times a day as needed for up to 30 days. polyethylene glycol 3350 17 gram packet Take 1 Packet by mouth once daily. Dissolve dose in 4 - 8 ounces of liquid and take as directed. senna-docusate (SENNA-S) 8.6-50 mg per tablet Take 1 tablet by mouth twice daily. PARoxetine (PAXIL) 40 mg tablet Take 1 tablet by mouth once daily. montelukast (SINGULAIR) 10 mg tablet Take 1 tablet by mouth daily at bedtime. For allergies IFEREX 150 150 mg iron capsule TAKE 1 TABLET BY MOUTH EVERY DAY WITH MEALS ergocalciferol 50,000 unit capsule (VITAMIN D2, DRISDOL) Take 1 capsule by mouth one time a week. buPROPion SR (ZYBAN SR; WELLBUTRIN SR) 150 mg 12 hr tablet Take 2 tablets PO in the AM and 1 tablet PO in the PM ondansetron orally disintegrating (ZOFRAN ODT) 4 mg disintegrating tablet Take 1 tablet by mouth every 8 hours as needed for nausea/vomiting. blood sugar diagnostic (BLOOD GLUCOSE TEST) test strip Test blood sugar(s) 1 times daily. Dx: Other DM Code hypoglycemia e16.2 Insulin: No famotidine (PEPCID) 20 mg tablet Take 1 tablet by mouth twice daily. ofloxacin (FLOXIN) 0.3 % otic solution Use 5 Drops in both ears twice daily. potassium chloride ER (K-DUR, KLOR-CON) 20 mEq tablet Take 20 mEq by mouth twice daily with meals. ketoconazole (NIZORAL) 2 % cream APPLY TO THE AFFECTED AREA(S) at 600am and 1000pm acetaminophen (TYLENOL 8 HOUR ORAL) Take 1,000 mg by mouth three times daily. gvabfkt-ozagtbucs-kkbwmgp D3 500 mg(1,250mg) -200 unit per tablet TWICE DAILY WITH MEALS carvedilol (COREG) 12.5 mg tablet TAKE 1 TABLET BY MOUTH TWICE DAILY. must administer with a meal/food. furosemide (LASIX) 40 mg tablet Take 40 mg by mouth once daily. VITAMIN B COMPLEX ORAL Take by mouth. nystatin (NYSTOP) powder Apply 1 application to affected area twice daily. COMPOUNDED PRESCRIPTION Jobst stocking knee high with zipper 20-30 mmHg Dx:R60.0, S72.002A Calcium Citrate-Vitamin D3 500 mg calcium -400 unit Chew Take 1 Each by mouth daily with food. albuterol 90 mcg/Actuation INHALATION Aero Inhale 2 Puffs as instructed four times daily. USE DIRECTED No current facility-administered medications on file prior to visit. Social History Social History Tobacco Use Smoking status: Former Packs/day: .5 Types: Cigarettes Quit date: 04/27/2015 Years since quittin.0 Smokeless tobacco: Never Substance Use Topics Alcohol use: No Drug use: No Review of Symptoms REVIEW OF SYSTEMS SEE HPI EXAM: BP 136/74 Pulse 101 Resp 16 Wt 83 kg (183 lb) BMI 35.74 kg/m General Appearance: Well appearing, alert, in no acute distress, well-hydrated, well nourished.. Skin: Red raised rash to neck and and bilateral arms. Health Maintenance List Spirometry Never done Alpha-1 Antitrypsin Deficiency Screening Never done Shingrix Vaccine(1 of 2) Never done RSV Vaccine(1 - 1-dose 60+ series) Never done Influenza Vaccine(1) due on 03/11/2023 Annual PCP Team Chronic Disease Visit due on 02/18/2024 Colorectal Cancer Screening due on 03/22/2025 Diabetes Screening due on 03/26/2026 DTaP,Tdap,Td Vaccine(3 - Td or Tdap) due on 08/04/2026 Lipid Screening due on 11/09/2026 Bone Density Screening Completed Hepatitis C Screening Completed Covid-19 Vaccine Completed Pneumococcal Vaccine: 65+ Completed Mammogram Screening Discontinued Advance Directive Discussion Discontinued ASSESSMENT/PLAN: 1. Dermatitis contact - ICD9: 692.9, ICD10: L25.9 - Oral Steriod tx -Prednisone taper - discussed skin care of rash - follow up if symptoms persist or worsen. - CONSULT TO DERMATOLOGY - PREDNISONE 10 MG TABLET - Start using eucerin or aquaphor daily to itchy areas Jose Ta APRN.BULKING MACHINE OPERATOR documented in this encounter [facility] 05-11-2023 Telephone encounter Note [facility] website checked and validated . All prescriptions have been APPROPRIATELY filled. No suspicious activity was identified. 05/11/2023 by Kei Pineda DO The following approved medication requests have been transmitted electronically. Requested Prescriptions Signed Prescriptions Disp Refills LORazepam (ATIVAN) 0.5 mg 30 tablet 1 Sig: Take 1 tablet by mouth three times a day as needed for up to 30 days. Authorizing Provider: KEI PINEDA DO [facility] 05-11-2023 Miscellaneous Notes [facility] website checked and validated . All prescriptions have been APPROPRIATELY filled. No suspicious activity was identified. 05/11/2023 by Kei Pineda DO The following approved medication requests have been transmitted electronically. Requested Prescriptions Signed Prescriptions Disp Refills LORazepam (ATIVAN) 0.5 mg 30 tablet 1 Sig: Take 1 tablet by mouth three times a day as needed for up to 30 days. Authorizing Provider: KEI PINEDA DO Kaylin--02/17/23 Nov--05/25/23 Last refill--02/17/23 30 with 0 refills Last labs--03/26/23 Patient has been identified by name and date of : Yes Patient phones for refill(s): Requested Prescriptions Pending Prescriptions Disp Refills LORazepam (ATIVAN) 0.5 mg Sig: Take 1 tablet by mouth three times a day as needed. Date of last office visit in primary care: 02/17/2023 Date of next office visit in primary care: 05/25/2023 Last 2 Encounter Wt Readings: Date: Wt: 04/15/2023 79.4 kg (175 lb) 03/19/2023 79.5 kg (175 lb 4.3 oz) Previous labs/tests for medication: Please advise. Thank you. Manda Curry. documented in this encounter [facility] 05-11-2023 Telephone encounter Note Kaylin--02/17/23 Nov--05/25/23 Last refill--02/17/23 30 with 0 refills Last labs--03/26/23 [facility] 05-11-2023 Telephone encounter Note Patient has been identified by name and date of : Yes Patient phones for refill(s): Requested Prescriptions Pending Prescriptions Disp Refills LORazepam (ATIVAN) 0.5 mg Sig: Take 1 tablet by mouth three times a day as needed. Date of last office visit in primary care: 02/17/2023 Date of next office visit in primary care: 05/25/2023 Last 2 Encounter Wt Readings: Date: Wt: 04/15/2023 79.4 kg (175 lb) 03/19/2023 79.5 kg (175 lb 4.3 oz) Previous labs/tests for medication: Please advise. Thank you. Manda Curry. [facility] Work Phone: 04-23-2023 Note HNO ID: [id number] Author: Note, Interface Service: ? Author Type: ? Type: Progress Notes Filed: 04/23/2023 5:06 AM Note Text: Epic Scheduled Downtime: 04/23/2023 1:00:00 AM to 04/23/2023 1:28:00 AM [facility] 04-15-2023 Note HNO ID: [id number] Author: Bola Dobson MD Service: ? Author Type: Physician Type: Progress Notes Filed: 04/15/2023 12:48 PM Note Text: Patient presents with: Right Elbow - New, Pain, Swelling SURGEON Bola Dobson MD PROCEDURE 03/24/2023 Right total elbow arthroplasty Radial ulnar nerve decompression, and transposition HISTORY OF PRESENT ILLNESS Tasneem Rizzo presents for post operative follow up 3 weeks from surgery. The patient is doing quite well. She had a multitude of transportation conflicts and issues from her rehabilitation facility. She reports an overall improvement in her pain. She has maintained the splint. No numbness or tingling. Current Concerns: Return to typical upper extremity use Pain control: Well-controlled Currently taking pain medication:No Fever, chills or other signs of infection: Denies PHYSICAL EXAMINATION Right upper extremity Splint taken down Inspection shows anatomic alignment at the elbow There is some mild residual swelling, no hematoma present Incision(s) lean, dry, intact. Steri-Strips in place Skin tears x2 distally along the forearm and wrist, present from prior admission with interval healing No erythema, cellulitis or drainage Sutures intact, will resorb. Ends of Monocryl trimmed ROM: Elbow motion 30 to 100 degrees, nonpainful Sensation:Normal sensation AIN/PIN/ulnar motor intact Brisk cap refill IMAGING X-rays 04/15/23 3 views of the right elbow show appropriate alignment of the implant arthroplasty. Cement mantle appears good and uniform. No other acute process noted. ASSESSMENT AND PLAN ASSESSMENT/PLAN: 1. Status post right elbow joint replacement - ICD9: V43.62, ICD10: Z96.621 I discussed the diagnosis with the patient. Her wound is healing uneventfully. There was a delay in her initial follow-up and I would like to initiate formal physical therapy. Forms were filled out from her rehabilitation facility, there is inpatient therapy at that site. I would like to follow-up in 6 weeks to ensure appropriate progress. All of her questions were answered to her satisfaction. Bola Dobson MD Pt education provided on range of motion exercises. Patient was instructed to call the office with any questions and/or concerns [facility] 04-15-2023 History of Presen t illness Narrative Patient presents with: Right Elbow - New, Pain, Swelling SURGEON Bola Dobson MD PROCEDURE 03/24/2023 Right total elbow arthroplasty Radial ulnar nerve decompression, and transposition HISTORY OF PRESENT ILLNESS Tasneem Rizzo presents for post operative follow up 3 weeks from surgery. The patient is doing quite well. She had a multitude of transportation conflicts and issues from her rehabilitation facility. She reports an overall improvement in her pain. She has maintained the splint. No numbness or tingling. Current Concerns: Return to typical upper extremity use Pain control: Well-controlled Currently taking pain medication:No Fever, chills or other signs of infection: Denies PHYSICAL EXAMINATION Right upper extremity Splint taken down Inspection shows anatomic alignment at the elbow There is some mild residual swelling, no hematoma present Incision(s) lean, dry, intact. Steri-Strips in place Skin tears x2 distally along the forearm and wrist, present from prior admission with interval healing No erythema, cellulitis or drainage Sutures intact, will resorb. Ends of Monocryl trimmed ROM: Elbow motion 30 to 100 degrees, nonpainful Sensation:Normal sensation AIN/PIN/ulnar motor intact Brisk cap refill IMAGING X-rays 04/15/23 3 views of the right elbow show appropriate alignment of the implant arthroplasty. Cement mantle appears good and uniform. No other acute process noted. ASSESSMENT AND PLAN ASSESSMENT/PLAN: 1. Status post right elbow joint replacement - ICD9: V43.62, ICD10: Z96.621 I discussed the diagnosis with the patient. Her wound is healing uneventfully. There was a delay in her initial follow-up and I would like to initiate formal physical therapy. Forms were filled out from her rehabilitation facility, there is inpatient therapy at that site. I would like to follow-up in 6 weeks to ensure appropriate progress. All of her questions were answered to her satisfaction. Bola Dobson MD Pt education provided on range of motion exercises. Patient was instructed to call the office with any questions and/or concerns documented in this encounter [facility] 04-13-2023 Miscellaneous Notes ----- Message from Xuan Meyers sent at 04/13/2023 1:45 PM EDT ----- Regarding: ortho/reschedule appt Subject Line Format: Orthopedics / [Provider Name or Open & Body Part ] / [Issue] Patient has been identified by name and Date of (Y/N): y Patient: Tasneem Rizzo Date of : 1950 Previous Provider Seen: olya Body Part(s) Identified: r elbow Diagnosis/Reason For Visit: reschedule appt Reason for the call/escalation: pt went wrong location for 04/13 appt would like to reschedule appt as soon as possible to remove cast If reason for call/escalation is discharge from ED/ER or Hospital, which facility was the patient seen at: na Was an appointment scheduled (Y/N): n Person calling if other than patient: abhi Return call to if other than patient: abhi Best contact number: [phone] Thank you, Xuan Meyers April 13, 2023 1:46 PM documented in this encounter [facility] 04-08-2023 Miscellaneous Notes Monika with [facility] called to ask when Pt last influenza vaccine she had with us was. I let her know the last one we did was 04/29/21. I saw one done at an external location 11/03/22, but it wouldn't let me open it up to be able to get any information. documented in this encounter [facility] 03-27-2023 Note HNO ID: [id number] Author: Note, Interface Service: ? Author Type: ? Type: Progress Notes Filed: 03/27/2023 3:06 AM Note Text: Epic Scheduled Downtime: 03/27/2023 1:02:01 AM to 03/27/2023 2:21:01 AM [facility] 03-22-2023 History of Past i llness Narrative Problem Noted Date Diagnosed Date Resolved Date Hypotension 03/22/2023 03/26/2023 Hypovolemic shock 03/20/2023 03/26/2023 Respiratory infection 02/07/20122011 Sally-en-Y varices 05/20/2010 05/20/2010 Acute bronchitis 09/18/2007 01/23/2010 Sprain of neck 07/14/2006 01/23/2010 Pain in joint, shoulder region 01/14/2006 01/23/2010 documented as of this encounter (statuses as of 04/08/2023) [facility] History of Past illness Narrative* Problem Noted Date Diagnosed Date Resolved Date Hypotension 03/22/2023 03/26/2023 Hypovolemic shock 03/20/2023 03/26/2023 Respiratory infection 02/07/20122011 Sally-en-Y varices 05/20/2010 05/20/2010 Acute bronchitis 09/18/2007 01/23/2010 Sprain of neck 07/14/2006 01/23/2010 Pain in joint, shoulder region 01/14/2006 01/23/2010 documented as of this encounter (statuses as of 04/15/2023) [facility] History of Past illness Narrative* Problem Noted Date Diagnosed Date Resolved Date Hypotension 03/22/2023 03/26/2023 Hypovolemic shock 03/20/2023 03/26/2023 Respiratory infection 02/07/20122011 Sally-en-Y varices 05/20/2010 05/20/2010 Acute bronchitis 09/18/2007 01/23/2010 Sprain of neck 07/14/2006 01/23/2010 Pain in joint, shoulder region 01/14/2006 01/23/2010 documented as of this encounter (statuses as of 04/16/2023) [facility] History of Past illness Narrative* Problem Noted Date Diagnosed Date Resolved Date Hypotension 03/22/2023 03/26/2023 Hypovolemic shock 03/20/2023 03/26/2023 Respiratory infection 02/07/20122011 Sally-en-Y varices 05/20/2010 05/20/2010 Acute bronchitis 09/18/2007 01/23/2010 Sprain of neck 07/14/2006 01/23/2010 Pain in joint, shoulder region 01/14/2006 01/23/2010 documented as of this encounter (statuses as of 05/30/2023) [facility] History of Past illness Narrative* Problem Noted Date Diagnosed Date Resolved Date Hypotension 03/22/2023 03/26/2023 Hypovolemic shock 03/20/2023 03/26/2023 Respiratory infection 02/07/20122011 Sally-en-Y varices 05/20/2010 05/20/2010 Acute bronchitis 09/18/2007 01/23/2010 Sprain of neck 07/14/2006 01/23/2010 Pain in joint, shoulder region 01/14/2006 01/23/2010 documented as of this encounter (statuses as of 06/16/2023) [facility] History of Past illness Narrative* Problem Noted Date Diagnosed Date Resolved Date Hypotension 03/22/2023 03/26/2023 Hypovolemic shock 03/20/2023 03/26/2023 Respiratory infection 02/07/20122011 Sally-en-Y varices 05/20/2010 05/20/2010 Acute bronchitis 09/18/2007 01/23/2010 Sprain of neck 07/14/2006 01/23/2010 Pain in joint, shoulder region 01/14/2006 01/23/2010 documented as of this encounter (statuses as of 06/20/2023) [facility] History of Past illness Narrative* Problem Noted Date Diagnosed Date Resolved Date Hypotension 03/22/2023 03/26/2023 Hypovolemic shock 03/20/2023 03/26/2023 Respiratory infection 02/07/20122011 Sally-en-Y varices 05/20/2010 05/20/2010 Acute bronchitis 09/18/2007 01/23/2010 Sprain of neck 07/14/2006 01/23/2010 Pain in joint, shoulder region 01/14/2006 01/23/2010 documented as of this encounter (statuses as of 10/21/2023) [facility] History of Past illness Narrative* Problem Noted Date Diagnosed Date Resolved Date Hypotension 03/22/2023 03/26/2023 Hypovolemic shock 03/20/2023 03/26/2023 Respiratory infection 02/07/20122011 Sally-en-Y varices 05/20/2010 05/20/2010 Acute bronchitis 09/18/2007 01/23/2010 Sprain of neck 07/14/2006 01/23/2010 Pain in joint, shoulder region 01/14/2006 01/23/2010 documented as of this encounter (statuses as of 10/27/2023) [facility] History of Present illness Narrative* Lizzie Meier APRN.BULKING MACHINE OPERATOR - 02/17/2023 12:47 PM EDT Chief Complaint Patient presents with: Anxiety HPI Tasneem Rizzo is a 72 year old female who presents here today for Above Complaints. Tasneem is an established patient of Dr. Pineda, DO and myself. Concerns today.. Anxiety: Per TE: Pt called in and reports she need Ativan refilled because she is having anxiety since her three months ago. She states she was in TCU when he in Hospice. Pt was cryingon the phone. I let the Pt know the last time it was prescribed for her was 06/17/21, so the provider may need to see her since it is a controled substance. The Pt yelled at me and hung up the phone, s tating she can't come in. In office today... Pt currently prescribed paxil 40 mg daily and wellbutrin BID. This regimen was working great until a few weeks ago. Just had this past week. Taking care of grandson with disabilities on her own now which is overwhelming. Feeling lostwithout him here. Tries to hold it all together for grandson but grandson is also having a heard time and taking it out on pt. Her was her main source of transportation recently so she is having trouble managing that as well. Past medical history, appointments, medications, allergies reviewed. Previous Medical History PAST MEDICAL HISTORY Diagnosis Date Chronic obstructive pulmonary disease (COPD) (HCC) Degeneration of intervertebral disc, site unspecified Depressive disorder, not elsewhere classified Esophageal reflux Hypothyroidism Obstructive sleep apnea Osteoporosis, unspecified Other affections of shoulder region, not elsewhere classified Previous Surgical History PAST SURGICAL HISTORY Procedure Laterality Date ARTHROSCOPY KNEE DIAGNOSTIC W/WO SYNOVIAL BX SPX Arthroscopy, knee DELIVERY ONLY , low cervical CHOLECYSTECTOMY Cholecystectomy IMPLANT MESH OPN HERNIA RPR/DEBRIDEMENT CLOSURE 03/06/07 PAST SURGICAL HISTORY OF 03/27/2004 gastric bypass RPR 1ST INGUN HRNA AGE 3 YRS/> REDUCIBLE Hernia repair, inguinal TONSILLECTOMY PRIMARY/SECONDARY <AGE 12 Tonsillectomy UNLIS LAPS PX HRNAP HERNIORRHAPHY HERNIOTOMY 03/06/07 Family History FAMILY HISTORY Problem Relation Age of Onset Breast Cancer Mother cva other (cva [Other]) Father Diabetes Father Borderline Diabetes Maternal Grandmother Patient Allergies ALLERGIES Allergen Reactions Maxidex [Dexamethas* Intolerance Nsaids (Non-Steroid* Intolerance not to take due to gastric bipass Boniva [Ibandronate] GI Upset Pain- hx gastric bypass. Intolerant to past biphosphonates. Sister with allergic response to reclast. Doxepin Intolerance AM hangover Current Medications Current Outpatient Medications on File Prior to Visit Medication Sig tiZANidine (ZANAFLEX) 4 mg tablet Take 1 tablet by mouth every 8 hours as needed (muscle spasms). cyclobenzaprine (FLEXERIL) 10 mg tablet Take 1 tablet by mouth three times daily as needed for muscle spasm. montelukast (SINGULAIR) 10 mg tablet Take 1 tablet by mouth daily at bedtime. For allergies IFEREX 150 150 mg iron capsule TAKE 1 TABLET BY MOUTH EVERY DAY WITH MEALS ergocalciferol 50,000 unit capsule (VITAMIN D2, DRISDOL) Take 1 capsule by mouth one time a week. buPROPion SR (ZYBAN SR; WELLBUTRIN SR) 150 mg 12 hr tablet Take 2 tablets PO in the AM and 1 tabletPO in the PM PARoxetine (PAXIL) 40 mg tablet Take 1 tablet by mouth once daily. blood sugar diagnostic (BLOOD GLUCOSE TEST) test strip Test blood sugar(s) 1 times daily. Dx: OtherDM Code hypoglycemia e16.2 Insulin: No famotidine (PEPCID) 20 mg tablet Take 1 tablet by mouth twice daily. potassium chloride ER (K-DUR, KLOR-CON) 20 mEq tablet Take 20 mEq by mouth twice daily with meals. ketoconazole (NIZORAL) 2 % cream APPLY TO THE AFFECTED AREA(S) at 600am and 1000pm acetaminophen (TYLENOL 8 HOUR ORAL) Take 1,000 mg by mouth three times daily. lisinopril 2.5 mg tablet Take 2.5 mg by mouth once daily. orkjnmb-bixwgjkgs-ohwavqy D3 500 mg(1,250mg) -200 unit per tablet TWICE DAILY WITH MEALS carvedilol (COREG) 12.5 mg tablet TAKE 1 TABLET BY MOUTH TWICE DAILY. must administer with a meal/food. furosemide (LASIX) 40 mg tablet Take 40 mg by mouth once daily. VITAMIN B COMPLEX ORAL Take by mouth. COMPOUNDED PRESCRIPTION Jobst stocking knee high with zipper 20-30 mmHg Dx:R60.0, S72.002A Calcium Citrate-Vitamin D3 500 mg calcium -400 unit Chew Take 1 Each by mouth daily with food. albuterol 90 mcg/Actuation INHALATION Aero Inhale 2 Puffs as instructed four times daily. USE DIRECTED gabapentin (NEURONTIN) 300 mg capsule Take 1 capsule by mouth three times daily for 90 days. gabapentin (NEURONTIN) 100 mg capsule Take 1-2 capsules by mouth three times daily for 30 days. (Add to 300 mg capsule three times a day) ondansetron orally disintegrating (ZOFRAN ODT) 4 mg disintegrating tablet Take 1 tablet by mouth every 8 hours as needed for nausea/vomiting. dexAMETHasone (DECADRON) 6 mg tablet Take 1 tablet by mouth twice daily with meals. ofloxacin (FLOXIN) 0.3 % otic solution Use 5 Drops in both ears twice daily. denosumab (PROLIA) 60 mg/mL Inject 1 mL subcutaneously once every 6 months. nystatin (NYSTOP) powder Apply 1 application to affected area twice daily. polyethylene glycol 3350 (MIRALAX, GLYCOLAX) 17 gram packet Take 17 g by mouth once daily. No current facility-administered medications on file prior to visit. Social History Social History Tobacco Use Smoking status: Former Packs/day: 0.50 Types: Cigarettes Quit date: 04/27/2015 Years since quittin.8 Smokeless tobacco: Never Substance Use Topics Alcohol use: No Drug use: No REVIEW OF SYSTEMS: as above Reviewed relevant PMHx, PSHx, Social Hx, current medications and allergies. Review of Symptoms REVIEW OF SYSTEMS See HPI. EXAM: BP 100/62 (BP Site: Left Arm, BP Position: Sitting, BP Cuff Size: Large Adult) Pulse 72 Resp 16 Wt 87.1 kg (192 lb) BMI 38.78 kg/m General Appearance: Well appearing, alert, in no acute distress, well-hydrated, well nourished.. Skin: Skin color, texture, turgor normal, no suspicious rashes or lesions. Head: Normocephalic, no masses, lesions, tenderness or abnormalities. Lungs: Lungs clear to auscultation. No wheezing, rhonchi, rales.. Heart: RRR without murmur, gallop, or rubs. No ectopy. Health Maintenance List SPIROMETRY Never done ALPHA-1 ANTITRYPSIN DEFICIENCY SCREENING Never done SHINGRIX VACCINE(1 of 2) Never done MAMMOGRAM due on 06/02/2017 INFLUENZA(1) due on 03/11/2023 COVID-19 VACCINE(5 - Pfizer series) due on 03/12/2023 ANNUAL PCP TEAM CHRONIC DISEASE VISIT due on 12/22/2023 DIABETES SCREEN due on 11/09/2024 COLORECTAL CANCER SCREENING due on 03/22/2025 DTAP,TDAP,TD(3 - Td or Tdap) due on 08/04/2026 LIPID SCREEN due on 11/09/2026 BONE DENSITY Completed HEPATITIS C SCREENING Completed PNEUMOCOCCAL: 65+ Completed ADVANCE DIRECTIVE DISCUSSION Discontinued ASSESSMENT/PLAN: 1. Grieving - ICD9: 309.0, ICD10: F43.21 (primary diagnosis) Controlled substance agreement signed and scanned into chart. Prescribed ativan TID prn x 1 month to help with grieving process and establishing a new normal. Pt understands side effects and short-term nature of this prescription. Continue other medications. - LORAZEPAM 0.5 MG TABLET PDMP website checked and validated. All prescriptions have been APPROPRIATELY filled. No suspiciousactivity was identified. 02/17/2023 by Lizzie Meier APRN.BULKING MACHINE OPERATOR 2. Situational anxiety - ICD9: 300.09, ICD10: F41.8 Controlled substance agreement signed. Prescribed ativan TID prn x 1 month to help with grieving process and establishing a new normal. Pt understands side effects and short-term nature of this prescription. - LORAZEPAM 0.5 MG TABLET 3. Bipolar 2 disorder, major depressive episode (HCC) - ICD9: 296.89, ICD10: F31.81 Stable. Refilled paxil. - LORAZEPAM 0.5 MG TABLET - PAROXETINE 40 MG TABLET RTO in 3 months, sooner if needed. Prescription instructions reviewed with patient as applicable. Potential red flag symptoms discussed with the patient. Reviewed appropriate action plan to take if red flag symptoms occur. Patient agreeable to treatment plan. Lizzie Ramey APRN.BULKING MACHINE OPERATOR [address] [place] [address] [facility] Miscellaneous Notes* Telephone Encounter - Elodia Nguyễn RN - 02/08/2023 9:28 AM EDT Patient called and notified that provider cannot prescribe medication unless she is seen provider. Patient states I think I make myself clear that I cannot come in then patient hung up. Elodia Nguyễn RN * Telephone Encounter - Sheyla Price LPN - 02/07/2023 4:03 PM EDT Faby is out this whole week. Attempted to phone pt . Phone just rings . Will need to try back . * Telephone Encounter - Kei Pineda DO - 02/07/2023 3:53 PM EDT Patient would need to be seen since I haven't seen her since September, unless Faby Solorio CNP is comfortable prescribing rx temporarily Kei Pineda DO * Telephone Encounter - Jayde Estrada RN - 02/07/2023 12:18 PM EDT Pt called in and reports she need Ativan refilled because she is having anxiety since her three months ago. She states she was in TCU when he in Hospice. Pt was cryingon the phone. I let the Pt know the last time it was prescribed for her was 06/17/21, so the provider may need to see her since it is a controled substance. The Pt yelled at me and hung up the phone, s tating she can't come in. Patient has been identified by name and date of : Yes, Provider Dr Pineda Date 02/07/23 Time 1219. Patient phones for refill(s): Requested Prescriptions Pending Prescriptions Disp Refills LORazepam (ATIVAN) 0.5 mg 30 tablet 2 Sig: Take 1 tablet by mouth twice daily as needed for up to 30 days. Date of last office visit in primary care: 12/21/22 Future visit: 03/23/23 Last 2 Encounter Wt Readings: Date: Wt: 12/21/2022 86.2 kg (190 lb) 04/28/2022 84.9 kg (187 lb 3.2 oz) Previous labs/tests for medication: Blood Pressure: BUN (mg/dL) Date Value 11/09/2021 24 05/07/2021 22 Sodium (mmol/L) Date Value 11/09/2021 139 05/07/2021 142 Last 1 Encounter BP Readings: Date: BP: 12/21/2022 130/78 Liver Function: ALT (U/L) Date Value 11/09/2021 19 05/07/2021 16 AST (U/L) Date Value 11/09/2021 23 05/07/2021 24 Please advise. Thank you. Jayde Estrada, LAMONT documented in this encounterPark[facility] Miscellaneous Notes* Telephone Encounter - Lorenza Carrasco LPN - 12/17/2022 9:11 AM EDT Hospital or facility patient was discharged from? [facility] Date of discharge? 12/13/22 How is patient feeling? Better Additional details: Per family Pt is doing PT well 4. Does the patient have any medication questions? NO 5. Any questions about going home instructions? NO documented in this encounterPark[facility] History of Present illness Narrative* Kei Pineda, DO - 09/20/2022 9:58 AM EDT CC: Tasneem Rizzo is a 72 year old female who presents to the office for follow up HPI: Seen in the office on 07/20/2022 Mood, taking Paxil 40 mg a day and wellbutrin 150 mg twice a day, recently has been having increased depressed mood, mostly thinks this is related to recent stressors with her health as below. Has support from her and sister, whom is at visit with her today, no SI Or HI or self harm. No SE with medication. Recently had left upper arm fracture on 07/11/22 when she fell and suffered a non displaced transverse fracture of the surgical neck proximal left humerus. She was seen in the EMERGENCY DEPARTMENT at [facility] and had xrays and imaging obtained. She was referred to Dr. Mickey Sanchez Orthopedic surgeon specialist who wants to have her in left arm / shoulder sling for 8 weeks to see if this will heal without surgery. She is keeping it in the sling and trying to do the stretches for the hand that she wasinstructed to do. Pain is being managed, is severe when her sister is trying to help her with cleaning up her skin etc. Currently Left humeral fracture, currently in PHYSICAL THERAPY, still having some pain, using muscle relaxantas needed, sees orthopedics . Using the flexeril and 300 mg 3 times a day of the gabapentin. Knows she is having a hard time relaxing enough to get a lot of benefit out of PHYSICAL THERAPY. She is interested in medication adjustment. + fatigue, obesity, weight gain after recent injury and humeral fracture. Knows needs to lose weight again. Knows that she doesn't eat a healthy diet. PAST MEDICAL HISTORY Diagnosis Date Chronic obstructive pulmonary disease (COPD) (HCC) Degeneration of intervertebral disc, site unspecified Depressive disorder, not elsewhere classified Esophageal reflux Hypothyroidism Obstructive sleep apnea Osteoporosis, unspecified Other affections of shoulder region, not elsewhere classified PAST SURGICAL HISTORY Procedure Laterality Date ARTHROSCOPY KNEE DIAGNOSTIC W/WO SYNOVIAL BX SPX Arthroscopy, knee DELIVERY ONLY , low cervical CHOLECYSTECTOMY Cholecystectomy IMPLANT MESH OPN HERNIA RPR/DEBRIDEMENT CLOSURE 03/06/07 PAST SURGICAL HISTORY OF 03/27/2004 gastric bypass RPR 1ST INGUN HRNA AGE 3 YRS/> REDUCIBLE Hernia repair, inguinal TONSILLECTOMY PRIMARY/SECONDARY <AGE 10 Tonsillectomy UNLIS LAPS PX HRNAP HERNIORRHAPHY HERNIOTOMY 03/06/07 Current Outpatient Medications Medication Sig cyclobenzaprine (FLEXERIL) 10 mg tablet Take 1 tablet by mouth three times daily as needed for muscle spasm. montelukast (SINGULAIR) 10 mg tablet Take 1 tablet by mouth daily at bedtime. For allergies IFEREX 150 150 mg iron capsule TAKE 1 TABLET BY MOUTH EVERY DAY WITH MEALS ergocalciferol 50,000 unit capsule (VITAMIN D2, DRISDOL) Take 1 capsule by mouth one time a week. buPROPion SR (ZYBAN SR; WELLBUTRIN SR) 150 mg 12 hr tablet Take 2 tablets PO in the AM and 1 tabletPO in the PM ondansetron orally disintegrating (ZOFRAN ODT) 4 mg disintegrating tablet Take 1 tablet by mouth every 8 hours as needed for nausea/vomiting. PARoxetine (PAXIL) 40 mg tablet Take 1 tablet by mouth once daily. blood sugar diagnostic (BLOOD GLUCOSE TEST) test strip Test blood sugar(s) 1 times daily. Dx: OtherDM Code hypoglycemia e16.2 Insulin: No dexAMETHasone (DECADRON) 6 mg tablet Take 1 tablet by mouth twice daily with meals. famotidine (PEPCID) 20 mg tablet Take 1 tablet by mouth twice daily. ofloxacin (FLOXIN) 0.3 % otic solution Use 5 Drops in both ears twice daily. potassium chloride ER (K-DUR, KLOR-CON) 20 mEq tablet Take 20 mEq by mouth twice daily with meals. ketoconazole (NIZORAL) 2 % cream APPLY TO THE AFFECTED AREA(S) at 600am and 1000pm acetaminophen (TYLENOL 8 HOUR ORAL) Take 1,000 mg by mouth three times daily. denosumab (PROLIA) 60 mg/mL Inject 1 mL subcutaneously once every 6 months. lisinopril 2.5 mg tablet Take 2.5 mg by mouth once daily. lmuiuds-gyzqjqqyq-oevddcn D3 500 mg(1,250mg) -200 unit per tablet TWICE DAILY WITH MEALS carvedilol (COREG) 12.5 mg tablet TAKE 1 TABLET BY MOUTH TWICE DAILY. must administer with a meal/food. furosemide (LASIX) 40 mg tablet Take 40 mg by mouth once daily. VITAMIN B COMPLEX ORAL Take by mouth. nystatin (NYSTOP) powder Apply 1 application to affected area twice daily. COMPOUNDED PRESCRIPTION Jobst stocking knee high with zipper 20-30 mmHg Dx:R60.0, S72.002A Calcium Citrate-Vitamin D3 500 mg calcium -400 unit Chew Take 1 Each by mouth daily with food. albuterol 90 mcg/Actuation INHALATION Aero Inhale 2 Puffs as instructed four times daily. USE DIRECTED gabapentin (NEURONTIN) 300 mg capsule Take 1 capsule by mouth three times daily for 90 days. polyethylene glycol 3350 (MIRALAX, GLYCOLAX) 17 gram packet Take 17 g by mouth once daily. Current Facility-Administered Medications Medication Dose Route Frequency perflutren lipid microspheres 1.3 mL in NaCl (PF) 0.9% 10 mL injection (DEFINITY) INTRAVENOUS DIRECTED PRN sodium chloride 0.9 % (flush) 10 mL (BD POSIFLUSH) 10 mL INTRAVENOUS DIRECTED PRN ALLERGIES Allergen Reactions Maxidex [Dexamethas* Intolerance Nsaids (Non-Steroid* Intolerance not to take due to gastric bipass Boniva [Ibandronate] GI Upset Pain- hx gastric bypass. Intolerant to past biphosphonates. Sister with allergic response to reclast. Doxepin Intolerance AM hangover Social History Tobacco Use Smoking status: Former Packs/day: 0.50 Types: Cigarettes Quit date: 04/27/2015 Years since quittin.4 Smokeless tobacco: Never Substance Use Topics Alcohol use: No Drug use: No ROS: See HPI PE: BP 112/60 Pulse 88 Temp (Src) 97.1 (Left Tympanic) Resp 20 Gen: A&OX3, NAD, non-toxic appearing HEENT: PERRLA, EOMs intact b/l, nares without drainage, pharynx without erythema, exudate, lesions,or drainage. Uvula midline. Neck: No LAD, no thyromegaly, no meningismus. CV: RRR, no murmur Lungs: CTA b/l, no wheezing Skin: No rashes, lesions, or wounds on exposed skin. Reduced left humerus/shoulder ROM due to frozen shoulder like restriction and pain No peripheral edema, normal pulses ASSESSMENT/PLAN: 1. Chronic left shoulder pain - ICD9: 719.41, 338.29, ICD10: M25.512, G89.29 (primary diagnosis) Had recent humerus fracture left side and proximal as well as has OA of the left shoulder that is significant, change flexeril to tizanidine, add on extra dose of gabapentin to see if pain is better controlled. Needs to be doing more exercises at home. Needs to add on daily protein shake and cut out sugar from her diet. - GABAPENTIN 100 MG CAPSULE 2. Closed nondisplaced fracture of surgical neck of left humerus with routine healing, unspecified fracture morphology, subsequent encounter - ICD9: V54.11, ICD10: S42.215D Had recent humerus fracture left side and proximal as well as has OA of the left shoulder that is significant, change flexeril to tizanidine, add on extra dose of gabapentin to see if pain is better controlled. Needs to be doing more exercises at home. Needs to add on daily protein shake and cut out sugar from her diet. - TIZANIDINE 4 MG TABLET - GABAPENTIN 100 MG CAPSULE 3. Pulmonary emphysema, unspecified emphysema type (HCC) - ICD9: 492.8, ICD10: J43.9 stable 4. Chronic pain syndrome - ICD9: 338.4, ICD10: G89.4 Had recent humerus fracture left side and proximal as well as has OA of the left shoulder that is significant, change flexeril to tizanidine, add on extra dose of gabapentin to see if pain is better controlled. Needs to be doing more exercises at home. Needs to add on daily protein shake and cut out sugar from her diet. 5. Fatigue, unspecified type - ICD9: 780.79, ICD10: R53.83 - . Needs to be doing more exercises at home. Needs to add on daily protein shake and cut out sugarfrom her diet. Kei Pineda DO Return if no improvement. Follow up with Kei Pineda DO. To ER if develops chest pain, shortness of breath Discussed risks, benefits, alternatives, and potential side effects of medications. Patient/Guardian expressed understanding and agreed with the plan. See patient instructions. Kei Pineda DO [address] [place] [address] documented in this encounterPark[facility] Miscellaneous Notes* Telephone Encounter - Gerardo Milligan APRN.CNP - 08/27/2022 3:08 PM EST Patient is seeing PT for fractured humerus. PT is recommending a muscle relaxer. The following approved medication requests have been transmitted electronically. Requested Prescriptions Signed Prescriptions Disp Refills cyclobenzaprine (FLEXERIL) 10 mg tablet 30 tablet 1 Sig: Take 1 tablet by mouth three times daily as needed for muscle spasm. Authorizing Provider: GERARDO MILLIGAN APRN.BULKING MACHINE OPERATOR documented in this encounterParkview Health [facility]01-10-2023 History of Present illness Narrative* Kei Pineda, DO - 07/20/2022 11:29 AM EST CC: Tasneem Rizzo is a 72 year old female who presents to the office for follow up HPI: Mood, taking Paxil 40 mg a day and wellbutrin 150 mg twice a day, recently has been having increased depressed mood, mostly thinks this is related to recent stressors with her health as below. Has support from her and sister, whom is at visit with her today, no SI Or HI or self harm. No SE with medication. Recently had left upper arm fracture on 07/11/22 when she fell and suffered a non displaced transverse fracture of the surgical neck proximal left humerus. She was seen in the EMERGENCY DEPARTMENT at [facility] and had xrays and imaging obtained. She was referred to Dr. Mickey Sanchez Orthopedic surgeon specialist who wants to have her in left arm / shoulder sling for 8 weeks to see if this will heal without surgery. She is keeping it in the sling and trying to do the stretches for the hand that she wasinstructed to do. Pain is being managed, is severe when her sister is trying to help her with cleaning up her skin etc. PAST MEDICAL HISTORY Diagnosis Date Chronic obstructive pulmonary disease (COPD) (HCC) Degeneration of intervertebral disc, site unspecified Depressive disorder, not elsewhere classified Esophageal reflux Hypothyroidism Obstructive sleep apnea Osteoporosis, unspecified Other affections of shoulder region, not elsewhere classified PAST SURGICAL HISTORY Procedure Laterality Date ARTHROSCOPY KNEE DIAGNOSTIC W/WO SYNOVIAL BX SPX Arthroscopy, knee DELIVERY ONLY , low cervical CHOLECYSTECTOMY Cholecystectomy IMPLANT MESH OPN HERNIA RPR/DEBRIDEMENT CLOSURE 03/06/07 PAST SURGICAL HISTORY OF 03/27/2004 gastric bypass RPR 1ST INGUN HRNA AGE 3 YRS/> REDUCIBLE Hernia repair, inguinal TONSILLECTOMY PRIMARY/SECONDARY <AGE 10 Tonsillectomy UNLIS LAPS PX HRNAP HERNIORRHAPHY HERNIOTOMY 03/06/07 Social History: Social History Tobacco Use Smoking status: Former Packs/day: 0.50 Types: Cigarettes Quit date: 04/27/2015 Years since quittin.2 Smokeless tobacco: Never Substance Use Topics Alcohol use: No Drug use: No FAMILY HISTORY Problem Relation Age of Onset Breast Cancer Mother cva other (cva [Other]) Father Diabetes Father Borderline Diabetes Maternal Grandmother Current Outpatient prescriptions: ondansetron orally disintegrating (ZOFRAN ODT) 4 mg disintegrating tablet^Take 1 tablet by mouth every 8 hours as needed for nausea/vomiting.^Disp: 30 tablet^Rfl: 2 PARoxetine (PAXIL) 40 mg tablet^Take 1 tablet by mouth once daily.^Disp: 90 tablet^Rfl: 1 blood sugar diagnostic (BLOOD GLUCOSE TEST) test strip^Test blood sugar(s) 1 times daily. Dx: OtherDM Code hypoglycemia e16.2 Insulin: No^Disp: 50 Strip^Rfl: 11 dexAMETHasone (DECADRON) 6 mg tablet^Take 1 tablet by mouth twice daily with meals.^Disp: 6 tablet^Rfl: 0 famotidine (PEPCID) 20 mg tablet^Take 1 tablet by mouth twice daily.^Disp: 60 tablet^Rfl: 3 ofloxacin (FLOXIN) 0.3 % otic solution^Use 5 Drops in both ears twice daily.^Disp: 5 mL^Rfl: 0 potassium chloride ER (K-DUR, KLOR-CON) 20 mEq tablet^Take 20 mEq by mouth twice daily with meals.^Disp: ^Rfl: ketoconazole (NIZORAL) 2 % cream^APPLY TO THE AFFECTED AREA(S) at 600am and 1000pm^Disp: ^Rfl: acetaminophen (TYLENOL 8 HOUR ORAL)^Take 1,000 mg by mouth three times daily.^Disp: ^Rfl: denosumab (PROLIA) 60 mg/mL^Inject 1 mL subcutaneously once every 6 months.^Disp: 1 mL^Rfl: 1 lisinopril 2.5 mg tablet^Take 2.5 mg by mouth once daily.^Disp: ^Rfl: euvnjyp-imfudmqoh-ozckbod D3 500 mg(1,250mg) -200 unit per tablet^TWICE DAILY WITH MEALS^Disp: ^Rfl: carvedilol (COREG) 12.5 mg tablet^TAKE 1 TABLET BY MOUTH TWICE DAILY. must administer with a meal/food.^Disp: ^Rfl: 11 furosemide (LASIX) 40 mg tablet^Take 40 mg by mouth once daily.^Disp: ^Rfl: 5 VITAMIN B COMPLEX ORAL^Take by mouth.^Disp: ^Rfl: nystatin (NYSTOP) powder^Apply 1 application to affected area twice daily.^Disp: 90 g^Rfl: 11 COMPOUNDED PRESCRIPTION^Jobst stocking knee high with zipper 20-30 mmHg Dx:R60.0, S72.002A^Disp: 1 Each^Rfl: 0 polyethylene glycol 3350 (MIRALAX, GLYCOLAX) 17 gram packet^Take 17 g by mouth once daily. ^Disp: ^Rfl: Calcium Citrate-Vitamin D3 500 mg calcium -400 unit Chew^Take 1 Each by mouth daily with food.^Disp: 30 tablet^Rfl: 11 albuterol 90 mcg/Actuation INHALATION Aero^Inhale 2 Puffs as instructed four times daily. USE DIRECTED^Disp: 3 Inhaler^Rfl: 3 gabapentin (NEURONTIN) 300 mg capsule^Take 1 capsule by mouth three times daily for 90 days.^Disp: 270 capsule^Rfl: 1 montelukast (SINGULAIR) 10 mg tablet^Take 1 tablet by mouth daily at bedtime. For allergies^Disp: 90 tablet^Rfl: 1 IFEREX 150 150 mg iron capsule^TAKE 1 TABLET BY MOUTH EVERY DAY WITH MEALS^Disp: 90 capsule^Rfl: 3 ergocalciferol 50,000 unit capsule (VITAMIN D2, DRISDOL)^Take 1 capsule by mouth one time a week.^Disp: 12 capsule^Rfl: 3 triamcinolone acetonide (KENALOG) 0.1 % cream^Apply 1 application to affected area twice daily. Forear eczema/psoriasis, Apply sparingly to area for rash/itching.^Disp: 30 g^Rfl: 1 buPROPion SR (ZYBAN SR; WELLBUTRIN SR) 150 mg 12 hr tablet^Take 2 tablets PO in the AM and 1 tabletPO in the PM^Disp: 90 tablet^Rfl: 3 Allergies: ALLERGIES Allergen Reactions Maxidex [Dexamethas* Intolerance Nsaids (Non-Steroid* Intolerance not to take due to gastric bipass Boniva [Ibandronate] GI Upset Pain- hx gastric bypass. Intolerant to past biphosphonates. Sister with allergic response to reclast. Doxepin Intolerance AM hangover ROS: See HPI PE: 07/20/22 1040 BP: 120/64 Pulse: 64 Resp: 20 Temp: (!) 35.7 C (96.3 F) TempSrc: Left Tympanic Gen: A&O, NAD, non-toxic appearing, sullen appearing, well dressed, cooperative HEENT: NT/AC, PERRLA, EOMs intact b/l, nares clear and patent b/l, pharynx without erythema, exudate or lesions. Uvula midline. EACs with eczema skin changes without erythema or debris. TMs pearly [place] with intact landmarks b/l. Neck: supple, No cervical LAD, no thyromegaly, no carotid bruits CV: RRR, normal S1 and S2, no murmurs, no gallops, no rubs, Pulses 2+ and symmetric in UE and LE b/l Lungs: normal respiratory effort, CTA b/l, no wheezing or rhonchi or rales MS:left arm in sling due to fracture Neuro: CN II-XII intact b/l Skin: warm, dry, intact, bruising present left upper arm/humerus area and pectoralis area on left No edema ASSESSMENT/PLAN: 1. Closed nondisplaced fracture of surgical neck of left humerus with routine healing, unspecified fracture morphology, subsequent encounter - ICD9: V54.11, ICD10: S42.215D (primary diagnosis) F/u with Dr. Arevalo, keep arm in sling, will likely need OT/PHYSICAL THERAPY after healed. 2. Seasonal allergic rhinitis due to other allergic trigger - ICD9: 477.8, ICD10: J30.89 rx refilled. - MONTELUKAST 10 MG TABLET 3. Iron deficiency anemia, unspecified iron deficiency anemia type - ICD9: 280.9, ICD10: D50.9 rx refilled. - IFEREX 150 150 MG IRON CAPSULE 4. Age-related osteoporosis without current pathological fracture - ICD9: 733.01, ICD10: M81.0 - Reviewed the need for Calcium and Vitamin D supplements and weight bearing exercise as tolerated - ERGOCALCIFEROL (VITAMIN D2) 1,250 MCG (50,000 UNIT) CAPSULE 5. Eczema of both external ears - ICD9: 380.22, ICD10: H60.543 - discussed skin care of rash - follow up if symptoms persist or worsen. - TRIAMCINOLONE ACETONIDE 0.1 % TOPICAL CREAM 6. Bipolar 2 disorder, major depressive episode (HCC) - ICD9: 296.89, ICD10: F31.81 Increase dose of Wellbutrin, continue paxil 40 mg a day, f/u in office in 8 weeks for mood - BUPROPION HCL SR 150 MG TABLET,12 HR SUSTAINED-RELEASE Kei Pineda DO To ER if develops chest pain, shortness of breath, or severe worsening of symptoms. Discussed risks, benefits, alternatives, and potential side effects of medications. Patient expressed understanding and agreed with the plan. Kei Pineda DO [address] [place] [address] documented in this encounterPark[facility]01-04-2023 Miscellaneous Notes* Telephone Encounter - Kei Pineda DO - 07/14/2022 7:50 AM EST Yes, agree with below recommendations. Will see her in office next week Kei Pineda DO * Telephone Encounter - Jayde Estrada RN - 07/13/2022 12:38 PM EST Pt called in and reports she fell on Tuesday and had an acute complete fracture across the left humeral neck. She states they immobilized it, but she thought it was loose and in a lot of pain. She states the earliest she could get in with her Orthopedic provider was on . There are no appointments open tonight. Told Pt to go back to the ER to help stabilize the arm until she can get in to see Ortho and give her more pain medication if necessary. Pt is schedules 07/20/[address] Pineda. documented in this encounterPark[facility]10-20-2022 Miscellaneous Notes* Telephone Encounter - Nicolle Sanabria Ma - 04/29/2022 10:28 AM EDT Pt informed, verbalized understanding Nicolle Sanabria Ma * Telephone Encounter - Lizzie Ramey APRN.CNP - 04/29/2022 10:23 AM EDT Since COVID is a viral infection, the z-lenin (antibiotic) likely will not help unless this has turned into a bacterial infection on top of COVID. Start cough medicine now. I would wait to start z-lenin unless no improvement in symptoms in 3-5 days. Thank you, Lizzie Ramey APRN.RAY * Telephone Encounter - Nicolle Sanabria Ma - 04/29/2022 9:11 AM EDT Pt informed, verbalized understanding. Pt asking if she can start zpak and cough medicine prescribed 04/28? Please advise Nicolle Sanabria Ma * Telephone Encounter - Lizzie Ramey APRN.CNP - 04/29/2022 7:42 AM EDT Please call patient and let her know COVID was positive. Pt is past the 5 day quarantine process that the CDC recommends. Thank you, Lizzie Ramey APRN.RAY documented in this encounterParkview [facility]10-19-2022 Miscellaneous Notes* Telephone Encounter - Kim Cortez LPN - 04/28/2022 4:28 PM EDT Pt. informed. Kim Cortez LPN * Telephone Encounter - Lizzie Ramey APRN.CNP - 04/28/2022 4:23 PM EDT Please call patient and let her know that chest x-ray was negative for pneumonia. Continue plan of care as discussed. We will let her know COVID results once they come back. Thank you, Lizzie Ramey APRN.BULKING MACHINE OPERATOR documented in this encounterParkview Health [facility]10-19-2022 History of Present illness Narrative* Lizzie Ramey APRN.CNP - 04/28/2022 11:00 AM EDT Chief Complaint Patient presents with: Cough: Cough, nasal draianage , headaches, body aches,chest hurts started tuesday HPI Tasneem Rizzo is a 72 year old female who presents here today for Above Complaints.. Tasneem is an established patient of Dr. Pineda and myself. Concerns today.. Cough/sore throat-- Started as congestion, sore throat, headache and unproductive cough since Tuesday. Progressively getting worse. Much worse the past few days. Sore throat has improved. All other sysptoms remain. Low-grade fever at home the last few days. Hx of asthma and COPD. Denies needing inhaler more with recent illness. Denies any wheezing but does report breathing to be more difficult when lying down at night. No COVID testing at home. Has tried mucinex, alkaseltzer plus tablets, and OTC cough synrup with no relief. Pt concerned about COVID. No other concerns or complaints. Past medical history, appointments, medications, allergies reviewed. Previous Medical History PAST MEDICAL HISTORY Diagnosis Date Chronic obstructive pulmonary disease (COPD) (HCC) Degeneration of intervertebral disc, site unspecified Depressive disorder, not elsewhere classified Esophageal reflux Hypothyroidism Obstructive sleep apnea Osteoporosis, unspecified Other affections of shoulder region, not elsewhere classified Previous Surgical History PAST SURGICAL HISTORY Procedure Laterality Date ARTHROSCOPY KNEE DIAGNOSTIC W/WO SYNOVIAL BX SPX Arthroscopy, knee DELIVERY ONLY , low cervical CHOLECYSTECTOMY Cholecystectomy IMPLANT MESH OPN HERNIA RPR/DEBRIDEMENT CLOSURE 03/06/07 PAST SURGICAL HISTORY OF 03/27/2004 gastric bypass RPR 1ST INGUN HRNA AGE 3 YRS/> REDUCIBLE Hernia repair, inguinal TONSILLECTOMY PRIMARY/SECONDARY <AGE 10 Tonsillectomy UNLIS LAPS PX HRNAP HERNIORRHAPHY HERNIOTOMY 03/06/07 Family History FAMILY HISTORY Problem Relation Age of Onset Breast Cancer Mother cva other (cva [Other]) Father Diabetes Father Borderline Diabetes Maternal Grandmother Patient Allergies ALLERGIES Allergen Reactions Maxidex [Dexamethas* Intolerance Nsaids (Non-Steroid* Intolerance not to take due to gastric bipass Boniva [Ibandronate] GI Upset Pain- hx gastric bypass. Intolerant to past biphosphonates. Sister with allergic response to reclast. Doxepin Intolerance AM hangover Current Medications Current Outpatient Medications on File Prior to Visit Medication Sig buPROPion SR (ZYBAN SR; WELLBUTRIN SR) 150 mg 12 hr tablet Take 1 tablet by mouth twice daily. ondansetron orally disintegrating (ZOFRAN ODT) 4 mg disintegrating tablet Take 1 tablet by mouth every 8 hours as needed for nausea/vomiting. PARoxetine (PAXIL) 40 mg tablet Take 1 tablet by mouth once daily. gabapentin (NEURONTIN) 300 mg capsule Take 1 capsule by mouth three times daily for 90 days. montelukast (SINGULAIR) 10 mg tablet Take 1 tablet by mouth daily at bedtime. For allergies blood sugar diagnostic (BLOOD GLUCOSE TEST) test strip Test blood sugar(s) 1 times daily. Dx: OtherDM Code hypoglycemia e16.2 Insulin: No IFEREX 150 150 mg iron capsule TAKE 1 TABLET BY MOUTH EVERY DAY WITH MEALS ergocalciferol 50,000 unit capsule (VITAMIN D2, DRISDOL) Take 1 capsule by mouth one time a week. dexAMETHasone (DECADRON) 6 mg tablet Take 1 tablet by mouth twice daily with meals. (Patient not taking: No sig reported) famotidine (PEPCID) 20 mg tablet Take 1 tablet by mouth twice daily. ofloxacin (FLOXIN) 0.3 % otic solution Use 5 Drops in both ears twice daily. potassium chloride ER (K-DUR, KLOR-CON) 20 mEq tablet Take 20 mEq by mouth twice daily with meals. ketoconazole (NIZORAL) 2 % cream APPLY TO THE AFFECTED AREA(S) at 600am and 1000pm acetaminophen (TYLENOL 8 HOUR ORAL) Take 1,000 mg by mouth three times daily. denosumab (PROLIA) 60 mg/mL Inject 1 mL subcutaneously once every 6 months. (Patient not taking: Eunig reported) lisinopril 2.5 mg tablet Take 2.5 mg by mouth once daily. awynele-ohjkgagfn-spqlxcm D3 500 mg(1,250mg) -200 unit per tablet TWICE DAILY WITH MEALS carvedilol (COREG) 12.5 mg tablet TAKE 1 TABLET BY MOUTH TWICE DAILY. must administer with a meal/food. furosemide (LASIX) 40 mg tablet Take 40 mg by mouth once daily. VITAMIN B COMPLEX ORAL Take by mouth. nystatin (NYSTOP) powder Apply 1 application to affected area twice daily. COMPOUNDED PRESCRIPTION Jobst stocking knee high with zipper 20-30 mmHg Dx:R60.0, S72.002A polyethylene glycol 3350 (MIRALAX, GLYCOLAX) 17 gram packet Take 17 g by mouth once daily. Calcium Citrate-Vitamin D3 500 mg calcium -400 unit Chew Take 1 Each by mouth daily with food. albuterol 90 mcg/Actuation INHALATION Aero Inhale 2 Puffs as instructed four times daily. USE DIRECTED Current Facility-Administered Medications on File Prior to Visit Medication perflutren lipid microspheres 1.3 mL in NaCl (PF) 0.9% 10 mL injection (DEFINITY) sodium chloride 0.9 % (flush) 10 mL (BD POSIFLUSH) Social History Social History Tobacco Use Smoking status: Former Packs/day: 0.50 Types: Cigarettes Quit date: 04/27/2015 Years since quittin.0 Smokeless tobacco: Never Substance Use Topics Alcohol use: No Drug use: No REVIEW OF SYSTEMS: as above Reviewed relevant PMHx, PSHx, Social Hx, current medications and allergies. Review of Symptoms REVIEW OF SYSTEMS See HPI. EXAM: BP 130/80 (BP Site: Left Arm, BP Position: Sitting, BP Cuff Size: Large Adult) Pulse 113 Temp 36.7 C (98.1 F) Wt 84.9 kg (187 lb 3.2 oz) SpO2 95% BMI 37.81 kg/m General Appearance: Well appearing, alert, in no acute distress, well-hydrated, well nourished.. Skin: Skin color, texture, turgor normal, no suspicious rashes or lesions. Head: Normocephalic, no masses, lesions, tenderness or abnormalities. Eyes: Anicteric sclera. Pupils are equally round and reactive to light. Extraocular movements are intact. . Nose/Sinuses: Nares normal, septum midline, mucosa normal, no drainage or sinus tenderness. Oropharynx: Lips, mucosa, and tongue normal, teeth and gums normal, oropharynx normal. Neck: Supple, no adenopathy; thyroid symmetric, normal size, no bruits. Back:no pain to palpation of vertebrae, good flexion and extension, good range of motion, no muscletenderness, reflexes are 2+ and symmetric, motor and sensory appear to be normal, negative SLR test, no evidence of scoliosis Lungs: Lungs clear to auscultation. No wheezing, rhonchi, rales.. Heart: RRR without murmur, gallop, or rubs. No ectopy. Health Maintenance List SPIROMETRY Never done ALPHA-1 ANTITRYPSIN DEFICIENCY SCREENING Never done SHINGRIX VACCINE(1 of 2) Never done MAMMOGRAM due on 06/02/2017 ADVANCE DIRECTIVE DISCUSSION Never done COVID-19 VACCINE(4 - Booster for Pfizer series) due on 07/14/2021 INFLUENZA(1) due on 03/11/2022 COLORECTAL CANCER SCREENING due on 05/06/2022 ANNUAL PCP TEAM CHRONIC DISEASE VISIT due on 03/04/2023 DIABETES SCREEN due on 11/09/2024 DTAP,TDAP,TD(3 - Td or Tdap) due on 08/04/2026 LIPID SCREEN due on 11/09/2026 BONE DENSITY Completed HEPATITIS C SCREENING Completed PNEUMOCOCCAL: 65+ Completed ASSESSMENT/PLAN: 1. Acute cough - ICD9: 786.2, ICD10: R05.1 (primary diagnosis) COVID/flu testing to rule out. Chest x-ray today to rule out pneumonia. Cough syrup with codeine -- no relief with tessalon perles. Given z-lenin as delayed rx. Do not start until results from COVID are discussed. If negative, start z-lenin. If symptoms do not improve or worsen within 3-5 days, will consider prednisone. - AZITHROMYCIN 250 MG TABLET - COVID WITH FLUA+B, ROUTINE - XR CHEST 2V FRONTAL/LAT - CODEINE 10 MG-GUAIFENESIN 100 MG/5 ML ORAL LIQUID 2. Sore throat - ICD9: 462, ICD10: J02.9 See above. - AZITHROMYCIN 250 MG TABLET - COVID WITH FLUA+B, ROUTINE - XR CHEST 2V FRONTAL/LAT - CODEINE 10 MG-GUAIFENESIN 100 MG/5 ML ORAL LIQUID RTO as needed if symptoms worsen or do not improve. Prescription instructions reviewed with patient as applicable. Potential red flag symptoms discussed with the patient. Reviewed appropriate action plan to take if red flag symptoms occur. Patient agreeable to treatment plan. Lizzie Ramey APRN.BULKING MACHINE OPERATOR [address] [place] [address] documented in this encounterParkview Health [facility]10-04-2022 History of Present illness Narrative* Vinnie Palomino, PT - 04/13/2022 8:58 AM EDT Episode Visit Count: 3 Therapist That Will Accept/Oversee The Plan Of Care: Vinnie Palomino Start of Care Date: 03/11/22 Onset Date: ( years ) Plan of Care Certification Date: 03/11/22 Next Certification Due Date: 04/15/22 Patient Identified by Name and Date of : Yes REHABILITATION AND SPORTS THERAPY PHYSICAL THERAPY TREATMENT NOTE ASSESSMENT: Tasneem Rizzo tolerated the session with decreased symptoms. She demonstrated difficulty with STS. The patient will continue to benefit from ongoing skilled physical therapy to progresstoward set goals. PLAN FOR NEXT VISIT: 4 stage balance test. Progress cervical mobility and BLE strength SUBJECTIVE: Patient Reason for Visit: Pt states feeling a little more stable today. Pt reports being on some medications that make her dizzy. pt reports being faithful with her exercises, but seems ot get SOB with doing them. Pt reports that the massage felt better after last session. Pain: Pain Pain Level: 5 Pain Location: Neck Description: Stiffness;Aching Frequency: Continuous Post Treatment Pain Post Treatment Pain Level: Better Post Treatment Pain Location: Neck Post Treatment Pain Description: Aching OBJECTIVE MEASURES WITH LEVEL OF FUNCTION: Increased motion noted with increased reps of cervical rotation. TREATMENT: Therapeutic Exercise: 1: *Cervical rotation AROM x10 B (limited looking L) 2: B levator scap stretch 2x30 seconds B 3: L cervical Scalene stretch seated 2 x 30 seconds 4: *LAQ x 10 BLE with 5 second holds 5: *Seated marching x 10 BLE 6: STS 2x5 (pt fatigued after 5 reps) Skilled Intervention: Patient was educated in proper exercise technique and purpose for exercises. Reviewed and educated patient on additions/changes for home exercise program as above (*). Skilled judgment was provided in selection of appropriate interventions. Provided written instruction for home exercise program to facilitate proper performance and compliance. Correct performance of therapeutic exercises was facilitated with verbal and visual cuing. Manual Therapy: 1: STM to R upper trap, scalenes, and levator x 10 minutes Skilled Intervention: Manual skills to improve joint mobility, ROM, and decrease pain. Utilized anatomy knowledge of the therapist, and assessment of patient's response to intervention. Self-Longterm Management: 1: Discussed using a walker or rollator to decrease fal lrisk and increase stability. Skilled Intervention: Skilled judgment in the selection of proper modification for activity of daily living/home management based on clinical presentation, deficits, and needs. Correct performance of home program was facilitated with verbal cueing. Billing Therapeutic Exercise Treatment Minutes: 26 Manual TherapyTreatment Minutes: 10 Self-Care/Home Management Treatment Minutes: 4 Total Treatment Time Minutes (timed/untimed): 40 RANJEET Franco PT documented in this encounterPark[facility] History of Present illness Narrative* Vinnie Palomino PT - 03/30/2022 9:08 AM EDT Episode Visit Count: 2 Therapist That Will Accept/Oversee The Plan Of Care: Vinnie Palomino Start of Care Date: 03/11/22 Onset Date: ( years ) Plan of Care Certification Date: 03/11/22 Next Certification Due Date: 04/15/22 Patient Identified by Name and Date of : Yes REHABILITATION AND SPORTS THERAPY PHYSICAL THERAPY TREATMENT NOTE ASSESSMENT: Tasneem Rizzo tolerated the session with decreased symptoms. She demonstrated difficulty with ambulation. The patient will continue to benefit from ongoing skilled physical therapy to progress toward set goals. Pt had loss of balance entering clinic. Gait belt donned for pt to leave session. PIECE PRESSER assisted pt to front entrance upon leaving, pt had 1 bout of LOB in therapy lobby and Mod A given at gait belt for correction. Pt then escorted the rest of the way to the front entrance with gait belt without difficulty. Verbal cues given to lift BLE. PLAN FOR NEXT VISIT: 4 stage balance test , functional strengthening of BLE extremities. Discuss possible use of rollator or walker. SUBJECTIVE: Patient Reason for Visit: Pt reports being sick and is confused and tired today. Pt ambulating with 1 cane, pt almost fell 2 times walking from [facility] to treatment room her shoes were sticking to the floor or she wasn't picking her feet up , not sure what happend per pt's report. Pt 15 minutes late this visit. Pain: Pain Pain Level: 5 (increases with movement) Pain Location: Neck Description: Aching Frequency: Continuous Post Treatment Pain Post Treatment Pain Level: 2 Post Treatment Pain Location: Neck Post Treatment Pain Description: Aching OBJECTIVE MEASURES WITH LEVEL OF FUNCTION: Pt safely escorted to main entrance doors with gait belt donned. TREATMENT: Therapeutic Exercise: 1: Discussed completing 4 stage balance test next session due to pt feeling more unsteady than normal today and due to shoes sticking to the floor 2: R levator stretch 3x15 second holds 3: L cervical Scalene stretch seated 2 x 30 seconds 4: LAQ x 10 BLE 5: Seated marching x 10 BLE Skilled Intervention: Patient was educated in proper exercise technique and purpose for exercises. Skilled judgment was provided in selection of appropriate interventions. Correct performance of therapeutic exercises was facilitated with verbal and visual cuing. Patient education as noted. Manual Therapy: 1: STM to R upper trap, scalenes, and levator x 15 minutes Skilled Intervention: Manual skills to improve joint mobility, ROM, and decrease pain. Utilized anatomy knowledge of the therapist, and assessment of patient's response to intervention. Billing Therapeutic Exercise Treatment Minutes: 10 Manual TherapyTreatment Minutes: 15 Self-Care/Home Management Treatment Minutes: 10 Total Treatment Time Minutes (timed/untimed): 45 RANJEET Franco PT documented in this encounterPark[facility]-19-[facility] Miscellaneous Notes* Telephone Encounter - Iram Barnett RN - 03/29/2022 12:34 PM EDT Patient calls and notified of results. Patient verbalizes understanding. Iram Barnett RN * Telephone Encounter - Lorenza Carrasco LPN - 03/29/2022 11:53 AM EDT TC to pt. LM to call office, ask for triage nurse to get results. Lorenza Carrasco LPN * Telephone Encounter - Gerardo Milligan APRN.CNP - 03/29/2022 7:46 AM EDT Please let patient know that her Cologuard test was negative. Gerardo Milligan APRN.RAY documented in this encounterPark[facility]-01-[facility] History of Present illness Narrative* Vinnie Palomino, PT - 03/11/2022 12:18 PM EDT Episode Visit Count: 1 Therapist That Will Oversee The Plan Of Care: Vinnie Palomino Start of Care Date: 03/11/22 Onset Date: ( years ) Plan of Care Certification Date: 03/11/22 Next Certification Due Date: 04/15/22 Patient Identified by Name and Date of : Yes REHABILITATION AND SPORTS THERAPY PHYSICAL THERAPY EVALUATION PLAN OF CARE: Assessment: Tasneem Rizzo presents with chief complaint of neck pain, balance, and decreased functional strength that interferes with stair negotiation;walking . She presents with impairments in ADL's, balance, overall function, and strength . Prognosis for therapy is Good due to: current objective clinical presentation . Pt would benefit from a functional strengthening program and a neck mobility program She will benefit from skilled therapy services to meet the goals established for this plan of care as noted below. Goals for Episode of Care: created on 03/11/22 through 06/03/22 Pt will report no falls Pt will demo LE strength 4+/5 for improved balance and return to walking with only 1 cane needed in10 weeks or less Pt will demo 30 sec STS score of 10 without UE support to demo imporved LE functional strength in 12 weeks or less [place] in home exercise program. Patient Goals: Pt would like to walk straighter, be more balanced, and decrease neck pain Planned Interventions, Frequency, and Duration: Current Frequency: 2x/week Duration: 4 weeks Total Number of Visits Planned: 8 Planned Treatment Interventions: Therapeutic exercise (72209);Neuromuscular re- education (19735);Manual therapy (58135);Therapeutic activities (96627);Self- halfway management (36533);Patient/Family/Caregiver Education PLAN FOR NEXT VISIT: 4 stage balance test. assess reaction to HEP and progress neck mobility. functional strengthening of the LE's. Patient demonstrates good understanding of plan of care and treatment. The above goals and plan of care were discussed and agreed upon by patient/family. SUBJECTIVE: Tasneem Rizzo is a 71 year old female seen today for Neck Pain. Bad balance. Hx of rods in the femurs. Walking with two canes and would like to walk with 1 cane. Pt states she has bad bones from smoking. Pain in the middle of the neck and can go out to the shoulders. Pt reprots getting LANTIGUA's a couple a week. Does get popping in the neck Patient Goals: Pt would like to walk straighter, be more balanced, and decrease neck pain Functional Limitations: stair negotiation;walking Prior Level of Function: Independent without limitations Relevant History Preferred Language: Estonian Intake Information: Prescription present Previous Treatment: None Falls Interview: No positive findings with falls interview Falls History # of falls in past year: 0 Red Flags Vertebral Fracture Red Flags: Female;Age >70 Vertebral Fracture Clinical Reasoning: Proceed with caution due to the above (1- 2) risk factors Cancer Red Flags: Age >50 or <20 Cancer Clinical Reasoning: No identified risk factors. Red Flags - Cervical Cancer Red Flags: Age >50 or <20 Cancer Clinical Reasoning: No identified risk factors. Pain: Pain Pain Location: Neck PROMIS Scales Higher is Better 11/24/2016 GH Physical - Percentile 1 % GH Mental - Percentile 5 % T-scores: mean of general population = 50. 5 points is clinically meaningfully difference Percentiles provide an indication of how the patient's score ranks in relation to the general population. Higher percentile rankings indicate better function/quality of life. 50th percentile is the average of the general population and indicates half of respondents had a worse score. T-scores: mean of general population = 50. 5 points is clinically meaningfully difference Percentiles provide an indication of how the patient's score ranks in relation to the general population. Higher percentile rankings indicate better function/quality of life. 50th percentile is the average of the general population and indicates half of respondents had a worse score. OBJECTIVE MEASURES WITH LEVEL OF FUNCTION: Posture / Alignment Posture: Forward head;Rounded shoulders Cervical Spine ROM Cervical ROM : Limitation AROM Cervical Flexion AROM: Minimal limitation;Increased pain Cervical Extension AROM: Normal Cervical Side-Bend Right AROM: Moderate limitation;Increased pain Cervical Side-Bend Left AROM: Minimal limitation Cervical Rotation Right AROM: Minimal limitation Cervical Rotation Left AROM: Minimal limitation UE AROM R UE AROM: WNL L UE AROM: WNL LE AROM R LE AROM: WFL L LE AROM: WFL LE Strength R Hip Extension: 3/5 R Hip Flexion (L2): 3+/5 R Knee Extension (L3): 4/5 R Ankle Dorsiflexion (L4): 5/5 L Hip Extension: 3/5 L Hip Flexion (L2): 4-/5 L Knee Extension (L3): 4/5 L Ankle Dorsiflexion (L4): 5/5 Gait Gait: Modified Independent Gait Distance (feet): 50 Gait Device: Cane (x2) Functional Performance Test Results 30 Second Chair Stand Test: 4 reps Education: Education Learning Preferences: Demonstration;Explanation;Performance;Printed Materials Barriers: None Learning/educational needs: Plan of Care;Home exercise program;Safety Education Provided: Yes, see treatment interventions for education provided Education Provided To: Patient Education Mode/Type: Demonstration;Explanation/Discussion;Literature/Printed Materials;Performance Response to Education/Teach Back: States/Identifies;Return Demonstration TREATMENT: PT Treatment Interventions: Therapeutic Exercise Evaluation Therapeutic Exercise: 1: Discussed therapy goals exam findings and purpose of the HEP. HEP handout provided. 2: STS exercise discussed 3: L cervical Scalene stretch seated 2 x 30 seconds Skilled Intervention: Patient was educated in proper exercise technique and purpose for exercises. Skilled judgment was provided in selection of appropriate interventions. Provided written instruction for home exercise program to facilitate proper performance and compliance. Billing * Evaluation Low Complexity: 1 Unit Therapeutic Exercise Treatment Minutes: 15 Total Treatment Time Minutes (timed/untimed): 45 Vinnie Palomino PT documented in this encounterPark[facility]-31-[facility] History of Present illness Narrative* Shanta Stratton RT(R) - 03/10/2022 10:40 AM EDT Radiology Service Progress Note PATIENT NAME: Tasneem Rizzo DATE OF SERVICE: March 10, 2022 TIME: 10:24 AM PATIENT IDENTITY VERIFICATION COMPLETED USING TWO (2) IDENTIFIERS: Name and Date of confirmedby patient verbally. FALL SCREENING: Has the patient had 2 falls in the last year or 1 fall with injury or currently using an Ambulatory Assistive Device (Walker, Cane, Wheelchair, Crutches, etc.)? Yes, Patient High Riskfor Falls What interventions were put in place to prevent falls during this visit? Increased Observations by Caregivers PATIENT GENDER DATA: Female. status: : No status: NO. PATIENT RELEVANT IMPLANT DATA REVIEWED: Yes RADIOLOGY DEPARTMENT: General X-ray: Exam(s) Completed: Spine X-Ray(s): Cervical AP / LAT / OBL PERIPHERAL IV DATA: Not applicable SIGNED BY: RT Jeremy(R) March 10, 2022 10:24 AM documented in this encounterParkview [facility]08-25-2022 Instructions* Patient Instructions* Gerardo Milligan APRN.CNP - 03/04/2022 1:24 PM EDT Schedule with PT. We'll fax your consult to [facility] and expect them to call you to schedule. Have your xray completed. I sent your medications to [facility]. documented in this encounterPark[facility]08-25-2022 History of Present illness Narrative* Gerardo Milligan APRN.CNP - 03/04/2022 12:56 PM EDT Chief Complaint Patient presents with: Weight Check Neck Pain: 2/3 weeks Nausea HPI Tasneem Rizzo is a 71 year old female who presents here today for Above Complaints.. Starting weight: 184 pounds Month #1: 185 pounds Month #2 (today): 185 pounds Today: Didn't take her diuretic this morning. Feels like her clothes are looser. Cutting back on breads and sweets. Unable to do much exercising. Would like to get back into therapy. Past medical history, appointments, medications, allergies reviewed. Previous Medical History PAST MEDICAL HISTORY Diagnosis Date Chronic obstructive pulmonary disease (COPD) (HCC) Degeneration of intervertebral disc, site unspecified Depressive disorder, not elsewhere classified Esophageal reflux Hypothyroidism Obstructive sleep apnea Osteoporosis, unspecified Other affections of shoulder region, not elsewhere classified Previous Surgical History PAST SURGICAL HISTORY Procedure Laterality Date ARTHROSCOPY KNEE DIAGNOSTIC W/WO SYNOVIAL BX SPX Arthroscopy, knee DELIVERY ONLY , low cervical CHOLECYSTECTOMY Cholecystectomy IMPLANT MESH OPN HERNIA RPR/DEBRIDEMENT CLOSURE 03/06/07 PAST SURGICAL HISTORY OF 03/27/2004 gastric bypass RPR 1ST INGUN HRNA AGE 3 YRS/> REDUCIBLE Hernia repair, inguinal TONSILLECTOMY PRIMARY/SECONDARY <AGE 12 Tonsillectomy UNLIS LAPS PX HRNAP HERNIORRHAPHY HERNIOTOMY 03/06/07 Family History FAMILY HISTORY Problem Relation Age of Onset Breast Cancer Mother cva other (cva [Other]) Father Diabetes Father Borderline Diabetes Maternal Grandmother Patient Allergies ALLERGIES Allergen Reactions Maxidex [Dexamethas* Intolerance Nsaids (Non-Steroid* Intolerance not to take due to gastric bipass Boniva [Ibandronate] GI Upset Pain- hx gastric bypass. Intolerant to past biphosphonates. Sister with allergic response to reclast. Doxepin Intolerance AM hangover Current Medications Current Outpatient Medications on File Prior to Visit Medication Sig Phentermine HCl (ADIPEX-P) 37.5 mg tablet Take 1 tablet by mouth once daily for 30 days. BMI 37.53 PARoxetine (PAXIL) 40 mg tablet Take 1 tablet by mouth once daily. gabapentin (NEURONTIN) 300 mg capsule Take 1 capsule by mouth three times daily for 90 days. montelukast (SINGULAIR) 10 mg tablet Take 1 tablet by mouth daily at bedtime. For allergies blood sugar diagnostic (BLOOD GLUCOSE TEST) test strip Test blood sugar(s) 1 times daily. Dx: OtherDM Code hypoglycemia e16.2 Insulin: No IFEREX 150 150 mg iron capsule TAKE 1 TABLET BY MOUTH EVERY DAY WITH MEALS ergocalciferol 50,000 unit capsule (VITAMIN D2, DRISDOL) Take 1 capsule by mouth one time a week. buPROPion SR (ZYBAN SR; WELLBUTRIN SR) 150 mg 12 hr tablet Take 1 tablet by mouth twice daily. famotidine (PEPCID) 20 mg tablet Take 1 tablet by mouth twice daily. ofloxacin (FLOXIN) 0.3 % otic solution Use 5 Drops in both ears twice daily. potassium chloride ER (K-DUR, KLOR-CON) 20 mEq tablet Take 20 mEq by mouth twice daily with meals. ketoconazole (NIZORAL) 2 % cream APPLY TO THE AFFECTED AREA(S) at 600am and 1000pm acetaminophen (TYLENOL 8 HOUR ORAL) Take 1,000 mg by mouth three times daily. lisinopril 2.5 mg tablet Take 2.5 mg by mouth once daily. kuilovk-rxayjonbo-gkgxjjg D3 500 mg(1,250mg) -200 unit per tablet TWICE DAILY WITH MEALS carvedilol (COREG) 12.5 mg tablet TAKE 1 TABLET BY MOUTH TWICE DAILY. must administer with a meal/food. furosemide (LASIX) 40 mg tablet Take 40 mg by mouth once daily. VITAMIN B COMPLEX ORAL Take by mouth. nystatin (NYSTOP) powder Apply 1 application to affected area twice daily. COMPOUNDED PRESCRIPTION Jobst stocking knee high with zipper 20-30 mmHg Dx:R60.0, S72.002A polyethylene glycol 3350 (MIRALAX, GLYCOLAX) 17 gram packet Take 17 g by mouth once daily. Calcium Citrate-Vitamin D3 500 mg calcium -400 unit Chew Take 1 Each by mouth daily with food. albuterol 90 mcg/Actuation INHALATION Aero Inhale 2 Puffs as instructed four times daily. USE DIRECTED dexAMETHasone (DECADRON) 6 mg tablet Take 1 tablet by mouth twice daily with meals. (Patient not taking: No sig reported) denosumab (PROLIA) 60 mg/mL Inject 1 mL subcutaneously once every 6 months. (Patient not taking: [place] reported) Current Facility-Administered Medications on File Prior to Visit Medication perflutren lipid microspheres 1.3 mL in NaCl (PF) 0.9% 10 mL injection (DEFINITY) sodium chloride 0.9 % (flush) 10 mL (BD POSIFLUSH) Social History Social History Tobacco Use Smoking status: Former Packs/day: 0.50 Types: Cigarettes Quit date: 04/27/2015 Years since quittin.8 Smokeless tobacco: Never Substance Use Topics Alcohol use: No Drug use: No Review of Symptoms REVIEW OF SYSTEMS See HPI, otherwise negative EXAM: BP 104/68 (BP Site: Left Arm, BP Position: Sitting, BP Cuff Size: Regular Adult) Pulse 77 Resp 16 Wt 84 kg (185 lb 3.2 oz) SpO2 96% BMI 37.41 kg/m General Appearance: Well appearing, alert, in no acute distress, well-hydrated, well nourished. andObese. Heart: RRR without murmur, gallop, or rubs. No ectopy. Health Maintenance List SPIROMETRY Never done ALPHA-1 ANTITRYPSIN DEFICIENCY SCREENING Never done SHINGRIX VACCINE(1 of 2) Never done MAMMOGRAM due on 06/02/2017 ADVANCE DIRECTIVE DISCUSSION Never done COVID-19 VACCINE(4 - Booster for Pfizer series) due on 09/16/2021 INFLUENZA(1) due on 03/11/2022 COLORECTAL CANCER SCREENING due on 05/06/2022 ANNUAL PCP TEAM CHRONIC DISEASE VISIT due on 03/04/2023 DIABETES SCREEN due on 11/09/2024 DTAP,TDAP,TD(3 - Td or Tdap) due on 08/04/2026 LIPID SCREEN due on 11/09/2026 BONE DENSITY Completed HEPATITIS C SCREENING Completed PNEUMOCOCCAL: 65+ Completed Data reviewed Previous records, office notes, OARRS report ASSESSMENT/PLAN: 1. Obesity, Class II, BMI 35-39.9 - ICD9: 278.00, ICD10: E66.9 (primary diagnosis) Tolerating Adipex well. Continue cutting back on starches/carbs/sweets. Start PT for better mobility. - PHENTERMINE 37.5 MG TABLET 2. Dyslipidemia - ICD9: 272.4, ICD10: E78.5 Tolerating Adipex well. Continue cutting back on starches/carbs/sweets. Start PT for better mobility. - PHENTERMINE 37.5 MG TABLET 3. Cervicalgia - ICD9: 723.1, ICD10: M54.2 PT consult for mobility. 4. Chronic pain syndrome - ICD9: 338.4, ICD10: G89.4 PT consult for mobility. 5. Diffuse myofascial pain syndrome - ICD9: 729.1, ICD10: M79.18 PT consult for mobility. 6. Spondylosis - ICD9: 721.90, ICD10: M47.9 PT consult for mobility. 7. Primary osteoarthritis involving multiple joints - ICD9: 715.98, ICD10: M15.9 PT consult for mobility. Gerardo Milligan APRN.CNP PDMP website checked and validated. All prescriptions have been APPROPRIATELY filled. No suspiciousactivity was identified. 03/04/2022 by Gerardo Milligan CNP. documented in this encounterParkview [facility]07-27-[facility] History of Present illness Narrative* Gerardo Milligan APRN.CNP - 02/03/2022 10:12 AM EDT Chief Complaint Patient presents with: Weight Check HPI Tasneem Rizzo is a 71 year old female who presents here today for Above Complaints. Starting weight: 184 pounds Month #1 (today): 185 pounds Today: Frustrated that her weight has gone up 1 pound over the next month. Cutting back on her sweets and carbs. Is retaining fluid. Does drink plenty of water. Takes her water pill when able. If she is out of the house doesn't take it because she can't make it to the restroom. Difficulty exercising-uses 2 canes to get around. Past medical history, appointments, medications, allergies reviewed. Previous Medical History PAST MEDICAL HISTORY Diagnosis Date Chronic obstructive pulmonary disease (COPD) ([facility]) Degeneration of intervertebral disc, site unspecified Depressive disorder, not elsewhere classified Esophageal reflux Hypothyroidism Obstructive sleep apnea Osteoporosis, unspecified Other affections of shoulder region, not elsewhere classified Previous Surgical History PAST SURGICAL HISTORY Procedure Laterality Date ARTHROSCOPY KNEE DIAGNOSTIC W/WO SYNOVIAL BX SPX Arthroscopy, knee DELIVERY ONLY , low cervical CHOLECYSTECTOMY Cholecystectomy IMPLANT MESH OPN HERNIA RPR/DEBRIDEMENT CLOSURE 03/06/07 PAST SURGICAL HISTORY OF 03/27/2004 gastric bypass RPR 1ST INGUN HRNA AGE 3 YRS/> REDUCIBLE Hernia repair, inguinal TONSILLECTOMY PRIMARY/SECONDARY <AGE 12 Tonsillectomy UNLIS LAPS PX HRNAP HERNIORRHAPHY HERNIOTOMY 03/06/07 Family History FAMILY HISTORY Problem Relation Age of Onset Breast Cancer Mother cva other (cva [Other]) Father Diabetes Father Borderline Diabetes Maternal Grandmother Patient Allergies ALLERGIES Allergen Reactions Maxidex [Dexamethas* Intolerance Nsaids (Non-Steroid* Intolerance not to take due to gastric bipass Boniva [Ibandronate] GI Upset Pain- hx gastric bypass. Intolerant to past biphosphonates. Sister with allergic response to reclast. Doxepin Intolerance AM hangover Current Medications Current Outpatient Medications on File Prior to Visit Medication Sig PARoxetine (PAXIL) 40 mg tablet Take 1 tablet by mouth once daily. gabapentin (NEURONTIN) 300 mg capsule Take 1 capsule by mouth three times daily for 90 days. montelukast (SINGULAIR) 10 mg tablet Take 1 tablet by mouth daily at bedtime. For allergies Phentermine HCl (ADIPEX-P) 37.5 mg tablet Take 1 tablet by mouth once daily for 30 days. BMI 37.16 blood sugar diagnostic (BLOOD GLUCOSE TEST) test strip Test blood sugar(s) 1 times daily. Dx: OtherDM Code hypoglycemia e16.2 Insulin: No IFEREX 150 150 mg iron capsule TAKE 1 TABLET BY MOUTH EVERY DAY WITH MEALS ergocalciferol 50,000 unit capsule (VITAMIN D2, DRISDOL) Take 1 capsule by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 COMPLETE -- NSR with frequent PVCs. Rate of 92. - ECHO 4. Fatigue, unspecified type - ICD9: 780.79, ICD10: R53.83 - TSH BLD - IRON + TIBC - FERRITIN BLD 5. Iron deficiency anemia, unspecified iron deficiency anemia type - ICD9: 280.9, ICD10: D50.9 - IRON + TIBC - FERRITIN BLD 6. Dyslipidemia - ICD9: 272.4, ICD10: E78.5 - Continue current medication. - Encouraged following a low fat, low cholesterol diet. - Discussed the benefits of regular aerobic exercise and weight loss. - Check fasting lipid panel and ALT. - Encouraged following a low carbohydrate, healthy oil intake diet. - Continue current therapy. - LIPID PANEL BASIC RTO as needed and if symptoms persist or return. Prescription instructions reviewed with patient as applicable. Potential red flag symptoms discussed with the patient. Reviewed appropriate action plan to take if red flag symptoms occur. Patient agreeable to treatment plan. Lizzie Ramey APRN.RAY [address] [place] [address] documented in this encounterParkview [facility]2022 History of Present illness Narrative* Fern Finnegan MA - 10/12/2021 9:41 AM EDT POPULATION HEALTH NAVIGATION OUTREACH Action/FYI LVM Health Maintenance items due: ANNUAL MEDICARE WELLNESS EXAM MAMMOGRAM due on 06/02/2017 ADVANCE DIRECTIVE DISCUSSION Never done Pt identified by name and : NO Outreach Outcome/Action Unable to reach patient: Left message Reason for Outreach Care Gap or Scheduling/Wellness visits Payer: Payor: MEDICARE / Plan: MEDICARE A AND B / Product Type: Medicare / Care Gap Reviewed:: Annual Wellness visit Breast Cancer screening Reminder: Reminder note to check Health Maintenance for items below Health Maintenance items due: SPIROMETRY Never done SHINGRIX VACCINE(1 of 2) Never done MAMMOGRAM due on 06/02/2017 ADVANCE DIRECTIVE DISCUSSION Never done Message Sent to Practice: No Navigation Signature: Fern Finnegan MA October 12, 2021 9:41 AM documented in this [facility] Miscellaneous Notes* Telephone Encounter - Gerardo Milligan APRN.CNP - 07/23/2021 4:27 PM EST The following approved medication requests have been transmitted electronically. Signed Prescriptions Disp Refills azithromycin (ZITHROMAX Z-LENIN) 250 mg tablet 6 tablet 0 Sig: Take 2 tablets day one, then, 1 tablet daily until gone. Authorizing Provider: KEI PINEDA Ordering User: GERARDO MILLIGAN dexAMETHasone (DECADRON) 6 mg tablet 6 tablet 0 Sig: Take 1 tablet by mouth twice daily with meals. Authorizing Provider: KEI PINEDA Ordering User: GERARDO MILLIGAN APRN.CNP * Telephone Encounter - Nicolle Sanabria Ma - 07/23/2021 4:25 PM EST Pt notified and verbalized understanding. Pt would like to try dexamethasone and zpak. [facility] [place]. * Telephone Encounter - Gerardo Milligan APRN.CNP - 07/23/2021 1:04 PM EST I recommend rest and plenty of fluids. Ibuprofen/acetaminophen as needed for fever/aches/chills. I can send her in a Zpak and a steroid. She lists dexamethasone as an intolerance. I'm not sure of the reaction. Is this something she is able to take? This would help significantly with her cough. Gerardo Milligan APRN.BULKING MACHINE OPERATOR * Telephone Encounter - Jayde Estrada RN - 07/23/2021 9:29 AM EST Pt called in and reports that she just tested Covid positive in . She had and xray that was normal. ordered her some Tessalon Perles, and Pt reports she already has inhalers. Pt reports she has been sick since the beginning of the month. She reports her symptoms are body aches headache, low grade fever, nonproductive cough (chest hurts from coughing so much), fatigue, and sneezing. Pt wantedto know if there was anything the provider could give her to help with symptoms. Pt was given protocols for home meds and isolation, as well as when to go to the ER. Please call and advise. documented in this encounterPark[facility] History of Present illness Narrative* Shanta Stratton RT(R) - 07/22/2021 11:20 AM EST Radiology Service Progress Note PATIENT NAME: Tasneem Rizzo DATE OF SERVICE: July 22, 2021 TIME: 11:41 AM PATIENT IDENTITY VERIFICATION COMPLETED USING TWO (2) IDENTIFIERS: Name and Date of confirmedby patient verbally. FALL SCREENING: Has the patient had 2 falls in the last year or 1 fall with injury or currently using an Ambulatory Assistive Device (Walker, Cane, Wheelchair, Crutches, etc.)? No PATIENT GENDER DATA: Female. status: : No status: NO. PATIENT RELEVANT IMPLANT DATA REVIEWED: Yes RADIOLOGY DEPARTMENT: General X-ray: Exam(s) Completed: Chest X-Ray PERIPHERAL IV DATA: Not applicable SIGNED BY: RT Jeremy(Stacey) July 22, 2021 11:41 AM documented in this encounterPark[facility]10-28-[facility] History of Present illness Narrative* Shanta Stratton RT(Stacey) - 05/07/2021 10:20 AM EDT Radiology Service Progress Note PATIENT NAME: Tasneem Rizzo DATE OF SERVICE: May 07, 2021 TIME: 10:14 AM PATIENT IDENTITY VERIFICATION COMPLETED USING TWO (2) IDENTIFIERS: Name and Date of confirmedby patient verbally. FALL SCREENING: Has the patient had 2 falls in the last year or 1 fall with injury or currently using an Ambulatory Assistive Device (Walker, Cane, Wheelchair, Crutches, etc.)? Yes, Patient High Riskfor Falls What interventions were put in place to prevent falls during this visit? Instructed Patient to Callfor Help if Needed, Offered Assistance with Transfers/Clothing and Increased Observations by Caregivers PATIENT GENDER DATA: Female. status: : No status: NO. PATIENT RELEVANT IMPLANT DATA REVIEWED: Yes RADIOLOGY DEPARTMENT: General X-ray: Exam(s) Completed: Lower Extremity X- Ray(s): Knee, AP / Lat / Tunne / Merchant Left PERIPHERAL IV DATA: Not applicable SIGNED BY: RT Jeremy(Stacey) May 07, 2021 10:14 AM documented in this encounterPark[facility]10-20-[facility] History of Present illness Narrative* Shanta Stratton RT(R) - 04/29/2021 10:10 AM EDT Radiology Service Progress Note PATIENT NAME: Tasneem Rizzo DATE OF SERVICE: April 29, 2021 TIME: 10:21 AM PATIENT IDENTITY VERIFICATION COMPLETED USING TWO (2) IDENTIFIERS: Name and Date of confirmedby patient verbally. FALL SCREENING: Has the patient had 2 falls in the last year or 1 fall with injury or currently using an Ambulatory Assistive Device (Walker, Cane, Wheelchair, Crutches, etc.)? No PATIENT GENDER DATA: Female. status: : No status: NO. PATIENT RELEVANT IMPLANT DATA REVIEWED: Yes RADIOLOGY DEPARTMENT: General X-ray: Exam(s) Completed: Rib X-Ray: Bilateral Spine X-Ray(s): Thoracic PERIPHERAL IV DATA: Not applicable SIGNED BY: RT Jeremy(Stacey) April 29, 2021 10:21 AM documented in this encounterPark[facility]07-07-[facility] History of Present illness Narrative* Shanta Stratton RT(Stacey) - 01/14/2021 11:40 AM EDT Radiology Service Progress Note PATIENT NAME: Tasneem Rizzo DATE OF SERVICE: January 14, 2021 TIME: 12:12 PM PATIENT IDENTITY VERIFICATION COMPLETED USING TWO (2) IDENTIFIERS: Name and Date of confirmedby patient verbally. FALL SCREENING: Has the patient had 2 falls in the last year or 1 fall with injury or currently using an Ambulatory Assistive Device (Walker, Cane, Wheelchair, Crutches, etc.)? Yes, Patient High Riskfor Falls What interventions were put in place to prevent falls during this visit? Instructed Patient to Callfor Help if Needed, Offered Assistance with Transfers/Clothing and Increased Observations by Caregivers PATIENT GENDER DATA: Female. status: : No status: NO. PATIENT RELEVANT IMPLANT DATA REVIEWED: Yes RADIOLOGY DEPARTMENT: General X-ray: Exam(s) Completed: Spine X-Ray(s): Lumbar AP / LAT / L5-S1 PERIPHERAL IV DATA: Not applicable SIGNED BY: RT Jeremy(Stacey) January 14, 2021 12:12 PM documented in this encounterPark[facility]07-30-2012 History of Past illness Narrative* Problem Noted Date Resolved Date Respiratory infection 02/07/2012 02/07/2012 Sally-en-Y varices 05/20/2010 05/20/2010 Acute bronchitis 09/18/2007 01/23/2010 Sprain of neck 07/14/2006 01/23/2010 Pain in joint, shoulder region 01/14/2006 0 01/23/2010 documented as of this encounter (statuses as of 10/12/2021) [facility] of [facility] illness Narrative* Problem Noted Date Resolved Date Respiratory infection 02/07/2012 02/07/2012 Sally-en-Y varices 05/20/2010 05/20/2010 Acute bronchitis 09/18/2007 01/23/2010 Sprain of neck 07/14/2006 01/23/2010 Pain in joint, shoulder region 01/14/2006 0 01/23/2010 documented as of this encounter (statuses as of 11/09/2021) [facility] Narrative* Problem Noted Date Resolved Date Respiratory infection 02/07/2012 02/07/2012 Sally-en-Y varices 05/20/2010 05/20/2010 Acute bronchitis 09/18/2007 01/23/2010 Sprain of neck 07/14/2006 01/23/2010 Pain in joint, shoulder region 01/14/2006 0 01/23/2010 documented as of this encounter (statuses as of 11/13/2021) [facility] Narrative* Problem Noted Date Resolved Date Respiratory infection 02/07/2012 02/07/2012 Sally-en-Y varices 05/20/2010 05/20/2010 Acute bronchitis 09/18/2007 01/23/2010 Sprain of neck 07/14/2006 01/23/2010 Pain in joint, shoulder region 01/14/2006 0 01/23/2010 documented as of this encounter (statuses as of 11/19/2021) [facility] Narrative* Problem Noted Date Resolved Date Respiratory infection 02/07/2012 02/07/2012 Sally-en-Y varices 05/20/2010 05/20/2010 Acute bronchitis 09/18/2007 01/23/2010 Sprain of neck 07/14/2006 01/23/2010 Pain in joint, shoulder region 01/14/2006 0 01/23/2010 documented as of this encounter (statuses as of 01/07/2022) [facility] Narrative* Problem Noted Date Resolved Date Respiratory infection 02/07/2012 02/07/2012 Sally-en-Y varices 05/20/2010 05/20/2010 Acute bronchitis 09/18/2007 01/23/2010 Sprain of neck 07/14/2006 01/23/2010 Pain in joint, shoulder region 01/14/2006 0 01/23/2010 documented as of this encounter (statuses as of 01/29/2022) [facility] Narrative* Problem Noted Date Resolved Date Respiratory infection 02/07/2012 02/07/2012 Sally-en-Y varices 05/20/2010 05/20/2010 Acute bronchitis 09/18/2007 01/23/2010 Sprain of neck 07/14/2006 01/23/2010 Pain in joint, shoulder region 01/14/2006 0 01/23/2010 documented as of this encounter (statuses as of 02/03/2022) [facility] Narrative* Problem Noted Date Resolved Date Respiratory infection 02/07/2012 02/07/2012 Sally-en-Y varices 05/20/2010 05/20/2010 Acute bronchitis 09/18/2007 01/23/2010 Sprain of neck 07/14/2006 01/23/2010 Pain in joint, shoulder region 01/14/2006 0 01/23/2010 documented as of this encounter (statuses as of 03/04/2022) [facility] Narrative* Problem Noted Date Resolved Date Respiratory infection 02/07/2012 02/07/2012 Sally-en-Y varices 05/20/2010 05/20/2010 Acute bronchitis 09/18/2007 01/23/2010 Sprain of neck 07/14/2006 01/23/2010 Pain in joint, shoulder region 01/14/2006 0 01/23/2010 documented as of this encounter (statuses as of 03/11/2022) [facility]arrative* Problem Noted Date Resolved Date Respiratory infection 02/07/2012 02/07/2012 Sally-en-Y varices 05/20/2010 05/20/2010 Acute bronchitis 09/18/2007 01/23/2010 Sprain of neck 07/14/2006 01/23/2010 Pain in joint, shoulder region 01/14/2006 0 01/23/2010 documented as of this encounter (statuses as of 03/15/2022) [facility]arrative* Problem Noted Date Resolved Date Respiratory infection 02/07/2012 02/07/2012 Sally-en-Y varices 05/20/2010 05/20/2010 Acute bronchitis 09/18/2007 01/23/2010 Sprain of neck 07/14/2006 01/23/2010 Pain in joint, shoulder region 01/14/2006 0 01/23/2010 documented as of this encounter (statuses as of 03/29/2022) [facility]* Problem Noted Date Resolved Date Respiratory infection 02/07/2012 02/07/2012 Sally-en-Y varices 05/20/2010 05/20/2010 Acute bronchitis 09/18/2007 01/23/2010 Sprain of neck 07/14/2006 01/23/2010 Pain in joint, shoulder region 01/14/2006 0 01/23/2010 documented as of this encounter (statuses as of 03/30/2022) [facility]arrative* Problem Noted Date Resolved Date Respiratory infection 02/07/2012 02/07/2012 Sally-en-Y varices 05/20/2010 05/20/2010 Acute bronchitis 09/18/2007 01/23/2010 Sprain of neck 07/14/2006 01/23/2010 Pain in joint, shoulder region 01/14/2006 0 01/23/2010 documented as of this encounter (statuses as of 04/13/2022) [facility]* Problem Noted Date Resolved Date Respiratory infection 02/07/2012 02/07/2012 Sally-en-Y varices 05/20/2010 05/20/2010 Acute bronchitis 09/18/2007 01/23/2010 Sprain of neck 07/14/2006 01/23/2010 Pain in joint, shoulder region 01/14/2006 0 01/23/2010 documented as of this encounter (statuses as of 04/28/2022) [facility]* Problem Noted Date Resolved Date Respiratory infection 02/07/2012 02/07/2012 Sally-en-Y varices 05/20/2010 05/20/2010 Acute bronchitis 09/18/2007 01/23/2010 Sprain of neck 07/14/2006 01/23/2010 Pain in joint, shoulder region 01/14/2006 0 01/23/2010 documented as of this encounter (statuses as of 04/28/2022) [facility]* Problem Noted Date Resolved Date Respiratory infection 02/07/2012 02/07/2012 Sally-en-Y varices 05/20/2010 05/20/2010 Acute bronchitis 09/18/2007 01/23/2010 Sprain of neck 07/14/2006 01/23/2010 Pain in joint, shoulder region 01/14/2006 0 01/23/2010 documented as of this encounter (statuses as of 04/29/2022) [facility]* Problem Noted Date Resolved Date Respiratory infection 02/07/2012 02/07/2012 Sally-en-Y varices 05/20/2010 05/20/2010 Acute bronchitis 09/18/2007 01/23/2010 Sprain of neck 07/14/2006 01/23/2010 Pain in joint, shoulder region 01/14/2006 0 01/23/2010 documented as of this encounter (statuses as of 07/04/2022) [facility]* Problem Noted Date Resolved Date Respiratory infection 02/07/2012 02/07/2012 Sally-en-Y varices 05/20/2010 05/20/2010 Acute bronchitis 09/18/2007 01/23/2010 Sprain of neck 07/14/2006 01/23/2010 Pain in joint, shoulder region 01/14/2006 0 01/23/2010 documented as of this encounter (statuses as of 07/15/2022) [facility]* Problem Noted Date Resolved Date Respiratory infection 02/07/2012 02/07/2012 Sally-en-Y varices 05/20/2010 05/20/2010 Acute bronchitis 09/18/2007 01/23/2010 Sprain of neck 07/14/2006 01/23/2010 Pain in joint, shoulder region 01/14/2006 0 01/23/2010 documented as of this encounter (statuses as of 07/20/2022) [facility]* Problem Noted Date Resolved Date Respiratory infection 02/07/2012 02/07/2012 Sally-en-Y varices 05/20/2010 05/20/2010 Acute bronchitis 09/18/2007 01/23/2010 Sprain of neck 07/14/2006 01/23/2010 Pain in joint, shoulder region 01/14/2006 0 01/23/2010 documented as of this encounter (statuses as of 08/27/2022) [facility]* Problem Noted Date Resolved Date Respiratory infection 02/07/2012 02/07/2012 Sally-en-Y varices 05/20/2010 05/20/2010 Acute bronchitis 09/18/2007 01/23/2010 Sprain of neck 07/14/2006 01/23/2010 Pain in joint, shoulder region 01/14/2006 0 01/23/2010 documented as of this encounter (statuses as of 09/20/2022) [facility]* Problem Noted Date Resolved Date Respiratory infection 02/07/2012 02/07/2012 Sally-en-Y varices 05/20/2010 05/20/2010 Acute bronchitis 09/18/2007 01/23/2010 Sprain of neck 07/14/2006 01/23/2010 Pain in joint, shoulder region 01/14/2006 0 01/23/2010 documented as of this encounter (statuses as of 12/30/2022) [facility]* Problem Noted Date Diagnosed Date Resolved Date Respiratory infection 02/07/20122011 Sally-en-Y varices 05/20/2010 05/20/2010 Acute bronchitis 09/18/2007 01/23/2010 Sprain of neck 07/14/2006 01/23/2010 Pain in joint, shoulder region 01/14/2006 01/23/2010 documented as of this encounter (statuses as of 02/08/2023) [facility]* Problem Noted Date Diagnosed Date Resolved Date Respiratory infection 02/07/20122011 Sally-en-Y varices 05/20/2010 05/20/2010 Acute bronchitis 09/18/2007 01/23/2010 Sprain of neck 07/14/2006 01/23/2010 Pain in joint, shoulder region 01/14/2006 01/23/2010 documented as of this encounter (statuses as of 02/14/2023) [facility]* Problem Noted Date Diagnosed Date Resolved Date Respiratory infection 02/07/20122011 Sally-en-Y varices 05/20/2010 05/20/2010 Acute bronchitis 09/18/2007 01/23/2010 Sprain of neck 07/14/2006 01/23/2010 Pain in joint, shoulder region 01/14/2006 01/23/2010 documented as of this encounter (statuses as of 02/17/2023) [facility]ative* Problem Noted Date Diagnosed Date Resolved Date Respiratory infection 02/07/20122011 Sally-en-Y varices 05/20/2010 05/20/2010 Acute bronchitis 09/18/2007 01/23/2010 Sprain of neck 07/14/2006 01/23/2010 Pain in joint, shoulder region 01/14/2006 01/23/2010 documented as of this encounter (statuses as of 03/21/2023) [facility] Diagnosis Syncope, unspecified syncope type- Primary Low blood sugar Hypoglycemia, unspecified Palpitations Fatigue, unspecified type Iron deficiency anemia, unspecified iron deficiency anemia type Dyslipidemia Other and unspecified hyperlipidemia [facility]* Diagnosis Low blood sugar- Primary Hypoglycemia, unspecified [facility] this encounter [facility] Diagnosis Dyslipidemia- Primary Other and unspecified hyperlipidemia Seasonal allergic rhinitis due to other allergic trigger Obesity, Class II, BMI 35-39.9 Obesity, unspecified Fatigue, unspecified type Iron deficiency anemia, unspecified iron deficiency anemia type Age-related osteoporosis without current pathological fracture Senile osteoporosis Mixed hyperlipidemia Vitamin D deficiency Unspecified vitamin D deficiency Chronic obstructive pulmonary disease, unspecified COPD type (HCC) Chronic pain syndrome [facility]* Diagnosis Bipolar 2 disorder, major depressive episode (HCC) Other bipolar disorders [facility] this encounter [facility] Diagnosis Obesity, Class II, BMI 35-39.9- Primary Obesity, unspecified Dyslipidemia Other and unspecified hyperlipidemia [facility] Diagnosis Obesity, Class II, BMI 35-39.9- Primary Obesity, unspecified Dyslipidemia Other and unspecified hyperlipidemia Cervicalgia Chronic pain syndrome Diffuse myofascial pain syndrome Mylagia and myositis, unspecified Spondylosis Spondylosis of unspecified site without mention of myelopathy Primary osteoarthritis involving multiple joints Screening for colon cancer Special screening for malignant neoplasms, colon Neck pain Cervicalgia Nausea Nausea alone [facility]* Diagnosis Primary osteoarthritis involving multiple joints- Primary Cervicalgia Chronic pain syndrome [facility] Diagnosis Encounter for screening mammogram for breast cancer [facility] this [facility] Diagnosis Primary osteoarthritis involving multiple joints- Primary Cervicalgia Chronic pain syndrome [facility]* Diagnosis Primary osteoarthritis involving multiple joints- Primary Cervicalgia Chronic pain syndrome [facility]* Diagnosis Acute cough- Primary Sore throat Acute pharyngitis [facility] this [facility] Diagnosis Closed nondisplaced fracture of surgical neck of left humerus with routine healing, unspecified fracture morphology, subsequent encounter- Primary Seasonal allergic rhinitis due to other allergic trigger Iron deficiency anemia, unspecified iron deficiency anemia type Age-related osteoporosis without current pathological fracture 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 Bipolar 2 disorder, major depressive episode (HCC) Other bipolar disorders [facility] this [facility] Diagnosis Closed nondisplaced fracture of surgical neck of left humerus with routine healing, unspecified fracture morphology, subsequent encounter- Primary [facility]* Diagnosis Chronic left shoulder pain- Primary Pain in joint, shoulder region Closed nondisplaced fracture of surgical neck of left humerus with routine healing, unspecified fracture morphology, subsequent encounter Pulmonary emphysema, unspecified emphysema type (HCC) Chronic pain syndrome Fatigue, unspecified type documented [facility] this [facility] Diagnosis Bipolar 2 disorder, major depressive episode (HCC) Other bipolar disorders [facility]* Diagnosis Grieving- Primary Adjustment disorder with depressed mood Situational anxiety Other anxiety states Bipolar 2 disorder, major depressive episode (HCC) Other bipolar disorders [facility] this encounter [facility] Diagnosis Other open nondisplaced fracture of distal end of right humerus, initial encounter- Primary [facility] Diagnosis Status post right elbow joint replacement- Primary [facility] Diagnosis Dermatitis contact- Primary [facility] Diagnosis Status post right elbow joint replacement- Primary [facility] Diagnosis Arm injuries, left, initial encounter- Primary Rash Rash and other nonspecific skin eruption [facility] Diagnosis Scalp psoriasis- Primary Other psoriasis Psoriasis Other psoriasis Acute otitis media, left Unspecified otitis media Hot flashes due to menopause Bipolar 2 disorder, major depressive episode (HCC) Other bipolar disorders Impacted cerumen of right ear Impacted cerumen [facility] this encounter [facility] Diagnosis Closed nondisplaced fracture of surgical neck of left humerus with routine healing, unspecified fracture morphology, subsequent encounter Chronic left shoulder pain Pain in joint, shoulder region documented [facility] this [facility] Diagnosis Confusion- Primary Unspecified psychosis Fall, initial encounter Short-term memory loss Memory loss Headaches Mood swings Other specified episodic mood disorder Age-related osteoporosis without current pathological fracture Senile osteoporosis Low blood sugar Hypoglycemia, unspecified Gastroesophageal reflux disease without esophagitis Esophageal reflux Screening for osteoporosis Special screening for osteoporosis Asymptomatic menopause Cognitive impairment, mild, so stated Mild cognitive impairment, so stated Dyslipidemia Other and unspecified hyperlipidemia Situational anxiety Other anxiety states Hypertension, unspecified type IFG (impaired fasting glucose) Impaired fasting glucose [facility] this encounter [facility] Diagnosis Fall, initial encounter Short-term memory loss Memory loss Headaches Mood swings Other specified episodic mood disorder Age-related osteoporosis without current pathological fracture Senile osteoporosis Cognitive impairment, mild, so stated Mild cognitive impairment, so stated Confusion Unspecified psychosis [facility] Diagnosis Short-term memory loss- Primary Memory loss Headaches Cognitive impairment, mild, so stated Mild cognitive impairment, so stated documented [facility] this encounter [facility] Diagnosis Bipolar 2 disorder, major depressive episode (HCC)- Primary Other bipolar disorders Cognitive impairment, mild, so stated Mild cognitive impairment, so stated Class 2 obesity with body mass index (BMI) of 35.0 to 35.9 in adult, unspecified obesity type, unspecified whether serious comorbidity present [facility] Diagnosis Situational anxiety- Primary Other anxiety states [facility] this [facility] Diagnosis Cognitive impairment- Primary Unspecified persistent mental disorders due to conditions classified elsewhere documented in this encounter [facility] note* Diagnosis DEPRESSIVE DISORDER NEC- Primary Depressive disorder, not elsewhere classified Yeast infection of the skin Candidiasis of skin and nails Tobacco use disorder Esophageal reflux Personal history of gastric bypass Bariatric surgery status COPD (chronic obstructive pulmonary disease) ([facility]) Chronic airway obstruction, not elsewhere classified CHRONIC PAIN NEC Other chronic pain Cervical arthritis Cervical spondylosis without myelopathy Unspecified Osteoporosis Osteoporosis, unspecified Postsurgical malabsorption Other and unspecified postsurgical nonabsorption Hypercalcemia- Primary Hot flashes due to menopause Bipolar 2 disorder, major depressive episode ([facility]) Other bipolar disorders Fatigue, unspecified type Vitamin D deficiency Unspecified vitamin D deficiency Hypoalbuminemia Other disorders of plasma protein metabolism Diffuse myofascial pain syndrome Mylagia and myositis, unspecified Hypothyroidism, acquired Unspecified hypothyroidism documented in this encounter [facility] note* Diagnosis DEPRESSIVE DISORDER NEC- Primary Depressive disorder, not elsewhere classified Yeast infection of the skin Candidiasis of skin and nails Tobacco use disorder Esophageal reflux Personal history of gastric bypass Bariatric surgery status COPD (chronic obstructive pulmonary disease) ([facility]) Chronic airway obstruction, not elsewhere classified CHRONIC PAIN NEC Other chronic pain Cervical arthritis Cervical spondylosis without myelopathy Unspecified Osteoporosis Osteoporosis, unspecified Postsurgical malabsorption Other and unspecified postsurgical nonabsorption Status post right elbow joint replacement- Primary [facility] Diagnosis DEPRESSIVE DISORDER NEC- Primary Depressive disorder, not elsewhere classified Yeast infection of the skin Candidiasis of skin and nails Tobacco use disorder Esophageal reflux Personal history of gastric bypass Bariatric surgery status COPD (chronic obstructive pulmonary disease) ([facility]) Chronic airway obstruction, not elsewhere classified CHRONIC PAIN NEC Other chronic pain Cervical arthritis Cervical spondylosis without myelopathy Unspecified Osteoporosis Osteoporosis, unspecified Postsurgical malabsorption Other and unspecified postsurgical nonabsorption Acute cough Sore throat Acute pharyngitis documented in this [facility] Diagnosis DEPRESSIVE DISORDER NEC- Primary Depressive disorder, not elsewhere classified Yeast infection of the skin Candidiasis of skin and nails Tobacco use disorder Esophageal reflux Personal history of gastric bypass Bariatric surgery status COPD (chronic obstructive pulmonary disease) ([facility]) Chronic airway obstruction, not elsewhere classified CHRONIC PAIN NEC Other chronic pain Cervical arthritis Cervical spondylosis without myelopathy Unspecified Osteoporosis Osteoporosis, unspecified Postsurgical malabsorption Other and unspecified postsurgical nonabsorption Obesity, Class II, BMI 35-39.9 Obesity, unspecified Cervicalgia Chronic pain syndrome Diffuse myofascial pain syndrome Mylagia and myositis, unspecified Spondylosis Spondylosis of unspecified site without mention of myelopathy Primary osteoarthritis involving multiple joints Neck pain Cervicalgia documented [facility] Diagnosis DEPRESSIVE DISORDER NEC- Primary Depressive disorder, not elsewhere classified Yeast infection of the skin Candidiasis of skin and nails Tobacco use disorder Esophageal reflux Personal history of gastric bypass Bariatric surgery status COPD (chronic obstructive pulmonary disease) ([facility]) Chronic airway obstruction, not elsewhere classified CHRONIC PAIN NEC Other chronic pain Cervical arthritis Cervical spondylosis without myelopathy Unspecified Osteoporosis Osteoporosis, unspecified Postsurgical malabsorption Other and unspecified postsurgical nonabsorption Closed nondisplaced fracture of surgical neck of left humerus with routine healing, unspecified fracture morphology, subsequent encounter Situational anxiety Other anxiety states Seasonal allergic rhinitis due to other allergic trigger Gastroesophageal reflux disease without esophagitis Esophageal reflux documented in this [facility] Diagnosis DEPRESSIVE DISORDER NEC- Primary Depressive disorder, not elsewhere classified Yeast infection of the skin Candidiasis of skin and nails Tobacco use disorder Esophageal reflux Personal history of gastric bypass Bariatric surgery status COPD (chronic obstructive pulmonary disease) ([facility]) Chronic airway obstruction, not elsewhere classified CHRONIC PAIN NEC Other chronic pain Cervical arthritis Cervical spondylosis without myelopathy Unspecified Osteoporosis Osteoporosis, unspecified Postsurgical malabsorption Other and unspecified postsurgical nonabsorption Acute pain of left knee [facility] Diagnosis DEPRESSIVE DISORDER NEC- Primary Depressive disorder, not elsewhere classified Yeast infection of the skin Candidiasis of skin and nails Tobacco use disorder Esophageal reflux Personal history of gastric bypass Bariatric surgery status COPD (chronic obstructive pulmonary disease) ([facility]) Chronic airway obstruction, not elsewhere classified CHRONIC PAIN NEC Other chronic pain Cervical arthritis Cervical spondylosis without myelopathy Unspecified Osteoporosis Osteoporosis, unspecified Postsurgical malabsorption Other and unspecified postsurgical nonabsorption Suspected COVID-19 virus infection documented in this encounter [facility] Diagnosis DEPRESSIVE DISORDER NEC- Primary Depressive disorder, not elsewhere classified Yeast infection of the skin Candidiasis of skin and nails Tobacco use disorder Esophageal reflux Personal history of gastric bypass Bariatric surgery status COPD (chronic obstructive pulmonary disease) ([facility]) Chronic airway obstruction, not elsewhere classified CHRONIC PAIN NEC Other chronic pain Cervical arthritis Cervical spondylosis without myelopathy Unspecified Osteoporosis Osteoporosis, unspecified Postsurgical malabsorption Other and unspecified postsurgical nonabsorption Acute bilateral thoracic back pain documented in this encounter [facility] Diagnosis DEPRESSIVE DISORDER NEC- Primary Depressive disorder, not elsewhere classified Yeast infection of the skin Candidiasis of skin and nails Tobacco use disorder Esophageal reflux Personal history of gastric bypass Bariatric surgery status COPD (chronic obstructive pulmonary disease) ([facility]) Chronic airway obstruction, not elsewhere classified CHRONIC PAIN NEC Other chronic pain Cervical arthritis Cervical spondylosis without myelopathy Unspecified Osteoporosis Osteoporosis, unspecified Postsurgical malabsorption Other and unspecified postsurgical nonabsorption Fall, initial encounter Rib pain Chest pain, unspecified documented in this encounter [facility]* Diagnosis DEPRESSIVE DISORDER NEC- Primary Depressive disorder, not elsewhere classified Yeast infection of the skin Candidiasis of skin and nails Tobacco use disorder Esophageal reflux Personal history of gastric bypass Bariatric surgery status COPD (chronic obstructive pulmonary disease) ([facility]) Chronic airway obstruction, not elsewhere classified CHRONIC PAIN NEC Other chronic pain Cervical arthritis Cervical spondylosis without myelopathy Unspecified Osteoporosis Osteoporosis, unspecified Postsurgical malabsorption Other and unspecified postsurgical nonabsorption Acute right-sided low back pain without sciatica Osteoporosis, unspecified documented [facility] this [facility] Outpatient Procedure (Routine) - Authorized Specialty Diagnoses / Procedures Referred By Contac t Referred To [facility] Diagnoses Syncope, unspecified syncope type Palpitations Procedures ECHO ECHO TTHRC R-T 2D W/WOM-MODE COMPL SPEC&COLR D Lizzie Ramey APRN.BULKING MACHINE OPERATOR [address] [place] [address] [facility] [place] [address] Referral ID Status Reason Start Date Expiration Date Visits Requested Visits Authorized [id number] Authorized Auto-Generat ed Referral 11/09/2021 11/09/2022 1 1 * Outpatient Procedure (Routine) - Closed Specialty Diagnoses / Procedures Referred By Contac t Referred To [facility] Diagnoses Syncope, unspecified syncope type Palpitations Procedures ECG COMPLETE ECG ROUTINE ECG W/LEAST 12 LDS W/I&R Lizzie Ramey APRN.BULKING MACHINE OPERATOR [address] [place] [address] [facility] [place] [address] [place] [address] Referral ID Status Reason Start Date Expiration Date V isits Requested Visits Authorized [id number] Closed Auto-Generate d Referral 11/09/2021 11/09/2022 1 1 * Outpatient Procedure (Routine) - Authorized Specialty Diagnoses / Procedures Referred By Alecia t Referred To [facility] Diagnoses Syncope, unspecified syncope type Procedures US CAROTID ARTERIES [facility] DUPLEX SCAN EXTRACRANIAL ART COMPL BI STUDY Lizzie Ramey APRN.BULKING MACHINE OPERATOR [address] [place] [address] [facility] [place] [address] [place] [address] Referral ID Status Reason Start Date Expiration Date Visits Requested Visits Authorized [id number] Authorized Auto-Generat ed Referral 11/09/2021 11/09/2022 1 1 [facility] for referral (narrative)* Diagnostic Procedure Only (Routine) - Pending Review Specialty Diagnoses / Procedures Referred By Alecia gruber Referred To Contact XR IMAGING Diagnoses Obesity, Class II, BMI 35-39.9 Cervicalgia Chronic pain syndrome Diffuse myofascial pain syndrome Spondylosis Primary osteoarthritis involving multiple joints Neck pain Procedures XR CERV OTHER 4V AP/LAT/OBL RADEX SPINE CERVICAL 4 OR 5 VIEWS Gerardo Milligan APRN.BULKING MACHINE OPERATOR [address] [place] [address] [facility] Referral ID Status Reason Start Date Expiration Date Visits Requested Visits Authorized [id number] Pending Review Auto-Generat ed Referral 03/04/2022 04/03/2023 1 1 * Physical Therapy (Routine) - Authorized Specialty Diagnoses / Procedures Referred By Contac t Referred To Contact [facility] Diagnoses Cervicalgia Chronic pain syndrome Diffuse myofascial pain syndrome Spondylosis Primary osteoarthritis involving multiple joints Neck pain Procedures CONSULT TO PHYSICAL THERAPY PHYSICAL THERAPY EVALUATION HIGH COMPLEX 45 MINS Gerardo Milligan APRN.CNP [address] [place] [address] [facility] [place] [address] [place] [address] Referral ID Status Reason Start Date Expiration Date Visits Requested Visits Authorized [id number] Authorized PCP Requested Referral Auto-Generate d Referral 03/04/2022 03/04/2023 99 99 [facility] for referral (narrative)* Diagnostic Procedure Only (Routine) - Pending Review Specialty Diagnoses / Procedures Referred By Neyac t Referred To Contact [facility] Diagnoses Encounter for screening mammogram for breast cancer Procedures GELA SCREENING SCREENING MAMMOGRAPHY BI 2-VIEW BREAST INC CAD Kei Pineda, DO [address] [place] [address] [facility] [address] [place] [address] Referral ID Status Reason Start Date Expiration Date Visits Requested Visits Authorized [id number] Pending Review Auto-Generat ed Referral 03/10/2022 04/09/2023 1 1 [facility] for referral (narrative)* Diagnostic Procedure Only (Routine) - Pending Review Specialty Diagnoses / Procedures Referred By Contac t Referred To Contact [facility] Diagnoses Encounter for screening mammogram for breast cancer Procedures GELA SCREENING SCREENING MAMMOGRAPHY BI 2-VIEW BREAST INC CAD Kei Pineda, DO [address] [place] [address] [facility] [address] [place] [address] Referral ID Status Reason Start Date Expiration Date Visits Requested Visits Authorized [id number] Pending Review Auto-Generat ed Referral 02/09/2023 03/10/2024 1 1 [facility] for referral (narrative)* Diagnostic Procedure Only (Routine) - Pending Review Specialty Diagnoses / Procedures Referred By Contac t Referred To Contact XR IMAGING Diagnoses Status post right elbow joint replacement Procedures XR ELBOW SPECIAL VIEWS AP/LAT/OTHER RIGHT RADEX ELBOW COMPLETE MINIMUM 3 VIEWS Bola Dobson MD [address] [place] [address] [place] [address] Referral ID Status Reason Start Date Expiration Date Visits Requested Visits Authorized [id number] Pending Review Auto-Generat ed Referral 04/15/2023 05/14/2024 1 1 [facility] for referral (narrative)* Diagnostic Procedure Only (Routine) - Pending Review Specialty Diagnoses / Procedures Referred By Contac t Referred To Contact XR IMAGING Diagnoses Status post right elbow joint replacement Procedures XR ELBOW SPECIAL VIEWS AP/LAT/OTHER RIGHT RADEX ELBOW COMPLETE MINIMUM 3 VIEWS Bola Dobson MD [address] [place] [address] [place] [address] Referral ID Status Reason Start Date Expiration Date Visits Requested Visits Authorized [id number] Pending Review Auto-Generat ed Referral 3 07/19/2024 1 1 [facility] for referral (narrative)* Diagnostic Procedure Only (Urgent) - Closed Specialty Diagnoses / Procedures Referred By Contac t Referred To Contact XR IMAGING Diagnoses Arm injuries, left, initial encounter Procedures XR HUMERUS 2V AP/LAT LEFT RADEX HUMERUS MINIMUM 2 VIEWS Nancy Garibay APRN.BULKING MACHINE OPERATOR [address] [place] [address] [place] [address] Referral ID Status Reason Start Date Expiration Date V isits Requested Visits Authorized [id number] Closed Auto-Generate d Referral 10/26/2023 11/24/2024 1 1 [facility] for referral (narrative)* Diagnostic Procedure Only (Routine) - New Request Specialty Diagnoses / Procedures Referred By Contac t Referred To Contact XR IMAGING Diagnoses Status post right elbow joint replacement Procedures XR ELBOW SPECIAL VIEWS AP/LAT/OTHER RIGHT RADEX ELBOW COMPLETE MINIMUM 3 VIEWS Bola Dobson MD [address] [address] [place] [address] Referral ID Status Reason Start Date Expiration Date Visits Requested Visits Authorized [id number] New Request Auto-Generat ed Referral 03/21/2024 04/20/2025 1 1 [facility] for referral (narrative)* Diagnostic Procedure Only (Routine) - Closed Specialty Diagnoses / Procedures Referred By Contac t Referred To Contact XR IMAGING Diagnoses Obesity, Class II, BMI 35-39.9 Cervicalgia Chronic pain syndrome Diffuse myofascial pain syndrome Spondylosis Primary osteoarthritis involving multiple joints Neck pain Procedures XR CERV OTHER 4V AP/LAT/OBL RADEX SPINE CERVICAL 4 OR 5 VIEWS Gerardo Milligan, NAYELI.BULKING MACHINE OPERATOR [address] [place] [address] [place] [address] Referral ID Status Reason Start Date Expiration Date V isits Requested Visits Authorized [id number] Closed Auto-Generate d Referral 03/04/2022 04/03/2023 1 1 [facility] for referral (narrative)* Diagnostic Procedure Only (Urgent) - Closed Specialty Diagnoses / Procedures Referred By Contac t Referred To Contact XR IMAGING Diagnoses Acute pain of left knee Procedures XR KNEE GENERAL 4V AP BOTH/PA BOTH/LAT/MERC LT KNEE AP-WGT/LAT/MERCHANT Laurence Maravilla PAIdaniaC [address] [place] [address] [place] [address] Referral ID Status Reason Start Date Expiration Date V isits Requested Visits Authorized [id number] Closed Auto-Generate d Referral 05/07/2021 06/06/2022 1 1 [facility] for referral (narrative)* Diagnostic Procedure Only (Routine) - Closed Specialty Diagnoses / Procedures Referred By Contac t Referred To Contact XR IMAGING Diagnoses Acute bilateral thoracic back pain Procedures XR RIBS BILAT/CHEST 4V X-RAY RIBS, CHEST 4+ VW Kei Pineda, DO [address] [place] [address] [place] [address] Referral ID Status Reason Start Date Expiration Date V isits Requested Visits Authorized [id number] Closed Auto-Generate d Referral 04/29/2021 05/29/2022 1 1 * Diagnostic Procedure Only (Routine) - Closed Specialty Diagnoses / Procedures Referred By Contac t Referred To Contact XR IMAGING Diagnoses Acute bilateral thoracic back pain Procedures XR THORACIC GENERAL 3V AP/LAT/SWIMMERS X-RAY THORACIC SPINE AP/LAT W/SWIM Kei Pineda DO [address] [place] [address] [place] [address] Referral ID Status Reason Start Date Expiration Date V isits Requested Visits Authorized [id number] Closed Auto-Generate d Referral 04/29/2021 05/29/2022 1 1 [facility] for referral (narrative)* Diagnostic Procedure Only (Routine) - Closed Specialty Diagnoses / Procedures Referred By Contac t Referred To Contact XR IMAGING Diagnoses Fall, initial encounter Rib pain Procedures XR RIBS/CHEST 3V AP RIB/OBLS/CXR LEFT RADEX RIBS UNI W/POSTEROANT CH MINIMUM 3 VIEWS Gerardo Milligan, NAYELI.BULKING MACHINE OPERATOR [address] [place] [address] [place] [address] Referral ID Status Reason Start Date Expiration Date V isits Requested Visits Authorized [id number] Closed Auto-Generate d Referral 08/26/2021 09/25/2022 1 1 [facility] for visit Narrative* Diagnostic Procedure Only (Urgent) - Closed Specialty Diagnoses / Procedures Referred By Contac t Referred To Contact XR IMAGING Diagnoses Arm injuries, left, initial encounter Procedures XR HUMERUS 2V AP/LAT LEFT RADEX HUMERUS MINIMUM 2 VIEWS Nancy Garibay DIRECTOR OF BUSINESS DEVELOPMENT.BULKING MACHINE OPERATOR [address] [place] [address] [place] [address] Referral ID Status Reason Start Date Expiration Date V isits Requested Visits Authorized [id number] Closed Auto-Generate d Referral 10/26/2023 11/24/2024 1 1 [facility] for visit Narrative* Diagnostic Procedure Only (Routine) - Closed Specialty Diagnoses / Procedures Referred By Contac t Referred To Contact XR IMAGING Diagnoses Obesity, Class II, BMI 35-39.9 Cervicalgia Chronic pain syndrome Diffuse myofascial pain syndrome Spondylosis Primary osteoarthritis involving multiple joints Neck pain Procedures XR CERV OTHER 4V AP/LAT/OBL RADEX SPINE CERVICAL 4 OR 5 VIEWS Gerardo Milligan APRN.BULKING MACHINE OPERATOR [address] [place] [address] [place] [address] Referral ID Status Reason Start Date Expiration Date V isits Requested Visits Authorized [id number] Closed Auto-Generate d Referral 03/04/2022 04/03/2023 1 1 [facility] for visit Narrative* Diagnostic Procedure Only (Urgent) - Closed Specialty Diagnoses / Procedures Referred By Contac t Referred To Contact XR IMAGING Diagnoses Acute pain of left knee Procedures XR KNEE GENERAL 4V AP BOTH/PA BOTH/LAT/MERC LT KNEE AP-WGT/LAT/MERCHANT Laurence Maravilla, PA-C [address] [place] [address] [place] [address] Referral ID Status Reason Start Date Expiration Date V isits Requested Visits Authorized [id number] Closed Auto-Generate d Referral 05/07/2021 06/06/2022 1 1 [facility] for visit Narrative* Diagnostic Procedure Only (Routine) - Closed Specialty Diagnoses / Procedures Referred By Contac t Referred To Contact XR IMAGING Diagnoses Acute bilateral thoracic back pain Procedures XR RIBS BILAT/CHEST 4V X-RAY RIBS, CHEST 4+ VW PinedaKei L, DO [address] [place] [address] [place] [address] Referral ID Status Reason Start Date Expiration Date V isits Requested Visits Authorized [id number] Closed Auto-Generate d Referral 04/29/2021 05/29/2022 1 1 [facility] Diagnostic Procedure Only (Routine) - Closed Specialty Diagnoses / Procedures Referred By Contac t Referred To Contact XR IMAGING Diagnoses Fall, initial encounter Rib pain Procedures XR RIBS/CHEST 3V AP RIB/OBLS/CXR LEFT RADEX RIBS UNI W/POSTEROANT CH MINIMUM 3 VIEWS Gerardo Milligan APRN.BULKING MACHINE OPERATOR [address] [place] [address] [place] [address] Referral ID Status Reason Start Date Expiration Date V isits Requested Visits Authorized [id number] Closed Auto-Generate d Referral 08/26/2021 09/25/2022 1 1 [facility] Advance Directives Documents on File Type Date Recorded Patient Milk Inspector Expl anation Advance Directive(s) Documents on File Type Date Recorded Patient Milk Inspector Expl anation Advance Directive(s) Health Concerns Infection Onset Date Last Indicated Resolved Time COVID-19 Confirmed 04/28/2022 04/28/2022 Infection Onset Date Last Indicated Resolved Time COVID-19 Rule-Out 07/22/2021 07/22/2021 07/23/2021 1:41 AM EST COVID-19 Confirmed 07/22/2021 07/22/2021 2 8:53 PM EST COVID-19 Confirmed 04/28/2022 04/28/2022 2 8:52 PM EDT Reason for Referral Specialty Diagnoses / Procedures Referred By Contac t Referred To Contact Dermatology Diagnoses Dermatitis contact Procedures CONSULT TO DERMATOLOGY Jose Ta APRN.BULKING MACHINE OPERATOR [address] [place] [address] Referral ID Status Reason Start Date Expiration Date Visits Requested Visits Authorized [id number] Ref Not Required PCP Requested Referral 3 05/29/2024 1 1 Specialty Diagnoses / Procedures Referred By Contac t Referred To Contact MR IMAGING Diagnoses Fall, initial encounter Short-term memory loss Headaches Mood swings Age-related osteoporosis without current pathological fracture Cognitive impairment, mild, so stated Confusion Procedures MRI BRAIN WO IVCON MRI BRAIN BRAIN STEM W/O CONTRAST MATERIAL Lizzie Meier, DIRECTOR OF BUSINESS DEVELOPMENT.BULKING MACHINE OPERATOR [address] [place] [address] [place] [address] Referral ID Status Reason Start Date Expiration Date Visits Requested Visits Authorized [id number] Pending Review Auto-Generat ed Referral 12/01/2023 12/30/2024 1 1 Specialty Diagnoses / Procedures Referred By Contac t Referred To Contact XR IMAGING Diagnoses Age-related osteoporosis without current pathological fracture Screening for osteoporosis Asymptomatic menopause Procedures DXA-AXIAL SKELETON Lizzie Meier, DIRECTOR OF BUSINESS DEVELOPMENT.BULKING MACHINE OPERATOR [address] [place] [address] [place] [address] Referral ID Status Reason Start Date Expiration Date Visits Requested Visits Authorized [id number] Pending Review Auto-Generat ed Referral 12/01/2023 12/30/2024 1 1 Referral ID Status Reason Start Date Expiration Date V isits Requested Visits Authorized [id number] Closed Auto-Generate d Referral 12/01/2023 12/30/2024 1 1 Specialty Diagnoses / Procedures Referred By Contac t Referred To Contact Diagnoses Short-term memory loss Headaches Cognitive impairment, mild, so stated Procedures CONSULT TO [facility]/OUTPATIENT [facility] 60 MINUTES Lizzie Meier, DIRECTOR OF BUSINESS DEVELOPMENT.BULKING MACHINE OPERATOR [address] [place] [address] Referral ID Status Reason Start Date Expiration Date Visits Requested Visits Authorized [id number] Authorized PCP Requested Referral 12/19/2023 12/18/2024 1 1 Specialty Diagnoses / Procedures Referred By Contac t Referred To Contact Neurology Diagnoses Cognitive impairment Procedures CONSULT TO NEUROLOGY OFFICE/OUTPATIENT [facility] 60 MINUTES Kei Pineda DO [address] [place] [address] Referral ID Status Reason Start Date Expiration Date Visits Requested Visits Authorized [id number] Authorized PCP Requested Referral 02/20/2024 02/19/2025 1 1 Summary Purpose Family History No Family History Records FoundNo Family History Records Found Additional Source Comments Source Comments (unrecognize d section and content) In the event this informatio n is protected by the Federal Confidentiality of Alcohol and Drug Abuse Patient Records regulations: The Federal rules restrict any use of the information to criminally investigate or prosecute any alcohol or drug abuse patient.[facility] HospitalIn the event this information is protected by the Federal Confidentiality of Alcohol and Drug Abuse Patient Records regulations: The Federal rules restrict any use of the information to criminally investigate or prosecute any alcohol or drug abuse patient.[facility] HospitalIn the event this information is protected by the Federal Confidentiality of Alcohol and Drug Abuse Patient Records regulations: The Federal rules restrict any use of the information to criminally investigate or prosecute any alcohol or drug abuse patient.[facility] HospitalIn the event this information is protected by the Federal Confidentiality of Alcohol and Drug Abuse Patient Records regulations: The Federal rules restrict any use of the information to criminally investigate or prosecute any alcohol or drug abuse patient.[facility] HospitalIn the event this information is protected by the Federal Confidentiality of Alcohol and Drug Abuse Patient Records regulations: The Federal rules restrict any use of the information to criminally investigate or prosecute any alcohol or drug abuse patient.[facility] HospitalIn the event this information is protected by the Federal Confidentiality of Alcohol and Drug Abuse Patient Records regulations: The Federal rules restrict any use of the information to criminally investigate or prosecute any alcohol or drug abuse patient.[facility] HospitalIn the event this information is protected by the Federal Confidentiality of Alcohol and Drug Abuse Patient Records regulations: The Federal rules restrict any use of the information to criminally investigate or prosecute any alcohol or drug abuse patient.[facility] HospitalIn the event this information is protected by the Federal Confidentiality of Alcohol and Drug Abuse Patient Records regulations: The Federal rules restrict any use of the information to criminally investigate or prosecute any alcohol or drug abuse patient.[facility] HospitalIn the event this information is protected by the Federal Confidentiality of Alcohol and Drug Abuse Patient Records regulations: The Federal rules restrict any use of the information to criminally investigate or prosecute any alcohol or drug abuse patient.[facility] HospitalIn the event this information is protected by the Federal Confidentiality of Alcohol and Drug Abuse Patient Records regulations: The Federal rules restrict any use of the information to criminally investigate or prosecute any alcohol or drug abuse patient.[facility] HospitalIn the event this information is protected by the Federal Confidentiality of Alcohol and Drug Abuse Patient Records regulations: The Federal rules restrict any use of the information to criminally investigate or prosecute any alcohol or drug abuse patient.[facility] HospitalIn the event this information is protected by the Federal Confidentiality of Alcohol and Drug Abuse Patient Records regulations: The Federal rules restrict any use of the information to criminally investigate or prosecute any alcohol or drug abuse patient.[facility] HospitalIn the event this information is protected by the Federal Confidentiality of Alcohol and Drug Abuse Patient Records regulations: The Federal rules restrict any use of the information to criminally investigate or prosecute any alcohol or drug abuse patient.[facility] HospitalIn the event this information is protected by the Federal Confidentiality of Alcohol and Drug Abuse Patient Records regulations: The Federal rules restrict any use of the information to criminally investigate or prosecute any alcohol or drug abuse patient.[facility] HospitalIn the event this information is protected by the Federal Confidentiality of Alcohol and Drug Abuse Patient Records regulations: The Federal rules restrict any use of the information to criminally investigate or prosecute any alcohol or drug abuse patient.[facility] HospitalIn the event this information is protected by the Federal Confidentiality of Alcohol and Drug Abuse Patient Records regulations: The Federal rules restrict any use of the information to criminally investigate or prosecute any alcohol or drug abuse patient.[facility] HospitalIn the event this information is protected by the Federal Confidentiality of Alcohol and Drug Abuse Patient Records regulations: The Federal rules restrict any use of the information to criminally investigate or prosecute any alcohol or drug abuse patient.[facility] HospitalIn the event this information is protected by the Federal Confidentiality of Alcohol and Drug Abuse Patient Records regulations: The Federal rules restrict any use of the information to criminally investigate or prosecute any alcohol or drug abuse patient.[facility] HospitalIn the event this information is protected by the Federal Confidentiality of Alcohol and Drug Abuse Patient Records regulations: The Federal rules restrict any use of the information to criminally investigate or prosecute any alcohol or drug abuse patient.[facility] HospitalIn the event this information is protected by the Federal Confidentiality of Alcohol and Drug Abuse Patient Records regulations: The Federal rules restrict any use of the information to criminally investigate or prosecute any alcohol or drug abuse patient.[facility] HospitalIn the event this information is protected by the Federal Confidentiality of Alcohol and Drug Abuse Patient Records regulations: The Federal rules restrict any use of the information to criminally investigate or prosecute any alcohol or drug abuse patient.[facility] HospitalIn the event this information is protected by the Federal Confidentiality of Alcohol and Drug Abuse Patient Records regulations: The Federal rules restrict any use of the information to criminally investigate or prosecute any alcohol or drug abuse patient.[facility] HospitalIn the event this information is protected by the Federal Confidentiality of Alcohol and Drug Abuse Patient Records regulations: The Federal rules restrict any use of the information to criminally investigate or prosecute any alcohol or drug abuse patient.[facility] HospitalIn the event this information is protected by the Federal Confidentiality of Alcohol and Drug Abuse Patient Records regulations: The Federal rules restrict any use of the information to criminally investigate or prosecute any alcohol or drug abuse patient.[facility] HospitalIn the event this information is protected by the Federal Confidentiality of Alcohol and Drug Abuse Patient Records regulations: The Federal rules restrict any use of the information to criminally investigate or prosecute any alcohol or drug abuse patient.[facility] HospitalIn the event this information is protected by the Federal Confidentiality of Alcohol and Drug Abuse Patient Records regulations: The Federal rules restrict any use of the information to criminally investigate or prosecute any alcohol or drug abuse patient.[facility] HospitalIn the event this information is protected by the Federal Confidentiality of Alcohol and Drug Abuse Patient Records regulations: The Federal rules restrict any use of the information to criminally investigate or prosecute any alcohol or drug abuse patient.[facility] HospitalIn the event this information is protected by the Federal Confidentiality of Alcohol and Drug Abuse Patient Records regulations: The Federal rules restrict any use of the information to criminally investigate or prosecute any alcohol or drug abuse patient.[facility] HospitalIn the event this information is protected by the Federal Confidentiality of Alcohol and Drug Abuse Patient Records regulations: The Federal rules restrict any use of the information to criminally investigate or prosecute any alcohol or drug abuse patient.[facility] HospitalIn the event this information is protected by the Federal Confidentiality of Alcohol and Drug Abuse Patient Records regulations: The Federal rules restrict any use of the information to criminally investigate or prosecute any alcohol or drug abuse patient.[facility] HospitalIn the event this information is protected by the Federal Confidentiality of Alcohol and Drug Abuse Patient Records regulations: The Federal rules restrict any use of the information to criminally investigate or prosecute any alcohol or drug abuse patient.[facility] HospitalIn the event this information is protected by the Federal Confidentiality of Alcohol and Drug Abuse Patient Records regulations: The Federal rules restrict any use of the information to criminally investigate or prosecute any alcohol or drug abuse patient.[facility] HospitalIn the event this information is protected by the Federal Confidentiality of Alcohol and Drug Abuse Patient Records regulations: The Federal rules restrict any use of the information to criminally investigate or prosecute any alcohol or drug abuse patient.[facility] HospitalIn the event this information is protected by the Federal Confidentiality of Alcohol and Drug Abuse Patient Records regulations: The Federal rules restrict any use of the information to criminally investigate or prosecute any alcohol or drug abuse patient.[facility] HospitalIn the event this information is protected by the Federal Confidentiality of Alcohol and Drug Abuse Patient Records regulations: The Federal rules restrict any use of the information to criminally investigate or prosecute any alcohol or drug abuse patient.[facility] HospitalIn the event this information is protected by the Federal Confidentiality of Alcohol and Drug Abuse Patient Records regulations: The Federal rules restrict any use of the information to criminally investigate or prosecute any alcohol or drug abuse patient.[facility] HospitalIn the event this information is protected by the Federal Confidentiality of Alcohol and Drug Abuse Patient Records regulations: The Federal rules restrict any use of the information to criminally investigate or prosecute any alcohol or drug abuse patient.[facility] HospitalIn the event this information is protected by the Federal Confidentiality of Alcohol and Drug Abuse Patient Records regulations: The Federal rules restrict any use of the information to criminally investigate or prosecute any alcohol or drug abuse patient.[facility] HospitalIn the event this information is protected by the Federal Confidentiality of Alcohol and Drug Abuse Patient Records regulations: The Federal rules restrict any use of the information to criminally investigate or prosecute any alcohol or drug abuse patient.[facility] HospitalIn the event this information is protected by the Federal Confidentiality of Alcohol and Drug Abuse Patient Records regulations: The Federal rules restrict any use of the information to criminally investigate or prosecute any alcohol or drug abuse patient.[facility] HospitalIn the event this information is protected by the Federal Confidentiality of Alcohol and Drug Abuse Patient Records regulations: The Federal rules restrict any use of the information to criminally investigate or prosecute any alcohol or drug abuse patient.[facility] HospitalIn the event this information is protected by the Federal Confidentiality of Alcohol and Drug Abuse Patient Records regulations: The Federal rules restrict any use of the information to criminally investigate or prosecute any alcohol or drug abuse patient.[facility] HospitalIn the event this information is protected by the Federal Confidentiality of Alcohol and Drug Abuse Patient Records regulations: The Federal rules restrict any use of the information to criminally investigate or prosecute any alcohol or drug abuse patient.[facility] HospitalIn the event this information is protected by the Federal Confidentiality of Alcohol and Drug Abuse Patient Records regulations: The Federal rules restrict any use of the information to criminally investigate or prosecute any alcohol or drug abuse patient.[facility] HospitalIn the event this information is protected by the Federal Confidentiality of Alcohol and Drug Abuse Patient Records regulations: The Federal rules restrict any use of the information to criminally investigate or prosecute any alcohol or drug abuse patient.[facility] HospitalIn the event this information is protected by the Federal Confidentiality of Alcohol and Drug Abuse Patient Records regulations: The Federal rules restrict any use of the information to criminally investigate or prosecute any alcohol or drug abuse patient.[facility] HospitalIn the event this information is protected by the Federal Confidentiality of Alcohol and Drug Abuse Patient Records regulations: The Federal rules restrict any use of the information to criminally investigate or prosecute any alcohol or drug abuse patient.[facility] HospitalIn the event this information is protected by the Federal Confidentiality of Alcohol and Drug Abuse Patient Records regulations: The Federal rules restrict any use of the information to criminally investigate or prosecute any alcohol or drug abuse patient.[facility] HospitalIn the event this information is protected by the Federal Confidentiality of Alcohol and Drug Abuse Patient Records regulations: The Federal rules restrict any use of the information to criminally investigate or prosecute any alcohol or drug abuse patient.[facility] HospitalIn the event this information is protected by the Federal Confidentiality of Alcohol and Drug Abuse Patient Records regulations: The Federal rules restrict any use of the information to criminally investigate or prosecute any alcohol or drug abuse patient.[facility] HospitalIn the event this information is protected by the Federal Confidentiality of Alcohol and Drug Abuse Patient Records regulations: The Federal rules restrict any use of the information to criminally investigate or prosecute any alcohol or drug abuse patient.[facility] HospitalIn the event this information is protected by the Federal Confidentiality of Alcohol and Drug Abuse Patient Records regulations: The Federal rules restrict any use of the information to criminally investigate or prosecute any alcohol or drug abuse patient.[facility] HospitalIn the event this information is protected by the Federal Confidentiality of Alcohol and Drug Abuse Patient Records regulations: The Federal rules restrict any use of the information to criminally investigate or prosecute any alcohol or drug abuse patient.[facility] HospitalIn the event this information is protected by the Federal Confidentiality of Alcohol and Drug Abuse Patient Records regulations: The Federal rules restrict any use of the information to criminally investigate or prosecute any alcohol or drug abuse patient.[facility] HospitalIn the event this information is protected by the Federal Confidentiality of Alcohol and Drug Abuse Patient Records regulations: The Federal rules restrict any use of the information to criminally investigate or prosecute any alcohol or drug abuse patient.[facility] HospitalIn the event this information is protected by the Federal Confidentiality of Alcohol and Drug Abuse Patient Records regulations: The Federal rules restrict any use of the information to criminally investigate or prosecute any alcohol or drug abuse patient.[facility] HospitalIn the event this information is protected by the Federal Confidentiality of Alcohol and Drug Abuse Patient Records regulations: The Federal rules restrict any use of the information to criminally investigate or prosecute any alcohol or drug abuse patient.[facility] Reason for Visit (unrecogniz ed section and content) Reason Comments Physical Therapy Specialty Diagnoses / Procedures Referred By Contac t Referred To Contact [facility] Diagnoses Cervicalgia Chronic pain syndrome Diffuse myofascial pain syndrome Spondylosis Primary osteoarthritis involving multiple joints Neck pain Procedures CONSULT TO PHYSICAL THERAPY PHYSICAL THERAPY EVALUATION HIGH COMPLEX 45 MINS Gerardo Milligan, DIRECTOR OF BUSINESS DEVELOPMENT.BULKING MACHINE OPERATOR [address] [place] [address] [facility] [address] [place] [address] Referral ID Status Reason Start Date Expiration Date Visits Requested Visits Authorized [id number] Authorized PCP Requested Referral Auto-Generate d Referral 03/04/2022 03/04/2023 99 99 Reason Onset Date Comments Population Health Navigation Outreach 10/12/2021 [facility] [place] [facility] Reason Comments ER F/U became unresposive a t home er called blood sugar dropped to 45 , took to hospital Reason Comments Results Reason Comments Follow Up Reason Comments Refill Request Reason Comments Weight Check Reason Comments Weight Check Neck Pain 2/3 weeks Nausea Reason Comments PT Eval Reason Comments Cough Cough, nasal draiana ge , headaches, body aches,chest hurts started tuesday Reason Comments Covid19 Concern Reason Comments Patient Update Appointment Reason Comments ER F/U Reason Comments Orders Reason Comments Follow Up 2 months Reason Comments Appointment TCM Reason Comments Patient Update Medication Request Reason Comments Anxiety Reason Comments Patient Question Reason Comments Appointment Rescheduled Reason Comments New Pain Swelling Reason Comments Follow Up Reason Comments Post Op Pain Swelling Reason Comments bh consult Reason Comments Shoulder Injury left x 4 days, reach ed back Reason Comments Psoriasis Scalp Reason Onset Date Comments Refill Request 11/21/2023 Reason Comments follow up meds and headaches Specialty Diagnoses / Procedures Referred By Contac t Referred To Contact [facility] Diagnoses Fall, initial encounter Short-term memory loss Headaches Mood swings Age-related osteoporosis without current pathological fracture Cognitive impairment, mild, so stated Confusion Procedures MRI BRAIN WO IVCON MRI BRAIN BRAIN STEM W/O CONTRAST MATERIAL Lizzie Meier, DIRECTOR OF BUSINESS DEVELOPMENT.BULKING MACHINE OPERATOR [address] [place] [address] [place] [address] Referral ID Status Reason Start Date Expiration Date V isits Requested Visits Authorized [id number] Closed Auto-Generate d Referral 12/01/2023 12/30/2024 1 1 Reason Comments Insurance Authorization Nystop powder Reason Comments Discussion On depression meds a nd memory issues Reason Comments Medication Request Reason Comments F/U 3 Month Reason Comments Follow Up Pain Reason Comments Results Pt is requesting lab results from Refill Request Care Teams (unrecognized sec tion and content) Poem Writer Relationship Specialty Start Date End Date Kei Pineda, DO [address] [place] [address] PCP - General Family Practice 04/29/20 Logan Portillo MD [address] [place] [address] Orthopedics 06/14/16 Poem Writer Relationship Specialty Start Date End Date Kei Pineda, DO [address] [place] [address] PCP - General Family Practice 04/29/20 Logan Portillo MD [address] [place] [address] Orthopedics 06/14/16 Poem Writer Relationship Specialty Start Date End Date Kei Pineda, DO [address] [place] [address] PCP - General Family Practice 04/29/20 Logan Portillo MD [address] [place] [address] Orthopedics 06/14/16 Poem Writer Relationship Specialty Start Date End Date Kei Pineda, DO [address] [place] [address] PCP - General Family Practice 04/29/20 Logan Portillo MD [address] [place] [address] Orthopedics 06/14/16 Poem Writer Relationship Specialty Start Date End Date Kei Pineda, DO [address] [place] [address] PCP - General Family Practice 04/29/20 Logan Portillo MD [address] [place] [address] Orthopedics 06/14/16 Poem Writer Relationship Specialty Start Date End Date Kei Pineda, DO [address] [place] [address] PCP - General Family Practice 04/29/20 Logan Portillo MD [address] [place] [address] Orthopedics 06/14/16 Poem Writer Relationship Specialty Start Date End Date Kei Pineda, DO [address] [place] [address] PCP - General Family Practice 04/29/20 Logan Portillo MD [address] [place] [address] Orthopedics 06/14/16 Poem Writer Relationship Specialty Start Date End Date Kei Pineda, DO [address] [place] [address] PCP - General Family Practice 04/29/20 Logan Portillo MD [address] [place] [address] Orthopedics 06/14/16 Poem Writer Relationship Specialty Start Date End Date Kei Pineda, DO [address] [place] [address] PCP - General Family Practice 04/29/20 Logan Portillo MD [address] [place] [address] Orthopedics 06/14/16 Poem Writer Relationship Specialty Start Date End Date Kei Pineda, DO [address] [place] [address] PCP - General Family Practice 04/29/20 Logan Portillo MD [address] [place] [address] Orthopedics 06/14/16 Poem Writer Relationship Specialty Start Date End Date Kei Pineda, DO [address] [place] [address] PCP - General Family Practice 04/29/20 Logan Portillo MD [address] [place] [address] Orthopedics 06/14/16 Poem Writer Relationship Specialty Start Date End Date Kei Pineda, DO [address] [place] [address] PCP - General Family Medicine 04/29/20 Logan Portillo MD [address] [place] [address] Orthopedics 06/14/16 Poem Writer Relationship Specialty Start Date End Date Kei Pineda, DO [address] [place] [address] PCP - General Family Medicine 04/29/20 Logan Portillo MD [address] [place] [address] Orthopedics 06/14/16 Poem Writer Relationship Specialty Start Date End Date Kei Pineda, DO [address] [place] [address] PCP - General Family Medicine 04/29/20 Logan Portillo MD [address] [place] [address] Orthopedics 06/14/16 Poem Writer Relationship Specialty Start Date End Date Kei Pineda, DO [address] [place] [address] PCP - General Family Medicine 04/29/20 Logan Portillo MD [address] [place] [address] Orthopedics 06/14/16 Poem Writer Relationship Specialty Start Date End Date Kei Pineda, DO [address] [place] [address] PCP - General Family Medicine 04/29/20 Logan Portillo MD [address] [place] [address] Orthopedics 06/14/16 Poem Writer Relationship Specialty Start Date End Date Kei Pineda, DO [address] [place] [address] PCP - General Family Medicine 04/29/20 Logan Portillo MD [address] [place] [address] Orthopedics 06/14/16 Poem Writer Relationship Specialty Start Date End Date Kei Pineda, DO [address] [place] [address] PCP - General Family Medicine 04/29/20 Logan Portillo MD [address] [place] [address] Orthopedics 06/14/16 Poem Writer Relationship Specialty Start Date End Date Kei Pineda, DO [address] [place] [address] PCP - General Family Medicine 04/29/20 Logan Portillo MD [address] [place] [address] Orthopedics 06/14/16 Poem Writer Relationship Specialty Start Date End Date Kei Pineda, DO [address] [address] [place] [address] PCP - General Family Medicine 04/29/20 Logan Portillo MD [address] [place] [address] Orthopedics 06/14/16 Poem Writer Relationship Specialty Start Date End Date Kei Pineda DO [address] [place] [address] PCP - General Family Medicine 04/29/20 Logan Portillo MD [address] [place] [address] Orthopedics 06/14/16 Poem Writer Relationship Specialty Start Date End Date Kei Pineda DO [address] [place] [address] PCP - General Family Medicine 04/29/20 Logan Portillo MD [address] [place] [address] Orthopedics 06/14/16 Poem Writer Relationship Specialty Start Date End Date Kei Pineda DO [address] [place] [address] PCP - General Family Medicine 04/29/20 Logan Portillo MD [address] [place] [address] Orthopedics 06/14/16 Poem Writer Relationship Specialty Start Date End Date Kei Pineda DO [address] [place] [address] PCP - General Family Medicine 04/29/20 Logan Portillo MD [address] [place] [address] Orthopedics 06/14/16 Poem Writer Relationship Specialty Start Date End Date Kei Pineda DO [address] [place] [address] PCP - General Family Medicine 04/29/20 Logan Portillo MD [address] [place] [address] Orthopedics 06/14/16 Poem Writer Relationship Specialty Start Date End Date Kei Pineda DO [address] [place] [address] PCP - General Family Medicine 04/29/20 Logan Portillo MD [address] [place] [address] Orthopedics 06/14/16 Poem Writer Relationship Specialty Start Date End Date Kei Pineda DO [address] [place] [address] PCP - General Family Medicine 04/29/20 Logan Portillo MD [address] [place] [address] Orthopedics 06/14/16 Poem Writer Relationship Specialty Start Date End Date Kei Pineda DO [address] [facility] [facility] [place] [address] PCP - General Family Medicine 04/29/20 Logan Portillo MD [address] [place] [address] Orthopedics 06/14/16 Poem Writer Relationship Specialty Start Date End Date Kei Pineda DO [address] [place] [address] PCP - General Family Medicine 04/29/20 Logan Portillo MD [address] [place] [address] [place] [address] Orthopedics 06/14/16 Poem Writer Relationship Specialty Start Date End Date Kei Pineda DO [address] [place] [address] PCP - General Family Medicine 04/29/20 Logan Portillo MD [address] [place] [address] Orthopedics 06/14/16 Poem Writer Relationship Specialty Start Date End Date Kei Pineda DO [address] [place] [address] PCP - General Family Medicine 04/29/20 Logan Portillo MD [address] [place] [address] Orthopedics 06/14/16 Poem Writer Relationship Specialty Start Date End Date Kei Pineda DO [address] [place] [address] PCP - General Family Medicine 04/29/20 Logan Portillo MD [address] [place] [address] Orthopedics 06/14/16 Poem Writer Relationship Specialty Start Date End Date Kei Pineda DO [address] [place] [address] PCP - General Family Medicine 04/29/20 Logan Portillo MD [address] [address] Orthopedics 06/14/16 Poem Writer Relationship Specialty Start Date End Date Kei Pineda DO [address] [place] [address] PCP - General Family Medicine 04/29/20 Logan Portillo MD [address] [place] [address] Orthopedics 06/14/16 Poem Writer Relationship Specialty Start Date End Date Kei Pineda DO [address] [place] [address] PCP - General Family Medicine 04/29/20 Logan Portillo MD [address] [place] [address] Orthopedics 06/14/16 Poem Writer Relationship Specialty Start Date End Date Kei Pineda DO [address] [place] [address] PCP - General Family Medicine 04/29/20 Logan Portillo MD [address] [place] [address] Orthopedics 06/14/16 Poem Writer Relationship Specialty Start Date End Date Kei Pineda DO [address] [place] [address] PCP - General Family Medicine 04/29/20 Logan Portillo MD [address] [place] [address] Orthopedics 06/14/16 Poem Writer Relationship Specialty Start Date End Date Kie Pineda DO [address] [place] [address] PCP - General Family Medicine 04/29/20 Logan Portillo MD [address] [place] [address] Orthopedics 06/14/16 Poem Writer Relationship Specialty Start Date End Date Kei Pineda DO [address] [place] [address] PCP - General Family Medicine 04/29/20 Logan Portillo MD [address] [place] [address] Orthopedics 06/14/16 Poem Writer Relationship Specialty Start Date End Date Kei Pineda DO [address] [place] [address] PCP - General Family Medicine 04/29/20 Logan Portillo MD [address] [place] [address] Orthopedics 06/14/16 Poem Writer Relationship Specialty Start Date End Date Kei Pineda DO [address] [place] [address] PCP - General Family Medicine 04/29/20 Logan Portillo MD [address] [place] [address] Orthopedics 06/14/16 Poem Writer Relationship Specialty Start Date End Date Kei Pineda DO [address] [place] [address] PCP - General Family Medicine 04/29/20 Logan Portillo MD [address] [place] [address] Orthopedics 06/14/16 Poem Writer Relationship Specialty Start Date End Date Kei Pineda DO [address] [place] [address] PCP - General Family Medicine 04/29/20 Logan Portillo MD [address] [place] [address] Orthopedics 06/14/16 Poem Writer Relationship Specialty Start Date End Date Kei Pineda DO [address] [place] [address] PCP - General Family Medicine 04/29/20 Logan Portillo MD [address] [place] [address] Orthopedics 06/14/16 Poem Writer Relationship Specialty Start Date End Date Kei Pnieda DO [address] [place] [address] PCP - General Family Medicine 04/29/20 Logan Portillo MD [address] [place] [address] Orthopedics 06/14/16 Poem Writer Relationship Specialty Start Date End Date Kei Pineda DO [address] [place] [address] PCP - General Family Medicine 04/29/20 Logan Portillo MD [address] [place] [address] Orthopedics 06/14/16 Poem Writer Relationship Specialty Start Date End Date Kei Pineda DO [address] [place] [address] PCP - General Family Medicine 04/29/20 Logan Portillo MD [address] [place] [address] Orthopedics 06/14/16 INFORMATION SOURCE (unrecogn ized section and content) DATE CREATED AUTHOR 03/23/2024 [facility] DATE CREATED AUTHOR AUTHOR'S ORGANXAVIER ATION 03/26/2024 [facility] FOR RECORDS PERTAINING TO PATIENTS WHO ARE OR HAVE BEEN ENROLLED IN A CHEMICAL DEPENDENCY/SUBSTANCEABUSE PROGRAM, SOME INFORMATION MAY BE OMITTED. This clinical summary was aggregated from multiple sources. Caution should be exercised in using it in the provision of clinical care. This summary normalizes information from multiple sources, and as a consequence, information in this document may materially change the coding, format and clinical context of patient data. In addition, data may be omitted in some cases. CLINICAL DECISIONS SHOULD BE BASED ON THE PRIMARY CLINICAL RECORDS. [facility]. provides no warranty or guarantee of the accuracy or completeness of information in this document.
== END | disposition home or self-care (01) ==
PROVIDERS: PCP Student in an Organized Health Care Education/Training Program; Referring Provider Otolaryngology; Visit Provider Otolaryngology
DX: R22.0 Localized swelling, mass and lump, head (principal)
CPT/HCPCS: 70491; Q9967; A4216

== ENCOUNTER 2024-05-27 17:53 | Observation (INO) | payer MEDICARE, OTHER, SELFPAY ==
[2024-05-27 17:55] VITALS: BP 131/53; PULSE 72; RESP 16; TEMP 35.9; O2SAT 99
[2024-05-27 18:04] VITALS: BMI 34.5
--- NOTE | 2024-05-27 18:35 | RAD_ITS ---
EXAM: XR LEFT ELBOW, 2 VIEWS CLINICAL INDICATION: fall pain TECHNIQUE: Frontal and lateral views of the left elbow. COMPARISON: No relevant prior studies available. FINDINGS: BONES/JOINTS: Unremarkable. There is no displacement of the anterior or posterior fat pads. No acute fracture. No subluxation. Normal alignment. Preservation of the joint space. No destructive or sclerotic lesions. SOFT TISSUES: Unremarkable. No soft tissue swelling or gas. No radiopaque foreign body. RAD/Elbow 2 Views IMPRESSION: Negative left elbow. Electronically Signed: Agustin Vang MD at 19:37 EST ,
--- NOTE | 2024-05-27 18:35 | RAD_ITS ---
EXAM: XR LEFT HUMERUS, 2 OR MORE VIEWS CLINICAL INDICATION: fall TECHNIQUE: Frontal and lateral views of the left humerus. COMPARISON: No relevant prior studies available. FINDINGS: BONES/JOINTS: Left proximal humeral fracture. Diffuse sclerosis around the fracture site no definite osseous union. There may be a component of pseudoarticulation. Preservation of the joint space. SOFT TISSUES: Unremarkable. No soft tissue swelling or gas. No radiopaque foreign body. RAD/Humerus min 2 Views IMPRESSION: Left proximal humeral fracture. Diffuse sclerosis around the fracture site no definite osseous union. There may be a component of pseudoarticulation. Electronically Signed: Agustin Vang MD at 19:38 EST ,
[2024-05-27] MEDS: Ondansetron ODT 4 MG Tablet PO (18:42)
[2024-05-27] MEDS: HYDROcodone Bitartrate/Apap 5/325 Tablet PO (18:42)
--- NOTE | 2024-05-27 18:45 | ED.RN ---
Patient transported to radiology
--- NOTE | 2024-05-27 21:07 | EX.ED.UPPERE ---
HPI History of Present Illness Chief Complaint: Upper Extremity Injury Narrative Narrative: Patient is a 74-year-old female with a past medical history of hypertension, dilated cardiomyopathy, GERD, depression, COPD who presented to the emergency department with a chief complaint of left elbow/arm pain. Patient states that earlier today she fell while attempting to take a Off a glue stick with when she lost her balance falling backwards. States that she hit her left elbow. States that she did not hit her head she did not pass out did not lose consciousness she remembers entire event. States that she did not come in right away as she needed to go to her sisters calling hours. Patient states that she has had increasing pain which prompted her to come here for further evaluation management. Patient states that she normally ambulates with a walker and was unable to do so secondary to the pain and states that today she tried to use her cane however family bedside states that she was very unsteady with this. [facility] Medical History Closed fracture of right distal humerus Broken shoulder Essential hypertension Dilated cardiomyopathy Bilateral pleural effusion Osteoporosis GERD (gastroesophageal reflux disease) Obesity Anemia Depression Osteoarthritis Obstructive sleep apnea COPD (chronic obstructive pulmonary disease) Home Medications ?Medication ?Instructions ?Recorded ?Last Taken ?Type calcium 500 mg (as 1 tab PO BID supplement 05/09/20 10/28/22 History carbonate)-vitamin D3 5 mcg (200 unit) tablet paroxetine HCl 30 mg tablet 40 mg PO DAILY depression 05/09/20 10/29/22 History bupropion HCl 150 mg tablet,12 hr 150 mg PO BID mood 11/02/22 Unknown History sustained-release albuterol 90 mcg/actuation aerosol 90 mcg inhalation .four times day 03/26/23 Unknown History inhaler lungs ergocalciferol (vitamin D2) 1,250 50,000 unit PO .every tuesday bones 03/26/23 Unknown History mcg (50,000 unit) capsule famotidine 20 mg tablet (Acid 20 mg PO BID acid reflux 03/26/23 Unknown History Controller) vitamin B complex 1 tab PO DAILY supp 03/26/23 Unknown History acetaminophen 500 mg tablet 1,000 mg PO TID pain 01/16/24 Unknown History calcium 500 mg (as citrate)-vit D3 1 tab PO DAILY supplement 01/16/24 Unknown History 12.5 mcg (500 unit) chewable tablet carbamide peroxide 6.5 % ear drops 5 drp RIGHT EAR DAILY ear wax 01/16/24 Unknown History (Ear Wax Removal Drops) clotrimazole 1 % topical cream 1 applic topical BID cream 01/16/24 Unknown History gabapentin 100 mg capsule 100 - 200 mg PO TID pain 01/16/24 Unknown History ketoconazole 2 % shampoo 1 applic topical DAILY shampoo 01/16/24 Unknown History ketoconazole 2 % topical cream 1 applic topical BID cream 01/16/24 Unknown History montelukast 10 mg tablet 10 mg PO DAILY COPD 01/16/24 Unknown History nystatin 100,000 unit/gram topical 1 applic topical BID rash 01/16/24 Unknown History powder polyethylene glycol 3350 17 17 g PO DAILY bowel movements 01/16/24 Unknown History gram/dose oral powder (ClearLax) polysaccharide iron complex 150 mg 150 mg PO DAILY iron 01/16/24 Unknown History iron capsule (Ferrex) potassium chloride 20 mEq 20 meq PO BID supplement 01/16/24 Unknown History tablet,extended release(part/cryst) (Klor-Con M) sennosides 8.6 mg-docusate sodium 1 tab-cap PO BID stool softner 01/16/24 Unknown History 50 mg tablet (Senna-S) venlafaxine 37.5 mg 37.5 mg PO DAILY mood 01/16/24 Unknown History capsule,extended release 24 hr cefdinir 300 mg capsule 300 mg PO BID #10 caps 01/17/24 Unknown Rx furosemide 40 mg tablet 40 mg PO DAILY water pill 60 days 01/17/24 Unknown Rx #60 tabs magnesium chloride 64 mg 128 mg (2 x 64 mg) PO BID 30 days 01/17/24 Unknown Rx (magnesium chloride) #120 tabs tablet,delayed release (Mag 64) amiodarone 200 mg tablet 200 mg PO DAILY #90 tabs 02/03/24 Unknown Rx carvedilol 6.25 mg tablet 6.25 mg PO BID #180 tabs 02/03/24 Unknown Rx losartan 25 mg tablet 25 mg PO DAILY #90 tabs 02/03/24 Unknown Rx rivaroxaban 20 mg tablet (Xarelto) 20 mg PO QDAY #90 tabs 03/19/24 Unknown Rx Allergy/AdvReac Type Severity Reaction Status Date / Time adhesive tape Allergy Mild blisters Verified 05/27/24 17:55 diclofenac (From Voltaren) Allergy Rash Verified 05/27/24 17:54 hydroxyzine (From Vistaril) AdvReac Intermediate hallucinati Verified 05/27/24 17:54 ons hydrocodone (From Vicodin) AdvReac Other Verified 05/27/24 17:54 Family History Mother Diabetes Heart disease Hypertension Hyperlipidemia Father Diabetes Heart disease Hypertension Hyperlipidemia Surgical History History of left heart catheterization (12/05/18) History of open reduction and internal fixation (ORIF) procedure History of herniorrhaphy History of Hx of cholecystectomy History of tonsillectomy History of gastric bypass History of open reduction and internal fixation (ORIF) procedure Social History household members: family Smoking Status: Former smoker alcohol intake: never substance use type: does not use ROS ROS ED ROS Narrative Constitutional: Denies any headaches, fevers, chills, lightness, dizziness Cardiovascular: Denies chest pain or palpitations Respiratory: Denies shortness of breath Abdomen: Denies abdominal pain Neurological: Denies any numbness, weakness, tingling Musculoskeletal: Complains of left elbow pain as noted above Skin: Complains of swelling to the left elbow EXAM Physical Exam Narrative Exam Narrative: General: Patient lying in bed did appear to be uncomfortable secondary to her pain Head: Atraumatic, normocephalic Eyes: PERRL bilateral, EOMI by, no conjunctival injection noted Neck: Soft, supple, trachea midline Cardiovascular: Regular rate and rhythm no murmurs gallops rubs noted Respiratory: Clear to auscultation bilaterally Abdomen: No tenderness palpation Musculoskeletal: Patient has pain with attempted range of motion of her left elbow Extremities: Radial pulses +2/4 in the bilateral upper extremities, inspector and mender strength +5/5 in the bilateral upper extremities Neurological: Sensation grossly intact in the median, ulnar, radial nerves as well as axillary nerve distribution bilaterally patient was following commands and that she was at [facility] years 2023 Skin: Patient has significant hematoma noted proximal to her left elbow Const Vital Signs: 05/27/24 17:55 Temperature 96.7 F L Temperature Source Temporal Pulse Rate 72 Respiratory Rate 16 Blood Pressure 131/53 H Blood Pressure Mean 79 Pulse Ox 99 Oxygen Delivery Method Room Air MDM MDM MDM Narrative Medical decision making narrative: Patient is a 74-year-old female who presented to the emergency department chief complaint of left elbow pain and swelling. Patient will have a workup performed here on the differential diagnose includes Melamin to elbow fracture, distal humerus fracture, proximal humerus fracture, hematoma. Once workup is obtained reviewed she will be reevaluated. Patient's x-ray of her left elbow showed no acute fractures. Patient's humerus on the left side was reviewed and showed a left proximal humeral fracture. Patient and family bedside states that she has broken the shoulder before and it has been there for a significant time now this is not new. On reevaluation the patient she is still having significant pain and can barely move her elbow. She states that she cannot get around with her walker which she normally ambulates with. I do believe she will warrant admission for observation of her left elbow. Patient is agreeable this plan patient case will be discussed with hospitalist Did discuss case with hospitalist Dr. Guadalupe who accept the patient for admission. Patient is agreeable this plan all question concerns answered. Radiography Diagnostic Testing: Clinical Impression(s) from Imaging Studies Elbow X-Ray 05/27/24 18:35 IMPRESSION: Negative left elbow. Electronically Signed: Agustin Vang MD at 19:37 EST , Humerus X-Ray 05/27/24 18:35 IMPRESSION: Left proximal humeral fracture. Diffuse sclerosis around the fracture site no definite osseous union. There may be a component of pseudoarticulation. Electronically Signed: Agustin Vang MD at 19:38 EST , Discharge Plan Triage Chief Complaint: Upper Extremity Injury ED Provider: Jarrett Hi Dx/Rx/DC Orders Clinical Impression: Left elbow pain Primary Care Provider: Kei Pineda Disposition [facility]
--- NOTE | 2024-05-27 21:25 | HP.PCM.HOS_ITS ---
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, HTN, HLD, Chronic anemia, Obesity, GERD, Dilated Cardiomyopathy, PAF, COPD, JIMMY not using PAP therapy, Anxiety and Depression who presents to the [facility] ED on 05/27/24 with history of mechanical fall earlier in the day secondary to losing her balance while performing something with no trauma to her head or loss of consciousness but had ongoing significant pain 10 of 10 with any usage attempts and enlarging hematoma to the region eventually prompting later in the day evaluation in the ED to have full evaluation as she was also noting having difficulty using her walker. Workup in the ED included T96.7, heart 72, BP 131/53, respiratory rate 16, 99% room air, plain film of the left elbow with no acute fracture or dislocation, plain film of the left humerus initially read as a left proximal humeral fracture however there was noted to few sclerosis around the fracture site with no definitive osseous union with possible component of pseudoarticulation with eventual overread for clarification that this appears to be an old nonunion fracture and not new. Upon evaluation labs had not been resulted but have now been completed with CBC with WBC 5.2 hemoglobin 11.8, MCV 88.2, platelet 226 without shift, BMP not marked appearing aside chloride 108. In the ED patient had been administered Zofran 4 mg IV x 1, morphine 4 mg IV x 1 as well as hydrocodone 1 tablet p.o. x 1. Initially there had been some concern related per the ED physician for possible compartment however upon evaluation of patient it appears that she has a hematoma that soft and not tense at all and she is able to fully move her extremity although there is pain related therefore discussed with the ED physician and at this time we will have a snug Dominik wrap placed as well as continued icing to the region and will continue to hold patient oral anticoagulant therapy. She denies having taken her dose this evening. Currently she does state her pain is 7 out of 10 in severity but primarily when she does starts attempting to move it more aggressively. She does state that she normally uses a walker but is able to also use a cane but did not have one with her. [facility] Medical History Closed fracture of right distal humerus Broken shoulder Essential hypertension Dilated cardiomyopathy Bilateral pleural effusion Osteoporosis GERD (gastroesophageal reflux disease) Obesity Anemia Depression Osteoarthritis Obstructive sleep apnea COPD (chronic obstructive pulmonary disease) Home Medications ?Medication ?Instructions ?Recorded ?Last Taken ?Type calcium 500 mg (as 1 tab PO BID supplement 05/09/20 10/28/22 History carbonate)-vitamin D3 5 mcg (200 unit) tablet paroxetine HCl 30 mg tablet 40 mg PO DAILY depression 05/09/20 10/29/22 History bupropion HCl 150 mg tablet,12 hr 150 mg PO BID mood 11/02/22 Unknown History sustained-release albuterol 90 mcg/actuation aerosol 90 mcg inhalation .four times day 03/26/23 Unknown History inhaler lungs ergocalciferol (vitamin D2) 1,250 50,000 unit PO .every tuesday bones 03/26/23 Unknown History mcg (50,000 unit) capsule famotidine 20 mg tablet (Acid 20 mg PO BID acid reflux 03/26/23 Unknown History Controller) vitamin B complex 1 tab PO DAILY supp 03/26/23 Unknown History acetaminophen 500 mg tablet 1,000 mg PO TID pain 01/16/24 Unknown History calcium 500 mg (as citrate)-vit D3 1 tab PO DAILY supplement 01/16/24 Unknown History 12.5 mcg (500 unit) chewable tablet carbamide peroxide 6.5 % ear drops 5 drp RIGHT EAR DAILY ear wax 01/16/24 Unknown History (Ear Wax Removal Drops) clotrimazole 1 % topical cream 1 applic topical BID cream 01/16/24 Unknown History gabapentin 100 mg capsule 100 - 200 mg PO TID pain 01/16/24 Unknown History ketoconazole 2 % shampoo 1 applic topical DAILY shampoo 01/16/24 Unknown History ketoconazole 2 % topical cream 1 applic topical BID cream 01/16/24 Unknown History montelukast 10 mg tablet 10 mg PO DAILY COPD 01/16/24 Unknown History nystatin 100,000 unit/gram topical 1 applic topical BID rash 01/16/24 Unknown History powder polyethylene glycol 3350 17 17 g PO DAILY bowel movements 01/16/24 Unknown History gram/dose oral powder (ClearLax) polysaccharide iron complex 150 mg 150 mg PO DAILY iron 01/16/24 Unknown History iron capsule (Ferrex) potassium chloride 20 mEq 20 meq PO BID supplement 01/16/24 Unknown History tablet,extended release(part/cryst) (Klor-Con M) sennosides 8.6 mg-docusate sodium 1 tab-cap PO BID stool softner 01/16/24 Unknown History 50 mg tablet (Senna-S) venlafaxine 37.5 mg 37.5 mg PO DAILY mood 01/16/24 Unknown History capsule,extended release 24 hr cefdinir 300 mg capsule 300 mg PO BID #10 caps 01/17/24 Unknown Rx furosemide 40 mg tablet 40 mg PO DAILY water pill 60 days 01/17/24 Unknown Rx #60 tabs magnesium chloride 64 mg 128 mg (2 x 64 mg) PO BID 30 days 01/17/24 Unknown Rx (magnesium chloride) #120 tabs tablet,delayed release (Mag 64) amiodarone 200 mg tablet 200 mg PO DAILY #90 tabs 02/03/24 Unknown Rx carvedilol 6.25 mg tablet 6.25 mg PO BID #180 tabs 02/03/24 Unknown Rx losartan 25 mg tablet 25 mg PO DAILY #90 tabs 02/03/24 Unknown Rx rivaroxaban 20 mg tablet (Xarelto) 20 mg PO QDAY #90 tabs 03/19/24 Unknown Rx Allergy/AdvReac Type Severity Reaction Status Date / Time adhesive tape Allergy Mild blisters Verified 05/27/24 17:55 diclofenac (From Voltaren) Allergy Rash Verified 05/27/24 17:54 hydroxyzine (From Vistaril) AdvReac Intermediate hallucinati Verified 05/27/24 17:54 ons hydrocodone (From Vicodin) AdvReac Other Verified 05/27/24 17:54 Family History Mother Diabetes Heart disease Hypertension Hyperlipidemia Father Diabetes Heart disease Hypertension Hyperlipidemia Surgical History History of left heart catheterization (12/05/18) History of open reduction and internal fixation (ORIF) procedure History of herniorrhaphy History of Hx of cholecystectomy History of tonsillectomy History of gastric bypass History of open reduction and internal fixation (ORIF) procedure Social History household members: family Smoking Status: Former smoker alcohol intake: never substance use type: does not use ROS ROS Narrative Admission Review of Systems: CONSTITUTIONAL: No weight loss, fever, chills, + weakness or fatigue. HEENT: Eyes: No visual loss, blurred vision, double vision or yellow sclerae. Ears, Nose, Throat: No hearing loss, sneezing, congestion, runny nose or sore throat. SKIN: No rash or itching, lesions, wounds except + ecchymoses status post recent fall with significant hematoma evident to the left upper extremity, enlarging hematoma. CARDIOVASCULAR: No chest pain, chest pressure or chest discomfort, palpitations, edema, orthopnea, syncopal events. RESPIRATORY: No shortness of breath, cough or sputum, wheezing, hemoptysis. GASTROINTESTINAL: + Transient nausea, anorexia secondary to pain. No vomiting or diarrhea, abdominal pain, melena, BRBPR. GENITOURINARY: No dysuria, frequency, urgency or retention. NEUROLOGICAL: No headache, dizziness, syncope, paralysis, ataxia, numbness or tingling in the extremities, focal weakness, change in bowel or bladder control, seizure. MUSCULOSKELETAL: + muscle, back pain, joint pain or stiffness. HEMATOLOGIC: + Chronic anemia, easy bleeding/bruising. LYMPHATICS: No enlarged nodes. No history of splenectomy. PSYCHIATRIC: + History of anxiety and depression. ENDOCRINOLOGIC: No reports of sweating, cold or heat intolerance. No polyuria or polydipsia. ALLERGIES: No history of asthma, hives, eczema or rhinitis. Vital Signs Vital Signs Vital Signs: 05/27/24 17:55 Temperature 96.7 F L Temperature Source Temporal Pulse Rate 72 Respiratory Rate 16 Blood Pressure 131/53 H Blood Pressure Mean 79 Pulse Ox 99 Oxygen Delivery Method Room Air Weight Weight: 171 lb 1.259 oz Body Mass Index (BMI) 34.5 Physical Exam Narrative Physical Examination: General: Awake, alert, oriented x 3 and cooperative, seated upright in the ED bed, fatigued, notes pain primarily with any activity the left upper extremity and rates a 10 out of 10 when she is attempting to use it. Skin: Normal color, normal turgor, no icterus, no cyanosis except for significant left upper extremity ecchymoses, notable hematoma but it soft and she is able to move her arm, peripheral pulses intact. HEENT: AT/NC, EOMI, PERRLA, mildly dry MM, no carotid bruits or JVD noted. Lungs: Mildly diminished, greater bases, appropriate effort, no rales, ronchi or wheezing. Heart: Regular rate and rhythm; no gallop, rub audible. Abdomen: Soft, obese, NTTP, ND, normal BS, no appreciated HSM. Extremities: No cyanosis, no clubbing, mild bilateral ankle edema, see skin for left upper extremity evaluation. Neurological: Patient awake, alert, oriented as noted, cognitive function intact; pupils equally reactive to light and accommodation, cranial nerves grossly normal, moving all 4 extremities although limited left upper extremity movement secondary to pain primarily, no specific focal deficit, strength moderately globally decreased. Psychiatric: Affect appears uncomfortable, fatigued, no acute evidence of depressive or anxiety feelings but does have underlying history. Results Lab / Micro Data 05/27/24 21:13 05/27/24 21:13 Imaging Radiology Impression Elbow X-Ray 05/27/24 18:35 IMPRESSION: Negative left elbow. Electronically Signed: Agustin Vang MD at 19:37 EST , Humerus X-Ray 05/27/24 18:35 IMPRESSION: Left proximal humeral fracture. Diffuse sclerosis around the fracture site no definite osseous union. There may be a component of pseudoarticulation. 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, HTN, HLD, Chronic anemia, Obesity, GERD, Dilated Cardiomyopathy, PAF, COPD, JIMMY not using PAP therapy, Anxiety and Depression who presents to the [facility] ED on 05/27/24 with history of mechanical fall earlier in the day secondary to losing her balance while performing something with no trauma to her head or loss of consciousness but had ongoing significant pain 10 of 10 with any usage attempts and enlarging hematoma to the region eventually prompting later in the day evaluation in the ED to have full evaluation as she was also noting having difficulty using her walker. #1. Mechanical fall with left upper extremity hematoma on chronic anticoagulant therapy with intractable pain: Given patient intractable pain and significant hematoma size to be cautious will admit to medical surgical floor, maintain on fall precautions, continue with snug dominik wrap to the left upper extremity hematoma while continuing to monitor cap refill and pulses with review every shift and continued ice packs as well as hold on oral anticoagulant therapy with last dose in the morning on day of presentation, given left upper extremity fracture is the old nonunion fracture no evidence of anything acute will allow full range of motion but for comfort she may use a sling if necessary, will have oral and IV pain regimen, continue patient home gabapentin regimen but certainly could consider increasing it if needed, will maintain on fall precautions, PT/OT/case management consulted for discharge planning. #2. Chronic normocytic anemia/iron deficiency anemia: Admission hemoglobin 11.8, MCV 88.2, similar to baseline most recently noted prior 01/17/2024 hemoglobin 11.8 also, will continue to trend given hematoma on chronic anticoagulant therapy, continue iron supplementation. #3. PAF: We will continue patient on Coreg, amiodarone home regimen, holding Xarelto as noted given #1. #4. Hypertension: Continue home regimen including losartan, Coreg, PRN hydralazine. #5. Hyperlipidemia: Per current list does not appear to be on regimen, clarifying. #6. Dilated cardiomyopathy: Most recent echocardiogram noted 01/16/2024 with normal LV size, mild concentric LVH, LVEF 20%, severe global hypokinesis of LV, mild to moderate TBI, bubble contrast study negative with contrast injection performed with follow-up cardiac catheterization that same day with nonobstructive coronary arteries diagnosed with dilated cardiopathy with atrial flutter at that time 2-1 conduction with recommended medical treatment and control of arrhythmia, will continue as noted Coreg, amiodarone, holding Eliquis given #1 #7. Chronic COPD: Will maintain on ATC budesonide therapy, PRN albuterol, HOB, IS parameters. #8. Anxiety and depression: We will continue patient home bupropion and venlafaxine regimen but clarifying regimen as she has had several changes recently. #9. Obesity: Weight loss and lifestyle changes encouraged. #10. GERD: We will continue patient famotidine regimen. #11. JIMMY: Not PAP compliant. #12. DVT prophylaxis: SCDs. #13. CODE status: Patient HCPOA and living will are not in place but she notes her son would be her medical decision-maker if necessary, discussed CODE status at length including difference between FULL code, DNR-CCA and DNR-CC status. Following discussions about the differences in these status, requested Full Code status. Charges/Coding Visit Charges Inpatient E&M: 82585 Init Hosp L3
[2024-05-27 21:31] LABS: Absolute Lymphocyte Count 2.32 X10^3/uL (0.83-4.51); Absolute Neutrophil Count 2.4 X10^3/uL (2.0-7.7); Basophil# 0.04 X10^3/uL; Basophil% 0.8 % (0-1); Eosinophil# 0.07 X10^3/uL; Eosinophils% 1.3 % (0-5); Hemoglobin 11.8 g/dL (12.0-15.0); Lymphocyte # 2.32 X10^3/ul (0.83-4.51); Lymphocyte % 44.7 % (19-41); Mean Corp Hgb Conc 31.1 g/dL (32-36); Mean Corpuscular Hgb 27.4 pg (27.0-32.0); Mean Corpuscular Volume 88.2 fL (81-99); Mean Platelet Vol. 9.8 fl (6.2-12.0); Monocyte# 0.39 X10^3/uL; Monocyte% 7.5 % (0-10); NRBC Flagged by Analyzer 0 % (0-5); Neutrophil # 2.36 X10^3/uL (2.7-7.7); Neutrophil % 45.5 % (47-70); Platelet Count 226 K/mm3 (150-450); RBC Distribution Width CV 14.2 % (11.6-14.6); RBC Distribution Width SD 46.2 fl (35.1-43.9); Red Blood Count 4.31 M/mm3 (4.2-5.4); White Blood Count 5.2 K/mm3 (4.4-11.0)
[2024-05-27 21:32] LABS: Anion Gap 1 (5-15); BUN 15 mg/dL (7-18); BUN/Creat Ratio 16.7 RATIO (10-20); Calcium,Total 8.9 mg/dL (8.5-10.1); Chloride 108 mmol/L (98-107); EST Glomerular Filtration Rate 65 mL/min (>60); Est Glom Filt Rate - Afr Amer 79 mL/min (>60); Estimated Creatinine Clearance 48.98 ml/min; Glucose 103 mg/dL (74-106); Potassium 4.7 mmol/L (3.5-5.1); Sodium Level 140 mmol/L (136-145)
[2024-05-27] MEDS: Morphine 4 MG/ML Syringe IV (21:40)
[2024-05-27] MEDS: Ondansetron 4 MG/2 ML Vial IV (21:40)
[2024-05-27 21:46] VITALS: PULSE 74; O2SAT 93
[2024-05-27 22:15] VITALS: BP 139/54; PULSE 72; RESP 16; TEMP 36.6; O2SAT 96
[2024-05-27 22:25] VITALS: BMI 33.7
[2024-05-27 23:23] VITALS: BP 118/68; PULSE 74; RESP 18; TEMP 36.8; O2SAT 100
[2024-05-27] MEDS: Carvedilol 6.25 MG Tablet PO (23:29)
[2024-05-27] MEDS: Potassium Chloride Oral Tablet 20 MEQ PO (23:29)
[2024-05-27] MEDS: 0.9% Saline Lock 10 ML Syringe IV (23:29)
[2024-05-27] MEDS: Famotidine 20 MG Tablet PO (23:30)
[2024-05-27] MEDS: Senna/Docusate Sodium 1 Tablet PO (23:30)
[2024-05-27] MEDS: buPROPion (SR) 150 MG Tablet.SA PO (23:31)
[2024-05-27] MEDS: Gabapentin 100 MG Capsule PO (23:36)
[2024-05-28] VITALS (12 sets, daily range): BP systolic 79–114; BP diastolic 46–60; PULSE 71–83; RESP 15–18; TEMP 36.6–37.1; O2SAT 83–97; BMI 33.7
[2024-05-28] MEDS: Gabapentin 100 MG Capsule PO ×3 (06:05→22:28)
[2024-05-28 07:07] LABS: Absolute Lymphocyte Count 1.56 X10^3/uL (0.83-4.51); Absolute Neutrophil Count 2.9 X10^3/uL (2.0-7.7); Basophil# 0.03 X10^3/uL; Basophil% 0.6 % (0-1); Eosinophil# 0.07 X10^3/uL; Eosinophils% 1.4 % (0-5); Hematocrit 37.5 % (37-47); Hemoglobin 11.2 g/dL (12.0-15.0); Lymphocyte # 1.56 X10^3/ul (0.83-4.51); Lymphocyte % 30.8 % (19-41); Mean Corp Hgb Conc 29.9 g/dL (32-36); Mean Corpuscular Hgb 26.7 pg (27.0-32.0); Mean Corpuscular Volume 89.3 fL (81-99); Mean Platelet Vol. 9.9 fl (6.2-12.0); Monocyte# 0.46 X10^3/uL; Monocyte% 9.1 % (0-10); NRBC Flagged by Analyzer 0 % (0-5); Neutrophil # 2.94 X10^3/uL (2.7-7.7); Neutrophil % 57.9 % (47-70); Platelet Count 230 K/mm3 (150-450); RBC Distribution Width CV 14.4 % (11.6-14.6); RBC Distribution Width SD 47.1 fl (35.1-43.9); White Blood Count 5.1 K/mm3 (4.4-11.0)
[2024-05-28] MEDS: Budesonide Respules 0.5 MG/2 ML AMPUL.NEB. INHALATION ×2 (07:37→20:20)
[2024-05-28] MEDS: Potassium Chloride Oral Tablet 20 MEQ PO ×2 (07:42→16:57)
[2024-05-28] MEDS: Senna/Docusate Sodium 1 Tablet PO (07:43)
[2024-05-28] MEDS: Amiodarone 200 MG Tablet PO (07:43)
[2024-05-28] MEDS: Famotidine 20 MG Tablet PO ×2 (07:43→22:28)
[2024-05-28] MEDS: buPROPion (SR) 150 MG Tablet.SA PO ×2 (07:43→22:28)
[2024-05-28] MEDS: Venlafaxine XR 37.5 MG Capsule PO (07:43)
[2024-05-28] MEDS: Iron Polysaccharide Complex 150 MG CAPSULE PO (07:44)
[2024-05-28] MEDS: Carvedilol 6.25 MG Tablet PO (07:44)
[2024-05-28] MEDS: Furosemide 40 MG Tablet PO (07:45)
[2024-05-28] MEDS: Montelukast 10 MG Tablet PO (07:45)
[2024-05-28 07:52] LABS: AST(SGOT) 103 U/L (15-37); Alanine Aminotransfer ALT/SGPT 51 U/L (13-56); Alkaline Phosphatase 115 U/L (45-117); Anion Gap 4 (5-15); BUN 20 mg/dL (7-18); BUN/Creat Ratio 13.1 RATIO (10-20); Chloride 107 mmol/L (98-107); Creatinine, Serum 1.53 mg/dL (0.55-1.02); EST Glomerular Filtration Rate 35 mL/min (>60); Est Glom Filt Rate - Afr Amer 42 mL/min (>60); Estimated Creatinine Clearance 28.45 ml/min; Globulin 2.9 g/dL (2.2-4.2); Glucose 119 mg/dL (74-106); Potassium 4.4 mmol/L (3.5-5.1); Protein, Total 5.9 g/dL (6.4-8.2); Sodium Level 139 mmol/L (136-145)
--- NOTE | 2024-05-28 10:22 | PN.HOSP_ITS ---
Reason for Visit Reason for Visit: Diagnoses Pain in left elbow (05/27/24) Objective Data Objective Data Vital Signs: Vital Signs Temp Pulse Resp BP Pulse Ox O2 Del Method O2 Flow Rate 98.3 F 76 16 99/46 L 83 Room Air 2 05/28/24 08:27 05/28/24 08:27 05/28/24 08:27 05/28/24 08:27 05/28/24 08:32 05/28/24 08:32 05/28/24 08:27 Oxygen Flow Rate (L/min) 2 Oxygen Delivery Method Room Air Weight: 167 lb 1.766 oz Body Mass Index (BMI) 33.7 Intake & Output: Intake and Output for Last 24 Hours 05/26/24 05/27/24 05/28/24 23:59 23:59 23:59 Intake Total 300 / 300 Output Total 200 / 200 Balance 100 / 100 Lab / Micro Data 05/28/24 06:28 05/28/24 06:28 Labs: Laboratory Results - last 24 hr 05/27/24 21:13: WBC 5.2, RBC 4.31, Hgb 11.8 L, Hct 38.0, MCV 88.2, MCH 27.4, M CHC 31.1 L, RDW Std Deviation 46.2 H, RDW Coeff of Joe 14.2, Plt Count 226, MPV 9.8, Immature Gran % (Auto) 0.200, Neut % (Auto) 45.5 L, Lymph % (Auto) 44.7 H, Freestone % (Auto) 7.5, Eos % (Auto) 1.3, Baso % (Auto) 0.8, Absolute Neuts (auto) 2.4, Absolute Lymphs (auto) 2.32, Nucleated RBC % 0, Sodium 140, Potassium 4.7, Chloride 108 H, Carbon Dioxide 31.0, Anion Gap 1 L, BUN 15, Creatinine 0.90, Estim Creat Clear Calc 48.98, Est GFR (MDRD) Af Amer 79, Est GFR (MDRD) Non-Af 65, BUN/Creatinine Ratio 16.7, Glucose 103, Calcium 8.9 05/28/24 06:28: WBC 5.1, RBC 4.20, Hgb 11.2 L, Hct 37.5, MCV 89.3, MCH 26.7 L, M CHC 29.9 L, RDW Std Deviation 47.1 H, RDW Coeff of Joe 14.4, Plt Count 230, MPV 9.9, Immature Gran % (Auto) 0.200, Neut % (Auto) 57.9, Lymph % (Auto) 30.8, Freestone % (Auto) 9.1, Eos % (Auto) 1.4, Baso % (Auto) 0.6, Absolute Neuts (auto) 2.9, Absolute Lymphs (auto) 1.56, Nucleated RBC % 0, Sodium 139, Potassium 4.4, Chloride 107, Carbon Dioxide 28.0, Anion Gap 4 L, BUN 20 H, Creatinine 1.53 H, Estim Creat Clear Calc 28.45, Est GFR (MDRD) Af Amer 42 L, Est GFR (MDRD) Non-Af 35 L, BUN/Creatinine Ratio 13.1, Glucose 119 H, Calcium 9.0, Total Bilirubin 0.80, AST 103 H, ALT 51, Alkaline Phosphatase 115, Total Protein 5.9 L, Albumin 3.0 L, Globulin 2.9, Albumin/Globulin Ratio 1.0 Radiography Diagnostic Testing: Radiology Impression Elbow X-Ray 05/27/24 18:35 IMPRESSION: Negative left elbow. Electronically Signed: Agustin Vang MD at 19:37 EST , Humerus X-Ray 05/27/24 18:35 IMPRESSION: Left proximal humeral fracture. Diffuse sclerosis around the fracture site no definite osseous union. There may be a component of pseudoarticulation. Electronically Signed: Agustin Vang MD at 19:38 EST , ADDENDUM: 05/27/242152 IMPRESSION: undefined Physical Exam Narrative Seen and examined. Initially as per nurses report she had to work to attend at 11 AM but could not go because of pain over the left mid arm and elbow. Physical exam General: Alert, Oriented x3, Cooperative HEENT: Atraumatic, PERRLA, EOMI, Normocephalic Oral: No Gingival or Mucosal Lesions/ Ulcerations Neck: Supple, No JVD, Negative Carotid Bruits Chest wall/Lungs: Air entry diminished in bilateral lung bases. No crepitation/rhonchi Cardiovascular: Regular rate, Regular Rhythm, Normal S1, Normal S2, No M/G/R Abdomen: Bowel Sounds Present, Soft, Non Tender, Non-Distended : No dysuria. No renal angle tenderness. No suprapubic tenderness. Extremities: No edema, Capillary Refill Less than 3 Seconds Skin: No rashes, No breakdown Musculoskeletal: Tenderness and swelling present over left mid arm and elbow predominantly posterior lateral region. Dominik wrap bandage. Neurological: Cranial nerves II-XII grossly intact, DTR 2+/4. No acute focal neurological deficit. Psych/Mental Status: Normal Affect, Appropriate. Assessment & Plan Assessment/Plan (1) Left elbow pain: PLAN: Plan The patient is a 74 y/o F was admitted with severe pain over the left mid arm and elbow after she had mechanical fall due to loss of balance. She did not hit her head or LOC. She was found to have enlarging hematoma of left mid arm and elbow region therefore admitted #1. Mechanical fall with left upper extremity hematoma on chronic anticoagulant therapy with intractable pain: Patient was admitted on MedSurg floor. Conservative management with ice pack, Dominik wrap bandage PT and OT. Pain control. Oral anticoagulant on hold. Stool softener as she had a small bowel movement. #2. Chronic normocytic anemia/iron deficiency anemia: Admission hemoglobin 11.8, MCV 88.2, similar to baseline most recently noted prior 01/17/2024 hemoglobin 11.8. Serial hemoglobin measurement was above 11 g. #3. PAF: continue patient on Coreg, amiodarone home regimen, holding Xarelto for the reason mentioned above. #4. Hypertension: Continue home regimen including losartan, Coreg, PRN hydralazine. #5. Hyperlipidemia: Per current list does not appear to be on regimen, clarifying. #6. Dilated cardiomyopathy: Most recent echocardiogram noted 01/16/2024 with normal LV size, mild concentric LVH, LVEF 20%, severe global hypokinesis of LV, mild to moderate TBI, bubble contrast study negative with contrast injection performed with follow-up cardiac catheterization that same day with nonobstructive coronary arteries diagnosed with dilated cardiopathy with atrial flutter at that time 2-1 conduction: Recommend medical treatment and control of arrhythmia, Coreg, amiodarone, holding Eliquis given #1 #7. Chronic COPD: on ATC budesonide therapy, PRN albuterol, HOB, IS parameters. #8. Anxiety and depression: continue patient home bupropion and venlafaxine regimen but clarifying regimen as she has had several changes recently. #9. Obesity: Weight loss and lifestyle changes encouraged. #10. GERD: We will continue patient famotidine regimen. #11. JIMMY: Not PAP compliant. #12. DVT prophylaxis: SCDs. #13. CODE status: Patient HCPOA and living will are not in place but she notes her son would be her medical decision-maker if necessary, discussed CODE status at length including difference between FULL code, DNR-CCA and DNR-CC status. Following discussions about the differences in these status, requested Full Code status. Charges/Coding Visit Charges Inpatient E&M: 05467 Subs Hosp L2
--- NOTE | 2024-05-28 10:53 | NURSING ---
attempted to call abigail back with update but no answer. message left to call for any questions.
[2024-05-28] MEDS: Lactated Ringers 1,000 ML 999 ML IV (11:30)
[2024-05-28] MEDS: 0.9% Normal Saline (1000mL) 1,000 ML 100 ML IV ×2 (12:08→23:07)
--- NOTE | 2024-05-28 15:13 | CASEMGMT ---
Met with patient to complete KING form. KING form explained to patient who voiced understanding and signed form. Original form placed in pt?s chart and copy provided to patient. Hailey Edmonds, Discharge Planning Asst
[2024-05-28] MEDS: Ceftriaxone 1 GM/50 ML BAG IV (15:41)
[2024-05-28] MEDS: Acetaminophen 325 MG Tablet 650 MG PO (18:34)
[2024-05-29] VITALS (8 sets, daily range): BP systolic 97–125; BP diastolic 40–49; PULSE 70–91; RESP 15–18; TEMP 36.6–36.7; O2SAT 92–97; BMI 33.8
[2024-05-29] MEDS: Gabapentin 100 MG Capsule PO ×3 (06:13→20:33)
[2024-05-29] MEDS: Budesonide Respules 0.5 MG/2 ML AMPUL.NEB. INHALATION ×2 (07:01→20:17)
[2024-05-29] MEDS: Potassium Chloride Oral Tablet 20 MEQ PO ×2 (09:23→16:14)
[2024-05-29] MEDS: Venlafaxine XR 37.5 MG Capsule PO (09:24)
[2024-05-29] MEDS: Ceftriaxone 1 GM/50 ML BAG IV (09:24)
[2024-05-29] MEDS: Famotidine 20 MG Tablet PO ×2 (09:24→20:33)
[2024-05-29] MEDS: Montelukast 10 MG Tablet PO (09:24)
[2024-05-29] MEDS: buPROPion (SR) 150 MG Tablet.SA PO ×2 (09:24→20:34)
[2024-05-29] MEDS: Amiodarone 200 MG Tablet PO (09:24)
[2024-05-29] MEDS: Iron Polysaccharide Complex 150 MG CAPSULE PO (09:24)
--- NOTE | 2024-05-29 10:22 | CASEMGMT ---
Addendum entered by Octavia Sharp 05/29/24 11:32: Faxed [facility] order for PT. Original Note: LAMONT SALINAS into pt room, pt sitting up in chair and just finished with therapy. Pt nephew at bedside. Pt states she feels she did well with therapy. Discussed options for homegoing. Pt declines [facility] but states she would be agreeable to going back to [facility] for therapy. Discussed PT and OT with pt. Pt states she does not need OT as last time she was folding towels and different items that she does not feel is beneficial to her. Pt agreeable to PT only. Pt nephew states he will transport pt. Pt son lives with her, he is 30 years old and a previous stroke. He is home at all times except weekends and when he is at workshop. Pt would like her appt at [facility] to be scheduled after 9am and before 2pm. Updated hospitalist of plan. Discussed concerns with how pt did with OT and how she will be able to get out of the home for therapy. Pt states that she can do this. Pt has a stairlift at home, rollator and walker. Pt lives in a one story home. Pt denies further needs. TC marcus Espinal at [facility], scheduled pt and placed on dc plan. LAMONT SALINAS into pt room to make aware of time and date of appt. Pt asks about [facility]. Discussed again that pt does not qualify for this to be paid under her MCR, pt states she will then do outpt. Discussed that [facility] would be the middle of the road but pt again declines.
--- NOTE | 2024-05-29 10:46 | PN.HOSP_ITS ---
Reason for Visit Reason for Visit: Diagnoses Pain in left elbow (05/27/24) Objective Data Objective Data Vital Signs: Vital Signs Temp Pulse Resp BP Pulse Ox O2 Del Method O2 Flow Rate 98.1 F 74 18 115/49 L 93 Room Air 3 05/29/24 08:45 05/29/24 08:45 05/29/24 08:45 05/29/24 08:45 05/29/24 10:05 05/29/24 10:05 05/29/24 08:47 Oxygen Flow Rate (L/min) 3 Oxygen Delivery Method Room Air Weight: 167 lb 15.876 oz Body Mass Index (BMI) 33.8 Intake & Output: Intake and Output for Last 24 Hours 05/27/24 05/28/24 05/29/24 23:59 23:59 23:59 Intake Total 2900.00 / 2900.00 1200 / 1200 Output Total 1000 / 1300 900 / 900 Balance 1900.00 / 1600.00 300 / 300 Lab / Micro Data 05/28/24 06:28 05/28/24 06:28 Physical Exam Narrative Seen and examined. Patient still has swelling over mid arm and left elbow and mild pain from hematoma. Discussed with the patient's caregiver, her nephew in the room. She uses walker for mobility and ambulation and since left arm hematoma she will not be able to use therefore risk for fall. She has recurrent fall about 3-4 times a year. Physical exam General: Alert, Oriented x3, Cooperative HEENT: Atraumatic, PERRLA, EOMI, Normocephalic Oral: No Gingival or Mucosal Lesions/ Ulcerations Neck: Supple, No JVD, Negative Carotid Bruits Chest wall/Lungs: Air entry diminished in bilateral lung bases. No crepitation/rhonchi Cardiovascular: Regular rate, Regular Rhythm, Normal S1, Normal S2, No M/G/R Abdomen: Bowel Sounds Present, Soft, Non Tender, Non-Distended : No dysuria. No renal angle tenderness. No suprapubic tenderness. Extremities: Bilateral 2+ chronic pitting edema, Capillary Refill Less than 3 Seconds Skin: No rashes, No breakdown Musculoskeletal: Tenderness and swelling present over left mid arm and elbow predominantly posterior lateral region. Dominik wrap bandage. Neurological: Cranial nerves II-XII grossly intact, DTR 2+/4. No acute focal neurological deficit. Psych/Mental Status: Normal Affect, Appropriate. Assessment & Plan Assessment/Plan (1) Left elbow pain: PLAN: Plan The patient is a 74 y/o F was admitted with severe pain over the left mid arm and elbow after she had mechanical fall due to loss of balance. She did not hit her head or LOC. She was found to have enlarging hematoma of left mid arm and elbow region therefore admitted #1. Mechanical fall with left upper extremity hematoma on chronic anticoagulant therapy with intractable pain: Patient was admitted on [facility] floor. Conservative management with ice pack, Dominik wrap bandage PT and OT. Pain control. Oral anticoagulant on hold. Stool softener as she had a small bowel movement. 05/29: History of recurrent fall. Discussed with the rn case manager hospice as she is not able to use a walker because of left arm hematoma. Empirically started on IV ceftriaxone #2. Chronic normocytic anemia/iron deficiency anemia: Admission hemoglobin 11.8, MCV 88.2, similar to baseline most recently noted prior 01/17/2024 hemoglobin 11.8. Serial hemoglobin measurement was above 11 g. #3. PAF: continue patient on Coreg, amiodarone home regimen, holding Xarelto for the reason mentioned above. #4. Hypertension: Continue home regimen including losartan, Coreg, PRN hydralazine. 05/28: Patient blood pressure was low 89/58 with started with IV fluid 1 L bolus and 2 L of normal saline. 05/29: Patient running low blood pressure in low 100s to 110s. Patient also gets dizzy lightheaded on walking sometimes at home probably due to low blood pressure. BP was 97/41 in the morning improved to 115/49. On Lasix 40 mg daily for leg swelling, changed to noon time. Carvedilol changed to 10 AM with holding parameters. Discontinue losartan. Thigh hide daily dose recommended. #5. Hyperlipidemia: Per current list does not appear to be on regimen, clarifying. #6. Dilated cardiomyopathy: Most recent echocardiogram noted 01/16/2024 with normal LV size, mild concentric LVH, LVEF 20%, severe global hypokinesis of LV, mild to moderate TBI, bubble contrast study negative with contrast injection performed with follow-up cardiac catheterization that same day with nonobstructive coronary arteries diagnosed with dilated cardiopathy with atrial flutter at that time 2-1 conduction: Recommend medical treatment and control of arrhythmia, Coreg, amiodarone, holding Eliquis given #1 #7. COPD: on ATC budesonide therapy, PRN albuterol, HOB, IS parameters. #8. Anxiety and depression: continue patient home bupropion and venlafaxine regimen but clarifying regimen as she has had several changes recently. #9. Obesity: Weight loss and lifestyle changes encouraged. #10. GERD: continue patient famotidine regimen. #11. JIMMY: Not PAP compliant. #12. DAWOOD: Patient creatinine went up from 0.9-1.53. Lasix and losartan discontinued. Monitor BMP. DVT prophylaxis: SCDs. #13. CODE status: Patient HCPOA and living will are not in place but she notes her son would be her medical decision-maker if necessary, discussed CODE status at length including difference between FULL code, DNR-CCA and DNR-CC status. Following discussions about the differences in these status, requested Full Code status. Charges/Coding Visit Charges Inpatient E&M: 56768 Subs Hosp L2
[2024-05-29 11:53] LABS: AST(SGOT) 34 U/L (15-37); Alanine Aminotransfer ALT/SGPT 36 U/L (13-56); Alkaline Phosphatase 130 U/L (45-117); Anion Gap 4 (5-15); BUN 21 mg/dL (7-18); BUN/Creat Ratio 25.3 RATIO (10-20); Calcium,Total 8.9 mg/dL (8.5-10.1); Chloride 110 mmol/L (98-107); Creatinine, Serum 0.83 mg/dL (0.55-1.02); EST Glomerular Filtration Rate 71 mL/min (>60); Est Glom Filt Rate - Afr Amer 86 mL/min (>60); Globulin 3.1 g/dL (2.2-4.2); Glucose 112 mg/dL (74-106); Potassium 4.5 mmol/L (3.5-5.1); Protein, Total 6.1 g/dL (6.4-8.2); Sodium Level 141 mmol/L (136-145)
[2024-05-29] MEDS: Albuterol 2.5 MG/3 ML VIAL.NEB. INHALATION (20:17)
[2024-05-29] MEDS: Senna/Docusate Sodium 1 Tablet 2 TABLET PO (20:33)
[2024-05-29] MEDS: Carvedilol 3.125 MG TABLET PO (20:34)
[2024-05-29] MEDS: MELATONIN 3 MG TABLET PO (20:34)
[2024-05-30 04:15] VITALS: BP 109/52; PULSE 79; RESP 15; TEMP 36.7; O2SAT 97
[2024-05-30 04:17] VITALS: BMI 35.3
[2024-05-30 04:18] VITALS: BMI 34.7
[2024-05-30 07:02] VITALS: PULSE 75; RESP 16; O2SAT 98
[2024-05-30] MEDS: Budesonide Respules 0.5 MG/2 ML AMPUL.NEB. INHALATION (07:02)
[2024-05-30 07:10] LABS: Absolute Lymphocyte Count 2.23 X10^3/uL (0.83-4.51); Absolute Neutrophil Count 1.8 X10^3/uL (2.0-7.7); Basophil# 0.04 X10^3/uL; Basophil% 0.9 % (0-1); Eosinophil# 0.06 X10^3/uL; Eosinophils% 1.3 % (0-5); Hematocrit 38.8 % (37-47); Hemoglobin 11.8 g/dL (12.0-15.0); Lymphocyte # 2.23 X10^3/ul (0.83-4.51); Lymphocyte % 48.4 % (19-41); Mean Corp Hgb Conc 30.4 g/dL (32-36); Mean Corpuscular Hgb 27.1 pg (27.0-32.0); Mean Platelet Vol. 9.9 fl (6.2-12.0); Monocyte# 0.43 X10^3/uL; Monocyte% 9.3 % (0-10); NRBC Flagged by Analyzer 0 % (0-5); Neutrophil # 1.84 X10^3/uL (2.7-7.7); Neutrophil % 39.9 % (47-70); Platelet Count 183 K/mm3 (150-450); RBC Distribution Width CV 14.3 % (11.6-14.6); RBC Distribution Width SD 46.1 fl (35.1-43.9); Red Blood Count 4.36 M/mm3 (4.2-5.4); White Blood Count 4.6 K/mm3 (4.4-11.0)
[2024-05-30 07:30] VITALS: BP 103/48; PULSE 77; RESP 18; TEMP 36.1; O2SAT 99
[2024-05-30 07:33] LABS: Anion Gap 2 (5-15); BUN 23 mg/dL (7-18); BUN/Creat Ratio 33.3 RATIO (10-20); Chloride 108 mmol/L (98-107); Creatinine, Serum 0.69 mg/dL (0.55-1.02); EST Glomerular Filtration Rate 88 mL/min (>60); Est Glom Filt Rate - Afr Amer 106 mL/min (>60); Estimated Creatinine Clearance 55.31 ml/min; Glucose 99 mg/dL (74-106); Potassium 4.9 mmol/L (3.5-5.1); Sodium Level 138 mmol/L (136-145)
[2024-05-30] MEDS: Gabapentin 100 MG Capsule PO (07:35)
[2024-05-30] MEDS: Potassium Chloride Oral Tablet 20 MEQ PO (07:35)
[2024-05-30 09:50] VITALS: BP 96/57; PULSE 80; RESP 18; TEMP 36.5; O2SAT 96
[2024-05-30] MEDS: Ceftriaxone 1 GM/50 ML BAG IV (10:02)
[2024-05-30] MEDS: buPROPion (SR) 150 MG Tablet.SA PO (10:03)
[2024-05-30] MEDS: 0.9% Saline Lock 10 ML Syringe IV (10:03)
[2024-05-30] MEDS: Amiodarone 200 MG Tablet PO (10:03)
[2024-05-30] MEDS: Famotidine 20 MG Tablet PO (10:03)
[2024-05-30] MEDS: Venlafaxine XR 37.5 MG Capsule PO (10:03)
[2024-05-30] MEDS: Montelukast 10 MG Tablet PO (10:03)
[2024-05-30] MEDS: Iron Polysaccharide Complex 150 MG CAPSULE PO (10:03)
--- NOTE | 2024-05-30 11:00 | CASEMGMT ---
Addendum entered by Octavia Sharp 05/30/24 15:47: 1220-LAMONT SALINAS updated by MOISES that pt may not have a clear understanding of dc plan. LAMONT SALINAS into pt room, pt nephew present. Discussed with pt dc plan. Pt states she understands that she is set up for OP therapy per her request. Pt nephew states pt will have someone staying with her tonight as he will be with pt son at an event. Nephew states he cannot function if pt is alone d/t worry. Pt states that she will go home but I will julio you if I fall and get hurt. Asked pt why this is and she states because the RN CM is making her go home. Instructed pt that this RN CM is presenting pt options to her and that she is making a decision. Pt states I will be fine. Pt denies further needs. Original Note: LAMONT SALINAS made aware by pt nurse that pt had questions regarding coverage and her stay. LAMONT SALINAS into pt room, pt sitting up in bed in no distress. Pt states she does not understand why she cannot go to TCU. Explained to pt the 3 MN rule and that she is in an observation status. Pt states she has been there before and it was covered. Discussed options with pt such as self pay, HHC and her choice of outpt therapy. Pt again states that she wants to do outpt therapy and does not want HHC if she cannot go to TCU. Pt states that she does not have enough funds for privately paying. Pt is agreeable to having a list of the cost of SNF's. Updated SW. Pt to discuss with her nephew. Pt plan is still outpt therapy at this time, declining HHC. Plan for pt to dc today.
--- NOTE | 2024-05-30 11:10 | DCINST_ITS ---
Discharge Instructions Diet Discharge Diet: No restrictions Activity Discharge Activity: Return to Normal Activity Weight Bearing Status: Weight bearing as tolerated Dressing / Incision Call your doctor if you observe: Fever of 101 or Higher, Coldness, Increased Pain, Numbness or Tingling, Change in Color, Inability to urinate, Inability to have a bowel movement, Shortness of breath, Dizziness, Fainting spells, Swelling in the ankles, Chest pain, Prolonged hiccupping, Increased palpitations (irregular heartbeat) and Calf discomfort Follow Up Care When: IN 2 WEEKS Test Results: Test results from this visit will be discussed in further detail at your follow- up appointment, if applicable. Discharge Plan Admission Admit Date/Time: 05/27/24 21:36 Primary Reason for Your Visit: Left upper extremity hematoma. Attending Provider: Aram Herbert Primary Care Provider: Kei Pineda Consulting Providers: Soumya Guadalupe Instructions Additional Instructions / Restrictions: Hold Lasix if SBP less than 90 mmHg Discharge Orders/Prescriptions Prescriptions: Continued amiodarone 200 mg tablet 200 mg PO DAILY Qty: 90 3RF calcium carbonate-vitamin D3 1 TABLET tablet 1 tab PO BID bupropion HCl 150 mg tablet sustained-release 12 hr 150 mg PO BID albuterol 90 mcg/actuation aerosol 90 mcg inhalation .four times day Rx Instructions: 2 puffs ergocalciferol (vitamin D2) 1,250 mcg (50,000 unit) capsule 50,000 unit PO .every tuesday Patient Comments: Take 1 capsule by mouth one time a week. vitamin B complex Tablet 1 tab PO DAILY famotidine [Acid Controller] 20 mg tablet 20 mg PO BID calcium citrate-vitamin D3 500 mg-12.5 mcg (500 unit) tablet,chewable 1 tab PO DAILY Ear Wax Removal Drops 6.5 % drops 5 drp RIGHT EAR DAILY gabapentin 100 mg capsule 100 - 200 mg PO TID polysaccharide iron complex [Ferrex 150] 150 mg iron capsule 150 mg PO DAILY acetaminophen 500 mg Tablet 1,000 mg PO TID ketoconazole 2 % shampoo 1 applic topical DAILY ketoconazole 2 % cream 1 applic topical BID montelukast 10 mg tablet 10 mg PO DAILY Patient Comments: Takes at bedtime venlafaxine 37.5 mg capsule,extended release 24hr 37.5 mg PO DAILY sennosides-docusate sodium [Senna-S] 8.6-50 mg tablet 1 tab-cap PO BID polyethylene glycol 3350 [ClearLax] 17 gram/dose powder 17 g PO DAILY magnesium chloride [Mag 64] 64 mg Tablet,Delayed Release (Dr/Ec) 128 mg PO BID 30 Days Qty: 120 0RF Changed furosemide 40 mg tablet 20 mg PO LUNCH 60 Days Qty: 60 0RF carvedilol 6.25 mg tablet 3.125 mg PO BID Qty: 180 3RF potassium chloride [Klor-Con M20] 20 mEq Tablet,Er Particles/Crystals 20 meq PO DAILY 30 Days Qty: 0 0RF Held Xarelto 20 mg tablet 20 mg PO QDAY Qty: 90 3RF Hold Instructions: Hold it until hematoma completely resolves. Follow with PCP before resumption. Consider lower dose 10 mg daily. Rx Instructions: must administer with evening meal Discontinued losartan 25 mg tablet 25 mg PO DAILY Qty: 90 3RF paroxetine HCl 30 MG tablet 40 mg PO DAILY nystatin 100,000 unit/gram powder 1 applic topical BID Referrals / Follow Up: Kei Pineda DO [Primary Care Provider] - Within 1 Week Reilly Jansen MD [Med Staff - Active Staff] - Within 2 Weeks (For left upper extremity hematoma. Xarelto on hold.) Disposition Disposition (needs filled in before D/C Order can be placed): Home Health Service
--- NOTE | 2024-05-30 11:40 | CASEMGMT ---
Social Work- SW met with pt to take a list of private pay aides, per pt request. Pt repeatedly looked at list and question if it was in-home or where she went, discussed prices per hour, then continued to ask if insurance covered the aide or if she would private pay, before questioning again where she would go and what services were offered. Pt handed SW the [employer] paperwork and asked what that list was for. SW explained it was a notice, not a list. SW explained [employer] benefits including lack of coverage as an OBS pt. Pt went back to private pay list, again having the same dialogue before again going back to [employer] paperwork and again asking what that list was for. This happened repeatedly before pt asked about outpatient therapy, stating that her grandson did not like people to come into the home. SW then provided education about outpatient therapy. Pt reports that she would like OP if possible. SW updated RNCM who reports that pt already has OP set up. RNCM previously provided appointment date and time. RNCM to speak with pt again to confirm. MOISES collaborated with bedside nurse in regards to confusion that SW observed. Bedside nurse reports that she has not noticed a high level of confusion, just isolated incidents. MOISES remains available to follow. NADIRA [place]
--- NOTE | 2024-05-30 12:20 | DS.PCM_ITS ---
Providers Date of Admission: 05/27/24 Date of Discharge: 05/30/24 Primary Care Physician: Dr. Kei Pineda DO Reason For Visit: FALL, LUE HEMATOMA, INTRACTABLE PAIN Diagnosis Discharge Diagnosis (1) Left elbow pain: Status: Acute Code(s): M25.522 - Pain in left elbow Plan The patient is a 74 y/o F was admitted with severe pain over the left mid arm and elbow after she had mechanical fall due to loss of balance. She did not hit her head or LOC. She was found to have enlarging hematoma of left mid arm and elbow region therefore admitted #1. Mechanical fall with left upper extremity hematoma on chronic anticoagulant therapy with intractable pain: [facility] Conservative management with ice pack, Dominik wrap bandage PT and OT. Pain control. Oral anticoagulant on hold. Stool softener as she had a small bowel movement. 05/29: History of recurrent fall. Discussed with the employment case manager as she is not able to use a walker because of left arm hematoma. Empirically started on IV ceftriaxone 05/30: Discussed with the employment case manager. PT note reviewed and shows patient can walk 60 feet with contact-guard and gait belt. Discharged with home with home health and outpatient therapy as her insurance does not cover for TCU this time. Follow-up with Dr. Reilly Jansen for left upper extremity hematoma. #2. Chronic normocytic anemia/iron deficiency anemia: Admission hemoglobin 11.8, MCV 88.2, similar to baseline most recently noted prior 01/17/2024 hemoglobin 11.8. Serial hemoglobin measurement was above 11 g. #3. PAF: continue patient on Coreg, amiodarone home regimen, holding Xarelto for the reason mentioned above. #4. Low BP with history of hypertension: Continue home regimen including losartan, Coreg, PRN hydralazine. 05/28: Patient blood pressure was low 89/58 with started with IV fluid 1 L bolus and 2 L of normal saline. 05/29: Patient running low blood pressure in low 100s to 110s. Patient also gets dizzy lightheaded on walking sometimes at home probably due to low blood pressure. BP was 97/41 in the morning improved to 115/49. On Lasix 40 mg daily for leg swelling, changed to noon time. Carvedilol changed to 10 AM with holding parameters. Discontinue losartan. Thigh hide daily dose recommended. 05/30: BP 96/57. Losartan discontinued. Carvedilol decreased to 3.25 mg twice daily at 10 AM 10 PM daily. Furosemide decreased to 20 mg daily changed to noon time with holding parameters #5. Hyperlipidemia: Per current list does not appear to be on regimen, clarifying. #6. Dilated cardiomyopathy with low blood pressure: Most recent echocardiogram noted 01/16/2024 with normal LV size, mild concentric LVH, LVEF 20%, severe global hypokinesis of LV, mild to moderate TBI, bubble contrast study negative with contrast injection performed with follow-up cardiac catheterization that same day with nonobstructive coronary arteries diagnosed with dilated cardiopathy with atrial flutter at that time 2-1 conduction: Recommend medical treatment and control of arrhythmia, Coreg, amiodarone, holding Eliquis given #1 #7. COPD: on ATC budesonide therapy, PRN albuterol, HOB, IS parameters. #8. Anxiety and depression: continue patient home bupropion and venlafaxine regimen but clarifying regimen as she has had several changes recently. #9. Obesity: Weight loss and lifestyle changes encouraged. #10. GERD: continue patient famotidine regimen. #11. JIMMY: Not PAP compliant. #12. DAWOOD: Patient creatinine went up from 0.9-1.53. Lasix and losartan discontinued. Monitor BMP. DVT prophylaxis: SCDs. #13. CODE status: Patient HCPOA and living will are not in place but she notes her son would be her medical decision-maker if necessary, discussed CODE status at length including difference between FULL code, DNR-CCA and DNR-CC status. Following discussions about the differences in these status, requested Full Code status. Discharge medication reconciliation done. Discharge follow-up instructions completed. Discharge process discussed with the patient and all questions were answered to patient's satisfaction. Follow with PCP in 1 to 2 weeks Total time spent, exact 35 minutes on discharge meds reconciliation, examination, coordination of care with nurses and ancillary staff, review of imaging and blood test and discussion with the patient on follow-up instructions. Medications at Discharge Home Medications calcium 500 mg (as carbonate)-vitamin D3 5 mcg (200 unit) tablet 1 tab PO BID supplement 05/09/20 bupropion HCl 150 mg tablet,12 hr sustained-release 150 mg PO BID mood 11/02/22 albuterol 90 mcg/actuation aerosol inhaler 90 mcg inhalation .four times day lungs 03/26/23 ergocalciferol (vitamin D2) 1,250 mcg (50,000 unit) capsule 50,000 unit PO .every tuesday bones 03/26/23 famotidine 20 mg tablet (Acid Controller) 20 mg PO BID acid reflux 03/26/23 vitamin B complex 1 tab PO DAILY supp 03/26/23 acetaminophen 500 mg tablet 1,000 mg PO TID pain 01/16/24 calcium 500 mg (as citrate)-vit D3 12.5 mcg (500 unit) chewable tablet 1 tab PO DAILY supplement 01/16/24 carbamide peroxide 6.5 % ear drops (Ear Wax Removal Drops) 5 drp RIGHT EAR DAILY ear wax 01/16/24 gabapentin 100 mg capsule 100 - 200 mg PO TID pain 01/16/24 ketoconazole 2 % shampoo 1 applic topical DAILY shampoo 01/16/24 ketoconazole 2 % topical cream 1 applic topical BID cream 01/16/24 montelukast 10 mg tablet 10 mg PO DAILY COPD 01/16/24 polyethylene glycol 3350 17 gram/dose oral powder (ClearLax) 17 g PO DAILY bowel movements 01/16/24 polysaccharide iron complex 150 mg iron capsule (Ferrex) 150 mg PO DAILY iron 01/16/24 sennosides 8.6 mg-docusate sodium 50 mg tablet (Senna-S) 1 tab-cap PO BID stool softner 01/16/24 venlafaxine 37.5 mg capsule,extended release 24 hr 37.5 mg PO DAILY mood 01/16/24 magnesium chloride 64 mg (magnesium chloride) tablet,delayed release (Mag 64) 128 mg (2 x 64 mg) PO BID 30 days #120 tabs 01/17/24 amiodarone 200 mg tablet 200 mg PO DAILY #90 tabs 02/03/24 rivaroxaban 20 mg tablet (Xarelto) 20 mg PO QDAY #90 tabs 03/19/24 carvedilol 6.25 mg tablet 3.125 mg (1/2 x 6.25 mg) PO BID #180 tabs 05/30/24 furosemide 40 mg tablet 20 mg (1/2 x 40 mg) PO LUNCH leg swelling 60 days #60 tabs 05/30/24 potassium chloride 20 mEq tablet,extended release(part/cryst) (Klor-Con M) 20 meq PO DAILY supplement 30 days #0 tabs 05/30/24 Physical Exam Narrative Seen and examined. Patient swelling and pain has much improved. Patient walked to 60 feet with contact-guard and gait belt. She uses walker for mobility and ambulation and since left arm hematoma she will not be able to use therefore risk for fall. She has recurrent fall about 3-4 times a year. Physical exam General: Alert, Oriented x3, Cooperative HEENT: Atraumatic, PERRLA, EOMI, Normocephalic Oral: No Gingival or Mucosal Lesions/ Ulcerations Neck: Supple, No JVD, Negative Carotid Bruits Chest wall/Lungs: Air entry diminished in bilateral lung bases. No crepitation/rhonchi Cardiovascular: Regular rate, Regular Rhythm, Normal S1, Normal S2, No M/G/R Abdomen: Bowel Sounds Present, Soft, Non Tender, Non-Distended : No dysuria. No renal angle tenderness. No suprapubic tenderness. Extremities: Bilateral 2+ chronic pitting edema, Capillary Refill Less than 3 Seconds Skin: No rashes, No breakdown Musculoskeletal: Tenderness and swelling improved over left mid arm and elbow predominantly posterior lateral region decreased to more than half of the size. Dominik wrap bandage. Neurological: Cranial nerves II-XII grossly intact, DTR 2+/4. No acute focal neurological deficit. Psych/Mental Status: Normal Affect, Appropriate. Weight / BMI Weight Weight: 172 lb 4.8 oz Body Mass Index (BMI) 34.7 ABG / Lab / Microbiology Data 05/30/24 06:51 05/30/24 06:51 Laboratory: Laboratory Results - last 24 hr 05/30/24 06:51: WBC 4.6, RBC 4.36, Hgb 11.8 L, Hct 38.8, MCV 89.0, MCH 27.1, M CHC 30.4 L, RDW Std Deviation 46.1 H, RDW Coeff of Joe 14.3, Plt Count 183, MPV 9.9, Immature Gran % (Auto) 0.200, Neut % (Auto) 39.9 L, Lymph % (Auto) 48.4 H, [place] % (Auto) 9.3, Eos % (Auto) 1.3, Baso % (Auto) 0.9, Absolute Neuts (auto) 1.8 L, Absolute Lymphs (auto) 2.23, Nucleated RBC % 0, Sodium 138, Potassium 4.9, Chloride 108 H, Carbon Dioxide 28.0, Anion Gap 2 L, BUN 23 H, Creatinine 0.69, Estim Creat Clear Calc 55.31, Est GFR (MDRD) Af Amer 106, Est GFR (MDRD) Non-Af 88, BUN/Creatinine Ratio 33.3 H, Glucose 99, Calcium 9.0 D/C Instructions Discharge Diet: No restrictions Weight Bearing Status: Weight bearing as tolerated Call your doctor if you observe: Fever of 101 or Higher, Coldness, Increased Pain, Numbness or Tingling, Change in Color, Inability to urinate, Inability to have a bowel movement, Shortness of breath, Dizziness, Fainting spells, Swelling in the ankles, Chest pain, Prolonged hiccupping, Increased palpitations (irregular heartbeat) and Calf discomfort DC O2, CPAP, BIPAP Needs Additional Home O2 Discharge instructions: No DC home with Oxygen: No When: IN 2 WEEKS Meaningful Use Info Meaningful Use Meaningful Use Diagnoses (Choose all that apply): None applicable Ischemic Stroke Statin Dosing Therapy Reference: STATIN DOSE THERAPY REFERENCE: * Patients > 75 years receive moderate or high dose statin therapy. * Patients 75 years or YOUNGER should receive HIGH intensity statin dose unless contraindicated. You will be required to document reason for non-treatment if statin daily dose does not meet guidelines. HIGH DOSE STATIN THERAPY DAILY Atorvastatin > than or = to 40 mg Rosuvastatin > than or = to 20 mg Amlodipine + Atorvastatin > than or = to 2.5/40 mg Ezetimibe + Simvastatin 10/80 mg Simvastatin 80mg Discharge Plan Admission Admit Date/Time: 05/27/24 21:36 Primary Reason for Your Visit: Left upper extremity hematoma. Attending Provider: Aram Herbert Primary Care Provider: Kei Pineda Consulting Providers: Soumya Guadalupe Instructions Additional Instructions / Restrictions: Hold Lasix if SBP less than 90 mmHg Change carvedilol Q12 hourly at 10 AM. and 10 PM. Lasix timing changed to 12 noon Discharge Orders/Prescriptions Prescriptions: Continued amiodarone 200 mg tablet 200 mg PO DAILY Qty: 90 3RF calcium carbonate-vitamin D3 1 TABLET tablet 1 tab PO BID bupropion HCl 150 mg tablet sustained-release 12 hr 150 mg PO BID albuterol 90 mcg/actuation aerosol 90 mcg inhalation .four times day Rx Instructions: 2 puffs ergocalciferol (vitamin D2) 1,250 mcg (50,000 unit) capsule 50,000 unit PO .every tuesday Patient Comments: Take 1 capsule by mouth one time a week. vitamin B complex Tablet 1 tab PO DAILY famotidine [Acid Controller] 20 mg tablet 20 mg PO BID calcium citrate-vitamin D3 500 mg-12.5 mcg (500 unit) tablet,chewable 1 tab PO DAILY Ear Wax Removal Drops 6.5 % drops 5 drp RIGHT EAR DAILY gabapentin 100 mg capsule 100 - 200 mg PO TID polysaccharide iron complex [Ferrex 150] 150 mg iron capsule 150 mg PO DAILY acetaminophen 500 mg Tablet 1,000 mg PO TID ketoconazole 2 % shampoo 1 applic topical DAILY ketoconazole 2 % cream 1 applic topical BID montelukast 10 mg tablet 10 mg PO DAILY Patient Comments: Takes at bedtime venlafaxine 37.5 mg capsule,extended release 24hr 37.5 mg PO DAILY sennosides-docusate sodium [Senna-S] 8.6-50 mg tablet 1 tab-cap PO BID polyethylene glycol 3350 [ClearLax] 17 gram/dose powder 17 g PO DAILY magnesium chloride [Mag 64] 64 mg Tablet,Delayed Release (Dr/Ec) 128 mg PO BID 30 Days Qty: 120 0RF Changed furosemide 40 mg tablet 20 mg PO LUNCH 60 Days Qty: 60 0RF carvedilol 6.25 mg tablet 3.125 mg PO BID Qty: 180 3RF potassium chloride [Klor-Con M20] 20 mEq Tablet,Er Particles/Crystals 20 meq PO DAILY 30 Days Qty: 0 0RF Held Xarelto 20 mg tablet 20 mg PO QDAY Qty: 90 3RF Hold Instructions: Hold it until hematoma completely resolves. Follow with PCP before resumption. Consider lower dose 10 mg daily. Rx Instructions: must administer with evening meal Discontinued losartan 25 mg tablet 25 mg PO DAILY Qty: 90 3RF paroxetine HCl 30 MG tablet 40 mg PO DAILY nystatin 100,000 unit/gram powder 1 applic topical BID Referrals / Follow Up: Reilly Jansen MD [Med Staff - Active Staff] - Within 2 Weeks (For left upper extremity hematoma. Xarelto on hold.) Kei Pineda DO [Primary Care Provider] - Within 1 Week Disposition Disposition (needs filled in before D/C Order can be placed): Home Health Service Charges/Coding Visit Charges Inpatient E&M: 89357 Disch Hosp >30min
[2024-05-30 13:15] VITALS: BP 104/53; PULSE 95; RESP 18; TEMP 36.1; O2SAT 95
--- NOTE | 2024-05-30 15:31 | PHA.DC.MR.R ---
Pharmacy [place] Med Reconciliation Pharmacy Service has performed discharge medication reconciliation for this patient. The patient's discharge medication list was reviewed for discrepancies and discrepancies were resolved. Medications at Discharge Home Medications calcium 500 mg (as carbonate)-vitamin D3 5 mcg (200 unit) tablet 1 tab PO BID supplement 05/09/20 bupropion HCl 150 mg tablet,12 hr sustained-release 150 mg PO BID mood 11/02/22 albuterol 90 mcg/actuation aerosol inhaler 90 mcg inhalation .four times day lungs 03/26/23 ergocalciferol (vitamin D2) 1,250 mcg (50,000 unit) capsule 50,000 unit PO .every tuesday bones 03/26/23 famotidine 20 mg tablet (Acid Controller) 20 mg PO BID acid reflux 03/26/23 vitamin B complex 1 tab PO DAILY supp 03/26/23 acetaminophen 500 mg tablet 1,000 mg PO TID pain 01/16/24 calcium 500 mg (as citrate)-vit D3 12.5 mcg (500 unit) chewable tablet 1 tab PO DAILY supplement 01/16/24 carbamide peroxide 6.5 % ear drops (Ear Wax Removal Drops) 5 drp RIGHT EAR DAILY ear wax 01/16/24 gabapentin 100 mg capsule 100 - 200 mg PO TID pain 01/16/24 ketoconazole 2 % shampoo 1 applic topical DAILY shampoo 01/16/24 ketoconazole 2 % topical cream 1 applic topical BID cream 01/16/24 montelukast 10 mg tablet 10 mg PO DAILY COPD 01/16/24 polyethylene glycol 3350 17 gram/dose oral powder (ClearLax) 17 g PO DAILY bowel movements 01/16/24 polysaccharide iron complex 150 mg iron capsule (Ferrex) 150 mg PO DAILY iron 01/16/24 sennosides 8.6 mg-docusate sodium 50 mg tablet (Senna-S) 1 tab-cap PO BID stool softner 01/16/24 venlafaxine 37.5 mg capsule,extended release 24 hr 37.5 mg PO DAILY mood 01/16/24 magnesium chloride 64 mg (magnesium chloride) tablet,delayed release (Mag 64) 128 mg (2 x 64 mg) PO BID 30 days #120 tabs 01/17/24 amiodarone 200 mg tablet 200 mg PO DAILY #90 tabs 02/03/24 rivaroxaban 20 mg tablet (Xarelto) 20 mg PO QDAY #90 tabs 03/19/24 carvedilol 6.25 mg tablet 3.125 mg (1/2 x 6.25 mg) PO BID #180 tabs 05/30/24 furosemide 40 mg tablet 20 mg (1/2 x 40 mg) PO LUNCH leg swelling 60 days #60 tabs 05/30/24 potassium chloride 20 mEq tablet,extended release(part/cryst) (Klor-Con M) 20 meq PO DAILY supplement 30 days #0 tabs 05/30/24
== END 2024-05-30 14:24 | disposition home health service (06) ==
LOC: ED 21:07 → MS3 21:43
PROVIDERS: Admitting Provider Family Medicine; Emergency Provider Emergency Medicine; PCP Student in an Organized Health Care Education/Training Program; Visit Provider Internal Medicine
DX: S40.022A Contusion of left upper arm, initial encounter (principal); J44.9 Chronic obstructive pulmonary disease, unspecified; I48.0 Paroxysmal atrial fibrillation; I42.0 Dilated cardiomyopathy; K21.9 Gastro-esophageal reflux disease without esophagitis; E66.9 Obesity, unspecified; I10 Essential (primary) hypertension; Z87.891 Personal history of nicotine dependence; E78.5 Hyperlipidemia, unspecified; Z79.01 Long term (current) use of anticoagulants; D68.32 Hemorrhagic disorder due to extrinsic circulating anticoagulants; G47.33 Obstructive sleep apnea (adult) (pediatric); Z79.899 Other long term (current) drug therapy; Z98.84 Bariatric surgery status; W19.XXXA Unspecified fall, initial encounter; D50.9 Iron deficiency anemia, unspecified; F41.9 Anxiety disorder, unspecified; F32.A Depression, unspecified; Z68.33 Body mass index [BMI] 33.0-33.9, adult; N17.9 Acute kidney failure, unspecified; I95.9 Hypotension, unspecified
CPT/HCPCS: 36415; 73060; 73070; 80048; 80053; 85025; 94640; 94668; 96361; 96365; 96366; 96375; 97110; 97162; 97166; 97530; 99221; 99285; J7030; J7120; A4216; G0378; J2405